=== PATIENT | female | born 2000 | race African-American/Black ===

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

== ENCOUNTER 2021-02-01 12:15 | Observation (INO) | payer OTHER, MEDICAID, SELFPAY ==
[2021-02-01] VITALS (11 sets, daily range): BP systolic 119–145; BP diastolic 68–100; PULSE 73–108; RESP 18–23; TEMP 36–37.6; O2SAT 96–100; BMI 36.8; BMI 36.9; BMI 35.9
--- NOTE | 2021-02-01 12:30 | ED.RN ---
dr. briceno notified of pt sx and sx onset at 1224, reports he will be in to evaluate pt, not to call stroke alert at this time.
[2021-02-01 12:35] LABS: Bedside Glucose 90 mg/dL (70-110)
--- NOTE | 2021-02-01 12:41 | EKG12_ITS ---
Test Reason : STROKE TEAM Blood Pressure : / mmHG Vent. Rate : 069 BPM Atrial Rate : 069 BPM P-R Int : 132 ms QRS Dur : 080 ms QT Int : 390 ms P-R-T Axes : 031 003 003 degrees QTc Int : 417 ms Normal sinus rhythm Normal ECG Confirmed by DARINEL MACIAS, LESLIE ([id number]), make up editor DONALD VALDES ([id number]) on 02/06/2021 2:18:50 PM Referred By: KELY Confirmed By:LESLIE TENA MD
--- NOTE | 2021-02-01 12:41 | CT_ITS ---
STUDY: CT HEAD STROKE PROTOCOL W/O CONTRAST INJECTION REASON FOR EXAM: Female, 20 years old. Neuro deficit, acute, stroke suspected RADIATION DOSAGE (If Supplied By Facility): CTDIvol = ( 44.99 ) mGy, DLP = ( 748.30 ) mGycm TECHNIQUE: Transaxial CT imaging of the brain was performed without administration of intravenous contrast material. Individualized dose optimization techniques were used for this CT. COMPARISON: Comparison is made with prior examination dated 10/09/2011. FINDINGS: Normal soft tissue structures. Normal calvarium. Normal size ventricles and extra-axial spaces for the patient''s age. Normal white matter tracts of the cerebral hemispheres. Normal basal ganglia and thalami. Normal brainstem. Normal cerebellum. There is no intracranial hemorrhage. There are no findings of an acute ischemic infarction. Minimal mucosal thickening along the posterior medial inferior aspect of the right maxillary sinus. CT/STROKE Brain/Head without Cont IMPRESSION: Normal unenhanced CT scan of the brain. N.B. : The above information has been verbally conveyed by Brock Augustin MD to RICKY EDGE on 02/01/2021 12:53:46 (ET). Electronically Signed: Brock Augustin MD at 12:57 EST , Service support ,
--- NOTE | 2021-02-01 12:41 | RAD_ITS ---
STUDY: X-RAY CHEST REASON FOR EXAM: Female, 20 years old. Neuro deficit, acute, stroke suspected TECHNIQUE: Single AP portable view of the chest. COMPARISON: Comparison is made with prior study dated 03/11/2012. FINDINGS: EKG electrodes are seen. The lungs are clear and expanded. There is no demonstrated pleural abnormality. Normal size heart. Normal mediastinum and tiffanie. Normal visualized pulmonary arteries. Normal visualized aortic arch and descending thoracic aorta. Normal visualized thoracic spine. Normal visualized ribs, clavicles, and shoulders. There is no demonstrated abnormality of the visualized soft tissue structures of the upper abdomen. RAD/Chest 1 View IMPRESSION: Normal x-ray examination of the chest. Electronically Signed: Brock Augustin MD at 13:50 EST , Service support ,
--- NOTE | 2021-02-01 12:41 | CT_ITS ---
STUDY: CTA HEAD AND NECK WITH CONTRAST REASON FOR EXAM: Female, 20 years old. Neuro deficit, acute, stroke suspected RADIATION DOSAGE (If Supplied By Facility): CTDIvol = ( 17.94 ) mGy, DLP = ( 687.30 ) mGycm TECHNIQUE: CT angiography was performed with a multi-detector CT scanner. Data acquisition was obtained from the skull base through the vertex following intravenous administration of IV 75mL [id number]-[id number]. MIP images were reconstructed from the axial data set. Post-processing of the angiographic images was performed, with multiplanar reformation and 3D reconstruction. Individualized dose optimization techniques were used for this CT. COMPARISON: No relevant priors. FINDINGS: Normal bilateral petrous carotid arteries. Normal right cavernous carotid artery with a normal supraclinoid bifurcation. Normal left cavernous carotid artery with a normal supraclinoid bifurcation. Normal right A1 segments of the anterior cerebral artery. Normal left A1 segments of the anterior cerebral artery. Normal intact anterior communicating artery (ACOM). Normal bilateral A2 segments of the anterior cerebral arteries. Normal right M1 and M2 segments of the middle cerebral arteries, with a normal M1 bifurcation. Normal left M1 and M2 segments of the middle cerebral arteries, with a normal M1 bifurcation. Normal right posterior communicating artery (PCOM). Normal left posterior communicating artery (PCOM). Normal bilateral vertebral arteries. Normal basilar artery with a normal basilar bifurcation. The visualized bilateral superior cerebellar (SCA) arteries are normal. Normal bilateral P1, P2 and visualized P3 segments of the posterior cerebral arteries. There is no demonstrated aneurysm of the [place] of [place]. There is no demonstrated abnormality of the visualized brain. AORTIC ARCH: Normal visualized aortic arch. Normal origins of the brachiocephalic, left common carotid, and left subclavian arteries. RIGHT CAROTID ARTERIES: Normal right common carotid artery (CCA). Normal right common carotid bulb. Normal origin of the right internal carotid (ICA) artery without a hemodynamically significant stenosis. Normal visualized cervical portion of the right internal carotid artery. Normal origin of the right external carotid artery (ECA). LEFT CAROTID ARTERIES: Normal left common carotid artery (CCA). Normal left common carotid bulb. Normal origin of the left internal carotid (ICA) artery without a hemodynamically significant stenosis. Normal visualized cervical portion of the left internal carotid artery. Normal origin of the left external carotid artery (ECA). VERTEBRAL ARTERIES: Normal bilateral vertebral arteries. CT/STROKE CTA Head AND Neck W/Con IMPRESSION: Normal CTA Head and neck with contrast. N.B. : The above information has been verbally conveyed by Brock Augustin MD to RICKY EDGE on 02/01/2021 13:03:53 (ET). Electronically Signed: Brock Augustin MD at 13:05 EST , Service support ,
[2021-02-01 12:50] LABS: Absolute Lymphocyte Count 1.48 X10^3/uL (0.83-4.51); Absolute Neutrophil Count 4.4 X10^3/uL (2.0-7.7); Basophil# 0.05 X10^3/uL; Basophil% 0.8 % (0-1); Eosinophil# 0.12 X10^3/uL; Eosinophils% 1.8 % (0-5); Hematocrit 40.5 % (37-47); Lymphocyte # 1.48 X10^3/ul (4.0); Lymphocyte % 22.7 % (19-41); Mean Corp Hgb Conc 32.1 g/dL (32-36); Mean Corpuscular Hgb 28.1 pg (27.0-32.0); Mean Corpuscular Volume 87.5 fL (81-99); Mean Platelet Vol. 9.4 fl (6.2-12.0); Monocyte# 0.49 X10^3/uL; Monocyte% 7.5 % (0-10); NRBC Flagged by Analyzer 0 % (0-5); Neutrophil # 4.35 X10^3/uL (2.7-7.7); Neutrophil % 66.9 % (47-70); Platelet Count 360 K/mm3 (150-450); RBC Distribution Width CV 13.2 % (11.6-14.6); RBC Distribution Width SD 42.3 fl (35.1-43.9); Red Blood Count 4.63 M/mm3 (4.2-5.4); White Blood Count 6.5 K/mm3 (4.4-11.0)
[2021-02-01 12:58] LABS: Prothrombin Time (Protime)PT. 13.2 SECONDS (11.7-14.9)
[2021-02-01 12:59] LABS: Partial Thromboplast Time 28.4 Seconds (24.1-36.2)
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
[2021-02-01 13:07] LABS: Anion Gap 5 (5-15); BUN 10 mg/dL (7-18); BUN/Creat Ratio 12.2 RATIO (10-20); Calcium,Total 8.6 mg/dL (8.5-10.1); Chloride 110 mmol/L (98-107); Creatinine, Serum 0.82 mg/dL (0.55-1.02); EST Glomerular Filtration Rate 95 mL/min (>60); Est Glom Filt Rate - Afr Amer 115 mL/min (>60); Estimated Creatinine Clearance 129.96 ml/min; Glucose 95 mg/dL (74-106); Sodium Level 140 mmol/L (136-145)
--- NOTE | 2021-02-01 14:47 | ED.RN ---
per dr. briceno, [facility] can be discontinued.
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
--- NOTE | 2021-02-01 15:42 | MRI_ITS ---
STUDY: MRI BRAIN WITHOUT CONTRAST REASON FOR EXAM: Female, 20 years old. right sided weakness TECHNIQUE: Standardized multiplanar fat and water weighted pulse sequences were obtained. COMPARISON: CT of the brain 02/01/2021. FINDINGS: Normal size of the ventricles and extra-axial spaces for the patient''s age. Normal white matter tracts of the supratentorial brain. Normal bilateral basal ganglia. Normal thalami. There is no extra-axial fluid accumulation. Normal flow voids within the major intracranial circulation suggesting patency by spin echo criteria. Normal sella turcica, pituitary gland, infundibular stalk, optic chiasm and hypothalamus. Normal tectal plate and pineal gland. Normal midbrain, roberto carlos and medulla. Normal cerebellum. Normal basal cisterns. Normal bilateral temporal bones. Normal bilateral internal auditory canals. No demonstrated orbital abnormality, within the constraints of a routine brain study. Minor mucosal thickening in the right maxillary sinus Normal calvarium and skull base. Normal visualized soft tissue structures. Normal visualized upper cervical spine. MRI/Brain without Contrast IMPRESSION: Normal unenhanced MRI of the brain. Minor right maxillary sinus disease Electronically Signed: David Alberts MD at 19:35 EST , Service support ,
--- NOTE | 2021-02-01 15:53 | CHAPLAIN ---
Type of Pastoral Visit ___ Initial Visit ___ Follow-up Visit ___ On-call Visit ___ General Patient Visit ___ Spiritual Assessment ___ Family Conference ___ Bereavement _x__ Rapid Response ___ Code Blue ___ Other (describe below) Pastoral Care Referral From ___ Patient ___ Family ___ Nurse ___ Physician ___ Brand Activation Manager ___ .Net Developer _x__ Other (describe below) Sacrament/Intervention ___ Active listening ___ Anointing ___ Methodist ___ Bereavement ___ Communion ___ Judy exploration ___ ___ Life review ___ Prayer ___ Reconciliation ___ Sacrament of Sick ___ Supportive presence ___ Wedding ___ Other (describe below) Pastoral Comments response to stroke alert; pt is alert and awake and is being transported for CT; no family available; no other needs at this time
[2021-02-01 16:09] LABS: Internal QC Validated? YES +Cl - CLEAR BKGD; Pregnancy, Serum, hCG Quali. NEGATIVE Negative
[2021-02-01] MEDS: Acetaminophen 325 MG Tablet 650 MG PO (16:56)
[2021-02-01] MEDS: Ondansetron 4 MG/2 ML Vial IV (16:56)
[2021-02-01] MEDS: 0.9% Saline Lock 10 ML Syringe IV (17:01)
[2021-02-01] MEDS: lamoTRIgine 25 MG Tablet PO (22:27)
[2021-02-01] MEDS: FLUoxetine 10 MG Capsule PO (22:27)
[2021-02-01] MEDS: DiphenhydrAMINE 50 MG/ML Syringe IV (23:31)
[2021-02-01] MEDS: Metoclopramide 10 MG/2 ML Vial IV (23:31)
[2021-02-02] VITALS (7 sets, daily range): BP systolic 95–139; BP diastolic 59–81; PULSE 70–103; RESP 14–16; TEMP 36.4–37; O2SAT 97–100
[2021-02-02 06:40] LABS: Cholesterol 133 mg/dL (200); High Density Lipoprotein 34 mg/dL; Thyroid Stim Hormone (TSH) 1.67 uIU/mL (0.358-3.74); Triglycerides 82 mg/dL; Very Low Density Lipoprotein 16 mg/dL (5-40)
--- NOTE | 2021-02-02 11:52 | TELEMED_ITS ---
[facility] Tele[facility] has confirmed receipt of a request for visit. This document confirms receipt of the order initiating the consult. To find the results of the consultation, please view the patient's reports for the scanned Telemed Consult.
--- NOTE | 2021-02-02 11:53 | DCINST_ITS ---
- Discharge Diagnoses Current Active Problems: Current Active and Chronic Problems (Last Updated 02/01/21 @ 15:[address] Karthik Rider DO) Right sided weakness (Acute) Reason(s) for Visit for Discharge Instructions: Right sided numbness You will use the following diet at home:: Regular Your food should be the consistency of: Regular Your liquids should be the consistency of: Regular/Thin Discharge Activity: Return to Normal Activity Additional Instructions: Continue to take all your medications as prescribed. Allergies/Adverse Reactions: Allergies fluoxetine [From Prozac] Allergy (Verified 02/01/21 12:15) Other Penicillins Allergy (Verified 02/01/21 12:15) Rash Medications to take at Discharge Albuterol IH (ProAir) [Proair Hfa] 1 - 2 puff INHALATION Q4H PRN PRN 12/17/20 Fluoxetine [Prozac] 10 mg PO DAILY 12/17/20 Lamotrigine [Lamictal] 25 mg PO DAILY 02/01/21 Primary Care Physician: Debra Smith GAS APPLIANCE SERVICER, GAS APPLIANCE SERVICER-C [Primary Care Provider] - Please follow up with your Primary Care Physician in: within 1-2 weeks Test Results: Test results from this visit will be discussed in further detail at your follow- up appointment, if applicable. Please Follow Up With: Fidencio Steiner MD When: within 2 weeks Proposed Discharge Date: 02/02/21
--- NOTE | 2021-02-02 13:45 | CASEMGMT ---
Social Work SW met with pt in room and introduced self and role of SW. Pt presenting with stroke like symptoms. PHQ9 depression assessment completed with pt score of 0/27. Pt denies any depression or thoughts of harming themselves nor concerns with returning home. SW educated pt on association of stroke and depression and encouraged pt that if she feels a decline in mood to contact PCP or counselor. Pt voicing financial concerns at this time. Pt is listed as having insurance however, pt states she recently when to PRN at her job and lost insurance eligibility. SW provided Medicaid information including application and phone number to apply online. Patient Financial Services updated on pt insurance situation. SW provided resources for prescription assistance. Pt is appreciative of information. No further SW needs at this time. CAROLINE Leblanc
--- NOTE | 2021-02-13 13:13 | DS.PCM_ITS ---
Discharge Date and Diagnosis - Problem List Patient Problems: Active and Suspected Problems (Last Updated 02/01/21 @ 15:[address] Karthik Rider DO) Right sided weakness (Acute) Date of Admission: 02/01/21 Date of Discharge: 02/02/21 - Primary Discharge Diagnosis Acute Problems: Active Problems (Last Updated 02/01/21 @ 15:[address] Karthik Rider DO) Right sided weakness (Acute), likely secondary to atypical migraine versus conversion disorder Acute stroke ruled out Hospital Course and Treatment Imaging Results: Clinical Impression(s) from Imaging Studies Brain CT 02/01/21 12:41 IMPRESSION: Normal unenhanced CT scan of the brain. N.B. : The above information has been verbally conveyed by Brock Augustin MD to RICKY EDGE on 02/01/2021 12:53:46 (ET). Electronically Signed: Brock Augustin MD at 12:57 EST , Service support , ADDENDUM: 02/01/21 1304 IMPRESSION: Normal unenhanced CT scan of the brain. N.B. : The above information has been verbally conveyed by Brock Augustin MD to RICKY EDGE on 02/01/2021 12:53:46 (ET). Electronically Signed: Brock Augustin MD at 12:57 EST , Service support , Chest X-Ray 02/01/21 12:41 IMPRESSION: Normal x-ray examination of the chest. Electronically Signed: Brock Augustin MD at 13:50 EST , Service support , Head/Neck CTA 02/01/21 12:41 IMPRESSION: Normal CTA Head and neck with contrast. N.B. : The above information has been verbally conveyed by Brock Augustin MD to RICKY EDGE on 02/01/2021 13:03:53 (ET). Electronically Signed: Brock Augustin MD at 13:05 EST , Service support , ADDENDUM: 02/01/21 1312 IMPRESSION: Normal CTA Head and neck with contrast. N.B. : The above information has been verbally conveyed by Brock Augustin MD to RICKY EDGE on 02/01/2021 13:03:53 (ET). Electronically Signed: Brock Augustin MD at 13:05 EST , Service support , Brain MRI 02/01/21 15:42 IMPRESSION: Normal unenhanced MRI of the brain. Minor right maxillary sinus disease Electronically Signed: David Alberts MD at 19:35 EST , Service support , Operations: None Procedures: None Summary of Care Provided: The patient is a 21 year old F with past medical history of migraine headaches, traumatic brain injury, anxiety disorder who presented with 1 day history of headache and some right-sided weakness. Patient went to bed the night before with a headache and right-sided weakness. Her headache was similar to what she does have from time to time. She woke up on the morning of admission, with persistent right-sided weakness and resolved headache. The weakness involves her right face arm and leg. It persisted resulting in her into the emergency department. CT of the head as well as CTA of the head and neck was unremarkable. Patient was seen by [facility] neurology who advised admission and MRI. Patient admits to being under a lot of psychosocial stress. She has a test coming up the next day. She was admitted to the telemetry floor with no acute events. She underwent MRI of the brain that was unremarkable. Patient admitted to feeling much better and was referred to follow-up in the outpatient with outpatient neurology. Patient Problems: Active and Suspected Problems (Last Updated 02/01/21 @ 15:[address] Karthik Rider DO) Right sided weakness (Acute) Subjective: On the day of discharge, patient was seen and examined. Denies any new complaints. All of her presenting right sided weakness have resolved. - Physical Exam Vitals/I&O's: Vital Signs Temp Pulse Resp BP Pulse Ox 97.8 F 103 H 14 139/60 H 98 02/02/21 16:00 02/02/21 16:00 02/02/21 16:00 02/02/21 16:00 02/02/21 16:00 Oxygen Delivery Method Room Air Weight: 72.711 kg Body Mass Index (BMI) 35.9 Finger Stick Blood Glucose 90 General: Alert, Oriented x3, Cooperative, No apparent distress HEENT: Atraumatic, PERRLA, EOMI, Normocephalic Oral: Moist Mucosa Neck: Supple Lungs: Clear to auscultation, Normal air movement Cardiovascular: Regular rate, Regular Rhythm, Normal S1, Normal S2, No murmurs Abdomen: Bowel Sounds Present, Soft, Non Tender, Non-Distended, No Hepato- splenomegaly Extremities: No edema Skin: No rashes Musculoskeletal: No Tenderness to Palpation of Joints or Extremities Lymphatic: No Cervical, Supraclavicular, or Inguinal Adenopathy Neurological: Cranial nerves II-XII grossly intact, Neuro grossly intact Psych/Mental Status: Normal Affect, Appropriate Discharge Diet: Low fat/ Low Cholesterol, 2000 mg Sodium Diet Discharge Activity: Return to Normal Activity Home Medications: Medications to take at Discharge Albuterol IH (ProAir) [Proair Hfa] 1 - 2 puff INHALATION Q4H PRN PRN 12/17/20 Fluoxetine [Prozac] 10 mg PO DAILY 12/17/20 Lamotrigine [Lamictal] 25 mg PO DAILY 02/01/21 Primary Care Physician: Debra Smith FILLER BLENDER, FILLER BLENDER-C [Primary Care Provider] - Please follow up with your Primary Care Physician in: within 1-2 weeks Please Follow Up With: Fidencio Steiner MD When: within 2 weeks Disposition: Home Minutes spent on discharge:: 40 Patient Condition:: Stable Medical Necessity - Tobacco Use Smoking Status: Never smoker Tobacco Use: Secondhand Meaningful Use Info Meaningful Use Diagnoses (Choose all that apply): None applicable OBSV E&M: 50856 Observation care discharge
== END 2021-02-02 11:51 | disposition home or self-care (01) ==
LOC: ED 13:50 → PCU 15:20
PROVIDERS: Emergency Provider Emergency Medicine; PCP Nurse Practitioner Family; Visit Provider Internal Medicine
DX: R53.1 Weakness (principal); R20.0 Anesthesia of skin; F41.9 Anxiety disorder, unspecified; Z87.820 Personal history of traumatic brain injury; Z79.899 Other long term (current) drug therapy; F32.9 Major depressive disorder, single episode, unspecified
CPT/HCPCS: 36415; 70450; 70496; 70498; 70551; 71045; 80048; 80061; 82962; 84443; 84484; 84703; 85025; 85610; 85730; 92610; 93005; 94762; 96374; 96375; 96376; 99218; 99284; Q9967; A4216; G0378; J2405

== ENCOUNTER 2021-07-04 21:50 | Emergency (ER) | payer MEDICAID, SELFPAY ==
[2021-02-01 16:37] VITALS: BMI 35.9
[2021-07-04 21:51] VITALS: BP 129/81; PULSE 84; RESP 16; TEMP 36.8; O2SAT 100; BMI 39.4
--- NOTE | 2021-07-04 22:04 | EDS_ITS ---
HPI History of Present Illness Chief Complaint: Numb/Ting Informant: patient Narrative Narrative: Patient is a 21-year-old female with a past medical history of atypical migraines who is currently 3 months who presents to the emergency department for feeling numbness and tingling all over. She states that this started around 2 hours prior to coming in. She is never had this happen before. She denies any significant headache associated with this. No vision change. She denies any chest pain, shortness of breath or heart palpitations. No back pain. No urinary symptoms. Her symptoms have not been unilateral. She does not know any aggravating or relieving symptoms. She has not tried anything for this. [facility] Medical History (Updated 07/04/21 @ 22:[address] Kirt Griffin DO) Anxiety Depression Diabetes Migraine TBI (traumatic brain injury) Home Medications albuterol sulfate 1 - 2 puff INHALATION Q4H PRN PRN 12/17/20 [History Last Taken Unknown] fluoxetine 10 mg PO DAILY 12/17/20 [History Last Taken 01/31/21] lamotrigine 25 mg PO DAILY 02/01/21 [History Last Taken 01/31/21] Allergy/AdvReac Type Severity Reaction Status Date / Time fluoxetine [From Prozac] Allergy Other Verified 02/01/21 12:15 Penicillins Allergy Rash Verified 02/01/21 12:15 Social History Smoking Status: Never smoker ROS ROS ED Constitutional Constitutional ED: Denies chills or fever(s) Eyes Eyes: Denies change in vision ENT ENT ED: Denies epistaxis or rhinorrhea Cardiovascular Cardiovascular: Denies chest pain or palpitations Respiratory/Chest Respiratory/Chest: Denies cough or dyspnea Gastrointestinal Gastrointestinal: Denies abdominal pain, diarrhea, nausea or vomiting Genitourinary Genitourinary ED: Denies dysuria, hematuria or urinary frequency Musculoskeletal Musculoskeletal: Denies back pain or neck pain Integumentary Denies rash Neurologic Neurologic: Reports paresthesias; Denies dizziness, headache(s) or weakness EXAM Physical Exam Const Vital Signs: 07/04/21 21:51 07/04/21 22:30 07/04/21 23:23 Temperature 98.2 F Temperature Source Oral Pulse Rate 84 83 89 Respiratory Rate 16 18 16 Blood Pressure 129/81 H 138/99 H 129/91 H Blood Pressure Mean 97 112 Pulse Ox 100 95 97 Oxygen Delivery Method Room Air Positive well nourished and well developed General Appearance ED: well developed and NAD HEENT Reports normocephalic, head/scalp atraumatic and moist mucous membranes Eyes PERRL and EOMs intact bilaterally Neck supple Resp normal respiratory effort and clear to auscultation bilaterally Auscultation: Negative for rales, rhonchi or wheezes Cardio regular rate, regular rhythm and no murmurs GI normal to inspection, nondistended, normoactive bowel sounds and non-tender Palpation: soft; Negative for guarding or rebound tenderness present Extremity normal to inspection General Extremety ED: Negative for edema or tenderness General Extremity: Negative for edema Neuro oriented x3, CN's II-XII intact bilaterally and no sensory deficits noted Sensorium / Orientation: alert Motor Exam: strength 5/5 throughout Psych mental status grossly normal Skin no rashes or lesions noted MDM MDM MDM Narrative Medical decision making narrative: Patient presents to the emergency department for numbness and tingling diffusely over her body. On arrival to the ED vital signs within normal limits. She is currently 3 months . She states that she has not had any issues with this except for nausea. She has a benign physical exam without any focal neurological deficits. She does have a history of atypical migraines but not having a headache at this time. Patient's lab work shows a mild elevation of her white blood cell count but she has no infectious symptoms. The rest of her lab work did not reveal a sign ificant acute abnormality. No electrolyte disturbance. No elevation of liver enzymes. Urine does not show any signs of infection or proteinuria. She has a benign physical exam. On reevaluation she is resting comfortably. This time will discharge home in stable condition. Return precautions are reviewed with her. She otherwise is to follow-up with her PCP. Lab Data Labs: Laboratory Results - last 24 hr 07/04/21 07/04/21 07/04/21 22:13 22:13 22:19 WBC 12.1 H RBC 4.43 Hgb 12.5 Hct 38.6 MCV 87.1 MCH 28.2 MCHC 32.4 RDW Std Deviation 42.2 RDW Coeff of Raj 13.2 Plt Count 387 MPV 9.9 Immature Gran % (Auto) 0.300 Neut % (Auto) 73.5 H Lymph % (Auto) 17.4 L Divide % (Auto) 7.4 Eos % (Auto) 1.1 Baso % (Auto) 0.3 Absolute Neuts (auto) 8.9 H Absolute Lymphs (auto) 2.10 Nucleated RBC % 0 Sodium 135 L Potassium 3.5 Chloride 104 Carbon Dioxide 22.0 Anion Gap 9 BUN 9 Creatinine 0.63 Estim Creat Clear Calc 179.67 Est GFR (MDRD) Af Amer 154 Est GFR (MDRD) Non-Af 127 BUN/Creatinine Ratio 14.2 Glucose 87 Calcium 9.0 Total Bilirubin 0.30 AST 27 ALT 48 Alkaline Phosphatase 78 Total Protein 8.1 Albumin 4.1 Globulin 4.0 Albumin/Globulin Ratio 1.0 Urine Color Yellow Urine Clarity Clear Urine pH 6.5 Ur Specific [place] 1.010 Urine Protein Negative Urine Glucose (UA) Normal Urine Ketones Negative Urine Occult Blood Negative Urine Nitrite Negative Urine Bilirubin Negative Urine Urobilinogen Normal Ur Leukocyte Esterase Negative Urine RBC 0 SEEN Urine WBC 0 SEEN Ur Squamous Epith Cells 0-5 SEEN Urine Bacteria 0 SEEN Urine Mucus 0 SEEN Discharge Plan Triage Chief Complaint: Numb/Ting ED Provider: Kirt Griffin Dx/Rx/DC Orders Clinical Impression: Paresthesias Instructions: ED Paraesthesias Prescriptions: No Action fluoxetine 10 MG capsule 10 mg PO DAILY RF: 0 albuterol sulfate 1 PUFF inhaler 1 - 2 puff INHALATION Q4H PRN PRN (Reason: Wheezing) RF: 0 lamotrigine 25 MG tablet 25 mg PO DAILY RF: 0 Primary Care Provider: Debra Smith NP Referrals: Debra Smith NP, STUDIO MODEL-C [Primary Care Provider] - 3-5 Days Disposition Disposition: Home, Self Care Discharge Date/Time: 07/04/21 23:24
[2021-07-04 22:21] LABS: Absolute Neutrophil Count 8.9 X10^3/uL (2.0-7.7); Basophil# 0.04 X10^3/uL; Basophil% 0.3 % (0-1); Eosinophil# 0.13 X10^3/uL; Eosinophils% 1.1 % (0-5); Hematocrit 38.6 % (37-47); Hemoglobin 12.5 g/dL (12.0-15.0); Lymphocyte % 17.4 % (19-41); Mean Corp Hgb Conc 32.4 g/dL (32-36); Mean Corpuscular Hgb 28.2 pg (27.0-32.0); Mean Corpuscular Volume 87.1 fL (81-99); Mean Platelet Vol. 9.9 fl (6.2-12.0); Monocyte% 7.4 % (0-10); NRBC Flagged by Analyzer 0 % (0-5); Neutrophil # 8.89 X10^3/uL (2.7-7.7); Neutrophil % 73.5 % (47-70); Platelet Count 387 K/mm3 (150-450); RBC Distribution Width CV 13.2 % (11.6-14.6); RBC Distribution Width SD 42.2 fl (35.1-43.9); Red Blood Count 4.43 M/mm3 (4.2-5.4); White Blood Count 12.1 K/mm3 (4.4-11.0)
[2021-07-04 22:26] LABS: Bacteria 0 SEEN /hpf (None Seen); Mucous, Urine 0 SEEN /hpf (<or=2+); Red Blood Cells-Urine 0 SEEN /hpf (0-5); White Blood Cells 0 SEEN /hpf (0-5)
[2021-07-04 22:30] VITALS: BP 138/99; PULSE 83; RESP 18; O2SAT 95
[2021-07-04 22:31] LABS: Color, Urine Yellow (Yellow); Glucose, Dipstick Normal (Normal); Ketone-Dipstick Negative (Negative); Leukocyte Esterase-Dipstick Negative /ul (Negative); Nitrite-Dipstick Negative (Negative); Occult Blood-Urine Negative /ul (Negative); Protein-Dipstick Negative (Negative); Urine Bilirubin Dipstick Negative (Negative); Urine Clarity Clear (Clear); Urine Urobilinogen Normal (Normal); Urine pH 6.5 (5.0 - 8.0)
[2021-07-04 22:37] LABS: Squamous Epithelial Cells - UA 0-5 SEEN /hpf (5-10)
[2021-07-04 22:38] LABS: AST(SGOT) 27 U/L (15-37); Alanine Aminotransfer ALT/SGPT 48 U/L (13-56); Albumin, Serum 4.1 g/dL (3.2-5.0); Alkaline Phosphatase 78 U/L (45-117); Anion Gap 9 (5-15); BUN 9 mg/dL (7-18); BUN/Creat Ratio 14.2 RATIO (10-20); Chloride 104 mmol/L (98-107); Creatinine, Serum 0.63 mg/dL (0.55-1.02); EST Glomerular Filtration Rate 127 mL/min (>60); Est Glom Filt Rate - Afr Amer 154 mL/min (>60); Estimated Creatinine Clearance 179.67 ml/min; Glucose 87 mg/dL (74-106); Potassium 3.5 mmol/L (3.5-5.1); Protein, Total 8.1 g/dL (6.4-8.2); Sodium Level 135 mmol/L (136-145)
[2021-07-04 23:23] VITALS: BP 129/91; PULSE 89; RESP 16; O2SAT 97
== END 2021-07-04 23:24 | disposition home or self-care (01) ==
PROVIDERS: Emergency Provider Emergency Medicine; PCP Nurse Practitioner Family
DX: R20.2 Paresthesia of skin (principal); E11.9 Type 2 diabetes mellitus without complications; F32.9 Major depressive disorder, single episode, unspecified; F41.9 Anxiety disorder, unspecified; Z79.899 Other long term (current) drug therapy
CPT/HCPCS: 80053; 81001; 85025; 99285; A4216

== ENCOUNTER 2021-08-31 13:40 | Emergency (ER) | payer MEDICAID, SELFPAY ==
[2021-08-31 13:40] VITALS: BP 151/77; PULSE 104; RESP 18; TEMP 37.2; O2SAT 99; BMI 38.0
[2021-08-31 14:55] VITALS: BP 132/90; PULSE 95; RESP 18; O2SAT 98
--- NOTE | 2021-08-31 15:02 | EDS_ITS ---
HPI History of Present Illness Chief Complaint: Nausea/Vomiting Informant: patient Narrative Narrative: 17 weeks gestation overseen by Dr. Dumont in [place] presents nausea vomiting diarrhea starting this morning. Total of 8 episodes of vomiting last time was 2 hours ago. Only tried a little fluids this morning. Took Phenergan this morning with no relief. 2 bouts of diarrhea. Nonbloody. Ate pork chops yesterday with her significant other and he is not sick. Denies abdominal pain. Denies headache. Denies cough. Denies urinary symptoms. Denies any vaginal symptoms. History of morning sickness with her . Blood pressure elevated in triage initially, she states has not been told with elevated blood pressure during . Reports was seen 2 days ago at [place] ED due to upper abdominal cramping resolved. She states urine and heart tones were done at the facility. Prior similar symptoms: Yes PFSH PFSH Medical History Anxiety Depression Diabetes Migraine TBI (traumatic brain injury) Home Medications albuterol sulfate 1 - 2 puff INHALATION Q4H PRN PRN 12/17/20 [History Last Taken Unknown] vitamin no.138-folic acid 400 mcg-dha 25 mg chewable tablet 1 tab PO DAILY tab 07/10/21 [History Last Taken Unknown] sertraline 50 mg tablet 25 mg PO DAILY tab 07/10/21 [History Last Taken Unknown] metoclopramide HCl [Reglan] 10 mg PO Q6H PRN #10 tab 08/31/21 [Rx Last Taken Unknown] promethazine 25 mg [place] Q6H PRN #10 ea 08/31/21 [Rx Last Taken Unknown] Allergy/AdvReac Type Severity Reaction Status Date / Time Penicillins Allergy Rash Verified 08/31/21 13:44 Surgical History History of appendectomy Social History adopted: Yes Smoking Status: Never smoker Electronic Cigarette Use: not used second hand exposure: No alcohol intake: never substance use type: does not use ROS ROS ED Constitutional Constitutional ED: Denies chills, fever(s) or sweats Eyes Eyes: Denies change in vision ENT ENT ED: Denies dysphagia or sore throat Cardiovascular Cardiovascular: Denies chest pain, leg edema, palpitations or racing heartbeat Respiratory/Chest Respiratory/Chest: Denies cough, dyspnea or dyspnea on exertion Gastrointestinal Gastrointestinal: Reports diarrhea, nausea and vomiting; Denies abdominal pain Genitourinary Genitourinary ED: Denies dysuria, hematuria or urinary frequency Musculoskeletal Musculoskeletal: Denies back pain, extremity pain or neck pain Integumentary Denies rash or wounds Neurologic Neurologic: Denies headache(s), paresthesias or weakness EXAM Physical Exam Const Vital Signs: 08/31/21 13:40 08/31/21 14:55 08/31/21 16:05 Temperature 98.9 F Temperature Source Temporal Pulse Rate 104 H 95 85 Respiratory Rate 18 18 16 Blood Pressure 151/77 H 132/90 H Blood Pressure Mean 101 104 Pulse Ox 99 98 98 Oxygen Delivery Method Room Air Room Air Room Air 08/31/21 18:04 Temperature Temperature Source Pulse Rate Respiratory Rate 16 Blood Pressure 129/91 H Blood Pressure Mean Pulse Ox Oxygen Delivery Method Positive well nourished and well developed General Appearance ED: well developed and NAD HEENT Reports moist mucous membranes normocephalic and atraumatic Eyes PERRL, EOMs intact bilaterally and conjunctivae normal General Eye ED: Yes normal appearance of both eyes Neck no lymphadenopathy and supple General: Negative for tenderness Chest Wall Chest: Negative for tenderness Resp normal respiratory effort and normal air movement Effort and Inspection: symmetric chest movement; Negative for respiratory distress Cardio regular rate, regular rhythm and no murmurs Peripheral Pulses: pulses 2+ throughout GI normal to inspection, nondistended, normoactive bowel sounds and non-tender Palpation: Negative for guarding or rebound tenderness present Back/Spine no CVA tenderness and no thoracic nor lumbar tenderness Extremity normal to inspection General Extremety ED: Negative for edema or tenderness General Extremity: Negative for edema Neuro oriented x3 and no sensory deficits noted Sensorium / Orientation: awake and alert Skin no rashes or lesions noted and no wounds MDM MDM MDM Narrative Medical decision making narrative: Patient nontender abdomen. She had transient elevated blood pressure initially in triage. Recheck 130s systolic. She denied any headache today. heart tones 158. Electrolytes are normal. Urine noted ketones. She was given a liter of fluids and Reglan. To drink oral intake had transient nausea return. However no vomiting. Additional Reglan was given. She felt much better. Additional prescription for Phenergan suppositories and oral Reglan was used. Discussed with patient follow with her OB and discussing her elevated blood pressure. She has no hypertension history. She is discharged with outpatient follow-up. All questions were answered. Lab Data Attestation: I reviewed the patient's lab results. Labs: Laboratory Results - last 24 hr 08/31/21 08/31/21 15:03 15:35 Sodium 136 Potassium 3.9 Chloride 108 H Carbon Dioxide 19.0 L Anion Gap 9 BUN 7 Creatinine 0.53 L Estim Creat Clear Calc 205.82 Est GFR (MDRD) Af Amer 188 Est GFR (MDRD) Non-Af 155 BUN/Creatinine Ratio 13.2 Glucose 74 Calcium 9.1 Urine Color Yellow Urine Clarity Sl. Cloudy Urine pH 5.0 Ur Specific [place] 1.025 Urine Protein 30 H Urine Glucose (UA) Normal Urine Ketones 150 A* Urine Occult Blood Negative Urine Nitrite Negative Urine Bilirubin Negative Urine Urobilinogen Normal Ur Leukocyte Esterase Negative Urine RBC 0 SEEN Urine WBC 0 SEEN Ur Squamous Epith Cells 0-5 SEEN Amorphous Sediment 1+ URATE Urine Bacteria 0 SEEN Urine Mucus RARE Discharge Plan Triage Chief Complaint: Nausea/Vomiting ED Provider: Syed Peter Dx/Rx/DC Orders Clinical Impression: Nausea and vomiting during prior to 22 weeks gestation, Elevated blood pressure complicating in second trimester, antepartum Instructions: ED Vomiting (Adult) Prescriptions: New promethazine 25 mg suppository 25 mg [place] Q6H PRN (Reason: vomiting) Qty: 10 RF: 0 metoclopramide HCl [Reglan] 10 mg tablet 10 mg PO Q6H PRN (Reason: nausea and vomiting) Qty: 10 RF: 0 No Action Alive 400 mcg- 25 mg tablet,chewable 1 tab PO DAILY RF: 0 sertraline 50 mg tablet 25 mg PO DAILY RF: 0 albuterol sulfate 1 PUFF inhaler 1 - 2 puff INHALATION Q4H PRN PRN (Reason: Wheezing) RF: 0 Primary Care Provider: Debra Smith NP Referrals: Debra Smith NP, FURNITURE SPRAYER-C [Primary Care Provider] - Activity Restrictions/Additional Instructions: Your initial blood pressure 151/77 on arrival in the ED. Improved after evaluation without intervention. Discussed with your OB on follow-up for close evaluation of blood pressure in . Disposition Disposition: Home, Self Care Discharge Date/Time: 08/31/21 18:05
[2021-08-31] MEDS: 0.9% Normal Saline 1,000 ML 1000 ML IV (15:18)
[2021-08-31] MEDS: Metoclopramide 10 MG/2 ML Vial 5 MG IV ×2 (15:22→17:08)
[2021-08-31 15:27] LABS: Anion Gap 9 (5-15); BUN 7 mg/dL (7-18); BUN/Creat Ratio 13.2 RATIO (10-20); Calcium,Total 9.1 mg/dL (8.5-10.1); Chloride 108 mmol/L (98-107); Creatinine, Serum 0.53 mg/dL (0.55-1.02); EST Glomerular Filtration Rate 155 mL/min (>60); Est Glom Filt Rate - Afr Amer 188 mL/min (>60); Estimated Creatinine Clearance 205.82 ml/min; Glucose 74 mg/dL (74-106); Potassium 3.9 mmol/L (3.5-5.1); Sodium Level 136 mmol/L (136-145)
[2021-08-31 15:45] LABS: Bacteria 0 SEEN /hpf (None Seen); Red Blood Cells-Urine 0 SEEN /hpf (0-5); White Blood Cells 0 SEEN /hpf (0-5)
[2021-08-31 16:05] VITALS: PULSE 85; RESP 16; O2SAT 98
[2021-08-31 16:07] LABS: Color, Urine Yellow (Yellow); Glucose, Dipstick Normal (Normal); Leukocyte Esterase-Dipstick Negative /ul (Negative); Nitrite-Dipstick Negative (Negative); Occult Blood-Urine Negative /ul (Negative); Protein-Dipstick 30 mg/dl (Negative); Specific Gravity, Urine 1.025 (1.002-1.030); Urine Bilirubin Dipstick Negative (Negative); Urine Clarity Sl. Cloudy (Clear); Urine Urobilinogen Normal (Normal)
[2021-08-31 16:12] LABS: Ketone-Dipstick 150 mg/dl (Negative)
[2021-08-31 16:43] LABS: Amorphous Sediment 1+ URATE; Mucous, Urine RARE /hpf (<or=2+); Squamous Epithelial Cells - UA 0-5 SEEN /hpf (5-10)
[2021-08-31 18:04] VITALS: BP 129/91; RESP 16
== END 2021-08-31 18:05 | disposition home or self-care (01) ==
PROVIDERS: Emergency Provider Emergency Medicine; PCP Nurse Practitioner Family
DX: O21.9 Vomiting of pregnancy, unspecified (principal); O26.892 Other specified pregnancy related conditions, second trimester; G43.909 Migraine, unspecified, not intractable, without status migrainosus; O99.342 Other mental disorders complicating pregnancy, second trimester; O99.352 Diseases of the nervous system complicating pregnancy, second trimester; F32.9 Major depressive disorder, single episode, unspecified; R03.0 Elevated blood-pressure reading, without diagnosis of hypertension; Z3A.17 17 weeks gestation of pregnancy; Z79.899 Other long term (current) drug therapy
CPT/HCPCS: 80048; 81001; 96361; 96374; 96376; 99284; J7030; A4216

== ENCOUNTER 2022-01-04 21:05 | Outpatient (CLI) | payer MEDICAID, SELFPAY ==
[2022-01-04 21:14] VITALS: BMI 39.4
[2022-01-04 21:23] VITALS: BP 128/85; PULSE 100; TEMP 36.6
--- NOTE | 2022-01-04 21:53 | OB.TRI.NOTE ---
HPI - General HPI Narrative MARTITA GONZALEZ, is a 21 @ 35 weeks 3 days who presents with the complaint of decreased movement and contractions. She is Dr. Dumont's patient. [facility] Medical History Anxiety Depression Diabetes Migraine TBI (traumatic brain injury) Home Medications albuterol sulfate 1 - 2 puff INHALATION Q4H PRN PRN 12/17/20 [History Last Taken 01/02/22] vitamin no.138-folic acid 400 mcg-dha 25 mg chewable tablet 1 tab PO DAILY tab 07/10/21 [History Last Taken Unknown] sertraline 50 mg tablet 25 mg PO DAILY tab 07/10/21 [History Last Taken 01/03/22] metoclopramide HCl [Reglan] 10 mg PO Q6H PRN #10 tab 08/31/21 [Rx Last Taken 12/19/21] promethazine 25 mg IN Q6H PRN #10 ea 08/31/21 [Rx Last Taken Unknown] Allergy/AdvReac Type Severity Reaction Status Date / Time Penicillins Allergy Rash Verified 08/31/21 13:44 Surgical History History of appendectomy Social History adopted: Yes Smoking Status: Never smoker Electronic Cigarette Use: not used second hand exposure: No alcohol intake: never substance use type: does not use ROS Constitutional Constitutional: Reports systems reviewed and no addt'l complaints, except as documented Gastrointestinal Gastrointestinal: Denies bloating, constipation, cramping, diarrhea, nausea or vomiting Genitourinary Genitourinary: Reports other Details: Denies vaginal odor, vaginal bleeding, or vaginal discharge ; Denies difficulty urinating or flank pain Physical Exam HEENT normocephalic Resp normal respiratory effort and normal air movement no CVA tenderness Extremity normal to inspection General Extremity: edema bilateral (trace ) NST FHR Rate Baby A Baseline: 120 Variability:: Moderate Accelerations:: 15 x 15 Decelerations:: None NST Reactive:: Yes FHR Category:: Category I Assessment & Plan (1) Decreased movement: (2) False labor: PLAN: reactive nst, normal urine analysis and no signs of active labor pt to follow up with her primary OB this week or early next. Charges/Coding Multi Select Codes Visit Charges Office Visit/Consults: 93880 OV L3 Est Urinary/Genital Urinary/Genital CPT Codes: 38050-35 non-stress test Interp
[2022-01-04] MEDS: Acetaminophen 500 MG Tablet 1000 MG PO (22:00)
[2022-01-04 22:17] LABS: Bacteria 0 SEEN /hpf (None Seen); Mucous, Urine 0 SEEN /hpf (<or=2+); Red Blood Cells-Urine 0 SEEN /hpf (0-5); White Blood Cells 0 SEEN /hpf (0-5)
[2022-01-04 22:18] LABS: Color, Urine Yellow (Yellow); Glucose, Dipstick Normal (Normal); Ketone-Dipstick Negative (Negative); Leukocyte Esterase-Dipstick Negative /ul (Negative); Nitrite-Dipstick Negative (Negative); Occult Blood-Urine Negative /ul (Negative); Protein-Dipstick Negative (Negative); Urine Bilirubin Dipstick Negative (Negative); Urine Clarity Clear (Clear); Urine Urobilinogen Normal (Normal)
[2022-01-04 22:46] LABS: Squamous Epithelial Cells - UA 5-10 SEEN /hpf (5-10)
[2022-01-04] MEDS: Ondansetron ODT 4 MG Tablet PO (23:15)
== END 2022-01-04 23:59 | disposition home or self-care (01) ==
LOC: WPOUT 21:13 → WP 21:14
PROVIDERS: PCP Nurse Practitioner Family; Visit Provider Obstetrics & Gynecology
DX: O36.8130 Decreased fetal movements, third trimester, not applicable or unspecified (principal); O47.03 False labor before 37 completed weeks of gestation, third trimester; O99.343 Other mental disorders complicating pregnancy, third trimester; F32.A Depression, unspecified; F41.9 Anxiety disorder, unspecified; Z3A.35 35 weeks gestation of pregnancy
CPT/HCPCS: 59025; 59050; 81001; 99218; G0378

== ENCOUNTER 2022-02-07 10:51 | Emergency (ER) | payer MEDICAID, SELFPAY ==
[2022-02-07 10:53] VITALS: BP 125/106; PULSE 110; RESP 17; TEMP 35.6; O2SAT 100; BMI 37.4
--- NOTE | 2022-02-07 11:23 | EX.ED.DYSGE1 ---
HPI History of Present Illness Chief Complaint: Suicidal Informant: patient Narrative Narrative: Patient presents with some worsening depression and suicidal thoughts. She states she has fought mental illness most of her life. She has had a lot of depression. She used to be on Lamictal and other meds. She was hospitalized once in [facility] for suicidal ideation. She did have a slight suicide attempt in October by taking some extra pills but she did not seek care at that time. She has been and just delivered 9 days ago. She had prepartum depression so was told she likely will have depression. She is currently on Zoloft at 75 mg. She has been seeing her counselor. She comes in because her depression is getting worse. Her appetite is going down. She has had thoughts of overdosing on meds. She has not had thoughts of hurting the baby. She wants help and wants to feel better. Patient has had no medical complaints. She had a delivery but her wound is healing well. She is able to eat and drink although her appetite is down from depression. She has no urinary symptoms. No problems moving bowels. Physically she feels okay. Nothing is specifically making her depression worse or better other than the situation. She does have supportive mother. [facility] Medical History Anxiety delivery delivered Depression Diabetes Migraine TBI (traumatic brain injury) Home Medications albuterol sulfate 1 - 2 puff INHALATION Q4H PRN PRN 12/17/20 [History Last Taken 01/02/22] vitamin no.138-folic acid 400 mcg-dha 25 mg chewable tablet 1 tab PO DAILY tab 07/10/21 [History Last Taken Unknown] sertraline 50 mg tablet 75 mg PO DAILY tab 07/10/21 [History Last Taken 01/03/22] Allergy/AdvReac Type Severity Reaction Status Date / Time Penicillins Allergy Rash Verified 02/07/22 10:52 Surgical History History of appendectomy Social History adopted: Yes Smoking Status: Never smoker Electronic Cigarette Use: not used second hand exposure: No alcohol intake: never substance use type: does not use ROS ROS ED Constitutional Constitutional ED: Denies chills or fever(s) Eyes Eyes: Denies blurry vision ENT ENT ED: Denies rhinorrhea or sore throat Cardiovascular Cardiovascular: Denies chest pain or palpitations Respiratory/Chest Respiratory/Chest: Denies cough or dyspnea Gastrointestinal Gastrointestinal: Denies abdominal pain, constipation, diarrhea, melena, nausea or vomiting Genitourinary Genitourinary ED: Denies dysuria Musculoskeletal Musculoskeletal: Denies myalgias Integumentary Denies rash Neurologic Neurologic: Denies headache(s) Psychiatric Psychiatric: Reports depression and suicidal thoughts Endocrine Endocrinology: Denies polydipsia or polyuria Allergic/Immunologic Allergic/Immunologic ED: Denies urticaria EXAM Physical Exam Const Vital Signs: 02/07/22 10:53 02/07/22 12:06 Temperature 96.0 F L Temperature Source Oral Pulse Rate 110 H Respiratory Rate 17 16 Blood Pressure 125/106 H Blood Pressure Mean 112 Pulse Ox 100 Oxygen Delivery Method Room Air Room Air Positive well nourished and well developed General Appearance ED: well developed and NAD HEENT Reports moist mucous membranes Eyes General Eye ED: Negative for pale conjunctiva or scleral icterus Neck no JVD Chest Wall inspection of chest normal Resp normal respiratory effort and clear to auscultation bilaterally Cardio regular rate and regular rhythm GI normal to inspection, nondistended, normoactive bowel sounds, non-tender and non-distended GI Narrative: Her incision actually looks great. There is one area on the right side that has a centimeter where the superficial skin is open but it does not even go into subcutaneous tissue. There is no drainage. There is no erythema. Her wound looks surprisingly well healed for 9 days. Palpation: soft Back/Spine no CVA tenderness Extremity normal to inspection General Extremety ED: Negative for tenderness Neuro oriented x3 Sensorium / Orientation: alert Psych Psych Narrative: Patient does make good eye contact. She admits to suicidal thoughts. She is not agitated. She is very cooperative and a very good informant. Skin no rashes or lesions noted MDM MDM MDM Narrative Medical decision making narrative: Patient's medical work-up is overall unremarkable. Patient has very good support structure with and mother. She has positive thoughts about the baby in future. We had social work see her. Patient is actually optimistic about doing intensive outpatient. She will have support at all times during the day. Her is home all weekend. Medications will be locked up. No firearms in the home. Plan will be to do intensive outpatient therapy. If she has any further issues she should return. Lab Data Attestation: I reviewed the patient's lab results. Labs: Laboratory Results - last 24 hr 02/07/22 02/07/22 02/07/22 11:15 11:22 11:22 WBC 6.9 RBC 4.04 L Hgb 11.4 L Hct 33.8 L MCV 83.7 MCH 28.2 MCHC 33.7 RDW Std Deviation 45.2 H RDW Coeff of Raj 14.8 H Plt Count 444 MPV 10.0 Immature Gran % (Auto) 0.700 Neut % (Auto) 72.6 H Lymph % (Auto) 17.9 L Stearns % (Auto) 5.5 Eos % (Auto) 2.7 Baso % (Auto) 0.6 Absolute Neuts (auto) 5.0 Absolute Lymphs (auto) 1.24 Nucleated RBC % 0 Sodium 139 Potassium 4.0 Chloride 108 H Carbon Dioxide 22.0 Anion Gap 9 BUN 17 Creatinine 1.14 H Estim Creat Clear Calc 94.07 Est GFR (MDRD) Af Amer 77 Est GFR (MDRD) Non-Af 64 BUN/Creatinine Ratio 14.9 Glucose 90 Calcium 9.1 Ur Drug Screen Comment Ethyl Alcohol 02/07/22 11:22 WBC RBC Hgb Hct MCV MCH MCHC RDW Std Deviation RDW Coeff of Raj Plt Count MPV Immature Gran % (Auto) Neut % (Auto) Lymph % (Auto) Stearns % (Auto) Eos % (Auto) Baso % (Auto) Absolute Neuts (auto) Absolute Lymphs (auto) Nucleated RBC % Sodium Potassium Chloride Carbon Dioxide Anion Gap BUN Creatinine Estim Creat Clear Calc Est GFR (MDRD) Af Amer Est GFR (MDRD) Non-Af BUN/Creatinine Ratio Glucose Calcium Ur Drug Screen Comment Ethyl Alcohol < 3.0 Discharge Plan Triage Chief Complaint: Suicidal ED Provider: Abel Georges Dx/Rx/DC Orders Clinical Impression: Depression, , Suicidal thoughts Instructions: Recognizing Suicide Warning ..., Understanding Depression Prescriptions: No Action Alive 400 mcg- 25 mg tablet,chewable 1 tab PO DAILY RF: 0 sertraline 50 mg tablet 75 mg PO DAILY RF: 0 albuterol sulfate 1 PUFF inhaler 1 - 2 puff INHALATION Q4H PRN PRN (Reason: Wheezing) RF: 0 Primary Care Provider: Debra Smith NP Referrals: Debra Simth JOINTER MACHINE OPERATOR, JOINTER MACHINE OPERATOR-C [Primary Care Provider] - Disposition Disposition: Home, Self Care
[2022-02-07 11:28] LABS: Absolute Lymphocyte Count 1.24 X10^3/uL (0.83-4.51); Basophil# 0.04 X10^3/uL; Basophil% 0.6 % (0-1); Eosinophil# 0.19 X10^3/uL; Eosinophils% 2.7 % (0-5); Hematocrit 33.8 % (37-47); Hemoglobin 11.4 g/dL (12.0-15.0); Lymphocyte # 1.24 X10^3/ul (0.83-4.51); Lymphocyte % 17.9 % (19-41); Mean Corp Hgb Conc 33.7 g/dL (32-36); Mean Corpuscular Hgb 28.2 pg (27.0-32.0); Mean Corpuscular Volume 83.7 fL (81-99); Monocyte# 0.38 X10^3/uL; Monocyte% 5.5 % (0-10); NRBC Flagged by Analyzer 0 % (0-5); Neutrophil # 5.04 X10^3/uL (2.7-7.7); Neutrophil % 72.6 % (47-70); Platelet Count 444 K/mm3 (150-450); RBC Distribution Width CV 14.8 % (11.6-14.6); RBC Distribution Width SD 45.2 fl (35.1-43.9); Red Blood Count 4.04 M/mm3 (4.2-5.4); White Blood Count 6.9 K/mm3 (4.4-11.0)
[2022-02-07 11:42] LABS: Anion Gap 9 (5-15); BUN 17 mg/dL (7-18); BUN/Creat Ratio 14.9 RATIO (10-20); Calcium,Total 9.1 mg/dL (8.5-10.1); Chloride 108 mmol/L (98-107); Creatinine, Serum 1.14 mg/dL (0.55-1.02); EST Glomerular Filtration Rate 64 mL/min (>60); Est Glom Filt Rate - Afr Amer 77 mL/min (>60); Estimated Creatinine Clearance 94.07 ml/min; Glucose 90 mg/dL (74-106); Sodium Level 139 mmol/L (136-145)
[2022-02-07 11:59] LABS: Alcohol, Blood (Medical)-Serum < 3.0 mg/dL
[2022-02-07 12:06] VITALS: RESP 16
--- NOTE | 2022-02-07 12:14 | NURSING ---
Went to see mother and discussed any questions in breast feeding . Mother states baby has been latching well and lots of voids and stools . Baby also gained weight at last appointment. If mother needs pump if staying and baby cannot be with her , I discussed I would bring her a pump to use.
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
[2022-02-07 12:45] LABS: Amphetamine Urine VISTA NEGATIVE (<1000 ng/mL); Barbiturate Urine VISTA NEGATIVE (< 200 ng/mL); Benzodiazepine Urine VISTA NEGATIVE (< 200 ng/mL); Cocaine Urine VISTA NEGATIVE (< 300 ng/mL); Ecstacy Urine VISTA NEGATIVE (< 500 ng/mL); Methadone Urine VISTA NEGATIVE (< 300 ng/mL); PCP Urine VISTA NEGATIVE (< 25 ng/mL); THC Urine VISTA NEGATIVE (< 50 ng/mL); Vista UDS pH Range 6
== END 2022-02-07 12:50 | disposition home or self-care (01) ==
PROVIDERS: Emergency Provider Emergency Medicine; PCP Nurse Practitioner Family; Visit Provider Emergency Medicine
DX: O99.345 Other mental disorders complicating the puerperium (principal); F32.A Depression, unspecified; R45.851 Suicidal ideations; Z79.899 Other long term (current) drug therapy
CPT/HCPCS: 36415; 80048; 80307; 82077; 85025; 87426; 99285

== ENCOUNTER 2022-02-13 11:04 | Outpatient (RCR) | payer MEDICAID, SELFPAY ==
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
--- NOTE | 2022-02-13 11:24 | BH.COMM ---
Communication Note - Communication with Client Communication Note: Met with patient to complete initial paperwork and [facility]. Group cancelled for the day due to multiple cancellations, met with pt to also discuss treatment goals. [facility] indicated moderate risk. Endorses fleeting suicidal ideations for the past 2 years which have worsened in the last 3-4 months. Pt was diagnosed with peripartum depression and may be experiencing symptoms of depression as well. Reports mainly intrusive suicidal thoughts with no intent or plan however when feeling overwhelmed or ?Purposeless? reports increased intent. Suicidal thoughts last typically several minutes to an hour. Pt has several safety plans, has called crisis for support in the past, and reports she utilizes support (, close friend in [place], and parents), as well as distraction when she feels more depressed and suicidal. Reports this is usually helpful but that she fears it will become harder to maintain safety if she does not begin more intensive therapy. Reports looking forward to the IOP program as it ?gives me something to do during the day?. Pt reports hx of one prior attempt in October of 2020 in which she ?took a bunch of pills and went to bed? with hopes of overdosing. Reports she woke up the next morning and went to work as though nothing had happened. Denies seeking medical tx at that time but did begin working with an individual counselor whom she still sees, Dionne at [facility]. Scheduled to meet with individual therapist today. Hx of one prior inpatient hospitalization for 2 weeks at [facility] when pt was in [place]. Denies active suicidal ideations, plan, or intent. Last thought was Saturday. Denies access to firearms. Protective factors reported. Currently prescribed Zoloft (75mg). Consulted with Dr. Baires with plan to admit to [facility] level of care with dx of MDD F33.2
--- NOTE | 2022-02-13 11:24 | BH.PSA ---
Suicide Assessment Treatment Plan Recommendations
--- NOTE | 2022-02-14 09:00 | BH.SGPN.GN ---
Behaviors/Verbalizations/Mental Status: []Eye contact is good. Motor activity is appropriate. Appearance is casual. Speech is appropriate. Mood is euthymic. Affect is congruent. Thoughts are linear and logical. No evidence of psychosis. Reviewed daily symptom tracker sheet with no reports of suicidal ideations, plan, or intent. Client Response/Progress/Benefit: []Client was engaged throughout group session, sharing and listening attentively to others. Client reported her emotion as ?anxious?, as today is her first day of IOP treatment. Client discussed that she is on maternity leave, and is feeling very lost. Client discussed struggling with passive thoughts of . Appeared to benefit from supportive group discussion normalizing feelings. Client reports wanting to gain healthy coping skills and ?find my personality apart from my job? during IOP treatment. Will continue IOP treatment to maintain safety, prevent decompensation, and increase knowledge of healthy coping skills. Narrative Note: []
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
[2022-02-14 12:08] VITALS: BP 143/93; PULSE 66
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
--- NOTE | 2022-02-14 13:12 | BH.DR.ITP ---
Initial Treatment Plan Patient Information Visit Information: ADMISSION DATE: EXPECTED LOS: 4-6 weeks Problems/Symptoms Problem #1:: Depression Symptom:: Sadness, hopelessness, worthlessness, decreased appetite, low energy, decreased concentration, guilt, passive suicidal ideation with plan to overdose Problem #2:: Anxiety Symptom:: Worry, rumination, panic attacks, nightmares, flashbacks, reexperiencing, avoidance
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
== END 2022-02-15 09:59 ==
LOC: BHIOP 11:04
PROVIDERS: PCP Nurse Practitioner Family; Referring Provider Psychiatry & Neurology Psychiatry; Visit Provider Psychiatry & Neurology Psychiatry
DX: F33.2 Major depressive disorder, recurrent severe without psychotic features (principal); F43.10 Post-traumatic stress disorder, unspecified; F41.8 Other specified anxiety disorders; Z79.899 Other long term (current) drug therapy; Z62.810 Personal history of physical and sexual abuse in childhood; Z91.51 Personal history of suicidal behavior; R45.851 Suicidal ideations
CPT/HCPCS: 90792; H2012; T1002

== ENCOUNTER 2022-02-14 22:41 | Emergency (ER) | payer MEDICAID, SELFPAY ==
[2022-02-14 22:43] VITALS: BP 136/97; PULSE 87; RESP 16; TEMP 36.6; O2SAT 99; BMI 38.1
--- NOTE | 2022-02-14 23:13 | EKG12_ITS ---
Test Reason : PSYCH Blood Pressure : / mmHG Vent. Rate : 079 BPM Atrial Rate : 079 BPM P-R Int : 142 ms QRS Dur : 082 ms QT Int : 386 ms P-R-T Axes : 032 003 005 degrees QTc Int : 442 ms Normal sinus rhythm Normal ECG Confirmed by MARY MACIAS, NORMA ([id number]), video editor DONALD VALDES ([id number]) on 02/19/2022 9:52:15 AM Referred By: Confirmed By:YAMILET HERNANDEZ MD
[2022-02-14] MEDS: Activated Charcoal/Sorbitol 25 GM/120 ML BOT PO (23:45)
[2022-02-15] VITALS (12 sets, daily range): BP systolic 105–129; BP diastolic 68–75; PULSE 76–84; RESP 16–20; TEMP 36.3; O2SAT 97–99
[2022-02-15 00:18] LABS: Absolute Lymphocyte Count 1.96 X10^3/uL (0.83-4.51); Basophil# 0.03 X10^3/uL; Basophil% 0.4 % (0-1); Eosinophil# 0.21 X10^3/uL; Eosinophils% 3.1 % (0-5); Hematocrit 34.4 % (37-47); Hemoglobin 11.3 g/dL (12.0-15.0); Lymphocyte # 1.96 X10^3/ul (0.83-4.51); Lymphocyte % 29.1 % (19-41); Mean Corp Hgb Conc 32.8 g/dL (32-36); Mean Corpuscular Volume 85.4 fL (81-99); Mean Platelet Vol. 9.7 fl (6.2-12.0); Monocyte# 0.49 X10^3/uL; Monocyte% 7.3 % (0-10); NRBC Flagged by Analyzer 0 % (0-5); Neutrophil # 4.03 X10^3/uL (2.7-7.7); Platelet Count 385 K/mm3 (150-450); RBC Distribution Width CV 13.9 % (11.6-14.6); RBC Distribution Width SD 43.9 fl (35.1-43.9); Red Blood Count 4.03 M/mm3 (4.2-5.4); White Blood Count 6.7 K/mm3 (4.4-11.0)
[2022-02-15 00:39] LABS: AST(SGOT) 14 U/L (15-37); Alanine Aminotransfer ALT/SGPT 18 U/L (13-56); Albumin, Serum 3.6 g/dL (3.2-5.0); Alkaline Phosphatase 107 U/L (45-117); Anion Gap 8 (5-15); BUN 11 mg/dL (7-18); BUN/Creat Ratio 11.5 RATIO (10-20); Bilirubin, Direct 0.08 mg/dL (0.00-0.30); Calcium,Total 8.9 mg/dL (8.5-10.1); Chloride 110 mmol/L (98-107); Creatinine, Serum 0.96 mg/dL (0.55-1.02); EST Glomerular Filtration Rate 78 mL/min (>60); Est Glom Filt Rate - Afr Amer 94 mL/min (>60); Estimated Creatinine Clearance 112.83 ml/min; Globulin 3.9 g/dL (2.2-4.2); Glucose 105 mg/dL (74-106); Potassium 3.3 mmol/L (3.5-5.1); Protein, Total 7.5 g/dL (6.4-8.2); Sodium Level 141 mmol/L (136-145)
[2022-02-15 00:40] LABS: International Normalized Ratio 1.1; Partial Thromboplast Time 32.2 Seconds (24.1-36.2); Prothrombin Time (Protime)PT. 13.1 SECONDS (11.7-14.9)
[2022-02-15] MEDS: Ondansetron 4 MG/2 ML Vial IV (00:58)
[2022-02-15 01:21] LABS: Acetaminophen (Tylenol) Level 12.3 ug/mL (10.0-30.0); Salicylate < 1.7 mg/dL (2.8-20.0)
[2022-02-15 03:19] LABS: Acetaminophen (Tylenol) Level < 2.0 ug/mL (10.0-30.0)
[2022-02-15 04:04] LABS: Red Blood Cells-Urine 0 SEEN /hpf (0-5); Squamous Epithelial Cells - UA 0 SEEN /hpf (5-10); White Blood Cells 0 SEEN /hpf (0-5)
[2022-02-15 04:08] LABS: Color, Urine Yellow (Yellow); Glucose, Dipstick Normal (Normal); Ketone-Dipstick Negative (Negative); Leukocyte Esterase-Dipstick Negative /ul (Negative); Nitrite-Dipstick Negative (Negative); Occult Blood-Urine Negative /ul (Negative); Protein-Dipstick 15 mg/dl (Negative); Specific Gravity, Urine 1.025 (1.002-1.030); Urine Bilirubin Dipstick Negative (Negative); Urine Clarity Clear (Clear); Urine Urobilinogen Normal (Normal)
[2022-02-15 04:10] LABS: Internal QC Validated? YES +Cl - CLEAR BKGD; Pregnancy, Urine Negative Negative
[2022-02-15 04:14] LABS: Bacteria 2+ /hpf (None Seen); Mucous, Urine 3+ /hpf (<or=2+)
[2022-02-15 04:19] LABS: Amphetamine Urine VISTA NEGATIVE (<1000 ng/mL); Barbiturate Urine VISTA NEGATIVE (< 200 ng/mL); Benzodiazepine Urine VISTA NEGATIVE (< 200 ng/mL); Cocaine Urine VISTA NEGATIVE (< 300 ng/mL); Ecstacy Urine VISTA NEGATIVE (< 500 ng/mL); Methadone Urine VISTA NEGATIVE (< 300 ng/mL); PCP Urine VISTA NEGATIVE (< 25 ng/mL); THC Urine VISTA NEGATIVE (< 50 ng/mL); Vista UDS pH Range 4
[2022-02-15 04:23] LABS: Acetaminophen (Tylenol) Level < 2.0 ug/mL (10.0-30.0)
--- NOTE | 2022-02-15 04:58 | NURSING ---
CALLED [facility] FAXED PACKET [phone]
--- NOTE | 2022-02-15 08:18 | EDS_ITS ---
HPI History of Present Illness Chief Complaint: Suicidal Narrative Narrative: Patient is a 22-year-old female who is approximately 14 weeks . She states she has been dealing with a lot of stress and this evening took the remainder of her Percocet around 10 PM. She states she did this deliberately to try to hurt her self. Patient states she believes there was 20 pills initially prescribed and she had taken a few of them previously but she is unsure how many Percocet pills she took. She denies any other ingestion other than her normal Zoloft medication. states that when he was told what she did he called EMS to bring her in for evaluation. EMS states that they did not have to give the patient Narcan as she has been awake and alert for the entire transport [facility] Medical History Bipolar disorder, unspecified delivery delivered Depression Diabetes Generalized anxiety disorder Migraine PTSD (post-traumatic stress disorder) TBI (traumatic brain injury) Home Medications albuterol sulfate 1 - 2 puff INHALATION Q4H PRN PRN 12/17/20 [History Last Taken 01/02/22] vitamin no.138-folic acid 400 mcg-dha 25 mg chewable tablet 1 tab PO DAILY tab 07/10/21 [History Last Taken Unknown] sertraline [Zoloft] 100 mg PO DAILY 30 Days #30 tab 02/14/22 [Rx Last Taken Unknown] Allergy/AdvReac Type Severity Reaction Status Date / Time Penicillins Allergy Rash Verified 02/14/22 22:48 Surgical History History of appendectomy Social History adopted: Yes Smoking Status: Never smoker Electronic Cigarette Use: not used second hand exposure: No alcohol intake: never substance use type: does not use ROS ROS ED ROS Narrative Review of systems is unable to be obtained as patient is uncooperative EXAM Physical Exam Narrative Exam Narrative: Patient is uncooperative and refuses a physical exam. She has a tearful affect she is speaking in complete sentences with no signs of respiratory distress she is awake alert and oriented with no focal neurologic deficit and no obvious skin changes noted. Const Vital Signs: 02/14/22 22:43 02/15/22 01:01 02/15/22 02:56 Temperature 98 F 97.4 F L Temperature Source Temporal Temporal Pulse Rate 87 76 Respiratory Rate 16 16 18 Blood Pressure 136/97 H 105/68 Blood Pressure Mean 110 80 Pulse Ox 99 98 Oxygen Delivery Method Room Air Room Air 02/15/22 04:02 02/15/22 05:07 02/15/22 06:03 Temperature Temperature Source Pulse Rate Respiratory Rate 16 20 H 16 Blood Pressure Blood Pressure Mean Pulse Ox Oxygen Delivery Method Room Air Room Air 02/15/22 07:19 Temperature Temperature Source Pulse Rate Respiratory Rate 20 H Blood Pressure Blood Pressure Mean Pulse Ox Oxygen Delivery Method Room Air MDM MDM MDM Narrative Medical decision making narrative: Patient arrived to the ER awake and alert with a tearful affect. She reported taking an unknown amount of Percocet around 10 PM. She reported she did this in order to hurt herself. At this time I will assume that she had not taken any of the previous Percocet pills and that there was 20 left in the bottle which she took at this time. Assuming that value she would have 6.5 g Tylenol present in her system. I called poison control to discuss the case and they recommend a 4-hour and 6-hour level to ensure there is no need for ICU placement and N-acetylcysteine. With the toxic ingestion basic blood work was obtained. Initial Tylenol value was 12 but the 4-hour was less than 2 in the 6-hour remained less than 2. Therefore based on this value there is no concern for toxic Tylenol ingestion. the remainder of the patient's labs revealed no clinically significant finding. The patient was then medically cleared and was evaluated by crisis center. With the patient's depression and tearful affect as well as the fact she deliberately tried to harm her self this evening they do agree with recommendation to place in a psychiatric facility. Therefore patient is medically cleared for psychiatric placement at this time Lab Data Attestation: I reviewed the patient's lab results. Labs: Laboratory Results - last 24 hr 02/15/22 02/15/22 02/15/22 00:05 00:05 00:05 WBC 6.7 RBC 4.03 L Hgb 11.3 L Hct 34.4 L MCV 85.4 MCH 28.0 MCHC 32.8 RDW Std Deviation 43.9 RDW Coeff of Raj 13.9 Plt Count 385 MPV 9.7 Immature Gran % (Auto) 0.100 Neut % (Auto) 60.0 Lymph % (Auto) 29.1 [place] % (Auto) 7.3 Eos % (Auto) 3.1 Baso % (Auto) 0.4 Absolute Neuts (auto) 4.0 Absolute Lymphs (auto) 1.96 Nucleated RBC % 0 PT 13.1 INR 1.1 APTT 32.2 Sodium 141 Potassium 3.3 L Chloride 110 H Carbon Dioxide 23.0 Anion Gap 8 BUN 11 Creatinine 0.96 Estim Creat Clear Calc 112.83 Est GFR (MDRD) Af Amer 94 Est GFR (MDRD) Non-Af 78 BUN/Creatinine Ratio 11.5 Glucose 105 Calcium 8.9 Total Bilirubin 0.20 Direct Bilirubin 0.08 AST 14 L ALT 18 Alkaline Phosphatase 107 Total Protein 7.5 Albumin 3.6 Globulin 3.9 Urine Color Urine Clarity Urine pH Ur Specific [place] Urine Protein Urine Glucose (UA) Urine Ketones Urine Occult Blood Urine Nitrite Urine Bilirubin Urine Urobilinogen Ur Leukocyte Esterase Urine RBC Urine WBC Ur Squamous Epith Cells Urine Bacteria Urine Mucus Urine Test Salicylates Urine Opiates Screen Urine Methadone Screen Acetaminophen Ur Barbiturates Screen Ur Phencyclidine Scrn Ur Amphetamines Screen MDMA (Ecstasy) Screen U Benzodiazepines Scrn Urine Cocaine Screen U Cannabinoids Screen Ur Drug Screen Comment Ethyl Alcohol 02/15/22 02/15/22 02/15/22 00:05 02:50 03:45 WBC RBC Hgb Hct MCV MCH MCHC RDW Std Deviation RDW Coeff of Raj Plt Count MPV Immature Gran % (Auto) Neut % (Auto) Lymph % (Auto) Monona % (Auto) Eos % (Auto) Baso % (Auto) Absolute Neuts (auto) Absolute Lymphs (auto) Nucleated RBC % PT INR APTT Sodium Potassium Chloride Carbon Dioxide Anion Gap BUN Creatinine Estim Creat Clear Calc Est GFR (MDRD) Af Amer Est GFR (MDRD) Non-Af BUN/Creatinine Ratio Glucose Calcium Total Bilirubin Direct Bilirubin AST ALT Alkaline Phosphatase Total Protein Albumin Globulin Urine Color Urine Clarity Urine pH Ur Specific [place] Urine Protein Urine Glucose (UA) Urine Ketones Urine Occult Blood Urine Nitrite Urine Bilirubin Urine Urobilinogen Ur Leukocyte Esterase Urine RBC Urine WBC Ur Squamous Epith Cells Urine Bacteria Urine Mucus Urine Test Salicylates < 1.7 L Urine Opiates Screen POSITIVE H Urine Methadone Screen NEGATIVE Acetaminophen 12.3 < 2.0 L Ur Barbiturates Screen NEGATIVE Ur Phencyclidine Scrn NEGATIVE Ur Amphetamines Screen NEGATIVE MDMA (Ecstasy) Screen NEGATIVE U Benzodiazepines Scrn NEGATIVE Urine Cocaine Screen NEGATIVE U Cannabinoids Screen NEGATIVE Ur Drug Screen Comment Ethyl Alcohol 6.0 02/15/22 02/15/22 03:45 03:55 WBC RBC Hgb Hct MCV MCH MCHC RDW Std Deviation RDW Coeff of Raj Plt Count MPV Immature Gran % (Auto) Neut % (Auto) Lymph % (Auto) [place] % (Auto) Eos % (Auto) Baso % (Auto) Absolute Neuts (auto) Absolute Lymphs (auto) Nucleated RBC % PT INR APTT Sodium Potassium Chloride Carbon Dioxide Anion Gap BUN Creatinine Estim Creat Clear Calc Est GFR (MDRD) Af Amer Est GFR (MDRD) Non-Af BUN/Creatinine Ratio Glucose Calcium Total Bilirubin Direct Bilirubin AST ALT Alkaline Phosphatase Total Protein Albumin Globulin Urine Color Yellow Urine Clarity Clear Urine pH 5.0 Ur Specific [place] 1.025 Urine Protein 15 H Urine Glucose (UA) Normal Urine Ketones Negative Urine Occult Blood Negative Urine Nitrite Negative Urine Bilirubin Negative Urine Urobilinogen Normal Ur Leukocyte Esterase Negative Urine RBC 0 SEEN Urine WBC 0 SEEN Ur Squamous Epith Cells 0 SEEN Urine Bacteria 2+ Urine Mucus 3+ Urine Test Negative Salicylates Urine Opiates Screen Urine Methadone Screen Acetaminophen < 2.0 L Ur Barbiturates Screen Ur Phencyclidine Scrn Ur Amphetamines Screen MDMA (Ecstasy) Screen U Benzodiazepines Scrn Urine Cocaine Screen U Cannabinoids Screen Ur Drug Screen Comment Ethyl Alcohol Discharge Plan Triage Chief Complaint: Suicidal ED Provider: Magdaleno Taveras Dx/Rx/DC Orders Clinical Impression: Depression with suicidal ideation, Intentional overdose Prescriptions: No Action Alive 400 mcg- 25 mg tablet,chewable 1 tab PO DAILY RF: 0 albuterol sulfate 1 PUFF inhaler 1 - 2 puff INHALATION Q4H PRN PRN (Reason: Wheezing) RF: 0 sertraline [Zoloft] 100 mg tablet 100 mg PO DAILY 30 Days Qty: 30 RF: 0 Primary Care Provider: Debra Smith NP Referrals: Debra Smith NP, [facility] [Primary Care Provider] - Disposition Disposition: Psychiatric Hospital or Unit
--- NOTE | 2022-02-15 10:29 | ED.RN ---
WP CALLED FOR BREAST PUMP.
--- NOTE | 2022-02-15 11:00 | NURSING ---
Pump brought to mother and shown how to use pump and clean pump . Mother verbalizes understanding. Encouraged to pump every 3 hours for 15-20 min when away from the baby.
--- NOTE | 2022-02-15 11:04 | CM.ED ---
Srinivas Note SRINIVAS called Alissa at Crisis. Per Alissa patient is pending at [facility]. Suzi LINTON
[2022-02-15] MEDS: Acetaminophen 325 MG Tablet 650 MG PO (11:31)
[2022-02-15] MEDS: Prenatal Vits Tablet 1 TABLET PO (11:32)
[2022-02-15] MEDS: Sertraline 100 MG Tablet PO (11:32)
--- NOTE | 2022-02-15 14:13 | CM.ED ---
Alissa from Crisis called. Alissa said that patient was accepted but they need hospital to send insurance information and face sheet. WILIAN faxed insurance information and face sheet to [facility]. WILIAN called [facility] and spoke to Oliva. Accepting MD is Xander. Patient is going to [address]. RN to RN is [phone]. WILIAN received voluntary and patient signed and this ticket writer witnessed it. WILIAN called Oliva at [facility] and advised that this ticket writer had received voluntary. SHe advised to fax it to [phone] Candida, executive secretary social welfare will schedule transport. Suzi LINTON
--- NOTE | 2022-02-15 14:56 | CM.ED ---
SW updated patient and her regarding placement and the ambulance would be picking patient up in 20 minutes. SW answered all questions and encouraged patient to discuss her concerns with [facility] staff. Plan: [facility] Suzi LINTON
== END 2022-02-15 15:30 ==
PROVIDERS: Emergency Provider Emergency Medicine; PCP Nurse Practitioner Family; Visit Provider Emergency Medicine
DX: O9A.23 Injury, poisoning and certain other consequences of external causes complicating the puerperium (principal); T40.2X2A Poisoning by other opioids, intentional self-harm, initial encounter; O99.345 Other mental disorders complicating the puerperium; F32.A Depression, unspecified; R45.851 Suicidal ideations; F41.1 Generalized anxiety disorder; Z79.899 Other long term (current) drug therapy; X58.XXXA Exposure to other specified factors, initial encounter
CPT/HCPCS: 80048; 80076; 80307; 80329; 81001; 81025; 82077; 85025; 85610; 85730; 87811; 93005; 96374; 99285; G0480; J2405

== ENCOUNTER 2022-02-22 08:30 | Outpatient (RCR) | payer MEDICAID, SELFPAY ==
--- NOTE | 2022-02-22 08:36 | BH.COMM ---
Communication Note - Communication with Client Communication Note: Met with pt to complete the initial IOP paperwork and completed an CSSR-S since last visit assessment with pt as pt was recently in IOP prior to psychiatric admission. Per CSSR-S pt presents as a high risk due to pt's recent suicide attempt via OD on Percocet which led to psych admission on 02/14/22 as well as pt's significant depression and recent thoughts of hurting herself last night. During today's assessment, pt denied any active SI, plan, or intent to this therapist. Denied any access to weapons, knives, or medications. Pt was present for IOP on 02/14/22 and on that day denied any active SI, plan, or intent. Pt reported her OD was impulsive and pt told her who took pt to the ER. Pt also denied any active HI to this therapist today. However, pt shared since being released from the hospital she has been experiencing auditory hallucinations that tell pt to hurt herself and others. Pt reported she told her this last night and pt's secured the knives in the home and took care of their baby. Pt is to meet with individual therapist today and will be further evaluated. Pt has strong family support and help with childcare. Will discuss presenting symptoms and concerns to IOP staff today to assess plan of care.
--- NOTE | 2022-02-22 09:05 | BH.SGPN.GN ---
Behaviors/Verbalizations/Mental Status: []Eye contact is good. Motor activity is appropriate. Appearance is neat and casual. Speech is Appropriate. Mood is depressed, irritable, and anxious. Affect is congruent. Thoughts are linear and logical. No evidence of psychosis. Reviewed daily check in sheet and pt reports suicidal ideations as a 3/5 and denies intent as of this date, 02/22/22. Willing to further assess risk with therapist following group. Client Response/Progress/Benefit: []Pt receptive of session, engaged throughout and providing supportive feedback and input to group. Reports current emotion as ?agitated? and shared a recent experience in which she felt dismissed and misunderstood when attempting to communicate her mental health needs and concerns to a medical professional. Discussed feeling shamed for her struggles and angry that others who are also struggling with their mental health risk dealing with similar invalidating experiences. Appeared to benefit from group support and discussion on how to reduce mental health stigma and be an advocate for self and others. Progress limited as pt first day in IOP program following recent hospitalization. Recommended continued tx to maintain safety, improve mood stability, and prevent decompensation. Narrative Note: []
--- NOTE | 2022-02-22 09:05 | BH.COMM ---
Communication Note - Communication with Client Communication Note: Pt was admitted to [facility] on 02/14/22 and later stepped up to higher level of care on 02/15/21 ([facility] Psych unit). Discharged from psych unit on 02/19/22. She reported fleeting SI and thoughts to harm self and others since discharge from psych unit. [place] Suicide Screening was completed by [facility] staff. Denied active SI or HI. Case discussed with Dr. Baires with plan to admit to [facility] level of care with dx of F32.9.
--- NOTE | 2022-02-22 09:05 | BH.COMM_ITS ---
Communication Note - Communication with Client Communication Note: Pt was admitted to [facility] on 02/14/22 and later stepped up to higher level of care on 02/15/21 ([facility] Psych unit). Discharged from psych unit on 02/19/22. She reported fleeting SI and thoughts to harm self and others since discharge from psych unit. [place] Suicide Screening was completed by [facility] staff. Denied active SI or HI. Case discussed with Dr. Baires with plan to admit to [facility] level of care with dx of F32.9.
--- NOTE | 2022-02-22 10:15 | BH.SGPN.GN ---
Behaviors/Verbalizations/Mental Status: []Client alert and oriented, casually dressed and groomed. Eye contact fair. Motor activity appropriate. Speech within normal limits. Affect constricted, mood depressed and anxious. Thoughts linear, logical, no signs of hallucinations or delusions. Client Response/Progress/Benefit: []Client receptive to session, participating throughout. Provided input as the group brainstormed the positive and negative aspects of stress on physical and mental health. Group did well to identify the benefits of stress as well as the impact of distress on performance and mental health. Client identified top stressors such as having a baby, not working on maternity leave, how mental health impacts others, and adjusting to parenting. Client reports her stress jar is filled to the top and when it is overfilled she gets anxious and depressed. Seemed to benefit from improved awareness of how client?s stress response can create a vicious cycle and make more stressors. Recommended to continue IOP tx to maintain safety, increase consistent use of healthy coping and improve daily functioning.
--- NOTE | 2022-02-22 11:10 | BH.SGPN.GN ---
Behaviors/Verbalizations/Mental Status: [] Eye contact is good. Motor activity is appropriate. Appearance is casual. Speech is Appropriate. Mood is depressed. Affect is flat. Thoughts are linear and logical. No evidence of psychosis. Client Response/Progress/Benefit: [] Pt participated at times during group discussion. Attentive during psychoeducation. Active participant in group experiential activity. Able to reflect on group activity and relate it to group topic of stress. Pt along with peers had an interactive discussion in which they identified certain skills they had to utilize to manage stress during activity which included ; communication, asking for help, trying new and different techniques, utilize acceptance (i.e. not as easy as I thought), and thought reframing (i.e. doesn't have to work on first try). Provided insight and examples during psychoeducation on the 4 A's of Stress (Avoid, Alter, Adapt, ad Accept). Pt verbalized that she wants to practice Adapt by finding ways to get back to my old self. Benefited from increased education and awareness of strategies to manage stress. Also practiced in the moment stress management during group activity. Will continue in IOP to maintain safety and prevent decompensation. Narrative Note: []
--- NOTE | 2022-02-22 14:37 | BH.COMM ---
Communication Note - Communication with Client Communication Note: Pt presented to [facility] today after inpatient psychiatric admission at [facility] from 02/14/22 to 02/19/22. She was given a dx of Bipolar and started on Prozac 20mg and Lamictal 25mg. She disclosed to staff today that since discharge from inpatient psych on 02/19/22 she has been experiencing worsening command hallucinations, has only slept between 2-4 hours per night, and has increased energy. No previous hx of hallucinations. Command hallucinations are reported to be an external voices telling her to harm herself. Pt denies active suicidal ideations, plan, or intent, however had significant impulsive suicide attempt on 02/14/22 in which she verbalized overdosing on Percocet which led to initial psych admission on 02/14/22. Pt also reports command hallucinations telling her to make her baby stop crying which led to thoughts of harming baby. Pt just gave 23 days ago and has had significant depression. Pt denies any plan to harm the baby. Safety plan was completed in [facility] in which pt agreed to spend the night with her sister and have her care for the child. Agreed to not be left alone with baby. Consulted with program psychiatrist Dr. Baires who was concerned medications started at [facility] could be triggering lena and psychosis. Due to pt's recent suicide attempt, lena symptoms, and command hallucinations she recommended that pt be further evaluated in the ER for psychiatric admission. Dr. Baires felt pt needed to be closely monitored and in safe place (for herself and child) while she is assessed further for lena, psychosis, and while medication changes are made. Pt made aware of recommendations and is agreeable with voluntary admission. Pt agreed to present to [facility] ER.
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
--- NOTE | 2022-02-22 22:22 | BH.MDN_ITS ---
Multi-Disciplinary Note - Note 45-min Individual Time Started:: 12:11 Date: 02/22/22 Purpose of session/treatment goals addressed:: Purpose of session was to follow- up with pt regarding recent stressors and concerns resulting in pt suicide attempt and inpatient hospitalization last week. Another purpose was to assess for current risk, as well as symptoms and stressors currently impacting mental health stability, and establish a safety plan. Eye Contact:: Good Motor Activity:: Appropriate Appearance:: Neat, Casual Speech:: Appropriate Mood:: Anxious, Depressed Affect:: Congruent Thoughts:: Linear, Logical, No evidence of hallucinations/delusions noted - however reports experiencing auditory hallucinations the previous night Staff Interventions:: psychoeducation on: - psychosis, rapport building, strengths perspective, completed risk assessment / safety planning Client Response:: Pt receptive of session, engaged throughout. Reports feeling more ?hopeful and motivated? following discharge from inpatient unit on 02/19/22 following attempted overdose occurring on 02/14/22. Pt reports her inpatient experience had been positive and that she had found the staff and psychiatrist to be supportive. Shared feelings of relief while inpatient and increased hope in her ability to better manage her mental health sx. While hospitalized pt was given a dx of Bipolar and started on Prozac 20mg and Lamictal 25mg. Reports she initial thought this had been helpful, however over the past several days since discharge reports worsening sleep, difficulties concentrating, and increased energy. Pt noted she has not slept for more than 4 hours in the past 2 days and this is often interrupted sleep as she has a at home. Reports difficulties in tolerating the stress of having a and is often triggered by his crying, sharing that she struggles to care for him and often does not want to be around him unless others are present. Went on to describe that she has also been experiencing auditory command hallucinations but is unsure if these are actually command hallucinations or her own intrusive thoughts. Reports the voices have been telling her to harm herself and that they got to the point last night where she was unsure she could keep herself safe. Reports telling her this and that he had secured the knives in the apartment to ensure pt safety. Went on to share that while her was doing this she was left alone to care for her son who was crying. Indicates this had been stressful and that she began to hear voices telling her to ?make him stop crying?. Reports this scared her and she immediately had her take their son. Denies any current hallucinations or delusions. Denies any active suicidal thoughts, plan, or intent. Denies any current homicidal ideation, plan or intent. Discussed concerns with pt and risks of psychosis; however, pt adamantly denies any active HI/SI, plan, or intent and reports she does not want to voluntarily go to the hospital to address her recent hallucinations and have her medications re-evaluated. Discussed with pt a safety plan for the day including not being alone to prevent risk of harming herself or her son. Reports plans to take formula to a friend and that her sister would accompany her. Reports she would also stay with her parents tonight and have her keep their son so that she will not be alone with her son. Reports plans to discuss with her plans staying outside of the home until she is more stable. Agreeable to contact this therapist when she is with her sister to ensure safety. Additionally, agreeable to having therapist discuss plan for safety with pt?s , as well as further consult medication concerns with program psychiatrist. Risks/Concerns:: Denies active SI, plan, or intent. Completed [place] screening earlier today. She reports being stressed but mostly hopeful about her ability to begin addressing mental health concerns. Went on to indicate that she has recently been experiencing auditory hallucinations since being discharged from inpatient unit on Saturday. Reports she has not previously experienced these and is concerned as they have told her to harm herself and to ?make the baby stop crying?. Denies any active thoughts of harming her son. Denies experiencing any plan or intent at the time she heard these voices. Denies hearing any voices today and that this primarily occurs when she is alone. Denies any active SI/HI, plan or intent. Denies plans to be alone with her child or access to any lethal means. Denies wanting to be voluntarily hospitalized for medication re- evaluation, however receptive of therapist consulting program psychiatrist for further consultation regarding potential psychosis. Receptive of cr eating a safety plan until therapist able to further consult with program psychiatrist. Pt plans to spend the afternoon with her parents and sister until her is off work. Reports plans to discuss staying with her parents in their home and her son staying with her to ensure her son?s safety while stabilizing pt mood. Pt will contact therapist when with her parents to ensure safety. Additionally, agreeable to having therapist discuss plan for safety with pt?s , as well as further consult medication concerns with program psychiatrist. Progress Toward Goals/Plan:: No progress noted. She reports finding the group setting to be less triggering and more supportive than when attending last week and attributes this to being more open to treatment herself since hospital discharge. Numerous psychosocial stressors which are overwhelming and an obstacle to focusing on treatment. This therapist provided option for inpatient hospitalization which pt declined on several occasions, however willing to safety plan with therapist. Reports guilt and difficulties accepting her mental health needs which may present a significant barrier to progress moving forward. Pt is guarded and vague when discussing current stressors. She is often resistant to seeking help which presents an additional barrier to progress. She is linked with counseling outside of [facility] and meets with her therapist weekly, last session occurred the previous date 02/21/22. Time Stopped:: 12:51
== END 2022-02-23 08:11 ==
LOC: BHIOP 08:30
PROVIDERS: PCP Nurse Practitioner Family; Referring Provider Psychiatry & Neurology Psychiatry; Visit Provider Psychiatry & Neurology Psychiatry
DX: F31.9 Bipolar disorder, unspecified (principal); F43.10 Post-traumatic stress disorder, unspecified; F41.8 Other specified anxiety disorders; Z79.899 Other long term (current) drug therapy
CPT/HCPCS: 90834; H2020; S9480

== ENCOUNTER 2022-02-22 17:51 | Emergency (ER) | payer MEDICAID, SELFPAY ==
[2022-02-22 17:52] VITALS: BP 149/90; PULSE 92; RESP 16; TEMP 36.6; O2SAT 100; BMI 37.4
--- NOTE | 2022-02-22 18:27 | EDS_ITS ---
HPI HPI - Psych History of Present Illness Chief Complaint: Suicidal Narrative Narrative: Patient presents from [facility] today for possible readmission for medication adjustment. She was recently admitted for approximately [address] [facility]. At that time, she had suicidal ideation. She continues to have suicidal ideation and admits to hearing voices. She was placed on Prozac 20 mg once a day, and she described to them at [facility] that she was having worsening command hallucinations that are telling her to hurt herself. She states otherwise, medically she feels fine without chest pain or shortness of breath or any other symptoms. She understands that based on her worsening psychosis that she would need to be transported back to [facility] in [place]. She presents for medical clearance from [facility]. Additionally, she does state that she had a suicide attempt last week and that is why she was admitted. She recently had a child 3 weeks ago who was being watched by her parents. She understands that she will most likely be readmitted. [facility] Medical History Bipolar disorder, unspecified delivery delivered Depression Diabetes Generalized anxiety disorder Migraine PTSD (post-traumatic stress disorder) TBI (traumatic brain injury) Home Medications vitamin no.138-folic acid 400 mcg-dha 25 mg chewable tablet 1 tab PO DAILY tab 07/10/21 [History Last Taken Unknown] fluoxetine [Prozac] 20 mg PO DAILY 02/22/22 [History Last Taken Unknown] lamotrigine [Lamictal] 25 mg PO DAILY 02/22/22 [History Last Taken Unknown] Allergy/AdvReac Type Severity Reaction Status Date / Time Penicillins Allergy Rash Verified 02/14/22 22:48 Surgical History History of appendectomy Social History adopted: Yes Smoking Status: Never smoker Electronic Cigarette Use: not used second hand exposure: No alcohol intake: never substance use type: does not use ROS ROS ED ROS Narrative Constitutional: No fever, no chills. HEENT: No sore throat. No neck pain. No loss of vision. No rhinorrhea. Cardiovascular: No chest pain. No palpitations. No pedal edema. Respiratory: No cough, no shortness of breath. Abdominal: No abdominal pain. No nausea. No vomiting. Genitourinary: No dysuria. No hematuria. Musculoskeletal: No myalgias. No arthralgias. Neurologic: No headaches. No dizziness. No lightheadedness. Skin: No rash. No change in color. Psychiatric: Positive depression. No anxiety. Positive command hallucinations. Positive suicidal ideation, continuing EXAM Physical Exam Narrative Exam Narrative: Afebrile. Vital signs noted. HEENT: Normocephalic. Atraumatic. PERRL, EOMI. Neck soft and supple. No point tenderness or step off. Cardiovascular: Regular rate and rhythm. No murmurs, rubs, or gallops appreciated. Respiratory: No tachypnea. Lungs clear to auscultation bilaterally. Gastrointestinal: Abdomen soft, nontender, with normoactive bowel sounds. No rebound or guarding. Neurological: Awake. Alert. Nonfocal, nonlateralizing. Skin: No rash. Normal color. No pallor. Musculoskeletal: No pedal edema. Full range of motion extremities. Const Vital Signs: 02/22/22 17:52 02/22/22 21:10 Temperature 97.8 F Temperature Source Temporal Pulse Rate 92 83 Respiratory Rate 16 16 Blood Pressure 149/90 H Blood Pressure Mean 109 Pulse Ox 100 100 Oxygen Delivery Method Room Air Room Air MDM MDM MDM Narrative Medical decision making narrative: Medical screening labs were obtained again. Hemoglobin stable at 11.1, chloride slightly elevated at 110. Alcohol level negative at 7.0. Covid swab negative. Urine is negative. Urine for drugs of abuse also negative. At this point in time, I do feel that she is medically cleared for transfer to a psychiatric facility. Patient discussed with case management who is currently attempting to get her transferred. She is in stable condition. I was informed by social work, that her case is being reviewed by [facility]. However, there may not be a bed available until tomorrow morning. Patient was updated of this. She will be signed out to the oncoming physician, Dr. Syed Peter, to make final disposition on this patient should she get a bed during the overnight shift. Currently, she is in stable condition. Lab Data Attestation: I reviewed the patient's lab results. Labs: Laboratory Results - last 24 hr 03/24/22 03/24/22 03/24/22 18:10 18:10 18:10 WBC 7.9 RBC 4.07 L Hgb 11.1 L Hct 33.5 L MCV 82.3 MCH 27.3 MCHC 33.1 RDW Std Deviation 41.4 RDW Coeff of Raj 14.0 Plt Count 427 MPV 10.1 Immature Gran % (Auto) 0.500 Neut % (Auto) 66.6 Lymph % (Auto) 23.1 [place] % (Auto) 6.6 Eos % (Auto) 2.8 Baso % (Auto) 0.4 Absolute Neuts (auto) 5.2 Absolute Lymphs (auto) 1.81 Nucleated RBC % 0 Sodium 139 Potassium 3.7 Chloride 110 H Carbon Dioxide 24.0 Anion Gap 5 BUN 15 Creatinine 1.01 Estim Creat Clear Calc 105.36 Est GFR (MDRD) Af Amer 89 Est GFR (MDRD) Non-Af 74 BUN/Creatinine Ratio 14.9 Glucose 109 H Calcium 9.1 Serum , Qual Urine Opiates Screen Urine Methadone Screen Ur Barbiturates Screen Ur Phencyclidine Scrn Ur Amphetamines Screen MDMA (Ecstasy) Screen U Benzodiazepines Scrn Urine Cocaine Screen U Cannabinoids Screen Ur Drug Screen Comment Ethyl Alcohol 7.0 02/22/22 02/22/22 18:10 18:45 WBC RBC Hgb Hct MCV MCH MCHC RDW Std Deviation RDW Coeff of Raj Plt Count MPV Immature Gran % (Auto) Neut % (Auto) Lymph % (Auto) [place] % (Auto) Eos % (Auto) Baso % (Auto) Absolute Neuts (auto) Absolute Lymphs (auto) Nucleated RBC % Sodium Potassium Chloride Carbon Dioxide Anion Gap BUN Creatinine Estim Creat Clear Calc Est GFR (MDRD) Af Amer Est GFR (MDRD) Non-Af BUN/Creatinine Ratio Glucose Calcium Serum , Qual NEGATIVE Urine Opiates Screen NEGATIVE Urine Methadone Screen NEGATIVE Ur Barbiturates Screen NEGATIVE Ur Phencyclidine Scrn NEGATIVE Ur Amphetamines Screen NEGATIVE MDMA (Ecstasy) Screen NEGATIVE U Benzodiazepines Scrn NEGATIVE Urine Cocaine Screen NEGATIVE U Cannabinoids Screen NEGATIVE Ur Drug Screen Comment Ethyl Alcohol Discharge Plan Triage Chief Complaint: Suicidal ED Provider: Shine Van Dx/Rx/DC Orders Prescriptions: No Action Alive 400 mcg- 25 mg tablet,chewable 1 tab PO DAILY RF: 0 lamotrigine [Lamictal] 25 mg Tablet 25 mg PO DAILY RF: 0 fluoxetine [Prozac] 20 mg Capsule 20 mg PO DAILY RF: 0 Primary Care Provider: Debra Smith NP
[2022-02-22 18:56] LABS: Absolute Lymphocyte Count 1.81 X10^3/uL (0.83-4.51); Absolute Neutrophil Count 5.2 X10^3/uL (2.0-7.7); Basophil# 0.03 X10^3/uL; Basophil% 0.4 % (0-1); Eosinophil# 0.22 X10^3/uL; Eosinophils% 2.8 % (0-5); Hematocrit 33.5 % (37-47); Hemoglobin 11.1 g/dL (12.0-15.0); Lymphocyte # 1.81 X10^3/ul (0.83-4.51); Lymphocyte % 23.1 % (19-41); Mean Corp Hgb Conc 33.1 g/dL (32-36); Mean Corpuscular Hgb 27.3 pg (27.0-32.0); Mean Corpuscular Volume 82.3 fL (81-99); Mean Platelet Vol. 10.1 fl (6.2-12.0); Monocyte# 0.52 X10^3/uL; Monocyte% 6.6 % (0-10); NRBC Flagged by Analyzer 0 % (0-5); Neutrophil # 5.23 X10^3/uL (2.7-7.7); Neutrophil % 66.6 % (47-70); Platelet Count 427 K/mm3 (150-450); RBC Distribution Width SD 41.4 fl (35.1-43.9); Red Blood Count 4.07 M/mm3 (4.2-5.4); White Blood Count 7.9 K/mm3 (4.4-11.0)
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
[2022-02-22 19:07] LABS: Anion Gap 5 (5-15); BUN 15 mg/dL (7-18); BUN/Creat Ratio 14.9 RATIO (10-20); Calcium,Total 9.1 mg/dL (8.5-10.1); Chloride 110 mmol/L (98-107); Creatinine, Serum 1.01 mg/dL (0.55-1.02); EST Glomerular Filtration Rate 74 mL/min (>60); Est Glom Filt Rate - Afr Amer 89 mL/min (>60); Estimated Creatinine Clearance 105.36 ml/min; Glucose 109 mg/dL (74-106); Potassium 3.7 mmol/L (3.5-5.1); Sodium Level 139 mmol/L (136-145)
[2022-02-22 19:19] LABS: Amphetamine Urine VISTA NEGATIVE (<1000 ng/mL); Barbiturate Urine VISTA NEGATIVE (< 200 ng/mL); Benzodiazepine Urine VISTA NEGATIVE (< 200 ng/mL); Cocaine Urine VISTA NEGATIVE (< 300 ng/mL); Ecstacy Urine VISTA NEGATIVE (< 500 ng/mL); Methadone Urine VISTA NEGATIVE (< 300 ng/mL); PCP Urine VISTA NEGATIVE (< 25 ng/mL); THC Urine VISTA NEGATIVE (< 50 ng/mL); Vista UDS pH Range 6
[2022-02-22 19:27] LABS: Internal QC Validated? YES +Cl - CLEAR BKGD; Pregnancy, Serum, hCG Quali. NEGATIVE Negative
--- NOTE | 2022-02-22 19:45 | CM.ED ---
WILIAN met with patient and asked her preference regarding placement ie return to [facility] or go to another psych facility. Patient said that she would prefer to return to [facility], where she had been in the past. WILIAN faxed referral to [facility]. WILIAN spoke to industrial services worker. They do have adult beds. Plan: Inpatient psych Vanessa LINTON
[2022-02-22 21:10] VITALS: PULSE 83; RESP 16; O2SAT 100
--- NOTE | 2022-02-22 22:23 | CM.ED ---
WILIAN Note WILIAN called Iman at [facility] in [place]. Iman said that she received the referral packet. Iman said that she has not reviewed it but will review it tonight and get back to staff at [facility]. 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 WILIAN updated expert medical writer WILIAN called Blank at [facility] and advised that patient is pending at [facility]. If patient is declined then Crisis will need to pursue other options. WILIAN faxed referral packet to Crisis. Plan: Inpatient psych. [facility] Pending Suzi LINTON
[2022-02-22 22:26] VITALS: BP 129/100; PULSE 78; RESP 18; O2SAT 99
[2022-02-22] MEDS: hydrOXYzine PAM 25 MG Capsule 50 MG PO (23:31)
[2022-02-23] VITALS (12 sets, daily range): BP systolic 123–126; BP diastolic 60–88; PULSE 77–86; RESP 16–18; O2SAT 100
[2022-02-23] MEDS: lamoTRIgine 25 MG Tablet PO (10:17)
[2022-02-23] MEDS: FLUoxetine 20 MG Capsule PO (10:17)
[2022-02-23] MEDS: Acetaminophen 500 MG Tablet 1000 MG PO (10:41)
--- NOTE | 2022-02-23 12:07 | CM.ED ---
WILIAN noted patient is still in the ED. When this insurance underwriter left last night Ebony from [facility] said that she would make a determination about acceptance and hopefully patient would be accepted by [facility] and could leave in the morning for [place]. WILIAN spoke to Annabelle Gamino and [facility] is waiting for a bed. WILIAN called [facility] and spoke to Oliva. Oliva said that patient had been accepted by Dr. Terrell. Going to the C Unit on the acute side. Oliva asked if patient signed voluntary and case management social worker said no as patient has not been faxed information. Oliva said that when patient from their unit is discharged patient can come to [facility] which she is anticipating early afternoon. SW updated patient about progress regarding going to [facility]. Patient confirmed that she wanted to go to [facility] as she was aware of the program. SW asked patient if she wanted to sign voluntary and she agreed to sign voluntary. SW met with patient and her , Dex. Dex agreed that he and the family will care for the nb while patient is getting psychiatric treatment. Patient was educated on [facility] services. Patient was open to a [facility] referral. Patient said that she is linked with [facility] and care center. Patient was open to referral to [facility]. SW also provided patient with information on [employer] through [facility]. SW made [facility] referral. SW spoke with Moises from [facility] and patient is cooperating and doing everything that is recommended for her regarding treatment. Patient reports medication compliance, developed a safety plan with IOP/PHP, and voluntary signed for treatment. Thus, patient is taking measures to ensure her safety and her child's safety and hopefully with treatment at [facility] patient's symptoms will resolve. However, this insurance underwriter will speak to [facility] case management social worker and educate her that if they have concerns when patient is discharged from her treatment at [facility] to contact [facility]. Plan: [facility] Suzi LINTON
--- NOTE | 2022-02-23 13:22 | CM.ED ---
WILIAN Note WILIAN called Debra at [facility]. Debra said that patient is going to [id number]. Debra said that it is fine to schedule transport. Debra said that the ED secondary social studies teacher has to enter the information on their board but the ED secondary social studies teacher told her (debra) she would do it shortly. Debra said that it was ok to schedule transport. Debra will call back with the number for RN to RN report once the patient is entered into their system. Flora called for transport. Flora said transport will be here in 30 minutes. WILIAN called Joy Fagan,secondary social studies teacher at [facility] and left confidental voice mail message advising that if they have any concerns when patient is discharged regarding the nb to call [facility] in [facility]. Patient was updated regarding discharge time. Suzi LINTON
--- NOTE | 2022-02-23 13:43 | CM.ED ---
WILIAN called Debra at [facility] and advised transport will be here shortly. Debra said that RN is to call Nurse to Nurse at [phone]. Patient is to come through the ED. WILIAN provided report number to DEZ Reynolds. [facility]
== END 2022-02-23 14:21 ==
PROVIDERS: Emergency Provider Emergency Medicine; PCP Nurse Practitioner Family; Visit Provider Emergency Medicine
DX: O99.345 Other mental disorders complicating the puerperium (principal); R45.851 Suicidal ideations; F53.0 Postpartum depression; Z79.899 Other long term (current) drug therapy
CPT/HCPCS: 90834; 80048; 80307; 82077; 84703; 85025; 87811; 99285; H2020; S9480

== ENCOUNTER 2022-03-07 08:00 | Outpatient (RCR) | payer MEDICAID, SELFPAY ==
--- NOTE | 2022-03-07 11:49 | BH.COMM_ITS ---
Communication Note - Communication with Client Communication Note: Met with patient and her to complete initial p aperwork, gather updated information following recent inpatient hospitalization, assess for risk, and complete safety planning. Pt currently appears to be a moderate to high risk, given 2 recent hospitalizations for suicidal and homicidal ideation in the past month. Pt was hospitalized via EMS on 02/14 following attempted overdose on Percocet and was transported to [facility] in [place] following medical stabilization. She was again escorted to the [facility] ED on 02/22/22, date of IOP readmission, at the request of this therapist and program psychiatrist following reports of increased auditory command hallucinations instructing pt to harm herself and resulting in increased SI with a plan to overdose on her psychiatric medications. Pt reported increased difficulties in tolerating stress related to caregiving for her and disclosed auditory command hallucinations to ?make him stop crying?, later revealing to social work in the ED that she had a plan for harming her child as well. Pt was again hospitalized at [facility] in [place] for mental health evaluation and stabilization from 02/23-02/26. Pt reports medications were adjusted at that time (see psych evaluation for additional info) and she has not experienced any SI/HI, plan or intent since discharge. Denies any hallucinations or delusions since hospitalization as well. Reports some intrusive thoughts of self-harming via cutting but denies active plan or intent. Pt and receptive or lethal means counseling. Pt reports has all of her medications secured in a lockbox which she does not have access to. Reports has also secured all knives and sharp objects in the home as well. Denies access to firearms. Reports she has strong family support and help with childcare. 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 Pt has several safety plans, has called crisis for support in the past, and reports she utilizes support (, close friend in [place], and parents), as well as distraction and is willing to reach out to supports or go to the ED if unable to maintain safety of self or others at anytime. Scheduled to meet with individual therapist Saturday and begin marriage counseling today. Will meet with program psychiatrist accompanied by her today as well. Reviewed safety plan and will continue to follow closely given level of risk.
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
--- NOTE | 2022-03-07 13:17 | BH.DR.ITP ---
Initial Treatment Plan Patient Information Visit Information: ADMISSION DATE: EXPECTED LOS: 4-6 weeks Problems/Symptoms Problem #1:: Mood instability Symptom:: Mild elevation of mood, biological disruption of sleep, irritability, anger, guilt, decreased appetite Problem #2:: Anxiety Symptom:: Worry, panic attacks
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
--- NOTE | 2022-03-12 12:03 | BH.COMM_ITS ---
Communication Note - Communication with Client Communication Note: Pt arrived for group on this date but shortly after in dicated struggling with increased abdominal pain. Noted feeling she needs to be seen by a physician and has plans to reach out to primary care provider for further instruction and to determine if she should seek emergency services.
--- NOTE | 2022-03-14 08:54 | BH.SGPN.GN ---
Behaviors/Verbalizations/Mental Status: []Pt alert and oriented, casually dressed and groomed. Eye contact good, motor activity appropriate, speech within normal limits. Affect, congruent. Mood, euthymic and anxious. Thoughts linear, logical, no signs of hallucinations or delusions. Reviewed pt's daily symptom tracker, no SI indicated. Client Response/Progress/Benefit: []Pt responded well to session, engaged and positive throughout. Pt reports feeling hopeful and motivated this morning. Discussed a recent trigger that reminded pt of the importance of working on her mental health not only for herself but also for her loved ones. Pt discussed that she has struggled with allowing herself to ask for help or take time to work on her own mental health, but feels more motivated to do so now. Pt discussed that she does not want to think about the impact it would have on her if she were not around. Discussed taking steps to brighten up her home environment and surround herself with more positive messages to help challenge negative thoughts when they arise. Appeared to benefit from encouragement and supportive feedback provided by group. Will continue IOP tx to continue to continue to maintain safety, reinforce healthy coping skills, and promote mood stability. Narrative Note: []
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
--- NOTE | 2022-03-15 13:39 | BH.COMM ---
Communication Note - Communication with Client Communication Note: Pt arrived for IOP group on this date indicating feeling really anxious and not knowing if she wanted to stay as she was feeling overwhelmed in the group environment. Additionally, expressed concerns that she is feeling more anxious because her medications aren't working. Therapist reminded pt that her medications had just been adjusted the previous date and may take some time to take effect. Normalized pt anxiety given current stressors and walked pt through several grounding exercises to aid in reducing immediate anxiety sx. Pt receptive of this and expressed feeling somewhat calmer. Encouraged to take the remainder of time time group is in process group to continue practicing her calming skills independently and try to engage in 2nd and third groups. Pt receptive of this plan; however, at start of 2nd group indicated plans to leave for the day to focus on self-care spend time with supports as she reports feeling this will better aid in reducing anxiety. Reports plans to attend IOP group on Saturday as scheduled.
--- NOTE | 2022-03-19 09:00 | BH.SGPN.GN ---
Behaviors/Verbalizations/Mental Status: [] Eye contact is fair. Motor activity is appropriate. Appearance is casual. Speech is Appropriate. Mood is depressed. Affect is constricted. Thoughts are linear and logical. No evidence of psychosis. Reviewed daily check in sheet and no reports of suicidal ideations or intent. Client Response/Progress/Benefit: [] Pt was an active participant in group discussion. Active participant. Pt stated I feel like I'm standing still and world is just moving around me. Pt reported she feels numb and believes this is because of her medications. Pt stated she also has been getting easily agitated over the last few days. Pt reported she is getting upset and irritated about things that typically she could handle. 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 Pt stated she chose to not attend the funerals because did not feel like she could handle it at this time. Pt identified mental health win as stepping away when she was feeling irritable. Benefited from group support, encouragement, and feedback. Will continue in IOP to prevent decompensation, stabilize mood, and increase health coping.
--- NOTE | 2022-03-19 11:15 | BH.SGPN.GN ---
Behaviors/Verbalizations/Mental Status: []Client alert and oriented, casually dressed and groomed. Eye contact good. Motor activity appropriate. Speech within normal limits. Affect congruent, mood dysthymic, anxious, irritable. Thoughts linear, logical, no signs of hallucinations or delusions. Client Response/Progress/Benefit: []Pt was engaged throughout AEB participating in discussion and taking notes. Pt reported connecting with psychoeducation portion reviewing importance of identifying physical warning signs for anger. Contributed as group brainstormed healthy coping skills for better managing anger which included: deep breathing, journaling, focusing on what?s in their control in the moment, exercise, communicating with supports when calm, and self-reflection. Pt appeared to benefit from identifying different techniques to manage anger as well as gaining awareness of the costs of anger. Pt reported anger is new for her as she used to be able to better manage her emotions but now if finding that when anger is unmanaged she lashes out on her supports and has urges to break things. Pt selected proactively communicating with supports and more consistently engaging in exercise as strategies for better managing her anger. Will continue IOP tx to maintain safety, prevent decompensation, and continue to promote use of emotional regulation skills. Narrative Note: []
--- NOTE | 2022-03-19 13:46 | BH.MDN_ITS ---
Multi-Disciplinary Note - Note 45-min Individual Time Started:: 10:25 Date: 03/19/22 Purpose of session/treatment goals addressed:: Reviewed progress and current barriers impacting pt overall tx engagement. Provided psychoeducation on bipolar disorder and worked with pt to challenge current expectations of self. Eye Contact:: Good Motor Activity:: Appropriate, Restless Appearance:: Neat, Casual Speech:: Appropriate Mood:: Anxious, Depressed Affect:: Congruent Thoughts:: Logical, Racing, No evidence of hallucinations/delusions noted Staff Interventions:: thought challenging, motivational interviewing, psychoeducation on: - Bipolar Disorder, strengths perspective, other - discussed expectations of self and importance of communicating needs with supports Client Response:: Pt presents to session as anxious and agitated. Reports feeling frustrated as she does not believe her medications are working and believes this has contributed to ongoing difficulties in managing her emotions. Pt reports increased agitation and mood swings over the past several days, struggling to connected changes in mood with current stressors and limited application of emotion regulation skills when feeling overwhelmed or agitated. Receptive of working with therapist to identify and begin challenging her current expectations of herself and the recent medication changes. Able to acknowledge that she has been expecting to see changes in mood stability and decreases in depression and anxiety immediately. Reports knowing that this may not be realistic and pt was receptive of conversation regarding the importance of developing healthy distress tolerance skills and gaining more insight into her own mental health dx in order to begin seeing progress. Self-admits that she has not allowed herself to give IOP tx much of a ?chance to work? as she has only attended one full day of tx since admission 2 weeks ago. Reports willingness to set a goal for herself to attend all scheduled IOP sessions this week. Pt and therapist additionally discussed expectations she has for herself and her functioning when at home. Pt identified expecting herself to be able to care for her at night and function ?normally? the next day but has been finding this to be difficult. Reports caring for her son at night continues to be a trigger for increased irritability and poor emotion regulation the next day. Denies any thoughts of harming her son when agitated but acknowledges verbally taking her frustrations out on her and self the next day. Discussed options for reducing this stressor as pt continues to work on improving emotion regulation skills and is more consistently stable. Pt expressed plans to sit down with her supports to discuss not staying alone with her son over night as this is too overwhelming for her and create a plan of care for him that also allows pt to ease into full caregiving responsibilities as she continues to progress in IOP tx. Current plan is to ask her parents and in-laws to alternate keeping her son overnight on the days her works nights. Risks/Concerns:: No risks or concerns noted. Pt denies any active SI, plan, or intent as of this date. Reports passive thoughts of yesterday but denies that they were active or having any intent. Reports her goals for her future and her are her primary protective factors. Pt aware of and willing to reach out to crisis services should she feel unable to maintain safety at any time. Pt denies any HI, plan, or intent as of this soni, 03/19/22. Progress Toward Goals/Plan:: Progress limited since last session, reports feeling less hopeful and more agitated over the past several days. Self-reports relying primarily on medication to improve her mental health and able to recognize limitation of treating her mental health with medication alone. Does report reaching out and being more open with supports which has been helpful. Shared speaking to two supports about their Bipolar Dx and feeling this was beneficial in normalizing the emotions she has been experiencing as a result. Denies SI, plan, or intent. Does endorse passive thoughts of without plan or intent last occurring yesterday. Reports increased urges to self-harm but denies acting on these thoughts, nor does she have plans to. Denies access to any lethal means. Denies any HI, plan, or intent at this time as well. She has weekly counseling appointments with outpatient [facility] Time Stopped:: 11:05
--- NOTE | 2022-03-21 11:47 | BH.COMM_ITS ---
Communication Note - Communication with Client Communication Note: Pt scheduled for IOP group on this date; however, called and cancelled with net front end developer this morning. Indicated that she is struggling financially and plans to go into work today. Expressed that she is additionally in need of medication refills and would like to see if program psychiatrist would be able to refill these today as well. Therapist attempted to return pt's call to clarify medication needs as well as discuss concerns regarding pt attendance. Pt has been in the IOP program for 2 weeks and has only attended 2 full group days in that time. Therapist however unable to reach pt and a message was left encouraging pt to return this therapist's call.
--- NOTE | 2022-03-22 08:47 | BH.COMM ---
Communication Note - Communication with Client Communication Note: Pt called in indicating that she would no longer like to do the IOP program. Cited finances, a desire to be back in the work environment, difficulties in ability to commit to twice weekly attendance, and discomfort in the group environment. Reports plans to continue with individual outpatient counseling and reach out to Dr. Terrell whom she had seen while inpatient for continued outpatient medication management. Pt rx were refilled by program psychiatrist yesterday. Pt reports next individual session scheduled for 03/27/22.
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
== END 2022-03-22 09:23 | disposition home or self-care (01) ==
LOC: BHIOP 08:00
PROVIDERS: PCP Nurse Practitioner Family; Referring Provider Psychiatry & Neurology Psychiatry; Visit Provider Psychiatry & Neurology Psychiatry
DX: F31.81 Bipolar II disorder (principal); F43.10 Post-traumatic stress disorder, unspecified; F41.1 Generalized anxiety disorder; Z91.51 Personal history of suicidal behavior; J45.909 Unspecified asthma, uncomplicated; Z79.899 Other long term (current) drug therapy
CPT/HCPCS: 90792; 99214; H2012; S9480; 90832; 90834

== ENCOUNTER 2022-03-08 22:53 | Emergency (ER) | payer MEDICAID, SELFPAY ==
[2022-03-08 22:55] VITALS: BP 157/74; PULSE 104; RESP 16; TEMP 36.5; O2SAT 100; BMI 39.2
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
[2022-03-08] MEDS: LORazepam 2 MG/ML Syringe 1 MG IM (23:23)
[2022-03-09 00:51] VITALS: BP 134/95; PULSE 78; RESP 18; O2SAT 96
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
== END 2022-03-09 00:52 | disposition home or self-care (01) ==
PROVIDERS: Emergency Provider Emergency Medicine; PCP Nurse Practitioner Family; Visit Provider Emergency Medicine
DX: F41.0 Panic disorder [episodic paroxysmal anxiety] (principal)
CPT/HCPCS: 96372; 99284

== ENCOUNTER 2022-04-28 23:59 | Emergency (ER) | payer MEDICAID, SELFPAY ==
[2022-04-29 00:01] VITALS: BP 146/95; PULSE 115; RESP 17; TEMP 36.7; O2SAT 94; BMI 41.9
--- NOTE | 2022-04-29 00:48 | ED.RN ---
nurse called in to the room and patient no longer wants to file workers comp. Registration and drug screener made aware of this
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
[2022-04-29 01:10] VITALS: BP 146/95; PULSE 95; RESP 20; O2SAT 100
== END 2022-04-29 01:11 | disposition home or self-care (01) ==
PROVIDERS: Emergency Provider Emergency Medicine; PCP Nurse Practitioner Family; Visit Provider Emergency Medicine
DX: J45.901 Unspecified asthma with (acute) exacerbation (principal); F31.81 Bipolar II disorder; F41.9 Anxiety disorder, unspecified; Z79.899 Other long term (current) drug therapy
CPT/HCPCS: 99284

== ENCOUNTER 2022-09-19 13:58 | Outpatient (RCR) | payer MEDICAID, SELFPAY | END 2022-10-01 23:59 | LOC: NS 13:58 | PROVIDERS: PCP Nurse Practitioner Family; Visit Provider Nurse Practitioner Family | DX: Z71.3 Dietary counseling and surveillance (principal); E66.9 Obesity, unspecified | CPT/HCPCS: 97802 ==

== ENCOUNTER 2022-10-19 20:59 | Emergency (ER) | payer OTHER, MEDICAID, SELFPAY ==
[2022-10-19 20:59] VITALS: BP 118/78; PULSE 88; RESP 14; TEMP 36.6; O2SAT 100; BMI 42.1
--- NOTE | 2022-10-19 21:34 | EDS_ITS ---
HPI History of Present Illness Chief Complaint: Back Detail of Chief Complaint: Back pain/injury Informant: patient Narrative Narrative: Patient presents the emergency department with complaint of worsening back pain since injuring it today around 2 PM. 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 There was no fall. Patient went to urgent care and filled out a first report of injury and was given work restrictions. Patient was given Toradol as well as a muscle relaxer but she continues to have pain. She is got at times some pain radiating down her right lateral thigh to about mid thigh. She denies weakness of the extremities. She denies change in bowel or bladder function. [facility] Medical History Bipolar 2 disorder delivery delivered Depression Diabetes Generalized anxiety disorder Migraine PTSD (post-traumatic stress disorder) TBI (traumatic brain injury) Home Medications fluoxetine 20 mg capsule (Prozac) 10 mg PO DAILY 02/22/22 [History Last Taken Unknown] lamotrigine 150 mg tablet (Lamictal) 150 mg PO DAILY 30 days #30 tabs 03/14/22 [Rx Last Taken Unknown] aripiprazole 10 mg tablet (Abilify) 10 mg PO QHS 30 days #30 tabs 03/21/22 [Rx Last Taken Unknown] hydroxyzine HCl 50 mg tablet 50 mg PO TID PRN panic attack(s) 30 days #90 tabs 03/21/22 [Rx Last Taken Unknown] prednisone 20 mg tablet 60 mg PO DAILY #15 tabs 04/29/22 [Rx Last Taken Unknown] hydrocodone-acetaminophen 5-325mg 5mg-325mg 1 tab PO Q4H PRN PRN Pain 2 days #15 TABLETS 10/19/22 [Rx Last Taken Unknown] Allergy/AdvReac Type Severity Reaction Status Date / Time Penicillins Allergy Rash Verified 03/08/22 22:59 Surgical History History of appendectomy Social History adopted: Yes Smoking Status: Never smoker Electronic Cigarette Use: not used second hand exposure: No alcohol intake: never substance use type: does not use ROS ROS ED Review of Systems ROS Unobtainable: other Constitutional Constitutional ED: Reports lethargy; Denies chills, fever(s), sweats or weight loss Eyes Eyes: Denies blurry vision, change in vision or diplopia ENT ENT ED: Denies rhinorrhea or sore throat Cardiovascular Cardiovascular: Denies chest pain, orthopnea or racing heartbeat Respiratory/Chest Respiratory/Chest: Denies cough, dyspnea, dyspnea on exertion, orthopnea or sputum Gastrointestinal Gastrointestinal: Denies abdominal pain, diarrhea, nausea or vomiting Genitourinary Genitourinary ED: Denies dysuria, hematuria or urinary frequency Musculoskeletal Musculoskeletal: Reports back pain; Denies arthralgias, myalgias or neck pain Integumentary Denies abscess, Abrasions or rash Neurologic Neurologic: Denies headache(s) or weakness Psychiatric Psychiatric: Denies anxiety, depression or suicidal thoughts Endocrine Endocrinology: Denies polydipsia, polyphagia or polyuria Hematologic/Lymphatic Hematologic/Lymphatic: Denies easy bleeding, easy bruising or lymphadenopathy Allergic/Immunologic Allergic/Immunologic ED: Denies mouth swelling, tongue swelling or urticaria EXAM Physical Exam Const Vital Signs: 10/19/22 20:59 Temperature 97.8 F Temperature Source Temporal Pulse Rate 88 Respiratory Rate 14 Blood Pressure 118/78 Blood Pressure Mean 91 Pulse Ox 100 Oxygen Delivery Method Room Air Positive well nourished and well developed General Appearance ED: well developed and NAD HEENT Reports TM's clear and moist mucous membranes normocephalic and atraumatic; Negative for trauma or tenderness Tympanic Membrane ED: Yes TM's clear Eyes PERRL and EOMs intact bilaterally General Eye ED: Negative for pale conjunctiva or scleral icterus Neck no lymphadenopathy, supple and no JVD General: Negative for tenderness Chest Wall inspection of chest normal and palpation of chest normal Chest: Negative for tenderness Resp normal respiratory effort and clear to auscultation bilaterally Effort and Inspection: Negative for respiratory distress or pain with movement Auscultation: Negative for rhonchi, wheezes or diminished lung sounds Cardio regular rate, regular rhythm, S1 normal heart sound, S2 normal heart sound and no murmurs Peripheral Pulses: pulses 2+ throughout GI normal to inspection, nondistended, normoactive bowel sounds, soft to palpation, non-tender, non-distended and no masses Back/Spine Back/Spine Narrative: Patient has no tenderness over thoracic or lumbar spine. Patient does have some tenderness over right lumbar paraspinal musculature. She has negative straight leg raises. Deep tendon reflexes are plus 2 out of 4 bilaterally at the patella and Achilles. Patient has normal L5 extension bilaterally. Patient has normal sensation to light touch. Extremity normal to inspection General Extremety ED: Negative for edema General Extremity: Negative for edema Neuro oriented x3, CN's II-XII intact bilaterally, no sensory deficits noted and gait normal Sensorium / Orientation: awake, alert, oriented to person, oriented to place and oriented to time Motor Exam: strength 5/5 throughout and strength abnormal Psych mental status grossly normal Skin no rashes or lesions noted and no wounds MDM MDM MDM Narrative Medical decision making narrative: Patient was given a milligram of Dilaudid IM. At this point I discussed with the patient that I did not feel x-rays are indicated as she has had no trauma other than the twisting motion. I suspect this is more muscular type pain or potentially herniated disc although my suspicion is low for this. I do not feel she needs emergent MRI. Patient is comfortable with plan going forward and I will write her prescription for [place] for pain. Patient advised to follow-up with [facility] within the next 3 to 5 days. Patient advised to return if she should develop any cauda equina type symptoms which we went over today. Discharge Plan Triage Chief Complaint: Back ED Provider: Obi Quinteros Dx/Rx/DC Orders Clinical Impression: Back pain, Acute lumbar myofascial strain Instructions: ED Back Sprain/Strain Prescriptions: New hydrocodone-acetaminophen [hydrocodone-acetaminophen] 5-325 mg tablet 1 tab PO Q4H PRN PRN (Reason: Pain) 2 Days Qty: 15 0RF No Action fluoxetine [Prozac] 20 mg Capsule 10 mg PO DAILY hydroxyzine HCl 50 mg tablet 50 mg PO TID PRN (Reason: panic attack(s)) 30 Days Qty: 90 1RF aripiprazole [Abilify] 10 mg tablet 10 mg PO QHS 30 Days Qty: 30 1RF lamotrigine [Lamictal] 150 mg tablet 150 mg PO DAILY 30 Days Qty: 30 1RF prednisone 20 MG tablet 60 mg PO DAILY Qty: 15 0RF Primary Care Provider: Debra Smith NP [facility] [[facility] of Phys[facility]] - 3-5 Days Smith,Debra DIVISION OPERATIONS MANAGER, DIVISION OPERATIONS MANAGER-C [Primary Care Provider] - Disposition Disposition: Home, Self Care
[2022-10-19] MEDS: HYDROmorphone 1 MG/ML Syringe IM (21:46)
== END 2022-10-19 22:06 | disposition home or self-care (01) ==
PROVIDERS: Emergency Provider Emergency Medicine; PCP Nurse Practitioner Family; Visit Provider Emergency Medicine
DX: S39.012A Strain of muscle, fascia and tendon of lower back, initial encounter (principal); X58.XXXA Exposure to other specified factors, initial encounter
CPT/HCPCS: 96372; 99282

== ENCOUNTER 2022-10-24 10:30 | Outpatient (RCR) | payer MEDICAID, SELFPAY | END 2022-10-31 23:59 | LOC: NS 10:30 | PROVIDERS: PCP Nurse Practitioner Family; Visit Provider Nurse Practitioner Family | DX: Z71.3 Dietary counseling and surveillance (principal); E66.9 Obesity, unspecified | CPT/HCPCS: 97803 ==

== ENCOUNTER 2022-11-14 10:23 | Outpatient (RCR) | payer MEDICAID, SELFPAY | END 2022-12-01 23:59 | LOC: NS 10:23 | PROVIDERS: PCP Nurse Practitioner Family; Visit Provider Nurse Practitioner Family | DX: Z71.3 Dietary counseling and surveillance (principal); E66.9 Obesity, unspecified | CPT/HCPCS: 97803 ==

== ENCOUNTER → 2023-02-23 | Outpatient (CLI) | payer MEDICAID, SELFPAY | END | disposition home or self-care (01) | LOC: LAB 10:51 | PROVIDERS: PCP Nurse Practitioner Family | DX: F31.62 Bipolar disorder, current episode mixed, moderate (principal) | CPT/HCPCS: 36415; 80178 ==

== ENCOUNTER 2023-06-05 11:51 | Emergency (ER) | payer MEDICAID, SELFPAY ==
[2023-06-05 11:53] VITALS: BP 135/93; PULSE 82; RESP 15; TEMP 36.1; O2SAT 99; BMI 41.4
--- NOTE | 2023-06-05 12:22 | RAD_ITS ---
STUDY: X-RAY - RIGHT WRIST REASON FOR EXAM: Female, 23 years old. Injury/Pain -- With navicular view please TECHNIQUE: 4 view(s) of the wrist were obtained. COMPARISON: None. FINDINGS: Normal visualized distal radius and ulna. Normal radiocarpal articulation. Normal distal radioulnar articulation. Normal carpal bones. Normal carpal articulations. Normal carpometacarpal articulation of the thumb. Normal second through fifth carpometacarpal articulations. Normal visualized metacarpal bones. The soft tissue structures are unremarkable. RAD/Wrist min 3 Views IMPRESSION: Normal x-ray examination of the wrist. Electronically Signed: Brock Augustin MD at 12:40 EDT ,
--- NOTE | 2023-06-05 12:22 | RAD_ITS ---
STUDY: X-RAY - RIGHT RADIUS AND ULNA REASON FOR EXAM: Female, 23 years old. Injury/Pain TECHNIQUE: 2 view(s) of the forearm. COMPARISON: None. FINDINGS: There is no demonstrated soft tissue swelling. Normal visualized radius. Normal visualized ulna. RAD/Forearm 2 Views IMPRESSION: Normal x-ray examination of the radius and ulna. Electronically Signed: Brock Augustin MD at 12:39 EDT ,
--- NOTE | 2023-06-05 12:25 | EDS_ITS ---
HPI History of Present Illness HPI Narrative: Patient presents with pain to her right wrist and forearm that began after a fall 3 days ago. Patient states she slipped and fell and landed on her outstretched right hand. Patient describes her pain as sharp. Patient states she thought it was just bruised and would get better. Patient states the pain has been persistent. Patient is now concerned that there may be a fracture in her wrist or forearm. Patient admits to some tingling into her fingers but states this is brief and intermittent. Patient denies any weakness. Patient denies any head injury or loss of consciousness with the fall. Patient denies any other injuries. Chief Complaint: Upper Extremity Injury Informant: patient Occured/Mechanism Mechanism/Context: Yes fall Onset/Context/Timing Onset: Days (4) Context: Onset with activity Timing: Continuous Quality of Pain: Sharp Location: Right wrist and forearm Worsened by: Nothing Relieved by: Nothing Associated Symptoms Associated Symptoms: Positive for Parasthesia; Negative for Weakness or Loss of Funtion [facility] Medical History (Updated 06/05/23 @ 13:[address] Karthik Granda, DO) Bipolar 2 disorder delivery delivered Depression Diabetes Generalized anxiety disorder Migraine PTSD (post-traumatic stress disorder) TBI (traumatic brain injury) Home Medications fluoxetine 20 mg capsule (Prozac) 10 mg PO DAILY 02/22/22 [History Last Taken Unknown] lamotrigine 150 mg tablet (Lamictal) 150 mg PO DAILY 30 days #30 tabs 03/14/22 [Rx Last Taken Unknown] aripiprazole 10 mg tablet (Abilify) 10 mg PO QHS 30 days #30 tabs 03/21/22 [Rx Last Taken Unknown] hydroxyzine HCl 50 mg tablet 50 mg PO TID PRN panic attack(s) 30 days #90 tabs 03/21/22 [Rx Last Taken Unknown] prednisone 20 mg tablet 60 mg (3 x 20 mg) PO DAILY #15 tabs 04/29/22 [Rx Last Taken Unknown] hydrocodone-acetaminophen 5-325mg 5mg-325mg 1 tab PO Q4H PRN PRN Pain 2 days #15 TABLETS 10/19/22 [Rx Last Taken Unknown] Allergy/AdvReac Type Severity Reaction Status Date / Time Penicillins Allergy Rash Verified 03/08/22 22:59 Surgical History (Updated 06/05/23 @ 12:[address] Karthik Granda DO) H/O section History of appendectomy Social History adopted: Yes Smoking Status: Never smoker Electronic Cigarette Use: not used second hand exposure: No alcohol intake: never substance use type: does not use ROS ROS ED Constitutional Constitutional ED: Denies chills or fever(s) Eyes Eyes: Denies blurry vision or change in vision ENT ENT ED: Denies rhinorrhea or sore throat Cardiovascular Cardiovascular: Denies chest pain or palpitations Respiratory/Chest Respiratory/Chest: Denies cough or dyspnea Gastrointestinal Gastrointestinal: Reports nausea; Denies vomiting Genitourinary Genitourinary ED: Denies dysuria or hematuria Musculoskeletal Musculoskeletal: Denies back pain or neck pain Integumentary Denies abscess or rash Neurologic Neurologic: Reports headache(s); Denies weakness Allergic/Immunologic Allergic/Immunologic ED: Denies mouth swelling or urticaria EXAM Physical Exam Const Vital Signs: 06/05/23 11:53 Temperature 96.9 F L Temperature Source Temporal Pulse Rate 82 Respiratory Rate 15 Blood Pressure 135/93 H Blood Pressure Mean 107 Pulse Ox 99 Oxygen Delivery Method Room Air Positive well nourished, well developed and obese General Appearance ED: well developed and NAD Nutritional Appearance: obese HEENT Reports moist mucous membranes Neck full ROM and supple Extremity Extremity Narrative: There is tenderness over the radial and ulnar aspects of the right wrist. There is also tenderness over the right forearm. There is no edema or ecchymosis. There is no obvious deformity noted. Range of motion was slightly limited in all motions of the right wrist as well as pronation and supination of the right forearm secondary to pain. Strength is 5/5 in the radial, median, and ulnar areas. Sensation was intact to light touch in the radial, median, and ulnar areas. Radial pulses are equal bilaterally. Neuro oriented x3, CN's II-XII intact bilaterally, moves all extremities, no focal motor deficits and no sensory deficits noted Sensorium / Orientation: alert Motor Exam: strength 5/5 throughout Psych mental status grossly normal MDM MDM MDM Narrative Medical decision making narrative: Differential diagnosis includes wrist fracture, forearm fracture, sprain, and contusion. X-rays of the right wrist and right forearm will be obtained to assess for fracture. Radiography Diagnostic Testing: X-rays of the right wrist were obtained. There are 4 views. On my independent interpretation, there is no acute fracture or dislocation. There is no soft tissue swelling. Radiologist also interpreted the x-rays and agrees. X-rays of the right forearm were obtained. There are 2 views. On my independent interpretation, there is no acute fracture or dislocation. There is no soft tissue swelling. Radiologist also interpreted the x-rays and agrees. Treatment and Re-Evaluation Narrative: Patient was advised of her findings. Patient was advised that since she has tenderness over the anatomic snuffbox, there could be an occult scaphoid fracture. Patient was placed in a thumb spica splint. Patient was instructed to follow-up with her primary care physician in 5 to 7 days. Patient was advised that if she was still having pain at that time a repeat x-ray may need to be obtained to assess for occult fracture of the scaphoid. Patient understood and was agreeable with the plan. All questions were answered. Discharge Plan Triage Chief Complaint: Upper Extremity Injury ED Provider: Karthik Granda Dx/Rx/DC Orders Clinical Impression: Fall, Right wrist sprain Instructions: ED Wrist Sprain Prescriptions: No Action fluoxetine [Prozac] 20 mg Capsule 10 mg PO DAILY hydroxyzine HCl 50 mg tablet 50 mg PO TID PRN (Reason: panic attack(s)) 30 Days Qty: 90 1RF aripiprazole [Abilify] 10 mg tablet 10 mg PO QHS 30 Days Qty: 30 1RF lamotrigine [Lamictal] 150 mg tablet 150 mg PO DAILY 30 Days Qty: 30 1RF prednisone 20 MG tablet 60 mg PO DAILY Qty: 15 0RF hydrocodone-acetaminophen [hydrocodone-acetaminophen] 5-325 mg tablet 1 tab PO Q4H PRN PRN (Reason: Pain) 2 Days Qty: 15 0RF Primary Care Provider: Magda Campoverde NP Referrals: Magda Campoverde NP, PARKING LINE PAINTER-C [Primary Care Provider] - 5-7 Days Disposition Disposition: Home, Self Care
== END 2023-06-05 13:26 | disposition home or self-care (01) ==
PROVIDERS: Emergency Provider Emergency Medicine; PCP Nurse Practitioner Family; Visit Provider Emergency Medicine
DX: S63.91XA Sprain of unspecified part of right wrist and hand, initial encounter (principal); E66.9 Obesity, unspecified; W19.XXXA Unspecified fall, initial encounter
CPT/HCPCS: 73090; 73110; 99283

== ENCOUNTER → 2023-07-10 | Outpatient (CLI) | payer MEDICAID, SELFPAY ==
--- NOTE | 2023-07-10 12:55 | CT_ITS ---
STUDY: CT ABDOMEN WITH CONTRAST REASON FOR EXAM: Female, 23 years old. HYPOGLYCEMIA RADIATION DOSAGE (If Supplied By Facility): CTDIvol = ( 16.55 ) mGy, DLP = ( 723.64 ) mGycm TECHNIQUE: Transaxial images were obtained post I.V. administration of Oral and amp; IV Readi-CAT and amp; 100mL Isovue-300, and with oral contrast. Sagittal and coronal images were reconstructed. Individualized dose optimization techniques were used for this CT. COMPARISON: None. FINDINGS: The visualized lung bases are unremarkable. The visualized portions of the heart are within normal limits. Normal liver. Normal gallbladder and extrahepatic biliary system. Normal spleen. Normal pancreas. Normal bilateral adrenal glands. Normal right kidney. Normal left kidney. Normal visualized stomach. Normal small intestine. Normal colon. The appendix is visualized and appears normal. Normal abdominal aorta. Normal inferior vena cava. Normal retroperitoneum. Normal abdominal wall. Normal osseous structures. CT/Abdomen WITH IV Contrast IMPRESSION: Normal enhanced CT of the abdomen. Electronically Signed: Brock Augustin MD at 14:06 EDT ,
== END | disposition home or self-care (01) ==
PROVIDERS: Referring Provider Nurse Practitioner Family; Visit Provider Nurse Practitioner Family
DX: E16.1 Other hypoglycemia (principal)
CPT/HCPCS: 74160; Q9967

== ENCOUNTER 2023-08-20 13:44 | Inpatient (IN) | payer MEDICAID, SELFPAY ==
[2023-08-20 13:45] VITALS: BP 119/61; PULSE 91; RESP 18; TEMP 36.2; O2SAT 100; BMI 44.9
[2023-08-20 14:34] LABS: Absolute Neutrophil Count 13.1 X10^3/uL (2.0-7.7); Basophil# 0.03 X10^3/uL; Basophil% 0.2 % (0-1); Eosinophils% 1.3 % (0-5); Hematocrit 41.5 % (37-47); Hemoglobin 13.1 g/dL (12.0-15.0); Lymphocyte % 11.4 % (19-41); Mean Corp Hgb Conc 31.6 g/dL (32-36); Mean Corpuscular Hgb 27.5 pg (27.0-32.0); Mean Corpuscular Volume 87.2 fL (81-99); Monocyte# 0.62 X10^3/uL; Monocyte% 3.9 % (0-10); NRBC Flagged by Analyzer 0 % (0-5); Neutrophil # 13.05 X10^3/uL (2.7-7.7); Neutrophil % 82.8 % (47-70); Platelet Count 473 K/mm3 (150-450); RBC Distribution Width CV 14.7 % (11.6-14.6); RBC Distribution Width SD 47.5 fl (35.1-43.9); Red Blood Count 4.76 M/mm3 (4.2-5.4); White Blood Count 15.8 K/mm3 (4.4-11.0)
[2023-08-20 14:46] LABS: Internal QC Validated? YES +Cl - CLEAR BKGD; Pregnancy, Serum, hCG Quali. NEGATIVE Negative
[2023-08-20 14:50] LABS: Bacteria 0 SEEN /hpf (None Seen); Mucous, Urine 0 SEEN /hpf (<or=2+); Red Blood Cells-Urine 0 SEEN /hpf (0-5)
[2023-08-20 14:50] LABS: AST(SGOT) 12 U/L (15-37); Alanine Aminotransfer ALT/SGPT 30 U/L (13-56); Albumin, Serum 3.8 g/dL (3.2-5.0); Alkaline Phosphatase 84 U/L (45-117); Anion Gap 4 (5-15); BUN 10 mg/dL (7-18); BUN/Creat Ratio 10.4 RATIO (10-20); Calcium,Total 9.3 mg/dL (8.5-10.1); Chloride 108 mmol/L (98-107); Creatinine, Serum 0.96 mg/dL (0.55-1.02); EST Glomerular Filtration Rate 77 mL/min (>60); Est Glom Filt Rate - Afr Amer 93 mL/min (>60); Estimated Creatinine Clearance 131.84 ml/min; Globulin 3.9 g/dL (2.2-4.2); Glucose 106 mg/dL (74-106); Potassium 4.2 mmol/L (3.5-5.1); Protein, Total 7.7 g/dL (6.4-8.2); Sodium Level 137 mmol/L (136-145)
[2023-08-20 14:53] LABS: Color, Urine Yellow (Yellow); Glucose, Dipstick Normal (Normal); Ketone-Dipstick 5 mg/dl (Negative); Leukocyte Esterase-Dipstick 100 /ul (Negative); Nitrite-Dipstick Negative (Negative); Occult Blood-Urine Negative /ul (Negative); Protein-Dipstick 15 mg/dl (Negative); Urine Bilirubin Dipstick Negative (Negative); Urine Clarity Sl. Cloudy (Clear); Urine Urobilinogen Normal (Normal)
[2023-08-20 14:58] LABS: Squamous Epithelial Cells - UA 10-25 SEEN /hpf (5-10); White Blood Cells 5-10 SEEN /hpf (0-5)
[2023-08-20 15:40] VITALS: BP 126/81; PULSE 98; RESP 13; O2SAT 100
--- NOTE | 2023-08-20 16:39 | CT_ITS ---
ACR Level 3 findings have been noted. An addendum which confirms receipt of the report will follow. INDICATION: PAIN S/P EGD EXAMINATION: CT Chest Abdomen And Pelvis W/ Contrast Injection TECHNIQUE: Images were obtained of the chest, abdomen and pelvis following IV contrast. A radiation dose optimization technique was used for this scan. IV Contrast dosage and agent: IV 100mL Isovue-300 COMPARISON: 07/10/2023. FINDINGS: Lungs: Scattered subsegmental atelectasis. Mediastinum: The cardiomediastinal silhouette is not enlarged. No mediastinal, hilar or axillary adenopathy. The thoracic aorta is unremarkable. No obvious filling defect seen within the visualized pulmonary arteries. Pleura: Unremarkable Liver: Unremarkable Gallbladder: Unremarkable Spleen: Unremarkable Pancreas: The pancreas is markedly enlarged. There is a significant amount of peripancreatic fat stranding and fluid. No evidence of necrosis or focal fluid collection. Adrenal Glands: Unremarkable Kidneys: Unremarkable Vasculature: Unremarkable GI Tract: Scattered diverticula throughout the colon. There is mild short segment wall thickening of the distal transverse colon with surrounding mesenteric pattern. Lymphadenopathy: Peripancreatic lymphadenopathy. Peritoneum: No ascites. Bladder: Unremarkable Reproductive organs: Low-lying IUD. Bones/Soft tissues: No suspicious osseous or soft tissue lesions CT/CT Chest, Abd, Pel w/Contrast IMPRESSION: Severe acute interstitial edematous pancreatitis. No focal fluid collection or necrosis. Secondary diverticulitis of the transverse colon. No focal fluid collection or free air. Low-lying IUD. Electronically Signed: Ricardo Solomon MD at 19:06 EDT ,
--- NOTE | 2023-08-20 16:41 | EDS_ITS ---
HPI History of Present Illness Chief Complaint: Abd Pain Informant: patient and spouse/S.O. Narrative Narrative: 23-year-old female to the emergency room with upper abdominal pain. Patient states that yesterday she underwent an EGD with Dr. Broussard at [facility] in preparation for a upcoming bariatric surgery. She states that she woke this morning with nausea and anorexia. She notes pain in the upper abdomen and right upper quadrant that is constant. She states that they noted a small hiatal hernia otherwise a negative scope. She also normal bowel movement as well as urination today. She had 1 emesis in triage. She feels chilled but no fevers. She spoke with Dr. Broussard's office and was referred to emergency. Of note the patient started Nicolas toes a 1 month ago and increased her dosage 1 week ago. [facility] Medical History (Updated 08/20/23 @ 19:[address] Fam Salinas DO) Asthma Bipolar 2 disorder delivery delivered Depression Diabetes Generalized anxiety disorder Migraine PTSD (post-traumatic stress disorder) TBI (traumatic brain injury) Home Medications fluoxetine 20 mg capsule (Prozac) 10 mg PO DAILY 02/22/22 [History Last Taken Unknown] lamotrigine 150 mg tablet (Lamictal) 150 mg PO DAILY 30 days #30 tabs 03/14/22 [Rx Last Taken Unknown] aripiprazole 10 mg tablet (Abilify) 10 mg PO QHS 30 days #30 tabs 03/21/22 [Rx Last Taken Unknown] hydroxyzine HCl 50 mg tablet 50 mg PO TID PRN panic attack(s) 30 days #90 tabs 03/21/22 [Rx Last Taken Unknown] prednisone 20 mg tablet 60 mg (3 x 20 mg) PO DAILY #15 tabs 04/29/22 [Rx Last Taken Unknown] hydrocodone-acetaminophen 5-325mg 5mg-325mg 1 tab PO Q4H PRN PRN Pain 2 days #15 TABLETS 10/19/22 [Rx Last Taken Unknown] Allergy/AdvReac Type Severity Reaction Status Date / Time Penicillins Allergy Rash Verified 08/20/23 13:45 Surgical History H/O section History of appendectomy Social History adopted: Yes Smoking Status: Never smoker Electronic Cigarette Use: not used second hand exposure: No alcohol intake: never substance use type: does not use ROS ROS ED Constitutional Constitutional ED: Reports chills; Denies fever(s) or weight loss Eyes Eyes: Denies change in vision or diplopia ENT ENT ED: Denies ear pain, rhinorrhea or sore throat Cardiovascular Cardiovascular: Denies chest pain, orthopnea, palpitations or racing heartbeat Respiratory/Chest Respiratory/Chest: Denies cough, dyspnea or orthopnea Gastrointestinal Gastrointestinal: Reports abdominal pain, nausea and vomiting; Denies constipation or diarrhea Genitourinary Genitourinary ED: Denies dysuria, hematuria or urinary frequency Musculoskeletal Musculoskeletal: Denies arthralgias or myalgias Integumentary Denies abscess or rash Neurologic Neurologic: Denies headache(s) or weakness Psychiatric Psychiatric: Denies anxiety, depression, suicidal ideation or suicidal thoughts Endocrine Endocrinology: Denies polydipsia, polyphagia or polyuria Allergic/Immunologic Allergic/Immunologic ED: Denies mouth swelling, tongue swelling or urticaria EXAM Physical Exam Const Vital Signs: 08/20/23 13:45 08/20/23 15:40 08/20/23 17:00 Temperature 97.2 F L Temperature Source Temporal Pulse Rate 91 98 923 H Respiratory Rate 18 13 16 Blood Pressure 119/61 126/81 H 142/88 H Blood Pressure Mean 80 96 106 Pulse Ox 100 100 98 Oxygen Delivery Method Room Air Room Air Room Air Positive well nourished and well developed General Appearance ED: well developed HEENT Reports normocephalic, head/scalp atraumatic and moist mucous membranes Eyes PERRL and EOMs intact bilaterally Neck no lymphadenopathy, supple and no JVD Resp normal respiratory effort and clear to auscultation bilaterally Cardio regular rate, regular rhythm and no murmurs GI Inspection: Negative for abdominal distention Auscultation: normoactive bowel sounds Palpation: soft and tender epigastric and RUQ; Negative for guarding or rebound tenderness present Back/Spine no CVA tenderness and normal ROM Extremity normal to inspection General Extremety ED: Negative for edema General Extremity: Negative for edema Neuro oriented x3 and CN's II-XII intact bilaterally Sensorium / Orientation: alert Motor Exam: strength 5/5 throughout Psych mental status grossly normal Mood & Affect: Negative for depressed or tearful Skin no rashes or lesions noted and no wounds MDM MDM MDM Narrative Medical decision making narrative: Blood work shows a white count of 15.8. Lipase is elevated at 4542 with an amylase of 796. Liver enzymes are negative bilirubin 0.40. Creatinine 0.96. Urinalysis shows contamination but no overt infection and she is not . CT of the abdomen pelvis was obtained. This shows significant peripancreatic fat stranding and fluid. There is no focal collection. I do not see any extravasation of the oral contrast. There is a segmental wall thickening of the distal transverse colon. I did do not feel strongly that she has an acute colitis with the acute pancreatitis. I spoke with Dr. Broussard from [facility]. We reviewed the case. I spoke with the patient and updated them. I will have the hospitalist admit here for symptom control and treatment of the pancreatitis. Lab Data Attestation: I reviewed the patient's lab results. Labs: Laboratory Results - last 24 hr 08/20/23 08/20/23 14:25 14:40 WBC 15.8 H RBC 4.76 Hgb 13.1 Hct 41.5 MCV 87.2 MCH 27.5 MCHC 31.6 L RDW Std Deviation 47.5 H RDW Coeff of Raj 14.7 H Plt Count 473 H MPV 9.0 Immature Gran % (Auto) 0.400 Neut % (Auto) 82.8 H Lymph % (Auto) 11.4 L Thomas % (Auto) 3.9 Eos % (Auto) 1.3 Baso % (Auto) 0.2 Absolute Neuts (auto) 13.1 H Absolute Lymphs (auto) 1.80 Nucleated RBC % 0 Sodium 137 Potassium 4.2 Chloride 108 H Carbon Dioxide 25.0 Anion Gap 4 L BUN 10 Creatinine 0.96 Estim Creat Clear Calc 131.84 Est GFR (MDRD) Af Amer 93 Est GFR (MDRD) Non-Af 77 BUN/Creatinine Ratio 10.4 Glucose 106 Calcium 9.3 Total Bilirubin 0.40 AST 12 L ALT 30 Alkaline Phosphatase 84 Total Protein 7.7 Albumin 3.8 Globulin 3.9 Albumin/Globulin Ratio 1.0 Amylase 796 H Lipase 4542 H Serum , Qual NEGATIVE Urine Color Yellow Urine Clarity Sl. Cloudy Urine pH 7.0 Ur Specific [place] 1.010 Urine Protein 15 H Urine Glucose (UA) Normal Urine Ketones 5 H Urine Occult Blood Negative Urine Nitrite Negative Urine Bilirubin Negative Urine Urobilinogen Normal Ur Leukocyte Esterase 100 H Urine RBC 0 SEEN Urine WBC 5-10 SEEN Ur Squamous Epith Cells 10-25 SEEN Urine Bacteria 0 SEEN Urine Mucus 0 SEEN Radiography Diagnostic Testing: Clinical Impression(s) from Imaging Studies Chest/Abdomen/Pelvis CT 08/20/23 16:39 IMPRESSION: Severe acute interstitial edematous pancreatitis. No focal fluid collection or necrosis. Secondary diverticulitis of the transverse colon. No focal fluid collection or free air. Low-lying IUD. Electronically Signed: Ricardo Solomon MD at 19:06 EDT , ADDENDUM: 08/20/231920 IMPRESSION: Severe acute interstitial edematous pancreatitis. No focal fluid collection or necrosis. Secondary diverticulitis of the transverse colon. No focal fluid collection or free air. Low-lying IUD. N.B. : Tiny Garcia OT, confirmed on 08/20/2023 19:14:14 (ET) that the healthcare facility has received the radiology report. Electronically Signed: Ricardo Solomon MD at 19:06 EDT , Discharge Plan Dx/Rx/DC Orders Clinical Impression: Abdominal pain, Vomiting, Acute pancreatitis Disposition Disposition: Acute Care [facility]
[2023-08-20] MEDS: Morphine 4 MG/ML Syringe IV (16:59)
[2023-08-20] MEDS: Ondansetron 4 MG/2 ML Vial IV ×4 (16:59→23:33)
[2023-08-20] MEDS: 0.9% Normal Saline (500mL Bag) 500 ML 999 ML IV (16:59)
[2023-08-20 17:00] VITALS: BP 142/88; PULSE 923; RESP 16; O2SAT 98
[2023-08-20] MEDS: HYDROmorphone 1 MG/ML Syringe IV (18:42)
[2023-08-20] MEDS: 0.9% Normal Saline (1000mL) 1,000 ML 999 ML IV ×2 (18:45→20:05)
[2023-08-20 19:14] LABS: Amylase 796 U/L (25-115); Lipase 4542 U/L (13-75)
--- NOTE | 2023-08-20 19:43 | PCM.HP.STD ---
HPI - General General Date of Admission: 08/20/23 Date of Service: 08/20/23 Chief Complaint: Pancreatitis HPI Narrative MARTITA HERNANDEZ, is a 23 F with history of morbid obesity, bipolar disorder, anxiety, history of and history of appendectomy who presented to [facility] ED on 08/20/2023 with worsening abdominal pain. Patient seen at bedside in the ED, significant other present. Patient sitting up in bed, alert and oriented, conversing normally. She did appear mildly distressed due to nausea and abdominal discomfort. She did have some dry heaving into a vomit bag during my interview. Patient states that her pain started this morning and became much worse throughout the day today. She has never had pain like this before. She has no previous episodes of pancreatitis before. Patient notably follows with [facility] bariatric surgery and is currently completing the necessary pre-testing for this. She had an EGD done yesterday at [facility]. She and significant other note that she has had issues with significant nausea after anesthesia in the past, but noted that this abdominal pain and discomfort was different than normal. She did take her morning medications but has not been able to keep any food down today. She denies any fevers or chills currently. She denies any lightheadedness or dizziness. States her abdominal pain is improved after administration of IV Dilaudid in the ED. She has had some improvement in her nausea since being given a dose of IV Zofran. No other acute concerns currently. Vitals in the ED notable for heart rate in the 90s, otherwise normal. Labs notable for WBC count 15.8, normal BMP, normal LFTs, lipase 4542, amylase 796. UA was fairly benign. CT chest abdomen pelvis on admit showed severe acute interstitial edematous pancreatitis, no focal fluid collection or necrosis; also showed secondary diverticulitis of the transverse colon, no focal fluid collection or free air. [facility] Medical History (Updated 08/20/23 @ 19:[address] Fam Salinas DO) Asthma Bipolar 2 disorder delivery delivered Depression Diabetes Generalized anxiety disorder Migraine PTSD (post-traumatic stress disorder) TBI (traumatic brain injury) Home Medications fluoxetine 20 mg capsule (Prozac) 10 mg PO DAILY 02/22/22 [History Last Taken Unknown] liraglutide 0.6 mg/0.1 mL (18 mg/3 mL) subcutaneous pen injector 0.6 mg subcut DAILY 08/20/23 [History Last Taken Unknown] lithium carbonate 600 mg capsule 600 mg PO BID 08/20/23 [History Last Taken Unknown] lorazepam 1 mg tablet 1 mg PO Q12H PRN anxiety 08/20/23 [History Last Taken Unknown] propranolol 20 mg tablet 20 mg PO BID 08/20/23 [History Last Taken Unknown] risperidone 1 mg tablet 2 mg PO BID 08/20/23 [History Last Taken Unknown] topiramate 50 mg tablet 50 mg PO QHS 08/20/23 [History Last Taken Unknown] Allergy/AdvReac Type Severity Reaction Status Date / Time Penicillins Allergy Rash Verified 08/20/23 13:45 Surgical History H/O section History of appendectomy Social History adopted: Yes Smoking Status: Never smoker Electronic Cigarette Use: not used second hand exposure: No alcohol intake: never substance use type: does not use ROS Constitutional Constitutional: Denies chills, fatigue or fever(s) Eyes Eyes: Denies change in vision Cardiovascular Cardiovascular: Denies chest pain, edema or lightheadedness Respiratory/Chest Respiratory/Chest: Denies cough Gastrointestinal Gastrointestinal: Reports abdominal pain, nausea and vomiting; Denies coffee ground emesis, constipation, diarrhea or melena Genitourinary Genitourinary: Denies dysuria Vital Signs Vital Signs Vital Signs: 08/20/23 13:45 08/20/23 15:40 08/20/23 17:00 Temperature 97.2 F L Temperature Source Temporal Pulse Rate 91 98 923 H Respiratory Rate 18 13 16 Blood Pressure 119/61 126/81 H 142/88 H Blood Pressure Mean 80 96 106 Pulse Ox 100 100 98 Oxygen Delivery Method Room Air Room Air Room Air Weight Weight: 90.855 kg Body Mass Index (BMI) 44.9 Physical Exam Const alert, oriented x3, healthy appearing and well nourished Constitutional Narrative: Pleasant female, morbidly obese, conversing normally, sitting up in bed, mild distress due to abdominal discomfort and nausea. General Appearance: cooperative, well kempt and well developed HEENT normocephalic, head/scalp atraumatic, hearing grossly normal bilaterally, nasal mucous membranes and turbinates normal and moist oral mucous membranes Eyes PERRL, EOMs intact bilaterally and conjunctivae normal Neck full ROM, no lymphadenopathy and supple Lymph Lymphatic: no lymphadenopathy noted Chest inspection of chest normal Resp normal respiratory effort, normal air movement, no use of accessory muscles and clear to auscultation bilaterally Cardio regular rate, regular rhythm, no murmurs and peripheral pulses 2+ throughout GI GI Narrative: Soft and nondistended. Moderately tender to palpation diffusely. Hypoactive bowel sounds. Back/Spine normal ROM Extremity normal to inspection, full ROM and no pedal edema Skin no rashes or lesions noted Psych mental status grossly normal Results Lab / Micro Data 08/20/23 14:25 08/20/23 14:25 Labs: Laboratory Results - last 24 hr 08/20/23 14:25: WBC 15.8 H, RBC 4.76, Hgb 13.1, Hct 41.5, MCV 87.2, MCH 27.5, MCHC 31.6 L, RDW Std Deviation 47.5 H, RDW Coeff of Raj 14.7 H, Plt Count 473 H, MPV 9.0, Immature Gran % (Auto) 0.400, Neut % (Auto) 82.8 H, Lymph % (Auto) 11.4 L, Mora % (Auto) 3.9, Eos % (Auto) 1.3, Baso % (Auto) 0.2, Absolute Neuts (auto) 13.1 H, Absolute Lymphs (auto) 1.80, Nucleated RBC % 0, Sodium 137, Potassium 4.2, Chloride 108 H, Carbon Dioxide 25.0, Anion Gap 4 L, BUN 10, Creatinine 0.96, Estim Creat Clear Calc 131.84, Est GFR (MDRD) Af Amer 93, Est GFR (MDRD) Non-Af 77, BUN/Creatinine Ratio 10.4, Glucose 106, Calcium 9.3, Total Bilirubin 0.40, AST 12 L, ALT 30, Alkaline Phosphatase 84, Total Protein 7.7, Albumin 3.8, Globulin 3.9, Albumin/Globulin Ratio 1.0, Amylase 796 H, Lipase 4542 H, Serum , Qual NEGATIVE 08/20/23 14:40: Urine Color Yellow, Urine Clarity Sl. Cloudy, Urine pH 7.0, Ur Specific [place] 1.010, Urine Protein 15 H, Urine Glucose (UA) Normal, Urine Ketones 5 H, Urine Occult Blood Negative, Urine Nitrite Negative, Urine Bilirubin Negative, Urine Urobilinogen Normal, Ur Leukocyte Esterase 100 H, Urine RBC 0 SEEN, Urine WBC 5-10 SEEN, Ur Squamous Epith Cells 10-25 SEEN, Urine Bacteria 0 SEEN, Urine Mucus 0 SEEN Radiology Impression Chest/Abdomen/Pelvis CT 08/20/23 16:39 IMPRESSION: Severe acute interstitial edematous pancreatitis. No focal fluid collection or necrosis. Secondary diverticulitis of the transverse colon. No focal fluid collection or free air. Low-lying IUD. Electronically Signed: Ricardo Solomon MD at 19:06 EDT , ADDENDUM: 08/20/23 192 IMPRESSION: Severe acute interstitial edematous pancreatitis. No focal fluid collection or necrosis. Secondary diverticulitis of the transverse colon. No focal fluid collection or free air. Low-lying IUD. N.B. : Tiny Garcia OT, confirmed on 08/20/2023 19:14:14 (ET) that the healthcare facility has received the radiology report. Electronically Signed: Ricardo Solomon MD at 19:06 EDT , Assessment & Plan Assessment/Plan (1) Acute pancreatitis: PLAN: Plan Patient is a 23-year-old female with history of morbid obesity, bipolar disorder, anxiety, history of and history of appendectomy who presented to [facility] ED on 08/20/2023 with worsening abdominal pain. 1. Acute pancreatitis, first episode Most likely secondary to Victoza (started about 1 month ago, dose increased 1 week ago), with recent EGD with anesthesia as possible contributor. Notably had no evidence of gallstones on imaging. Triglyceride level pending. Lipase [address] chest abdomen pelvis on admit showed severe acute interstitial edematous pancreatitis, no focal fluid collection or necrosis. Given 2 L normal saline in the ED, as well as IV Zofran and Dilaudid with some improvement in symptoms. ? Admit as inpatient to PCU. Start LR 200 cc/hr tonight, followed by LR 125 cc/hr starting tomorrow morning. NPO. IV Zofran with IV Compazine for breakthrough nausea. IV Dilaudid 0.5 to 1 mg every 2 hours as needed for pain control. Also ordered p.o. Tylenol and p.o. oxycodone for pain control, for when patient is able to take p.o. medications. Can consider GI or general surgery consultation as needed. 2. Bipolar disorder, anxiety Home medications? fluoxetine 10 mg daily, lithium 600 mg twice daily, lorazepam 1 mg every 12 hours as needed, risperidone 2 mg p.o. twice daily, topiramate 50 mg nightly. Symptoms stable. Last took home medications on morning of admission. ? All home medications ordered as above, with plan to start tomorrow morning. However, if patient is unable to take p.o. medications, will need to consider alternative IV medications short-term for her. Chronic medical conditions: ? Morbid obesity: Follows with [facility] bariatric surgery department, currently undergoing necessary pre-testing for this. Had EGD done on 08/19 with [facility] GI - ED physician spoke with GI physician who performed the EGD, who noted that the procedure was quite quick with minimal intervention. Notably was happy to accept the patient for transfer to [facility] if surgical needs arise. Will need to follow-up outpatient; will likely need to discontinue Victoza going forward. DVT prophylaxis: Lovenox CODE STATUS: Full code, verified Expected disposition: Home, TBD Total clinical time spent by myself addressing the patient's medical issues, reviewing all the data, and collaborating with patient's care team: 55 minutes. Charges/Coding Visit Charges Inpatient E&M: 36373 Init Hosp L2
[2023-08-20 19:53] VITALS: BP 131/83; PULSE 99; RESP 89; TEMP 36.8; O2SAT 99
--- NOTE | 2023-08-20 20:15 | CM.ED ---
Social Work SW Face to Face with patient for initial transition planning/care coordination assessment. SW introduced self and role at [facility]. Patient lying in bed, alert and oriented. Patient willing to participate in assessment and is able to answer all questions appropriately.? Care providers, pharmacy, and demographics verified. Patient wishes to discharge home, denies needs at this time. CM/SW to follow for discharge planning needs that may arise. PCP: Faith Barrett Specialists: [facility] Preferred Pharmacy: [facility] Insurance: [facility] Community Plan Prescription Benefit:?yes Living Will/HPOA: no, not interested in information at this time LNOK: patient's , Dex and mother Chanel Living Arrangements: Patient lives in duplex with and reports no issues with navigating stairs in and outside of the home Transportation: Patient has personal transportation and assists with transportation as needed DME/HHC: none Disposition Plan: home no needs, to assist as needed Delisa BROOKS, LAMBERT
--- NOTE | 2023-08-20 20:20 | CM.ED ---
Social Work SW met with patient and inquired about AD. Patient reports she does not have a living will or HCPOA. Patient declines information at this time. Delisa BROOKS, LAMBERT
[2023-08-20 22:00] VITALS: BP 116/71; PULSE 86; RESP 16; TEMP 36.6; O2SAT 100
[2023-08-20 22:01] VITALS: BMI 46.7
[2023-08-20] MEDS: Lactated Ringers 1,000 ML 200 ML IV (22:13)
[2023-08-20] MEDS: proCHLORPERazine 10 MG/2 ML Vial 5 MG IV (22:15)
[2023-08-20] MEDS: HYDROmorphone 0.5 MG/0.5 ML SYRINGE IV (22:16)
[2023-08-21] MEDS: Lactated Ringers 1,000 ML 200 ML IV ×2 (02:59→08:05)
[2023-08-21] MEDS: HYDROmorphone 0.5 MG/0.5 ML SYRINGE IV ×6 (03:00→23:36)
[2023-08-21] MEDS: proCHLORPERazine 10 MG/2 ML Vial 5 MG IV (03:00)
[2023-08-21 04:00] VITALS: BP 113/84; PULSE 85; RESP 19; TEMP 36.4; O2SAT 100
[2023-08-21 04:55] LABS: Hematocrit 32.7 % (37-47); Hemoglobin 10.4 g/dL (12.0-15.0); Mean Corp Hgb Conc 31.8 g/dL (32-36); Mean Corpuscular Volume 87.9 fL (81-99); Mean Platelet Vol. 9.2 fl (6.2-12.0); Platelet Count 372 K/mm3 (150-450); RBC Distribution Width CV 14.7 % (11.6-14.6); RBC Distribution Width SD 47.3 fl (35.1-43.9); Red Blood Count 3.72 M/mm3 (4.2-5.4); White Blood Count 11.4 K/mm3 (4.4-11.0)
[2023-08-21 05:21] LABS: Anion Gap 2 (5-15); BUN 8 mg/dL (7-18); BUN/Creat Ratio 11.3 RATIO (10-20); Calcium,Total 8.1 mg/dL (8.5-10.1); Chloride 114 mmol/L (98-107); Creatinine, Serum 0.71 mg/dL (0.55-1.02); EST Glomerular Filtration Rate 109 mL/min (>60); Est Glom Filt Rate - Afr Amer 132 mL/min (>60); Estimated Creatinine Clearance 185.41 ml/min; Glucose 94 mg/dL (74-106); Sodium Level 140 mmol/L (136-145)
[2023-08-21] MEDS: Ondansetron 4 MG/2 ML Vial IV ×2 (08:11→15:51)
[2023-08-21] MEDS: Lactated Ringers 1,000 ML 125 ML IV (08:14)
[2023-08-21] MEDS: 0.9% Saline Lock 10 ML Syringe IV ×5 (08:26→20:24)
[2023-08-21 10:00] VITALS: BP 127/82; PULSE 100; RESP 18; TEMP 36.6; O2SAT 99
[2023-08-21] MEDS: Enoxaparin 40 MG/0.4 ML Syringe SC ×2 (10:10→21:13)
[2023-08-21] MEDS: Lithium Carbonate 300mg Capsule 600 MG PO ×2 (10:10→21:13)
[2023-08-21] MEDS: RisperiDONE 2 MG Tablet PO ×2 (10:10→21:13)
[2023-08-21] MEDS: FLUoxetine 10 MG Capsule PO (10:10)
[2023-08-21] MEDS: Propranolol 10 MG Tablet 20 MG PO ×2 (10:11→21:13)
[2023-08-21 14:51] VITALS: BP 135/87; PULSE 99; RESP 18; TEMP 36.4; O2SAT 100
[2023-08-21] MEDS: Lactated Ringers 1,000 ML 175 ML IV ×2 (15:30→21:13)
[2023-08-21] MEDS: oxyCODONE 5 MG Tablet PO (15:50)
--- NOTE | 2023-08-21 16:03 | NURSING ---
Pt advanced to clear liquids today. She had 2 emesis after her clear liquid meals but has been able to hold down gingerale, ice and small sips throughout the day. Encouraged to continue small sips. Pt tends to drink full glasses and then is becoming nauseated.
--- NOTE | 2023-08-21 17:13 | PCM.PN.HOSP ---
Reason for Visit Reason for Visit: Diagnoses Acute pancreatitis without necrosis or infection, unspecified (08/20/23) Subjective Subjective Patient was seen and examined this morning, she has not had any vomiting this morning, she states she is hungry and so I have elected to place her on a full liquid diet. Patient was admitted last night for pancreatitis, this is believed to be associated with her use of Victoza. Objective Data Objective Data Vital Signs: Vital Signs Temp Pulse Resp BP Pulse Ox O2 Del Method 97.5 F L 99 18 135/87 H 100 Room Air 08/21/23 14:51 08/21/23 14:51 08/21/23 14:51 08/21/23 14:51 08/21/23 14:51 08/21/23 14:51 Oxygen Delivery Method Room Air Weight: 94.5 kg Body Mass Index (BMI) 46.7 Intake & Output: Intake and Output for Last 24 Hours 08/19/23 08/20/23 08/21/23 23:59 23:59 23:59 Intake Total 2500 / 2500 4639.16 / 4639.16 Output Total 500 / 500 Balance 2500 / 2500 4139.16 / 4139.16 Lab / Micro Data 08/21/23 04:40 08/21/23 04:40 Labs: Laboratory Results - last 24 hr 08/20/23 14:25: Amylase 796 H, Lipase 4542 H 08/21/23 04:40: WBC 11.4 H, RBC 3.72 L, Hgb 10.4 L, Hct 32.7 L, MCV 87.9, MCH 28.0, MCHC 31.8 L, RDW Std Deviation 47.3 H, RDW Coeff of Raj 14.7 H, Plt Count 372, MPV 9.2, Sodium 140, Potassium 4.0, Chloride 114 H, Carbon Dioxide 24.0, Anion Gap 2 L, BUN 8, Creatinine 0.71, Estim Creat Clear Calc 185.41, Est GFR (MDRD) Af Amer 132, Est GFR (MDRD) Non-Af 109, BUN/Creatinine Ratio 11.3, Glucose 94, Calcium 8.1 L Radiography Diagnostic Testing: Radiology Impression Chest/Abdomen/Pelvis CT 08/20/23 16:39 IMPRESSION: Severe acute interstitial edematous pancreatitis. No focal fluid collection or necrosis. Secondary diverticulitis of the transverse colon. No focal fluid collection or free air. Low-lying IUD. Electronically Signed: Ricardo Solomon MD at 19:06 EDT , ADDENDUM: 08/20/231920 IMPRESSION: Severe acute interstitial edematous pancreatitis. No focal fluid collection or necrosis. Secondary diverticulitis of the transverse colon. No focal fluid collection or free air. Low-lying IUD. N.B. : Tiny Garcia , OT, confirmed on 08/20/2023 19:14:14 (ET) that the healthcare facility has received the radiology report. Electronically Signed: Ricardo Solomon MD at 19:06 EDT , Physical Exam Const alert, oriented x3, no apparent distress and healthy appearing Constitutional Narrative: Patient is morbidly obese General Appearance: cooperative, well kempt and well developed Orientation / Consciousness: awake, oriented to person, oriented to place and oriented to time HEENT normocephalic, head/scalp atraumatic and moist oral mucous membranes Eyes PERRL, EOMs intact bilaterally and conjunctivae normal Neck supple, no JVD, thyroid normal and no carotid bruits General: trachea midline Resp normal respiratory effort, no retractions, no use of accessory muscles and clear to auscultation bilaterally Auscultation: Negative for rales, rhonchi or wheezes Cardio regular rate, regular rhythm, S1 normal heart sound, S2 normal heart sound, no murmurs, no rub and no gallops GI soft to palpation and non-distended GI Narrative: Patient has diffuse mild abdominal tenderness to palpation Auscultation: hypoactive bowel sounds Extremity no clubbing, cyanosis or edema Skin no rashes or lesions noted General Skin Exam: no breakdown Neuro oriented x3, CN's II-XII intact bilaterally, moves all extremities, no focal motor deficits and no sensory deficits noted Sensorium / Orientation: awake, alert, oriented to person, oriented to place and oriented to time Speech: speech normal Psych affect normal Assessment & Plan Assessment/Plan (1) Acute pancreatitis: PLAN: Plan 1. Acute pancreatitis-suspected to be secondary to use of Victoza, patient will continue on IV fluids, she will receive IV pain medications as needed, I have increased her diet to a full liquid diet today #2 bipolar disorder-patient is to remain on her present medications #3 morbid obesity-complicates care, medical course, recovery, and prognosis Total clinical time spent by myself addressing the patient's medical issues, reviewing her data, and collaborating with patient's care team: 35 minutes Charges/Coding Visit Charges Inpatient E&M: 99014 Subs Hosp L2
[2023-08-21 21:00] VITALS: BP 126/93; PULSE 82; RESP 16; TEMP 36.2; O2SAT 99
[2023-08-21] MEDS: Topiramate 50 MG Tablet PO (21:13)
[2023-08-22] MEDS: oxyCODONE 5 MG Tablet PO ×3 (01:55→18:27)
[2023-08-22] MEDS: Lactated Ringers 1,000 ML 175 ML IV ×3 (02:46→14:20)
[2023-08-22 03:00] VITALS: BP 118/79; PULSE 93; RESP 16; TEMP 36.3; O2SAT 99
[2023-08-22] MEDS: HYDROmorphone 0.5 MG/0.5 ML SYRINGE IV ×5 (06:48→21:49)
--- NOTE | 2023-08-22 07:48 | PCM.PN.HOSP ---
Reason for Visit Reason for Visit: Diagnoses Acute pancreatitis without necrosis or infection, unspecified (08/20/23) Objective Data Objective Data Vital Signs: Vital Signs Temp Pulse Resp BP Pulse Ox O2 Del Method 97.3 F L 93 16 118/79 99 Room Air 08/22/23 03:00 08/22/23 03:00 08/22/23 03:00 08/22/23 03:00 08/22/23 03:00 08/22/23 04:00 Oxygen Delivery Method Room Air Weight: 208 lb 5.389 oz Body Mass Index (BMI) 46.7 Intake & Output: Intake and Output for Last 24 Hours 08/20/23 08/21/23 08/22/23 23:59 23:59 23:59 Intake Total 2500 / 2500 6199.16 / 6439.16 1331.25 / 1331.25 Output Total 500 / 500 Balance 2500 / 2500 5699.16 / 5939.16 1331.25 / 1331.25 Lab / Micro Data 08/21/23 04:40 08/21/23 04:40 Assessment & Plan Assessment/Plan (1) Acute pancreatitis: QUALIFIERS: Pancreatitis type: drug induced PLAN: Plan 1. Acute pancreatitis-suspected to be secondary to use of Victoza, patient is having mild wheezing therefore discontinue IV fluid. Patient abdominal pain is better and tolerated the breakfast therefore diet advanced to soft diet. Patient further said as an outpatient she had EGD and she got the message that she has H. pylori gastritis. She showed me the report on her phone. Her GI doctor sent the prescription of metronidazole, clarithromycin and PPI to her preferred pharmacy but I continued her medication today. Continue IV Flagyl as patient still has nausea. Patient is transferred to regular floor. #2 bipolar disorder-patient is to remain on her present medications patient on multiple medications including lithium, risperidone, Topamax and fluoxetine. #3 morbid obesity-complicates care, medical course, recovery, and prognosis 4. Chronic stable asthma. Pulmicort ordered. Total clinical time spent by myself addressing the patient's medical issues, reviewing her data, and collaborating with patient's care team: 35 minutes
[2023-08-22] MEDS: Ondansetron 4 MG/2 ML Vial IV ×2 (08:23→14:15)
[2023-08-22 10:13] VITALS: BP 130/94; PULSE 88; RESP 16; TEMP 36; O2SAT 100
[2023-08-22] MEDS: FLUoxetine 10 MG Capsule PO (10:14)
[2023-08-22] MEDS: RisperiDONE 2 MG Tablet PO ×2 (10:15→22:43)
[2023-08-22] MEDS: Lithium Carbonate 300mg Capsule 600 MG PO ×2 (10:15→22:44)
[2023-08-22] MEDS: Enoxaparin 40 MG/0.4 ML Syringe SC ×2 (10:15→21:34)
[2023-08-22] MEDS: Propranolol 10 MG Tablet 20 MG PO ×2 (10:15→22:44)
[2023-08-22] MEDS: Pantoprazole Sodium 40 MG Tablet PO ×2 (14:15→21:43)
[2023-08-22] MEDS: metroNIDAZOLE 500 MG/100 ML BAG 100 MG IV ×2 (14:20→21:32)
[2023-08-22 14:23] VITALS: BP 141/102; PULSE 74; RESP 16; TEMP 36; O2SAT 100
[2023-08-22 19:50] VITALS: PULSE 84; RESP 16
[2023-08-22] MEDS: Budesonide Respules 0.5 MG/2 ML AMPUL.NEB. INHALATION (19:50)
[2023-08-22 21:52] VITALS: BP 134/93; PULSE 73; RESP 16; TEMP 37.1; O2SAT 100
[2023-08-22] MEDS: Topiramate 50 MG Tablet PO (22:44)
[2023-08-23] MEDS: HYDROmorphone 0.5 MG/0.5 ML SYRINGE IV (00:10)
[2023-08-23] MEDS: Ondansetron 4 MG/2 ML Vial IV ×2 (00:10→08:08)
[2023-08-23 04:49] VITALS: BP 146/91; PULSE 93; RESP 16; TEMP 36.6; O2SAT 96
[2023-08-23] MEDS: metroNIDAZOLE 500 MG/100 ML BAG 100 MG IV (04:51)
[2023-08-23] MEDS: oxyCODONE 5 MG Tablet PO ×2 (04:53→10:10)
[2023-08-23 07:08] LABS: Absolute Lymphocyte Count 1.67 X10^3/uL (0.83-4.51); Absolute Neutrophil Count 6.9 X10^3/uL (2.0-7.7); Basophil# 0.02 X10^3/uL; Basophil% 0.2 % (0-1); Eosinophil# 0.39 X10^3/uL; Eosinophils% 4.1 % (0-5); Hematocrit 32.5 % (37-47); Hemoglobin 10.2 g/dL (12.0-15.0); Lymphocyte # 1.67 X10^3/ul (0.83-4.51); Lymphocyte % 17.7 % (19-41); Mean Corp Hgb Conc 31.4 g/dL (32-36); Mean Corpuscular Hgb 28.1 pg (27.0-32.0); Mean Corpuscular Volume 89.5 fL (81-99); Mean Platelet Vol. 9.6 fl (6.2-12.0); Monocyte# 0.43 X10^3/uL; Monocyte% 4.6 % (0-10); NRBC Flagged by Analyzer 0 % (0-5); Neutrophil # 6.89 X10^3/uL (2.7-7.7); Neutrophil % 73.1 % (47-70); Platelet Count 351 K/mm3 (150-450); RBC Distribution Width CV 14.6 % (11.6-14.6); Red Blood Count 3.63 M/mm3 (4.2-5.4); White Blood Count 9.4 K/mm3 (4.4-11.0)
[2023-08-23] MEDS: Budesonide Respules 0.5 MG/2 ML AMPUL.NEB. INHALATION (07:15)
[2023-08-23 07:16] VITALS: PULSE 81; RESP 18
[2023-08-23 07:44] LABS: AST(SGOT) 11 U/L (15-37); Alanine Aminotransfer ALT/SGPT 23 U/L (13-56); Albumin, Serum 3.2 g/dL (3.2-5.0); Alkaline Phosphatase 62 U/L (45-117); Anion Gap 5 (5-15); BUN 4 mg/dL (7-18); BUN/Creat Ratio 4.2 RATIO (10-20); Bilirubin, Direct 0.06 mg/dL (0.00-0.30); Calcium,Total 8.9 mg/dL (8.5-10.1); Chloride 113 mmol/L (98-107); Creatinine, Serum 0.94 mg/dL (0.55-1.02); EST Glomerular Filtration Rate 78 mL/min (>60); Est Glom Filt Rate - Afr Amer 95 mL/min (>60); Estimated Creatinine Clearance 140.05 ml/min; Globulin 3.7 g/dL (2.2-4.2); Glucose 112 mg/dL (74-106); Potassium 3.5 mmol/L (3.5-5.1); Protein, Total 6.9 g/dL (6.4-8.2); Sodium Level 142 mmol/L (136-145)
[2023-08-23 08:02] VITALS: BP 119/80; PULSE 76; RESP 18; TEMP 37; O2SAT 98
[2023-08-23] MEDS: 0.9% Saline Lock 10 ML Syringe IV (08:08)
--- NOTE | 2023-08-23 09:59 | PCM.DC ---
Discharge Instructions Diet Discharge Diet: Soft diet (Soft/transitional diet for 5 days then regular food) Activity Discharge Activity: Return to Normal Activity Weight Bearing Status: Weight bearing as tolerated Dressing / Incision Call your doctor if you observe: Fever of 101 or Higher, Coldness, Increased Pain, Numbness or Tingling, Change in Color, Inability to urinate, Inability to have a bowel movement, Shortness of breath, Dizziness, Fainting spells, Swelling in the ankles, Chest pain, Prolonged hiccupping, Increased palpitations (irregular heartbeat) and Calf discomfort Follow Up Care When: IN 2 WEEKS Test Results: Test results from this visit will be discussed in further detail at your follow-up appointment, if applicable. Discharge Plan Admission Admit Date/Time: 08/20/23 19:58 Primary Reason for Your Visit: Acute pancreatitis most likely due to Victoza. Attending Provider: Jose Falcon [facility] Providers: Adrián Nicole; Harris Whitaker Instructions Additional Instructions / Restrictions: Follow-up with a cloth folder machine in [place] who did EGD after 2 weeks for H. pylori gastritis Discharge Orders/Prescriptions Prescriptions: New clarithromycin 250 mg Tablet 500 mg PO BID Qty: 0 0RF Rx Instructions: for 2 weeks pantoprazole 40 mg Tablet,Delayed Release (Dr/Ec) 40 mg PO BID 30 Days Qty: 60 2RF Rx Instructions: 40 mg twice daily for 2 months and then once daily metronidazole 500 mg tablet 500 mg PO TID 14 Days Qty: 42 0RF Rx Instructions: pt has prescription ondansetron HCl 4 mg tablet 4 mg PO Q8H PRN (Reason: nausea and vomiting) Qty: 30 0RF oxycodone 5 mg tablet 2.5 mg PO Q6H PRN (Reason: pain) 3 Days Qty: 10 0RF Rx Instructions: Oxycodone 2.5 mg for 4-6/10 5 mg for 7?10/10 pain intensity Continued fluoxetine [Prozac] 20 mg Capsule 10 mg PO DAILY topiramate 50 mg tablet 50 mg PO QHS lithium carbonate 600 mg capsule 600 mg PO BID propranolol 20 mg tablet 20 mg PO BID risperidone 1 mg tablet 2 mg PO BID lorazepam 1 mg tablet 1 mg PO Q12H PRN (Reason: anxiety) Discontinued liraglutide 0.6 mg/0.1 mL (18 mg/3 mL) pen injector 0.6 mg subcut DAILY [facility] [Primary Care Provider] - Disposition Disposition (needs filled in before D/C Order can be placed): Home, Self Care
[2023-08-23] MEDS: Propranolol 10 MG Tablet 20 MG PO (10:07)
[2023-08-23] MEDS: Pantoprazole Sodium 40 MG Tablet PO (10:07)
[2023-08-23] MEDS: Lithium Carbonate 300mg Capsule 600 MG PO (10:08)
[2023-08-23] MEDS: FLUoxetine 10 MG Capsule PO (10:08)
[2023-08-23] MEDS: RisperiDONE 2 MG Tablet PO (10:08)
[2023-08-23] MEDS: Acetaminophen 325 MG Tablet 650 MG PO (10:10)
--- NOTE | 2023-08-23 10:26 | DS.PCM_ITS ---
Providers Date of Admission: 08/20/23 Date of Discharge: 08/23/23 Primary Care Physician: [facility] Reason For Visit: PANCREATITIS Diagnosis Discharge Diagnosis (1) Acute pancreatitis: Status: Acute Code(s): K85.90 - Acute pancreatitis without necrosis or infection, unspecified Qualifiers: Pancreatitis type: drug induced Plan 1. Acute pancreatitis-suspected to be secondary to use of Victoza, patient is having mild wheezing therefore discontinue IV fluid. Patient abdominal pain is better and tolerated the breakfast therefore diet advanced to soft diet. Patient further said as an outpatient she had EGD and she got the message that she has H. pylori gastritis. She showed me the report on her phone. Her GI doctor sent the prescription of metronidazole, clarithromycin and PPI to her pr eferred pharmacy but I continued her medication today. Continue IV Flagyl as patient still has nausea. Patient is transferred to regular floor. 08/23: Patient still has mild pain but can tolerate soft diet. Patient has prescription of metronidazole clarithromycin. Prescription given for pantopraz ole 40 mg p.o. twice daily for 2 months and then once daily. Follow-up with GI after 2 weeks of completion of course of H. pylori regimen. Discontinue Victoza. Prescription for oxycodone 2.5 mg every 6 hourly as needed for moderate to severe pain, total 10 tablets given. OARRS reviewed. [place] score 240, overdose risk score 320. #2 bipolar disorder-patient is to remain on her present medications patient on multiple medications including lithium, risperidone, Topamax and fluoxetine. #3 morbid obesity-complicates care, medical course, recovery, and prognosis 4. Chronic stable asthma. Follow-up in pulmonary clinic Discharge medication reconciliation done. Discharge follow-up instructions completed. Discharge process discussed with the patient and all questions were answered to patient's satisfaction. Total time spent, exact 35 minutes on discharge meds reconciliation, examin ation, coordination of care with nurses and ancillary staff, review of imaging and blood test and discussion with the patient on follow-up instructions. Medications at Discharge Home Medications fluoxetine 20 mg capsule (Prozac) 10 mg PO DAILY 02/22/22 lithium carbonate 600 mg capsule 600 mg PO BID 08/20/23 lorazepam 1 mg tablet 1 mg PO Q12H PRN anxiety 08/20/23 propranolol 20 mg tablet 20 mg PO BID 08/20/23 risperidone 1 mg tablet 2 mg PO BID 08/20/23 topiramate 50 mg tablet 50 mg PO QHS 08/20/23 clarithromycin 250 mg tablet 500 mg (2 x 250 mg) PO BID #0 tabs 08/23/23 metronidazole 500 mg tablet 500 mg PO TID 14 days #42 tabs 08/23/23 ondansetron HCl 4 mg tablet 4 mg PO Q8H PRN nausea and vomiting #30 tabs 08/23/23 oxycodone 5 mg tablet 2.5 mg (1/2 x 5 mg) PO Q6H PRN pain 3 days #10 tabs 08/23/23 pantoprazole 40 mg tablet,delayed release 40 mg PO BID 30 days #60 tabs 08/23/23 Weight / BMI Weight Weight: 208 lb 5.389 oz Body Mass Index (BMI) 46.7 ABG / Lab / Microbiology Data 08/23/23 06:30 08/23/23 06:30 Laboratory: Laboratory Results - last 24 hr 08/23/23 06:30: WBC 9.4, RBC 3.63 L, Hgb 10.2 L, Hct 32.5 L, MCV 89.5, MCH 28.1, MCHC 31.4 L, RDW Std Deviation 47.0 H, RDW Coeff of Raj 14.6, Plt Count 351, MPV 9.6, Immature Gran % (Auto) 0.300, Neut % (Auto) 73.1 H, Lymph % (Auto) 17.7 L, Bonner % (Auto) 4.6, Eos % (Auto) 4.1, Baso % (Auto) 0.2, Absolute Neuts (auto) 6.9, Absolute Lymphs (auto) 1.67, Nucleated RBC % 0, Sodium 142, Potassium 3.5, Chloride 113 H, Carbon Dioxide 24.0, Anion Gap 5, BUN 4 L, Creatinine 0.94, Estim Creat Clear Calc 140.05, Est GFR (MDRD) Af Amer 95, Est GFR (MDRD) Non-Af 78, BUN/Creatinine Ratio 4.2 L, Glucose 112 H, Calcium 8.9, Total Bilirubin 0.20, Direct Bilirubin 0.06, AST 11 L, ALT 23, Alkaline Phosphatase 62, Total Protein 6.9, Albumin 3.2, Globulin 3.7 D/C Instructions Discharge Diet: Soft diet (Soft/transitional diet for 5 days then regular food) Weight Bearing Status: Weight bearing as tolerated Call your doctor if you observe: Fever of 101 or Higher, Coldness, Increased Pain, Numbness or Tingling, Change in Color, Inability to urinate, Inability to have a bowel movement, Shortness of breath, Dizziness, Fainting spells, Swelling in the ankles, Chest pain, Prolonged hiccupping, Increased palpitations (irre gular heartbeat) and Calf discomfort When: IN 2 WEEKS Meaningful Use Info Meaningful Use Diagnoses (Choose all that apply): None applicable Discharge Plan Admission Admit Date/Time: 08/20/23 19:58 Primary Reason for Your Visit: Acute pancreatitis most likely due to Victoza. Attending Provider: Jose Falcon [facility] Providers: Adrián Nicole; Harris Whitaker Instructions Additional Instructions / Restrictions: Follow-up with a business specialist in [place] who did EGD after 2 weeks for H. pylori gastritis Discharge Orders/Prescriptions Prescriptions: New clarithromycin 250 mg Tablet 500 mg PO BID Qty: 0 0RF Rx Instructions: for 2 weeks pantoprazole 40 mg Tablet,Delayed Release (Dr/Ec) 40 mg PO BID 30 Days Qty: 60 2RF Rx Instructions: 40 mg twice daily for 2 months and then once daily metronidazole 500 mg tablet 500 mg PO TID 14 Days Qty: 42 0RF Rx Instructions: pt has prescription ondansetron HCl 4 mg tablet 4 mg PO Q8H PRN (Reason: nausea and vomiting) Qty: 30 0RF oxycodone 5 mg tablet 2.5 mg PO Q6H PRN (Reason: pain) 3 Days Qty: 10 0RF Rx Instructions: Oxycodone 2.5 mg for 4-6/10 5 mg for 7?10/10 pain intensity Continued fluoxetine [Prozac] 20 mg Capsule 10 mg PO DAILY topiramate 50 mg tablet 50 mg PO QHS lithium carbonate 600 mg capsule 600 mg PO BID propranolol 20 mg tablet 20 mg PO BID risperidone 1 mg tablet 2 mg PO BID lorazepam 1 mg tablet 1 mg PO Q12H PRN (Reason: anxiety) Discontinued liraglutide 0.6 mg/0.1 mL (18 mg/3 mL) pen injector 0.6 mg subcut DAILY Referrals / Follow Up: [facility],Faith Rader [Primary Care Provider] - Fabian Shi DO [Med Staff - Active Staff] - Within 1 Month (for asthma) Disposition Disposition (needs filled in before D/C Order can be placed): Home, Self Care
--- NOTE | 2023-08-23 11:16 | CASEMGMT ---
DEZ PATTEN Face to Face with patient for initial transition planning/care coordination assessment. DEZ PATTEN introduced self and role at [facility]. Patient sitting up in chair, alert and oriented. Patient willing to participate in assessment and is able to answer all questions appropriately. Care providers, pharmacy, and demographics verified. Patient wishes to discharge home. Patient states she has no further needs or concerns at this time. CM to follow for discharge planning needs that may arise. PCP:Faith Barrett Specialists:leeroy Gallagher specialist; Cardio at [facility] Preferred Pharmacy:[facility] [place] Insurance:[place] [employer] Prescription Benefit: yes LNOK:Chanel Prieto, mother; Dex Ricketts, Living Arrangements: Pt lives with , mother, father and 18 mo old son in a two story home with 13 steps to enter with a rail. Pt reports she is I in ADLs and denies concerns at home. Transportation: Pt drives self and denies concerns with transportation. DME:Denies HHC:Denies SNF:Denies Disposition Plan:Home
--- NOTE | 2023-08-23 11:21 | PHA.DC_ITS ---
Pharmacy [facility] has performed discharge medication reconciliation and counseling for this patient. The patient's discharge medication list was reviewed for discrepancies and discrepancies were resolved. The patient was counseled on the following discharge medications and changes in medications for homegoing were reviewed. The Reason for Use, instructions for use, and potential side effects were reviewed for all new medications. The patient's questions regarding all of their medications were answered. 1. Clarithromycin 500 mg PO BID x 2 weeks 2. Metronidazole 500 mg PO TID x 2 weeks 3. Pantoprazole 40 mg PO BID x 2 months then QD thereafter 4. Ondansetron 4 mg PO Q8H PRN nausea/vomiting 5. Oxycodone 2.5-5 mg PO Q6H PRN pain The patient was able to verbally demonstrate an understanding of their discharge medications. Medications at Discharge Home Medications fluoxetine 20 mg capsule (Prozac) 10 mg PO DAILY 02/22/22 lithium carbonate 600 mg capsule 600 mg PO BID 08/20/23 lorazepam 1 mg tablet 1 mg PO Q12H PRN anxiety 08/20/23 propranolol 20 mg tablet 20 mg PO BID 08/20/23 risperidone 1 mg tablet 2 mg PO BID 08/20/23 topiramate 50 mg tablet 50 mg PO QHS 08/20/23 clarithromycin 250 mg tablet 500 mg (2 x 250 mg) PO BID #0 tabs 08/23/23 metronidazole 500 mg tablet 500 mg PO TID 14 days #42 tabs 08/23/23 ondansetron HCl 4 mg tablet 4 mg PO Q8H PRN nausea and vomiting #30 tabs 08/23/23 oxycodone 5 mg tablet 2.5 mg (1/2 x 5 mg) PO Q6H PRN pain 3 days #10 tabs 08/23/23 pantoprazole 40 mg tablet,delayed release 40 mg PO BID 30 days #60 tabs 08/23/23
== END 2023-08-23 13:06 | disposition home or self-care (01) | DRG 282 ==
LOC: ED 19:49 → ICU 08-21 06:55 → MS3 08-22 17:42
PROVIDERS: Admitting Provider Hospitalist; Emergency Provider Emergency Medicine; Visit Provider Internal Medicine
DX: K85.30 Drug induced acute pancreatitis without necrosis or infection (principal); B96.81 Helicobacter pylori [H. pylori] as the cause of diseases classified elsewhere; F31.81 Bipolar II disorder; E66.01 Morbid (severe) obesity due to excess calories; Z68.42 Body mass index [BMI] 45.0-49.9, adult; J45.909 Unspecified asthma, uncomplicated; K29.00 Acute gastritis without bleeding; T38.3X5A Adverse effect of insulin and oral hypoglycemic [antidiabetic] drugs, initial encounter; F41.1 Generalized anxiety disorder; Z79.899 Other long term (current) drug therapy
CPT/HCPCS: 36415; 71260; 74177; 80048; 80053; 80076; 81001; 82150; 83690; 84703; 85025; 85027; 94640; 99283; J7030; J7040; J7120; Q9967; A4216; J2405

== ENCOUNTER → 2023-09-02 | Outpatient (CLI) | payer MEDICAID, SELFPAY ==
[2023-09-02 10:34] LABS: hCG Titer Quant., Serum < 1 mIU/mL (1-3)
[2023-09-02 11:29] LABS: Prolactin 135.2 ng/mL; Thyroid Stim Hormone (TSH) 3.35 uIU/mL (0.358-3.74)
== END | disposition home or self-care (01) ==
LOC: LAB 09:19
PROVIDERS: Referring Provider Advanced Practice Midwife; Visit Provider Advanced Practice Midwife
DX: N64.52 Nipple discharge (principal)
CPT/HCPCS: 36415; 84146; 84443; 84702

== ENCOUNTER → 2023-09-09 | Outpatient (CLI) | payer MEDICAID, SELFPAY ==
[2023-09-09 08:23] LABS: Prolactin 139.3 ng/mL
== END | disposition home or self-care (01) ==
LOC: LAB 07:10
PROVIDERS: Referring Provider Advanced Practice Midwife; Visit Provider Advanced Practice Midwife
DX: N64.52 Nipple discharge (principal)
CPT/HCPCS: 36415; 84146

== ENCOUNTER 2023-09-14 19:25 | Emergency (ER) | payer MEDICAID, SELFPAY ==
[2023-09-14 19:26] VITALS: BP 140/93; PULSE 88; RESP 16; TEMP 35.6; O2SAT 100; BMI 32.5
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
== END 2023-09-14 20:37 | disposition home or self-care (01) ==
LOC: ED 20:27
PROVIDERS: Emergency Provider Emergency Medicine; Referring Provider Emergency Medicine; Visit Provider Emergency Medicine
DX: R53.83 Other fatigue (principal); F31.81 Bipolar II disorder; T50.905A Adverse effect of unspecified drugs, medicaments and biological substances, initial encounter; F41.1 Generalized anxiety disorder; Z79.899 Other long term (current) drug therapy
CPT/HCPCS: 99282

== ENCOUNTER 2023-09-15 19:17 | Emergency (ER) | payer MEDICAID, SELFPAY ==
[2023-09-15 19:18] VITALS: BP 122/80; PULSE 80; RESP 17; TEMP 36.6; O2SAT 98; BMI 44.4
--- NOTE | 2023-09-15 20:03 | EDS_ITS ---
HPI History of Present Illness Chief Complaint: General Illness Informant: patient and spouse/S.O. Narrative Narrative: 23-year-old female presenting to the emergency room with altered mental status. Patient states that she recently had several psychiatric medications changed. On night she took her first dose of 100 mg trazodone. She had previously been on 50. She went to bed around 9 PM. She woke around 9 AM. She took her father to hospice around 10 was sent home stating that she just did not seem right. She was pulled over and arrested for O . Her alcohol level was 0 per the breathalyzer her report. She states that the day went on the symptoms she was experiencing such as confusion drowsiness falling asleep easily and off balance improved. Saturday night and last night she again took her 100 mg dose of trazodone and again the next morning experienced similar symptoms. She notes that she also had her Prozac increased from 20-40. Latuda was started. No change in her lithium or other medications for change. She denies any headache. No fevers. No rashes. She notes frequent urination. She notes some dry mouth but is unsure if it is any different than normal. No muscle spasms. [facility] Medical History Asthma Bipolar 2 disorder delivery delivered Depression Diabetes Generalized anxiety disorder Migraine PTSD (post-traumatic stress disorder) TBI (traumatic brain injury) Home Medications fluoxetine 20 mg capsule (Prozac) 40 mg PO DAILY 02/22/22 [History Last Taken Unknown] lithium carbonate 600 mg capsule 600 mg PO BID 08/20/23 [History Last Taken Unknown] lorazepam 1 mg tablet 1 mg PO Q12H PRN anxiety 08/20/23 [History Last Taken Unknown] propranolol 20 mg tablet 20 mg PO BID 08/20/23 [History Last Taken Unknown] topiramate 50 mg tablet 50 mg PO QHS 08/20/23 [History Last Taken Unknown] cholecalciferol (vitamin D3) 25 mcg (1,000 unit) tablet (Vitamin D3) 25 mcg PO DAILY 09/02/23 [History Last Taken Unknown] trazodone 50 mg tablet 100 mg PO QHS 09/02/23 [History Last Taken Unknown] potassium chloride 20 mEq tablet,extended release 40 meq (2 x 20 mEq) PO DAILY #10 tabs 09/15/23 [Rx Last Taken Unknown] Allergy/AdvReac Type Severity Reaction Status Date / Time Penicillins Allergy Rash Verified 09/15/23 19:18 Surgical History H/O section History of appendectomy Social History adopted: Yes Smoking Status: Never smoker Electronic Cigarette Use: not used second hand exposure: No alcohol intake: never substance use type: does not use ROS ROS ED ROS Narrative Patient endorses drowsiness Constitutional Constitutional ED: Reports fever(s); Denies chills or weight loss Eyes Eyes: Reports blurry vision; Denies change in vision or diplopia ENT ENT ED: Denies ear pain, rhinorrhea or sore throat Cardiovascular Cardiovascular: Denies chest pain, orthopnea, palpitations or racing heartbeat Respiratory/Chest Respiratory/Chest: Denies cough, dyspnea or orthopnea Gastrointestinal Gastrointestinal: Denies abdominal pain, diarrhea, nausea or vomiting Genitourinary Genitourinary ED: Denies dysuria, hematuria or urinary frequency Musculoskeletal Musculoskeletal: Denies arthralgias or myalgias Integumentary Denies abscess or rash Neurologic Neurologic: Reports other Details: Confusion ataxia forgetfulness ; Denies headache(s), paresthesias or weakness Psychiatric Psychiatric: Denies anxiety, depression, suicidal ideation or suicidal thoughts Endocrine Endocrinology: Denies polydipsia, polyphagia or polyuria Allergic/Immunologic Allergic/Immunologic ED: Denies mouth swelling, tongue swelling or urticaria EXAM Physical Exam Const Vital Signs: 09/15/23 19:18 09/15/23 20:40 Temperature 97.8 F Temperature Source Temporal Pulse Rate 80 Respiratory Rate 17 Respiratory Effort Normal Non-Labored Respiratory Pattern Normal Blood Pressure 122/80 H Blood Pressure Mean 94 Pulse Ox 98 Oxygen Delivery Method Room Air Positive well nourished and well developed General Appearance ED: well developed HEENT Reports normocephalic, head/scalp atraumatic and moist mucous membranes Eyes PERRL and EOMs intact bilaterally Neck no lymphadenopathy, supple and no JVD Resp normal respiratory effort and clear to auscultation bilaterally Cardio regular rate, regular rhythm and no murmurs GI normal to inspection, nondistended, normoactive bowel sounds and non-tender Palpation: soft Back/Spine no CVA tenderness and normal ROM Extremity normal to inspection General Extremety ED: Negative for edema General Extremity: Negative for edema Neuro oriented x3 and CN's II-XII intact bilaterally Sensorium / Orientation: alert Motor Exam: strength 5/5 throughout Psych mental status grossly normal Mood & Affect: Negative for depressed or tearful Skin no rashes or lesions noted and no wounds MDM MDM MDM Narrative Medical decision making narrative: CBC shows a hemoglobin of 11 point. Creatinine 1.01. Liver enzymes appear within normal limits. Glucose of 125. [place] level 0.70. Urine drug screen is negative. Potassium returns unexpectedly low at 3.1. This can be replaced over the next several days. Urinalysis is negative for overt infection. Clinically this appears to be a medication reaction. She had increasing trazod one and the next morning after she takes the increased dose for a period of several hours she has side effects consistent with trazodone injection including confusion somnolence and ataxia. I would recommend the patient going back to the 50 mg dose tonight and calling her doctor in the morning. History & Record Review Discussion w/independent historian: Patient and Family Lab Data Attestation: I reviewed the patient's lab results. Labs: Laboratory Results - last 24 hr 09/15/23 09/15/23 20:25 20:35 WBC 7.3 RBC 4.22 Hgb 11.6 L Hct 37.4 MCV 88.6 MCH 27.5 MCHC 31.0 L RDW Std Deviation 46.3 H RDW Coeff of Raj 14.4 Plt Count 360 MPV 9.8 Immature Gran % (Auto) 0.300 Neut % (Auto) 55.4 Lymph % (Auto) 31.2 [place] % (Auto) 5.8 Eos % (Auto) 6.9 H Baso % (Auto) 0.4 Absolute Neuts (auto) 4.0 Absolute Lymphs (auto) 2.27 Nucleated RBC % 0 Sodium 140 Potassium 3.1 L Chloride 111 H Carbon Dioxide 22.0 Anion Gap 7 BUN 6 L Creatinine 1.01 Estim Creat Clear Calc 124.00 Est GFR (MDRD) Af Amer 88 Est GFR (MDRD) Non-Af 73 BUN/Creatinine Ratio 5.9 L Glucose 125 H Calcium 8.9 Total Bilirubin 0.30 Direct Bilirubin 0.09 AST 15 ALT 48 Alkaline Phosphatase 83 Total Protein 7.5 Albumin 3.6 Globulin 3.9 Lipase 38 Urine Color Yellow Urine Clarity Sl. Cloudy Urine pH 7.0 Ur Specific [place] 1.005 Urine Protein Negative Urine Glucose (UA) Normal Urine Ketones Negative Urine Occult Blood Negative Urine Nitrite Negative Urine Bilirubin Negative Urine Urobilinogen Normal Ur Leukocyte Esterase Negative Urine RBC 0 SEEN Urine WBC 0 SEEN Ur Squamous Epith Cells 0-5 SEEN Amorphous Sediment 1+ PHOS Urine Bacteria 0 SEEN Urine Mucus 0 SEEN Urine Test Negative Urine Opiates Screen NEGATIVE Urine Methadone Screen NEGATIVE Ur Barbiturates Screen NEGATIVE Ur Phencyclidine Scrn NEGATIVE Ur Amphetamines Screen NEGATIVE MDMA (Ecstasy) Screen NEGATIVE U Benzodiazepines Scrn NEGATIVE [place] 0.70 Urine Cocaine Screen NEGATIVE U Cannabinoids Screen NEGATIVE Ur Drug Screen Comment Discharge Plan Triage Chief Complaint: General Illness ED Provider: Fam Salinas Dx/Rx/DC Orders Clinical Impression: Medication side effects, Ataxia, Confusion, Acute hypokalemia Prescriptions: New potassium chloride 20 mEq tablet extended release 40 meq PO DAILY Qty: 10 0RF No Action cholecalciferol (vitamin D3) [Vitamin D3] 25 mcg (1,000 unit) tablet 25 mcg PO DAILY trazodone 50 mg tablet 100 mg PO QHS fluoxetine [Prozac] 20 mg Capsule 40 mg PO DAILY topiramate 50 mg tablet 50 mg PO QHS lithium carbonate 600 mg capsule 600 mg PO BID propranolol 20 mg tablet 20 mg PO BID lorazepam 1 mg tablet 1 mg PO Q12H PRN (Reason: anxiety) Primary Care Provider: Faith Salazar Referrals: [facility] Faith Stevens [Primary Care Provider] - Disposition Disposition: Home, Self Care Discharge Date/Time: 09/15/23 22:22
[2023-09-15 20:36] LABS: Absolute Lymphocyte Count 2.27 X10^3/uL (0.83-4.51); Basophil# 0.03 X10^3/uL; Basophil% 0.4 % (0-1); Eosinophils% 6.9 % (0-5); Hematocrit 37.4 % (37-47); Hemoglobin 11.6 g/dL (12.0-15.0); Lymphocyte # 2.27 X10^3/ul (0.83-4.51); Lymphocyte % 31.2 % (19-41); Mean Corpuscular Hgb 27.5 pg (27.0-32.0); Mean Corpuscular Volume 88.6 fL (81-99); Mean Platelet Vol. 9.8 fl (6.2-12.0); Monocyte# 0.42 X10^3/uL; Monocyte% 5.8 % (0-10); NRBC Flagged by Analyzer 0 % (0-5); Neutrophil # 4.04 X10^3/uL (2.7-7.7); Neutrophil % 55.4 % (47-70); Platelet Count 360 K/mm3 (150-450); RBC Distribution Width CV 14.4 % (11.6-14.6); RBC Distribution Width SD 46.3 fl (35.1-43.9); Red Blood Count 4.22 M/mm3 (4.2-5.4); White Blood Count 7.3 K/mm3 (4.4-11.0)
[2023-09-15 20:43] LABS: Bacteria 0 SEEN /hpf (None Seen); Mucous, Urine 0 SEEN /hpf (<or=2+); Red Blood Cells-Urine 0 SEEN /hpf (0-5); White Blood Cells 0 SEEN /hpf (0-5)
[2023-09-15 20:55] LABS: Color, Urine Yellow (Yellow); Glucose, Dipstick Normal (Normal); Ketone-Dipstick Negative (Negative); Leukocyte Esterase-Dipstick Negative /ul (Negative); Nitrite-Dipstick Negative (Negative); Occult Blood-Urine Negative /ul (Negative); Protein-Dipstick Negative (Negative); Specific Gravity, Urine 1.005 (1.002-1.030); Urine Bilirubin Dipstick Negative (Negative); Urine Clarity Sl. Cloudy (Clear); Urine Urobilinogen Normal (Normal)
[2023-09-15 20:56] LABS: AST(SGOT) 15 U/L (15-37); Alanine Aminotransfer ALT/SGPT 48 U/L (13-56); Albumin, Serum 3.6 g/dL (3.2-5.0); Alkaline Phosphatase 83 U/L (45-117); Anion Gap 7 (5-15); BUN 6 mg/dL (7-18); BUN/Creat Ratio 5.9 RATIO (10-20); Bilirubin, Direct 0.09 mg/dL (0.00-0.30); Calcium,Total 8.9 mg/dL (8.5-10.1); Chloride 111 mmol/L (98-107); Creatinine, Serum 1.01 mg/dL (0.55-1.02); EST Glomerular Filtration Rate 73 mL/min (>60); Est Glom Filt Rate - Afr Amer 88 mL/min (>60); Globulin 3.9 g/dL (2.2-4.2); Glucose 125 mg/dL (74-106); Lipase 38 U/L (13-75); Potassium 3.1 mmol/L (3.5-5.1); Protein, Total 7.5 g/dL (6.4-8.2); Sodium Level 140 mmol/L (136-145)
[2023-09-15 21:01] LABS: Amphetamine Urine VISTA NEGATIVE (<1000 ng/mL); Barbiturate Urine VISTA NEGATIVE (< 200 ng/mL); Benzodiazepine Urine VISTA NEGATIVE (< 200 ng/mL); Cocaine Urine VISTA NEGATIVE (< 300 ng/mL); Ecstacy Urine VISTA NEGATIVE (< 500 ng/mL); Methadone Urine VISTA NEGATIVE (< 300 ng/mL); PCP Urine VISTA NEGATIVE (< 25 ng/mL); THC Urine VISTA NEGATIVE (< 50 ng/mL); Vista UDS pH Range 6
[2023-09-15 21:03] LABS: Squamous Epithelial Cells - UA 0-5 SEEN /hpf (5-10)
[2023-09-15 21:04] LABS: Amorphous Sediment 1+ PHOS; Internal QC Validated? YES +Cl - CLEAR BKGD; Pregnancy, Urine Negative Negative
== END 2023-09-15 22:22 | disposition home or self-care (01) ==
LOC: ED 20:01
PROVIDERS: Emergency Provider Emergency Medicine; Visit Provider Emergency Medicine
DX: R41.82 Altered mental status, unspecified (principal); E87.6 Hypokalemia; R27.0 Ataxia, unspecified; Z79.899 Other long term (current) drug therapy
CPT/HCPCS: 80048; 80076; 80178; 80307; 81001; 81025; 83690; 85025; 99282

== ENCOUNTER 2023-09-16 23:06 | Emergency (ER) | payer MEDICAID, SELFPAY ==
[2023-09-16 23:08] VITALS: BP 118/81; PULSE 80; RESP 16; TEMP 36.6; O2SAT 100; BMI 43.4
--- NOTE | 2023-09-16 23:26 | RAD_ITS ---
EXAM: XR Spine Cervical 4 or 5 Views INDICATION: Female, 23 years old. Neck pain status post fall TECHNIQUE: AP, lateral, and odontoid views COMPARISON: None FINDINGS: The alignment of the cervical spine demonstrates a normal lordosis without focal listhesis or significant scoliosis. No vertebral body or posterior element fracture. Facet joints are in normal alignment without significant degenerative change. Intervertebral disc spaces are preserved. Uncovertebral joints are unremarkable. Odontoid is intact.. RAD/Cerv Spine 2 or 3 Views IMPRESSION: No acute abnormality of the cervical spine Electronically Signed: Richard Cook MD at 0:31 EDT ,
--- NOTE | 2023-09-16 23:27 | EDS_ITS ---
HPI HPI - Psych History of Present Illness Chief Complaint: Mental Health Detail of Chief Complaint: Hallucinations and falls Informant: patient [facility] Medical History Asthma Bipolar 2 disorder delivery delivered Depression Diabetes Generalized anxiety disorder Migraine PTSD (post-traumatic stress disorder) TBI (traumatic brain injury) Home Medications fluoxetine 20 mg capsule (Prozac) 40 mg PO DAILY 02/22/22 [History Last Taken Unknown] lithium carbonate 600 mg capsule 600 mg PO BID 08/20/23 [History Last Taken Unknown] lorazepam 1 mg tablet 1 mg PO Q12H PRN anxiety 08/20/23 [History Last Taken Unknown] propranolol 20 mg tablet 20 mg PO BID 08/20/23 [History Last Taken Unknown] topiramate 50 mg tablet 50 mg PO QHS 08/20/23 [History Last Taken Unknown] cholecalciferol (vitamin D3) 25 mcg (1,000 unit) tablet (Vitamin D3) 25 mcg PO DAILY 09/02/23 [History Last Taken Unknown] trazodone 50 mg tablet 100 mg PO QHS 09/02/23 [History Last Taken Unknown] potassium chloride 20 mEq tablet,extended release 40 meq (2 x 20 mEq) PO DAILY #10 tabs 09/15/23 [Rx Last Taken Unknown] Allergy/AdvReac Type Severity Reaction Status Date / Time Penicillins Allergy Rash Verified 09/16/23 23:08 Surgical History H/O section History of appendectomy Social History adopted: Yes Smoking Status: Never smoker Electronic Cigarette Use: not used second hand exposure: No alcohol intake: never substance use type: does not use EXAM Physical Exam Const Vital Signs: 09/16/23 23:08 Temperature 97.8 F Temperature Source Temporal Pulse Rate 80 Respiratory Rate 16 Blood Pressure 118/81 H Blood Pressure Mean 93 Pulse Ox 100 Discharge Plan Triage Chief Complaint: Mental Health ED Provider: Obi Quinteros Dx/Rx/DC Orders Prescriptions: No Action cholecalciferol (vitamin D3) [Vitamin D3] 25 mcg (1,000 unit) tablet 25 mcg PO DAILY trazodone 50 mg tablet 100 mg PO QHS fluoxetine [Prozac] 20 mg Capsule 40 mg PO DAILY topiramate 50 mg tablet 50 mg PO QHS lithium carbonate 600 mg capsule 600 mg PO BID propranolol 20 mg tablet 20 mg PO BID lorazepam 1 mg tablet 1 mg PO Q12H PRN (Reason: anxiety) potassium chloride 20 mEq tablet extended release 40 meq PO DAILY Qty: 10 0RF Primary Care Provider: [facility] Faith Stevens Referrals: [facility] Faith Stevens [Primary Care Provider] -
[2023-09-16 23:51] LABS: Absolute Lymphocyte Count 2.21 X10^3/uL (0.83-4.51); Absolute Neutrophil Count 5.5 X10^3/uL (2.0-7.7); Basophil# 0.05 X10^3/uL; Basophil% 0.6 % (0-1); Eosinophils% 6.7 % (0-5); Hematocrit 38.1 % (37-47); Hemoglobin 11.9 g/dL (12.0-15.0); Lymphocyte # 2.21 X10^3/ul (0.83-4.51); Lymphocyte % 24.7 % (19-41); Mean Corp Hgb Conc 31.2 g/dL (32-36); Mean Corpuscular Hgb 27.4 pg (27.0-32.0); Mean Corpuscular Volume 87.8 fL (81-99); Mean Platelet Vol. 9.6 fl (6.2-12.0); Monocyte# 0.62 X10^3/uL; Monocyte% 6.9 % (0-10); NRBC Flagged by Analyzer 0 % (0-5); Neutrophil # 5.45 X10^3/uL (2.7-7.7); Neutrophil % 60.8 % (47-70); Platelet Count 343 K/mm3 (150-450); RBC Distribution Width CV 14.3 % (11.6-14.6); RBC Distribution Width SD 46.2 fl (35.1-43.9); Red Blood Count 4.34 M/mm3 (4.2-5.4)
[2023-09-17 00:01] LABS: Internal QC Validated? YES +Cl - CLEAR BKGD; Pregnancy, Serum, hCG Quali. NEGATIVE Negative
[2023-09-17 00:08] LABS: ALB/GLOB Ratio 0.9 RATIO (0.9-2.4); AST(SGOT) 12 U/L (15-37); Alanine Aminotransfer ALT/SGPT 48 U/L (13-56); Albumin, Serum 3.6 g/dL (3.2-5.0); Alkaline Phosphatase 80 U/L (45-117); Anion Gap 5 (5-15); BUN 6 mg/dL (7-18); BUN/Creat Ratio 6.2 RATIO (10-20); Calcium,Total 9.3 mg/dL (8.5-10.1); Chloride 113 mmol/L (98-107); Creatinine, Serum 0.97 mg/dL (0.55-1.02); EST Glomerular Filtration Rate 76 mL/min (>60); Est Glom Filt Rate - Afr Amer 92 mL/min (>60); Estimated Creatinine Clearance 126.38 ml/min; Globulin 3.9 g/dL (2.2-4.2); Glucose 111 mg/dL (74-106); Potassium 3.4 mmol/L (3.5-5.1); Protein, Total 7.5 g/dL (6.4-8.2); Sodium Level 141 mmol/L (136-145)
[2023-09-17 00:12] LABS: Alcohol, Blood (Medical)-Serum < 3.0 mg/dL
[2023-09-17 01:02] LABS: Amphetamine Urine VISTA NEGATIVE (<1000 ng/mL); Barbiturate Urine VISTA NEGATIVE (< 200 ng/mL); Benzodiazepine Urine VISTA NEGATIVE (< 200 ng/mL); Cocaine Urine VISTA NEGATIVE (< 300 ng/mL); Ecstacy Urine VISTA NEGATIVE (< 500 ng/mL); Methadone Urine VISTA NEGATIVE (< 300 ng/mL); PCP Urine VISTA NEGATIVE (< 25 ng/mL); THC Urine VISTA NEGATIVE (< 50 ng/mL); Vista UDS pH Range 7
[2023-09-17 01:08] VITALS: RESP 16
[2023-09-17 03:00] VITALS: RESP 16
[2023-09-17 05:00] VITALS: BP 101/74; PULSE 81; RESP 16; O2SAT 99
--- NOTE | 2023-09-17 05:30 | ED.RN ---
PT RANG OUT REQUESTING JUICE AND A PILLOW. WHEN THIS NURSE INITIALLY WALKED INTO ROOM, PT WAS SITTING UP ALERT AND TALKATIVE. WHILE POURING JUICE AND TALKING TO HER, SHE BEGAN SPEAKING SLOWLY AND SHE BEGAN TO HAVE A FLAT AFFECT.
--- NOTE | 2023-09-17 05:55 | ED.RN ---
PT RANG OUT AND STATED SHE FELL ON THE FLOOR. SHE WAS FOUND IN BED DRINKING HER JUICE. SHE REPORTS SHE GOT OUT OF BED, SAT ON THE CHAIR THEN SLID OUT OF THE CHAIR TO THE FLOOR. SHE THEN REPORTS SHE GOT UP AND WALKED TO THE COUNTER, OPENED HER JUICE, AND WALKED BACK TO BED WITHOUT DIFFICULTY INDEPENDENTLY, THEN RANG FOR HELP.
--- NOTE | 2023-09-17 10:26 | CM.ED ---
Addendum entered by Renae Valdez 09/17/23 11:38: SW received voluntary admission documents from [facility]. SW reviewed papers and gave patient time to review documentation. PT signed documents and SW witnessed signature and signed as a witness. SW faxed documents to [facility] and to [facility] for their records. Crisis notified. Renae BROOKS, CAROLINE Original Note: Social Work SW called crisis for status update on placement. Crisis reports [facility] will be faxing them voluntary admission paperwork which will be faxed to the hospital when received. Admission to [facility] pending paperwork. Renae BROOKS, [employer]
[2023-09-17 12:40] VITALS: BP 141/78; PULSE 84; RESP 18; TEMP 36.6; O2SAT 98
--- NOTE | 2023-09-17 15:03 | ED.RN ---
Report given to emily at [facility]
[2023-09-17] MEDS: Acetaminophen 500 MG Tablet 1000 MG PO (15:05)
--- NOTE | 2023-09-17 23:26 | CT_ITS ---
STUDY: CT BRAIN WITHOUT CONTRAST REASON FOR EXAM: Female, 23 years old. Headache status post fall RADIATION DOSAGE (If Supplied By Facility): CTDIvol = ( 44.99 ) mGy, DLP = ( 812.98 ) mGycm TECHNIQUE: Transaxial CT imaging of the brain was performed without administration of intravenous contrast material. Individualized dose optimization techniques were used for this CT. COMPARISON: No relevant priors. FINDINGS: Normal soft tissue structures. Normal calvarium. Normal size ventricles and extra-axial spaces for the patient''s age. Normal white matter tracts of the cerebral hemispheres. Normal basal ganglia and thalami. Normal brainstem. Normal cerebellum. There is no intracranial hemorrhage. There are no findings of an acute ischemic infarction. Normal visualized paranasal sinuses. CT/Brain/Head without Contrast IMPRESSION: Normal unenhanced CT scan of the brain. Electronically Signed: Richard Cook MD at 0:35 EDT ,
== END 2023-09-17 15:16 ==
PROVIDERS: Emergency Provider Emergency Medicine; Visit Provider Emergency Medicine
DX: F32.A Depression, unspecified (principal); R44.3 Hallucinations, unspecified; Z79.899 Other long term (current) drug therapy
CPT/HCPCS: 70450; 72040; 80053; 80178; 80307; 82077; 84703; 85025; 99283

== ENCOUNTER → 2023-09-23 | Outpatient (CLI) | payer MEDICAID, SELFPAY | END | disposition home or self-care (01) | LOC: LAB 09:15 | DX: F25.0 Schizoaffective disorder, bipolar type (principal); Z79.899 Other long term (current) drug therapy | CPT/HCPCS: 36415; 80178 ==

== ENCOUNTER 2023-12-17 13:28 | Emergency (ER) | payer MEDICAID, SELFPAY ==
[2023-12-17 13:29] VITALS: BP 127/89; PULSE 89; RESP 18; TEMP 36.1; O2SAT 100; BMI 43.0
--- NOTE | 2023-12-17 13:54 | EX.ED.DYSGE1 ---
HPI History of Present Illness Chief Complaint: Dizziness Informant: patient and spouse/S.O. Onset/Context/Timing Onset: Today Current Severity: Mild Maximum Severity: Mild Narrative Narrative: 21-year-old female history of migraine headaches, bipolar, PTSD and anxiety and diabetes. Said today she had mild nausea and headaches beginning around 6:30 AM. Dizziness for the last hour or so. Denies of the room spinning. Says she feels lightheaded. No head trauma. No fever. No vomiting or diarrhea. Prior similar symptoms: Yes Recent Illness/Hospitalization: No PFSH PFSH Medical History Asthma Bipolar 2 disorder delivery delivered Depression Diabetes Generalized anxiety disorder Migraine PTSD (post-traumatic stress disorder) TBI (traumatic brain injury) Home Medications fluoxetine 20 mg capsule (Prozac) 20 mg PO DAILY 02/22/22 [History Last Taken Unknown] lithium carbonate 600 mg capsule 600 mg PO BID 08/20/23 [History Last Taken Unknown] propranolol 20 mg tablet 20 mg PO BID 08/20/23 [History Last Taken Unknown] topiramate 50 mg tablet 50 mg PO QHS 08/20/23 [History Last Taken Unknown] cholecalciferol (vitamin D3) 25 mcg (1,000 unit) tablet (Vitamin D3) 25 mcg PO DAILY 09/02/23 [History Last Taken Unknown] trazodone 50 mg tablet 50 mg PO QHS 09/02/23 [History Last Taken Unknown] potassium chloride 20 mEq tablet,extended release 40 meq (2 x 20 mEq) PO DAILY #10 tabs 09/15/23 [Rx Last Taken Unknown] lurasidone 20 mg tablet 20 mg PO QHS 09/17/23 [History Last Taken Unknown] Allergy/AdvReac Type Severity Reaction Status Date / Time Penicillins Allergy Rash Verified 12/17/23 13:29 Surgical History H/O section History of appendectomy Social History adopted: Yes Smoking Status: Never smoker Electronic Cigarette Use: not used second hand exposure: No alcohol intake: never substance use type: does not use ROS ROS ED ROS Narrative Headache. Nausea. Lightheaded. Review of Systems ROS Unobtainable: Denies due to encephalopathy Constitutional Constitutional ED: Denies chills or fever(s) Eyes Eyes: Denies blurry vision ENT ENT ED: Denies ear pain Cardiovascular Cardiovascular: Denies chest pain Respiratory/Chest Respiratory/Chest: Denies cough or dyspnea Gastrointestinal Gastrointestinal: Reports nausea; Denies abdominal pain, constipation, diarrhea, melena or vomiting Genitourinary Genitourinary ED: Denies dysuria or hematuria Musculoskeletal Musculoskeletal: Denies arthralgias Integumentary Denies abscess or Abrasions Neurologic Neurologic: Reports headache(s) Psychiatric Psychiatric: Denies anxiety or depression Endocrine Endocrinology: Denies cold intolerance or heat intolerance Hematologic/Lymphatic Hematologic/Lymphatic: Reports none Allergic/Immunologic Allergic/Immunologic ED: Denies mouth swelling, tongue swelling or urticaria EXAM Physical Exam Narrative Exam Narrative: 23-year-old female no acute distress. Vital signs stable afebrile. Pulse ox 100% on room air no signs hypoxia. Sitting upright in bed. Clinically looks well. Male at bedside. H EENT exam normal. TMs normal. Pupils round reactive light. No facial droop. Moist mucous membranes. No trauma. Neck nontender. No meningismus. No lymphadenopathy. Lungs clear to auscultation bilaterally. Heart regular rhythm rate about 90 no murmur. Chest wall and ribs nontender. Abdomen soft nontender. Back nontender. Moving all 4 extremities. 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 Dorsi plantarflexion intact. Neurologic exam normal. Awake and alert. Answering questions. Following commands. Voice and speech. No facial droop. Fingertip to nose and [id number] within normal limits bilaterally. She gets up from the bed ambulates without any difficulty. NIH score is 0. Const Vital Signs: 12/17/23 13:29 Temperature 96.9 F L Temperature Source Temporal Pulse Rate 89 Respiratory Rate 18 Blood Pressure 127/89 H Blood Pressure Mean 101 Pulse Ox 100 Oxygen Delivery Method Room Air Positive well nourished and well developed; Negative for cachectic, contractures or unkempt General Appearance ED: well developed and NAD; Negative for unkempt, cachectic, contractures, cyanotic, diaphoretic or pallor Nutritional Appearance: Negative for cachectic HEENT Reports moist mucous membranes; Denies dry mucous membranes Negative for trauma or tenderness Mouth ED: No dry mucous membranes Mouth: No dry mucous membranes Eyes PERRL and EOMs intact bilaterally General Eye ED: Negative for pale conjunctiva or scleral icterus Neck no lymphadenopathy, supple and no JVD General: Negative for tenderness Lymph Lymphatic: Negative for other Chest Wall inspection of chest normal and palpation of chest normal Chest: Negative for other Resp normal respiratory effort and clear to auscultation bilaterally Effort and Inspection: Negative for retractions or pain with movement Auscultation: Negative for rales, rhonchi or wheezes Cardio regular rate, regular rhythm, S1 normal heart sound, S2 normal heart sound and no murmurs Palpation: Negative for palpable S3 or palpable S4 Rate: Negative for bradycardia or tachycardic Rhythm: Negative for abnormal rhythm GI normal to inspection, nondistended, normoactive bowel sounds, non-tender, non-distended and no masses Inspection: Negative for abdominal distention Palpation: soft; Negative for tender or guarding Bladder / Kidney Exam: No other Back/Spine no CVA tenderness General Back: Negative for CVA tenderness Cervical Spine: Negative for cervical spine tenderness Thoracic Spine / Upper Back: Negative for thoracic spinal tenderness or paraspinal muscle tenderness Lumbar Spine / Lower Back: Negative for lumbar spinal tenderness Extremity normal to inspection General Extremety ED: Negative for edema or tenderness General Extremity: Negative for edema Neuro oriented x3 and CN's II-XII intact bilaterally Sensorium / Orientation: alert; Negative for orientation impaired, lethargic or stuporous Motor Exam: strength 5/5 throughout Psych mental status grossly normal Appearance: Negative for unkempt Attitude: No agitated Mood & Affect: Negative for depressed, anxious or tearful Skin no rashes or lesions noted, no wounds and skin turgor normal General Skin Exam: elasticity normal; Negative for jaundice or pallor Lesions: No lesion noted Rashes: No rashes noted Trauma: Negative for abrasion Wounds: Negative for wounds noted MDM MDM MDM Narrative Medical decision making narrative: 23-year-old with clinical dizziness. Normal exam. Normal neurologic exam. Ambulates on any difficulty. This patient has had extensive imaging in the past including MRI, CT and CTA head oddly she needs any brain imaging today. Screening labs and a lithium level. Repeat exam patient doing well at 2:54 PM. Exam remains normal and benign. We went over test results. She will be discharged home. Outpatient follow-up. Lab Data Attestation: I reviewed the patient's lab results. Lab results narrative: CBC shows a white count of 7. H&H 11.7 and 36.6. Platelets 372. Consistent with prior labs at her prior anemia. Electrolytes show a gap of 5. Normal BUN and creatinine 11 and 0.9. Glucose 102. [place] level is low at 0.4 not high and not causing her symptoms. Labs: Laboratory Results - last 24 hr 12/17/23 14:00 WBC 7.0 RBC 4.07 L Hgb 11.7 L Hct 36.6 L MCV 89.9 MCH 28.7 MCHC 32.0 RDW Std Deviation 44.6 H RDW Coeff of Raj 13.5 Plt Count 372 MPV 9.4 Immature Gran % (Auto) 0.300 Neut % (Auto) 66.2 Lymph % (Auto) 23.6 [place] % (Auto) 6.2 Eos % (Auto) 3.3 Baso % (Auto) 0.4 Absolute Neuts (auto) 4.6 Absolute Lymphs (auto) 1.65 Nucleated RBC % 0 Sodium 139 Potassium 3.7 Chloride 109 H Carbon Dioxide 25.0 Anion Gap 5 BUN 11 Creatinine 0.90 Estim Creat Clear Calc 96.12 Est GFR (MDRD) Af Amer 99 Est GFR (MDRD) Non-Af 82 BUN/Creatinine Ratio 12.2 Glucose 102 Calcium 9.4 [place] 0.40 L Discharge Plan Triage Chief Complaint: Dizziness Other Complaint: Nausea/Vomiting ED Provider: Gregorio Childress Dx/Rx/DC Orders Clinical Impression: Dizziness of unknown cause, History of post traumatic stress disorder, History of diabetes mellitus Instructions: ED Dizziness, Uncertain Cause Prescriptions: No Action cholecalciferol (vitamin D3) [Vitamin D3] 25 mcg (1,000 unit) tablet 25 mcg PO DAILY trazodone 50 mg tablet 50 mg PO QHS fluoxetine [Prozac] 20 mg Capsule 20 mg PO DAILY topiramate 50 mg tablet 50 mg PO QHS lithium carbonate 600 mg capsule 600 mg PO BID propranolol 20 mg tablet 20 mg PO BID potassium chloride 20 mEq tablet extended release 40 meq PO DAILY Qty: 10 0RF lurasidone 20 mg tablet 20 mg PO QHS Primary Care Provider: [facility] Faith Stevens Referrals: [facility] Faith Stevens [Primary Care Provider] - 3-5 Days if not improving Activity Restrictions/Additional Instructions: Your labs are consistent with your prior labs. Your lithium level is actually low at 0.4. Follow-up with your doctor if not improving. Disposition Disposition: Home, Self Care Capacity Legal Cost Estimator Reflex Medical hold order details:: IF a medical hold is selected below, a suggested order for a MEDICAL HOLD will reflex upon signing the document. Next of kin: [place] law dictates a PRIORITY LIST for identifying legal decision-maker/legal next of kin in the following order (LNOK): 1st: The patient?s legal guardian, if any 2nd: The patient's spouse (if status is questionable, consult Risk Management) 3rd: The patient?s adult child(alina) (majority, if multiple children) 4th: The patient?s parents 5th: The patient?s adult siblings (majority, if multiple children siblings)
[2023-12-17 14:14] LABS: Absolute Lymphocyte Count 1.65 X10^3/uL (0.83-4.51); Absolute Neutrophil Count 4.6 X10^3/uL (2.0-7.7); Basophil# 0.03 X10^3/uL; Basophil% 0.4 % (0-1); Eosinophil# 0.23 X10^3/uL; Eosinophils% 3.3 % (0-5); Hematocrit 36.6 % (37-47); Hemoglobin 11.7 g/dL (12.0-15.0); Lymphocyte # 1.65 X10^3/ul (0.83-4.51); Lymphocyte % 23.6 % (19-41); Mean Corpuscular Hgb 28.7 pg (27.0-32.0); Mean Corpuscular Volume 89.9 fL (81-99); Mean Platelet Vol. 9.4 fl (6.2-12.0); Monocyte# 0.43 X10^3/uL; Monocyte% 6.2 % (0-10); NRBC Flagged by Analyzer 0 % (0-5); Neutrophil # 4.62 X10^3/uL (2.7-7.7); Neutrophil % 66.2 % (47-70); Platelet Count 372 K/mm3 (150-450); RBC Distribution Width CV 13.5 % (11.6-14.6); RBC Distribution Width SD 44.6 fl (35.1-43.9); Red Blood Count 4.07 M/mm3 (4.2-5.4)
[2023-12-17 14:21] LABS: Anion Gap 5 (5-15); BUN 11 mg/dL (7-18); BUN/Creat Ratio 12.2 RATIO (10-20); Calcium,Total 9.4 mg/dL (8.5-10.1); Chloride 109 mmol/L (98-107); EST Glomerular Filtration Rate 82 mL/min (>60); Est Glom Filt Rate - Afr Amer 99 mL/min (>60); Estimated Creatinine Clearance 96.12 ml/min; Glucose 102 mg/dL (74-106); Potassium 3.7 mmol/L (3.5-5.1); Sodium Level 139 mmol/L (136-145)
[2023-12-17 15:06] VITALS: PULSE 77; RESP 16; O2SAT 99
== END 2023-12-17 15:08 | disposition home or self-care (01) ==
PROVIDERS: Emergency Provider Emergency Medicine; Referring Provider Emergency Medicine; Visit Provider Emergency Medicine
DX: R42 Dizziness and giddiness (principal); E11.9 Type 2 diabetes mellitus without complications
CPT/HCPCS: 80048; 80178; 85025; 99283; A4216

== ENCOUNTER 2023-12-30 10:33 | Emergency (ER) | payer MEDICAID, SELFPAY ==
[2023-12-30 10:34] VITALS: BP 135/107; PULSE 86; RESP 14; TEMP 36.7; O2SAT 100; BMI 41.0
[2023-12-30] MEDS: 0.9% Normal Saline (1000mL) 1,000 ML 1000 ML IV (11:12)
[2023-12-30] MEDS: Ondansetron 4 MG/2 ML Vial IV (11:14)
--- NOTE | 2023-12-30 11:33 | EDS_ITS ---
HPI History of Present Illness Chief Complaint: Nausea/Vomiting Informant: patient Narrative Narrative: Patient presenting with intermittent nausea and lightheaded symptoms for past week. She lost her father a week ago he was in hospice. Denies abdominal pain. Denies prodromal chest pains or lightheaded symptoms. Denies urinary symptoms. Reports mild headache symptoms. No fevers nor myalgias. Mild symptoms previously however not as severe. She went to work. She reports mild loose stools yesterday nonbloody. Came here for evaluation. [facility] Medical History Asthma Bipolar 2 disorder delivery delivered Depression Diabetes Generalized anxiety disorder Migraine PTSD (post-traumatic stress disorder) TBI (traumatic brain injury) Home Medications fluoxetine 20 mg capsule (Prozac) 20 mg PO DAILY 02/22/22 [History Last Taken Unknown] lithium carbonate 600 mg capsule 600 mg PO BID 08/20/23 [History Last Taken Unknown] propranolol 20 mg tablet 20 mg PO BID 08/20/23 [History Last Taken Unknown] topiramate 50 mg tablet 50 mg PO QHS 08/20/23 [History Last Taken Unknown] cholecalciferol (vitamin D3) 25 mcg (1,000 unit) tablet (Vitamin D3) 25 mcg PO DAILY 09/02/23 [History Last Taken Unknown] trazodone 50 mg tablet 50 mg PO QHS 09/02/23 [History Last Taken Unknown] potassium chloride 20 mEq tablet,extended release 40 meq (2 x 20 mEq) PO DAILY #10 tabs 09/15/23 [Rx Last Taken Unknown] lurasidone 20 mg tablet 20 mg PO QHS 09/17/23 [History Last Taken Unknown] Allergy/AdvReac Type Severity Reaction Status Date / Time Penicillins Allergy Rash Verified 12/30/23 10:35 fluoxetine [From Prozac] AdvReac Mild Other Verified 12/30/23 10:35 Surgical History H/O section History of appendectomy Social History adopted: Yes Smoking Status: Never smoker Electronic Cigarette Use: not used second hand exposure: No alcohol intake: never substance use type: does not use ROS ROS ED Constitutional Constitutional ED: Denies chills, fever(s) or sweats Eyes Eyes: Denies change in vision ENT ENT ED: Denies dysphagia or sore throat Cardiovascular Cardiovascular: Reports other Details: Lightheaded symptoms. ; Denies chest pain, leg edema, palpitations or racing heartbeat Respiratory/Chest Respiratory/Chest: Denies cough, dyspnea or dyspnea on exertion Gastrointestinal Gastrointestinal: Reports diarrhea; Denies abdominal pain, nausea or vomiting Genitourinary Genitourinary ED: Denies dysuria, hematuria or urinary frequency Musculoskeletal Musculoskeletal: Denies back pain, extremity pain or neck pain Integumentary Denies rash or wounds Neurologic Neurologic: Reports headache(s); Denies paresthesias or weakness EXAM Physical Exam Const Vital Signs: 12/30/23 10:34 12/30/23 11:42 Temperature 98.0 F Temperature Source Temporal Pulse Rate 86 72 Respiratory Rate 14 Blood Pressure 135/107 H Blood Pressure Mean 116 Pulse Ox 100 Oxygen Delivery Method Room Air Positive well nourished and well developed General Appearance ED: well developed and NAD HEENT Reports moist mucous membranes normocephalic and atraumatic Eyes PERRL, EOMs intact bilaterally and conjunctivae normal General Eye ED: Yes normal appearance of both eyes Neck no lymphadenopathy and supple General: Negative for tenderness Chest Wall Chest: Negative for tenderness Resp normal respiratory effort and normal air movement Effort and Inspection: symmetric chest movement; Negative for respiratory distress Cardio regular rate, regular rhythm and no murmurs Peripheral Pulses: pulses 2+ throughout GI normal to inspection, nondistended, normoactive bowel sounds and non-tender Palpation: Negative for guarding or rebound tenderness present Back/Spine no CVA tenderness and no thoracic nor lumbar tenderness Extremity normal to inspection General Extremety ED: Negative for edema or tenderness General Extremity: Negative for edema Neuro oriented x3 and no sensory deficits noted Sensorium / Orientation: awake and alert Skin no rashes or lesions noted and no wounds MDM MDM MDM Narrative Medical decision making narrative: Interventions / MDM: Differential diagnosis: Cardiac dysrhythmia, electrolyte abnormalities, viral syndrome Diagnosis considered but do not suspect: No recent antibiotics for concern for C. difficile. My EKG interpretation: Sinus rhythm 69, no ST changes, T wave inversion V1 V2, 3 and aVF, QTc 428. Imaging independently reviewed and interpreted by myself: N/A External documents reviewed: N/A Test considered but not ordered:N/A ED course: Patient vital stable no focal deficits. Reports near syncope event. Diarrhea yesterday no myalgias. No recent antibiotics. Labs were obtained for evaluation IV fluids COVID flu and RSV sent. EKG notes T wave inversions however no signs of dysrhythmia. No chest pains. Labs stable hemoglobin 11.8. hCG negative. COVID, influenza RSV negative. Clinically feeling better on reevaluation. Discharged with outpatient follow- up. Re-evaluation: stable Disposition discussed with patient/family/significant other: Patient Case discussed with consulting clinician: N/A This note was generated with [employer] dictation software. It may contain incorrect words, spelling, and punctuation that were not noted in checking the note before signing. Lab Data Attestation: I reviewed the patient's lab results. Labs: Laboratory Results - last 24 hr 12/30/23 11:12 WBC 6.3 RBC 4.33 Hgb 11.8 L Hct 38.4 MCV 88.7 MCH 27.3 MCHC 30.7 L RDW Std Deviation 43.8 RDW Coeff of Raj 13.2 Plt Count 469 H MPV 9.6 Immature Gran % (Auto) 0.300 Neut % (Auto) 67.1 Lymph % (Auto) 24.4 [place] % (Auto) 4.9 Eos % (Auto) 2.8 Baso % (Auto) 0.5 Absolute Neuts (auto) 4.2 Absolute Lymphs (auto) 1.54 Nucleated RBC % 0 Sodium 137 Potassium 3.7 Chloride 111 H Carbon Dioxide 21.0 Anion Gap 5 BUN 5 L Creatinine 0.89 Estim Creat Clear Calc 94.72 Est GFR (MDRD) Af Amer 101 Est GFR (MDRD) Non-Af 83 BUN/Creatinine Ratio 5.6 L Glucose 101 Calcium 9.8 Serum , Qual NEGATIVE Discharge Plan Triage Chief Complaint: Nausea/Vomiting ED Provider: Syed Peter Dx/Rx/DC Orders Clinical Impression: Diarrhea, Near syncope Instructions: ED Diarrhea, Unknown Cause, ED Near-Fainting, Uncertain Cause Prescriptions: No Action cholecalciferol (vitamin D3) [Vitamin D3] 25 mcg (1,000 unit) tablet 25 mcg PO DAILY trazodone 50 mg tablet 50 mg PO QHS fluoxetine [Prozac] 20 mg Capsule 20 mg PO DAILY topiramate 50 mg tablet 50 mg PO QHS lithium carbonate 600 mg capsule 600 mg PO BID propranolol 20 mg tablet 20 mg PO BID potassium chloride 20 mEq tablet extended release 40 meq PO DAILY Qty: 10 0RF lurasidone 20 mg tablet 20 mg PO QHS Primary Care Provider: [facility] Faith Stevens Referrals: [facility] Faith Stevens [Primary Care Provider] - 5-7 Days Activity Restrictions/Additional Instructions: EKG normal. Labs all stable hemoglobin 11.8. COVID flu and RSV negative. Continue oral fluids for hydration. Tylenol or Motrin as needed. Follow-up with your doctor. Disposition Disposition: Home, Self Care
[2023-12-30 11:39] LABS: Absolute Lymphocyte Count 1.54 X10^3/uL (0.83-4.51); Absolute Neutrophil Count 4.2 X10^3/uL (2.0-7.7); Basophil# 0.03 X10^3/uL; Basophil% 0.5 % (0-1); Eosinophil# 0.18 X10^3/uL; Eosinophils% 2.8 % (0-5); Hematocrit 38.4 % (37-47); Hemoglobin 11.8 g/dL (12.0-15.0); Lymphocyte # 1.54 X10^3/ul (0.83-4.51); Lymphocyte % 24.4 % (19-41); Mean Corp Hgb Conc 30.7 g/dL (32-36); Mean Corpuscular Hgb 27.3 pg (27.0-32.0); Mean Corpuscular Volume 88.7 fL (81-99); Mean Platelet Vol. 9.6 fl (6.2-12.0); Monocyte# 0.31 X10^3/uL; Monocyte% 4.9 % (0-10); NRBC Flagged by Analyzer 0 % (0-5); Neutrophil # 4.24 X10^3/uL (2.7-7.7); Neutrophil % 67.1 % (47-70); Platelet Count 469 K/mm3 (150-450); RBC Distribution Width CV 13.2 % (11.6-14.6); RBC Distribution Width SD 43.8 fl (35.1-43.9); Red Blood Count 4.33 M/mm3 (4.2-5.4); White Blood Count 6.3 K/mm3 (4.4-11.0)
[2023-12-30 11:42] VITALS: PULSE 72
[2023-12-30 11:52] LABS: Anion Gap 5 (5-15); BUN 5 mg/dL (7-18); BUN/Creat Ratio 5.6 RATIO (10-20); Calcium,Total 9.8 mg/dL (8.5-10.1); Chloride 111 mmol/L (98-107); Creatinine, Serum 0.89 mg/dL (0.55-1.02); EST Glomerular Filtration Rate 83 mL/min (>60); Est Glom Filt Rate - Afr Amer 101 mL/min (>60); Estimated Creatinine Clearance 94.72 ml/min; Glucose 101 mg/dL (74-106); Potassium 3.7 mmol/L (3.5-5.1); Sodium Level 137 mmol/L (136-145)
--- OUTSIDE RECORDS SUMMARY | 2023-12-30 12:25 | XMS RPT_ITS | CCD ---
Author Name Unknown Address [address] [place] [address] Organization [facility] Care Team Providers Care Customer Solutions Supervisor Name Role Phone LIBIA GLEASON Unavailable Unavailable SUMMER CHANEY Unavailable Unavailable SUMMER CHANEY Unavailable Unavailable David Goss Unavailable Unavailable David Goss Unavailable Unavailable Summer Chaney Unavailable Unavailable RICKY MAE Unavailable Unavailable DEBRA SMITH Primary Care Unavailable RICKY EDGE Referring Unavailable LUIS TORRES, DEBRA Primary Care Physician Unavailable Primary Care Provider Unavailabl e No, Physician Primary Care Provider Unavailabl e No, Physician Primary Care Provider Unavailabl e No, Physician Primary Care Provider Unavailabl e Luis MUNSON, Debra Primary Care Provider Madga Kelly Primary Care Provider [phone] Ciaran Fritz MD Unavailable Magda Kelly Primary Care Provider [phone] Ciaran Fritz MD Unavailable JOHANA RESENDEZ Attending Unavailable DIPTI UPENDER Admitting Unavailable SAUL PETERSON Consulting Unavailable NO, PHYSICIAN Primary Care Unavailable BELGICA TSRANGE Consulting Unavailable BELGICA STRANGE Admitting Unavailable NO, PHYSICIAN Primary Care Unavailable BELGICA STRANGE Attending Unavailable BRAEDEN GARCIA Consulting Unavailab le NO, PHYSICIAN Primary Care Unavailable BELGICA STRANGE Attending Unavailable NO, PHYSICIAN Primary Care Unavailable NO, PHYSICIAN Primary Care Unavailable GISELE FLORES Attending Unavailable GISELE FLORES Attending Unavailable NO, PHYSICIAN Primary Care Unavailable BELGICA STRANGE Attending Unavailable NO, PHYSICIAN Primary Care Unavailable NO, PHYSICIAN Primary Care Unavailable BELGICA STRANGE Attending Unavailable NO, PHYSICIAN Primary Care Unavailable BELGICA STRANGE Attending Unavailable NO, PHYSICIAN Primary Care Unavailable BELGICA STRANGE Attending Unavailable BELGICA STRANGE Attending Unavailable NO, PHYSICIAN Primary Care Unavailable BELGICA STRANGE Attending Unavailable NO, PHYSICIAN Primary Care Unavailable BELGICA STRANGE Attending Unavailable NO, PHYSICIAN Primary Care Unavailable PHILIP MACIAS, DR KAY Attending Unavailab ELOY Perez MD Attending Unavailable ROBIN, MAGDA Primary Care Unavailable MARIA T, MIGUELANGEL Attending Unavailable ROBIN, MAGDA Primary Care Unavailable BRIDLE, JEREMY R Referring Unavailable MIKEY HUTCHINSON Attending Unavailable ROBIN, MAGDA Primary Care Unavailable ANA CASTILLO Attending Unavailable ROBIN, MAGDA Primary Care Unavailable BRIDLE, JEREMY R Referring Unavailable STACY LU Attending Unavailable ROBIN, MAGDA Primary Care Unavailable MIKEY HUTCHINSON Attending Unavailable ROBIN, MAGDA Primary Care Unavailable MARIA T, MIGUELANGEL Attending Unavailable ROBIN, MAGDA Primary Care Unavailable ANA CASTILLO Attending Unavailable ROBIN, MAGDA Primary Care Unavailable MIKEY HUTCHINSON Referring Unavailable MIKEY HUTCHINSON Attending Unavailable ROBIN, MAGDA Primary Care Unavailable BRIDLE, JEREMY R Referring Unavailable BRIDLE, JEREMY R Attending Unavailable ROBIN, MAGDA Primary Care Unavailable BRIDLE, JEREMY R Referring Unavailable BRIDLE, JEREMY R Attending Unavailable ROBIN, MAGDA Primary Care Unavailable MIKEY HUTCHINSON Referring Unavailable MIKEY HUTCHINSON Attending Unavailable ROBIN, MAGDA Primary Care Unavailable MARIA T, MIGUELANGEL Attending Unavailable ROBIN, MAGDA Primary Care Unavailable CIARAN FRITZ Attending Unavailable ROBIN, MAGDA Primary Care Unavailable MARIA T, MIGUELANGEL Attending Unavailable ROBIN, MAGDA Primary Care Unavailable CIARAN FRITZ Attending Unavailable ROBIN, MAGDA Primary Care Unavailable ANA CASTILLO Attending Unavailable ROBIN, MAGDA Primary Care Unavailable BRIDLE, JEREMY R Attending Unavailable ROBIN, MAGDA Primary Care Unavailable CIARAN FRITZ Attending Unavailable CIARAN FRITZ Admitting Unavailable SMITH, DEBRA Primary Care Unavailable SMITH, DEBRA Primary Care Unavailable SMITH, DEBRA Primary Care Unavailable SMITH, DEBRA Primary Care Unavailable Allergies Allergy Classification Reported Allergen(s) Allergy Type Date of Onset Reaction(s) Facility (20 sources) Penicillins; Translations: [PENICILLINS] Propensity to adverse reactions to drug (disorder) 9 [facility] Repository (1 source) cefdinir; Translations: [Omnicef] [facility] FLUoxetine; Translations: [PROzac] [facility]) penicillin; Translations: [penicillin] [facility] ([facility] sources) cefdinir; Translations: [CEFDINIR] Drug Allergy 5 Other: See Comments, Other, Unknown [facility] Repository (4 sources) FLUoxetine; Translations: [FLUOXETINE HCL] Drug Allergy 4 Other: See Comments [facility] Repository (4 sources) Seasonal allergy; Translations: [SEASONAL ALLERGIES] Propensity to adverse reactions (disorder) 2 Other: See Comments [facility] Repository (16 sources) Penicillin G Drug Allergy 3 [facility] (7 sources) liraglutide; Translations: [LIRAGLUTIDE] Drug Allergy 3 Other [facility] (3 sources) FLUoxetine; Translations: [FLUOXETINE] Drug Allergy 1 Other (See Comments), Unknown [facility] Repository (1 source) liraglutide Drug Allergy 3 Other (See Comments) [facility] Medications Current Medications Medication Drug Class(es) Dates Sig (Normalized) Sig (Original) acetaminophen 325 mg / oxyCODONE hydrochloride 5 mg oral tablet (2 sources) Opioid Agonist Start: 05-31-2023 End: 06-03-2023 take 1 tablet by mouth every six hours as needed for pain Percocet 5 mg-325 mg oral tablet Dose = 1 tab(s), Oral, q6h, PRN for pain, X 3 day(s), # 12 tab(s), 0 Refill(s), Migraine variant with headache, 81.8 Start Date: 05/31/23 Stop Date: 06/03/23 Status: Ordered Completed/Discontinued Medications Medication Drug Class(es) Dates Sig (Normalized) Sig (Original) + Nebulizer Supplies (2 sources) Start: 01-29-2017 + Nebulizer Supplies Nebulizer, Mask, & O2 Tubing. Use as directed. 1 Each 0 01/29/2017 Active Problems Active Problems Problem Classification Problem Date Documented Date Episodic/Chronic Anxiety disorders (20 sources) Anxiety; Translations: [Posttraumatic stress disorder] Onset: 02-16-2022 08-10-2019 Chronic Asthma (20 sources) Asthma; Translations: [Moderate persistent asthma] Onset: 10-07-2013 08-10-2019 Chronic Attention-deficit, conduct, and disruptive behavior disorders (15 sources) Attention deficit hyperactivity disorder, 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 Attention-deficit, conduct, and disruptive behavior disorders (2 sources) Problem behavior; Translations: [Behavioral disorder] Onset: 09-02-2014 09-02-2014 Chronic Cardiac dysrhythmias (20 sources) Anna rhythm disorder; 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] Onset: 08-14-2023 10-11-2020 Chronic Conditions associated with dizziness or vertigo (17 sources) Dizziness; Translations: [Dizziness and giddiness] Onset: 10-09-2013 10-11-2020 Episodic Diabetes mellitus without complication (4 sources) Type 2 diabetes mellitus 01-10-2022 Chronic Epilepsy; convulsions (2 sources) Seizure disorder; Translations: [Epilepsy, unspecified, not intractable, without status epilepticus] Onset: 05-10-2012 11-27-2021 Chronic Esophageal disorders (20 sources) Gastroesophageal reflux disease without esophagitis; Translations: [Gastro-esophageal reflux disease without esophagitis] Onset: 05-01-2023 Chronic Headache; including migraine (16 sources) Migraine; Translations: [Other migraine, not intractable, without status migrainosus] Onset: 05-31-2023 04-11-2021 Chronic Headache; including migraine (3 sources) Headache; Translations: [Headache] Onset: 10-09-2013 11-04-2018 Episodic Intestinal infection (2 sources) Infection caused by Helicobacter pylori; Translations: [Other specified bacterial intestinal infections] 08-21-2023 Episodic Intracranial injury (19 sources) Traumatic brain injury; Translations: [Traumatic brain injury] Onset: 05-10-2012 08-10-2019 Episodic Miscellaneous mental health disorders (2 sources) Other specified eating disorder; Translations: [Other specified eating disorder] Onset: 08-28-2023 Chronic Mood disorders (20 sources) Depressive disorder; Translations: [Mood disorder] Onset: 10-10-2022 08-10-2019 Chronic Mood disorders (2 sources) Mood disorders; Translations: [Depression, unspecified] Onset: 12-20-2022 Nausea and vomiting (15 sources) Nausea 10-07-2020 Episodic Nonspecific chest pain (15 sources) Tight chest 10-11-2020 Episodic Nutritional deficiencies (20 sources) Decreased vitamin D; Translations: [Vitamin D deficiency] Onset: 11-03-2013 08-10-2019 Chronic Nutritional deficiencies (1 source) Decreased vitamin B12 level; Translations: [Deficiency of other specified B group vitamins] 06-03-2023 Episodic Other aftercare (2 sources) Other long-term (current) drug therapy; Translations: [Other intermediate school teacher (current) drug therapy] Onset: 09-17-2023 Episodic Other aftercare (1 source) H/O: high risk medication; Translations: [Other long-term (current) drug therapy] 09-20-2023 Episodic Other complications of (8 sources) Hyperemesis gravidarum 01-10-2022 Episodic Other ear and sense organ disorders (15 sources) Impacted cerumen 10-07-2020 Episodic Other endocrine disorders (2 sources) Polycystic ovary syndrome 09-05-2022 Chronic Other nervous system disorders (15 sources) H/O: migraine 08-10-2019 Episodic Other nervous system disorders (1 source) Postoperative pain ; Translations: [Other acute postprocedural pain] Onset: 01-29-2022 Episodic Other non-traumatic joint disorders (1 source) Pain in left knee; Translations: [Pain in joint, lower leg] 07-20-2023 Episodic Other nutritional; endocrine; and metabolic disorders (14 sources) Body mass index 40+ - severely obese; Translations: [Morbid (severe) obesity due to excess calories] Chronic Other nutritional; endocrine; and metabolic disorders (20 sources) Morbid obesity; Translations: [Morbid (severe) obesity due to excess calories] Onset: 04-25-2023 04-25-2023 Chronic Other nutritional; endocrine; and metabolic disorders (2 sources) Obesity caused by energy imbalance; Translations: [Morbid (severe) obesity due to excess calories] Onset: 08-14-2023 05-29-2023 Chronic Other nutritional; endocrine; and metabolic disorders (1 source) Morbid (severe) obesity due to excess calories; Translations: [Morbid (severe) obesity due to excess calories (HCC)] Onset: 08-14-2023 Chronic Other nutritional; endocrine; and metabolic disorders (2 sources) Body mass index (BMI) 40.0-44.9, adult; Translations: [Body mass index (BMI) 40.0-44.9, adult (HCC)] Onset: 08-14-2023 Chronic Other nutritional; endocrine; and metabolic disorders (2 sources) H/O: endocrine disorder 09-04-2022 Episodic Other nutritional; endocrine; and metabolic disorders (2 sources) Overweight 09-04-2022 Episodic Other nutritional; endocrine; and metabolic disorders (2 sources) Weight gain 09-04-2022 Episodic Other and delivery including normal (13 sources) Onset: 05-01-2021 06-06-2021 Episodic Past or Other Problems Problem Classification Problem Date Documented Da te Episodic/Chronic Administrative/social admission (2 sources) Patient encounter status; Translations: [Dietary counseling and surveillance] Onset: 11-12-2013 11-12-2013 Episodic Allergic reactions (2 sources) Allergic disposition; Translations: [Allergy status to unspecified drugs, medicaments and biological substances status] Onset: 03-06-2012 03-06-2012 Episodic Diabetes mellitus without complication (20 sources) Prediabetes; Translations: [Prediabetes] Onset: 05-01-2023 Episodic Genitourinary symptoms and ill-defined conditions (20 sources) History of urinary tract infection; Translations: [Personal history of urinary (tract) infections] Onset: 05-01-2023 05-01-2023 Episodic Mood disorders (2 sources) Disturbance in mood; Translations: [Emotional lability] Onset: 12-19-2014 12-19-2014 Episodic Other complications of (20 sources) Bipolar II disorder, most recent episode major depressive with onset; Translations: [Other mental disorders complicating the puerperium] Onset: 02-15-2022 Episodic Other lower respiratory disease (3 sources) Snoring; Translations: [Snoring] Onset: 06-13-2023 06-13-2023 Episodic Other lower respiratory disease (5 sources) Dyspnea; Translations: [Shortness of breath] Onset: 08-14-2023 08-14-2023 Episodic Other lower respiratory disease (1 source) Shortness of breath; Translations: [Shortness of breath] Onset: 08-14-2023 Episodic Other lower respiratory disease (1 source) Snoring; Translations: [Snoring] Onset: 06-13-2023 Episodic Other nervous system disorders (2 sources) Tremor; Translations: [Tremor, unspecified] Onset: 10-09-2013 10-09-2013 Episodic Other non-traumatic joint disorders (2 sources) Ankle pain; Translations: [Pain in unspecified ankle and joints of unspecified foot] Onset: 03-04-2012 03-04-2012 Episodic Other nutritional; endocrine; and metabolic disorders (2 sources) General finding of height; Translations: [Short stature (child)] Onset: 02-14-2014 02-14-2014 Episodic Other nutritional; endocrine; and metabolic disorders (2 sources) Body mass index 25-29 - overweight; Translations: [Overweight] Onset: 07-01-2014 07-01-2014 Episodic Other nutritional; endocrine; and metabolic disorders (2 sources) Weight loss; Translations: [Weight Loss] Onset: 07-15-2023 Episodic Residual codes; unclassified (2 sources) Amnesia; Translations: [Other amnesia] Onset: 08-13-2017 08-13-2017 Episodic Residual codes; unclassified (2 sources) Sleep disorder, unspecified; Translations: [Sleep disorder, unspecified] Onset: 08-29-2023 Episodic Sprains and strains (2 sources) Sprain of ankle; Translations: [Sprain of unspecified ligament of unspecified ankle, initial encounter] Onset: 03-04-2012 03-04-2012 Episodic Superficial injury; contusion (1 source) Contusion of right front wall of thorax, initial encounter; Translations: [Contusion of right front wall of thorax, initial encounter] Onset: 06-11-2017 Episodic Urinary tract infections (3 sources) Acute urinary tract infection; Translations: [Urinary tract infection, site not specified] Onset: 12-20-2022 Episodic Results Test Name Value Interpretation Reference Range Facil ity Vital Signs Date Time Vital Sign Value Performing Clinician Facility 11-13-2023 20:28-0500 Body temperature 98.24 [degF] ELOY LUCERO MD [facility] 11-13-2023 20:28-0500 Diastolic Blood Pressure Non-Invasive 63 mm[Hg] ELOY LUCERO MD [facility] 11-13-2023 20:28-0500 Heart rate 96 /min ELOY LUCERO MD [facility] 11-13-2023 20:28-0500 Respiratory rate 18 /min ELOY LUCERO MD [facility] 11-13-2023 20:28-0500 Systolic Blood Pressure Non-Invasive 127 mm[Hg] ELOY LUCERO MD [facility] 11-13-2023 19:20-0500 Reason For Taking VItal Signs ELOY LUCERO MD [facility] 11-13-2023 17:21-0500 Blood Pressure Location ELOY LUCERO MD [facility] 11-13-2023 17:21-0500 Blood Pressure Method ELOY LUCERO MD [facility] 11-13-2023 17:21-0500 Body temperature 98.78 [degF] ELOY LUCERO MD [facility] 11-13-2023 17:21-0500 Body weight 88.2 kg ELOY LUCERO MD [facility] 11-13-2023 17:21-0500 Diastolic Blood Pressure Non-Invasive 55 mm[Hg] ELOY LUCERO MD [facility] 11-13-2023 17:21-0500 Heart rate 83 /min EOLY LUCERO MD [facility] 11-13-2023 17:21-0500 Respiratory rate 18 /min ELOY LUCERO MD [facility] 11-13-2023 17:21-0500 Systolic Blood Pressure Non-Invasive 123 mm[Hg] ELOY LUCERO MD [facility] 11-06-2023 10:12-0500 Body height 142.2 cm Mikey Hutchinson PA-C Work Phone: [facility] [place] 11-06-2023 10:12-0500 Body mass index (BMI) [Ratio] 43.27 kg/m2 Mikey Hutchinson PA-C Work Phone: [facility] [place] 11-06-2023 10:12-0500 Body weight 87.54 kg Mikeyalva Hutchinson PA-C Work Phone: [facility] [place] 09-26-2023 08:01-0400 Body height 142.2 cm Miguelangel Green MD Work Phone: [facility] 09-26-2023 08:01-0400 Body mass index (BMI) [Ratio] 43.36 kg/m2 Miguelangel Green MD Work Phone: [facility] [place] 09-26-2023 08:01-0400 Body weight 87.73 kg Miguelangel Green MD Work Phone: [facility] 09-26-2023 08:01-0400 Diastolic blood pressure 84 mm[Hg] Miguelangel Green MD Work Phone: [facility] 09-26-2023 08:01-0400 Heart rate 61 /min Miguelangel Green MD Work Phone: [facility] 09-26-2023 08:01-0400 Systolic blood pressure 126 mm[Hg] Miguelangel Green MD Work Phone: [facility] 09-20-2023 09:07-0400 Body temperature 97.59 [degF] Johana Resendez MD Work Phone: [facility] 09-20-2023 09:07-0400 Diastolic blood pressure 70 mm[Hg] Johana Resendez MD Work Phone: [facility] 09-20-2023 09:07-0400 Heart rate 83 /min Johana Resendez MD Work Phone: [facility] 09-20-2023 09:07-0400 SaO2% (BldA) [Mass fraction] 97 % Johana Resendez MD Work Phone: [facility] 09-20-2023 09:07-0400 Systolic blood pressure 103 mm[Hg] Johana Resendez MD Work Phone: [facility] 09-20-2023 08:30-0400 Respiratory rate 16 /min Johana Resendez MD Work Phone: [facility] 09-17-2023 16:47-0400 Body mass index (BMI) [Ratio] 43 kg/m2 Johana Resendez MD Work Phone: [facility] 09-17-2023 16:47-0400 Body weight 87 kg Johana Resendez MD Work Phone: [facility] 09-17-2023 16:13-0400 Body height 142.2 cm Johana Resendez MD Work Phone: [facility] 08-29-2023 13:47-0400 Body height 147.3 cm Stacy Alaniz CNP Work Phone: [facility] 08-29-2023 13:47-0400 Body mass index (BMI) [Ratio] 40.64 kg/m2 Stacy Alaniz CNP Work Phone: [facility] 08-29-2023 13:47-0400 Body weight 88.18 kg Stacy Alaniz CNP Work Phone: [facility] 08-29-2023 13:47-0400 Diastolic blood pressure 84 mm[Hg] Stacy Alaniz CNP Work Phone: [facility] 08-29-2023 13:47-0400 Heart rate 81 /min Stacy Alaniz CNP Work Phone: [facility] 08-29-2023 13:47-0400 Respiratory rate 20 /min Stacy Alaniz CNP Work Phone: [facility] 08-29-2023 13:47-4130 SaO2% (BldA) [Mass fraction] 99 % Stacy Lu STEAM OVEN OPERATOR - SENIOR JAVA WEB APPLICATION DEVELOPER Work Phone: [facility] Encounters Encounter Date Encounter Type Care Provider Facility Start: 12-17-2023 End: 12-17-2023 ambulatory DEBRA SMITH Facility:[facility] Start: 12-04-2023 End: 12-04-2023 ambulatory [facility] Start: 12-04-2023 End: 12-04-2023 Encounter for preprocedural cardiovascular examination MIEKY HUTCHINSON [facility] Start: 11-13-2023 End: 11-13-2023 Emergency department patient visit ELOY LUCERO MD Facility: Start: 11-13-2023 End: 11-13-2023 Emergency department patient visit ELOY LUCERO MD [facility] Start: 11-06-2023 End: 11-07-2023 ambulatory [facility] Start: 11-06-2023 End: 11-06-2023 Subsequent hospital visit by physician Mikey Hutchinson PA-C Work Phone: [facility] Non-Invasive Cardiology Procedures Date Procedure Procedure Detail Performing Clinician Start: 11-06-2023 Echo tthrc r-t 2d w/wom-mode compl spec&colr d Mikey Hutchinson PA-C Work Phone: Start: 09-21-2023 Electrocardiogram Johana Resendez MD Work Phone: Start: 09-19-2023 Drug screen quantitative lithium Johana Resendez MD Work Phone: Start: 09-18-2023 End: 09-18-2023 Comprehensive metabolic panel Johana Resendez MD Work Phone: Start: 09-18-2023 Lipid panel Johana Resendez MD Work Phone: Start: 08-14-2023 Ecg routine ecg w/least 12 lds w/i&r Ananda Kinsey MD Work Phone: Start: 06-26-2023 Radiologic exam upr gi trc single contrast study Jeremykathie Hallman STEAM OVEN OPERATOR - SENIOR JAVA WEB APPLICATION DEVELOPER Work Phone: Start: 06-26-2023 Us abdominal real time w/image documentation Jeremykathie Hallman STEAM OVEN OPERATOR - SENIOR JAVA WEB APPLICATION DEVELOPER Work Phone: Start: 05-29-2023 Comprehensive metabolic panel Jeremy R Viji STEAM OVEN OPERATOR - SENIOR JAVA WEB APPLICATION DEVELOPER Work Phone: Start: 05-29-2023 Lipid panel Jeremy R Viji STEAM OVEN OPERATOR - SENIOR JAVA WEB APPLICATION DEVELOPER Work Phone: Start: 05-29-2023 Lipid 1996 panel - Serum or Plasma Romina Lynch RD Work Phone: Start: 05-29-2023 Thyrotropin [Units/volume] in Serum or Plasma Romina Lynch RD Work Phone: Start: 03-05-2023 STREP A MOLECULAR (POC) Bernie LEES Work Phone: Start: 12-24-2022 Drug screen quantitative lithium Belgica Strange MD Work Phone: Start: 12-22-2022 Culture bacterial quanttative colony count urine Therese Buenrostro PA-C Work Phone: Start: 12-20-2022 Blood ethanol measurement Mohit Blakely MD Work Phone: Start: 12-20-2022 Gonadotropin chorionic qualitative Mohit Blakely MD Work Phone: Start: 12-20-2022 Lipid panel Belgica Strange MD Work Phone: Start: 12-20-2022 SARS-CoV-2 (COVID-19) RNA [Presence] in Respiratory specimen by HUGH with probe detection Mohit Blakely MD Work Phone: Start: 12-20-2022 Urnls dip stick/tablet reagent auto microscopy Mohit Blakely MD Work Phone: Start: 12-02-2007 Appendectomy RICHARD SU delivery - delivered (finding) ALISSA SINGH STEAM OVEN OPERATOR-SENIOR JAVA WEB APPLICATION DEVELOPER H/O: section S/P matt an section( Confirmed ) SUMMER RSOA MD Operation on adenoids RICHARD JOSE STEAM OVEN OPERATOR-CNM Structure of wisdom tooth (body structure) RICHARD JOSE STEAM OVEN OPERATOR-CNM Tympanostomy RICHARD JOSE STEAM OVEN OPERATOR-CNM Tympanotomy SUMMER ROSA MD Plan of Treatment Date Care Activity Detail Author Start: 2061 RSV Immunization aged 60 or older (1 - 1-dose 60+ series) RSV Immunization aged 60 or older (1 - 1-dose 60+ series) [facility] Start: 2051 Zoster Vaccines (1 of 2) Zoster Vaccines (1 of 2) [facility] Start: 11-23-2031 DTaP/Tdap/Td Vaccines (8 - Td or Tdap) DTaP/Tdap/Td Vaccines (8 - Td or Tdap) [facility] Start: 11-23-2031 Tetanus vaccination Tetanus: Every 10yrs [facility] Start: 05-29-2028 Lipid panel Lipid Panel [facility] Start: 05-29-2024 Hemoglobin A1c measurement Diabetes: Hemoglobin A1C [facility] Start: 05-29-2024 Lipid panel Lipid Panel [facility] Start: 05-29-2024 Thyroid stimulating hormone measurement TSH Level [facility] Start: 11-28-2023 Hemoglobin A1c measurement A1C [facility] Start: 11-11-2023 End: 11-11-2023 Patient encounter procedure 11/11/2023 1:00 PM EST Office Visit [facility] [address] [place] [id number] Mikey Hutchinson PAEddie [address] [place] [address] [facility] Start: 11-06-2023 End: 11-06-2023 Patient encounter procedure 11/06/2023 10:00 AM EST Appointment [facility] Non-Invasive Cardiology [address] [place] [address] [facility] Non-Invasive Cardiology Start: 11-04-2023 End: 11-04-2023 Clinical Support 11/04/2023 8:30 PM EST Clinical Support [facility] Sleep Lab [address] [place] [address] Stacy Lu STEAM OVEN OPERATOR - SENIOR JAVA WEB APPLICATION DEVELOPER [address] [place] [address] [facility] Sleep Lab Start: 10-02-2023 End: 08-21-2024 Helicobacter pylori Ag [Presence] in Stool by Immunoassay H. pylori Stool Antigen Microbiology Routine H. pylori infection Expected: 10/02/2023, Expires: 08/21/2024 [facility] Work Phone: Immunizations Immunization Date Immunization Notes Care Provider Fa [facility] 12-21-2022 influenza, injectabl e, quadrivalent, preservative free Mohit Blakely MD Work Phone: [facility] 12-21-2022 influenza virus vaccine, unspecified formulation Romina Lynch RD Work Phone: [facility] 11-23-2021 tetanus toxoid, redu aminta diphtheria toxoid, and acellular pertussis vaccine, adsorbed; Translations: [Boostrix (Tdap)] RICHARD JOSE APRN-DORIAN [facility] 08-15-2021 influenza virus vaccine, unspecified formulation [facility] 01-20-2021 SARS-CoV-2 (COVID-19 ) [id number] vaccine [facility]ARD [facility] Payers Date Payer Category Payer Medicaid [id number] 2021 Medicaid [id number] 2021 Medicaid [id number] 2020 Unknown [id number] 2018 Unknown 2001 Unknown [id number] 2.16. [id number] 2001 Unknown [id number] 2.16. [id number] 2001 Unknown [id number] 2.16. [id number] 2001 Unknown [id number] 2.16. [id number] 2001 Unknown [id number] 2.16. 840.1.006289.3.579.2.903 2001 Unknown [id number] 2.16. 840.1.539121.3.579.2.903 2001 Unknown [id number] 2.16. 840.1.695577.3.579.2.903 2001 Unknown [id number] 2.16. 840.1.242889.3.579.2.903 2001 Unknown [id number] 2.16. 840.1.969160.3.579.2.903 2001 Unknown [id number] 2.16. [id number] 2001 Unknown [id number] 2.16. 840.1.457059.3.579.2.903 2001 Unknown [id number] 2.16. [id number] 2001 Unknown [id number] 2.16. 840.1.699376.3.579.2.903 2001 Unknown [id number] 2.16. 840.1.114152.3.579.2.903 2001 Unknown [id number] 2.16.8 [id number] 2001 Unknown [id number] 2.16.8 [id number] Medicaid [id number] Social History Date Type Detail Facility Start: 08-07-2019 End: 05-01-2023 Never smoked tobacco (finding) [facility] Procedure Code Equipment Code Equipment Origin al Text Equipment Identifier Dates Blood Glucose Te st Strips Start: 11-01-2021 Lancets Start: 11-01-[address]ps Start: 11-01-2021 Lancets Start: 11-01-[address]ps Start: 11-01-2021 Lancets Start: 11-01-[address] Strips Start: 11-01-2021 Lancets Start: 11-01-[address]ps Start: 11-01-2021 Lancets Start: 11-01-[address] Strips Start: 11-01-2021 Lancets Start: 11-01-2021 Start: 12-23-2014 Functional Status Date Assessment Result Facility 11-13-2023 Functional Status Independent [facility] 11-13-2023 Functional Status ID band on, Allergy Band on, Call device within reach, Bed in low position, Wheels locked, Upper/Half-Length side-rails up, Safety level maintained [facility] 05-31-2023 Functional Status Standard Safet y ID band on, Allergy Band on, Call device within reach, Bed in low position, Wheels locked, Upper/Half-Length side-rails up, personal items within reach [facility] Mental Status Date Assessment Result Facility 11-13-2023 Mental Status Orientation Oriented x 4 [facility] 11-13-2023 Mental Status [facility] 06-30-2023 Mental Status Orientation Oriented x 4 [facility] Clinical Notes 12-19-2014 to 12-17-2023 Telephone Encounter - Jeremy Astorga TishajoséKAMLESH - VITOR - 10/10/2023 9:20 AM ESTTelephone Encounter - Jeremy HallmanKAMLESH - VITOR - 10/10/2023 9:20 AM Moon AnuelETHAN rausch - 09/26/2023 8:15 AM EDTLaboratory Note Date & Type Note Facility 12-17-2023 Note HNO ID: [id number] Author: DAVID CABRAL APRN.VITOR Service: ? Author Type: Nurse Practitioner Type: Progress Notes Filed: 12/17/2023 13:15 Note Text: Subjective HPI Nontoxic-appearing female presents urgent care accompanied by significant other. Chief complaint headache dizziness nausea. Duration of headache upon arising. Dizziness started about half hour to 45 minutes ago. Has been progressively worsening. The patient states feels like she is spinning in the room. She does have some uneasiness with her gait. History of migraines this is not similar. Has used OTC medications this did not help. Denies any fever body aches chills productive cough chest pain shortness of breath pleuritic pain hemoptysis vomiting abdominal pain change in bowel or bladder habits. Past medical history prescription medication use and allergies reviewed. .Patient presents with: Nausea: headache x 6:30am, dizziness x 1/2 hour PAST MEDICAL HISTORY Diagnosis Date Asthma Concussion 10/12 seizure like activity, [facility] out[facility] Left ankle sprain 05/12 Menarche -2011 Age 12 Multiple allergies Allergy injections Pineal hyperplasia, insulin-resistant diabetes mellitus and somatic abnormalities PMH - PAST MEDICAL HISTORY OF was addicted to cocaine at . 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 PAST SURGICAL HISTORY Procedure Laterality Date ADENOIDECTOMY HX APPENDECTOMY 10/09 MYRINGOTOMY HX PAST SURGICAL HISTORY OF tubes in ears x 4 PAST SURGICAL HISTORY OF adnoidectomy ALLERGIES Omnicef [Cefdinir], Penicillins, Prozac [Fluoxetine Hcl], and Seasonal Allergies MEDICATIONS topiramate (TOPAMAX) 50 mg tablet lithium carbonate (ESKALITH) 300 mg capsule Take 300 mg by mouth three times daily with meals. CALCIUM CARBONATE/VITAMIN D3 (VITAMIN D-3 ORAL) Take by mouth 3 times a WEEK. ibuprofen (MOTRIN) 600 mg tablet Take 1 tablet by mouth every 6 hours as needed for Pain. albuterol (PROVENTIL) 2.5 mg /3 mL (0.083 %) nebulizer solution Use 3 mL via nebulizer every 4 hours as needed. OVER 5-15 MINUTES. FOR WHEEZING AND SHORTNESS OF BREATH. albuterol HFA (PROAIR HFA) 90 mcg/actuation inhaler Inhale 2 Puffs as instructed every 4 hours as needed. + Nebulizer Supplies Nebulizer, Mask, AND O2 Tubing. Use as directed. blood sugar diagnostic (FREESTYLE LITE STRIPS) test strip Check BG atleast 2 times daily and also when does not feel well. Lancets (FREESTYLE LANCETS) lancets Check BG 3-4 times daily lurasidone (LATUDA) 80 mg tablet propranolol (INDERAL) 20 mg tablet lamoTRIgine (LAMICTAL) 100 mg tablet Take 100 mg by mouth once daily. 1/2 tablet daily ferrous sulfate 325 mg (65 mg iron) EC tablet Take 325 mg by mouth. (Patient not taking: Reported on 07/20/2023) VICTOZA 2-SARAH 0.6 mg/0.1 mL (18 mg/3 mL) Inject 0.6 mg under the skin daily. (Patient not taking: Reported on 12/17/2023) FLUoxetine (PROZAC) 10 mg capsule (Patient not taking: Reported on 12/17/2023) LORazepam (ATIVAN) 1 mg tablet (Patient not taking: Reported on 12/17/2023) metoclopramide HCl (REGLAN) 10 mg tablet Take 10 mg by mouth. (Patient not taking: Reported on 12/17/2023) ondansetron orally disintegrating (ZOFRAN ODT) 4 mg disintegrating tablet Take 4 mg by mouth. (Patient not taking: Reported on 12/17/2023) meclizine (ANTIVERT) 25 mg tab (Patient not taking: Reported on 12/17/2023) risperiDONE (RISPERDAL) 1 mg tablet (Patient not taking: Reported on 12/17/2023) escitalopram oxalate (LEXAPRO) 10 mg tablet Take 1 tablet by mouth once daily. (Patient not taking: Reported on 03/05/2023) azithromycin (ZITHROMAX) 250 mg tablet (Patient not taking: Reported on 03/05/2023) mometasone-formoterol (DULERA) 100-5 mcg/actuation inhaler Inhale 2 Puffs as instructed twice daily. (Patient not taking: Reported on 01/15/2020 ) PROAIR RESPICLICK 90 mcg/actuation aepb Inhale 2 Puffs as instructed every 4 hours as needed. oral electrolytes tab (THERMOTABS) 287-180-15 mg tab Take 2 thermotabs bid po (Patient not taking: Reported on 12/30/2018 ) metFORMIN (GLUCOPHAGE) 500 mg tablet Take 1 tablet by mouth twice daily with meals. (Patient not taking: Reported on 01/15/2020 ) oxybutynin XL (DITROPAN XL) 5 mg 24 hr tablet Take 1 tablet by mouth once daily. (Patient not taking: Reported on 11/04/2018 ) predniSONE (DELTASONE) 20 mg tablet Wzzudumpheqwspu-Kcsdehlrx-EJ (BROMFED DM) 2-30-10 mg/5 mL syrup Take 5 mL by mouth four times daily as needed. (Patient not taking: Reported on 11/04/2018 ) meloxicam (MOBIC) 15 mg tablet Take 1 tablet by mouth once daily. (Patient not taking: Reported on 11/04/2018 ) fluticasone (FLONASE) 50 mcg/actuation nasal spray Use 2 Sprays in each nostril once daily. (Patient not taking: Reported on 12/30/2018 ) triamcinolone (KENALOG) 0.1 % lotion Apply 1 application to affected area twice daily. (Patient not taking: Reported on 11/04/2018 ) nebulizer access (more content not included)... [facility] 11-13-2023 Hospital Discharge instructions Patient Education 11/13/2023 20:04:56 Headache, Migraine, Classic Migraine Headache This often severe type of headache is different from other types of headaches in that symptoms other than pain occur with the headache. Nausea and vomiting, lightheadedness, sensitivity to light (photophobia), and other visual disturbances are common migraine symptoms. The pain may last from a few hours to several days. It is not clear why migraines occur but certain factors called triggers can raise the risk of having a migraine attack. A migraine may be triggered by emotional stress or depression, or by hormone changes during the menstrual cycle. Other triggers include control pills, overuse of migraine medicines, alcohol or caffeine, foods with tyramine (such as aged cheese and wine), eyestrain, weather changes, missed meals, or too little or too much sleep. Home care Follow these tips when taking care of yourself at home: Don t drive yourself home if you were given pain medicine for your headache or are having visual symptoms. Instead, have someone else drive you home. Try to sleep when you get home. You should feel much better when you wake up. Cold can help ease migraine symptoms. Put an ice pack on your forehead or at the base of your skull. Put heat on the back of your neck to help ease any neck spasm. Drink only clear liquids or eat a light diet until your symptoms get better. This will help you avoid nausea and vomiting. How to prevent migraines Pay attention to what seems to trigger your headache. Try to avoid the triggers when you can. If you have frequent headaches, consider keeping a headache diary. In it, write down what you were doing, feeling, or eating in the hours before each headache. Show this to your healthcare provider to help find the cause of your headaches. If stress seems to be a trigger for your headaches, figure out what is causing stress in your life. Learn new ways to handle your stress. Ideas include regular exercise, biofeedback, self-hypnosis, yoga, and meditation. Talk with your healthcare provider to find out more information about managing stress. Many books and digital media are also available on this subject. Tyramine is a substance found in many foods. It can trigger a migraine in some people. These foods contain tyramine: Chocolate Yogurt All cheeses, but especially aged cheeses Smoked or pickled fish and meat, including narayanan, caviar, bologna, pepperoni, and salami Liver Avocados Bananas Figs Raisins Red wine Try staying away from these foods for 1 to 2 months to see if you have fewer headaches. How to treat future headaches Take time out at the first sign of a headache, if possible. Find a quiet, dark, comfortable place to sit or lie down. Let yourself relax or sleep. Put an ice pack on your forehead or on the area of greatest pain. A heating pad and massage may help if you are having a muscle spasm and tightness in your neck. If you have been prescribed a medicine to stop a migraine headache, use this at the first warning sign of the headache for best results. First signs may be an aura or pain. If you need to take medicine often for your migraine, talk with your healthcare provider about other ways to prevent your headaches. Follow-up care Follow up with your healthcare provider, or as advised. Talk with your provider if you have frequent headaches. He or she can figure out a treatment plan. Ask if you can have medicine to take at home the next time you get a bad headache. This may keep you from having to visit the emergency department in the future. You may need to see a headache specialist (neurologist) if you continue to have headaches. When to seek medical advice Call your healthcare provider right away if any of these occur: Your head pain gets worse, or doesn t get better within 24 hours You can t keep liquids down (repeated vomiting) Pain in your sinuses, ears, or throat Fever of 100.4 F (38 C) or higher, or as directed by your healthcare provider Stiff neck Extreme drowsiness, confusion, or fainting Dizziness, or dizziness with spinning sensation (vertigo) Weakness in an arm or leg, or on one side of your face Difficulty talking or seeing [id number] [employer]. [address] [place] [address]. All rights reserved. This information is not intended as a substitute for professional medical care. Always follow your healthcare professional's instructions. Follow Up Care 11/13/2023 17:16:26 With:Follow up with primary care provider Address:Unknown When:2-4 days [facility] 11-13-2023 Note Discharge Instructions Thank you for allowing [facility] to assist you with your healthcare needs. The following is important discharge information regarding your hospital visit. Diagnosis from Today's Visit Headache Headache What to Do Next Instructions from Your Care Team No qualifying data available. Post Acute Orders No qualifying data available. You Need to Schedule the Following Appointments Follow Up with Follow up with primary care provider When Within 2-4 days Allergies penicillin Medications Please ask your primary doctor or pharmacist before taking any other medication not listed, including over the counter drugs, herbal medications, vitamins and or supplements as they may interact with your home medications. What How Much When Instructions Last Dose Unchanged albuterol (ProAir RespiClick 90 mcg/ inh inhalation powder) 2 puff(s) by inhalation Every 4 hours as needed for as needed Unchanged ARIPiprazole (ARIPiprazole 10 mg oral tablet) 1 tab(s) by mouth Once a day Duration: 30 Days take 1 tablet by mouth at bedtime Unchanged FLUoxetine (PROzac 10 mg oral capsule) 1 cap by mouth Once a day Duration: 30 Days Unchanged lamoTRIgine (lamoTRIgine 150 mg oral tablet) 1 tab(s) by mouth Once a day Duration: 30 Days TAKE 1 TABLET BY MOUTH EVERY DAY Please take this list to your next doctor s visit. Bring all medications you take, including over the counter medications, herbals and other supplements with you to your doctor s visit. Patients and families are reminded to discard old lists and to update any records with all medication providers or retail pharmacies. Education Materials Migraine Headache This often severe type of headache is different from other types of headaches in that symptoms other than pain occur with the headache. Nausea and vomiting, lightheadedness, sensitivity to light (photophobia), and other visual disturbances are common migraine symptoms. The pain may last from a few hours to several days. It is not clear why migraines occur but certain factors called triggers can raise the risk of having a migraine attack. A migraine may be triggered by emotional stress or depression, or by hormone changes during the menstrual cycle. Other triggers include control pills, overuse of migraine medicines, alcohol or caffeine, foods with tyramine (such as aged cheese and wine), eyestrain, weather changes, missed meals, or too little or too much sleep. Home care Follow these tips when taking care of yourself at home: Don t drive yourself home if you were given pain medicine for your headache or are having visual symptoms. Instead, have someone else drive you home. Try to sleep when you get home. You should feel much better when you wake up. Cold can help ease migraine symptoms. Put an ice pack on your forehead or at the base of your skull. Put heat on the back of your neck to help ease any neck spasm. Drink only clear liquids or eat a light diet until your symptoms get better. This will help you avoid nausea and vomiting. How to prevent migraines Pay attention to what seems to trigger your headache. Try to avoid the triggers when you can. If you have frequent headaches, consider keeping a headache diary. In it, write down what you were doing, feeling, or eating in the hours before each headache. Show this to your healthcare provider to help find the cause of your headaches. If stress seems to be a trigger for your headaches, figure out what is causing stress in your life. Learn new ways to handle your stress. Ideas include regular exercise, biofeedback, self-hypnosis, yoga, and meditation. Talk with your healthcare provider to find out more information about managing stress. Many books and digital media are also available on this subject. Tyramine is a substance found in many foods. It can trigger a migraine in some people. These foods contain tyramine: Chocolate Yogurt All cheeses, but especially aged cheeses Smoked or pickled fish and meat, including narayanan, caviar, bologna, pepperoni, and salami Liver Avocados Bananas Figs Raisins Red wine Try staying away from these foods for 1 to 2 months to see if you have fewer headaches. How to treat future headaches Take time out at the first sign of a headache, if possible. Find a quiet, dark, comfortable place to sit or lie down. Let yourself relax or sleep. Put an ice pack on your forehead or on the area of greatest pain. A heating pad and massage may help if you are having a muscle spasm and tightness in your neck. If you have been prescribed a medicine to stop a migraine headache, use this at the first warning sign of the headache for best results. First signs may be an aura or pain. If you need to take medicine often for your migraine, talk with your healthcare provider about other ways to prevent your headaches. Follow-up care Follow up with your healthcare provider, or as advised. Talk with your provider if you have frequent headaches. He or she can figure out a treatment plan. Ask if you can have medicine to take at home the next time you get a bad headache. This may keep you from having to visit the emergency department in the future. You may need to see a headache specialist (neurologist) if you continue to have headaches. When to seek medical advice Call your healthcare provider right away if any of these occur: Your head pain gets worse, or doesn t get better within 24 hours You can t keep liquids down (repeated vomiting) Pain in your sinuses, ears, or throat Fever of 100.4 F (38 C) or higher, or as directed by your healthcare provider Stiff neck Extreme drowsiness, confusion, or fainting Dizziness, or dizziness with spinning sensation (vertigo) Weakness in an arm or leg, or on one side of your face Difficulty talking or seeing [id number] [employer]. [address] [place] [address]. All rights reserved. This information is not intended as a substitute for professional medical care. Always follow your healthcare professional's instructions. Additional Information VACCINATE! IT SAVES LIVES! Members of the community who have not yet received the COVID-19 vaccine and would like to receive it can visit one of [facility] vaccine clinics. There are many vaccine clinic locations within the [facility]. For locations and available times, please visit [email or web address].[place]. [email or web address] It is important to note that some COVID mobile vaccine clinics are held outdoors and may be canceled in rainy or stormy conditions. To learn more about pediatric vaccinations (ages 5-11), we invite you to visit the [facility] webpage. https://www.[email or web address].org/p ages/8172-Vrlsb-Qsqrzrzasvb-Freq hrkgow-Omipp-Wxdztpreb.html To learn more about the COVID-19 vaccine, we invite you to visit the CDC website for a list of frequently asked questions. https://www.cdc.gov/coronavirus/ 2019-ncov/vaccines/faq.html [facility] Patient Portal Access Instructions: Stay connected with your healthcare team and access your personal medical information anytime with the [facility] Patient Portal. If you would like a full copy of your medical records please contact the [facility] Medical Records Department Saturday through Saturday between 8a.m. and 4:30p.m. Please follow the directions below to access the portal: 1.Access the email account you provided upon registration to the hospital.2.Look for an invitation email from [facility].3.Open the email and access the invitation link: Accept Invitation to [facility]4.Fill in the required jernigan to create your account. Sign into www.[email or web address] with your username and password that you created in the above steps to stay up to date. You can then view a summary of results, a summary of your visits, and the ability to download your summaries to your computer or send the information securely to a physician. Remember that your healthcare information is confidential, so carefully consider who you will allow to register on the [facility] Patient Portal for access to your information. You can also access the [facility] Patient Portal on the [employer]. Simply click on Health Records under Health Data and then click on the [employer] logo. HOW TO SAFELY DISPOSE OF PRESCRIPTION MEDICATIONS Please use one of the following methods to safely dispose of your unused medications. 1.Use a drug disposal kit: the drug disposal pouch allows you to safely discard your old and unused drugs. Ask your nurse to give you one when you are discharged.2.Visit a local take-back location: Many local pharmacies and police departments have programs that collect old and unwanted prescription drugs. Call your local pharmacy or go to http://ThinkUp/0U0Xq2n to find one close to you.3.Make use of household items: Use cat litter or old coffee grounds to dispose medications if other options are not available. Mix your drugs with these household products, seal them in an airtight container and throw it into the garbage. Call [facility]: [phone] to be sure your drugs can be disposed of in this way. Some medicines may require a different approach.4.Never flush your medications down the toilet. IF YOU HAVE BEEN PRESCRIBED AN OPIOIDS FOR PAIN If you have been prescribed an opioid (such as hydrocodone, oxycodone or morphine), it is critical to understand the possible side effects and risks of opioid pain medications. Even when taken as directed, opioids can have several side effects including: Tolerance, meaning you might need to take more of a medication for the same pain relief. Nausea, vomiting and/or constipation. Sleepiness, dizziness, dry mouth, confusion, depression or itching. Physical dependence, meaning you have withdrawal symptoms when a medication is stopped ? this can develop within a few days. KNOW YOUR RESPONSIBILITIES It is important to know exactly how much and how often to take the opioid pain medications you are prescribed. Never take opioids in higher amounts or more often than prescribed. Do not combine opioids with alcohol or other drugs that cause drowsiness, such as benzodiazepines, also known as benzos, including diazepam and alprazolam, muscle relaxants or sleep aids. Never sell or share prescription opioids. This is illegal. Store opioids in a secure place and out of reach of others (including children, family, friends and visitors). The last page(s) of this document has been signed and retained as a CHART COPY Signatures Patient Education Materials Headache, Migraine, Classic Medication Leaflets My discharge plan and instructions have been reviewed and explained to me and I,ANA HERNANDEZ understand my current condition and have read and understand these discharge instructions. I have received a written copy of the plan/instructions. If I have questions, I am aware that I should contact my doctor. 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 Lisa can you set a reminder, thanks. [facility] 10-10-2023 Miscellaneous Notes On hold, can resume March of 2024. Lisa can you set a reminder, thanks. Addended by: JEREMY HALLMAN on: 08/12/2023 04:20 PM Modules accepted: Orders Signed. Addended by: LISA RONDON on: 08/12/2023 03:08 PM Modules accepted: Orders Nicotine please UGI shows HH but no reflux. My chart message to pt. CCN updated. ORDERS MAILED Addended by: JEREMY HALLMAN on: 05/20/2023 09:06 AM Modules accepted: Orders Discussed, and ok to sign. Bmi 39- no comorbid have emailed financial team. Addended by: TINY PINEDA on: 05/13/2023 02:30 PM Modules accepted: Orders Orders pended, Pre-op checklist scanned, EGD order sent to ALS PLAN Encounter Diagnoses Name Primary? Vitamin D deficiency Morbid obesity with BMI of 40.0-44.9, adult (HCC) Gastroesophageal reflux disease without esophagitis Prediabetes I have recommended proceeding with the evaluation and work-up for the primary procedure as outlined below: PATIENT SUMMARY Ana Fritz 23 y.o. female with Body mass index is 39.94 kg/m . 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 Does not know biological parents PCP: MAGDA KELLY INITIAL TESTING RESULTS Labwork [x] CMP, TSH, Fasting Lipid Profile, Mg, Zinc, Vit B1 (whole blood), Vit B12, 25-OH Vit D, Fe, Ferritin, Folate Tobacco [x] Serum Nicotine / Cotinine [] Negative [] Positive EGD [x] Dx: [x] GERD [] Dyspepsia [] Other Pathology [x] H. pylori [] Negative [] Positive UGI [x] [] not ordered US Abdomen [x] [] not ordered CINDY eval [x] [] On CPAP / Obtain settings Hematology [] [] Hypercoagulation panel Toxicology [] [] Urine drug screen [] EtOH screen Addtional [] [] Hgb A1c INITIAL CONSULTATIONS CLEARANCE / MANAGEMENT Psychology [x] Dietitian [x] Cardiology [x] [] not ordered Pulmonary [] [x] not ordered Others [] []Heme/Onc []Psychiatry []Pain mgmt PSD [] Physician supervised diet: []None [x]3 mos []6 mos Preop diet [] Preop low calory diet: [x]None []1 wk []2 wks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 with the patient discussing the diagnosis and importance of compliance with the treatment plan as well as documenting on the day of the visit. documented in this encounter [facility] 08-29-2023 Instructions Mary Plaza Rai, MA - 08/29/2023 2:10 PM EDT YOUR APPOINTMENT TODAY WAS WITH THE [facility] LUNG NODULE CLINIC, COPD CLINIC, PULMONARY AND SLEEP MEDICINE OFFICE. PLEASE CALL OUR OFFICE AT [phone] IF YOU HAVE NOT RECEIVED YOUR TEST RESULTS 7 DAYS AFTER TESTING IS COMPLETED. PLEASE REMEMBER TO REQUEST REFILLS AT YOUR OFFICE VISITS. PHONE/FAX REQUESTS REQUIRE 48-72 HOURS FOR RESPONSE. A FRIENDLY REMINDER COPAYS ARE DUE AT TIME OF SERVICE. THANK YOU. Our Patients Are Important! We want to improve and you can help. After your visit we want you to feel: Listened to, Respected and have your health care explained. You may receive a survey asking you about your visit. Please complete the survey. We will use your feedback to make improvements. COVID-19 VACCINATION INFORMATION: . [phone] [email or web address] [facility] Central Scheduling [phone] [facility] Sleep Scheduling [phone] documented in this encounter [facility] 08-28-2023 Note [facility] PSYCHOLOGICAL EVALUATION: SURGICAL PATIENT PATIENT: Ana Hernandez SERVICE DATE: 08/28/23 DATE OF : 2000 SERVICE: Psychiatric Diagnostic Interview EVALUATION PROCEDURES: Semi-structured clinical interview with patient, review of patient medical records, review of [facility] intake paperwork, administration and scoring of brief symptom inventories, and mental status examination. Inventories administered included: PHQ-9, BEST-7, AUDIT, and an eating behavior questionnaire. IDENTIFYING DATA: The patient is a 23 y.o. female, referred by Dr. Fritz for psychological evaluation prior to bariatric surgery. Informed consent for psychological evaluation, including limits of confidentiality and the absence of a therapeutic relationship unless explicitly discussed otherwise, was reviewed and signed with the patient. Patient was provided with introduction about the role of the psychological evaluation in the bariatric preparation process including evaluating emotional factors contributing to issues with food and obesity with goal of promoting optimal post bariatric surgery outcome. Collateral parties present with patient: none WEIGHT AND MEDICAL HISTORY: The patient does not know about family history of obesity as she was adopted. The patient reported that she has struggled with weight since adolescence . The patient attributes weight gain to , medications, health problems , inactivity , and poor eating habits The patient?s previous weight loss attempts have included self-directed diets; however, she was unsuccessful sustaining significant weight loss with any of these. Most recent vitals: Height: Ht Readings from Last 1 Encounters: 08/19/23 1.473 m (4' 10 ) Weight: Wt Readings from Last 1 Encounters: 08/19/23 88 kg (194 lb) BMI: BMI Readings from Last 1 Encounters: 08/19/23 40.55 kg/m? Past Medical History: Diagnosis Date Anesthesia complication Anxiety Asthma Depression BIGGS (dyspnea on exertion) Fatigue GERD (gastroesophageal reflux disease) History of UTI Memory difficulty Morbid obesity, unspecified obesity type (HCC) Prediabetes Snoring Patient Active Problem List Diagnosis Morbid obesity, unspecified obesity type (HCC) Prediabetes History of UTI GERD (gastroesophageal reflux disease) Other acute pancreatitis with uninfected necrosis Current Outpatient Medications: albuterol 108 (90 Base) MCG/ACT inhaler, Inhale 2 puffs every 6 hours as needed for wheezing., Disp: , Rfl: cetirizine (ZyrTEC) 10 MG tablet, , Disp: , Rfl: clarithromycin (Biaxin) 500 MG tablet, Take 1 tablet (500 mg) by mouth 2 times daily for 14 days., Disp: 28 tablet, Rfl: 0 FLUoxetine (PROzac) 10 MG tablet, Take 10 mg by mouth daily., Disp: , Rfl: lansoprazole (Prevacid) [address] capsule, Take 1 capsule (30 mg) by mouth 2 times daily for 14 days. Do not crush or chew., Disp: 28 capsule, Rfl: 0 liraglutide (Victoza) 18 MG/3ML injection, Inject 1.2 mg under the skin daily., Disp: 2 Pen, Rfl: 0 lithium 600 MG capsule, Take 600 mg by mouth 2 times daily. 600 mg in the morning and 600 mg in the evening, Disp: , Rfl: metroNIDAZOLE (Flagyl) 500 MG tablet, Take 1 tablet (500 mg) by mouth 3 times daily for 14 days., Disp: 42 tablet, Rfl: 0 Multiple Vitamins-Iron (MULTIVITAMIN/IRON PO), Take 1 tablet by mouth daily., Disp: , Rfl: propranolol (Inderal) 20 MG tablet, 20 mg in the morning and 20 mg in the evening., Disp: , Rfl: risperiDONE (RisperDAL) 1 MG tablet, Take 1 mg by mouth in the morning and 1 mg at noon and 1 mg in the evening and 1 mg before bedtime., Disp: , Rfl: topiramate 50 MG tablet, Take 50 mg by mouth 1 (one) time each day., Disp: , Rfl: VITAMIN D PO, Take 5,000 Int'l Units by mouth every 7 days., Disp: , Rfl: SURGICAL READINESS: The patient has been considering weight loss surgery for 2 years. She is interested in the gastric sleeve procedure. Her motivations for surgery include: to improve health, to increase mobility, to increase energy, to be healthier for children, and to sustain permanent weight loss. She knows one other person who had weight loss surgery. The patient demonstrated excellent knowledge about the surgical procedure, the risks, and the required lifestyle changes. EATING AND EXERCISE HABITS: The patient has completed 3 out of 3 required visits of physician supervised diet and exercise. Her current goals include: consuming regular meals, increasing protein, and meal preparation. Patient demonstrates some changes to her diet since seeking WLS, including increasing water intake, reducing caffeine intake, reducing soda/carbonation intake, and using protein bars/shakes. The patient currently reports a regular exercise program consisting of walking, 15 minutes a day, 7 days per week. The patient?s dietary recall is as follows: Breakfast: protein shakes Snack: none (more content not included)... [facility] 08-23-2023 Telephone encounter Note Noted, and DR Fritz is aware. [facility] 08-23-2023 Miscellaneous Notes Noted, and DR Fritz is aware. AGD Will route to ROUTER OPERATOR as FYI as pt is preop. Pt was contacted via [facility] to inform of + h pylori on EGD. Pt did indicate that she is in the hospital with pancreatitis at that time. Name of caller requesting page:Dr. Salinas Phone Number of caller: [phone] Facility requesting page: [facility] ED Reason for Page: Doctor to Doctor Provider paged: Dr. Fritz Practice Name of paged provider: General Surgery Page Placed to #: Secure chat in EPIC Time Page was sent or provider contacted: 7:30 PM Page Content: Dr. Salinas @ [facility] requesting to speak to you. Call back number is [phone]. Please contact [facility] and advise, thanks! documented in this encounter [facility] 08-23-2023 Telephone encounter Note AGD Will route to ROUTER OPERATOR as FYI as pt is preop. Pt was contacted via [facility] to inform of + h pylori on EGD. Pt did indicate that she is in the hospital with pancreatitis at that time. [facility] 08-22-2023 Telephone encounter Note Thanks, sent rx to [facility]. [facility] 08-22-2023 Miscellaneous Notes Thanks, sent rx to [facility]. EGD 08/19/23: Final Diagnosis STOMACH, ANTRUM, BIOPSY: - HELICOBACTER GASTRITIS Comment: Negative for intestinal metaplasia, dysplasia, and malignancy. ADLesvia CCN updated Orders pended Lab order printed and mailed with info sheet. 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 Reminder set for 10/04/23 documented in this encounter [facility] 08-21-2023 Telephone encounter Note EGD 08/19/23: Final Diagnosis STOMACH, ANTRUM, BIOPSY: - HELICOBACTER GASTRITIS Comment: Negative for intestinal metaplasia, dysplasia, and malignancy. ADLesvia CCN updated Orders pended Lab order printed and mailed with info sheet. 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 Reminder set for 10/04/23 [facility] 08-20-2023 Telephone encounter Note Name of caller requesting page:Dr. Salinas Phone Number of caller: [phone] Facility requesting page: [facility] ED Reason for Page: Doctor to Doctor Provider paged: Dr. Fritz Practice Name of paged provider: General Surgery Page Placed to #: Secure chat in EPIC Time Page was sent or provider contacted: 7:30 PM Page Content: Dr. Salinas @ [facility] requesting to speak to you. Call back number is [phone]. Please contact [facility] ED and advise, thanks! [facility] 08-20-2023 Telephone encounter Note Noted, thanks. [facility] Work Phone: 08-20-2023 Miscellaneous Notes Noted, thanks. AD. Last OV-08/12/23 with VM. EGD yesterday with AGD. Findings: The esophagus was normal. The examined duodenum was normal. A small hiatal hernia was present. No biopsies or other specimens were collected for this exam. Biopsy with a cold forceps in the gastric antrum was performed for Helicobacter pylori testing. Will route to ROUTER OPERATOR as FYI S: Patient spoke with [facility] nurse regarding abdominal pain post endoscopy B: Onset of symptoms/concern 08/20/23 A: Patient states upper abdominal pain 9/10 pain described as aching. Patient states area feels hard and swollen. Patient states nausea. Patient states they had endoscopy yesterday. Patient denies emesis, denies chest pain, denies difficulty swallowing, denies difficulty breathing, denies bloody black tarry stools, denies fever. R: Advised patient to go to ED for severe abdominal pain. Patient understands care advice and will go to [facility] ED if pain gets worse. No further needs at this time. Patient instructed to call back with new or worsening symptoms. Reason for Disposition SEVERE abdominal pain (e.g., excruciating) Protocols used: Abdominal Pain - [id number] documented in this encounter [facility] 08-20-2023 Telephone encounter Note AD. Last OV-08/12/23 with VM. EGD yesterday with AGD. Findings: The esophagus was normal. The examined duodenum was normal. A small hiatal hernia was present. No biopsies or other specimens were collected for this exam. Biopsy with a cold forceps in the gastric antrum was performed for Helicobacter pylori testing. Will route to ROUTER OPERATOR as FYI [facility] 08-20-2023 Telephone encounter Note S: Patient spoke with [facility] nurse regarding abdominal pain post endoscopy B: Onset of symptoms/concern 08/20/23 A: Patient states upper abdominal pain 9/10 pain described as aching. Patient states area feels hard and swollen. Patient states nausea. Patient states they had endoscopy yesterday. Patient denies emesis, denies chest pain, denies difficulty swallowing, denies difficulty breathing, denies bloody black tarry stools, denies fever. R: Advised patient to go to ED for severe abdominal pain. Patient understands care advice and will go to [place] ED if pain gets worse. No further needs at this time. Patient instructed to call back with new or worsening symptoms. Reason for Disposition SEVERE abdominal pain (e.g., excruciating) Protocols used: Abdominal Pain - [id number] [facility] 08-19-2023 Note Patient: Darling Hernandez Procedure Summary Date: 08/19/23 Room / Location: [facility] 2 / [facility] G[facility] Anesthesia Start: 844 Anesthesia Stop: 852 Procedure: EGD WITH BIOPSY Diagnosis: Gastro-esophageal reflux disease without esophagitis (Gastro-esophageal reflux disease without esophagitis [K21.9]) Providers: Ciaran Fritz MD Responsible Provider: Ananda Morfin MD Anesthesia Type: MAC ASA Status: 2 Anesthesia Type: MAC Vitals Value Taken Time BP 164/69 08/19/23 0853 Temp 36.2 ?C (97.2 ?F) 08/19/23 0853 Pulse 93 08/19/23 0853 Resp 18 08/19/23 0853 SpO2 100 % 08/19/23 0853 Anesthesia Post Evaluation Patient location during evaluation: PACU Patient participation: complete - patient participated Level of consciousness: awake and alert Pain management: satisfactory to patient Airway patency: patent Dental Injury: no Cardiovascular status: acceptable, blood pressure returned to baseline and hemodynamically stable Respiratory status: acceptable, spontaneous ventilation and face mask Hydration status: euvolemic Nausea/Vomiting: controlled No notable events documented. Patient can be discharged once all PACU criteria has been met. [facility] 08-19-2023 Note Patient: Darling Hernandez Procedure Summary Date: 08/19/23 Room / Location: [address] ENDO SEC 2 / [facility] Gastro[facility]ology Anesthesia Start: 844 Anesthesia Stop: 852 Procedure: EGD WITH BIOPSY Diagnosis: Gastro-esophageal reflux disease without esophagitis (Gastro-esophageal reflux disease without esophagitis [K21.9]) Providers: Ciaran Fritz MD Responsible Provider: Ananda Morfin MD Anesthesia Type: MAC ASA Status: 2 Anesthesia Type: MAC Vitals Value Taken Time BP 164/69 08/19/23 0853 Temp 36.2 ?C (97.2 ?F) 08/19/23 0853 Pulse 93 08/19/23 0853 Resp 18 08/19/23 0853 SpO2 100 % 08/19/23 0853 Anesthesia Post Evaluation Patient location during evaluation: PACU Patient participation: complete - patient participated Level of consciousness: awake and alert Pain score: 0 Pain management: satisfactory to patient Multimodal analgesia pain management approach Airway patency: patent Two or more strategies used to mitigate risk of obstructive sleep apnea Cardiovascular status: acceptable and hemodynamically stable Respiratory status: acceptable, spontaneous ventilation and face mask Hydration status: acceptable Comments: ENDO procedure No notable events documented. MIPS #430 PONV Patient did not receive an inhalational anesthetic ([id number]) MIPS # 424 Perioperative Temperature Management Anesthesia time was less than 60 minutes (4256F) MIPS #477 Multimodal Pain Management Not emergent case MIPS #404 Anesthesiology Smoking Abstinence The patient is not a current smoker (e.g. cigarette, cigar, pipe, e-cigarette/vaping/marijuana) If no stop here (G9644) I completed my handoff to the receiving clinician during which we: 1. Identified the patient 2. Identified the responsible provider 3. Reviewed the pertinent medical history 4. Discussed the surgical course 5. Reviewed intra-op anesthesia management and issues during anesthesia 6. Set expectations for post-procedure period 7. Allowed opportunity for questions and acknowledgement of understanding. [facility] 08-19-2023 Note CIARAN FRITZ MD , [facility], [facility] MINIMALLY INVASIVE & METABOLIC / BARIATRIC SURGERY [facility] HISTORY AND PHYSICAL 08/19/2023 PATIENT: Ana Hernandez DATE OF : 2000 HISTORY OF PRESENT ILLNESS: The patient is a 23 y.o. female who presents for endoscopic evaluation of GERD in preparation for SLEEVE GASTRECTOMY - aka SG with Dr. Ciaran Fritz. Thoroughly reviewed the patient's medical history, family history, social history and review of systems with the patient today in the office. Please see medical record for pertinent positives. Past Medical History: Past Medical History: Diagnosis Date Anesthesia complication Anxiety Asthma Depression BIGGS (dyspnea on exertion) Fatigue GERD (gastroesophageal reflux disease) History of UTI Memory difficulty Morbid obesity, unspecified obesity type (HCC) Prediabetes Snoring Past Surgical History: Past Surgical History: Procedure Laterality Date APPENDECTOMY 2007 SECTION, LOW TRANSVERSE Bilateral TYMPANOSTOMY TUBE PLACEMENT WISDOM TOOTH EXTRACTION 2017 Current Medications: Current Facility-Administered Medications Medication Dose Route Frequency Provider Last Rate Last Admin sodium chloride 0.9 % infusion 50 mL/hr IntraVENous Continuous Jeremy Hallman APRN - 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 Authorizing Provider albuterol 108 (90 Base) MCG/ACT inhaler Inhale 2 puffs every 6 hours as needed for wheezing. Yes Historical Provider, cetirizine (ZyrTEC) 10 MG tablet 08/07/23 Yes Historical Provider, FLUoxetine (PROzac) 10 MG tablet Take 10 mg by mouth daily. Yes Historical Provider, liraglutide (Victoza) 18 MG/3ML injection Inject 1.2 mg under the skin daily. 08/12/23 09/11/23 Yes Miguelangel Green MD lithium 600 MG capsule Take 600 mg by mouth 2 times daily. 600 mg in the morning and 600 mg in the evening 01/09/23 Yes Historical Provider, Multiple Vitamins-Iron (MULTIVITAMIN/IRON PO) Take 1 tablet by mouth daily. 06/03/23 Yes Historical Provider, propranolol (Inderal) 20 MG tablet 20 mg in the morning and 20 mg in the evening. 08/08/23 Yes Historical Provider, risperiDONE (RisperDAL) 1 MG tablet Take 1 mg by mouth in the morning and 1 mg at noon and 1 mg in the evening and 1 mg before bedtime. Yes Historical Provider, topiramate 50 MG tablet Take 50 mg by mouth 1 (one) time each day. Yes Historical Provider, VITAMIN D PO Take 5,000 Int'l Units by mouth every 7 days. 06/03/23 Yes Historical ProviderMD Allergies: Penicillin g and Pcn [penicillins] Social History: Social History Socioeconomic History Marital status: Spouse name: Not on file Number of children: Not on file Years of education: Not on file Highest education level: Not on file Occupational History Not on file Tobacco Use Smoking status: Never Smokeless tobacco: Never Substance and Sexual Activity Alcohol use: Yes Alcohol/week: 1.0 standard drink of alcohol Types: 1 Standard drinks or equivalent per week Drug use: Not Currently Comment: caffeine use: 2 cups of coffee a day Sexual activity: Yes Partners: Male Other Topics Concern Not on file Social History Narrative Not on file Social Determinants of Health Financial Resource Strain: Not on file Food Insecurity: Not on file Transportation Needs: Not on file Physical Activity: Not on file Stress: Not on file Social Connections: Not on file Intimate Partner Violence: Not At Risk (08/19/2023) Humiliation, Afraid, Rape, and Kick questionnaire Fear of Current or Ex-Partner: No Emotionally Abused: No Physically Abused: No Sexually Abused: No Housing Stability: Not on file Family History: @[facility] REVIEW OF SYSTEMS: CONSTITUTIONAL: Negative for fatigue, and unexpected weight change RESPIRATORY: Negative for cough, SOB, and wheezing CARDIOVASCULAR: Negative for chest pains and palpatations GASTROINTESTINAL: heartburn, reflux, and dyspepsia HEMATOLOGIC/LYMPHATIC: Negative for adenopathy. Does not bruise/bleed easily. NEUROLOGICAL: Negative for seizures and syncope * All other ROS reviewed see HPI for pertinent positives and negatives. PHYSICAL EXAM: VITALS: BP (!) 104/33 Pulse 84 Temp 36.2 ?C (97.1 ?F) (Temporal) Resp 18 Ht 4' 10 (1.473 m) Wt 194 lb (88 kg) LMP 07/10/2023 Comment: signed refusal SpO2 100% BMI 40.55 kg/m? GENERAL: Oriented to person, place, and time. Appears well nourished. No distress ENT: Normocepalic,atraumatic, without obvious abnormality NECK: supple, symmetrical, trachea midline LUNGS: Resp effort easy and unlabored, breath sounds normal CARDIOVASCULAR: RRR, No murmur ABDOMEN: Soft, non-tender, no open wounds. MUSCULOSKELETAL: Normal range of motion, ambulatory without assistance NEUROLOGIC: No focal neurolo (more content not included)... [facility] 08-19-2023 Note Endoscopy Center- [facility] Patient Name: Ana Hernandez Procedure Date: 08/19/2023 8:30 AM Gender: Female Date of : 2000 Age: 23 Admit Type: Outpatient Note Status: Finalized Endoscopist: Ciaran Fritz MD, [id number] Procedure: Upper GI endoscopy Indications: Esophageal reflux, Preoperative assessment for bariatric surgery to treat morbid obesity Findings: The esophagus was normal. The examined duodenum was normal. A small hiatal hernia was present. No biopsies or other specimens were collected for this exam. Biopsy with a cold forceps in the gastric antrum was performed for Helicobacter pylori testing. Impression: - Normal esophagus. - Normal examined duodenum. - Small hiatal hernia. No specimens collected. - Biopsy was performed in the gastric antrum. Recommendation: - Patient has a contact number available for emergencies. The signs and symptoms of potential delayed complications were discussed with the patient. Return to normal activities tomorrow. Written discharge instructions were provided to the patient. - Return to Bariatric clinic (date not yet determined). Medicines: Monitored Anesthesia Care Procedure: Pre-Anesthesia Assessment: - Prior to the procedure, a History and Physical was performed, and patient medications and allergies were reviewed. The patient's tolerance of previous anesthesia was also reviewed. The risks and benefits of the procedure and the sedation options and risks were discussed with the patient. All questions were answered, and informed consent was obtained. Prior Anticoagulants: The patient has taken no anticoagulant or antiplatelet agents. ASA Grade Assessment: III - A patient with severe systemic disease. After reviewing the risks and benefits, the patient was deemed in satisfactory condition to undergo the procedure. After obtaining informed consent, the endoscope was passed under direct vision. Throughout the procedure, the patient's blood pressure, pulse, and oxygen saturations were monitored continuously. The Endoscope was introduced through the mouth, and advanced to the second part of duodenum. The upper GI endoscopy was accomplished with ease. The patient tolerated the procedure well. Complications: No immediate complications. Procedure Code(s): --- Professional --- 56813, Esophagogastroduodenoscopy, flexible, transoral; with biopsy, single or multiple --- Technical --- 99657, Esophagogastroduodenoscopy, flexible, transoral; with biopsy, single or multiple Diagnosis Code(s): --- Professional --- K44.9, Diaphragmatic hernia without obstruction or gangrene K21.9, Gastro-esophageal reflux disease without esophagitis Z01.818, Encounter for other preprocedural examination E66.01, Morbid (severe) obesity due to excess calories --- Technical --- K44.9, Diaphragmatic hernia without obstruction or gangrene K21.9, Gastro-esophageal reflux disease without esophagitis Z01.818, Encounter for other preprocedural examination E66.01, Morbid (severe) obesity due to excess calories CPT copyright 2021 [employer]. All rights reserved. The codes documented in this report are preliminary and upon nuclear technologist review may be revised to meet current compliance requirements. Attending Participation: I was present and participated during the entire procedure from insertion to removal of the endoscope. Ciaran Fritz MD 08/19/2023 9:05:14 AM This report has been signed electronically. Number of Addenda: 0 Note Initiated On: 08/19/2023 8:30 AM [facility] 08-19-2023 Note Patient: Darling Hernandez Procedure Information Date/Time: 08/19/23 0900 Procedure: EGD WITH BIOPSY - 30 MINUTES Location: [facility] Providers: Ciaran Fritz MD Relevant Problems Anesthesia (+) History of UTI GI (+) GERD (gastroesophageal reflux disease) Pulmonary (+) History of UTI Past Medical History: Past Medical History: No date: Anesthesia complication No date: Anxiety No date: Asthma No date: Depression No date: BIGGS (dyspnea on exertion) No date: Fatigue No date: GERD (gastroesophageal reflux disease) No date: History of UTI No date: Memory difficulty No date: Morbid obesity, unspecified obesity type (HCC) No date: Prediabetes No date: Snoring Past Surgical History: Past Surgical History: 2008: APPENDECTOMY No date: SECTION, LOW TRANSVERSE; Bilateral No date: TYMPANOSTOMY TUBE PLACEMENT 2018: WISDOM TOOTH EXTRACTION Social History: TOBACCO: reports that she has never smoked. She has never used smokeless tobacco. ETOH: reports current alcohol use of about 1.0 standard drink of alcohol per week. Social History Substance and Sexual Activity Drug Use Not Currently Comment: caffeine use: 2 cups of coffee a day Family History: Family History Adopted: Yes Screening: unknown Clinical information reviewed: Tobacco Allergies Meds Med Hx Surg Hx OB Status Fam Hx Soc Hx Physical Exam Airway Mallampati: II TM distance: >3 FB Neck ROM: full Mouth Open: normal Cardiovascular Dental dentition normal Pulmonary Abdominal Anesthesia Plan patient is NPO appropriate Any family history or previous problems with anesthesia no ASA 2 MAC Any family history or previous problems with anesthesia no The patient is not a current smoker. Anesthetic plan and risks discussed with patient. CINDY Screening Labs: Lab Results Component Value Date WBC 7.8 05/29/2023 HGB 12.0 05/29/2023 HCT 36.6 05/29/2023 MCV 84.9 05/29/2023 PLT 389 05/29/2023 Lab Results Component Value Date NA 139 05/29/2023 K 4.3 05/29/2023 CL 108 (H) 05/29/2023 CO2 23 05/29/2023 BUN 13 05/29/2023 CREATININE 0.75 05/29/2023 GLUCOSE 92 05/29/2023 CALCIUM 9.3 05/29/2023 PROT 8.0 05/29/2023 ALKPHOS 73 05/29/2023 AST 28 05/29/2023 ALT 30 05/29/2023 EGFR >90.0 05/29/2023 No echocardiogram results found for the past 14 days 08/14/23 ECG 12-LEAD 08/14/2023 4:33 PM (Final) Narrative Sinus Rhythm -Frequent pvcs -ventricular bigeminy Low voltage in precordial leads. -Abnormal precordial QRS contours -nondiagnostic for this age. -Negative precordial T-waves. ABNORMAL Signed by: Ananda Kinsey MD on 08/14/2023 4:33 PM [facility] 08-19-2023 History and physical note Images from the original note were not included. CIARAN FRITZ MD , FACS, [facility] MINIMALLY INVASIVE & METABOLIC / BARIATRIC SURGERY [facility] HISTORY AND PHYSICAL 08/19/2023 PATIENT: Ana Hernandez DATE OF : 2000 - HISTORY OF PRESENT ILLNESS: The patient is a 23 y.o. female who presents for endoscopic evaluation of GERD in preparation for SLEEVE GASTRECTOMY - aka SG with Dr. Ciaran Fritz. Thoroughly reviewed the patient's medical history, family history, social history and review of systems with the patient today in the office. Please see medical record for pertinent positives. Past Medical History: Past Medical History: Diagnosis Date Anesthesia complication Anxiety Asthma Depression BIGGS (dyspnea on exertion) Fatigue GERD (gastroesophageal reflux disease) History of UTI Memory difficulty Morbid obesity, unspecified obesity type (HCC) Prediabetes Snoring Past Surgical History: Past Surgical History: Procedure Laterality Date APPENDECTOMY 2008 SECTION, LOW TRANSVERSE Bilateral TYMPANOSTOMY TUBE PLACEMENT WISDOM TOOTH EXTRACTION 2017 Current Medications: Current Facility-Administered Medications Medication Dose Route Frequency Provider Last Rate Last Admin sodium chloride 0.9 % infusion 50 mL/hr IntraVENous Continuous Jeremy Hallman APRN - [employer]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 Authorizing Provider albuterol 108 (90 Base) MCG/ACT inhaler Inhale 2 puffs every 6 hours as needed for wheezing. Yes Historical Provider, cetirizine (ZyrTEC) 10 MG tablet 08/07/23 Yes Historical Provider, FLUoxetine (PROzac) 10 MG tablet Take 10 mg by mouth daily. Yes Historical Provider, liraglutide (Victoza) 18 MG/3ML injection Inject 1.2 mg under the skin daily. 08/12/23 09/11/23 Yes Miguelangel Green MD lithium 600 MG capsule Take 600 mg by mouth 2 times daily. 600 mg in the morning and 600 mg in the evening 01/09/23 Yes Historical Provider, Multiple Vitamins-Iron (MULTIVITAMIN/IRON PO) Take 1 tablet by mouth daily. 06/03/23 Yes Historical Provider, propranolol (Inderal) 20 MG tablet 20 mg in the morning and 20 mg in the evening. 08/08/23 Yes Historical Provider, risperiDONE (RisperDAL) 1 MG tablet Take 1 mg by mouth in the morning and 1 mg at noon and 1 mg in the evening and 1 mg before bedtime. Yes Historical Provider, topiramate 50 MG tablet Take 50 mg by mouth 1 (one) time each day. Yes Historical Provider, VITAMIN D PO Take 5,000 Int'l Units by mouth every 7 days. 06/03/23 Yes Historical ProviderMD Allergies: Penicillin g and Pcn [penicillins] Social History: Social History Socioeconomic History Marital status: Spouse name: Not on file Number of children: Not on file Years of education: Not on file Highest education level: Not on file Occupational History Not on file Tobacco Use Smoking status: Never Smokeless tobacco: Never Substance and Sexual Activity Alcohol use: Yes Alcohol/week: 1.0 standard drink of alcohol Types: 1 Standard drinks or equivalent per week Drug use: Not Currently Comment: caffeine use: 2 cups of coffee a day Sexual activity: Yes Partners: Male Other Topics Concern Not on file Social History Narrative Not on file Social Determinants of Health Financial Resource Strain: Not on file Food Insecurity: Not on file Transportation Needs: Not on file Physical Activity: Not on file Stress: Not on file Social Connections: Not on file Intimate Partner Violence: Not At Risk (08/19/2023) Humiliation, Afraid, Rape, and Kick questionnaire Fear of Current or Ex-Partner: No Emotionally Abused: No Physically Abused: No Sexually Abused: No Housing Stability: Not on file Family History: @FAMHXNH@ REVIEW OF SYSTEMS: CONSTITUTIONAL: Negative for fatigue, and unexpected weight change RESPIRATORY: Negative for cough, SOB, and wheezing CARDIOVASCULAR: Negative for chest pains and palpatations GASTROINTESTINAL: heartburn, reflux, and dyspepsia HEMATOLOGIC/LYMPHATIC: Negative for adenopathy. Does not bruise/bleed easily. NEUROLOGICAL: Negative for seizures and syncope * All other ROS reviewed see HPI for pertinent positives and negatives. PHYSICAL EXAM: VITALS: BP (!) 104/33 Pulse 84 Temp 36.2 C (97.1 F) (Temporal) Resp 18 Ht 4' 10 (1.473 m) Wt 194 lb (88 kg) LMP 07/10/2023 Comment: signed refusal SpO2 100% BMI 40.55 kg/m GENERAL: Oriented to person, place, and time. Appears well nourished. No distress ENT: Normocepalic,atraumatic, without obvious abnormality NECK: supple, symmetrical, trachea midline LUNGS: Resp effort easy and unlabored, breath sounds normal CARDIOVASCULAR: RRR, No murmur ABDOMEN: Soft, non-tender, no open wounds. MUSCULOSKELETAL: Normal range of motion, ambulatory without assistance NEUROLOGIC: No focal neurologic deficits IMPRESSION/RECOMMENDATIONS: EGD with Biopsy Patient counseled on risks, benefits, and alternatives of treatment plan at length. Patient states an understanding and willingness to proceed with plan. [facility] 08-19-2023 History and physical note Images from the original note were not included. CIARAN FRITZ MD , FACS, [facility] MINIMALLY INVASIVE & METABOLIC / BARIATRIC SURGERY [facility] HISTORY AND PHYSICAL 08/19/2023 PATIENT: Ana Hernandez DATE OF : 2000 - HISTORY OF PRESENT ILLNESS: The patient is a 23 y.o. female who presents for endoscopic evaluation of GERD in preparation for SLEEVE GASTRECTOMY - aka SG with Dr. Ciaran Fritz. Thoroughly reviewed the patient's medical history, family history, social history and review of systems with the patient today in the office. Please see medical record for pertinent positives. Past Medical History: Past Medical History: Diagnosis Date Anesthesia complication Anxiety Asthma Depression BIGGS (dyspnea on exertion) Fatigue GERD (gastroesophageal reflux disease) History of UTI Memory difficulty Morbid obesity, unspecified obesity type (HCC) Prediabetes Snoring Past Surgical History: Past Surgical History: Procedure Laterality Date APPENDECTOMY 2007 SECTION, LOW TRANSVERSE Bilateral TYMPANOSTOMY TUBE PLACEMENT WISDOM TOOTH EXTRACTION 2017 Current Medications: Current Facility-Administered Medications Medication Dose Route Frequency Provider Last Rate Last Admin sodium chloride 0.9 % infusion 50 mL/hr IntraVENous Continuous Jeremy Hallman APRN - [employer]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 Authorizing Provider albuterol 108 (90 Base) MCG/ACT inhaler Inhale 2 puffs every 6 hours as needed for wheezing. Yes Historical Provider, cetirizine (ZyrTEC) 10 MG tablet 08/07/23 Yes Historical Provider, FLUoxetine (PROzac) 10 MG tablet Take 10 mg by mouth daily. Yes Historical Provider, liraglutide (Victoza) 18 MG/3ML injection Inject 1.2 mg under the skin daily. 08/12/23 09/11/23 Yes Miguelangel Green MD lithium 600 MG capsule Take 600 mg by mouth 2 times daily. 600 mg in the morning and 600 mg in the evening 01/09/23 Yes Historical Provider, Multiple Vitamins-Iron (MULTIVITAMIN/IRON PO) Take 1 tablet by mouth daily. 06/03/23 Yes Historical Provider, propranolol (Inderal) 20 MG tablet 20 mg in the morning and 20 mg in the evening. 08/08/23 Yes Historical Provider, risperiDONE (RisperDAL) 1 MG tablet Take 1 mg by mouth in the morning and 1 mg at noon and 1 mg in the evening and 1 mg before bedtime. Yes Historical Provider, topiramate 50 MG tablet Take 50 mg by mouth 1 (one) time each day. Yes Historical Provider, VITAMIN D PO Take 5,000 Int'l Units by mouth every 7 days. 06/03/23 Yes Historical Provider, Allergies: Penicillin g and Pcn [penicillins] Social History: Social History Socioeconomic History Marital status: Spouse name: Not on file Number of children: Not on file Years of education: Not on file Highest education level: Not on file Occupational History Not on file Tobacco Use Smoking status: Never Smokeless tobacco: Never Substance and Sexual Activity Alcohol use: Yes Alcohol/week: 1.0 standard drink of alcohol Types: 1 Standard drinks or equivalent per week Drug use: Not Currently Comment: caffeine use: 2 cups of coffee a day Sexual activity: Yes Partners: Male Other Topics Concern Not on file Social History Narrative Not on file Social Determinants of Health Financial Resource Strain: Not on file Food Insecurity: Not on file Transportation Needs: Not on file Physical Activity: Not on file Stress: Not on file Social Connections: Not on file Intimate Partner Violence: Not At Risk (08/19/2023) Humiliation, Afraid, Rape, and Kick questionnaire Fear of Current or Ex-Partner: No Emotionally Abused: No Physically Abused: No Sexually Abused: No Housing Stability: Not on file Family History: @FAMXNE@ REVIEW OF SYSTEMS: CONSTITUTIONAL: Negative for fatigue, and unexpected weight change RESPIRATORY: Negative for cough, SOB, and wheezing CARDIOVASCULAR: Negative for chest pains and palpatations GASTROINTESTINAL: heartburn, reflux, and dyspepsia HEMATOLOGIC/LYMPHATIC: Negative for adenopathy. Does not bruise/bleed easily. NEUROLOGICAL: Negative for seizures and syncope * All other ROS reviewed see HPI for pertinent positives and negatives. PHYSICAL EXAM: VITALS: BP (!) 104/33 Pulse 84 Temp 36.2 C (97.1 F) (Temporal) Resp 18 Ht 4' 10 (1.473 m) Wt 194 lb (88 kg) LMP 07/10/2023 Comment: signed refusal SpO2 100% BMI 40.55 kg/m GENERAL: Oriented to person, place, and time. Appears well nourished. No distress ENT: Normocepalic,atraumatic, without obvious abnormality NECK: supple, symmetrical, trachea midline LUNGS: Resp effort easy and unlabored, breath sounds normal CARDIOVASCULAR: RRR, No murmur ABDOMEN: Soft, non-tender, no open wounds. MUSCULOSKELETAL: Normal range of motion, ambulatory without assistance NEUROLOGIC: No focal neurologic deficits IMPRESSION/RECOMMENDATIONS: EGD with Biopsy Patient counseled on risks, benefits, and alternatives of treatment plan at length. Patient states an understanding and willingness to proceed with plan. documented in this encounter [facility] 08-19-2023 Note Formatting of this n ote might be different from the original. [facility]- [facility] Patient Name: Ana Hernandez Procedure Date: 08/19/2023 8:30 AM Gender: Female Date of : 2000 Age: 23 Admit Type: Outpatient Note Status: Finalized Endoscopist: Ciaran Fritz MD, [id number] Procedure: Upper GI endoscopy Indications: Esophageal reflux, Preoperative assessment for bariatric surgery to treat morbid obesity Findings: The esophagus was normal. The examined duodenum was normal. A small hiatal hernia was present. No biopsies or other specimens were collected for this exam. Biopsy with a cold forceps in the gastric antrum was performed for Helicobacter pylori testing. Impression: - Normal esophagus. - Normal examined duodenum. - Small hiatal hernia. No specimens collected. - Biopsy was performed in the gastric antrum. Recommendation: - Patient has a contact number available for emergencies. The signs and symptoms of potential delayed complications were discussed with the patient. Return to normal activities tomorrow. Written discharge instructions were provided to the patient. - Return to Bariatric clinic (date not yet determined). Medicines: Monitored Anesthesia Care Procedure: Pre-Anesthesia Assessment: - Prior to the procedure, a History and Physical was performed, and patient medications and allergies were reviewed. The patient's tolerance of previous anesthesia was also reviewed. The risks and benefits of the procedure and the sedation options and risks were discussed with the patient. All questions were answered, and informed consent was obtained. Prior Anticoagulants: The patient has taken no anticoagulant or antiplatelet agents. ASA Grade Assessment: III - A patient with severe systemic disease. After reviewing the risks and benefits, the patient was deemed in satisfactory condition to undergo the procedure. After obtaining informed consent, the endoscope was passed under direct vision. Throughout the procedure, the patient's blood pressure, pulse, and oxygen saturations were monitored continuously. The Endoscope was introduced through the mouth, and advanced to the second part of duodenum. The upper GI endoscopy was accomplished with ease. The patient tolerated the procedure well. Complications: No immediate complications. Procedure Code(s): --- Professional --- 28208, Esophagogastroduodenoscopy, flexible, transoral; with biopsy, single or multiple --- Technical --- 25842, Esophagogastroduodenoscopy, flexible, transoral; with biopsy, single or multiple Diagnosis Code(s): --- Professional --- K44.9, Diaphragmatic hernia without obstruction or gangrene K21.9, Gastro-esophageal reflux disease without esophagitis Z01.818, Encounter for other preprocedural examination E66.01, Morbid (severe) obesity due to excess calories --- Technical --- K44.9, Diaphragmatic hernia without obstruction or gangrene K21.9, Gastro-esophageal reflux disease without esophagitis Z01.818, Encounter for other preprocedural examination E66.01, Morbid (severe) obesity due to excess calories CPT copyright 2021 [employer]. All rights reserved. The codes documented in this report are preliminary and upon nuclear technologist review may be revised to meet current compliance requirements. Attending Participation: I was present and participated during the entire procedure from insertion to removal of the endoscope. Ciaran Fritz MD 08/19/2023 9:05:14 AM This report has been signed electronically. Number of Addenda: 0 Note Initiated On: 08/19/2023 8:30 AM [facility] 08-19-2023 Note Formatting of this n ote might be different from the original. [facility] Procedure Date: 08/19/2023 8:30 AM Gender: Female Date of : 2000 Age: 23 Admit Type: Outpatient Note Status: Finalized Endoscopist: Ciaran Fritz MD, [id number] Procedure: Upper GI endoscopy Indications: Esophageal reflux, Preoperative assessment for bariatric surgery to treat morbid obesity Findings: The esophagus was normal. The examined duodenum was normal. A small hiatal hernia was present. No biopsies or other specimens were collected for this exam. Biopsy with a cold forceps in the gastric antrum was performed for Helicobacter pylori testing. Impression: - Normal esophagus. - Normal examined duodenum. - Small hiatal hernia. No specimens collected. - Biopsy was performed in the gastric antrum. Recommendation: - Patient has a contact number available for emergencies. The signs and symptoms of potential delayed complications were discussed with the patient. Return to normal activities tomorrow. Written discharge instructions were provided to the patient. - Return to Bariatric clinic (date not yet determined). Medicines: Monitored Anesthesia Care Procedure: Pre-Anesthesia Assessment: - Prior to the procedure, a History and Physical was performed, and patient medications and allergies were reviewed. The patient's tolerance of previous anesthesia was also reviewed. The risks and benefits of the procedure and the sedation options and risks were discussed with the patient. All questions were answered, and informed consent was obtained. Prior Anticoagulants: The patient has taken no anticoagulant or antiplatelet agents. ASA Grade Assessment: III - A patient with severe systemic disease. After reviewing the risks and benefits, the patient was deemed in satisfactory condition to undergo the procedure. After obtaining informed consent, the endoscope was passed under direct vision. Throughout the procedure, the patient's blood pressure, pulse, and oxygen saturations were monitored continuously. The Endoscope was introduced through the mouth, and advanced to the second part of duodenum. The upper GI endoscopy was accomplished with ease. The patient tolerated the procedure well. Complications: No immediate complications. Procedure Code(s): --- Professional --- 43910, Esophagogastroduodenoscopy, flexible, transoral; with biopsy, single or multiple --- Technical --- 86035, Esophagogastroduodenoscopy, flexible, transoral; with biopsy, single or multiple Diagnosis Code(s): --- Professional --- K44.9, Diaphragmatic hernia without obstruction or gangrene K21.9, Gastro-esophageal reflux disease without esophagitis Z01.818, Encounter for other preprocedural examination E66.01, Morbid (severe) obesity due to excess calories --- Technical --- K44.9, Diaphragmatic hernia without obstruction or gangrene K21.9, Gastro-esophageal reflux disease without esophagitis Z01.818, Encounter for other preprocedural examination E66.01, Morbid (severe) obesity due to excess calories CPT copyright 2021 [employer]. All rights reserved. The codes documented in this report are preliminary and upon nuclear technologist review may be revised to meet current compliance requirements. Attending Participation: I was present and participated during the entire procedure from insertion to removal of the endoscope. Ciaran Fritz MD 08/19/2023 9:05:14 AM This report has been signed electronically. Number of Addenda: 0 Note Initiated On: 08/19/2023 8:30 AM [facility] [employer] 08-19-2023 Miscellaneous Notes [facility] Ana [facility] Procedure Date: 08/19/2023 8:30 AM Gender: Female Date of : 2000 Age: 23 Admit Type: Outpatient Note Status: Finalized Endoscopist: Ciaran Fritz MD, [id number] Procedure: Upper GI endoscopy Indications: Esophageal reflux, Preoperative assessment for bariatric surgery to treat morbid obesity Findings: The esophagus was normal. The examined duodenum was normal. A small hiatal hernia was present. No biopsies or other specimens were collected for this exam. Biopsy with a cold forceps in the gastric antrum was performed for Helicobacter pylori testing. Impression: - Normal esophagus. - Normal examined duodenum. - Small hiatal hernia. No specimens collected. - Biopsy was performed in the gastric antrum. Recommendation: - Patient has a contact number available for emergencies. The signs and symptoms of potential delayed complications were discussed with the patient. Return to normal activities tomorrow. Written discharge instructions were provided to the patient. - Return to Bariatric clinic (date not yet determined). Medicines: Monitored Anesthesia Care Procedure: Pre-Anesthesia Assessment: - Prior to the procedure, a History and Physical was performed, and patient medications and allergies were reviewed. The patient's tolerance of previous anesthesia was also reviewed. The risks and benefits of the procedure and the sedation options and risks were discussed with the patient. All questions were answered, and informed consent was obtained. Prior Anticoagulants: The patient has taken no anticoagulant or antiplatelet agents. ASA Grade Assessment: III - A patient with severe systemic disease. After reviewing the risks and benefits, the patient was deemed in satisfactory condition to undergo the procedure. After obtaining informed consent, the endoscope was passed under direct vision. Throughout the procedure, the patient's blood pressure, pulse, and oxygen saturations were monitored continuously. The Endoscope was introduced through the mouth, and advanced to the second part of duodenum. The upper GI endoscopy was accomplished with ease. The patient tolerated the procedure well. Complications: No immediate complications. Procedure Code(s): --- Professional --- 03916, Esophagogastroduodenoscopy, flexible, transoral; with biopsy, single or multiple --- Technical --- 66025, Esophagogastroduodenoscopy, flexible, transoral; with biopsy, single or multiple Diagnosis Code(s): --- Professional --- K44.9, Diaphragmatic hernia without obstruction or gangrene K21.9, Gastro-esophageal reflux disease without esophagitis Z01.818, Encounter for other preprocedural examination E66.01, Morbid (severe) obesity due to excess calories --- Technical --- K44.9, Diaphragmatic hernia without obstruction or gangrene K21.9, Gastro-esophageal reflux disease without esophagitis Z01.818, Encounter for other preprocedural examination E66.01, Morbid (severe) obesity due to excess calories CPT copyright 2021 [employer]. All rights reserved. The codes documented in this report are preliminary and upon nuclear technologist review may be revised to meet current compliance requirements. Attending Participation: I was present and participated during the entire procedure from insertion to removal of the endoscope. Ciaran Fritz MD 08/19/2023 9:05:14 AM This report has been signed electronically. Number of Addenda: 0 Note Initiated On: 08/19/2023 8:30 AM documented in this encounter [facility] 08-15-2023 Telephone encounter Note I called and scheduled patient for holter 08-20-23 9:30am BC and echo 11-06-23 10 am [facility]. Patient notified and placed on a wait list for echo. [facility] 08-15-2023 Miscellaneous Notes I called and scheduled patient for holter 08-20-23 9:30am [facility] and echo 11-06-23 10 am [facility]. Patient notified and placed on a wait list for echo. documented in this encounter [facility] 08-14-2023 History of Present illness Narrative [facility] Cardiology Note DATE of SERVICE:08/14/23 TIME of SERVICE: 2:57 PM Chief Complaint: Chief Complaint Patient presents with Cardiac Clearance History of PresentIllness: Ana Hernandez is a 23 y.o. female with a history of anxiety, depression, asthma, GERD, prediabetes and obesity who presents to the office today for cardiac evaluation prior to surgical bariatric intervention. Currently the patient reports she was adopted and does not know her family history. 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 She reports she did have learning delays. However she denies any prior cardiac history or cardiac testing or needing to follow with cardiology in the past. However she reports endocrinology had told her when she was a child that I might have cardiac problems when I get older. She reports she takes beta-asael/propanolol for migraines which was just initiated approximately 1 week ago. She does have shortness of breath with going up steps which she relates to her weight. She denies chest pain, orthopnea, PND, palpitations or syncope. She states that she has an [id number] son who was born without any complications. She states that she had more weight gain following the of her son and subsequently has decided to proceed with weight management with surgical bariatric intervention. 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 Past Medical History: Past Medical History: Diagnosis Date Anesthesia complication Anxiety Asthma Depression BIGGS (dyspnea on exertion) Fatigue GERD (gastroesophageal reflux disease) History of UTI Memory difficulty Morbid obesity, unspecified obesity type (HCC) Prediabetes Snoring Past Surgical History Past Surgical History: Procedure Laterality Date APPENDECTOMY 2008 SECTION, LOW TRANSVERSE Bilateral TYMPANOSTOMY TUBE PLACEMENT WISDOM TOOTH EXTRACTION 2018 Family History Family History Adopted: Yes Social History Social History Tobacco Use Smoking status: Never Smokeless tobacco: Never Substance Use Topics Alcohol use: Yes Alcohol/week: 1.0 standard drink of alcohol Types: 1 Standard drinks or equivalent per week Drug use: Not Currently Comment: caffeine use: 2 cups of coffee a day Allergies: Allergies Allergen Reactions Cefdinir Other Penicillin G Pcn [Penicillins] Rash Medications: Current Outpatient Medications: albuterol 108 (90 Base) MCG/ACT inhaler, Inhale 2 puffs every 6 hours as needed for wheezing., Disp: , Rfl: cetirizine (ZyrTEC) 10 MG tablet, , Disp: , Rfl: FLUoxetine (PROzac) 10 MG tablet, Take 10 mg by mouth daily., Disp: , Rfl: liraglutide (Victoza) 18 MG/3ML injection, Inject 1.2 mg under the skin daily., Disp: 2 Pen, Rfl: 0 lithium 600 MG capsule, Take 600 mg by mouth 2 times daily. 600 mg in the morning and 600 mg in the evening, Disp: , Rfl: Multiple Vitamins-Iron (MULTIVITAMIN/IRON PO), Take 1 tablet by mouth daily., Disp: , Rfl: propranolol (Inderal) 20 MG tablet, 20 mg in the morning and 20 mg in the evening., Disp: , Rfl: risperiDONE (RisperDAL) 1 MG tablet, Take 1 mg by mouth in the morning and 1 mg at noon and 1 mg in the evening and 1 mg before bedtime., Disp: , Rfl: topiramate 50 MG tablet, Take 50 mg by mouth 1 (one) time each day., Disp: , Rfl: VITAMIN D PO, Take 5,000 Int'l Units by mouth every 7 days., Disp: , Rfl: Review of Systems: Review of Systems Constitutional: Negative for chills and fever. Respiratory: Positive for shortness of breath. Negative for cough. Cardiovascular: Negative for chest pain, palpitations and leg swelling. Gastrointestinal: Negative for abdominal pain, blood in stool and vomiting. Genitourinary: Negative for hematuria. Neurological: Negative for dizziness and syncope. Physical Examination: Vitals: Vitals: 09/13/23 1331 BP: 108/74 BP Location: Left arm Patient Position: Sitting BP Cuff Size: Large adult Pulse: 74 SpO2: 99% Weight: 194 lb 4.8 oz (88.1 kg) Height: 4' 8 (1.422 m) Body mass index is 43.56 kg/m . Physical Exam Constitutional: Appearance: Normal appearance. HENT: Head: Normocephalic. Eyes: General: No scleral icterus. Right eye: No discharge. Left eye: No discharge. Cardiovascular: Rate and Rhythm: Normal rate and regular rhythm. Pulses: Normal pulses. Heart sounds: Normal heart sounds. No murmur heard. Pulmonary: Effort: Pulmonary effort is normal. Breath sounds: Normal breath sounds. Abdominal: General: Abdomen is flat. Palpations: Abdomen is soft. Musculoskeletal: General: Normal range of motion. Cervical back: Normal range of motion. Skin: General: Skin is warm and dry. Capillary Refill: Capillary refill takes less than 2 seconds. Neurological: Mental Status: She is alert and oriented to person, place, and time. Psychiatric: Mood and Affect: Mood normal. Laboratory Tests: Lab Results Component Value Date WBC 7.8 05/29/2023 HGB 12.0 05/29/2023 HCT 36.6 05/29/2023 MCV 84.9 05/29/2023 PLT 389 05/29/2023 Lab Results Component Value Date GLUCOSE 92 05/29/2023 CALCIUM 9.3 05/29/2023 NA 139 05/29/2023 K 4.3 05/29/2023 CO2 23 05/29/2023 CL 108 (H) 05/29/2023 BUN 13 05/29/2023 CREATININE 0.75 05/29/2023 Lab Results Component Value Date CHOL 180 05/29/2023 Lab Results Component Value Date TRIG 317 (H) 05/29/2023 Lab Results Component Value Date HDL 33 (L) 05/29/2023 Lab Results Component Value Date LDLCALC 84 05/29/2023 EKG in the office today shows sinus rhythm with frequent PVCs/bigeminy and a heart rate of 74 bpm METS>4 The patient's case was reviewed with the in office physician, Dr. Ananda Kinsey while the patient was in the office. Assessment and Plan: Frequent PVCs/bigeminy-the patient was advised to undergo 24-hour Holter monitor testing to assess overall PVC burden. She also reports shortness of breath with activities. She is to also undergo an echocardiogram to rule out underlying structural abnormalities. Recent electrolytes and thyroid function were within normal range on laboratory data testing. She is already taking beta-asael therapy/propanolol for migraines. She is to return for cardiac reassessment following upcoming cardiac testing. Preoperative cardiac evaluation prior to surgical bariatric intervention-cardiac clearance pending additional cardiac testing/follow-up as outlined above. Prediabetes-followed by the primary care physician. Obesity-currently following with the bariatric clinic with plans for future surgical bariatric intervention. -The patient is to return for cardiac reassessment following upcoming cardiac testing. documented in this encounter [facility] 08-12-2023 Note Addended by: JEREMY HALLMAN on: 08/12/2023 04:20 PM Modules accepted: Orders [facility] 08-12-2023 Note Addended by: LISA RONDON on: 08/12/2023 03:08 PM Modules accepted: Orders [facility] 08-12-2023 Note Addended by: JEREMY HALLMAN on: 08/12/2023 04:20 PM Modules accepted: Orders [facility] 08-12-2023 Telephone encounter Note Signed. [facility] 08-12-2023 Note [facility] WE[facility] MANAG[facility] PRO[facility] PROGRESS NOTE FOLLOW UP Patient: Ana Hernandez Date of : 2000 Service Date: 08/12/2023 [place] Visit number: 3 of 3 Pre Program Weight Metrics Date of Initial Consultation:@FLOWLAST(8961)@ Initial Weight: @FLOWLAST([id number])@ Initial BMI: @FLOWLAST([id number])@ [place] Body Weight: @FLOWLAST([id number])@ Excess Body Weight: @FLOWLAST([id number])@ Follow Up Weight Metrics Last Three Weights Including Today's Weight: Wt Readings from Last 3 Encounters: 08/12/23 196 lb (88.9 kg) 07/15/23 192 lb 6.4 oz (87.3 kg) 06/19/23 189 lb 12.8 oz (86.1 kg) Today's BMI: BMI: 43.94 %EBWL: % EBWL: -8% Weight Chance Since Last Visit: Weight Change: 3.6 lbs Weight Change from Initial DE/SPR Weight: Total Weight Change: 6 lbs Patient has the following question(s): none Falls Risk Assessment Patient doestake medications which affect BP or mental status Patient does not have newly prescribed or changed dosage of medications within past 30 days which affect BP or mental status Patient has not fallen in the past 2 months Patient does notdemonstrate unsteady gait Patient uses the following ambulatory assistive devices: nonen Patient states the presence of the following traits which increases risk of fall: one Patient is not on home O2 Completed by: Ling Pritchett MA [facility] 08-12-2023 Note Addended by: LISA RONDON on: 08/12/2023 03:08 PM Modules accepted: Orders T [facility] 08-12-2023 Telephone encounter Note Nicotine please [facility] 08-12-2023 History of Present illness Narrative [facility] WEIGHT LOSS MANAGEMENT PROGRAM PROGRESS NOTE FOLLOW UP Patient: Ana Hernandez Date of : 2000 Service Date: 08/12/2023 [place] Visit number: 3 of 3 Pre Program Weight Metrics Date of Initial Consultation:@FLOWLAST(8961)@ Initial Weight: @FLOWLAST([id number])@ Initial BMI: @FLOWLAST([id number])@ [place] Body Weight: @FLOWLAST([id number])@ Excess Body Weight: @FLOWLAST([id number])@ Follow Up Weight Metrics Last Three Weights Including Today's Weight: Wt Readings from Last 3 Encounters: 08/12/23 196 lb (88.9 kg) 07/15/23 192 lb 6.4 oz (87.3 kg) 06/19/23 189 lb 12.8 oz (86.1 kg) Today's BMI: BMI: 43.94 %EBWL: % EBWL: -8% Weight Chance Since Last Visit: Weight Change: 3.6 lbs Weight Change from Initial DE/SPR Weight: Total Weight Change: 6 lbs Patient has the following question(s): none Falls Risk Assessment Patient doestake medications which affect BP or mental status Patient does not have newly prescribed or changed dosage of medications within past 30 days which affect BP or mental status Patient has not fallen in the past 2 months Patient does notdemonstrate unsteady gait Patient uses the following ambulatory assistive devices: nonen Patient states the presence of the following traits which increases risk of fall: one Patient is not on home O2 Completed by: Ling Pritchett MA [facility] - SURGICAL WEIGHT LOSS MANAGEMENT PROGRAM PHYSICIAN SUPERVISED DIET AND EXERCISE SURGICAL PREPARATORY REGIMEN - FOLLOW UP Patient is here today for follow up of their physician supervised diet and exercise in preparation for weight loss surgery Weight trend since last visit: gained 4 pounds. This patient's excess weight is causing the following co-morbid conditions at this time: GERD and Other pre-diabetes The patient does not have any acute complaints. Physical Examination: BP 110/74 Pulse 80 Resp 16 Ht 4' 8 (1.422 m) Wt 196 lb (88.9 kg) BMI 43.94 kg/m Awake, alert, and oriented, no apparent distress. No respiratory distress, no conversational dyspnea Neurologic: Intact x 4 extremities, no focal deficits notes. No slurred speech Ambulatory without assistance. Assessment of Current Diet and Exercise Current Diet After dinner / night eating: none Breakfast: daily (shakes) Carbohydrate with protein: yes Cravings: occasional Sugar sweetened beverages: increasing water Plan: -----Obesity Class III, Elevated BMI Diet and exercise (DE) Following with bariatric surgery Advised patient that they must adhere to regular monthly visits to meet the requirements of the insurance company. Additionally, they must demonstrate meal plan adoption to show readiness for the changes that will be required following surgery. Diet recommendations provided to patient verbally and in the form of handouts; they understood and agreed with plan. -continue Topamax (per psychiatry) -Yemi and Ellen not covered by insurance (prescribed by PCP). -Tolerating Victoza well, no significant side effects -given tolerance to low dose Victoza, a shared decision was made to increase the dosage -Follow up in 1 month to assess side effects -discussed stopping Victoza 3 weeks prior to surgery, Ms Hernandez understood and agreed --Pre-Diabetes: continue [place] plan --Depression: mood improved with adjusted medications per psychiatry [place] levels can increase after surgery --Sleep: snoring, required pulmonology clearance prior to surgery -- counseling: IUD --Labs (05/2023) reviewed Advised patient to continue to adhere to regular monthly visits to meet the requirements of the insurance company. Additionally, they must adopt meal plan recommendations to demonstrate readiness for the changes that will be required following surgery. Patient's eating behaviors does demonstrates adoption of eating plan recommendations. Physician diet recommendations provided to the patient. Plan of care discussed with patient, all questions answered, they agree with plan of care. Medical decision making: Patient's medical conditions place them at a moderate risk of complications, morbidity, and mortality. Patient: [] To return in one month for follow up [x] Has completed insurance required monthly diet and exercise series [] Needs to continue monthly visits until authorization/surgery date obtained. ([place]) No orders of the defined types were placed in this encounter. Current Meds Patient's Medications New Prescriptions No medications on file Previous Medications ALBUTEROL 108 (90 BASE) MCG/ACT INHALER Inhale 2 puffs every 6 hours as needed for wheezing. LIRAGLUTIDE (VICTOZA) 18 MG/3ML INJECTION Inject 0.6 mg under the skin daily. LITHIUM 300 MG CAPSULE Take 300 mg by mouth in the morning and 300 mg at noon and 300 mg in the evening and 300 mg before bedtime. MULTIPLE VITAMINS-IRON (MULTIVITAMIN/IRON PO) Take 1 tablet by mouth daily. PROPRANOLOL (INDERAL) 20 MG TABLET RISPERIDONE (RISPERDAL) 1 MG TABLET Take 1 mg by mouth 2 times daily. TOPIRAMATE (TOPAMAX) 25 MG TABLET Take by mouth 2 times daily. VITAMIN D PO Take 5,000 Int'l Units by mouth daily. Modified Medications No medications on file Discontinued Medications No medications on file I reviewed all of the patient's medications and diagnoses listed in Epic. documented in this encounter [facility] 07-22-2023 Note Addended by: BELGICA STRANGE on: 07/22/2023 02:28 PM Modules accepted: Orders [facility] 07-22-2023 Note Addended by: BELGICA STRANGE on: 07/22/2023 02:28 PM Modules accepted: Orders [facility] 07-22-2023 Miscellaneous Notes Addended by: BELGICA STRANGE on: 07/22/2023 02:28 PM Modules accepted: Orders documented in this encounter [facility] 07-22-2023 History of Present illness Narrative [facility] PSYCHI[facility] PROGRESS NOTE 07/22/2023 Ana Hernandez, a 23 y.o. female, for follow-up visit for schizoaffective disorder, bipolar type. Patient is referred by No, Physician . Interval History: Ana is here with her and child today. She is feeling much better since the medication adjustment. She is now on a weight loss GLP-1 agonist medication which can affect her lithium level. We agreed to a lithium level check today. Her depression has cleared. She is having problems with racing thoughts which prevent her falling asleep. Agreed to an increase in risperidone dosage. No suicidal thoughts. PFSH: Past Medical History: Diagnosis Date Asthma Diabetes mellitus (HCC) Social History Substance and Sexual Activity Alcohol Use Never Social History Substance and Sexual Activity Drug Use Never Social History Substance and Sexual Activity Sexual Activity Yes Partners: Male control/protection: I.U.D. Comment: will have IUD after medically cleared from having baby Family History Adopted: Yes Family history unknown: Yes The following portions of the patient's history were reviewed and updated as appropriate: allergies, current medications, past family history, past medical history, past social history, past surgical history, and problem list. Review of Systems Physical Exam PSYCHIATRIC EXAM: Grooming & Hygiene: well groomed General Behavior: pleasant & cooperative Psychomotor Activity: no psychomotor abnormalities Speech: WNL Flow to Thought: logical & goal directed Thought Associations: Intact Content of Thought: No evidence of suicidal idealizations / homicidal idealizations / delusions / obsessions Mood: Much better Affect: full range Insight: intact Judgment: good Orientation: alert and oriented to person, place, time Memory: Recent intact Attention: intact Concentration: intact Language: WNL Fund of Knowledge: intact Labs/ Diagnostic Imaging reviewed: TSH= 2.68 on 05-29-2023 Response to Medication: Good ASSESSMENT AND PLAN: A: Schizoaffective Disorder, bipolar type P: Increase risperidone to 2 mg bid. Continue other medications. Follow-up plan was discussed with patient. Impression/ Plan: No Changes Falls Of Rough I: Schizoaffective Disorder Falls [place] II: Deferred [place] III: see problem list [place] IV: occupational problems, other psychosocial or environmental problems, and problems with primary support group [place] V: 61-70 mild symptoms Recommendations: RTC 8 weeks Review with patient: Treatment plan reviewed with the patient. Medication risks/benefit reviewed with the patient Total Time: 25 mins >50% time counseling or coordinating care DIAGNOSIS: F25.0 patient has been informed of the benefits, risks, possible side effects and alternatives to the medical treatment listed above and have expressed understanding Total Time: 25 mins __ >50% time counseling or coordinating care Belgica Strange documented in this encounter [facility] 07-20-2023 Note HNO ID: [id number] Author: aMgda Guzman APRN.VITOR Service: ? Author Type: Nurse Practitioner Type: Progress Notes Filed: 07/20/2023 2:18 PM Note Text: This note was created using [employer]. Subjective Ana Hernandez is a 23 year old female. 23 year old female with no PMH presents for complaints of knee pain. Acute onset yesterday Left knee Denies known trauma or injury. Feels swollen Denies skin rash or lesions. Denies numbness or tingling. Endorses that she noted catching and shooting pain with ascending and descending stairs. 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 The history is provided by the patient. No russian language professor was used. Right knee injury: No Right knee condition: Acute Right knee severity: Moderate Right knee progression: Stable Patient reports that right knee feels stable. Patient reports feeling right knee catching. Patient reports feeling right knee not locking and not popping. Right job related: No ORTHO HPI Knee aggravating factors right: Ascending and descending stairs. Right knee alleviating factors: None. PAST MEDICAL HISTORY Diagnosis Date Asthma Concussion 10/12 seizure like activity, knocked out. 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 PAST SURGICAL HISTORY Procedure Laterality Date ADENOIDECTOMY HX APPENDECTOMY 10/09 MYRINGOTOMY HX PAST SURGICAL HISTORY OF tubes in ears x 4 PAST SURGICAL HISTORY OF adnoidectomy ALLERGIES Omnicef [Cefdinir], Penicillins, Prozac [Fluoxetine Hcl], and Seasonal Allergies MEDICATIONS VICTOZA 2-SARAH 0.6 mg/0.1 mL (18 mg/3 mL) Inject 0.6 mg under the skin daily. LORazepam (ATIVAN) 1 mg tablet metoclopramide HCl (REGLAN) 10 mg tablet Take 10 mg by mouth. ondansetron orally disintegrating (ZOFRAN ODT) 4 mg disintegrating tablet Take 4 mg by mouth. meclizine (ANTIVERT) 25 mg tab risperiDONE (RISPERDAL) 1 mg tablet topiramate (TOPAMAX) 50 mg tablet lithium carbonate (ESKALITH) 300 mg capsule Take 300 mg by mouth three times daily with meals. PROAIR RESPICLICK 90 mcg/actuation aepb Inhale 2 Puffs as instructed every 4 hours as needed. CALCIUM CARBONATE/VITAMIN D3 (VITAMIN D-3 ORAL) Take by mouth 3 times a WEEK. + Nebulizer Supplies Nebulizer, Mask, AND O2 Tubing. Use as directed. blood sugar diagnostic (FREESTYLE LITE STRIPS) test strip Check BG atleast 2 times daily and also when does not feel well. Lancets (FREESTYLE LANCETS) lancets Check BG 3-4 times daily nebulizer accessories(OPTICHAMBER MEDIUM FACE MASK) use with albuterol ferrous sulfate 325 mg (65 mg iron) EC tablet Take 325 mg by mouth. (Patient not taking: Reported on 07/20/2023) FLUoxetine (PROZAC) 10 mg capsule escitalopram oxalate (LEXAPRO) 10 mg tablet Take 1 tablet by mouth once daily. (Patient not taking: Reported on 03/05/2023) azithromycin (ZITHROMAX) 250 mg tablet (Patient not taking: Reported on 03/05/2023) mometasone-formoterol (DULERA) 100-5 mcg/actuation inhaler Inhale 2 Puffs as instructed twice daily. (Patient not taking: Reported on 01/15/2020 ) oral electrolytes tab (THERMOTABS) 287-180-15 mg tab Take 2 thermotabs bid po (Patient not taking: Reported on 12/30/2018 ) metFORMIN (GLUCOPHAGE) 500 mg tablet Take 1 tablet by mouth twice daily with meals. (Patient not taking: Reported on 01/15/2020 ) oxybutynin XL (DITROPAN XL) 5 mg 24 hr tablet Take 1 tablet by mouth once daily. (Patient not taking: Reported on 11/04/2018 ) predniSONE (DELTASONE) 20 mg tablet Lcylibbzaetgmsn-Vsmsoxvfy-ZN (BROMFED DM) 2-30-10 mg/5 mL syrup Take 5 mL by mouth four times daily as needed. (Patient not taking: Reported on 11/04/2018 ) ibuprofen (MOTRIN) 600 mg tablet Take 1 tablet by mouth every 6 hours as needed for Pain. meloxicam (MOBIC) 15 mg tablet Take 1 tablet by mouth once daily. (Patient not taking: Reported on 11/04/2018 ) fluticasone (FLONASE) 50 mcg/actuation nasal spray Use 2 Sprays in each nostril once daily. (Patient not taking: Reported on 12/30/2018 ) albuterol (PROVENTIL) 2.5 mg /3 mL (0.083 %) nebulizer solution Use 3 mL via nebulizer every 4 hours as needed. OVER 5-15 MINUTES. FOR WHEEZING AND SHORTNESS OF BREATH. albuterol HFA (PROAIR HFA) 90 mcg/actuation inhaler Inhale 2 Puffs as instructed every 4 hours as needed. triamcinolone (KENALOG) 0.1 % lotion Apply 1 application to affected area twice daily. (Patient not taking: Reported on 11/04/2018 ) FAMILY HISTORY Adopted: Yes Problem Relation Age of Onset other (aids) Mother biological mom Social History Tobacco Use Smoking status: Never Passive exposure: Yes Smokeless to (more content not included)... [facility] 07-20-2023 Instructions Magda Guzman APRN.CNP - 07/20/2023 1:52 PM EDT R.I.C.E. The general care of your injury includes the following: Resting, Icing, Compressing and Elevating the injured area. Remember this as RICE. REST: Limit the use of the injured body part. ICE: By applying ice to the affected area, swelling and pain can be reduced. Place some ice cubes in a re-sealable (Ziploc) bag and add some water. Put a thin washcloth between the bag and your skin. Apply the ice bag to the area for at least 20 minutes. Do this at least 4 times per day. Using the ice for longer times and more frequently is OK. NEVER APPLY ICE DIRECTLY TO THE SKIN. COMPRESS: Compression means to apply pressure around the injured area such as with a splint, cast or an archie bandage. Compression decreases swelling and improves comfort. Compression should be tight enough to relieve swelling but not so tight as to decrease circulation. Increasing pain, numbness, tingling, or change in skin color, are all signs of decreased circulation. ELEVATE: Elevate the injured part. For example, elevate your foot by placing it on a chair while sitting, or propping it up on pillows when lying down. documented in this encounter [facility] 07-20-2023 History of Present illness Narrative This note was created using NoteWriter. Subjective Ana Hernandez is a 23 year old female. 23 year old female with no PMH presents for complaints of knee pain. Acute onset yesterday Left knee Denies known trauma or injury. Feels swollen Denies skin rash or lesions. Denies numbness or tingling. Endorses that she noted catching and shooting pain with ascending and descending stairs. 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 The history is provided by the patient. No russian language professor was used. Right knee injury: No Right knee condition: Acute Right knee severity: Moderate Right knee progression: Stable Patient reports that right knee feels stable. Patient reports feeling right knee catching. Patient reports feeling right knee not locking and not popping. Right job related: No ORTHO HPI Knee aggravating factors right: Ascending and descending stairs. Right knee alleviating factors: None. PAST MEDICAL HISTORY Diagnosis Date Asthma Concussion 10/12 seizure like activity, knocked out. 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 PAST SURGICAL HISTORY Procedure Laterality Date ADENOIDECTOMY HX APPENDECTOMY 10/09 MYRINGOTOMY HX PAST SURGICAL HISTORY OF tubes in ears x 4 PAST SURGICAL HISTORY OF adnoidectomy ALLERGIES Omnicef [Cefdinir], Penicillins, Prozac [Fluoxetine Hcl], and Seasonal Allergies MEDICATIONS VICTOZA 2-SARAH 0.6 mg/0.1 mL (18 mg/3 mL) Inject 0.6 mg under the skin daily. LORazepam (ATIVAN) 1 mg tablet metoclopramide HCl (REGLAN) 10 mg tablet Take 10 mg by mouth. ondansetron orally disintegrating (ZOFRAN ODT) 4 mg disintegrating tablet Take 4 mg by mouth. meclizine (ANTIVERT) 25 mg tab risperiDONE (RISPERDAL) 1 mg tablet topiramate (TOPAMAX) 50 mg tablet lithium carbonate (ESKALITH) 300 mg capsule Take 300 mg by mouth three times daily with meals. PROAIR RESPICLICK 90 mcg/actuation aepb Inhale 2 Puffs as instructed every 4 hours as needed. CALCIUM CARBONATE/VITAMIN D3 (VITAMIN D-3 ORAL) Take by mouth 3 times a WEEK. + Nebulizer Supplies Nebulizer, Mask, & O2 Tubing. Use as directed. blood sugar diagnostic (FREESTYLE LITE STRIPS) test strip Check BG atleast 2 times daily and also when does not feel well. Lancets (FREESTYLE LANCETS) lancets Check BG 3-4 times daily nebulizer accessories(OPTICHAMBER MEDIUM FACE MASK) use with albuterol ferrous sulfate 325 mg (65 mg iron) EC tablet Take 325 mg by mouth. (Patient not taking: Reported on 07/20/2023) FLUoxetine (PROZAC) 10 mg capsule escitalopram oxalate (LEXAPRO) 10 mg tablet Take 1 tablet by mouth once daily. (Patient not taking: Reported on 03/05/2023) azithromycin (ZITHROMAX) 250 mg tablet (Patient not taking: Reported on 03/05/2023) mometasone-formoterol (DULERA) 100-5 mcg/actuation inhaler Inhale 2 Puffs as instructed twice daily. (Patient not taking: Reported on 01/15/2020 ) oral electrolytes tab (THERMOTABS) 287-180-15 mg tab Take 2 thermotabs bid po (Patient not taking: Reported on 12/30/2018 ) metFORMIN (GLUCOPHAGE) 500 mg tablet Take 1 tablet by mouth twice daily with meals. (Patient not taking: Reported on 01/15/2020 ) oxybutynin XL (DITROPAN XL) 5 mg 24 hr tablet Take 1 tablet by mouth once daily. (Patient not taking: Reported on 11/04/2018 ) predniSONE (DELTASONE) 20 mg tablet Lodpfbligifwrto-Hsnlgwutj-QK (BROMFED DM) 2-30-10 mg/5 mL syrup Take 5 mL by mouth four times daily as needed. (Patient not taking: Reported on 11/04/2018 ) ibuprofen (MOTRIN) 600 mg tablet Take 1 tablet by mouth every 6 hours as needed for Pain. meloxicam (MOBIC) 15 mg tablet Take 1 tablet by mouth once daily. (Patient not taking: Reported on 11/04/2018 ) fluticasone (FLONASE) 50 mcg/actuation nasal spray Use 2 Sprays in each nostril once daily. (Patient not taking: Reported on 12/30/2018 ) albuterol (PROVENTIL) 2.5 mg /3 mL (0.083 %) nebulizer solution Use 3 mL via nebulizer every 4 hours as needed. OVER 5-15 MINUTES. FOR WHEEZING AND SHORTNESS OF BREATH. albuterol HFA (PROAIR HFA) 90 mcg/actuation inhaler Inhale 2 Puffs as instructed every 4 hours as needed. triamcinolone (KENALOG) 0.1 % lotion Apply 1 application to affected area twice daily. (Patient not taking: Reported on 11/04/2018 ) FAMILY HISTORY Adopted: Yes Problem Relation Age of Onset other (aids) Mother biological mom Social History Tobacco Use Smoking status: Never Passive exposure: Yes Smokeless tobacco: Never Tobacco comments: brother smokes outside Substance Use Topics Alcohol use: No Drug use: No Review of Systems Constitutional: Negative for activity change, appetite change and chills. Eyes: Negative for pain, discharge and itching. Respiratory: Negative for apnea, cough, choking and chest tightness. Cardiovascular: Negative for chest pain, palpitations and leg swelling. Gastrointestinal: Negative for abdominal pain, diarrhea, nausea and vomiting. Musculoskeletal: Negative for arthralgias, back pain and joint swelling. Left knee pain Skin: Negative for color change, pallor, rash and wound. Allergic/Immunologic: Negative for environmental allergies, food allergies and immunocompromised state. Neurological: Negative for dizziness, facial asymmetry, light-headedness, numbness and headaches. Hematological: Negative for adenopathy. Does not bruise/bleed easily. Psychiatric/Behavioral: Negative for agitation and behavioral problems. Objective BP 122/80 Pulse 103 Temp 37.1 C (98.8 F) (Tympanic) Resp 18 Wt 88.3 kg (194 lb 9.6 oz) LMP 02/17/2023 (Exact Date) SpO2 99% Physical Exam Vitals and nursing note reviewed. Constitutional: General: She is not in acute distress. Appearance: Normal appearance. She is obese. She is not ill-appearing, toxic-appearing or diaphoretic. HENT: Head: Normocephalic and atraumatic. Right Ear: Ear canal and external ear normal. Left Ear: Ear canal and external ear normal. Nose: Nose normal. No congestion or rhinorrhea. Mouth/Throat: Mouth: Mucous membranes are moist. Pharynx: No oropharyngeal exudate or posterior oropharyngeal erythema. Eyes: General: Right eye: No discharge. Left eye: No discharge. Extraocular Movements: Extraocular movements intact. Conjunctiva/sclera: Conjunctivae normal. Pupils: Pupils are equal, round, and reactive to light. Cardiovascular: Rate and Rhythm: Normal rate and regular rhythm. Pulses: Normal pulses. Heart sounds: Normal heart sounds. No murmur heard. No friction rub. Pulmonary: Effort: Pulmonary effort is normal. No respiratory distress. Breath sounds: Normal breath sounds. No stridor. No wheezing, rhonchi or rales. Chest: Chest wall: No tenderness. Abdominal: General: Abdomen is flat. There is no distension. Palpations: Abdomen is soft. There is no mass. Tenderness: There is no abdominal tenderness. There is no right CVA tenderness, left CVA tenderness, guarding or rebound. Hernia: No hernia is present. Musculoskeletal: General: No swelling, tenderness, deformity or signs of injury. Normal range of motion. Cervical back: Normal range of motion and neck supple. No rigidity. Right lower leg: No edema. Left lower leg: No edema. Comments: Left knee with full flexion and extension, But feels catching with flexion Skin intact No TTP. Negative vagus. Negative valus. +neuro +sensation Lymphadenopathy: Cervical: No cervical adenopathy. Skin: General: Skin is warm and dry. Coloration: Skin is not jaundiced or pale. Findings: No bruising, erythema, lesion or rash. Neurological: General: No focal deficit present. Mental Status: She is alert and oriented to person, place, and time. Cranial Nerves: No cranial nerve deficit. Sensory: No sensory deficit. Motor: No weakness. Coordination: Coordination normal. Gait: Gait normal. Psychiatric: Mood and Affect: Mood normal. Behavior: Behavior normal. Thought Content: Thought content normal. Judgment: Judgment normal. Assessment and Plan ASSESSMENT/PLAN: 1. Acute pain of left knee - ICD9: 719.46, ICD10: M25.562 Acute onset yesterday No known trauma or injury. No rd flags - XR KNEE GENERAL 4V AP BOTH/PA BOTH/LAT/MERC LEFT-no xray at time of exam. 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 documented in this encounter [facility] 07-15-2023 Note [facility] SURGICAL WEIGHT LOSS MANAGEMENT PROGRAM PROGRESS NOTE FOLLOW UP Patient: Ana Hernandez Date of : 2000 Service Date: 07/15/2023 DE Visit number: 2 of 3 Pre Program Weight Metrics Date of Initial Consultation:@FLOWLAST([id number])@ Initial Weight: @FLOWLAST([id number])@ Initial BMI: @FLOWLAST([id number])@ [place] Body Weight: @FLOWLAST([id number])@ Excess Body Weight: @FLOWLAST([id number])@ Follow Up Weight Metrics Last Three Weights Including Today's Weight: Wt Readings from Last 3 Encounters: 07/15/23 192 lb 6.4 oz (87.3 kg) 06/19/23 189 lb 12.8 oz (86.1 kg) 06/13/23 190 lb (86.2 kg) Today's BMI: BMI: 43.13 %EBWL: % EBWL: -3% Weight Chance Since Last Visit: Weight Change: 2.4 lbs Weight Change from Initial DE/SPR Weight: Total Weight Change: 2.4 lbs Patient has the following question(s): none Falls Risk Assessment Patient doestake medications which affect BP or mental status Patient does have newly prescribed or changed dosage of medications within past 30 days which affect BP or mental status Patient has not fallen in the past 2 months Patient does notdemonstrate unsteady gait Patient uses the following ambulatory assistive devices: none Patient states the presence of the following traits which increases risk of fall: none Patient is not on home O2 Completed by: Cinthya Agee MA [facility] 07-15-2023 History of Present illness Narrative [facility]GICAL WEIGHT LOSS MANAGEMENT PROGRAM PROGRESS NOTE FOLLOW UP Patient: Ana Hernandez Date of : 2000 Service Date: 07/15/2023 [place] Visit number: 2 of 3 Pre Program Weight Metrics Date of Initial Consultation:@FLOWLAST([id number])@ Initial Weight: @FLOWLAST([id number])@ Initial BMI: @FLOWLAST([id number])@ [place] Body Weight: @FLOWLAST([id number])@ Excess Body Weight: @FLOWLAST([id number])@ Follow Up Weight Metrics Last Three Weights Including Today's Weight: Wt Readings from Last 3 Encounters: 07/15/23 192 lb 6.4 oz (87.3 kg) 06/19/23 189 lb 12.8 oz (86.1 kg) 06/13/23 190 lb (86.2 kg) Today's BMI: BMI: 43.13 %EBWL: % EBWL: -3% Weight Chance Since Last Visit: Weight Change: 2.4 lbs Weight Change from Initial DE/SPR Weight: Total Weight Change: 2.4 lbs Patient has the following question(s): none Falls Risk Assessment Patient doestake medications which affect BP or mental status Patient does have newly prescribed or changed dosage of medications within past 30 days which affect BP or mental status Patient has not fallen in the past 2 months Patient does notdemonstrate unsteady gait Patient uses the following ambulatory assistive devices: none Patient states the presence of the following traits which increases risk of fall: none Patient is not on home O2 Completed by: Cinthya Agee MA [facility] - SURGICAL WEIGHT LOSS MANAGEMENT PROGRAM PHYSICIAN SUPERVISED DIET AND EXERCISE SURGICAL PREPARATORY REGIMEN - FOLLOW UP Patient is here today for follow up of their physician supervised diet and exercise in preparation for weight loss surgery. Weight trend since last visit: gained 3 pounds This patient's excess weight is causing the following co-morbid conditions at this time: GERD and Other pre-diabetes The patient does not have any acute complaints. Physical Examination: BP 130/84 Pulse (!) 111 Ht 4' 8 (1.422 m) Wt 192 lb 6.4 oz (87.3 kg) BMI 43.14 kg/m Awake, alert, and oriented, no apparent distress. No respiratory distress, no conversational dyspnea Cardiology: regular rate and rhythm, no murmurs, Heart rate 90s on exam Neurologic: Intact x 4 extremities, no focal deficits notes. No slurred speech Ambulatory without assistance. 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 Additionally, they must demonstrate meal plan adoption to show readiness for the changes that will be required following surgery. Diet recommendations provided to patient verbally and in the form of handouts; they understood and agreed with plan. -continue Topamax (per psychiatry) -Wegovy and Mounjaro not covered by insurance (prescribed by PCP). Ms. Hernandez states her insurance recommended Victoza A shared decision was made to start Victoza (GLP-1 agonist). Risks/benefits discussed in detail. The patient understood and agrees with plan. Risks including but not limited to the following were discussed: -Constipation, nausea/vomiting, abdominal pain, diarrhea -Acute kidney injury -Pancreatitis - denies -Medullary thyroid cancer / Multiple endocrine neoplasia 2 (MEN2) syndrome (personal or family history) - denies -Hypoglycemia - patient understood -increased incidence diabetic retinopathy -gallbladder disease -may alter absorption of other meds -may also cause other rare side effects (such as low blood pressure, alopecia, rash/hives, blindness, dizziness) -GLP-1 agonists with other weight loss medications - efficacy/safety not established -Increased concentration with sleeve and RYGB -stop 2-3 weeks prior to gastric bypass surgery -Not in /planning -The patient verbalized understanding of the above and agrees with the plan. --Pre-Diabetes: continue DE plan --Depression: mood improved with adjusted medications per psychiatry Discussed lithium levels can increase after surgery, Ms. Hernandez understood and will discuss with her psychiatrist --Sleep: snoring, required pulmonology clearance prior to surgery -- counseling: IUD --Labs (05/2023) reviewed Plan of care discussed with patient, all questions answered, they agree with plan of care. Patient to return for follow up in one month. Advised patient to continue to adhere to regular monthly visits to meet the requirements of the insurance company. Additionally, they must adopt meal plan recommendations to demonstrate readiness for the changes that will be required following surgery. Patient's eating behaviors does demonstrates adoption of eating plan recommendations. Physician diet recommendations provided to the patient. Plan of care discussed with patient, all questions answered, they agree with plan of care. Medical decision making: Patient's medical conditions place them at a moderate risk of complications, morbidity, and mortality. Patient: [x] To return in one month for follow up [] Has completed insurance required monthly diet and exercise series [] Needs to continue monthly visits until authorization/surgery date obtained. ([place]) No orders of the defined types were placed in this encounter. Current Meds Patient's Medications New Prescriptions No medications on file Previous Medications ALBUTEROL 108 (90 BASE) MCG/ACT INHALER Inhale 2 puffs every 6 hours as needed for wheezing. LITHIUM 300 MG CAPSULE Take 300 mg by mouth in the morning and 300 mg at noon and 300 mg in the evening and 300 mg before bedtime. MULTIPLE VITAMINS-IRON (MULTIVITAMIN/IRON PO) Take 1 tablet by mouth daily. RISPERIDONE (RISPERDAL) 1 MG TABLET Take 1 mg by mouth 2 times daily. TOPIRAMATE (TOPAMAX) 25 MG TABLET Take by mouth 2 times daily. VITAMIN D PO Take 5,000 Int'l Units by mouth daily. Modified Medications No medications on file Discontinued Medications No medications on file I reviewed all of the patient's medications and diagnoses listed in Epic. documented in this encounter [facility] 06-26-2023 Telephone encounter Note UGI shows HH but no reflux. My chart message to pt. CCN updated. [facility] 06-19-2023 History of Present illness Narrative [facility] BARIATRIC NUTRITION ASSESSMENT / DIET & EXERCISE SURGICAL WEIGHT LOSS MANAGEMENT PROGRAM Date: 06/19/23 Patient Name: Ana Hernandez Date of : 2000 Type of Assessment: [x] Surgical Patient - Pre-op Initial Assessment Weight Metrics: Today's Height: 4' 8 (1.422 m) Today's Weight: 189 lb 12.8 oz (86.1 kg) Today's BMI: Body mass index is 42.55 kg/m . Surgeon: Dr. Fritz Surgical Procedure: [x] Sleeve Gastrectomy Preop Diet: 2 wks Medical History: Past Medical History: Diagnosis Date Anesthesia complication Anxiety Asthma Depression BIGGS (dyspnea on exertion) Fatigue GERD (gastroesophageal reflux disease) History of UTI Memory difficulty Morbid obesity, unspecified obesity type (HCC) Prediabetes Snoring Current Medications: has a current medication list which includes the following prescription(s): albuterol, lithium, multiple vitamins-iron, and vitamin d. Weight History Patient has been considering weight loss surgery for 2 years Primary reason(s) for weight loss permanent wt loss; improve energy levels; improve health; improve mobility Number of years over weight 2 PREVIOUS WEIGHT LOSS ATTEMPTS Method When Amount lost Amount regained Most successful RD tx Cpl mo ago Post Weight Loss Surgery- Type: Patient's current diet quality, relative to the Past weight loss surgery diet is: [x] N/A CURRENT MEAL PLANNING Mom Spouse Significant Other Meals planned by X X Food shopping done by X X Meals cooked by X X CURRENT EATING BEHAVIORS: Doesn't eat when stressed EXERCISE/CURRENT ACTIVITY ADLs; stands all day at work; also has 1.5 year old son CURRENT EATING HABITS/ADDITIONAL INFORMATION 24 Hour Recall completed: Yes Breakfast: sausage McMuffin-no egg, just sausage and cheese (may skip breakfast most days of week) Lunch: chicken nugget, wasserman, small pop or 2 egg rolls + pop Dinner: ham, scalloped potatoes Snack: salad-small amt cheese + west Drinks: 1-2 Coke/day; used to be 4-5/day Comments: black coffee-cold brew-small size or small mocha frappe occasionally; no juice; no etoh SUPPORT SYSTEM A. Family knowledgeable about/supportive of plans for weight loss surgery: Yes B. Patient understands that they must have someone in their home 24/ for the first week following surgery, or that they must be able to stay with someone for the first week Yes C. Co-workers knowledgeable about/supportive of plans for weight loss surgery: Yes KNOWLEDGE AND EDUCATION ASSESSMENT AND PLAN Patient's level of knowledge regarding the changes that will have to be made in their diet following weight loss surgery is: [x] Excellent - patient is well informed. Current eating practices that will require change with surgery: Increase meal frequency RECOMMENDATIONS AND PLAN [x] Educational Materials Provided [x]Strategies for Eating handout given to and discussed with patient [x] Patient cleared for weight loss surgery Patient able to state major diet changes that need to be made following surgery Patient states/demonstrates readiness to make necessary diet changes Diagnoses: Prediabetes Note: Pt and mom present for initial BNA. Pt has completed 1 of 3 D/E. Mom had open WLS years ago (in [place]). Per diet recall and pt interview, pt skips breakfast most days per week. Pt has decreased pop from 4-5 per day to 1-2 per day. Pt working to increase water and decrease caffeine. Exercise limited, however, pt active with ADLs and on feet at job. Current labs N/A-will monitor. Reviewed BNA packet and rationale for post-op bariatric diet protocol. Pt agreeable to, and aided in developing, the goals as noted below. Pt cleared by nutrition for WLS. Pt informed at time of visit. Goals: Include breakfast q day: Croatian yogurt, protein shakes, pb on 1 sl wheat toast Continue increasing water to goal of 64 oz/day Continue decreasing caffeine, to eliminate Continue decreasing carbonation, to eliminate Materials Provided: BNA packet CHO+Pro Snack List Grocery Store List Follow up: PRN Pt encouraged to call/MyChart with questions. Bariatric Nutrition Assessment completed by: Ling Arriaga RD documented in this encounter [facility] 06-19-2023 History of Present illness Narrative [facility] BARIATRIC NUTRITION ASSESSMENT / DIET & EXERCISE SURGICAL WEIGHT LOSS MANAGEMENT PROGRAM Date: 06/19/23 Patient Name: Ana Hernandez Date of : 2000 Type of Assessment: [x] Surgical Patient - Pre-op Initial Assessment Weight Metrics: Today's Height: 4' 8 (1.422 m) Today's Weight: 189 lb 12.8 oz (86.1 kg) Today's BMI: Body mass index is 42.55 kg/m . Surgeon: Dr. Fritz Surgical Procedure: [x] Sleeve Gastrectomy Preop Diet: 2 wks Medical History: Past Medical History: Diagnosis Date Anesthesia complication Anxiety Asthma Depression BIGGS (dyspnea on exertion) Fatigue GERD (gastroesophageal reflux disease) History of UTI Memory difficulty Morbid obesity, unspecified obesity type (HCC) Prediabetes Snoring Current Medications: has a current medication list which includes the following prescription(s): albuterol, lithium, multiple vitamins-iron, and vitamin d. Weight History Patient has been considering weight loss surgery for 2 years Primary reason(s) for weight loss permanent wt loss; improve energy levels; improve health; improve mobility Number of years over weight 2 PREVIOUS WEIGHT LOSS ATTEMPTS Method When Amount lost Amount regained Most successful RD tx Cpl mo ago Post Weight Loss Surgery- Type: Patient's current diet quality, relative to the Past weight loss surgery diet is: [x] N/A CURRENT MEAL PLANNING Mom Spouse Significant Other Meals planned by X X Food shopping done by X X Meals cooked by X X CURRENT EATING BEHAVIORS: Doesn't eat when stressed EXERCISE/CURRENT ACTIVITY ADLs; stands all day at work; also has 1.5 year old son CURRENT EATING HABITS/ADDITIONAL INFORMATION 24 Hour Recall completed: Yes Breakfast: sausage McMuffin-no egg, just sausage and cheese (may skip breakfast most days of week) Lunch: chicken nugget, wasserman, small pop or 2 egg rolls + pop Dinner: ham, scalloped potatoes Snack: salad-small amt cheese + west Drinks: 1-2 Coke/day; used to be 4-5/day Comments: black coffee-cold brew-small size or small mocha frappe occasionally; no juice; no etoh SUPPORT SYSTEM A. Family knowledgeable about/supportive of plans for weight loss surgery: Yes B. Patient understands that they must have someone in their home 24/ for the first week following surgery, or that they must be able to stay with someone for the first week Yes C. Co-workers knowledgeable about/supportive of plans for weight loss surgery: Yes KNOWLEDGE AND EDUCATION ASSESSMENT AND PLAN Patient's level of knowledge regarding the changes that will have to be made in their diet following weight loss surgery is: [x] Excellent - patient is well informed. Current eating practices that will require change with surgery: Increase meal frequency RECOMMENDATIONS AND PLAN [x] Educational Materials Provided [x]Strategies for Eating handout given to and discussed with patient [x] Patient cleared for weight loss surgery Patient able to state major diet changes that need to be made following surgery Patient states/demonstrates readiness to make necessary diet changes Diagnoses: Prediabetes Note: Pt and mom present for initial BNA. Pt has completed 1 of 3 D/E. Mom had open WLS years ago (in [place]). Per diet recall and pt interview, pt skips breakfast most days per week. Pt has decreased pop from 4-5 per day to 1-2 per day. Pt working to increase water and decrease caffeine. Exercise limited, however, pt active with ADLs and on feet at job. Current labs N/A-will monitor. Reviewed BNA packet and rationale for post-op bariatric diet protocol. Pt agreeable to, and aided in developing, the goals as noted below. Pt cleared by nutrition for WLS. Pt informed at time of visit. Goals: Include breakfast q day: Croatian yogurt, protein shakes, pb on 1 sl wheat toast Continue increasing water to goal of 64 oz/day Continue decreasing caffeine, to eliminate Continue decreasing carbonation, to eliminate Materials Provided: BNA packet CHO+Pro Snack List Grocery Store List Follow up: PRN Pt encouraged to call/MyChart with questions. Bariatric Nutrition Assessment completed by: Ling Arriaga RD documented in this encounter [facility] 06-13-2023 History of Present illness Narrative [facility] SURGICAL WEIGHT LOSS MANAGEMENT PROGRAM SUPERVISED DIET AND EXERCISE ROOMING: INITIAL VISIT Patient: Ana Hernandez Date of : 2000 Service Date: 06/13/2023 Patient is here today to initiate physician-supervised diet and exercise as required by their insurance company prior to approval for weight loss surgery. This patient is alone for the evaluation today This is visit 1 of 3 required visits. Weight Metrics: (From Surgical Wet Loss Management) Today's Vital Signs: Non-Surgical Initial Eval Consult Date: 06/13/23 Initial Height: 4' 8 (142.2 cm) Initial Weight: 190 lb (86.2 kg) [place] Body Weight: 112 lb (50.8 kg) Initial BMI: 42.59 Initial Body Fat %: 51.11 EBW: 78 lb (From NonSurgical Weight Loss Tracker) Falls Risk Assessment Patient does take medications which affect BP or mental status Patient does not have newly prescribed or changed dosage of medications within past 30 days which affect BP or mental status Patient has fallen in the past 2 months Patient uses the following ambulatory assistive devices: none Patient states the presence of the following traits which increases risk of fall: none Patient is noton home O2 Completed by: Cinthya Agee [facility] SURGICAL WEIGHT LOSS MANAGEMENT PROGRAM PHYSICIAN SUPERVISED DIET AND EXERCISE SURGICAL PREPARATORY REGIMEN PROGRESS NOTE INITIAL EVALUATION Patient: Ana Hernandez Service Date: 06/13/2023 Date of : 2000 Navigation Plan: Patient History/Assessment Summary: The patient is a pleasant 23 y.o. year old female, who stands Height: 4' 8 (142.2 cm) tall with a weight of Weight: 190 lb (86.2 kg) pounds, resulting in a BMI of Body mass index is 42.6 kg/m . kg/m2. They have been overweight for years, have tried and failed multiple previous diet attempts, and is now in the process of undergoing evaluation for surgical treatment of their severe obesity and GERD and Other pre-diabetes . They are here today to initiate monthly physician supervised diet and exercise as part of their surgical preparatory regimen. The patient does not have any acute complaints. History: Past Medical History: Diagnosis Date Anesthesia complication Anxiety Asthma Depression BIGGS (dyspnea on exertion) Fatigue GERD (gastroesophageal reflux disease) History of UTI Memory difficulty Morbid obesity, unspecified obesity type (HCC) Prediabetes Snoring Past Surgical History: Procedure Laterality Date APPENDECTOMY 2008 SECTION, LOW TRANSVERSE Bilateral TYMPANOSTOMY TUBE PLACEMENT WISDOM TOOTH EXTRACTION 2018 Family History Adopted: Yes Social History Tobacco Use Smoking status: Never Smokeless tobacco: Never Substance Use Topics Alcohol use: Yes Alcohol/week: 1.0 standard drink of alcohol Types: 1 Standard drinks or equivalent per week Current Meds Patient's Medications New Prescriptions No medications on file Previous Medications ALBUTEROL 108 (90 BASE) MCG/ACT INHALER Inhale 2 puffs every 6 hours as needed for wheezing. LITHIUM 300 MG CAPSULE Take 300 mg by mouth in the morning and 300 mg at noon and 300 mg in the evening and 300 mg before bedtime. MULTIPLE VITAMINS-IRON (MULTIVITAMIN/IRON PO) Take 1 tablet by mouth daily. VITAMIN D PO Take 5,000 Int'l Units by mouth daily. Modified Medications No medications on file Discontinued Medications No medications on file This patient's excess weight is causing the following co-morbid conditions at this time:GERD and Other pre-diabetes Initial Diet & Exercise/SPR Visit Weight Metrics: Date of Initial Diet & Exercise Visit: Consult Date: 06/13/23 Initial Weight: Initial Weight: 190 lb (86.2 kg) Initial BMI: Initial BMI: 42.59 [place] Body Weight: [place] Body Weight: 112 lb (50.8 kg) Excess Body Weight: EBW: 78 lb Physical Examination: BP 122/86 Pulse 88 Ht 4' 8 (1.422 m) Wt 190 lb (86.2 kg) BMI 42.60 kg/m General: Alert and oriented x 4, obese, no distress. normocephalic and atraumatic Cardiac: Regular rate and rhythm without evidence of murmur Respiratory: Clear to auscultation bilaterally; No evidence of respiratory distress Musculoskeletal: No edema of extremities, ambulatory without assistance Neurological: Intact x 4 extremities, nonfocal neurologic exam, no focal deficits notes. 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 Comfort foods include:salty foods Pop (2-3 cans daily) Current Activity No structured activity Current Eating Behaviors This patients demonstrates the following behaviors as they relate to eating:eats in response to stress and eats in response to emotions Eats approximately 2 times per day. Plan: --Obesity Class III, Elevated BMI Diet and exercise (DE) Following with bariatric surgery Advised patient that they must adhere to regular monthly visits to meet the requirements of the insurance company. Additionally, they must demonstrate meal plan adoption to show readiness for the changes that will be required following surgery. Diet recommendations provided to patient verbally and in the form of handouts; they understood and agreed with plan. --Discussed blood pressure could decrease with weight loss, potentially resulting in dizziness/lightheadedness (which can result in fall/injury). Patient understood. Adequate hydration and follow up with PCP for abnormal blood pressures - patient understood and agreed. --Pre-Diabetes: Discussed blood glucose could decrease with weight loss. Patient understood. They are aware of symptoms of hypoglycemia and treatment of hypoglycemia. Patient will follow up with their outpatient providers for diabetes management and possible adjustment of medications. --Depression: seeing a marriage counselor, on waiting list for an individual counselor, I offered additional counseling resources, she denies suicidal/homicidal ideation --Sleep: snoring, daytime fatigue, overnight awakening for breath, dangers of untreated sleep apnea before and after surgery discussed, she understood and agreed, she agrees with sleep medicine referral --Labs (05/2023) reviewed Plan of care discussed with patient, all questions answered, they agree with plan of care. Patient to return for follow up in one month. Orders Placed This Encounter Procedures [facility] Sleep Medicine Miguelangel Green MD 06/13/2023 12:43 PM documented in this encounter [facility] 06-03-2023 Telephone encounter Note Thanks! [facility] Work Phone: 06-03-2023 Miscellaneous Notes Thanks! Spoke to patient over Ziip[employer]art regarding labs. Patient states she was taking 50,000 IU once weekly but is now taking daily 5,000 IU. Patient to continue to take daily dose and lab will be rechecked in 3 months to determine if patient needs to adjust dose. Patient also reports she is not taking B12 or a MVI with iron at this time. Patient to start MVI with iron for low normal B12, and lab will be rechecked in 3 months to determine if patient needs to start B12 supplement. Orders pending. Medication list updated. Preop AD Labs (05/29/23) B12: 304 (L normal) Vitamin D: 25 (L) B1 pending Sending patient Z[employer]ip[employer]art message to discuss labs. ----- Message from KAMLESH Farley CNP sent at 05/29/2023 12:17 PM EDT ----- Vit d-ok? documented in this encounter [facility] 06-03-2023 Telephone encounter Note Spoke to patient over MyChart regarding labs. Patient states she was taking 50,000 IU once weekly but is now taking daily 5,000 IU. Patient to continue to take daily dose and lab will be rechecked in 3 months to determine if patient needs to adjust dose. Patient also reports she is not taking B12 or a MVI with iron at this time. Patient to start MVI with iron for low normal B12, and lab will be rechecked in 3 months to determine if patient needs to start B12 supplement. Orders pending. Medication list updated. [facility] 05-31-2023 Hospital Discharge instructions Patient Education 05/31/2023 20:17:11 Headache, Migraine, Classic Migraine Headache This often severe type of headache is different from other types of headaches in that symptoms other than pain occur with the headache. Nausea and vomiting, lightheadedness, sensitivity to light (photophobia), and other visual disturbances are common migraine symptoms. The pain may last from a few hours to several days. It is not clear why migraines occur but certain factors called triggers can raise the risk of having a migraine attack. A migraine may be triggered by emotional stress or depression, or by hormone changes during the menstrual cycle. Other triggers include control pills, overuse of migraine medicines, alcohol or caffeine, foods with tyramine (such as aged cheese and wine), eyestrain, weather changes, missed meals, or too little or too much sleep. Home care Follow these tips when taking care of yourself at home: Don t drive yourself home if you were given pain medicine for your headache or are having visual symptoms. Instead, have someone else drive you home. Try to sleep when you get home. You should feel much better when you wake up. Cold can help ease migraine symptoms. Put an ice pack on your forehead or at the base of your skull. Put heat on the back of your neck to help ease any neck spasm. Drink only clear liquids or eat a light diet until your symptoms get better. This will help you avoid nausea and vomiting. How to prevent migraines Pay attention to what seems to trigger your headache. Try to avoid the triggers when you can. If you have frequent headaches, consider keeping a headache diary. In it, write down what you were doing, feeling, or eating in the hours before each headache. Show this to your healthcare provider to help find the cause of your headaches. If stress seems to be a trigger for your headaches, figure out what is causing stress in your life. Learn new ways to handle your stress. Ideas include regular exercise, biofeedback, self-hypnosis, yoga, and meditation. Talk with your healthcare provider to find out more information about managing stress. Many books and digital media are also available on this subject. Tyramine is a substance found in many foods. It can trigger a migraine in some people. These foods contain tyramine: Chocolate Yogurt All cheeses, but especially aged cheeses Smoked or pickled fish and meat, including narayanan, caviar, bologna, pepperoni, and salami Liver Avocados Bananas Figs Raisins Red wine Try staying away from these foods for 1 to 2 months to see if you have fewer headaches. How to treat future headaches Take time out at the first sign of a headache, if possible. Find a quiet, dark, comfortable place to sit or lie down. Let yourself relax or sleep. Put an ice pack on your forehead or on the area of greatest pain. A heating pad and massage may help if you are having a muscle spasm and tightness in your neck. If you have been prescribed a medicine to stop a migraine headache, use this at the first warning sign of the headache for best results. First signs may be an aura or pain. If you need to take medicine often for your migraine, talk with your healthcare provider about other ways to prevent your headaches. Follow-up care Follow up with your healthcare provider, or as advised. Talk with your provider if you have frequent headaches. He or she can figure out a treatment plan. Ask if you can have medicine to take at home the next time you get a bad headache. This may keep you from having to visit the emergency department in the future. You may need to see a headache specialist (neurologist) if you continue to have headaches. When to seek medical advice Call your healthcare provider right away if any of these occur: Your head pain gets worse, or doesn t get better within 24 hours You can t keep liquids down (repeated vomiting) Pain in your sinuses, ears, or throat Fever of 100.4 F (38 C) or higher, or as directed by your healthcare provider Stiff neck Extreme drowsiness, confusion, or fainting Dizziness, or dizziness with spinning sensation (vertigo) Weakness in an arm or leg, or on one side of your face Difficulty talking or seeing 8962-5734 [employer]. [address] [place] [address]. All rights reserved. This information is not intended as a substitute for professional medical care. Always follow your healthcare professional's instructions. Follow Up Care 05/31/2023 19:53:54 With:Follow up with primary care provider Address:Unknown When:2-4 days [facility] 05-31-2023 Note Discharge Instructions Thank you for allowing [facility] to assist you with your healthcare needs. The following is important discharge information regarding your hospital visit. Diagnosis from Today's Visit Migraine variant with headache Headache Nausea What to Do Next Instructions from Your Care Team No qualifying data available. Post Acute Orders No qualifying data available. You Need to Schedule the Following Appointments Follow Up with Follow up with primary care provider When Within 2-4 days Allergies penicillin Medications Please ask your primary doctor or pharmacist before taking any other medication not listed, including over the counter drugs, herbal medications, vitamins and or supplements as they may interact with your home medications. What How Much When Why Instructions Last Dose New acetaminophen-oxyCODONE (Percocet 5 mg-325 mg oral tablet) 1 tab(s) by mouth Every 6 hours as needed for for pain Migraine variant with headache Duration: 3 Days Printed Prescription Unchanged albuterol (ProAir RespiClick 90 mcg/ inh inhalation powder) 2 puff(s) by inhalation Every 4 hours as needed for as needed Unchanged ARIPiprazole (ARIPiprazole 10 mg oral tablet) 1 tab(s) by mouth Once a day Duration: 30 Days take 1 tablet by mouth at bedtime Unchanged FLUoxetine (PROzac 10 mg oral capsule) 1 cap by mouth Once a day Duration: 30 Days Unchanged lamoTRIgine (lamoTRIgine 150 mg oral tablet) 1 tab(s) by mouth Once a day Duration: 30 Days TAKE 1 TABLET BY MOUTH EVERY DAY Please take this list to your next doctor s visit. Bring all medications you take, including over the counter medications, herbals and other supplements with you to your doctor s visit. Patients and families are reminded to discard old lists and to update any records with all medication providers or retail pharmacies. Education Materials Migraine Headache This often severe type of headache is different from other types of headaches in that symptoms other than pain occur with the headache. Nausea and vomiting, lightheadedness, sensitivity to light (photophobia), and other visual disturbances are common migraine symptoms. The pain may last from a few hours to several days. It is not clear why migraines occur but certain factors called triggers can raise the risk of having a migraine attack. A migraine may be triggered by emotional stress or depression, or by hormone changes during the menstrual cycle. Other triggers include control pills, overuse of migraine medicines, alcohol or caffeine, foods with tyramine (such as aged cheese and wine), eyestrain, weather changes, missed meals, or too little or too much sleep. Home care Follow these tips when taking care of yourself at home: Don t drive yourself home if you were given pain medicine for your headache or are having visual symptoms. Instead, have someone else drive you home. Try to sleep when you get home. You should feel much better when you wake up. Cold can help ease migraine symptoms. Put an ice pack on your forehead or at the base of your skull. Put heat on the back of your neck to help ease any neck spasm. Drink only clear liquids or eat a light diet until your symptoms get better. This will help you avoid nausea and vomiting. How to prevent migraines Pay attention to what seems to trigger your headache. Try to avoid the triggers when you can. If you have frequent headaches, consider keeping a headache diary. In it, write down what you were doing, feeling, or eating in the hours before each headache. Show this to your healthcare provider to help find the cause of your headaches. If stress seems to be a trigger for your headaches, figure out what is causing stress in your life. Learn new ways to handle your stress. Ideas include regular exercise, biofeedback, self-hypnosis, yoga, and meditation. Talk with your healthcare provider to find out more information about managing stress. Many books and digital media are also available on this subject. Tyramine is a substance found in many foods. It can trigger a migraine in some people. These foods contain tyramine: Chocolate Yogurt All cheeses, but especially aged cheeses Smoked or pickled fish and meat, including narayanan, caviar, bologna, pepperoni, and salami Liver Avocados Bananas Figs Raisins Red wine Try staying away from these foods for 1 to 2 months to see if you have fewer headaches. How to treat future headaches Take time out at the first sign of a headache, if possible. Find a quiet, dark, comfortable place to sit or lie down. Let yourself relax or sleep. Put an ice pack on your forehead or on the area of greatest pain. A heating pad and massage may help if you are having a muscle spasm and tightness in your neck. If you have been prescribed a medicine to stop a migraine headache, use this at the first warning sign of the headache for best results. First signs may be an aura or pain. If you need to take medicine often for your migraine, talk with your healthcare provider about other ways to prevent your headaches. Follow-up care Follow up with your healthcare provider, or as advised. Talk with your provider if you have frequent headaches. He or she can figure out a treatment plan. Ask if you can have medicine to take at home the next time you get a bad headache. This may keep you from having to visit the emergency department in the future. You may need to see a headache specialist (neurologist) if you continue to have headaches. When to seek medical advice Call your healthcare provider right away if any of these occur: Your head pain gets worse, or doesn t get better within 24 hours You can t keep liquids down (repeated vomiting) Pain in your sinuses, ears, or throat Fever of 100.4 F (38 C) or higher, or as directed by your healthcare provider Stiff neck Extreme drowsiness, confusion, or fainting Dizziness, or dizziness with spinning sensation (vertigo) Weakness in an arm or leg, or on one side of your face Difficulty talking or seeing [id number] [employer]. [address] [place] [address], [place] [address]. All rights reserved. This information is not intended as a substitute for professional medical care. Always follow your healthcare professional's instructions. Additional Information VACCINATE! IT SAVES LIVES! Members of the community who have not yet received the COVID-19 vaccine and would like to receive it can visit one of [facility] vaccine clinics. There are many vaccine clinic locations within the State. For locations and available times, please visit www.gettheshot.coronavirus.[place]. gov/. It is important to note that some COVID mobile vaccine clinics are held outdoors and may be canceled in rainy or stormy conditions. To learn more about pediatric vaccinations (ages 5-11), we invite you to visit the [facility] webpage. https://www.[facility].org/p ages/6891-Kesqx-Xfwwphgvccw-Freq gbipcc-Gkvux-Ervuujytw.html To learn more about the COVID-19 vaccine, we invite you to visit the CDC website for a list of frequently asked questions. https://www.cdc.gov/coronavirus/ 2019-ncov/vaccines/faq.html [facility] Patient Portal Access Instructions: Stay connected with your healthcare team and access your personal medical information anytime with the [facility] Patient Portal. If you would like a full copy of your medical records please contact the [facility] Medical Records Department Saturday through Saturday between 8a.m. and 4:30p.m. Please follow the directions below to access the portal: 1.Access the email account you provided upon registration to the hospital.2.Look for an invitation email from [facility].3.Open the email and access the invitation link: Accept Invitation to [facility]4.Fill in the required jernigan to create your account. Sign into www.[email or web address] with your username and password that you created in the above steps to stay up to date. You can then view a summary of results, a summary of your visits, and the ability to download your summaries to your computer or send the information securely to a physician. Remember that your healthcare information is confidential, so carefully consider who you will allow to register on the [facility] Patient Portal for access to your information. You can also access the [facility] Patient Portal on the [employer]. Simply click on Health Records under Health Data and then click on the [employer] logo. HOW TO SAFELY DISPOSE OF PRESCRIPTION MEDICATIONS Please use one of the following methods to safely dispose of your unused medications. 1.Use a drug disposal kit: the drug disposal pouch allows you to safely discard your old and unused drugs. Ask your nurse to give you one when you are discharged.2.Visit a local take-back location: Many local pharmacies and police departments have programs that collect old and unwanted prescription drugs. Call your local pharmacy or go to http://[employer].tydy/5Z6We7e to find one close to you.3.Make use of household items: Use cat litter or old coffee grounds to dispose medications if other options are not available. Mix your drugs with these household products, seal them in an airtight container and throw it into the garbage. Call [facility]: [phone] to be sure your drugs can be disposed of in this way. Some medicines may require a different approach.4.Never flush your medications down the toilet. IF YOU HAVE BEEN PRESCRIBED AN OPIOIDS FOR PAIN If you have been prescribed an opioid (such as hydrocodone, oxycodone or morphine), it is critical to understand the possible side effects and risks of opioid pain medications. Even when taken as directed, opioids can have several side effects including: Tolerance, meaning you might need to take more of a medication for the same pain relief. Nausea, vomiting and/or constipation. Sleepiness, dizziness, dry mouth, confusion, depression or itching. Physical dependence, meaning you have withdrawal symptoms when a medication is stopped ? this can develop within a few days. KNOW YOUR RESPONSIBILITIES It is important to know exactly how much and how often to take the opioid pain medications you are prescribed. Never take opioids in higher amounts or more often than prescribed. Do not combine opioids with alcohol or other drugs that cause drowsiness, such as benzodiazepines, also known as benzos, including diazepam and alprazolam, muscle relaxants or sleep aids. Never sell or share prescription opioids. This is illegal. Store opioids in a secure place and out of reach of others (including children, family, friends and visitors). The last page(s) of this document has been signed and retained as a CHART COPY Signatures Patient Education Materials Headache, Migraine, Classic Medication Leaflets My discharge plan and instructions have been reviewed and explained to me and IMARY ELIZABETH A understand my current condition and have read and understand these discharge instructions. I have received a written copy of the plan/instructions. If I have questions, I am aware that I should contact my doctor. 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 [facility] 05-29-2023 Telephone encounter Note ----- Message from KAMLESH Farley CNP sent at 05/29/2023 12:17 PM EDT ----- Vit d-ok? [facility] 05-21-2023 Telephone encounter Note ORDERS MAILED [facility] 05-21-2023 Miscellaneous Notes ORDERS MAILED Addended by: JEREMY HALLMAN on: 05/20/2023 09:06 AM Modules accepted: Orders Discussed, and ok to sign. Bmi 39- no comorbid have emailed financial team. Addended by: TIYN PINEDA on: 05/13/2023 02:30 PM Modules accepted: Orders Orders pended, Pre-op checklist scanned, EGD order sent to ALS PLAN Encounter Diagnoses Name Primary? Vitamin D deficiency Morbid obesity with BMI of 40.0-44.9, adult (HCC) Gastroesophageal reflux disease without esophagitis Prediabetes I have recommended proceeding with the evaluation and work-up for the primary procedure as outlined below: PATIENT SUMMARY Ana Fritz 23 y.o. female with Body mass index is 39.94 kg/m . 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 Does not know biological parents PCP: MAGDA KELLY INITIAL TESTING RESULTS Labwork [x] CMP, TSH, Fasting Lipid Profile, Mg, Zinc, Vit B1 (whole blood), Vit B12, 25-OH Vit D, Fe, Ferritin, Folate Tobacco [x] Serum Nicotine / Cotinine [] Negative [] Positive EGD [x] Dx: [x] GERD [] Dyspepsia [] Other Pathology [x] H. pylori [] Negative [] Positive UGI [x] [] not ordered US Abdomen [x] [] not ordered CINDY eval [x] [] On CPAP / Obtain settings Hematology [] [] Hypercoagulation panel Toxicology [] [] Urine drug screen [] EtOH screen Addtional [] [] Hgb A1c INITIAL CONSULTATIONS CLEARANCE / MANAGEMENT Psychology [x] Dr. Hahn [x] Cardiology [x] [] not ordered Pulmonary [] [x] not ordered Others [] []Heme/Onc []Psychiatry []Pain mgmt PSD [] Physician supervised diet: []None [x]3 mos []6 mos Preop diet [] Preop low calory diet: [x]None []1 wk []2 wks []Ext. FINAL PRE-OP TESTING RESULTS Labwork [x] [x]Pre-op CBC [x]BMP []Serum Nicotine / Cotinine EKG [x] CXR [x] POST-OP MEDICATIONS Ulcer Ppx [] Omeprazole 20 mg PO []QD []BID Gallstone Ppx [] Ursodiol 300 mg []BID DVT Ppx [] DVT prophylaxis per final preop visit estimated risk Estimated calculated risk: % Schedule final pre-operative office visit with surgeon, pre-operative education class, and pre-operative exercise class prior to date of surgery ATTESTATION I reviewed with the patient the details of the proposed operation. The risks benefits and options were discussed. Risks included but were not limited to bleeding, infection, damage to other surrounding organs, cardio-pulmonary complications related to anesthesia, conversion from laparoscopic to and open procedure, the need for reoperative or endoscopic therapy, the potential for prolonged mechanical ventilation, and . All questions were fully answered to the patient's satisfaction and they wish to proceed with surgical intervention. A total of over 45 minute visit was spent in face to face encounter, counseling the patient, discussing the surgical/perioperative plan, record review and documentation. The patient was seen and examined independently and relevant data including a full chart rreview was performed by myself. Initial New [facility] surgical patient Navigation & Financial Counseling Discussion Patient Communication: In office SURGEON: [] SINDI [x] AD [] MP [] TB [] LM PROCEDURE: [] LRYGB [] LSG [] ANDREWS-S [] ANDREWS [] UNDECIDED [] REV: SPECIFY: Confirmed pt wants to continue with surgical program/plan [x] YES [] NO (complete program withdrawal note/process) CO-MORBIDS: [] NONE [] DM []HTN [] CINDY []GERD [] OTH: PRIVATE PAY: [] NO []YES DATE OF INITIAL BENEFITS VERIFICATION: TRANSFER FU: [] YES [] NO PRIMARY INSURANCE: Payor: [facility] MEDICAID / Plan: [facility] MEDICAID ODM / Product Type: Medicaid HMO / BENEFIT ON PLAN: [] NO [] YES BENEFIT MAX: [] NO [] YES -- BENEFIT MAX: $ EMPLOYER: DIET AND EXERCISE (DE) REQUIREMENT PRIMARY [] NONE []3M [] 6M []9M [] Medicare 4 Months [] SPR (3M) []OTHER: SECONDARY INSURANCE: BENEFIT ON PLAN: [] NO [] YES BENEFIT MAX: [] NO [] YES -- BENEFIT MAX: $ AUTH REQUIRED FROM SECONDARY [] NO [] YES DIET AND EXERCISE REQUIREMENT SECONDARY [] NONE []3M [] 6M [] Medicare 4 months [] SPR (3M) []OTHER: ___ [x] Discussed with patient: Financial cost overview (document signed and pt given copy at new pt consult visit with surgeon), Initial appointments: Bariatric Nutrition Assessment (BNA) & Diet and Exercise (DE) Patient to look for yellow envelope in mail. This yellow envelope will contain orders for labs, testing and required clearances. Pt encouraged to complete early in program to prevent delays. Encourage blood work to be draw by 1st DE appointment. [x] Reviewed OOP cost, including: [] Optifast cost of approximately $130-140/week x weeks immediately prior to surgery - used to induce rapid weight loss which results in decrease in size of liver and therefore facilitates laparoscopically surgery approach. [x] Overview of inpatient admission benefits - estimated inpatient co-pays, deductibles and/or co-insurance - Estimated OOP costs form reviewed with patient, and copy given to patient at new pt visit. [x] Reviewed next steps with patient: 1) Scheduled at new pt surgeon visit: Human Resources Administrator (RD) for a Nutrition Assessment (BNA) and Pre-operative Diet and Exercise (DE) appointment #1. [x] Patient reminded to arrive 15 minutes early for check in. Late arrivals may need to be rescheduled. 2) Schedule: Diet and Exercise Apt #2 only scheduled after initial BNA and DE completed, 3) Behavioral Health apt scheduled after DE started. Reviewed rational and goal of Behavioral Health appointments. 4) [x] Reinforced need to cancel any WMI appointments 48 hours in advance. Cautioned NS/Same day cancellations may result in delay in program or program completion hold. Noted: DE series needs to be a monthly series or insurance company may require repeat of the entire series. 5) [x] Smoker/tobacco products including vaping: reviewed need for cessation before surgery clearance and life long abstinence after surgery for best outcomes. Patient navigation to surgery: [x] Explained to patient that average time from initial consult to date of surgery can be 6-8 months. - Process can take longer if there are cancelled appointments, delays in testing and/or additional clearances that needs to be completed. - Reviewed importance of patient active engagement in making and keeping appointments to keep the process moving. - Reinforced need to cancel appointments at least 48 hours in advance. Reviewed that instances of No Shows and Same Day Appointment Cancellations may result in program/surgery delay or hold. [x] Patient advised of importance of having voicemail and MyChart for office communications and lab/testing results before and after surgery. documented in this encounter [facility] 05-20-2023 Note Addended by: JEREMY HALLMAN on: 05/20/2023 09:06 AM Modules accepted: Orders [facility] Phone: 05-20-2023 Note Addended by: JEREMY HALLMAN on: 05/20/2023 09:06 AM Modules accepted: Orders [facility] Phone: 05-20-2023 Note Addended by: JEREMY HALLMAN on: 05/20/2023 09:06 AM Modules accepted: Orders [facility] 05-20-2023 Telephone encounter Note Discussed, and ok to sign. [facility] 05-20-2023 Miscellaneous Notes Addended by: JEREMY HALLMAN on: 05/20/2023 09:06 AM Modules accepted: Orders Discussed, and ok to sign. Bmi 39- no comorbid have emailed financial team. Addended by: TINY PINEDA on: 05/13/2023 02:30 PM Modules accepted: Orders Orders pended, Pre-op checklist scanned, EGD order sent to ALS PLAN Encounter Diagnoses Name Primary? Vitamin D deficiency Morbid obesity with BMI of 40.0-44.9, adult (HCC) Gastroesophageal reflux disease without esophagitis Prediabetes I have recommended proceeding with the evaluation and work-up for the primary procedure as outlined below: PATIENT SUMMARY Ana Fritz 23 y.o. female with Body mass index is 39.94 kg/m . 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 Does not know biological parents PCP: MAGDA KELLY INITIAL TESTING RESULTS Labwork [x] CMP, TSH, Fasting Lipid Profile, Mg, Zinc, Vit B1 (whole blood), Vit B12, 25-OH Vit D, Fe, Ferritin, Folate Tobacco [x] Serum Nicotine / Cotinine [] Negative [] Positive EGD [x] Dx: [x] GERD [] Dyspepsia [] Other Pathology [x] H. pylori [] Negative [] Positive UGI [x] [] not ordered US Abdomen [x] [] not ordered CINDY eval [x] [] On CPAP / Obtain settings Hematology [] [] Hypercoagulation panel Toxicology [] [] Urine drug screen [] EtOH screen Addtional [] [] Hgb A1c INITIAL CONSULTATIONS CLEARANCE / MANAGEMENT Psychology [x] Dr. Mascorroitian [x] Cardiology [x] [] not ordered Pulmonary [] [x] not ordered Others [] []Heme/Onc []Psychiatry []Pain mgmt PSD [] Physician supervised diet: []None [x]3 mos []6 mos Preop diet [] Preop low calory diet: [x]None []1 wk []2 wks []Ext. FINAL PRE-OP TESTING RESULTS Labwork [x] [x]Pre-op CBC [x]BMP []Serum Nicotine / Cotinine EKG [x] CXR [x] POST-OP MEDICATIONS Ulcer Ppx [] Omeprazole 20 mg PO []QD []BID Gallstone Ppx [] Ursodiol 300 mg []BID DVT Ppx [] DVT prophylaxis per final preop visit estimated risk Estimated calculated risk: % Schedule final pre-operative office visit with surgeon, pre-operative education class, and pre-operative exercise class prior to date of surgery ATTESTATION I reviewed with the patient the details of the proposed operation. The risks benefits and options were discussed. Risks included but were not limited to bleeding, infection, damage to other surrounding organs, cardio-pulmonary complications related to anesthesia, conversion from laparoscopic to and open procedure, the need for reoperative or endoscopic therapy, the potential for prolonged mechanical ventilation, and . All questions were fully answered to the patient's satisfaction and they wish to proceed with surgical intervention. A total of over 45 minute visit was spent in face to face encounter, counseling the patient, discussing the surgical/perioperative plan, record review and documentation. The patient was seen and examined independently and relevant data including a full chart rreview was performed by myself. Initial New [facility] surgical patient Navigation & Financial Counseling Discussion Patient Communication: In office SURGEON: [] JZ [x] AD [] MP [] TB [] LM PROCEDURE: [] LRYGB [] LSG [] ANDREWS-S [] ANDREWS [] UNDECIDED [] REV: SPECIFY: Confirmed pt wants to continue with surgical program/plan [x] YES [] NO (complete program withdrawal note/process) CO-MORBIDS: [] NONE [] DM []HTN [] CINDY []GERD [] OTH: PRIVATE PAY: [] NO []YES DATE OF INITIAL BENEFITS VERIFICATION: TRANSFER FU: [] YES [] NO PRIMARY INSURANCE: Payor: [facility] MEDICAID / Plan: [facility] MEDICAID ODM / Product Type: Medicaid HMO / BENEFIT ON PLAN: [] NO [] YES BENEFIT MAX: [] NO [] YES -- BENEFIT MAX: $ EMPLOYER: DIET AND EXERCISE (DE) REQUIREMENT PRIMARY [] NONE []3M [] 6M []9M [] Medicare 4 Months [] SPR (3M) []OTHER: SECONDARY INSURANCE: BENEFIT ON PLAN: [] NO [] YES BENEFIT MAX: [] NO [] YES -- BENEFIT MAX: $ AUTH REQUIRED FROM SECONDARY [] NO [] YES DIET AND EXERCISE REQUIREMENT SECONDARY [] NONE []3M [] 6M [] Medicare 4 months [] SPR (3M) []OTHER: ___ [x] Discussed with patient: Financial cost overview (document signed and pt given copy at new pt consult visit with surgeon), Initial appointments: Bariatric Nutrition Assessment (BNA) & Diet and Exercise (DE) Patient to look for yellow envelope in mail. This yellow envelope will contain orders for labs, testing and required clearances. Pt encouraged to complete early in program to prevent delays. Encourage blood work to be draw by 1st DE appointment. [x] Reviewed OOP cost, including: [] Optifast cost of approximately $130-140/week x weeks immediately prior to surgery - used to induce rapid weight loss which results in decrease in size of liver and therefore facilitates laparoscopically surgery approach. [x] Overview of inpatient admission benefits - estimated inpatient co-pays, deductibles and/or co-insurance - Estimated OOP costs form reviewed with patient, and copy given to patient at new pt visit. [x] Reviewed next steps with patient: 1) Scheduled at new pt surgeon visit: Human Resources Administrator (RD) for a Nutrition Assessment (BNA) and Pre-operative Diet and Exercise (DE) appointment #1. [x] Patient reminded to arrive 15 minutes early for check in. Late arrivals may need to be rescheduled. 2) Schedule: Diet and Exercise Apt #2 only scheduled after initial BNA and DE completed, 3) Behavioral Health apt scheduled after DE started. Reviewed rational and goal of Behavioral Health appointments. 4) [x] Reinforced need to cancel any WMI appointments 48 hours in advance. Cautioned NS/Same day cancellations may result in delay in program or program completion hold. Noted: DE series needs to be a monthly series or insurance company may require repeat of the entire series. 5) [x] Smoker/tobacco products including vaping: reviewed need for cessation before surgery clearance and life long abstinence after surgery for best outcomes. Patient navigation to surgery: [x] Explained to patient that average time from initial consult to date of surgery can be 6-8 months. - Process can take longer if there are cancelled appointments, delays in testing and/or additional clearances that needs to be completed. - Reviewed importance of patient active engagement in making and keeping appointments to keep the process moving. - Reinforced need to cancel appointments at least 48 hours in advance. Reviewed that instances of No Shows and Same Day Appointment Cancellations may result in program/surgery delay or hold. [x] Patient advised of importance of having voicemail and MyChart for office communications and lab/testing results before and after surgery. documented in this encounter [facility] 05-16-2023 Telephone encounter Note Bmi 39- no comorbid [facility] team[facility] Miscellaneous Notes Bmi 39- no comorbid have emailed financial team. Addended by: TINY PINEDA on: 05/13/2023 02:30 PM Modules accepted: Orders Orders pended, Pre-op checklist scanned, EGD order sent to ALS PLAN Encounter Diagnoses Name Primary? Vitamin D deficiency Morbid obesity with BMI of 40.0-44.9, adult (HCC) Gastroesophageal reflux disease without esophagitis Prediabetes I have recommended proceeding with the evaluation and work-up for the primary procedure as outlined below: PATIENT SUMMARY Ana Fritz 23 y.o. female with Body mass index is 39.94 kg/m . 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 Does not know biological parents PCP: MAGDA KELLY INITIAL TESTING RESULTS Labwork [x] CMP, TSH, Fasting Lipid Profile, Mg, Zinc, Vit B1 (whole blood), Vit B12, 25-OH Vit D, Fe, Ferritin, Folate Tobacco [x] Serum Nicotine / Cotinine [] Negative [] Positive EGD [x] Dx: [x] GERD [] Dyspepsia [] Other Pathology [x] H. pylori [] Negative [] Positive UGI [x] [] not ordered US Abdomen [x] [] not ordered CINDY eval [x] [] On CPAP / Obtain settings Hematology [] [] Hypercoagulation panel Toxicology [] [] Urine drug screen [] EtOH screen Addtional [] [] Hgb A1c INITIAL CONSULTATIONS CLEARANCE / MANAGEMENT Psychology [x] Dr. Hahn [x] Cardiology [x] [] not ordered Pulmonary [] [x] not ordered Others [] []Heme/Onc []Psychiatry []Pain mgmt PSD [] Physician supervised diet: []None [x]3 mos []6 mos Preop diet [] Preop low calory diet: [x]None []1 wk []2 wks []Ext. FINAL PRE-OP TESTING RESULTS Labwork [x] [x]Pre-op CBC [x]BMP []Serum Nicotine / Cotinine EKG [x] CXR [x] POST-OP MEDICATIONS Ulcer Ppx [] Omeprazole 20 mg PO []QD []BID Gallstone Ppx [] Ursodiol 300 mg []BID DVT Ppx [] DVT prophylaxis per final preop visit estimated risk Estimated calculated risk: % Schedule final pre-operative office visit with surgeon, pre-operative education class, and pre-operative exercise class prior to date of surgery ATTESTATION I reviewed with the patient the details of the proposed operation. The risks benefits and options were discussed. Risks included but were not limited to bleeding, infection, damage to other surrounding organs, cardio-pulmonary complications related to anesthesia, conversion from laparoscopic to and open procedure, the need for reoperative or endoscopic therapy, the potential for prolonged mechanical ventilation, and . All questions were fully answered to the patient's satisfaction and they wish to proceed with surgical intervention. A total of over 45 minute visit was spent in face to face encounter, counseling the patient, discussing the surgical/perioperative plan, record review and documentation. The patient was seen and examined independently and relevant data including a full chart rreview was performed by myself. Initial [facility] surgical patient Navigation & Financial Counseling Discussion Patient Communication: In office SURGEON: [] SINDI [x] AD [] MP [] TB [] LM PROCEDURE: [] LRYGB [] LSG [] ANDREWS-S [] ANDREWS [] UNDECIDED [] REV: SPECIFY: Confirmed pt wants to continue with surgical program/plan [x] YES [] NO (complete program withdrawal note/process) CO-MORBIDS: [] NONE [] DM []HTN [] CINDY []GERD [] OTH: PRIVATE PAY: [] NO []YES DATE OF INITIAL BENEFITS VERIFICATION: TRANSFER FU: [] YES [] NO PRIMARY INSURANCE: Payor: [facility] MEDICAID / Plan: [facility] MEDICAID ODM / Product Type: Medicaid HMO / BENEFIT ON PLAN: [] NO [] YES BENEFIT MAX: [] NO [] YES -- BENEFIT MAX: $ EMPLOYER: DIET AND EXERCISE (DE) REQUIREMENT PRIMARY [] NONE []3M [] 6M []9M [] Medicare 4 Months [] SPR (3M) []OTHER: SECONDARY INSURANCE: BENEFIT ON PLAN: [] NO [] YES BENEFIT MAX: [] NO [] YES -- BENEFIT MAX: $ AUTH REQUIRED FROM SECONDARY [] NO [] YES DIET AND EXERCISE REQUIREMENT SECONDARY [] NONE []3M [] 6M [] Medicare 4 months [] SPR (3M) []OTHER: ___ [x] Discussed with patient: Financial cost overview (document signed and pt given copy at new pt consult visit with surgeon), Initial appointments: Bariatric Nutrition Assessment (BNA) & Diet and Exercise (DE) Patient to look for yellow envelope in mail. This yellow envelope will contain orders for labs, testing and required clearances. Pt encouraged to complete early in program to prevent delays. Encourage blood work to be draw by 1st DE appointment. [x] Reviewed OOP cost, including: [] Optifast cost of approximately $130-140/week x weeks immediately prior to surgery - used to induce rapid weight loss which results in decrease in size of liver and therefore facilitates laparoscopically surgery approach. [x] Overview of inpatient admission benefits - estimated inpatient co-pays, deductibles and/or co-insurance - Estimated OOP costs form reviewed with patient, and copy given to patient at new pt visit. [x] Reviewed next steps with patient: 1) Scheduled at new pt surgeon visit: Human Resources Administrator (RD) for a Nutrition Assessment (BNA) and Pre-operative Diet and Exercise (DE) appointment #1. [x] Patient reminded to arrive 15 minutes early for check in. Late arrivals may need to be rescheduled. 2) Schedule: Diet and Exercise Apt #2 only scheduled after initial BNA and DE completed, 3) Behavioral Health apt scheduled after DE started. Reviewed rational and goal of Behavioral Health appointments. 4) [x] Reinforced need to cancel any WMI appointments 48 hours in advance. Cautioned NS/Same day cancellations may result in delay in program or program completion hold. Noted: DE series needs to be a monthly series or insurance company may require repeat of the entire series. 5) [x] Smoker/tobacco products including vaping: reviewed need for cessation before surgery clearance and life long abstinence after surgery for best outcomes. Patient navigation to surgery: [x] Explained to patient that average time from initial consult to date of surgery can be 6-8 months. - Process can take longer if there are cancelled appointments, delays in testing and/or additional clearances that needs to be completed. - Reviewed importance of patient active engagement in making and keeping appointments to keep the process moving. - Reinforced need to cancel appointments at least 48 hours in advance. Reviewed that instances of No Shows and Same Day Appointment Cancellations may result in program/surgery delay or hold. [x] Patient advised of importance of having voicemail and MyChart for office communications and lab/testing results before and after surgery. documented in this encounter [facility] 05-13-2023 Note Addended by: TINY PINEDA on: 05/13/2023 02:30 PM Modules accepted: Orders [facility] 05-13-2023 Note Addended by: TINY PINEDA on: 05/13/2023 02:30 PM Modules accepted: Orders [facility] 05-13-2023 Note Addended by: TINY PINEDA on: 05/13/2023 02:30 PM Modules accepted: Orders [facility] 05-13-2023 Note Addended by: TINY PINEDA on: 05/13/2023 02:30 PM Modules accepted: Orders [facility] 05-13-2023 Note Addended by: TINY PINEDA on: 05/13/2023 02:30 PM Modules accepted: Orders [facility] 05-13-2023 Note Addended by: TINY PINEDA on: 05/13/2023 02:30 PM Modules accepted: Orders [facility] 05-13-2023 Miscellaneous Notes Addended by: TINY PINEDA on: 05/13/2023 02:30 PM Modules accepted: Orders Orders pended, Pre-op checklist scanned, EGD order sent to ALS PLAN Encounter Diagnoses Name Primary? Vitamin D deficiency Morbid obesity with BMI of 40.0-44.9, adult (HCC) Gastroesophageal reflux disease without esophagitis Prediabetes I have recommended proceeding with the evaluation and work-up for the primary procedure as outlined below: PATIENT SUMMARY Ana Fritz 23 y.o. female with Body mass index is 39.94 kg/m . 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 Does not know biological parents PCP: MAGDA KELLY INITIAL TESTING RESULTS Labwork [x] CMP, TSH, Fasting Lipid Profile, Mg, Zinc, Vit B1 (whole blood), Vit B12, 25-OH Vit D, Fe, Ferritin, Folate Tobacco [x] Serum Nicotine / Cotinine [] Negative [] Positive EGD [x] Dx: [x] GERD [] Dyspepsia [] Other Pathology [x] H. pylori [] Negative [] Positive UGI [x] [] not ordered US Abdomen [x] [] not ordered CINDY eval [x] [] On CPAP / Obtain settings Hematology [] [] Hypercoagulation panel Toxicology [] [] Urine drug screen [] EtOH screen Addtional [] [] Hgb A1c INITIAL CONSULTATIONS CLEARANCE / MANAGEMENT Psychology [x] Dr. Hahn [x] Cardiology [x] [] not ordered Pulmonary [] [x] not ordered Others [] []Heme/Onc []Psychiatry []Pain mgmt PSD [] Physician supervised diet: []None [x]3 mos []6 mos Preop diet [] Preop low calory diet: [x]None []1 wk []2 wks []Ext. FINAL PRE-OP TESTING RESULTS Labwork [x] [x]Pre-op CBC [x]BMP []Serum Nicotine / Cotinine EKG [x] CXR [x] POST-OP MEDICATIONS Ulcer Ppx [] Omeprazole 20 mg PO []QD []BID Gallstone Ppx [] Ursodiol 300 mg []BID DVT Ppx [] DVT prophylaxis per final preop visit estimated risk Estimated calculated risk: % Schedule final pre-operative office visit with surgeon, pre-operative education class, and pre-operative exercise class prior to date of surgery ATTESTATION I reviewed with the patient the details of the proposed operation. The risks benefits and options were discussed. Risks included but were not limited to bleeding, infection, damage to other surrounding organs, cardio-pulmonary complications related to anesthesia, conversion from laparoscopic to and open procedure, the need for reoperative or endoscopic therapy, the potential for prolonged mechanical ventilation, and . All questions were fully answered to the patient's satisfaction and they wish to proceed with surgical intervention. A total of over 45 minute visit was spent in face to face encounter, counseling the patient, discussing the surgical/perioperative plan, record review and documentation. The patient was seen and examined independently and relevant data including a full chart rreview was performed by myself. Initial New [facility] surgical patient Navigation & Financial Counseling Discussion Patient Communication: In office SURGEON: [] JZ [x] AD [] MP [] TB [] LM PROCEDURE: [] LRYGB [] LSG [] ANDREWS-S [] ANDREWS [] UNDECIDED [] REV: SPECIFY: Confirmed pt wants to continue with surgical program/plan [x] YES [] NO (complete program withdrawal note/process) CO-MORBIDS: [] NONE [] DM []HTN [] CINDY []GERD [] OTH: PRIVATE PAY: [] NO []YES DATE OF INITIAL BENEFITS VERIFICATION: TRANSFER FU: [] YES [] NO PRIMARY INSURANCE: Payor: [facility] MEDICAID / Plan: [facility] MEDICAID ODM / Product Type: Medicaid HMO / BENEFIT ON PLAN: [] NO [] YES BENEFIT MAX: [] NO [] YES -- BENEFIT MAX: $ EMPLOYER: DIET AND EXERCISE (DE) REQUIREMENT PRIMARY [] NONE []3M [] 6M []9M [] Medicare 4 Months [] SPR (3M) []OTHER: SECONDARY INSURANCE: BENEFIT ON PLAN: [] NO [] YES BENEFIT MAX: [] NO [] YES -- BENEFIT MAX: $ AUTH REQUIRED FROM SECONDARY [] NO [] YES DIET AND EXERCISE REQUIREMENT SECONDARY [] NONE []3M [] 6M [] Medicare 4 months [] SPR (3M) []OTHER: ___ [x] Discussed with patient: Financial cost overview (document signed and pt given copy at new pt consult visit with surgeon), Initial appointments: Bariatric Nutrition Assessment (BNA) & Diet and Exercise (DE) Patient to look for yellow envelope in mail. This yellow envelope will contain orders for labs, testing and required clearances. Pt encouraged to complete early in program to prevent delays. Encourage blood work to be draw by 1st DE appointment. [x] Reviewed OOP cost, including: [] Optifast cost of approximately $130-140/week x weeks immediately prior to surgery - used to induce rapid weight loss which results in decrease in size of liver and therefore facilitates laparoscopically surgery approach. [x] Overview of inpatient admission benefits - estimated inpatient co-pays, deductibles and/or co-insurance - Estimated OOP costs form reviewed with patient, and copy given to patient at new pt visit. [x] Reviewed next steps with patient: 1) Scheduled at new pt surgeon visit: Human Resources Administrator (RD) for a Nutrition Assessment (BNA) and Pre-operative Diet and Exercise (DE) appointment #1. [x] Patient reminded to arrive 15 minutes early for check in. Late arrivals may need to be rescheduled. 2) Schedule: Diet and Exercise Apt #2 only scheduled after initial BNA and DE completed, 3) Behavioral Health apt scheduled after DE started. Reviewed rational and goal of Behavioral Health appointments. 4) [x] Reinforced need to cancel any WMI appointments 48 hours in advance. Cautioned NS/Same day cancellations may result in delay in program or program completion hold. Noted: DE series needs to be a monthly series or insurance company may require repeat of the entire series. 5) [x] Smoker/tobacco products including vaping: reviewed need for cessation before surgery clearance and life long abstinence after surgery for best outcomes. Patient navigation to surgery: [x] Explained to patient that average time from initial consult to date of surgery can be 6-8 months. - Process can take longer if there are cancelled appointments, delays in testing and/or additional clearances that needs to be completed. - Reviewed importance of patient active engagement in making and keeping appointments to keep the process moving. - Reinforced need to cancel appointments at least 48 hours in advance. Reviewed that instances of No Shows and Same Day Appointment Cancellations may result in program/surgery delay or hold. [x] Patient advised of importance of having voicemail and MyChart for office communications and lab/testing results before and after surgery. documented in this encounter [facility] 05-13-2023 History of Present illness Narrative ENDOSCOPY ORDERS To be scheduled with: Dr. Fritz Patient is: Pre-op/Pre-Bariatric Surgery CPT code: EGD with biopsy- CPT 31364 Diagnosis: GERD- K21.9 If pre-op, Diet & Exercise Requirements are, and started/scheduled on 06/13/2023: 3 months Home O2: No Known Difficult Intubation: No LVM ASKING PT TO CALL BACK TO SCHEDULE EGD EGD W BIOPSY scheduled Date: 08/19 Time: 9AM Place: [address] [place] [address] Patient notified via phone and MAIL PRINTED Authorization for Testing Initiated. Company Name & Number Contacted for Auth: [facility] Name of Fret Saw Operator: ONLINE PORTAL Name of Procedure: EGD WITH BIOPSY Cpt Code: 68809 Diagnosis Code: K21.9 Location of Procedure: [facility] Is Auth Required: YES Call Reference #: NA Pending Case #: NA Clinical Reviewer: TREVOR Additional Info if given: NA Approved Case reference: [id number] Date Range for Approved Auth: -11/17/23 documented in this encounter [facility] [place] 05-13-2023 Telephone encounter Note Orders pended, Pre-op checklist scanned, EGD order sent to ALS [facility] [place] 05-13-2023 Telephone encounter Note PLAN Encounter Diagnoses Name Primary? Vitamin D deficiency Morbid obesity with BMI of 40.0-44.9, adult (HCC) Gastroesophageal reflux disease without esophagitis Prediabetes I have recommended proceeding with the evaluation and work-up for the primary procedure as outlined below: PATIENT SUMMARY Ana Fritz 23 y.o. female with Body mass index is 39.94 kg/m . 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 Does not know biological parents PCP: MAGDA KELLY INITIAL TESTING RESULTS Labwork [x] CMP, TSH, Fasting Lipid Profile, Mg, Zinc, Vit B1 (whole blood), Vit B12, 25-OH Vit D, Fe, Ferritin, Folate Tobacco [x] Serum Nicotine / Cotinine [] Negative [] Positive EGD [x] Dx: [x] GERD [] Dyspepsia [] Other Pathology [x] H. pylori [] Negative [] Positive UGI [x] [] not ordered US Abdomen [x] [] not ordered CINDY eval [x] [] On CPAP / Obtain settings Hematology [] [] Hypercoagulation panel Toxicology [] [] Urine drug screen [] EtOH screen Addtional [] [] Hgb A1c INITIAL CONSULTATIONS CLEARANCE / MANAGEMENT Psychology [x] Dr. Mascorroitialex [x] Cardiology [x] [] not ordered Pulmonary [] [x] not ordered Others [] []Heme/Onc []Psychiatry []Pain mgmt PSD [] Physician supervised diet: []None [x]3 mos []6 mos Preop diet [] Preop low calory diet: [x]None []1 wk []2 wks []Ext. FINAL PRE-OP TESTING RESULTS Labwork [x] [x]Pre-op CBC [x]BMP []Serum Nicotine / Cotinine EKG [x] CXR [x] POST-OP MEDICATIONS Ulcer Ppx [] Omeprazole 20 mg PO []QD []BID Gallstone Ppx [] Ursodiol 300 mg []BID DVT Ppx [] DVT prophylaxis per final preop visit estimated risk Estimated calculated risk: % Schedule final pre-operative office visit with surgeon, pre-operative education class, and pre-operative exercise class prior to date of surgery ATTESTATION I reviewed with the patient the details of the proposed operation. The risks benefits and options were discussed. Risks included but were not limited to bleeding, infection, damage to other surrounding organs, cardio-pulmonary complications related to anesthesia, conversion from laparoscopic to and open procedure, the need for reoperative or endoscopic therapy, the potential for prolonged mechanical ventilation, and . All questions were fully answered to the patient's satisfaction and they wish to proceed with surgical intervention. A total of over 45 minute visit was spent in face to face encounter, counseling the patient, discussing the surgical/perioperative plan, record review and documentation. The patient was seen and examined independently and relevant data including a full chart rreview was performed by myself. T [facility] 05-01-2023 Note Initial New [facility] surg ical patient Navigation & Financial Counseling Discussion Patient Communication: In office SURGEON: [] JZ [x] AD [] MP [] TB [] LM PROCEDURE: [] LRYGB [] LSG [] ANDREWS-S [] ANDREWS [] UNDECIDED [] REV: SPECIFY: Confirmed pt wants to continue with surgical program/plan [x] YES [] NO (complete program withdrawal note/process) CO-MORBIDS: [] NONE [] DM []HTN [] CINDY []GERD [] OTH: PRIVATE PAY: [] NO []YES DATE OF INITIAL BENEFITS VERIFICATION: TRANSFER FU: [] YES [] NO PRIMARY INSURANCE: Payor: [facility] MEDICAID / Plan: [facility] MEDICAID ODM / Product Type: Medicaid HMO / BENEFIT ON PLAN: [] NO [] YES BENEFIT MAX: [] NO [] YES -- BENEFIT MAX: $ EMPLOYER: DIET AND EXERCISE (DE) REQUIREMENT PRIMARY [] NONE []3M [] 6M []9M [] Medicare 4 Months [] SPR (3M) []OTHER: SECONDARY INSURANCE: BENEFIT ON PLAN: [] NO [] YES BENEFIT MAX: [] NO [] YES -- BENEFIT MAX: $ AUTH REQUIRED FROM SECONDARY [] NO [] YES DIET AND EXERCISE REQUIREMENT SECONDARY [] NONE []3M [] 6M [] Medicare 4 months [] SPR (3M) []OTHER: ___ [x] Discussed with patient: Financial cost overview (document signed and pt given copy at new pt consult visit with surgeon), Initial appointments: Bariatric Nutrition Assessment (BNA) & Diet and Exercise (DE) Patient to look for yellow envelope in mail. This yellow envelope will contain orders for labs, testing and required clearances. Pt encouraged to complete early in program to prevent delays. Encourage blood work to be draw by 1st DE appointment. [x] Reviewed OOP cost, including: [] Optifast cost of approximately $130-140/week x weeks immediately prior to surgery - used to induce rapid weight loss which results in decrease in size of liver and therefore facilitates laparoscopically surgery approach. [x] Overview of inpatient admission benefits - estimated inpatient co-pays, deductibles and/or co-insurance - Estimated OOP costs form reviewed with patient, and copy given to patient at new pt visit. [x] Reviewed next steps with patient: 1) Scheduled at new pt surgeon visit: Human Resources Administrator (RD) for a Nutrition Assessment (BNA) and Pre-operative Diet and Exercise (DE) appointment #1. [x] Patient reminded to arrive 15 minutes early for check in. Late arrivals may need to be rescheduled. 2) Schedule: Diet and Exercise Apt #2 only scheduled after initial BNA and DE completed, 3) Behavioral Health apt scheduled after DE started. Reviewed rational and goal of Behavioral Health appointments. 4) [x] Reinforced need to cancel any WMI appointments 48 hours in advance. Cautioned NS/Same day cancellations may result in delay in program or program completion hold. Noted: DE series needs to be a monthly series or insurance company may require repeat of the entire series. 5) [x] Smoker/tobacco products including vaping: reviewed need for cessation before surgery clearance and life long abstinence after surgery for best outcomes. Patient navigation to surgery: [x] Explained to patient that average time from initial consult to date of surgery can be 6-8 months. - Process can take longer if there are cancelled appointments, delays in testing and/or additional clearances that needs to be completed. - Reviewed importance of patient active engagement in making and keeping appointments to keep the process moving. - Reinforced need to cancel appointments at least 48 hours in advance. Reviewed that instances of No Shows and Same Day Appointment Cancellations may result in program/surgery delay or hold. [x] Patient advised of importance of having voicemail and MyChart for office communications and lab/testing results before and after surgery. [facility] 05-01-2023 Telephone encounter Note Initial New [facility] surgical patient Navigation & Financial Counseling Discussion Patient Communication: In office SURGEON: [] SINDI [x] AD [] MP [] TB [] LM PROCEDURE: [] LRYGB [] LSG [] ANDREWS-S [] ANDREWS [] UNDECIDED [] REV: SPECIFY: Confirmed pt wants to continue with surgical program/plan [x] YES [] NO (complete program withdrawal note/process) CO-MORBIDS: [] NONE [] DM []HTN [] CINDY []GERD [] OTH: PRIVATE PAY: [] NO []YES DATE OF INITIAL BENEFITS VERIFICATION: TRANSFER FU: [] YES [] NO PRIMARY INSURANCE: Payor: [facility] MEDICAID / Plan: [facility] MEDICAID ODM / Product Type: Medicaid HMO / BENEFIT ON PLAN: [] NO [] YES BENEFIT MAX: [] NO [] YES -- BENEFIT MAX: $ EMPLOYER: DIET AND EXERCISE (DE) REQUIREMENT PRIMARY [] NONE []3M [] 6M []9M [] Medicare 4 Months [] SPR (3M) []OTHER: SECONDARY INSURANCE: BENEFIT ON PLAN: [] NO [] YES BENEFIT MAX: [] NO [] YES -- BENEFIT MAX: $ AUTH REQUIRED FROM SECONDARY [] NO [] YES DIET AND EXERCISE REQUIREMENT SECONDARY [] NONE []3M [] 6M [] Medicare 4 months [] SPR (3M) []OTHER: ___ [x] Discussed with patient: Financial cost overview (document signed and pt given copy at new pt consult visit with surgeon), Initial appointments: Bariatric Nutrition Assessment (BNA) & Diet and Exercise (DE) Patient to look for yellow envelope in mail. This yellow envelope will contain orders for labs, testing and required clearances. Pt encouraged to complete early in program to prevent delays. Encourage blood work to be draw by 1st DE appointment. [x] Reviewed OOP cost, including: [] Optifast cost of approximately $130-140/week x weeks immediately prior to surgery - used to induce rapid weight loss which results in decrease in size of liver and therefore facilitates laparoscopically surgery approach. [x] Overview of inpatient admission benefits - estimated inpatient co-pays, deductibles and/or co-insurance - Estimated OOP costs form reviewed with patient, and copy given to patient at new pt visit. [x] Reviewed next steps with patient: 1) Scheduled at new pt surgeon visit: Human Resources Administrator (RD) for a Nutrition Assessment (BNA) and Pre-operative Diet and Exercise (DE) appointment #1. [x] Patient reminded to arrive 15 minutes early for check in. Late arrivals may need to be rescheduled. 2) Schedule: Diet and Exercise Apt #2 only scheduled after initial BNA and DE completed, 3) Behavioral Health apt scheduled after DE started. Reviewed rational and goal of Behavioral Health appointments. 4) [x] Reinforced need to cancel any WMI appointments 48 hours in advance. Cautioned NS/Same day cancellations may result in delay in program or program completion hold. Noted: DE series needs to be a monthly series or insurance company may require repeat of the entire series. 5) [x] Smoker/tobacco products including vaping: reviewed need for cessation before surgery clearance and life long abstinence after surgery for best outcomes. Patient navigation to surgery: [x] Explained to patient that average time from initial consult to date of surgery can be 6-8 months. - Process can take longer if there are cancelled appointments, delays in testing and/or additional clearances that needs to be completed. - Reviewed importance of patient active engagement in making and keeping appointments to keep the process moving. - Reinforced need to cancel appointments at least 48 hours in advance. Reviewed that instances of No Shows and Same Day Appointment Cancellations may result in program/surgery delay or hold. [x] Patient advised of importance of having voicemail and MyChart for office communications and lab/testing results before and after surgery. [facility] 05-01-2023 History of Present illness Narrative [facility] SURGICAL WEIGHT LOSS MANAGEMENT PROGRAM Rooming Note - INITIAL CONSULTATION Patient: Ana Hernandez Date of : 2000 Service Date: 05/01/2023 Patient is here today to discuss the possibility of weight loss surgery. This patient is accompanied by spouse for the evaluation today she is interested in discussing weight loss surgery. Physician Supervised D/E: 3 Weight Metrics: Vitals BP: 119/87 Heart Rate: 79 Resp: 16 Temp: 36.5 C (97.7 F) Baseline Measures Initial Height: 4' 9.5 (146.1 cm) Initial Weight: 187 lb 12.8 oz (85.2 kg) Initial BMI: 40 Initial EBW: 100 lb 4.8 oz (45.5 kg) Initial Waist Cricumference: 42.5 Initial Neck Circumference: 15.5 Falls Risk Assessment Patient does nottake medications which affect BP or mental status Patient does not have newly prescribed or changed dosage of medications within past 30 days which affect BP or mental status Patient has not fallen in the past 2 months Patient does not demonstrate unsteady gait Patient uses the following ambulatory assistive devices: none Patient is low risk for falls. If high or moderate risk, patient instructed not to ambulate independently in the Center, and cord for call light placed within reach of patient. History of Difficult Intubation: No Patient is not on home O2 Completed by: Bety Mullins LPN Images from the original note were not included. CIARAN FRITZ MD , FACS, [facility] MINIMALLY INVASIVE & METABOLIC / BARIATRIC SURGERY [facility] BARIATRIC EVALUATION - HISTORY AND PHYSICAL 05/01/2023 PATIENT: Ana Hernandez DATE OF : 2000 - HISTORY OF PRESENT ILLNESS Chief Complaint: Obesity and associated conditions. Ana Hernandez is a 23 y.o. female with obesity and associated conditions who presents to the [facility] for evaluation for metabolic/bariatric surgery. The patient stands Height: 4' 9.5 (146.1 cm) ([facility] HGT CHK) tall with a weight of Weight: 187 lb 12.8 oz (85.2 kg) , and has a BMI of Body mass index is 39.94 kg/m .. The patient has failed multiple attempts at non-surgical weight loss, and is now seeking surgical intervention to promote permanent and consistent weight loss. The patient suffers from several co-morbidities as a result of obesity as outlined in the past medical history. The patient denies a history of myocardia infarction, deep vein thrombosis, pulmonary embolism, renal failure, hepatic failure, stroke, and seizure. She does not smoke, and does not drink alcohol. Review of Systems Constitutional: Positive for fatigue and unexpected weight change. Negative for activity change, chills and fever. HENT: Negative for congestion. Eyes: Negative for visual disturbance. Respiratory: Positive for apnea, shortness of breath and wheezing. Negative for cough. Cardiovascular: Negative for leg swelling. Gastrointestinal: Negative for abdominal distention, abdominal pain, blood in stool, nausea and vomiting. Endocrine: Negative for cold intolerance and heat intolerance. Genitourinary: Negative for dysuria. Musculoskeletal: Positive for arthralgias. Negative for back pain, gait problem and joint swelling. Skin: Negative for color change, pallor, rash and wound. Neurological: Positive for weakness and headaches. Negative for dizziness and seizures. Hematological: Negative for adenopathy. Psychiatric/Behavioral: Negative for agitation, confusion and sleep disturbance. The patient is not nervous/anxious. PAST HISTORIES Past Medical History: Diagnosis Date Anesthesia complication Anxiety Asthma Depression BIGGS (dyspnea on exertion) Fatigue GERD (gastroesophageal reflux disease) History of UTI Memory difficulty Morbid obesity, unspecified obesity type (HCC) Prediabetes Snoring Past Surgical History: Procedure Laterality Date APPENDECTOMY 2008 SECTION, LOW TRANSVERSE Bilateral TYMPANOSTOMY TUBE PLACEMENT WISDOM TOOTH EXTRACTION 2018 Family History Adopted: Yes Social History Tobacco Use Smoking status: Never Smokeless tobacco: Never Substance Use Topics Alcohol use: Yes Alcohol/week: 1.0 standard drink Types: 1 Standard drinks or equivalent per week @MEDCMED@ Allergies Allergen Reactions Pcn [Penicillins] Rash PHYSICAL EXAM BP 119/87 Pulse 79 Temp 36.5 C (97.7 F) Resp 16 Ht 4' 9.5 (1.461 m) Comment: [facility] HGT CHK Wt 187 lb 12.8 oz (85.2 kg) BMI 39.94 kg/m General: This patient is awake, alert, and oriented, with normal affect and is in no apparent distress. Cardiac: Regular rate and rhythm without evidence of murmur. Respiratory: Clear to auscultation bilaterally with normal effort. Abdomen: Obese, soft, non-tender, non-distended without masses/ No evidence of abdominal hernia / Incisions consistent with previous surgeries. Head and Neck: Obese, normocephalic and atraumatic/soft and supple, no lymphadenopathy or obvious bruits. No thyroidmegaly. Extremities: No cyanosis, clubbing or edema/ No calf tenderness/No restrictions of movement, is ambulatory without assistance. Neurological: Intact x 4 extremities, normal sensation, no focal deficits notes. Skin: Skin cool, warm and dry. No rashes or lesions noted. Rectal: Deferred LABORATORY STUDIES AND IMAGING Laboratory Studies: No results for input(s): NA, K, CL, CO2, BUN, CREATININE, GLUCOSE, CALCIUM in the last 72 hours. No results for input(s): WBC, RBC, HGB, HCT, MCV, MCH, MCHC, RDW, PLT, MPV in the last 72 hours. No results for input(s): ALKPHOS, ALT, AST, PROT, BILITOT, BILIDIR, LIPASE in the last 72 hours. No lab exists for component: LABALBU Imaging Studies: ASSESSMENT Based on today's evaluation, the patient is a candidate for metabolic/bariatric surgical intervention. We spent a great deal of time discussing the risks and benefits of various procedure and the patient is ideally suited for SLEEVE GASTRECTOMY - aka SG. We reviewed the potential risk of the procedure including but not limited to injury to intra-abdominal organs, breakdown of the gastric staple line, the need for re-operative therapy, prolonged hospitalization, mechanical ventilation, and . We discussed the possibility of bleeding, the need for blood transfusions, blood clots, hospital-acquired and intra-abdominal infection, anastomotic stricture, and worsening GERD. And we discussed the need for post-operative visit compliance, behavior modifications and dietary compliance, protein and vitamin supplementation, as well as routine scheduled and dedicated exercise. We discussed the potential weight loss benefit, resolution of co-morbid conditions, as well as the possibility of insufficient weight loss or weight gain after 2 years post-operative time. Upon completion of all required pre-operative testing we will submit for insurance pre-authorization. PLAN Encounter Diagnoses Name Primary? Vitamin D deficiency Morbid obesity with BMI of 40.0-44.9, adult (HCC) Gastroesophageal reflux disease without esophagitis Prediabetes I have recommended proceeding with the evaluation and work-up for the primary procedure as outlined below: PATIENT SUMMARY Ana Fritz 23 y.o. female with Body mass index is 39.94 kg/m . 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 Does not know biological parents PCP: MAGDA KELLY INITIAL TESTING RESULTS Labwork [x] CMP, TSH, Fasting Lipid Profile, Mg, Zinc, Vit B1 (whole blood), Vit B12, 25-OH Vit D, Fe, Ferritin, Folate Tobacco [x] Serum Nicotine / Cotinine [] Negative [] Positive EGD [x] Dx: [x] GERD [] Dyspepsia [] Other Pathology [x] H. pylori [] Negative [] Positive UGI [x] [] not ordered US Abdomen [x] [] not ordered CINDY eval [x] [] On CPAP / Obtain settings Hematology [] [] Hypercoagulation panel Toxicology [] [] Urine drug screen [] EtOH screen Addtional [] [] Hgb A1c INITIAL CONSULTATIONS CLEARANCE / MANAGEMENT Psychology [x] Dietitian [x] Cardiology [x] [] not ordered Pulmonary [] [x] not ordered Others [] []Heme/Onc []Psychiatry []Pain mgmt PSD [] Physician supervised diet: []None [x]3 mos []6 mos Preop diet [] Preop low calory diet: [x]None []1 wk []2 wks []Ext. FINAL PRE-OP TESTING RESULTS Labwork [x] [x]Pre-op CBC [x]BMP []Serum Nicotine / Cotinine EKG [x] CXR [x] POST-OP MEDICATIONS Ulcer Ppx [] Omeprazole 20 mg PO []QD []BID Gallstone Ppx [] Ursodiol 300 mg []BID DVT Ppx [] DVT prophylaxis per final preop visit estimated risk Estimated calculated risk: % Schedule final pre-operative office visit with surgeon, pre-operative education class, and pre-operative exercise class prior to date of surgery ATTESTATION I reviewed with the patient the details of the proposed operation. The risks benefits and options were discussed. Risks included but were not limited to bleeding, infection, damage to other surrounding organs, cardio-pulmonary complications related to anesthesia, conversion from laparoscopic to and open procedure, the need for reoperative or endoscopic therapy, the potential for prolonged mechanical ventilation, and . All questions were fully answered to the patient's satisfaction and they wish to proceed with surgical intervention. A total of over 45 minute visit was spent in face to face encounter, counseling the patient, discussing the surgical/perioperative plan, record review and documentation. The patient was seen and examined independently and relevant data including a full chart rreview was performed by myself. AN FRITZ MD, [facility], [facility] Fusion Operator - Weight Management [place] [facility] Legal Stenographer - Advanced GI MIS, Foregut and Bariatric Surgery Fellowship ---[facility]--- Patient Care Team: Magda Kelly as PCP - General Ciaran Fritz MD as Surgeon (General Surgery) documented in this encounter [facility] 04-09-2023 History of Present illness Narrative Medication questions reviewed and answered documented in this encounter [facility] 04-08-2023 History of Present illness Narrative Medication questions answered documented in this encounter [facility] 03-05-2023 Note HNO ID: [id number] Author: NBAEEL Tang Service: ? Author Type: Physician Knitting Machine Fixer Type: Progress Notes Filed: 03/05/2023 2:57 PM Note Text: This note was created using NoteWriter. Subjective Ana Hernandez is a 23 year old female. HPI 23-year-old female presents for sore throat, headache x2 days. Patient states on Saturday she started getting a sore throat. She states that it got worse yesterday. She has had fevers on and off. She did take Motrin today. States that she has a headache, not the worst headache of her life. No vision changes. States her neck hurts a little bit from her sore throat. She denies any vomiting or diarrhea. No cough or other URI symptoms. Does report that she was around somebody with COVID, but they were out of their isolation window. PAST MEDICAL HISTORY Diagnosis Date Asthma Concussion 10/12 seizure like activity, knocked out. 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 PAST SURGICAL HISTORY Procedure Laterality Date ADENOIDECTOMY HX APPENDECTOMY 10/09 MYRINGOTOMY HX PAST SURGICAL HISTORY OF tubes in ears x 4 PAST SURGICAL HISTORY OF adnoidectomy ALLERGIES Omnicef [Cefdinir], Penicillins, Prozac [Fluoxetine Hcl], and Seasonal Allergies MEDICATIONS lithium carbonate (ESKALITH) 300 mg capsule Take 300 mg by mouth three times daily with meals. albuterol (PROVENTIL) 2.5 mg /3 mL (0.083 %) nebulizer solution Use 3 mL via nebulizer every 4 hours as needed. OVER 5-15 MINUTES. FOR WHEEZING AND SHORTNESS OF BREATH. albuterol HFA (PROAIR HFA) 90 mcg/actuation inhaler Inhale 2 Puffs as instructed every 4 hours as needed. + Nebulizer Supplies Nebulizer, Mask, AND O2 Tubing. Use as directed. Lancets (FREESTYLE LANCETS) lancets Check BG 3-4 times daily escitalopram oxalate (LEXAPRO) 10 mg tablet Take 1 tablet by mouth once daily. (Patient not taking: Reported on 03/05/2023) azithromycin (ZITHROMAX) 250 mg tablet (Patient not taking: Reported on 03/05/2023) mometasone-formoterol (DULERA) 100-5 mcg/actuation inhaler Inhale 2 Puffs as instructed twice daily. (Patient not taking: Reported on 01/15/2020 ) PROAIR RESPICLICK 90 mcg/actuation aepb Inhale 2 Puffs as instructed every 4 hours as needed. oral electrolytes tab (THERMOTABS) 287-180-15 mg tab Take 2 thermotabs bid po (Patient not taking: Reported on 12/30/2018 ) metFORMIN (GLUCOPHAGE) 500 mg tablet Take 1 tablet by mouth twice daily with meals. (Patient not taking: Reported on 01/15/2020 ) oxybutynin XL (DITROPAN XL) 5 mg 24 hr tablet Take 1 tablet by mouth once daily. (Patient not taking: Reported on 11/04/2018 ) CALCIUM CARBONATE/VITAMIN D3 (VITAMIN D-3 ORAL) Take by mouth 3 times a WEEK. predniSONE (DELTASONE) 20 mg tablet Osmdxlyidmvolhj-Zjzhbnlwa-FA (BROMFED DM) 2-30-10 mg/5 mL syrup Take 5 mL by mouth four times daily as needed. (Patient not taking: Reported on 11/04/2018 ) ibuprofen (MOTRIN) 600 mg tablet Take 1 tablet by mouth every 6 hours as needed for Pain. meloxicam (MOBIC) 15 mg tablet Take 1 tablet by mouth once daily. (Patient not taking: Reported on 11/04/2018 ) fluticasone (FLONASE) 50 mcg/actuation nasal spray Use 2 Sprays in each nostril once daily. (Patient not taking: Reported on 12/30/2018 ) blood sugar diagnostic (FREESTYLE LITE STRIPS) test strip Check BG atleast 2 times daily and also when does not feel well. triamcinolone (KENALOG) 0.1 % lotion Apply 1 application to affected area twice daily. (Patient not taking: Reported on 11/04/2018 ) nebulizer accessories(OPTICHAMBER MEDIUM FACE MASK) use with albuterol FAMILY HISTORY Adopted: Yes Problem Relation Age of Onset other (aids) Mother biological mom Social History Tobacco Use Smoking status: Never Passive exposure: Yes Smokeless tobacco: Never Tobacco comments: brother smokes outside Substance Use Topics Alcohol use: No Drug use: No Review of Systems Constitutional: Positive for fever. Negative for chills. HENT: Positive for sore throat. Negative for congestion and ear pain. Respiratory: Negative for cough and shortness of breath. Cardiovascular: Negative for chest pain. Gastrointestinal: Negative for diarrhea and vomiting. Neurological: Positive for headaches. Objective BP 128/82 Pulse (!) 134 Temp 36.8 ?C (98.2 ?F) (Tympanic) Resp 18 Wt 83.6 kg (184 lb 3.2 oz) LMP 02/17/2023 (Exact Date) SpO2 98% Physical Exam Vitals and nursing note reviewed. Constitutional: General: She is not in acute distress. Appearance: Normal appearance. She is not toxic-appearing. HENT: Right Ear: Tympanic membrane and ear canal normal. Left Ear: Tympanic membrane a (more content not included)... [facility] 03-05-2023 History of Present illness Narrative This note was created using naaptol. Subjective Ana Hernandez is a 23 year old female. HPI 23-year-old female presents for sore throat, headache x2 days. Patient states on Saturday she started getting a sore throat. She states that it got worse yesterday. She has had fevers on and off. She did take Motrin today. States that she has a headache, not the worst headache of her life. No vision changes. States her neck hurts a little bit from her sore throat. She denies any vomiting or diarrhea. No cough or other URI symptoms. Does report that she was around somebody with COVID, but they were out of their isolation window. PAST MEDICAL HISTORY Diagnosis Date Asthma Concussion 10/12 seizure like activity, knocked out. 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 PAST SURGICAL HISTORY Procedure Laterality Date ADENOIDECTOMY HX APPENDECTOMY 10/09 MYRINGOTOMY HX PAST SURGICAL HISTORY OF tubes in ears x 4 PAST SURGICAL HISTORY OF adnoidectomy ALLERGIES Omnicef [Cefdinir], Penicillins, Prozac [Fluoxetine Hcl], and Seasonal Allergies MEDICATIONS lithium carbonate (ESKALITH) 300 mg capsule Take 300 mg by mouth three times daily with meals. albuterol (PROVENTIL) 2.5 mg /3 mL (0.083 %) nebulizer solution Use 3 mL via nebulizer every 4 hours as needed. OVER 5-15 MINUTES. FOR WHEEZING AND SHORTNESS OF BREATH. albuterol HFA (PROAIR HFA) 90 mcg/actuation inhaler Inhale 2 Puffs as instructed every 4 hours as needed. + Nebulizer Supplies Nebulizer, Mask, & O2 Tubing. Use as directed. Lancets (FREESTYLE LANCETS) lancets Check BG 3-4 times daily escitalopram oxalate (LEXAPRO) 10 mg tablet Take 1 tablet by mouth once daily. (Patient not taking: Reported on 03/05/2023) azithromycin (ZITHROMAX) 250 mg tablet (Patient not taking: Reported on 03/05/2023) mometasone-formoterol (DULERA) 100-5 mcg/actuation inhaler Inhale 2 Puffs as instructed twice daily. (Patient not taking: Reported on 01/15/2020 ) PROAIR RESPICLICK 90 mcg/actuation aepb Inhale 2 Puffs as instructed every 4 hours as needed. oral electrolytes tab (THERMOTABS) 287-180-15 mg tab Take 2 thermotabs bid po (Patient not taking: Reported on 12/30/2018 ) metFORMIN (GLUCOPHAGE) 500 mg tablet Take 1 tablet by mouth twice daily with meals. (Patient not taking: Reported on 01/15/2020 ) oxybutynin XL (DITROPAN XL) 5 mg 24 hr tablet Take 1 tablet by mouth once daily. (Patient not taking: Reported on 11/04/2018 ) CALCIUM CARBONATE/VITAMIN D3 (VITAMIN D-3 ORAL) Take by mouth 3 times a WEEK. predniSONE (DELTASONE) 20 mg tablet Celomgjwamarzuq-Pcayafzsg-ID (BROMFED DM) 2-30-10 mg/5 mL syrup Take 5 mL by mouth four times daily as needed. (Patient not taking: Reported on 11/04/2018 ) ibuprofen (MOTRIN) 600 mg tablet Take 1 tablet by mouth every 6 hours as needed for Pain. meloxicam (MOBIC) 15 mg tablet Take 1 tablet by mouth once daily. (Patient not taking: Reported on 11/04/2018 ) fluticasone (FLONASE) 50 mcg/actuation nasal spray Use 2 Sprays in each nostril once daily. (Patient not taking: Reported on 12/30/2018 ) blood sugar diagnostic (FREESTYLE LITE STRIPS) test strip Check BG atleast 2 times daily and also when does not feel well. triamcinolone (KENALOG) 0.1 % lotion Apply 1 application to affected area twice daily. (Patient not taking: Reported on 11/04/2018 ) nebulizer accessories(OPTICHAMBER MEDIUM FACE MASK) use with albuterol FAMILY HISTORY Adopted: Yes Problem Relation Age of Onset other (aids) Mother biological mom Social History Tobacco Use Smoking status: Never Passive exposure: Yes Smokeless tobacco: Never Tobacco comments: brother smokes outside Substance Use Topics Alcohol use: No Drug use: No Review of Systems Constitutional: Positive for fever. Negative for chills. HENT: Positive for sore throat. Negative for congestion and ear pain. Respiratory: Negative for cough and shortness of breath. Cardiovascular: Negative for chest pain. Gastrointestinal: Negative for diarrhea and vomiting. Neurological: Positive for headaches. Objective BP 128/82 Pulse (!) 134 Temp 36.8 C (98.2 F) (Tympanic) Resp 18 Wt 83.6 kg (184 lb 3.2 oz) LMP 02/17/2023 (Exact Date) SpO2 98% Physical Exam Vitals and nursing note reviewed. Constitutional: General: She is not in acute distress. Appearance: Normal appearance. She is not toxic-appearing. HENT: Right Ear: Tympanic membrane and ear canal normal. Left Ear: Tympanic membrane and ear canal normal. Nose: Nose normal. Mouth/Throat: Mouth: Mucous membranes are moist. Pharynx: Uvula midline. Posterior oropharyngeal erythema present. Tonsils: Tonsillar exudate present. No tonsillar abscesses. 2+ on the right. 2+ on the left. Eyes: Conjunctiva/sclera: Conjunctivae normal. Cardiovascular: Rate and Rhythm: Regular rhythm. Tachycardia present. Comments: HR 108 on my examination. Pulmonary: Effort: Pulmonary effort is normal. Breath sounds: Normal breath sounds. Neurological: Mental Status: She is alert. Assessment and Plan ASSESSMENT/PLAN: 1. Strep pharyngitis - ICD9: 034.0, ICD10: J02.0 (primary diagnosis) - suspect strep - Alere Strep Test positive, no culture pending - RX for azithromycin, allergy to penicillin and flagyl - Discussed supportive care treatment with fluids, rest and analgesia. -Patient is tachycardic. Advised to drink plenty of fluids. Nursing noted heart rate at 130, but on my exam, heart rate was 108. 2. Throat pain - ICD9: 784.1, ICD10: R07.0 - STREP A MOLECULAR (POC) Diagnosis and treatment plan were discussed and questions were answered to the patient's satisfaction. Pt acknowledged understanding of concepts and follow up plan. Specific signs and symptoms that would indicate the need for higher level of care were discussed in detail warranting prompt ER evaluation. NABEEL Tang documented in this encounter [facility] 02-12-2023 History of Present illness Narrative Medication sent to the pharmacy documented in this encounter [facility] 01-09-2023 History of Present illness Narrative BEHAVIORAL HEALTH PSYCHIATRIC PROGRESS NOTE 01/09/2023 Ana Hernandez, a 22 y.o. female, for follow-up visit. Patient is referred by Physician No . Interval History: Ana is here with her and baby today. She has been feeling well and stable on lithium alone. For some reason her Invega prescription was not filled but she has done fine without it. The voices have responded to lithium as well as mood swings, excessive anxiety and suicidal thinking. She is basically asymptomatic at this time. Her concurs. No unusual side effects to lithium. PFSH: Past Medical History: Diagnosis Date Asthma Diabetes mellitus (HCC) Social History Substance and Sexual Activity Alcohol Use Never Social History Substance and Sexual Activity Drug Use Never Social History Substance and Sexual Activity Sexual Activity Yes Partners: Male control/protection: I.U.D. Comment: will have IUD after medically cleared from having baby Family History Adopted: Yes Family history unknown: Yes The following portions of the patient's history were reviewed and updated as appropriate: allergies, current medications, past family history, past medical history, past social history, past surgical history, and problem list. Review of Systems All other systems reviewed and are negative. Physical Exam PSYCHIATRIC EXAM: Grooming & Hygiene: well groomed General Behavior: pleasant & cooperative Psychomotor Activity: no psychomotor abnormalities Speech: Within normal limits Flow to Thought: logical & goal directed Thought Associations: Intact Content of Thought: No evidence of suicidal idealizations / homicidal idealizations / delusions / obsessions Mood: Stable and positive Affect: full range Insight: intact Judgment: good Orientation: alert and oriented to person, place, time Memory: Recent intact Attention: intact Concentration: intact Language: Within normal limits Fund of Knowledge: intact Labs/ Diagnostic Imaging reviewed: [place] level on 12/24/2022 0.6 mEq/L Response to Medication: Good ASSESSMENT AND PLAN: A: Schizoaffective disorder bipolar type, complete remission of symptoms on lithium alone. P: Continue lithium at therapeutic levels Follow-up plan was discussed with patient. Impression/ Plan: No Changes [place] I: Schizoaffective Disorder [place] II: No diagnosis [place] III: See problem list [place] IV: other psychosocial or environmental problems [place] V: 61-70 mild symptoms Recommendations: RTC 3 months Review with patient: Treatment plan reviewed with the patient. Medication risks/benefit reviewed with the patient Total Time: 15 minutes>50% time counseling or coordinating care DIAGNOSIS: F25.0 patient and spouse has been informed of the benefits, risks, possible side effects and alternatives to the medical treatment listed above and have expressed understanding Total Time: 15 minutes __ >50% time counseling or coordinating care Belgica Strange documented in this encounter [facility] 12-24-2022 History of Present illness Narrative Patient's status/progress reviewed in morning safety huddle. Nursing reported that the patient slept for 8. 5 hours, had a good visit with spouse, and remains controlled/cooperative. I stopped to see the patient and appeared with bright affect and smiling. Patient reported feeling better and hopeful to discharge today. No other needs identified patient at this time. Clinical team met and patient's case staffed; Dr. Strange will talk to the patient and evaluate for discharge. Patient is discharged and will followup with Dr. Strange and [facility] for mental health services. No AVS sent as there was no JANET signed for the [facility] and Dr. Strange already linked in [employer]. Upon arrival patient was sleeping in bed. Woke up for vitals and breakfast. Patient acknowledges this student upon approach. After breakfast, patient read a book in bed in room. Calm and controlled. Dressed in street wear. Attended group. Time in Group: 929 Pt is dressed appropriate and sitting on her bed when approached. She declined to attend group initially, however, changed her mind when encouraged to attend. Goal: Pt states she is feeling numb, calm and content. Her goal for today is to go home. Steps include talk to the doctor, come up with a safety plan. Goal is important because I want to be home with my family. Life Skills: Pt participated in an experiential activity called [employer]. Pt pulled a colored block from a stacked tower while attempting to keep the tower from falling. Pt would then read a question that matched the color of the block pulled. Questions were pertaining to the development of self esteem. Pt had difficulty responding to questions though was receptive to feedback. One such was changes that she needs to made to maintain stability and not being able to identify any. 0730 Report received , previous shift notes and labs ,orders reviewed , patient resting quietly resp unlabored 0910 Patient reading a book , pleasant controlled and cooperative rates depression a 3 or 4 denies anxiety , denies hearing voices , per patient good appetite and sleeping well , patient states I am just waiting to see Dr. Strange I am hoping to leave today ,she told me 3 -4 days just to be here in a controlled environment while starting on the lithium , oral check done at this time 0940 Patient attending life skills group 1145 Discharge order receieved from maxine Strange obtained and signed by patient prior to discharge , discharge orders reviewed ,with patient Dr. Strange ordered lithium level to be checked prior to patient discharge , Xander aware patient had dose of lithium this am per scheduled orders . 1152 Lab here lithium level drawn per orders 0015 Patient received meds to bed other than invega , pharmacy informed patient to poultry picker invega at her pharmacy [address] Strange that lithium results are still not available , ok to administer scheduled dose prior to discharge states I will review results later patient given lithium per orders and oral chek done tolerated well no further concerns or questions at this time. 1305 patient left discharged at this time ride here .controlledand cooperative denies SI 19:20 - Assumed care of patient. Patient seated in TV lounge. Calm and controlled. Dressed in street wear. No odor noted, clean, groomed. Patient acknowledges this nurse upon approach. Maintains good eye contact. Accepts a drink of kathleen allyssa refuses snack. 20:00 - Patient seated in TV lounge, watching TV. Appropriate, calm, and controlled. 21:13 - Patient in room, awake in bed. Provided routine clindamycin 300 mg. Administered without issue. Mouth check completed. Patient requests a t shirt as she is hot . T shirt provided. Patient thankful. Patient reports sleep as good and a noticeable decrease in AH. I had a good day today. Patient reports sleep as good. Patient shares that she does feel she is starting to feel better. Patient reports a good visit with today. Patient denies any additional needs at this time. 22:00 - Patient in bed, resting with eyes closed. Breathing is regular and unlabored. 23:00 - Patient in bed, resting with eyes closed. Breathing is regular and unlabored. 00:00 - Patient in bed, resting with eyes closed. Breathing is regular and unlabored. 01:00 - Patient in bed, resting with eyes closed. Breathing is regular and unlabored. 02:00 - Patient in bed, resting with eyes closed. Breathing is regular and unlabored. 03:00 - Patient in bed, resting with eyes closed. Breathing is regular and unlabored. 04:00 - Patient in bed, resting with eyes closed. Breathing is regular and unlabored. 05:00 - Patient in bed, resting with eyes closed. Breathing is regular and unlabored. 06:00 - Patient is bed, resting with eyes closed. Breathing is regular and unlabored. Total hours of sleep for shift 8.5 Psychiatry Progress Note Patient Name: Ana Hernandez Admit Date: [id number] MR #: [id number] : 2000 Perpetual Assessment Ana Hernandez is a 22 y.o. female presenting with gradually worsening symptoms of psychosis and bipolar mood swings. She is currently dealing with dangerous levels of suicidal ideation. She needs hospitalization despite a very tight network of support as an outpatient Diagnosis & Plan/Recommendations PRINCIPAL DIAGNOSIS: Schizoaffective disorder, bipolar type (HCC) * Schizoaffective disorder, bipolar type (HCC) Assessment & Plan A: Ana has suffered a progressive increase in symptoms since her last discharge from the hospital about a year ago. She is now hearing voices continually which are negative and which urge her to harm herself. Her mind races, which she finds very bothersome and which interferes with her concentration ability to perform her work. She is anxious and dysphoric and has suicidal thoughts multiple times a day. She does not actually have an intent or plan and yet she cannot say that she would seek help before acting on her thoughts. She has, in the last year, overdosed on medication and not told anybody until several days later. She is not able to sleep, she is irritable, and she feels worthless and useless. No substance abuse. She is compliant with her treatment and with medications on an outpatient basis. P: Admit to inpatient psychiatry for patient safety and stabilization Suicide precautions Change medications to lithium at the levels and Invega 3 mg daily Appropriate lab monitoring of lithium Individual and group therapies [facility] Internal medicine consult for H&P and addressing any issues identified Social work consult for discharge planning and collateral information Comorbid issues impacting my care plan include pre diabetes . Following for hallucinations, suicidal ideations Interval History: Patient is today on her 3 day of inpatient psychiatric stay. Patient was awake and alert. She was found sitting down on her hospital bed. She was pleasant and polite and did not appear to be responding to internal stimuli. Patient reports that she is starting to notice improvement. Hallucinations that she has been experiencing for a long time have now become silent and this is causing patient to feel better. She has been compliant with medications and has not noticed any side effects besides sedation. She denied any tremors or abnormal movements. Patient has started to participate in groups. Her behavior has been under control and she has not threatened anyone. Patient has been taking care of her hygiene and daily activities and is looking forward to her visiting later today. Review of Systems: Constitutional:No fever, no weight loss Eyes:No diplopia ENT:No sinus drainage CV:No chest pain. No ankle swelling Resp:No dyspnea. No wheezing GI:No abdominal pain.No abdominal distention :No dysuria Neuro:No headache Integumentary:No skin rash MuscSkel:No arthralgias Endo:No polyuria Heme/lymphatic:No apparent lymphadenopathy Allergic/Immunologic:No hives Physical Examination: Vital Signs: BP 123/86 (BP Location: Left arm, Patient Position: Sitting) Pulse (!) 134 Temp 98 F (36.7 C) (Temporal) Resp 14 Ht 4' 8 Wt 84.8 kg (187 lb) LMP 12/15/2022 (Exact Date) SpO2 98% BMI 41.92 kg/m Mental Status Evaluation: General Appearance & Behavior: age appropiate, obese, and cooperative Grooming & Hygiene: street clothes Psychomotor Activity: no psychomotor abnormalities or muscle atrophy noted Gait & Station stable gait and ability to rise from bed/chair without assistance Speech: pressured Flow of Thought: linear and goal directed Thought Associations: Intact Content of Thought: Denied hallucinations Mood: good Affect: reactive Insight: fair Judgment: fair Orientation: alert and oriented to person, place, time, and circumstances Memory: intact recent and remote Attention: intact Concentration: intact Language: fluent Fund of Knowledge: estimated average intelligence Laboratory and Additional Data Reviewed: Laboratory 12/23/22 4:57 PM Medications 12/23/22 4:57 PM Treatment options and alternatives reviewed with patient. Risks, benefits, side effects of all psychiatric medications discussed with patient and informed consent obtained. All questions were answered. Lebron Berumen MD 12/23/2022 4:57 PM [id number] Recreation Therapy: PT out in TV lounge when approached for group, willing to attend. Pt dressed in PJs but voiced that she was going to take shower and change clothes so to be pretty for when my comes tonight . PT was educated to the focus and purpose of group and to new leisure skill of Sequence a card and board game. PT only one in group and questioned television writer what I would do if she was not in group, to which answer was given and pt presented self as if doing television writer a favor by being in group because pt did not truly want to be there themselves. PT attentive to directions, retained them well and applied them just the same. PT able to play independently using strategy well. PT won game quickly and when asked to engage in another round declined citing that she needed to shower and get ready for visitation that was over 3 hours away. PT resting soundly in bed, did not wake to being addressed, thus did not attend. 0721: Patient laying in bed, calm even and unlabored respirations, patient repositions self, prone position at this time. 0848: Patient approached nurse's station, requested to take Elizabethton , administered as ordered, patient tolerated well, oral cavity check cleared. 0909: Obtained patient's vital signs, temporal temperature of 98.0 degrees Fahrenheit, heart rate of 134, alerted physician, respirations of 14, blood pressure 123/86, LEFT arm, sitting position, oxygen saturation of 98% on room air. 0923: Administered morning medications at bedside, patient tolerated well, oral cavity check cleared. Patient euthymic, socially appropriate with this nurse, denies further needs at this time. 1127: Delivered patient's lunch tray to bedside, patient awoke, thanked and denies further needs at this time. Administered scheduled Elizabethton per orders, patient tolerated well, oral cavity check cleared. 1214: Patient ambulated from room, now seated in the lounge with peer, socially appropriate, calm composed, denies needs at present. 1405: Patient attending group therapy session in the conference room, recreational activity of Sequence played with S. Aruna-Nupen, CREATIVE MANAGER socially appropriate, engaged in the activity. 1505: Patient requested shower hygiene products, provided to patient from clean supply. Patient agreed to interaction, patient denies anxiety/depression, stating I fell pretty good actually , patient denies HI, patient denies auditory/visual disturbances, patient verbalizes ability to keep self safe from self harm, patient appetite is good, sleep pattern reportedly good . Patient has been out of room, socially appropriate, attends groups, pleasant on the phone with mother, patient denies physical pain. 1711: Patient seated in the lounge upon approach, filling out menu selections for tomorrow's meals, administered Elizabethton dose per orders, patient tolerated well, oral cavity check cleared. Patient denies further needs. 1826: Patient's arrived for visitation, mask worn properly, now seated together in the lounge, socializing appropriately, calm composed at the time of this writing. 1935: Pt brings phone back to nurses station. Pt casual, pleasant, controlled, cooperative, and makes appropriate eye contact. Pt provided snack and drink per request. Denies further needs and [place] [facility]: [facility]. When asked how pt feeling, pt replies I feel slow. It's weird, like I'm moving in slow motion . Pt reports thoughts also feel slowed down. Pt states I think it's because of the meds . Pt reports Invega was increased and Elizabethton added to medications. Pt also reports feeling a little dizzy, especially when getting up. Talked about side effects of medications and to get up slowly. Also encouraged fluids. Checked pt vitals and WDL. Printed information about new medications and went over common side effects and serious ones to monitor for. Pt verbalizes understanding to come to staff if these occur and talk to doctor about current ones. Pt denies SI/HI and verbalizes understanding and intent to come to staff if these occur. Pt reports medications are helping with voices and that they are currently silent. Pt rates anxiety 0/10 and depression 4/10. 2030: Pt takes scheduled night medication without problem. Mouth check complete. PRN Atarax administered per pt request to help fall asleep. Urine sample provided for culture. Pt denies further needs. 2245: Pt resting quietly in bed with even and unlabored respirations. 0100: Pt continues to rest quietly in bed with even and unlabored respirations. 0300: Pt continues to rest quietly in bed with even and unlabored respirations. 0500: Pt continues to rest quietly in bed with even and unlabored respirations. 0645: Pt continues to rest quietly in bed with even and unlabored respirations. Pt has slept approx 7.5 hours uninterrupted. PT resting soundly in bed, did not wake to being addressed, thus did not attend. Psychiatry Progress Note Patient Name: Ana Hernandez Admit Date: 1190104 MR #: [id number] : 2000 Perpetual Assessment Ana Hernandez is a 22 y.o. female presenting with gradually worsening symptoms of psychosis and bipolar mood swings. She is currently dealing with dangerous levels of suicidal ideation. She needs hospitalization despite a very tight network of support as an outpatient Diagnosis & Plan/Recommendations PRINCIPAL DIAGNOSIS: Schizoaffective disorder, bipolar type (HCC) * Schizoaffective disorder, bipolar type (HCC) Assessment & Plan A: Ana has suffered a progressive increase in symptoms since her last discharge from the hospital about a year ago. She is now hearing voices continually which are negative and which urge her to harm herself. Her mind races, which she finds very bothersome and which interferes with her concentration ability to perform her work. She is anxious and dysphoric and has suicidal thoughts multiple times a day. She does not actually have an intent or plan and yet she cannot say that she would seek help before acting on her thoughts. She has, in the last year, overdosed on medication and not told anybody until several days later. She is not able to sleep, she is irritable, and she feels worthless and useless. No substance abuse. She is compliant with her treatment and with medications on an outpatient basis. P: Admit to inpatient psychiatry for patient safety and stabilization Suicide precautions Change medications to lithium at the levels and Invega 3 mg daily Appropriate lab monitoring of lithium Individual and group therapies Mil[facility] Internal medicine consult for H&P and addressing any issues identified Social work consult for discharge planning and collateral information Comorbid issues impacting my care plan include pre diabetes . Following for hallucinations, suicidal ideations Interval History: Patient is today on her 2 day of inpatient psychiatric stay. She was awake and alert and recognized note television writer from prior hospitalizations. Patient has been exposed to trauma and it was not until a few months ago that patient confessed that she has been experiencing auditory hallucinations for several years. She continues to hear them and reports distress from this to the point of having suicidal ideations. Patient was reported to have slept 10 hours last night and even though she reported improved energy she refused to attend groups. Patient reported frustration from weight gain from antipsychotics in the past but is willing to receive treatment with Elizabethton and Paliperidone. Review of Systems: Constitutional:No fever, no weight loss Eyes:No diplopia ENT:No sinus drainage CV:No chest pain. No ankle swelling Resp:No dyspnea. No wheezing GI:No abdominal pain.No abdominal distention :No dysuria Neuro:No headache Integumentary:No skin rash MuscSkel:No arthralgias Endo:No polyuria Heme/lymphatic:No apparent lymphadenopathy Allergic/Immunologic:No hives Physical Examination: Vital Signs: BP 113/78 (BP Location: Left arm, Patient Position: Sitting) Pulse 85 Temp 97.9 F (36.6 C) Resp 16 Ht 4' 8 Wt 84.8 kg (187 lb) LMP 12/15/2022 (Exact Date) SpO2 98% BMI 41.92 kg/m Mental Status Evaluation: General Appearance & Behavior: age appropiate, obese, and cooperative Grooming & Hygiene: street clothes Psychomotor Activity: no psychomotor abnormalities or muscle atrophy noted Gait & Station stable gait and ability to rise from bed/chair without assistance Speech: pressured Flow of Thought: linear and goal directed Thought Associations: Intact Content of Thought: auditory hallucinations Mood: So, so Affect: anxious Insight: limited Judgment: limited Orientation: alert and oriented to person, place, time, and circumstances Memory: intact recent and remote Attention: intact Concentration: intact Language: fluent Fund of Knowledge: estimated average intelligence Laboratory and Additional Data Reviewed: Laboratory 12/22/22 12:55 PM Medications 12/22/22 12:55 PM Treatment options and alternatives reviewed with patient. Risks, benefits, side effects of all psychiatric medications discussed with patient and informed consent obtained. All questions were answered. Lebron Berumen MD 12/22/2022 12:48 PM 0730: Pt resting in bed with eyes closed. Respirations even and unlabored. 0816: VS obtained. Pt is alert and oriented up to nurses station. Calm and cooperative. Maintains good eye contact. Flat affect. Pt is dressed in street clothes. Pt denies SI/HI/AH/VH. Pt agrees to use coping skills and alert staff if SI/HI occurs. No delusions observed. Pt rates anxiety and depression both 0/10 at this time. Pt states she slept well and has an ok appetite. Pt received scheduled medication and took without difficulty. No medication noted upon oral cavity inspection. Pt verbalizes name and use of medications. Encouraged pt to express needs to staff. Pt educated on importance of mask use. Pt opted to not wear mask at this time. 0918: Pt up to nurses station and states I'm having a lot of racing thoughts right now and the voices are really bad. Pt requests PRN. PRN zyprexa PO given at this time. 1019: [place] [facility] [place] Pt reports previous PRN medication helped some. Pt given PRN atarax PO at this time. 1119: Pt reports PRN medication was effective. 1143: [place] [facility] Calm and controlled. Pt received scheduled medication and took without difficulty. No medication noted upon oral cavity inspection. 1400: Pt resting in bed with eyes closed. Respirations even and unlabored. 1636: [facility]. Calm and controlled. Pt received scheduled medication and took without difficulty. No medication noted upon oral cavity inspection. 1830: Pt resting in bed with eyes closed. Respirations even and unlabored. PT out in TV lounge, dressed appropriately in street clothes, when approached to attend group. PT pleasant with interaction, quiet and reserved, but declined to attend group citing no, I am good this morning . PT encouraged to attend but consistent with decision. 1930 Assumed care of patient until 0730 AM. Patient is sitting in lounge, Watching TV. Patient is quiet. Denies urge to harm self. Denies hallucinations. Patient complains of tiredness. 2003 Medicated with antibiotic as requested. Patient is resting quietly in bed with even respirations. 2099 Patient is resting quietly in bed. 0 Patient is changing positions in bed at times. 0400 Patient is resting quietly in bed. 0600 Patient has rested quietly in bed approximately 10 hours to present. Will continue to observe patient this shift. This worker attempted to call the patient's spouse. No answer. 7003 - 1223 Recreation Therapy: Pt participated in learning/playing the card game called Skip-Curt which she was unfamiliar with. Pt grasped this game easily and demonstrated appropriate use of strategy, problem solving, and decision making skills. Her behavior was cooperative and controlled. Her mood was pleasant and affect spontaneous. Pt voiced enjoyment in learning this game. I reviewed the patient's chart and the patient signed voluntary psych consent and JANET for her spouse. I met with patient who remembered this worker from a prior admission. Patient reported biggest issue is hearing voices and having racing thoughts. Patient hoping that Dr. Strange will help her get his under control. Patient reported that she will continue to see Dr. Strange in outpatient clinic and continue with marriage counseling that she and her attend. Patient did not need any appointments scheduled. I asked patient if there was anything else this worker could do for the patient and no other needs identified at this time. Clinical team met and patient's case staffed: Patient just admitted for treatment 08:00 Patient resting on bed with eyes open. Ate about 25% of her breakfast. Rates her depression a 6 and her anxiety a 5 . States she slept well last night. States she still hears voices all the time. Said most of the time the voices are loud and telling her negative things. Denies any suicidal or homicidal thoughts at present time. Patient offered a face mask for covid safety, but patient declined. Asking about if she should continue an antibiotic for her UTI. States she still has itching and a bad smell . Informed patient that Tiny Shi NP would be told about her UTI and that she would look into if she needed more antibiotics. Patient reading in bed. No further complaints at this time. 08:30 Patient compliant with medications. Mouth check done to ensure medication compliance. 11:30 Patient ate about 75% of lunch in her room. No voiced complaints. 13:45 Patient showered in her room. 14:21 Flu vaccine given per patient request. 16:45 Patient ate about 100% of dinner in the dining area. Patient given a warm shirt to wear from the clothes closet. Patient appreciative. No voiced complaints. Smiling. States she is still hearing a voice most all the time. 17:22 Vistaril 50 mg orally given per request of patient for complaints of anxiety. 18:10 Sitting in lounge area watching TV. States that the Vistaril has helped a little to decrease my anxiety . 19:53 - Patient to unit from ED. Dressed in [facility] gown. Alert and oriented x4. Calm and composed. Skin check and personal search completed by DEZ Mcmillan. Vitals obtained. See flow sheet. Patient chooses to sit on bed in dark d/t headache at this time. Denies any additional needs. 19:20 - Assumed care of this patient. Patient greets this nurse appropriately. Maintains good eye contact. Remains calm and controlled. States that she has a headache rated a 7/10 in her left anabaptist region. This nurse leaves lights off for admission process to help with discomfort. Patient answers all questions. States reason she is here is I have been having command, auditory hallucinations for awhile. I was seeing Dr. Strange today and she had me come over. Patient endorses AH currently. Denies VH as well as SI/HI. Patient does say the command AH do tell her to self harm. Reports voices being constant. Patient state, and mom are excellent supports systems and that she is hoping to get some medication adjustments while she is here. Patient reports appetite as ok but reports sleep as broken and interrupted. States, I usually get around 8 hours but it is never consistent. Patient is clean, no odor noted, contraband search completed by Suzan GARCES. Patient agrees to come to staff if plan of SI or HI change. Patient accepts a snack of a string cheese and a yogurt. Patient reports that she is a diabetic but never checks sugars at home and stays maintained. It's a non issue. No ACHS ordered at this time. Patient denies any additional needs at this moment. This nurse leaves to gather consents in order to administer medication for headache pain management. 20:01 - Ibuprofen 600 mg administered at bedside for 7/10 DRAKE. Patient takes without issue. Mouth check completed. Patient is appreciative, denies any additional needs and rolls towards the wall to rest. 21:00 - Patient resting in bed with eyes closed. Breathing is regular and unlabored. 22:00 - Patient resting with eyes closed. Breathing is regular and unlabored. 23:00 - Patient resting with eyes closed. Breathing is regular and unlabored. 00:00 - Patient is resting with eyes closed. Breathing is regular and unlabored. 01:00 - Patient is resting with eyes closed. Breathing is regular and unlabored. 01:30 - Patient at nurse's station requesting a peanut butter sandwich and kathleen allyssa. Returns to bed after receiving. This nurse tells patient called earlier to check on her but she was sleeping and did not wake upon attempt to give phone to her. 02:00 - Patient resting in bed with eyes closed. Breathing is regular and unlabored. 03:00 - Patient resting in bed with eyes closed. Breathing is regular and unlabored. 04:00 - Patient resting in bed with eyes closed. Breathing is regular and unlabored. 05:00 - Patient resting in bed with eyes closed. Breathing is regular and unlabored. 06:00 - Patient resting in bed with eyes closed. Breathing is regular and unlabored. Total hours of rest for shift - 8.75 interrupted 1853 Pt arrived on unit from ED with signed voluntary form. Pt ambulatory. Vitals obtained. Contraband search performed by this television writer and Mitzi Ware RN, no contraband found. Pt denies need for orientation to unit. documented in this encounter [facility] 12-24-2022 Hospital course Narrative Inpatient Psychiatry Discharge Summary Patient Name: Ana Hernandez MR #: [id number] : 2000 Admit Date: 1190104 Discharge Date/Time: No discharge date for patient encounter. Clinical Summary Reason for Hospitalization: Suicidal ideation, auditory hallucinations, paranoid thinking, racing thoughts Discharge Diagnoses and Associated Hospital Course: * Schizoaffective disorder, bipolar type (HCC) Assessment & Plan A: Ana has suffered a progressive increase in symptoms since her last discharge from the hospital about a year ago. She is now hearing voices continually which are negative and which urge her to harm herself. Her mind races, which she finds very bothersome and which interferes with her concentration ability to perform her work. She is anxious and dysphoric and has suicidal thoughts multiple times a day. She does not actually have an intent or plan and yet she cannot say that she would seek help before acting on her thoughts. She has, in the last year, overdosed on medication and not told anybody until several days later. She is not able to sleep, she is irritable, and she feels worthless and useless. No substance abuse. She is compliant with her treatment and with medications on an outpatient basis. 12/24/2022: Ana states that she is feeling much better. The feeling of her thoughts racing is much improved. In fact, she feels like she is slow-thinking in comparison. Her mood is stable and positive. She is no longer hearing voices. She is sleeping well. She denies suicidal thoughts. Her affect is bright. I encouraged her to be honest about her symptoms despite her eagerness to get home. She states she is being honest in reporting relief so much better. P: Get lithium level prior to discharge Discharge to outpatient follow-up Consults placed Procedures ED Consult to PSYCH - Preform Machine Operator (PSS) Hospitalize Patient To : Inpatient consult to Hospitalist Allergies Penicillins Procedures performed No orders of the defined types were placed in this encounter. Other tests No orders of the defined types were placed in this encounter. Studies pending at discharge None Laboratory Results: Results from last 7 days Lab Units 12/20/22 1349 SODIUM mmol/L 138 POTASSIUM mmol/L 3.7 CHLORIDE mmol/L 106 BUN mg/dL 10 CREATININE mg/dL 0.92 GLUCOSE mg/dL 87 Lab Results Component Value Date CHOL 158 12/20/2022 HDL 31 (L) 12/20/2022 LDLCALC 79 12/20/2022 TRIG 239 (H) 12/20/2022 No results found for: HGBA1C Lab Results Component Value Date TSH 1.77 12/20/2022 Review of Systems: Constitutional, cardiac, pulmonary, neurologic, musculoskeletal, GI, and systems reveiwed and negative except as noted above Mental Status Evaluation: General Appearance & Behavior: age appropriate, pleasant, cooperative, good eye contact Grooming & Hygiene: neat and clean and street clothes Psychomotor Activity: no psychomotor abnormalities or muscle atrophy noted Gait & Station stable gait and ability to rise from bed/chair without assistance Speech: normal rate, rhythym, volume, and spontaneity Flow of Thought: linear and goal directed Thought Associations: Intact Content of Thought: No evidence of suicidal ideations/homicidal ideations/psychosis Mood: much better Affect: euthymic Insight: intact Judgment: intact Orientation: alert and oriented to person, place, time, and circumstances Memory: intact recent and remote Attention: intact Concentration: intact Language: fluent Fund of Knowledge: estimated average intelligence Discharge Information PRINCIPAL DIAGNOSIS at Discharge: Schizoaffective disorder, bipolar type (HCC) Discharge Medications: Medication List START taking these medications clindamycin 300 MG capsule Commonly known as: CLEOCIN Take 1 (one) capsule (300 mg total) by mouth 2 (two) times a day for 4 days . CHANGE how you take these medications paliperidone 6 MG 24 hr tablet Commonly known as: INVEGA Take 1 (one) tablet (6 mg total) by mouth every morning Start: 12/25/22. Start taking on: December 25, 2022 What changed: medication strength how much to take CONTINUE taking these medications lithium 300 MG capsule Take 1 (one) capsule (300 mg total) by mouth 3 (three) times a day with meals . WOMEN'S MULTI ORAL STOP taking these medications albuterol 90 mcg/actuation inhaler benztropine 1 MG tablet Commonly known as: COGENTIN ibuprofen 200 MG tablet Commonly known as: ADVIL,MOTRIN LORazepam 1 MG tablet Commonly known as: ATIVAN Where to Get Your Medications These medications were sent to [facility] [address] [place] [address] Hours: 8:30 AM to 5:00 PM Mon-Fri clindamycin 300 MG capsule lithium 300 MG capsule paliperidone 6 MG 24 hr tablet This patient is being discharged on one antipsychotic. Diagnostic work up including: BMI, blood pressure, hemoglobin A1c or blood glucose, and lipid panel have been completed in the past year performed within [facility] and available in [facility]. Glucose <126mg/dL, no indication of impaired glucose tolerance or insulin resistance in fasting or nonfasting state. Tobacco cessation medication not indicated; Patient is only a someday tobacco user or doesn't use currently. Disposition: Home Follow Up: Belgica Strange MD [address] [place] [address] Follow up Appt: 01/09/2023 at 3:[address] Strange Discharge Diet: Additional Information: Provider(s): Primary Care: Physician No Phone: None [facility] To contact Belgica Strange MD or medical office professional instructor physician, call [phone] ([place]) for 24 hour/7 day for emergencies related to inpatient stay or to obtain results of studies pending at discharge. Patient instructions, including activity, were given to the patient/family at discharge. Please see the After Visit Summary in the medical record for details. Time spent on discharge: > 30 minutes Completed by: Belgica Strange on 12/24/22, 12:56 PM documented in this encounter [facility] 12-24-2022 Note Formatting of this n ote might be different from the original. Problem: Suicide - Risk of Goal: Able to control suicidal impulse 12/24/2022 1230 by Clemencia Santizo RN Outcome: Completed 12/24/2022728 by Clemencia Santizo RN Outcome: Partially Met Goal: Absence of self-harm 12/24/2022 1230 by Clemencia Santizo RN Outcome: Completed 12/24/2022728 by Clemencia Santizo RN Outcome: Partially Met Goal: Decrease in suicidal ideation 12/24/2022 1230 by Clemencia Santizo RN Outcome: Completed 12/24/2022728 by Clemencia Santizo RN Outcome: Partially Met Problem: Actual or potential alteration in health Goal: Knowledge of Interdisciplinary Plan of Care 12/24/2022 1230 by Clemencia Santizo RN Outcome: Completed 12/24/2022728 by Clemencia Santizo RN Outcome: Partially Met Problem: Cognitive-Perceptual Pattern - Impaired Goal: Improved thought processes 12/24/2022 1230 by Clemencia Santizo RN Outcome: Completed 12/24/2022728 by Clemencia Santizo RN Outcome: Partially Met Problem: Plan for Discharge Goal: Knowledge of discharge plan and instructions 12/24/2022 1230 by Clemencia Santizo RN Outcome: Completed 12/24/2022728 by Clemencia Santizo RN Outcome: Partially Met Problem: Pain Goal: Manage acute pain 12/24/2022 1230 by Clemencia Santizo RN Outcome: Completed 12/24/2022728 by Clemencia Santizo RN Outcome: Partially Met Goal: Manage chronic pain 12/24/2022 1230 by Clemencia Sanitzo RN Outcome: Completed 12/24/2022728 by Clemencia Santizo RN Outcome: Partially Met Goal: Reduced pain sensation 12/24/2022 1230 by Clemencia Santizo RN Outcome: Completed 12/24/2022728 by Clemencia Santizo RN Outcome: Partially Met Goal: Achievement of comfort function goal 12/24/2022 1230 by Clemencia Santizo RN Outcome: Completed 12/24/2022728 by Clemencia Santizo RN Outcome: Partially Met [facility] 12-24-2022 Miscellaneous Notes Problem: Suicide - Risk of Goal: Able to control suicidal impulse 12/24/2022 1230 by Clemencia Santizo RN Outcome: Completed 12/24/2022 07 by Clemencia Santizo RN Outcome: Partially Met Goal: Absence of self-harm 12/24/2022 1230 by Clemencia Santizo RN Outcome: Completed 12/24/2022728 by Clemencia Santizo RN Outcome: Partially Met Goal: Decrease in suicidal ideation 12/24/2022 1230 by Clemencia Santizo RN Outcome: Completed 12/24/2022728 by Clemencia Santizo RN Outcome: Partially Met Problem: Actual or potential alteration in health Goal: Knowledge of Interdisciplinary Plan of Care 12/24/2022 1230 by Clemencia Santizo RN Outcome: Completed 12/24/2022728 by Clemencia Santizo RN Outcome: Partially Met Problem: Cognitive-Perceptual Pattern - Impaired Goal: Improved thought processes 12/24/2022 1230 by Clemencia Santizo RN Outcome: Completed 12/24/2022728 by Clemencia Santizo RN Outcome: Partially Met Problem: Plan for Discharge Goal: Knowledge of discharge plan and instructions 12/24/2022 1230 by Clemencia Santizo RN Outcome: Completed 12/24/2022728 by Clemencia Santizo RN Outcome: Partially Met Problem: Pain Goal: Manage acute pain 12/24/2022 1230 by Clemencia Santizo RN Outcome: Completed 12/24/2022728 by Clemencia Santizo RN Outcome: Partially Met Goal: Manage chronic pain 12/24/2022 1230 by Clemencia Santizo RN Outcome: Completed 12/24/2022728 by Clemencia Santizo RN Outcome: Partially Met Goal: Reduced pain sensation 12/24/2022 1230 by Clemencia Santizo RN Outcome: Completed 12/24/2022 0729 by Clemencia Santizo RN Outcome: Partially Met Goal: Achievement of comfort function goal 12/24/2022 1230 by Clemencia Santizo RN Outcome: Completed 12/24/2022 0729 by Clemencia Santizo RN Outcome: Partially Met Problem: Suicide - Risk of Goal: Able to control suicidal impulse Outcome: Partially Met Goal: Absence of self-harm Outcome: Partially Met Goal: Decrease in suicidal ideation Outcome: Partially Met Problem: Actual or potential alteration in health Goal: Knowledge of Interdisciplinary Plan of Care Outcome: Partially Met Problem: Cognitive-Perceptual Pattern - Impaired Goal: Improved thought processes Outcome: Partially Met Problem: Plan for Discharge Goal: Knowledge of discharge plan and instructions Outcome: Partially Met Problem: Pain Goal: Manage acute pain Outcome: Partially Met Goal: Manage chronic pain Outcome: Partially Met Goal: Reduced pain sensation Outcome: Partially Met Goal: Achievement of comfort function goal Outcome: Partially Met Problem: Suicide - Risk of Goal: Able to control suicidal impulse Outcome: Partially Met Goal: Absence of self-harm Outcome: Partially Met Goal: Decrease in suicidal ideation Outcome: Partially Met Problem: Actual or potential alteration in health Goal: Knowledge of Interdisciplinary Plan of Care Outcome: Partially Met Problem: Cognitive-Perceptual Pattern - Impaired Goal: Improved thought processes Outcome: Partially Met Problem: Plan for Discharge Goal: Knowledge of discharge plan and instructions Outcome: Not Addressed Problem: Pain Goal: Manage acute pain Outcome: Met Goal: Manage chronic pain Outcome: Met Goal: Reduced pain sensation Outcome: Met Goal: Achievement of comfort function goal Outcome: Met Problem: Suicide - Risk of Goal: Able to control suicidal impulse Outcome: Met Goal: Absence of self-harm Outcome: Met Goal: Decrease in suicidal ideation Outcome: Met Problem: Actual or potential alteration in health Goal: Knowledge of Interdisciplinary Plan of Care Outcome: Partially Met Problem: Cognitive-Perceptual Pattern - Impaired Goal: Improved thought processes Outcome: Partially Met Problem: Pain Goal: Manage acute pain Outcome: Partially Met Goal: Manage chronic pain Outcome: Partially Met Goal: Reduced pain sensation Outcome: Partially Met Goal: Achievement of comfort function goal Outcome: Partially Met Problem: Plan for Discharge Goal: Knowledge of discharge plan and instructions Outcome: Not Addressed Problem: Suicide - Risk of Goal: Able to control suicidal impulse Outcome: Met Goal: Absence of self-harm Outcome: Met Goal: Decrease in suicidal ideation Outcome: Met Problem: Actual or potential alteration in health Goal: Knowledge of Interdisciplinary Plan of Care Outcome: Partially Met Problem: Cognitive-Perceptual Pattern - Impaired Goal: Improved thought processes Outcome: Partially Met Problem: Plan for Discharge Goal: Knowledge of discharge plan and instructions Outcome: Partially Met Problem: Pain Goal: Manage acute pain Outcome: Partially Met Goal: Manage chronic pain Outcome: Partially Met Goal: Reduced pain sensation Outcome: Partially Met Goal: Achievement of comfort function goal Outcome: Partially Met Problem: Suicide - Risk of Goal: Able to control suicidal impulse Outcome: Met Goal: Absence of self-harm Outcome: Met Problem: Suicide - Risk of Goal: Decrease in suicidal ideation Outcome: Partially Met Problem: Actual or potential alteration in health Goal: Knowledge of Interdisciplinary Plan of Care Outcome: Partially Met Problem: Cognitive-Perceptual Pattern - Impaired Goal: Improved thought processes Outcome: Partially Met Problem: Pain Goal: Manage acute pain Outcome: Partially Met Goal: Manage chronic pain Outcome: Partially Met Goal: Reduced pain sensation Outcome: Partially Met Goal: Achievement of comfort function goal Outcome: Partially Met Problem: Plan for Discharge Goal: Knowledge of discharge plan and instructions Outcome: Not Addressed Problem: Suicide - Risk of Goal: Able to control suicidal impulse Outcome: Partially Met Goal: Absence of self-harm Outcome: Partially Met Goal: Decrease in suicidal ideation Outcome: Partially Met Problem: Actual or potential alteration in health Goal: Absence of healthcare acquired conditions Outcome: Partially Met Goal: Knowledge of Interdisciplinary Plan of Care Outcome: Partially Met Problem: Cognitive-Perceptual Pattern - Impaired Goal: Improved thought processes Outcome: Partially Met Problem: Plan for Discharge Goal: Knowledge of discharge plan and instructions Outcome: Partially Met Problem: Pain Goal: Manage acute pain Outcome: Partially Met Goal: Manage chronic pain Outcome: Partially Met Goal: Reduced pain sensation Outcome: Partially Met Goal: Achievement of comfort function goal Outcome: Partially Met Behavioral Health Initial Treatment Plan Date: 12/21/2022 Time: 2:00 PM Patient Name: Ana Hernandez Date of : 2000 Sex: Female Admit Date/Time: 12/20/2022 1:26 PM Patient Active Problem List Diagnosis Date Noted Schizoaffective disorder, bipolar type ([facility]) 12/20/2022 Schizoaffective disorder ([facility]) 12/20/2022 Post traumatic stress disorder (PTSD) 02/16/2022 Bipolar II disorder major depressive with onset ([facility]) 02/15/2022 Diagnosis Falls Of Rough I: Schizoaffective Disorder Falls Of Rough II: No diagnosis Falls Of Rough III: Patient Active Problem List Diagnosis Date Noted Schizoaffective disorder, bipolar type ([facility]) 12/20/2022 Schizoaffective disorder ([facility]) 12/20/2022 Post traumatic stress disorder (PTSD) 02/16/2022 Bipolar II disorder major depressive with onset ([facility]) 02/15/2022 Falls Of Rough IV: other psychosocial or environmental problems Falls Of Rough V: 41-50 serious symptoms Reason for Hospitalization Reason for Hospitalization: Suicidal ideation Expected Discharge Date: 12/25/2022 ELOS: 3 to 5 days Precautions Precautions: Suicide Patient Presenting Issues: Patient's Primary Presenting Issue Patient's Primary Presenting Issue: Suicidal Suicidal Symptoms: Ideation Suicidal Goals: Elimination of suicidal thoughts and impulses Days To Improvement Of Goal: 3-5 Suicidal Treatment Interventions: Medication management/evaluation, Pain and symptom management, Medication education, Group psychoeduction, Handouts psychoeducation, Individual psychoeducation, Family education/meeting, Develop personal safety plan Status Of Goal: Unchanged Patient's Secondary Presenting Issue Patient's Secondary Presenting Issue: Psychosis Psychosis Symptoms: Auditory hallucinations, Paranoia Psychosis Treatment Goals: elimination of positive symptoms of psychosis Days To Improvement Of Goal: 3-5 Status Of Goal: Unchanged Patient's Other Presenting Issue Patient's Other Presenting Issue: Mood instablilty Mood Instability Symptoms: Depression, Daniella, Mood Swings, Anxiety Mood Instability Treatment Goals: Stabilize mood to within normal limits Days To Improvement Of Goal: 3-5 Mood Instability Interventions: Medication management/evaluation, Pain and symptom management, Medication education, Group psychoeduction, Handouts psychoeducation, Individual psychoeducation Precautions Precautions: Suicide Patient Strengths Patient Strengths: Basic self-care skills, Employment, Family/friends, Financial stability, Housing, Intellectual abilities, Insight, Interpersonal skills, Mental health services, Motivation to change, Physical health, Spiritual beliefs, Vocationa/academic skills Patient Limitations Patient Limitations: Low self esteem Discharge Needs Anticipated Facility Type: Psychiatric aftercare, [facility] Criteria For Discharge Criteria For Discharge: Maximum benefit obtained, Goals met Additional Comments: Physician, Registered Nurse, Retail Route Supervisor, Adjunct Therapist included in treatment team discussion. Treatment team members present Belgica Strange MD Patient Signature Date Patient's Response To Treatment Plan: Physician Signature Date Associated Problem(s): Schizoaffective disorder, bipolar type (HCC) A: Ana has suffered a progressive increase in symptoms since her last discharge from the hospital about a year ago. She is now hearing voices continually which are negative and which urge her to harm herself. Her mind races, which she finds very bothersome and which interferes with her concentration ability to perform her work. She is anxious and dysphoric and has suicidal thoughts multiple times a day. She does not actually have an intent or plan and yet she cannot say that she would seek help before acting on her thoughts. She has, in the last year, overdosed on medication and not told anybody until several days later. She is not able to sleep, she is irritable, and she feels worthless and useless. No substance abuse. She is compliant with her treatment and with medications on an outpatient basis. 12/24/2022: Ana states that she is feeling much better. The feeling of her thoughts racing is much improved. In fact, she feels like she is slow-thinking in comparison. Her mood is stable and positive. She is no longer hearing voices. She is sleeping well. She denies suicidal thoughts. Her affect is bright. I encouraged her to be honest about her symptoms despite her eagerness to get home. She states she is being honest in reporting relief so much better. P: Get lithium level prior to discharge Discharge to outpatient follow-up Problem: Suicide - Risk of Goal: Able to control suicidal impulse Outcome: Partially Met Goal: Absence of self-harm Outcome: Partially Met Goal: Decrease in suicidal ideation Outcome: Partially Met Problem: Actual or potential alteration in health Goal: Absence of healthcare acquired conditions Outcome: Partially Met Goal: Knowledge of Interdisciplinary Plan of Care Outcome: Partially Met Goal: Knowledge of Enviroment Outcome: Completed Problem: Cognitive-Perceptual Pattern - Impaired Goal: Improved thought processes Outcome: Partially Met Problem: Plan for Discharge Goal: Knowledge of discharge plan and instructions Outcome: Not Met Problem: Pain Goal: Manage acute pain Outcome: Partially Met Goal: Manage chronic pain Outcome: Partially Met Goal: Reduced pain sensation Outcome: Partially Met Goal: Achievement of comfort function goal Outcome: Partially Met Behavioral Health Therapy Initial Assessment Reason for Admission: Pt states she was at her doctors appointment and states Dr. Strange wanted to try me on a different medication in a controlled environment. Pt states she was having anxiety, suicidal thoughts and auditory hallucinations. Changes/Stressors: Generally my mental health. Pt gave to her son who is now 1. Typical Day: When I work I wake up at 6:30 and have to be at work by 8. I work 12 hour shift so when I get home I spend time on my phone, watch TV and unwind. 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 On the days she does not work states some days I am productive and others I am relaxing. Pt is and has a 1 year old son. States she works with her . Leisure/Coping: Spend time with my and go on some sort of date, listen to music, journal. Pt denies alcohol or drug use. Supports: My mom, dad, and . Community Resources: Pt sees Dr. Strange in her office. Personal Strengths: Pt initially states I don't feel I have any right now. With prompting admits to being a good . Barriers/Limitations: None identified. Pt Goal for Treatment: Find the right medication. Clinical Summary: Pt sitting up in bed wearing a hospital gown. She was pleasant upon approach but watchful/guarded. Pt responds only to direct questions. Pt not too receptive to attending therapy stating I have been here 3 times. Pt feels she did not have a choice to be here stating if I didn't come they would have pink slipped me. Plan: Pt will attend Goal, Life Skills, Wellness, and Recreation Therapy and be educated to coping skills, managing symptoms and improve positive thoughts of self. Refer to Adjunct Therapy flow sheet for additional information. Problem: Suicide - Risk of Goal: Able to control suicidal impulse 12/20/20222254 by Suzan Eduardo RN Outcome: Partially Met 12/20/20222252 by Suzan Eduardo RN Outcome: Partially Met Goal: Absence of self-harm 12/20/20222254 by Suzan Eduardo RN Outcome: Partially Met 12/20/20222252 by Suzan Eduardo RN Outcome: Partially Met Goal: Decrease in suicidal ideation 12/20/20222254 by Suzan Eduardo RN Outcome: Partially Met 12/20/20222252 by Suzan Eduardo RN Outcome: Partially Met Problem: Actual or potential alteration in health Goal: Absence of healthcare acquired conditions Outcome: Partially Met Goal: Knowledge of Interdisciplinary Plan of Care 12/20/20222254 by Suzan Eduardo RN Outcome: Partially Met 12/20/20222252 by Suzan Eduardo RN Outcome: Partially Met Goal: Knowledge of Enviroment 12/20/20222254 by Suzan Eduardo RN Outcome: Partially Met 12/20/20222252 by Suzan Eduardo RN Outcome: Partially Met Problem: Cognitive-Perceptual Pattern - Impaired Goal: Improved thought processes Outcome: Partially Met Problem: Plan for Discharge Goal: Knowledge of discharge plan and instructions Outcome: Not Addressed ED Attestation: I was personally available for consult in the emergency department. I have reviewed the chart and agree with the documentation as recorded by the ORTEGA (Advanced Practice Provider), including the assessment, treatment plan, and disposition Behavioral Health Pre Admission Screening Tool Date: 12/20/2022 Time: 5:35 PM Patient Name: Ana Hernandez Date of : 2000 Sex: Female VOLUNTARY Prescreener Caller Information: Melida VERDIN Referral Source: [facility] Diagnosis: Schizoaffective Disorder Presenting Problem/Chief Complaint: Suicidal/Hallucinations Medical Status: Stable Functional Status: Independent Medication Compliant: Yes Insurance Information/Precertification Completed: Yes Case Reveiwed With: Other Other Physician: Dr. Strange Accepted for Admission: Yes Admitting Physician: Other Other Admitting Physician: Dr. Strange Number For RN To RN Communication: [phone] Risk Factors Recent Psychological Experiences: Other (Comment) (Pt states a lot going on in life but mental health is biggest stressor) Current Suicidal Ideation: Yes Describe Current Suicidal Ideation : Reports suicidal ideations and has thought of ways to harm self but wouldn't act on them Previous Suicidal Ideation: Yes Describe Previous Suicidal Ideation: Has been hospitalized for suicidal ideations in the past Current Suicide Attempt: No Previous Suicide Attempt: Yes Describe Previous Suicide Attempt: Hx of overdosing Current Self Harm Behavior: No Previous Self Harm Behavior: No Current Plans to Harm Another: No Previous Plans to Harm Another: No History of Attempts to Harm Another: No Access to Weapons: No Violent Episode: No Previous Violent Episode: No Family History of Suicide: No Family History of Mental Illness: Information not available Family History of Substance Abuse: Information not available Elopement: No risk Methods to Calm Down: Quiet time in room Restraint Risk Factors: None Patient (Pt) presents to the emergency department (ED), voluntarily, for suicidal ideations and hallucinations. Pt was at her appointment today with Dr. Strange who recommended she come to the hospital for inpatient admission. Per Dr. Strange, the Pt has been doing very poorly, hears voices constantly and has racing thoughts. Dr. Strange states Pt has reports suicidal ideations and does not feel in control of them. Pt confirms that she has had increased suicidal ideations for awhile now and they are now occurring multiple times per day. She initially denies having a plan to harm herself but then admits she has thought of ways she could harm herself but wouldn't act on these plans. She would not tell this worker what ways she has thought about harming herself. She states that she has been having increased auditory hallucinations and that they frequently tell her to harm herself. Pt has had poor sleep as she wakes up throughout the night and does not feel rested. She denies issues with appetite. She completes ADLs but reports having less motivation to do them. She reports feelings of hopelessness and worthlessness. She is not future oriented at this time and does not engage in safety planning with this worker. She is calm, cooperative and directable. She is alert and oriented to person, place and time. Thought content, speech, and eye contact are appropriate. Affect is flat. She denies homicidal ideations. documented in this encounter [facility] 12-24-2022 Note Formatting of this n ote might be different from the original. Problem: Suicide - Risk of Goal: Able to control suicidal impulse Outcome: Partially Met Goal: Absence of self-harm Outcome: Partially Met Goal: Decrease in suicidal ideation Outcome: Partially Met Problem: Actual or potential alteration in health Goal: Knowledge of Interdisciplinary Plan of Care Outcome: Partially Met Problem: Cognitive-Perceptual Pattern - Impaired Goal: Improved thought processes Outcome: Partially Met Problem: Plan for Discharge Goal: Knowledge of discharge plan and instructions Outcome: Partially Met Problem: Pain Goal: Manage acute pain Outcome: Partially Met Goal: Manage chronic pain Outcome: Partially Met Goal: Reduced pain sensation Outcome: Partially Met Goal: Achievement of comfort function goal Outcome: Partially Met [facility] 12-23-2022 Note Formatting of this n ote might be different from the original. Problem: Suicide - Risk of Goal: Able to control suicidal impulse Outcome: Partially Met Goal: Absence of self-harm Outcome: Partially Met Goal: Decrease in suicidal ideation Outcome: Partially Met Problem: Actual or potential alteration in health Goal: Knowledge of Interdisciplinary Plan of Care Outcome: Partially Met Problem: Cognitive-Perceptual Pattern - Impaired Goal: Improved thought processes Outcome: Partially Met Problem: Plan for Discharge Goal: Knowledge of discharge plan and instructions Outcome: Not Addressed Problem: Pain Goal: Manage acute pain Outcome: Met Goal: Manage chronic pain Outcome: Met Goal: Reduced pain sensation Outcome: Met Goal: Achievement of comfort function goal Outcome: Met [facility] 12-23-2022 Note Formatting of this n ote might be different from the original. Problem: Suicide - Risk of Goal: Able to control suicidal impulse Outcome: Met Goal: Absence of self-harm Outcome: Met Goal: Decrease in suicidal ideation Outcome: Met Problem: Actual or potential alteration in health Goal: Knowledge of Interdisciplinary Plan of Care Outcome: Partially Met Problem: Cognitive-Perceptual Pattern - Impaired Goal: Improved thought processes Outcome: Partially Met Problem: Pain Goal: Manage acute pain Outcome: Partially Met Goal: Manage chronic pain Outcome: Partially Met Goal: Reduced pain sensation Outcome: Partially Met Goal: Achievement of comfort function goal Outcome: Partially Met Problem: Plan for Discharge Goal: Knowledge of discharge plan and instructions Outcome: Not Addressed [facility] 12-23-2022 Note Formatting of this n ote might be different from the original. Problem: Suicide - Risk of Goal: Able to control suicidal impulse Outcome: Met Goal: Absence of self-harm Outcome: Met Goal: Decrease in suicidal ideation Outcome: Met Problem: Actual or potential alteration in health Goal: Knowledge of Interdisciplinary Plan of Care Outcome: Partially Met Problem: Cognitive-Perceptual Pattern - Impaired Goal: Improved thought processes Outcome: Partially Met Problem: Plan for Discharge Goal: Knowledge of discharge plan and instructions Outcome: Partially Met Problem: Pain Goal: Manage acute pain Outcome: Partially Met Goal: Manage chronic pain Outcome: Partially Met Goal: Reduced pain sensation Outcome: Partially Met Goal: Achievement of comfort function goal Outcome: Partially Met [facility] 12-22-2022 Note Formatting of this n ote might be different from the original. Problem: Suicide - Risk of Goal: Able to control suicidal impulse Outcome: Met Goal: Absence of self-harm Outcome: Met Problem: Suicide - Risk of Goal: Decrease in suicidal ideation Outcome: Partially Met Problem: Actual or potential alteration in health Goal: Knowledge of Interdisciplinary Plan of Care Outcome: Partially Met Problem: Cognitive-Perceptual Pattern - Impaired Goal: Improved thought processes Outcome: Partially Met Problem: Pain Goal: Manage acute pain Outcome: Partially Met Goal: Manage chronic pain Outcome: Partially Met Goal: Reduced pain sensation Outcome: Partially Met Goal: Achievement of comfort function goal Outcome: Partially Met Problem: Plan for Discharge Goal: Knowledge of discharge plan and instructions Outcome: Not Addressed [facility] 12-21-2022 Note Formatting of this n ote might be different from the original. Problem: Suicide - Risk of Goal: Able to control suicidal impulse Outcome: Partially Met Goal: Absence of self-harm Outcome: Partially Met Goal: Decrease in suicidal ideation Outcome: Partially Met Problem: Actual or potential alteration in health Goal: Absence of healthcare acquired conditions Outcome: Partially Met Goal: Knowledge of Interdisciplinary Plan of Care Outcome: Partially Met Problem: Cognitive-Perceptual Pattern - Impaired Goal: Improved thought processes Outcome: Partially Met Problem: Plan for Discharge Goal: Knowledge of discharge plan and instructions Outcome: Partially Met Problem: Pain Goal: Manage acute pain Outcome: Partially Met Goal: Manage chronic pain Outcome: Partially Met Goal: Reduced pain sensation Outcome: Partially Met Goal: Achievement of comfort function goal Outcome: Partially Met [facility] 12-21-2022 Note Formatting of this n ote is different from the original. Behavioral Health Initial Treatment Plan Date: 12/21/2022 Time: 2:00 PM Patient Name: Ana Hernandez Date of : 2000 Sex: Female Admit Date/Time: 12/20/2022 1:26 PM Patient Active Problem List Diagnosis Date Noted Schizoaffective disorder, bipolar type ([facility]) 12/20/2022 Schizoaffective disorder ([facility]) 12/20/2022 Post traumatic stress disorder (PTSD) 02/16/2022 Bipolar II disorder major depressive with onset ([facility]) 02/15/2022 Diagnosis Falls Of Rough I: Schizoaffective Disorder Falls Of Rough II: No diagnosis [place] III: Patient Active Problem List Diagnosis Date Noted Schizoaffective disorder, bipolar type ([facility]) 12/20/2022 Schizoaffective disorder (HCC) 12/20/2022 Post traumatic stress disorder (PTSD) 02/16/2022 Bipolar II disorder major depressive with onset ([facility]) 02/15/2022 Falls Of Rough IV: other psychosocial or environmental problems Falls [place] Rough V: 41-50 serious symptoms Reason for Hospitalization Reason for Hospitalization: Suicidal ideation Expected Discharge Date: 12/25/2022 ELOS: 3 to 5 days Precautions Precautions: Suicide Patient Presenting Issues: Patient's Primary Presenting Issue Patient's Primary Presenting Issue: Suicidal Suicidal Symptoms: Ideation Suicidal Goals: Elimination of suicidal thoughts and impulses Days To Improvement Of Goal: 3-5 Suicidal Treatment Interventions: Medication management/evaluation, Pain and symptom management, Medication education, Group psychoeduction, Handouts psychoeducation, Individual psychoeducation, Family education/meeting, Develop personal safety plan Status Of Goal: Unchanged Patient's Secondary Presenting Issue Patient's Secondary Presenting Issue: Psychosis Psychosis Symptoms: Auditory hallucinations, Paranoia Psychosis Treatment Goals: elimination of positive symptoms of psychosis Days To Improvement Of Goal: 3-5 Status Of Goal: Unchanged Patient's Other Presenting Issue Patient's Other Presenting Issue: Mood instablilty Mood Instability Symptoms: Depression, Daniella, Mood Swings, Anxiety Mood Instability Treatment Goals: Stabilize mood to within normal limits Days To Improvement Of Goal: 3-5 Mood Instability Interventions: Medication management/evaluation, Pain and symptom management, Medication education, Group psychoeduction, Handouts psychoeducation, Individual psychoeducation Precautions Precautions: Suicide Patient Strengths Patient Strengths: Basic self-care skills, Employment, Family/friends, Financial stability, Housing, Intellectual abilities, Insight, Interpersonal skills, Mental health services, Motivation to change, Physical health, Spiritual beliefs, Vocationa/academic skills Patient Limitations Patient Limitations: Low self esteem Discharge Needs Anticipated Facility Type: Psychiatric aftercare, [facility] Criteria For Discharge Criteria For Discharge: Maximum benefit obtained, Goals met Additional Comments: Physician, Registered Nurse, Retail Route Supervisor, Adjunct Therapist included in treatment team discussion. Treatment team members present Belgica Strange MD Patient Signature Date Patient's Response To Treatment Plan: Physician Signature Date [facility] 12-21-2022 History and physical note Psychiatry History and Physical Patient Name: Ana Hernandez MR #: [id number] : 2000 Admit Date: [id number] Primary Care Provider: Physician No Assessment Ana Hernandez is a 22 y.o. female presenting with gradually worsening symptoms of psychosis and bipolar mood swings. She is currently dealing with dangerous levels of suicidal ideation. She needs hospitalization despite a very tight network of support as an outpatient. Diagnosis & Plan/Recommendations PRINCIPAL DIAGNOSIS: Schizoaffective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 History Tobacco Use Smoking Status Never Smokeless Tobacco Never Social History Substance and Sexual Activity Alcohol Use Never Social History Substance and Sexual Activity Drug Use Never Allergy Information I have reviewed the patient's allergies. Penicillins Home Medications Home medications were reviewed. Review Of Systems All systems have been reviewed and are negative except as noted in HPI or below Psych- depression Physical Examination BP 113/78 Pulse 85 Temp 97.9 F (36.6 C) (Oral) Resp 18 Ht 4' 8 Wt 84.8 kg (187 lb) LMP 12/15/2022 (Exact Date) SpO2 97% BMI 41.92 kg/m General Appearance: alert, well appearing, and in no acute distress HEENT: Head- normocephalic; Eyes- PERRLA, EOMI; Ears- external auditory canals clear, hearing intact; Nose- no nasal discharge; Throat- oropharynx normal Cardiovascular: regular rate and rhythm; normal S1, S2; no murmurs, rubs, clicks or gallops; no peripheral edema Respiratory: lungs clear to auscultation; without wheezes, rales or rhonchi Abdomen: soft, non-tender, non-distended; positive bowel sounds Neurological: alert, oriented x 3, normal speech; no focal findings or movement disorder noted Cranial Nerves: II: visual jernigan full. III, IV, : extraocular range intact. V: sensation intact. VII: facial symmetric with 5/5 strength. VIII: hearing intact to voice and finger rub. IX, X: palate elevates symmetrically. XI: shrugs shoulders 5/5 strength bilaterally. XII: tongue protrudes in midline. Musculoskeletal: no significant deformity or tenderness to palpation Skin: normal coloration, texture and turgor; no lesions or eruptions Psych: normal mood and affect oriented to time, place and person, mood and affect are within normal limits Laboratory and Additional Data Reviewed Laboratory 12/21/22 4:30 PM Microbiology 12/21/22 4:30 PM Medications 12/21/22 4:30 PM Transcriptions 12/21/22 4:30 PM Associated attestation - Jael Arndt MD - 12/22/2022 1:21 PM EST Patient seen, evaluated and managed by [facility] independently.I was not involved in the care of this patient, but was readily available for consultation if needed by [facility] [facility]. 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 Strange Patient Support System: Family Current Living Arrangements: Lives with , parents and son Type of Residence: Private residence Name and Contact of Collateral Provider: Dex (Spouse) [phone] LEGAL STATUS Voluntary DIAGNOSIS/ACTIVE PROBLEM LIST Medical Problems Hospital Problem List Codes * (Principal) Schizoaffective disorder, bipolar type (HCC) ICD-10-CM: F25.0 ICD-9-CM: 295.70 Non-Hospital Problem List Codes Post traumatic stress disorder (PTSD) ICD-10-CM: F43.10 ICD-9-CM: 309.81 Bipolar II disorder major depressive with onset (HCC) ICD-10-CM: O99.345, F31.81 ICD-9-CM: 648.44, 296.89 CHIEF COMPLAINT/HISTORY OF PRESENT ILLNESS Chief Complaint/History Present Illness Chief Complaint: Suicidal/Hallucinations Current Symptoms: Suicidal, Sleep disturbance, Psychosis, Depression Sleep Disturbance: Disturbed/Interrupted sleep Psychosis: Hallucination Hallucination: Auditory Problems Related to: Other psychosocial/environmental problems (Comment) Presenting Problem: Patient (Pt) presents to the emergency department (ED), voluntarily, for suicidal ideations and hallucinations. Pt was at her appointment today with Dr. Strange who recommended she come to the hospital for inpatient admission. Per Dr. Strange, the Pt has been doing very poorly, hears voices constantly and has racing thoughts. Dr. Strange states Pt has reports suicidal ideations and does not feel in control of them. Pt confirms that she has had increased suicidal ideations for awhile now and they are now occurring multiple times per day. She initially denies having a plan to harm herself but then admits she has thought of ways she could harm herself but wouldn't act on these plans. She would not tell this worker what ways she has thought about harming herself. She states that she has been having increased auditory hallucinations and that they frequently tell her to harm herself. Pt has had poor sleep as she wakes up throughout the night and does not feel rested. She denies issues with appetite. She completes ADLs but reports having less motivation to do them. She reports feelings of hopelessness and worthlessness. She is not future oriented at this time and does not engage in safety planning with this worker. She is calm, cooperative and directable. She is alert and oriented to person, place and time. Thought content, speech, and eye contact are appropriate. Affect is flat. She denies homicidal ideations. Stressors: Pt reports that she has a whole lot of stressors that she doesn't have time to get into. She does mention that her mental health is her biggest stressor and that there is stress in regards to taking care of her 1 year old son. Current/Past Treatment: Pt states she has been seeing Dr. Strange every month for medication management. She reports that Dr. Strange changed her medication today and is not certain what it is. She states she typically takes her medication as prescribed. Pt was hospitalized twice in january 2022. Family: Pt was adopted and does not know if there is any family mental health history. She states she gets along well with her adoptive parents. She has an older brother, older sister and younger sister that she has decent relationships with. She has been with her for 3 years but has been to him for 1 year. She has a 1 year old son that she loves dearly. 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 She denies any current or past legal issues. She denies access to firearms. PAST PSYCHIATRIC HISTORY Past Psychiatric History Previous Psychiatric Diagnosis: Bipolar Disorder Previous Psychiatric Medications: Anti-depressants, Anti-psychotics Previous Psychiatric Hospitalizations: [facility] x2 in January 2022 Current Psychiatric Medications: Please refer to med list ALCOHOL/DRUG ABUSE HISTORY Alcohol/Drug Abuse History Current Alcohol Use (Frequency): Denies Current Drug Use: No MENTAL STATUS EVALUATION Mental Status Evaluation General Appearance: Equal to stated age Orientation: Oriented to person, place, and time Level of Consciousness: Alert Mood/Affect: Flat Behavior: Cooperative, Appropriate to situation, Ability to maintain focus Remote Memory: WDL Language and Speech Content: Appropriate Preoccupations: External stressors, Internal stressors Impulse Control: Acts without considering alternatives Insight: Denial Judgment: Poor PATIENT STRENGTHS Patient Strengths Patient Strengths: Basic self-care skills, Employment, Family/friends, Housing, Mental health services, Motivation to change, Physical health RISK ASSESSMENT Risk Factors Recent Psychological Experiences: Other (Comment) (Pt states a lot going on in life but mental health is biggest stressor) Current Suicidal Ideation: Yes Describe Current Suicidal Ideation : Reports suicidal ideations and has thought of ways to harm self but wouldn't act on them Previous Suicidal Ideation: Yes Describe Previous Suicidal Ideation: Has been hospitalized for suicidal ideations in the past Current Suicide Attempt: No Previous Suicide Attempt: Yes Describe Previous Suicide Attempt: Hx of overdosing Current Self Harm Behavior: No Previous Self Harm Behavior: No Current Plans to Harm Another: No Previous Plans to Harm Another: No History of Attempts to Harm Another: No Access to Weapons: No Violent Episode: No Previous Violent Episode: No Family History of Suicide: No Family History of Mental Illness: Information not available Family History of Substance Abuse: Information not available Elopement: No risk Methods to Calm Down: Quiet time in room Restraint Risk Factors: None PROTECTIVE FACTORS Protective Factors Family and Community Support (Connectedness): Yes Ongoing Medical and Mental Health Services (Community Support): Yes Skills In Problem Solving and Conflict Resolution (Coping Skills): No Cultural and Anglican Beliefs: No Access to Weapons: No TREATMENT RECOMMENDATIONS AND CLINICAL SUMMARY Treatment Recommendations and Clinical Summary Current Recommendations: Psychiatric hospitalization RATIONALE/PLAN FOR TREATMENT: Spoke with Dr. Strange and updated her on the Pt. Per Dr. Strange, Pt is to be admitted to . Did contact Mitzi Ware, behavioral health charge, for bed assignment. Reviewed voluntary form with the Pt, Pt verbalized understanding and signed voluntary. Did update NABEEL Saleh, and DEZ Berumen, on plan of care. documented in this encounter [facility] 12-21-2022 Note Formatting of this n ote might be different from the original. Problem: Suicide - Risk of Goal: Able to control suicidal impulse Outcome: Partially Met Goal: Absence of self-harm Outcome: Partially Met Goal: Decrease in suicidal ideation Outcome: Partially Met Problem: Actual or potential alteration in health Goal: Absence of healthcare acquired conditions Outcome: Partially Met Goal: Knowledge of Interdisciplinary Plan of Care Outcome: Partially Met Goal: Knowledge of Enviroment Outcome: Completed Problem: Cognitive-Perceptual Pattern - Impaired Goal: Improved thought processes Outcome: Partially Met Problem: Plan for Discharge Goal: Knowledge of discharge plan and instructions Outcome: Not Met Problem: Pain Goal: Manage acute pain Outcome: Partially Met Goal: Manage chronic pain Outcome: Partially Met Goal: Reduced pain sensation Outcome: Partially Met Goal: Achievement of comfort function goal Outcome: Partially [facility] 12-21-2022 Initial evaluation note Behavioral Health Therapy Initial Assessment Reason for Admission: Pt states she was at her doctors appointment and states Dr. Strange wanted to try me on a different medication in a controlled environment. Pt states she was having anxiety, suicidal thoughts and auditory hallucinations. Changes/Stressors: Generally my mental health. Pt gave to her son who is now 1. Typical Day: When I work I wake up at 6:30 and have to be at work by 8. I work 12 hour shift so when I get home I spend time on my phone, watch TV and unwind. 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 On the days she does not work states some days I am productive and others I am relaxing. Pt is and has a 1 year old son. States she works with her . Leisure/Coping: Spend time with my and go on some sort of date, listen to music, journal. Pt denies alcohol or drug use. Supports: My mom, dad, and . Community Resources: Pt sees Dr. Strange in her office. Personal Strengths: Pt initially states I don't feel I have any right now. With prompting admits to being a good . Barriers/Limitations: None identified. Pt Goal for Treatment: Find the right medication. Clinical Summary: Pt sitting up in bed wearing a hospital gown. She was pleasant upon approach but watchful/guarded. Pt responds only to direct questions. Pt not too receptive to attending therapy stating I have been here 3 times. Pt feels she did not have a choice to be here stating if I didn't come they would have pink slipped me. Plan: Pt will attend Goal, Life Skills, Wellness, and Recreation Therapy and be educated to coping skills, managing symptoms and improve positive thoughts of self. Refer to Adjunct Therapy flow sheet for additional information. [facility] 12-20-2022 Note Formatting of this n ote might be different from the original. Problem: Suicide - Risk of Goal: Able to control suicidal impulse 12/20/20222254 by Suzan Eduardo RN Outcome: Partially Met 12/20/20222252 by Suzan Eduardo RN Outcome: Partially Met Goal: Absence of self-harm 12/20/20222254 by Suzan Eduardo RN Outcome: Partially Met 12/20/20222252 by Suzan Eduardo RN Outcome: Partially Met Goal: Decrease in suicidal ideation 12/20/20222254 by Suzan Eduardo RN Outcome: Partially Met 12/20/20222252 by Suzan Eduardo RN Outcome: Partially Met Problem: Actual or potential alteration in health Goal: Absence of healthcare acquired conditions Outcome: Partially Met Goal: Knowledge of Interdisciplinary Plan of Care 12/20/20222254 by Suzan Eduardo RN Outcome: Partially Met 12/20/20222252 by Suzan Eduardo RN Outcome: Partially Met Goal: Knowledge of Enviroment 12/20/20222254 by Suzan Eduardo RN Outcome: Partially Met 12/20/20222252 by Suzan Eduardo RN Outcome: Partially Met Problem: Cognitive-Perceptual Pattern - Impaired Goal: Improved thought processes Outcome: Partially Met Problem: Plan for Discharge Goal: Knowledge of discharge plan and instructions Outcome: Not Addressed [facility] 12-20-2022 Note Formatting of this n ote might be different from the original. ED Attestation: I was personally available for consult in the emergency department. I have reviewed the chart and agree with the documentation as recorded by the ORTEGA (Advanced Practice Provider), including the assessment, treatment plan, and disposition [facility] Work Phone: 12-20-2022 Emergency department Note Suicide check- Patient location: in room. Room check: Yes Safety- Precautions: Elopement Interventions: Sitter Visual Checks:; Every 15 mins. Self Injurious Behaviors: None observed. Harmful actions towards others: none observed [facility] 12-20-2022 Emergency department Note Rounding Assessment: Activity- Resting in bed. Cardio/Resp.- Spontaneous, equal chest rise. Respirs unlabored. Skin- Warm and dry. Needs/Concerns- Denies any further needs at this time. Safety- No AMA gown intact. Bed in low fixed position. Continuous monitoring in place. [facility] 12-20-2022 Emergency department Note Suicide check- Patient location: in room. Room check: Yes Safety- Precautions: Elopement Interventions: Sitter Visual Checks:; Every 15 mins. Self Injurious Behaviors: None observed. Harmful actions towards others: none observed Rounding Assessment: Activity- Resting in bed. Cardio/Resp.- Spontaneous, equal chest rise. Respirs unlabored. Skin- Warm and dry. Needs/Concerns- Denies any further needs at this time. Safety- No AMA gown intact. Bed in low fixed position. Continuous monitoring in place. Dinner tray ordered Suicide check- Patient location: in room. Room check: Yes Safety- Precautions: Elopement Interventions: Sitter Visual Checks:; Every 15 mins. Self Injurious Behaviors: None observed. Harmful actions towards others: none observed Rounding Assessment: Activity- Resting in bed. Cardio/Resp.- Spontaneous, equal chest rise. Respirs unlabored. Skin- Warm and dry. Needs/Concerns- Denies any further needs at this time. Safety- No AMA gown intact. Bed in low fixed position. Continuous monitoring in place. Rounding Assessment: Activity- Resting in bed. Cardio/Resp.- Spontaneous, equal chest rise. Respirs unlabored. Skin- Warm and dry. Needs/Concerns- Denies any further needs at this time. Safety- No AMA gown intact. Bed in low fixed position. Continuous monitoring in place. Suicide check- Patient location: in room. Room check: Yes Safety- Precautions: Elopement Interventions: Sitter Visual Checks:; Every 15 mins. Self Injurious Behaviors: None observed. Harmful actions towards others: none observed Suicide check- Patient location: in room. Room check: Yes Safety- Precautions: Elopement Interventions: Sitter Visual Checks:; Every 15 mins. Self Injurious Behaviors: None observed. Harmful actions towards others: none observed Rounding Assessment: Activity- Resting in bed. Cardio/Resp.- Spontaneous, equal chest rise. Respirs unlabored. Skin- Warm and dry. Needs/Concerns- Denies any further needs at this time. Safety- No AMA gown intact. Bed in low fixed position. Continuous monitoring in place. Lunch tray delivered. ED PROVIDER NOTE [facility] EMERGENCY DEPARTMENT NAME: Ana Hernandez AGE: 22 y.o. : 2000 VISIT DATE: 12/20/2022 CSN: [id number] PCP: Physician No Chief Complaint Patient presents with Suicidal Patient with a history of bipolar disorder presents to the emergency department for a psychiatric evaluation. Patient explains that she came from Dr. Strange's office. Patient explains that she has been hearing voices. She feels suicidal. States that she is having severe and frequent suicidal thoughts. Patient denies any recent illnesses. Denies all physical medical complaints. Denies a chance of . Denies the use of drugs and alcohol. She has no other complaints or concerns at this time. Past Medical History: Diagnosis Date Asthma Diabetes mellitus (HCC) Past Surgical History: Procedure Laterality Date APPENDECTOMY SECTION, CLASSIC Family History Adopted: Yes Family history unknown: Yes Social History Socioeconomic History Marital status: Tobacco Use Smoking status: Never Smokeless tobacco: Never Vaping Use Vaping Use: Never used Substance and Sexual Activity Alcohol use: Never Drug use: Never Sexual activity: Yes Partners: Male control/protection: I.U.D. Comment: will have IUD after medically cleared from having baby Previous Medications Medication Sig albuterol 90 mcg/actuation inhaler Inhale 2 (two) puffs every 6 (six) hours as needed for wheezing or shortness of breath . benztropine (COGENTIN) 1 MG tablet Take 1 (one) tablet (1 mg total) by mouth 2 (two) times a day . lithium 300 MG capsule Take 1 (one) capsule (300 mg total) by mouth 3 (three) times a day with meals . LORazepam (ATIVAN) 1 MG tablet Take 1 (one) tablet (1 mg total) by mouth 2 (two) times a day as needed . paliperidone (INVEGA) 3 MG 24 hr tablet Take 1 (one) tablet (3 mg total) by mouth every morning . [DISCONTINUED] haloperidoL (HALDOL) 5 MG tablet Take 1 (one) tablet (5 mg total) by mouth 2 (two) times a day . [DISCONTINUED] lamoTRIgine (LAMICTAL) 150 MG tablet Take 1 (one) tablet (150 mg total) by mouth daily . [DISCONTINUED] LORazepam (ATIVAN) 1 MG tablet Take 1 (one) tablet (1 mg total) by mouth 2 (two) times a day as needed . 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 Allergies Allergen Reactions Penicillins Rash Review of Systems Constitutional: Negative for activity change, chills, fatigue and fever. HENT: Negative for congestion, ear pain, hearing loss, postnasal drip, rhinorrhea, sore throat and trouble swallowing. Eyes: Negative for photophobia, pain, redness and visual disturbance. Respiratory: Negative for cough, chest tightness, shortness of breath and wheezing. Cardiovascular: Negative for chest pain, palpitations and leg swelling. Gastrointestinal: Negative for abdominal pain, constipation, diarrhea, nausea and vomiting. Genitourinary: Negative for difficulty urinating, dysuria, hematuria and urgency. Musculoskeletal: Negative for arthralgias, back pain, myalgias, neck pain and neck stiffness. Skin: Negative for color change and rash. Neurological: Negative for dizziness, speech difficulty, weakness, numbness and headaches. Psychiatric/Behavioral: Positive for hallucinations and suicidal ideas. Negative for agitation. The patient is not nervous/anxious. Patient Vitals for the past 24 hrs: BP Temp Pulse Resp SpO2 12/20/22 1352 134/85 98.3 F (36.8 C) 83 16 98 % Physical Exam Vitals and nursing note reviewed. Constitutional: General: She is not in acute distress. Appearance: She is well-developed. She is not toxic-appearing. HENT: Head: Normocephalic and atraumatic. Right Ear: External ear normal. Left Ear: External ear normal. Eyes: Extraocular Movements: Extraocular movements intact. Conjunctiva/sclera: Conjunctivae normal. Cardiovascular: Rate and Rhythm: Normal rate and regular rhythm. Pulses: Normal pulses. Heart sounds: Normal heart sounds. Musculoskeletal: General: No deformity. Cervical back: Normal range of motion. Pulmonary: Effort: Pulmonary effort is normal. Breath sounds: Normal breath sounds. Abdominal: Palpations: Abdomen is soft. Tenderness: There is no abdominal tenderness. Skin: General: Skin is warm and dry. Neurological: General: No focal deficit present. Mental Status: She is alert. Psychiatric: Mood and Affect: Mood normal. Laboratory & Radiographic Imaging (if done): Results for orders placed or performed during the hospital encounter of 12/20/22 COVID-19, Molecular Specimen: Nasopharyngeal; Swab Result Value Ref Range SARS-CoV-2 Not Detected Not Detected Chem 7 Result Value Ref Range Sodium 138 135 - 145 mmol/L Potassium 3.7 3.5 - 5.1 mmol/L Chloride 106 98 - 108 mmol/L Bicarbonate 23 21 - 32 mmol/L Anion Gap 13 10 - 20 mmol/L Glucose 87 65 - 99 mg/dL BUN 10 8 - 25 mg/dL Creatinine 0.92 0.40 - 1.10 mg/dL eGFR 91 >=60 mL/min/1.73 m2 BUN/Creatinine Ratio 10.9 10.0 - 20.0 Alcohol, Medical Result Value Ref Range Alcohol (Medical) <10.00 <10.00 mg/dL Urine Drug Screen Result Value Ref Range Amphetamine Screen, Urine None Detected None Detected Barbiturate Screen, Urine None Detected None Detected Benzodiazepine Screen, Urine None Detected None Detected Cannabinoid Screen, Urine None Detected None Detected Cocaine, Screen Urine None Detected None Detected Methadone Screen, Urine None Detected None Detected Opiate Screen, Urine None Detected None Detected Oxycodone Screen, Urine None Detected None Detected Buprenorphine, Ur None Detected None Detected Fentanyl, Ur None Detected None Detected Urine Result Value Ref Range Beta-hCG, Ur, Qual Negative Negative Urinalysis Result Value Ref Range Color, Urine Yellow Colorless, Yellow Clarity, Urine Cloudy (A) Clear Specific Craig 1.025 1.005 - 1.025 pH, Urine 5.5 5.0 - 7.0 Protein, Urine Negative Negative mg/dL Glucose, Urine Negative Negative mg/dL Ketones, Urine Negative Negative mg/dL Bilirubin, Urine Negative Negative Urobilinogen, Urine <2.0 <2.0 mg/dL Blood, Urine Small (A) Negative Nitrite, Urine Negative Negative Leukocyte Esterase, Urine Large (A) Negative WBCs, Urine 24 (H) 0 - 5 /hpf RBCs, Urine 4 (H) 0 - 3 /hpf Bacteria, Urine None Seen None Seen /hpf Squamous Epithelial 6 (H) 0 - 4 /hpf Transitional Epithelial 1 0 - 1 /hpf Amorphous Crystals Few (A) None Seen, Rare /hpf Mucus, Urine Few (A) None Seen, Rare /lpf No orders to display Procedures Medical Decision Making Patient with a history of bipolar disorder presents to the emergency department for a psychiatric evaluation. Patient explains that she came from Dr. Strange's office. Patient explains that she has been hearing voices. She feels suicidal. States that she is having severe and frequent suicidal thoughts. Patient denies any recent illnesses. Denies all physical medical complaints. Denies a chance of . Denies the use of drugs and alcohol. She has no other complaints or concerns at this time. No acute abnormalities on physical exam. Urinalysis reveals leukocytes and white blood cells. Urine culture sent. Given Macrobid. Will be diagnosed with a UTI and treated. She was medically cleared for social work evaluation. Social work recommended admission to Dr. Strange for major depression. The patient has been informed that they may have pre-hypertension or hypertension based on a blood pressure reading in the Emergency Department. I recommend that the patient call the primary care provider listed on their discharge instructions or a physician of their choice as soon as possible to arrange follow-up in the next 4 weeks for further evaluation of possible pre-hypertension or hypertension. . Clinical Impression: 1. Depression, unspecified depression type 2. Acute UTI ED Disposition ED Disposition Hospitalize Condition -- Comment Phone call required?: No Follow-up Information Follow-up information has not been specified. Contact information for after-discharge care Follow-up information has not been specified. Therese Buenrostro PA-C 12/20/22 1514 Pt to ED with complaints of suicidal ideation. Pt reports having these feelings since having her son around a year ago, with increasing depression and suicidal thoughts since. Pt reports no plan at this point. Pt reports a suicide attempt by overdosing on pills prior to of son. Pt reports good support system of and mother. documented in this encounter [facility] 12-20-2022 Emergency department Note Dinner tray ordered [facility] 12-20-2022 Note Formatting of this n ote might be different from the original. 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 Strange Accepted for Admission: Yes Admitting Physician: Other Other Admitting Physician: Dr. Strange Number For RN To RN Communication: [phone] Risk Factors Recent Psychological Experiences: Other (Comment) (Pt states a lot going on in life but mental health is biggest stressor) Current Suicidal Ideation: Yes Describe Current Suicidal Ideation : Reports suicidal ideations and has thought of ways to harm self but wouldn't act on them Previous Suicidal Ideation: Yes Describe Previous Suicidal Ideation: Has been hospitalized for suicidal ideations in the past Current Suicide Attempt: No Previous Suicide Attempt: Yes Describe Previous Suicide Attempt: Hx of overdosing Current Self Harm Behavior: No Previous Self Harm Behavior: No Current Plans to Harm Another: No Previous Plans to Harm Another: No History of Attempts to Harm Another: No Access to Weapons: No Violent Episode: No Previous Violent Episode: No Family History of Suicide: No Family History of Mental Illness: Information not available Family History of Substance Abuse: Information not available Elopement: No risk Methods to Calm Down: Quiet time in room Restraint Risk Factors: None Patient (Pt) presents to the emergency department (ED), voluntarily, for suicidal ideations and hallucinations. Pt was at her appointment today with Dr. Strange who recommended she come to the hospital for inpatient admission. Per Dr. Strange, the Pt has been doing very poorly, hears voices constantly and has racing thoughts. Dr. Strange states Pt has reports suicidal ideations and does not feel in control of them. Pt confirms that she has had increased suicidal ideations for awhile now and they are now occurring multiple times per day. She initially denies having a plan to harm herself but then admits she has thought of ways she could harm herself but wouldn't act on these plans. She would not tell this worker what ways she has thought about harming herself. She states that she has been having increased auditory hallucinations and that they frequently tell her to harm herself. Pt has had poor sleep as she wakes up throughout the night and does not feel rested. She denies issues with appetite. She completes ADLs but reports having less motivation to do them. She reports feelings of hopelessness and worthlessness. She is not future oriented at this time and does not engage in safety planning with this worker. She is calm, cooperative and directable. She is alert and oriented to person, place and time. Thought content, speech, and eye contact are appropriate. Affect is flat. She denies homicidal ideations. [facility] 12-20-2022 Consult note Associated Order (s): ED CONSULT TO PSYCH - DAMAGE ADJUSTER ED Retail Route Supervisor Behavioral Health Initial Assessment Date: 12/20/2022 Time: 5:25 PM Patient Name: Ana Hernandez Date of : 2000 Sex: Female Admit Date/Time: 12/20/2022 1:26 PM GENERAL INFORMATION General Information Retail Sales Director Needs: Not needed Information Provided By: Patient, Dr. Strange Patient Support System: Family Current Living Arrangements: Lives with , parents and son Type of Residence: Private residence Name and Contact of Collateral Provider: Dex (Spouse) [phone] LEGAL STATUS Voluntary DIAGNOSIS/ACTIVE PROBLEM LIST Medical Problems Hospital Problem List Codes * (Principal) Schizoaffective disorder, bipolar type (HCC) ICD-10-CM: F25.0 ICD-9-CM: 295.70 Non-Hospital Problem List Codes Post traumatic stress disorder (PTSD) ICD-10-CM: F43.10 ICD-9-CM: 309.81 Bipolar II disorder major depressive with onset (HCC) ICD-10-CM: O99.345, F31.81 ICD-9-CM: 648.44, 296.89 CHIEF COMPLAINT/HISTORY OF PRESENT ILLNESS Chief Complaint/History Present Illness Chief Complaint: Suicidal/Hallucinations Current Symptoms: Suicidal, Sleep disturbance, Psychosis, Depression Sleep Disturbance: Disturbed/Interrupted sleep Psychosis: Hallucination Hallucination: Auditory Problems Related to: Other psychosocial/environmental problems (Comment) Presenting Problem: Patient (Pt) presents to the emergency department (ED), voluntarily, for suicidal ideations and hallucinations. Pt was at her appointment today with Dr. Strange who recommended she come to the hospital for inpatient admission. Per Dr. Strange, the Pt has been doing very poorly, hears voices constantly and has racing thoughts. Dr. Strange states Pt has reports suicidal ideations and does not feel in control of them. Pt confirms that she has had increased suicidal ideations for awhile now and they are now occurring multiple times per day. She initially denies having a plan to harm herself but then admits she has thought of ways she could harm herself but wouldn't act on these plans. She would not tell this worker what ways she has thought about harming herself. She states that she has been having increased auditory hallucinations and that they frequently tell her to harm herself. Pt has had poor sleep as she wakes up throughout the night and does not feel rested. She denies issues with appetite. She completes ADLs but reports having less motivation to do them. She reports feelings of hopelessness and worthlessness. She is not future oriented at this time and does not engage in safety planning with this worker. She is calm, cooperative and directable. She is alert and oriented to person, place and time. Thought content, speech, and eye contact are appropriate. Affect is flat. She denies homicidal ideations. Stressors: Pt reports that she has a whole lot of stressors that she doesn't have time to get into. She does mention that her mental health is her biggest stressor and that there is stress in regards to taking care of her 1 year old son. Current/Past Treatment: Pt states she has been seeing Dr. Strange every month for medication management. She reports that Dr. Strange changed her medication today and is not certain what it is. She states she typically takes her medication as prescribed. Pt was hospitalized twice in january 2022. Family: Pt was adopted and does not know if there is any family mental health history. She states she gets along well with her adoptive parents. She has an older brother, older sister and younger sister that she has decent relationships with. She has been with her for 3 years but has been to him for 1 year. She has a 1 year old son that she loves dearly. 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 She denies any current or past legal issues. She denies access to firearms. PAST PSYCHIATRIC HISTORY Past Psychiatric History Previous Psychiatric Diagnosis: Bipolar Disorder Previous Psychiatric Medications: Anti-depressants, Anti-psychotics Previous Psychiatric Hospitalizations: [facility] x2 in January 2022 Current Psychiatric Medications: Please refer to med list ALCOHOL/DRUG ABUSE HISTORY Alcohol/Drug Abuse History Current Alcohol Use (Frequency): Denies Current Drug Use: No MENTAL STATUS EVALUATION Mental Status Evaluation General Appearance: Equal to stated age Orientation: Oriented to person, place, and time Level of Consciousness: Alert Mood/Affect: Flat Behavior: Cooperative, Appropriate to situation, Ability to maintain focus Remote Memory: WDL Language and Speech Content: Appropriate Preoccupations: External stressors, Internal stressors Impulse Control: Acts without considering alternatives Insight: Denial Judgment: Poor PATIENT STRENGTHS Patient Strengths Patient Strengths: Basic self-care skills, Employment, Family/friends, Housing, Mental health services, Motivation to change, Physical health RISK ASSESSMENT Risk Factors Recent Psychological Experiences: Other (Comment) (Pt states a lot going on in life but mental health is biggest stressor) Current Suicidal Ideation: Yes Describe Current Suicidal Ideation : Reports suicidal ideations and has thought of ways to harm self but wouldn't act on them Previous Suicidal Ideation: Yes Describe Previous Suicidal Ideation: Has been hospitalized for suicidal ideations in the past Current Suicide Attempt: No Previous Suicide Attempt: Yes Describe Previous Suicide Attempt: Hx of overdosing Current Self Harm Behavior: No Previous Self Harm Behavior: No Current Plans to Harm Another: No Previous Plans to Harm Another: No History of Attempts to Harm Another: No Access to Weapons: No Violent Episode: No Previous Violent Episode: No Family History of Suicide: No Family History of Mental Illness: Information not available Family History of Substance Abuse: Information not available Elopement: No risk Methods to Calm Down: Quiet time in room Restraint Risk Factors: None PROTECTIVE FACTORS Protective Factors Family and Community Support (Connectedness): Yes Ongoing Medical and Mental Health Services (Community Support): Yes Skills In Problem Solving and Conflict Resolution (Coping Skills): No Cultural and Anglican Beliefs: No Access to Weapons: No TREATMENT RECOMMENDATIONS AND CLINICAL SUMMARY Treatment Recommendations and Clinical Summary Current Recommendations: Psychiatric hospitalization RATIONALE/PLAN FOR TREATMENT: Spoke with Dr. Strange and updated her on the Pt. Per Dr. Strange, Pt is to be admitted to . Did contact Mitzi Ware, behavioral health charge, for bed assignment. Reviewed voluntary form with the Pt, Pt verbalized understanding and signed voluntary. Did update NABEEL Saleh, and DEZ Berumen, on plan of care. [facility] 12-20-2022 Emergency department Note Suicide check- Patient location: in room. Room check: Yes Safety- Precautions: Elopement Interventions: Sitter Visual Checks:; Every 15 mins. Self Injurious Behaviors: None observed. Harmful actions towards others: none observed [facility] 12-20-2022 Emergency department Note Rounding Assessment: Activity- Resting in bed. Cardio/Resp.- Spontaneous, equal chest rise. Respirs unlabored. Skin- Warm and dry. Needs/Concerns- Denies any further needs at this time. Safety- No AMA gown intact. Bed in low fixed position. Continuous monitoring in place. [facility] 12-20-2022 Emergency department Note Rounding Assessment: Activity- Resting in bed. Cardio/Resp.- Spontaneous, equal chest rise. Respirs unlabored. Skin- Warm and dry. Needs/Concerns- Denies any further needs at this time. Safety- No AMA gown intact. Bed in low fixed position. Continuous monitoring in place. [facility] 12-20-2022 Emergency department Note Suicide check- Patient location: in room. Room check: Yes Safety- Precautions: Elopement Interventions: Sitter Visual Checks:; Every 15 mins. Self Injurious Behaviors: None observed. Harmful actions towards others: none observed [facility] 12-20-2022 Emergency department Note Suicide check- Patient location: in room. Room check: Yes Safety- Precautions: Elopement Interventions: Sitter Visual Checks:; Every 15 mins. Self Injurious Behaviors: None observed. Harmful actions towards others: none observed [facility] 12-20-2022 Emergency department Note Rounding Assessment: Activity- Resting in bed. Cardio/Resp.- Spontaneous, equal chest rise. Respirs unlabored. Skin- Warm and dry. Needs/Concerns- Denies any further needs at this time. Safety- No AMA gown intact. Bed in low fixed position. Continuous monitoring in place. [facility] 12-20-2022 Emergency department Note Lunch tray delivered. [facility] 12-20-2022 Physician Emergency department Note ED PROVIDER NOTE [facility] EMERGENCY DEPARTMENT NAME: Ana Hernandez AGE: 22 y.o. : 2000 VISIT DATE: 12/20/2022 CSN: [id number] PCP: Physician No Chief Complaint Patient presents with Suicidal Patient with a history of bipolar disorder presents to the emergency department for a psychiatric evaluation. Patient explains that she came from Dr. Strange's office. Patient explains that she has been hearing voices. She feels suicidal. States that she is having severe and frequent suicidal thoughts. Patient denies any recent illnesses. Denies all physical medical complaints. Denies a chance of . Denies the use of drugs and alcohol. She has no other complaints or concerns at this time. Past Medical History: Diagnosis Date Asthma Diabetes mellitus (HCC) Past Surgical History: Procedure Laterality Date APPENDECTOMY SECTION, CLASSIC Family History Adopted: Yes Family history unknown: Yes Social History Socioeconomic History Marital status: Tobacco Use Smoking status: Never Smokeless tobacco: Never Vaping Use Vaping Use: Never used Substance and Sexual Activity Alcohol use: Never Drug use: Never Sexual activity: Yes Partners: Male control/protection: I.U.D. Comment: will have IUD after medically cleared from having baby Previous Medications Medication Sig albuterol 90 mcg/actuation inhaler Inhale 2 (two) puffs every 6 (six) hours as needed for wheezing or shortness of breath . benztropine (COGENTIN) 1 MG tablet Take 1 (one) tablet (1 mg total) by mouth 2 (two) times a day . lithium 300 MG capsule Take 1 (one) capsule (300 mg total) by mouth 3 (three) times a day with meals . LORazepam (ATIVAN) 1 MG tablet Take 1 (one) tablet (1 mg total) by mouth 2 (two) times a day as needed . paliperidone (INVEGA) 3 MG 24 hr tablet Take 1 (one) tablet (3 mg total) by mouth every morning . [DISCONTINUED] haloperidoL (HALDOL) 5 MG tablet Take 1 (one) tablet (5 mg total) by mouth 2 (two) times a day . [DISCONTINUED] lamoTRIgine (LAMICTAL) 150 MG tablet Take 1 (one) tablet (150 mg total) by mouth daily . [DISCONTINUED] LORazepam (ATIVAN) 1 MG tablet Take 1 (one) tablet (1 mg total) by mouth 2 (two) times a day as needed . 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 Allergies Allergen Reactions Penicillins Rash Review of Systems Constitutional: Negative for activity change, chills, fatigue and fever. HENT: Negative for congestion, ear pain, hearing loss, postnasal drip, rhinorrhea, sore throat and trouble swallowing. Eyes: Negative for photophobia, pain, redness and visual disturbance. Respiratory: Negative for cough, chest tightness, shortness of breath and wheezing. Cardiovascular: Negative for chest pain, palpitations and leg swelling. Gastrointestinal: Negative for abdominal pain, constipation, diarrhea, nausea and vomiting. Genitourinary: Negative for difficulty urinating, dysuria, hematuria and urgency. Musculoskeletal: Negative for arthralgias, back pain, myalgias, neck pain and neck stiffness. Skin: Negative for color change and rash. Neurological: Negative for dizziness, speech difficulty, weakness, numbness and headaches. Psychiatric/Behavioral: Positive for hallucinations and suicidal ideas. Negative for agitation. The patient is not nervous/anxious. Patient Vitals for the past 24 hrs: BP Temp Pulse Resp SpO2 12/20/22 1352 134/85 98.3 F (36.8 C) 83 16 98 % Physical Exam Vitals and nursing note reviewed. Constitutional: General: She is not in acute distress. Appearance: She is well-developed. She is not toxic-appearing. HENT: Head: Normocephalic and atraumatic. Right Ear: External ear normal. Left Ear: External ear normal. Eyes: Extraocular Movements: Extraocular movements intact. Conjunctiva/sclera: Conjunctivae normal. Cardiovascular: Rate and Rhythm: Normal rate and regular rhythm. Pulses: Normal pulses. Heart sounds: Normal heart sounds. Musculoskeletal: General: No deformity. Cervical back: Normal range of motion. Pulmonary: Effort: Pulmonary effort is normal. Breath sounds: Normal breath sounds. Abdominal: Palpations: Abdomen is soft. Tenderness: There is no abdominal tenderness. Skin: General: Skin is warm and dry. Neurological: General: No focal deficit present. Mental Status: She is alert. Psychiatric: Mood and Affect: Mood normal. Laboratory & Radiographic Imaging (if done): Results for orders placed or performed during the hospital encounter of 12/20/22 COVID-19, Molecular Specimen: Nasopharyngeal; Swab Result Value Ref Range SARS-CoV-2 Not Detected Not Detected Chem 7 Result Value Ref Range Sodium 138 135 - 145 mmol/L Potassium 3.7 3.5 - 5.1 mmol/L Chloride 106 98 - 108 mmol/L Bicarbonate 23 21 - 32 mmol/L Anion Gap 13 10 - 20 mmol/L Glucose 87 65 - 99 mg/dL BUN 10 8 - 25 mg/dL Creatinine 0.92 0.40 - 1.10 mg/dL eGFR 91 >=60 mL/min/1.73 m2 BUN/Creatinine Ratio 10.9 10.0 - 20.0 Alcohol, Medical Result Value Ref Range Alcohol (Medical) <10.00 <10.00 mg/dL Urine Drug Screen Result Value Ref Range Amphetamine Screen, Urine None Detected None Detected Barbiturate Screen, Urine None Detected None Detected Benzodiazepine Screen, Urine None Detected None Detected Cannabinoid Screen, Urine None Detected None Detected Cocaine, Screen Urine None Detected None Detected Methadone Screen, Urine None Detected None Detected Opiate Screen, Urine None Detected None Detected Oxycodone Screen, Urine None Detected None Detected Buprenorphine, Ur None Detected None Detected Fentanyl, Ur None Detected None Detected Urine Result Value Ref Range Beta-hCG, Ur, Qual Negative Negative Urinalysis Result Value Ref Range Color, Urine Yellow Colorless, Yellow Clarity, Urine Cloudy (A) Clear Specific Craig 1.025 1.005 - 1.025 pH, Urine 5.5 5.0 - 7.0 Protein, Urine Negative Negative mg/dL Glucose, Urine Negative Negative mg/dL Ketones, Urine Negative Negative mg/dL Bilirubin, Urine Negative Negative Urobilinogen, Urine <2.0 <2.0 mg/dL Blood, Urine Small (A) Negative Nitrite, Urine Negative Negative Leukocyte Esterase, Urine Large (A) Negative WBCs, Urine 24 (H) 0 - 5 /hpf RBCs, Urine 4 (H) 0 - 3 /hpf Bacteria, Urine None Seen None Seen /hpf Squamous Epithelial 6 (H) 0 - 4 /hpf Transitional Epithelial 1 0 - 1 /hpf Amorphous Crystals Few (A) None Seen, Rare /hpf Mucus, Urine Few (A) None Seen, Rare /lpf No orders to display Procedures Medical Decision Making Patient with a history of bipolar disorder presents to the emergency department for a psychiatric evaluation. Patient explains that she came from Dr. Strange's office. Patient explains that she has been hearing voices. She feels suicidal. States that she is having severe and frequent suicidal thoughts. Patient denies any recent illnesses. Denies all physical medical complaints. Denies a chance of . Denies the use of drugs and alcohol. She has no other complaints or concerns at this time. No acute abnormalities on physical exam. Urinalysis reveals leukocytes and white blood cells. Urine culture sent. Given Macrobid. Will be diagnosed with a UTI and treated. She was medically cleared for social work evaluation. Social work recommended admission to Dr. Strange for major depression. The patient has been informed that they may have pre-hypertension or hypertension based on a blood pressure reading in the Emergency Department. I recommend that the patient call the primary care provider listed on their discharge instructions or a physician of their choice as soon as possible to arrange follow-up in the next 4 weeks for further evaluation of possible pre-hypertension or hypertension. . Clinical Impression: 1. Depression, unspecified depression type 2. Acute UTI ED Disposition ED Disposition Hospitalize Condition -- Comment Phone call required?: No Follow-up Information Follow-up information has not been specified. Contact information for after-discharge care Follow-up information has not been specified. Therese Buenrostro PA-C 12/20/22 [address] [employer] Phone: 12-20-2022 Emergency department Triage note Pt to ED with complaints of suicidal ideation. Pt reports having these feelings since having her son around a year ago, with increasing depression and suicidal thoughts since. Pt reports no plan at this point. Pt reports a suicide attempt by overdosing on pills prior to of son. Pt reports good support system of and mother. [facility] 12-20-2022 History of Present illness Narrative BEHAVIORAL HEALTH PSYCHIATRIC PROGRESS NOTE 12/20/2022 Ana Hernandez, a 22 y.o. female, for follow-up visit. Patient is referred by Physician No . Interval History: Ana is here with her mother today. She been doing very poorly as an outpatient. She hears voices constantly and her mind is racing. The haloperidol has not helped with either problem. She has very frequent suicidal thoughts that she does not feel in control of. Reluctantly agreed to hospitalization and was escorted to the emergency department. PFSH: Past Medical History: Diagnosis Date Asthma Diabetes mellitus (HCC) Social History Substance and Sexual Activity Alcohol Use Never Social History Substance and Sexual Activity Drug Use Never Social History Substance and Sexual Activity Sexual Activity Yes Partners: Male control/protection: I.U.D. Comment: will have IUD after medically cleared from having baby Family History Adopted: Yes Family history unknown: Yes The following portions of the patient's history were reviewed and updated as appropriate: allergies, current medications, past family history, past medical history, past social history, past surgical history, and problem list. Review of Systems Physical Exam PSYCHIATRIC EXAM: Grooming & Hygiene: General Behavior: pleasant & cooperative Psychomotor Activity: no psychomotor abnormalities Speech: Within normal limits Flow to Thought: logical & goal directed Thought Associations: Intact Content of Thought: suicidal idealizations including without intent and plan and auditory hallucinations including auditory Mood: Depressed Affect: disphoric Insight: intact Judgment: fair Orientation: alert and oriented to person, place, time Memory: Recent intact Attention: Adequate Concentration: impaired Language: Fluent Fund of Knowledge: above average Labs/ Diagnostic Imaging reviewed: No recent data Response to Medication: Poor ASSESSMENT AND PLAN: A: Schizoaffective disorder bipolar type P: Hospitalize for patient safety and stabilization Follow-up plan was discussed with patient. Impression/ Plan: No Changes Falls Of Rough I: Schizoaffective Disorder [place] II: No diagnosis [place] III: See problem list [place] IV: other psychosocial or environmental problems Falls [place] Rough V: 41-50 serious symptoms Recommendations: Review with patient: Treatment plan reviewed with the patient. Medication risks/benefit reviewed with the patient Total Time: 30mins >50% time counseling or coordinating care DIAGNOSIS: F25.0 Total Time: 30 mins __ >50% time counseling or coordinating care Belgica Strange documented in this encounter [facility] 10-31-2022 History of Present illness Narrative BEHAVIORAL HEALTH PSYCHIATRIC PROGRESS NOTE 10/31/2022 Ana Hernandez, a 22 y.o. female, for follow-up visit. Patient is referred by Physician No . Interval History: Has been feeling better current medications. Voices are much less. No paranoia. Her mood continues to be a bit unstable short periods of irritability. No suicidal thinking which is. She still struggles with periodic depression. She is eating a lot or wants to eat a lot. No other side effects. Sleeping better. PFSH: Past Medical History: Diagnosis Date Asthma Diabetes mellitus (HCC) Social History Substance and Sexual Activity Alcohol Use Never Social History Substance and Sexual Activity Drug Use Never Social History Substance and Sexual Activity Sexual Activity Yes Partners: Male control/protection: I.U.D. Comment: will have IUD after medically cleared from having baby Family History Adopted: Yes Family history unknown: Yes The following portions of the patient's history were reviewed and updated as appropriate: allergies, current medications, past family history, past medical history, past social history, past surgical history, and problem list. Review of Systems Constitutional: Negative. HENT: Negative. Eyes: Negative. Respiratory: Negative. Cardiovascular: Negative. Gastrointestinal: Negative. Endocrine: Negative. Genitourinary: Negative. Musculoskeletal: Negative. Skin: Negative. Allergic/Immunologic: Negative. Neurological: Negative. Psychiatric/Behavioral: Positive for decreased concentration and hallucinations. Physical Exam PSYCHIATRIC EXAM: Grooming & Hygiene: well groomed and neat General Behavior: pleasant & cooperative Psychomotor Activity: no psychomotor abnormalities Speech: WNL Flow to Thought: logical & goal directed Thought Associations: Intact Content of Thought: No evidence of suicidal idealizations / homicidal idealizations / delusions / obsessions Mood: ok Affect: blunted Insight: good Judgment: good Orientation: alert and oriented to person, place, time Memory: Recent intact Attention: intact Concentration: intact Language: WNL Fund of Knowledge: intact Labs/ Diagnostic Imaging reviewed: no new data Response to Medication: Good ASSESSMENT AND PLAN: A: Bipolar 1 disorder versus schizoaffective disorder, improved on current regimen with some residual symptoms. P: Continue lamotrigine 150 mg. Increase Zyprexa to 7 and half milligrams nightly. Follow-up plan was discussed with patient. Impression/ Plan: No Changes Falls Of Rough I: Bipolar, mixed Falls Of Rough II: No diagnosis [place] III: No diagnosis [place] IV: other psychosocial or environmental problems [place] Rough V: 51-60 moderate symptoms Recommendations: RTC 4 weeks Review with patient: Treatment plan reviewed with the patient. Medication risks/benefit reviewed with the patient Total Time: 15 mins >50% time counseling or coordinating care DIAGNOSIS: F31.9 patient and spouse has been informed of the benefits, risks, possible side effects and alternatives to the medical treatment listed above and have expressed understanding Total Time: 15 mins __ >50% time counseling or coordinating care Belgica Strange documented in this encounter [facility] 10-10-2022 History of Present illness Narrative BEHAVIORAL HEALTH PSYCHIATRIC PROGRESS NOTE 10/10/2022 Ana Hernandez, a 22 y.o. female, for follow-up visit. Patient is referred by Physician No . Interval History: Ana is here with her mother and today. They are concerned that she is not telling me everything that is wrong. She has not done well since her last visit. She is hearing voices frequently, more than one, usually negative. She is also having paranoid thoughts mostly that have to do with self-esteem issues. She is having trouble with agitation and racing thoughts. Her medicines are now locked up because she impulsively overdosed on Ativan. She did not come to the hospital. We discussed the necessity of keeping her safe while she is getting stable. She does not sleep well. She has been abusing Dramamine to try to stay calm. No suicidal thoughts at this time. However she has heard voices recently telling her to throw herself down the stairs. This was at the time she overdosed on the Ativan and she did, in fact, fall downstairs. She has a lot of social support and supervision at home. Living with her parents right now and her and small child. PFSH: Past Medical History: Diagnosis Date Asthma Diabetes mellitus (HCC) Social History Substance and Sexual Activity Alcohol Use Never Social History Substance and Sexual Activity Drug Use Never Social History Substance and Sexual Activity Sexual Activity Yes Partners: Male control/protection: I.U.D. Comment: will have IUD after medically cleared from having baby Family History Adopted: Yes Family history unknown: Yes The following portions of the patient's history were reviewed and updated as appropriate: allergies, current medications, past family history, past medical history, past social history, past surgical history, and problem list. Review of Systems Constitutional: Negative. HENT: Negative. Eyes: Negative. Respiratory: Negative. Cardiovascular: Negative. Gastrointestinal: Negative. Endocrine: Negative. Genitourinary: Negative. Musculoskeletal: Negative. Skin: Negative. Allergic/Immunologic: Negative. Neurological: Negative. Hematological: Negative. Psychiatric/Behavioral: Positive for agitation, dysphoric mood, hallucinations, self-injury, sleep disturbance and suicidal ideas. The patient is nervous/anxious. Physical Exam PSYCHIATRIC EXAM: Grooming & Hygiene: well groomed and casually dressed General Behavior: pleasant & cooperative Psychomotor Activity: no psychomotor abnormalities Speech: Within normal limits Flow to Thought: logical & goal directed Thought Associations: Intact Content of Thought: auditory hallucinations including command auditory hallucinations and hallucinations Mood: Anxious Affect: full range Insight: intact Judgment: fair Orientation: alert and oriented to person, place, time Memory: Recent intact Attention: intact Concentration: impaired Language: Within normal limits Fund of Knowledge: intact Labs/ Diagnostic Imaging reviewed: No recent data Response to Medication: Poor ASSESSMENT AND PLAN: A: Bipolar 1 mixed symptoms with psychosis versus schizoaffective disorder bipolar type P: Discontinue Prozac. Discontinue Abilify. Begin olanzapine 5 mg nightly. Increase Ativan to 1 mg twice a day as needed anxiety. Continue lamotrigine 150 mg Follow-up plan was discussed with patient. Impression/ Plan: No Changes Falls Of Rough I: Bipolar, mixed Falls Of Rough II: No diagnosis [place] III: See problem list [place] IV: other psychosocial or environmental problems Falls Of Rough V: 41-50 serious symptoms Recommendations: RTC 2 weeks or as needed Review with patient: Treatment plan reviewed with the patient. Medication risks/benefit reviewed with the patient Total Time: 30 mins >50% time counseling or coordinating care DIAGNOSIS: F31.9 patient has been informed of the benefits, risks, possible side effects and alternatives to the medical treatment listed above and have expressed understanding Total Time: 30 mins __ >50% time counseling or coordinating care Belgica Strange documented in this encounter [facility] 08-15-2022 Note Addended by: SRINIVAS LYON on: 08/15/2022 01:32 PM Modules accepted: Orders [facility] 08-15-2022 Miscellaneous Notes Addended by: SRINIVAS LYON on: 08/15/2022 01:32 PM Modules accepted: Orders documented in this encounter [facility] 06-14-2022 History of Present illness Narrative BEHAVIORAL HEALTH PSYCHIATRIC PROGRESS NOTE 06/14/2022 Ana Hernandez, a 22 y.o. female, for follow-up visit. Patient is referred by Physician No . Interval History: Ana feels that she is more stable than she has been in a while. When she forgets to take her medicine she immediately regresses into severe irritability. She has not had any suicidal thoughts. Functioning okay on a day-to-day basis. She continues in therapy and in marriage counseling. No side effects from medications. Her current complaints include racing thoughts and anxiety. PFSH: Past Medical History: Diagnosis Date Asthma Diabetes mellitus (HCC) Social History Substance and Sexual Activity Alcohol Use Never Social History Substance and Sexual Activity Drug Use Never Social History Substance and Sexual Activity Sexual Activity Yes Partners: Male control/protection: I.U.D. Comment: will have IUD after medically cleared from having baby Family History Adopted: Yes Family history unknown: Yes The following portions of the patient's history were reviewed and updated as appropriate: allergies, current medications, past family history, past medical history, past social history, past surgical history, and problem list. Review of Systems All other systems reviewed and are negative. Physical Exam PSYCHIATRIC EXAM: Grooming & Hygiene: well groomed General Behavior: pleasant & cooperative Psychomotor Activity: no psychomotor abnormalities Speech: Within normal limits Flow to Thought: logical & goal directed Thought Associations: Intact Content of Thought: No evidence of suicidal idealizations / homicidal idealizations / delusions / obsessions Mood: Anxious Affect: full range Insight: intact Judgment: good Attention: intact Concentration: intact Language: Within normal limits Fund of Knowledge: intact Labs/ Diagnostic Imaging reviewed: No new data Response to Medication: Adequate ASSESSMENT AND PLAN: A: Bipolar 1 disorder current symptoms mixed P: Increase Abilify to 15 mg and reduce Prozac to 10 mg daily continue lamotrigine 150 mg Follow-up plan was discussed with patient. Impression/ Plan: No Changes Falls Of Rough I: Bipolar, mixed Falls Of Rough II: Deferred [place] III: See problem list [place] IV: other psychosocial or environmental problems [place] V: 61-70 mild symptoms Recommendations: RTC 2 months Review with patient: Treatment plan reviewed with the patient. Medication risks/benefit reviewed with the patient Total Time: 20 minutes>50% time counseling or coordinating care DIAGNOSIS: F 31.9 patient and spouse has been informed of the benefits, risks, possible side effects and alternatives to the medical treatment listed above and have expressed understanding Total Time: __ >50% time counseling or coordinating care Belgica Strange documented in this encounter [facility] 05-08-2022 Evaluation + Plan note Diagnostic Tests PendingN. gonorrhoeae PCR 05/08/22HSV 1 and 2 IgG and IgM - Panel 05/08/22Chlamydia trachomatis PCR 05/08/22Rapid Plasma Reagin Test 05/08/22 Future Scheduled TestsPrenatal Panel (AO) 07/21/21US OB < 14 weeks 06/07/21 [facility] 04-05-2022 History of Present illness Narrative BEHAVIORAL HEALTH PSYCHIATRIC PROGRESS NOTE 04/05/2022 Ana Hernandez, a 22 y.o. female, for follow-up visit. Patient is referred by Physician No . Interval History: Ana continues to struggle with depression and anxiety. She especially has a hard time when her is not home. Her problems are compounded by her self-criticism that she is not doing a better job of mothering. She does have considerable assistance from her parents and her is very involved. No suicidal thoughts. Sleeping well when she gets a chance. No side effects from her medications. She is involved in counseling in [place]. PFSH: Past Medical History: Diagnosis Date Asthma Diabetes mellitus (HCC) Social History Substance and Sexual Activity Alcohol Use Never Social History Substance and Sexual Activity Drug Use Never Social History Substance and Sexual Activity Sexual Activity Yes Partners: Male control/protection: I.U.D. Comment: will have IUD after medically cleared from having baby Family History Adopted: Yes Family history unknown: Yes The following portions of the patient's history were reviewed and updated as appropriate: allergies, current medications, past family history, past medical history, past social history, past surgical history, and problem list. Review of Systems Physical Exam PSYCHIATRIC EXAM: Grooming & Hygiene: well groomed General Behavior: pleasant & cooperative Psychomotor Activity: no psychomotor abnormalities Speech: Within normal limits Flow to Thought: logical & goal directed Thought Associations: Intact Content of Thought: No evidence of suicidal idealizations / homicidal idealizations / delusions / obsessions Mood: Depressed and Anxious Affect: anxious Insight: intact Judgment: good Orientation: alert and oriented to person, place, time Memory: Recent intact Attention: intact Concentration: intact Language: Fluent Fund of Knowledge: intact Labs/ Diagnostic Imaging reviewed: No new data Response to Medication: Adequate ASSESSMENT AND PLAN: A: Bipolar 2 disorder with onset P: Continue current medications and continue counseling Follow-up plan was discussed with patient. Impression/ Plan: No Changes Falls Of Rough I: Bipolar 2 disorder Falls Of Rough II: No diagnosis [place] III: See problem list [place] IV: other psychosocial or environmental problems [place] Rough V: 61-70 mild symptoms Recommendations: RTC 3 months Review with patient: Treatment plan reviewed with the patient. Medication risks/benefit reviewed with the patient Total Time: 20 minutes>50% time counseling or coordinating care DIAGNOSIS: F31.81 patient has been informed of the benefits, risks, possible side effects and alternatives to the medical treatment listed above and have expressed understanding Total Time: 20 minutes __ >50% time counseling or coordinating care Belgica Strange documented in this encounter [facility] 02-26-2022 Hospital course Narrative Inpatient Psychiatry Discharge Summary Patient Name: Ana Hernandez MR #: [id number] : 2000 Admit Date: [id number] Discharge Date/Time: 02/26/2022 2:05 PM Clinical Summary Reason for Hospitalization: Homicidal and suicidal ideation in the context of post exacerbation of Bipolar Disorder. Discharge Diagnoses and Associated Hospital Course: * Bipolar II disorder major depressive with onset (HCC) Assessment & Plan A: Ana Hastings , as she prefers to be called, was feeling well when she left the unit on Saturday. She was hopeful and optimistic. She then developed problems falling asleep and staying asleep. She became more irritable. Her new baby was screaming and crying and she had thoughts about hurting him and then immediately had thoughts about suicide. She states that the thoughts were so strong that they were like voices not her own. She spent the night at the hospital and feels fine again today except for the worry and guilt about her mental disorder. 02-26-2022: Darling states that she is thinking more clearly than she has in a long time and she attributes that to the addition of the Abilify. She states she feels good. No hallucinations. No suicidal or homicidal thinking. She has enlisted the help of her and her parents so she can sleep at night and so she won't be alone with the baby. She states that she has social support and professional help available to her at all times. She understands that she may have some steep ups and downs and she is more than willing to reach out when she needs help. Plan: Discharge to outpatient follow-up Consults placed Procedures Inpatient consult to Hospitalist Nutrition services referral Allergies Penicillins Procedures performed No orders of the defined types were placed in this encounter. Other tests No orders of the defined types were placed in this encounter. Studies pending at discharge None Laboratory Results: Lab Results Component Value Date CHOL 127 02/16/2022 HDL 24 (L) 02/16/2022 LDLCALC 24 02/16/2022 TRIG 396 (H) 02/16/2022 No results found for: HGBA1C Lab Results Component Value Date TSH 0.49 02/16/2022 Review of Systems: Constitutional, cardiac, pulmonary, neurologic, musculoskeletal, GI and systems reveiwed and negative except as noted above Mental Status Evaluation: General Appearance & Behavior: age appropriate, pleasant, cooperative, good eye contact Grooming & Hygiene: neat and clean and street clothes Psychomotor Activity: no psychomotor abnormalities or muscle atrophy noted Gait & Station stable gait and ability to rise from bed/chair without assistance Speech: normal rate, rhythym, volume, and spontaneity Flow of Thought: linear and goal directed Thought Associations: Intact Content of Thought: No evidence of suicidal ideations/homicidal ideations/psychosis Mood: much better Affect: euthymic Insight: intact Judgment: intact Orientation: alert and oriented to person, place, time, and circumstances Memory: intact recent and remote Attention: intact Concentration: intact Language: fluent Fund of Knowledge: estimated average intelligence Discharge Information PRINCIPAL DIAGNOSIS at Discharge: Bipolar II disorder major depressive with onset (HCC) Discharge Medications: Medication List START taking these medications ARIPiprazole 5 MG tablet Commonly known as: ABILIFY Take 1 (one) tablet (5 mg total) by mouth daily Start: 02/27/22. Start taking on: February 27, 2022 CHANGE how you take these medications lamoTRIgine 100 MG tablet Commonly known as: LAMICTAL Take 1 (one) tablet (100 mg total) by mouth daily Start: 02/27/22. Start taking on: February 27, 2022 What changed: medication strength how much to take CONTINUE taking these medications albuterol 90 mcg/actuation inhaler Inhale 2 (two) puffs every 6 (six) hours as needed for wheezing or shortness of breath . FLUoxetine 20 MG capsule Commonly known as: PROZAC Take 1 (one) capsule (20 mg total) by mouth daily Start: 02/20/22. vitamin with Ca-Iron-FA 27-1 mg Tab Where to Get Your Medications These medications were sent to [address] [id number] ARIPiprazole 5 MG tablet lamoTRIgine 100 MG tablet This patient is being discharged on one antipsychotic. Diagnostic work up including: BMI, blood pressure, hemoglobin A1c or blood glucose, and lipid panel have been completed in the past year performed within [facility] and available in EPIC. Glucose <126mg/dL, no indication of impaired glucose tolerance or insulin resistance in fasting or nonfasting state. Tobacco cessation medication not indicated; Patient is only a someday tobacco user or doesn't use currently. Disposition: Home [facility] Up: [facility] [address] [place] [address] Go on 02/27/2022 Appointment: 02/27/22 at 1:00pm w/Eve for counseling Belgica Strange MD [address] [place] [address] Schedule an appointment as soon as possible for a visit Left message with Srinivas - awaiting response. MEM Discharge Diet: Resume home diet Additional Information: Provider(s): Primary Care: No primary care provider on file. Phone: None Address: No primary physician on file. To contact Belgica Strange MD or medical office professional instructor physician, call [phone] ([place]) for 24 hour/7 day for emergencies related to inpatient stay or to obtain results of studies pending at discharge. Patient instructions, including activity, were given to the patient/family at discharge. Please see the After Visit Summary in the medical record for details. Time spent on discharge: > 30 minutes Completed by: Belgica Strange on 02/26/22, 2:30 PM documented in this encounter [facility] 02-26-2022 Hospital Discharge instructions CECILIA Bowens - 02/26/2022 2:05 PM EDT Images from the original note were not included. documented in this encounter [facility] 02-26-2022 Note Formatting of this n ote might be different from the original. Problem: Actual or potential alteration in health Goal: Absence of healthcare acquired conditions 02/26/2022 1254 by Deyanira Andres RN Outcome: Completed 02/26/2022 0804 by Deyanira Andres RN Outcome: Met Goal: Knowledge of Interdisciplinary Plan of Care 02/26/2022 1254 by Deyanira Andres RN Outcome: Completed 02/26/2022 0804 by Deyanira Andres RN Outcome: Partially Met Goal: Knowledge of Enviroment 02/26/2022 1254 by Deyanira Andres RN Outcome: Completed 02/26/2022 08 by Deyanira Andres RN Outcome: Partially Met Problem: Pain Goal: Manage acute pain 02/26/2022 1254 by Deyanira Andres RN Outcome: Completed 02/26/2022 0804 by Deyanira Anders RN Outcome: Met Goal: Manage chronic pain 02/26/2022 1254 by Deyanira Andres RN Outcome: Completed 02/26/2022 0804 by Deyanira Andres RN Outcome: Met Goal: Reduced pain sensation 02/26/2022 1254 by Deyanira Andres RN Outcome: Completed 02/26/2022 08 by Deyanira Andres RN Outcome: Met Goal: Achievement of comfort function goal 02/26/2022 1254 by Deyanira Andres RN Outcome: Completed 02/26/2022 08 by Deyanira Andres RN Outcome: Met Problem: Cognitive-Perceptual Pattern - Impaired Goal: Improved thought processes 02/26/2022 1254 by Deyanira Andres RN Outcome: Completed 02/26/2022 08 by Deyanira Andres RN Outcome: Partially Met Goal: Improved environmental perceptions 02/26/2022 1254 by Deyanira Andres RN Outcome: Completed 02/26/2022 08 by Deyanira Andres RN Outcome: Partially Met Problem: Coping - Ineffective, Family Goal: Effective coping 02/26/2022 1254 by Deyanira Andres RN Outcome: Completed 02/26/2022 08 by Deyanira Andres RN Outcome: Partially Met Goal: Knowledge of problem-solving techniques 02/26/2022 1254 by Deyanira Andres RN Outcome: Completed 02/26/2022 08 by Deyanira Andres RN Outcome: Partially Met Goal: Knowledge of community resources 02/26/2022 1254 by Deyanira Andres RN Outcome: Completed 02/26/2022 08 by Deyanira Andres RN Outcome: Partially Met Goal: Participation in family member care 02/26/2022 1254 by Deyanira Andres RN Outcome: Completed 02/26/2022 08 by Deyanira Andres RN Outcome: Not Addressed Problem: Coping- Ineffective Goal: Effective coping 02/26/2022 1254 by Deyanira Andres RN Outcome: Completed 02/26/2022 0804 by Deyanira Andres RN Outcome: Partially Met Problem: Health Maintenance - Impaired Goal: Knowledge of disease process 02/26/2022 1254 by Deyanira Andres RN Outcome: Completed 02/26/2022 08 by Deyanira Andres RN Outcome: Partially Met Problem: Mood - Altered Goal: Appropriate social interaction 02/26/2022 1254 by Deyanira Andres RN Outcome: Completed 02/26/2022 08 by Deyanira Andres RN Outcome: Met Problem: Social Interaction - Impaired Goal: Appropriate social interaction 02/26/2022 1254 by Deyanira Andres RN Outcome: Completed 02/26/2022 08 by Deyanira Andres RN Outcome: Met Goal: Participation in group activities 02/26/2022 1254 by Deyanira Andres RN Outcome: Completed 02/26/2022 08 by Deyanira Andres RN Outcome: Met Problem: Violence - Risk of, Self/Other-Directed Goal: Absence of violence 02/26/2022 1254 by Deyanira Andres RN Outcome: Completed 02/26/2022 08 by Deyanira Andres RN Outcome: Met Problem: Plan for Discharge Goal: Knowledge of discharge plan and instructions 02/26/2022 1254 by Deyanira Andres RN Outcome: Completed 02/26/2022 08 by Deyanira Andres RN Outcome: Not Addressed Goal: Knowledge of medication management 02/26/2022 1254 by Deyanira Andres RN Outcome: Completed 02/26/2022 08 by Deyanira Andres RN Outcome: Not Addressed Goal: Knowledge of need for follow-up care 02/26/2022 1254 by Deyanira Andres RN Outcome: Completed 02/26/2022 08 by Deyanira Andres RN Outcome: Not Addressed [facility] 02-26-2022 Miscellaneous Notes Problem: Actual or potential alteration in health Goal: Absence of healthcare acquired conditions 02/26/2022 1254 by Deyanira Andres RN Outcome: Completed 02/26/2022 08 by Deyanira Andres RN Outcome: Met Goal: Knowledge of Interdisciplinary Plan of Care 02/26/2022 1254 by Deyanira Andres RN Outcome: Completed 02/26/2022 0804 by Deyanira Andres RN Outcome: Partially Met Goal: Knowledge of Enviroment 02/26/2022 1254 by Deyanira Andres RN Outcome: Completed 02/26/2022 08 by Deyanira Andres RN Outcome: Partially Met Problem: Pain Goal: Manage acute pain 02/26/2022 1254 by Deyanira Andres RN Outcome: Completed 02/26/2022 08 by Deyanira Andres RN Outcome: Met Goal: Manage chronic pain 02/26/2022 1254 by Deyanira Andres RN Outcome: Completed 02/26/2022 08 by Deyanira Andres RN Outcome: Met Goal: Reduced pain sensation 02/26/2022 1254 by Deyanira Andres RN Outcome: Completed 02/26/2022 08 by Deyanira Andres RN Outcome: Met Goal: Achievement of comfort function goal 02/26/2022 1254 by Deyanira Andres RN Outcome: Completed 02/26/2022 08 by Deyanira Andres RN Outcome: Met Problem: Cognitive-Perceptual Pattern - Impaired Goal: Improved thought processes 02/26/2022 1254 by Deyanira Andres RN Outcome: Completed 02/26/2022 08 by Deyanira Andres RN Outcome: Partially Met Goal: Improved environmental perceptions 02/26/2022 1254 by Deyanira Andres RN Outcome: Completed 02/26/2022 08 by Deyanira Andres RN Outcome: Partially Met Problem: Coping - Ineffective, Family Goal: Effective coping 02/26/2022 1254 by Deyanira Andres RN Outcome: Completed 02/26/2022 08 by Deyanira Andres RN Outcome: Partially Met Goal: Knowledge of problem-solving techniques 02/26/2022 1254 by Deyanira Andres RN Outcome: Completed 02/26/2022 08 by Deyanira Andres RN Outcome: Partially Met Goal: Knowledge of community resources 02/26/2022 1254 by Deyanira Andres RN Outcome: Completed 02/26/2022 08 by Deyanira Andres RN Outcome: Partially Met Goal: Participation in family member care 02/26/2022 1254 by Deyanira Andres RN Outcome: Completed 02/26/2022 08 by Deyanira Andres RN Outcome: Not Addressed Problem: Coping- Ineffective Goal: Effective coping 02/26/2022 1254 by Deyanira Andres RN Outcome: Completed 02/26/2022 0804 by Deyanira Andres RN Outcome: Partially Met Problem: Health Maintenance - Impaired Goal: Knowledge of disease process 02/26/2022 1254 by Deyanira Andres RN Outcome: Completed 02/26/2022 08 by Deyanira Andres RN Outcome: Partially Met Problem: Mood - Altered Goal: Appropriate social interaction 02/26/2022 1254 by Deyanira Andres RN Outcome: Completed 02/26/2022 08 by Deyanira Andres RN Outcome: Met Problem: Social Interaction - Impaired Goal: Appropriate social interaction 02/26/2022 1254 by Deyanira Andres RN Outcome: Completed 02/26/2022 08 by Deyanira Andres RN Outcome: Met Goal: Participation in group activities 02/26/2022 1254 by Deyanira Andres RN Outcome: Completed 02/26/2022 08 by Deyanira Andres RN Outcome: Met Problem: Violence - Risk of, Self/Other-Directed Goal: Absence of violence 02/26/2022 1254 by Deyanira Andres RN Outcome: Completed 02/26/2022 08 by Deyanira Andres RN Outcome: Met Problem: Plan for Discharge Goal: Knowledge of discharge plan and instructions 02/26/2022 1254 by Deyanira Andres RN Outcome: Completed 02/26/2022 08 by Deyanira Andres RN Outcome: Not Addressed Goal: Knowledge of medication management 02/26/2022 1254 by Deyanira Andres RN Outcome: Completed 02/26/2022 08 by Deyanira Andres RN Outcome: Not Addressed Goal: Knowledge of need for follow-up care 02/26/2022 1254 by Deyanira Andres RN Outcome: Completed 02/26/2022 08 by Deyanira Andres RN Outcome: Not Addressed Problem: Actual or potential alteration in health Goal: Absence of healthcare acquired conditions Outcome: Met Problem: Pain Goal: Manage acute pain Outcome: Met Goal: Manage chronic pain Outcome: Met Goal: Reduced pain sensation Outcome: Met Goal: Achievement of comfort function goal Outcome: Met Problem: Mood - Altered Goal: Appropriate social interaction Outcome: Met Problem: Social Interaction - Impaired Goal: Appropriate social interaction Outcome: Met Goal: Participation in group activities Outcome: Met Problem: Violence - Risk of, Self/Other-Directed Goal: Absence of violence Outcome: Met Problem: Actual or potential alteration in health Goal: Knowledge of Interdisciplinary Plan of Care Outcome: Partially Met Goal: Knowledge of Enviroment Outcome: Partially Met Problem: Cognitive-Perceptual Pattern - Impaired Goal: Improved thought processes Outcome: Partially Met Goal: Improved environmental perceptions Outcome: Partially Met Problem: Coping - Ineffective, Family Goal: Effective coping Outcome: Partially Met Goal: Knowledge of problem-solving techniques Outcome: Partially Met Goal: Knowledge of community resources Outcome: Partially Met Problem: Coping- Ineffective Goal: Effective coping Outcome: Partially Met Problem: Health Maintenance - Impaired Goal: Knowledge of disease process Outcome: Partially Met Problem: Coping - Ineffective, Family Goal: Participation in family member care Outcome: Not Addressed Problem: Plan for Discharge Goal: Knowledge of discharge plan and instructions Outcome: Not Addressed Goal: Knowledge of medication management Outcome: Not Addressed Goal: Knowledge of need for follow-up care Outcome: Not Addressed Problem: Actual or potential alteration in health Goal: Absence of healthcare acquired conditions Outcome: Met Problem: Pain Goal: Manage acute pain Outcome: Met Goal: Manage chronic pain Outcome: Met Goal: Reduced pain sensation Outcome: Met Goal: Achievement of comfort function goal Outcome: Met Problem: Violence - Risk of, Self/Other-Directed Goal: Absence of violence Outcome: Met Problem: Actual or potential alteration in health Goal: Knowledge of Interdisciplinary Plan of Care Outcome: Partially Met Goal: Knowledge of Enviroment Outcome: Partially Met Problem: Cognitive-Perceptual Pattern - Impaired Goal: Improved thought processes Outcome: Partially Met Goal: Improved environmental perceptions Outcome: Partially Met Problem: Coping - Ineffective, Family Goal: Effective coping Outcome: Partially Met Goal: Knowledge of problem-solving techniques Outcome: Partially Met Goal: Knowledge of community resources Outcome: Partially Met Goal: Participation in family member care Outcome: Partially Met Problem: Coping- Ineffective Goal: Effective coping Outcome: Partially Met Problem: Health Maintenance - Impaired Goal: Knowledge of disease process Outcome: Partially Met Problem: Mood - Altered Goal: Appropriate social interaction Outcome: Partially Met Problem: Social Interaction - Impaired Goal: Appropriate social interaction Outcome: Partially Met Goal: Participation in group activities Outcome: Partially Met Problem: Plan for Discharge Goal: Knowledge of discharge plan and instructions Outcome: Partially Met Goal: Knowledge of medication management Outcome: Partially Met Goal: Knowledge of need for follow-up care Outcome: Partially Met Problem: Health Maintenance - Impaired Goal: Able to perform ADL Outcome: Completed Goal: Improved sleep pattern Outcome: Completed Goal: Nutrition intake to meet estimated needs Outcome: Completed Problem: Actual or potential alteration in health Goal: Absence of healthcare acquired conditions Outcome: Met Goal: Knowledge of Interdisciplinary Plan of Care Outcome: Partially Met Goal: Knowledge of Enviroment Outcome: Partially Met Problem: Pain Goal: Manage acute pain Outcome: Partially Met Goal: Manage chronic pain Outcome: Partially Met Goal: Reduced pain sensation Outcome: Partially Met Goal: Achievement of comfort function goal Outcome: Partially Met Problem: Cognitive-Perceptual Pattern - Impaired Goal: Improved thought processes Outcome: Partially Met Goal: Improved environmental perceptions Outcome: Partially Met Problem: Coping - Ineffective, Family Goal: Effective coping Outcome: Partially Met Goal: Knowledge of problem-solving techniques Outcome: Partially Met Goal: Knowledge of community resources Outcome: Partially Met Goal: Participation in family member care Outcome: Partially Met Problem: Coping- Ineffective Goal: Effective coping Outcome: Partially Met Problem: Mood - Altered Goal: Appropriate social interaction Outcome: Partially Met Problem: Social Interaction - Impaired Goal: Appropriate social interaction Outcome: Partially Met Goal: Participation in group activities Outcome: Partially Met Problem: Violence - Risk of, Self/Other-Directed Goal: Absence of violence Outcome: Met Problem: Plan for Discharge Goal: Knowledge of discharge plan and instructions Outcome: Partially Met Goal: Knowledge of medication management Outcome: Partially Met Goal: Knowledge of need for follow-up care Outcome: Partially Met Problem: Actual or potential alteration in health Goal: Absence of healthcare acquired conditions Outcome: Met Problem: Health Maintenance - Impaired Goal: Able to perform ADL Outcome: Met Goal: Improved sleep pattern Outcome: Met Goal: Nutrition intake to meet estimated needs Outcome: Met Problem: Violence - Risk of, Self/Other-Directed Goal: Absence of violence Outcome: Met Problem: Actual or potential alteration in health Goal: Knowledge of Interdisciplinary Plan of Care Outcome: Partially Met Goal: Knowledge of Enviroment Outcome: Partially Met Problem: Pain Goal: Manage acute pain Outcome: Partially Met Goal: Manage chronic pain Outcome: Partially Met Goal: Reduced pain sensation Outcome: Partially Met Goal: Achievement of comfort function goal Outcome: Partially Met Problem: Cognitive-Perceptual Pattern - Impaired Goal: Improved thought processes Outcome: Partially Met Goal: Improved environmental perceptions Outcome: Partially Met Problem: Coping - Ineffective, Family Goal: Effective coping Outcome: Partially Met Goal: Knowledge of problem-solving techniques Outcome: Partially Met Goal: Knowledge of community resources Outcome: Partially Met Goal: Participation in family member care Outcome: Partially Met Problem: Coping- Ineffective Goal: Effective coping Outcome: Partially Met Problem: Health Maintenance - Impaired Goal: Knowledge of disease process Outcome: Partially Met Problem: Mood - Altered Goal: Appropriate social interaction Outcome: Partially Met Problem: Social Interaction - Impaired Goal: Appropriate social interaction Outcome: Partially Met Goal: Participation in group activities Outcome: Partially Met Problem: Plan for Discharge Goal: Knowledge of discharge plan and instructions Outcome: Partially Met Goal: Knowledge of medication management Outcome: Partially Met Goal: Knowledge of need for follow-up care Outcome: Partially Met BEHAVIORAL HEALTH EVALUATION REASON FOR ADMISSION: I just go out, I needed a med change, my meds were giving me bad side effects. Pt shared she was having thoughts of harming herself and he infant son. STRESSORS: new baby, finances, my mental health COPING SKILLS: walking, driving, music readying , taking showers TYPICAL DAY: I shower, get dressed, do general cleaning, then I make sure I have one place that will get me out of the house eat day, I stay busy and try not to be alone, go to my parents house, spend time with my , watch TV. Shared she tries not to be alone because that is when I have the thoughts LEISURE INTERESTS: walking, driving, listen to music, read, take showers SUPPORTS: my parents and my STRENGTHS: being able to communicate and helping others PT'S GOAL: to get my meds sorted out ADDITIONAL INFORMATION: Pt was soft spoken and very tired, yawned repeatedly during eval, shared that she has not been sleeping very well. Voiced desire to get her meds changed so she can go home. GROUPS: Pt will be provided opportunities to participate and will be encouraged to attend the following groups; Goal Group, Life Skills, Recreational Therapy, Relaxation, Physical Conditioning, Wellness, to address: stress management, problem solving, coping skills, and planning for life after discharge. Problem: Actual or potential alteration in health Goal: Absence of healthcare acquired conditions Outcome: Met Goal: Knowledge of Interdisciplinary Plan of Care Outcome: Partially Met Goal: Knowledge of Enviroment Outcome: Partially Met Problem: Pain Goal: Manage acute pain Outcome: Partially Met Goal: Manage chronic pain Outcome: Partially Met Goal: Reduced pain sensation Outcome: Partially Met Goal: Achievement of comfort function goal Outcome: Partially Met Problem: Cognitive-Perceptual Pattern - Impaired Goal: Improved thought processes Outcome: Partially Met Goal: Improved environmental perceptions Outcome: Partially Met Problem: Coping - Ineffective, Family Goal: Effective coping Outcome: Partially Met Goal: Knowledge of problem-solving techniques Outcome: Partially Met Goal: Knowledge of community resources Outcome: Partially Met Goal: Participation in family member care Outcome: Partially Met Problem: Coping- Ineffective Goal: Effective coping Outcome: Partially Met Problem: Health Maintenance - Impaired Goal: Knowledge of disease process Outcome: Partially Met Goal: Able to perform ADL Outcome: Met Goal: Improved sleep pattern Outcome: Partially Met Goal: Nutrition intake to meet estimated needs Outcome: Partially Met Problem: Mood - Altered Goal: Appropriate social interaction Outcome: Partially Met Problem: Social Interaction - Impaired Goal: Appropriate social interaction Outcome: Partially Met Goal: Participation in group activities Outcome: Partially Met Problem: Plan for Discharge Goal: Knowledge of discharge plan and instructions Outcome: Partially Met Goal: Knowledge of medication management Outcome: Partially Met Goal: Knowledge of need for follow-up care Outcome: Partially Met Behavioral Health Initial Treatment Plan Date: 02/23/2022 Time: 6:44 PM Patient Name: Ana Hernandez Date of : 2000 Sex: Female Admit Date/Time: 02/23/2022 3:26 PM Patient Active Problem List Diagnosis Date Noted Post traumatic stress disorder (PTSD) 02/16/2022 Bipolar II disorder major depressive with onset (HCC) 02/15/2022 Diagnosis [place] I: Bipolar II and PTSD [place] II: No diagnosis [place] III: Patient Active Problem List Diagnosis Date Noted Post traumatic stress disorder (PTSD) 02/16/2022 Bipolar II disorder major depressive with onset (HCC) 02/15/2022 [place] IV: other psychosocial or environmental problems [place] V: 41-50 serious symptoms Reason for Hospitalization Reason for Hospitalization: Suicidal ideation, Homicidal ideation Expected Discharge Date: 02/28/2022 ELOS: 3-5 days Precautions Precautions: Suicide Patient Presenting Issues: Patient's Primary Presenting Issue Patient's Primary Presenting Issue: Suicidal Suicidal Symptoms: Ideation Suicidal Goals: elimination of suicidal thoughts Days To Improvement Of Goal: 3-5 Suicidal Treatment Interventions: Medication management/evaluation, Medication education, Group psychoeduction, Handouts psychoeducation, Individual psychoeducation, Family education/meeting, Develop personal safety plan Status Of Goal: Unchanged Patient's Secondary Presenting Issue Patient's Secondary Presenting Issue: Mood instablilty Mood Instability Symptoms: Depression, Daniella, Anxiety Mood Instability Treatment Goals: stabilize mood to WNL Days To Improvement Of Goal: 3-5 Mood Instability Interventions: Medication management/evaluation, Medication education, Group psychoeduction, Handouts psychoeducation, Individual psychoeducation, Famiily education/meeting Status Of Goal: Unchanged Precautions Precautions: Suicide Patient Strengths Patient Strengths: Basic self-care skills, Employment, Family/friends, Financial stability, Housing, Intellectual abilities, Insight, Interpersonal skills, Mental health services, Motivation to change, Physical health, Spiritual beliefs Patient Limitations Patient Limitations: Low self esteem Discharge Needs Anticipated Facility Type: Intensive outpatient program, Psychiatric aftercare, Community mental health Criteria For Discharge Criteria For Discharge: Maximum benefit obtained, Goals met Additional Comments: Physician, Registered Nurse, Retail Route Supervisor, Adjunct Therapist included in treatment team discussion. Treatment team members present Belgica Strange MD Patient Signature Date Patient's Response To Treatment Plan: Physician Signature Date Associated Problem(s): Bipolar II disorder major depressive with onset (HCC) A: Ana Hastings , as she prefers to be called, was feeling well when she left the unit on Saturday. She was hopeful and optimistic. She then developed problems falling asleep and staying asleep. She became more irritable. Her new baby was screaming and crying and she had thoughts about hurting him and then immediately had thoughts about suicide. She states that the thoughts were so strong that they were like voices not her own. She spent the night at the hospital and feels fine again today except for the worry and guilt about her mental disorder. 02-26-2022: Darling states that she is thinking more clearly than she has in a long time and she attributes that to the addition of the Abilify. She states she feels good. No hallucinations. No suicidal or homicidal thinking. She has enlisted the help of her and her parents so she can sleep at night and so she won't be alone with the baby. She states that she has social support and professional help available to her at all times. She understands that she may have some steep ups and downs and she is more than willing to reach out when she needs help. Plan: Discharge to outpatient follow-up Problem: Violence - Risk of, Self/Other-Directed Goal: Absence of violence Outcome: Met Problem: Actual or potential alteration in health Goal: Absence of healthcare acquired conditions Outcome: Not Met Goal: Knowledge of Interdisciplinary Plan of Care Outcome: Not Met Problem: Pain Goal: Manage acute pain Outcome: Not Met Goal: Manage chronic pain Outcome: Not Met Goal: Reduced pain sensation Outcome: Not Met Goal: Achievement of comfort function goal Outcome: Not Met Problem: Cognitive-Perceptual Pattern - Impaired Goal: Improved thought processes Outcome: Not Met Goal: Improved environmental perceptions Outcome: Not Met Problem: Coping - Ineffective, Family Goal: Effective coping Outcome: Not Met Goal: Knowledge of problem-solving techniques Outcome: Not Met Goal: Knowledge of community resources Outcome: Not Met Goal: Participation in family member care Outcome: Not Met Problem: Coping- Ineffective Goal: Effective coping Outcome: Not Met Problem: Health Maintenance - Impaired Goal: Knowledge of disease process Outcome: Not Met Goal: Improved sleep pattern Outcome: Not Met Goal: Nutrition intake to meet estimated needs Outcome: Not Met Problem: Mood - Altered Goal: Appropriate social interaction Outcome: Not Met Problem: Social Interaction - Impaired Goal: Appropriate social interaction Outcome: Not Met Goal: Participation in group activities Outcome: Not Met Problem: Plan for Discharge Goal: Knowledge of discharge plan and instructions Outcome: Not Addressed Goal: Knowledge of medication management Outcome: Not Addressed Goal: Knowledge of need for follow-up care Outcome: Not Addressed Problem: Actual or potential alteration in health Goal: Knowledge of Enviroment Outcome: Partially Met Problem: Health Maintenance - Impaired Goal: Able to perform ADL Outcome: Partially Met documented in this encounter [facility] 02-26-2022 History of Present illness Narrative Discussed case with attending physician today. Dr. Strange is to discharge patient home today. Patient to follow-up with Dr. Strange and [facility] ([place] - will fax AVS to their agency once completed. Safety Plan completed and reviewed. Patient reports feeling good and calm today and denies any SI, HI, or hallucinations. Patient feels ready for discharge. Family to transport patient home. Case closed. LAMBETR printed off the initial treatment plan as completed by Dr. Strange and presented it to the patient for her review and signature. Patient reviewed the treatment plan and signed. LAMBERT placed the treatment plan in patient's chart. Treatment plan update is due 02/26/22. Preform Machine Operator will continue to follow patient and assist with discharge planning. STATEMENT SERVICES REPRESENTATIVE reviewed patient chart. Patient signed the voluntary psych consent. Signed releases of information are present in chart for the following: - Dex Hernandez, and Eve Moreau - [facility]. STATEMENT SERVICES REPRESENTATIVE then met with patient in common area to introduce STATEMENT SERVICES REPRESENTATIVE, explain psych social worker role in patient's treatment, and to initiate the discharge planning process. Patient then reviewed basic psychosocial information with STATEMENT SERVICES REPRESENTATIVE. (See psychosocial assessment note by LIZZY Esquivel-S dated 02/16/2022 at 11:11 AM for more detailed information.) Patient affirmed that current reason for hospitalization was increased depression with suicidal ideation. Prior hospitalizations: 1x prior at [facility]. Patient lives with her and son, denies any access to weapons or abuse at home and feels safe returning upon discharge. Patient follows in the community with her therapist at [facility] and Dr. Strange - Anna signed and on chart. She is also finishing up an IOP program at [facility]. STATEMENT SERVICES REPRESENTATIVE will coordinate after care and update the AVS. STATEMENT SERVICES REPRESENTATIVE then presented patient with a safety plan and explained the purpose for the plan. Patient worked cooperatively with STATEMENT SERVICES REPRESENTATIVE to complete the safety plan. Safety plan updated on AVS. Finally, STATEMENT SERVICES REPRESENTATIVE asked patient if there was anything else this worker could do at this time. Patient denied any other needs for discharge at this time. Patient was pleasant and cooperative throughout the entirety of this interaction. Case discussed with Dr. Strange and Amena Shi RN. No other immediate discharge needs identified at this time. STATEMENT SERVICES REPRESENTATIVE will continue to follow patient and assist with discharge process. Treatment plan will be reviewed with patient when it becomes available. [id number] Goal Group: Pt out in TV lounge with peers when approached to attend group. PT voiced that she would attend and was prepared with goal sheet in hand. PT completed goal sheet with good attention and focus shown. Pt bright with affect, pleasant in nature and involved in group process. PT cited that she had met goal from previous day and was feeling forgiving this date do to something I read this morning. Pt went on to share a quote from a book that she had been reading and the quote focused on forgiveness. PT shared that she had been feeling guilty and the quote helped her to see that she needed to forgive herself in order to heal. PT set goal for the day of forgive myself because it is important for my mental health and I truly want to get better . Steps set by pt were measurable and related well to goal. [id number] Life Skills: PT presented with focus of group and activity related to balancing emotions. PT willing to work with group to complete work sheet to learn 8 positive ways to better manage emotions. PT highly involved in the group and in processing. Pt taking notes throughout group and sharing how she would use the skills to help self and family when at home. Affect bright and pleasant, pt appreciation for time spent and information learned. 0731 [facility] Pt advises she didn't sleep very well when asked. Vitals obtained, pt denies pain at this time. Mask offered for covid precautions, education provided, pt declines. Denies needs. 0802 Pt at nurses' station. Pt casually dressed. Eye contact good. Pt calm, friendly with interaction. Affect flat, depressed mood. Pt denies anxiety. Pt rates current depression a 3/10 . Pt denies suicidal and homicidal ideations. Pt denies auditory and visual hallucinations. Pt compliant taking scheduled medications, mouth check completed. [place] [facility] [place] and watch television with female peer. Denies needs. 0935 Pt sitting in [facility] [place] television. Pt calm, social with peers. 0940 Pt attending group 1110 Pt sitting quietly in [facility] [place] television. Pt calm, appropriate. 1158 Dr. Strange making rounds, meeting with pt 1302 Pt at nurses' station. Pt requesting prn Hydroxyzine po for anxiety she rates 6/10 . Pt states I have a little anxiety about going home. I don't know why . Pt advises she feels good about going home when asked, stating I want to go home, I'm ready . 1350 Reviewed discharge instructions with pt 1405 Pt discharged off unit. Ambulatory, wearing mask. Pt in possession of all personal property, including safe bag items, and discharge instructions. Pt accompanied to entrance, family member waiting to provide transportation home in personal vehicle. 2330 Patient is resting quietly in bed, lying in prone position. Respirations even and unlabored. 0130 Two blankets given as requested. Denies discomfort. 0230 Patient is resting quietly in bed. 0400 Patient continues resting quietly in bed. 0530 Patient is up in hr room. 0542 Medicated with Ibuprofen 600 mg as requested. For complaints of abdominal pain rated pain as (6) Up and taking a shower. 0600 Patient has rested quietly in bed approximately 7.5 hours to present. Will continue observing patient this shift. Psychiatry Progress Note Patient Name: Ana Hernandez Admit Date: [id number] MR #: [id number] : 2000 Perpetual Assessment Ana Hernandez is a 22 y.o. female was seen individually, case discussed with nursing staff, medical records were reviewed. Patient stated that she her sleep pattern is improving and is feeling less tense, anxious and had been able to focus, concentrate better. Patient is looking forward to get involved in taking care of her 3 weeks old son. Diagnosis & Plan/Recommendations Supportive therapy Pharmacological treatment Group therapy, activities therapy PRINCIPAL DIAGNOSIS: Bipolar II disorder major depressive with onset (HCC) * Bipolar II disorder major depressive with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 loss/weight gain Physical Examination: Vital Signs: BP 111/73 Pulse 60 Temp 98.2 F (36.8 C) (Oral) Resp 16 Ht 4' 8 Wt 75.8 kg (167 lb) LMP 02/01/2022 SpO2 97% BMI 37.44 kg/m Mental Status Evaluation: General Appearance & Behavior: age appropriate, pleasant, cooperative, good eye contact Grooming & Hygiene: hospital gown Psychomotor Activity: no psychomotor abnormalities or muscle atrophy noted Gait & Station stable gait and ability to rise from bed/chair without assistance Speech: normal rate, rhythym, volume, and spontaneity Flow of Thought: linear and goal directed Thought Associations: Intact Content of Thought: No evidence of suicidal ideations/homicidal ideations/psychosis Mood: stressed out Affect: tearful Insight: good Judgment: good Orientation: alert and oriented to person, place, time, and circumstances Memory: intact recent and remote Attention: intact Concentration: intact Language: fluent Fund of Knowledge: estimated average intelligence Laboratory and Additional Data Reviewed: Laboratory 02/23/22 6:27 PM Radiology 02/23/22 6:27 PM Cardiology 02/23/22 6:27 PM Medications 02/23/22 6:27 PM Transcriptions 02/23/22 6:27 PM Treatment options and alternatives reviewed with patient. Risks, benefits, side effects of all psychiatric medications discussed with patient and informed consent obtained. All questions were answered. Belgica Strange MD 02/23/2022 6:27 PM [facility] 02-23-2022 History and physical note Psychiatry History and Physical Patient Name: Ana Hernandez MR #: [id number] : 2000 Admit Date: [id number] Primary Care Provider: No primary care provider on file. Assessment Ana Hernandez is a 22 y.o. female presenting with suicidal thinking in response to thoughts about harming her baby in the context of mood instability Diagnosis & Plan/Recommendations PRINCIPAL DIAGNOSIS: Bipolar II disorder major depressive with onset (HCC) Falls Of Rough I: Bipolar II Falls Of Rough II: Deferred Falls Of [place] III: see problem list. 3 weeks post Falls Of Rough IV: Other psychosocial and environmental problems Falls Of Rough V: 41-50: Serious symptoms OR any serious impairment in social, occupational, or school functioning * Bipolar II disorder major depressive with onset (HCC) Assessment & Plan A: Ana Hastings , as she prefers to be called, was feeling well when she left the unit on Saturday. She was hopeful and optimistic. She then developed problems falling asleep and staying asleep. She became more irritable. Her new baby was screaming and crying and she had thoughts about hurting him and then immediately had thoughts about suicide. She states that the thoughts were so strong that they were like voices not her own. She spent the night at the hospital and feels fine again today except for the worry and guilt about her mental disorder. Plan: Admit for patient safety and stabilization Suicide precautions Increase lamotrigine to 100 mg at bedtime. Continue Prozac 20 mg. Add Abilify 5 mg PRN medications for anxiety, insomnia and agitation Individual and group therapies Internal medicine consult Family meeting SW consult for collateral information and discharge planning Comorbid issues impacting my care plan include post state. Chief Complaint: I don't know what happened. I just started having thoughts that scared me to . History of Present Illness: Ana Hernandez is a 22 y.o. female with a history of bipolar II type mood disturbance and a significant history of trauma. See previous admission last week for details of her history. She has managed her symptoms quite well in therapy and with medication management until the of her first son 3 weeks ago. Since then, her mood has been very depressed. She feels useless and hopeless and like she doesn't deserve to be here. At her first presentation with suicidal thinking, she stopped breast feeding so she could take medications to stabilize her mood. She switched from sertraline back to fluoxetine and Lamictal which had been helpful medications in the past. She had a good initial response and was eager to get home to her baby after 3 days. She also resumed her IOP treatment in [place], where she lives. She continued to feel well until she developed more trouble sleeping. Then she suddenly had strong thoughts/ voices about harming her baby and killing herself.After sleeping in [facility] ED over night, she feels fine again today except for the guilt and anxiety about her mental illness. She has never had psychotic symptoms prior to that one event. No substance abuse. Past Psychiatric History Past diagnoses: depression, PTSD Past medications: fluoxetine, sertraline, lamotrigine Past hospitalizations: one Past suicide attempts: none Past self injurious behavior: none Outpatient linkage: has providers in [place] The patient otherwise denies any previous psychiatric problems or diagnoses, inpatient or outpatient mental health care, suicide attempts, use of psychotropic medications, or any self injurious behavior. Family Psychiatric History Adopted at . Her bio mother was an addict The patient otherwise denies any family history of mental illness or treatment, psychiatric hospitalizations, suicide attempts, or substance problems. 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 Education: high school Sexual orientation: heterosexual Marital Status: Children: one Legal History: none Trauma History: significant childhood trauma History: none Episcopal: none Access to firearms: no Substance use History Nicotine:no Alcohol: no Illicit substances: no Rehab:no Patient is a Never Tobacco User Tobacco cessation medication not indicated Social History Tobacco Use Smoking status: Never Smoker Smokeless tobacco: Never Used Vaping Use Vaping Use: Never used Substance and Sexual Activity Alcohol use: Never Drug use: Never Sexual activity: Yes Partners: Male control/protection: I.U.D. Comment: will have IUD after medically cleared from having baby Social History Social History Narrative Not on file Medical History: I have reviewed the patient's other history as below: Past Medical History: Diagnosis Date Asthma Diabetes mellitus (HCC) Past Surgical History: Procedure Laterality Date APPENDECTOMY SECTION, CLASSIC Family History: Family History Adopted: Yes Family history unknown: Yes Allergy Information: I have reviewed the patient's allergies as below: Penicillins Home Medications: Outpatient Medications as of 02/23/2022 Medication Sig albuterol 90 mcg/actuation inhaler Inhale 2 (two) puffs every 6 (six) hours as needed for wheezing or shortness of breath . FLUoxetine (PROZAC) 20 MG capsule Take 1 (one) capsule (20 mg total) by mouth daily Start: 02/20/22. lamoTRIgine (LAMICTAL) 25 MG tablet Take 1 (one) tablet (25 mg total) by mouth daily Start: 02/20/22. 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 Review of Systems: Constitutional: Denies fever, chills, diaphoresis, malaise Eyes: Denies blurred vision, double vision ENT: Denies nasal congestion, sore throat Neurological: Denies headache, photophobia, weakness, numbness CVS: Denies chest pain or palpitations Respiratory: Denies dyspnea or cough Musculoskeletal: Denies joint pain or muscle aches GI: Denies nausea, vomiting, constipation, or diarrhea : Denies urinary urgency, frequency, or burning Integumentary: Denies itching or rash Endocrine: Denies heat/cold intolerance or weight loss/weight gain Physical Examination: Vital Signs: BP 111/73 Pulse 60 Temp 98.2 F (36.8 C) (Oral) Resp 16 Ht 4' 8 Wt 75.8 kg (167 lb) LMP 02/01/2022 SpO2 97% BMI 37.44 kg/m Mental Status Evaluation: General Appearance & Behavior: age appropriate, pleasant, cooperative, good eye contact Grooming & Hygiene: hospital gown Psychomotor Activity: no psychomotor abnormalities or muscle atrophy noted Gait & Station stable gait and ability to rise from bed/chair without assistance Speech: normal rate, rhythym, volume, and spontaneity Flow of Thought: linear and goal directed Thought Associations: Intact Content of Thought: No evidence of suicidal ideations/homicidal ideations/psychosis Mood: stressed out Affect: tearful Insight: good Judgment: good Orientation: alert and oriented to person, place, time, and circumstances Memory: intact recent and remote Attention: intact Concentration: intact Language: fluent Fund of Knowledge: estimated average intelligence Laboratory and Additional Data Reviewed: Laboratory 02/23/22 6:27 PM Radiology 02/23/22 6:27 PM Cardiology 02/23/22 6:27 PM Medications 02/23/22 6:27 PM Transcriptions 02/23/22 6:27 PM Treatment options and alternatives reviewed with patient. Risks, benefits, side effects of all psychiatric medications discussed with patient and informed consent obtained. All questions were answered. Belgica Strange MD 02/23/2022 6:27 PM documented in this encounter [facility] 02-23-2022 Evaluation + Plan note Associated Problem(s): Bipolar II disorder major depressive with onset (HCC) A: Ana Hastings , as she prefers to be called, was feeling well when she left the unit on Saturday. She was hopeful and optimistic. She then developed problems falling asleep and staying asleep. She became more irritable. Her new baby was screaming and crying and she had thoughts about hurting him and then immediately had thoughts about suicide. She states that the thoughts were so strong that they were like voices not her own. She spent the night at the hospital and feels fine again today except for the worry and guilt about her mental disorder. 02-26-2022: Darling states that she is thinking more clearly than she has in a long time and she attributes that to the addition of the Abilify. She states she feels good. No hallucinations. No suicidal or homicidal thinking. She has enlisted the help of her and her parents so she can sleep at night and so she won't be alone with the baby. She states that she has social support and professional help available to her at all times. She understands that she may have some steep ups and downs and she is more than willing to reach out when she needs help. Plan: Discharge to outpatient follow-up [facility] 02-23-2022 Note Formatting of this n ote might be different from the original. Problem: Violence - Risk of, Self/Other-Directed Goal: Absence of violence Outcome: Met Problem: Actual or potential alteration in health Goal: Absence of healthcare acquired conditions Outcome: Not Met Goal: Knowledge of Interdisciplinary Plan of Care Outcome: Not Met Problem: Pain Goal: Manage acute pain Outcome: Not Met Goal: Manage chronic pain Outcome: Not Met Goal: Reduced pain sensation Outcome: Not Met Goal: Achievement of comfort function goal Outcome: Not Met Problem: Cognitive-Perceptual Pattern - Impaired Goal: Improved thought processes Outcome: Not Met Goal: Improved environmental perceptions Outcome: Not Met Problem: Coping - Ineffective, Family Goal: Effective coping Outcome: Not Met Goal: Knowledge of problem-solving techniques Outcome: Not Met Goal: Knowledge of community resources Outcome: Not Met Goal: Participation in family member care Outcome: Not Met Problem: Coping- Ineffective Goal: Effective coping Outcome: Not Met Problem: Health Maintenance - Impaired Goal: Knowledge of disease process Outcome: Not Met Goal: Improved sleep pattern Outcome: Not Met Goal: Nutrition intake to meet estimated needs Outcome: Not Met Problem: Mood - Altered Goal: Appropriate social interaction Outcome: Not Met Problem: Social Interaction - Impaired Goal: Appropriate social interaction Outcome: Not Met Goal: Participation in group activities Outcome: Not Met Problem: Plan for Discharge Goal: Knowledge of discharge plan and instructions Outcome: Not Addressed Goal: Knowledge of medication management Outcome: Not Addressed Goal: Knowledge of need for follow-up care Outcome: Not Addressed Problem: Actual or potential alteration in health Goal: Knowledge of Enviroment Outcome: Partially Met Problem: Health Maintenance - Impaired Goal: Able to perform ADL Outcome: Partially Met [facility] Subjective Comfortable with oral Motrin & Tylenol. Ambulant, voiding. good pain control Lochia small. Baby is nursing well. Wants to shower. Objective Looks very well. Independent in room. Moving easily. CVS: RRR Lungs: CTA B Abdomen: Soft, uterus firm at U. Dressing clean and dry Extremities: Nontender with 1+ edema VITALS [id number](kg) 01/30 08:2736.8124/[id number]/28 80.0 01/30 06:00--125/[id number] 01/30 04:1237.1117/[id number] 01/30 02:0736.8117/[id number] 01/30 00:3136.8132/[id number] 24 Hr Tmax: 37.1 at 01/30 04:12 36 Hr Tmax: 37.1 at 01/30 04:12 Vital Signs are the last 5 in the past 48 hours. Weights display the last 5 within 7 days. Initial Wt: 01/29 80.0 kg 176 lb Current Wt: 01/29 80.0 kg 176 lb LABS 01/30 05:19 WBC: 9.20 Hgb: 8.8 L Hct: 26.9 L Platelet: 213 Neutrophil %: 75.6 01/29 07:33 WBC: 8.20 Hgb: 10.4 L Hct: 30.4 L Platelet: 238 Neutrophil %: 80.1 H Medications Active Inpt Meds: .PharmacyCommunication (Pharmacy See ORDER COMMENTS) Start: 01/29/22 9:35:00 EST, Daily, 24 hour(s), Stop: 01/30/22 9:00:00 EST acetaminophen (Tylenol) Start: 01/29/22 15:00:00 EST, Dose = 650 mg, = 2 tab(s), Oral, q6h, 0 clindamycin (Cleocin) Start: 01/29/22 17:00:00 EST, Dose = 900 mg, = 50 mL, IV Piggyback, q8h, 3 dose(s), Stop: 01/30/22 9:00:00 EST, Rate: 100 mL/hr, Infuse over: 30 minute(s), 0 ibuprofen (Motrin) Start: 01/29/22 12:00:00 EST, Dose = 600 mg, = 1 tab(s), Oral, q6h, 0 tetanus/diphth/pertuss (Tdap) adult/adol (Boostrix (Tdap)) Start: 01/29/22 10:00:00 EST, Dose = 0.5 mL, Susp, Intramuscular, Vaccine Active PRN Meds: Lactated Ringers Infusion (LR 500 mL Bolus) Start: 01/29/22 7:29:00 EST, Dose = 500 mL, Soln, IV Bolus, AsDirected, PRN, Other (see order comments), Rate: 500 mL/hr, hour(s) RHo (D) immune globulin (Rhophylac) Start: 01/29/22 9:35:00 EST, Dose = 300 mcg, = 2 mL, Intramuscular, AsDirected, PRN, if Rh factor neg per policy, 1 dose(s), Stop: Limited # of times acetaminophen-oxyCODONE (Percocet 325/5) Start: 01/30/22 9:35:00 EST, Dose = 1 tab(s), Tab, Oral, q4h, PRN, Pain, scale 4-6 acetaminophen-oxyCODONE (Percocet 325/5) Start: 01/30/22 9:35:00 EST, Dose = 2 tab(s), Tab, Oral, q4h, PRN, Pain, scale 7-10 acetaminophen Start: 01/29/22 9:01:00 EST, Dose = 650 mg, = 2 tab(s), Oral, q4h, PRN, Pain, scale 1-3 benzocaine topical (Dermoplast topical spray) Start: 01/29/22 9:35:00 EST, Dose = 1 spray(s), [place], Perineum, q1h, PRN, Other (see order comments) carboprost (Hemabate) Start: 01/29/22 7:29:00 EST, Dose = 250 mcg, = 1 mL, Intramuscular, Once, PRN, Other (see order comments) citric acid-sodium citrate (Bicitra) Start: 01/29/22 7:29:00 EST, Dose = 30 mL, Soln, Oral, AsDirected, PRN, Gastric Upset docusate (Colace) Start: 01/29/22 9:35:00 EST, Dose = 100 mg, = 1 cap(s), Oral, BID, PRN, Constipation glycerin-witch pedro topical (glycerin-witch pedro 50% topical pad) Start: 01/29/22 9:35:00 EST, Dose = 1 [place], Pad, Topical, AsDirected, PRN, Hemorrhoids hydrocortisone topical (Anusol-HC 25 mg rectal suppository) Start: 01/29/22 9:35:00 EST, Dose = 25 mg, = 1 supp, Rectal, BID, PRN, hemorrhoidal discomfort hydrocortisone-pramoxine topical (Analpram-HC 2.5%-1% rectal cream) Start: 01/29/22 9:35:00 EST, Dose = 1 [place], Cream, Perineum, q1h, PRN, hemorrhoidal or perineal discomfort lanolin topical (Lansinoh for Breast Feeding Mothers) Start: 01/29/22 9:35:00 EST, 7 gram(s), Dose = 1 EA, Topical, AsDirected, PRN, Other (see order comments), Apply to: nipple area, Ointment lidocaine (Xylocaine HCl 1% injectable solution) Start: 01/29/22 7:29:00 EST, Dose = 20 mg, = 2 mL, Perineum, AsDirected, PRN, to perineal sutures, 1 dose(s), Stop: Limited # of times methylergonovine (Methergine) Start: 01/29/22 7:29:00 EST, Dose = 0.2 mg, = 1 mL, Intramuscular, Once, PRN, Other (see order comments) miSOPROStol (Cytotec) Start: 01/29/22 7:29:00 EST, Dose = 1,000 mcg, = 5 tab(s), Rectal, Once, PRN, Other (see order comments), 0 ondansetron (Zofran) Start: 01/29/22 7:29:00 EST, Dose = 4 mg, = 2 mL, IV Push, q4h, PRN, Nausea ondansetron (Zofran) Start: 01/29/22 9:35:00 EST, Dose = 4 mg, = 1 tab(s), Oral, q8h, PRN, Nausea, 0 ondansetron (Zofran) Start: 01/29/22 9:35:00 EST, Dose = 4 mg, = 2 mL, IV Push, q8h, PRN, Nausea oxytocin (Pitocin) Start: 01/29/22 7:29:00 EST, Dose = 20 unit(s), = 2 mL, Intramuscular, Once, PRN, Other (see order comments) simethicone (Mylicon) Start: 01/29/22 9:35:00 EST, Dose = 80 mg, = 1 tab(s), Chewed, TID, PRN, Gas terbutaline (Brethine) Start: 01/29/22 7:29:00 EST, Dose = 0.25 mg, = 0.25 mL, Subcutaneous, AsDirected, PRN, Other (see order comments) zolpidem (Ambien) Start: 01/29/22 9:35:00 EST, Dose = 5 mg, = 1 tab(s), Oral, qHS, PRN, Sleep One Time Meds: (Completed) acetaminophen (Ofirmev IVPB (ANES)) IV Piggyback, Once, Stop: 01/29/22 9:33:00 EST (Completed) bupivacaine (Marcaine Spinal (ANES)) Soln, Intrathecal, Once, Stop: 01/29/22 9:08:00 EST (Completed) clindamycin Start: 01/29/22 8:00:00 EST, Dose = 600 mg, = 50 mL, IV Piggyback, Once, Stop: 01/29/22 8:00:00 EST, Rate: 100 mL/hr, Infuse over: 30 minute(s) (Completed) dexamethasone (Decadron (ANES)) IV Push, Once, Stop: 01/29/22 9:18:00 EST (Completed) ePHEDrine (ePHEDrine (ANES)) IV Push, Once, Stop: 01/29/22 9:08:00 EST (Completed) gentamicin Start: 01/29/22 8:15:00 EST, Dose = 400 mg, = 10 mL, IV Piggyback, Once, Stop: 01/29/22 8:15:00 EST, Rate: 120 mL/hr, Infuse over: 30 minute(s), EXTENDED DOSING INTERVAL, 0 (Completed) ketorolac (Toradol (ANES)) IV Push, Once, Stop: 01/29/22 9:33:00 EST (Completed) morphine (Duramorph PF) Start: 01/29/22 9:15:00 EST, Dose = 0.15 mg, = 0.15 mL, Intrathecal, Once, Stop: 01/29/22 9:15:00 EST (Completed) ondansetron (Zofran (ANES)) IV Push, Once, Stop: 01/29/22 9:23:00 EST (Completed) oxytocin (Pitocin (ANES)) Intravenous, Once, Stop: 01/29/22 9:13:00 EST Active IV Meds: Lactated Ringers Infusion 1,000 mL (LR 1,000 mL) Start: 01/29/22 7:29:00 EST, Rate: 125 mL/hr oxytocin 20 unit(s) + Lactated Ringers Infusion 1,000 mL (Oxytocin for IV (mL/hr) 20 unit(s) + LR 1,000 mL) Start: 01/29/22 7:29:00 EST, Rate: 999 mL/hr Problems (18) ADD - Attention deficit disorder (412544468) Anxiety (36655918) Asthma (314940139) Chest tightness (028565801) Decreased vitamin D (694834558) Depression (877124096) Diabetes mellitus type 2 (405725450) Dizziness (6730355349) H/O: migraine (602050633) Hyperemesis gravidarum (41452750) Insomnia (972001632) Left ear impacted cerumen (03144042) Migraines (57033573) Nausea (4778510112) (915011312) S/P section (115129690) Sinus arrhythmia (881663848) Traumatic brain injury (886792) ASSESSMENT/PLAN: POD #1 after primary elective for clinically inadequate pelvis Intractable Nausea antepartum- resolved Anemia - antepartum and post-op. well adjusted. CT support. May go home this pm if desired. Extracted from: Title:Clinical Document Author:SUMMER ROSA MD Date:01/29/22 [facility]ERBY ADMISSION HISTORY AN D PHYSICIAL CHIEF COMPLAINT: 1 para 0 with uncomplicated 39-week but with clinically unfavorable pelvis. Patient elects for primary section versus trial of labor. HISTORY OF PRESENT ILLNESS: Uncomplicated REVIEW OF SYSTEMS: No significant positives ACTIVE PROBLEMS: (18) ADD - Attention deficit disorder (662858650) Anxiety (50665461) Asthma (548443842) Chest tightness (348403955) Decreased vitamin D (611687368) Depression (514490865) Diabetes mellitus type 2 (945346360) Dizziness (9946970187) H/O: migraine (673029147) Hyperemesis gravidarum (53382890) Insomnia (652768787) Left ear impacted cerumen (16884011) Migraines (77310874) Nausea (7743837186) (858351601) S/P section (533083054) Sinus arrhythmia (539949705) Traumatic brain injury (453783) MEDICATIONS: Active Inpt Meds: .PharmacyCommunication (Pharmacy See ORDER COMMENTS) Start: 01/29/22 9:35:00 EST, Daily, 24 hour(s), Stop: 01/30/22 9:00:00 EST acetaminophen (Tylenol) Start: 01/29/22 15:00:00 EST, Dose = 650 mg, = 2 tab(s), Oral, q6h, 0 clindamycin (Cleocin) Start: 01/29/22 17:00:00 EST, Dose = 900 mg, = 50 mL, IV Piggyback, q8h, 3 dose(s), Stop: 01/30/22 9:00:00 EST, Rate: 100 mL/hr, Infuse over: 30 minute(s), 0 ibuprofen (Motrin) Start: 01/29/22 12:00:00 EST, Dose = 600 mg, = 1 tab(s), Oral, q6h, 0 tetanus/diphth/pertuss (Tdap) adult/adol (Boostrix (Tdap)) Start: 01/29/22 10:00:00 EST, Dose = 0.5 mL, Susp, Intramuscular, Vaccine Active PRN Meds: Lactated Ringers Infusion (LR 500 mL Bolus) Start: 01/29/22 7:29:00 EST, Dose = 500 mL, Soln, IV Bolus, AsDirected, PRN, Other (see order comments), Rate: 500 mL/hr, hour(s) RHo (D) immune globulin (Rhophylac) Start: 01/29/22 9:35:00 EST, Dose = 300 mcg, = 2 mL, Intramuscular, AsDirected, PRN, if Rh factor neg per policy, 1 dose(s), Stop: Limited # of times acetaminophen-oxyCODONE (Percocet 325/5) Start: 01/30/22 9:35:00 EST, Dose = 1 tab(s), Tab, Oral, q4h, PRN, Pain, scale 4-6 acetaminophen-oxyCODONE (Percocet 325/5) Start: 01/30/22 9:35:00 EST, Dose = 2 tab(s), Tab, Oral, q4h, PRN, Pain, scale 7-10 acetaminophen Start: 01/29/22 9:01:00 EST, Dose = 650 mg, = 2 tab(s), Oral, q4h, PRN, Pain, scale 1-3 benzocaine topical (Dermoplast topical spray) Start: 01/29/22 9:35:00 EST, Dose = 1 spray(s), [place], Perineum, q1h, PRN, Other (see order comments) carboprost (Hemabate) Start: 01/29/22 7:29:00 EST, Dose = 250 mcg, = 1 mL, Intramuscular, Once, PRN, Other (see order comments) citric acid-sodium citrate (Bicitra) Start: 01/29/22 7:29:00 EST, Dose = 30 mL, Soln, Oral, AsDirected, PRN, Gastric Upset diphenhydrAMINE (Benadryl) Start: 01/29/22 9:01:00 EST, Dose = 12.5 mg, = 0.25 mL, IV Push, q6h, PRN, Itching, 20 hour(s), Stop: 01/30/22 5:00:00 EST docusate (Colace) Start: 01/29/22 9:35:00 EST, Dose = 100 mg, = 1 cap(s), Oral, BID, PRN, Constipation glycerin-witch pedro topical (glycerin-witch pedro 50% topical pad) Start: 01/29/22 9:35:00 EST, Dose = 1 [place], Pad, Topical, AsDirected, PRN, Hemorrhoids hydrocortisone topical (Anusol-HC 25 mg rectal suppository) Start: 01/29/22 9:35:00 EST, Dose = 25 mg, = 1 supp, Rectal, BID, PRN, hemorrhoidal discomfort hydrocortisone-pramoxine topical (Analpram-HC 2.5%-1% rectal cream) Start: 01/29/22 9:35:00 EST, Dose = 1 otrega, Cream, Perineum, q1h, PRN, hemorrhoidal or perineal discomfort lanolin topical (Lansinoh for Breast Feeding Mothers) Start: 01/29/22 9:35:00 EST, 7 gram(s), Dose = 1 EA, Topical, AsDirected, PRN, Other (see order comments), Apply to: nipple area, Ointment lidocaine (Xylocaine HCl 1% injectable solution) Start: 01/29/22 7:29:00 EST, Dose = 20 mg, = 2 mL, Perineum, AsDirected, PRN, to perineal sutures, 1 dose(s), Stop: Limited # of times methylergonovine (Methergine) Start: 01/29/22 7:29:00 EST, Dose = 0.2 mg, = 1 mL, Intramuscular, Once, PRN, Other (see order comments) miSOPROStol (Cytotec) Start: 01/29/22 7:29:00 EST, Dose = 1,000 mcg, = 5 tab(s), Rectal, Once, PRN, Other (see order comments), 0 morphine Start: 01/29/22 9:01:00 EST, Dose = 2 mg, = 0.5 mL, IV Push, q1h, PRN, Pain, breakthrough, 20 hour(s), Stop: 01/30/22 5:00:00 EST nalbuphine (Nubain) Start: 01/29/22 9:01:00 EST, Dose = 5 mg, = 0.5 mL, IV Push, q2h, PRN, Itching, 20 hour(s), Stop: 01/30/22 5:00:00 EST naloxone (Narcan) Start: 01/29/22 9:01:00 EST, Dose = 0.1 mg, = 0.25 mL, IV Push, AsDirected, PRN, Control symptoms, 20 hour(s), Stop: 01/30/22 5:00:00 EST, If respiratory rate is < 6 breaths/minute. May repeat 0.1 mg IV every 2 minutes for a total of 0.6 mg until resp... ondansetron (Zofran) Start: 01/29/22 7:29:00 EST, Dose = 4 mg, = 2 mL, IV Push, q4h, PRN, Nausea ondansetron (Zofran) Start: 01/29/22 9:01:00 EST, Dose = 4 mg, = 2 mL, IV Push, q6h, PRN, Nausea/Vomiting, 20 hour(s), Stop: 01/30/22 5:00:00 EST ondansetron (Zofran) Start: 01/29/22 9:35:00 EST, Dose = 4 mg, = 1 tab(s), Oral, q8h, PRN, Nausea, 0 ondansetron (Zofran) Start: 01/29/22 9:35:00 EST, Dose = 4 mg, = 2 mL, IV Push, q8h, PRN, Nausea oxytocin (Pitocin) Start: 01/29/22 7:29:00 EST, Dose = 20 unit(s), = 2 mL, Intramuscular, Once, PRN, Other (see order comments) simethicone (Mylicon) Start: 01/29/22 9:35:00 EST, Dose = 80 mg, = 1 tab(s), Chewed, TID, PRN, Gas terbutaline (Brethine) Start: 01/29/22 7:29:00 EST, Dose = 0.25 mg, = 0.25 mL, Subcutaneous, AsDirected, PRN, Other (see order comments) zolpidem (Ambien) Start: 01/29/22 9:35:00 EST, Dose = 5 mg, = 1 tab(s), Oral, qHS, PRN, Sleep One Time Meds: (Completed) acetaminophen (Ofirmev IVPB (ANES)) IV Piggyback, Once, Stop: 01/29/22 9:33:00 EST (Completed) bupivacaine (Marcaine Spinal (ANES)) Soln, Intrathecal, Once, Stop: 01/29/22 9:08:00 EST (Completed) clindamycin Start: 01/29/22 8:00:00 EST, Dose = 600 mg, = 50 mL, IV Piggyback, Once, Stop: 01/29/22 8:00:00 EST, Rate: 100 mL/hr, Infuse over: 30 minute(s) (Completed) dexamethasone (Decadron (ANES)) IV Push, Once, Stop: 01/29/22 9:18:00 EST (Completed) ePHEDrine (ePHEDrine (ANES)) IV Push, Once, Stop: 01/29/22 9:08:00 EST (Completed) gentamicin Start: 01/29/22 8:15:00 EST, Dose = 400 mg, = 10 mL, IV Piggyback, Once, Stop: 01/29/22 8:15:00 EST, Rate: 120 mL/hr, Infuse over: 30 minute(s), EXTENDED DOSING INTERVAL, 0 (Completed) ketorolac (Toradol (ANES)) IV Push, Once, Stop: 01/29/22 9:33:00 EST (Completed) morphine (Duramorph PF) Start: 01/29/22 9:15:00 EST, Dose = 0.15 mg, = 0.15 mL, Intrathecal, Once, Stop: 01/29/22 9:15:00 EST (Completed) ondansetron (Zofran (ANES)) IV Push, Once, Stop: 01/29/22 9:23:00 EST (Completed) oxytocin (Pitocin (ANES)) Intravenous, Once, Stop: 01/29/22 9:13:00 EST Active IV Meds: Lactated Ringers Infusion 1,000 mL (LR 1,000 mL) Start: 01/29/22 7:29:00 EST, Rate: 125 mL/hr oxytocin 20 unit(s) + Lactated Ringers Infusion 1,000 mL (Oxytocin for IV (mL/hr) 20 unit(s) + LR 1,000 mL) Start: 01/29/22 7:29:00 EST, Rate: 999 mL/hr ALLERGIES: (1) penicillin FAMILY HISTORY: Noncontributory to this admission. Patient is adopted. SOCIAL HISTORY: Non-smoker with no toxic habits. Stable and supportive home environment PHYSICAL EXAM: VITALS: [id number](kg) 01/29 10:51--132/[id number]--59/28 80.0 01/29 10:40--132/[id number]-- 01/29 10:2536.7139/[id number]-- 01/29 10:11--143/[id number]-- 01/29 10:10--126/[id number]-- 24 Hr Tmax: 36.7 at 01/29 10:25 36 Hr Tmax: 36.7 at 01/29 10:25 Vital Signs are the last 5 in the past 48 hours. Weights display the last 5 within 7 days. Initial Wt: 01/29 80.0 kg 176 lb Current Wt: 01/29 80.0 kg 176 lb GENERAL: Appears well HEENT: Normocephalic CARDIOVASCULAR: Rate and rhythm normal blood pressure RESPIRATORY: Clear bilaterally ABDOMEN: Gravid consistent with dating vertex presentation EXREMETIES: No edema NEUROLOGICAL: Intact PSYCHIATRIC: No signs of depression or anxiety LABS: 36hr Labs 01/29 0733 ABO/Rh InterpSee Flowsheet Antibody ScreenSee Flowsheet Lymphocyte %13.4 Monocyte %5.6 Eosinophil %0.6 Basophil %0.3 Lymphocyte, Absolute1.10 Monocyte, Absolute0.50 Eosinophil, Absolute0.10 Basophil, Absolute0.00 Neutrophil, Absolute6.60H WBC8.20 RBC3.75L Hgb10.4L Hct30.4L MCV81.1 MCH27.6 MCHC34.0 RDW14.8H Snjjrmff099 MPV9.6 Neutrophil %80.1H DIAGNOSTICS: Category 1 heart rate tracing IMPRESSION: 1 para 0 at 39 weeks estimated gestational age with unfavorable pelvis for scheduled low transverse section. PLAN: Primary section. Future Appointments Appointment Date:02/05/2022 11:00:00 AM Scheduled Provider:SUMMER ROSA MD Location:[facility] Appointment Type: OV Post Op Future Scheduled Tests Laboratory* Panel (AO) 07/21/21 Radiology* US OB < 14 weeks 06/07/21 [facility] 02-28-2022 Hospital Discharge instructions Patient Education 01/29/2022 09:40:49 7b- Depression and Blues (09/2020)([facility]) [place] Depression and Blues All mothers are at risk of developing depression or the blues. These mood changes can occur right after giving , or they may occur many months after giving . blues or depression can be mild or severe. Additionally, depression can goaway rather quickly, or it can be a long-term condition. CAUSES Raised hormone levels and the rapid drop in those levels are thought to be a main cause of depression and blues. A number of hormones change during and after . Estrogenand progesterone usually decrease right after delivery. The levels of thyroid hormone and various cortisol steroids also rapidly drop. Other factors that play a role in these mood changes include major life events and genetics. RISK FACTORS If you have any of the following risks for blues or depression, know what symptoms to watch out for during the period. Risk factors that may increase the likelihood of getting blues or depression include: Having a personal or family history of depression. Having depression while being . Having premenstrual mood issues or mood issues related to oral contraceptives. Having a lot of life stress. Having marital conflict. Lacking a social support network. Having health problems, such as diabetes. SIGNS AND SYMPTOMS Symptoms of blues include: Brief changes in mood, such as going from extreme happiness to sadness. Decreased concentration. Difficulty sleeping. Crying spells, tearfulness. Irritability. Anxiety. Symptoms of depression typically begin within the first month after giving . These symptoms include: Difficulty sleeping or excessive sleepiness. Marked weight loss. Agitation. Feelings of worthlessness. Lack of interest in activity or food. psychosis is a very serious condition and can be dangerous. Fortunately, it is rare. Displaying any of the following symptoms is cause for immediate medical attention. Symptoms of psychosis include: Hallucinations and delusions. Bizarre or disorganized behavior. Confusion or disorientation. DIAGNOSIS A diagnosis is made by an evaluation of your symptoms. There are no medical or lab tests that lead to a diagnosis, but there are various questionnaires that a health care provider may use to identifythose with blues, depression, or psychosis. Often, a screening tool called the [place] Depression Scale is used to diagnose depression in the period. TREATMENT blues usually goes away on its own in 1 2 weeks. Social support is often all that is needed. You will be encouraged to get adequate sleep and rest. Occasionally, you may be given medicinesto help you sleep. depression requires treatment because it can last several months or longer if it is not treated. Treatment may include individual or group therapy, medicine, or both to address any social,physiological, and psychological factors that may play a role in the depression. Regular exercise, a healthy diet, rest, and social support may also be strongly recommended. psychosis is more serious and needs treatment right away. Hospitalization is often needed. HOME CARE INSTRUCTIONS Get as much rest as you can. Exercise regularly. Some women find yoga and walking to be beneficial. Eat a balanced and nourishing diet. Do little things that you enjoy. Have a cup of tea, take a bubble bath, read your favorite magazine, or listen to your favorite music. Avoid alcohol. Ask for help with program director/music director, cooking, grocery shopping, or running errands as needed. Do nottry to do everything. Talk to people close to you about how you are feeling. Get support from your partner, family members, and friends. Try to stay positive in how you think. Think about the things you are grateful for. Do not spend a lot of time alone. Only take [id number] or prescription medicine as directed by your health care provider. Keep all your appointments. Let your health care provider know if you have any concerns. SEEK MEDICAL CARE IF: You are having a reaction to or problems with your medicine. SEEK IMMEDIATE MEDICAL CARE IF: You have suicidal feelings. You think you may harm yourself or someone else. MAKE SURE YOU: Understand these instructions. Will watch your condition. Will get help right away if you are not doing well or get worse. Resource: [facility] Patient Information 2015 [facility]. This information is not intended to replace advicegiven to you by your health care provider. Make sure you discuss any questions you have with your health care provider. 01/29/2022 09:40:37 and Mastitis and Mastitis Mastitis is inflammation of the breast tissue. It can occur in women who are . This can make painful. Mastitis will sometimes go away on its own, especially if it is not caused by an infection (non-infectious mastitis). Your health care provider will help determine if medical treatment is needed. Treatment may be needed if the condition is caused by a bacterial infection (infectious mastitis). What are the causes? This condition is often associated with a blocked milkduct, which can happen when too much milk builds up in the breast. Causes of excess milk in the breast can include: Poor latch-on. If your baby is not latched onto the breast properly, he or she may not empty your breast completely while . Allowing too much time to pass between feedings. Wearing a bra or other clothing that is too tight. This puts extra pressure on the milk ducts so milk does not flow through them as it should. Milk remaining in the breast because it is overfilled (engorged). Stress and fatigue. Mastitis can also be caused by a bacterial infection. Bacteria may enter the breast tissue through cuts, cracks, or openings in the skin near the nipple area. Cracks in the skin are often caused whenyour baby does not latch on properly to the breast. What are the signs or symptoms? Symptoms of this condition include: Swelling, redness, tenderness, and pain in an area of the breast. This usually affects the upper part of the breast, toward the armpit region. In most cases, it affects only one breast. In some cases, it may occur on both breasts at the same time and affect a larger portion of breast tissue. Swelling of the glands under the arm on the same side. Fatigue, headache, and flu-like muscle aches. Fever. Rapid pulse. Symptoms usually last 2 to 5 days. Breast pain and redness are at their worst on day 2 and day 3, and they usually go away by day 5. If an infection is left to progress, a collection of pus (abscess)may develop. How is this diagnosed? This condition can be diagnosed based on your symptoms and a physical exam. You may also have tests, such as: Blood tests to determine if your body is fighting a bacterial infection. Mammogram or ultrasound tests to rule out other problems or diseases. Fluid tests. If an abscess has developed, the fluid in the abscess may be removed with a needle. The fluid may be analyzed to determine if bacteria are present. Breast milk may be cultured and tested for bacteria. How is this treated? This condition will sometimes go away on its own. Your health care provider may choose to wait 24 hours after first seeing you to decide whether treatment is needed. If treatment is needed, it may include: Strategies to manage . This includes continuing to breastfeed or pump in order to allow adequate milk flow, using breast massage, and applying heat or cold to the affected area. Self-care such as rest and increased fluid intake. Medicine for pain. Antibiotic medicine to treat a bacterial infection. This is usually taken by mouth. If an abscess has developed, it may be treated by removing fluid with a needle. Follow these instructions at home: Medicines Take [id number] and prescription medicines only as told by your health care provider. If you were prescribed an antibiotic medicine, take it as told by your health care provider. Do notstop taking the antibiotic even if you start to feel better. General instructions Do not wear a tight or underwire bra. Wear a soft, supportive bra. Increase your fluid intake, especially if you have a fever. Get plenty of rest. For : Continue to empty your breasts as often as possible, either by or using an electric breast pump. This will lower the pressure and the pain that comes with it. Ask your health care provider if changes need to be made to your or pumping routine. Keep your nipples clean and dry. During , empty the first breast completely before going to the other breast. If your baby is not emptying your breasts completely, use a breast pump to empty your breasts. Use breast massage during feeding or pumping sessions. If directed, apply moist heat to the affected area of your breast right before or pumping. Use the heat source that your health care provider recommends. If directed, put ice on the affected area of your breast right after or pumping: ?Put ice in a plastic bag. ?Place a towel between your skin and the bag. ?Leave the ice on for 20 minutes. If you go back to work, pump your breasts while at work to stay in time with your nursing schedule. Do not allow your breasts to become engorged. Contact a health care provider if: You have pus-like discharge from the breast. You have a fever. Your symptoms do not improve within 2 days of starting treatment. Your symptoms return after you have recovered from a breast infection. Get help right away if: Your pain and swelling are getting worse. You have pain that is not controlled with medicine. You have a red line extending from the breast toward your armpit. Summary Mastitis is inflammation of the breast tissue. It is often caused by a blocked milk duct or bacteria. This condition may be treated with hot and cold compresses, medicines, self- care, and certain strategies. If you were prescribed an antibiotic medicine, take it as told by your health care provider. Do notstop taking the antibiotic even if you start to feel better. Continue to empty your breasts as often as possible either by or using an electric breast pump. This information is not intended to replace advice given to you by your health care provider. Make sure you discuss any questions you have with your health care provider. Document Released: 03/15/2006 Document Revised: 08/07/2019 Document Reviewed: 11/19/2017 [employer] Patient Education 2020 [employer] 01/29/2022 09:40:25 Delivery, Care After Delivery, Care After This sheet gives you information about how to care for yourself after your procedure. Your health care provider may also give you more specific instructions. If you have problems or questions, contact your health care provider. What can I expect after the procedure? After the procedure, it is common to have: A small amount of blood or clear fluid coming from the incision. Some redness, swelling, and pain in your incision area. Some abdominal pain and soreness. Vaginal bleeding (lochia). Even though you did not have a vaginal delivery, you will still have vaginal bleeding and discharge. Pelvic cramps. Fatigue. You may have pain, swelling, and discomfort in the tissue between your vagina and your anus (perineum) if: Your was unplanned, and you were allowed to labor and push. An incision was made in the area (episiotomy) or the tissue tore during attempted vaginal delivery. Follow these instructions at home: Incision care Follow instructions from your health care provider about how to take care of your incision. Make sure you: ?Wash your hands with soap and water before you change your bandage (dressing). If soap and water are not available, use hand career technical education instructor. ?If you have a dressing, change it or remove it as told by your health care provider. ?Leave stitches (sutures), skin zuly, skin glue, or adhesive strips in place. These skin closures may need to stay in place for 2 weeks or longer. If adhesive strip edges start to loosen and curl up, you may trim the loose edges. Do not remove adhesive strips completely unless your health care provider tells you to do that. Check your incision area every day for signs of infection. Check for: ?More redness, swelling, or pain. ?More fluid or blood. ?Warmth. ?Pus or a bad smell. Do not take baths, swim, or use a hot tub until your health care provider says it's okay. Ask your health care provider if you can take showers. When you cough or sneeze, hug a pillow. This helps with pain and decreases the chance of your incision opening up (dehiscing). Do this until your incision heals. Medicines Take axfx-mcx-wyswqem and prescription medicines only as told by your health care provider. If you were prescribed an antibiotic medicine, take it as told by your health care provider. Do notstop taking the antibiotic even if you start to feel better. Do not drive or use heavy machinery while taking prescription pain medicine. Lifestyle Do not drink alcohol. This is especially important if you are or taking pain medicine. Do not use any products that contain nicotine or tobacco, such as cigarettes, e- cigarettes, and chewing tobacco. If you need help quitting, ask your health care provider. Eating and drinking Drink at least 8 eight-ounce glasses of water every day unless told not to by your health care provider. If you breastfeed, you may need to drink even more water. Eat high-fiber foods every day. These foods may help prevent or relieve constipation. High-fiber foods include: ?Whole grain cereals and breads. ?Brown rice. ?Beans. ?Fresh fruits and vegetables. Activity If possible, have someone help you care for your baby and help with household activities for at least a few days after you leave the hospital. Return to your normal activities as told by your health care provider. Ask your health care provider what activities are safe for you. Rest as much as possible. Try to rest or take a nap while your baby is sleeping. Do not lift anything that is heavier than 10 lbs (4.5 kg), or the limit that you were told, until your health care provider says that it is safe. Talk with your health care provider about when you can engage in sexual activity. This may depend on your: ?Risk of infection. ?How fast you heal. ?Comfort and desire to engage in sexual activity. General instructions Do not use tampons or douches until your health care provider approves. Wear loose, comfortable clothing and a supportive and well-fitting bra. Keep your perineum clean and dry. Wipe from front to back when you use the toilet. If you pass a blood clot, save it and call your health care provider to discuss. Do not flush bloodclots down the toilet before you get instructions from your health care provider. Keep all follow-up visits for you and your baby as told by your health care provider. This is important. Contact a health care provider if: You have: ?A fever. ?Bad-smelling vaginal discharge. ?Pus or a bad smell coming from your incision. ?Difficulty or pain when urinating. ?A sudden increase or decrease in the frequency of your bowel movements. ?More redness, swelling, or pain around your incision. ?More fluid or blood coming from your incision. ?A rash. ?Nausea. ?Little or no interest in activities you used to enjoy. ?Questions about caring for yourself or your baby. Your incision feels warm to the touch. Your breasts turn red or become painful or hard. You feel unusually sad or worried. You vomit. You pass a blood clot from your vagina. You urinate more than usual. You are dizzy or light-headed. Get help right away if: You have: ?Pain that does not go away or get better with medicine. ?Chest pain. ?Difficulty breathing. ?Blurred vision or spots in your vision. ?Thoughts about hurting yourself or your baby. ?New pain in your abdomen or in one of your legs. ?A severe headache. You faint. You bleed from your vagina so much that you fill more than one sanitary pad in one hour. Bleeding should not be heavier than your heaviest period. Summary After the procedure, it is common to have pain at your incision site, abdominal cramping, and slight bleeding from your vagina. Check your incision area every day for signs of infection. Tell your health care provider about any unusual symptoms. Keep all follow-up visits for you and your baby as told by your health care provider. This information is not intended to replace advice given to you by your health care provider. Make sure you discuss any questions you have with your health care provider. Document Released: 08/10/2003 Document Revised: 05/27/2019 Document Reviewed: 05/27/2019 [employer] Patient Education 2020 [email or web address]. Follow Up Care 01/15/2022 08:51:03 With:SUMMER ROSA MD Address: [address] [place] [address] [place] [address]- [phone] When: Unknown Comments:Ensure followup appointment one week after delivery [facility] 02-09-2022 Hospital Discharge instructions Patient Education 01/10/2022 16:10:53 [facility] [facility] Outpatient Instructions (AORN) [facility] HOME-GOING INSTRUCTIONS _X_ You are to follow up with your physician in ___ days/weeks. ACTIVITY ___ Bedrest ___Activity as tolerated ___ No work/school for ___ days. ___Other PRESCRIPTION GIVEN ___Yes NAUSEA/VOMITING ___ Take small, frequent amounts of clear liquids. Avoid fruit juices and milk. ___ Increase fluid intake to a minimum of 8 ounces of fluid every hour while awake. ___ Soft diet. Rice, crackers, bananas, Jell-O, cooked carrots, applesauce. ___ [place] diet. Avoid caffeine, chocolate, alcohol, spiced/greasy foods. URINARY TRACT INFECTION ___ Drink 8-12 glasses of water every day. ___ Urinate frequently; do not limit fluids to reduce frequency of urination. ___ Call your physician if burning and frequency with urination returns after taking all your medication. ___ Call your physician if you have a temperature of 100.4 degrees Fahrenheit or higher. ___ Wipe from front to back. SIGNS OF PRE-ECLAMPSIA ___ Severe heartburn. ___ Persistent headache not relieved by Tylenol. ___ Increased in swelling of face, hands and feet. ___ Blurred vision, double vision, or spots in the eyes. ___ Persistent vomiting. ___ *Convulsions or seizures. LABOR ___ Restrict activity. ___ Drink 8-12 glasses of water every day. ___ Urinate frequently ___ Pelvic rest. No sexual intercourse/ Call your physician if you experience: ___ Increase in vaginal discharge, leaking fluid, or vaginal bleeding. ___ More than 4, 5, or 6 contractions in one hour. ___ Burning and frequency with urination. DECREASED MOVEMENT ___ Lie down on your left side, drink some fluids and relax. Count the movements. You need tohave 10 movements in 2 hours. ___ If you do not feel the 10 movements, call your physician. OTHER ___ After an exam you may experience some spotting or discharge. As long as it is not bright red and heavy like a period or continues to leak as if your water broke, it is to be expected. ___ LABOR Call your physician if you experience: ___ Painful uterine contractions every ___ minutes for ___ hours. ___A gush or continuous trickle of watery discharge. COME TO THE HOSPITAL AND CALL PHYSICIAN IF: ___ Your abdomen feels continually firm. ___ *Bleeding is bright red and enough to saturate a pad in one hour or less. *Call 911 or go to the nearest Emergency Room for assistance. Form D: 11/09 Follow Up Care 01/10/2022 13:50:32 With:GISELE RAUSCH Address:Unknown When:3-7 days [facility] 02-06-2022 Hospital Discharge instructions Patient Education 01/07/2022 15:55:12 [facility] Outpatient Instructions (AORN) [facility] HOME-GOING INSTRUCTIONS _X_ You are to follow up with your physician in _2__ days/weeks. ACTIVITY ___ Bedrest _X_Activity as tolerated ___ No work/school for ___ days. ___Other PRESCRIPTION GIVEN ___Yes NAUSEA/VOMITING ___ Take small, frequent amounts of clear liquids. Avoid fruit juices and milk. ___ Increase fluid intake to a minimum of 8 ounces of fluid every hour while awake. ___ Soft diet. Rice, crackers, bananas, Jell-O, cooked carrots, applesauce. ___ [place] diet. Avoid caffeine, chocolate, alcohol, spiced/greasy foods. URINARY TRACT INFECTION ___ Drink 8-12 glasses of water every day. ___ Urinate frequently; do not limit fluids to reduce frequency of urination. ___ Call your physician if burning and frequency with urination returns after taking all your medication. ___ Call your physician if you have a temperature of 100.4 degrees Fahrenheit or higher. ___ Wipe from front to back. SIGNS OF PRE-ECLAMPSIA ___ Severe heartburn. ___ Persistent headache not relieved by Tylenol. ___ Increased in swelling of face, hands and feet. ___ Blurred vision, double vision, or spots in the eyes. ___ Persistent vomiting. ___ *Convulsions or seizures. LABOR ___ Restrict activity. _X__ Drink 8-12 glasses of water every day. _X__ Urinate frequently ___ Pelvic rest. No sexual intercourse/ Call your physician if you experience: _X__ Increase in vaginal discharge, leaking fluid, or vaginal bleeding. ___ More than 4, 5, or 6 contractions in one hour. _X__ Burning and frequency with urination. DECREASED MOVEMENT ___ Lie down on your left side, drink some fluids and relax. Count the movements. You need tohave 10 movements in 2 hours. ___ If you do not feel the 10 movements, call your physician. OTHER _X__ After an exam you may experience some spotting or discharge. As long as it is not bright red and heavy like a period or continues to leak as if your water broke, it is to be expected. ___ LABOR Call your physician if you experience: _X__ Painful uterine contractions every _5__ minutes for _1__ hours. _X__A gush or continuous trickle of watery discharge. COME TO THE HOSPITAL AND CALL PHYSICIAN IF: _X__ Your abdomen feels continually firm. _X__ *Bleeding is bright red and enough to saturate a pad in one hour or less. *Call 911 or go to the nearest Emergency Room for assistance. Form 018270 D: 11/09 Follow Up Care 01/07/2022 11:54:24 With:SUMMER ROSA MD Address: [phone] When:01/09/2022 16:15:00 [facility] 01-12-2022 Hospital Discharge instructions Patient Education 12/13/2021 16:58:21 7 - Labor and Delivery Outpatient Instructions(CUSTOM) [facility] OUT[facility] HOME-GOING INSTRUCTIONS _X_ You are to follow up with your physician as scheduled ACTIVITY ___ Bedrest _X__Activity as tolerated ___ No work/school for ___ days. ___Other PRESCRIPTION GIVEN _X__Yes __[facility] to [facility] NAUSEA/VOMITING ___ Take small, frequent amounts of clear liquids. Avoid fruit juices and milk. ___ Increase fluid intake to a minimum of 8 ounces of fluid every hour while awake. ___ Soft diet. Rice, crackers, bananas, Jell-O, cooked carrots, applesauce. ___ [place] diet. Avoid caffeine, chocolate, alcohol, spiced/greasy foods. URINARY TRACT INFECTION _X__ Drink 8-12 glasses of water every day. _X__ Urinate frequently; do not limit fluids to reduce frequency of urination. X___ Call your physician if burning and frequency with urination returns after taking all your medication. __X_ Call your physician if you have a temperature of 100.4 degrees Fahrenheit or higher. __X_ Wipe from front to back. SIGNS OF PRE-ECLAMPSIA ___ Severe heartburn. ___ Persistent headache not relieved by Tylenol. ___ Increased in swelling of face, hands and feet. ___ Blurred vision, double vision, or spots in the eyes. ___ Persistent vomiting. ___ *Convulsions or seizures. LABOR ___ Restrict activity. ___ Drink 8-12 glasses of water every day. ___ Urinate frequently ___ Pelvic rest. No sexual intercourse/ Call your physician if you experience: ___ Increase in vaginal discharge, leaking fluid, or vaginal bleeding. ___ More than 4, 5, or 6 contractions in one hour. ___ Burning and frequency with urination. DECREASED MOVEMENT ___ Lie down on your left side, drink some fluids and relax. Count the movements. You need tohave 10 movements in 2 hours. ___ If you do not feel the 10 movements, call your physician. OTHER __X_ After an exam you may experience some spotting or discharge. As long as it is not bright red and heavy like a period or continues to leak as if your water broke, it is to be expected. ___ LABOR Call your physician if you experience: ___ Painful uterine contractions every ___ minutes for ___ hours. ___A gush or continuous trickle of watery discharge. COME TO THE HOSPITAL AND CALL PHYSICIAN IF: ___ Your abdomen feels continually firm. ___ *Bleeding is bright red and enough to saturate a pad in one hour or less. *Call 911 or go to the nearest Emergency Room for assistance. Form 595670 D: 11/09 Document Released: 11/18/2006 Document Revised: 11/06/2012 Document Reviewed: 11/18/2006 [facility] [place] Patient Information 2012 [employer]. Follow Up Care 12/13/2021 15:25:06 With:SUMMER ROSA Address: [address] [place] [address]- [phone] Business (1) When: Unknown Comments:Follow-up as scheduled [facility] 11-12-2021 Hospital Discharge instructions Patient Education 10/13/2021 17:05:12 7 - Labor and Delivery Outpatient Instructions (CUSTOM) [facility] HOME-GOING INSTRUCTIONS _X_ You are to follow up with your physician in ___ days/weeks. ACTIVITY ___ Bedrest __x_Activity as tolerated ___ No work/school for ___ days. ___Other PRESCRIPTION GIVEN ___Yes NAUSEA/VOMITING ___ Take small, frequent amounts of clear liquids. Avoid fruit juices and milk. ___ Increase fluid intake to a minimum of 8 ounces of fluid every hour while awake. ___ Soft diet. Rice, crackers, bananas, Jell-O, cooked carrots, applesauce. ___ [place] diet. Avoid caffeine, chocolate, alcohol, spiced/greasy foods. URINARY TRACT INFECTION ___ Drink 8-12 glasses of water every day. ___ Urinate frequently; do not limit fluids to reduce frequency of urination. ___ Call your physician if burning and frequency with urination returns after taking all your medication. ___ Call your physician if you have a temperature of 100.4 degrees Fahrenheit or higher. ___ Wipe from front to back. SIGNS OF PRE-ECLAMPSIA ___ Severe heartburn. ___ Persistent headache not relieved by Tylenol. ___ Increased in swelling of face, hands and feet. ___ Blurred vision, double vision, or spots in the eyes. ___ Persistent vomiting. ___ *Convulsions or seizures. LABOR ___ Restrict activity. ___ Drink 8-12 glasses of water every day. ___ Urinate frequently ___ Pelvic rest. No sexual intercourse/ Call your physician if you experience: __x_ Increase in vaginal discharge, leaking fluid, or vaginal bleeding. __x_ More than 4, 5, or 6 contractions in one hour. __x_ Burning and frequency with urination. DECREASED MOVEMENT __x_ Lie down on your left side, drink some fluids and relax. Count the movements. You need to have 10 movements in 2 hours. __x_ If you do not feel the 10 movements, call your physician. OTHER ___ After an exam you may experience some spotting or discharge. As long as it is not bright red and heavy like a period or continues to leak as if your water broke, it is to be expected. ___ LABOR Call your physician if you experience: ___ Painful uterine contractions every ___ minutes for ___ hours. ___A gush or continuous trickle of watery discharge. COME TO THE HOSPITAL AND CALL PHYSICIAN IF: __x_ Your abdomen feels continually firm. __x_ *Bleeding is bright red and enough to saturate a pad in one hour or less. *Call 911 or go to the nearest Emergency Room for assistance. Form [id number] D: 11/09 Document Released: 11/18/2006 Document Revised: 11/06/2012 Document Reviewed: 11/18/2006 [employer] Patient Information 2012 [employer]. Follow Up Care 10/13/2021 16:36:25 With:JUNG SHAH MD Address: [phone] When: Unknown Comments:Follow-up as scheduled [facility] 10-20-2021 Evaluation + Plan noteExtracted from: Title:Clinical Document Author:JUNG SHAH MD Date:09/20/21 Subjective Patient in shower. Per nursing, patient has not had one emesis since admission. Objective see vital s VITALS GxdcjwIwlhHQOydyvCJPgE6JBE5JaffGn(kg) 09/20 07:4436.8107/620092--YB49/86075.0 09/20 00:1236.7108/856235--TO 09/19 16:1036.8116/744863--CZ 09/19 09:48--119/923301--GQ 09/19 09:4736.7--------RA 24 Hr Tmax: 36.8 at 09/20 07:44 36 Hr Tmax: 36.8 at 09/20 07:44 Vital Signs are the last 5 in the past 48 hours. Weights display the last 5 within 7 days. Initial Wt: 09/19 680.0 kg 1496 lb Current Wt: 09/19 680.0 kg 1496 lb LABS 09/19 10:05 WBC: 10.60 Hgb: 11.2 L Hct: 33.4 L Platelet: 285 Neutrophil %: 80.6 H Glucose Level: 79 Sodium Level: 138 Potassium Level: 4.0 BUN: 7 Creatinine Lvl (s): 0.57 Medications Active Inpt Meds: metoclopramide (Reglan) Start: 09/19/21 20:48:00 EDT, Dose = 10 mg, = 1 tab(s), Oral, q6h, 0 ondansetron (Zofran ODT) Start: 09/19/21 20:42:00 EDT, Dose = 4 mg, = 1 tab(s), Oral, q6h, Disintegrating Tablet, 0 Active PRN Meds: acetaminophen (Tylenol) Start: 09/20/21 0:08:00 EDT, Dose = 650 mg, = 2 tab(s), Oral, q4h, PRN, Pain, scale 1-3 One Time Meds: (Completed) Lactated Ringers Infusion (Lactated Ringers Bolus) Start: 09/19/21 10:00:00 EDT, Dose = 250 mL, Soln, IV Bolus, Once, Stop: 09/19/21 10:00:00 EDT, Rate: 1,000 mL/hr, hour(s) (Completed) acetaminophen (Tylenol) Start: 09/19/21 17:30:00 EDT, Dose = 650 mg, = 2 tab(s), Oral, Once, Stop: 09/19/21 17:30:00 EDT Active IV Meds: None Problems (15) ADD - Attention deficit disorder (605119464) Anxiety (76770590) Asthma (135375177) Chest tightness (053360943) Decreased vitamin D (723204644) Depression (026275656) Dizziness (2999477219) H/O: migraine (384832024) Insomnia (653154100) Left ear impacted cerumen (68395681) Migraines (18381999) Nausea (5458309196) (766318089) Sinus arrhythmia (248756092) Traumatic brain injury (157592) ASSESSMENT/PLAN: Home on scheduled Reglan , Zomarisol and FU within a week. Extracted from: Title:Clinical Document Author:RICHARD JOSE RN-CNM Date:09/19/21 [facility] ADMISSION HISTORY A [place] PHYSICIAL CHIEF COMPLAINT: Hyperemesis 20.1 week intrauterine Urinary tract infection HISTORY OF PRESENT ILLNESS: 21 yo AA woman G1 MARICRUZ 02/05/21 20.1 weeks. Came from the office. She c/o nausea and vomiting, she is unable to keep anything down including antiemetics for several days. She has tried multiple antiemetics with short term relief. She has been seen in ED with same. She was found to have a UTI at last OB visit and she could not keep her oral antibiotics down. OB History: MARICRUZ 02/05/22 (Authoritative) EGA 20 Weeks, 1 Days /Parity G1,P0(0,0,0,0) Multiple Fetuses No, Syed Feeding Plan -- Current Weight 680kg Pre-Preg Weight 77.1kg Height 142.2cm BMI 336.29kg/m2 Blood Type AB POS RPR Non-Reactive Rubella Imm St Positive REVIEW OF SYSTEMS: Skin appears dry, all others Neg. ACTIVE PROBLEMS: (15) ADD - Attention deficit disorder (285824498) Anxiety (84867517) Asthma (021378293) Chest tightness (345575187) Decreased vitamin D (550973601) Depression (274376570) Dizziness (6529241231) H/O: migraine (375096529) Insomnia (852270931) Left ear impacted cerumen (45402984) Migraines (88540106) Nausea (4929639933) (758551421) Sinus arrhythmia (714577911) Traumatic brain injury (352805) MEDICATIONS: Active Inpt Meds: cefTRIAXone (Rocephin) Start: 09/19/21 11:03:00 EDT, Dose = 1 gram(s), IV Piggyback, qDay, Rate: 200 mL/hr, Infuse over: 30 minute(s), 0 Active PRN Meds: ondansetron (Zofran) Start: 09/19/21 10:00:00 EDT, Dose = 4 mg, = 2 mL, IV Push, q2h, PRN, Nausea One Time Meds: (Completed) Lactated Ringers Infusion (Lactated Ringers Bolus) Start: 09/19/21 10:00:00 EDT, Dose = 250 mL, Soln, IV Bolus, Once, Stop: 09/19/21 10:00:00 EDT, Rate: 1,000 mL/hr, hour(s) (Ordered) acetaminophen (Tylenol) Start: 09/19/21 17:30:00 EDT, Dose = 650 mg, = 2 tab(s), Oral, Once, Stop: 09/19/21 17:30:00 EDT Active IV Meds: Lactated Ringers Infusion 1,000 mL Start: 09/19/21 17:21:00 EDT, Rate: 125 mL/hr ALLERGIES: (1) penicillin 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 Weights display the last 5 within 7 days. Initial Wt: 09/19 680.0 kg 1496 lb Current Wt: 09/19 680.0 kg 1496 lb GENERAL: ARJUN, appears comfortable. HEENT: WNL CARDIOVASCULAR: RRR RESPIRATORY: CTAB ABDOMEN: Gravid, soft EXREMETIES: Non tender, no edema Skin: appears dry. NEUROLOGICAL: WNL PSYCHIATRIC: WNL LABS: 36hr Labs 09/19 1005 Potassium Level4.0 A/G Ratio1.0L Creatinine Lvl (s)0.57 Bili Direct<0.1 Globulin3.4 ALT/EJNO34A Abpxcuol582 Bili Total0.2 BUN/Creatinine Ratio12 GFR Fadctzwx759 A/G Ratio1.0L Total Protein6.6 NQ012P Bili IndirectSee Flowsheet Alk Phos98 Calcium Lvl9.0 GFR Non- Mmdcznaz142 Bili Total0.2 Glucose Level79 Albumin Level3.3L Electrolyte Kxrlupz32.0 AST/SGOT28 Total Protein6.7 Alk Phos97 Sodium Sfbnj016 Globulin3.3 BUN7 ALT/HVUB34X Albumin Level3.3L AST/SGOT28 MCV86.3 MPV9.1 Monocyte %5.6 Eosinophil, Absolute0.10 WBC10.60 MCH29.0 Eosinophil %1.3 Basophil, Absolute0.00 RBC3.87L MCHC33.6 Basophil %0.4 Hgb11.2L RDW13.1 Neutrophil %80.6H Lymphocyte, Absolute1.30 Neutrophil, Absolute8.50H Hct33.4L Lymphocyte %12.1 Pzkloffp077 Monocyte, Absolute0.60 UA BloodSee Flowsheet UA Leuk EstSee Flowsheet UA MucousSee Flowsheet UA Spec GravSee Flowsheet UA pHSee Flowsheet UA AmorphusSee Flowsheet UA GlucoseSee Flowsheet UA ProteinSee Flowsheet UA RBCSee Flowsheet UA Specimen TypSee Flowsheet UA BiliSee Flowsheet UA UrobilinogenSee Flowsheet UA WBCSee Flowsheet UA ColorSee Flowsheet UA KetonesSee Flowsheet UA NitriteSee Flowsheet UA Squam EpitheSee Flowsheet UA AppearSee Flowsheet PLAN: 20.1 week intrauterine admitted OBV with hyperemesis. With a history of UTI that has more likely not resolved d/t vomiting antibiotcs. Plan IV hydration, IV antiemetics, Labs, IV antibiotics for UTI. Will change to PO meds before discharge. Future Scheduled Tests Laboratory* Panel (AO) 07/21/21 Radiology* US OB < 14 weeks 06/07/21 [facility] Jennifer 10-20-2021 Hospital Discharge instructions Patient Education 09/20/2021 09:07:59 Hyperemesis Gravidarum Hyperemesis Gravidarum Hyperemesis gravidarum is a severe form of nausea and vomiting that happens during . Hyperemesis is worse than morning sickness. It may cause you to have nausea or vomiting all day for many days. It may keep you from eating and drinking enough food and liquids, which can lead to dehydration, malnutrition, and weight loss. Hyperemesis usually occurs during the first half (the first 20 weeks) of . It often goes away once a woman is in her second half of . However, sometimes hyperemesis continues through an entire . What are the causes? The cause of this condition is not known. It may be related to changes in chemicals (hormones) in the body during , such as the high level of hormone (human chorionic gonadotropin)or the increase in the female sex hormone (estrogen). What are the signs or symptoms? Symptoms of this condition include: Nausea that does not go away. Vomiting that does not allow you to keep any food down. Weight loss. Body fluid loss (dehydration). Having no desire to eat, or not liking food that you have previously enjoyed. How is this diagnosed? This condition may be diagnosed based on: A physical exam. Your medical history. Your symptoms. Blood tests. Urine tests. How is this treated? This condition is managed by controlling symptoms. This may include: Following an eating plan. This can help lessen nausea and vomiting. Taking prescription medicines. An eating plan and medicines are often used together to help control symptoms. If medicines do not help relieve nausea and vomiting, you may need to receive fluids through an IV at the hospital. Follow these instructions at home: Eating and drinking Avoid the following: ?Drinking fluids with meals. Try not to drink anything during the 30 minutes before and after your meals. ?Drinking more than 1 cup of fluid at a time. ?Eating foods that trigger your symptoms. These may include spicy foods, coffee, high-fat foods, very sweet foods, and acidic foods. ?Skipping meals. Nausea can be more intense on an empty stomach. If you cannot tolerate food, do not force it. Try sucking on ice chips or other frozen items and make up for missed calories later. ?Lying down within 2 hours after eating. ?Being exposed to environmental triggers. These may include food smells, smoky rooms, closed spaces, rooms with strong smells, warm or humid places, overly loud and noisy rooms, and rooms with motionor flickering lights. Try eating meals in a well-ventilated area that is free of strong smells. ?Quick and sudden changes in your movement. ?Taking iron pills and multivitamins that contain iron. If you take prescription iron pills, do notstop taking them unless your health care provider approves. ?Preparing food. The smell of food can spoil your appetite or trigger nausea. To help relieve your symptoms: ?Listen to your body. Everyone is different and has different preferences. Find what works best foryou. ?Eat and drink slowly. ?Eat 5 6 small meals daily instead of 3 large meals. Eating small meals and snacks can help you avoid an empty stomach. ?In the morning, before getting out of bed, eat a couple of crackers to avoid moving around on an empty stomach. ?Try eating starchy foods as these are usually tolerated well. Examples include cereal, toast, bread, potatoes, pasta, rice, and pretzels. ?Include at least 1 serving of protein with your meals and snacks. Protein options include lean meats, poultry, seafood, beans, nuts, nut butters, eggs, cheese, and yogurt. ?Try eating a protein-rich snack before bed. Examples of a protein-ingrid snack include cheese and crackers or a peanut butter sandwich made with 1 slice of whole-wheat bread and 1 tsp (5 g) of peanut butter. ?Eat or suck on things that have kathleen in them. It may help relieve nausea. Add tsp ground kathleen to hot tea or choose kathleen tea. ?Try drinking 100% fruit juice or an electrolyte drink. An electrolyte drink contains sodium, potassium, and chloride. ?Drink fluids that are cold, clear, and carbonated or sour. Examples include lemonade, kathleen allyssa, lemon cachil dehe soda, ice water, and sparkling water. ?[place] your teeth or use a mouth rinse after meals. ?Talk with your health care provider about starting a supplement of vitamin B6. General instructions Take [id number] and prescription medicines only as told by your health care provider. Follow instructions from your health care provider about eating or drinking restrictions. Continue to take your vitamins as told by your health care provider. If you are having trouble taking your vitamins, talk with your health care provider about different options. Keep all follow-up and pre- () visits as told by your health care provider. This is important. Contact a health care provider if: You have pain in your abdomen. You have a severe headache. You have vision problems. You are losing weight. You feel weak or dizzy. Get help right away if: You cannot drink fluids without vomiting. You vomit blood. You have constant nausea and vomiting. You are very weak. You faint. You have a fever and your symptoms suddenly get worse. Summary Hyperemesis gravidarum is a severe form of nausea and vomiting that happens during . Making some changes to your eating habits may help relieve nausea and vomiting. This condition may be managed with medicine. If medicines do not help relieve nausea and vomiting, you may need to receive fluids through an IV at the hospital. This information is not intended to replace advice given to you by your health care provider. Make sure you discuss any questions you have with your health care provider. Document Released: 11/18/2006 Document Revised: 12/08/2018 Document Reviewed: 07/17/2017 [employer] Patient Education 2020 [employer] 09/20/2021 09:07:59 [place] [facility] Outpatient Instructions (AORN) [facility] OUT[facility]IENT HOME-GOING INSTRUCTIONS _X_ You are to follow up with your physician in ___ days/weeks. ACTIVITY ___ Bedrest _X__Activity as tolerated ___ No work/school for ___ days. ___Other PRESCRIPTION GIVEN _X__Yes ____ZOFRAN, REGLAN, AND PHENERGAN SUPPOSITORY NAUSEA/VOMITING _X__ Take small, frequent amounts of clear liquids. Avoid fruit juices and milk. _X__ Increase fluid intake to a minimum of 8 ounces of fluid every hour while awake. _X__ Soft diet. Rice, crackers, bananas, Jell-O, cooked carrots, applesauce. _X__ [place] diet. Avoid caffeine, chocolate, alcohol, spiced/greasy foods. URINARY TRACT INFECTION ___ Drink 8-12 glasses of water every day. ___ Urinate frequently; do not limit fluids to reduce frequency of urination. ___ Call your physician if burning and frequency with urination returns after taking all your medication. ___ Call your physician if you have a temperature of 100.4 degrees Fahrenheit or higher. ___ Wipe from front to back. SIGNS OF PRE-ECLAMPSIA ___ Severe heartburn. ___ Persistent headache not relieved by Tylenol. ___ Increased in swelling of face, hands and feet. ___ Blurred vision, double vision, or spots in the eyes. ___ Persistent vomiting. ___ *Convulsions or seizures. LABOR ___ Restrict activity. ___ Drink 8-12 glasses of water every day. ___ Urinate frequently ___ Pelvic rest. No sexual intercourse/ Call your physician if you experience: _X__ Increase in vaginal discharge, leaking fluid, or vaginal bleeding. _X__ More than 4, 5, or 6 contractions in one hour. _X__ Burning and frequency with urination. DECREASED MOVEMENT _X__ Lie down on your left side, drink some fluids and relax. Count the movements. You need to have 10 movements in 2 hours. _X__ If you do not feel the 10 movements, call your physician. OTHER ___ After an exam you may experience some spotting or discharge. As long as it is not bright red and heavy like a period or continues to leak as if your water broke, it is to be expected. ___ LABOR Call your physician if you experience: ___ Painful uterine contractions every ___ minutes for ___ hours. ___A gush or continuous trickle of watery discharge. COME TO THE HOSPITAL AND CALL PHYSICIAN IF: ___ Your abdomen feels continually firm. ___ *Bleeding is bright red and enough to saturate a pad in one hour or less. *Call 911 or go to the nearest Emergency Room for assistance. Form 160972 D: 11/09 Follow Up Care 09/19/2021 09:42:13 With:JUNG SHAH MD Address: [phone] When:09/27/2021 [facility] 08-20-2021 Evaluation + Plan note Future Scheduled Tests Laboratory* Panel (AO) 07/21/21 Radiology* US OB < 14 weeks 06/07/21 [facility] 01-18-2015 History of Past illness Narrative* Problem Noted Date Resolved Date Suicidal risk 12/19/2014 02/18/2017 Vesicoureteral reflux, unspe cified or without reflux nephropathy 09/04/2006 05/10/2012 Urinary frequency 08/20/2006 05/10/2012 Open fracture of phalanx or phalanges of hand, u nspecified 05/25/2003 05/10/2012 Other congenital deformity of hip (joint) 200105/10/2012 documented as of this encounter (statuses as of 03/06/2023) [facility] History of Past illness Narrative* Problem Noted Date Diagnosed Date Resolved Date Suicidal risk 12/19/2014 02/18/2017 Vesicoureteral reflux, unspe cified or without reflux nephropathy 09/04/2006 05/10/2012 Urinary frequency 08/20/2006 05/10/2012 Open fracture of phalanx or phalanges of hand, unspecified 05/25/2003 05/10/2012 Other congenital deformity of hip (joint) 11/20/2002 05/10/2012 documented as of this encounter (statuses as of 07/20/2023) [facility] Appointment Date:09/19/2021 09:00:00 AM Scheduled Provider:RICHARD JOSE Location[facility] Appointment Type: OV OB Routine Follow Up Future Scheduled Tests Laboratory* Panel (AO) 07/21/21 Radiology* US OB < 14 weeks 06/07/21 [facility] Evaluation + Plan note Future Appointments Appointment Date:10/17/2021 10:30:00 AM Scheduled Provider:JUNG SHAH MD Location:[facility] Appointment Type: OV OB Routine Follow Up Future Scheduled Tests Laboratory* Panel (AO) 07/21/21 Radiology* US OB < 14 weeks 06/07/21 [facility] Evaluation + Plan note Future Appointments Appointment Date:10/31/2021 10:00:00 AM Scheduled Provider:RICHARD JOSE Location:[facility] Appointment Type: OV Future Scheduled Tests Laboratory* Panel (AO) 07/21/21 Radiology* US OB < 14 weeks 06/07/21 [facility] Evaluation + Plan note Future Appointments Appointment Date:12/18/2021 08:45:00 AM Scheduled Provider:SUMMER ROSA MD Location:[facility] Appointment Type: OV OB Routine Follow Up Future Scheduled Tests Laboratory* Panel (AO) 07/21/21 Radiology* US OB < 14 weeks 06/07/21 [facility] evaluation + Plan note Future Appointments Appointment Date:12/18/2021 08:45:00 AM Scheduled Provider:SUMMER ROSA MD Location:[facility] Appointment Type: OV OB Routine Follow Up Diagnostic Tests Pending * Urine Culture 12/13/21 Future Scheduled Tests Laboratory* Panel (AO) 07/21/21 Radiology* US OB < 14 weeks 06/07/21 [facility] Evaluation + Plan note Future Appointments Appointment Date:01/09/2022 04:15:00 PM Scheduled Provider:RICHARD JOSE Location:[facility] Appointment Type: OV OB Routine Follow Up Future Scheduled Tests Laboratory* Panel (AO) 07/21/21 Radiology* US OB < 14 weeks 06/07/21 [facility] Evaluation + Plan note Future Appointments Appointment Date:01/15/2022 08:30:00 AM Scheduled Provider:SUMMER ROSA MD Location:[facility] Appointment Type: OV OB Routine Follow Up Future Scheduled Tests Laboratory* Panel (AO) 07/21/21 Radiology* US OB < 14 weeks 06/07/21 [facility] Evaluation + Plan note Future Appointments Appointment Date:01/22/2022 09:45:00 AM Scheduled Provider:SUMMER ROSA MD Location:[facility] Appointment Type: OV OB Routine Follow Up Future Scheduled Tests Laboratory* Panel (AO) 07/21/21 Radiology* US OB < 14 weeks 06/07/21 [facility] Evaluation note* Diagnosis Bipolar II disorder major depressive with onset (HCC)- Primary Mental disorders of mother, [facility] Diagnosis Bipolar I disorder with depression (HCC)- Primary documented in this encounter [facility] note* Diagnosis Bipolar II disorder major depressive with onset (HCC)- Primary Mental disorders of mother, [facility] Diagnosis Bipolar 1 disorder, mixed, moderate (HCC)- Primary [facility] Diagnosis Bipolar 1 disorder, mixed, moderate (HCC) [facility] Diagnosis Bipolar 1 disorder, mixed, moderate (HCC) [facility] Diagnosis Bipolar 1 disorder, mixed, moderate (HCC)- Primary Bipolar I disorder with depression (HCC) [facility] Diagnosis Bipolar 1 disorder, mixed, moderate (HCC) [facility] Diagnosis Schizoaffective disorder, bipolar type (HCC)- Primary Schizoaffective disorder, unspecified condition Depression, unspecified depression type Acute UTI Urinary tract infection, site not specified Schizoaffective disorder (HCC) Schizoaffective disorder, unspecified condition [facility] Diagnosis Schizoaffective disorder, bipolar type (HCC)- Primary Schizoaffective disorder, unspecified condition [facility]* Diagnosis Strep pharyngitis- Primary Streptococcal sore throat Throat pain documented in this encounter [facility] note* Diagnosis Bipolar 1 disorder, mixed, moderate ([facility])- Primary documented in this encounter [facility] note* Diagnosis Vitamin D deficiency Morbid obesity with BMI of 40.0-44.9, adult (HCC) Gastroesophageal reflux disease without esophagitis Esophageal reflux Prediabetes Other abnormal glucose documented in this encounter [facility] note* Diagnosis Gastroesophageal reflux disease without esophagitis Esophageal reflux Prediabetes Other abnormal glucose Morbid obesity with BMI of 40.0-44.9, adult (HCC) Vitamin D deficiency documented in this encounter [facility] note* Diagnosis Gastroesophageal reflux disease without esophagitis Esophageal reflux Prediabetes Other abnormal glucose Morbid obesity with BMI of 40.0-44.9, adult (HCC) Vitamin D deficiency documented in this encounter [facility] note* Diagnosis Gastroesophageal reflux disease without esophagitis Esophageal reflux Prediabetes Other abnormal glucose Morbid obesity with BMI of 40.0-44.9, adult ([facility]) Vitamin D deficiency documented in this encounter [facility] note* Diagnosis Gastroesophageal reflux disease without esophagitis Esophageal reflux Prediabetes Other abnormal glucose Morbid obesity with BMI of 40.0-44.9, adult ([facility]) Vitamin D deficiency documented in this encounter [facility] note* Diagnosis Low vitamin B12 level- Primary Low vitamin D level Gastro-esophageal reflux disease without esophagitis documented in this encounter [facility] note* Diagnosis Snoring- Primary Other dyspnea and respiratory abnormality Gastro-esophageal reflux disease without esophagitis documented in this encounter [facility] note* Diagnosis Prediabetes- Primary Other abnormal glucose Gastro-esophageal reflux disease without esophagitis documented in this encounter [facility] note* Diagnosis Gastroesophageal reflux disease without esophagitis Esophageal reflux Prediabetes Other abnormal glucose Morbid obesity with BMI of 40.0-44.9, adult ([facility]) Vitamin D deficiency Gastro-esophageal reflux disease without esophagitis documented in this encounter [facility] note* Diagnosis Bipolar 1 disorder, mixed, moderate ([facility])- Primary documented in this encounter [facility] note* Diagnosis Morbid obesity due to excess calories ([facility])- Primary Pre-diabetes Other abnormal glucose Gastro-esophageal reflux disease without esophagitis documented in this encounter [facility] note* Diagnosis Acute pain of left knee- Primary documented in this encounter [facility] note* Diagnosis Schizoaffective disorder, bipolar type with good prognostic features (HCC)- Primary Bipolar 1 disorder, mixed, moderate (HCC) documented in this encounter [facility] note* Diagnosis Schizoaffective disorder, bipolar type with good prognostic features (HCC)- Primary Bipolar 1 disorder, mixed, moderate (HCC) documented in this encounter [facility] note* Diagnosis Morbid obesity due to excess calories (HCC)- Primary Pre-diabetes Other abnormal glucose Gastro-esophageal reflux disease without esophagitis documented in this encounter [facility] note* Diagnosis PVC (premature ventricular contraction)- Primary Other premature beats Shortness of breath Morbid obesity with BMI of 40.0-44.9, adult ([facility]) Preoperative clearance Unspecified pre-operative examination Prediabetes Other abnormal glucose Gastro-esophageal reflux disease without esophagitis documented in this encounter [facility] note* Diagnosis Gastro-esophageal reflux disease without esophagitis Mild intermittent asthma, unspecified whether complicated- Primary documented in this encounter [facility] note* Diagnosis Shortness of breath PVC (premature ventricular contraction) Other premature beats Mild intermittent asthma, unspecified whether complicated- Primary documented in this encounter [facility] note* Diagnosis Gastro-esophageal reflux disease without esophagitis- Primary Morbid (severe) obesity due to excess calories ([facility]) Body mass index (BMI) 40.0-44.9, adult ([facility]) Vitamin D deficiency, unspecified Prediabetes Other abnormal glucose Mild intermittent asthma, unspecified whether complicated- Primary documented in this encounter [facility] note* Diagnosis Mild intermittent asthma, unspecified whether complicated- Primary Morbid obesity with BMI of 40.0-44.9, adult ([facility]) Sleep disorder Unspecified sleep disturbance documented in this encounter [facility] note* Diagnosis Prediabetes- Primary Other abnormal glucose documented in this encounter [facility] note* Diagnosis Morbid obesity due to excess calories (HCC)- Primary Pre-diabetes Other abnormal glucose documented in this encounter [facility] note* Diagnosis Schizoaffective disorder, bipolar type (HCC)- Primary Schizoaffective disorder, unspecified condition Schizoaffective disorder, bipolar type (HCC) Schizoaffective disorder, unspecified condition Long-term use of high-risk medication documented in this encounter [facility] note* Diagnosis H. pylori infection- Primary Helicobacter pylori (H. pylori) [facility] Diagnosis H. pylori infection- Primary Helicobacter pylori (H. pylori) documented in this encounter [facility] note* Diagnosis Gastroesophageal reflux disease without esophagitis Esophageal reflux Prediabetes Other abnormal glucose Morbid obesity with BMI of 40.0-44.9, adult (HCC) Vitamin D deficiency Pre-operative laboratory examination Pre-procedural laboratory examination Encounter for tobacco use screening Gastroesophageal reflux disease without esophagitis Esophageal reflux Prediabetes Other abnormal glucose Morbid obesity with BMI of 40.0-44.9, adult (HCC) Vitamin D deficiency Gastroesophageal reflux disease without esophagitis Esophageal reflux Prediabetes Other abnormal glucose Morbid obesity with BMI of 40.0-44.9, adult (HCC) Vitamin D deficiency [facility]* Diagnosis Shortness of breath PVC (premature ventricular contraction) Other premature beats [facility] Narrative No data available for this section [facility] Discharge instructions No data available for this section [facility] Discharge instructions* Attachments The following attachments cannot be sent through Care Everywhere. * Upper GI Endoscopy Discharge Instructions ([place]) [facility] No data available for this section [facility] Reason for referral (narrative)* Consultation (Routine) - Pending Review Specialty Diagnoses / Procedures Referred By Zenon t Referred To Contact Pulmonary Disease / Pulmonology Diagnoses Prediabetes Morbid obesity with BMI of 40.0-44.9, adult (HCC) Procedures RI OFFICE/OUTPATIENT [facility] 60-74 MINUTES Jeremy Hallman R, STEAM OVEN OPERATOR - SENIOR JAVA WEB APPLICATION DEVELOPER [address] [place] [address] [facility] [address] [place] [address] Referral ID Status Reason Start Date Expiration Date Visits Requested Visits Authorized [id number] Pending Review Specialty Services Required 05/20/2023 05/19/2024 1 1 * Consultation (Elective) - Pending Review Specialty Diagnoses / Procedures Referred By Contac t Referred To Contact Cardiology Diagnoses Prediabetes Morbid obesity with BMI of 40.0-44.9, adult (HCC) Procedures RI OFFICE/OUTPATIENT [facility] 60-74 MINUTES Jeremy Hallman APRN - VITOR [address] [place] [address] [facility] Card [address] [place] [address] Referral ID Status Reason Start Date Expiration Date Visits Requested Visits Authorized [id number] Pending Review Specialty Services Required 05/20/2023 05/19/2024 1 1 [facility] Consultation (Routine) - Pending Review Specialty Diagnoses / Procedures Referred By Contac t Referred To Contact Sleep Medicine Diagnoses Snoring Procedures RI OFFICE/OUTPATIENT [facility] 60-74 MINUTES Miguelangel Green MD [address] [place] [address] [facility] [address] [place] [address] Referral ID Status Reason Start Date Expiration Date Visits Requested Visits Authorized [id number] Pending Review Specialty Services Required 06/13/2023 06/12/2024 1 1 [facility] Diagnostic Procedure Only (Urgent) - Pending Review Specialty Diagnoses / Procedures Referred By Contac t Referred To Contact XR IMAGING Diagnoses Acute pain of left knee Procedures XR KNEE GENERAL 4V AP BOTH/PA BOTH/LAT/MERC LEFT RADIOLOGIC EXAM KNEE COMPLETE 4/MORE VIEWS Magda Guzman, STEAM OVEN OPERATOR.SENIOR JAVA WEB APPLICATION DEVELOPER [address] [place] [address] [facility] [id number] Referral ID Status Reason Start Date Expiration Date Visits Requested Visits Authorized [id number] Pending Review Auto-Generat ed Referral 07/20/2023 08/18/2024 1 1 [facility] for referral (narrative)* Consultation (Routine) - Pending Review Specialty Diagnoses / Procedures Referred By Contac t Referred To Contact Pulmonary Disease / Pulmonology Diagnoses Prediabetes Morbid obesity with BMI of 40.0-44.9, adult (HCC) Procedures RI OFFICE/OUTPATIENT [facility] 60-74 MINUTES Jeremy Hallman APRN - SENIOR JAVA WEB APPLICATION DEVELOPER [address] [place] [address] [facility] [address] [place] [address] Referral ID Status Reason Start Date Expiration Date Visits Requested Visits Authorized [id number] Pending Review Specialty Services Required 05/20/2023 05/19/2024 1 1 * Consultation (Elective) - Pending Review Specialty Diagnoses / Procedures Referred By Contac t Referred To Contact Cardiology Diagnoses Prediabetes Morbid obesity with BMI of 40.0-44.9, adult (HCC) Procedures RI OFFICE/OUTPATIENT [facility] 60-74 MINUTES Jeremy Hallman APRN - SENIOR JAVA WEB APPLICATION DEVELOPER [address] [place] [address] [facility] [address] [place] [address] Referral ID Status Reason Start Date Expiration Date Visits Requested Visits Authorized [id number] Pending Review Specialty Services Required 05/20/2023 05/19/2024 1 1 [facility] for visit Narrative* Auth/Cert Specialty Diagnoses / Procedures Referred By Zenon dahl Referred To Contact Diagnoses Major depression Bipolar II disorder major depressive with onset (HCC) Referral ID Status Reason Start Date Expiration Date Visits Re quested Visits Authorized [id number] 1 1 [facility] Family History No Family History Records FoundNo Family History Records FoundNo Family History Records FoundNo Family History Records FoundNo Family History Records FoundNo Family History Records Found No data available for this section No Family History Records FoundNo Family History Records FoundNo Family History Records Found Advance Directives No Advanced Directives Records FoundDocuments on File Type Date Recorded 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 Advance Directives and Living Will Latest Code Status on File Code Status Date Activated Date Inactivated Comments Full Code 02/23/2022 5:05 PM 02/26/2022 4:21 PM Full Code - Unverified 02/15/2022 7:26 PM 02/19/2022 4:5 7 PM Latest Code Status on File Code Status Date Activated Date Inactivated Comments Full Code 02/23/2022 5:05 PM 02/26/2022 4:21 PM Full Code - Unverified 02/15/2022 7:26 PM 02/19/2022 4:5 7 PM Latest Code Status on File Date Activated Date Inactivated Comments 02/23/2022 5:05 PM 02/26/2022 4:21 PM Full Code - Unverified Date Activated Date Inactivated Comments 02/15/2022 7:26 PM 02/19/2022 4:57 PM Latest Code Status on File Date Activated Date Inactivated Comments 02/23/2022 5:05 PM 02/26/2022 4:21 PM Full Code - Unverified Date Activated Date Inactivated Comments 02/15/2022 7:26 PM 02/19/2022 4:57 PM Latest Code Status on File Code Status Date Activated Date Inactivated Comments Full Code 02/23/2022 5:05 PM 02/26/2022 4:21 PM Code Status History Code Status Date Activated Date Inactivated Comments Full Code - Unverified 02/15/2022 7:26 PM 02/19/2022 4:5 7 PM Latest Code Status on File Code Status Date Activated Date Inactivated Comments Full Code - Unverified 12/20/2022 3:29 PM Code Status History Code Status Date Activated Date Inactivated Comments Full Code 02/23/2022 5:05 PM 02/26/2022 4:21 PM Full Code - Unverified 02/15/2022 7:26 PM 02/19/2022 4:5 7 PM Latest Code Status on File Code Status Date Activated Date Inactivated Comments Full Code - Unverified 12/20/2022 3:29 PM 12/24/2022 3:1 3 PM Documents on File Type Date 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 Advance Directives and Livin g Will 05/29/2023 8:09 AM Documents on File Type Date Recorded 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 Advance Directives and Livin g Will 05/29/2023 8:09 AM Latest Code Status on File Code Status Date Activated Date Inactivated Comments Full Code 08/19/2023 8:14 AM 08/19/2023 11:24 AM Latest Code Status on File Code Status Date Activated Date Inactivated Comments Full Code 08/19/2023 8:14 AM 08/19/2023 11:24 AM Latest Code Status on File Code Status Date Activated Date Inactivated Comments Full Code - Unverified 09/17/2023 4:49 PM 09/20/2023 1 :57 PM Code Status History Code Status Date Activated Date Inactivated Comments Full Code - Unverified 12/20/2022 3:29 PM 12/24/2022 3:1 3 PM Full Code 02/23/2022 5:05 PM 02/26/2022 4:21 PM Full Code - Unverified 02/15/2022 7:26 PM 02/19/2022 4:5 7 PM Reason for Referral Specialty Diagnoses / Procedures Referred By Contac t Referred To Contact Sleep Medicine Diagnoses Sleep disorder Procedures Polysomnography Stacy Lu, KAMLESH - SENIOR JAVA WEB APPLICATION DEVELOPER [address] [place] [id number] [facility] [address] [place] [address] Referral ID Status Reason Start Date Expiration Date V isits Requested Visits Authorized [id number] Pending Review 08/29/2023 02/25/2024 1 1 Specialty Diagnoses / Procedures Referred By Contac t Referred To Contact Cardiology Diagnoses Shortness of breath PVC (premature ventricular contraction) Procedures Transthoracic echocardiogram (TTE) complete with contrast, bubble, strain, and 3D PRN RI ECHO TTHRC R-T 2D W/WOM-MODE COMPL SPEC&COLR D RI TTE W OR WO FOL WCON,DOPPLER Mikey Hutchinson PA-C [address] [place] [address] Referral ID Status Reason Start Date Expiration Date V isits Requested Visits Authorized [id number] Pending Review 08/14/2023 02/10/2024 1 1 Specialty Diagnoses / Procedures Referred By Contac t Referred To Contact Cardiology Diagnoses Shortness of breath PVC (premature ventricular contraction) Procedures Cardiac holter monitor (24 hours) Mikey Hutchinson PA-C [address] [place] [address] Referral ID Status Reason Start Date Expiration Date V isits Requested Visits Authorized [id number] Pending Review 08/14/2023 02/10/2024 1 1 Specialty Diagnoses / Procedures Referred By Contjairo t Referred To Contact Belgica Strange MD [facility] [place] [address] Referral ID Status Reason Start Date Expiration Date Visits Re quested Visits Authorized [id number] Closed 1 1 Additional Source Comments INFORMATION SOURCE (unrecogn ized section and content) DATE CREATED AUTHOR AUTHOR'S ORGANIZ ATION 05/27/2018 [facility] DATE CREATED AUTHOR AUTHOR'S ORGANIZ ATION 05/28/2018 [facility] DATE CREATED AUTHOR AUTHOR'S ORGANIZ ATION 03/30/2021 [facility] DATE CREATED AUTHOR AUTHOR'S ORGANIZ ATION 09/28/2023 [facility] DATE CREATED AUTHOR AUTHOR'S ORGANIZ ATION 10/06/2023 [facility] DATE CREATED AUTHOR AUTHOR'S ORGANIZ ATION 11/19/2023 [facility] [place] DATE CREATED AUTHOR AUTHOR'S ORGANIZ ATION 12/05/2023 [facility] DATE CREATED AUTHOR AUTHOR'S ORGANIZ ATION 12/18/2023 [facility] Scheduled Active and Recently Administ ered Medications (unrecognized section and content) PRN Medication Order 02/24/2022 02/25/2022 02/26/2022 albuterol inhaler 2 puff 2 puff, Inhalation, Every 6 hours PRN, wheezing, shortness of breath, Starting on Sat02/23/22 at 1557, SPACER REQUIRED FOR ADMINISTRATION aluminum-magnesium hydroxide-simethicone (MAALOX PLUS) 200-200-20 mg/5 mL suspension 30 mL 30 mL, Oral, Every 4 hours PRN, indigestion, Starting on Sat02/23/22 at 1703 1034 (Given - Provider: Cinthya Carbajal, RN) 1046 (Given - Provider: Cinthya Carbajal RN) benztropine (COGENTIN) injection 2 mg 2 mg, Intramuscular, Once as needed, acute dystonia, Starting on Sat02/23/22 at 1703, For 1 dose, [] and notify the physician. diphenhydrAMINE (BENADRYL) oral solid 25 mg 25 mg, Oral, Nightly PRN, sleep, Starting on Sat02/23/22 at 1707 2218 (Given - Provider: Ling Xiong RN) haloperidoL (HALDOL) tablet 5 mg(Linked Group 1) 5 mg, Oral, Every 4 hours PRN, agitation, Starting on Sat02/23/22 at 1703, Use oral route first, if tolerated. May cause QT interval prolongation. haloperidol lactate (HALDOL) injection 5 mg(Linked Group 1) 5 mg, Intramuscular, Every 4 hours PRN, agitation, Starting on Sat02/23/22 at 1703, Use oral route first, if tolerated. May cause QT interval prolongation. hydrOXYzine (ATARAX) tablet 50 mg 50 mg, Oral, Every 6 hours PRN, anxiety, Starting on Sat02/23/22 at 1703 0817 (Given - Provider: Cinthya Carbajal, DEZ)1531 (Given - Provider: Ling Xiong RN)2218 (Given - Provider: Ling Xiong RN) 1302 (Given - Provider: Deyanira Andres RN) ibuprofen (ADVIL,MOTRIN) tablet 600 mg 600 mg, Oral, Every 6 hours PRN, mild pain, Starting on Sat02/23/22 at 1703, Give with Food Do Not Crush or Chew if administering orally due to bitter taste. May be crushed if given via tube. 1035 (Given - Provider: Cinthya Carbajal RN)2218 (Given - Provider: Ling Xiong RN) 0542 (Given - Provider: Sobia Apodaca RN - Comment: as requested abdomen pain (6)) magnesium hydroxide (MOM) 400 mg/5 mL suspension 2,400 mg 2,400 mg (30 mL), Oral, Daily PRN, constipation, constipation, Starting on Sat02/23/22 at 1703 Linked Groups Order Group 1: haloperidoL (HALDOL) tablet 5 mgJump to med 5 mg, Oral, Every 4 hours PRN, agitation, Starting on Sat02/23/22 at 1703
Use oral route first, if tolerated. May cause QT interval prolongation.
Or haloperidol lactate (HALDOL) injection 5 mgJump to med 5 mg, Intramuscular, Every 4 hours PRN, agitation, Starting on Sat02/23/22 at 1703
Use oral route first, if tolerated. May cause QT interval prolongation.
Scheduled Medication Order 12/22/2022 12/23/2022 12/24/2022 clindamycin (CLEOCIN) capsule 300 mg 300 mg, Oral, 2 times daily, First dose on Sat12/21/22 at 2100, For 7 days, Indication: Other: (specify), Indication: bacterial vaginitis 0811 (Given - Provider: Sandy Ware RN)2030 (Given - Provider: Sary Mckenzie RN) 0923 (Given - Provider: Leland Hodge LPN)2113 (Given - Provider: Suzan Eduardo RN) 0921 (Given - Provider: Clemencia Santizo RN) lithium capsule 300 mg 300 mg, Oral, 3 times daily with meals, First dose on Sat12/21/22 at 0800 0811 (Given - Provider: Sandy Ware RN)1143 (Given - Provider: Sandy Ware RN)1636 (Given - Provider: Sandy Ware RN) 0848 (Given - Provider: Leland Hodge LPN)1127 (Given - Provider: Leland Hodge LPN)1711 (Given - Provider: Leland Hodge LPN) 0921 (Given - Provider: Clemencia Santizo RN)1245 (Given - Provider: Clemencia Santizo RN) paliperidone (INVEGA) 24 hr tablet 6 mg 6 mg, Oral, Every morning, First dose (after last modification) on 12/22/22 at 0900, DO NOT CRUSH OR CHEW. 0811 (Given - Provider: Sandy Ware RN) 0923 (Given - Provider: Leland Hodge LPN) 0934 (Given - Provider: Clemencia Santizo RN) PRN Medication Order 12/22/2022 12/23/2022 12/24/2022 aluminum-magnesium hydroxide-simethicone (MAALOX PLUS) 200-200-20 mg/5 mL suspension 30 mL 30 mL, Oral, Every 4 hours PRN, indigestion, Starting on Nelia 12/20/22 at 2000 benztropine (COGENTIN) injection 2 mg 2 mg, Intramuscular, Once as needed, acute dystonia, Starting on Nelia 12/20/22 at 2000, For 1 dose, [] and notify the physician. chlorproMAZINE (THORAZINE) injection 50 mg 50 mg, Intramuscular, Every 4 hours PRN, other, agitation, SECOND LINE agent for agitation, Starting on Nelia 12/20/22 at 2000, May give 30 minutes after first line agent if needed for agitation management. Contact provider if additional agitation management is necessary. May cause QT interval prolongation. hydrOXYzine (ATARAX) tablet 50 mg 50 mg, Oral, Every 6 hours PRN, anxiety, Starting on Nelia 12/20/22 at 2000 1019 (Given - Provider: Sandy Ware RN)1 (Given - Provider: Sary Mckenzie RN) ibuprofen (ADVIL,MOTRIN) tablet 600 mg 600 mg, Oral, Every 6 hours PRN, mild pain, Starting on Nelia 12/20/22 at 2000, Give with Food Do Not Crush or Chew if administering orally due to bitter taste. May be crushed if given via tube. magnesium hydroxide (MOM) 400 mg/5 mL suspension 2,400 mg 2,400 mg (30 mL), Oral, Daily PRN, constipation, constipation, Starting on Nelia 12/20/22 at 2000 OLANZapine (ZyPREXA) injection 5 mg(Linked Group 1) 5 mg, Intramuscular, Every 4 hours PRN, agitation, alternate IM FIRST LINE agent for agitation, Starting on Nelia 12/20/22 at 2000, If oral route is available, use oral first line agent. Use linked alternate IM agent (IF ordered) if oral route unavailable. If additional agitation medication is necessary within 30 minutes (prior to second line agent-IF ordered), contact provider. Do not give IM olanzapine within 2 hours of IM lorazepam. Maximum 30 mg of IM olanzapine total per 24 hours. May cause QT interval prolongation. If not already reconstituted, reconstitute 10 mg vial with 2.1 mL sterile water inj. Final concentration = 5 mg/mL. FOR IM USE ONLY. Use within 1 hr. 0918 (See Alternative - Provider: Sandy Ware RN) OLANZapine zydis (ZYPREXA) disintegrating tablet 5 mg(Linked Group 1) 5 mg, Oral, Every 6 hours PRN, agitation - ORAL FIRST LINE agent for agitation, Starting on Nelia 12/20/22 at 2000, If oral route is available, use oral first line agent. Use linked alternate IM agent (IF ordered) if oral route unavailable. If additional agitation medication is necessary within 30 minutes (prior to second line agent-IF ordered), contact provider. Formulation requires tablet remain in sealed package until immediately prior to dose being administered. May cause QT interval prolongation. 0918 (Given - Provider: Sandy Ware RN) Linked Groups Order Group 1: OLANZapine zydis (ZYPREXA) disintegrating tablet 5 mgJump to med 5 mg, Oral, Every 6 hours PRN, agitation - ORAL FIRST LINE agent for agitation, Starting on Nelia 12/20/22 at 2000
If oral route is available, use oral first line agent. Use linked alternate IM agent (IF ordered) if oral route unavailable. If additional agitation medication is necessary within 30 minutes (prior to second line agent-IF ordered), contact provider. Formulation requires tablet remain in sealed package until immediately prior to dose being administered. May cause QT interval prolongation.
Or OLANZapine (ZyPREXA) injection 5 mgJump to med 5 mg, Intramuscular, Every 4 hours PRN, agitation, alternate IM FIRST LINE agent for agitation, Starting on Nelia 12/20/22 at 2000
If oral route is available, use oral first line agent. Use linked alternate IM agent (IF ordered) if oral route unavailable. If additional agitation medication is necessary within 30 minutes (prior to second line agent-IF ordered), contact provider. Do not give IM olanzapine within 2 hours of IM lorazepam. Maximum 30 mg of IM olanzapine total per 24 hours. May cause QT interval prolongation. If not already reconstituted, reconstitute 10 mg vial with 2.1 mL sterile water inj. Final concentration = 5 mg/mL. FOR IM USE ONLY. Use within 1 hr.
Continuous Medication Order 08/17/2023 08/18/2023 08/19/2023 sodium chloride 0.9 % infusion 50 mL/hr, IntraVENous, Continuous, Starting on Sat08/19/23 at 0815, Preprocedure 0835 (New Bag - Prov ider: Vasile Lee CRNA)0845 (Continued by Anesthesia - Provider: Vasile Lee CRNA)0853 (Stopped - Provider: Vasile Lee CRNA) Scheduled Medication Order 09/18/2023 09/19/2023 09/20/2023 cloNIDine HCL (CATAPRES) tablet 0.1 mg 0.1 mg, Oral, At bedtime, First dose on Nelia 09/19/23 at 2100 2010 (Given - Provider: Sobia Apodaca RN - Comment: as ordered) lamoTRIgine (LAMICTAL) tablet 25 mg 25 mg, Oral, Daily, First dose on Sat09/20/23 at 0900 0826 (Given - Provider: Shilpa Marquez LPN) lithium capsule 450 mg (CANCELED) 450 mg, Oral, 2 times daily with meals, First dose on Sat09/17/23 at 1800 0907 (Given - Provider: Clary Wynn RN - Comment: Waiting for [place] levels to come back) lithium capsule 600 mg 600 mg, Oral, 2 times daily with meals, First dose (after last modification) on Sat09/18/23 at 1700 1655 (Given - Provider: Clary Wynn RN) 0801 (Given - Provider: Leland Hodge LPN)165 (Given - Provider: Leland Hodge LPN) 08 (Given - Provider: Shilpa Marquez LPN) lurasidone (LATUDA) tablet 40 mg (CANCELED) 40 mg, Oral, Daily with dinner, First dose on Sat09/18/23 at 1700, Take with food. Administer with a meal containing at least 350 calories. 1654 (Given - Provider: Clary Wynn RN) 165 (Given - Provider: Leland Hodge LPN) lurasidone (LATUDA) tablet 60 mg 60 mg, Oral, Daily with dinner, First dose (after last modification) on Sat09/20/23 at 1700, Take with food. Administer with a meal containing at least 350 calories. uzyfkmdb-onpo-VX-calcium -mins 9 mg iron-400 mcg tablet 1 tablet 1 tablet, Oral, Daily, First dose on Sat09/18/23 at 1230 1224 (Given - Provider: Clary Wynn RN) 08 (Given - Provider: Leland Hodge LPN) 08 (Given - Provider: Shilpa Marquez LPN) propranoloL (INDERAL) tablet 20 mg 20 mg, Oral, 2 times daily, First dose on Sat09/18/23 at 1530 1655 (Given - Provider: Clary Wynn RN) 08 (Given - Provider: Leland Hodge LPN)2009 (Given - Provider: Sobia Apodaca RN - Comment: as ordered) 825 (Given - Provider: Shilpa Marquez LPN) topiramate (TOPAMAX) tablet 25 mg 25 mg, Oral, Every evening, First dose on Sat09/18/23 at 2100, CATEGORY D HAZARDOUS DRUG use safe handling precautions. Use reference link to view PPE guidelines. Minimize crushing/splitting only to situations where clinically necessary. Do Not Crush or Chew if administering orally due to bitter taste. 2040 (Given - Provider: Elena Chavez RN) 2009 (Given - Provider: Sobia Apodaca RN - Comment: as ordered) topiramate (TOPAMAX) tablet 50 mg 50 mg, Oral, Daily, First dose on Sat09/18/23 at 1230, CATEGORY D HAZARDOUS DRUG use safe handling precautions. Use reference link to view PPE guidelines. Minimize crushing/splitting only to situations where clinically necessary. Do Not Crush or Chew if administering orally due to bitter taste. 1224 (Given - Provider: Clary Wynn RN) 0802 (Given - Provider: Leland Hodge LPN) 0826 (Given - Provider: Shilpa Marquez LPN) PRN Medication Order 09/18/2023 09/19/2023 09/20/2023 acetaminophen (TYLENOL) tablet 650 mg 650 mg, Oral, Every 4 hours PRN, mild pain, Starting on Sat09/17/23 at 1648 1700 (Given - Provider: Leland Hodge LPN - Comment: Headache) albuterol inhaler 2 puff 2 puff, Inhalation, Every 6 hours PRN (RT), wheezing, shortness of breath, Starting on Sat09/18/23 at 1032, SPACER REQUIRED FOR ADMINISTRATION aluminum-magnesium hydroxide-simethicone (MAALOX PLUS) 200-200-20 mg/5 mL suspension 30 mL 30 mL, Oral, Every 4 hours PRN, indigestion, Starting on Sat09/17/23 at 1646 benztropine (COGENTIN) injection 2 mg 2 mg, Intramuscular, Once as needed, acute dystonia, Starting on Sat09/17/23 at 1646, For 1 dose, [] and notify the physician. chlorproMAZINE (THORAZINE) injection 50 mg 50 mg, Intramuscular, 3 times daily PRN, other, agitation, SECOND LINE agent for agitation, Starting on Sat09/17/23 at 1648, May give 30 minutes after first line agent if needed for agitation management. Contact provider if additional agitation management is necessary. May cause QT interval prolongation. haloperidoL (HALDOL) tablet 5 mg(Linked Group 1) 5 mg, Oral, Every 4 hours PRN, agitation, ORAL FIRST LINE agent for agitation, Starting on Sat09/17/23 at 1648, If oral route is available, use oral first line agent. Use linked IM agent (IF ordered) if oral route unavailable. If additional agitation medication is necessary within 30 minutes (prior to second line agent-IF ordered), contact provider. May cause QT interval prolongation. haloperidol lactate (HALDOL) injection 5 mg(Linked Group 1) 5 mg, Intramuscular, Every 4 hours PRN, agitation, alternate IM FIRST LINE agent for agitation, Starting on Sat09/17/23 at 1648, If oral route is available, use oral first line agent. Use linked IM agent (IF ordered) if oral route unavailable. If additional agitation medication is necessary within 30 minutes (prior to second line agent-IF ordered), contact provider. May cause QT interval prolongation. hydrOXYzine (ATARAX) tablet 50 mg 50 mg, Oral, Every 6 hours PRN, anxiety, Starting on Sat09/17/23 at 1646 0907 (Given - Provider: Clary Wynn, RN) 0131 (Given - Provider: Sobia Apodaca RN - Comment: as requested)1053 (Given - Provider: Leland Hodge LPN)1911 (Given - Provider: Indira Dumont RN) LORazepam (ATIVAN) tablet 1 mg 1 mg, Oral, 2 times daily PRN, anxiety, Starting on Sat09/17/23 at 1646 magnesium hydroxide (MOM) 400 mg/5 mL suspension 2,400 mg 2,400 mg (30 mL), Oral, Daily PRN, constipation, constipation, Starting on Sat09/17/23 at 1646 SUMAtriptan (IMITREX) tablet 25 mg 25 mg, Oral, As needed, migraine, Starting on Sat09/18/23 at 1023, May repeat dose in 2 hours if no relief. Do not exceed 200 mg in 24 hours. Linked Groups Order Group 1: haloperidoL (HALDOL) tablet 5 mgJump to med 5 mg, Oral, Every 4 hours PRN, agitation, ORAL FIRST LINE agent for agitation, Starting on Sat09/17/23 at 1648
If oral route is available, use oral first line agent. Use linked IM agent (IF ordered) if oral route unavailable. If additional agitation medication is necessary within 30 minutes (prior to second line agent-IF ordered), contact provider. May cause QT interval prolongation.
Or haloperidol lactate (HALDOL) injection 5 mgJump to med 5 mg, Intramuscular, Every 4 hours PRN, agitation, alternate IM FIRST LINE agent for agitation, Starting on Sat09/17/23 at 1648
If oral route is available, use oral first line agent. Use linked IM agent (IF ordered) if oral route unavailable. If additional agitation medication is necessary within 30 minutes (prior to second line agent-IF ordered), contact provider. May cause QT interval prolongation.
Care Team (unrecognized sect ion and content) Customer Solutions Supervisor Relationship Specialty Start Date End Date No, [facility] PCP - General 04/05/22 Customer Solutions Supervisor Relationship Specialty Start Date End Date No, [facility] PCP - General 04/05/22 Customer Solutions Supervisor Relationship Specialty Start Date End Date No, [facility] PCP - General 04/05/22 Customer Solutions Supervisor Relationship Specialty Start Date End Date No, [facility] PCP - General 04/05/22 Customer Solutions Supervisor Relationship Specialty Start Date End Date No, [facility] PCP - General 04/05/22 Customer Solutions Supervisor Relationship Specialty Start Date End Date No, [facility] PCP - General 04/05/22 Customer Solutions Supervisor Relationship Specialty Start Date End Date Debra Smith, STEAM OVEN OPERATOR.SENIOR JAVA WEB APPLICATION DEVELOPER [address] [facility] [place] [address] PCP - General Family Medicine 09/19/22 Customer Solutions Supervisor Relationship Specialty Start Date End Date No, [facility] PCP - General 04/05/22 Customer Solutions Supervisor Relationship Specialty Start Date End Date Magda Kelly [address] [place] [address] PCP - General 04/17/23 Ciaran Fritz MD [address] [place] [address] [address] [place] [address] Surgeon General Surgery 04/25/23 Customer Solutions Supervisor Relationship Specialty Start Date End Date Magda Kelly [address] [place] [address] PCP - General 04/17/23 Ciaran Fritz MD [address] [place], [place] [id number] Surgeon General Surgery 04/25/23 Customer Solutions Supervisor Relationship Specialty Start Date End Date RobinMagda [address] [place] [phone] PCP - General 04/17/23 Ciaran Fritz MD [address] [place], [place] [id number] Surgeon General Surgery 04/25/23 Customer Solutions Supervisor Relationship Specialty Start Date End Date Robin Magda [address] [place] [phone] PCP - General 04/17/23 Ciaran Fritz MD [address] [place], [place] [id number] Surgeon General Surgery 04/25/23 Customer Solutions Supervisor Relationship Specialty Start Date End Date Magda Kelly [address] [place] [phone] PCP - General 04/17/23 Ciaran Fritz MD [address] [place] [address] Surgeon General Surgery 04/25/23 Customer Solutions Supervisor Relationship Specialty Start Date End Date Robin Magda [address] [place] [phone] PCP - General 04/17/23 Ciaarn Fritz MD [address] [place], [place] [id number] Surgeon General Surgery 04/25/23 Customer Solutions Supervisor Relationship Specialty Start Date End Date Magda Kelly [address] [place] [phone] PCP - General 04/17/23 Ciaran Fritz MD [address] [place], [place] [id number] Surgeon General Surgery 04/25/23 Customer Solutions Supervisor Relationship Specialty Start Date End Date Magda Kelly [address] [place] [phone] PCP - General 04/17/23 Ciaran Fritz MD [address] [place], [place] [id number] Surgeon General Surgery 04/25/23 Customer Solutions Supervisor Relationship Specialty Start Date End Date No, [facility] PCP - General 04/05/22 Customer Solutions Supervisor Relationship Specialty Start Date End Date No, [facility] PCP - General 04/05/22 Customer Solutions Supervisor Relationship Specialty Start Date End Date Magda Kelly [address] [place] [phone] PCP - General 04/17/23 Ciaran Fritz MD [address] [place], [place] [id number] Surgeon General Surgery 04/25/23 Customer Solutions Supervisor Relationship Specialty Start Date End Date Magda Kelly [address] [place] [phone] PCP - General 04/17/23 Ciaran Fritz MD [address] [place], [place] [id number] Surgeon General Surgery 04/25/23 Customer Solutions Supervisor Relationship Specialty Start Date End Date Debra Smith APRN.CNP [address] [facility] [place] [address] PCP - General Family Medicine 09/19/22 Customer Solutions Supervisor Relationship Specialty Start Date End Date No, [facility] PCP - General 04/05/22 Customer Solutions Supervisor Relationship Specialty Start Date End Date No, [facility] PCP - General 04/05/22 Customer Solutions Supervisor Relationship Specialty Start Date End Date Magda Kelly [facility] [place] [phone] PCP - General 04/17/23 Ciaran Fritz MD [address] [place], [place] [id number] Surgeon General Surgery 04/25/23 Customer Solutions Supervisor Relationship Specialty Start Date End Date Magda Kelly [address] [place] [phone] PCP - General 04/17/23 Ciaran Fritz MD [address] [place] [address] [address] [place], [place] [phone] Surgeon General Surgery 04/25/23 Customer Solutions Supervisor Relationship Specialty Start Date End Date Magda Kelly [address] [place] [phone] PCP - General 04/17/23 Ciaran Fritz MD [address] [place], [place] [phone] Surgeon General Surgery 04/25/23 Customer Solutions Supervisor Relationship Specialty Start Date End Date Magda Kelly [address] [place] [phone] PCP - General 04/17/23 Ciaran Fritz MD [address] [place] [address] [address] [place], [place] [id number] Surgeon General Surgery 04/25/23 Customer Solutions Supervisor Relationship Specialty Start Date End Date Byron Kellyssica [address] [place] [phone] PCP - General 04/17/23 Ciaran Fritz MD [address] [place] [address] [address] [place], [place] [id number] Surgeon General Surgery 04/25/23 Customer Solutions Supervisor Relationship Specialty Start Date End Date Magda Kelly [address] [place] [phone] PCP - General 04/17/23 Ciaran Fritz MD [address] [place] [address] [address] [place], [place] [id number] Surgeon General Surgery 04/25/23 Customer Solutions Supervisor Relationship Specialty Start Date End Date Magda Kelly [address] [place] [phone] PCP - General 04/17/23 Ciaran Fritz MD [address] [place], [place] [id number] Surgeon General Surgery 04/25/23 Customer Solutions Supervisor Relationship Specialty Start Date End Date Magda Kelly [address] [place] [phone] PCP - General 04/17/23 Ciaran Fritz MD [address] [place], [place] [id number] Surgeon General Surgery 04/25/23 Customer Solutions Supervisor Relationship Specialty Start Date End Date Magda Kelly [address] [place] [phone] PCP - General 04/17/23 Ciaran Fritz MD [address] [place] [address] Surgeon General Surgery 04/25/23 Customer Solutions Supervisor Relationship Specialty Start Date End Date RobinMagda [address] [place] [phone] PCP - General 04/17/23 Ciaran Fritz MD [address] [place] [address] Surgeon General Surgery 04/25/23 Customer Solutions Supervisor Relationship Specialty Start Date End Date No, [facility] PCP - General 04/05/22 Customer Solutions Supervisor Relationship Specialty Start Date End Date Magda Kelly [address] [place] [phone] PCP - General 04/17/23 Ciaran Fritz MD [address] [place] [address] Surgeon General Surgery 04/25/23 Customer Solutions Supervisor Relationship Specialty Start Date End Date Robin Magda [address] [place] [phone] PCP - General 04/17/23 Ciaran Fritz MD [address] [place] [address] Surgeon General Surgery 04/25/23 Customer Solutions Supervisor Relationship Specialty Start Date End Date Magda Kelly [address] [facility] [place] [phone] PCP - General 04/17/23 Ciaran Fritz MD [address] [facility] [address] [place], [place] [id number] Surgeon General Surgery 04/25/23 Reason for Visit (unrecogniz ed section and content) Reason Onset Date Comments Medication Refill 08/15/2022 Reason Onset Date Comments Medication Refill 08/15/2022 Reason Onset Date Comments Medication Refill 12/05/2022 Reason Comments Follow-up Reason Comments Suicidal Specialty Diagnoses / Procedures Referred By Contac t Referred To Contact Diagnoses Schizoaffective disorder, bipolar type (HCC) Acute UTI Depression, unspecified depression type Schizoaffective disorder (HCC) Referral ID Status Reason Start Date Expiration Date Visits Re quested Visits Authorized [id number] 1 1 Reason Comments Headache Pt reported neck, th roat pain x1 day. Reason Comments Surgical Consult NEW Specialty Diagnoses / Procedures Referred By Contac t Referred To Contact Bariatrics Diagnoses Morbid (severe) obesity due to excess calories (HCC) Procedures Eval & treat [facility] [address] [facility] [address] [place] [address] Referral ID Status Reason Start Date Expiration Date V isits Requested Visits Authorized [id number] Pending Review 04/17/2023 10/14/2023 1 1 Reason Onset Date Comments Financial File 05/01/2023 Financial File 2 023 Surgery Scheduling 05/01/2023 Initial sched uling-orders placed Reason Onset Date Comments Financial File 05/01/2023 Financial File 2 023 Surgery Scheduling 05/01/2023 Initial sched uling-orders placed Reason Onset Date Comments Abnormal Lab 05/29/2023 Low Vitamin d, l ow normal B12 Reason Comments Weight Loss D/E NEW 1of 3 Reason Comments Nutrition Counseling BNA Initial Reason Onset Date Comments Medication Refill 07/05/2023 Reason Comments Weight Loss D/E FU 2 of 3 Reason Comments EGD EGD order Reason Comments Left Knee Pain Left knee pain and s welling x 1 day-cannot recall an injury Reason Comments Weight Loss D/E 3/3 Reason Comments Cardiac Clearance Specialty Diagnoses / Procedures Referred By Contac t Referred To Contact Cardiology Diagnoses Prediabetes Morbid obesity with BMI of 40.0-44.9, adult (HCC) Procedures RI OFFICE/OUTPATIENT NEW HIGH MDM 60-74 MINUTES Jeremy Hallman R, STEAM OVEN OPERATOR - SENIOR [employer]AVA WEB APPLICATION DEVELOPER [address] [facility] [place] [address] [facility] [address] [place] [address] Referral ID Status Reason Start Date Expiration Date Visits Requested Visits Authorized [id number] Pending Review Specialty Services Required 05/20/2023 05/19/2024 1 1 Reason Onset Date Comments OTHER 08/15/2023 Specialty Diagnoses / Procedures Referred By Contac t Referred To Contact Diagnoses Gastro-esophageal reflux disease without esophagitis Gastro-esophageal reflux disease without esophagitis [K21.9] Procedures RI EGD TRANSORAL BIOPSY SINGLE/MULTIPLE EGD WITH BIOPSY Ciaran Fritz MD [address] [facility] [address] [place] [address] [facility] [address] [facility] [address] [place] [address] Referral ID Status Reason Start Date Expiration Date Visits Re quested Visits Authorized [id number] 1 1 Reason Onset Date Comments Abdominal Pain 08/20/2023 Specialty Diagnoses / Procedures Referred By Contac t Referred To Contact Cardiology Diagnoses Shortness of breath PVC (premature ventricular contraction) Procedures Cardiac holter monitor (24 hours) Mikey Hutchinson, SEMAJC [address] [place] [address] Referral ID Status Reason Start Date Expiration Date Visits Re quested Visits Authorized [id number] Closed 08/14/2023 02/10/2024 1 1 Reason Onset Date Comments Pageout 08/20/2023 Reason Comments New Patient Specialty Diagnoses / Procedures Referred By Contac t Referred To Contact Pulmonary Disease / Pulmonology Diagnoses Prediabetes Morbid obesity with BMI of 40.0-44.9, adult (HCC) Procedures RI OFFICE/OUTPATIENT NEW HIGH MDM 60-74 MINUTES Jeremy Hallman, STEAM OVEN OPERATOR - SENIOR JAVA WEB APPLICATION DEVELOPER [address] [place] [address] [facility] [address] [place] [address] Referral ID Status Reason Start Date Expiration Date Visits Requested Visits Authorized [id number] Pending Review Specialty Services Required 05/20/2023 05/19/2024 1 1 Reason Comments Weight Loss D/E final 4 of 3 Specialty Diagnoses / Procedures [facility] To Contact Diagnoses Bipolar disorder, unspecified Schizoaffective disorder, bipolar type (HCC) Referral ID Status Reason Start Date Expiration Date Visits Re quested Visits Authorized [id number] 1 1 Reason Onset Date Comments Abnormal Lab 08/21/2023 + H pylori Specialty Diagnoses / Procedures Referred By Contac t Referred To Contact Cardiology Diagnoses Shortness of breath PVC (premature ventricular contraction) Procedures Transthoracic echocardiogram (TTE) complete with contrast, bubble, strain, and 3D PRN RI ECHO TTHRC R-T 2D W/WOM-MODE COMPL SPEC&COLR D RI TTE W OR WO FOL WCON,DOPPLER Mikey Hutchinson, PAEddie [address] [place] [address] Referral ID Status Reason Start Date Expiration Date Visits Re quested Visits Authorized [id number] Closed 08/14/2023 02/10/2024 1 1 Source Comments (unrecognize d section and content) In the event this informatio n is protected by the Federal Confidentiality of Alcohol and Drug Abuse Patient Records regulations: The Federal rules restrict any use of the information to criminally investigate or prosecute any alcohol or drug abuse patient.[facility] the event this information is protected by the Federal Confidentiality of Alcohol and Drug Abuse Patient Records regulations: The Federal rules restrict any use of the information to criminally investigate or prosecute any alcohol or drug abuse patient.[facility] FOR RECORDS PERTAINING TO PATIENTS WHO ARE OR HAVE BEEN ENROLLED IN A CHEMICAL DEPENDENCY/SUBSTANCEABUSE PROGRAM, SOME INFORMATION MAY BE OMITTED. This clinical summary was aggregated from multiple sources. Caution should be exercised in using it in the provision of clinical care. This summary normalizes information from multiple sources, and as a consequence, information in this document may materially change the coding, format and clinical context of patient data. In addition, data may be omitted in some cases. CLINICAL DECISIONS SHOULD BE BASED ON THE PRIMARY CLINICAL RECORDS. [facility] [employer] [facility]. provides no warranty or guarantee of the accuracy or completeness of information in this document.
[2023-12-30 12:38] LABS: Internal QC Validated? YES +Cl - CLEAR BKGD; Pregnancy, Serum, hCG Quali. NEGATIVE Negative
[2023-12-30 13:26] VITALS: RESP 16
== END 2023-12-30 13:27 | disposition home or self-care (01) ==
PROVIDERS: Emergency Provider Emergency Medicine; Visit Provider Emergency Medicine
DX: R19.7 Diarrhea, unspecified (principal); R55 Syncope and collapse
CPT/HCPCS: 80048; 84703; 85025; 87631; 93005; 96361; 96374; 99283; J7030; A4216; J2405

== ENCOUNTER 2024-01-29 19:46 | Emergency (ER) | payer MEDICAID, SELFPAY ==
[2024-01-29 19:47] VITALS: BP 145/97; PULSE 102; RESP 16; TEMP 36.8; O2SAT 100; BMI 40.8
--- NOTE | 2024-01-29 20:09 | EDS_ITS ---
HPI HPI - Psych History of Present Illness Chief Complaint: Asthma Informant: patient Onset/Context/Timing Onset: Weeks Narrative Narrative: Patient presents secondary to overwhelming feelings of anxiety. She lost her father in late December and since that time has had increased problems with anxiety. She states her primary care physician is trying to hold off on writing her new medication as she is undergoing some gene testing to see what would be the best fit for her. In the meantime she has lost her father and is having trouble dealing with the anxiety. She states that she has very poor sleep, only 3 to 4 hours a night that is broken. She is not eating or drinking much. She has lost about 14 pounds. She denies suicidal homicidal ideation. She is on depression medication but nothing for anxiety. On review of records it appears that she was given a short course of alprazolam in late December and some Ativan last fall. She states shots of the medication seem to help her, but the oral pills do not seem to do much. [facility] Medical History Asthma Bipolar 2 disorder delivery delivered Depression Diabetes Generalized anxiety disorder Migraine PTSD (post-traumatic stress disorder) TBI (traumatic brain injury) Home Medications fluoxetine 20 mg capsule (Prozac) 20 mg PO DAILY 02/22/22 [History Last Taken Unknown] lithium carbonate 600 mg capsule 600 mg PO BID 08/20/23 [History Last Taken Unknown] propranolol 20 mg tablet 20 mg PO BID 08/20/23 [History Last Taken Unknown] topiramate 50 mg tablet 50 mg PO QHS 08/20/23 [History Last Taken Unknown] cholecalciferol (vitamin D3) 25 mcg (1,000 unit) tablet (Vitamin D3) 25 mcg PO DAILY 09/02/23 [History Last Taken Unknown] trazodone 50 mg tablet 50 mg PO QHS 09/02/23 [History Last Taken Unknown] potassium chloride 20 mEq tablet,extended release 40 meq (2 x 20 mEq) PO DAILY #10 tabs 09/15/23 [Rx Last Taken Unknown] lurasidone 20 mg tablet 20 mg PO QHS 09/17/23 [History Last Taken Unknown] cariprazine 1.5 mg capsule (Vraylar) mg 01/29/24 [History Last Taken Unknown] cetirizine 10 mg tablet mg 01/29/24 [History Last Taken Unknown] fluvoxamine 100 mg tablet mg 01/29/24 [History Last Taken Unknown] fluvoxamine 50 mg tablet mg 01/29/24 [History Last Taken Unknown] hydroxyzine pamoate 50 mg capsule 50 mg PO BID PRN anxiety #14 caps 01/29/24 [Rx Last Taken Unknown] lamotrigine 100 mg tablet 100 mg PO 01/29/24 [History Last Taken Unknown] lorazepam 1 mg tablet (Ativan) 1 mg PO BID PRN anxiety #20 tabs 01/29/24 [Rx Last Taken Unknown] lurasidone 80 mg tablet mg 01/29/24 [History Last Taken Unknown] metformin 500 mg tablet,extended release 24 hr mg PO 01/29/24 [History Last Taken Unknown] pantoprazole 40 mg tablet,delayed release mg PO 01/29/24 [History Last Taken Unknown] trazodone 100 mg tablet mg 01/29/24 [History Last Taken Unknown] Allergy/AdvReac Type Severity Reaction Status Date / Time Penicillins Allergy Rash Verified 01/29/24 19:50 fluoxetine [From Prozac] AdvReac Mild Other Verified 01/29/24 19:50 Surgical History H/O section History of appendectomy Social History adopted: Yes Smoking Status: Never smoker Electronic Cigarette Use: not used second hand exposure: No alcohol intake: never substance use type: does not use ROS ROS ED Constitutional Constitutional ED: Denies chills or fever(s) Eyes Eyes: Denies change in vision ENT ENT ED: Denies rhinorrhea or sore throat Cardiovascular Cardiovascular: Reports chest pain; Denies palpitations Respiratory/Chest Respiratory/Chest: Reports dyspnea; Denies cough Gastrointestinal Gastrointestinal: Reports nausea; Denies abdominal pain, diarrhea or vomiting Genitourinary Genitourinary ED: Denies dysuria Musculoskeletal Musculoskeletal: Denies back pain or extremity pain Integumentary Denies Abrasions or rash Neurologic Neurologic: Denies headache(s) or weakness Psychiatric Psychiatric: Reports anxiety and depression; Denies suicidal ideation Allergic/Immunologic Allergic/Immunologic ED: Denies lip swelling or urticaria EXAM Physical Exam Const Vital Signs: 01/29/24 19:47 01/29/24 21:40 Temperature 98.2 F Temperature Source Temporal Pulse Rate 102 H Respiratory Rate 16 Respiratory Effort Normal Non-Labored Respiratory Depth Normal Respiratory Pattern Normal Blood Pressure 145/97 H Blood Pressure Mean 113 Pulse Ox 100 Oxygen Delivery Method Room Air Positive well nourished and well developed General Appearance ED: well developed HEENT Reports moist mucous membranes Eyes EOMs intact bilaterally Resp normal respiratory effort and clear to auscultation bilaterally Cardio Rate: regular rate Rhythm: regular rhythm GI non-tender Palpation: soft Extremity normal to inspection Neuro oriented x3 and no sensory deficits noted Motor Exam: strength 5/5 throughout Psych Appearance: well kempt Activity / Motor Behavior: appropriate eye contact Speech: pressured Mood & Affect: anxious Thought Content: No suicidality Skin Lesions: no lesions Rashes: no rashes MDM MDM MDM Narrative Medical decision making narrative: Patient was given 2 mg of IM Ativan. Will have crisis come speak with the patient. She does report that she has been in the IOP program previously but not since the loss of her father. History & Record Review Discussion w/independent historian: Patient and Significant other Treatment and Re-Evaluation Narrative: Patient was seen and evaluated by crisis. We were able to develop a safety plan for her. She still has some anxiety after her Ativan but does seem to be improved. I will also give her some Vistaril as she received her Ativan 2 and half hours ago. Patient will continue her treatment with [facility], but I will also give her information for [facility] as well as counseling center. I will write her prescriptions for both benzos as well as Vistaril. She understands that she cannot take these together. Return instructions were provided. Discharge Plan Triage Chief Complaint: Asthma ED Provider: Tiny Townsend Dx/Rx/DC Orders Clinical Impression: Anxiety Instructions: ED Anxiety Reaction, ED Grief Reaction Prescriptions: New lorazepam [Ativan] 1 mg tablet 1 mg PO BID PRN (Reason: anxiety) Qty: 20 0RF hydroxyzine pamoate 50 mg capsule 50 mg PO BID PRN (Reason: anxiety) Qty: 14 0RF No Action cholecalciferol (vitamin D3) [Vitamin D3] 25 mcg (1,000 unit) tablet 25 mcg PO DAILY trazodone 50 mg tablet 50 mg PO QHS fluoxetine [Prozac] 20 mg Capsule 20 mg PO DAILY topiramate 50 mg tablet 50 mg PO QHS lithium carbonate 600 mg capsule 600 mg PO BID propranolol 20 mg tablet 20 mg PO BID potassium chloride 20 mEq tablet extended release 40 meq PO DAILY Qty: 10 0RF lurasidone 20 mg tablet 20 mg PO QHS cetirizine 10 mg tablet fluvoxamine 100 mg tablet fluvoxamine 50 mg tablet lamotrigine 100 mg tablet 100 mg PO Vraylar 1.5 mg capsule trazodone 100 mg tablet pantoprazole 40 mg tablet,delayed release (DR/EC) PO metformin 500 mg tablet extended release 24 hr PO lurasidone 80 mg tablet [facility] Referrals: [facility] [Group of Physicians] - As Needed Duong Turcios DO [Med Staff - [employer]] - [facility] - Disposition Disposition: Home, Self Care
[2024-01-29] MEDS: Lorazepam 2 MG/ML WCH Syringe IM (20:24)
[2024-01-29] MEDS: hydrOXYzine PAM 25 MG Capsule 50 MG PO (23:15)
[2024-01-29 23:18] VITALS: BP 146/87; PULSE 64; RESP 12; TEMP 36.6; O2SAT 100
== END 2024-01-29 23:21 | disposition home or self-care (01) ==
PROVIDERS: Emergency Provider Emergency Medicine; Visit Provider Emergency Medicine
DX: F41.9 Anxiety disorder, unspecified (principal); J45.909 Unspecified asthma, uncomplicated
CPT/HCPCS: 99285

== ENCOUNTER 2024-02-24 16:59 | Emergency (ER) | payer MEDICAID, SELFPAY ==
[2024-02-24 17:00] VITALS: BP 153/112; PULSE 100; RESP 16; TEMP 36.4; O2SAT 100; BMI 39.4
--- NOTE | 2024-02-24 17:40 | EX.ED.VIS.PS ---
HPI HPI - Psych History of Present Illness Chief Complaint: Anxiety Detail of Chief Complaint: Depression and anxiety Informant: patient Narrative Narrative: Patient presents seeking help for depression and anxiety. She recently started taking her psychiatric medications because she had read about a new injectable medicine used to treat schizophrenia. She reported has to be off of her meds for several weeks in order to be eligible for this injection. She has had increased problems with anxiety and depression after the loss of her father recently. She states she has lost about 20 pounds in the last 2 months and is not eating or drinking. She is also had significant problems with sleep. She states she is also in the process of leaving her and has had increased stress with that. She states that she has been calling her providers stating that she needs help, but they essentially told her that they have tried all the medications they can and do not have anything else to offer her. [facility] Medical History Asthma Bipolar 2 disorder delivery delivered Depression Diabetes Generalized anxiety disorder Migraine PTSD (post-traumatic stress disorder) TBI (traumatic brain injury) Home Medications NK 02/24/24 [History Last Taken Unknown] Allergy/AdvReac Type Severity Reaction Status Date / Time Penicillins Allergy Rash Verified 02/24/24 17:00 fluoxetine [From Prozac] AdvReac Mild Other Verified 02/24/24 17:00 Surgical History H/O section History of appendectomy Social History adopted: Yes Smoking Status: Never smoker Electronic Cigarette Use: not used second hand exposure: No alcohol intake: never substance use type: does not use ROS ROS ED Constitutional Constitutional ED: Denies chills or fever(s) Eyes Eyes: Denies discharge from eye(s) ENT ENT ED: Denies discharge from eye(s), rhinorrhea or sore throat Cardiovascular Cardiovascular: Denies chest pain or palpitations Respiratory/Chest Respiratory/Chest: Denies cough or dyspnea Gastrointestinal Gastrointestinal: Denies abdominal pain, nausea or vomiting Genitourinary Genitourinary ED: Denies dysuria Musculoskeletal Musculoskeletal: Denies back pain or extremity pain Integumentary Denies Abrasions or rash Neurologic Neurologic: Reports headache(s); Denies weakness Psychiatric Psychiatric: Reports anxiety and depression; Denies suicidal ideation Allergic/Immunologic Allergic/Immunologic ED: Denies lip swelling or urticaria EXAM Physical Exam Const Vital Signs: 02/24/24 17:00 02/24/24 19:00 02/24/24 21:00 Temperature 97.5 F L 98.1 F Temperature Source Temporal Oral Pulse Rate 100 87 81 Respiratory Rate 16 16 16 Blood Pressure 153/112 H 135/66 H 128/72 H Blood Pressure Mean 125 89 90 Pulse Ox 100 100 99 Oxygen Delivery Method Room Air Room Air Room Air Positive well nourished and well developed General Appearance ED: well developed HEENT Reports moist mucous membranes Eyes EOMs intact bilaterally Resp normal respiratory effort and clear to auscultation bilaterally Cardio Rate: regular rate Rhythm: regular rhythm GI non-tender Palpation: soft Extremity normal to inspection Neuro oriented x3 and no sensory deficits noted Sensorium / Orientation: alert Motor Exam: strength 5/5 throughout Psych mental status grossly normal and cooperative Appearance: well kempt Attitude: other Frustrated Activity / Motor Behavior: appropriate eye contact Mood & Affect: depressed Thought Content: No suicidality and No homicidality Skin Lesions: no lesions Rashes: no rashes MDM MDM MDM Narrative Medical decision making narrative: Labwork for psychiatric clearance obtained. History & Record Review Discussion w/independent historian: Patient Additional record(s) reviewed:: Prior ED visit and Prior labs Lab Data Attestation: I reviewed the patient's lab results. Labs: Laboratory Results - last 24 hr 02/24/24 02/24/24 18:20 18:30 WBC 9.6 RBC 4.56 Hgb 12.4 Hct 39.5 MCV 86.6 MCH 27.2 MCHC 31.4 L RDW Std Deviation 41.8 RDW Coeff of Raj 13.2 Plt Count 457 H MPV 9.5 Immature Gran % (Auto) 0.200 Neut % (Auto) 63.8 Lymph % (Auto) 28.2 [place] % (Auto) 5.2 Eos % (Auto) 2.3 Baso % (Auto) 0.3 Absolute Neuts (auto) 6.1 Absolute Lymphs (auto) 2.69 Nucleated RBC % 0 Sodium 137 Potassium 3.2 L Chloride 108 H Carbon Dioxide 23.0 Anion Gap 6 BUN 11 Creatinine 0.83 Estim Creat Clear Calc 98.57 Est GFR (MDRD) Af Amer 109 Est GFR (MDRD) Non-Af 90 BUN/Creatinine Ratio 13.2 Glucose 96 Calcium 9.0 Serum , Qual NEGATIVE Urine Opiates Screen NEGATIVE Urine Methadone Screen NEGATIVE Ur Barbiturates Screen NEGATIVE Ur Phencyclidine Scrn NEGATIVE Ur Amphetamines Screen NEGATIVE MDMA (Ecstasy) Screen NEGATIVE U Benzodiazepines Scrn NEGATIVE Urine Cocaine Screen NEGATIVE U Cannabinoids Screen POSITIVE H Ur Drug Screen Comment Ethyl Alcohol < 3.0 Treatment and Re-Evaluation Narrative: CBC was normal white count 9.6 with a hemoglobin of 12.4. Differential unremarkable. Chemistry studies significant only for slightly low potassium at 3.2. test is negative. Tox screen is positive only for cannabinoids. EtOH is negative. Staff from [facility] came in and spent a significant mount of time with the patient. She offered voluntary placement as the patient did not feel she could adequately care for herself at home. She would like to try to continue with outpatient options. She declines a prescription tonight. She states she does feel better after talking with everyone here [facility] and has an appointment with her therapist tomorrow. She will also go to [facility] tomorrow for assistance. She understands that she can come back at any time. I did advise her that we still have the option of getting inpatient treatment for her if her current treatment route is not helping her symptoms. She voices understanding and agreement. [facility] Discharge Plan Triage Chief Complaint: Anxiety ED Provider: Tiny Townsend Dx/Rx/DC Orders Clinical Impression: Anxiety Instructions: ED Anxiety Reaction Prescriptions: No Action NK Primary Care Provider: Faith Salazar Referrals: [facility] Faith Stevens [Primary Care Provider] - Activity Restrictions/Additional Instructions: Follow-up with your therapist tomorrow as scheduled. Disposition Disposition: Home, Self Care Discharge Date/Time: 02/24/24 22:10
[2024-02-24 18:29] LABS: Absolute Lymphocyte Count 2.69 X10^3/uL (0.83-4.51); Absolute Neutrophil Count 6.1 X10^3/uL (2.0-7.7); Basophil# 0.03 X10^3/uL; Basophil% 0.3 % (0-1); Eosinophil# 0.22 X10^3/uL; Eosinophils% 2.3 % (0-5); Hematocrit 39.5 % (37-47); Hemoglobin 12.4 g/dL (12.0-15.0); Lymphocyte # 2.69 X10^3/ul (0.83-4.51); Lymphocyte % 28.2 % (19-41); Mean Corp Hgb Conc 31.4 g/dL (32-36); Mean Corpuscular Hgb 27.2 pg (27.0-32.0); Mean Corpuscular Volume 86.6 fL (81-99); Mean Platelet Vol. 9.5 fl (6.2-12.0); Monocyte% 5.2 % (0-10); NRBC Flagged by Analyzer 0 % (0-5); Neutrophil # 6.09 X10^3/uL (2.7-7.7); Neutrophil % 63.8 % (47-70); Platelet Count 457 K/mm3 (150-450); RBC Distribution Width CV 13.2 % (11.6-14.6); RBC Distribution Width SD 41.8 fl (35.1-43.9); Red Blood Count 4.56 M/mm3 (4.2-5.4); White Blood Count 9.6 K/mm3 (4.4-11.0)
[2024-02-24 18:45] LABS: Anion Gap 6 (5-15); BUN 11 mg/dL (7-18); BUN/Creat Ratio 13.2 RATIO (10-20); Chloride 108 mmol/L (98-107); Creatinine, Serum 0.83 mg/dL (0.55-1.02); EST Glomerular Filtration Rate 90 mL/min (>60); Est Glom Filt Rate - Afr Amer 109 mL/min (>60); Estimated Creatinine Clearance 98.57 ml/min; Glucose 96 mg/dL (74-106); Potassium 3.2 mmol/L (3.5-5.1); Sodium Level 137 mmol/L (136-145)
[2024-02-24 18:50] LABS: Amphetamine Urine VISTA NEGATIVE (<1000 ng/mL); Barbiturate Urine VISTA NEGATIVE (< 200 ng/mL); Benzodiazepine Urine VISTA NEGATIVE (< 200 ng/mL); Cocaine Urine VISTA NEGATIVE (< 300 ng/mL); Ecstacy Urine VISTA NEGATIVE (< 500 ng/mL); Methadone Urine VISTA NEGATIVE (< 300 ng/mL); PCP Urine VISTA NEGATIVE (< 25 ng/mL); THC Urine VISTA POSITIVE (< 50 ng/mL); Vista UDS pH Range 5
[2024-02-24 18:50] LABS: Alcohol, Blood (Medical)-Serum < 3.0 mg/dL; Internal QC Validated? YES +Cl - CLEAR BKGD; Pregnancy, Serum, hCG Quali. NEGATIVE Negative
[2024-02-24 19:00] VITALS: BP 135/66; PULSE 87; RESP 16; TEMP 36.7; O2SAT 100
[2024-02-24 21:00] VITALS: BP 128/72; PULSE 81; RESP 16; O2SAT 99
== END 2024-02-24 22:10 | disposition home or self-care (01) ==
PROVIDERS: Emergency Provider Emergency Medicine; Visit Provider Emergency Medicine
DX: F41.9 Anxiety disorder, unspecified (principal); E11.9 Type 2 diabetes mellitus without complications
CPT/HCPCS: 80048; 80307; 80320; 84703; 85025; 99284; G0480

== ENCOUNTER 2024-05-12 03:58 | Emergency (ER) | payer MEDICAID, SELFPAY ==
[2024-05-12 03:58] VITALS: BP 149/76; PULSE 90; RESP 16; TEMP 36.6; O2SAT 98; BMI 39.1
--- NOTE | 2024-05-12 04:07 | ED.VIS.GI ---
HPI HPI - GI History of Present Illness Chief Complaint: Abd Pain Detail of Chief Complaint: Right flank pain. Informant: patient Abdominal Pain/Flank Pain Onset: Days Context: Gradual Onset Timing: Intermittent Quality: Aching Location: Right Flank Current Severity: Mild Maximum Severity: Moderate Worsened by: Nothing Relieved by: Nothing Nausea/Vomiting/Emesis GI Symptom: Positive for Nausea Onset: Today Severity: Mild Diarrhea/Melena/Hematochezia GI Symptom: Negative for Diarrhea, Melena or Hematochezia Associated Symptoms Associated Symptoms: Negative for Dysuria, Frequency, Hematuria or Urgency Narrative Narrative: 24-year-old female past medical history of diabetes, bipolar, PTSD. She has had a prior appendectomy and . G1, P1 Ab0. Complaining of several day history of right flank pain. Was seen at [facility] ER twice once on Saturday and Saturday. Had an ultrasound. Reportedly her IUD is not in appropriate position and she is actually scheduled to have it taken out today in the [facility] office. She denies any fever. Denies any dysuria or hematuria. Has nausea no vomiting or diarrhea. Prior similar symptoms: Yes Recent Illness/Hospitalization: No PFSH PFSH Medical History Asthma Bipolar 2 disorder Generalized anxiety disorder PTSD (post-traumatic stress disorder) delivery delivered Depression Diabetes Migraine TBI (traumatic brain injury) Home Medications ?Medication ?Instructions ?Recorded ?Last Taken ?Type ondansetron 4 mg disintegrating 4 mg PO Q6H PRN nausea and 05/12/24 Unknown Rx tablet vomiting #7 tabs Allergy/AdvReac Type Severity Reaction Status Date / Time Penicillins Allergy Rash Verified 05/12/24 03:58 fluoxetine (From Prozac) AdvReac Mild Other Verified 05/12/24 03:58 Surgical History H/O section History of appendectomy Social History adopted: Yes number of children: 1 current occupational status: employed 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 Nausea. No vomiting. No diarrhea. No fever. No dysuria. Review of Systems ROS Unobtainable: Denies due to encephalopathy Constitutional Constitutional ED: Denies chills or fever(s) ENT ENT ED: Denies ear pain Respiratory/Chest Respiratory/Chest: Denies cough or dyspnea Gastrointestinal Gastrointestinal: Reports abdominal pain and nausea; Denies constipation, diarrhea, melena or vomiting Genitourinary Genitourinary ED: Denies dysuria or hematuria Musculoskeletal Musculoskeletal: Denies arthralgias Integumentary Denies abscess Psychiatric Psychiatric: Denies anxiety or depression Endocrine Endocrinology: Denies polydipsia Hematologic/Lymphatic Hematologic/Lymphatic: Denies easy bleeding Allergic/Immunologic Allergic/Immunologic ED: Denies mouth swelling, tongue swelling or urticaria EXAM Physical Exam Narrative Exam Narrative: Well-appearing 24-year-old female. Vital signs stable afebrile. H EENT exam unremarkable. Moist extremities. Neck nontender. No lymphadenopathy. Lungs clear to auscultation bilaterally. Heart regular rate rhythm rate about 90 no murmur. Chest wall and ribs nontender. Abdomen is soft, nontender, nondistended, normal bowel sounds without peritoneal signs. There is no reproducible pain. No distention. No hernia or mass. Both right upper and right lower quadrants are unremarkable. Moving all 4 extremities. Nontender no edema. Normal strength. Normal range of motion. Back nontender. No signs of trauma. Neurologically she is awake alert no focal motor deficits. Const Vital Signs: 05/12/24 03:58 Temperature 97.8 F Temperature Source Temporal Pulse Rate 90 Respiratory Rate 16 Blood Pressure 149/76 H Blood Pressure Mean 100 Pulse Ox 98 Oxygen Delivery Method Room Air Positive well nourished and well developed; Negative for cachectic, contractures or unkempt General Appearance ED: well developed and NAD; Negative for unkempt, cachectic, contractures or pallor Nutritional Appearance: Negative for cachectic HEENT Reports moist mucous membranes normocephalic and atraumatic; Negative for trauma or tenderness Eyes PERRL and EOMs intact bilaterally General Eye ED: Negative for pale conjunctiva or scleral icterus Neck no lymphadenopathy, supple and no JVD General: Negative for tenderness Carotids: Negative for other Resp normal respiratory effort and clear to auscultation bilaterally Effort and Inspection: Negative for respiratory distress Auscultation: Negative for rales, rhonchi, wheezes or diminished lung sounds Cardio regular rate, regular rhythm, S1 normal heart sound, S2 normal heart sound and no murmurs Rate: Negative for bradycardia or tachycardic Rhythm: Negative for abnormal rhythm GI non-tender, non-distended and no masses GI Narrative: No reproducible abdominal tenderness. No reproducible back tenderness. Inspection: Negative for abdominal distention Auscultation: normoactive bowel sounds Palpation: soft; Negative for tender, guarding, rigid, hernia, mass, pulsatile mass or rebound tenderness present Back/Spine no CVA tenderness General Back: Negative for CVA tenderness Cervical Spine: Negative for cervical spine tenderness Thoracic Spine / Upper Back: Negative for thoracic spinal tenderness Lumbar Spine / Lower Back: Negative for lumbar spinal tenderness Extremity full ROM General Extremety ED: Negative for edema or tenderness General Extremity: Negative for edema Neuro CN's II-XII intact bilaterally and moves all extremities Sensorium / Orientation: alert, oriented to person, oriented to place and oriented to time; Negative for orientation impaired or confused Motor Exam: strength 5/5 throughout Psych mental status grossly normal and thought process normal Appearance: Negative for unkempt Attitude: No agitated Mood & Affect: Negative for depressed or tearful Skin no wounds General Skin Exam: Negative for jaundice or pallor Lesions: no lesions Rashes: no rashes Trauma: Negative for abrasion MDM MDM MDM Narrative Medical decision making narrative: 24-year-old female right flank pain. Exam benign. IV Toradol for pain. IV Zofran for nausea. Screening labs. At this time I do not think she needs any imaging unless the labs are indicative of further testing. Repeat exam at 4:35 AM patient doing well. Abdomen is nontender on repeat exam. We discussed her test results they are all unremarkable. She does not need any imaging. She is feeling better after pain and nausea medication. She will be written a prescription for Zofran sent to her pharmacy. She has an appointment to follow-up with the [facility] office this morning at 8 AM to have her IUD assessed and possibly removed. [facility] And she will remain here until her appointment in the morning. History & Record Review Discussion w/independent historian: Patient Additional record(s) reviewed:: Prior inpatient record, Prior outpatient record and Prior ED visit Lab Data Attestation: I reviewed the patient's lab results. Lab results narrative: CBC unremarkable. White count 8.6. H&H 12.3 and 39. Platelets 351. Electrolytes show a gap of 5. Normal BUN of 11 creatinine 0.8. Glucose 104. Liver enzymes normal. Lipase normal at 47. Serum test negative. Urinalysis shows no nitrites, no white or red cells. No bacteria. Labs: Laboratory Results - last 24 hr 05/12/24 05/12/24 04:01 04:14 WBC 8.6 RBC 4.61 Hgb 12.3 Hct 39.2 MCV 85.0 MCH 26.7 L MCHC 31.4 L RDW Std Deviation 45.0 H RDW Coeff of Raj 14.6 Plt Count 351 MPV 10.0 Immature Gran % (Auto) 0.400 Neut % (Auto) 64.2 Lymph % (Auto) 26.3 [place] % (Auto) 7.1 Eos % (Auto) 1.6 Baso % (Auto) 0.4 Absolute Neuts (auto) 5.5 Absolute Lymphs (auto) 2.25 Nucleated RBC % 0 Sodium 139 Potassium 3.7 Chloride 109 H Carbon Dioxide 25.0 Anion Gap 5 BUN 11 Creatinine 0.87 Estim Creat Clear Calc 93.58 Est GFR (MDRD) Af Amer 104 Est GFR (MDRD) Non-Af 86 BUN/Creatinine Ratio 12.7 Glucose 104 Calcium 9.2 Total Bilirubin 0.30 AST 24 ALT 41 Alkaline Phosphatase 86 Total Protein 7.5 Albumin 3.8 Globulin 3.7 Albumin/Globulin Ratio 1.0 Lipase 47 Serum , Qual NEGATIVE Urine Color Yellow Urine Clarity Clear Urine pH 6.0 Ur Specific [place] 1.015 Urine Protein Negative Urine Glucose (UA) Normal Urine Ketones Negative Urine Occult Blood 10 H Urine Nitrite Negative Urine Bilirubin Negative Urine Urobilinogen Normal Ur Leukocyte Esterase 100 H Urine RBC 0 SEEN Urine WBC 0-5 SEEN Ur Squamous Epith Cells 5-10 SEEN Urine Bacteria 0 SEEN Urine Mucus 0 SEEN Discharge Plan Triage Chief Complaint: Abd Pain ED Provider: Gregorio Childress Dx/Rx/DC Orders Clinical Impression: Acute flank pain, History of diabetes mellitus Instructions: ED Abdominal Pain Unkn Cause Fem Prescriptions: New ondansetron 4 mg tablet,disintegrating 4 mg PO Q6H PRN (Reason: nausea and vomiting) Qty: 7 0RF Primary Care Provider: Micki Ren Referrals: Micki Ren DO [Primary Care Provider] - Bing Evans MD [Med Staff - Active Staff] - Keep Nixon appointment Activity Restrictions/Additional Instructions: Motrin and Tylenol for pain. Keep your scheduled appointment later today with [facility] to have them evaluate your IUD. Print Language: Kazakh Disposition Disposition: Home, Self Care
[2024-05-12 04:13] LABS: Absolute Lymphocyte Count 2.25 X10^3/uL (0.83-4.51); Absolute Neutrophil Count 5.5 X10^3/uL (2.0-7.7); Basophil# 0.03 X10^3/uL; Basophil% 0.4 % (0-1); Eosinophil# 0.14 X10^3/uL; Eosinophils% 1.6 % (0-5); Hematocrit 39.2 % (37-47); Hemoglobin 12.3 g/dL (12.0-15.0); Lymphocyte # 2.25 X10^3/ul (0.83-4.51); Lymphocyte % 26.3 % (19-41); Mean Corp Hgb Conc 31.4 g/dL (32-36); Mean Corpuscular Hgb 26.7 pg (27.0-32.0); Monocyte# 0.61 X10^3/uL; Monocyte% 7.1 % (0-10); NRBC Flagged by Analyzer 0 % (0-5); Neutrophil # 5.51 X10^3/uL (2.7-7.7); Neutrophil % 64.2 % (47-70); Platelet Count 351 K/mm3 (150-450); RBC Distribution Width CV 14.6 % (11.6-14.6); Red Blood Count 4.61 M/mm3 (4.2-5.4); White Blood Count 8.6 K/mm3 (4.4-11.0)
[2024-05-12] MEDS: Ketorolac 30 MG/ML Syringe IV (04:13)
[2024-05-12] MEDS: Ondansetron 4 MG/2 ML Vial IV (04:13)
[2024-05-12 04:18] LABS: Bacteria 0 SEEN /hpf (None Seen); Mucous, Urine 0 SEEN /hpf (<or=2+); Red Blood Cells-Urine 0 SEEN /hpf (0-5)
[2024-05-12 04:20] LABS: Color, Urine Yellow (Yellow); Glucose, Dipstick Normal (Normal); Ketone-Dipstick Negative (Negative); Leukocyte Esterase-Dipstick 100 /ul (Negative); Nitrite-Dipstick Negative (Negative); Occult Blood-Urine 10 /ul (Negative); Protein-Dipstick Negative (Negative); Specific Gravity, Urine 1.015 (1.002-1.030); Urine Bilirubin Dipstick Negative (Negative); Urine Clarity Clear (Clear); Urine Urobilinogen Normal (Normal)
[2024-05-12 04:26] LABS: Internal QC Validated? YES +Cl - CLEAR BKGD; Pregnancy, Serum, hCG Quali. NEGATIVE Negative
[2024-05-12 04:29] LABS: AST(SGOT) 24 U/L (15-37); Alanine Aminotransfer ALT/SGPT 41 U/L (13-56); Albumin, Serum 3.8 g/dL (3.2-5.0); Alkaline Phosphatase 86 U/L (45-117); Anion Gap 5 (5-15); BUN 11 mg/dL (7-18); BUN/Creat Ratio 12.7 RATIO (10-20); Calcium,Total 9.2 mg/dL (8.5-10.1); Chloride 109 mmol/L (98-107); Creatinine, Serum 0.87 mg/dL (0.55-1.02); EST Glomerular Filtration Rate 86 mL/min (>60); Est Glom Filt Rate - Afr Amer 104 mL/min (>60); Estimated Creatinine Clearance 93.58 ml/min; Globulin 3.7 g/dL (2.2-4.2); Glucose 104 mg/dL (74-106); Lipase 47 U/L (13-75); Potassium 3.7 mmol/L (3.5-5.1); Protein, Total 7.5 g/dL (6.4-8.2); Sodium Level 139 mmol/L (136-145)
[2024-05-12 04:33] LABS: Squamous Epithelial Cells - UA 5-10 SEEN /hpf (5-10); White Blood Cells 0-5 SEEN /hpf (0-5)
[2024-05-12 04:48] VITALS: BP 132/74; PULSE 79; RESP 16; TEMP 36.6; O2SAT 98
== END 2024-05-12 04:49 | disposition home or self-care (01) ==
PROVIDERS: Emergency Provider Emergency Medicine; PCP Family Medicine; Visit Provider Emergency Medicine
DX: R10.9 Unspecified abdominal pain (principal); F31.9 Bipolar disorder, unspecified; E11.9 Type 2 diabetes mellitus without complications
CPT/HCPCS: 96374; 96375; 80053; 81001; 83690; 84703; 85025; 99283; A4216; J2405

== ENCOUNTER 2024-05-14 21:24 | Emergency (ER) | payer MEDICAID, SELFPAY ==
[2024-05-14 21:25] VITALS: BP 145/100; PULSE 74; RESP 16; TEMP 36.1; O2SAT 99; BMI 37.6
--- NOTE | 2024-05-14 22:03 | EDS_ITS ---
HPI History of Present Illness Chief Complaint: General Illness Informant: patient Onset/Context/Timing Onset: Today Context: Gradual Onset Timing: Continuous Current Severity: Mild Maximum Severity: Mild Narrative Narrative: 24-year-old female history of prior TBI, bipolar, PTSD with insulin resistant diabetes. States that she does not feel well. She has had nausea and headache today. Denies any fall or head trauma. No history of intracranial bleeds or aneurysms. She is not on any blood thinners. Recently she had an IUD removed that was given her pain. She also states that she has had a small amount of bright red blood per rectum. Denies any rectal pain. No fever. No dysuria. No vomiting. Prior similar symptoms: Yes Recent Illness/Hospitalization: No PFSH PFSH Medical History Asthma Bipolar 2 disorder Generalized anxiety disorder PTSD (post-traumatic stress disorder) delivery delivered Depression Diabetes Migraine TBI (traumatic brain injury) Home Medications ?Medication ?Instructions ?Recorded ?Last Taken ?Type ondansetron 4 mg disintegrating 4 mg PO Q6H PRN nausea and 05/12/24 Unknown Rx tablet vomiting #7 tabs Allergy/AdvReac Type Severity Reaction Status Date / Time Penicillins Allergy Rash Verified 05/14/24 21:24 fluoxetine (From Prozac) AdvReac Mild Other Verified 05/14/24 21:24 Surgical History H/O section History of appendectomy Social History adopted: Yes number of children: 1 current occupational status: employed 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 Headache. Review of Systems ROS Unobtainable: Denies due to encephalopathy Constitutional Constitutional ED: Denies chills or fever(s) ENT ENT ED: Denies ear pain Cardiovascular Cardiovascular: Denies chest pain or palpitations Respiratory/Chest Respiratory/Chest: Denies cough or dyspnea Gastrointestinal Gastrointestinal: Reports nausea; Denies abdominal pain, constipation or vomiting Genitourinary Genitourinary ED: Denies dysuria or hematuria Musculoskeletal Musculoskeletal: Denies arthralgias, back pain or myalgias Integumentary Denies abscess or Abrasions Endocrine Endocrinology: Denies cold intolerance or heat intolerance Hematologic/Lymphatic Hematologic/Lymphatic: Reports none Allergic/Immunologic Allergic/Immunologic ED: Denies mouth swelling, tongue swelling or urticaria EXAM Physical Exam Narrative Exam Narrative: Well-appearing 24-year-old female sitting upright in bed. Vital signs are stable afebrile. H EENT exam unremarkable. Pupils round reactive light. Extra motions are intact. No facial droop. Normal speech. No signs of trauma or tenderness. Neck nontender no meningismus. Able to touch chin to chest. Lungs clear to auscultation. Heart regular rhythm rate about 70 no murmur. Chest wall and ribs nontender. Abdomen soft nontender. No peritoneal signs. Both the right upper and right lower quadrants are unremarkable nontender. No distention. Moving all 4 extremities. 5 of 5 combine inspector strength. Fingertip to nose within normal limits. Dorsi plantarflexion intact. No drift. [id number] normal. Neurologic exam normal. Awake alert. Answering questions following commands. NIH score is 0. Back unremarkable. Patient is a very benign exam. Const Vital Signs: 05/14/24 21:25 05/14/24 21:32 Temperature 97 F L Temperature Source Temporal Pulse Rate 74 Respiratory Rate 16 Respiratory Effort Normal Non-Labored Respiratory Pattern Normal Blood Pressure 145/100 H Blood Pressure Mean 115 Pulse Ox 99 Positive well nourished and well developed; Negative for cachectic, contractures or unkempt General Appearance ED: well developed and NAD; Negative for unkempt, cachectic, contractures, cyanotic, diaphoretic or pallor Nutritional Appearance: Negative for cachectic HEENT Reports moist mucous membranes; Denies dry mucous membranes Negative for trauma or tenderness Mouth ED: No dry mucous membranes Mouth: No dry mucous membranes Eyes PERRL and EOMs intact bilaterally General Eye ED: Negative for pale conjunctiva or scleral icterus Neck no lymphadenopathy, supple and no JVD General: Negative for tenderness Lymph Lymphatic: Negative for other Chest Wall inspection of chest normal and palpation of chest normal Chest: Negative for other Resp normal respiratory effort and clear to auscultation bilaterally Effort and Inspection: Negative for retractions or pain with movement Auscultation: Negative for rales, rhonchi, wheezes or diminished lung sounds Cardio regular rate, regular rhythm, S1 normal heart sound, S2 normal heart sound and no murmurs Palpation: palpable S4 Rate: Negative for bradycardia or tachycardic Rhythm: Negative for abnormal rhythm GI normal to inspection, nondistended, normoactive bowel sounds, non-tender, non- distended and no masses Inspection: Negative for abdominal distention Auscultation: normoactive bowel sounds Palpation: soft; Negative for tender, guarding or rebound tenderness present Back/Spine no CVA tenderness General Back: Negative for CVA tenderness Cervical Spine: Negative for cervical spine tenderness Thoracic Spine / Upper Back: Negative for thoracic spinal tenderness Lumbar Spine / Lower Back: Negative for lumbar spinal tenderness Extremity normal to inspection General Extremety ED: Negative for edema or tenderness General Extremity: Negative for edema Neuro oriented x3 and CN's II-XII intact bilaterally Sensorium / Orientation: alert; Negative for orientation impaired, lethargic or stuporous Motor Exam: strength 5/5 throughout; Negative for general weakness or strength abnormal Psych mental status grossly normal Appearance: Negative for unkempt Attitude: No agitated Mood & Affect: Negative for depressed, anxious or tearful Skin no rashes or lesions noted, no wounds and skin turgor normal General Skin Exam: elasticity normal; Negative for jaundice or pallor Lesions: No lesion noted Rashes: No rashes noted Trauma: Negative for abrasion Wounds: Negative for wounds noted MDM MDM MDM Narrative Medical decision making narrative: 24-year-old female with several different complaints. Is a very benign exam and has unremarkable vital signs. She be treated for headache with IV fluids, Zofran and Toradol. Screening labs are being obtained. She is a very benign clinical exam with a normal neurologic exam. I do not think she needs any imaging. She has had no head trauma. No family history of intracranial bleeds or aneurysms. She is on no blood thinners. Repeat exam at 11:02 PM patient doing well. Exam unchanged and normal. We discussed her test results. She will be discharged home. Tylenol and Motrin for any pain. Outpatient follow-up as needed. Return if feeling worse. History & Record Review Discussion w/independent historian: Patient Additional record(s) reviewed:: Prior inpatient record, Prior outpatient record, Prior ED visit and Prior labs Lab Data Attestation: I reviewed the patient's lab results. Lab results narrative: CBC shows white count of 5.7. H&H 11.0 and 35.2. Platelets 324. Consistent with prior labs. Electrolytes show gap 5. Normal BUN and creatinine. Glucose 97. Serum test negative. Labs: Laboratory Results - last 24 hr 05/14/24 22:24 WBC 5.7 RBC 4.16 L Hgb 11.0 L Hct 35.2 L MCV 84.6 MCH 26.4 L MCHC 31.3 L RDW Std Deviation 45.1 H RDW Coeff of Raj 14.6 Plt Count 324 MPV 10.5 Immature Gran % (Auto) 0.400 Neut % (Auto) 65.6 Lymph % (Auto) 21.9 [place] % (Auto) 9.3 Eos % (Auto) 2.3 Baso % (Auto) 0.5 Absolute Neuts (auto) 3.8 Absolute Lymphs (auto) 1.25 Nucleated RBC % 0 Sodium 139 Potassium 3.6 Chloride 111 H Carbon Dioxide 23.0 Anion Gap 5 BUN 11 Creatinine 0.82 Estim Creat Clear Calc 97.33 Est GFR (MDRD) Af Amer 110 Est GFR (MDRD) Non-Af 91 BUN/Creatinine Ratio 13.3 Glucose 97 Calcium 8.7 Serum , Qual NEGATIVE Discharge Plan Triage Chief Complaint: General Illness ED Provider: Gregorio Childress Dx/Rx/DC Orders Clinical Impression: Headache, Anxiety Prescriptions: No Action ondansetron 4 mg tablet,disintegrating 4 mg PO Q6H PRN (Reason: nausea and vomiting) Qty: 7 0RF Primary Care Provider: Micki Ren Referrals: Micki Ren DO [Primary Care Provider] - As Needed Activity Restrictions/Additional Instructions: Plenty of fluids and rest. Alternate Tylenol and Motrin for any pain. Follow-up with your doctor if not improving. Follow-up with your doctor for the rectal bleeding. Print Language: Luxembourgish Disposition Disposition: Home, Self Care
[2024-05-14] MEDS: Ondansetron 4 MG/2 ML Vial IV (22:22)
[2024-05-14] MEDS: Ketorolac 30 MG/ML Syringe IV (22:22)
[2024-05-14] MEDS: 0.9% Normal Saline (1000mL) 1,000 ML 1000 ML IV (22:23)
[2024-05-14 22:41] LABS: Internal QC Validated? YES +Cl - CLEAR BKGD; Pregnancy, Serum, hCG Quali. NEGATIVE Negative
[2024-05-14 22:45] LABS: Absolute Lymphocyte Count 1.25 X10^3/uL (0.83-4.51); Absolute Neutrophil Count 3.8 X10^3/uL (2.0-7.7); Basophil# 0.03 X10^3/uL; Basophil% 0.5 % (0-1); Eosinophil# 0.13 X10^3/uL; Eosinophils% 2.3 % (0-5); Hematocrit 35.2 % (37-47); Lymphocyte # 1.25 X10^3/ul (0.83-4.51); Lymphocyte % 21.9 % (19-41); Mean Corp Hgb Conc 31.3 g/dL (32-36); Mean Corpuscular Hgb 26.4 pg (27.0-32.0); Mean Corpuscular Volume 84.6 fL (81-99); Mean Platelet Vol. 10.5 fl (6.2-12.0); Monocyte# 0.53 X10^3/uL; Monocyte% 9.3 % (0-10); NRBC Flagged by Analyzer 0 % (0-5); Neutrophil # 3.75 X10^3/uL (2.7-7.7); Neutrophil % 65.6 % (47-70); Platelet Count 324 K/mm3 (150-450); RBC Distribution Width CV 14.6 % (11.6-14.6); RBC Distribution Width SD 45.1 fl (35.1-43.9); Red Blood Count 4.16 M/mm3 (4.2-5.4); White Blood Count 5.7 K/mm3 (4.4-11.0)
[2024-05-14 22:53] LABS: Anion Gap 5 (5-15); BUN 11 mg/dL (7-18); BUN/Creat Ratio 13.3 RATIO (10-20); Calcium,Total 8.7 mg/dL (8.5-10.1); Chloride 111 mmol/L (98-107); Creatinine, Serum 0.82 mg/dL (0.55-1.02); EST Glomerular Filtration Rate 91 mL/min (>60); Est Glom Filt Rate - Afr Amer 110 mL/min (>60); Estimated Creatinine Clearance 97.33 ml/min; Glucose 97 mg/dL (74-106); Potassium 3.6 mmol/L (3.5-5.1); Sodium Level 139 mmol/L (136-145)
[2024-05-14 23:11] VITALS: BP 129/87; PULSE 84; RESP 16; TEMP 36.2; O2SAT 99
== END 2024-05-14 23:16 | disposition home or self-care (01) ==
PROVIDERS: Emergency Provider Emergency Medicine; PCP Family Medicine; Visit Provider Emergency Medicine
DX: R51.9 Headache, unspecified (principal); E11.9 Type 2 diabetes mellitus without complications; F41.9 Anxiety disorder, unspecified
CPT/HCPCS: 80048; 84703; 85025; 96374; 96375; 96376; 99283; J7030; A4216; J2405

== ENCOUNTER → 2024-06-05 | Outpatient (CLI) | payer MEDICAID, SELFPAY ==
[2024-06-05 15:29] LABS: Vitamin B12 342 pg/mL (211-911); Vitamin D,25 Hydroxy 31.7 ng/mL
[2024-06-05 15:33] LABS: Estradiol 61.9 pg/mL; Follicle Stimulating Hormone 5.2 mIU/mL; Prolactin 12.1 ng/mL; T4 Free Direct 0.95 ng/dL (0.76-1.46); Thyroid Stim Hormone (TSH) 1.38 uIU/mL (0.358-3.74)
[2024-06-05 15:40] LABS: ALB/GLOB Ratio 1.1 RATIO (0.9-2.4); AST(SGOT) 20 U/L (15-37); Alanine Aminotransfer ALT/SGPT 48 U/L (13-56); Alkaline Phosphatase 98 U/L (45-117); Anion Gap 8 (5-15); BUN 16 mg/dL (7-18); BUN/Creat Ratio 22.9 RATIO (10-20); Calcium,Total 9.1 mg/dL (8.5-10.1); Chloride 108 mmol/L (98-107); Cholesterol 162 mg/dL (200); EST Glomerular Filtration Rate 110 mL/min (>60); Est Glom Filt Rate - Afr Amer 133 mL/min (>60); Ferritin 26 ng/mL (8-252); Globulin 3.6 g/dL (2.2-4.2); Glucose 95 mg/dL (74-106); High Density Lipoprotein 31 mg/dL; Iron 33 ug/dL (50-170); Iron Binding Capacity,Total 342 ug/dL (250-450); Potassium 3.6 mmol/L (3.5-5.1); Protein, Total 7.6 g/dL (6.4-8.2); Sodium Level 139 mmol/L (136-145); Triglycerides 209 mg/dL; Very Low Density Lipoprotein 42 mg/dL (5-40)
[2024-06-08 15:08] LABS: Deamidated Gliadin IgA 3 units (0-19); Deamidated Gliadin IgG 2 units (0-19); Endomysial Antibody IgA Negative (Negative); Immunoglobulin A 96 mg/dL (87-352); t-Transglutaminase IgA <2 U/mL (0-3)
[2024-06-10 08:11] LABS: Beef <0.10 kU/L (Class 0); Chocolate <0.10 kU/L (Class 0); Codfish <0.10 kU/L (Class 0); Corn 1.48 kU/L (Class III); Egg, Whole <0.10 kU/L (Class 0); Milk (Cow) <0.10 kU/L (Class 0); Mussels 0.14 kU/L (Class 0/I); Peanut 1.89 kU/L (Class III); Pork <0.10 kU/L (Class 0); Salmon <0.10 kU/L (Class 0); Shrimp 0.41 kU/L (Class I); Soybean 1.35 kU/L (Class II); Tuna <0.10 kU/L (Class 0); Wheat 1.61 kU/L (Class III)
[2024-06-10 14:10] LABS: Testosterone Free 1.7 pg/mL (0.0-4.2)
[2024-06-10 16:09] LABS: 17-Hydroxyprogesterone 166 ng/dL (.)
== END | disposition home or self-care (01) ==
LOC: LAB 14:19
PROVIDERS: Nurse Practitioner Family; PCP Nurse Practitioner; Referring Provider Nurse Practitioner; Visit Provider Nurse Practitioner
DX: N64.52 Nipple discharge (principal); E88.819 Insulin resistance, unspecified; K92.1 Melena; R20.2 Paresthesia of skin; R14.0 Abdominal distension (gaseous); D64.9 Anemia, unspecified; Z13.29 Encounter for screening for other suspected endocrine disorder; F41.9 Anxiety disorder, unspecified; R53.83 Other fatigue
CPT/HCPCS: 36415; 80053; 80061; 82306; 82607; 82627; 82670; 82728; 82784; 83001; 83036; 83498; 83516; 83540; 83550; 84146; 84402; 84439; 84443; 86003; 86005; 86255; 82626

== ENCOUNTER → 2024-06-25 | Outpatient (CLI) | payer MEDICAID, SELFPAY ==
[2024-06-29 16:09] LABS: Calprotectin, Stool 57 ug/g (0-120)
== END | disposition home or self-care (01) ==
LOC: LABSPEC 10:13
PROVIDERS: PCP Nurse Practitioner; Referring Provider Nurse Practitioner; Visit Provider Nurse Practitioner
DX: K92.1 Melena (principal)
CPT/HCPCS: 82274; 83993

== ENCOUNTER 2024-06-29 08:00 | Outpatient (RCR) | payer MEDICAID, SELFPAY ==
--- NOTE | 2024-06-29 09:05 | BH.SGPN.GN ---
Behaviors/Verbalizations/Mental Status: [] Eye contact is good. Motor activity is appropriate. Appearance is casual. Speech is Appropriate. Mood is depressed and anxious. Affect is congruent. Thoughts are linear and logical. No evidence of psychosis. Reviewed daily check in sheet and no reports of suicidal ideations or intent. Client Response/Progress/Benefit: [] Pt participated at times during the group discussion. Attentive. Daily symptom tracker notes /5 for anxiety and 2/5 for depression. This was pt's first day in IOP level of care. She shared that she had been in the program in the past however never completed. Shared that it wasn't the right time reporting she had Post- Psychosis. She has been recently struggling with her mental health again after the loss of her grandfather, being unemployed, and divorce. In the past couple weeks I have dove into my mental health. Limited progress as this was pt's first day. Group provided empathy, feedback and advice for her first day in [facility] which was beneficial. Will continue in [facility] to maintain safety, stabilize mood, increase healthy coping, and improve functioning. Narrative Note: []
--- NOTE | 2024-06-29 10:15 | BH.SGPN.GN ---
Behaviors/Verbalizations/Mental Status: []Client alert and oriented, casually dressed and groomed. Eye contact good. Motor activity appropriate. Speech within normal limits. Affect congruent, mood anxious. Thoughts linear, logical, no signs of hallucinations or delusions. Client Response/Progress/Benefit: []Pt was an active participant, AEB taking notes and providing input in group discussions and activities. Attentive during psychoeducation. Pt engaged during interactive discussion in which the group defined self-care and discussed its benefits. Group discussed barriers to engaging in self-care. Group members together came up with guilt, time, urge to put others first, not knowing what to do for self-care, and perception that its unproductive as barriers to engage in self care. Pt stated their personal barrier is telling herself ?I shouldn?t need to practice self-care.? Pt participated in small groups where they worked to identified and challenged common self-care ?myths?. Benefited from increased awareness of self-care, its benefits, and the consequences of not utilizing self-care strategies. Will continue IOP tx to prevent decompensation, stabilize mood, increase healthy coping, and improve functioning. Narrative Note: []
--- NOTE | 2024-06-29 11:15 | BH.SGPN.GN ---
Behaviors/Verbalizations/Mental Status: [] Client alert and oriented, casually dressed and groomed. Eye contact good. Motor activity appropriate. Speech within normal limits. Affect congruent, mood content. Thoughts linear, logical, no signs of hallucinations or delusions. Client Response/Progress/Benefit: []Client engaged in discussion reviewing different areas of self-care and completing self-assessment of current self care, as well as providing input throughout discussion. Client completed worksheet identifying current self-care practices and what self-care activities client wants to start using. Client selected spiritual self-care to begin practicing more consistently. Client plans to do this by starting to keep a dream journal. Appeared to benefit from completing the self-care evaluation and gaining insights into current self-care practices, as well as identifying areas in which client would like to improve upon. Client will continue IOP tx to prevent decompensation and increase emotional regulation skills. Narrative Note: []
--- NOTE | 2024-07-01 09:00 | BH.SGPN.GN ---
Behaviors/Verbalizations/Mental Status: [] Eye contact good. Motor activity appropriate. Speech within normal limits. Affect congruent, mood content. Thoughts linear, logical, no signs of hallucinations or delusions. Reviewed client?s symptom tracker, denies SI, plan, or intent as of 07/01/2024. Client Response/Progress/Benefit: [] Client receptive of session, attentive and willing to process with group. Reports improved sx of anxiety ?(3/5) and depression (2/5) per daily sx tracker. ?Identified mental health ?win as taking time for self-care this morning and shared journaling and listening to positive music, which she believes aided in current state of calm. Went on to discuss an additional win as continuing to prioritize her mental health and making a concerted effort to get to IOP tx consistently. Stressor noted as ongoing difficulties in navigating her pending divorce but she is trying to remain positive and focus on what is in her control. Did well to identify skills he can use to do so. Benefitted from encouragement and support of the group. Recommended continued IOP tx to improve mood stability, promote consistent skill application, improve functioning, well as prevent decompensation. Narrative Note: []
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
--- NOTE | 2024-07-01 11:10 | BH.SGPN.GN ---
Behaviors/Verbalizations/Mental Status: []Pt alert and oriented, casually dressed and groomed. Eye contact good. Motor activity appropriate. Speech within normal limits. Affect congruent, mood content. Thoughts linear, logical, no signs of hallucinations or delusions. Client Response/Progress/Benefit: []Pt responded well to session AEB completing the resilience worksheet provided. Pt participated in the discussion and worked cooperatively with group to identify strategies to enhance each of the components discussed. Pt reports belief they already use resilience traits of??taking decisive action? and ?self-awareness.? Pt stated they would like to continue to develop resilience trait of ?avoiding seeing crises as insurmountable? as pt feels she would benefit from focusing on what pt ?can actually control right now.? Pt seemed to benefit from discussing strategies for improving personal resilience and identifying resilience traits pt already possesses. Will continue IOP tx to prevent decompensation, make medication adjustments, and gain healthy coping skills. Narrative Note: []
[2024-07-01 11:22] VITALS: BP 137/90; PULSE 69
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
== END 2024-07-01 23:59 ==
LOC: BHIOP 08:00
PROVIDERS: PCP Nurse Practitioner; Referring Provider Psychiatry & Neurology Psychiatry; Visit Provider Psychiatry & Neurology Psychiatry
DX: F25.0 Schizoaffective disorder, bipolar type (principal); F43.10 Post-traumatic stress disorder, unspecified; F41.1 Generalized anxiety disorder; Z79.899 Other long term (current) drug therapy
CPT/HCPCS: 90792; H2012; H2020; T1002

== ENCOUNTER → 2024-06-30 | Outpatient (CLI) | payer MEDICAID, SELFPAY ==
[2024-06-30 12:40] LABS: Erythrocyte Sedimentation Rate 12 mm/hr (0-30)
[2024-06-30 12:42] LABS: Absolute Lymphocyte Count 1.58 X10^3/uL (0.83-4.51); Basophil# 0.02 X10^3/uL; Basophil% 0.3 % (0-1); Eosinophil# 0.13 X10^3/uL; Eosinophils% 1.8 % (0-5); Hematocrit 38.9 % (37-47); Hemoglobin 12.4 g/dL (12.0-15.0); Lymphocyte # 1.58 X10^3/ul (0.83-4.51); Lymphocyte % 21.9 % (19-41); Mean Corp Hgb Conc 31.9 g/dL (32-36); Mean Corpuscular Hgb 26.7 pg (27.0-32.0); Mean Corpuscular Volume 83.7 fL (81-99); Mean Platelet Vol. 10.2 fl (6.2-12.0); Monocyte# 0.45 X10^3/uL; Monocyte% 6.2 % (0-10); NRBC Flagged by Analyzer 0 % (0-5); Neutrophil % 69.4 % (47-70); Platelet Count 374 K/mm3 (150-450); RBC Distribution Width CV 15.2 % (11.6-14.6); RBC Distribution Width SD 45.7 fl (35.1-43.9); Red Blood Count 4.65 M/mm3 (4.2-5.4); White Blood Count 7.2 K/mm3 (4.4-11.0)
[2024-06-30 12:59] LABS: ALB/GLOB Ratio 0.9 RATIO (0.9-2.4); AST(SGOT) 16 U/L (15-37); Alanine Aminotransfer ALT/SGPT 41 U/L (13-56); Albumin, Serum 3.7 g/dL (3.2-5.0); Alkaline Phosphatase 88 U/L (45-117); Anion Gap 7 (5-15); BUN 12 mg/dL (7-18); BUN/Creat Ratio 13.8 RATIO (10-20); CPK Total, Creatine Kinase 129 U/L (26-192); CRP 7.05 mg/L (0.0-3.0); Calcium,Total 9.2 mg/dL (8.5-10.1); Chloride 108 mmol/L (98-107); Creatinine, Serum 0.87 mg/dL (0.55-1.02); EST Glomerular Filtration Rate 86 mL/min (>60); Est Glom Filt Rate - Afr Amer 104 mL/min (>60); Glucose 93 mg/dL (74-106); Protein, Total 7.7 g/dL (6.4-8.2); Sodium Level 137 mmol/L (136-145)
[2024-07-01 10:09] LABS: Anti-Centromere B Ab <0.2 AI (0.0-0.9); Anti-Chromatin <0.2 AI (0.0-0.9); Anti-Jo <0.2 AI (0.0-0.9); Anti-Scleroderma-70 AB <0.2 AI (0.0-0.9); Anti-dsDNA Ab <1 IU/mL (0-9); RNP Ab 0.2 AI (0.0-0.9); SJOGREN'S Anti-SS-A test < 0.2 AI (0.0-0.9); SJOGREN'S Anti-SS-B test < 0.2 AI (0.0-0.9); Smith Ab <0.2 AI (0.0-0.9)
[2024-07-01 17:07] LABS: H. PYLORI STOOL AG Negative (Negative)
[2024-07-02 04:08] LABS: Cytoplasmic Ab (C-ANCA) <1:20 titer (Neg:<1:20); Dilute Prothrombin Time (dPT) 34.6 sec (0.0-47.6); Dilute Russell Viper Venom 40.3 sec (0.0-47.0); Interpretation Comment: (.); Lyme Scn Total Ab w/Rflx Negative (Negative); PTT-LA 38.2 sec (0.0-43.5); Perinuclear Ab (P-ANCA) <1:20 titer (Neg:<1:20); Thrombin Time 15.6 sec (0.0-23.0); dPT Confirm Ratio 1.13 Ratio (0.00-1.34)
== END | disposition home or self-care (01) ==
LOC: BIMLAB 10:50
PROVIDERS: PCP Nurse Practitioner; Visit Provider Nurse Practitioner
DX: M25.50 Pain in unspecified joint (principal); R11.0 Nausea
CPT/HCPCS: 36415; 80053; 82550; 85025; 85652; 86140; 86225; 86235; 86256; 86618; 87338

== ENCOUNTER 2024-07-02 07:16 | Outpatient (RCR) | payer MEDICAID, SELFPAY ==
[2024-07-02 00:55] VITALS: BP 137/90; PULSE 69
--- NOTE | 2024-07-03 09:05 | BH.SGPN.GN ---
Behaviors/Verbalizations/Mental Status: [] Pt alert and oriented, neatly dressed and groomed. Eye contact good. Motor activity appropriate. Speech within normal limits. Affect congruent, mood calm.. Thoughts linear, logical, no signs of hallucinations or delusions. Reviewed pt?s symptom tracker, no risk for suicidal ideation, plan, or intent 07/03/24 Client Response/Progress/Benefit: []Pt responded well to session, attentive and engaged. Pt reports feeling low energy this morning, but she also shared a lot of mental health wins. Pt shared she feels low energy because she has some medical issues and I don't know what they are. Pt shared she has upcoming medical appointments and she plans to be proactive which the group offered her praise for. Pt's wins today include seeing her ex and managing her anxiety and using positive self-talk this morning. Pt appeared to benefit from reflecting on progress and connecting with peers. Pt will continue IOP tx to increase emotional regulation skills, prevent decompensation, and monitor medication changes. Narrative Note: []
--- NOTE | 2024-07-03 10:25 | BH.SGPN.GN ---
Behaviors/Verbalizations/Mental Status: []Pt alert and oriented, casually dressed and groomed. Eye contact good. Motor activity appropriate. Speech within normal limits. Affect congruent, mood dysthymic, anxious. Thoughts linear, logical, no signs of hallucinations or delusions. Client Response/Progress/Benefit: [] Pt took notes and contributed throughout group discussion and interactive activity. Attentive during psychoeducation on fixed mindset and how a fixed mindset can impact mental health, resilience, and relationships. Participated during the interactive group discussion on fixed mindset in which group verbalized their current fixed mindsets and how they affect their mental health. Pt shared common fixed mindset thoughts they have which included I?ll never be able to lose and keep off the weight?, ?I'll always be sad?, and ?I won't be able to tell when I'm being manipulated?. These thoughts lead to giving up or not trying, low self-esteem, and remaining in unhealthy relationships. Pt benefited from increased awareness of growth mindset and fixed thoughts and how fixed thoughts impact their mental health. Will continue IOP tx to prevent decompensation, improve mood stability, and improve self-confidence. Narrative Note: []
--- NOTE | 2024-07-03 11:15 | BH.SGPN.GN ---
Behaviors/Verbalizations/Mental Status: []Pt alert and oriented, casually dressed and groomed. Eye contact fair. Motor activity appropriate. Speech within normal limits. Affect congruent, mood anxious. Thoughts linear, logical, no signs of hallucinations or delusions. Client Response/Progress/Benefit: [] Pt was an active participant during activity and discussion. Pt did well to remain attentive and participate as group worked on identifying characteristics and benefits of adopting a growth mindset. Worked with fellow participants in reframing the example fixed thoughts into growth mindset thoughts. Pt worked on changing own fixed thought and reframed the thought to If I start using my skills, I can feel better. Pt appeared to benefit from challenging own thoughts and engaging in the activity. Pt will continue IOP tx to improve mood stability, increase healthy coping skills, and prevent decompensation.
--- NOTE | 2024-07-06 10:10 | BH.SGPN.GN ---
Behaviors/Verbalizations/Mental Status: []Pt alert and oriented, causally dressed and groomed. Eye contact fair. Motor activity appropriate. Speech within normal limits. Affect congruent, mood euthymic. Thoughts linear, logical, no signs of hallucinations or delusions. Client Response/Progress/Benefit: [] Pt was actively engaged, providing input, and taking notes throughout session. Connected with the topic of pitfalls and listened to group discussion on internal and external barriers that prevent from choosing a healthier path to mental wellness. Group worked together to identify examples of personal internal pitfalls. Engaged in activity and worked cooperatively with peers. Shared personal pitfalls to include shutting down, avoidance, and poor boundaries. Pt engaged in learning about the difference between external triggers and self-sabotaging behaviors. Seemed to benefit from increased awareness of personal pitfalls. Pt will continue IOP tx to increase mood regulation, challenge distortions, and prevent decompensation.
--- NOTE | 2024-07-06 10:28 | BH.MDN ---
Multi-Disciplinary Note Note 60-min Individual: Time Started:: 09:02 Date: 07/06/24 Purpose of session/treatment goals addressed:: Purpose of session was to address goals 1 and 2 from MTP. Eye Contact:: Good Motor Activity:: Appropriate Appearance:: Neat Speech:: Appropriate Mood:: Euthymic Affect:: Congruent Thoughts:: Linear, Logical and No evidence of hallucinations/delusions noted Staff Interventions:: thought challenging, psychoeducation on: (boundary setting and healthy/unhealthy/abusive relationships), CBT techniques, rapport building, strengths perspective and goal setting Client Response:: Client reported overall her weekend went well with feeling like her mood was more stable and was able to handle stressful situations. Client stated she got to see her step-children for the first time since March 2024. Client reported she hadn't seen them because she started to struggle with her mental health in January 2024. Client stated she found it hard to answer questions the kids had as to why she has been gone and why she isn't with their father anymore. Client shared despite being challenging she is glad she had the opportunity to be open with them and answer their questions. Client stated she would like to work on understanding what healthy relationships looks like because she struggles with knowing she's in a unhealthy relationship until she's in too far. Therapist provided client with handout that reviews continuum of relationships. Reviewed abusive, unhealthy, and healthy relationship characteristics. Client reported she has struggled throughout her life of not recognizing she is in an unhealthy relationship/connection until she feels like she is too deep in the connection. Client shared example of a current friendship that she feels is not as healthy as she had thought initially. client stated she did get very close to this friend within a couple of months. Client processed situation with therapist and through discussion client agreed she did struggled with being assertive and direct with this friend because of fear of upsetting the friend. Therapist provided psychoeducation about boundary setting with importance of being direct and expressing what's not okay. Client stated although uncomfortable she wants to work on setting better boundaries with others. Risks/Concerns:: Denies suicidal ideation, plan, or intention to date. future oriented. Progress Toward Goals/Plan:: Progress noted with client reporting improved mood stability, medication compliance, and improved thought patterns. Client struggles with distorted thought patterns, asserting needs, and setting boundaries. Client is to continue IOP to increase consistent healthy coping skills, improve mood stability, and prevent decompensation. Time Stopped:: 10:00
--- NOTE | 2024-07-06 11:15 | BH.SGPN.GN ---
Behaviors/Verbalizations/Mental Status: []Pt alert and oriented, casually dressed and groomed. Eye contact good. Motor activity appropriate. Speech within normal limits. Affect congruent, mood content. Thoughts linear, logical, no signs of hallucinations or delusions. Client Response/Progress/Benefit: [] Pt receptive of session, engaged throughout AEB actively contributing and listening to discussion, as well as taking notes. Pt participated in the experiential activity and processed with group how their emotions, perspective, and reactions positively and negatively impacted the outcome. Pt identified pitfalls they struggle with and shared wanting to work on pitfall of impulsivity by challenging herself to practice delay, distract, decide, ads well as a pro/con list before making a decision, especially when tempted to spend money unnecessarily. Benefited from identifying personal pitfalls and strategies to overcome these pitfalls. Will continue IOP tx to prevent decompensation, continue to improve daily functioning, and promote mood stability. Narrative Note: []
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
--- NOTE | 2024-07-08 09:02 | BH.SGPN.GN ---
Behaviors/Verbalizations/Mental Status: [] Client alert and oriented, casual appearance. Eye contact good. Motor activity appropriate. Speech within normal limits. Affect congruent, mood euthymic and anxious. Thoughts linear, logical, no signs of hallucinations or delusions. Reviewed client's symptom tracker, no risk for suicidal ideation, plan, or intent. Client Response/Progress/Benefit: [] Client responded well to session AEB listening to others and sharing thoughts/feelings. Client reported mental health positive as doing well on her new medication except it does make her feel groggy in the morning. Stated she is hoping this will get better as she takes it. Client reported additional positive as being able to manage her anxiety more effectively. Client reported current stressor as trying to help her 3 year old son grieve the loss of his grandpa. Stated hard to help a 3 year old understand . Appeared to benefit from support from peers. Will continue IOP tx to increase healthy coping skills, build confidence, and prevent decompensation.
--- NOTE | 2024-07-08 10:10 | BH.SGPN.GN ---
Behaviors/Verbalizations/Mental Status: [] Eye contact is good. Motor activity is appropriate. Appearance is casual. Speech is Appropriate. Mood is euthymic. Affect is congruent. Thoughts are linear and logical. No evidence of psychosis. Client Response/Progress/Benefit: [] Pt was an active participant during group discussions and group activities. This portion of group was very psychoeducation heavy and pt was attentive during psychoeducation. Engaged during activity in which they identified which type of foods (i.e. carbs, sugar, salt, fast food, caffeine, etc) they seek out when sad, tired, angry, stressed, anxious, etc. Pt was able to identify the impact that certain foods have on their mental health through group example which was beneficial. Reported connecting with the impacts of sugar on PTSD. Benefited from increased awareness of the connection between nutrition and mental health. Will continue in IOP to prevent decompensation, stabilize mood, and increase healthy coping skills. Narrative Note: []
--- NOTE | 2024-07-08 11:10 | BH.SGPN.GN ---
Behaviors/Verbalizations/Mental Status: []Pt alert and oriented, casually dressed and groomed. Eye contact good. Motor activity appropriate. Speech within normal limits. Affect congruent, mood content. Thoughts linear, logical, no signs of hallucinations or delusions. Client Response/Progress/Benefit: [] Pt was an active participant throughout AEB contributing to group discussion and taking notes. Pt provided input during small group discussion on strategies to combat each factor maintaining adverse nutritional cycles. Worked with group to identify ways to foster more mindful nutritional choices. Each group participant identified one small step they could take today to begin establishing mental wellness promoting nutritional choices. Pt shared plans to?work on meal prepping her lunches for the week and cutting up vegetables when she buys them. Appeared to benefit from gaining insight into mental wellness centered nutrition and identifying personal steps pt can take to support own nutritional psychology. Recommended continued IOP tx to prevent decompensation, improve daily functioning, and increase distress tolerance skills. Narrative Note: []
--- NOTE | 2024-07-13 09:05 | BH.SGPN.GN ---
Behaviors/Verbalizations/Mental Status: [] Client alert and oriented, casually dressed and groomed. Eye contact good. Motor activity appropriate. Speech within normal limits. Affect congruent, mood euthymic. Thoughts linear, logical, no signs of hallucinations or delusions. Reviewed client?s symptom tracker, no risk for suicidal ideation, plan, or intent as of 07/13/24. Client Response/Progress/Benefit: [] Client responded well to session, offering ideas to peers and providing encouragement. Client reports feeling anxious this morning as client is having a lot of changes that include sikhism and relationships. Client reports that overall though she is making positive changes with discussing dietary changes and cooking healthier at home. Client also discussed listening to her body more and going to bed earlier. Client discussed that she tends to avoid conflict and is working towards her goals with decreasing avoidance and being more assertive. Client appeared to benefit from reflecting on her growth. Client will continue IOP tx as client continues to struggle with avoidance, anxiety, and depression. Narrative Note: []
--- NOTE | 2024-07-13 10:10 | BH.SGPN.GN ---
Behaviors/Verbalizations/Mental Status: [] Pt alert and oriented, appropriate grooming/appearance. Eye contact good. Motor activity appropriate. Speech within normal limits. Affect congruent, mood content, euthymic. Thoughts linear, logical, no signs of hallucinations or delusions. Client Response/Progress/Benefit: [] Pt was an active participant in group discussions. Attentive during psychoeducation. Contributed during interactive discussions in which peers attempted to define crisis. Group identified examples of potential crisis. Group also worked together to identify unhealthy responses to crisis which included lashing out, isolation, self-harm, substance abuse, and shutting down. Pt identified personal warning signs as lack of self-care, loss of interest, and impulsivity. Benefited from increased understanding of crisis and awareness of personal responses to crisis. Pt will continue IOP tx to increase consistency of healthy coping skills, promote mood stability, and prevent decompensation. Narrative Note: []
--- NOTE | 2024-07-13 11:10 | BH.SGPN.GN ---
Behaviors/Verbalizations/Mental Status: []Pt alert and oriented, appropriate grooming/appearance. Eye contact good. Motor activity appropriate. Speech within normal limits. Affect congruent, mood euthymic. Thoughts linear, logical, no signs of hallucinations or delusions. Client Response/Progress/Benefit: []Pt was an active participant in group discussions. Attentive during psychoeducation. In small group pt along with peers developed an active plan for their crisis warning signs. Pt identified three crisis warning signs as well as an action plan for each. One crisis warning sign was not practicing self-care. Pt identified coping skills to help with this such as: leaving sticky notes around the house, telling a friend about self-care, using visual cues, and setting small goals. ?Benefited from increased awareness of crisis warning signs and by developing crisis intervention strategies. Will continue in IOP to prevent decompensation, gain healthy coping skills, and improve daily functioning. ? Narrative Note: []
--- NOTE | 2024-07-15 09:00 | BH.SGPN.GN ---
Behaviors/Verbalizations/Mental Status: [] Pt alert and oriented, neatly dressed and groomed-wearing a wig. Eye contact good. Motor activity appropriate. Speech within normal limits. Affect congruent-tearful, mood sad Thoughts linear, logical, no signs of hallucinations or delusions. Reviewed pt?s symptom tracker, no risk for suicidal ideation, plan, or intent 07/15/24 Client Response/Progress/Benefit: []Pt responded well to session, attentive and engaged. Pt reports feeling weepy this morning and stated she is grieving her late father today. Pt stated when she thinks about her father, pt has urges to return to her relationship with her who pt is now from. Pt shared this is because her is one of the only people in her life still that knew her father. However, pt has expressed that this relationship was toxic. Pt stated her mental health wins today were going to the park for a walk with her kids this morning and spending time away from her phone yesterday. Pt appeared to benefit from connecting with peers and gaining different perspectives. Pt will continue IOP tx to prevent decompensation, gain support, and reinforce use of healthy coping skills. Narrative Note: []
--- NOTE | 2024-07-15 11:15 | BH.SGPN.GN ---
Behaviors/Verbalizations/Mental Status: [] Pt alert and oriented, casually dressed and groomed. Eye contact good. Motor activity appropriate. Speech within normal limits. Affect congruent, mood euthymic, Thoughts linear, logical, no signs of hallucinations or delusions. Client Response/Progress/Benefit: [] Pt was an attentive and active participant in group discussions and experiential activity, doing well to regulate their emotions throughout the activity and work with peers. Attentive during psychoeducation on the 4 A's (Avoid, adapt, alter, accept) of coping with stress. Shared that they would benefit most from accepting with not trying to always control everything. Was able to identify the connection between the experiential activity and utilization of stress management skills. Benefited from increased awareness of stress management strategies. Pt will continue IOP tx to prevent decompensation, improve daily functioning, and increase distress tolerance. Narrative Note: []
--- NOTE | 2024-07-15 12:59 | PCM.BH.PN_ITS ---
Progress Note Progress Note: History of Present Illness/Interim History: The patient is a 24-year-old -Russian female with a history of schizoaffective disorder bipolar type, PTSD, anxiety and traumatic brain injury who is seen in follow-up at the [facility] behavioral [facility] IOP. According to the staff the patient is not consistent in her attendance and is engaged in the program. I last saw the patient 2 weeks ago and at that time Vraylar and hydroxyzine were started. Patient states the Vraylar has been working well and she is tolerating it well except for an occasional mild muscle spasm. She feels much less depressed and her anxiety remains significant. She is waking up with panic attacks during the night according to the patient which is affecting her sleep. She feels she is avoiding some situations due to increased anxiety or fear of having a panic attack. She admits to passive thoughts of which are chronic but she states that this is just because my leti is in a good spot and I miss my dad who is so I would not mind seeing him. After several methods of questioning the patient admits that 2 days ago when when her period ended she had been having auditory hallucinations during her period which were voices that she did not recognize but they were saying somewhat critical and negative things to her. The patient at first that she could not understand what they were saying but then later said that they were saying negative things and remains somewhat inconsistent in her history. She denies any other hallucinations or any delusions. She has been taking actual Gonda supplements. She finished her prednisone but feels she still has inflammation in her body and would like to take something for this. Current Psychiatric Medications: [] Vraylar 1.5 mg daily (x 2 weeks); hydroxyzine 25 mg 3 times daily as needed; BuSpar 10 mg p.o. twice daily Mental Status Examination: [] The patient is a 24-year-old -Russian female who appears normal for stated age and is casually dressed and groomed with good hygiene. She has no psychomotor agitation or retardation and is pleasant and cooperative during the interview. Speech is normal rate and rhythm and fluent with no pressure. Mood is minimally depressed. Affect is full and normal. Thought process is goal-directed and organized. Thought content: There is evidence of chronic passive thoughts of but there is no evidence of suicidal ideation, plan for suicide, hallucinations or other hallucinations. Judgment is intact. Insight is limited but some present. Impulsivity is high. Diagnoses: [] 1. Schizoaffective disorder, bipolar type 2. PTSD 3. Generalized anxiety disorder 4. Housing, work, financial and primary support issues Plan: [] The patient will continue the IOP and behavioral health as the structure, support, education and group therapy will hopefully prevent worsening of the patient's symptoms which could require hospitalization. She felt safe during the interview and if it anytime she does not feel safe she agrees to let us know or go to the emergency room. The risks, options, possible complications and side effects of the medications were discussed with the patient and she understands and accepts these. She agrees to discontinue ashwagandha as it is risky especially for someone that is tends to be psychotic at times. She agrees to increase her Vraylar to 3 mg p.o. daily. She agrees to increase her BuSpar to 20 mg p.o. twice daily. She will also try trazodone 50 mg, 1-2 p.o. at bedtime as this has helped her sleep in the past. She also understands she can take 2 Vistaril at 1 time as long as she does not drive when she takes that to help with her anxiety. She will continue to follow-up with her outpatient providers and I will see the patient in follow-up in 3 weeks or 2.
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
--- NOTE | 2024-07-20 09:05 | BH.SGPN.GN ---
Behaviors/Verbalizations/Mental Status: []Eye contact is good. Motor activity is appropriate. Appearance is casual. Speech is Appropriate. Mood is content. Affect is congruent. Thoughts are linear and logical. No evidence of psychosis. Reviewed daily check in sheet and no reports of suicidal ideations or intent. Client Response/Progress/Benefit: []Pt responded well to session, attentive and engaged. Pt reports feeling content this morning despite multiple stressors going on in her life. 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 Pt able to see this as a stressor and a mental health win. Pt feels anxious about leaving IOP because she felt that she slipped last week due to missing some days. Pt was given encouragement and gentle thought challenging which pt reported she benefitted from this. Pt will continue IOP tx to prevent decompensation, improve daily functioning, and increase emotional regulation skills. Narrative Note: []
--- NOTE | 2024-07-20 10:15 | BH.SGPN.GN ---
Behaviors/Verbalizations/Mental Status: [] Eye contact is good. Motor activity is appropriate. Appearance is casual. Speech is Appropriate. Mood is anxious. Affect is congruent. Thoughts are linear and logical. No evidence of psychosis. Client Response/Progress/Benefit: [] Pt did well to participate in activity and was engaged and attentive during psychoeducation and interactive discussion on coping skills, why people use unhealthy coping skills, how to replace unhealthy coping skills, and internal vs external coping skills. Pt stated how we carry our stressors, daily life responsibilities, etc can either make a situation better or worse. Attentive as peers came up with list of negative coping skills including not asking for help, avoidance, isolating, sleeping, shopping, substance use, and several others. Group discussed the effects of how negative coping skills can impact mental health in a negative way. Benefited from increased understanding of unhealthy coping skills and the need for developing healthy internal and external coping skills. Will continue in IOP to challenge distorted thoughts, increase healthy coping skills, and prevent decompensation.
--- NOTE | 2024-07-20 11:15 | BH.SGPN.GN ---
Behaviors/Verbalizations/Mental Status: []Pt alert and oriented, casually dressed and groomed. Eye contact good. Motor activity appropriate. Speech within normal limits. Affect congruent, mood content. Thoughts linear, logical, no signs of hallucinations or delusions. Client Response/Progress/Benefit: [] Pt responded well to session, taking notes and contributing when prompted. Group discussed the different categories of coping skills which included distraction, emotional release, grounding, self-love, and thought challenging. Pt participated in creating a coping skills ?menu? from the five categories of coping skills. Pt's coping skill menu included: reading, running, meditation, positive affirmations, and reframing thoughts. Appeared to benefit from increasing repertoire of healthy coping skills. Will continue IOP to improve mood stability and distress tolerance, and prevent decompensation. Narrative Note: []
--- NOTE | 2024-07-22 10:15 | BH.SGPN.GN ---
Behaviors/Verbalizations/Mental Status: []Patient was alert and oriented, casually dressed and groomed. Eye contact was good, motor activity normal, speech within normal limits. Affect congruent, mood calm. Thoughts linear, logical, no signs of hallucinations or delusion Client Response/Progress/Benefit: [] Pt participated in the group discussions AEB contributing to discussion and taking notes. Attentive during psychoeducation Goal Setting. Participated during the discussion on common barriers and pt identified some personal barriers as unrealistic expectations, lack of motivation, and impatience. Group also identified benefits of goals as sense of purpose, improved self-confidence, more motivation for other goals, and improved mental health. Benefited from increased awareness of mental health benefits of goals as well as psychoeducation on SMART goal criteria. Will continue in IOP to promote mood stability, improve emotional regulation skills, and reduce negative thinking patterns. ?? Narrative Note: []
--- NOTE | 2024-07-22 11:15 | BH.SGPN.GN ---
Behaviors/Verbalizations/Mental Status: []Pt alert and oriented, casually dressed and groomed. Eye contact good. Motor activity appropriate. Speech within normal limits. Affect congruent, mood anxious. Thoughts linear, logical, no signs of hallucinations or delusions. Client Response/Progress/Benefit: [] Pt was semi-engaged during discussion AEB providing input when prompted, taking notes throughout, and willing to complete the worksheet challenging them to develop a personal SMART goal. Pt chose the goal of cleaning/organizing new room for one hour every day. Pt stated this will help decrease anxiety and create a peaceful environment. Pt identified low energy as a potential barrier. Identified solution as allowing self to shorten time on how much she cleans. Benefited from this group by developing a short-term SMART goal related to mental health. Will continue IOP tx to increase consistent use of healthy coping skills, challenge distorted thoughts, and prevent decompensation.
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
--- NOTE | 2024-07-22 20:52 | BH.MDN ---
Multi-Disciplinary Note Note 45-min Individual: Time Started:: 09:05 Date: 07/22/24 Purpose of session/treatment goals addressed:: Purpose of session was to address goals 1 and 2 from MTP. Eye Contact:: Good Motor Activity:: Appropriate Appearance:: Casual Speech:: Appropriate Mood:: Euthymic Affect:: Congruent Thoughts:: Linear, Logical and No evidence of hallucinations/delusions noted Staff Interventions:: thought challenging, CBT techniques, strengths perspective, goal setting and taught coping skills (relationships and boundaries) Client Response:: Client reported she has been struggling with anxiety from trauma triggers. Client stated feeling somewhat frustrated that [facility] psychiatrist won't prescribe Ativan to help with her anxiety. Therapist provided psychoeducation on the short term use of benzodiazepines and the reasons behind limited use of this medication for individuals. Provided additional education about how avoidance of things that makes she anxious can increase her anxiety over time. Explained that benzodiazepines can help with immediate anxiety relief but doesn't help client learn how to manage anxiety on her own. Client expressed helpfulness of having a better understanding why that medication wasn't prescribed. Client stated over the weekend she did have to help her brother that was at the hospital. Client reported it was somewhat stressful to manage caretaking responsibilities, but overall thought she managed this stress well. Client stated she also has been struggling with experiencing increased thoughts of suicide since increasing her medications last Saturday. Client reported she has been able to distract herself from the thoughts and hasn't had any intention or plan to kill herself. Client reported the suicidal thoughts come up when she is alone or is having down time. Client requested therapist consult with [facility] psychiatrist to see if this could be associated with the medication change. Client stated she has been working on boundaries that was discussed in individual session from two weeks ago. Client reported although it has been challenging to set boundaries with others she has noticed benefits. Client stated she does struggle with knowing how much personal information to share with others. Client reported she does tend to trauma dump but recognizes this has led to her being hurt. Client connected with discussion about importance of building trust with someone before immediately opening up about her life traumas. Discussed importance of emotional boundaries. Client reported she would like to work on being more mindful of how much she opens up to others. Risks/Concerns:: Client has reported increased suicidal thoughts since medication adjustment last week. Client stated she denies intention or plan. Client stated she is able to distract herself from the thoughts. Progress Toward Goals/Plan:: Progress noted with client reporting being able to manage various stressful situations over the last two weeks. Client is reporting increased anxiety with trauma triggers. Client struggling with using healthy coping skills to manage anxiety in the moment. Reviewed and encouraged use of belly breathing and grounding tools. Client working on setting boundaries and building healthy relationship. Plan is for client to continue IOP to decrease anxiety, increase healthy coping skills, and prevent decompensation. Time Stopped:: 09:55
--- NOTE | 2024-07-24 09:00 | BH.SGPN.GN ---
Behaviors/Verbalizations/Mental Status: []Eye contact is good. Motor activity is appropriate. Appearance is casual. Speech is Appropriate. Mood is euthymic. Affect is congruent. Thoughts are linear and logical. No evidence of psychosis. Reviewed daily check in sheet and no reports of suicidal ideations or intent. Client Response/Progress/Benefit: []Pt responded well to session, attentive and engaged. Pt reports feeling hopeful this morning. Pt identified mental health wins today which included taking a walk this morning to get coffee and pt paid it forward, and getting up early today which prevented pt feeling rushed. Pt's stressor this morning is pt is currently searching for a car and it has been difficult. Pt appeared to benefit from reflecting on use of coping skills and connecting with peers. Pt will continue IOP tx to prevent decompensation, improve daily functioning, and reduce negative thinking patterns. Narrative Note: []
--- NOTE | 2024-07-24 10:15 | BH.SGPN.GN ---
Behaviors/Verbalizations/Mental Status: [] Eye contact is good. Motor activity is appropriate. Appearance is casual. Speech is Appropriate. Mood is euthymic. Affect is full. Thoughts are linear and logical. No evidence of psychosis. Client Response/Progress/Benefit: [] Pt was engaged and an active participant throughout, providing input and taking notes. Participated throughout interactive discussion on defining anxiety and identifying cognitive and physiological symptoms of anxiety. Group discussed the role of anxiety on isolation, avoidance, and who this emotion impacts their ability to start and complete activities/goals. Pt identified their physical/physiological signs of anxiety (i.e. nausea, increased heart rate, butterflies, and headaches). Pt identified safety behaviors (i,e isolation, cancel plans, and reassurance seeking). Benefited from increased awareness and insight on anxiety and its impact. Will continue in IOP to maintain safety, prevent decompensation, and increase healthy coping skills. Narrative Note: []
--- NOTE | 2024-07-24 11:15 | BH.SGPN.GN ---
Behaviors/Verbalizations/Mental Status: []Pt alert and oriented, casually dressed and groomed. Eye contact fair. Motor activity appropriate. Speech within normal limits. Affect congruent, mood anxious. Thoughts linear, logical, no signs of hallucinations or delusions. Client Response/Progress/Benefit: []Pt was an active participant AEB pt providing input and listening attentively to peers. Attentive during psychoeducation on mindfulness coping skills and their impact on reducing anxiety and improving overall mental health wellness. Group was able to identify self-soothing and mind-based coping skills which included: 5-senses, meditation, deep breathing, TIPP, thought challenging, and progressive muscle relaxation. Pt also participated with peers in practicing mindfulness skills in session including deep breathing and PMR. Pt would like to work on progressive muscle relaxation and humming. Appeared to benefit from increasing repertoire of anxiety reduction skills. Pt will continue in IOP tx to increase utilization of healthy coping skills, challenge distortions, and decrease avoidance of anxiety provoking situations.
--- NOTE | 2024-07-27 09:00 | BH.SGPN.GN ---
Behaviors/Verbalizations/Mental Status: [] Eye contact good. Motor activity appropriate. Speech within normal limits. Affect congruent, mood content. Thoughts linear, logical, no signs of hallucinations or delusions. Reviewed client?s symptom tracker, SI within pt baseline (12/06), denies ?plan, or intent as of 07/27/2024. Client Response/Progress/Benefit: [] Client receptive of session, attentive and willing to process with group. Reports improving sx of depression?(3/5) and anxiety (2/5) per daily sx tracker. ?Identified mental health ?win as having an interview today and feeling ready to return to part-time work. Shared that she is looking forward to having something to focus on and feel accomplished a few times a week. Reports this would be a low stress position which would help with easing her back into the work force. Reports an additional win as communicate a need to establish solid boundaries in a relationship she is rekindling. Shared that in the past she had not had concrete boundaries which impeded the relationship from remaining healthy. Reports trying to be very intentional this time about healthy communication. Receptive of suggestions from the group in order to do so. Denies any current stressors. Recommended continued IOP tx to further improve mood stability, promote consistent skill application, well as prevent decompensation.
--- NOTE | 2024-07-27 11:10 | BH.SGPN.GN ---
Behaviors/Verbalizations/Mental Status: []Pt alert and oriented, neatly dressed and well groomed. Eye contact good. Motor activity appropriate. Speech within normal limits. Affect congruent, mood euthymic. Thoughts linear, logical, no signs of hallucinations or delusions. Client Response/Progress/Benefit: [] Pt engaged in session AEB Pt listening attentively to peers and providing input. Attentive during psychoeducation on 4 zones of regulation. Pt able to identify feelings and behaviors for each zone. Pt identified coping skills one can use to support self in each zone. Identified being in the green zone today as pt feel content and ?not anxious.? Pt shared she could benefit from continuing to practice the coping skills pt has learned at IOP and doing more ?check-ins? with herself. Benefited from increased education on zones of regulation or stages of alertness for emotions and healthy coping skills to use for each zone. Will continue IOP tx to improve daily functioning, increase distress tolerance skills, and reinforce healthy coping skills. ? Narrative Note: []
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
--- NOTE | 2024-07-29 10:10 | BH.SGPN.GN ---
Behaviors/Verbalizations/Mental Status: []Pt alert and oriented, neatly dressed and groomed. Eye contact good. Motor activity appropriate. Speech within normal limits. Affect congruent, mood anxious. Thoughts linear, logical, no signs of hallucinations or delusions. Client Response/Progress/Benefit: []Pt was attentive during psychoeducation and participated in group activity. Group discussed what contributes to a person?s perspective and how perspective can positively or negatively impact mental health treatment. Pt reflected on their perspective today and how it is impacting them. Pt shared their perspective today is ?in the middle as pt has hope and recognizes she has made progress, but she also struggles with all or nothing thinking. ?Pt shared this makes it challenging at times to move forward, but pt has been using opposite action. Pt appeared to benefit from increasing awareness of different perspectives and how they can affect mental health. Pt will continue IOP tx to promote mood stability, increase distress tolerance skills, and increase confidence in pt?s ability to maintain skills. Narrative Note: []
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
== END 2024-08-01 23:59 ==
LOC: BHIOP 07:16
PROVIDERS: PCP Nurse Practitioner; Referring Provider Psychiatry & Neurology Psychiatry; Visit Provider Psychiatry & Neurology Psychiatry
DX: F25.0 Schizoaffective disorder, bipolar type (principal); F43.10 Post-traumatic stress disorder, unspecified; F41.1 Generalized anxiety disorder; Z79.899 Other long term (current) drug therapy
CPT/HCPCS: 99214; H2012; H2020; S9480; 90834; 90837

== ENCOUNTER 2024-08-04 07:09 | Outpatient (RCR) | payer MEDICAID, SELFPAY ==
[2024-08-02 00:53] VITALS: BP 137/90; PULSE 69
--- NOTE | 2024-08-07 09:00 | BH.SGPN.GN ---
Behaviors/Verbalizations/Mental Status: [] Eye contact good. Motor activity appropriate. Speech within normal limits. Affect congruent, mood irritable, dysthymic, and anxious. Thoughts linear, logical, no signs of hallucinations or delusions. Reviewed client?s symptom tracker, pt denies SI,?plan, or intent as of 08/07/2024. Client Response/Progress/Benefit: [] Client receptive of session, attentive and willing to process with group. Identified mental health ?win as doing well to cope with her grief surrounding her brother?s terminal illness. Pt shared trying to stay active and find healthy outlets for emotional release. Described additionally working on maintaining healthy boundaries, which has been helpful for her mood stability and pt reports this as a win. Current stressor noted as being in physical pain and not having answer as to why. Pt shared trying to advocate for herself medically but has been frustrated by the limited answers she is receiving. Receptive of and appearing to benefit from group feedback and suggestions. Recommended continued IOP tx to maintain mood stability, promote consistent skill application, well as prevent decompensation. Narrative Note: []
--- NOTE | 2024-08-07 10:10 | BH.SGPN.GN ---
Behaviors/Verbalizations/Mental Status: []Pt alert and oriented, neatly dressed and groomed. Eye contact good. Motor activity appropriate. Speech within normal limits. Affect congruent, mood euthymic. Thoughts linear, logical, no signs of hallucinations or delusions Client Response/Progress/Benefit: [] Pt was an active participant during interactive group discussions. Attentive during psychoeducation. Along with peers contributed to interactive discussion on defining what a boundary is in mental health. Pt along with peers identified challenges to setting boundaries which included; fear of other's response, wanting to people please, fear of rejection, losing relationships, etc. Pt along with peers identified the benefits to setting boundaries such as better mental health, strengthen relationships, increased time for self-care, and making healthier choices. Pt shared that she has been trying to set more boundaries with her mother and this is helping their relationship. Pt benefited from increased awareness and insight on the importance/benefit to setting health boundaries. Will continue in IOP to promote mood stability, increase emotional regulation skills, and improve daily functioning. Narrative Note: []
--- NOTE | 2024-08-07 11:00 | BH.SGPN.GN ---
Behaviors/Verbalizations/Mental Status: [] Eye contact is good. Motor activity is appropriate. Appearance is casual. Speech is Appropriate. Mood is euthymic and anxious. Affect is congruent. Thoughts are linear and logical. No evidence of psychosis. Client Response/Progress/Benefit: []Pt responded well to session AEB listening attentively to peers, providing some input, as well as taking notes throughout. Pt contributed throughout psychoeducation on different boundary setting styles. Participated in group discussion brainstorming various strategies for improving healthy boundary settings. Pt stated she wants to continue working on setting emotional boundaries with others by saying no and being cautious on who she opens up to. ?Seemed to benefit from increased awareness of how different boundary styles can impact mental health. Will continue IOP to promote use of healthy coping skills, challenge distorted/negative thoughts, and prevent decompensation.
--- NOTE | 2024-08-10 09:00 | BH.SGPN.GN ---
Behaviors/Verbalizations/Mental Status: [] Pt alert and oriented, neatly dressed and groomed. Eye contact good. Motor activity appropriate. Speech within normal limits. Affect congruent, mood sad. Thoughts linear, logical, no signs of hallucinations or delusions. Reviewed pt?s symptom tracker, no risk for suicidal ideation, plan, or intent 08/10/24 Client Response/Progress/Benefit: []Pt responded well to session, attentive and engaged. Pt reports feeling lethargic this morning as pt's brother is in the hospital and he is not doing well. Pt shared she lost her father not that long ago, so pt does not feel ready to lose her brother too. Pt receptive to peer support and feedback. Pt was able to identify some mental health wins today including feeling like I understand my boundaries more and getting better at setting boundaries in general. Pt appeared to benefit from reflecting on application of coping skills and connecting with peers. Pt will continue IOP tx to promote use of healthy coping skills, improve daily functioning, and increase distress tolerance skills. Narrative Note: []
--- NOTE | 2024-08-10 10:15 | BH.SGPN.GN ---
Behaviors/Verbalizations/Mental Status: [] Eye contact is good. Motor activity is appropriate. Appearance is casual. Speech is Appropriate. Mood is anxious, content. Affect is congruent. Thoughts are linear and logical. No evidence of psychosis. Client Response/Progress/Benefit: [] Pt receptive of session, actively engaged throughout AEB taking notes, providing input, and contributing in small group discussion. Appeared to connect with group topic of automatic thoughts and cognitive distortions, as well as the impact of thought patterns on mental health, coping behaviors, and relationships. This particular group is very heavy on psychoeducation and pt appeared to connect with distortions and how they can impact functioning. Identified struggling with catastrophizing and mind reading distortions. Pt appeared to benefit from gaining insight on distorted thinking patterns and how this impacts overall mental health. Will continue IOP to stabilize mood, improve ability to function, and prevent decompensation. Narrative Note: []
--- NOTE | 2024-08-10 11:15 | BH.SGPN.GN ---
Behaviors/Verbalizations/Mental Status: []Pt alert and oriented, casually dressed and groomed. Eye contact fair. Motor activity appropriate. Speech within normal limits. Affect congruent, mood euthymic. Thoughts linear, logical, no signs of hallucinations or delusions Client Response/Progress/Benefit: [] Pt was an active participant during group discussion. Pt was placed in a smaller group and participated in combatting example distortions with peers. Pt was engaged in the smaller group, participated in group interactions to brainstorm answers, and appeared to be comprehending cognitive distortions. Pt stated could connect with many of the distortions covered in group. Pt stated she has learned from group today asking herself if there is evidence for a thought can be a helpful challenging skill. Benefited from gaining further insight and awareness of cognitive distortions as well as practicing ways to reframe and challenge thoughts. Will continue in IOP tx to increase consistent use of healthy coping skills, build confidence, continue setting boundaries, and prevent decompensation.
--- NOTE | 2024-08-11 09:05 | BH.SGPN.GN ---
Behaviors/Verbalizations/Mental Status: [] Eye contact is good. Motor activity is appropriate. Appearance is casual. Speech is Appropriate. Mood is depressed/anxious. Affect is congruent. Thoughts are linear and logical. No evidence of psychosis. Reviewed daily check in sheet and no reports of suicidal ideations or intent. Client Response/Progress/Benefit: [] Pt was an active participant in group discussions. Attentive. Daily symptom tracker notes 03/06 for anxiety and depression. Emotion for today is ?calm?. Shared with the group that her brother ? is still on a ventilator?. Elaborated on the struggles associated with watching brother go through this medical issue. She continues to work on her mental??health as she is concerned this stressor could lead to decompensation. Made a conscious effort to reframe and challenge negative thoughts, used opposite-action to stop isolation/unhealthy coping skills, and exercising to help distract herself. Progress noted as she is utilizing skills during crisis. Benefited from group support, encouragement, and feedback. Will continue in IOP to prevent decompensation, stabilize mood, and increase healthy coping. Narrative Note: []
--- NOTE | 2024-08-11 11:02 | BH.MDN ---
Multi-Disciplinary Note Note 30-min Individual: Time Started:: 10:15 Date: 08/11/24 Purpose of session/treatment goals addressed:: Purpose of session was to address goals 1 and 2 from MTP. 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 Client reported she wants to give it a try because she wants to be able to have a career that she can stay in for longer than a couple of months. Client stated she has been working on using grounding tools to help her stay more mindful and in the moment. Client reported the grounding tools discussed in last individual session have been helpful to bring her back to the current moment when she gets trauma triggered. Client stated having something tactile to feel when to bring her back to the here and now has been extremely helpful. Client asked if this typewriter repairer would reach out to client's [facility] admissions director to discuss client trying to get disability right now. Client stated she doesn't want to be on disability forever because she has a desire to hold a career, however thinks she could benefit from disability currently while she works on her mental health and hopefully starts EMDR soon with her outpatient therapist to work through her trauma. Client reported she has struggled throughout her life with holding most jobs for more than a few months due to feeling anxious, paranoid, or difficulty maintaining stress levels. 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 Therapist and client discussed next week being client's last week in program. Client stated she is feeling nervous about not having the support anymore, but knows she has made progress this time in the program. Client encouraged to start thinking about what skill/strategies would be important to put on her maintenance plan that is completed together next week. Risks/Concerns:: Client denies suicidal thoughts, plan, or intention to date. Future oriented. Progress Toward Goals/Plan:: Progress noted with client reporting use of grounding tools to help her manage anxiety and trauma triggers. Progress can also be noted with client reporting making a decision to go to phlebotomy school. Client continues to report anxious thoughts and feelings, but has reported improved ability to manage these symptoms. Client identified stressor as trying to work things out with her , but is unsure it is a good thing for her. Plan is for client to discharge from [facility] next week. Time Stopped:: 10:45
--- NOTE | 2024-08-11 11:10 | BH.SGPN.GN ---
Behaviors/Verbalizations/Mental Status: [] Client alert and oriented, casually dressed and groomed. Eye contact good. Motor activity appropriate. Speech within normal limits. Affect congruent, mood anxious and dysthymic. Thoughts linear, logical, no signs of hallucinations or delusions. Client Response/Progress/Benefit: [] Client responded well to session, engaged in the experiential activity and attentive throughout group processing. Client reported fear of failure has kept client from visiting places from my past. Client completed fear of failure worksheet and was able to identify thoughts and behaviors that reinforce personal fear of failure including toxic people, what if thoughts, and anxiety. Client participated in small group discussion regarding strategies to overcome fear of failure. Identified wanting to work on combating what if thoughts with learning to set healthy boundaries, encouragement, and opposite action. Appeared to benefit from increased knowledge of strategies to combat fear of failure and gaining self-awareness. Client will continue IOP tx to promote mood stability and prevent decompensation. Narrative Note: []
--- NOTE | 2024-08-20 09:05 | BH.SGPN.GN ---
Behaviors/Verbalizations/Mental Status: [] Eye contact good. Motor activity appropriate. Speech within normal limits. Affect congruent, mood content. Thoughts linear, logical, no signs of hallucinations or delusions. Reviewed client?s symptom tracker, pt denies SI,?plan, or intent as of 08/20/2024. Client Response/Progress/Benefit: [] Client receptive of session, attentive and willing to process with group. ?Identified mental health ?win as doing well to cope with her brother?s passing, noting that in the pass she would not have been able to function with the grief. Additional win noted as using healthy skills of running and deep breathing when struggling with anxiety yesterday. Stressor noted as maintaining gains made, given tomorrow is her last day. Did well to reflect on continued skills to use to prevent decompensation. Receptive of and appearing to benefit from group support. Recommended continued IOP tx to maintain mood stability, promote consistent skill application, well as prevent decompensation. Narrative Note: []
--- NOTE | 2024-08-20 10:10 | BH.SGPN.GN ---
Behaviors/Verbalizations/Mental Status: [] Eye contact is fair. Motor activity is appropriate. Appearance is casual. Speech is Appropriate. Mood is anxious. Affect is congruent. Thoughts are linear and logical. No evidence of psychosis. Client Response/Progress/Benefit: [] Pt engaged participant AEB listening to others, engaging in activity, and providing feedback at times. Attentive during psychoeducation and provided insight into obstacles that impede mental wellness. Pt shared with group current mental health reality and desired mental health reality. Stating she would like to be more open with others and enjoy daily life more often. Identified barriers to desired reality include: poor boundaries, poor communication, lack of self-care, and negative thoughts. Benefited from taking look at current mental health state and obstacles for progress. Pt to continue IOP tx to increase healthy coping, decrease anxious avoidance, and prevent decompensation.
--- NOTE | 2024-08-20 11:15 | BH.SGPN.GN ---
Behaviors/Verbalizations/Mental Status: []Eye contact is good. Motor activity is appropriate. Appearance is neat. Speech is Appropriate. Mood is euthymic. Affect is congruent. Thoughts are linear and logical. No evidence of psychosis. Client Response/Progress/Benefit: []Pt was an engaged participant in group discussion and activity. Worked with group to identify strategies to help overcome barriers and obstacles to desired reality. Group developed strategies for the common barriers. Identified personal barriers to desired reality and choose one obstacle to work. Pt stated pt wants to work on barrier personalizing and pt plans to do this by working on thought challenging techniques. Pt seemed to benefit from increased repertoire of healthy coping skills/strategies to overcome common barriers to moving forward. Pt is to continue IOP to reinforce healthy coping skills and establish aftercare. Narrative Note: []
--- NOTE | 2024-08-21 09:00 | BH.SGPN.GN ---
Behaviors/Verbalizations/Mental Status: [] Eye contact is good. Motor activity is appropriate. Appearance is casual. Speech is Appropriate. Mood is euthymic. Affect is full. Thoughts are linear and logical. No evidence of psychosis. Reviewed daily check in sheet and no reports of suicidal ideations or intent. Client Response/Progress/Benefit: [] Pt was an active participant in group discussions. Attentive. Daily symptom tracker notes 3/5 for anxiety and 2/5 for depressed mood. Shared with the group that today is her last day in [facility]. Set to discharge successfully today. She is proud of herself for completing the program this is the third time I tried the program and the first time I've finished. Used this as a way to show growth and increased stability in recent weeks. I feel prepared. Pt reports that she gained skills and confidence from the program and has been consistently utilizing her skills. She mentioned the group on cognitive distortions and reframing as being a topic that was most helpful for her. Feeling hopeful. She has aftercare arranged. Progress noted. Benefited from group support, encouragement, and feedback. Will be discharged from [facility] today. Narrative Note: []
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
--- NOTE | 2024-08-21 11:10 | BH.SGPN.GN ---
Behaviors/Verbalizations/Mental Status: []Pt alert and oriented, casually dressed and groomed. Eye contact good. Motor activity appropriate. Speech within normal limits. Affect congruent, mood euthymic. Thoughts linear, logical, no signs of hallucinations or delusions. Client Response/Progress/Benefit: [] Pt was engaged during discussion and willing to complete the worksheet challenging them to develop a personal SMART goal. Pt chose the goal of taking her medications consistently everyday. Pt stated feeling discouraged as a potential barrier. Identified solution as reminding herself of the importance o ftaking her medication. Benefited from this group by developing a short-term SMART goal related to mental health. Will d/c from IOP tx and continue in outpatient counseling to maintain mood stability and prevent decompensation. Narrative Note: []
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
== END 2024-08-21 12:06 | disposition home or self-care (01) ==
LOC: BHIOP 07:09
PROVIDERS: PCP Nurse Practitioner; Referring Provider Psychiatry & Neurology Psychiatry; Visit Provider Psychiatry & Neurology Psychiatry
DX: F25.0 Schizoaffective disorder, bipolar type (principal); F43.10 Post-traumatic stress disorder, unspecified; F41.1 Generalized anxiety disorder
CPT/HCPCS: H2012; H2020; S9480; 90832; 90834

== ENCOUNTER 2024-08-06 06:38 | Outpatient (RCR) | payer MEDICAID, SELFPAY ==
--- NOTE | 2024-08-06 07:48 | HP.PTEVAL_ITS ---
Patient's Visit Information Visit Information Visit Information: MARTITA HERNANDEZ is a 24 year old F referred to Physical Therapy by SREE Rivas with a diagnosis of Polyarthralgia. Date of Evaluation: 08/06/24 Physical Therapist: YUE Dowell Visit Plan Frequency: 2x /Week Duration: 2 Months Plan: 2X/ week for 8 weeks for AT for LE strength, UE strength, core strength, stretching of B HS/Quads/hip flexor and piriformis with HEP. Subjective Subjective: In May she started having body aches and joint pain. They have not been able to pinpoint what is going on. She wants to start some water therapy because she notices that when she is in the water she is better. Her pain is affecting her everyday life. Today her pain is in her arms and in her thighs and it is very achy and she feels like her whole body is inflamed. They are leaning towards fibro and RA. Her stress level is very high. When she woke up this morning pain was 10/10 pain. She was on prednisone for awhile but not good for her bipolar. Pain Arm pain: Pain Intensity (Out of 10): 7 Thigh pain: Pain Intensity (Out of 10): 7 Objective Objective: Gait: Walks with normal gait pattern. Heel and toe raises: able to heels and toe raises LE MMT: 4/5 B hip flex, abd, knee flex and ext and B hip ext 4-/5 UE MMT: 4/5 B shoulder flex/ABD, ER/IR Pt is able to do 3/4 normal ROM bridge Pt has increase HS/Quad tightness and B piriformis Balance/Special Test Scores Lower Extremity Functional Score: 35 Goals Goal 1:: I HEP Goal Time Frame: 4-6 Weeks Goal 2:: Decrease overall pain to 3/10 upon walking up in the morning 50% of the week Goal Time Frame: 4-6 Weeks Goal 3:: Increase flexibility of B HS/Quads/hip flexor/piriformis Goal Time Frame: 4-6 Weeks Goal 4:: Increase LE and UE strength and pt report feeling of increase strength throughout her day Goal Time Frame: 4-6 Weeks Rehabilitation Potential Rehabilitation Potential: Excellent Anticipated Interventions Patient/Client Instruction: Educate patient on: Condition and Plan of Care For the Purpose of:: To decrease pain, To increase ROM, To improve nutrient delivery to tissue, To improve muscle performance and motor function, To improve ability to perform ADL's, To increase tolerance to activity/condition/position, To improve performance and independence with ADL's, To decrease level of supervision to perform tasks, To improve ability of physical actions for home/community/work/leisure, To improve gait and locomotor functions, To improve health of tissue, To decrease soft tissue restriction, To increase flexibility/ROM and To improve endurance Therapeutic Exercise to Include: Strength training, Endurance training, Balance training, Postural training, Flexibilty training, Gait and locomotor training, Neuromotor development, In an aquatic setting, Active ROM, Dynamic Lumbar Stabilization and Scapular Strength/Stabilization For the Purpose of:: To decrease pain, To increase ROM, To improve nutrient delivery to tissue, To improve muscle performance and motor function, To improve ability to perform ADL's, To increase tolerance to activity/condition/position, To improve performance and independence with ADL's, To decrease level of supervision to perform tasks, To improve ability of physical actions for home/community/work/leisure, To improve gait and locomotor functions, To improve health of tissue, To decrease soft tissue restriction and To increase flexibility/ROM Text: Thank you for the opportunity to evaluate your patient. For Medicare and Medicare HMO plans, please review the plan of care and approve it. It will need to be FAXED BACK to us at [phone] for Medicare purposes. For Medicare only, by signing this I certify the plan of care. Please let me know if there are questions or concerns regarding this plan of care. Physician Signature: Date:_
--- NOTE | 2024-09-30 18:09 | HP.PT.NRP ---
Patient Information Patient Information: MARTITA HERNANDEZ was seen in my office for initial evaluation on 08/06/24. The following Plan of Care was established for this patient: POC Established Initial Frequency: 2x /Week Initial Duration: 2 Months Anticipated Interventions Patient/Client Instruction: Educate patient on: Condition and Plan of Care For the Purpose of:: To decrease pain, To increase ROM, To improve nutrient delivery to tissue, To improve muscle performance and motor function, To improve ability to perform ADL's, To increase tolerance to activity/condition/position, To improve performance and independence with ADL's, To decrease level of supervision to perform tasks, To improve ability of physical actions for home/community/work/leisure, To improve gait and locomotor functions, To improve health of tissue, To decrease soft tissue restriction, To increase flexibility/ROM and To improve endurance Therapeutic Exercise to Include: Strength training, Endurance training, Balance training, Postural training, Flexibilty training, Gait and locomotor training, Neuromotor development, In an aquatic setting, Active ROM, Dynamic Lumbar Stabilization and Scapular Strength/Stabilization For the Purpose of:: To decrease pain, To increase ROM, To improve nutrient delivery to tissue, To improve muscle performance and motor function, To improve ability to perform ADL's, To increase tolerance to activity/condition/position, To improve performance and independence with ADL's, To decrease level of supervision to perform tasks, To improve ability of physical actions for home/community/work/leisure, To improve gait and locomotor functions, To improve health of tissue, To decrease soft tissue restriction and To increase flexibility/ROM Last Seen Last Seen: This patient was last seen in our office 08/06/24. Pertinent comments regarding their Physical therapy will appear below: [facility] At this point I will be discontinuing this patient from physical therapy. I would be happy to see this patient again in the future if found appropriate by the physician. Thank you! Deyanira Vargas, YUE Balance/Gait/Functional tests Balance/Special Test Scores Lower Extremity Functional Score: 35
== END 2024-08-06 19:00 | disposition home or self-care (01) ==
LOC: PT 06:38
PROVIDERS: PCP Nurse Practitioner; Referring Provider Nurse Practitioner; Visit Provider Nurse Practitioner
DX: M25.50 Pain in unspecified joint (principal)
CPT/HCPCS: 97161

== ENCOUNTER → 2024-08-20 | Outpatient (CLI) | payer MEDICAID, SELFPAY ==
--- NOTE | 2024-08-20 16:21 | RAD_ITS ---
STUDY: X-RAY - RIGHT FOOT CLINICAL: Female, 24 years old. foot injury TECHNIQUE: 3 view(s) of the foot. COMPARISON: None. FINDINGS: Normal talus, calcaneus, and tarsal bones. Normal visualized subtalar, talonavicular, calcaneocuboid, tarsal and tarsometatarsal articulations. Normal metatarsi. Normal metatarsophalangeal joint of the great toe. Normal tibial and fibular sesamoid bones. Normal interphalangeal joint of the great toe. Normal phalanges of the great toe. Normal second through fifth metatarsophalangeal joints. Normal interphalangeal joints and phalanges of the lesser toes. The soft tissue structures are unremarkable. RAD/Foot min 3 Views IMPRESSION: Normal x-ray examination of the foot. Electronically Signed: David Alberts MD at 16:55 EDT ,
== END | disposition home or self-care (01) ==
PROVIDERS: PCP Nurse Practitioner; Referring Provider Physician Assistant Surgical; Visit Provider Physician Assistant Surgical
DX: S99.921A Unspecified injury of right foot, initial encounter (principal)
CPT/HCPCS: 73630

== ENCOUNTER → 2024-09-10 | Outpatient (CLI) | payer MEDICAID, SELFPAY ==
[2024-09-10 13:29] LABS: HIV - WCH Non-Reactive (Nonreactive); Hepatitis B Surface Antigen Non-Reactive (Nonreactive); Hepatitis C Antibody Non-Reactive (Nonreactive); Syphilis Antibodies Non-reactive
[2024-09-11 20:08] LABS: Chlamydia By Nucleic Acid AMP Negative (Negative); Gonococcus By Nucleic Acid AMP Negative (Negative)
== END | disposition home or self-care (01) ==
PROVIDERS: PCP Nurse Practitioner; Referring Provider Advanced Practice Midwife; Visit Provider Advanced Practice Midwife
DX: Z11.3 Encounter for screening for infections with a predominantly sexual mode of transmission (principal)
CPT/HCPCS: 36415; 86695; 86696; 86703; 86780; 86803; 87340; 87491; 87591

== ENCOUNTER → 2025-04-09 | Outpatient (CLI) | payer MEDICAID, SELFPAY ==
[2025-04-09 13:59] LABS: Erythrocyte Sedimentation Rate 9 mm/hr (0-30)
[2025-04-09 14:02] LABS: Absolute Lymphocyte Count 1.79 X10^3/uL (0.83-4.51); Absolute Neutrophil Count 4.3 X10^3/uL (2.0-7.7); Basophil# 0.03 X10^3/uL; Basophil% 0.4 % (0-1); Eosinophil# 0.21 X10^3/uL; Eosinophils% 3.1 % (0-5); Hemoglobin 13.8 g/dL (12.0-15.0); Lymphocyte # 1.79 X10^3/ul (0.83-4.51); Lymphocyte % 26.6 % (19-41); Mean Corp Hgb Conc 32.9 g/dL (32-36); Mean Corpuscular Hgb 28.8 pg (27.0-32.0); Mean Corpuscular Volume 87.7 fL (81-99); Mean Platelet Vol. 10.6 fl (6.2-12.0); Monocyte# 0.37 X10^3/uL; Monocyte% 5.5 % (0-10); NRBC Flagged by Analyzer 0 % (0-5); Neutrophil # 4.32 X10^3/uL (2.7-7.7); Neutrophil % 64.1 % (47-70); Platelet Count 378 K/mm3 (150-450); RBC Distribution Width CV 13.2 % (11.6-14.6); RBC Distribution Width SD 42.5 fl (35.1-43.9); Red Blood Count 4.79 M/mm3 (4.2-5.4); White Blood Count 6.7 K/mm3 (4.4-11.0)
[2025-04-09 14:15] LABS: ALB/GLOB Ratio 1.3 RATIO (0.9-2.4); AST(SGOT) 31 U/L (<=31); Alanine Aminotransfer ALT/SGPT 36 U/L (<=34); Albumin, Serum 4.6 g/dL (3.5-5.0); Alkaline Phosphatase 90 U/L (35-104); Anion Gap 12 (5-15); BUN 12 mg/dL (4-19); BUN/Creat Ratio 14.4 RATIO (10-20); CRP 6.72 mg/L (0.0-3.0); Calcium,Total 9.6 mg/dL (7.6-11.0); Carbon Dioxide 19.6 mmol/L (21.0-32.0); Chloride 105 mmol/L (98-108); Creatinine, Serum 0.86 mg/dL (0.70-1.20); EST Glomerular Filtration Rate 97 (>60); Globulin 3.4 g/dL (2.2-4.2); Glucose 87 mg/dL (70-99); Sodium Level 137 mmol/L (133-145); Total Bilirubin 0.41 mg/dL (0.00-1.30)
[2025-04-09 14:24] LABS: Internal QC Validated? YES +Cl - CLEAR BKGD; Pregnancy, Serum, hCG Quali. NEGATIVE Negative; Record Kit Lot#, Serum Preg. 929381
[2025-04-12 14:08] LABS: ANTINUCLEAR ANTIBODIES DIRECT Negative (Negative); EBV Acute VCA IgM < 36.0 U/mL (0.0-35.9); EBV Nuclear Antigen IgG 56.2 U/mL (0.0-17.9)
== END | disposition home or self-care (01) ==
LOC: BIMLAB 08:38
PROVIDERS: PCP Internal Medicine; Referring Provider Physician Assistant; Visit Provider Physician Assistant
DX: R53.82 Chronic fatigue, unspecified (principal)
CPT/HCPCS: 86225; 36415; 80053; 84443; 84703; 85025; 85652; 86038; 86140; 86664; 86665

== ENCOUNTER → 2025-05-03 | Outpatient (CLI) | payer MEDICAID, SELFPAY | END | disposition home or self-care (01) | LOC: SL 20:00 | PROVIDERS: PCP Internal Medicine; Visit Provider Physician Assistant | DX: G47.10 Hypersomnia, unspecified (principal) | CPT/HCPCS: 95810 ==

== ENCOUNTER → 2025-05-13 | Outpatient (CLI) | payer MEDICAID, SELFPAY ==
[2025-05-13 11:02] LABS: Vitamin B12 492 pg/mL (180-914); Vitamin D,25 Hydroxy 22.4 ng/mL (30-100)
== END | disposition home or self-care (01) ==
LOC: LAB 09:22
PROVIDERS: PCP Internal Medicine; Referring Provider Physician Assistant; Visit Provider Physician Assistant
DX: R53.82 Chronic fatigue, unspecified (principal)
CPT/HCPCS: 36415; 82306; 82607

== ENCOUNTER 2025-06-17 19:53 | Emergency (ER) | payer MEDICAID, SELFPAY ==
[2025-06-17 19:54] VITALS: BP 134/81; PULSE 65; RESP 16; TEMP 36.8; O2SAT 100; BMI 40.9
--- NOTE | 2025-06-17 20:45 | CT_ITS ---
PROCEDURE: BRAIN/HEAD WITHOUT CONTRAST 06/17/2025 REASON FOR EXAM: HEADACHE TECHNIQUE: BRAIN/HEAD WITHOUT CONTRAST Coronal and Sagittal reconstruction series were provided. One or more dose reduction techniques were used (e.g., Automated exposure control, adjustment of the mA and/or kV according to patient size, use of iterative reconstruction technique. RADIATION DOSE SUMMARY: CTDlvol: 44.99 mGy DLP: 796.11 mGycm COMPARISON: CT head 09/17/2023, brain MRI 02/01/2021. FINDINGS: No acute intracranial hemorrhage, extra-axial collection, mass effect or evidence of acute infarct. Ventricles and subarachnoid spaces are normal in size. Orbital contents are unremarkable. Intact skull base and calvarium. Clear paranasal sinuses and mastoid air cells. CT/Brain/Head without Contrast IMPRESSION: Normal head CT. Reading Location: [id number]
[2025-06-17] MEDS: DiphenhydrAMINE 50 MG/ML Syringe 25 MG IV (20:58)
[2025-06-17] MEDS: 0.9% Normal Saline (1000mL) 1,000 ML 1000 ML IV (20:58)
--- OUTSIDE RECORDS SUMMARY | 2025-06-17 21:01 | XMS RPT_ITS | CCD ---
Author Organization [facility] Inform ion Partnership [employer] [facility] Care Team Providers Care [place]. Senator Name Role Phone LIBIA GLEASON Unavailable Unavailable SUMMER CHANEY Unavailable Unavailable SUMMER CHANEY Unavailable Unavailable David Goss Unavailable Unavailable David Goss Unavailable Unavailable Summer Chaney Unavailable Unavailable RICKY MAE Unavailable Unavailable DEBRA SMITH Primary Care Unavailable RICKY EDEG Referring Unavailable LUIS TORRES, DEBRA Primary Care Physician Unavailable Primary Care Provider Unavailabl e No, Physician Primary Care Provider Unavailabl e No, Physician Primary Care Provider Unavailabl e No, Physician Primary Care Provider Unavailabl e Luis MUNSON, Debra Primary Care Provider Magda Kelly Primary Care Provider Ciaran Fritz MD Unavailable Magda Kelly Primary Care Provider [phone] Ciaran Fritz MD Unavailable JOHANA RESENDEZ Attending Unavailable LISA UPENDER Admitting Unavailable SAUL PETERSON Consulting Unavailable NO, PHYSICIAN Primary Care Unavailable BELGICA STRANGE Consulting Unavailable BELGICA STRANGE Admitting Unavailable NO, [...] Attending Unavailable NO, PHYSICIAN Primary Care Unavailable PHYSICIAN, PATIENT UNSURE Primary Care Physician Unavailable Magda Kelly Primary Care Provider Unavailable Primary Care Provider Unavailjacobo ST, DR. BOBBY RUBIO Primary Care Physician ELOY LUCERO MD Attending Unavailable PAMELA MARY MD Attending Unavail DR. BOBBY Covington Primary Care Unavail LISA Upton MD Attending Unavailable PHYSICIAN, PATIENT UNSURE Primary Care Unaaleena boudreaux PHYSICIAN, PATIENT UNSURE Primary Care ELOY Martinez MD Attending Unavailable PHYSICIAN, PATIENT UNSURE Primary Care LISA Choi MD Attending Unavailable JAZMINE MACIAS, ELOY Velázquez Attending Unavailable ANGI VELOZ DO Attending Unavailable MACIEL, DR. BOBBY RUBIO Primary Care Unavail able DEBRA SMITH Primary Care Unavailable Nasmarar Lucy Referring Unavailable SELF Referring Unavailable Rena Maya Attending Unavailable DAVID CARREON Referring Unavailable MAGDA KELLY Primary Care Unavailable Martin Ortiz Attending Unavailable Martin Ortiz Referring Unavailable Ferullo, Roxann Primary Care Unavailable Ferullo Roxann Attending Unavailable Ferullo, Roxann Referring Unavailable Ferullo, Roxann Primary Care Unavailable Ferullo Roxann Attending Unavailable Ferullo, Roxann Primary Care Unavailable Arslan Salas Attending Unavailable Arslan Salas Referring Unavailable Oleghe, Efewongbe Primary Care Unavailable Candida Vale Attending Unavailable Candida Vale Referring Unavailable Ferullo, Roxann Primary Care Unavailable Ferullo Roxann Attending Unavailable Ferullo, Roxann Referring Unavailable Ferullo, Roxann Primary Care Unavailable Bing Richards Attending Unavailable Bing Richards Referring Unavailable Ferullo, Roxann Primary Care Unavailable Arslan Salas Attending Unavailable Oleghe, Efewongbe Primary Care Unavailable Peggy Rodriguez Attending Unavailable Oleghe, Efewongbe Referring Unavailable Oleghe, Efewongbe Primary Care Unavailable Ferullo, Roxann Attending Unavailable Ferullo, Roxann Referring Unavailable Ferullo, Roxann Primary Care Unavailable Rodriguez, Peggy Attending Unavailable Ferullo, Roxann Primary Care Unavailable MAHIN EATON Attending Unavailable Ferullo, Roxann Referring Unavailable Ferullo, Roxann Primary Care Unavailable Ling Devine Attending Unavail able Oleghe, Efewongbe Referring Unavailable Oleghe, Efewongbe Primary Care Unavailable Rodriguez Peggy Attending Unavailable Ferullo, Roxann Primary Care Unavailable Ferullo, Roxann Attending Unavailable Labor, Micki Referring Unavailable Ferullo, Roxann Primary Care Unavailable Ferullo, Roxann Attending Unavailable Ferullo, Roxann Referring Unavailable Ferullo, Roxann Primary Care Unavailable Bing Richards Attending Unavailable DiLauro, Bing Referring Unavailable Ferullo, Roxann Primary Care Unavailable Bing Richards Attending Unavailable DiLauro Bing Referring Unavailable Ferullo, Roxann Primary Care Unavailable Candida Vale Attending Unavailable Rodriguez, Peggy Attending Unavailable Rodriguez, Peggy Attending Unavailable Ferullo, Roxann Primary Care Unavailable Martin Ortiz Attending Unavailable Ferullo, Roxann Referring Unavailable Ferullo, Roxann Primary Care Unavailable Arslan Salas Attending Unavailable Arslan Salas Referring Unavailable Oleghe, Efewongbe Primary Care Unavailable Martin Ortiz Attending Unavailable Ferullo, Roxann Referring Unavailable Ferullo, Roxann Primary Care Unavailable Tiny Arreola Attending Unavailabl e Ferullo, Roxann Primary Care Unavailable Candida Vale Attending Unavailable Ferullo, Roxann Referring Unavailable Ferullo, Roxann Primary Care Unavailable Rodriguez, Peggy Attending Unavailable Ferullo, Roxann Primary Care Unavailable Rodriguez, Peggy Attending Unavailable Ferullo, Roxann Primary Care Unavailable Rodriguez, Peggy Attending Unavailable Rodriguez, Peggy Attending Unavailable Arslan Salas Attending Unavailable Rodriguez, Peggy Attending Unavailable Oleghe, Efewongbe Referring Unavailable Oleghe, Efewongbe Primary Care Unavailable Rodriguez, Peggy Attending Unavailable Ferullo, Roxann Primary Care Unavailable Rodriguez, Peggy Attending Unavailable Ferullo, Roxann Primary Care Unavailable Allergies Allergy Classification Reported Allergen(s) Allergy Type Date of Onset Reaction(s) Facility Cephalosporins (antibiotic) (1 source) cefdinir Drug Allergy 03-18-20 15 Other: See Comments [facility] Work Phone: Penicillins (antibiotic) (1 source) Penicillins Drug Allergy 01-14-20 09 Rash [facility] Work Phone: Serotonin Reuptake Inhibitors (SSRIs) (1 source) FLUoxetine Drug Allergy 09-02-20 14 Other: See Comments [facility] (20 sources) Penicillins; Translations: [PENICILLINS] Propensity to adverse reactions to drug (disorder) 01-14-20 09 Rash [facility] Repository (1 source) cefdinir; Translations: [Omnicef] Drug Allergy [facility] Repository (1 source) FLUoxetine; Translations: [PROzac] Drug Allergy [facility] Repository (20 sources) penicillin; Translations: [penicillin] Drug Allergy [facility] Repository (11 sources) cefdinir; Translations: [CEFDINIR] Drug Allergy 03-18-20 15 Other: See Comments, Other, Unknown [facility] Repository (6 sources) FLUoxetine; Translations: [FLUOXETINE HCL] Drug Allergy 09-02-20 14 Other: See Comments [facility] Repository (7 sources) Seasonal allergy; Translations: [SEASONAL ALLERGIES] Propensity to adverse reactions (disorder) 03-06-20 12 Other: See Comments [facility] Repository (19 sources) Penicillin G Drug Allergy 08-14-20 [facility] (10 sources) liraglutide; Translations: [LIRAGLUTIDE] Drug Allergy 09-18-20 23 Other [facility] (4 sources) FLUoxetine; Translations: [FLUOXETINE] Drug Allergy 07-10-20 21 Other (See Comments), Unknown [facility] Repository (1 source) liraglutide Drug Allergy 09-18-20 23 Other (See Comments) [facility] (1 source) Tricyclic Antidepressants and Tricy Drug allergy (disorder) 04-07-20 [facility] Repository (1 source) dragon fruit Drug allergy (disorder) 04-07-20 [facility] Repository Medications Current Medications Medication Drug Class(es) Dates Sig (Normalized) Sig (Original) + Nebulizer Supplies (5 sources) Start: 01-29-2017 + Nebulizer Supplies Nebulizer, Mask, & O2 Tubing. Use as directed. 1 Each 01/29/2017 Active Start: 01-29-2017 + Nebulizer Milligan pplies Nebulizer, Mask, & O2 Tubing. Use as directed. 1 Each 0 01/29/2017 Active Comment on above: Nebulizer, Mask, & O 2 Tubing. Use as directed. acetaminophen 325 mg / HYDROcodone bitartrate 5 mg oral tablet (2 sources) Opioid Agonist Start: 05-09-2024 End: 05-12-2024 take 1 tablet by mouth every six hours as needed for pain [place] 325- 5 mg oral tablet Dose = 1 tab(s), Oral, q6h, PRN for pain, X 3 day(s), # 12 tab(s), 0 Refill(s), Pain pelvic, 77.3 Start Date: 05/09/24 Stop Date: 05/12/24 Status: Ordered acetaminophen 325 mg / oxyCODONE hydrochloride 5 [...] Date: 05/31/23 Stop Date: 06/03/23 Status: Ordered Start: 01-29-2022 End: 02-05-2022 take 1 tablet by mouth every four hours as needed for pain Percocet 5 mg-325 mg oral tablet Dose = 1 tab(s), Oral, q4h, PRN for pain, X 7 day(s), # 20 tab(s), 0 Refill(s), [facility] [facility], S/P section Post-op pain, 142.2, cm, 01/29/22 6:36:00 EST, Height, 80, kg, 01/29/22 6:36:00 EST, Dosing Weight Start Date: 01/29/22 Stop Date: 02/05/22 Status: Ordered albuterol 108 (90 Base) MCG/ACT inhaler (20 sources) take 2 puff(s) by in halation every six hours as needed for wheezing albuterol 108 (90 Base) MCG/ACT inhaler Inhale 2 puffs every 6 hours as needed for wheezing. Active take 2 puff(s) by in halation every six hours as needed for wheezing albuterol 108 (90 Base) MCG/ACT inhaler Inhale 2 puffs every 6 hours as needed for wheezing. 0 Active Alcohol Swabs (6 sources) Start: 11-01-2021 Alcohol Swabs See Instructions, Dispense 100 Use 4x daily Diagnosis: Gestational Diabetes, # 100 EA, 5 Refill(s), Pharmacy: [facility], Anxiety, 142.2, cm, 10/31/21 10:02:00 EST, Height, 78.5, kg, 10/13/21 16:44:00 EST, Dosing Weight Start Date: 11/01/21 Status: Ordered azithromycin 500 mg oral tablet (6 sources) Macrolide Antimicrobial Start: 03-05-2023 End: 03-10-2023 take 1 tablet by mouth once daily azithromycin (ZITHROMAX) 500 mg tablet Take 1 tablet by mouth once daily for 5 days. 5 tablet 0 03/05/2023 03/10/2023 Active Start: 12-29-2018 azithromycin ( ZITHROMAX) 250 mg tablet 0 12/29/2018 Active Comment on above: Take 1 tablet by dong once daily for 5 days. Blood Glucose Test Machine (6 sources) Start: 11-01-20 Blood Glucose Test Machine See Instructions, Use as directed Brand type per insurance or patient preference Diagnosis: Gestational Diabetes, # 1 EA, 0 Refill(s), Pharmacy: [facility], Anxiety, 142.2, cm, 10/31/21 10:02:00 EST, Height, 78.5, kg, 10/13/21... Start Date: 11/01/21 Status: Ordered brompheniramine maleate 0.4 mg/ml / dextromethorphan hydrobromide 2 mg/ml / pseudoephedrine hydrochloride 6 mg/ml oral solution (5 sources) alpha-Adrenergic Agonist, Uncompetitive L-xroyrd-S-aspartate Receptor Antagonist, Sigma-1 Agonist Start: 06-26-20 take 5 mL by mouth four times daily as needed Brompheniramine-Ps eudoeph-DM (BROMFED DM) 2-30-10 mg/5 mL syrup Indications: URI, acute Take 5 mL by mouth four times daily as needed. 120 mL 06/26/2017 Active Comment on above: Take 5 mL by mouth f our times daily as needed. Calcium Carbonate / vitamin D3 (5 sources) CALCIUM CARBONATE/VITAMIN D3 (VITAMIN D-3 ORAL) Indications: VUR (vesicoureteric reflux) , Urinary frequency Take by mouth 3 times a WEEK. Active CALCIUM CARBONAT E/VITAMIN D3 (VITAMIN D-3 ORAL) Indications: VUR (vesicoureteric reflux) , Urinary frequency Take by mouth 3 times a WEEK. 0 Active Comment on above: Take by mouth 3 time s a WEEK. cetirizine hydrochloride 10 mg oral tablet (17 sources) Histamine-1 Receptor Antagonist Start: 08-07-20 cetirizine (ZyrTEC) 10 MG tablet 08/07/2023 Active ciprofloxacin 0.003 mg/mg ophthalmic ointment (2 sources) Quinolone Antimicrobial Start: 03-20-20 End: 03-30-20 ciprofloxacin (Ciloxan) 0.3 % ophthalmic ointment Apply to right eye 4 times daily for 10 days. Apply Amount per Dose: 0.5 inch (~1 cm) per dose. 3.5 g 03/20/2025 03/30/2025 Active clindamycin 300 mg oral capsule (3 sources) Lincosamide Antibacterial Start: 12-24-19 End: 12-28-19 take 1 capsule by mouth twice daily clindamycin (CLEOCIN) 300 MG capsule Take 1 (one) capsule (300 mg total) by mouth 2 (two) times a day for 4 days . 8 capsule 0 12/24/2022 12/28/2022 Active Start: 12-21-2022 End: 12-24-2022 clindamycin (CLEOCIN) capsul e 300 mg cloNIDine hydrochloride 0.1 mg oral tablet (3 sources) Central alpha-2 Adrenergic Agonist Start: 09-19-2023 End: 10-20-2023 take 1 tablet by mouth at bedtime cloNIDine HCL (CATAPRES) 0.1 MG tablet Take 1 (one) tablet (0.1 mg total) by mouth at bedtime . 30 tablet 0 09/20/2023 10/20/2023 Active cyclobenzaprine hydrochloride 10 mg oral tablet (1 source) Muscle Relaxant Start: 03-07-2024 End: 03-12-2024 cyclobenzaprine 10 mg oral tablet Dose : 10 mg = 1 tab(s), Oral, TID, X 5 day(s), # 15 tab(s), 0 Refill(s), 03/12/24 8:07:00 PM EDT, Pharmacy: [facility], 142.2, cm, 03/07/24 19:16:00 EDT, Height, kg, 03/07/24 19:16:00 EDT, Dosing Weight Start Date: 03/07/24 Stop Date: 03/12/24 Status: Ordered Diclegis 10 mg-10 mg oral delayed release tablet (4 sources) Start: 08-18-2021 take 1 tablet by mouth before breakfast, then take 2 tablets by mouth once daily at bedtime Diclegis 10 mg-10 mg oral delayed release tablet Take 1 tab before breakfast & 2 tab(s) at bedtime, Oral, Daily, # 90 tab(s), 0 Refill(s), 147.9, cm, 08/04/21 9:16:00 EDT, Height, kg, 07/10/21 7:33:00 EDT, Dosing Weight Start Date: 08/18/21 Status: Ordered Start: 08-18-2021 take 1 tablet by dong th before breakfast, then take 2 tablets by mouth once daily at bedtime Diclegis 10 mg-10 mg oral delayed release tablet Take 1 tab before breakfast & 2 tab(s) at bedtime, Oral, Daily, # 90 tab(s), 0 Refill(s), [facility]: [facility], 147.9, cm, 08/04/21 9:16:00 EDT, Height, kg, 07/10/21 7:33:00 EDT, Dosing Weight Start Date: 08/18/21 Status: Ordered escitalopram 10 mg oral tablet (5 sources) Serotonin Reuptake Inhibitor Start: 01-11-2020 take 1 tablet by mouth once daily escitalopram oxalate (LEXAPRO) 10 mg tablet Take 1 tablet by mouth once daily. 01/11/2020 Active Comment on above: Take 1 tablet by dong th once daily. ferrous sulfate 325 mg oral tablet (6 sources) Start: 03-22-2022 IRON (ferrous sulfate 325 mg) 65 mg oral tablet Dose : 325 mg = 1 tab(s), Oral, BIDM, Take with food., # 60 tab(s), 3 Refill(s) Start Date: 03/22/22 Status: Ordered Start: 01-31-2022 ferrous sulfat e 325 mg (65 mg iron) EC tablet Take 325 mg by mouth. 01/31/2022 Active Comment on above: Take 325 mg by mouth . ferrous sulfate 325 mg (65 mg elemental iron) oral delayed release tablet (1 source) Start: 01-31-2022 ferrous sulfate 325 mg (65 mg elemental iron) oral delayed release tablet Dose : 325 mg = 1 tab(s), Oral, BID, # 60 tab(s), 2 Refill(s), [facility]: [facility] [facility], 142.2, cm, 01/29/22 6:36:00 EST, Height, kg, 01/29/22 6:36:00 EST, Dosing Weight Start Date: 01/31/22 Status: Ordered FLUoxetine 10 mg oral capsule (20 sources) Serotonin Reuptake Inhibitor Start: 06-26-2023 End: 07-21-2024 FLUoxetine (PROZAC) 10 mg capsule 07/19/2023 Active Start: 04-16-2022 End: 10-10-2022 PROzac 10 mg oral capsule Do se : 10 mg = 1 cap(s), Oral, qDay, # 30 cap(s), 2 Refill(s), Pharmacy: [facility], 147, cm, 04/16/22 13:09:00 EDT, Height Start Date: 04/16/22 Stop Date: 07/15/22 Status: Ordered Start: 02-20-2022 End: 06-14-2022 take 1 capsule by mouth once daily FLUoxetine (PROZAC) 20 MG capsule Take 1 (one) capsule (20 mg total) by mouth daily Start: 02/20/22. 30 capsule 0 02/20/2022 06/14/2022 Discontinued (Reorder) take 1 tablet by dong th once daily FLUoxetine (PROzac) 10 MG tablet Take 10 mg by mouth daily. 0 Active fluticasone propionate 0.05 mg/actuat metered dose nasal spray (5 sources) Corticosteroid Start: 02-18-2017 take 2 spray(s) nasal route once daily fluticasone (FLONASE) 50 mcg/actuation nasal spray Use 2 Sprays in each nostril once daily. 1 g 6 02/18/2017 Active Comment on above: Use 2 Sprays in each nostril once daily. 60 actuat formoterol fumarate 0.005 mg/actuat / mometasone furoate 0.1 mg/actuat metered dose inhaler (5 sources) Corticosteroid, beta2-Adrenergic Agonist Start: 12-30-2018 take 2 puff(s) by inhalation twice daily mometasone-formote rol (DULERA) 100-5 mcg/actuation inhaler Indications: Mild persistent asthma, uncomplicated , Cough , Allergic rhinitis, unspecified seasonality, unspecified trigger Inhale 2 Puffs as instructed twice daily. 1 Inhaler 3 12/30/2018 Active Comment on above: Inhale 2 Puffs as in structed twice daily. ibuprofen 600 mg oral tablet (9 sources) Nonsteroidal Anti-inflammatory Drug Start: 06-11-2017 End: 12-24-2022 take 1 tablet by mouth every six hours as needed ibuprofen (MOTRIN) 600 mg tablet Take 1 tablet by mouth every 6 hours as needed for Pain. 28 tablet 06/11/2017 Active End: 12-24-2022 ibuprofen (ADVIL,MOTRIN) 200 MG tablet Take 2 (two) tablets (400 mg total) by mouth as needed for pain . 0 12/24/2022 Discontinued (Stop Taking at Discharge) Comment on above: Take 1 tablet by [facility] every 6 hours as needed for Pain. ketorolac tromethamine 10 mg oral tablet (1 source) Nonsteroidal Anti-inflammatory Drug, Cyclooxygenase Inhibitor Start: 03-07-20 End: 03-10-20 ketorolac 10 mg oral tablet Dose : 10 mg = 1 tab(s), Oral, QID, PRN as needed for pain, not to exceed 40 mg/day and 5 days duration for all dose forms, X 3 day(s), # 12 tab(s), 0 Refill(s), 03/10/24 8:05:00 PM EDT, Pharmacy: [facility], 142.2, cm, 03/07/24 19:16:00 EDT, Height, kg, 03/07/24 19:16:00 EDT, Dosing Weight Start Date: 03/07/24 Stop Date: 03/10/24 Status: Ordered lamoTRIgine 100 mg oral tablet (20 sources) Mood Stabilizer, Anti-epileptic Agent Start: 12-10-19 take 0.5 tablet by mouth once daily lamoTRIgine (LAMICTAL) 100 mg tablet Take 100 mg by mouth once daily. 1/2 tablet daily 12/10/2023 Active Start: 09-21-2023 End: 10-31-2023 lamoTRIgine (LaMICtal) 25 MG tablet 1 (one) tablet (25 mg total) daily for 13 days, THEN 2 (two) tablets (50 mg total) daily for 14 days, THEN 4 (four) tablets (100 mg total) daily for 14 days. Patient to monitor for rash/fever 0 09/21/2023 Active Start: 09-20-2023 End: 09-20-2023 lamoTRIgine (LAMICTAL) table t 25 mg Start: 11-28-2022 End: 12-28-2022 take 1 tablet by mouth once daily lamoTRIgine (LAMICTAL) 150 MG tablet Take 1 (one) tablet (150 mg total) by mouth daily . 30 tablet 1 11/28/2022 12/20/2022 Discontinued (Ineffective) Start: 03-22-2022 End: 11-09-2022 lamoTRIgine 150 mg oral tabl et Dose : 150 mg = 1 tab(s), Oral, qDay, TAKE 1 TABLET BY MOUTH EVERY DAY, # 30 tab(s), 2 Refill(s), Pharmacy: [facility], 147, cm, 04/16/22 13:09:00 EDT, Height Start Date: 04/16/22 Stop Date: 07/15/22 Status: Ordered Start: 02-23-2022 End: 04-05-2022 take 1 tablet by mouth once daily lamoTRIgine (LAMICTAL) 100 MG tablet Take 1 (one) tablet (100 mg total) by mouth daily Start: 02/27/22. 30 tablet 0 02/27/2022 04/05/2022 Discontinued Start: 02-20-2022 End: 02-26-2022 take 1 tablet by mouth once daily lamoTRIgine (LAMICTAL) 25 MG tablet Take 1 (one) tablet (25 mg total) by mouth daily Start: 02/20/22. 30 tablet 0 02/20/2022 02/26/2022 Discontinued (Stop Taking at Discharge) lansoprazole 30 mg delayed release oral capsule (6 sources) Proton Pump Inhibitor Start: 08-22-2023 End: 09-05-2023 take 1 capsule by mouth twice daily lansoprazole (Prevacid) [address] capsule Indications: H. pylori infection Take 1 capsule (30 mg) by mouth 2 times daily for 14 days. Do not crush or chew. 28 capsule 0 08/22/2023 Active lurasidone hydrochloride 80 mg oral tablet (13 sources) Atypical Antipsychotic Start: 12-10-2023 lurasidone (LATUDA) 80 mg tablet 12/10/2023 Active Start: 09-20-2023 End: 09-20-2023 lurasidone (LATUDA) tablet 6 0 mg Start: 09-20-2023 lurasidone (La tuda) 60 MG tablet Take 80 mg by mouth. 09/20/2023 Active Start: 09-20-2023 End: 10-20-2023 lurasidone (Latuda) 60 MG ta blet Take 60 mg by mouth. 0 09/20/2023 Active Start: 09-18-2023 End: 09-19-2023 lurasidone (LATUDA) tablet 4 0 mg magnesium oxide 250 mg oral tablet (1 source) Start: 03-22-2022 Magnesium 250 mg tablet Dose : 500 mg = 2 tab(s), Oral, qDay, 0 Refill(s) Start Date: 03/22/22 Status: Ordered meclizine hydrochloride 25 m g oral tablet (9 sources) Antiemetic Start: 06-26-2023 meclizine (ANT IVERT) 25 mg tab 06/26/2023 Active Start: 06-26-2023 End: 09-20-2023 meclizine (ANTIVERT) 25 MG c hewable tablet Chew and Swallow 1 (one) tablet (25 mg total) 3 (three) times a day as needed . 30 tablet 0 06/26/2023 09/20/2023 Discontinued (Stop Taking at Discharge) meloxicam 15 mg oral tablet (5 sources) Nonsteroidal Anti-inflammatory Drug Start: 03-11-2017 take 1 tablet by mouth once daily meloxicam (MOBIC) 15 mg tablet Take 1 tablet by mouth once daily. 30 tablet 1 03/11/2017 Active Comment on above: Take 1 tablet by dong th once daily. metFORMIN hydrochloride 500 mg oral tablet (5 sources) Biguanide Start: 06-03-2018 take 1 tablet by mouth twice daily at mealtime metFORMIN (GLUCOPHAGE) 500 mg tablet Take 1 tablet by mouth twice daily with meals. 60 tablet 6 06/03/2018 Active Comment on above: Take 1 tablet by dong th twice daily with meals. methylPREDNISolone (1 source) Corticosteroid Start: 07-20-2023 End: 07-26-2023 methylPREDNISolone (MEDROL, SARAH,) 4 mg Dose-Pack Follow dosing instructions, take with food. 21 tablet 0 07/20/2023 07/26/2023 Active Comment on above: Follow dosing instru ctions, take with food. metoclopramide 10 mg oral tablet (14 sources) Dopamine-2 Receptor Antagonist Start: 09-20-2021 metoclopramide HCl (REGLAN) 10 mg tablet Take 10 mg by mouth. 09/20/2021 Active Comment on above: Take 10 mg by mouth. metroNIDAZOLE 500 mg oral tablet (5 sources) Nitroimidazole Antimicrobial Start: 05-08-2024 End: 05-15-2024 metroNIDAZOLE 500 mg oral tablet Dose : 500 mg = 1 tab(s), Oral, BID, X 7 day(s), # 14 tab(s), 0 Refill(s), 05/15/24 5:43:00 PM EDT, Pharmacy: [facility], 142.2, cm, 05/08/24 15:35:00 EDT, Height, 77, kg, 05/08/24 15:35:00 EDT, Dosing Weight Start Date: 05/08/24 Stop Date: 05/15/24 Status: Ordered Start: 08-22-2023 End: 09-05-2023 take 1 tablet by mouth three times daily metroNIDAZOLE (Flagyl) 500 MG tablet Indications: H. pylori infection Take 1 tablet (500 mg) by mouth 3 times daily for 14 days. 42 tablet 0 08/22/2023 09/05/2023 Multiple Vitamins-Iron (MULTIVITAMIN/IRON PO) (20 sources) Start: 06-03-2023 take 1 tablet by mouth once daily Multiple Vitamins-Iron (MULTIVITAMIN/IRON PO) Take 1 tablet by mouth daily. 06/03/2023 Active Start: 06-03-2023 take 1 tablet by dong th once daily Multiple Vitamins-Iron (MULTIVITAMIN/IRON PO) Take 1 tablet by mouth daily. 0 06/03/2023 Active mv-mn/iron fum/FA/omega3,6,9 #3 (WOMEN'S MULTI ORAL) (11 sources) take 1 tablet by mouth once daily mv-mn/iron fum/FA/omega3,6,9#3 (WOMEN'S MULTI ORAL) Take 1 tablet by mouth daily . 0 Active take 1 tablet by mouth once lemuel y mv-mn/iron fum/FA/omega3,6,9#3 (WOMEN'S MULTI ORAL) Take 1 tablet by mouth daily . 0 nebulizer accessories(OPTICHAMBER MEDIUM FACE MASK) (5 sources) Start: 05-24-2010 nebulizer accessories(OPTICHAMBER MEDIUM FACE MASK) use with albuterol 1 2 05/24/2010 Active Comment on above: use with albuterol nitrofurantoin, macrocrystals 100 mg oral capsule (1 source) Nitrofuran Antibacterial Start: 12-13-2021 End: 12-20-2021 Macrobid 100 mg oral capsule Dose : 100 mg = 1 cap(s), Oral, BID, Take with food, X 7 day(s), # 14 cap(s), 0 Refill(s), 12/20/21 16:24:00 EST, [facility]acy: [facility], 142.2, cm, 12/13/21 15:32:00 EST, Height, 76, kg, 12/13/21 15:32:00 EST, Dosing Weight Start Date: 12/13/21 Stop Date: 12/20/21 Status: Ordered OLANZapine 7.5 mg oral tablet (3 sources) Atypical Antipsychotic Start: 10-31-2022 End: 11-30-2022 take 1 tablet by mouth once daily OLANZapine (ZYPREXA) 7.5 MG tablet Take 1 (one) tablet (7.5 mg total) by mouth nightly . 30 tablet 2 10/31/2022 11/30/2022 Active Start: 10-10-2022 End: 11-09-2022 take 1 tablet by mouth once daily OLANZapine (ZYPREXA) 5 MG tablet Take 1 (one) tablet (5 mg total) by mouth nightly . 30 tablet 0 10/10/2022 10/31/2022 Discontinued (Reorder (Suppress CancelRx Message to Pharmacy)) ondansetron 4 mg oral tablet (8 sources) Serotonin-3 Receptor Antagonist Start: 03-07-2024 End: 03-12-2024 Zofran 4 mg oral tablet Dose : 4 mg = 1 tab(s), Oral, q8h, PRN Nausea/Vomiting, X 5 day(s), # 15 tab(s), 0 Refill(s), 03/12/24 8:05:00 PM EDT, Pharmacy: [facility], 142.2, cm, 03/07/24 19:16:00 EDT, Height, kg, 03/07/24 19:16:00 EDT, Dosing Weight Start Date: 03/07/24 Stop Date: 03/12/24 Status: Ordered Start: 05-31-2023 ondansetron or ally disintegrating (ZOFRAN ODT) 4 mg disintegrating tablet Take 4 mg by mouth. 05/31/2023 Active Start: 10-10-2021 Zofran 4 mg or al tablet Dose : 4 mg = 1 tab(s), Oral, q6h, PRN Nausea/Vomiting, # 20 tab(s), 1 Refill(s), Pharmacy: [id number] 142.2, cm, 09/28/21 10:02:00 EDT, Height, kg, 09/19/21 10:24:00 EDT,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 sources) Hyperemesis gravidarum 01-10-2022 Episodic Other connective tissue disease (2 sources) Muscle pain; Translations: [Myalgia, unspecified site] Onset: 4 Episodic Other ear and sense organ disorders (20 sources) Impacted cerumen 10-07-2020 Episodic Other endocrine disorders (8 sources) Polycystic ovary syndrome 09-05-2022 Chronic Other eye disorders (4 sources) Contact lens related corneal abrasion; Translations: [Corneal disorder due to contact lens, right eye] 03-20-2025 Episodic Other eye disorders (2 sources) Corneal disorder due to contact lens, right eye; Translations: [Corneal disorder due to contact lens, right eye] Onset: 5 Episodic Other gastrointestinal disorders (1 source) Irritable bowel syndrome with constipation; Translations: [Irritable bowel syndrome with constipation] Onset: 4 Chronic Other gastrointestinal disorders (1 source) Irritable bowel syndrome characterized by constipation; Translations: [Irritable bowel syndrome with constipation] 09-02-2024 Chronic Other lower respiratory disease (2 sources) Snoring; Translations: [Snoring] 06-13-2023 Episodic Other lower respiratory disease (4 sources) Dyspnea; Translations: [Shortness of breath] 08-14-2023 Episodic Other nervous system disorders (20 sources) H/O: migraine 08-10-2019 Episodic Other nervous system disorders (1 source) Postoperative pain ; Translations: [Other acute postprocedural pain] Onset: 2 Episodic Other non-traumatic joint disorders (1 source) Pain in left knee; Translations: [Pain in joint, lower leg] 07-20-2023 Episodic Other non-traumatic joint disorders (3 sources) Pain in right shoulder; Translations: [Pain in joint, shoulder region] Onset: 4 06-11-2024 Episodic Other nutritional; endocrine; and metabolic disorders (14 sources) Body mass index 40+ - severely obese; Translations: [Morbid (severe) obesity due to excess calories] Chronic Other nutritional; endocrine; and metabolic disorders (20 sources) Morbid obesity; Translations: [Morbid (severe) obesity due to excess calories] Onset: 3 04-25-2023 Chronic Other nutritional; endocrine; and metabolic disorders (1 source) Obesity caused by energy imbalance; Translations: [Morbid (severe) obesity due to excess calories] 05-29-2023 Chronic Other nutritional; endocrine; and metabolic disorders (8 sources) H/O: endocrine disorder 09-04-2022 Episodic Other nutritional; endocrine; and metabolic disorders (8 sources) Overweight 09-04-2022 Episodic Other nutritional; endocrine; and metabolic disorders (8 sources) Weight gain 09-04-2022 Episodic Other nutritional; endocrine; and metabolic disorders (1 source) Polydipsia; Translations: [Polydipsia] Onset: 5 Episodic Other and delivery including normal (18 sources) Onset: 1 06-06-2021 Episodic Comment on above: System added from do cumentation. Status documented as Yes on Admission Other screening for suspected conditions (not mental disorders or infectious disease) (1 source) Decreased vitamin D; Translations: [Other specified abnormal findings of blood chemistry] 06-03-2023 Episodic Other upper respiratory disease (5 sources) Allergic rhinitis; Translations: [Allergic rhinitis, unspecified] Onset: 3 10-07-2013 Chronic Other upper respiratory disease (1 source) Pain in throat; Translations: [Pain in throat] Episodic Other upper respiratory infections (1 source) Streptococcal sore throat; Translations: [Streptococcal pharyngitis] Episodic Residual codes; unclassified (1 source) Hypersomnia, unspecified; Translations: [Hypersomnia, unspecified] Onset: 5 Chronic Residual codes; unclassified (20 sources) Insomnia 04-11-2021 Episodic Residual codes; unclassified (1 source) Previous uterine surgical scar; Translations: [History of uterine scar from previous surgery] Onset: 2 Episodic Residual codes; unclassified (1 source) Sleep disorder; Translations: [Sleep disorder, unspecified] 08-29-2023 Episodic Schizophrenia and other psychotic disorders (20 sources) Schizoaffective disorder, bipolar type; Translations: [Schizoaffective disorder, bipolar type] Onset: 3 12-20-2022 Chronic Unclassified (1 source) Pain, unspecified; Translations: [Pain, unspecified] Onset: 8 Unclassified (2 sources) Medication Management Onset: 3 Past or Other Problems Problem Classification Problem Date Documented Da te Episodic/Chronic Administrative/social admission (5 sources) Patient encounter status; Translations: [Dietary counseling and surveillance] Onset: 11-12-2013 11-12-2013 Episodic Allergic reactions (5 sources) Allergic disposition; Translations: [Allergy status to unspecified drugs, medicaments and biological substances status] Onset: 03-06-2012 03-06-2012 Episodic Conditions associated with dizziness or vertigo (20 sources) Dizziness; Translations: [Dizziness and giddiness] Onset: 10-09-2013 10-11-2020 Episodic Contraceptive and procreative management (1 source) Encounter for contraceptive management, unspecified; Translations: [Encounter for contraceptive management, unspecified] Onset: 09-10-2024 Episodic Diabetes mellitus without complication (20 sources) Prediabetes; Translations: [Prediabetes] Onset: 05-01-2023 Episodic Fracture of upper limb (3 sources) Open fracture of hand; Translations: [Fracture of unspecified phalanx of unspecified finger, initial encounter for open fracture] Onset: 05-25-2003 Resolved: 05-10-2012 05-10-2012 Episodic Gastrointestinal hemorrhage (1 source) Melena; Translations: [Melena] Onset: 07-20-2024 Episodic Genitourinary symptoms and ill-defined conditions (20 sources) History of urinary tract infection; Translations: [Personal history of urinary (tract) infections] Onset: 08-20-2006 Resolved: 05-10-2012 05-01-2023 Episodic Headache; including migraine (7 sources) Headache; Translations: [Headache] Onset: 10-09-2013 11-04-2018 Episodic Immunizations and screening for infectious disease (3 sources) Encounter for screening for infections with a predominantly sexual mode of transmission; Translations: [Contact with and (suspected) exposure to infections with a predominantly sexual mode of transmission] Onset: 09-01-2024 Episodic Intracranial injury (20 sources) Traumatic brain injury; Translations: [Traumatic brain injury] Onset: 05-10-2012 08-10-2019 Episodic Malaise and fatigue (1 source) Other fatigue; Translations: [Other fatigue] Onset: 08-20-2024 Episodic Miscellaneous mental health disorders (3 sources) At risk for suicide; Translations: [Other symptoms and signs involving emotional state] Onset: 12-19-2014 Resolved: 02-18-2017 02-18-2017 Episodic Mood disorders (5 sources) Disturbance in mood; Translations: [Emotional lability] Onset: 12-19-2014 12-19-2014 Episodic Nausea and vomiting (20 sources) Nausea; Translations: [Nausea] Onset: 07-01-2024 10-07-2020 Episodic Other complications of (20 sources) Bipolar II disorder, most recent episode major depressive with onset; Translations: [Other mental disorders complicating the puerperium] Onset: 02-15-2022 Episodic Other congenital anomalies (3 sources) Congenital deformity of hip joint; Translations: [Other specified congenital deformities of hip] Onset: 11-20-2002 Resolved: 05-10-2012 05-10-2012 Chronic Other diseases of kidney and ureters (3 sources) Vesicoureteric reflux; Translations: [Vesicoureteral-refl ux, unspecified] Onset: 09-04-2006 Resolved: 05-10-2012 05-10-2012 Episodic Other injuries and conditions due to external causes (1 source) Unspecified injury of right foot, initial encounter; Translations: [Unspecified injury of right foot, initial encounter] Onset: 09-12-2024 Episodic Other injuries and conditions due to external causes (1 source) Unspecified injury of unspecified foot, initial encounter; Translations: [Unspecified injury of unspecified foot, initial encounter] Onset: 08-20-2024 Episodic Other nervous system disorders (5 sources) Tremor; Translations: [Tremor, unspecified] Onset: 10-09-2013 10-09-2013 Episodic Other non-traumatic joint disorders (5 sources) Ankle pain; Translations: [Pain in unspecified ankle and joints of unspecified foot] Onset: 03-04-2012 03-04-2012 Episodic Other non-traumatic joint disorders (1 source) Pain in unspecified joint; Translations: [Pain in unspecified joint] Onset: 10-05-2024 Episodic Other nutritional; endocrine; and metabolic disorders (5 sources) General finding of height; Translations: [Short stature (child)] Onset: 02-14-2014 02-14-2014 Episodic Other nutritional; endocrine; and metabolic disorders (5 sources) Body mass index 25-29 - overweight; Translations: [Overweight] Onset: 07-01-2014 07-01-2014 Episodic Pancreatic disorders (not diabetes) (12 sources) Acute pancreatitis; Translations: [Other acute pancreatitis with uninfected necrosis] Onset: 08-23-2023 08-23-2023 Episodic Residual codes; unclassified (5 sources) Amnesia; Translations: [Other amnesia] Onset: 08-13-2017 08-13-2017 Episodic Sprains and strains (5 sources) Sprain of ankle; Translations: [Sprain of [...] Results Test Name Value Interpretation Reference Range Facility MR/BMSLesviaChelsey 06-10-2025 MR/[place] [address] OFFICE VISIT Date of Service: 06/10/25 MR#: [id number] Acct: [id number] Name: MARYMARTITA DIA Rep #: [birth year] : 2000 Provider: SREE kelly Age/Sex: 25/F Location: [facility] Status: Signed Intake Vital Signs 04/29/25 09:00 06/07/25 06:48 06/10/25 10:24 Height 4 ft 8 in 4 ft 8 in 4 ft 8 in BP Intake Visit Reasons: 6-8 wfu Allergies dragon fruit Allergy (Intermediate, Verified 04/07/25 10:24) rash Penicillins Allergy (Verified 04/07/25 10:24) Rash fluoxetine (From Prozac) Adverse Reaction (Mild, Verified 04/07/25 10:24) Other Tricyclic Antidepressants and Tricy Adverse Reaction (Verified 04/07/25 10:24) adverse 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 current occupational exposures/hazards: No pets and animals: No history of recent travel: No sexually active: No other: female Smoking Status: Never smoker Tobacco: How many years used: 0 Electronic Cigarette Use: not used second hand exposure: Yes alcohol intake: former substance use type: does not use caffeine: Yes eating out: rarely or never during the past year weight has: decreased > 10 lbs frequency: 3-4 times per week duration: 30-45 minutes/day leti/christianity: baptist seatbelt use: always do you feel safe at home: Yes additional social history: -no contact - not HPI History of Present Illness History provided by: patient Chief complaint: Anxiety HPI: Martita Hernandez is a 25 year old female patient presenting today for a virtual follow up evaluation. Reports she has been doing well, mostly since last appointment. Reports she has recently moved and is having increased stress due to this. Was doing well until recent move. Has been feeling anxious daily with recent stressors over the lat week. Is starting a new job on Saturday 8a-5p and is hopeful this change in schedule will be better for her. Reports she has had one panic attack since last appointment. Admits to having difficulties getting motivated and doing ADLs including showering. Admits to some passive SI. Denies plan or intent. Does feel anxiety is worsened in the evening. Reports poor sleep recently. Does not feel well rested. Appetite has been increased recently.Has gained about 15 pounds since March. This tele-medicine visit was performed via audio/video technology. Previous similar episode: Yes Age of first onset of symptoms: 11-20 years Review of Systems Constitutional Reports: change in weight (gain), fatigue and change in sleep pattern; Denies: fever(s) or chills Eyes Denies: change in vision, blurry vision, photophobia, eye discomfort or eye discharge Ears, Nose, Mouth, Throat Denies: dysphagia, hoarseness, ear or mastoid pain, ear discharge, change in hearing, tinnitus, nasal congestion or epistaxis Cardiovascular Denies: chest pain or dyspnea Respiratory Denies: dyspnea, cough or wheezing Gastrointestinal Reports: abdominal pain (After eating), nausea, heartburn, diarrhea, constipation, bloating (after eating), change in bowel habits and hematochezia; Denies: vomiting, hematemesis or dysphagia Genitourinary Denies: urinary frequency, urinary urgency, urinary incontinence, hematuria, vaginal discharge or genital pruritis Musculoskeletal Reports: extremity pain, joint pain, joint swelling and muscle weakness; Denies: back pain or muscle cramps Integumentary/Breast Denies: rash, pruritus, changing lesions, non-healing lesions or jaundice Neurological Reports: numbness in extremities (fingers); Denies: headache(s), weakness in extremities, seizure-like activity or involuntary movements Psychiatric Reports: anxiety, mood swings, change in sleep pattern, irritability and suicidal ideation (passive); Denies: panic attacks, hopelessness, loss of interest, paranoia, difficulty concentrating, visual hallucinations or homicidal ideation Endocrine Reports: fatigue; Denies: polyuria, polydipsia, cold intolerance or heat intolerance Hematologic/Lymphatic Reports: easy bleeding; Denies: easy bruising Allergic/Immunologic Denies: wheezing Exam Mental Status Exam - Psych Appearance casually dressed, adequately groomed and no apparent distress (more content not included)... Normal [facility] Vitamin B12on 05-13-2025 Cobalamin (Vitamin B12) [Mass/Vol] 492 pg/mL Normal 180-914 [facility] Comment on above: Performed By: #### L 503.0106, L506.1001 ####[facility] [address] [place], [address] Vitamin D,25 Hydroxyon 05-13 Vitamin D 25-OH 22.4 ng/mL Low 30-100 [facility] Comment on above: Result Comment: Sonam min D Status Deficiency: <20 ng/mL (50nmol/L) Insufficiency: 20-30 ng/mL (50-75 nmol/L) Sufficiency: 30-100 ng/mL (75-250 nmol/L) Toxicity: >100 ng/mL (>250 nmol/L) Performed By: #### L 503.0106, L506.1001 ####[facility] [address] [place], [address] MR/BMS.BPeduardo 04-29-2025 MR/BMS.[facility] [address] [place] [address], [address] [place] [address] OFFICE VISIT Date of Service: 04/29/25 MR#: [id number] Acct: [id number] Name: MARTITA HERNANDEZ Rep #: [birth year] : 2000 Provider: SREE kelly Age/Sex: 25/F Location: [facility] Status: Signed Intake Vital Signs 04/07/25 10:36 04/29/25 09:00 Height 4 ft 8 in 4 ft 8 in Weight: 171 lb BMI 38.3 BP 118/70 Blood Pressure Location Lt brachial Position Sitting Respiration 16 Pulse 71 Pulse Source Monitor Temp 97.1 F L Pulse Oximetry (%) 99 Oxygen Delivery Method room air BP Intake Visit Reasons: 4wfu Allergies dragon fruit Allergy (Intermediate, Verified 04/07/25 10:24) rash Penicillins Allergy (Verified 04/07/25 10:24) Rash fluoxetine (From Prozac) Adverse Reaction (Mild, Verified 04/07/25 10:24) Other Tricyclic Antidepressants and Tricy Adverse Reaction (Verified 04/07/25 10:24) adverse [facility] Medical History Schizoaffective disorder, bipolar type Asthma Generalized anxiety disorder PTSD (post-traumatic stress disorder) delivery delivered Depression Diabetes Migraine TBI (traumatic brain injury) Surgical History H/O section History of appendectomy Social History adopted: Yes number of children: 1 current occupational status: unemployed 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 current occupational exposures/hazards: No pets and animals: No history of recent travel: No sexually active: No other: female Smoking Status: Never smoker Tobacco: How many years used: 0 Electronic Cigarette Use: not used second hand exposure: Yes alcohol intake: former substance use type: does not use caffeine: Yes eating out: rarely or never during the past year weight has: decreased > 10 lbs frequency: 3-4 times per week duration: 30-45 minutes/day leti/christianity: baptist seatbelt use: always do you feel safe at home: Yes additional social history: -no contact - not HPI History of Present Illness History provided by: patient Chief complaint: Irritability HPI: Martita Hernandez is a 25 year old female patient presenting today for a virtual follow up evaluation. Reports things have been much improved since last appointment. Admits to continued irritability. Admits to having some heightened anxiety and an occasional anxiety attack. Does not feel anxious at baseline. Does have some things that have been triggering her anxiety and struggling to get calm from this. Reports mood has been improved from last appointment. Is feeling less hopeless. Has been using the [employer] ced which has been beneficial for her in goal tracking and keeping her motivated in tasks and goal. Admits to some passive SI and feels this is often triggered by grief around the loss of her father. Does report struggling more recently to fall asleep. 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 When she is not working is getting 6-7 hours per night but feels it is frequently interrupted. Does have a sleep study coming up due to concern with mild CINDY. Appetite has fluctuated and feels with menses this typically increases. Has been maintainging her weight recently with no large changes. This tele-medicine visit was performed via audio/video technology. Previous similar episode: Yes Age of first onset of symptoms: 11-20 years Review of Systems Constitutional Reports: fatigue; Denies: fever(s), chills, change in weight or change in sleep pattern Eyes Denies: change in vision, blurry vision, photophobia, eye discomfort or eye discharge Ears, Nose, Mouth, Throat Denies: dysphagia, hoarseness, ear or mastoid pain, ear discharge, change in hearing, tinnitus, nasal congestion or epistaxis Cardiovascular Denies: chest pain or dyspnea Respiratory Denies: dyspnea, cough or wheezing Gastrointestinal Reports: abdominal pain (After eating), nausea, heartburn, diarrhea, constipation, bloating (after eating), change in bowel habits and hematochezia; Denies: vomiting, hematemesis or dysphagia Genitourinary Denies: urinary frequency, urinary urgency, urinary incontinence, hematuria, vaginal discharge or genital pruritis Musculoskeletal Reports: extremity pain, joint pain, joint swelling and muscle weakness; Denies: back pain or muscle cramps Integumentary/Breast Denies: rash, pruritus, changing lesions, non-healing lesions or jaundice Neurological Reports: numbness in extremities (fingers); Denies: headache(s), weakness in extremities, seizure-like activity or involuntary movements Psychiatric Reports: anxiety, mood swings, change in sleep pattern, irritability, difficulty con (more content not included)... Normal [facility] RON w/ Reflex Mult Confirmon 04-13-2025 ANTI-DNA (DS)AB TNP Normal [facility] Comment on above: Performed By: #### L 101.9900, L3100.5850, L500.4050, L501.9520, L501.6710, L700.6800, L3100.5450, L100.0100 #### [facility] [address] [place], [place], [id number] ANTI-SS-A TNP Normal [facility] Comment on above: Performed By: #### L 101.9900, L3100.5850, L500.4050, L501.9520, L501.6710, L700.6800, L3100.5450, L100.0100 #### [facility] [address] [place], [place], [id number] ANTI-SS-B TNP Normal [facility] Comment on above: Performed By: #### L 101.9900, L3100.5850, L500.4050, L501.9520, L501.6710, L700.6800, L3100.5450, L100.0100 #### [facility] [address] [place], [place], [id number] EBV Acute Prof IgG / IgMon 0 04-12-2025 EB Ab VCA, IgG 388.0 U/mL High 0.0-17.9 [facility] Comment on above: Result Comment: Nega tive <18.0 Equivocal 18.0 - 21.9 Positive >21.9 Performed By: #### L 101.9900, L3100.5850, L500.4050, L501.9520, L501.6710, L700.6800, L3100.5450, L100.0100 ####[facility] [address] [place], [place], [id number] EBV Ab VCA, IgM < 36.0 Normal 0.0-35.9 [facility] Comment on above: Result Comment: Nega tive <36.0 Equivocal 36.0 - 43.9 Positive >43.9 Performed By: #### L 101.9900, L3100.5850, L500.4050, L501.9520, L501.6710, L700.6800, L3100.5450, L100.0100 ####[facility] [address] [place], [place], [id number] EBV NuAg Ab,IgG 56.2 U/mL High 0.0-17.9 [facility] Comment on above: Result Comment: Nega tive <18.0 Equivocal 18.0 - 21.9 Positive >21.9 Performed By: #### L 101.9900, L3100.5850, L500.4050, L501.9520, L501.6710, L700.6800, L3100.5450, L100.0100 ####[facility] [address] [place], [address] INTERPRETATION Comment Normal . [facility] Comment on above: Result Comment: EBV Interpretation Chart [place]: Antibody Present + Antibody Absent - Interpretation VCA-IgM VCA-IgG EBNA-IgG No previous infection/ - - - Susceptible Primary infection (new + + - or recent) Past Infection +or- + + See comment below* + - - *Results indicate infection with EBV at some time however cannot predict the timing of the infection since antibodies to EBNA usually develop after primary infection or, alternatively, approximately 5-10% of patients with EBV never develop antibodies to EBNA. Performed at: [address] [id number] Regional Project Manager: Jorge Cadena PhD, Phone: [phone] Performed By: #### L 101.9900, L3100.5850, L500.4050, L501.9520, L501.6710, L700.6800, L3100.5450, L100.0100 ####[facility] [address] [place], [address] CBC W/Diff, Automatedon 05-0 9-2025 Absolute Lymph 1.79 X10 3/uL Normal 0.83-4.51 [facility] Comment on above: Performed By: #### L 101.9900, L3100.5850, L500.4050, L501.9520, L501.6710, L700.6800, L3100.5450, L100.0100 #### [facility] [address] [place], [address] Absolute Neut 4.3 X10 3/uL Normal 2.0-7.7 [facility] Comment on above: Performed By: #### L 101.9900, L3100.5850, L500.4050, L501.9520, L501.6710, L700.6800, L3100.5450, L100.0100 #### [facility] [address] [place], [address] Basophils/100 WBC (Bld) 0.4 % Normal 0-1 [facility] Comment on above: Performed By: #### L 101.9900, L3100.5850, L500.4050, L501.9520, L501.6710, L700.6800, L3100.5450, L100.0100 #### [facility] [address] [place], [address] Eosinophils/100 WBC (Bld) 3.1 % Normal 0-5 [facility] Comment on above: Performed By: #### L 101.9900, L3100.5850, L500.4050, L501.9520, L501.6710, L700.6800, L3100.5450, L100.0100 #### [facility] [address] [place], [address] Erythrocyte distribution width (RBC) [Ratio] 13.2 % Normal 11.6-14.6 [facility] Comment on above: Performed By: #### L 101.9900, L3100.5850, L500.4050, L501.9520, L501.6710, L700.6800, L3100.5450, L100.0100 #### [facility] [address] [place], [address] Hematocrit (Bld) [Volume fraction] 42.0 % Normal 37-47 [facility] Comment on above: Performed By: #### L 101.9900, L3100.5850, L500.4050, L501.9520, L501.6710, L700.6800, L3100.5450, L100.0100 #### [facility] [address] [place], [address] Hemoglobin (Bld) [Mass/Vol] 13.8 g/dL Normal 12.0-15.0 [facility] Comment on above: Performed By: #### L 101.9900, L3100.5850, L500.4050, L501.9520, L501.6710, L700.6800, L3100.5450, L100.0100 #### [facility] [address] [place], [address] IG% 0.300 Normal 0.0-0.9 [facility] Comment on above: Result Comment: IG% - Immature Granulocytes (promyelocytes, myelocytes and metamyelocytes) > 1% indicates that a LEFT SHIFT is Present. Performed By: #### L 101.9900, L3100.5850, L500.4050, L501.9520, L501.6710, L700.6800, L3100.5450, L100.0100 #### [facility] [address] [place], [address] Lymphocytes/100 WBC (Bld) 26.6 % Normal 19-41 [facility] Comment on above: Performed By: #### L 101.9900, L3100.5850, L500.4050, L501.9520, L501.6710, L700.6800, L3100.5450, L100.0100 #### [facility] [address] [place], [address] MCH (RBC) [Entitic mass] 28.8 pg Normal 27.0-32.0 [facility] Comment on above: Performed By: #### L 101.9900, L3100.5850, L500.4050, L501.9520, L501.6710, L700.6800, L3100.5450, L100.0100 #### [facility] [address] [place], [address] MCHC (RBC) [Mass/Vol] 32.9 g/dL Normal 32-36 [facility] Comment on above: Performed By: #### L 101.9900, L3100.5850, L500.4050, L501.9520, L501.6710, L700.6800, L3100.5450, L100.0100 #### [facility] [address] [place], [address] MCV (RBC) [Entitic vol] 87.7 fL Normal 81-99 [facility] Comment on above: Performed By: #### L 101.9900, L3100.5850, L500.4050, L501.9520, L501.6710, L700.6800, L3100.5450, L100.0100 #### [facility] [address] [place], [address] Monocytes/100 WBC (Bld) 5.5 % Normal 0-10 [facility] Comment on above: Performed By: #### L 101.9900, L3100.5850, L500.4050, L501.9520, L501.6710, L700.6800, L3100.5450, L100.0100 #### [facility] [address] [place], [address] Neutrophils/100 WBC (Bld) 64.1 % Normal 47-70 [facility] Comment on above: Performed By: #### L 101.9900, L3100.5850, L500.4050, L501.9520, L501.6710, L700.6800, L3100.5450, L100.0100 #### [facility] [address] [place], [address] Nucleated RBC (Bld) [#/Vol] 0 10*3/uL Normal 0-5 [facility] Comment on above: Performed By: #### L 101.9900, L3100.5850, L500.4050, L501.9520, L501.6710, L700.6800, L3100.5450, L100.0100 #### [facility] [address] [place], [address] Platelet mean volume (Bld) [Entitic vol] 10.6 fL Normal 6.2-12.0 [facility] Comment on above: Performed By: #### L 101.9900, L3100.5850, L500.4050, L501.9520, L501.6710, L700.6800, L3100.5450, L100.0100 #### [facility] [address] [place], [address] Platelets (Bld) [#/Vol] 378 10*3/uL Normal 150-450 [facility] Comment on above: Performed By: #### L 101.9900, L3100.5850, L500.4050, L501.9520, L501.6710, L700.6800, L3100.5450, L100.0100 #### [facility] [address] [place], [address] RBC (Bld) [#/Vol] 4.79 10*6/uL Normal 4.2-5.4 [facility] Comment on above: Performed By: #### L 101.9900, L3100.5850, L500.4050, L501.9520, L501.6710, L700.6800, L3100.5450, L100.0100 #### [facility] [address] [place], [address] RDW SD 42.5 fl Normal 35.1-43.9 [facility] Comment on above: Performed By: #### L 101.9900, L3100.5850, L500.4050, L501.9520, L501.6710, L700.6800, L3100.5450, L100.0100 #### [facility] [address] [place], [address] WBC (Bld) [#/Vol] 6.7 10*3/uL Normal 4.4-11.0 [facility] Comment on above: Performed By: #### L 101.9900, L3100.5850, L500.4050, L501.9520, L501.6710, L700.6800, L3100.5450, L100.0100 #### [facility] [address] [place], [address] CRPon 04-09-2025 C-REACTIVE PROT 6.72 mg/L High 0.0-3.0 [facility] Comment on above: Performed By: #### L 101.9900, L3100.5850, L500.4050, L501.9520, L501.6710, L700.6800, L3100.5450, L100.0100 #### [facility] [address] [place], [place], [id number] Comprehensive Metabolic Prof flon 04-09-2025 Albumin [Mass/Vol] 4.6 g/dL Normal 3.5-5.0 [facility] Comment on above: Performed By: #### L 101.9900, L3100.5850, L500.4050, L501.9520, L501.6710, L700.6800, L3100.5450, L100.0100 #### [facility] [address] [place], [place], [id number] Albumin/Globulin [Mass ratio] 1.3 {ratio} Normal 0.9-2.4 [facility] Comment on above: Performed By: #### L 101.9900, L3100.5850, L500.4050, L501.9520, L501.6710, L700.6800, L3100.5450, L100.0100 #### [facility] [address] [place], [place], [id number] ALK PHOS 90 U/L Normal 35-104 [facility] Comment on above: Performed By: #### L 101.9900, L3100.5850, L500.4050, L501.9520, L501.6710, L700.6800, L3100.5450, L100.0100 #### [facility] [address] [place], [place], [phone] ALT [Catalytic activity/Vol] 36 U/L High <=34 [facility] Comment on above: Performed By: #### L 101.9900, L3100.5850, L500.4050, L501.9520, L501.6710, L700.6800, L3100.5450, L100.0100 #### [facility] [address] [place], [place], [id number] AST [Catalytic activity/Vol] 31 U/L Normal <=31 [facility] Comment on above: Performed By: #### L 101.9900, L3100.5850, L500.4050, L501.9520, L501.6710, L700.6800, L3100.5450, L100.0100 #### [facility] [address] [place], [address] Bilirubin [Mass/Vol] 0.41 mg/dL Normal 0.00-1.30 [facility] Comment on above: Performed By: #### L 101.9900, L3100.5850, L500.4050, L501.9520, L501.6710, L700.6800, L3100.5450, L100.0100 #### [facility] [address] [place], [address] BUN/CRE 14.4 RATIO Normal 10-20 [facility] Comment on above: Performed By: #### L 101.9900, L3100.5850, L500.4050, L501.9520, L501.6710, L700.6800, L3100.5450, L100.0100 #### [facility] [address] [place], [address] Calcium [Mass/Vol] 9.6 mg/dL Normal 7.6-11.0 [facility] Comment on above: Performed By: #### L 101.9900, L3100.5850, L500.4050, L501.9520, L501.6710, L700.6800, L3100.5450, L100.0100 #### [facility] [address] [place], [address] Chloride [Moles/Vol] 105 mmol/L Normal 98-108 [facility] Comment on above: Performed By: #### L 101.9900, L3100.5850, L500.4050, L501.9520, L501.6710, L700.6800, L3100.5450, L100.0100 #### [facility] [address] [place], [place], [id number] CO2 [Moles/Vol] 19.6 mmol/L Low 21.0-32.0 [facility] Comment on above: Performed By: #### L 101.9900, L3100.5850, L500.4050, L501.9520, L501.6710, L700.6800, L3100.5450, L100.0100 #### [facility] [address] [place], [place], [phone] (056) Creatinine [Mass/Vol] 0.86 mg/dL Normal 0.70-1.20 [facility] Comment on above: Performed By: #### L 101.9900, L3100.5850, L500.4050, L501.9520, L501.6710, L700.6800, L3100.5450, L100.0100 #### [facility] [address] [place], [place], [phone] GAP 12 Normal 5-15 [facility] Comment on above: Performed By: #### L 101.9900, L3100.5850, L500.4050, L501.9520, L501.6710, L700.6800, L3100.5450, L100.0100 #### [facility] [address] [place], [place], [phone] GFR/1.73 sq M.predicted among non-blacks MDRD (S/P/Bld) [Vol rate/Area] 97 mL/min/{1.73_m2} Normal >60 [facility] Comment on above: Result Comment: mL/m in/1.73m2 CKD-EPI Creatinine Equation (2020) Performed By: #### L 101.9900, L3100.5850, L500.4050, L501.9520, L501.6710, L700.6800, L3100.5450, L100.0100 #### [facility] [address] [place], [address] Globulin (S) [Mass/Vol] 3.4 g/dL Normal 2.2-4.2 [facility] Comment on above: Performed By: #### L 101.9900, L3100.5850, L500.4050, L501.9520, L501.6710, L700.6800, L3100.5450, L100.0100 #### [facility] [address] [place], [address] Glucose [Mass/Vol] 87 mg/dL Normal 70-99 [facility] Comment on above: Performed By: #### L 101.9900, L3100.5850, L500.4050, L501.9520, L501.6710, L700.6800, L3100.5450, L100.0100 #### [facility] [address] [place], [address] Potassium [Moles/Vol] 4.0 mmol/L Normal 3.3-5.1 [facility] Comment on above: Performed By: #### L 101.9900, L3100.5850, L500.4050, L501.9520, L501.6710, L700.6800, L3100.5450, L100.0100 #### [facility] [address] [place], [address] Sodium [Moles/Vol] 137 mmol/L Normal 133-145 [facility] Comment on above: Performed By: #### L 101.9900, L3100.5850, L500.4050, L501.9520, L501.6710, L700.6800, L3100.5450, L100.0100 #### [facility] [address] [place], [address] T PROT 8.0 g/dL Normal 5.9-8.4 [facility] Comment on above: Performed By: #### L 101.9900, L3100.5850, L500.4050, L501.9520, L501.6710, L700.6800, L3100.5450, L100.0100 #### [facility] [address] [place], [place], [id number] Urea nitrogen [Mass/Vol] 12 mg/dL Normal 4-19 [facility] Comment on above: Performed By: #### L 101.9900, L3100.5850, L500.4050, L501.9520, L501.6710, L700.6800, L3100.5450, L100.0100 #### [facility] [address] [place], [address] Erythrocyte Sed Rateon 04-09 SED RATE 9 mm/hr Normal 0-30 [facility] Comment on above: Performed By: #### L 101.9900, L3100.5850, L500.4050, L501.9520, L501.6710, L700.6800, L3100.5450, L100.0100 #### [facility] [address] [place], [address] ,Serum,hCG Quali.on 04-09-2025 HCG, SERUM QUAL Negative Normal [facility] Comment on above: Performed By: #### L 101.9900, L3100.5850, L500.4050, L501.9520, L501.6710, L700.6800, L3100.5450, L100.0100 ####[facility] [address] [place], [address] Thyroid Stim Hormone (TSH)on 04-09-2025 TSH 2.570 uIU/mL Normal 0.300-4.200 [facility] Comment on above: Performed By: #### L 101.9900, L3100.5850, L500.4050, L501.9520, L501.6710, L700.6800, L3100.5450, L100.0100 ####[facility] [address] [place], [address] Internal Medicine Office Vis alpa 04-07-2025 Internal Medicine Office Visit [facility] [address] [place] [address] [place] [address] OFFICE VISIT Date of Service: 04/07/25 MR#: [id number] Acct: [id number] Name: MARTITA HERNANDEZ Rep #: [id number] : 2000 Provider: NABEEL Burgos Age/Sex: 25/F Location[place] [facility] Status: Signed Intake Vital Signs 03/23/25 15:50 04/07/25 10:36 Height 4 ft 8 in 4 ft 8 in Weight: 170 lb 171 lb BMI 38.1 38.3 BP 119/83 H 118/70 Blood Pressure Location Lt brachial Lt brachial Position Sitting Sitting Respiration 16 16 Pulse 69 71 Pulse Source Monitor Monitor Temp 97.1 F L Temp Source Temporal Pulse Oximetry (%) 99 Oxygen Delivery Method room air Intake Visit Reasons: EXTREME FATIGUE-ROXANN PT, RE-EST IN MAY Chief Complaint: 3m f/u Production Expediter Required: No Accompanied by: Son Is patient in pain?: No Allergies dragon fruit Allergy (Intermediate, Verified 04/07/25 10:24) rash Penicillins Allergy (Verified 04/07/25 10:24) Rash fluoxetine (From Prozac) Adverse Reaction (Mild, Verified 04/07/25 10:24) Other Tricyclic Antidepressants and Tricy Adverse Reaction (Verified 04/07/25 10:24) adverse Medications ???Medication ???Instructions ???Recorded ???Confirmed ???Type cholecalciferol (vitamin D3) 50 50 mcg PO DAILY 05/26/24 04/07/25 History mcg (2,000 unit) capsule magnesium oxide 500 mg capsule 500 mg PO DAILY 05/26/24 04/07/25 History ferrous sulfate 325 mg (65 mg 325 mg PO DAILY 06/25/24 04/07/25 History iron) tablet Held on 07/01/24. Instructions: per pt ondansetron HCl 8 mg tablet 8 mg PO Q8H PRN nausea and 4 04/07/25 Rx vomiting #20 tabs theanine 200 mg capsule mg PO 06/25/24 04/07/25 History omeprazole 40 mg capsule,delayed 40 mg PO DAILY #30 caps 06/30/24 0 04/07/25 Rx release buspirone 7.5 mg tablet 7.5 mg PO BID #180 tabs 02/10/25 0 04/07/25 Rx quetiapine 100 mg tablet 100 mg PO QHS #90 tabs 02/19/25 Rx clonidine HCl 0.1 mg tablet 0.1 mg PO BID PRN anxiety #180 tab s 03/23/25 04/07/25 Rx lamotrigine 100 mg tablet 100 mg PO QDAY #30 tabs 03/23/25 0 04/07/25 Rx quetiapine 50 mg tablet 50 mg PO QDAY #30 tabs 03/23/25 Rx Nurse's Note: Pt c/o severe fatigue, and nausea the fatigue started within the last month. Pt states she is getting about 6-8 hours of sleep at night she states even upon waking she does not feel rested. Is able to go to sleep and stay asleep. Pt states she does take about an hour long nap a few hours later and still doesn't feel rested after that.Pt was told that she does snore while she sleeps. Pt denies bruising. Pt initally thought it was due to physc med switch and gave it some time but it is not related. Pt states she has had nausea since she was w/ her 3 year old and it never resolved. Had a prn script for zofran but no longer has that. Pt denies vomiting, and states it is all the time and nothing makes it better or worse. Has been seen at an urgent care and was referred back to pcp. Has had bouts of constipation and diarrhea . She saw GI they wanted another scope done but she did not end up having it done. Nothing seems to make the change in stools happen as it has been ongoing. Pt denies abdominal pain/cramping and reflux. Pt states she has been having episodes of dizziness , polydipsia, and polyphagia. Pt states she has also been having difficulty getting weight off w/ the weight gain. 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 current occupational exposures/hazards: No pets and animals: No history of recent travel: No sexually active: No other: female Smoking Status: Never smoker Tobacco: How many years used: 0 Electronic Cigarette Use: not used second hand exposure: Yes alcohol intake: former substance use type: does not use caffeine: Yes eating out: rarely or never during the past year weight has: decreased > 10 lbs frequency: 3-4 times per week duration: 30-45 minutes/day leti/christianity: baptist seatbelt use: always do you feel safe at home: Yes additional social history: -no contact - not Questionnaire STOP-BANG Sleep Apnea STOP Do you SNORE loudly? (louder than talking or loud enough to be heard through closed doors)?: Yes Do you f (more content not included)... Normal [facility] MR/BMS.BPon 03-23-2025 MR/BMS.BP [address], [address] [place] [address] OFFICE VISIT Date of Service: 03/23/25 MR#: [id number] Acct: [id number] Name: MARTITA HERNANDEZ Rep #: [id number] : 2000 Provider: SREE kelly Age/Sex: 25/F Location[place] [facility] Status: Signed Intake Vital Signs 02/09/25 11:22 03/23/25 15:50 Height 4 ft 8 in 4 ft 8 in Weight: 170 lb BMI 38.1 BP 119/83 H Blood Pressure Location Lt brachial Position Sitting Respiration 16 Pulse 69 Pulse Source Monitor BP Intake Visit Reasons: f/u Accompanied by: Self Allergies dragon fruit Allergy (Intermediate, Verified 03/23/25 15:51) rash Penicillins Allergy (Verified 03/23/25 15:51) Rash fluoxetine (From Prozac) Adverse Reaction (Mild, Verified 03/23/25 15:51) Other Tricyclic Antidepressants and Tricy Adverse Reaction (Verified 03/23/25 15:51) adverse Medications ???Medication ???Instructions ???Recorded ???Confirmed ???Type cholecalciferol (vitamin D3) 50 50 mcg PO DAILY 05/26/24 03/23/25 History mcg (2,000 unit) capsule magnesium oxide 500 mg capsule 500 mg PO DAILY 05/26/24 03/23/25 History ferrous sulfate 325 mg (65 mg 325 mg PO DAILY 06/25/24 03/23/25 History iron) tablet Held on 07/01/24. Instructions: per pt ondansetron HCl 8 mg tablet 8 mg PO Q8H PRN nausea and 4 03/23/25 Rx vomiting #20 tabs theanine 200 mg capsule mg PO 06/25/24 03/23/25 History omeprazole 40 mg capsule,delayed 40 mg PO DAILY #30 caps 06/30/24 0 03/23/25 Rx release buspirone 7.5 mg tablet 7.5 mg PO BID #180 tabs 02/10/25 0 03/23/25 Rx quetiapine 100 mg tablet 100 mg PO QHS #90 tabs 02/19/25 Rx clonidine HCl 0.1 mg tablet 0.1 mg PO BID PRN anxiety #180 tab s 03/23/25 03/23/25 Rx lamotrigine 100 mg tablet 100 mg PO QDAY #30 tabs 03/23/25 0 03/23/25 Rx quetiapine 50 mg tablet 50 mg PO QDAY #30 tabs 03/23/25 Rx PFSH Medical History Schizoaffective disorder, bipolar type Asthma Generalized anxiety disorder PTSD (post-traumatic stress disorder) delivery delivered Depression Diabetes Migraine TBI (traumatic brain injury) Surgical History H/O section History of appendectomy Social History adopted: Yes number of children: 1 current occupational status: unemployed 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 current occupational exposures/hazards: No pets and animals: No history of recent travel: No sexually active: No other: female Smoking Status: Never smoker Tobacco: How many years used: 0 Electronic Cigarette Use: not used second hand exposure: Yes alcohol intake: former substance use type: does not use caffeine: Yes eating out: rarely or never during the past year weight has: decreased > 10 lbs frequency: 3-4 times per week duration: 30-45 minutes/day leti/christianity: baptist seatbelt use: always do you feel safe at home: Yes additional social history: -no contact - not HPI History of Present Illness History provided by: patient HPI: Martita Hernandez is a 25 year old female patient presenting today for a follow up evaluation. Reports she has been feeling overwhelmed and feels she is having more mood swings in a day. Reports rage and irritability often. Does feel quetiapine has been beneficial for sleep. Has been consistently going to therapy. Is feeling more disconnected and not feeling like herself. Reports noticing she is having racing thoughts and unable to focus and pay attention to anything. Admits to having low motivation. Reports mental fatigue. Reports she has been feeling hungry all the time. Gained 6 pounds in the last 4 months. Admits to some passive SI but feels it is much more reduced than before. Denies plan or intent. Does pay close attention to detail. Does not often make careless mistakes. Is able to follow through with instructions. Does struggle some with organizing tasks and activities. Does struggle when being spoken to directly. Does report avoiding more mentally strenuous tasks. Previous similar episode: Yes Age of first onset of symptoms: 11-20 years Review of Systems Constitutional Reports: change in weight (Loss of 40 pounds this year); Denies: fever(s), chills, fatigue or change in sleep pattern Eyes Denies: change in vision, blurry vision, photophobia, eye discomfort or eye discharge Ears, Nose, Mouth, Throat Denies: dysphagia, hoarseness, ear or mastoid pain, ear discharge, change in hearing, tinnitus, nasal congestion or epistaxis Cardiovascular Denies: chest pain or dyspnea Respiratory Denies: dyspnea, cough or wheezing Gastrointestinal Reports: abdominal meli (more content not included)... Normal [facility] ED Nursing Noteon 03-20-2025 ED Nursing Note Pt arrives to ED for contact being stuck in right eye. Pt states eye is red and painful. Pt just put contact in this morning and was unable to get it out. Normal [facility] ED Provider Noteon ED Provider Note EMERGENCY DEPARTMENT ENCOUNTER Pt Name: Martita Hernandez Birthdate 2000 Date of evaluation: 03/20/2025 ED Provider: Maurisio Aviles PA-C CHIEF COMPLAINT Chief Complaint Patient presents with Eye Problem Contact stuck HISTORY OF PRESENT ILLNESS (Location/Symptom, Timing/Onset, Context/Setting, Quality, Duration, Modifying Factors, Severity) Note limiting factors. I wore appropriate PPE for the entirety of this encounter. HPI Martita Hernandez is a 25 y.o. female who presents to the emergency department with concern that contact lens is still stuck on her right eye. She was eating lunch and suddenly felt some irritation in her right eye, went to wash out her right eye and take the contact out but then it felt like it got embedded under the upper eyelid. Paramedics evaluated her there and were concerned that there was still a contact lens embedded in the upper lid and recommend she come to the ED. She still has contact in the left eye but not having any problems with that eye. She does have glasses she can wear in the interim. Notes tearing and irritated feeling but denies any danilo visual loss. Denies discharge or bleeding. No similar issues in the past. Wears soft lenses, not daily's. Nursing Notes were reviewed. Limitations to history: None Outside historians: None REVIEW OF SYSTEMS Review of Systems 5 systems reviewed, positives and pertinent negatives as per HPI. All other systems were reviewed and are negative. PAST MEDICAL HISTORY Past Medical History: Diagnosis Date Anesthesia complication Anxiety Asthma Depression BIGGS (dyspnea on exertion) Fatigue GERD (gastroesophageal reflux disease) History of UTI Memory difficulty Morbid obesity, unspecified obesity type (HCC) Prediabetes Snoring SURGICAL HISTORY Past Surgical History: Procedure Laterality Date APPENDECTOMY 2008 SECTION, LOW TRANSVERSE Bilateral TYMPANOSTOMY TUBE PLACEMENT UPPER GI ENDOSCOPY,EXAM (HISTORICAL) 08/19/2023 WISDOM TOOTH EXTRACTION 2018 CURRENT MEDICATIONS Discharge Medication List as of 03/20/2025 2:09 PM CONTINUE these medications which have NOT CHANGED Details albuterol 108 (90 Base) MCG/ACT inhaler Inhale 2 puffs every 6 hours as needed for wheezing., Historical Med cetirizine (ZyrTEC) 10 MG tablet Starting Sat08/07/2023, Historical Med lithium 600 MG capsule Take 600 mg by mouth 2 times daily. 600 mg in the morning and 600 mg in the evening, Starting Sat01/09/2023, Historical Med lurasidone (Latuda) 60 MG tablet Take 80 mg by mouth., Starting Sat09/20/2023, Until Sat12/04/2023 at 2359, Historical Med Multiple Vitamins-Iron (MULTIVITAMIN/IRON PO) Take 1 tablet by mouth daily., Starting Sat06/03/2023, Historical Med propranolol (Inderal) 20 MG tablet 20 mg in the morning and 20 mg in the evening., Starting Sat08/08/2023, Historical Med topiramate 50 MG tablet Take 50 mg by mouth 1 (one) time each day., Historical Med VITAMIN D PO Take 5,000 Int'l Units by mouth every 7 days., Starting Sat06/03/2023, Historical Med ALLERGIES Penicillin g, Victoza [liraglutide], and Pcn [penicillins] FAMILY HISTORY Family History Adopted: Yes SOCIAL HISTORY Social History Socioeconomic History Marital status: Tobacco Use Smoking status: Never Smokeless tobacco: Never Substance and Sexual Activity Alcohol use: Not Currently Alcohol/week: 1.0 standard drink of alcohol Types: 1 Standard drinks or equivalent per week Drug use: Not Currently Comment: caffeine use: 2 cups of coffee a day Sexual activity: Yes Partners: Male Social Drivers of Health Intimate Partner Violence: Not At Risk (08/19/2023) Humiliation, Afraid, Rape, and Kick questionnaire Fear of Current or Ex-Partner: No Emotionally Abused: No Physically Abused: No Sexually Abused: No SCREENINGS PHYSICAL EXAM ED Triage Vitals [03/20/25 1328] Temp Heart Rate Resp BP 36.7 ?C (98.1 ?F) 64 20 125/73 SpO2 Temp Source Heart Rate Source Patient Position 100 % Temporal Monitor -- BP Location FiO2 (%) -- -- Physical Exam Constitutional: Comments: Uncomfortable appearing female, not overtly distressed otherwise. HENT: Head: Normocephalic and atraumatic. Eyes: General: Lids are normal. Lids are everted, no foreign bodies appreciated. Vision grossly intact. Right eye: No foreign body. Extraocular Movements: Extraocular movements intact. Conjunctiva/sclera: Right eye: Right conjunctiva is injected. Pupils: Right eye: Corneal abrasion present. Caleb exam negative. Slit lamp exam: Right eye: Anterior chamber quiet. No foreign body, hyphema or hypopyon. Comments: Right eye with corneal abrasion overlying the 6 o'clock position over the iris, no Caleb sign, no retained foreign bodies, lids flipped, no retained contact identified. Cardiovascular: Rate and Rhythm: Normal rate and regular rhythm. Heart sounds: Normal heart s (more content not included)... Normal [facility] MR/BMS.BP 02-09-2025 MR/BMS.BP [address], [address] [place] [address] OFFICE VISIT Date of Service: 02/09/25 MR#: [id number] Acct: [id number] Name: MARTITA HERNANDEZ Rep #: [id number] : 2000 Provider: SREE kelly Age/Sex: 25/F [place] [facility] Status: Signed Intake Vital Signs 12/29/24 11:19 02/09/25 11:22 Height 4 ft 8 in 4 ft 8 in BP Intake Visit Reasons: 6 wk FU Allergies dragon fruit Allergy (Intermediate, Verified 12/01/24 11:19) rash Penicillins Allergy (Verified 12/01/24 11:19) Rash fluoxetine (From Prozac) Adverse Reaction (Mild, Verified 12/01/24 11:19) Other Tricyclic Antidepressants and Tricy Adverse Reaction (Verified 12/01/24 11:19) adverse PFSH Medical History Schizoaffective disorder, bipolar type Asthma Generalized anxiety disorder PTSD (post-traumatic stress disorder) delivery delivered Depression Diabetes Migraine TBI (traumatic brain injury) Surgical History H/O section History of appendectomy Social History adopted: Yes number of children: 1 current occupational status: unemployed 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 current occupational exposures/hazards: No pets and animals: No history of recent travel: No sexually active: No other: female Smoking Status: Never smoker Tobacco: How many years used: 0 Electronic Cigarette Use: not used second hand exposure: Yes alcohol intake: former substance use type: does not use caffeine: Yes eating out: rarely or never during the past year weight has: decreased > 10 lbs frequency: 3-4 times per week duration: 30-45 minutes/day leti/christianity: baptist seatbelt use: always do you feel safe at home: Yes additional social history: -no contact - not HPI History of Present Illness History provided by: patient Chief complaint: Inattention/Anxiety HPI: Martita Hernandez is a 25 year old female patient presenting today for a virtual follow up evaluation. Reports she has been doing much better since last appointment. Does report sleep has improved with use or quetiapine. Is getting about 8-9 hours of sleep per night. Does feel well rested. Does report taking clonidine for anxiety and feels it has been making her sleepy as well. Admits to feeling well rested most days but on occasion does wake up feeling tired. Does struggle with mood during this time of year due to loss in the past and anniversaries of of others which she struggles with. Admits to a decrease in irritability and losing her patience with her son at times. Denies SI/HI. Is still struggling significantly with anxiety but feels it is much reduced compared to where it was in the past. Does feel anxiety is worsened with being in public. Does feel she has been working on communication with her and feels this has helped in improving her mental health. This tele-medicine visit was performed via audio/video technology. Previous similar episode: Yes Age of first onset of symptoms: 11-20 years Review of Systems Constitutional Reports: change in weight (Loss of 40 pounds this year); Denies: fever(s), chills, fatigue or change in sleep pattern Eyes Denies: change in vision, blurry vision, photophobia, eye discomfort or eye discharge Ears, Nose, Mouth, Throat Denies: dysphagia, hoarseness, ear or mastoid pain, ear discharge, change in hearing, tinnitus, nasal congestion or epistaxis Cardiovascular Denies: chest pain or dyspnea Respiratory Denies: dyspnea, cough or wheezing Gastrointestinal Reports: abdominal pain (After eating), nausea, heartburn, diarrhea, constipation, bloating (after eating), change in bowel habits and hematochezia; Denies: vomiting, hematemesis or dysphagia Genitourinary Denies: urinary frequency, urinary urgency, urinary incontinence, hematuria, vaginal discharge or genital pruritis Musculoskeletal Reports: extremity pain, joint pain, joint swelling and muscle weakness; Denies: back pain or muscle cramps Integumentary/Breast Denies: rash, pruritus, changing lesions, non-healing lesions or jaundice Neurological Reports: numbness in extremities (fingers); Denies: headache(s), weakness in extremities, seizure-like activity or involuntary movements Psychiatric Reports: anxiety, mood swings, irritability and difficulty concentrating; Denies: panic attacks, change in sleep pattern, hopelessness, loss of interest, paranoia, visual hallucinations, suicidal ideation or homicidal ideation Endocrine Denies: polyuria, polydipsia, fatigue, cold intolerance or heat intolerance Hematologic/Lymphatic Reports: easy bleeding; Denies: easy bruising Allergic/Immunologic Denies: wheezing E (more content not included)... Normal [facility] MR/BMS.BPon 12-29-2024 MR/BMS.[address] [place] [address] OFFICE VISIT Date of Service: 12/29/24 MR#: [id number] Acct: [id number] Name: MARYMARTITA AKERS Rep #: [id number] : 2000 Provider: SREE kelly Age/Sex: 24/F Location: [facility] Status: Signed Intake Vital Signs 12/01/24 11:17 12/29/24 11:19 Height 4 ft 8 in 4 ft 8 in BP 137/93 H Blood Pressure Location Lt brachial Position Sitting Respiration 16 Pulse 96 BP Intake Visit Reasons: follow up Allergies dragon fruit Allergy (Intermediate, Verified 12/01/24 11:19) rash Penicillins Allergy (Verified 12/01/24 11:19) Rash fluoxetine (From Prozac) Adverse Reaction (Mild, Verified 12/01/24 11:19) Other Tricyclic Antidepressants and Tricy Adverse Reaction (Verified 12/01/24 11:19) adverse PFSH Medical History Schizoaffective disorder, bipolar type Asthma Generalized anxiety disorder PTSD (post-traumatic stress disorder) delivery delivered Depression Diabetes Migraine TBI (traumatic brain injury) Surgical History H/O section History of appendectomy Social History adopted: Yes number of children: 1 current occupational status: unemployed 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 current occupational exposures/hazards: No pets and animals: No history of recent travel: No sexually active: No other: female Smoking Status: Never smoker Tobacco: How many years used: 0 Electronic Cigarette Use: not used second hand exposure: Yes alcohol intake: former substance use type: does not use caffeine: Yes eating out: rarely or never during the past year weight has: decreased > 10 lbs frequency: 3-4 times per week duration: 30-45 minutes/day leti/christianity: baptist seatbelt use: always do you feel safe at home: Yes additional social history: -no contact - not HPI History of Present Illness History provided by: patient Chief complaint: Anxiety/Depression HPI: Martita Hernandez is a 24 year old female patient presenting today for a virtual follow up evaluation. Reports she is currently ill and has body aches, dizziness, and fevers and it just started this morning. Reports her son and her were ill first. States she has just returned from a vacation in [place] and was feeling better mentally since then. Does report she has been having panic attacks in public more recently and feels she is unable to manage this. Has left the store and left her cart due to heightened anxiety. States she has been waking up in more of a panic as well and feeling overwhelmed throughout the day. Does feel better in terms of depression since the last time she was here. Does feel sad often and felt more sad about leaving from her trip and feeling like she has a lot of responsibilities. But overall has been doing well in terms of depression. Admits to passive SI daily. Denies plan or intent. Appetite has been poor. Will go from not eating at all to eating constantly. Sleep has been improved with quetiapine. 7 hours per night. This tele-medicine visit was performed via audio/video technology. Previous similar episode: Yes Age of first onset of symptoms: 11-20 years Review of Systems Constitutional Reports: change in weight (Loss of 40 pounds this year), fatigue and change in sleep pattern; Denies: fever(s) or chills Eyes Denies: change in vision, blurry vision, photophobia, eye discomfort or eye discharge Ears, Nose, Mouth, Throat Denies: dysphagia, hoarseness, ear or mastoid pain, ear discharge, change in hearing, tinnitus, nasal congestion or epistaxis Cardiovascular Denies: chest pain or dyspnea Respiratory Denies: dyspnea, cough or wheezing Gastrointestinal Reports: abdominal pain (After eating), nausea, heartburn, diarrhea, constipation, bloating (after eating), change in bowel habits and hematochezia; Denies: vomiting, hematemesis or dysphagia Genitourinary Denies: urinary frequency, urinary urgency, urinary incontinence, hematuria, vaginal discharge or genital pruritis Musculoskeletal Reports: extremity pain, joint pain, joint swelling and muscle weakness; Denies: back pain or muscle cramps Integumentary/Breast Denies: rash, pruritus, changing lesions, non-healing lesions or jaundice Neurological Reports: numbness in extremities (fingers); Denies: headache(s), weakness in extremities, seizure-like activity or involuntary movements Psychiatric Reports: anxiety, mood swings, panic attacks, change in sleep pattern, hopelessness, loss of interest, irritability, difficulty concentrating, visual hallucinations and suicidal ideation (passive); Denies: paranoia or homicidal ideation E (more content not included)... Normal [facility] MR/BMS.BPon 12-01-2024 MR/BMS.BP [facility] [address], [address] [place] [address] OFFICE VISIT Date of Service: 12/01/24 MR#: [id number] Acct: [id number] Name: MARTITA HERNANDEZ Rep #: [id number] : 2000 Provider: SREE kelly Age/Sex: 24/F [place] [facility] [place]: Signed Intake Vital Signs 11/10/24 14:12 12/01/24 11:17 Height 4 ft 8 in 4 ft 8 in Weight: 164 lb BMI 36.7 BP 124/84 H 137/93 H Blood Pressure Location Rt radial Lt brachial Position Sitting Sitting Respiration 16 16 Pulse 89 96 Pulse Source Monitor BP Intake Visit Reasons: follow up Accompanied by: Self Allergies dragon fruit Allergy (Intermediate, Verified 12/01/24 11:19) rash Penicillins Allergy (Verified 12/01/24 11:19) Rash fluoxetine (From Prozac) Adverse Reaction (Mild, Verified 12/01/24 11:19) Other Tricyclic Antidepressants and Tricy Adverse Reaction (Verified 12/01/24 11:19) adverse Medications ???Medication ???Instructions ???Recorded ???Confirmed ???Type cholecalciferol (vitamin D3) 50 50 mcg PO DAILY 05/26/24 12/01/24 History mcg (2,000 unit) capsule magnesium oxide 500 mg capsule 500 mg PO DAILY 05/26/24 12/01/24 History ferrous sulfate 325 mg (65 mg 325 mg PO DAILY 06/25/24 12/01/24 History iron) tablet ondansetron HCl 8 mg tablet 8 mg PO Q8H PRN nausea and 06/25/24 12/01/24 Rx vomiting #20 tabs theanine 200 mg capsule mg PO 06/25/24 12/01/24 History omeprazole 40 mg capsule,delayed 40 mg PO DAILY #30 caps 06/30/24 12/01/24 Rx release lamotrigine 25 mg tablet 75 mg (3 x 25 mg) PO QDAY #90 tabs 11/10/24 12/01/24 Rx clonidine HCl 0.1 mg tablet 0.1 mg PO BID PRN anxiety #60 tabs 11/17/24 12/01/24 Rx cariprazine 3 mg capsule 3 mg PO DAILY 30 days #30 caps 12/01/24 12/01/24 Rx quetiapine 100 mg tablet 100 mg PO QHS #30 tabs 12/01/24 12/01/24 Rx PFSH Medical History Schizoaffective disorder, bipolar type Asthma Generalized anxiety disorder PTSD (post-traumatic stress disorder) delivery delivered Depression Diabetes Migraine TBI (traumatic brain injury) Surgical History H/O section History of appendectomy Social History adopted: Yes number of children: 1 current occupational status: unemployed 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 current occupational exposures/hazards: No pets and animals: No history of recent travel: No sexually active: No other: female Smoking Status: Never smoker Tobacco: How many years used: 0 Electronic Cigarette Use: not used second hand exposure: Yes alcohol intake: former substance use type: does not use caffeine: Yes eating out: rarely or never during the past year weight has: decreased > 10 lbs frequency: 3-4 times per week duration: 30-45 minutes/day leti/christianity: baptist seatbelt use: always do you feel safe at home: Yes additional social history: -no contact - not HPI History of Present Illness History provided by: patient HPI: Martita Hernandez is a 24 year old female patient presenting today for a follow up evaluation. Has been noticing an increase in irritability. Admits to feeling hopeless. Admits to feeling depressed every day all day long. Admits to difficulty getting out of bed and struggling to get herself together. 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 Admits to feelings of worthlessness and guilt. Is seeing someone 2x per week for counseling. Has been having some increased passive SI and wishing she would not wake up. Denies plan or intention. Has still been trying to remain active. Admits to difficulties with falling asleep as well as staying asleep. 5 hours per night on average. Admits to feeling of anxiety all the time. Admits to having panic attacks frequently and will have these due to flashbacks of trauma history. Admits to having nightmares almost nightly. Is grieving the loss of her brother and her father which has made the holidays difficult. Has discontinued use of Dramamine since last appointment. Admits to a lack of appetite. Has lost 45 pounds but has been exercising and making healthier choices with food. Previous similar episode: Yes Age of first onset of symptoms: 11-20 years Review of Systems Constitutional Reports: change in weight (Loss of 40 pounds this year), fatigue and change in sleep pattern; Denies: fever(s) or chills Eyes Denies: change in vision, blurry vision, photophobia, eye discomfort or eye discharge Ears, Nose, Mouth, Throat Denies: dysphagia, hoarseness, ear or mastoid pain, ear discharge, change in hearing, tinnitus, nasal congestion or epistaxis Cardiovascular Denies: chest pain or dyspnea Respiratory Denies: dyspnea, cou (more content not included)... Normal [facility] MR/BMS.BPon 11-10-2024 MR/BMS.BP [facility] [address] [place] [address], [address] [place] [address] OFFICE VISIT Date of Service: 11/10/24 MR#: [id number] Acct: [id number] Name: MARTITA HERNANDEZ Rep #: [id number] : 2000 Provider: SREE kelly Age/Sex: 24/F [place] [facility] Status: Signed Intake Vital Signs 10/16/24 14:20 11/10/24 14:12 Height 4 ft 8 in 4 ft 8 in Weight: 164 lb BMI 36.7 BP 116/80 124/84 H Blood Pressure Location Rt brachial Rt radial Position Sitting Sitting Respiration 16 Pulse 81 89 Pulse Source Monitor Monitor BP Intake Visit Reasons: 6 wk FU Accompanied by: Self Allergies dragon fruit Allergy (Intermediate, Verified 11/10/24 14:17) rash Penicillins Allergy (Verified 11/10/24 14:17) Rash fluoxetine (From Prozac) Adverse Reaction (Mild, Verified 11/10/24 14:17) Other Tricyclic Antidepressants and Tricy Adverse Reaction (Verified 11/10/24 14:17) adverse Medications ???Medication ???Instructions ???Recorded ???Confirmed ???Type cholecalciferol (vitamin D3) 50 50 mcg PO DAILY 05/26/24 11/10/24 History mcg (2,000 unit) capsule magnesium oxide 500 mg capsule 500 mg PO DAILY 05/26/24 11/10/24 History ferrous sulfate 325 mg (65 mg 325 mg PO DAILY 06/25/24 11/10/24 History iron) tablet ondansetron HCl 8 mg tablet 8 mg PO Q8H PRN nausea and 06/25/24 11/10/24 Rx vomiting #20 tabs theanine 200 mg capsule mg PO 06/25/24 11/10/24 History omeprazole 40 mg capsule,delayed 40 mg PO DAILY #30 caps 06/30/24 11/10/24 Rx release cariprazine 4.5 mg capsule 4.5 mg PO DAILY 30 days #30 caps 11/10/24 11/10/24 Rx clonidine HCl 0.1 mg tablet 0.1 mg PO BID PRN anxiety #60 tabs 11/10/24 11/10/24 Rx lamotrigine 25 mg tablet 75 mg (3 x 25 mg) PO QDAY #90 tabs 11/10/24 11/10/24 Rx quetiapine 50 mg tablet 50 mg PO QHS #30 tabs 11/10/24 11/10/24 Rx PFSH Medical History Schizoaffective disorder, bipolar type Asthma Generalized anxiety disorder PTSD (post-traumatic stress disorder) delivery delivered Depression Diabetes Migraine TBI (traumatic brain injury) Surgical History H/O section History of appendectomy Social History adopted: Yes number of children: 1 current occupational status: unemployed 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 current occupational exposures/hazards: No pets and animals: No history of recent travel: No sexually active: No other: female Smoking Status: Never smoker Tobacco: How many years used: 0 Electronic Cigarette Use: not used second hand exposure: Yes alcohol intake: former substance use type: does not use caffeine: Yes eating out: rarely or never during the past year weight has: decreased > 10 lbs frequency: 3-4 times per week duration: 30-45 minutes/day leti/christianity: baptist seatbelt use: always do you feel safe at home: Yes additional social history: -no contact - not HPI History of Present Illness History provided by: patient and family (mother- Kassandra) HPI: Martita Hernandez is a 24 year old female patient presenting today for a follow up evaluation. Admits to feeling like things have only worsened and feels she is anger all the time. Reports she has not interest in anything any more and she hates life. Is angry all the time. Doesn't want to be around others and wants to isolate herself. She feels she has been overeating but that her weight has been downs till. Admits to some passive SI. Denies plan or intent. Is feeling depressed all day every day. Is frustrated that she has not heard anything from pain management but has started the process for medical marijuana. Is still struggling with sleep. 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 Has been getting about 4 hours of sleep. Does not feel mirtazapine has helped with sleep at all. Admits to heightened anxiety and has been taking clonidine BID. Admits to having panic attacks and had a hallucination of a large man in her room which caused the most recent panic attack. Previous similar episode: Yes Age of first onset of symptoms: 11-20 years Review of Systems Constitutional Reports: change in weight (Loss of 40 pounds this year), fatigue and change in sleep pattern; Denies: fever(s) or chills Eyes Denies: change in vision, blurry vision, photophobia, eye discomfort or eye discharge Ears, Nose, Mouth, Throat Denies: dysphagia, hoarseness, ear or mastoid pain, ear discharge, change in hearing, tinnitus, nasal congestion or epistaxis Cardiovascular Denies: chest pain or dyspnea Respiratory Denies: dyspnea, cough or wheezing Gastrointestinal Reports: abdominal pain (After eating), (more content not included)... Normal [facility] MR/BMS.BPon 10-16-2024 MR/BMS.[address], [address] [place] [address] OFFICE VISIT Date of Service: 10/16/24 MR#: [id number] Acct: [id number] Name: MARTITA HERNANDEZ Rep #: [id number] : 2000 Provider: SREE kelly Age/Sex: 24/F [place] [facility] Status: Signed Intake Vital Signs 09/11/24 14:27 10/16/24 14:18 10/16/24 14:20 Height 4 ft 8 in 4 ft 8 in BP 116/80 Blood Pressure Location Rt brachial Position Sitting Pulse 81 Pulse Source Monitor BP Intake Visit Reasons: 5wfu Allergies dragon fruit Allergy (Intermediate, Verified 10/16/24 14:20) rash Penicillins Allergy (Verified 10/16/24 14:20) Rash fluoxetine (From Prozac) Adverse Reaction (Mild, Verified 10/16/24 14:20) Other Tricyclic Antidepressants and Tricy Adverse Reaction (Verified 10/16/24 14:20) adverse Medications ???Medication ???Instructions ???Recorded ???Confirmed ???Type cholecalciferol (vitamin D3) 50 50 mcg PO DAILY 05/26/24 10/16/24 History mcg (2,000 unit) capsule magnesium oxide 500 mg capsule 500 mg PO DAILY 05/26/24 10/16/24 History ferrous sulfate 325 mg (65 mg 325 mg PO DAILY 06/25/24 10/16/24 History iron) tablet ondansetron HCl 8 mg tablet 8 mg PO Q8H PRN nausea and 06/25/24 10/16/24 Rx vomiting #20 tabs theanine 200 mg capsule mg PO 06/25/24 10/16/24 History omeprazole 40 mg capsule,delayed 40 mg PO DAILY #30 caps 06/30/24 10/16/24 Rx release cariprazine 4.5 mg capsule 4.5 mg PO DAILY 30 days #30 caps 08/25/24 10/16/24 Rx clonidine HCl 0.1 mg tablet 0.1 mg PO QDAY PRN anxiety #30 tabs 10/16/24 10/16/24 Rx lamotrigine 25 mg tablet 75 mg (3 x 25 mg) PO QDAY #90 tabs 10/16/24 10/16/24 Rx mirtazapine 7.5 mg tablet 7.5 mg PO QHS #30 tabs 10/16/24 10/16/24 Rx PFSH Medical History Schizoaffective disorder, bipolar type Asthma Generalized anxiety disorder PTSD (post-traumatic stress disorder) delivery delivered Depression Diabetes Migraine TBI (traumatic brain injury) Surgical History H/O section History of appendectomy Social History adopted: Yes number of children: 1 current occupational status: unemployed 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 current occupational exposures/hazards: No pets and animals: No history of recent travel: No sexually active: No other: female Smoking Status: Never smoker Tobacco: How many years used: 0 Electronic Cigarette Use: not used second hand exposure: Yes alcohol intake: former substance use type: does not use caffeine: Yes eating out: rarely or never during the past year weight has: decreased > 10 lbs frequency: 3-4 times per week duration: 30-45 minutes/day leti/christianity: baptist seatbelt use: always do you feel safe at home: Yes additional social history: -no contact - not HPI History of Present Illness History provided by: patient and family (mother- Kassandra) HPI: Martita Hernandez is a 24 year old female patient presenting today for a follow up evaluation. Reports that over the last week she has been in a terrible mood and has been feeling more depressed. Does feel this is consistent with increasing lamotrigine dose. Has been very short with other and on edge. Feels she is less patient with her son. Does report when she was taking 50mg she was noticing a large amount of ups and downs still but with increasing to 100 she has not noticed the ups and downs but just feels down all the time. Does feel she is wanting to sleep all the time and has been struggling to sleep at bedtime even with the use of trazodone. Is only getting 3-4 hours per night of good sleep and the rest is poor and broken. Does feel she has been having improvements in anxiety with the use of clonidine. Has not been able to find interest in anything and feels disinterested in anything. Also feels she has been crying all the time. Does feel she has had an increase in SI but denies plan or intent. Does feel when she is having nightmares she is having more anxiety throughout the day. Does feel panic attacks have decreased in frequency and severity. Reports a poor appetite. Does feel some days she will binge and other days she will eat constantly. Previous similar episode: Yes Age of first onset of symptoms: 11-20 years Review of Systems Constitutional Reports: change in weight (Loss of 40 pounds this year), fatigue and change in sleep pattern (Difficulty staying asleep, trazodone; abnormal sleep pattern); Denies: fever(s) or chills Eyes Denies: change in vision, blurry vision, photophobia, eye discomfort or eye discharge Ears, Nose, Mouth, Throat Denies: dysphagia, hoarseness, ear or mastoid pain, ear discharge, tyshawn (more content not included)... Normal [facility] HSV 1 AND 2 IgGon 10-06-2024 HSV 1 IgG Normal [facility] Comment on above: Result Comment: TEST RESULTS LIMITS HSV 1 and 2 Ab, IgG HSV 1 IgG, Type Spec Non Reactive Non Reactive Please note reference interval change HSV-1 IgG testing performed using the [employer] HSV-1 IgG assay. HSV 2 IgG, Type Spec Non Reactive Non Reactive Please note reference interval change Current guidelines and recommendations do not recommend routine screening for HSV-2 in asymptomatic individuals, including those that are . The detection of HSV-2 IgG antibodies in a single sample indicates previous exposure to HSV-2 but does not give information as to the site of HSV infection or the timing of exposure. The predictive value of positive and negative results depends on the population's prevalence and the pretest likelihood of HSV-2. HSV-2 IgG testing performed using the [employer] HSV-2 IgG assay. TESTING PERFORMED AT [facility]. ORIGINAL REPORT ON FILE IN LAB CONTAINS ADDITIONAL TEST SITE INFORMATION. Performed By: #### L 3890.6100, L3890.6005, L3400.1610, L3890.6300, L509.8000 ####[facility] [address] [place], [address] Chlamydia/GC HUGH aptimaon CHLAMY,NUC ACID Negative Normal Negative [facility] Comment on above: Performed By: #### L 7000.1800 ####[facility] [address] [place], [place], [address] GC BY NUC ACID Negative Normal Negative [facility] Comment on above: Result Comment: Perf ormed at: =G - [facility] [address] [place] [id number] Regional Project Manager: Jaimie Harvey MD, Phone: [phone] Performed By: #### L 7000.1800 ####[facility] [address] [place], [place], [address] MR/BMS.BPon 09-11-2024 MR/BMS.BP [address], [address] [place] [address] OFFICE VISIT Date of Service: 09/11/24 MR#: [id number] Acct: [id number] Name: MARTITA HERNANDEZ Rep #: [id number] : 2000 Provider: SREE kelly Age/Sex: 24/F [place] [facility] [place] Status: Signed Intake Vital Signs 09/04/24 09:53 09/10/24 09:15 09/11/24 14:27 Height 4 ft 8 in 4 ft 8 in 4 ft 8 in BP Intake Visit Reasons: 1mfu Allergies dragon fruit Allergy (Intermediate, Verified 09/10/24 09:15) rash Penicillins Allergy (Verified 09/10/24 09:15) Rash fluoxetine (From Prozac) Adverse Reaction (Mild, Verified 09/10/24 09:15) Other Tricyclic Antidepressants and Tricy Adverse Reaction (Verified 09/10/24 09:15) adverse PFSH Medical History Schizoaffective disorder, bipolar type Asthma Generalized anxiety disorder PTSD (post-traumatic stress disorder) delivery delivered Depression Diabetes Migraine TBI (traumatic brain injury) Surgical History H/O section History of appendectomy Social History adopted: Yes number of children: 1 current occupational status: unemployed 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 current occupational exposures/hazards: No pets and animals: No history of recent travel: No sexually active: No other: female Smoking Status: Never smoker Tobacco: How many years used: 0 Electronic Cigarette Use: not used second hand exposure: Yes alcohol intake: former substance use type: does not use caffeine: Yes eating out: rarely or never during the past year weight has: decreased > 10 lbs frequency: 3-4 times per week duration: 30-45 minutes/day leti/christianity: baptist seatbelt use: always do you feel safe at home: Yes additional social history: -no contact - not HPI History of Present Illness History provided by: patient Chief complaint: Mood Swings HPI: Martita Hernandez is a 24 year old female patient presenting today for a follow up evaluation. Does feel she has been having a lot of daniella symptoms recently. Does admit to a time recently where she was having a lot of lows and lack of motivation and then had a couple day period where she was feeling manic and even went on an 8 mile walk because she was unable to stay still and was having difficulty sleeping. Does feel she has been depressed the last few days and is struggling with some personal issues. Does enjoy walking as a way to help with mood. Some passive SI. Denies plan or intent. Feels she is constantly searching for things to make herself feel better. Feels anxiety has been out of control. Is having frequent panic attacks. Has been trying to do stress relieving techniques to help. Has not been sleeping well and has been getting a max of 4 hours per nights. Feels exhausted when she is not feeling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 for clinical interpretation. In patients with unstable renal function, e.g. those with acute kidney injury, the eGFR may not accurately reflect actual GFR. Performed By: #### 2 4323-8, 1988-04, , 3034-05 #### [facility] CLIA [id number] [address] [place] [address] [place] Glucose [Mass/Vol] 93 mg/dL Normal 74-99 [facility] Comment on above: Order Comment: Speci men Type: BLOOD SPECIMEN Ordering Facility: [facility] Address: [address] [place] [address] Result Comment: The [place] Diabetes Association (ADA) provides guidance for cutoff values for fasting glucose and random glucose. The ADA defines fasting as no caloric intake for at least 8 hours. Fasting plasma glucose results between 100 to 125 mg/dL indicate increased risk for diabetes (prediabetes). Fasting plasma glucose results greater than or equal to 126 mg/dL meet the criteria for diagnosis of diabetes. In the absence of unequivocal hyperglycemia, results should be confirmed by repeat testing. In a patient with classic symptoms of hyperglycemia or hyperglycemic crisis, random plasma glucose results greater than or equal to 200 mg/dL meet the criteria for diagnosis of diabetes. Reference: Standards of Medical Care in Diabetes 2016, [place] Diabetes Association. Diabetes Care. 2016.39(Suppl 1). Performed By: #### 2 4328, 1988-04, , 3034-05 #### [facility] CLIA [id number] [address] [place] [address] [place] Potassium [Moles/Vol] 3.8 mmol/L Normal 3.7-5.1 [facility] Comment on above: Order Comment: Speci men Type: BLOOD SPECIMEN Ordering Facility: [facility] Address: [address] [place] [address] Performed By: #### 2 4328, 1988-04, , 3034-05 #### [facility] CLIA [id number] [address] [place], [place] [id number] [place] Protein [Mass/Vol] 7.6 g/dL Normal 6.3-8.0 [facility] Comment on above: Order Comment: Speci men Type: BLOOD SPECIMEN Ordering Facility: [facility] Address: [address] [place], [place] [address] Performed By: #### 2 4328, 1988-04, , 3034-05 #### [facility] CLIA [id number] [address] [place] [address] [place] Sodium [Moles/Vol] 138 mmol/L Normal 136-144 [facility] Comment on above: Order Comment: Speci men Type: BLOOD SPECIMEN Ordering Facility: [facility] Address: [address] [place] [address] Performed By: #### 2 432-8, 1988-04, , 6 #### [facility] CLIA [id number] [address] [place] [address] [place] Urea nitrogen [Mass/Vol] 9 mg/dL Normal 7-21 [facility] Comment on above: Order Comment: Speci men Type: BLOOD SPECIMEN Ordering Facility: [facility] Address: [address] [place] [address] Performed By: #### 2 432-8, 1988-04, , 6 #### [facility] CLIA [id number] [address] [place] [address] [place] Iron and Iron binding capaci ty panelon 09-07-2024 Iron [Mass/Vol] 94 ug/dL 41 - 186 ug/dL [facility] Iron binding capacity [Mass/Vol] 333 ug/dL 232 - 386 ug/dL [facility] Iron/TIBC [Molar ratio] 28.2 % 15.0 - 57.0 % [facility] Iron [Mass/Vol] 94 ug/dL Normal 41-186 [facility] Comment on above: Order Comment: Speci men Type: BLOOD SPECIMEN Ordering Facility: [facility] Address: [address] [place] [address] Performed By: #### 2 4323-8 #### [facility] CLIA [id number] [address] [place] [address] [place] Iron binding capacity [Mass/Vol] 333 ug/dL Normal 232-386 [facility] Comment on above: Order Comment: Speci men Type: BLOOD SPECIMEN Ordering Facility: [facility] Address: [address] [place] [address] Performed By: #### 2 4323-8 #### [facility] CLIA [id number] [address] [place] [address] [place] Iron/TIBC [Molar ratio] 28.2 % Normal 15.0-57.0 [facility] Comment on above: Order Comment: Speci men Type: BLOOD SPECIMEN Ordering Facility: [facility] Address: [address] [place] [address], [place] [address] Performed By: #### 2 4323-8 #### [facility] CLIA [id number] [address] [place] [address] [place] No Panel Informationon 09-07 Interpretation and review of laboratory results Normal [facility] TRANSFERRINon 09-07-2024 Transferrin [Mass/Vol] 270 mg/dL 200 - 360 mg/dL [facility] Transferrin SerPl-mCncon Transferrin [Mass/Vol] 270 mg/dL Normal 200-360 [facility] Comment on above: Order Comment: Speci men Type: BLOOD SPECIMEN Ordering Facility: [facility] Address: [address] [place] [address], [place] [address] Performed By: #### 2 4323-8 #### [facility] CLIA [id number] [address] [place] [address] [place] VITAMIN D 25 HYDROXYon 09-07 25-hydroxyvitamin D3 [Mass/Vol] 27.8 ng/mL Low 31.0 - 80.0 ng/mL [facility] Comment on above: Classification of 25 [place] Vitamin D status: Deficiency/Insufficiency: < or = 30 ng/ml. Sufficiency/Optimal Levels: 31-80 ng/mL Toxicity: > 100 ng/mL. Test performed by chemiluminescent immunoassay. Vit B12 SerPl-mCncon 024 Cobalamin (Vitamin B12) [Mass/Vol] 702 pg/mL Normal 232-1245 [facility] Comment on above: Order Comment: Speci men Type: BLOOD SPECIMEN Ordering Facility: [facility] Address: [address] [place] [address], [place] [id number] Performed By: #### 2 4323-8 #### [facility] CLIA [id number] [address] [facility] [facility] [address] [place] [id number] [place] [facility] Internal Medicine Office Vis alpa 09-04-2024 Internal Medicine Office Visit [facility] [address] [place], [place] [address] OFFICE VISIT Date of Service: 09/04/24 MR#: [id number] Acct: [id number] Name: MARTITA HERNANDEZ Rep #: [id number] : 2000 Provider: SREE trivedi Age/Sex: 24/F Location[facility] Status: Signed Intake Vital Signs 06/05/24 13:05 08/07/24 13:03 09/04/24 09:53 Height 4 ft 8 in 4 ft 8 in 4 ft 8 in Weight: 171 lb 6 oz BMI 38.4 BP 118/68 Blood Pressure Location Lt brachial Position Sitting Respiration 16 Pulse 94 Pulse Source Monitor Temp 98.0 F Temp Source Temporal Pulse Oximetry (%) 98 Oxygen Delivery Method room air Intake Visit Reasons: 3 M FU Chief Complaint: 3m f/u Production Expediter Required: No Accompanied by: Self Is patient in pain?: No Allergies dragon fruit Allergy (Intermediate, Verified 09/04/24 09:51) rash Penicillins Allergy (Verified 09/04/24 09:51) Rash fluoxetine (From Prozac) Adverse Reaction (Mild, Verified 09/04/24 09:51) Other Tricyclic Antidepressants and Tricy Adverse Reaction (Verified 09/04/24 09:51) adverse Medications ???Medication ???Instructions ???Recorded ???Confirmed ???Type cholecalciferol (vitamin D3) 50 50 mcg PO DAILY 05/26/24 09/04/24 History mcg (2,000 unit) capsule magnesium oxide 500 mg capsule 500 mg PO DAILY 05/26/24 09/04/24 History ferrous sulfate 325 mg (65 mg 325 mg PO DAILY 06/25/24 09/04/24 History iron) tablet ondansetron HCl 8 mg tablet 8 mg PO Q8H PRN nausea and 06/25/24 09/04/24 Rx vomiting #20 tabs theanine 200 mg capsule mg PO 06/25/24 09/04/24 History omeprazole 40 mg capsule,delayed 40 mg PO DAILY #30 caps 06/30/24 09/04/24 Rx release cariprazine 4.5 mg capsule 4.5 mg PO DAILY 30 days #30 caps 08/25/24 09/04/24 Rx trazodone 150 mg tablet 150 mg PO QHS PRN insomnia 30 days 08/31/24 09/04/24 Rx #30 tabs PFSH Medical History Schizoaffective disorder, bipolar type Asthma Generalized anxiety disorder PTSD (post-traumatic stress disorder) delivery delivered Depression Diabetes Migraine TBI (traumatic brain injury) Surgical History H/O section History of appendectomy Social History adopted: Yes number of children: 1 current occupational status: unemployed 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 current occupational exposures/hazards: No pets and animals: No history of recent travel: No sexually active: No other: female Smoking Status: Never smoker Tobacco: How many years used: 0 Electronic Cigarette Use: not used second hand exposure: Yes alcohol intake: former substance use type: does not use caffeine: Yes eating out: rarely or never during the past year weight has: decreased > 10 lbs frequency: 3-4 times per week duration: 30-45 minutes/day leti/christianity: baptist seatbelt use: always do you feel safe at home: Yes additional social history: -no contact - not HPI HPI Chief Complaint: 3m f/u Details: MARTITA HERNANDEZ, is a 24 F who presents to the office today for routine f/u. She reports she saw Dr. May at [facility] for ongoing GI complaints and +occult stool, further lab work up is pending but sx are stable. She states she completed the IOP program and found this helpful, she does inquire on ADHD testing today. She is following with psychiatry and states she is doing well on her current medication regimen. She denies SI/HI. She is following with 180 for counseling. At her last visit patient had reported allover body pain, laboratory workup was essentially negative however with elevated CRP. She was referred to rheumatology for further evaluation. She reports her symptoms have somewhat resolved but she continues to feel that her joints are achy. No additional or new symptoms noted. She states she has an appointment with rheumatology in October. She has concerns today regarding her weight, she reports she has lost 30 pounds intentionally over the past year by cutting out processed/convenience foods however she continues to feel that her weight has plateaued. She states she walks 10,000 steps a day, drinks plenty of water, eats fruits vegetables and limits her processed food intake. She states she attends the [employer] 3-4 times per week and participates in resistance training. She inquires if there is anything further she should be trying. No additional questions or concerns today. ROS Const Constitutional: No body ache, chills, excessive sweating, fatigue, fever(s), frequent falls, headache(s), snoring, weakness or change in appetite Eyes Eyes: No blurry vision, change in vision, eye pain or Light sensitivity ENT ENT: No abnormal hea (more content not included)... Normal [facility] Office Visit Reporton 2023 Office Visit Report [facility] [address] [place] [address] OFFICE VISIT Date of Service: 09/01/24 MR#: [id number] Acct: [id number] Patient: MARTITA HERNANDEZ Rep #: [id number] : 2000 Provider: MAHIN NURSE Age/Sex: 24/F Location: [facility] Status: Signed Intake Vital Signs 08/07/24 13:03 Height 4 ft 8 in Intake Visit Reasons: FLU SHOT Chief Complaint: flu shot Allergies dragon fruit Allergy (Intermediate, Verified 09/01/24 08:36) rash Penicillins Allergy (Verified 08/20/24 16:34) Rash fluoxetine (From Prozac) Adverse Reaction (Mild, Verified 08/20/24 16:34) Other Tricyclic Antidepressants and Tricy Adverse Reaction (Verified 08/20/24 16:34) adverse Immunizations Flucelvax Triv 2607-1854 (PF) 45 mcg (15 mcg x 3)/0.5 mL IM syringe Performing Provider: SREE Rivas Performing Location: [facility] Administered by: Alisia Curry MA on 09/01/24 08:47 Dose Route Admin Location Dispensed Lot Number Expiration Date NDC Man ufacturer 0.5 mL IM Left Deltoid 0.5 mL [id number] 04/28/25 35130-431-32 [facility] [place]. VIS Given Date VIS Provided VIS Publication Date 09/01/24 Single Vaccine 24 Eligibility Eligibility Date Funding Source Not Applicable Assessment and Plan Assessment and Plan Orders: Orders Influenza Immunization Today Z23 - Encounter for immunization 09/01/24 1700 Date Roxann BALBUENA Cosigner Signature: Date (if applicable) CC: Normal [facility] Foot min 3 Viewson 4 Foot min 3 Views [facility] Services [address] [place], [place] [address] Foot min 3 Views MR#: [id number] Acct: [id number] Name: MARTITA HERNANDEZ Rep #: [id number] : 2000 F 24 From: David Alberts MD PCP: SREE Rivas Status: REG CLI Study: Foot min 3 Views Date of Exam: 08/20/24 Exam# [id number] Ordering Dr: Martin Ramos [place] [id number] STUDY: X-RAY - RIGHT FOOT CLINICAL: Female, 24 years old. foot injury TECHNIQUE: 3 view(s) of the foot. COMPARISON: None. FINDINGS: Normal talus, calcaneus, and tarsal bones. Normal visualized subtalar, talonavicular, calcaneocuboid, tarsal and tarsometatarsal articulations. Normal metatarsi. Normal metatarsophalangeal joint of the great toe. Normal tibial and fibular sesamoid bones. Normal interphalangeal joint of the great toe. Normal phalanges of the great toe. Normal second through fifth metatarsophalangeal joints. Normal interphalangeal joints and phalanges of the lesser toes. The soft tissue structures are unremarkable. RAD/Foot min 3 Views IMPRESSION: Normal x-ray examination of the foot. Electronically Signed: David Alberts MD at 16:55 EDT , CC: SREE Erazo; NABEEL Mancilla Rough Planer Tender: Signed Normal [facility] Urgent Care Visit Reporton 0 08-20-2024 Urgent Care Visit Report [facility] [address], [address] [place] [address] OFFICE VISIT Date of Service: 08/20/24 MR#: [id number] Acct: [id number] Name: MARTITA HERNANDEZ Rep #: [id number] : 2000 Provider: NABEEL Mancilla Age/Sex: 24/F Location: [facility] Status: Signed Intake Vital Signs 08/07/24 13:03 08/20/24 16:34 Height 4 ft 8 in Weight: 173 lb BMI 38.7 BP 115/78 120/58 L Blood Pressure Location Rt brachial Lt brachial Position Sitting Sitting Respiration 16 15 Pulse 79 92 Pulse Source Monitor NIBP Temp 98.0 F Temp Source Temporal Pulse Oximetry (%) 98 99 Oxygen Delivery Method room air room air Intake Visit Reasons: R FOOT INJURY Chief Complaint: right foot injury Production Expediter Required: No Is patient in pain?: Yes Allergies Penicillins Allergy (Verified 08/20/24 16:34) Rash fluoxetine (From Prozac) Adverse Reaction (Mild, Verified 08/20/24 16:34) Other Tricyclic Antidepressants and Tricy Adverse Reaction (Verified 08/20/24 16:34) adverse Is last menstrual period known: No Post menopausal: No Patient : No Have you fallen in the past year?: Yes Nurse's Note: pt tripped at home 1 week ago injuring right foot--metatarsal area. states pain and intermittent swelling continue. ambulates without limp unassisted. no deformity or discoloration noted at this time. 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 current occupational exposures/hazards: No pets and animals: No history of recent travel: No sexually active: No other: female Smoking Status: Never smoker Tobacco: How many years used: 0 Electronic Cigarette Use: not used second hand exposure: Yes alcohol intake: former substance use type: does not use caffeine: Yes eating out: rarely or never during the past year weight has: decreased > 10 lbs frequency: 3-4 times per week duration: 30-45 minutes/day leti/christianity: baptist seatbelt use: always do you feel safe at home: Yes additional social history: -no contact - not HPI HPI Chief Complaint: right foot injury Details: MARTITA HERNANDEZ, is a 24 F who presents to the office today for initial evaluation of an injury to the right foot. Patient states that 1 week ago she tripped over her child stroller and came down hard on her right foot. She states that since then she has had some tingling sensation to the right foot particularly over the distal portion of foot by the toes. No numbness or loss range of motion. No previous injuries to same. No other associated symptoms or alleviating/aggravatin g factors. ROS Const Constitutional: No other (6 system ROS completed with pertinent findings in the HPI otherwise normal.) Exam Extrem General: full ROM, capillary refill normal and normal exam except as noted (Mild soft tissue swelling over distal right metatarsals.) Coding Level of Care Code Off vis,new,level 4 Diagnoses Right foot strain S96.911A Assessment and Plan Assessment and Plan (1) Right foot strain: Status: Acute Plan: X-ray of the right foot read and interpreted by myself find no acute osseous abnormalities, awaiting radiology interpretation at time of patient discharge. Patient advised of RICE techniques as well as use of ibuprofen or Tylenol as needed for pain unless contraindicated. Medrol Dosepak as prescribed today. Patient advised to follow-up with podiatry in 10 to 14 days if no better or sooner if worse. Patient verbalized understanding and agreement with all the above. Orders: Orders Foot min 3 Views Today S99.929A - Unspecified injury of unspecified foot, initial encounter Medications: New methylprednisolone (Medrol (Sarah)) 4 mg PO PER PKG DIR 6 days 21 tabs 0RF Clinical Quality Measures Falls Risk Screening/Assistive Devices Have you fallen in the past year?: Yes 08/20/24 1709 Date Martin Ga Signature: Date (if applicable) CC: Normal [facility] MR/BMS.BPon 08-07-2024 MR/BMS.BP [address], [address] [place] [address] OFFICE VISIT Date of Service: 08/07/24 MR#: [id number] Acct: [id number] Name: MARTITA HERNANDEZ Rep #: [id number] : 2000 Provider: SREE kelly Age/Sex: 24/F [place] [facility] Status: Signed Intake Vital Signs 06/05/24 13:05 07/01/24 11:22 08/07/24 12:54 08/07/24 13:03 Height 4 ft 8 in 4 ft 8 in 4 ft 8 in 4 ft 8 in Weight: 173 lb BMI 38.7 BP 115/78 Blood Pressure Location Rt brachial Position Sitting Respiration 16 Pulse 79 Pulse Source Monitor Pulse Oximetry (%) 98 Oxygen Delivery Method room air BP Intake Visit Reasons: Anxiety/Bipolar Accompanied by: Self Is patient in pain?: Yes (Generalized achiness) Pain scale (1-10): 8 Allergies Penicillins Allergy (Verified 08/07/24 12:56) Rash fluoxetine (From Prozac) Adverse Reaction (Mild, Verified 08/07/24 12:56) Other Tricyclic Antidepressants and Tricy Adverse Reaction (Verified 08/07/24 12:57) adverse Medications ???Medication ???Instructions ???Recorded ???Confirmed ???Type cholecalciferol (vitamin D3) 50 50 mcg PO DAILY 05/26/24 08/07/24 History mcg (2,000 unit) capsule magnesium oxide 500 mg capsule 500 mg PO DAILY 05/26/24 08/07/24 History ferrous sulfate 325 mg (65 mg 325 mg PO DAILY 06/25/24 08/07/24 History iron) tablet ondansetron HCl 8 mg tablet 8 mg PO Q8H PRN nausea and 06/25/24 08/07/24 Rx vomiting #20 tabs theanine 200 mg capsule mg PO 06/25/24 08/07/24 History omeprazole 40 mg capsule,delayed 40 mg PO DAILY #30 caps 06/30/24 08/07/24 Rx release cariprazine 3 mg capsule (Vraylar) 3 mg PO DAILY 30 days #30 caps 07/15/24 08/07/24 Rx trazodone 150 mg tablet 150 mg PO QHS PRN insomnia 30 days 07/29/24 08/07/24 Rx #30 tabs PFSH Medical History (Updated 08/11/24 @ 07:00 by SREE Williamson) Schizoaffective disorder, bipolar type Asthma Generalized anxiety disorder PTSD (post-traumatic stress disorder) delivery delivered Depression Diabetes Migraine TBI (traumatic brain injury) Surgical History H/O section History of appendectomy Social History adopted: Yes number of children: 1 current occupational status: unemployed 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 current occupational exposures/hazards: No pets and animals: No history of recent travel: No sexually active: No other: female Smoking Status: Never smoker Tobacco: How many years used: 0 Electronic Cigarette Use: not used second hand exposure: Yes alcohol intake: former substance use type: does not use caffeine: Yes eating out: rarely or never during the past year weight has: decreased > 10 lbs frequency: 3-4 times per week duration: 30-45 minutes/day leti/christianity: baptist seatbelt use: always do you feel safe at home: Yes additional social history: -no contact - not HPI History of Present Illness History provided by: patient Chief complaint: depression HPI: Martita Hernandez is a 24 year old female patient presenting today for an intake evaluation. Is currently in the IOP program for another 2 weeks. Has been struggling with mental health and it being debilitating to her life and through community resources was encouraged to go into the IOP. Does feel nervous that when she isn't doing IOP that she is going to feel depressed and hopeless. Does report a lot of sensory issues and not liking to be touched. Did have an IEP in school. Sleep: Does not sleep well without Trazodone. Will sleep 3 hours without the Trazodone and sleeps 6 with it. Interrupted sleep. Interest: Does struggle to find alejandra in things. Is trying to complete things that bring her alejandra but struggles. Feels depressed every day. Feels she is struggling with future planning. Energy: Does not wake up feeling well rested. Does have some energy but feels it is minimal. Always feels ready for bed. Guilt: Does report feelings of guilt, hopelessness, and worthlessness nearly all the time. Does feel broken and like she is a bad human because she struggles with mental health. Concentration: Does struggle with focus, concentration, and inattention. Previously diagnosed with ADD in adolescence. Appetite: Feels appetite is poor. Will graze throughout the day. Lost 40 pounds this year. Psychomotor: WNL Suicide: Does have some passive SI. Denies plan or intent. Memory: Forgetful. Does report she will black out for days at a time. Does dissociate. Has a hx of TBI and feels this contributes as well. Anxiety: Does feel anxious all the time. Does at times panic about things that could happen. Does feel she is having panic attacks daily but in different levels of severity. Will becom (more content not included)... Normal [facility] Inital Evaluation (1) - PTon 08-06-2024 Inital Evaluation (1) - PT [facility] Physical Therapy [facility] [address] [place] [address] / REHABILITATION SERVICES INITIAL EVALUATION MR#: [id number] Acct: [id number] Name: MARTITA HERNANDEZ Rep #: [id number] : 2000 24 From: Deyanira TURNER Referring Dr.: SREE Rivas Status: REG RCR Insurance: [facility] SELF PAY INSURANCE Patient's Visit Information Visit Information Visit Information: MARTITA HERNANDEZ is a 24 year old F referred to Physical Therapy by SREE Rivas with a diagnosis of Polyarthralgia. Date of Evaluation: 08/06/24 Physical Therapist: YUE Dowell Visit Plan Frequency: 2x /Week Duration: 2 Months Plan: 2X/ week for 8 weeks for AT for LE strength, UE strength, core strength, stretching of B HS/Quads/hip flexor and piriformis with HEP. Subjective Subjective: In May she started having body aches and joint pain. They have not been able to pinpoint what is going on. She wants to start some water therapy because she notices that when she is in the water she is better. Her pain is affecting her everyday life. Today her pain is in her arms and in her thighs and it is very achy and she feels like her whole body is inflamed. They are leaning towards fibro and RA. Her stress level is very high. When she woke up this morning pain was 10/10 pain. She was on prednisone for awhile but not good for her bipolar. Pain Arm pain: Pain Intensity (Out of 10): 7 Thigh pain: Pain Intensity (Out of 10): 7 Objective Objective: Gait: Walks with normal gait pattern. Heel and toe raises: able to heels and toe raises LE MMT: 4/5 B hip flex, abd, knee flex and ext and B hip ext 4-/5 UE MMT: 4/5 B shoulder flex/ABD, ER/IR Pt is able to do 3/4 normal ROM bridge Pt has increase HS/Quad tightness and B piriformis Balance/Special Test Scores Lower Extremity Functional Score: 35 Goals Goal 1:: I HEP Goal Time Frame: 4-6 Weeks Goal 2:: Decrease overall pain to 3/10 upon walking up in the morning 50% of the week Goal Time Frame: 4-6 Weeks Goal 3:: Increase flexibility of B HS/Quads/hip flexor/piriformis Goal Time Frame: 4-6 Weeks Goal 4:: Increase LE and UE strength and pt report feeling of increase strength throughout her day Goal Time Frame: 4-6 Weeks Rehabilitation Potential Rehabilitation Potential: Excellent Anticipated Interventions Patient/Client Instruction: Educate patient on: Condition and Plan of Care For the Purpose of:: To decrease pain, To increase ROM, To improve nutrient delivery to tissue, To improve muscle performance and motor function, To improve ability to perform ADL's, To increase tolerance to activity/condition/pos ition, To improve performance and independence with ADL's, To decrease level of supervision to perform tasks, To improve ability of physical actions for home/community/work/le isure, To improve gait and locomotor functions, To improve health of tissue, To decrease soft tissue restriction, To increase flexibility/ROM and To improve endurance Therapeutic Exercise to Include: Strength training, Endurance training, Balance training, Postural training, Flexibilty training, Gait and locomotor training, Neuromotor development, In an aquatic setting, Active ROM, Dynamic Lumbar Stabilization and Scapular Strength/Stabilization For the Purpose of:: To decrease pain, To increase ROM, To improve nutrient delivery to tissue, To improve muscle performance and motor function, To improve ability to perform ADL's, To increase tolerance to activity/condition/pos ition, To improve performance and independence with ADL's, To decrease level of supervision to perform tasks, To improve ability of physical actions for home/community/work/le isure, To improve gait and locomotor functions, To improve health of tissue, To decrease soft tissue restriction and To increase flexibility/ROM Text: Thank you for the opportunity to evaluate your patient. For Medicare and Medicare HMO plans, please review the plan of care and approve it. It will need to be FAXED BACK to us at [phone] for Medicare purposes. For Medicare only, by signing this I certify the plan of care. Please let me know if there are questions or concerns regarding this plan of care. Physician Signature: Date:__ 08/06/24 0748 CC: SREE Roxann Erazo Signed Normal [facility] ANCAon 07-02-2024 Atypical pANCA <1:20 Normal Neg:<1:20 [facility] Comment on above: Result Comment: The atypical pANCA pattern has been observed in a significant percentage of patients with ulcerative colitis, primary sclerosing cholangitis and autoimmune hepatitis. Performed By: #### L 101.9900, L3300.1200, L501.3620, L500.4050, L3100.5440, L100.0100, L501.6710, L7000.5300, L4500.0100 ####[facility] [address] [place], [place], [phone] Cytoplasmic Ab <1:20 Normal Neg:<1:20 [facility] Comment on above: Performed By: #### L 101.9900, L3300.1200, L501.3620, L500.4050, L3100.5440, L100.0100, L501.6710, L7000.5300, L4500.0100 ####[facility] [address] [place], [address] Perinuclear Ab. <1:20 Normal Neg:<1:20 [facility] Comment on above: Result Comment: The presence of positive fluorescence exhibiting P-ANCA or C-ANCA patterns alone is not specific for the diagnosis of Serena's Granulomatosis (WG) or microscopic polyangiitis. Decisions about treatment should not be based solely on ANCA IFA results. The International ANCA Group Consensus recommends follow up testing of positive sera with both MN- 3 and MPO-ANCA enzyme immunoassays. As many as 5% serum samples are positive only by EIA. Ref. AM J Clin Pathol 1999;111:507-513. Performed By: #### L 101.9900, L3300.1200, L501.3620, L500.4050, L3100.5440, L100.0100, L501.6710, L7000.5300, L4500.0100 ####[facility] [address] [place], [place], [phone] Lupus Anticoagulant Compon 0 8- aPTT Coag (Bld) [Time] 38.2 s Normal 0.0-43.5 [facility] Comment on above: Performed By: #### L 101.9900, L3300.1200, L501.3620, L500.4050, L3100.5440, L100.0100, L501.6710, L7000.5300, L4500.0100 ####[facility] [address] [place], [address] DILUTE PT (dPT) 34.6 sec Normal 0.0-47.6 [facility] Comment on above: Performed By: #### L 101.9900, L3300.1200, L501.3620, L500.4050, L3100.5440, L100.0100, L501.6710, L7000.5300, L4500.0100 ####[facility] [address] [place], [place], [phone] dPT Conf. Ratio 1.13 Ratio Normal 0.00-1.34 [facility] Comment on above: Performed By: #### L 101.9900, L3300.1200, L501.3620, L500.4050, L3100.5440, L100.0100, L501.6710, L7000.5300, L4500.0100 ####[facility] [address] [place], [place], [phone] DRVVT 40.3 sec Normal 0.0-47.0 [facility] Comment on above: Performed By: #### L 101.9900, L3300.1200, L501.3620, L500.4050, L3100.5440, L100.0100, L501.6710, L7000.5300, L4500.0100 ####[facility] [address] [place], [place], [phone] Interpretation Comment: Normal . [facility] Comment on above: Result Comment: No l upus anticoagulant was detected. Performed By: #### L 101.9900, L3300.1200, L501.3620, L500.4050, L3100.5440, L100.0100, L501.6710, L7000.5300, L4500.0100 ####[facility] [address] [place], [place], [phone] THROMBIN TIME 15.6 sec Normal 0.0-23.0 [facility] Comment on above: Performed By: #### L 101.9900, L3300.1200, L501.3620, L500.4050, L3100.5440, L100.0100, L501.6710, L7000.5300, L4500.0100 ####[facility] [address] [facility] [place], [address] Lyme Screen W/Reflex WBon LYME SCREEN Ab Negative Normal Negative [facility] Comment on above: Result Comment: Lyme antibodies not detected. Reflex testing is not indicated. No laboratory evidence of infection with B. burgdorferi (Lyme disease). Negative results may occur in patients recently infected (less than or equal to 14 days) with B. burgdorferi. If recent infection is suspected, repeat testing on a new sample collected in 7 to 14 days is recommended. Performed at: [address] [id number] Regional Project Manager: Gold Granados MD, Phone: [phone] Performed at: [address] [id number] Regional Project Manager: Jorge Cadena PhD, Phone: [phone] Performed By: #### L 101.9900, L3300.1200, L501.3620, L500.4050, L3100.5440, L100.0100, L501.6710, L7000.5300, L4500.0100 ####[facility] [address] [place], [address] RON Comprehensive Panelon RON TABLE Comment Normal . [facility] Comment on above: Result Comment: Auto antibody Disease Association Condition Frequency --------- Antinuclear Antibody, SLE, mixed connective Direct (RON-D) tissue diseases --------- dsDNA SLE 40 - 60% --------- Chromatin Drug induced SLE 90% SLE 48 - 97% --------- SSA (Ro) SLE 25 - 35% Sjogren's Syndrome 40 - 70% Lupus 100% --------- SSB (La) SLE 10% Sjogren's Syndrome 30% --------- Sm (anti-Xiong) SLE 15 - 30% --------- PLATE KEEPER Mixed Connective Tissue Disease 95% (U1 nRNP, SLE 30 - 50% anti-ribonucleoprotein) Polymyositis and/or Dermatomyositis 20% --------- Scl-70 (antiDNA Scleroderma (diffuse) 20 - 35% topoisomerase) Crest 13% --------- Radha-1 Polymyositis and/or Dermatomyositis 20 - 40% --------- Centromere B Scleroderma - Crest variant 80% Performed at: - [facility] [id number] Regional Project Manager: Jorge Cadena PhD, Phone: [phone] Performed By: #### L 101.9900, L3300.1200, L501.3620, L500.4050, L3100.5440, L100.0100, L501.6710, L7000.5300, L4500.0100 ####[facility] [address] [place], [address] ANTI-CENT B AB <0.2 Normal 0.0-0.9 [facility] Comment on above: Performed By: #### L 101.9900, L3300.1200, L501.3620, L500.4050, L3100.5440, L100.0100, L501.6710, L7000.5300, L4500.0100 ####[facility] [address] [place], [address] ANTI-DNA (DS)AB <1 Normal 0-9 [facility] Comment on above: Result Comment: Nega tive <5 Equivocal 5 - 9 Positive >9 Performed By: #### L 101.9900, L3300.1200, L501.3620, L500.4050, L3100.5440, L100.0100, L501.6710, L7000.5300, L4500.0100 ####[facility] [address] [place], [place], [phone] ANTI-RADHA-1 <0.2 Normal 0.0-0.9 [facility] Comment on above: Performed By: #### L 101.9900, L3300.1200, L501.3620, L500.4050, L3100.5440, L100.0100, L501.6710, L7000.5300, L4500.0100 ####[facility] [address] [place], [place], [phone] ANTI-SS-A < 0.2 Normal 0.0-0.9 [facility] Comment on above: Performed By: #### L 101.9900, L3300.1200, L501.3620, L500.4050, L3100.5440, L100.0100, L501.6710, L7000.5300, L4500.0100 ####[facility] [address] [place], [address] Anti-SS-B < 0.2 Normal 0.0-0.9 [facility] Comment on above: Performed By: #### L 101.9900, L3300.1200, L501.3620, L500.4050, L3100.5440, L100.0100, L501.6710, L7000.5300, L4500.0100 ####[facility] [address] [place], [address] ANTICHROMATIN <0.2 Normal 0.0-0.9 [facility] Comment on above: Performed By: #### L 101.9900, L3300.1200, L501.3620, L500.4050, L3100.5440, L100.0100, L501.6710, L7000.5300, L4500.0100 ####[facility] [address] [place], [address] ANTISCLERODERM <0.2 Normal 0.0-0.9 [facility] Comment on above: Performed By: #### L 101.9900, L3300.1200, L501.3620, L500.4050, L3100.5440, L100.0100, L501.6710, L7000.5300, L4500.0100 ####[facility] [address] [place], [place], [phone] PLATE KEEPER Ab 0.2 AI Normal 0.0-0.9 [facility] Comment on above: Performed By: #### L 101.9900, L3300.1200, L501.3620, L500.4050, L3100.5440, L100.0100, L501.6710, L7000.5300, L4500.0100 ####[facility] [address] [place], [address] XIONG Ab <0.2 Normal 0.0-0.9 [facility] Comment on above: Performed By: #### L 101.9900, L3300.1200, L501.3620, L500.4050, L3100.5440, L100.0100, L501.6710, L7000.5300, L4500.0100 ####[facility] [address] [place], [place], [id number] H. PYLORI STOOL AGon 024 H PYLORI STL AG Negative Normal Negative [facility] Comment on above: Result Comment: Perf ormed at: [facility] [address] [id number] Regional Project Manager: Jorge Cadena PhD, Phone: [phone] Performed By: #### L 3100.1950 ####[facility] [address] [place], [address] CBC W/Diff, Automatedon 06-03 0-2023 Absolute Lymph 1.58 X10 3/uL Normal 0.83-4.51 [facility] Comment on above: Performed By: #### L 101.9900, L3300.1200, L501.3620, L500.4050, L3100.5440, L100.0100, L501.6710, L7000.5300, L4500.0100 ####[facility] [address] [place], [place], [phone] Absolute Neut 5.0 X10 3/uL Normal 2.0-7.7 [facility] Comment on above: Performed By: #### L 101.9900, L3300.1200, L501.3620, L500.4050, L3100.5440, L100.0100, L501.6710, L7000.5300, L4500.0100 ####[facility] [address] [place], [place], [phone] Basophils/100 WBC (Bld) 0.3 % Normal 0-1 [facility] Comment on above: Performed By: #### L 101.9900, L3300.1200, L501.3620, L500.4050, L3100.5440, L100.0100, L501.6710, L7000.5300, L4500.0100 ####[facility] [address] [place], [address] Eosinophils/100 WBC (Bld) 1.8 % Normal 0-5 [facility] Comment on above: Performed By: #### L 101.9900, L3300.1200, L501.3620, L500.4050, L3100.5440, L100.0100, L501.6710, L7000.5300, L4500.0100 ####[facility] [address] [place], [address] Erythrocyte distribution width (RBC) [Ratio] 15.2 % High 11.6-14.6 [facility] Comment on above: Performed By: #### L 101.9900, L3300.1200, L501.3620, L500.4050, L3100.5440, L100.0100, L501.6710, L7000.5300, L4500.0100 ####[facility] [address] [place], [address] Hematocrit (Bld) [Volume fraction] 38.9 % Normal 37-47 [facility] Comment on above: Performed By: #### L 101.9900, L3300.1200, L501.3620, L500.4050, L3100.5440, L100.0100, L501.6710, L7000.5300, L4500.0100 ####[facility] [address] [place], [address] Hemoglobin (Bld) [Mass/Vol] 12.4 g/dL Normal 12.0-15.0 [facility] Comment on above: Performed By: #### L 101.9900, L3300.1200, L501.3620, L500.4050, L3100.5440, L100.0100, L501.6710, L7000.5300, L4500.0100 ####[facility] [address] [place], [address] IG% 0.400 Normal 0.0-0.9 [facility] Comment on above: Result Comment: IG% - Immature Granulocytes (promyelocytes, myelocytes and metamyelocytes) > 1% indicates that a LEFT SHIFT is Present. Performed By: #### L 101.9900, L3300.1200, L501.3620, L500.4050, L3100.5440, L100.0100, L501.6710, L7000.5300, L4500.0100 ####[facility] [address] [place], [address] Lymphocytes/100 WBC (Bld) 21.9 % Normal 19-41 [facility] Comment on above: Performed By: #### L 101.9900, L3300.1200, L501.3620, L500.4050, L3100.5440, L100.0100, L501.6710, L7000.5300, L4500.0100 ####[facility] [address] [place], [address] MCH (RBC) [Entitic mass] 26.7 pg Low 27.0-32.0 [facility] Comment on above: Performed By: #### L 101.9900, L3300.1200, L501.3620, L500.4050, L3100.5440, L100.0100, L501.6710, L7000.5300, L4500.0100 ####[facility] [address] [place], [place], [address] MCHC (RBC) [Mass/Vol] 31.9 g/dL Low 32-36 [facility] Comment on above: Performed By: #### L 101.9900, L3300.1200, L501.3620, L500.4050, L3100.5440, L100.0100, L501.6710, L7000.5300, L4500.0100 ####[facility] [address] [place], [address] MCV (RBC) [Entitic vol] 83.7 fL Normal 81-99 [facility] Comment on above: Performed By: #### L 101.9900, L3300.1200, L501.3620, L500.4050, L3100.5440, L100.0100, L501.6710, L7000.5300, L4500.0100 ####[facility] [address] [place], [address] Monocytes/100 WBC (Bld) 6.2 % Normal 0-10 [facility] Comment on above: Performed By: #### L 101.9900, L3300.1200, L501.3620, L500.4050, L3100.5440, L100.0100, L501.6710, L7000.5300, L4500.0100 ####[facility] [address] [place], [address] Neutrophils/100 WBC (Bld) 69.4 % Normal 47-70 [facility] Comment on above: Performed By: #### L 101.9900, L3300.1200, L501.3620, L500.4050, L3100.5440, L100.0100, L501.6710, L7000.5300, L4500.0100 ####[facility] [address] [place], [address] Nucleated RBC (Bld) [#/Vol] 0 10*3/uL Normal 0-5 [facility] Comment on above: Performed By: #### L 101.9900, L3300.1200, L501.3620, L500.4050, L3100.5440, L100.0100, L501.6710, L7000.5300, L4500.0100 ####[facility] [address] [place], [address] Platelet mean volume (Bld) [Entitic vol] 10.2 fL Normal 6.2-12.0 [facility] Comment on above: Performed By: #### L 101.9900, L3300.1200, L501.3620, L500.4050, L3100.5440, L100.0100, L501.6710, L7000.5300, L4500.0100 ####[facility] [address] [place], [address] Platelets (Bld) [#/Vol] 374 10*3/uL Normal 150-450 [facility] Comment on above: Performed By: #### L 101.9900, L3300.1200, L501.3620, L500.4050, L3100.5440, L100.0100, L501.6710, L7000.5300, L4500.0100 ####[facility] [address] [place], [address] RBC (Bld) [#/Vol] 4.65 10*6/uL Normal 4.2-5.4 [facility] Comment on above: Performed By: #### L 101.9900, L3300.1200, L501.3620, L500.4050, L3100.5440, L100.0100, L501.6710, L7000.5300, L4500.0100 ####[facility] [address] [place], [address] RDW SD 45.7 fl High 35.1-43.9 [facility] Comment on above: Performed By: #### L 101.9900, L3300.1200, L501.3620, L500.4050, L3100.5440, L100.0100, L501.6710, L7000.5300, L4500.0100 ####[facility] [address] [place], [address] WBC (Bld) [#/Vol] 7.2 10*3/uL Normal 4.4-11.0 [facility] Comment on above: Performed By: #### L 101.9900, L3300.1200, L501.3620, L500.4050, L3100.5440, L100.0100, L501.6710, L7000.5300, L4500.0100 ####[facility] [address] [place], [place], [phone] CPK Total, Creatine Kinaseon 06-30-2024 CPK TOTAL 129 U/L Normal 26-192 [facility] Comment on above: Performed By: #### L 101.9900, L3300.1200, L501.3620, L500.4050, L3100.5440, L100.0100, L501.6710, L7000.5300, L4500.0100 ####[facility] [address] [place], [place], [phone] CRPon 06-30-2024 C-REACTIVE PROT 7.05 mg/L High 0.0-3.0 [facility] Comment on above: Result Comment: C-Re active Protein (CRP) provides useful information for the diagnosis, therapy and monitoring of inflammatory processes and associated diseases. For the evaluation of Relative Risk for Cardiovascular Disease, a High Sensitivity CRP (HSCRP) should be ordered. Performed By: #### L 101.9900, L3300.1200, L501.3620, L500.4050, L3100.5440, L100.0100, L501.6710, L7000.5300, L4500.0100 ####[facility] [address] [place], [place], [phone] Comprehensive Metabolic Prof ilon 06-30-2024 Albumin [Mass/Vol] 3.7 g/dL Normal 3.2-5.0 [facility] Comment on above: Performed By: #### L 101.9900, L3300.1200, L501.3620, L500.4050, L3100.5440, L100.0100, L501.6710, L7000.5300, L4500.0100 ####[facility] [address] [place], [place], [phone] Albumin/Globulin [Mass ratio] 0.9 {ratio} Normal 0.9-2.4 [facility] Comment on above: Performed By: #### L 101.9900, L3300.1200, L501.3620, L500.4050, L3100.5440, L100.0100, L501.6710, L7000.5300, L4500.0100 ####[facility] [address] [place], [place], [phone] ALK P 88 U/L Normal 45-117 [facility] Comment on above: Performed By: #### L 101.9900, L3300.1200, L501.3620, L500.4050, L3100.5440, L100.0100, L501.6710, L7000.5300, L4500.0100 ####[facility] [address] [place], [place], [phone] ALT [Catalytic activity/Vol] 41 U/L Normal 13-56 [facility] Comment on above: Performed By: #### L 101.9900, L3300.1200, L501.3620, L500.4050, L3100.5440, L100.0100, L501.6710, L7000.5300, L4500.0100 ####[facility] [address] [place], [place], [phone] AST [Catalytic activity/Vol] 16 U/L Normal 15-37 [facility] Comment on above: Performed By: #### L 101.9900, L3300.1200, L501.3620, L500.4050, L3100.5440, L100.0100, L501.6710, L7000.5300, L4500.0100 ####[facility] [address] [place], [place], [phone] Bilirubin [Mass/Vol] 0.50 mg/dL Normal 0.20-1.00 [facility] Comment on above: Result Comment: For patients on eltrombopag therapy, use of Dimension [place] TBIL is not recommended. Performed By: #### L 101.9900, L3300.1200, L501.3620, L500.4050, L3100.5440, L100.0100, L501.6710, L7000.5300, L4500.0100 ####[facility] [address] [place], [address] BUN/CRE 13.8 RATIO Normal 10-20 [facility] Comment on above: Performed By: #### L 101.9900, L3300.1200, L501.3620, L500.4050, L3100.5440, L100.0100, L501.6710, L7000.5300, L4500.0100 ####[facility] [address] [place], [address] CA,Total 9.2 mg/dL Normal 8.5-10.1 [facility] Comment on above: Performed By: #### L 101.9900, L3300.1200, L501.3620, L500.4050, L3100.5440, L100.0100, L501.6710, L7000.5300, L4500.0100 ####[facility] [address] [place], [address] Chloride [Moles/Vol] 108 mmol/L High 98-107 [facility] Comment on above: Performed By: #### L 101.9900, L3300.1200, L501.3620, L500.4050, L3100.5440, L100.0100, L501.6710, L7000.5300, L4500.0100 ####[facility] [address] [place], [address] CO2 [Moles/Vol] 22.0 mmol/L Normal 21.0-32.0 [facility] Comment on above: Performed By: #### L 101.9900, L3300.1200, L501.3620, L500.4050, L3100.5440, L100.0100, L501.6710, L7000.5300, L4500.0100 ####[facility] [address] [place], [address] Creatinine [Mass/Vol] 0.87 mg/dL Normal 0.55-1.02 [facility] Comment on above: Result Comment: The validity of the calculated GFR GFRAA in patients over 70 years has not been determined. Clinical correlation is essential. Performed By: #### L 101.9900, L3300.1200, L501.3620, L500.4050, L3100.5440, L100.0100, L501.6710, L7000.5300, L4500.0100 ####[facility] [address] [place], [phone]) EST GFR - AA 104 mL/min Normal >60 [facility] Comment on above: Result Comment: Afri can [place] GFR Calc Performed By: #### L 101.9900, L3300.1200, L501.3620, L500.4050, L3100.5440, L100.0100, L501.6710, L7000.5300, L4500.0100 ####[facility] [address] [place], [place], [phone](712) GAP 7 Normal 5-15 [facility] Comment on above: Performed By: #### L 101.9900, L3300.1200, L501.3620, L500.4050, L3100.5440, L100.0100, L501.6710, L7000.5300, L4500.0100 ####[facility] [address] [place], [address](708) GFR/1.73 sq M.predicted among non-blacks MDRD (S/P/Bld) [Vol rate/Area] 86 mL/min/{1.73_m2} Normal >60 [facility] Comment on above: Result Comment: Non- GFR Calc Performed By: #### L 101.9900, L3300.1200, L501.3620, L500.4050, L3100.5440, L100.0100, L501.6710, L7000.5300, L4500.0100 ####[facility] [address] [place], [address] Globulin (S) [Mass/Vol] 4.0 g/dL Normal 2.2-4.2 [facility] Comment on above: Performed By: #### L 101.9900, L3300.1200, L501.3620, L500.4050, L3100.5440, L100.0100, L501.6710, L7000.5300, L4500.0100 ####[facility] [address] [place], [address] Glucose [Mass/Vol] 93 mg/dL Normal 74-106 [facility] Comment on above: Performed By: #### L 101.9900, L3300.1200, L501.3620, L500.4050, L3100.5440, L100.0100, L501.6710, L7000.5300, L4500.0100 ####[facility] [address] [place], [address] Potassium [Moles/Vol] 4.0 mmol/L Normal 3.5-5.1 [facility] Comment on above: Performed By: #### L 101.9900, L3300.1200, L501.3620, L500.4050, L3100.5440, L100.0100, L501.6710, L7000.5300, L4500.0100 ####[facility] [address] [place], [address] Sodium [Moles/Vol] 137 mmol/L Normal 136-145 [facility] Comment on above: Performed By: #### L 101.9900, L3300.1200, L501.3620, L500.4050, L3100.5440, L100.0100, L501.6710, L7000.5300, L4500.0100 ####[facility] [address] [place], [address] T PROT 7.7 g/dL Normal 6.4-8.2 [facility] Comment on above: Performed By: #### L 101.9900, L3300.1200, L501.3620, L500.4050, L3100.5440, L100.0100, L501.6710, L7000.5300, L4500.0100 ####[facility] [address] [place], [address] Urea nitrogen [Mass/Vol] 12 mg/dL Normal 7-18 [facility] Comment on above: Performed By: #### L 101.9900, L3300.1200, L501.3620, L500.4050, L3100.5440, L100.0100, L501.6710, L7000.5300, L4500.0100 ####[facility] [address] [place], [address] Erythrocyte Sed Rateon 06-30 SED RATE 12 mm/hr Normal 0-30 [facility] Comment on above: Performed By: #### L 101.9900, L3300.1200, L501.3620, L500.4050, L3100.5440, L100.0100, L501.6710, L7000.5300, L4500.0100 ####[facility] [address] [place], [address] Internal Medicine Office Vis alpa 06-30-2024 Internal Medicine Office Visit [facility] [place], [place] [address] OFFICE VISIT Date of Service: 06/30/24 MR#: [id number] Acct: [id number] Name: MARTITA HERNANDEZ Rep #: [id number] : 2000 Provider: SREE trivedi Age/Sex: 24/F Location[place] [facility] Status: Signed Intake Vital Signs 06/25/24 08:54 06/29/24 08:07 06/30/24 09:54 Height 4 ft 8 in 4 ft 8 in 4 ft 8 in Weight: 168 lb 8 oz 166 lb 2 oz BMI 37.8 37.2 BP 110/66 116/70 Blood Pressure Location Lt brachial Lt brachial Position Sitting Sitting Respiration 17 16 Pulse 78 94 Pulse Source NIBP Monitor Temp 97.8 F 97.6 F L Temp Source Temporal Temporal Pulse Oximetry (%) 98 98 Oxygen Delivery Method room air room air Intake Visit Reasons: BODY PAIN ALL OVER Chief Complaint: body pain all over Production Expediter Required: No Accompanied by: Self Is patient in pain?: Yes (ALL OVER BODY ) Pain scale (1-10): 7 Allergies Penicillins Allergy (Verified 07/01/24 11:13) Rash fluoxetine (From Prozac) Adverse Reaction (Mild, Verified 07/01/24 11:13) Other Medications ???Medication ???Instructions ???Recorded ???Confirmed ???Type cholecalciferol (vitamin D3) 50 50 mcg PO DAILY 05/26/24 07/01/24 History mcg (2,000 unit) capsule magnesium oxide 500 mg capsule 500 mg PO DAILY 05/26/24 07/01/24 History buspirone 10 mg tablet 10 mg PO BID #60 tabs 06/16/24 07/01/24 Rx ferrous sulfate 325 mg (65 mg 325 mg PO DAILY 06/25/24 07/01/24 History iron) tablet ondansetron HCl 8 mg tablet 8 mg PO Q8H PRN nausea and 06/25/24 06/30/24 Rx vomiting #20 tabs theanine 200 mg capsule mg PO 06/25/24 06/30/24 History omeprazole 40 mg capsule,delayed 40 mg PO DAILY #30 caps 06/30/24 07/01/24 Rx release prednisone 10 mg tablets in a dose 10 mg PO DIRECTED #21 tabs 06/30/24 07/01/24 Rx pack cariprazine 1.5 mg capsule 1.5 mg PO DAILY 30 days #30 caps 07/01/24 Rx (Vraylar) hydroxyzine pamoate 25 mg capsule 25 mg PO TID #90 caps 07/01/24 Rx (Vistaril) PFSH Medical History Asthma Bipolar 2 disorder Generalized anxiety disorder PTSD (post-traumatic stress disorder) delivery delivered Depression Diabetes Migraine TBI (traumatic brain injury) Surgical History H/O section History of appendectomy Social History adopted: Yes number of children: 1 current occupational status: unemployed 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 current occupational exposures/hazards: No pets and animals: No history of recent travel: No sexually active: No other: female Smoking Status: Never smoker Tobacco: How many years used: 0 Electronic Cigarette Use: not used second hand exposure: Yes alcohol intake: former substance use type: does not use caffeine: Yes eating out: rarely or never during the past year weight has: decreased > 10 lbs frequency: 3-4 times per week duration: 30-45 minutes/day leti/christianity: baptist seatbelt use: always do you feel safe at home: Yes additional social history: -no contact - not HPI HPI Chief Complaint: body pain all over Details: MARTITA HERNANDEZ, is a 24 F who presents to the office today for multiple complaints including all over body pain. She reports she has been waking up in pain. She states this began approximately on 715 when she woke up with a swollen sensation, fatigue, body aches, headaches intermittent lightheadedness, decreased appetite, intermittent nausea. She reports she did have upper respiratory/cold symptoms. She presented to [facility] emergency department on 06/23/2024 and was tested for mononucleosis, COVID, and flu she reports everything was negative. She states she received Toradol and this did not help. She additionally was evaluated at the [facility] clinic on 725 with reports of similar symptoms COVID testing was again negative. She was prescribed Zofran for nausea. Today she states she remains sore all over, she feels her joints are achy, she feels she cannot move and she is sore to touch. She has tried NyQuil, and DayQuil with no relief. She reports nausea and vomiting has resolved but additional fatigue and overall body pain continues. She reports that she feels she cannot sleep enough. She denies fevers currently, cough, nasal congestion or rhinorrhea [place], sore throat, bloody stool, mucus in stool currently, current abdominal pain, dysuria. She does report she has been at her friend's house out in the [facility] a lot radial recently is concerned about Lyme's disease. No history of autoimmune disease. ROS Const Constitutional: Positive for body ache, chills, fatigue, headache(s), decreased energy, weakness and (more content not included)... Normal [facility] Calprotectin, Stoolon [address] 57 ug/g Normal 0-120 [facility] Comment on above: Result Comment: Conc entration Interpretation Follow-Up < 5 - 50 ug/g Normal None >50 -120 ug/g Borderline Re-evaluate in 4-6 weeks >120 ug/g Abnormal Repeat as clinically indicated Performed at: [facility] [id number] Regional Project Manager: Gold Granados MD, Phone: [phone] Performed By: #### M 1007900, L7000.0700 ####[facility] [address] [place], [place], [address] Stool Occult Blood iFOBon STOB Positive Normal [facility] Comment on above: Performed By: #### M 100.7900, L7000.0700 ####[facility] [address] [place], [place], [address] Urgent Care Visit Reporton 0 06-25-2024 Urgent Care Visit Report [facility] [address], [address] [place], [place] [address] OFFICE VISIT Date of Service: 06/25/24 MR#: [id number] Acct: [id number] Name: MARTITA HERNANDEZ Rep #: [id number] : 2000 Provider: NABEEL Mancilla Age/Sex: 24/F Location[place] [facility] Status: Signed Intake Vital Signs 06/05/24 13:05 06/25/24 08:54 Height 4 ft 8 in 4 ft 8 in Weight: 169 lb 168 lb 8 oz BMI 37.8 37.8 BP 124/74 H 110/66 Blood Pressure Location Lt brachial Lt brachial Position Sitting Sitting Respiration 16 17 Pulse 83 78 Pulse Source Monitor NIBP Temp 97.6 F L 97.8 F Temp Source Temporal Temporal Pulse Oximetry (%) 98 98 Oxygen Delivery Method room air room air Intake Visit Reasons: BODY ACHES, HEADACHE, FATIGUE Chief Complaint: DRAKE, BA, chills, fatigue, joint pain Production Expediter Required: No Is patient in pain?: Yes Allergies Penicillins Allergy (Verified 06/25/24 08:55) Rash fluoxetine (From Prozac) Adverse Reaction (Mild, Verified 06/25/24 08:55) Other Medications ???Medication ???Instructions ???Recorded ???Confirmed ???Type cholecalciferol (vitamin D3) 50 50 mcg PO DAILY 05/26/24 06/25/24 History mcg (2,000 unit) capsule magnesium oxide 500 mg capsule 500 mg PO DAILY 05/26/24 06/25/24 History hydroxyzine HCl 50 mg tablet 50 mg PO Q8H PRN anxiety 30 days 06/05/24 06/25/24 Rx #60 tabs buspirone 10 mg tablet 10 mg PO BID #60 tabs 06/16/24 Rx ferrous sulfate 325 mg (65 mg 325 mg PO DAILY 06/25/24 06/25/24 History iron) tablet ondansetron HCl 8 mg tablet 8 mg PO Q8H PRN nausea and 06/25/24 06/25/24 Rx vomiting #20 tabs theanine 200 mg capsule mg PO 06/25/24 06/25/24 History Is last menstrual period known: No Post menopausal: No Patient : No Have you fallen in the past year?: No Nurse's Note: DRAKE, BA, chills, fatigue, joint pain x 4 days. seen in [facility] 2 days ago for same. tested negative for mono, flu, and covid at that time. 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 current occupational exposures/hazards: No pets and animals: No history of recent travel: No sexually active: No other: female Smoking Status: Never smoker Tobacco: How many years used: 0 Electronic Cigarette Use: not used second hand exposure: Yes alcohol intake: former substance use type: does not use caffeine: Yes eating out: rarely or never during the past year weight has: decreased > 10 lbs frequency: 3-4 times per week duration: 30-45 minutes/day leti/christianity: baptist seatbelt use: always do you feel safe at home: Yes additional social history: -no contact - not HPI HPI Chief Complaint: DRAKE, BA, chills, fatigue, joint pain Details: MARTITA HERNANDEZ, is a 24 F who presents to the office today for complaint of headache, body aches, fatigue and joint pain for the past 4 days. Patient states this has been intermittent for the past several weeks and does have a history of this type of issue in the past. She is being followed by her primary care for issues of fatigue, insulin resistance and blood in her stool. Patient states that her biggest issue currently is nausea along with bodyaches. She was seen at an outside ED 2 days ago and was given Toradol for her body aches however she states that this did not help at all. She denies fever however has had chills. No vomiting or diarrhea. No loss of taste or smell. No other associated symptoms or alleviating/aggravatin g factors. ROS Const Constitutional: No other (6 system ROS completed with pertinent findings in the HPI otherwise normal.) Exam Const General: cooperative and healthy appearing [facility] Head: normocephalic and atraumatic Ears: hearing grossly normal bilaterally Nose: external nose normal Face and sinus: normal facial exam and face symmetric Mouth: oral mucosae normal Throat: posterior oropharynx normal Resp Effort Inspection: normal respiratory effort Auscultation: Bilateral: Clear to Auscultation Cardio Rate: regular rate Rhythm: regular rhythm GI Palpation: soft and no hepatosplenomegaly Skin General: no rashes or lesions noted Neuro General: patient alert and CN's II-XI intact bilaterally Psych Appearance: grossly normal Mental Status: mental status grossly normal (more content not included)... Normal [facility] .Auto Diffon 06-23-2024 Basophil, Absolute 0.0 10 3/mcL Normal 0.0-0.2 [facility] ([place] Comment on above: Performed By: #### A LADY, CBC, MONO, MDW, GFR, ADIFF, BMP #### [address] [address] Basophils/100 WBC (Bld) 0.4 % Normal 0.0-2.5 [facility] ([place]) Comment on above: Performed By: #### A LADY, CBC, MONO, MDW, GFR, ADIFF, BMP #### [address] [address] Eosinophil, Absolute 0.1 10 3/mcL [facility] 0[facility]0-0.4 [facility] Comment on above: Performed By: #### A LADY, CBC, MONO, MDW, GFR, ADIFF, BMP #### [address] [address] Eosinophils/100 WBC (Bld) 1.4 % Normal 0.0-7.0 [facility] ([place]) Comment on above: Performed By: #### A LADY, CBC, MONO, MDW, GFR, ADIFF, BMP #### [address] [address] Lymphocyte, Absolute 1.7 10 3/mcL Normal 0.8-3.9 [facility] Comment on above: Performed By: #### A LADY, CBC, MONO, MDW, GFR, ADIFF, BMP #### [address] [address] Lymphocytes/100 WBC (Bld) 21.0 % Normal 10.0-50.0 [facility] ([place]) Comment on above: Performed By: #### A LADY, CBC, MONO, MDW, GFR, ADIFF, BMP #### [address] [address] Monocyte, Absolute 0.5 10 3/mcL Normal 0.2-1.0 [facility] ([place] Comment on above: Performed By: #### A LADY, CBC, MONO, MDW, GFR, ADIFF, BMP #### [address] [address] Monocytes/100 WBC (Bld) 5.8 % Normal 1.7-13.0 [facility] ([place]) Comment on above: Performed By: #### A LADY, CBC, MONO, MDW, GFR, ADIFF, BMP #### [address] [address] Neutrophils/100 WBC (Bld) 71.4 % Normal 37.0-80.0 [facility] ([place]) Comment on above: Performed By: #### A LADY, CBC, MONO, MDW, GFR, ADIFF, BMP #### [address] [address] .GFRon 06-23-2024 GFR 120 ml/min/1.73sqm Normal [facility] ([place]) Comment on above: Result Comment: GFR Population mean for , Non- Americans Ages 20-29 = 116 mL/min/1.73 sq.m. Ages 30-39 = 107 mL/min/1.73 sq.m. Ages 40-49 = 99 mL/min/1.73 sq.m. Ages 50-59 = 93 mL/min/1.73 sq.m. Ages 60-69 = 85 mL/min/1.73 sq.m. Ages 70+ = 75 mL/min/1.73 sq.m. Chronic Kidney Disease: Less than 60 mL/min/1.73 square meters End Stage Renal Disease: Less than 15 mL/min/1.73 square meters Performed By: #### A LADY, CBC, MONO, MDW, GFR, ADIFF, BMP #### [address] [address] GFR Non- 99 ml/min/1.73sqm Normal [facility] ([place]) Comment on above: Result Comment: GFR Population mean for , Non- Americans Ages 20-29 = 116 mL/min/1.73 sq.m. Ages 30-39 = 107 mL/min/1.73 sq.m. Ages 40-49 = 99 mL/min/1.73 sq.m. Ages 50-59 = 93 mL/min/1.73 sq.m. Ages 60-69 = 85 mL/min/1.73 sq.m. Ages 70+ = 75 mL/min/1.73 sq.m. Chronic Kidney Disease: Less than 60 mL/min/1.73 square meters End Stage Renal Disease: Less than 15 mL/min/1.73 square meters Performed By: #### A LADY, CBC, MONO, MDW, GFR, ADIFF, BMP #### [address] [address] .MDWon 06-23-2024 Monocyte Distribution Width 17.19 Normal 0.00-20.00 [facility] ([place]) Comment on above: Result Comment: For ED adult patients suspected of sepsis, MDW<=20.0 does not rule out sepsis or risk of sepsis Performed By: #### A LADY, CBC, MONO, MDW, GFR, ADIFF, BMP #### [address] [address] .NEUABSon 06-23-2024 Neutrophil, Absolute 5.8 10 3/mcL Normal 2.9-6.2 [facility] Comment on above: Performed By: #### A LADY, CBC, MONO, MDW, GFR, ADIFF, BMP #### [address] [address] BMPon 06-23-2024 BUN/Creatinine Ratio 19 ratio Normal 7-27 [facility] ([place] Comment on above: Performed By: #### A LADY, CBC, MONO, MDW, GFR, ADIFF, BMP #### [address] [address] Calcium [Mass/Vol] 9.5 mg/dL Normal 8.4-10.2 [facility] ([place] Comment on above: Performed By: #### A LADY, CBC, MONO, MDW, GFR, ADIFF, BMP #### [address] [address] Chloride [Moles/Vol] 107 mmol/L Normal 98-107 [facility] ([place]) Comment on above: Performed By: #### A LADY, CBC, MONO, MDW, GFR, ADIFF, BMP #### [address] [address] CO2 [Moles/Vol] 25 mmol/L Normal 22-29 [facility] ([place]) Comment on above: Performed By: #### A LADY, CBC, MONO, MDW, GFR, ADIFF, BMP #### [address] [address] Creatinine [Mass/Vol] 0.73 mg/dL Normal 0.55-1.02 [facility] ([place]) Comment on above: Performed By: #### A LADY, CBC, MONO, MDW, GFR, ADIFF, BMP #### [address] [address] Electrolyte Balance 8.0 mEq/L Normal 4.0-15.0 [facility] ([place] Comment on above: Performed By: #### A LADY, CBC, MONO, MDW, GFR, ADIFF, BMP #### [address] [address] Glucose [Mass/Vol] 86 mg/dL Normal 70-105 [facility] ([place] Comment on above: Performed By: #### A LADY, CBC, MONO, MDW, GFR, ADIFF, BMP #### [address] [address] Potassium [Moles/Vol] 4.4 mmol/L Normal 3.5-5.1 [facility] ([place]) Comment on above: Performed By: #### A LADY, CBC, MONO, MDW, GFR, ADIFF, BMP #### [address] [address] Sodium [Moles/Vol] 140 mmol/L Normal 136-145 [facility] ([place] Comment on above: Performed By: #### A LADY, CBC, MONO, MDW, GFR, ADIFF, BMP #### [address] [address] Urea nitrogen [Mass/Vol] 14 mg/dL Normal 7-18 [facility] ([place]) Comment on above: Performed By: #### A LADY, CBC, MONO, MDW, GFR, ADIFF, BMP #### [place] [address] CBCon 06-23-2024 Erythrocyte distribution width (RBC) [Ratio] 15.1 % High 11.5-14.5 [facility] ([place]) Comment on above: Performed By: #### A LADY, CBC, MONO, MDW, GFR, ADIFF, BMP #### [place] [address] Hematocrit (Bld) [Volume fraction] 38.1 % Normal 37.0-47.0 [facility] ([place] Comment on above: Performed By: #### A LADY, CBC, MONO, MDW, GFR, ADIFF, BMP #### [place] [address] Hgb 12.7 G/dL Normal 12.0-16.0 [facility] ([place] Comment on above: Performed By: #### A LADY, CBC, MONO, MDW, GFR, ADIFF, BMP #### [place] [address] MCH (RBC) [Entitic mass] 27.9 pg Normal 27.0-31.2 [facility] ([place] Comment on above: Performed By: #### A LADY, CBC, MONO, MDW, GFR, ADIFF, BMP #### [place] [address] MCHC 33.3 G/dL Normal 33.0-37.0 [facility] ([place] Comment on above: Performed By: #### A LADY, CBC, MONO, MDW, GFR, ADIFF, BMP #### [place] [address] MCV (RBC) [Entitic vol] 83.7 fL Normal 80.0-94.0 [facility] ([place] Comment on above: Performed By: #### A LADY, CBC, MONO, MDW, GFR, ADIFF, BMP #### [address] [address] Platelet 393 10 3/mcL Normal 130-400 [facility] ([place] Comment on above: Performed By: #### A LADY, CBC, MONO, MDW, GFR, ADIFF, BMP #### [place] [address] Platelet mean volume (Bld) [Entitic vol] 7.5 fL Normal 7.4-10.4 [facility] ([place]) Comment on above: Performed By: #### A LADY, CBC, MONO, MDW, GFR, ADIFF, BMP #### [address] [address] RBC 4.55 10 6/mcL Normal 4.20-5.40 [facility] ([place] Comment on above: Performed By: #### A LADY, CBC, MONO, MDW, GFR, ADIFF, BMP #### [place] [address] WBC 8.2 10 3/mcL Normal 4.6-10.8 [facility] ([place] Comment on above: Performed By: #### A LADY, CBC, MONO, MDW, GFR, ADIFF, BMP #### [address] [address] CVFLURVon 06-23-2024 FLU A PCR Negative Normal Negative [facility] ([place] Comment on above: Performed By: #### A LADY, CBC, MONO, MDW, GFR, ADIFF, BMP #### [place] [address] FLU B PCR Negative Normal Negative [facility] ([place] Comment on above: Performed By: #### A LADY, CBC, MONO, MDW, GFR, ADIFF, BMP #### [place] [address] RSV PCR Negative Normal Negative [facility] ([place] Comment on above: Performed By: #### A LADY, CBC, MONO, KELSEA, GFR, VLADISLAV, JAYLYN #### [place] [address] [address] SARS-CoV-2 (COVID-19) RNA HUGH+probe Ql (Unsp spec) Negative Normal Negative [facility] ([place]) Comment on above: Result Comment: Resu lts from the Xpert Xpress CoV-2/Flu/RSV plus test should be correlated with the clinical history, epidemiological data, and other data available to the clinical evaluating the patient. Performance of the Xpert Xpress CoV-2/Flu/RSV plus test has only been established in nasopharyngeal swab specimen. Erroneous test results might occur from improper specimen collection, failure to follow the recommended sample collection, handling and storage procedures, technical error, or sample mix-up. False negative results may occur if a virus is present at a level below the analytical limit of detection. Viral nucleic acid may persist in vivo, independent of virus viability. Detection of analyte target(s) does not imply that the corresponding virus(es) are infectious or are the causative agents for clinical symptoms. Recent patient exposure to FluMist or other live attenuated influenza vaccines may cause inaccurate positive results. Performed By: #### A LADY, CBC, MONO, KELSEA, GFR, VLADISLAV, JAYLYN #### [place] [address] [place], [place] [address] LABORATORYOrdered By: Matthew Schmidt on 06-23-2024 Appearance (U) Clear (06/23/24 2:33 PM) Normal Clear AO Auto Urine SS Bilirubin Ql (U) Negative (06/23/24 2:33 PM) Normal Negative AO Auto Urine SS Color (U) Yellow (06/23/24 2:33 PM) Normal AO Auto Urine SS Glucose Test strip (U) [Mass/Vol] Negative Normal Negative AO Auto Urine SS HCG ( test) Ql Negative (06/23/24 2:33 PM) Normal AO Manual Urine SS Hemoglobin Auto test strip (U) [Mass/Vol] Negative (06/23/24 2:33 PM) Normal Negative AO Auto Urine SS Heterophile Ab LA Ql (S) Negative (06/23/24 2:33 PM) Normal Negative AO Rapid Testing SS Ketones Ql (U) Negative Normal Negative AO Auto Urine SS test (u) int Not detected Invalid Interpretation Code AO Manual Urine SS UA Leuk Est Negative (06/23/24 2:33 PM) Normal Negative AO Auto Urine SS UA Nitrite Negative (06/23/24 2:33 PM) Normal Negative AO Auto Urine SS UA pH 6.0 (06/23/24 2:33 PM) Normal 5.0 - 8.0 AO Auto Urine SS UA Protein Negative Normal Negative AO Auto Urine SS UA Spec Grav >=1.030 *ABN* (06/23/24 2:33 PM) Invalid Interpretation Code 1.015-1.025 AO Auto Urine SS UA Specimen Type Clean Catch (06/23/24 2:33 PM) Normal AO Auto Urine SS UA Urobilinogen 0.2 E.U./dL Normal 0.2-1.0 AO Auto Urine SS LABORATORYOrdered By: SYSTEM SYSTEM on 06-23-2024 Basophil, Absolute 0.0 103/mcL Normal 0.0 - 0.2 10^3/mcL AO Workflow SS Basophils/100 WBC (Bld) 0.4 % Normal 0.0 - 2.5 % AO Workflow SS Calcium [Mass/Vol] 9.5 mg/dL Normal 8.4 - 10. 2 mg/dL AO ADM SS Chloride [Moles/Vol] 107 mmol/L Normal 98 - 10 7 mmol/L AO ADM SS CO2 [Moles/Vol] 25 mmol/L Normal 22 - 29 mmol/L AO ADM SS Creatinine [Mass/Vol] 0.73 mg/dL Normal 0.55 - 1.02 mg/dL AO ADM SS Electrolyte Balance 8.0 mEq/L Normal 4.0 - 15 .0 mEq/L AO ADM SS Eosinophil, Absolute 0.1 103/mcL Normal 0.0 - 0 .4 10^3/mcL AO Workflow SS Eosinophils/100 WBC (Bld) 1.4 % Normal 0.0 - 7.0 % AO Workflow SS Erythrocyte distribution width (RBC) [Ratio] 15.1 % High 11.5 - 14.5 % AO Workflow SS GFR/1.73 sq M.predicted among blacks MDRD (S/P/Bld) [Vol rate/Area] 120 ml/min/1.73sqm Invalid Interpretation Code AO Chemistry S Comment on above: Interpretive Data: GFR Population mean for , Non- Americans Ages 20-29 = 116 mL/min/1.73 sq.m. Ages 30-39 = 107 mL/min/1.73 sq.m. Ages 40-49 = 99 mL/min/1.73 sq.m. Ages 50-59 = 93 mL/min/1.73 sq.m. Ages 60-69 = 85 mL/min/1.73 sq.m. Ages 70+ = 75 mL/min/1.73 sq.m. Chronic Kidney Disease: Less than 60 mL/min/1.73 square meters End Stage Renal Disease: Less than 15 mL/min/1.73 square meters GFR/1.73 sq M.predicted among non-blacks MDRD (S/P/Bld) [Vol rate/Area] 99 ml/min/1.73sqm Invalid Interpretation Code AO Chemistry S Comment on above: Interpretive Data: GFR Population mean for , Non- Americans Ages 20-29 = 116 mL/min/1.73 sq.m. Ages 30-39 = 107 mL/min/1.73 sq.m. Ages 40-49 = 99 mL/min/1.73 sq.m. Ages 50-59 = 93 mL/min/1.73 sq.m. Ages 60-69 = 85 mL/min/1.73 sq.m. Ages 70+ = 75 mL/min/1.73 sq.m. Chronic Kidney Disease: Less than 60 mL/min/1.73 square meters End Stage Renal Disease: Less than 15 mL/min/1.73 square meters Glucose [Mass/Vol] 86 mg/dL Normal 70 - 105 mg/dL AO ADM SS Hematocrit (Bld) [Volume fraction] 38.1 % Normal 37.0 - 47.0 % AO Workflow SS Hemoglobin (Bld) [Mass/Vol] 12.7 G/dL Normal 12.0 - 16.0 G/dL AO Workflow SS Lymphocyte, Absolute 1.7 103/mcL Normal 0.8 - 3 .9 10^3/mcL AO Workflow SS Lymphocytes/100 WBC (Bld) 21.0 % Normal 10.0 - 50.0 % AO Workflow SS MCH (RBC) [Entitic mass] 27.9 pg Normal 27.0 - 31.2 pg AO Workflow SS MCHC 33.3 G/dL Normal 33.0 - 37.0 G/dL AO Workflow SS MCV (RBC) [Entitic vol] 83.7 fL Normal 80.0 - 94.0 fL AO Workflow SS Monocyte distribution width Auto (Bld) [Entitic vol] 17.19 1 Normal 0.00 - 20.00 AO Workflow SS Comment on above: Result Comment: For ED adult patients suspected of sepsis, MDW<=20.0 does not rule out sepsis or risk of sepsis Monocyte, Absolute 0.5 103/mcL Normal 0.2 - 1.0 10^3/mcL AO Workflow SS Monocytes/100 WBC (Bld) 5.8 % Normal 1.7 - 13.0 % AO Workflow SS Neutrophil, Absolute 5.8 103/mcL Normal 2.9 - 6 .2 10^3/mcL AO Workflow SS Neutrophils/100 WBC (Bld) 71.4 % Normal 37.0 - 80.0 % AO Workflow SS Platelet mean volume (Bld) [Entitic vol] 7.5 fL Normal 7.4 - 10.4 fL AO Workflow SS Platelets (Bld) [#/Vol] 393 103/mcL Normal 130 - 400 10^3/mcL AO Workflow SS Potassium [Moles/Vol] 4.4 mmol/L Normal 3.5 - 5.1 mmol/L AO ADM SS RBC (Bld) [#/Vol] 4.55 106/mcL Normal 4.20 - 5.4 0 10^6/mcL AO Workflow SS Sodium [Moles/Vol] 140 mmol/L Normal 136 - 145 mmol/L AO ADM SS Urea nitrogen [Mass/Vol] 14 mg/dL Normal 7 - 18 mg/dL AO ADM SS Urea nitrogen/Creatinine [Mass ratio] 19 ratio Normal 7 - 27 ratio AO ADM SS WBC (Bld) [#/Vol] 8.2 103/mcL Normal 4.6 - 10.8 10^3/mcL AO Workflow SS LABORATORYOrdered By: Myron Cramer on 06-23-2024 FLUAV RNA HUGH+probe Ql (Resp) Negative (06/23/24 2:33 PM) Normal Negative AO Auto Urine SS FLUBV RNA HUGH+probe Ql (Resp) Negative (06/23/24 2:33 PM) Normal Negative AO Auto Urine SS RSV RNA HUGH+probe Ql (Resp) Negative (06/23/24 2:33 PM) Normal Negative AO Auto Urine SS SARS-CoV-2 (COVID-19) RNA HUGH+probe Ql (Resp) Negative 2 (06/23/24 2:33 PM) Normal Negative AO Auto Urine SS Comment on above: Interpretive Data: R esults from the Xpert Xpress CoV-2/Flu/RSV plus test should be correlated with the clinical history, epidemiological data, and other data available to the clinical evaluating the patient. Performance of the Xpert Xpress CoV-2/Flu/RSV plus test has only been established in nasopharyngeal swab specimen. Erroneous test results might occur from improper specimen collection, failure to follow the recommended sample collection, handling and storage procedures, technical error, or sample mix-up. False negative results may occur if a virus is present at a level below the analytical limit of detection. Viral nucleic acid may persist in vivo, independent of virus viability. Detection of analyte target(s) does not imply that the corresponding virus(es) are infectious or are the causative agents for clinical symptoms. Recent patient exposure to FluMist or other live attenuated influenza vaccines may cause inaccurate positive results. MONOon 06-23-2024 Mononucleosis Negative Normal Negative [facility] ([place]) Comment on above: Performed By: #### A LADY, CBC, MONO, MDW, GFR, ADIFF, BMP #### [address] [address] PREGUon 06-23-2024 HCG ( test) Ql (U) Negative Normal [facility] ([place]) Comment on above: Performed By: #### A LADY, CBC, MONO, MDW, GFR, ADIFF, BMP #### [address] [address] test (u) int Not detected Invalid Interpretation Code [facility] ([place] Comment on above: Performed By: #### A LADY, CBC, MONO, MDW, GFR, ADIFF, BMP #### [address] [address] UAon 06-23-2024 Color (U) Yellow Normal [facility] ([place]) Comment on above: Performed By: #### A LADY, CBC, MONO, MDW, GFR, ADIFF, BMP #### [address] [address] Glucose (U) [Mass/Vol] Negative Normal [facility] Comment on above: Performed By: #### A LADY, CBC, MONO, MDW, GFR, ADIFF, BMP #### [address] [address] Ketones Ql (U) Negative Normal Negative [facility] ([place] Comment on above: Performed By: #### A LADY, CBC, MONO, MDW, GFR, ADIFF, BMP #### [address] [address] UA Appear Clear Normal Clear [facility] ([place] Comment on above: Performed By: #### A LADY, CBC, MONO, MDW, GFR, ADIFF, BMP #### [address] [address] UA Blood Negative Normal Negative [facility] ([place] Comment on above: Performed By: #### A LADY, CBC, MONO, MDW, GFR, ADIFF, BMP #### [address] [address] UA Leuk Est Negative Normal Negative [facility] ([place]) Comment on above: Performed By: #### A LADY, CBC, MONO, MDW, GFR, ADIFF, BMP #### [address] [address] UA Nitrite Negative Normal Negative [facility] ([place] Comment on above: Performed By: #### A LADY, CBC, MONO, MDW, GFR, ADIFF, BMP #### [address] [address] UA pH 6.0 Normal 5.0 - 8.0 [facility] ([place]) Comment on above: Performed By: #### A LADY, CBC, MONO, MDW, GFR, ADIFF, BMP #### [address] [address] UA Protein Negative Normal Negative [facility] ([place] Comment on above: Performed By: #### A LADY, CBC, MONO, MDW, GFR, ADIFF, BMP #### [place] [id number] UA Spec Grav >=1.030 Abnormal 1.015-1.025 [facility] ([place] Comment on above: Performed By: #### A LADY, CBC, MONO, MDW, GFR, ADIFF, BMP #### [place] [id number] [place], [place] [address] UA Specimen Type Clean Catch Normal [facility] ([place]) Comment on above: Performed By: #### A LADY, CBC, MONO, MDW, GFR, ADIFF, BMP #### [place] [id number] [place], [place] [address] UA Urobilinogen 0.2 E.U./dL Normal 0.2-1.0 [facility] ([place]) Comment on above: Performed By: #### A LADY, CBC, MONO, MDW, GFR, ADIFF, BMP #### [place] [id number] [place], [place] [address] Urobilinogen (U) [Mass/Vol] Negative Normal Negative [facility] ([place]) Comment on above: Performed By: #### A LADY, CBC, MONO, MDW, GFR, ADIFF, BMP #### [address] [address] CNOVon 06-11-2024 CNOV Office Visit (UCWSTR ) MARTITA HERNANDEZ ([id number]) 01 F T Date Time Provider Department 06/11/24 12:00 PM DAVID CARREON [facility] During your visit today, we recorded the following information about you: Temperature Pulse Respiration Blood pressure 98.2 degrees 103/minute 16/minute 116/70 Weight 76.2 kg David Carreon APRN.ARMAMENT MECHANIC 06/11/2024 1:07 PM Signed Subjective HPI Nontoxic-appearing female patient presents to urgent care chief complaint right shoulder pain. Duration of symptom 1 day. Associated symptoms right shoulder pain. Patient states radiates up into her neck and down her arm. Rates pain 6-7 out of 10. Pain is exacerbated by movement improved by rest. Does have some tingling sensation in her fingers. This is episodic. It is reproducible with movements. No known injuries. OTC medications has helped. Did get a massage this did help. Denies any fever body aches chills productive cough chest pain shortness of breath pleuritic pain hemoptysis nausea vomiting abdominal pain change in bowel or bladder habits. Past medical history prescription medication use and allergies reviewed. Is not . .Patient presents with: Shoulder Injury: Right shoulder down arm pain and tingling x1 day PAST MEDICAL HISTORY Diagnosis Date Asthma Concussion [...] Prozac [Fluoxetine Hcl], and Seasonal Allergies MEDICATIONS lurasidone (LATUDA) 80 mg tablet propranolol (INDERAL) [...] tablet (Patient not taking: Reported on 12/17/2023) topiramate (TOPAMAX) 50 mg tablet lithium carbonate (ESKALITH) 300 mg capsule Take 300 mg by mouth three times daily with meals. escitalopram oxalate (LEXAPRO) 10 mg tablet Take [...] a WEEK. predniSONE (DELTASONE) 20 mg tablet Brompheniramine-Pseudo eph-DM (BROMFED DM) 2-30-10 mg/5 mL syrup Take [...] 4 hours as needed. + Nebulizer Supplies Nebuliz (more content not included)... Normal [facility] XR SHLDR >/=3V AP/TIMMY AP/OTH R RTon 06-11-2024 XR SHLDR >/=3V AP/TIMMY AP/OTHR RT * * *Final Report* * * DATE OF EXAM: Jun 11 2024 12:34PM WOX [id number] - XR SHLDR >/=3V AP/TIMMY AP/OTHR RT / PROCEDURE REASON: Acute pain of right shoulder * * * * Physician Interpretation * * * * EXAM TITLE: XR SHLDR >/=3V AP/TIMMY AP/OTHR RT EXAM DATE/TIME: 06/11/2024 12:34 PM COMPARISON: None. CLINICAL INDICATION/HISTORY: Acute shoulder pain. TECHNIQUE: AP, true AP and Y views of the right shoulder are presented FINDINGS: No acute fractures or subluxations are noted. The acromioclavicular and glenohumeral joint spaces are well preserved. The acromiohumeral interval is maintained. The mineralization of the bones is normal. There is no significant soft tissue swelling. IMPRESSION: Unremarkable right shoulder x-ray. Rough Planer Tender: PSCPhyllis Transcribe Date/Time: Jun 11 2024 12:53P Dictated by : MAGDA DENNIS MD This examination was interpreted and the report reviewed and electronically signed by: MAGDA DENNIS MD on Jun 11 2024 12:54PM EST [id number] Normal [facility] XR Shoulder - right 3 Viewso n 06-11-2024 IMPRESSION: Unremarkable right shoulder x-ray. Rough Planer Tender: STEPHANIE Transcribe Date/Time: Jun 11 2024 12:53P Dictated by : MAGDA DENNIS MD This examination was interpreted and the report reviewed and electronically signed by: MAGDA DENNIS MD on Jun 11 2024 12:54PM [facility] DIV[facility] * * *Final Report* * * DATE OF EXAM: Jun 11 2024 12:34PM WOX 5253 - XR SHLDR >/=3V AP/TIMMY AP/OTHR RT / PROCEDURE REASON: Acute pain of right shoulder * * * * Physician Interpretation * * * * EXAM TITLE: XR SHLDR >/=3V AP/TIMMY AP/OTHR RT EXAM DATE/TIME: 06/11/2024 12:34 PM COMPARISON: None. CLINICAL INDICATION/HISTORY: Acute shoulder pain. TECHNIQUE: AP, true AP and Y views of the right shoulder are presented FINDINGS: No acute fractures or subluxations are noted. The acromioclavicular and glenohumeral joint spaces are well preserved. The acromiohumeral interval is maintained. The mineralization of the bones is normal. There is no significant soft tissue swelling. DIVISION OF RADIOLOGY Provider, [facility] - 06/11/2024 * * *Final Report* * * DATE OF EXAM: Jun 11 2024 12:34PM WOX 5253 - XR SHLDR >/=3V AP/TIMMY AP/OTHR RT / PROCEDURE REASON: Acute pain of right shoulder * * * * Physician Interpretation * * * * EXAM TITLE: XR SHLDR >/=3V AP/TIMMY AP/OTHR RT EXAM DATE/TIME: 06/11/2024 12:34 PM COMPARISON: None. CLINICAL INDICATION/HISTORY: Acute shoulder pain. TECHNIQUE: AP, true AP and Y views of the right shoulder are presented FINDINGS: No acute fractures or subluxations are noted. The acromioclavicular and glenohumeral joint spaces are well preserved. The acromiohumeral interval is maintained. The mineralization of the bones is normal. There is no significant soft tissue swelling. IMPRESSION IMPRESSION: Unremarkable right shoulder x-ray. 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 Pt calling to see if can schedule earlier appointment. Pt was seen at [facility] ED on 05/09/24 for pelvic pain, states US completed and notes IUD in incorrect position. Pt states I have an appointment next Saturday at a different office, but I am wondering if I can have someone take the IUD out sooner. R:Pt advised prevsiouly new patient appointment scheduled 07/01 at this office. Recommended to return to office that placed IUD. Pt advised can return to ED for possible removal. Pt verbalizes understanding. Patient instructed to call back with worsening symptoms, concerns or questions. Reason for Disposition SEVERE pelvic pain and present > 1 hour Protocols used: Pelvic Pain - [id number] Normal [facility] CTPCRon 05-10-2024 C. trachomatis Interp Normal See CT Interp N [facility] ([place] Comment on above: Result Comment: C. t rachomatis DNA not detected. Specimen is presumptive negative for C. trachomatis. A negative result does not preclude C. trachomatis infection because results depend on adequate specimen collection, absence of inhibitors, and sufficient DNA to be detected. See CT Interp N Performed By: #### A LADY, CBC, MONO, MDW, GFR, ADIFF, BMP #### [place] [address] [place], [place] [address] C.trachomatis PCR Negative Normal Negative [facility] ([place] Comment on above: Result Comment: Tenorio sport tube received with two swabs. Review collection procedure. Inappropriate collection may cause aberrant results. Transport tube received with two swabs. Review collection procedure. Inappropriate collection may cause aberrant results. Molecular (PCR) assay performed on the Ang[employer] 4800 system. Performed By: #### A LADY, CBC, MONO, MDW, GFR, ADIFF, BMP #### [place] [address] [place], [place] [address] Chlam Source Cervix Normal [facility] ([place] Comment on above: Performed By: #### A LADY, CBC, MONO, MDW, GFR, ADIFF, BMP #### [address] [address] [id number] 05-10-2024 GC PCR Source Cervix Normal [facility] ([place] Comment on above: Performed By: #### A LADY, CBC, MONO, MDW, GFR, ADIFF, BMP #### [address] [address] N. gonorrhoeae (PCR) Negative Normal Negative [facility] ([place] Comment on above: Result Comment: Tenorio sport tube received with two swabs. Review collection procedure. Inappropriate collection may cause aberrant results. Transport tube received with two swabs. Review collection procedure. Inappropriate collection may cause aberrant results. Molecular (PCR) assay performed on the [employer]orie 4800 System. Performed By: #### A LADY, CBC, MONO, MDW, GFR, ADIFF, BMP #### [address] [address] N. gonorrhoeae Interp Normal See NG Interp N [facility] ([place] Comment on above: Result Comment: N. g onorrhoeae DNA not detected. Specimen is presumptive negative for N. gonorrhoeae. A negative result does not preclude Neisseria gonorrhoeae infection because results depend on adequate specimen collection, absence of inhibitors, and sufficient DNA to be detected. See NG Interp N Performed By: #### A LADY, CBC, MONO, MDW, GFR, ADIFF, BMP #### [address] [address] .Urinalysis Microscopic (AO) on 05-08-2024 UA RBC 0-5 Abnormal None Seen [facility] ([place] Comment on above: Performed By: #### A LADY, CBC, MONO, MDW, GFR, ADIFF, BMP #### [place] [id number] [place], [place] [address] UA Squam Epithelial 0-5 Abnormal None Seen [facility] [place] Comment on above: Performed By: #### A LADY, CBC, MONO, MDW, GFR, ADIFF, BMP #### [place] [address] [place], [place] [address] UA WBC 0-5 Abnormal None Seen [facility] ([place] Comment on above: Performed By: #### A LADY, CBC, KELSEA ANGULO, GFR, ADIFF, BMP #### [facility] [address] [place], [place] [address] LABORATORYOrdered By: Harris aparicio on 05-08-2024 Appearance (U) Clear (05/08/24 3:30 PM) Normal Clear AO Auto Urine SS Bilirubin Ql (U) Negative (05/08/24 3:30 PM) Normal Negative AO Auto Urine SS Color (U) Yellow (05/08/24 3:30 PM) Normal AO Auto Urine SS Glucose Test strip (U) [Mass/Vol] Negative Normal Negative AO Auto Urine SS HCG ( test) Ql Negative (05/08/24 3:30 PM) Normal AO Manual Urine SS Hemoglobin Auto test strip (U) [Mass/Vol] Small *ABN* (05/08/24 3:30 PM) Invalid Interpretation Code Negative AO Auto Urine SS Ketones Ql (U) Negative Normal Negative AO Auto Urine SS test (u) int Not detected Invalid Interpretation Code AO Manual Urine SS UA Leuk Est Trace *ABN* (05/08/24 3:30 PM) Invalid Interpretation Code Negative AO Auto Urine SS UA Nitrite Negative (05/08/24 3:30 PM) Normal Negative AO Auto Urine SS UA pH 5.5 (05/08/24 3:30 PM) Normal 5.0 - 8.0 AO Auto Urine SS UA Protein Trace mg/dL Normal Negative AO Auto Urine SS UA RBC 0-5 /HPF Invalid Interpretation Code None Seen AO Auto Urine SS UA Spec Grav >=1.030 *ABN* (05/08/24 3:30 PM) Invalid Interpretation Code 1.015-1.025 AO Auto Urine SS UA Specimen Type Not Given (05/08/24 3:30 PM) Normal AO Auto Urine SS UA Squam Epithelial 0-5 /HPF Invalid Interpretation Code None Seen AO Auto Urine SS UA Urobilinogen 0.2 E.U./dL Normal 0.2-1.0 AO Auto Urine SS WBC LM.HPF (Urine sed) [#/Area] 0-5 /HPF Invalid Interpretation Code None Seen AO Auto Urine SS PREGUon 05-08-2024 HCG ( test) Ql (U) Negative Normal [facility] [place] Comment on above: Performed By: #### A LADY, CBC, MONO, MDW, GFR, ADIFF, BMP #### [address] [address] test (u) int Not detected Invalid Interpretation Code [facility] [place] Comment on above: Performed By: #### A LADY, CBC, MONO, MDW, GFR, ADIFF, BMP #### [address] [address] UAon 05-08-2024 Color (U) Yellow Normal [facility] ([place] Comment on above: Performed By: #### A LADY, CBC, MONO, MDW, GFR, ADIFF, BMP #### [address] [address] Glucose (U) [Mass/Vol] Negative [facility] Comment on above: Performed By: #### A LADY, CBC, MONO, MDW, GFR, ADIFF, BMP #### [address] [address] Ketones Ql (U) Negative Normal Negative [facility] ([place] Comment on above: Performed By: #### A LADY, CBC, MONO, MDW, GFR, ADIFF, BMP #### [address] [address] UA Appear Clear Normal Clear [facility] ([place] Comment on above: Performed By: #### A LADY, CBC, MONO, MDW, GFR, ADIFF, BMP #### [address] [address] UA Blood Small Abnormal Negative [facility] ([place] Comment on above: Performed By: #### A LADY, CBC, MONO, MDW, GFR, ADIFF, BMP #### [address] [address] UA Leuk Est Trace Abnormal Negative [facility] ([place] Comment on above: Performed By: #### A LADY, CBC, MONO, MDW, GFR, ADIFF, BMP #### [address] [address] UA Nitrite Negative Normal Negative [facility] ([place] Comment on above: Performed By: #### A LADY, CBC, MONO, MDW, GFR, ADIFF, BMP #### [place] [address] UA pH 5.5 Normal 5.0 - 8.0 [facility] ([place] Comment on above: Performed By: #### A LADY, CBC, MONO, MDW, GFR, ADIFF, BMP #### [place] [address] UA Protein Trace Normal Negative [facility] ([place] Comment on above: Performed By: #### A LADY, CBC, MONO, MDW, GFR, ADIFF, BMP #### [place] [address] UA Spec Grav >=1.030 Abnormal 1.015-1.025 [facility] ([place] Comment on above: Performed By: #### A LADY, CBC, MONO, MDW, GFR, ADIFF, BMP #### [place] [address] UA Specimen Type Not Given Normal [facility] [place] Comment on above: Performed By: #### A LADY, CBC, MONO, MDW, GFR, ADIFF, BMP #### [place] [address] UA Urobilinogen 0.2 E.U./dL Normal 0.2-1.0 [facility] [place] Comment on above: Performed By: #### A LADY, CBC, MONO, MDW, GFR, ADIFF, BMP #### [place] [address] Urobilinogen (U) [Mass/Vol] Negative Normal Negative [facility] [place] Comment on above: Performed By: #### A LADY, CBC, MONO, MDW, GFR, ADIFF, BMP #### [address] [place], [place] [address] US PELVIS NON-OB W/TRANSVAGI NALon 05-08-2024 US PELVIS NON-OB W/TRANSVAGINAL ORIGINAL EXAMINATION: TRANSVAGINAL AND TRANSABDOMINAL PELVIC ULTRASOUND05/08/2024 5:00 pm US PELVIS NON-OB TRANSABDOMINAL AND TRANSVAGINAL WITH DUPLEX DOPPLER IMAGING INCLUDING ARTERIAL INFLOW AND VENOUS OUTFLOW TECHNIQUE: Transvaginal and transabdominal pelvic ultrasound was performed. COMPARISON: None HISTORY: ORDERING SYSTEM PROVIDED HISTORY: Reason for Exam: pelvic pain/vaginal bleeding FINDINGS: The anteverted uterus is 8.1 x 3.7 x 3.6 cm and has normal echotexture. No myometrial mass is seen. The endometrial double wall thickness is 11.7 mm, within normal limits for a premenopausal female. An IUD is partially visualized in the lower endometrial canal and cervix. The ovaries are normal in echogenicity. The RIGHT and LEFT ovaries measure 2.7 x 2.4 x 2.7 cm and 2.7 x 1.8 x 2.0 cm respectively. There is blood flow to both ovaries. Small follicles are seen in the ovaries bilaterally. There is no free intraperitoneal fluid. IMPRESSION: An IUD is visualized in the lower endometrial canal/cervix. Repositioning is recommended. No other acute sonographic abnormalities are identified. I have personally reviewed the images of this examination and agree with the resident's findings and interpretation. Interpreted by: Fam Gallardo Preliminary Report By: Leda Willams Electronically signed By Fam Gallardo Dictated Date: 05/08/2024 5:16:05 PM Prelim Date: 05/08/2024 5:21:16 PM Sign Date: 05/08/2024 5:23:32 PM Ordering Provider: FRANK Pichardo [facility] ([place] CTPCRon 04-17-2024 C. trachomatis Interp Normal See CT Interp N [facility] [place] Comment on above: Result Comment: C. t rachomatis DNA not detected. Specimen is presumptive negative for C. trachomatis. A negative result does not preclude C. trachomatis infection because results depend on adequate specimen collection, absence of inhibitors, and sufficient DNA to be detected. See CT Interp N Performed By: #### C TPCR, NGPCR1 #### [address] [address] C.trachomatis PCR Negative Normal Negative [facility] [place] Comment on above: Result Comment: Denia cular (PCR) assay performed on the Angie Lorie 4800 system. Performed By: #### C TPCR, NGPCR1 #### [address] [address] Chlam Source Urine Normal [facility] [place] Comment on above: Performed By: #### C TPCR, NGPCR1 #### [place] [address] [id number] 04-17-2024 GC PCR Source Urine Normal [facility] ([place] Comment on above: Performed By: #### C TPCR, NGPCR1 #### [place] [address] N. gonorrhoeae (PCR) Negative Normal Negative [facility] ([place] Comment on above: Result Comment: Mole cular (PCR) assay performed on the Angie Lorie 4800 System. Performed By: #### C TPCR, NGPCR1 #### [address] [address] N. gonorrhoeae Interp Normal See NG Interp N [facility] ([place] Comment on above: Result Comment: N. g onorrhoeae DNA not detected. Specimen is presumptive negative for N. gonorrhoeae. A negative result does not preclude Neisseria gonorrhoeae infection because results depend on adequate specimen collection, absence of inhibitors, and sufficient DNA to be detected. See NG Interp N Performed By: #### C TPCR, NGPCR1 #### [place] [address] LABORATORYOrdered By: Ramona Mcdaniel on 04-16-2024 C. trachomatis DNA HUGH+probe Ql (Unsp spec) Negative 2 (04/16/24 10:57 PM) Normal Negative [facility] Viro/Sero SS Comment on above: Interpretive Data: M olecular (PCR) assay performed on the Angie [employer]orie 4800 system. C. trachomatis DNA HUGH+probe Ql (Unsp spec) C. trachomatis DNA not detected. Specimen is presumptive negative forC. trachomatis.A negative result does not preclude C. trachomatis infection becauseresults depend on adequate specimen collection, absence of inhibitors,and sufficient DNA to be detected. Normal See CT Interp N AH Auto Viro/Sero SS N. gonorrhoeae DNA HUGH+probe Ql (Unsp spec) Negative 1 (04/16/24 10:57 PM) Normal Negative [facility] Auto Viro/Sero SS Comment on above: Interpretive Data: M olecular (PCR) assay performed on the Angie Lorie 4800 System. N. gonorrhoeae DNA HUGH+probe Ql (Unsp spec) N. gonorrhoeae DNA not detected. Specimen is presumptive negative forN. gonorrhoeae. A negative result does not preclude Neisseria gonorrhoeaeinfection because results depend on adequate specimen collection, absenceof inhibitors, and sufficient DNA to be detected. Normal See NG Interp N AH Auto Viro/Sero SS Laboratory - Specimen inform ationOrdered By: Calvin Mcdaniel on 04-16-2024 Specimen source Nom (Unsp spec) Urine (04/16/24 10:57 PM) Normal AH Auto Viro/Sero SS XR KNEE THREE VIEWS RIGHTon 04-16-2024 XR KNEE THREE VIEWS RIGHT ORIGINAL EXAMINATION: THREE XRAY VIEWS OF THE RIGHT KNEE04/16/2024 6:30 pm COMPARISON: None HISTORY: ORDERING SYSTEM PROVIDED HISTORY: Reason for Exam: Pain FINDINGS: No acute fracture, dislocation, or suspicious osseous lesion. No joint effusion. No significant degenerative changes. IMPRESSION: No acute osseous abnormality. I have personally reviewed the images of this examination and agree with the resident's findings and interpretation. Interpreted by: Fam Gallardo Preliminary Report By: Brad Maher Electronically signed By Fam Galalrdo Dictated Date: 04/16/2024 6:48:03 PM Prelim Date: 04/16/2024 6:49:02 PM Sign Date: 04/16/2024 7:48:18 PM Ordering Provider: PRAVIN Pichardo [facility] ([place]) Comprehensive metabolic 2000 panelon 03-25-2024 Albumin [Mass/Vol] 4.7 g/dL Normal 3.9-4.9 [facility] Comment on above: Order Comment: Speci men Type: BLOOD SPECIMEN Ordering Facility: [facility] Address: [address] [place] [address] Performed By: #### 2 2323-8 #### [facility] CLIA [id number] [address] [place] [address] [place] ALP [Catalytic activity/Vol] 77 U/L Normal 34-123 [facility] Comment on above: Order Comment: Speci men Type: BLOOD SPECIMEN Ordering Facility: [facility] Address: [address] [place] [address], [place] [address] Performed By: #### 2 4323-8 #### [facility] CLIA [id number] [address] [place] [address] [place] ALT [Catalytic activity/Vol] 57 U/L High 7-38 [facility] Comment on above: Order Comment: Speci men Type: BLOOD SPECIMEN Ordering Facility: [facility] Address: [address] [place] [address], [place] [address] Performed By: #### 2 4323-8 #### [facility] CLIA [id number] [address] [place] [address] [place] Anion gap [Moles/Vol] 13 mmol/L Normal 9-18 [facility] Comment on above: Order Comment: Speci men Type: BLOOD SPECIMEN Ordering Facility: [facility] Address: [address] [place] [address], [place] [address] Performed By: #### 2 4323-8 #### [facility] CLIA [id number] [address] [place] [address] [place] AST [Catalytic activity/Vol] 37 U/L High 13-35 [facility] Comment on above: Order Comment: Speci men Type: BLOOD SPECIMEN Ordering Facility: [facility] Address: [address] [place] [address], [place] [address] Performed By: #### 2 4323-8 #### [facility] CLIA [id number] [address] [place] [id number] [place] Bilirubin [Mass/Vol] 0.3 mg/dL Normal 0.2-1.3 [facility] Comment on above: Order Comment: Speci men Type: BLOOD SPECIMEN Ordering Facility: [facility] Address: [address] [place] [address], [place] [address] Performed By: #### 2 4323-8 #### [facility] CLIA [id number] [address] [place] [address] [place] Calcium [Mass/Vol] 9.7 mg/dL Normal 8.5-10.2 [facility] Comment on above: Order Comment: Speci men Type: BLOOD SPECIMEN Ordering Facility: [facility] Address: [address] [place] [address], [place] [address] Performed By: #### 2 4323-8 #### [facility] CLIA [id number] [address] [place] [address] [place] Chloride [Moles/Vol] 105 mmol/L Normal 97-105 [facility] Comment on above: Order Comment: Speci men Type: BLOOD SPECIMEN Ordering Facility: [facility] Address: [address] [place] [address], [place] [address] Performed By: #### 2 4323-8 #### [facility] CLIA [id number] [address] [place] [address] [place] CO2 [Moles/Vol] 20 mmol/L Low 22-30 [facility] Comment on above: Order Comment: Speci men Type: BLOOD SPECIMEN Ordering Facility: [facility] Address: [address] [place] [address], [place] [address] Performed By: #### 2 4323-8 #### [facility] CLIA [id number] [address] [place] [address] [place] Creatinine [Mass/Vol] 0.75 mg/dL Normal 0.58-0.96 [facility] Comment on above: Order Comment: Speci men Type: BLOOD SPECIMEN Ordering Facility: [facility] Address: [address] [place] [address], [place] [address] Performed By: #### 2 4323-8 #### [facility] CLIA [id number] [address] [place] [address] [place] Creatinine and Glomerular filtration rate.predicted panel (S/P/Bld) 115 mL/min/1.73m??? Normal >=60 [facility] Comment on above: Order Comment: Flavio price Type: BLOOD SPECIMEN Ordering Facility: [facility] Address: [address] [place] [address] Result Comment: Lillian mated Glomerular Filtration Rate (eGFR) is calculated using the 2020 CKD-EPI creatinine equation. This equation utilizes serum creatinine, sex, and age as parameters. The creatinine assay has traceable calibration to isotope dilution-mass spectrometry. Refer to KDIGO guidelines for clinical interpretation. In patients with unstable renal function, e.g. those with acute kidney injury, the eGFR may not accurately reflect actual GFR. Performed By: #### 2 4323-8 #### [facility] CLIA [id number] [address] [place] [address] [place] Glucose [Mass/Vol] 86 mg/dL Normal 74-99 [facility] Comment on above: Order Comment: Flavio price Type: BLOOD SPECIMEN Ordering Facility: [facility] Address: [address] [place] [address] Result Comment: The [place] Diabetes Association (ADA) provides guidance for cutoff values for fasting glucose and random glucose. The ADA defines fasting as no caloric intake for at least 8 hours. Fasting plasma glucose results between 100 to 125 mg/dL indicate increased risk for diabetes (prediabetes). Fasting plasma glucose results greater than or equal to 126 mg/dL meet the criteria for diagnosis of diabetes. In the absence of unequivocal hyperglycemia, results should be confirmed by repeat testing. In a patient with classic symptoms of hyperglycemia or hyperglycemic crisis, random plasma glucose results greater than or equal to 200 mg/dL meet the criteria for diagnosis of diabetes. Reference: Standards of Medical Care in Diabetes 2016, [place] [employer]. Diabetes Care. 2016.39(Suppl 1). Performed By: #### 2 4323-8 #### [facility] CLIA [id number] [address] [place] [address] [place] Potassium [Moles/Vol] 3.7 mmol/L Normal 3.7-5.1 [facility] Comment on above: Order Comment: Speci men Type: BLOOD SPECIMEN Ordering Facility: [facility] Address: [address] [place] [address] Performed By: #### 2 4323-8 #### [facility] CLIA [id number] [address] [place] [address] [place] Protein [Mass/Vol] 7.7 g/dL Normal 6.3-8.0 [facility] Comment on above: Order Comment: Speci men Type: BLOOD SPECIMEN Ordering Facility: [facility] Address: [address] [place] [address] Performed By: #### 2 4323-8 #### [facility] CLIA [id number] [address] [place] [address] [place] Sodium [Moles/Vol] 138 mmol/L Normal 136-144 [facility] Comment on above: Order Comment: Speci men Type: BLOOD SPECIMEN Ordering Facility: [facility] Address: [address] [place] [address], [place] [address] Performed By: #### 2 4323-8 #### [facility] CLIA [id number] [address] [place] [address] [place] Urea nitrogen [Mass/Vol] 10 mg/dL Normal 7-21 [facility] Comment on above: Order Comment: Speci men Type: BLOOD SPECIMEN Ordering Facility: [facility] Address: [address] [place] [address] Performed By: #### 2 4323-8 #### [facility] CLIA [id number] [address] [place] [address] [place] CNOVon 12-17-2023 [facility] MARYAMAURI NAVARROTH ([id number]) 2 F Date Time Provider Department 12/17/23 1:15 PM DAVID CARREON [facility] During your visit today, we recorded the following information about you: Temperature Pulse Respiration Blood pressure 98.1 degrees 96/minute 16/minute 138/92 Weight 87.1 kg David Carreon, MECHATRONICS TECHNICIAN.ARMAMENT MECHANIC 12/17/2023 1:15 PM Signed Subjective HPI Nontoxic-appearing female presents urgent care [...] kyung totter Left ankle sprain 05/12 Menarche Age 12 Multiple allergies Allergy injections Pineal [...] 11/04/2018 ) predniSONE (DELTASONE) 20 mg tablet Brompheniramine-Pseudo eph-DM (BROMFED DM) 2-30-10 mg/5 mL syrup Take 5 mL by mouth four times daily as needed. (Patient not taking: Reported on 11/04/2018 ) meloxicam (MOBIC) 15 mg tablet Take 1 tablet by mouth once daily. (Patient not taking: Reported on 11/04/2018 ) flut (more content not included)... Normal [facility] [id number] 11-13-2023 SARS-CoV-2 (COVID-19) RNA HUGH+probe Ql (Unsp spec) Negative Normal Negative [facility] ([place]) Comment on above: Performed By: #### A LADY, CBC, MONO, MDW, GFR, ADIFF, BMP #### [place] [id number] [place], [place] [address] SARS-CoV-2 (COVID-19) RNA HUGH+probe Ql (Unsp spec) Normal [facility] ([place]) Comment on above: Result Comment: Nega tive results do not preclude SARS-CoV-2 infection and should not be used as the sole basis for patient management decisions. Negative results must be combined with clinical observations, patient history, and epidemiological information. There is a risk of false negative values resulting from improperly collected, transported, or handled specimens. There is a risk of false negative values due to the presence of sequence variants in the pathogen targets of the assay, procedural errors, amplification inhibitors in specimens, or inadequate numbers of organisms for amplification. BERRY SARS-CoV-2 Assay is a Real-Time reverse-transcriptase polymerase chain reaction (RT-PCR) based qualitative in vitro diagnostic test intended for the qualitative detection of nucleic acid from the SARS-CoV-2 in nasopharyngeal swab specimens collected from individuals suspected of COVID-19 by their healthcare provider. Testing is limited to laboratories certified under the Clinical Laboratory Improvement Amendments of 1988 (CLIA), 42 U.S.C. ?263a, to perform moderate and high complexity tests. COVID-19 Int Performed By: #### A LADY, CBC, MONO, MDW, GFR, ADGEORGE, BMP #### [place] [address] [place], [place] [address] FLURSVon 11-13-2023 Flu A PCR (AO) Negative Normal Negative [facility] ([place]) Comment on above: Result Comment: Posi tive Results: Positive Flu A/B or RSV for by PCR. Positive test results do not rule out bacterial infection or co-infection with other pathogens. Test results should be interpreted in conjunction with other laboratory and clinical data. Negative Results: Negative for by PCR. Negative test results do not preclude influenza virus or RSV infection and should not be used as the sole basis for diagnosis, treatment, or other management decisions. There is a risk of false negative RSV results when at low concentration and in the presence of co-infection with high concentration of influenza A. Invalid Results: An Invalid result (INV) was obtained. The test was repeated with similar results. REPEAT COLLECTION AND TESTING IS RECOMMENDED. The [employer] Flu A/B & RSV Assay is a real-time polymerase chain reaction (PCR) based qualitative in vitro diagnostic test for the direct detection and differentiation of influenza A virus, influenza B virus, and respiratory syncytial virus (RSV) nucleic acid in nasopharyngeal swab (MEDIA STRATEGIST) specimens from patients with signs and symptoms of respiratory infection in conjunction with clinical and laboratory findings. The test is intended for use as an aid in the differential diagnosis of influenza A virus, influenza B virus, and RSV in humans and is not intended to detect influenza C. Performed By: #### A LADY, CBC, MONO, MDW, GFR, ADIFF, BMP #### [place] [address] [address] Flu B PCR (AO) Negative Normal Negative [facility] ([place]) Comment on above: Result Comment: Posi tive Results: Positive Flu A/B or RSV for by PCR. Positive test results do not rule out bacterial infection or co-infection with other pathogens. Test results should be interpreted in conjunction with other laboratory and clinical data. Negative Results: Negative for by PCR. Negative test results do not preclude influenza virus or RSV infection and should not be used as the sole basis for diagnosis, treatment, or other management decisions. There is a risk of false negative RSV results when at low concentration and in the presence of co-infection with high concentration of influenza A. Invalid Results: An Invalid result (INV) was obtained. The test was repeated with similar results. REPEAT COLLECTION AND TESTING IS RECOMMENDED. The [employer] Flu A/B & RSV Assay is a real-time polymerase chain reaction (PCR) based qualitative in vitro diagnostic test for the direct detection and differentiation of influenza A virus, influenza B virus, and respiratory syncytial virus (RSV) nucleic acid in nasopharyngeal swab (MEDIA STRATEGIST) specimens from patients with signs and symptoms of respiratory infection in conjunction with clinical and laboratory findings. The test is intended for use as an aid in the differential diagnosis of influenza A virus, influenza B virus, and RSV in humans and is not intended to detect influenza C. Performed By: #### A LADY, CBC, MONO, MDW, GFR, ADIFF, BMP #### [address] [address] RSV PCR (AO) Negative Normal Negative [facility] ([place] Comment on above: Result Comment: Posi tive Results: Positive Flu A/B or RSV for by PCR. Positive test results do not rule out bacterial infection or co-infection with other pathogens. Test results should be interpreted in conjunction with other laboratory and clinical data. Negative Results: Negative for by PCR. Negative test results do not preclude influenza virus or RSV infection and should not be used as the sole basis for diagnosis, treatment, or other management decisions. There is a risk of false negative RSV results when at low concentration and in the presence of co-infection with high concentration of influenza A. Invalid Results: An Invalid result (INV) was obtained. The test was repeated with similar results. REPEAT COLLECTION AND TESTING IS RECOMMENDED. The Berry Flu A/B & RSV Assay is a real-time polymerase chain reaction (PCR) based qualitative in vitro diagnostic test for the direct detection and differentiation of influenza A virus, influenza B virus, and respiratory syncytial virus (RSV) nucleic acid in nasopharyngeal swab (MEDIA STRATEGIST) specimens from patients with signs and symptoms of respiratory infection in conjunction with clinical and laboratory findings. The test is intended for use as an aid in the differential diagnosis of influenza A virus, influenza B virus, and RSV in humans and is not intended to detect influenza C. Performed By: #### A LADY, CBC, MONO, MDW, GFR, ADIFF, BMP #### [place] [address] [place] [address] LABORATORYOrdered By: Amberly Franco on 11-13-2023 SARS-CoV-2 (COVID-19) RNA HUGH+probe Ql (Resp) Negative results do not preclude SARS-CoV-2 infection and should not be used as the sole basis for patient management decisions. Negative results must be combined with clinical observations, patient history, and epidemiological information.There is a risk of false negative values resulting from improperly collected, transported, or handled specimens.There is a risk of false negative values due to the presence of sequence variants in the pathogen targets of the assay, procedural errors, amplification inhibitors in specimens, or inadequate numbers of organisms for amplification.BERRY SARS-CoV-2 Assay is a Real-Time reverse-transcriptase polymerase chain reaction (RT-PCR) based qualitative in vitro diagnostic test intended for the qualitative detection of nucleic acid from the SARS-CoV-2 in nasopharyngeal swab specimens collected from individuals suspected of COVID-19 by their healthcare provider. Testing is limited to laboratories certified under the Clinical Laboratory Improvement Amendments of 1988 (CLIA), 42 U.S.C. 263a, to perform moderate and high complexity tests. Invalid Interpretation Code AO Auto Urine SS LABORATORYOrdered By: Juan Alberto Givens on 11-13-2023 FLUAV RNA HUGH+probe Ql (Upper resp) Negative 1 (11/13/23 6:35 PM) Normal Negative AO Auto Urine SS Comment on above: Interpretive Data: P ositive Results: Positive Flu A/B or RSV for by PCR. Positive test results do not rule out bacterial infection or co-infection with other pathogens. Test results should be interpreted in conjunction with other laboratory and clinical data. Negative Results: Negative for by PCR. Negative test results do not preclude influenza virus or RSV infection and should not be used as the sole basis for diagnosis, treatment, or other management decisions. There is a risk of false negative RSV results when at low concentration and in the presence of co-infection with high concentration of influenza A. Invalid Results: An Invalid result (INV) was obtained. The test was repeated with similar results. REPEAT COLLECTION AND TESTING IS RECOMMENDED. The Berry Flu A/B & RSV Assay is a real-time polymerase chain reaction (PCR) based qualitative in vitro diagnostic test for the direct detection and differentiation of influenza A virus, influenza B virus, and respiratory syncytial virus (RSV) nucleic acid in nasopharyngeal swab (MEDIA STRATEGIST) specimens from patients with signs and symptoms of respiratory infection in conjunction with clinical and laboratory findings. The test is intended for use as an aid in the differential diagnosis of influenza A virus, influenza B virus, and RSV in humans and is not intended to detect influenza C. FLUBV RNA HUGH+probe Ql (Upper resp) Negative 2 (11/13/23 6:35 PM) Normal Negative AO Auto Urine SS Comment on above: Interpretive Data: P ositive Results: Positive Flu A/B or RSV for by PCR. Positive test results do not rule out bacterial infection or co-infection with other pathogens. Test results should be interpreted in conjunction with other laboratory and clinical data. Negative Results: Negative for by PCR. Negative test results do not preclude influenza virus or RSV infection and should not be used as the sole basis for diagnosis, treatment, or other management decisions. There is a risk of false negative RSV results when at low concentration and in the presence of co-infection with high concentration of influenza A. Invalid Results: An Invalid result (INV) was obtained. The test was repeated with similar results. REPEAT COLLECTION AND TESTING IS RECOMMENDED. The Berry Flu A/B & RSV Assay is a real-time polymerase chain reaction (PCR) based qualitative in vitro diagnostic test for the direct detection and differentiation of influenza A virus, influenza B virus, and respiratory syncytial virus (RSV) nucleic acid in nasopharyngeal swab (MEDIA STRATEGIST) specimens from patients with signs and symptoms of respiratory infection in conjunction with clinical and laboratory findings. The test is intended for use as an aid in the differential diagnosis of influenza A virus, influenza B virus, and RSV in humans and is not intended to detect influenza C. HCG ( test) Ql Negative (11/13/23 6:35 PM) Normal AO Manual Urine SS test (u) int Not detected Invalid Interpretation Code AO Manual Urine SS RSV RNA HUGH+probe Ql (Upper resp) Negative 3 (11/13/23 6:35 PM) Normal Negative AO Auto Urine SS Comment on above: Interpretive Data: P ositive Results: Positive Flu A/B or RSV for by PCR. Positive test results do not rule out bacterial infection or co-infection with other pathogens. Test results should be interpreted in conjunction with other laboratory and clinical data. Negative Results: Negative for by PCR. Negative test results do not preclude influenza virus or RSV infection and should not be used as the sole basis for diagnosis, treatment, or other management decisions. There is a risk of false negative RSV results when at low concentration and in the presence of co-infection with high concentration of influenza A. Invalid Results: An Invalid result (INV) was obtained. The test was repeated with similar results. REPEAT COLLECTION AND TESTING IS RECOMMENDED. The [employer] Flu A/B & RSV Assay is a real-time polymerase chain reaction (PCR) based qualitative in vitro diagnostic test for the direct detection and differentiation of influenza A virus, influenza B virus, and respiratory syncytial virus (RSV) nucleic acid in nasopharyngeal swab (MEDIA STRATEGIST) specimens from patients with signs and symptoms of respiratory infection in conjunction with clinical and laboratory findings. The test is intended for use as an aid in the differential diagnosis of influenza A virus, influenza B virus, and RSV in humans and is not intended to detect influenza C. PREGUon 11-13-2023 HCG ( test) Ql (U) Negative Normal [facility] ([place] Comment on above: Performed By: #### P REGU #### [address] [address] test (u) int Not detected Invalid Interpretation Code [facility] [place] Comment on above: Performed By: #### P REGU #### [address] [address] US Heart TransthoracicOrdere d By: Morena Panda on 11-06-2023 Ascending Aorta 2.7 cm [facility] Work Phone: Ascending Aorta Index 1.54 cm/m2 [facility] Work Phone: E/E' Lateral 8.36 [facility] Work Phone: E/E' Ratio (Averaged) 9.93 [facility] Work Phone: E/E' Septal 11.50 [facility] Work Phone: EF BP 57 % 55 - 100 % [facility] Work Phone: Fractional Shortening 2D 35 % 28 - 44 % [facility] Work Phone: IVC Diameter 1.1 cm [facility] Work Phone: IVSd 0.9 cm 0.6 - 0.9 cm [facility] Work Phone: LA Diameter 3.3 cm [facility] Work Phone: LA Size Index 1.89 cm/m2 [facility] Work Phone: LA Volume 4C 31 mL 22 - 52 mL [facility] [employer] Work Phone: LA Volume Index 4C 18 mL/m2 16 - 34 mL/m2 [facility] [employer] Work Phone: LV E' Lateral Velocity 11 cm/s [facility] Work Phone: LV E' Septal Velocity 8 cm/s [facility] [employer] Work Phone: LV EDV A2C 53 mL [facility] [employer] Work Phone: LV EDV A4C 73 mL [facility] Work Phone: LV EDV BP 62 mL 56 - 104 mL [facility] Work Phone: LV EDV Index A2C 30 mL/m2 [facility] Work Phone: LV EDV Index A4C 42 mL/m2 [facility] Work Phone: LV EDV Index BP 35 mL/m2 [facility] Work Phone: LV Ejection Fraction A2C 55 % [facility] Work Phone: LV Ejection Fraction A4C 58 % [facility] Work Phone: LV ESV A2C 24 mL [facility] Work Phone: LV ESV A4C 31 mL [facility] Work Phone: LV ESV BP 29 mL 19 - 49 mL [facility] Work Phone: LV ESV Index A2C 14 mL/m2 [facility] [employer] Work Phone: LV ESV Index A4C 18 mL/m2 [facility] [employer] Work Phone: LV ESV Index BP 17 mL/m2 [facility] Work Phone: LV Mass 2D 109.7 g 67 - 162 g [facility] Work Phone: LV Mass 2D Index 62.7 g/m2 43 - 95 g/m2 [facility] Work Phone: LV RWT Ratio 0.45 [facility] Work Phone: [phone] LVIDd 4.0 cm 3.9 - 5.3 cm [facility] Work Phone: LVIDd Index 2.29 cm/m2 [facility] Work Phone: LVIDs 2.6 cm [facility] Work Phone: LVIDs Index 1.49 cm/m2 [facility] Work Phone: [phone] LVOT Area 2.8 cm2 [facility] Work Phone: [phone] LVOT Cardiac Output 11.5 liter/minute [facility] Work Phone: [phone] LVOT Diameter 1.9 cm [facility] Work Phone: LVOT Mean Gradient 2 mmHg [facility] Work Phone: LVOT Peak Gradient 4 mmHg [facility] Work Phone: LVOT Peak Velocity 1.0 m/s [facility] Work Phone: LVOT Stroke Volume Index 33.2 mL/m2 [facility] Work Phone: LVOT SV 58.1 ml [facility] Work Phone: LVOT VTI 20.5 cm [facility] Work Phone: [phone] LVPWd 0.9 cm 0.6 - 0.9 cm [employer] Work Phone: MV A Velocity 0.92 m/s [facility] [employer] Work Phone: [phone] MV E Velocity 0.92 m/s [facility] [employer] Work Phone: [phone] MV E Wave Deceleration Time 170.3 ms [employer] Work Phone: [phone] MV E/A 1.00 [facility] Work Phone: TAPSE 2.2 cm 1.7 cm [facility] Work Phone: [phone] [facility] Work Phone: [phone] US Heart Transthoracicon Left Ventricle: Left ventricle size is normal. Normal wall thickness. Normal left ventricular systolic function. EF by 2D [employer] is 57%. Normal wall motion. Normal diastolic function. Right Ventricle: Right ventricle size is normal. Normal systolic function. No significant valvular abnormalities. Technically difficult study. Left Ventricle Left ventricle size is normal. Normal wall thickness. Normal left ventricular systolic function. EF by 2D [employer] is 57%. Normal wall motion. Normal diastolic function. Right Ventricle Right ventricle size is normal. Normal systolic function. Left Atrium Left atrium size is normal. Right Atrium Right atrium size is normal. IVC/SVC IVC diameter is normal and decreases greater than 50% during inspiration; therefore the estimated right atrial pressure is normal (~3 mmHg). Mitral Valve Valve structure is normal. No regurgitation. No stenosis noted. Tricuspid Valve Valve structure is normal. Trace regurgitation. Aortic Valve Trileaflet. No cusp thickening. No cusp calcification. No regurgitation. No stenosis. Pulmonic Valve Valve structure is normal. Trace regurgitation. Ascending Aorta Normal sized sinuses of Valsalva and ascending aorta. Pericardium No pericardial effusion. Septum No interatrial shunt visualized on color Doppler. Study Details Image quality: good. Heart rate: 86 bpm. The underlying ECG rhythm was sinus rhythm. No contrast was given. Echo Additional Conclusions No significant valvular abnormalities.Technica lly difficult study. CV CPACS EKGon 09-21-2023 [facility] [place] Levelon 09-19-2023 [place] [Moles/Vol] 0.6 mmol/L 0.6 - 1. 2 mmol/L [facility] [place] [Moles/Vol]on 2022 Interpretation and review of laboratory results Normal [facility] Cholesterol in LDL Direct as say [Mass/Vol]on 09-18-2023 Cholesterol in LDL [Mass/Vol] 58 mg/dL 10 - 130 mg/dL [facility] Comment on above: National Cholesterol Education Program Guidelines: LDL Cholesterol Optimal: <100 mg/dL Near Optimal/above Optimal: 100-129 mg/dL Borderline High: 130-159 mg/dL High: 160-189 mg/dL Very High: greater than or equal to 190 mg/dL Interpretation and review of laboratory results Normal [facility] Comprehensive metabolic 2000 panelon 09-18-2023 Albumin [Mass/Vol] 4.0 g/dL 3.2 - 5.2 g/dL [facility] ALP [Catalytic activity/Vol] 100 U/L 40 - 140 U/L [facility] ALT [Catalytic activity/Vol] 44 U/L 14 - 65 U/L [facility] Anion gap [Moles/Vol] 10 mmol/L 10 - 2 0 mmol/L [facility] AST [Catalytic activity/Vol] 12 U/L 0-35 U/L [facility] Bilirubin [Mass/Vol] 0.4 mg/dL 0.0 - 1 .3 mg/dL [facility] Calcium [Mass/Vol] 9.5 mg/dL 8.4 - 10. 2 mg/dL [facility] Chloride [Moles/Vol] 110 mmol/L High 98 - 10 8 mmol/L [facility] Creatinine [Mass/Vol] 0.97 mg/dL 0.40 - 1.10 mg/dL [facility] GFR/1.73 sq M.predicted CKD-EPI (S/P/Bld) [Vol rate/Area] 85 - PINF [facility] Comment on above: Estimated GFR was ca lculated using the 2020 CKD-EPI creatinine equation. Glucose [Mass/Vol] 123 mg/dL High 65 - 99 mg/dL [facility] HCO3 [Moles/Vol] 23 mmol/L 21 - 32 mmol/L [facility] Potassium [Moles/Vol] 3.5 mmol/L 3.5 - 5.1 mmol/L [facility] Protein [Mass/Vol] 8.6 g/dL High 6.0 - 8.0 g/dL [facility] Sodium [Moles/Vol] 139 mmol/L 135 - 145 mmol/L [facility] Urea nitrogen [Mass/Vol] 6 mg/dL Low 8 - 25 mg/dL [facility] Urea nitrogen/Creatinine [Mass ratio] 6.2 mg/mg Low 10.0 - 20.0 [facility] Laborator y Services has implemented the eGFR calculation approach that does not have a coefficient for race that conforms to the NKF-ASN Task Force Recommendations. [facility] HbA1c (Bld) [Mass fraction]O rdered By: Momo Hagen on 09-18-2023 Average glucose Estimated from glycated hemoglobin (Bld) [Mass/Vol] 103 mg/dL 68 - 114 mg/dL [facility] Interpretation and review of laboratory results Normal [facility] Normal: 4.0% - 5.6% Increased risk for diabetes: 5.7% - 6.4% Diabetes: >= 6.5% Pediatrics: No established reference range Estimated average glucose: 68-114 mg/dL [facility] Hemoglobin [id number] By: Kyara Hagen on 09-18-2023 HbA1c (Bld) [Mass fraction] 5.2 % 4.0 - 5.6 % [facility] Lipid 1996 panelon 3 Cholesterol [Mass/Vol] 144 mg/dL 100 - 199 mg/dL [facility] Comment on above: National Cholesterol Education Program Guidelines: Cholesterol Desirable: <200 mg/dL Borderline High: 200-239 mg/dL High: greater than or equal to 240 mg/dL Cholesterol in HDL [Mass/Vol] 28 mg/dL Low 40 - 59 mg/dL [facility] Comment on above: National Cholesterol Education Program Guidelines: HDL Cholesterol Low: <40 mg/dL Near Optimal: 40-59 mg/dL High: greater than or equal to 60 mg/dL Cholesterol in LDL [Mass/Vol] [facility] Comment on above: Calculated LDL inval id, triglycerides >400 mg/dl Cholesterol non HDL [Mass/Vol] 116 mg/dL [facility] Comment on above: National Cholesterol Education Program Guidelines: NON HDL Cholesterol Desirable: <130 mg/dL Borderline High: 130-159 mg/dL High: 160-189 mg/dL Very High: > or = 190 mg/dL Cholesterol.total/Chol esterol in HDL [Mass ratio] 5.1 {ratio} ratio [facility] Comment on above: Female Cholesterol/H DL Ratio: Average risk: 4.4 1/2 average risk: 3.3 2 x average risk: 7.1 Triglyceride [Mass/Vol] 546 mg/dL High 30 - 150 mg/dL [facility] Comment on above: National Cholesterol Education Program Guidelines: Triglyceride Normal: <150 mg/dL Borderline High: 150-199 mg/dL High: 200-499 mg/dL Very High: greater than or equal to 500 mg/dL [place] Levelon 09-18-2023 [place] [Moles/Vol] 0.7 mmol/L 0.6 - 1. 2 mmol/L [facility] [place] [Moles/Vol]on 2022 Interpretation and review of laboratory results Normal [facility] No Panel Informationon 09-18 Interpretation and review of laboratory results Abnormal [facility] ECG 12 lead - CLINIC PERFORM EDon 08-14-2023 Sinus Rhythm -Freque nt pvcs -ventricular bigeminy Low voltage in precordial leads. -Abnormal precordial QRS contours -nondiagnostic for this age. -Negative precordial T-waves. ABNORMAL [facility] [employer] ECG 12 lead - CLINIC PERFORM EDOrdered By: Ananda Kinsey on 08-14-2023 [facility] Work Phone: [place] Levelon 07-22-2023 [place] [Moles/Vol] 0.8 mmol/L 0.6 - 1. 2 mmol/L [facility] [place] [Moles/Vol]on 2022 Interpretation and review of laboratory results Normal [facility] US Abdomenon 06-26-2023 No acute sonographic process identified. Report Dictated on Electronically Signed By: Henok Sheth MD Electronically Signed Date/Time: 06/26/2023 8:09 AM [facility] RADIOLOGY SYSTEM Patient Name: [facility]ART[facility]NDEZ [facility] 2000 [id number] Exam Date/Time: 06/26/2023 07:54 Procedure: US ABDOMEN COMPLETE Ordering Provider: HALLMAN LEISA Reason For Exam: Generalized abdominal pain ULTRASOUND ABDOMEN COMPLETE CLINICAL INDICATION: Abdominal pain TECHNIQUE: Complete ultrasound of abdomen COMPARISON: None FINDINGS: Liver: Normal echogenicity, size and contours. No focal lesion identified. Gallbladder: The gallbladder appears within normal limits. Sonographic Gonzalez sign is reported as negative. Bile ducts: No evidence of biliary ductal dilatation. Common bile duct: 3.0 mm Pancreas: Visualized portions of the pancreas are normal in appearance. Right kidney: Normal parenchymal echogenicity without mass or hydronephrosis. Right Kidney Dimensions: 9.7 x 4.7 x 4.5 cm Left kidney: Normal parenchymal echogenicity without mass or hydronephrosis. Left Kidney Dimensions: 9.1 x 5.6 x 5.6 cm Spleen: Normal echogenicity and size. No mass identified. Spleen Dimensions: 10.7 x 4.1 x 8.5 cm Aorta and Inferior vena cava: Visualized portions are normal Ascites: None [facility] RADIOLOGY SYSTEM Henok Sheth MD - 06/26/2023 Patient Name: MARTITA HERNANDEZ : 2000 Exam Date/Time: 06/26/2023 07:54 Procedure: US ABDOMEN COMPLETE Ordering Provider: HALLMAN LEISA Reason For Exam: Generalized abdominal pain ULTRASOUND ABDOMEN COMPLETE CLINICAL INDICATION: Abdominal pain TECHNIQUE: Complete ultrasound of abdomen COMPARISON: None FINDINGS: Liver: Normal echogenicity, size and contours. No focal lesion identified. Gallbladder: The gallbladder appears within normal limits. Sonographic Gonzalez sign is reported as negative. Bile ducts: No evidence of biliary ductal dilatation. Common bile duct: 3.0 mm Pancreas: Visualized portions of the pancreas are normal in appearance. Right kidney: Normal parenchymal echogenicity without mass or hydronephrosis. Right Kidney Dimensions: 9.7 x 4.7 x 4.5 cm Left kidney: Normal parenchymal echogenicity without mass or hydronephrosis. Left Kidney Dimensions: 9.1 x 5.6 x 5.6 cm Spleen: Normal echogenicity and size. No mass identified. Spleen Dimensions: 10.7 x 4.1 x 8.5 cm Aorta and Inferior vena cava: Visualized portions are normal Ascites: None IMPRESSION: No acute sonographic process identified. Report Dictated on Electronically Signed By: Henok Sheth MD Electronically Signed Date/Time: 06/26/2023 8:09 AM EDT [facility] Radiology Study observation (narrative) [facility] US AbdomenOrdered By: Henok Sheth on 06-26-2023 [facility] Work Phone: XR Abdomen and RF Gastrointe stinal tract upper W contrast Unruly 06-26-2023 Small hiatal hernia without gastroesophageal reflux. Report Dictated on Electronically Signed By: Abimael Ochoa MD Electronically Signed Date/Time: 06/26/2023 10:[address] [facility] Patient Name: MARTITA HERNANDEZ : 2000 Exam Date/Time: 06/26/2023 09:08 Procedure: FL UPPER GI WITH KUB Ordering Provider: HALLMAN LEISA Reason For Exam: HEARTBURN AIR CONTRAST UGI SERIES CLINICAL INDICATIONS: Gastroesophageal reflux disease. Preop for bariatric surgery. FLUOROSCOPY DOSE: Ka,r= 201.0 mGy TECHNIQUE: Biphasic exam was performed with barium and air. FINDINGS: Barium and air are administered. The esophagus is studied in the upright as well as the horizontal positions. The esophagus is normal in course and caliber. There is a small hiatal hernia without gastroesophageal reflux. Barium flows freely from the esophagus into the stomach. The stomach and duodenum show normal mucosal pattern, with no discrete ulcer or mass. The visualized proximal jejunum is unremarkable. [facility] Abimael Ochoa MD - 06/26/2023 Patient Name: MARTITA HERNANDEZ : 2000 Exam Date/Time: 06/26/2023 09:08 Procedure: FL UPPER GI WITH KUB Ordering Provider: HALLMAN LEISA Reason For Exam: HEARTBURN AIR CONTRAST UGI SERIES CLINICAL INDICATIONS: Gastroesophageal reflux disease. Preop for bariatric surgery. FLUOROSCOPY DOSE: Ka,r= 201.0 mGy TECHNIQUE: Biphasic exam was performed with barium and air. FINDINGS: Barium and air are administered. The esophagus is studied in the upright as well as the horizontal positions. The esophagus is normal in course and caliber. There is a small hiatal hernia without gastroesophageal reflux. Barium flows freely from the esophagus into the stomach. The stomach and duodenum show normal mucosal pattern, with no discrete ulcer or mass. The visualized proximal jejunum is unremarkable. IMPRESSION: Small hiatal hernia without gastroesophageal reflux. Report Dictated on Electronically Signed By: Abimael Ochoa MD Electronically Signed Date/Time: 06/26/2023 10:24 AM EDT [facility] [employer] Radiology Study observation (narrative) [employer] XR Abdomen and RF Gastrointe stinal tract upper W contrast POOrdered By: Abimael Ochoa on 06-26-2023 [employer] Work Phone: Vitamin B1, whole bloodon Thiamine pyrophosphate (Bld) [Moles/Vol] 128 nmol/L 70 - 180 nmol/L [facility] [employer] Comment on above: INTERPRETIVE INFORMA TION: Vitamin B1, Whole Blood This assay measures the concentration of thiamine diphosphate (TDP), the primary active form of vitamin B1. Approximately 90 percent of vitamin B1 present in whole blood is TDP. Thiamine and thiamine monophosphate, which comprise the remaining 10 percent, are not measured. This test was developed and its performance characteristics determined by [employer]. It has not been cleared or approved by the [place] Food and Drug Administration. This test was performed in a CLIA certified laboratory and is intended for clinical purposes. Performed By: [employer] [address] [place] [id number] [employer]: Estuardo Lutz MD, PhD [facility] LABORATORYOrdered By: SYSTEM SYSTEM on 05-31-2023 Calcium [Mass/Vol] 9.4 mg/dL Invalid Interpretation Code 8.4 - 10.2 mg/dL AO ADM SS Chloride [Moles/Vol] 103 mmol/L Invalid Interpretation Code 98 - 107 mmol/L AO ADM SS CO2 [Moles/Vol] 23 mmol/L Invalid Interpretation Code 22 - 29 mmol/L AO ADM SS Creatinine [Mass/Vol] 0.81 mg/dL Invalid Interpretation Code 0.55 - 1.02 mg/dL AO ADM SS Electrolyte Balance 13.0 mEq/L Invalid Interpretation Code 4.0 - 15.0 mEq/L AO ADM SS GFR/1.73 sq M.predicted among blacks MDRD (S/P/Bld) [Vol rate/Area] 107 ml/min/1.73sqm Invalid Interpretation Code AO Chemistry S GFR/1.73 sq M.predicted among non-blacks MDRD (S/P/Bld) [Vol rate/Area] 88 ml/min/1.73sqm Invalid Interpretation Code AO Chemistry S Glucose [Mass/Vol] 128 mg/dL Invalid Interpretation Code 70 - 105 mg/dL AO ADM SS Potassium [Moles/Vol] 3.6 mmol/L Invalid Interpretation Code 3.5 - 5.1 mmol/L AO ADM SS Sodium [Moles/Vol] 139 mmol/L Invalid Interpretation Code 136 - 145 mmol/L AO ADM SS Urea nitrogen [Mass/Vol] 14 mg/dL Invalid Interpretation Code 7 - 18 mg/dL AO ADM SS Urea nitrogen/Creatinine [Mass ratio] 17 ratio Invalid Interpretation Code 7 - 27 ratio AO ADM SS [place] 05-31-2023 Zinc [Mass/Vol] 108.2 ug/dL 60.0 - 120.0 ug/dL [facility] Comment on above: INTERPRETIVE INFORMA TION: Zinc, Serum or Plasma Elevated results may be due to skin or collection-related contamination, including the use of a noncertified metal-free collection/transport tube. If contamination concerns exist due to elevated levels of serum/plasma zinc, confirmation with a second specimen collected in a certified metal-free tube is recommended. Circulating zinc concentrations are dependent on albumin status and are depressed with malnutrition. Zinc may also be lowered with infection, inflammation, stress, oral contraceptives, and . Zinc may be elevated with zinc supplementation or fasting. Elevated zinc concentrations may interfere with copper absorption. This test was developed and its performance characteristics determined by [facility]. It has not been cleared or approved by the US Food and Drug Administration. This test was performed in a CLIA certified laboratory and is intended for clinical purposes. Performed By: [facility] [address] [place] [id number] [employer]: Estuardo Lutz MD, PhD [facility] 25-hydroxyvitamin D3 [Mass/V ol]on 05-29-2023 Interpretation and review of laboratory results Abnormal [facility] [employer] [facility] Therapy is based on measurement of Total 25-OHD with the following classification levels: Less than 20 ng/mL: Indicative of Vit D deficiency 20-30 ng/mL: Suggests Vit D insufficiency Optimal: Greater than or equal to 30 ng/mL Test performed by [employer] Immunoassay, measuring Total Vitamin D, not individual fractions. [facility] CBC panel Auto (Bld)Ordered By: Lorie Morgan on 05-29-2023 Erythrocyte distribution width (RBC) [Ratio] 14.6 % High 11.5 - 14.5 % [facility] [place] Hematocrit (Bld) [Volume fraction] 36.6 % 35.0 - 47.0 % [facility] Hemoglobin (Bld) [Mass/Vol] 12.0 g/dL 11.7 - 16.0 g/dL [facility] Interpretation and review of laboratory results Abnormal [facility] MCH (RBC) [Entitic mass] 27.8 pg 26.0 - 34.0 pg [facility] MCHC (RBC) [Mass/Vol] 32.8 % 32.0 - 36.0 % [facility] MCV (RBC) [Entitic vol] 84.9 fL 80.0 - 98.0 fL [facility] Platelet mean volume (Bld) [Entitic vol] 9.5 fL 7.4 - 12.4 fL [facility] [place] Comment on above: MPV is a calculated measurement using platelet volume ratio Platelets (Bld) [#/Vol] 389 10*3/uL 140 - 440 10*3/uL [facility] [place] RBC (Bld) [#/Vol] 4.31 10*6/uL 3.8 - 5.20 10*6/uL [facility] [place] WBC (Bld) [#/Vol] 7.8 10*3/uL 3.6 - 10.7 10*3/uL [facility] Comprehensive metabolic 1998 panelon 05-29-2023 Albumin [Mass/Vol] 4.5 g/dL 3.5 - 5.0 g/dL [facility] [place] ALP [Catalytic activity/Vol] 73 U/L 38 - 126 U/L [facility] ALT [Catalytic activity/Vol] 30 U/L 0 - 34 U/L [facility] [place] Anion gap [Moles/Vol] 8 mmol/L 3 - 13 mmol/L [facility] AST [Catalytic activity/Vol] 28 U/L 15 - 46 U/L [facility] [place] Bilirubin [Mass/Vol] 0.4 mg/dL 0.2 - 1 .3 mg/dL [facility] [place] Calcium [Mass/Vol] 9.3 mg/dL 8.4 - 10. 4 mg/dL [facility] Chloride [Moles/Vol] 108 mmol/L High 98 - 10 7 mmol/L [facility] CO2 [Moles/Vol] 23 mmol/L 22 - 30 mmol/L [facility] [place] Creatinine [Mass/Vol] 0.75 mg/dL 0.52 - 1.04 mg/dL [facility] GFR/1.73 sq M.predicted MDRD (S/P/Bld) [Vol rate/Area] - PINF [facility] [place] Comment on above: Calculation based on the Chronic Kidney Disease Epidemiology Collaboration (CKD-EPI) equation refit without adjustment for race Glucose [Mass/Vol] 92 mg/dL 70 - 100 mg/dL [facility] [place] Potassium [Moles/Vol] 4.3 mmol/L 3.5 - 5.1 mmol/L [facility] Protein [Mass/Vol] 8.0 g/dL 6.3 - 8.2 g/dL [facility] Sodium [Moles/Vol] 139 mmol/L 135 - 145 mmol/L [facility] Urea nitrogen [Mass/Vol] 13 mg/dL 7 - 17 mg/dL [facility] Ferritinon 05-29-2023 Ferritin [Mass/Vol] 17 ng/mL 6 - 137 ng/mL [facility] Ferritin [Mass/Vol]on 2022 Interpretation and review of laboratory results Normal [facility] Folateon 05-29-2023 Folate [Mass/Vol] 9.9 ng/mL 2.9 - PINF ng/mL [facility] HbA1c (Bld) [Mass fraction]o n 05-29-2023 Average glucose Estimated from glycated hemoglobin (Bld) [Mass/Vol] 97 mg/dL [facility] Hemoglobin A1con 05-29-2023 HbA1c (Bld) [Mass fraction] 5.0 % NINF - 5.7 % [facility] [place] Comment on above: Normal less than 5.7 % Prediabetes 5.7% to 6.4% Diabetes 6.5% or higher --HgbA1C levels may not be accurate in patients who have renal disease, received recent blood transfusions, are anemic, or who have dyshemoglobinemia. Iron and Iron binding capaci ty panelon 05-29-2023 Interpretation and review of laboratory results Normal [facility] Iron [Mass/Vol] 77 ug/dL 37 - 170 ug/dL [facility] Lipid 1996 panelon 06-28-202 3 Cholesterol [Mass/Vol] 180 mg/dL NINF - 200 mg/dL [facility] Cholesterol in HDL [Mass/Vol] 33 mg/dL Low 40 - 60 mg/dL [facility] Cholesterol in LDL [Mass/Vol] 84 mg/dL 0 - <100 [facility] Cholesterol.total/Chol esterol in HDL [Mass ratio] 5 {ratio} [facility] Comment on above: Ref Range: < 3 Low Risk for CHD 3-6 Mod Risk for CHD > 6 High Risk for CHD Triglyceride [Mass/Vol] 317 mg/dL High NINF - 150 mg/dL [facility] Magnesiumon 05-29-2023 Magnesium [Mass/Vol] 2.1 mg/dL 1.6 - 2 .3 mg/dL [facility] Magnesium [Mass/Vol]on 05-29 Interpretation and review of laboratory results Normal [facility] No Panel Informationon 05-29 Interpretation and review of laboratory results Normal [facility] Interpretation and review of laboratory results Abnormal [facility] TSHon 05-29-2023 TSH Qn 2.683 m[IU]/[facility]23 Interpretation and review of laboratory results Normal [facility] Vitamin B12on 05-29-2023 Cobalamin (Vitamin B12) [Mass/Vol] 304 pg/mL 239 - 931 pg/mL [facility] Vitamin D 25 hydroxyon 05-29 25-hydroxyvitamin D3 [Mass/Vol] 25 ng/mL Low 30 - 100 ng/mL [facility] STREP A MOLECULAR (POC)on Procedural Control Valid [facility] Strep A (POCT) Positive Abnormal Negative [facility] Bacteria identified Aer cx N om (Unsp spec)Ordered By: Marilou Vargas on 12-24-2022 [facility] Norvelt Levelon 12-24-2022 Norvelt [Moles/Vol] 0.6 mmol/L 0.6 - 1. 2 mmol/L [facility] Norvelt [Moles/Vol]on 2022 Interpretation and review of laboratory results Normal [facility] Urine Aerobic CultureOrdered By: Marilou Vargas on 12-24-2022 Bacteria identified Aer cx Nom (Unsp spec) > 10,000 CFU/mL mixture of normal urogenital microbiota [facility] Alcohol, Medicalon 3 Ethanol [Mass/Vol] mg/dL NINF - 10 .00 mg/dL [facility] Comment on above: Alcohol cutoff: <10. 00 mg/dL = None Detected Basic metabolic 1998 panelon 12-20-2022 Anion gap [Moles/Vol] 13 mmol/L 10 - 2 0 mmol/L [facility] Chloride [Moles/Vol] 106 mmol/L 98 - 10 8 mmol/L [facility] Creatinine [Mass/Vol] 0.92 mg/dL 0.40 - 1.10 mg/dL [facility] GFR/1.73 sq M.predicted CKD-EPI (S/P/Bld) [Vol rate/Area] 91 - PINF [facility] Comment on above: Estimated GFR was ca lculated using the 2020 CKD-EPI creatinine equation. Glucose [Mass/Vol] 87 mg/dL 65 - 99 mg/dL [facility] HCO3 [Moles/Vol] 23 mmol/L 21 - 32 mmol/L [facility] Interpretation and review of laboratory results Normal [facility] Potassium [Moles/Vol] 3.7 mmol/L 3.5 - 5.1 mmol/L [facility] Sodium [Moles/Vol] 138 mmol/L 135 - 145 mmol/L [facility] Urea nitrogen [Mass/Vol] 10 mg/dL 8 - 25 mg/dL [facility] Urea nitrogen/Creatinine [Mass ratio] 10.9 mg/mg 10.0 - 20.0 [facility] Laborator y Services has implemented the eGFR calculation approach that does not have a coefficient for race that conforms to the NKF-ASN Task Force Recommendations. [facility] COVID-19, MOLECULARon 2022 SARS-CoV-2 (COVID-19) RNA HUGH+probe Ql (Unsp spec) Not detected Normal Not Detected [facility] Comment on above: Order Comment: This test was performed under the FDA's Emergency Use Authorization (EUA). Testing was performed using the Angie SARS-CoV-2 RT-PCR Test on the [employer] System. This test has not been approved for use in asymptomatic patients and its performance in this patient population has not been evaluated. Negative results do not rule out the presence of SARS-CoV-2. Fact sheets for the EUA can be found at the following links: For Healthcare Providers: https://www.fda.gov/media/206244/download For Patients: https://www.fda.gov/media/495525/download Performed By: #### L [id number] #### [facility] [address], [place] [address] Estuadro Dean M.D. [id number] COVID-19, MolecularOrdered B y: Lizz Suarez on 12-20-2022 SARS-CoV-2 (COVID-19) RNA HUGH+probe Ql (Resp) Not detected Not Detected [facility] Ethanol [Mass/Vol]on 023 Interpretation and review of laboratory results Normal [facility] HCG ( test) Ql (U)O rdered By: Brad Trevino on 12-20-2022 Interpretation and review of laboratory results Normal [facility] Lipid 1996 panelon 3 Cholesterol [Mass/Vol] 158 mg/dL 100 - 199 mg/dL [facility] Comment on above: National Cholesterol Education Program Guidelines: Cholesterol Desirable: <200 mg/dL Borderline High: 200-239 mg/dL High: greater than or equal to 240 mg/dL Cholesterol in HDL [Mass/Vol] 31 mg/dL Low 40 - 59 mg/dL [facility] Comment on above: National Cholesterol Education Program Guidelines: HDL Cholesterol Low: <40 mg/dL Near Optimal: 40-59 mg/dL High: greater than or equal to 60 mg/dL Cholesterol in LDL [Mass/Vol] 79 mg/dL 10 - 130 mg/dL [facility] Comment on above: National Cholesterol Education Program Guidelines: LDL Cholesterol Optimal: <100 mg/dL Near Optimal/above Optimal: 100-129 mg/dL Borderline High: 130-159 mg/dL High: 160-189 mg/dL Very High: greater than or equal to 190 mg/dL Cholesterol non HDL [Mass/Vol] 127 mg/dL [facility] Comment on above: National Cholesterol Education Program Guidelines: NON HDL Cholesterol Desirable: <130 mg/dL Borderline High: 130-159 mg/dL High: 160-189 mg/dL Very High: > or = 190 mg/dL Cholesterol.total/Chol esterol in HDL [Mass ratio] 5.1 {ratio} ratio [facility] Comment on above: Female Cholesterol/H DL Ratio: Average risk: 4.4 1/2 average risk: 3.3 2 x average risk: 7.1 Interpretation and review of laboratory results Abnormal [facility] Triglyceride [Mass/Vol] 239 mg/dL High 30 - 150 mg/dL [facility] Comment on above: National Cholesterol Education Program Guidelines: Triglyceride Normal: <150 mg/dL Borderline High: 150-199 mg/dL High: 200-499 mg/dL Very High: greater than or equal to 500 mg/dL No Panel Informationon 12-20 [facility] SARS-CoV-2 (COVID-19) RNA NA A+probe Ql (Resp)Ordered By: Lizz Suarez on 12-20-2022 Interpretation and review of laboratory results Normal [facility] This test was performed under the FDA's Emergency Use Authorization (EUA). Testing was performed using the Angie SARS-CoV-2 RT-PCR Test on the [employer] System. This test has not been approved for use in asymptomatic patients and its performance in this patient population has not been evaluated. Negative results do not rule out the presence of SARS-CoV-2. Fact sheets for the EUA can be found at the following links: For Healthcare Providers: https://www.fda.gov/me jones/021782/download For Patients: https://www.fda.gov/ia jones/972468/download [facility] TSH DL <= 0.005 mIU/L Qnon 0 12-20-2022 Interpretation and review of laboratory results Normal [facility] TSH Qn 1.77 m[IU]/L [facility] Urinalysison 12-20-2022 Bacteria Auto Ql (U) None Seen None Se en /hpf [facility] Bilirubin Ql (U) Negative Negative [facility] Clarity Refractometry automated (U) Cloudy Abnormal Clear [facility] Color (U) Yellow Colorless, Yellow [facility] Crystals.amorphous Computer assisted (U) [#/Area] Few Abnormal None Seen, Rare /hpf [facility] Epithelial cells.squamous Auto (Urine sed) [#/Area] 6 High [facility] Glucose Auto test strip (U) [Mass/Vol] Negative Negative mg/dL [facility] Hemoglobin Auto test strip Ql (U) Small Abnormal Negative [facility] Interpretation and review of laboratory results Abnormal [facility] Ketones (U) [Mass/Vol] Negative Negat jackson mg/dL [facility] Leukocyte esterase Auto test strip Ql (U) Large Abnormal Negative [facility] h Mucus Auto (Urine sed) [#/Area] Few Abnormal None Seen, Rare /lpf [facility] Nitrite Auto test strip Ql (U) Negative Negative [facility] pH (U) 5.5 [pH] 5.0 - 7.0 [facility] Protein (U) [Mass/Vol] Negative Negat jackson mg/dL [facility] RBC Auto (Urine sed) [#/Area] 4 High [facility] Specific gravity (U) [Rel density] 1.025 1.005 - 1.025 [facility] Transitional cells Computer assisted (U) [#/Area] 1 [facility] Urobilinogen (U) [Mass/Vol] mg/dL NINF - 2.0 mg/dL [facility] WBC Auto (Urine sed) [#/Area] 24 High [facility] Microscopic examination is performed on all urinalysis samples and only positive findings are reported. The test for blood on the chemical analytic portion of urinalysis may also be positive due to hemoglobinuria and myoglobinuria and if red blood cells are present they are quantified by microscopic examination. [facility] Urine Drug Screenon 12-20-19 23 Amphetamines Ql (U) Not detected None Detected [facility] Comment on above: Urine Amphetamine Cu toff: < 1000 ng/mL = None Detected Barbiturates Screen Ql (U) Not detected None Detected [facility] Comment on above: Urine Barbiturates C utoff: < 200 ng/mL = None Detected Benzodiazepines Ql (U) Not detected None Detect ed [facility] Comment on above: Urine Benzodiazepine Cutoff: < 200 ng/mL = None Detected Buprenorphine Ql (U) Not detected None Detected [facility] Comment on above: Urine Buprenorphine Cutoff: < 5 ng/mL = None Detected Cannabinoids Screen Ql (U) Not detected None Detected [facility] Comment on above: Urine Cannabinoids C utoff: < 50 ng/mL = None Detected Cocaine Ql (U) Not detected None Detected [facility] Comment on above: Urine Cocaine Cutoff : < 300 ng/mL = None Detected fentaNYL+Norfentanyl Screen Ql (U) Not detected None Detected [facility] Comment on above: Urine Fentanyl Cutof f: < 1 ng/mL = None Detected Interpretation and review of laboratory results Normal [facility] Methadone Screen Ql (U) Not detected None Detected [facility] Comment on above: Urine Methadone Cuto ff: < 300 ng/mL = None Detected Opiates Screen Ql (U) Not detected None Detecte d [facility] Comment on above: Urine Opiates Cutoff : < 300 ng/mL = None Detected oxyCODONE Ql (U) Not detected None Detected [facility] Comment on above: Urine Oxycodone Cuto ff: < 100 ng/mL = None Detected Screen results shoul d be used for treatment purposes only. [facility] Urine PregnancyOrdered By: Phyllis Trevino on 12-20-2022 HCG ( test) Ql (U) Negative Negative [facility] LABORATORYOrdered By: Greg Pollard on 05-08-2022 HIV 1 p24 Ab Ql (S) Non-Reactive (05/08/22 9:23 AM) Invalid Interpretation Code Non-Reactive AO Rapid Testing SS HIV 1+2 Ab IA.rapid Ql (Unsp spec) Non-Reactive (05/08/22 9:23 AM) Invalid Interpretation Code Non-Reactive AO Rapid Testing SS HIV P24 Int Non-Reactive Invalid Interpretation Code AO Rapid Testing SS RHIV 1/2 Ab Int Non-Reactive Invalid Interpretation Code AO Rapid Testing SS LABORATORYOrdered By: Amberly Franco on 01-30-2022 Basophil, Absolute 0.00 103/mcL Invalid Interpretation Code 0.00 - 0.19 10^3/mcL AO Auto Heme SS Basophils/100 WBC (Bld) 0.2 % Invalid Interpretation Code 0.0 - 2.5 % AO Auto Heme SS Eosinophil, Absolute 0.00 103/mcL Invalid Interpretation Code 0.00 - 0.40 10^3/mcL AO Auto Heme SS Eosinophils/100 WBC (Bld) 0.4 % Invalid Interpretation Code 0.0 - 7.0 % AO Auto Heme SS Erythrocyte distribution width (RBC) [Ratio] 15.3 % Invalid Interpretation Code 11.5 - 14.5 % AO Auto Heme SS Hematocrit (Bld) [Volume fraction] 26.9 % Invalid Interpretation Code 37.0 - 47.0 % AO Auto Heme SS Hemoglobin (Bld) [Mass/Vol] 8.8 G/dL Invalid Interpretation Code 12.0 - 16.0 G/dL AO Auto Heme SS Lymphocyte, Absolute 1.40 103/mcL Invalid Interpretation Code 0.77 - 3.85 10^3/mcL AO Auto Heme SS Lymphocytes/100 WBC (Bld) 15.3 % Invalid Interpretation Code 10.0 - 50.0 % AO Auto Heme SS MCH (RBC) [Entitic mass] 27.4 pg Invalid Interpretation Code 27.0 - 31.2 pg AO Auto Heme SS MCHC (RBC) [Mass/Vol] 32.7 G/dL Invalid Interpretation Code 33.0 - 37.0 G/dL AO Auto Heme SS MCV (RBC) [Entitic vol] 83.8 fL Invalid Interpretation Code 80.0 - 94.0 fL AO Auto Heme SS Monocyte, Absolute 0.80 103/mcL Invalid Interpretation Code 0.15 - 1.00 10^3/mcL AO Auto Heme SS Monocytes/100 WBC (Bld) 8.5 % Invalid Interpretation Code 1.7 - 13.0 % AO Auto Heme SS Neutrophil, Absolute 6.90 103/mcL Invalid Interpretation Code 2.85 - 6.16 10^3/mcL AO Auto Heme SS Neutrophils/100 WBC (Bld) 75.6 % Invalid Interpretation Code 37.0 - 80.0 % AO Auto Heme SS Platelet mean volume (Bld) [Entitic vol] 10.0 fL Invalid Interpretation Code 7.4 - 10.4 fL AO Auto Heme SS Platelets (Bld) [#/Vol] 213 103/mcL Invalid Interpretation Code 130 - 400 10^3/mcL AO Auto Heme SS RBC (Bld) [#/Vol] 3.21 106/mcL Invalid Interpretation Code 4.20 - 5.40 10^6/mcL AO Auto Heme SS WBC (Bld) [#/Vol] 9.20 103/mcL Invalid Interpretation Code 4.60 - 10.80 10^3/mcL AO Auto Heme SS LABORATORYOrdered By: Ileana Ordonez on 01-29-2022 ABO/Rh Interp AB POS Invalid Interpretation Code AO BB SS Antibody Screen Gel Negative ABSC (01/29/22 7:33 AM) Invalid Interpretation Code AO BB SS Basophil, Absolute 0.00 103/mcL Invalid Interpretation Code 0.00 - 0.19 10^3/mcL AO Auto Heme SS Basophils/100 WBC (Bld) 0.3 % Invalid Interpretation Code 0.0 - 2.5 % AO Auto Heme SS Eosinophil, Absolute 0.10 103/mcL Invalid Interpretation Code 0.00 - 0.40 10^3/mcL AO Auto Heme SS Eosinophils/100 WBC (Bld) 0.6 % Invalid Interpretation Code 0.0 - 7.0 % AO Auto Heme SS Erythrocyte distribution width (RBC) [Ratio] 14.8 % Invalid Interpretation Code 11.5 - 14.5 % AO Auto Heme SS Hematocrit (Bld) [Volume fraction] 30.4 % Invalid Interpretation Code 37.0 - 47.0 % AO Auto Heme SS Hemoglobin (Bld) [Mass/Vol] 10.4 G/dL Invalid Interpretation Code 12.0 - 16.0 G/dL AO Auto Heme SS Lymphocyte, Absolute 1.10 103/mcL Invalid Interpretation Code 0.77 - 3.85 10^3/mcL AO Auto Heme SS Lymphocytes/100 WBC (Bld) 13.4 % Invalid Interpretation Code 10.0 - 50.0 % AO Auto Heme SS MCH (RBC) [Entitic mass] 27.6 pg Invalid Interpretation Code 27.0 - 31.2 pg AO Auto Heme SS MCHC (RBC) [Mass/Vol] 34.0 G/dL Invalid Interpretation Code 33.0 - 37.0 G/dL AO Auto Heme SS MCV (RBC) [Entitic vol] 81.1 fL Invalid Interpretation Code 80.0 - 94.0 fL AO Auto Heme SS Monocyte, Absolute 0.50 103/mcL Invalid Interpretation Code 0.15 - 1.00 10^3/mcL AO Auto Heme SS Monocytes/100 WBC (Bld) 5.6 % Invalid Interpretation Code 1.7 - 13.0 % AO Auto Heme SS Neutrophil, Absolute 6.60 103/mcL Invalid Interpretation Code 2.85 - 6.16 10^3/mcL AO Auto Heme SS Neutrophils/100 WBC (Bld) 80.1 % Invalid Interpretation Code 37.0 - 80.0 % AO Auto Heme SS Platelet mean volume (Bld) [Entitic vol] 9.6 fL Invalid Interpretation Code 7.4 - 10.4 fL AO Auto Heme SS Platelets (Bld) [#/Vol] 238 103/mcL Invalid Interpretation Code 130 - 400 10^3/mcL AO Auto Heme SS RBC (Bld) [#/Vol] 3.75 106/mcL Invalid Interpretation Code 4.20 - 5.40 10^6/mcL AO Auto Heme SS WBC (Bld) [#/Vol] 8.20 103/mcL Invalid Interpretation Code 4.60 - 10.80 10^3/mcL AO Auto Heme SS LABORATORYOrdered By: Yulisa Mcgrath on 01-10-2022 Calcium [Mass/Vol] 9.0 mg/dL Invalid Interpretation Code 8.4 - 10.2 mg/dL AO ADM SS Chloride [Moles/Vol] 106 mmol/L Invalid Interpretation Code 98 - 107 mmol/L AO ADM SS CO2 [Moles/Vol] 20 mmol/L Invalid Interpretation Code 22 - 29 mmol/L AO ADM SS Creatinine [Mass/Vol] 0.61 mg/dL Invalid Interpretation Code 0.55 - 1.02 mg/dL AO ADM SS Electrolyte Balance 12.0 mEq/L Invalid Interpretation Code 4.0 - 15.0 mEq/L AO ADM SS Glucose [Mass/Vol] 93 mg/dL Invalid Interpretation Code 70 - 105 mg/dL AO ADM SS Potassium [Moles/Vol] 4.0 mmol/L Invalid Interpretation Code 3.5 - 5.1 mmol/L AO ADM SS Sodium [Moles/Vol] 138 mmol/L Invalid Interpretation Code 136 - 145 mmol/L AO ADM SS Urea nitrogen [Mass/Vol] 9 mg/dL Invalid Interpretation Code 7 - 18 mg/dL AO ADM SS Urea nitrogen/Creatinine [Mass ratio] 15 ratio Invalid Interpretation Code 7 - 27 ratio AO ADM SS LABORATORYOrdered By: SYSTEM SYSTEM on 01-10-2022 GFR 152 ml/min/1.73sqm Invalid Interpretation Code AO Chemistry S GFR Non- 125 ml/min/1.73sqm Invalid Interpretation Code AO Chemistry S LABORATORYOrdered By: Barrington Thompson on 01-10-2022 Glucose [Mass/Vol] 112 mg/dL Invalid Interpretation Code 70 - 110 mg/dL [facility] Work Phone: LABORATORYOrdered By: Gwen Duvall on 01-10-2022 Group B Strep (PCR) Negative 1 (01/10/22 9:54 AM) Invalid Interpretation Code Negative AH Auto Viro/Sero SS Comment on above: Result Comment: Note s [id number] Group B Strep PCR Int Group B Streptococ cus DNA not detected by Real-Time Polymerase Chain Reaction (PCR). A negative result does rule out the possibility of Group B Streptococcus. False Negative results may occur when Group B Streptococcus concentration is below the level of detection. If the patient has signs or symptoms of infection, other laboratory tests and clinical information should be used to confirm the negative result. This test is not intended to differentiate carriers of Group B Streptococcus from those with Streptococcus disease. Invalid Interpretation Code AH Auto Viro/Sero SS LABORATORYOrdered By: Anya Lopes on 01-07-2022 Appearance (U) Slightly Cloudy *ABN* (01/07/22 1:19 PM) Invalid Interpretation Code Clear AO Auto Urine SS Bacteria LM.HPF (Urine sed) [#/Area] Trace /HPF Invalid Interpretation Code AO Auto Urine SS Bilirubin Ql (U) Negative (01/07/22 1:19 PM) Invalid Interpretation Code Negative AO Auto Urine SS Color (U) Yellow (01/07/22 1:19 PM) Invalid Interpretation Code AO Auto Urine SS Crystals.amorphous LM.HPF (Urine sed) [#/Area] Trace /HPF Invalid Interpretation Code AO Auto Urine SS Glucose Test strip (U) [Mass/Vol] Negative Invalid Interpretation Code Negativemg/dL AO Auto Urine SS Hemoglobin Auto test strip (U) [Mass/Vol] Negative (01/07/22 1:19 PM) Invalid Interpretation Code Negative AO Auto Urine SS Ketones Ql (U) Trace mg/dL Invalid Interpretation Code Negativemg/dL AO Auto Urine SS UA Leuk Est Negative (01/07/22 1:19 PM) Invalid Interpretation Code Negative AO Auto Urine SS UA Mucous 1+ /HPF Invalid Interpretation Code AO Auto Urine SS UA Nitrite Negative (01/07/22 1:19 PM) Invalid Interpretation Code Negative AO Auto Urine SS UA pH 7.0 (01/07/22 1:19 PM) Invalid Interpretation Code 5.0 - 8.0 AO Auto Urine SS UA Protein Trace mg/dL Invalid Interpretation Code Negativemg/dL AO Auto Urine SS UA RBC None Seen /HPF Invalid Interpretation Code None Seen/HPF AO Auto Urine SS UA Spec Grav 1.020 (01/07/22 1:19 PM) Invalid Interpretation Code 1.015-1.025 AO Auto Urine SS UA Specimen Type Clean Catch (01/07/22 1:19 PM) Invalid Interpretation Code AO Auto Urine SS UA Squam Epithelial 0-5 /HPF Invalid Interpretation Code None Seen/HPF AO Auto Urine SS UA Urobilinogen 1.0 E.U./dL Invalid Interpretation Code 0.2-1.0E.U./d L AO Auto Urine SS WBC LM.HPF (Urine sed) [#/Area] None Seen /HPF Invalid Interpretation Code None Seen/HPF AO Auto Urine SS LABORATORYOrdered By: Juan Alberto Givens on 12-13-2021 Appearance (U) Cloudy *ABN* (12/13/21 3:53 PM) Invalid Interpretation Code Clear AO Auto Urine SS Bacteria LM.HPF (Urine sed) [#/Area] 1 /[HPF] Invalid Interpretation Code AO Auto Urine SS Bilirubin Ql (U) Negative (12/13/21 3:53 PM) Invalid Interpretation Code Negative AO Auto Urine SS Color (U) Yellow (12/13/21 3:53 PM) Invalid Interpretation Code AO Auto Urine SS Glucose Test strip (U) [Mass/Vol] Negative Invalid Interpretation Code Negativemg/dL AO Auto Urine SS Hemoglobin Auto test strip (U) [Mass/Vol] Negative (12/13/21 3:53 PM) Invalid Interpretation Code Negative AO Auto Urine SS Ketones Ql (U) Negative Invalid Interpretation Code Negativemg/dL AO Auto Urine SS UA Leuk Est Negative (12/13/21 3:53 PM) Invalid Interpretation Code Negative AO Auto Urine SS UA Nitrite Negative (12/13/21 3:53 PM) Invalid Interpretation Code Negative AO Auto Urine SS UA pH 6.5 (12/13/21 3:53 PM) Invalid Interpretation Code 5.0 - 8.0 AO Auto Urine SS UA Protein Trace mg/dL Invalid Interpretation Code Negativemg/dL AO Auto Urine SS UA RBC 0-5 /HPF Invalid Interpretation Code None Seen/HPF AO Auto Urine SS UA Spec Grav 1.025 (12/13/21 3:53 PM) Invalid Interpretation Code 1.015-1.025 AO Auto Urine SS UA Specimen Type Clean Catch (12/13/21 3:53 PM) Invalid Interpretation Code AO Auto Urine SS UA Squam Epithelial LOADED /HPF Invalid Interpretation Code None Seen/HPF AO Auto Urine SS UA Urobilinogen 4.0 E.U./dL Invalid Interpretation Code 0.2-1.0E.U./d L AO Auto Urine SS WBC LM.HPF (Urine sed) [#/Area] 0-5 /HPF Invalid Interpretation Code None Seen/HPF AO Auto Urine SS LABORATORYOrdered By: Myron Cramer on 10-17-2021 Basophil, Absolute 0.00 103/mcL Invalid Interpretation Code 0.00 - 0.19 10^3/mcL AO Auto Heme SS Basophils/100 WBC (Bld) 0.2 % Invalid Interpretation Code 0.0 - 2.5 % AO Auto Heme SS Eosinophil, Absolute 0.10 103/mcL Invalid Interpretation Code 0.00 - 0.40 10^3/mcL AO Auto Heme SS Eosinophils/100 WBC (Bld) 1.0 % Invalid Interpretation Code 0.0 - 7.0 % AO Auto Heme SS Erythrocyte distribution width (RBC) [Ratio] 13.4 % Invalid Interpretation Code 11.5 - 14.5 % AO Auto Heme SS Hematocrit (Bld) [Volume fraction] 34.7 % Invalid Interpretation Code 37.0 - 47.0 % AO Auto Heme SS Hemoglobin (Bld) [Mass/Vol] 11.7 G/dL Invalid Interpretation Code 12.0 - 16.0 G/dL AO Auto Heme SS Lymphocyte, Absolute 1.30 103/mcL Invalid Interpretation Code 0.77 - 3.85 10^3/mcL AO Auto Heme SS Lymphocytes/100 WBC (Bld) 12.9 % Invalid Interpretation Code 10.0 - 50.0 % AO Auto Heme SS MCH (RBC) [Entitic mass] 28.7 pg Invalid Interpretation Code 27.0 - 31.2 pg AO Auto Heme SS MCHC (RBC) [Mass/Vol] 33.7 G/dL Invalid Interpretation Code 33.0 - 37.0 G/dL AO Auto Heme SS MCV (RBC) [Entitic vol] 85.1 fL Invalid Interpretation Code 80.0 - 94.0 fL AO Auto Heme SS Monocyte, Absolute 0.60 103/mcL Invalid Interpretation Code 0.15 - 1.00 10^3/mcL AO Auto Heme SS Monocytes/100 WBC (Bld) 5.6 % Invalid Interpretation Code 1.7 - 13.0 % AO Auto Heme SS Neutrophil, Absolute 7.90 103/mcL Invalid Interpretation Code 2.85 - 6.16 10^3/mcL AO Auto Heme SS Neutrophils/100 WBC (Bld) 80.3 % Invalid Interpretation Code 37.0 - 80.0 % AO Auto Heme SS Platelet mean volume (Bld) [Entitic vol] 9.9 fL Invalid Interpretation Code 7.4 - 10.4 fL AO Auto Heme SS Platelets (Bld) [#/Vol] 285 103/mcL Invalid Interpretation Code 130 - 400 10^3/mcL AO Auto Heme SS RBC (Bld) [#/Vol] 4.08 106/mcL Invalid Interpretation Code 4.20 - 5.40 10^6/mcL AO Auto Heme SS WBC (Bld) [#/Vol] 9.90 103/mcL Invalid Interpretation Code 4.60 - 10.80 10^3/mcL AO Auto Heme SS LABORATORYOrdered By: Myron Cramer on 09-19-2021 ALP [Catalytic activity/Vol] 98 U/L Invalid Interpretation Code 40 - 135 U/L AO ADM SS ALP [Catalytic activity/Vol] 97 U/L Invalid Interpretation Code 40 - 135 U/L AO ADM SS Bili Indirect Unable to Calculate Invalid Interpretation Code AO Chemistry S Comment on above: Result Comment: Unab le to calculate this test result accurately. Results used to calculate this test are outside the reportable range. Bilirubin.direct [Mass/Vol] mg/dL Invalid Interpretation Code 0.0 - 0.2 mg/dL AO ADM SS Calcium [Mass/Vol] 9.0 mg/dL Invalid Interpretation Code 8.4 - 10.2 mg/dL AO ADM SS Chloride [Moles/Vol] 104 mmol/L Invalid Interpretation Code 98 - 107 mmol/L AO ADM SS CO2 [Moles/Vol] 21 mmol/L Invalid Interpretation Code 22 - 29 mmol/L AO ADM SS Creatinine [Mass/Vol] 0.57 mg/dL Invalid Interpretation Code 0.55 - 1.02 mg/dL AO ADM SS Electrolyte Balance 13.0 mEq/L Invalid Interpretation Code AO ADM SS Globulin 3.3 G/dL Invalid Interpretation Code AO ADM SS Globulin 3.4 G/dL Invalid Interpretation Code AO ADM SS Glucose [Mass/Vol] 79 mg/dL Invalid Interpretation Code 70 - 105 mg/dL AO ADM SS Potassium [Moles/Vol] 4.0 mmol/L Invalid Interpretation Code 3.5 - 5.1 mmol/L AO ADM SS Protein [Mass/Vol] 6.6 G/dL Invalid Interpretation Code 6.4 - 8.2 G/dL AO ADM SS Protein [Mass/Vol] 6.7 G/dL Invalid Interpretation Code 6.4 - 8.2 G/dL AO ADM SS Sodium [Moles/Vol] 138 mmol/L Invalid Interpretation Code 136 - 145 mmol/L AO ADM SS Urea nitrogen [Mass/Vol] 7 mg/dL Invalid Interpretation Code 7 - 18 mg/dL AO ADM SS Urea nitrogen/Creatinine [Mass ratio] 12 ratio Invalid Interpretation Code 7 - 27 ratio AO ADM SS LABORATORYOrdered By: Anya Lopes on 09-19-2021 Appearance (U) Cloudy *ABN* (09/19/21 10:05 AM) Invalid Interpretation Code Clear AO Auto Urine SS Basophil, Absolute 0.00 103/mcL Invalid Interpretation Code 0.00 - 0.19 10^3/mcL AO Auto Heme SS Basophils/100 WBC (Bld) 0.4 % Invalid Interpretation Code 0.0 - 2.5 % AO Auto Heme SS Bilirubin Ql (U) Negative (09/19/21 10:05 AM) Invalid Interpretation Code Negative AO Auto Urine SS Color (U) Yellow (09/19/21 10:05 AM) Invalid Interpretation Code AO Auto Urine SS Crystals.amorphous LM.HPF (Urine sed) [#/Area] 2 /[HPF] Invalid Interpretation Code AO Auto Urine SS Eosinophil, Absolute 0.10 103/mcL Invalid Interpretation Code 0.00 - 0.40 10^3/mcL AO Auto Heme SS Eosinophils/100 WBC (Bld) 1.3 % Invalid Interpretation Code 0.0 - 7.0 % AO Auto Heme SS Erythrocyte distribution width (RBC) [Ratio] 13.1 % Invalid Interpretation Code 11.5 - 14.5 % AO Auto Heme SS Glucose Test strip (U) [Mass/Vol] Negative Invalid Interpretation Code Negativemg/dL AO Auto Urine SS Hematocrit (Bld) [Volume fraction] 33.4 % Invalid Interpretation Code 37.0 - 47.0 % AO Auto Heme SS Hemoglobin (Bld) [Mass/Vol] 11.2 G/dL Invalid Interpretation Code 12.0 - 16.0 G/dL AO Auto Heme SS Hemoglobin Auto test strip (U) [Mass/Vol] Negative (09/19/21 10:05 AM) Invalid Interpretation Code Negative AO Auto Urine SS Ketones Ql (U) Negative Invalid Interpretation Code Negativemg/dL AO Auto Urine SS Lymphocyte, Absolute 1.30 103/mcL Invalid Interpretation Code 0.77 - 3.85 10^3/mcL AO Auto Heme SS Lymphocytes/100 WBC (Bld) 12.1 % Invalid Interpretation Code 10.0 - 50.0 % AO Auto Heme SS MCH (RBC) [Entitic mass] 29.0 pg Invalid Interpretation Code 27.0 - 31.2 pg AO Auto Heme SS MCHC (RBC) [Mass/Vol] 33.6 G/dL Invalid Interpretation Code 33.0 - 37.0 G/dL AO Auto Heme SS MCV (RBC) [Entitic vol] 86.3 fL Invalid Interpretation Code 80.0 - 94.0 fL AO Auto Heme SS Monocyte, Absolute 0.60 103/mcL Invalid Interpretation Code 0.15 - 1.00 10^3/mcL AO Auto Heme SS Monocytes/100 WBC (Bld) 5.6 % Invalid Interpretation Code 1.7 - 13.0 % AO Auto Heme SS Neutrophil, Absolute 8.50 103/mcL Invalid Interpretation Code 2.85 - 6.16 10^3/mcL AO Auto Heme SS Neutrophils/100 WBC (Bld) 80.6 % Invalid Interpretation Code 37.0 - 80.0 % AO Auto Heme SS Platelet mean volume (Bld) [Entitic vol] 9.1 fL Invalid Interpretation Code 7.4 - 10.4 fL AO Auto Heme SS Platelets (Bld) [#/Vol] 285 103/mcL Invalid Interpretation Code 130 - 400 10^3/mcL AO Auto Heme SS RBC (Bld) [#/Vol] 3.87 106/mcL Invalid Interpretation Code 4.20 - 5.40 10^6/mcL AO Auto Heme SS UA Leuk Est Negative (09/19/21 10:05 AM) Invalid Interpretation Code Negative AO Auto Urine SS UA Mucous 2+ /HPF Invalid Interpretation Code AO Auto Urine SS UA Nitrite Negative (09/19/21 10:05 AM) Invalid Interpretation Code Negative AO Auto Urine SS UA pH 7.5 (09/19/21 10:05 AM) Invalid Interpretation Code 5.0 - 8.0 AO Auto Urine SS UA Protein Negative Invalid Interpretation Code Negativemg/dL AO Auto Urine SS UA RBC 0-5 /HPF Invalid Interpretation Code None Seen/HPF AO Auto Urine SS UA Spec Grav 1.025 (09/19/21 10:05 AM) Invalid Interpretation Code 1.015-1.025 AO Auto Urine SS UA Specimen Type Clean Catch (09/19/21 10:05 AM) Invalid Interpretation Code AO Auto Urine SS UA Squam Epithelial 5-10 /HPF Invalid Interpretation Code None Seen/HPF AO Auto Urine SS UA Urobilinogen 1.0 E.U./dL Invalid Interpretation Code 0.2-1.0E.U./d L AO Auto Urine SS WBC (Bld) [#/Vol] 10.60 103/mcL Invalid Interpretation Code 4.60 - 10.80 10^3/mcL AO Auto Heme SS WBC LM.HPF (Urine sed) [#/Area] None Seen /HPF Invalid Interpretation Code None Seen/HPF AO Auto Urine SS LABORATORYOrdered By: SYSTEM SYSTEM on 09-19-2021 GFR 164 ml/min/1.73sqm Invalid Interpretation Code AO Chemistry S GFR Non- 135 ml/min/1.73sqm Invalid Interpretation Code AO Chemistry S Laboratory - Chemistry and C hemistry - challengeOrdered By: Bianca Cramer on 09-19-2021 Albumin BCP dye [Mass/Vol] 3.3 G/dL Invalid Interpretation Code 3.5 - 5.0 G/dL AO ADM SS Albumin/Globulin [Mass ratio] 1.0 {ratio} Invalid Interpretation Code 1.1 - 2.5 ratio AO ADM SS ALT With P-5'-P [Catalytic activity/Vol] 68 U/L Invalid Interpretation Code 14 - 59 U/L AO ADM SS AST With P-5'-P [Catalytic activity/Vol] 28 U/L Invalid Interpretation Code 10 - 40 U/L AO ADM SS Bilirubin [Mass/Vol] 0.2 mg/dL Invalid Interpretation Code 0.2 - 1.0 mg/dL AO ADM SS No Panel Informationon 09-19 Culture Urine Culture results pending. [facility] Work Phone: XR Knee Complete Lefton 04-03 XR Knee Complete Left Exam Date/Time:05/01/2018 12:49 EDTReason for Exam:Pain, TraumaticReportLEFT KNEEADDITIONAL CLINICAL INFORMATION: Left knee pain.COMPARISON: None.FINDINGS: Four views of the left knee were obtained. No evidence of fracture,dislocation, or significant joint effusion.IMPRESSION:Un remarkable left knee. FINAL REPORT Dictated: 05/01/2018 2:03 pm Yordan Arellano MDSigned (Electronic Signature): 05/01/2018 2:03 pmSigned by: Yordan Arellano MD Technologist: TRD Normal [facility] CBC and Differentialon 06-11 Abs Baso 0.02 k/uL Normal 0.00-0.10 [facility] Comment on above: Performed By: #### C VICKY ANTONIO ####[facility] [id number] [phone] Abs Spencer 0.43 k/uL Normal 0.00-0.86 [facility] Comment on above: Performed By: #### C BCDIF, CMP ####[place] [address] Abs Neut 5.35 k/uL Normal 1.45-7.50 [facility] Comment on above: Performed By: #### C BCDIF, CMP ####[place] [address] Basophils/100 WBC Auto (Bld) 0.3 % Normal [facility] Comment on above: Performed By: #### C BCDIF, CMP ####[place] [address] Eosinophils 0.08 10*3/uL Normal 0.00-0.45 [facility] Comment on above: Performed By: #### C BCDIF, CMP ####[place] [address] Eosinophils/100 leukocytes 1.1 % Normal [facility] Comment on above: Performed By: #### C BCDIF, CMP ####[place] [address] Erythrocyte distribution width Auto Ratio (RBC) 12.8 % Normal 11.5-15.0 [facility] Comment on above: Performed By: #### C BCDIF, CMP ####[place] [address] Erythrocytes (RBC) 4.58 10*6/uL Normal 3.90-5.20 [facility] Comment on above: Performed By: #### C BCDIF, CMP ####[place] [address] Hematocrit (HCT) 38.9 % Normal 36.0-46.0 [facility] Comment on above: Performed By: #### C BCDIF, CMP ####[place] [address] Hemoglobin mass conc (Bld) 13.2 g/dL Normal 11.5-15.5 [facility] Comment on above: Performed By: #### C BCDIF, CMP ####[place] [address] Lymphocytes 1.62 10*3/uL Normal 1.00-4.00 [facility] Comment on above: Performed By: #### C BCDIF, CMP ####[facility] [address] [place] [address] Lymphocytes/100 leukocytes 21.6 % Normal [facility] Comment on above: Performed By: #### C BCDIF, CMP ####[place] [address] MCH 28.8 pG Normal 26.0-34.0 [facility] Comment on above: Performed By: #### C BCDIF, CMP ####[facility] [address] [place] [address] MCHC mass conc (RBC) 33.9 g/dL Normal 30.5-36.0 [facility] Comment on above: Performed By: #### C BCDIF, CMP ####[place] [address] MCV 84.9 fL Normal 80.0-100.0 [facility] Comment on above: Performed By: #### C BCDIF, CMP ####[place] [address] Monocytes/100 leukocytes 5.7 % Normal [facility] Comment on above: Performed By: #### C BCDIF, CMP ####[place] [address] Neutrophils/100 WBC Auto (Bld) 71.3 % Normal [facility] Comment on above: Performed By: #### C BCDIF, CMP ####[place] [address] Platelet mean volume (PMV) 9.8 fL Normal 9.0-12.7 [facility] Comment on above: Performed By: #### C BCDIF, CMP ####[place] [address] Platelets 330 10*3/uL Normal 150-400 [facility] Comment on above: Performed By: #### C BCDIF, CMP ####[place] [address] WBC (Leukocytes) 7.50 10*3/uL Normal 3.70-11.00 [facility] Comment on above: Performed By: #### C BCDIF, CMP ####[facility] [address] [place] [address] Comp Metabolic Panelon 06-11 Alanine aminotransferase (ALT) 17 U/L Normal 0-45 [facility] Comment on above: Performed By: #### C BCDIF, CMP ####[facility] [address] [place] [address] Albumin 4.5 g/dL Normal 3.5-5.0 [facility] Comment on above: Performed By: #### C BCDIF, CMP ####[facility] [address] [place] [address] Alkaline phosphatase (ALP) 69 U/L Normal 40-195 [facility] Comment on above: Performed By: #### C BCAMBROCIOF, CMP ####[place] [address] Anion gap 11 mmol/L Normal 0-15 [facility] Comment on above: Performed By: #### C BCAMBROCIOF CMP ####[place] [address] Aspartate aminotransferase (AST) 16 U/L Normal 7-40 [facility] Comment on above: Performed By: #### C BCDIF, CMP ####[place] [address] Bilirubin (total) 0.4 mg/dL Normal 0.0-1.5 [facility] Comment on above: Performed By: #### C BCDIF, CMP ####[place] [address] Calcium 9.0 mg/dL Normal 8.5-10.5 [facility] Comment on above: Performed By: #### C BCDIF, CMP ####[facility] [address] [place] [address] Chloride 103 mmol/L Normal 98-110 [facility] Comment on above: Performed By: #### C BCDIF, CMP ####[facility] [address] [place] [address] CO2 23 mmol/L Normal 23-32 [facility] Comment on above: Performed By: #### C BCDIF, CMP ####[facility] [address] [place] [address] Creatinine 0.69 mg/dL Normal 0.40-1.30 [facility] Comment on above: Performed By: #### C VICKY ANTONIO ####[facility] [address] [place] [address] eGFR (non-black) 0.80 mL/min/{1.73_m2} Normal [facility] Comment on above: Result Comment: eGFR (Estimated GFR) Units of measure: mL/min/1.73 meters squaredeGFR in pediatric patients is derived from the 4 variable Dias equation for glomerular filtration rate (GFR) based on a stable serum creatinine, gender, age, and height. The creatinine assay has been calibrated to be traceable to IDMS.TO CALCULATE THE PATIENT'S ESTIMATED GFR: Multiply the GFR Pediatric Factor by the patient's height (centimeters).An eGFR <60 mL/min/1.73m2 for >3 months is consistent with chronic kidney disease. Refer to KDOQI guidelines for clinical interpretation. Performed By: #### C PACO CMP ####[place] [address] Glucose mass conc 88 mg/dL Normal 65-100 [facility] Comment on above: Performed By: #### Shivani ANTONIO CMP ####[place] [address] Potassium molar conc 4.2 mmol/L Normal 3.5-5.0 [facility] Comment on above: Performed By: #### C PACO CMP ####[place] [address] Protein 7.0 g/dL Normal 6.0-8.4 [facility] Comment on above: Performed By: #### C BCAMBROCIOF CMP ####[place] [address] Sodium 137 mmol/L Normal 132-148 [facility] Comment on above: Performed By: #### C BCJALIL CMP ####[place] [address] Urea nitrogen 9 mg/dL Normal 5-20 [facility] Comment on above: Performed By: #### C BCAMBROCIOF CMP ####[place] [phone] ED NOTEon 06-11-2017 ED NOTE HNO ID: [id number]: Lorena (Rn) BRAVO Osmanervice: (none)Author Type: Registered NurseType: ED NotesFiled: 06/11/2017 1:50 PMNote Text: Pt discharged to home with mom. Discharge Instructions/ RX x 1/ Follow upInstructions reviewed with mom with teach back method completed. [facility] ED NOTE HNO ID: [id number] Author: Lisa (Rn) Lorne Xiong RN Service: (none) Author Type: Registered Nurse Type: ED Notes Filed: 06/11/2017 11:31 AM Note Text: Had jennifer horn developed nausea had rt upper quad pain 2 hrs after [facility] ED PROV NOTEon 06-11-2017 ED PROV NOTE HNO ID: [id number]: Krystal Griffiths) Damone: (none)Author Type: Physician AssistantType: ED Provider NotesFiled: 06/11/2017 1:40 PMNote Text:ED Provider NotePatient Name: Martita ArthurN: [id number] DATE: 06/11/17HistoryPatient presents with:Abdominal Pain: rt upper quad since 2 hr post cheeseburger 06/10HP Comments: 17-year-old female, with a history of asthma, presents forright-sided flank/rib pain. She states yesterday she noticed it lastnight however more so this morning. Started a couple of hours after shehad done the time twirling practice. The pain was increased this morningwhen she tried to practice again. It's mostly tender on palpation to theright lateral rib area. Mother was concerned because when she ate acheeseburger last night the pain was also more noticeable. However shehas no vomiting, diarrhea, urinary symptoms, fever or chills.History provided by: Patient and parentPAST MEDICAL HISTORYDiagnosis Date- Asthma- Concussion 10/12 seizure like activity, knocked out. hit head on kyung totter- Left ankle sprain 05/12- Menarche 8-2011 Age 12- Multiple allergies Allergy injections- Pineal hyperplasia, insulin-resistant diabetes mellitus and somaticabnormalities (HCC)- PMH - PAST MEDICAL HISTORY OF was addicted to cocaine at . Was on drugs for AIDS d/t mom testingpositive.PAST SURGICAL HISTORYNo date: ADENOIDECTOMY HX11/: APPENDECTOMYNo date: MYRINGOTOMY HXNo date: PAST SURGICAL HISTORY OF Comment: tubes in ears x 4No date: PAST SURGICAL HISTORY OF Comment: adnoidectomyFAMILY HISTORY aids [OTHER] Mother Comment: biological mom passed awaySocial History Marital status: Single Spouse name: Years of education: Number of children:Social History Main Topics Smoking status: Passive Smoke Exposure - Never Smoker Packs/day: 0.00 Years: 0.00 Smokeless status: Never Used Comment: brother smokes outside Alcohol use: No Drug use: No Sexual activity: NoALLERGIESAllergen Reactions- Omnicef [Cefdinir] Other: See Comments Dizziness, feeling not right- Penicillins Rash- Prozac [Fluoxetine * Other: See Comments Tongue, face and throat swelling- Seasonal Allergies Other: See Comments Sneezing,itchy eyes, cough, wheezingReview of SystemsConstitutional: Negative for chills and fever.HENT: Negative.Eyes: Negative for photophobia and visual disturbance.Respirator y: Negative for cough and shortness of breath.Cardiovascular: Negative for chest pain.Gastrointestinal: Positive for nausea (intermittent). Negative forabdominal pain, constipation, diarrhea and vomiting.Genitourinary : Negative for difficulty urinating, dysuria and flank pain.Musculoskeletal: Right rib painSkin: Negative for rash.Neurological: Negative for weakness, light-headedness and headaches.Physical ExamBP 115/74 Pulse 64 Temp (Src) 97.7 (Oral) Resp 16 Ht 4' 8 (1.42m) Wt 130 lb (59.0kg) SpO2 100% LMP 05/22/2017 BMI 29.16 kg/(m2).Physical ExamConstitutional: She is oriented to person, place, and time. She appearswell-developed and well-nourished. No distress.Well appearing female in NADHENT:Head: Normocephalic and atraumatic.Eyes: Conjunctivae are normal.Neck: Normal range of motion. Neck supple.Cardiovascular: Normal rate, regular rhythm and normal heart sounds.Pulmonary/Chest : Effort normal and breath sounds normal. No respiratorydistress. She has no wheezes. She has no rales.Abdominal: Soft. Bowel sounds are normal. There is no tenderness (negativemurphys). There is no rebound and no guarding.Musculoskelet al:Patient has palpable tenderness to the right lateral rib area. It isworse with movement.Neurological: She is alert and oriented to person, place, and time. Nocranial nerve deficit.Skin: No rash noted.Psychiatric: She has a normal mood and affect.Nursing note and vitals reviewed.Diagnostic TestingED Labs Ordered and ReviewedURINALYSIS - Abnormal; Notable for the following: Result Value Ref Range Protein, Urine Trace (*) Negative mg/dL All other components within normal limitsCBC + DIFFCOMP METABOLIC PANELHCG QUAL URHCG URINE - ED(POC)CXR: without rib fracture or infiltrateProcedures-n oneMedical Decision Making / ED CoursePatient presents to the emergency department for right-sided rib pain.Started yesterday after baton twirling and was worsened today when shetried to but time poorly again. She also had some pain after acheeseburger so mother was concerned maybe there is a gallbladdercomponent. However no vomiting diarrhea or feverOn examination she is in no distress. She has no abdominal pain. She istender to the right lateral rib area. Chest x-ray normal for anyinfiltrate or rib fracture. Her labs are unremarkable including LFTs I donot feel an ultrasound would be of benefit. She will be discharged homewith Rosetta and will follow with her bolt loader.ED CourseEncounter Diagnosis ICD-10-CM1. Chest wall contusion, right, initial encounter S20.211APlanThe Patient was DISCHARGED: Counseled patient and mother regarding labresults AND radiology results AND suspected diagnosis AND need for follow-up.Discharged home with verbal and written instructions. They wereinstructed to return as needed for persistent or worsening symptoms or anynew concerns.Condition at time of disposition: improvedSIGNATURE: NABEEL Aburto-Elena Ulloa (Nabeel) Iwbclbb79/11/17 1340 Normal [facility] HCG Qual, Urineon 06-11-2017 HCG.beta subunit ( test) Ql (U) Negative Normal Negative [facility] Comment on above: Result Comment: Fals e positives and false negatives are rare but have been described. Clinical correlation of the findings is recommended. Performed By: #### U HCG, UA ####[facility] [address] [place] [address] Urinalysison 06-11-2017 Bilirubin, Urine Negative Normal Negative [facility] Comment on above: Performed By: #### U HCG, UA ####[facility] [address] [place] [address] Hemoglobin mass conc (Bld) Negative Normal Negative [facility] Comment on above: Performed By: #### U HCG, UA ####[facility] [address] [place] [address] Leukest Negative Normal Negative [facility] Comment on above: Performed By: #### U HCG, UA ####[facility] [address] [place] [address] pH of blood 6.5 [pH] Normal 5.0-8.0 [facility] Comment on above: Performed By: #### U HCG, UA ####[place] [address] Protein, Urine Trace Critically abnormal Negative [facility] Comment on above: Performed By: #### U HCG, UA ####[facility] [address] [place] [address] Specific Cap[place], Ur 1.015 Normal 1.001-1.029 [facility] Comment on above: Performed By: #### U HCG, UA ####[facility] [address] [place] [address] Urine, clarity Clear Normal Clear [facility] Comment on above: Performed By: #### U HCG, UA ####[facility] [address] [place] [address] Urine, color Yellow Normal Yellow [facility] Comment on above: Performed By: #### U HCG, UA ####[facility] [address] [place] [address] Urine, glucose presence Negative Normal Negative [facility] Comment on above: Performed By: #### U HCG, UA ####[facility] [address] [place] [address] Urine, ketones presence Negative Normal Negative [facility] Comment on above: Performed By: #### U HCG, UA ####[facility] [address] [place] [address] Urine, nitrite presence Negative Normal Negative [facility] Comment on above: Performed By: #### U HCG, UA ####[facility] [address] [place] [id number] Urine, urobilinogen 0.2 Normal 0.2-1.0 [facility] Comment on above: Performed By: #### U HCG, UA ####[facility] [phone] XR CHEST AP PORTABLEon 06-11 XR CHEST AP PORTABLE * * *Final Report* * *DATE OF EXAM: Jun 11 2017 1:08PM MDX 2133 - XR CHEST AP PORTABLE / REASON: Rib pain * * * * Physician Interpretation * * * * EXAMINATION: CHEST RADIOGRAPH (PORTABLE SINGLE VIEW AP)Exam Date/Time: 06/11/2017 1:08 PMClinical History: Rib pain, chest tightness started yesterdayM: [id number]: None availableRESULT:See impression.IMPRESSION: Lines, tubes, and devices: None.Lungs and pleura: No focal consolidation. No pleural effusion. No pulmonary edema. No pneumothorax.Cardiomed iastinal silhouette: Normal cardiomediastinal silhouette.Other: Bones are unremarkable.Transcrip tionist: PSCB Transcribe Date/Time: Jun 11 2017 1:09PDictated by : DEVIN NIETO MDThieber examination was interpreted and the report reviewed and electronically signed by: NAVNEET WHITE MD on Jun 11 2017 1:31PM EST Normal [facility] Vital Signs Date Time Vital Sign Value Performing Clinician Facility 03-20-2025 14:17-0400 Diastolic blood pressure 77 mm[Hg] Magda Gilles Work Phone: [facility] 03-20-2025 14:17-0400 Heart rate 61 /min Magda Gilles Work Phone: [facility] 03-20-2025 14:17-0400 Respiratory rate 16 /min Magda Gilles Work Phone: [facility] 03-20-2025 14:17-0400 SaO2% (BldA) [Mass fraction] 98 % Magda Gilles Work Phone: [facility] [employer] 03-20-2025 14:17-0400 Systolic blood pressure 127 mm[Hg] Magda Kelly Work Phone: [facility] [employer] 03-20-2025 13:28-0400 Body temperature 98.1 [degF] Magda Kelly Work Phone: [facility] [employer] 08-24-2024 17:43-0400 Diastolic Blood Pressure Non-Invasive 77 mm[Hg] ANGI FROMMELT DO [facility] 08-24-2024 17:43-0400 Heart rate 72 /min ANGI FROMMELT DO [facility] 08-24-2024 17:43-0400 Respiratory rate 16 /min ANGI FROMMELT DO [facility] 08-24-2024 17:43-0400 Systolic Blood Pressure Non-Invasive 124 mm[Hg] ANGI FROMMELT DO [facility] 08-24-2024 15:59-0400 Body height 142.2 cm ANGI FROMMELT DO [facility] 08-24-2024 15:59-0400 Body temperature 97.16 [degF] ANGI FROMMELT DO [facility] 08-24-2024 15:59-0400 Body weight 79.5 kg ANGI FROMMELT DO [facility] 08-24-2024 15:59-0400 Diastolic Blood Pressure Non-Invasive 88 mm[Hg] ANGI FROMMELT DO [facility] 08-24-2024 15:59-0400 Heart rate 76 /min ANGI FROMMELT DO [facility] 08-24-2024 15:59-0400 Respiratory rate 20 /min ANGI FROMMELT DO [facility] 08-24-2024 15:59-0400 Systolic Blood Pressure Non-Invasive 143 mm[Hg] ANGI VELOZ DO [facility] 06-23-2024 16:30-0400 Blood Pressure Location PAMELA MARY MD [facility] 06-23-2024 16:30-0400 Blood Pressure Method PAMELA MARY MD [facility] 06-23-2024 16:30-0400 Diastolic Blood Pressure Non-Invasive 72 mm[Hg] PAMELA MARY MD [facility] 06-23-2024 16:30-0400 Heart rate 74 /min PAMELA MARY MD [facility] 06-23-2024 16:30-0400 Respiratory rate 18 /min PAMELA MARY MD [facility] 06-23-2024 16:30-0400 Systolic Blood Pressure Non-Invasive 124 mm[Hg] PAMELA MARY MD [facility] 06-23-2024 14:12-0400 Blood Pressure Location PAMELA MARY MD [facility] 06-23-2024 14:12-0400 Blood Pressure Method PAMELA MARY MD [facility] 06-23-2024 14:12-0400 Body temperature 98.6 [degF] PAMELA MARY MD [facility] 06-23-2024 14:12-0400 Diastolic Blood Pressure Non-Invasive 86 mm[Hg] PAMELA MARY MD [facility] 06-23-2024 14:12-0400 Heart rate 86 /min PAMELA MARY MD [facility] 06-23-2024 14:12-0400 Respiratory rate 18 /min PAMELA MARY MD [facility] 06-23-2024 14:12-0400 Systolic Blood Pressure Non-Invasive 134 mm[Hg] PAMELA MARY MD [facility] 06-11-2024 11:55-0400 Body temperature 98.2 [degF] David Carreon MECHATRONICS TECHNICIAN.[employer]AMENT ME[employer]AN[employer] Work Phone: [facility] 06-11-2024 11:55-0400 Body weight 76.2 kg David Carreon MECHATRONICS TECHNICIAN.[employer] ME[employer] Work Phone: [facility] 06-11-2024 11:55-0400 Diastolic blood pressure 70 mm[Hg] David Carreon MECHATRONICS TECHNICIAN.[employer] Work Phone: [facility] 06-11-2024 11:55-0400 Heart rate 103 /min David Carreon MECHATRONICS TECHNICIAN.[employer] ME[employer] Work Phone: [facility] 06-11-2024 11:55-0400 Respiratory rate 16 /min David Carreon MECHATRONICS TECHNICIAN.[employer] ME[employer] Work Phone: [facility] 06-11-2024 11:55-0400 SaO2% (BldA) [Mass fraction] 99 % David Carreon MECHATRONICS TECHNICIAN.[employer]AM[employer] ME[employer] Work Phone: [facility] 06-11-2024 11:55-0400 Systolic blood pressure 116 mm[Hg] David Carreon MECHATRONICS TECHNICIAN.[employer] Work Phone: [facility] 05-09-2024 01:01-0400 Blood Pressure Location LISA RAUSCH MD [facility] 05-09-2024 01:01-0400 Blood Pressure Method LISA RAUSCH MD [facility] 05-09-2024 01:01-0400 Body height 142.2 cm LISA RAUSCH MD [facility] 05-09-2024 01:01-0400 Body temperature 97.52 [degF] LISA RAUSCH MD [facility] 05-09-2024 01:01-0400 Body weight 77.3 kg LISA RAUSCH MD [facility] 05-09-2024 01:01-0400 Diastolic Blood Pressure Non-Invasive 86 mm[Hg] LISA RAUSCH MD [facility] 05-09-2024 01:01-0400 Heart rate 76 /min LISA RAUSCH MD [facility] 05-09-2024 01:01-0400 Respiratory rate 16 /min LISA RAUSCH MD [facility] 05-09-2024 01:01-0400 Systolic Blood Pressure Non-Invasive 134 mm[Hg] LISA RAUSCH MD [facility] 05-08-2024 15:35-0400 Body height 142.2 cm ELOY LUCERO MD [facility] 05-08-2024 15:35-0400 Body temperature 98.6 [degF] ELOY LUCERO MD [facility] 05-08-2024 15:35-0400 Body weight 77 kg ELOY LUCERO MD [facility] 05-08-2024 15:35-0400 Diastolic Blood Pressure Non-Invasive 73 mm[Hg] ELOY LUCERO MD [facility] 05-08-2024 15:35-0400 Heart rate 82 /min ELOY LUCERO MD [facility] 05-08-2024 15:35-0400 Respiratory rate 14 /min ELOY LUCERO MD [facility] 05-08-2024 15:35-0400 Systolic Blood Pressure Non-Invasive 131 mm[Hg] ELOY LUCERO MD [facility] 04-17-2024 00:01-0400 Diastolic blood pressure 82 mm[Hg] LISA RAUSCH MD [facility] 04-17-2024 00:01-0400 Heart rate 65 /min LISA RAUSCH MD [facility] 04-17-2024 00:01-0400 Respiratory rate 18 /min LISA RAUSCH MD [facility] 04-17-2024 00:01-0400 Systolic blood pressure 133 mm[Hg] LISA RAUSCH MD [facility] 04-16-2024 22:44-0400 Diastolic Blood Pressure Non-Invasive 81 mm[Hg] LISA RAUSCH MD [facility] 04-16-2024 22:44-0400 Heart rate 78 /min LISA RAUSCH MD [facility] 04-16-2024 22:44-0400 Respiratory rate 20 /min LISA RAUSCH MD [facility] 04-16-2024 22:44-0400 Systolic Blood Pressure Non-Invasive 120 mm[Hg] LISA RAUSCH MD [facility] 04-16-2024 16:23-0400 Body temperature 98.24 [degF] LISA RAUSCH MD [facility] 04-16-2024 16:23-0400 Body weight 77.1 kg LISA RAUSCH MD [facility] 04-16-2024 16:23-0400 Diastolic Blood Pressure Non-Invasive 83 mm[Hg] LISA RAUSCH MD [facility] 04-16-2024 16:23-0400 Heart rate 94 /min LISA RAUSCH MD [facility] 04-16-2024 16:23-0400 Respiratory rate 20 /min LISA RAUSCH MD [facility] 04-16-2024 16:23-0400 Systolic Blood Pressure Non-Invasive 133 mm[Hg] LISA RAUSCH MD [facility] 03-07-2024 19:57-0400 Diastolic Blood Pressure Non-Invasive 82 mm[Hg] ELOY LUCERO MD [facility] 03-07-2024 19:57-0400 Heart rate 85 /min ELOY LUCERO MD [facility] 03-07-2024 19:57-0400 Systolic Blood Pressure Non-Invasive 135 mm[Hg] ELOY LUCERO MD [facility] 03-07-2024 19:16-0400 Body height 142.2 cm ELOY LUCERO MD [facility] 03-07-2024 19:16-0400 Body temperature 98.78 [degF] ELOY LUCERO MD [facility] 03-07-2024 19:16-0400 Body weight 83.1 kg ELOY LUCERO MD [facility] 03-07-2024 19:16-0400 Diastolic Blood Pressure Non-Invasive 82 mm[Hg] ELOY LUCERO MD [facility] 03-07-2024 19:16-0400 Heart rate 135 /min ELOY LUCERO MD [facility] 03-07-2024 19:16-0400 Respiratory rate 18 /min ELOY LUCERO MD [facility] 03-07-2024 19:16-0400 Systolic Blood Pressure Non-Invasive 146 mm[Hg] ELOY LUCERO MD [facility] 11-13-2023 20:28-0500 Body temperature 98.24 [degF] ELOY LUCERO MD [facility] 11-13-2023 20:28-0500 Diastolic Blood Pressure Non-Invasive 63 mm[Hg] ELOY LUCERO MD [facility] 11-13-2023 20:28-0500 Heart rate 96 /min ELOY LUCERO MD [facility] 11-13-2023 20:28-0500 Respiratory rate 18 /min ELOY LUCERO MD [facility] 11-13-2023 20:28-0500 Systolic Blood Pressure Non-Invasive 127 mm[Hg] ELOY LUCERO MD [facility] 11-13-2023 19:20-0500 Reason For Taking VItal Signs ELOY LUCERO MD [facility] 11-13-2023 17:21-0500 Blood Pressure Location ELOY LUCERO MD [facility] 11-13-2023 17:21-0500 Blood Pressure Method ELOY LUCERO MD [facility] 11-13-2023 17:21-0500 Body temperature 98.78 [degF] ELOY LUCERO MD [facility] 11-13-2023 17:21-0500 Body weight 88.2 kg ELOY LUCERO MD [facility] 11-13-2023 17:21-0500 Diastolic Blood Pressure Non-Invasive 55 mm[Hg] ELOY LUCERO MD [facility] 11-13-2023 17:21-0500 Heart rate 83 /min ELOY LUCERO MD [facility] 11-13-2023 17:21-0500 Respiratory rate 18 /min ELOY LUCERO MD [facility] 11-13-2023 17:21-0500 Systolic Blood Pressure Non-Invasive 123 mm[Hg] ELOY LUCERO MD [facility] 11-06-2023 10:12-0500 Body height 142.2 cm [employer] Work Phone: [facility] [employer] 11-06-2023 10:12-0500 Body mass index (BMI) [Ratio] 43.27 kg/m2 [employer] PA-C Work Phone: [facility] [employer] 11-06-2023 10:12-0500 Body weight 87.54 kg [employer] PA-C Work Phone: [facility] [employer] 09-26-2023 08:01-0400 Body height 142.2 cm Miguelangel Green MD Work Phone: [facility] [employer] 09-26-2023 08:01-0400 Body mass index (BMI) [Ratio] 43.36 kg/m2 Miguelangel Green MD Work Phone: [facility] [employer] 09-26-2023 08:01-0400 Body weight 87.73 kg Miguelangel Green MD Work Phone: [facility] 09-26-2023 08:01-0400 Diastolic blood pressure 84 mm[Hg] Miguelangel Green MD Work Phone: [facility] 09-26-2023 08:01-0400 Heart rate 61 /min Miguelangel Green MD Work Phone: [facility] 09-26-2023 08:01-0400 Systolic blood pressure 126 mm[Hg] Miguelangel Green MD Work Phone: [facility] 09-20-2023 09:07-0400 Body temperature 97.59 [degF] Johana Resendez MD Work Phone: [facility] 09-20-2023 09:07-0400 Diastolic blood pressure 70 mm[Hg] Johana Resendez MD Work Phone: [facility] 09-20-2023 09:07-0400 Heart rate 83 /min Johana Resendez MD Work Phone: [facility] 09-20-2023 09:07-0400 SaO2% (BldA) [Mass fraction] 97 % Johana Resendez MD Work Phone: [facility] 09-20-2023 09:07-0400 Systolic blood pressure 103 mm[Hg] Johana Resendez MD Work Phone: [facility] 09-20-2023 08:30-0400 Respiratory rate 16 /min Johana Resendez MD Work Phone: [facility] 09-17-2023 16:47-0400 Body mass index (BMI) [Ratio] 43 kg/m2 Johana Resendez MD Work Phone: [facility] 09-17-2023 16:47-0400 Body weight 87 kg Johana Resendez MD Work Phone: [facility] 09-17-2023 16:13-0400 Body height 142.2 cm Johana Resendez MD Work Phone: [facility] 08-29-2023 13:47-0400 Body height 147.3 cm Stacy Alaniz CNP Work Phone: [facility] [employer] 08-29-2023 13:47-0400 Body mass index (BMI) [Ratio] 40.64 kg/m2 Stacy Alaniz CNP Work Phone: [facility] [employer] 08-29-2023 13:47-0400 Body weight 88.18 kg Stacy Alaniz CNP Work Phone: [facility] [employer] 08-29-2023 13:47-0400 Diastolic blood pressure 84 mm[Hg] Stacy Alaniz CNP Work Phone: [facility] [employer] 08-29-2023 13:47-0400 Heart rate 81 /min Stacy Alaniz CNP Work Phone: [facility] [employer] 08-29-2023 13:47-0400 Respiratory rate 20 /min Stacy Alaniz CNP Work Phone: [facility] [employer] 08-29-2023 13:47-0400 SaO2% (BldA) [Mass fraction] 99 % Stacy Alaniz CNP Work Phone: [facility] [employer] Comment on above: RA 08-29-2023 13:47-0400 Systolic blood pressure 120 mm[Hg] Stacy Alaniz CNP Work Phone: [facility] [employer] 08-19-2023 09:10-0400 Diastolic blood pressure 79 mm[Hg] Ciaran Fritz MD Work Phone: [facility] [employer] Comment on above: sitting up 08-19-2023 09:10-0400 Heart rate 80 /min Ciaran Fritz MD Work Phone: [facility] [employer] 08-19-2023 09:10-0400 Respiratory rate 16 /min Ciaran Fritz MD Work Phone: [facility] [employer] 08-19-2023 09:10-0400 SaO2% (BldA) [Mass fraction] 100 % Ciaran Fritz MD Work Phone: [facility] [employer] 08-19-2023 09:10-0400 Systolic blood pressure 128 mm[Hg] Ciaran Fritz MD Work Phone: [facility] [employer] Comment on above: sitting up 08-19-2023 08:53-0400 Body temperature 97.2 [degF] Ciaran Fritz MD Work Phone: [facility] [employer] 08-19-2023 08:24-0400 Body height 147.3 cm Ciaran Fritz MD Work Phone: [facility] [employer] 08-19-2023 08:24-0400 Body mass index (BMI) [Ratio] 40.55 kg/m2 Ciaran Fritz MD Work Phone: [facility] [employer] 08-19-2023 08:24-0400 Body weight 88 kg Ciaran Fritz MD Work Phone: [facility] [employer] 08-14-2023 13:31-0400 Body height 142.2 cm [employer] PA-C Work Phone: [facility] 08-14-2023 13:31-0400 Body mass index (BMI) [Ratio] 43.56 kg/m2 [employer] PA-C Work Phone: [facility] 08-14-2023 13:31-0400 Body weight 88.13 kg Mariella Hutchinson PA-C Work Phone: [facility] 08-14-2023 13:31-0400 Diastolic blood pressure 74 mm[Hg] Mariella Hutchinson PA-C Work Phone: [facility] 08-14-2023 13:31-0400 Heart rate 74 /min Mariella Hutchinson PA-C Work Phone: [facility] 08-14-2023 13:31-0400 SaO2% (BldA) [Mass fraction] 99 % Mariella Hutchinson PA-C Work Phone: [facility] 08-14-2023 13:31-0400 Systolic blood pressure 108 mm[Hg] Mariella Hutchinson PA-C Work Phone: [facility] [employer] 08-12-2023 13:21-0400 Body height 142.2 cm Miguelangel Green MD Work Phone: [facility] [employer] 08-12-2023 13:21-0400 Body mass index (BMI) [Ratio] 43.94 kg/m2 Miguelangel Green MD Work Phone: [facility] 08-12-2023 13:21-0400 Body weight 88.91 kg Miguelangel Green MD Work Phone: [facility] 08-12-2023 13:21-0400 Diastolic blood pressure 74 mm[Hg] Miguelangel Green MD Work Phone: [facility] 08-12-2023 13:21-0400 Heart rate 80 /min Miguelangel Green MD Work Phone: [facility] 08-12-2023 13:21-0400 Respiratory rate 16 /min Miguelangel Green MD Work Phone: [facility] 08-12-2023 13:21-0400 Systolic blood pressure 110 mm[Hg] Miguelangel Green MD Work Phone: [facility] 07-22-2023 12:42-0400 Body height 142.2 cm Belgica Strange MD Work Phone: [facility] 07-22-2023 12:42-0400 Body mass index (BMI) [Ratio] 43.27 kg/m2 Belgica Strange MD Work Phone: [facility] 07-22-2023 12:42-0400 Body weight 87.54 kg Belgica Strange MD Work Phone: [facility] 07-22-2023 12:42-0400 Diastolic blood pressure 87 mm[Hg] Belgica Strange MD Work Phone: [facility] 07-22-2023 12:42-0400 Heart rate 111 /min Belgica Strange MD Work Phone: [facility] 07-22-2023 12:42-0400 SaO2% (BldA) [Mass fraction] 98 % Belgica Strange MD Work Phone: [facility] 07-22-2023 12:42-0400 Systolic blood pressure 125 mm[Hg] Belgica Strange MD Work Phone: [facility] 07-20-2023 13:40-0400 Body temperature 98.8 [degF] Magda Guzman MECHATRONICS TECHNICIAN.ARMAMENT MECHANIC Work Phone: [facility] 07-20-2023 13:40-0400 Body weight 88.27 kg Magda Guzman MECHATRONICS TECHNICIAN.[employer] MECHAN[employer] Work Phone: [facility] 07-20-2023 13:40-0400 Diastolic blood pressure 80 mm[Hg] Magda Guzman MECHATRONICS TECHNICIAN.ARMAMENT MECHANIC Work Phone: [facility] 07-20-2023 13:40-0400 Heart rate 103 /min Magda Guzman MECHATRONICS TECHNICIAN.ARMAMENT MECHANIC Work Phone: [facility] 07-20-2023 13:40-0400 Respiratory rate 18 /min Magda Guzman MECHATRONICS TECHNICIAN.ARMAMENT MECHANIC Work Phone: [facility] 07-20-2023 13:40-0400 SaO2% (BldA) [Mass fraction] 99 % Magda Guzman MECHATRONICS TECHNICIAN.ARMAMENT MECHANIC Work Phone: [facility] 07-20-2023 13:40-0400 Systolic blood pressure 122 mm[Hg] Magda Guzman MECHATRONICS TECHNICIAN.[employer]AMENT MECHANIC Work Phone: [facility] 07-15-2023 14:13-0400 Body height 142.2 cm Miguelangel Green MD Work Phone: [facility] 07-15-2023 14:13-0400 Body mass index (BMI) [Ratio] 43.14 kg/m2 Miguelangel Green MD Work Phone: [facility] 07-15-2023 14:13-0400 Body weight 87.27 kg Miguelangel Green MD Work Phone: [facility] 07-15-2023 14:13-0400 Diastolic blood pressure 84 mm[Hg] Miguelangel Green MD Work Phone: [facility] 07-15-2023 14:13-0400 Heart rate 111 /min Miguelangel Green MD Work Phone: [facility] [employer] 07-15-2023 14:13-0400 Systolic blood pressure 130 mm[Hg] Miguelangel Green MD Work Phone: [facility] 06-19-2023 13:39-0400 Body height 142.[address] Work Phone: [facility] 06-19-2023 13:39-0400 Body mass index (BMI) [Ratio] 42.55 kg/m2 Ling Arriaga RD Work Phone: [facility] [employer] 06-19-2023 13:39-0400 Body weight 86.[address] Work Phone: [facility] 06-13-2023 12:21-0400 Body height 142.2 cm Miguelangel Green MD Work Phone: [facility] 06-13-2023 12:21-0400 Body mass index (BMI) [Ratio] 42.6 kg/m2 Miguelangel Green MD Work Phone: [facility] [employer] 06-13-2023 12:21-0400 Body weight 86.18 kg Miguelangel Green MD Work Phone: [facility] 06-13-2023 12:21-0400 Diastolic blood pressure 86 mm[Hg] Miguelangel Green MD Work Phone: [facility] 06-13-2023 12:21-0400 Heart rate 88 /min Miguelangel Green MD Work Phone: [facility] 06-13-2023 12:21-0400 Systolic blood pressure 122 mm[Hg] Miguelangel Green MD Work Phone: [facility] 05-31-2023 19:54-0400 Body height 142.[address] RAHUL PALACIOS MD [facility] 05-31-2023 19:54-0400 Body temperature 98.24 [degF] DR RAHUL PALACIOS MD [facility] 05-31-2023 19:54-0400 Body weight 81.[address] RAHUL PALACIOS MD [facility] 05-31-2023 19:54-0400 Diastolic Blood Pressure Non-Invasive [address] RAHUL PALACIOS MD [facility] 05-31-2023 19:54-0400 Heart rate 90 /min DR RAHUL PALACIOS MD [facility] 05-31-2023 19:54-0400 Respiratory rate 18 /min DR RAHUL PALACIOS MD [facility] 05-31-2023 19:54-0400 Systolic Blood Pressure Non-Invasive [address] RAHUL PALACIOS MD [facility] 05-01-2023 11:42-0400 Body height 146.1 cm Ciaran Fritz MD Work Phone: [facility] [employer] Comment on above: [facility] 05-01-2023 11:42-0400 Body mass index (BMI) [Ratio] 39.94 kg/m2 Ciaran Fritz MD Work Phone: [facility] [facility] 05-01-2023 11:42-0400 Body temperature 97.7 [degF] Ciaran Fritz MD Work Phone: [facility] [employer] 05-01-2023 11:42-0400 Body weight 85.19 kg Ciaran Fritz MD Work Phone: [facility] [employer] 05-01-2023 11:42-0400 Diastolic blood pressure 87 mm[Hg] Ciaran Fritz MD Work Phone: [facility] [employer] 05-01-2023 11:42-0400 Heart rate 79 /min Ciaran Fritz MD Work Phone: [facility] [employer] 05-01-2023 11:42-0400 Respiratory rate 16 /min Ciaran Fritz MD Work Phone: [facility] 05-01-2023 11:42-0400 Systolic blood pressure 119 mm[Hg] Ciaran Fritz MD Work Phone: [facility] 03-05-2023 14:44-0400 Body temperature 98.2 [degF] Krislyn Aberegg PA Work Phone: [facility] 03-05-2023 14:44-0400 Body weight 83.55 kg Krislyn Aberegg PA Work Phone: [facility] 03-05-2023 14:44-0400 Diastolic blood pressure 82 mm[Hg] Krislyn Aberegg PA Work Phone: [facility] 03-05-2023 14:44-0400 Heart rate 134 /min Krislyn Aberegg PA Work Phone: [facility] 03-05-2023 14:44-0400 Respiratory rate 18 /min Krislyn Aberegg PA Work Phone: [facility] 03-05-2023 14:44-0400 SaO2% (BldA) [Mass fraction] 98 % Krislyn Aberegg PA Work Phone: [facility] 03-05-2023 14:44-0400 Systolic blood pressure 128 mm[Hg] Krislyn Aberegg PA Work Phone: [facility] 01-09-2023 15:21-0500 Body height 142.2 cm Belgica Strange MD Work Phone: [facility] 01-09-2023 15:21-0500 Body mass index (BMI) [Ratio] 41.92 kg/m2 Belgica Strange MD Work Phone: [facility] 01-09-2023 15:21-0500 Body weight 84.82 kg Belgica Strange MD Work Phone: [facility] 01-09-2023 15:21-0500 Diastolic blood pressure 82 mm[Hg] Belgica Strange MD Work Phone: [facility] 01-09-2023 15:21-0500 Heart rate 79 /min Belgica Strange MD Work Phone: [facility] 01-09-2023 15:21-0500 Respiratory rate 16 /min Belgica Strange MD Work Phone: [facility] 01-09-2023 15:21-0500 SaO2% (BldA) [Mass fraction] 96 % Belgica Strange MD Work Phone: [facility] 01-09-2023 15:21-0500 Systolic blood pressure 120 mm[Hg] Belgica Strnage MD Work Phone: [facility] 12-24-2022 12:24-0500 Heart rate 118 /min Mohit Blakely MD Work Phone: [facility] 12-24-2022 12:24-0500 SaO2% (BldA) [Mass fraction] 97 % Mohit Blakely MD Work Phone: [facility] 12-24-2022 07:46-0500 Body temperature 98.01 [degF] Mohit Blakely MD Work Phone: [facility] 12-24-2022 07:46-0500 Diastolic blood pressure 74 mm[Hg] Mohit Blakely MD Work Phone: [facility] 12-24-2022 07:46-0500 Respiratory rate 16 /min Mohit Blakely MD Work Phone: [facility] 12-24-2022 07:46-0500 Systolic blood pressure 110 mm[Hg] Mohit Blakely MD Work Phone: [facility] 12-20-2022 20:02-0500 Body mass index (BMI) [Ratio] 41.92 kg/m2 Mohit Blakely MD Work Phone: [facility] 12-20-2022 20:02-0500 Body weight 84.82 kg Mohit Blakely MD Work Phone: [facility] 12-20-2022 19:31-0500 Body height 142.2 cm Mohit Blakely MD Work Phone: [facility] 12-20-2022 12:09-0500 Diastolic blood pressure 86 mm[Hg] Belgica Strange MD Work Phone: [facility] 12-20-2022 12:09-0500 Heart rate 84 /min Belgica Strange MD Work Phone: [facility] 12-20-2022 12:09-0500 Respiratory rate 16 /min Belgica Strange MD Work Phone: [facility] 12-20-2022 12:09-0500 SaO2% (BldA) [Mass fraction] 99 % Belgica Strange MD Work Phone: [facility] 12-20-2022 12:09-0500 Systolic blood pressure 121 mm[Hg] Belgica Strange MD Work Phone: [facility] 10-31-2022 12:29-0500 Body height 142.2 cm Belgica Strange MD Work Phone: [facility] 10-31-2022 12:29-0500 Body mass index (BMI) [Ratio] 42.6 kg/m2 Belgica Strange MD Work Phone: [facility] 10-31-2022 12:29-0500 Body weight 86.18 kg Belgica Strange MD Work Phone: [facility] 10-31-2022 12:29-0500 Diastolic blood pressure 77 mm[Hg] Belgica Strange MD Work Phone: [facility] 10-31-2022 12:29-0500 Heart rate 90 /min Belgica Strange MD Work Phone: [facility] 10-31-2022 12:29-0500 Respiratory rate 17 /min Belgica Strange MD Work Phone: [facility] 10-31-2022 12:29-0500 SaO2% (BldA) [Mass fraction] 92 % Belgica Strange MD Work Phone: [facility] 10-31-2022 12:29-0500 Systolic blood pressure 117 mm[Hg] Belgica Strange MD Work Phone: [facility] 10-10-2022 13:27-0500 Body height 142.2 cm Belgica Strange MD Work Phone: [facility] 10-10-2022 13:27-0500 Body mass index (BMI) [Ratio] 39.23 kg/m2 Belgica Strange MD Work Phone: [facility] 10-10-2022 13:27-0500 Body weight 79.38 kg Belgica Strange MD Work Phone: [facility] 10-10-2022 13:27-0500 Diastolic blood pressure 76 mm[Hg] Belgica Strange MD Work Phone: [facility] 10-10-2022 13:27-0500 Heart rate 87 /min Belgica Strange MD Work Phone: [facility] 10-10-2022 13:27-0500 Respiratory rate 16 /min Belgica Strange MD Work Phone: [facility] 10-10-2022 13:27-0500 SaO2% (BldA) [Mass fraction] 98 % Belgica Strange MD Work Phone: [facility] 10-10-2022 13:27-0500 Systolic blood pressure 124 mm[Hg] Belgica Strange MD Work Phone: [facility] 06-14-2022 13:11-0400 Body height 142.2 cm Belgica Strange MD Work Phone: [facility] 06-14-2022 13:11-0400 Body mass index (BMI) [Ratio] 39.23 kg/m2 Belgica Strange MD Work Phone: [facility] 06-14-2022 13:11-0400 Body weight 79.38 kg Belgica Strange MD Work Phone: [facility] 06-14-2022 13:11-0400 Diastolic blood pressure 86 mm[Hg] Belgica Strange MD Work Phone: [facility] 06-14-2022 13:11-0400 Heart rate 85 /min Belgica Strange MD Work Phone: [facility] 06-14-2022 13:11-0400 Respiratory rate 16 /min Belgica Strange MD Work Phone: [facility] 06-14-2022 13:11-0400 SaO2% (BldA) [Mass fraction] 97 % Belgica Strange MD Work Phone: [facility] 06-14-2022 13:11-0400 Systolic blood pressure 126 mm[Hg] Belgica Strange MD Work Phone: [facility] 04-05-2022 15:44-0400 Body height 142.2 cm Belgica Strange MD Work Phone: [facility] 04-05-2022 15:44-0400 Body mass index (BMI) [Ratio] 39.23 kg/m2 Belgica Strange MD Work Phone: [facility] 04-05-2022 15:44-0400 Body weight 79.38 kg Belgica Strange MD Work Phone: [facility] 04-05-2022 15:44-0400 Diastolic blood pressure 79 mm[Hg] Belgica Strange MD Work Phone: [facility] 04-05-2022 15:44-0400 Heart rate 106 /min Belgica Strange MD Work Phone: [facility] 04-05-2022 15:44-0400 Respiratory rate 16 /min Belgica Strange MD Work Phone: [facility] 04-05-2022 15:44-0400 SaO2% (BldA) [Mass fraction] 98 % Belgica Strange MD Work Phone: [facility] 04-05-2022 15:44-0400 Systolic blood pressure 109 mm[Hg] Belgica Strange MD Work Phone: [facility] 02-26-2022 07:31-0400 Body temperature 97.81 [degF] Belgica Strange MD Work Phone: [facility] 02-26-2022 07:31-0400 Diastolic blood pressure 84 mm[Hg] Belgica Strange MD Work Phone: [facility] 02-26-2022 07:31-0400 Heart rate 107 /min Belgica Strange MD Work Phone: [facility] 02-26-2022 07:31-0400 Respiratory rate 16 /min Belgica Strange MD Work Phone: [facility] 02-26-2022 07:31-0400 SaO2% (BldA) [Mass fraction] 98 % Belgica Strange MD Work Phone: [facility] 02-26-2022 07:31-0400 Systolic blood pressure 127 mm[Hg] Belgica Strange MD Work Phone: [facility] 02-23-2022 16:00-0400 Body height 142.2 cm Belgica Strange MD Work Phone: [facility] 02-23-2022 16:00-0400 Body mass index (BMI) [Ratio] 37.44 kg/m2 Belgica Strange MD Work Phone: [facility] 02-23-2022 16:00-0400 Body weight 75.75 kg Belgica Strange MD Work Phone: [facility] 01-31-2022 15:20-0500 Body temperature 97.34 [degF] SUMMER ROSA MD [facility] 01-31-2022 15:20-0500 Diastolic blood pressure 64 mm[Hg] SUMMER ROSA MD [facility] 01-31-2022 15:20-0500 Heart rate 83 /min SUMMER ROSA MD [facility] 01-31-2022 15:20-0500 Mean blood pressure 80 mm[Hg] SUMMER ROSA MD [facility] 01-31-2022 15:20-0500 Respiratory rate 16 /min SUMMER ROSA MD [facility] 01-31-2022 15:20-0500 Systolic blood pressure 113 mm[Hg] SUMMER ROSA MD [facility] 01-31-2022 08:23-0500 Body temperature 97.16 [degF] SUMMER ROSA MD [facility] 01-31-2022 08:23-0500 Diastolic blood pressure 82 mm[Hg] SUMMER ROSA MD [facility] 01-31-2022 08:23-0500 Heart rate 89 /min SUMMER ROSA MD [facility] 01-31-2022 08:23-0500 Mean blood pressure 99 mm[Hg] SUMMER ROSA MD [facility] 01-31-2022 08:23-0500 Respiratory rate 16 /min SUMMER ROSA MD [facility] 01-31-2022 08:23-0500 Systolic blood pressure 132 mm[Hg] SUMMER ROSA MD [facility] 01-31-2022 00:15-0500 Body temperature 98.78 [degF] SUMMER ROSA MD [facility] 01-31-2022 00:15-0500 Diastolic blood pressure 79 mm[Hg] SUMMER ROSA MD [facility] 01-31-2022 00:15-0500 Heart rate 87 /min SUMMER ROSA MD [facility] 01-31-2022 00:15-0500 Mean blood pressure 96 mm[Hg] SUMMER ROSA MD [facility] 01-31-2022 00:15-0500 Respiratory rate 16 /min SUMMER ROSA MD [facility] 01-31-2022 00:15-0500 Systolic blood pressure 130 mm[Hg] SUMMER ROSA MD [facility] 01-30-2022 04:12-0500 Body temperature 98.78 [degF] SUMMER ROSA MD [facility] 01-30-2022 02:07-0500 Body temperature 98.24 [degF] SUMMER ROSA MD [facility] 01-30-2022 00:31-0500 Body temperature 98.24 [degF] SUMMER ROSA MD [facility] 01-29-2022 09:35-0500 Diastolic Blood Pressure NBP 87 1 SUMMER ROSA MD [facility] 01-29-2022 09:35-0500 Systolic Blood Pressure NBP 144 1 SUMMER ROSA MD [facility] 01-29-2022 09:30-0500 Diastolic Blood Pressure NBP 79 1 SUMMER ROSA MD [facility] 01-29-2022 09:30-0500 Systolic Blood Pressure NBP 140 1 SUMMER ROSA MD [facility] 01-29-2022 09:25-0500 Diastolic Blood Pressure NBP 75 1 SUMMER ROSA MD [facility] 01-29-2022 09:25-0500 Systolic Blood Pressure NBP 142 1 SUMMER ROSA MD [facility] 01-29-2022 06:36-0500 Body height 142.2 cm SUMMER ROSA MD [facility] 01-29-2022 06:36-0500 Body weight 80 kg SUMMER ROSA MD [facility] 01-29-2022 06:36-0500 Body weight 39.56 kg/m2 SUMMER ROSA MD [facility] 01-10-2022 14:16-0500 Diastolic blood pressure 70 mm[Hg] DR SUZAN BLACKMAN DO [facility] 01-10-2022 14:16-0500 Systolic blood pressure 131 mm[Hg] DR SUZAN BLACKMAN DO [facility] 01-10-2022 14:05-0500 Body temperature 97.88 [degF] DR SUZAN BLACKMAN DO [facility] 01-10-2022 14:05-0500 Diastolic blood pressure 63 mm[Hg] DR SUZAN BLACKMAN DO [facility] 01-10-2022 14:05-0500 Heart rate 96 /min DR SUZAN BLACKMAN DO [facility] 01-10-2022 14:05-0500 Mean blood pressure 84 mm[Hg] DR SUZAN BLACKMAN DO [facility] 01-10-2022 14:05-0500 Respiratory rate 18 /min DR SUZAN BLACKMAN DO [facility] 01-10-2022 14:05-0500 Systolic blood pressure 125 mm[Hg] DR SUZAN BLACKMAN DO [facility] 01-10-2022 13:58-0500 Body height 142.[address] SUZAN BLACKMAN DO [facility] 01-10-2022 13:58-0500 Body weight 81.[address] SUZAN BLACKMAN DO [facility] 01-10-2022 13:58-0500 Body weight 40.45 kg/m2 DR SUZAN BLACKMAN DO [facility] 01-07-2022 15:30-0500 Body temperature 98.06 [degF] SUMMER ROSA MD [facility] 01-07-2022 15:30-0500 Diastolic blood pressure 84 mm[Hg] SUMMER ROSA MD [facility] 01-07-2022 15:30-0500 Heart rate 84 /min SUMMER ROSA MD [facility] 01-07-2022 15:30-0500 Mean blood pressure 100 mm[Hg] SUMMER ROSA MD [facility] 01-07-2022 15:30-0500 Respiratory rate 18 /min SUMMER ROSA MD [facility] 01-07-2022 15:30-0500 Systolic blood pressure 131 mm[Hg] SUMMER ROSA MD [facility] 01-07-2022 14:00-0500 Body temperature 97.88 [degF] SUMMER ROSA MD [facility] 01-07-2022 14:00-0500 Diastolic blood pressure 72 mm[Hg] SUMMER ROSA MD [facility] 01-07-2022 14:00-0500 Heart rate 74 /min SUMMER ROSA MD [facility] 01-07-2022 14:00-0500 Mean blood pressure 77 mm[Hg] SUMMER ROSA MD [facility] 01-07-2022 14:00-0500 Systolic blood pressure 86 mm[Hg] SUMMER ROSA MD [facility] 01-07-2022 13:30-0500 Body temperature 98.6 [degF] SUMMER ROSA MD [facility] 01-07-2022 13:30-0500 Diastolic blood pressure 76 mm[Hg] SUMMER ROSA MD [facility] 01-07-2022 13:30-0500 Heart rate 97 /min SUMMER ROSA MD [facility] 01-07-2022 13:30-0500 Mean blood pressure 88 mm[Hg] SUMMER ROSA MD [facility] 01-07-2022 13:30-0500 Respiratory rate 18 /min SUMMER ROSA MD [facility] 01-07-2022 13:30-0500 Systolic blood pressure 112 mm[Hg] SUMMER ROSA MD [facility] 01-07-2022 12:10-0500 Body height 142.2 cm SUMMER ROSA MD [facility] 01-07-2022 12:10-0500 Body weight 80 kg SUMMER ROSA MD [facility] 01-07-2022 12:10-0500 Body weight 39.56 kg/m2 SUMMER ROSA MD [facility] 12-13-2021 15:38-0500 Body temperature 98.24 [degF] GISELE RAUSCH MD [facility] 12-13-2021 15:38-0500 Diastolic blood pressure 72 mm[Hg] GISELE RAUSCH MD [facility] 12-13-2021 15:38-0500 Heart rate 101 /min GISELE RAUSCH MD [facility] 12-13-2021 15:38-0500 Mean blood pressure 91 mm[Hg] GISELE RAUSCH MD [facility] 12-13-2021 15:38-0500 Respiratory rate 18 /min GISELE RAUSCH MD [facility] 12-13-2021 15:38-0500 Systolic blood pressure 130 mm[Hg] GISELE RAUSCH MD [facility] 12-13-2021 15:32-0500 Body height 142.2 cm GISELE RAUSCH MD [facility] 12-13-2021 15:32-0500 Body weight 76 kg GISELE RAUSCH MD [facility] 12-13-2021 15:32-0500 Body weight 37.58 kg/m2 GISELE RAUSCH MD [facility] 10-13-2021 16:44-0500 Body height 142.2 cm GISELE RAUSCH MD [facility] 10-13-2021 16:44-0500 Body weight 78.5 kg GISELE RAUSCH MD [facility] 10-13-2021 16:44-0500 Body weight 38.82 kg/m2 GISELE RAUSCH MD [facility] 10-13-2021 16:44-0500 Diastolic blood pressure 65 mm[Hg] GISELE RAUSCH MD [facility] 10-13-2021 16:44-0500 Heart rate 76 /min GISELE RAUSCH MD [facility] 10-13-2021 16:44-0500 Mean blood pressure 85 mm[Hg] GISELE RAUSCH MD [facility] 10-13-2021 16:44-0500 Respiratory rate 18 /min GISELE RAUSCH MD [facility] 10-13-2021 16:44-0500 Systolic blood pressure 126 mm[Hg] GISELE RAUSCH MD [facility] 09-20-2021 07:44-0400 Body temperature 98.24 [degF] RICHARD REBECA MECHATRONICS TECHNICIAN-CNM [facility] 09-20-2021 07:44-0400 Diastolic blood pressure 68 mm[Hg] RICHARD REBECA MECHATRONICS TECHNICIAN-CNM [facility] 09-20-2021 07:44-0400 Heart rate 92 /min RICHARD REBECA MECHATRONICS TECHNICIAN-CNM [facility] 09-20-2021 07:44-0400 Mean blood pressure 81 mm[Hg] RICHARD REBECA MECHATRONICS TECHNICIAN-CNM [facility] 09-20-2021 07:44-0400 Respiratory rate 20 /min RICHARD REBECA MECHATRONICS TECHNICIAN-CNM [facility] 09-20-2021 07:44-0400 Systolic blood pressure 107 mm[Hg] RICHARD REBECA MECHATRONICS TECHNICIAN-CNM [facility] 09-20-2021 00:12-0400 Body temperature 98.06 [degF] RICHARD REBECA MECHATRONICS TECHNICIAN-CNM [facility] 09-20-2021 00:12-0400 Diastolic blood pressure 46 mm[Hg] RICHARD REBECA MECHATRONICS TECHNICIAN-CNM [facility] 09-20-2021 00:12-0400 Heart rate 76 /min RICHARD REBECA MECHATRONICS TECHNICIAN-CNM [facility] 09-20-2021 00:12-0400 Mean blood pressure 67 mm[Hg] RICHARD REBECA MECHATRONICS TECHNICIAN-CNM [facility] 09-20-2021 00:12-0400 Respiratory rate 18 /min RICHARD REBECA MECHATRONICS TECHNICIAN-CNM [facility] 09-20-2021 00:12-0400 Systolic blood pressure 108 mm[Hg] RICHARD REBECA MECHATRONICS TECHNICIAN-CNM [facility] 09-19-2021 16:10-0400 Body temperature 98.24 [degF] RICHARD REBECA MECHATRONICS TECHNICIAN-CNM [facility] 09-19-2021 16:10-0400 Diastolic blood pressure 41 mm[Hg] RICHARD REBECA MECHATRONICS TECHNICIAN-CNM [facility] 09-19-2021 16:10-0400 Heart rate 81 /min RICHARD REBECA MECHATRONICS TECHNICIAN-CNM [facility] 09-19-2021 16:10-0400 Mean blood pressure 66 mm[Hg] RICHARD REBECA MECHATRONICS TECHNICIAN-CNM [facility] 09-19-2021 16:10-0400 Respiratory rate 18 /min RICHARD VARGAS MECHATRONICS TECHNICIAN-CNM [facility] 09-19-2021 16:10-0400 Systolic blood pressure 116 mm[Hg] RICHARD VARGAS MECHATRONICS TECHNICIAN-CNM [facility] 09-19-2021 10:24-0400 Body height 142.2 cm RICHARD VARGAS MECHATRONICS TECHNICIAN-CNM [facility] 09-19-2021 10:24-0400 Body weight 680 kg RICHARD VARGAS MECHATRONICS TECHNICIAN-CNM [facility] 09-19-2021 10:24-0400 Body weight 336.29 kg/m2 RICHARD VARGAS MECHATRONICS TECHNICIAN-CNM [facility] Encounters Encounter Date Encounter Type Care Provider Facility Start: 06-10-2025 End: 06-10-2025 ambulatory [facility] Start: 06-07-2025 End: 06-07-2025 ambulatory Ling LEES Facility:[facility] Start: 05-13-2025 End: 05-13-2025 ambulatory Arslan LEES Facility:[facility] Start: 05-03-2025 End: 05-03-2025 ambulatory Arslan LEES Facility:[facility] Start: 04-29-2025 End: 04-29-2025 ambulatory Peggy Bell [facility] Start: 04-09-2025 End: 04-09-2025 ambulatory Arslan LEES Facility:[facility] Start: 04-07-2025 End: 04-07-2025 ambulatory Arslan LEES [facility] Start: 03-23-2025 ambulatory Peggy Rodriguez [facility] Start: 03-20-2025 End: 03-20-2025 Emergency department patient visit MAGDA KELLY [facility] Comment on above: Corneal abrasion due to contact lens, right (Primary Dx) Start: 03-11-2025 ambulatory Candida Vale Facility :[facility] Start: 02-09-2025 End: 02-09-2025 ambulatory Peggy Rodriguez [facility] Start: 12-29-2024 End: 12-29-2024 ambulatory Peggy Rodriguez [facility] Start: 12-01-2024 End: 12-01-2024 ambulatory Peggy Rodriguez [facility] Start: 11-10-2024 End: 11-10-2024 ambulatory Peggy Rodriguez [facility] Start: 10-16-2024 End: 10-16-2024 ambulatory Peggy Rodriguez [facility] Start: 09-11-2024 End: 09-11-2024 ambulatory Peggy Jennifer [facility] Start: 09-10-2024 End: 09-10-2024 ambulatory Candida Vale Facility:[facility] Start: 09-10-2024 End: 09-10-2024 ambulatory Candida Vale Facility:[facility] Start: 09-07-2024 End: 09-07-2024 ambulatory Lucy May Facility:[facility] Start: 09-04-2024 End: 09-04-2024 ambulatory Roxann Erazo [facility] Start: 09-02-2024 End: 09-02-2024 ambulatory SELF Facility:[facility] Comment on above: Irritable bowel synd stevo with constipation (Primary Dx) Start: 09-02-2024 End: 09-02-2024 Telemedicine consultation with patient Lucy May MD Work Phone: Gastroenterology Start: 09-01-2024 End: 09-01-2024 ambulatory BIM Facility:[facility] Start: 08-25-2024 ambulatory Roxann Erazo Facility: [facility] Start: 08-24-2024 ambulatory Peggy Jennifer [facility] Start: 08-24-2024 End: 08-24-2024 Emergency department patient visit ANGI VELOZ DO [facility] Start: 08-20-2024 End: 08-20-2024 ambulatory Martin LEES Facility:[facility] Start: 08-20-2024 End: 08-20-2024 ambulatory Martin LEES Facility:[facility] Start: 08-07-2024 End: 08-07-2024 ambulatory Peggy Rodriguez [facility] Start: 08-06-2024 End: 08-06-2024 ambulatory Roxann Ferullo Facility:[facility] Start: 08-04-2024 End: 08-21-2024 ambulatory Bing DiLauro Facility:[facility] Start: 07-02-2024 End: 08-01-2024 ambulatory Bing DiLauro Facility:[facility] Start: 06-30-2024 End: 06-30-2024 ambulatory Roxann Ferullo [facility] Start: 06-29-2024 End: 07-01-2024 ambulatory Bing DiLauro Facility:[facility] Start: 06-25-2024 End: 06-25-2024 ambulatory Martin LEES Facility:[facility] Start: 06-25-2024 End: 06-25-2024 ambulatory Roxann Ferullo Facility:[facility] Start: 06-23-2024 End: 06-23-2024 Emergency department patient visit PAMELA MARY MD [facility] Start: 06-11-2024 End: 06-11-2024 Subsequent hospital visit by physician Xr [facility] Work Phone: Radiology Comment on above: Acute pain of right shoulder [M25.511] Start: 06-11-2024 End: 06-11-2024 ambulatory DAVID CARREON Facility:[facility] Start: 06-11-2024 End: 06-11-2024 Office outpatient visit 25 minutes David Carreon MECHATRONICS TECHNICIAN.VITOR Work Phone: [facility] Comment on above: Acute pain of right shoulder (Primary Dx) Start: 05-11-2024 ambulatory Jojo polo RN [facility] Start: 05-11-2024 [facility] encounter [facility] Start: 05-09-2024 End: 05-09-2024 Emergency department patient visit LISA RAUSCH MD [facility] Start: 05-08-2024 End: 05-08-2024 Emergency department patient visit ELOY LUCERO MD [facility] Start: 04-16-2024 End: 04-17-2024 Emergency department patient visit LISA RAUSCH MD [facility] Start: 03-07-2024 End: 03-07-2024 Emergency department patient visit ELOY LUCERO MD [facility] Start: 12-17-2023 End: 12-17-2023 ambulatory [facility] Facility:[facility] Start: 11-13-2023 End: 11-13-2023 Emergency department patient visit ELOY LUCERO MD [facility] Start: 11-06-2023 End: 11-06-2023 Subsequent hospital visit by physician Mariella Hutchinson PA-C Work Phone: [facility]-Invasive Cardiology Comment on above: Shortness of breath; PVC (premature ventricular contraction) Start: 09-26-2023 End: 09-26-2023 Office outpatient visit 25 minutes Miguelangel Green MD Work Phone: [facility] [place] Comment on above: Morbid obesity due t o excess calories (HCC) (Primary Dx); Pre-diabetes Start: 09-17-2023 End: 09-20-2023 Evaluation and management of inpatient [facility] Start: 09-17-2023 End: 09-20-2023 Evaluation and management of inpatient Johana Resendez MD Work Phone: [facility] Start: 09-05-2023 ambulatory BELGICA STR[facility] Start: 08-29-2023 End: 08-29-2023 Office outpatient visit 25 minutes Stacy Wongchris Alaniz CNP Work Phone: [facility] Comment on above: Mild intermittent as thma, unspecified whether complicated (Primary Dx); Morbid obesity with BMI of 40.0-44.9, adult (HCC); Sleep disorder Start: 08-21-2023 Telephone encounter Julia Reynolds [facility] [place] Comment on above: Abnormal Lab (+ H py michael) Start: 08-20-2023 ambulatory Gisselle Marr RN [facility] Clinical Communication Start: 08-20-2023 Patient encounter procedure Gisselle Marr RN [facility] Clinical Communication Start: 08-20-2023 Telephone encounter Ciaran johnson MD Work Phone: [facility] Clinical Communication Comment on above: Pageout Start: 08-20-2023 End: 08-20-2023 Subsequent hospital visit by physician Mariella Hutchinson PA-C Work Phone: [facility] Non-Invasive Cardiology Comment on above: Shortness of breath; PVC (premature ventricular contraction) Start: 08-19-2023 End: 08-19-2023 Subsequent hospital visit by physician Ciaran Fritz MD Work Phone: [facility] Comment on above: Gastro-esophageal re flux disease without esophagitis Start: 08-15-2023 Telephone encounter Mariella Hutchinson PA-C Work Phone: [facility] Comment on above: OTHER Start: 08-14-2023 End: 08-14-2023 Office outpatient new 45 minutes Mariella Hutchinson PA-C Work Phone: [facility] Comment on above: PVC (premature ventr icular contraction) (Primary Dx); Shortness of breath; Morbid obesity with BMI of 40.0-44.9, adult (HCC); Preoperative clearance; Prediabetes Start: 08-14-2023 End: 08-14-2023 Preoperative state Marielal Hutchinson PA-C Work Phone: [facility] Start: 08-13-2023 ambulatory Jeremy Hallman APRN - ARMAMENT MECHANIC Work Phone: [facility] Start: 08-12-2023 End: 08-12-2023 Office outpatient visit 25 minutes Miguelangel Green MD Work Phone: [facility] Comment on above: Morbid obesity due t o excess calories (HCC) (Primary Dx); Pre-diabetes Start: 07-22-2023 End: 07-26-2023 ambulatory PHYSICIAN [facility] Start: 07-22-2023 End: 07-22-2023 Office outpatient visit 25 minutes Belgica Strange MD Work Phone: [facility] Comment on above: Schizoaffective diso rder, bipolar type with good prognostic features (HCC) (Primary Dx); Bipolar 1 disorder, mixed, moderate (HCC) Start: 07-20-2023 End: 07-20-2023 Patient encounter procedure Magda Guzman APRN.ARMAMENT MECHANIC Work Phone: [facility] Comment on above: Acute pain of left k nee (Primary Dx) Start: 07-15-2023 End: 07-15-2023 Office outpatient visit 25 minutes Miguelangel Green MD Work Phone: [facility] Comment on above: Morbid obesity due t o excess calories (HCC) (Primary Dx); Pre-diabetes Start: 07-05-2023 Refill Belgica love MD Work Phone: [facility] Comment on above: Bipolar 1 disorder, mixed, moderate (HCC) (Primary Dx) Start: 06-26-2023 End: 06-26-2023 ambulatory PHYSICIAN [facility] Start: 06-26-2023 End: 06-26-2023 Subsequent hospital visit by physician Jeremy Hallman APRN - ARMAMENT MECHANIC Work Phone: [facility] Comment on above: Gastroesophageal ref lux disease without esophagitis; Prediabetes; Morbid obesity with BMI of 40.0-44.9, adult (HCC); Vitamin D deficiency Start: 06-19-2023 End: 06-19-2023 Clinical Support Ciaran Fritz MD Work Phone: [facility] Comment on above: Prediabetes (Primary Dx) Start: 06-13-2023 End: 06-13-2023 Office outpatient new 45 minutes Miguelangel Green MD Work Phone: [facility] Comment on above: Snoring (Primary Dx) Start: 05-31-2023 End: 05-31-2023 Emergency department patient visit DR RAHUL PALACIOS MD [facility] Start: 05-29-2023 Telephone encounter Romina ramos RD Work Phone: [facility] Comment on above: Abnormal Lab (Low Vi tamin d, low normal B12) Gastro-esophageal re flux disease without esophagitis (Primary Dx); Morbid (severe) obesity due to excess calories (HCC); Body mass index (BMI) 40.0-44.9, adult (HCC); Vitamin D deficiency, unspecified; Prediabetes Start: 05-13-2023 Documentation procedure Ciaran Fritz MD Work Phone: [facility] Comment on above: EGD (EGD order) Start: 05-01-2023 Patient encounter status Jeremy Hallman MECHATRONICS TECHNICIAN - ARMAMENT MECHANIC Work Phone: [facility] Start: 05-01-2023 Telephone encounter Jeremy Sharpe lynnejsoé MECHATRONICS TECHNICIAN - ARMAMENT MECHANIC Work Phone: [facility] Comment on above: Financial File (Ivon ncial File 2022); Surgery Scheduling (Initial scheduling-orders placed) Start: 05-01-2023 End: 05-01-2023 Office outpatient new 45 minutes Ciaran Fritz MD Work Phone: [facility] Comment on above: Vitamin D deficiency ; Morbid obesity with BMI of 40.0-44.9, adult (HCC); Gastroesophageal reflux disease without esophagitis; Prediabetes Start: 04-08-2023 Documentation procedure Wilmar Strange MD Work Phone: [facility] Provider Psychiatry Start: 03-07-2023 ambulatory [facility] Start: 03-05-2023 End: 03-05-2023 Patient encounter procedure Bernie LEES Work Phone: [facility] Comment on above: Strep pharyngitis (P rimary Dx); Throat pain Start: 02-28-2023 ambulatory GISELE FLORES [facility] Start: 02-22-2023 Documentation procedure Wilmar Strange MD Work Phone: [facility] Start: 01-09-2023 End: 01-09-2023 ambulatory PHYSICIAN NO [facility] Start: 01-09-2023 End: 01-09-2023 Office outpatient visit 10 minutes Belgica Strange MD Work Phone: [facility] Comment on above: Schizoaffective diso rder, bipolar type (HCC) (Primary Dx) Start: 12-20-2022 End: 12-24-2022 Evaluation and management of inpatient BELGICA REGALADO [facility] Start: 12-20-2022 End: 12-20-2022 ambulatory BELGICA STRANGE [facility] Start: 12-20-2022 End: 12-24-2022 Evaluation and management of inpatient Mohit Blakely MD Work Phone: [facility] Start: 12-20-2022 End: 12-20-2022 Office outpatient visit 25 minutes Belgica Strange MD Work Phone: [facility] Comment on above: Bipolar 1 disorder, mixed, moderate (HCC) Start: 12-05-2022 Refill Belgica love MD Work Phone: [facility] Comment on above: Bipolar 1 disorder, mixed, moderate (HCC) Start: 11-28-2022 End: 11-28-2022 ambulatory BELGICA STRANGE [facility] Start: 10-31-2022 End: 10-31-2022 ambulatory BELGICA STRANGE [facility] Start: 10-31-2022 End: 10-31-2022 Office outpatient visit 15 minutes Belgica Strange MD Work Phone: [facility] Comment on above: Bipolar 1 disorder, mixed, moderate (HCC) (Primary Dx); Bipolar I disorder with depression (HCC) Start: 10-10-2022 End: 10-10-2022 ambulatory BELGICA STRANGE [facility] Start: 10-10-2022 End: 10-10-2022 Office outpatient visit 25 minutes Belgica Strange MD Work Phone: [facility] Comment on above: Bipolar 1 disorder, mixed, moderate (HCC) Start: 08-15-2022 Refill Srinivas Pravin LONG [facility] Comment on above: Bipolar 1 disorder, mixed, moderate (HCC) (Primary Dx) Bipolar 1 disorder, mixed, moderate (HCC) Start: 06-14-2022 End: 06-14-2022 Office outpatient visit 15 minutes Belgica Strange MD Work Phone: [facility] Comment on above: Bipolar I disorder w ith depression (HCC) (Primary Dx) Start: 05-08-2022 End: 05-08-2022 Patient encounter procedure RICHARD VARGAS APRN-CNM [facility] Start: 04-05-2022 End: 04-05-2022 Office outpatient visit 15 minutes Belgica Strange MD Work Phone: [facility] Comment on above: Bipolar II disorder major depressive with onset (HCC) (Primary Dx) Start: 04-04-2022 End: 04-08-2022 Outreach Lab ANABELLE SINGH APRN-ARMAMENT MECHANIC [facility] Start: 02-23-2022 End: 02-26-2022 Evaluation and management of inpatient Belgica Strange MD Work Phone: [facility] Start: 01-29-2022 End: 01-31-2022 Evaluation and management of inpatient SUMMER ROSA MD [facility] Start: 01-18-2022 End: 01-18-2022 Admission to establishment SUMMER ROSA MD [facility] Start: 01-10-2022 End: 01-10-[address] SUZAN BLACKMAN DO [facility] Start: 01-09-2022 End: 01-13-2022 Outreach Lab RICHARD VARGAS MECHATRONICS TECHNICIAN-CNM [facility] Start: 01-07-2022 End: 01-07-2022 SAME DAY STAY SUMMER ROSA MD [facility] Start: 12-13-2021 End: 12-13-2021 SAME DAY STAY GISELE RAUSCH MD [facility] Start: 12-11-2021 End: 12-11-2021 Patient encounter procedure RICHARD VARGAS MECHATRONICS TECHNICIAN-CNM [facility] Start: 10-17-2021 End: 10-17-2021 Patient encounter procedure JUNG SHAH MD [facility] Start: 10-13-2021 End: 10-13-2021 SAME DAY STAY GISELE RAUSCH MD [facility] Start: 09-19-2021 End: 09-20-2021 SAME DAY STAY RICHARD VARGAS APRN-CNM [facility] Start: 09-15-2021 End: 09-15-2021 Patient encounter procedure RICHARD VARGAS MECHATRONICS TECHNICIAN-CNM [facility] Start: 03-29-2021 ambulatory DEBRA SMITH Facility: [facility] Start: 05-19-2018 Ambulatory [facility] Start: 05-01-2018 End: 05-01-2018 Emergency department patient visit David Lee Wolfgang Facility:[facility] Start: 03-16-2018 End: 03-16-2018 Ambulatory LIBIA Ferguson VICTORINO [facility] Start: 06-11-2017 End: 06-11-2017 Emergency department patient visit [facility] Procedures Date Procedure Procedure Detail Performing Clinician Start: 06-11-2024 Radex shoulder compl ete minimum 2 views David Carreon MECHATRONICS TECHNICIAN.ARMAMENT MECHANIC Work Phone: Start: 11-06-2023 Echo tthrc r-t 2d w/ wom-mode compl spec&colr d Mariella Hutchinson PA-C Work Phone: Start: 09-21-2023 Electrocardiogram Up[facility] travis Resendez MD Work Phone: Start: 09-19-2023 Drug screen quantita tive lithium Updamien Resendez MD Work Phone: Start: 09-18-2023 End: 09-18-2023 Comprehensive metabolic panel Updamien Resendez MD Work Phone: Start: 09-18-2023 Lipid panel [facility] Shaheed blount MD Work Phone: Start: 08-14-2023 Ecg routine ecg w/le ast 12 lds w/i&r Ananda Kinsey MD Work Phone: Start: 06-26-2023 Radiologic exam upr gi trc single contrast study Jeremy Hallman MECHATRONICS TECHNICIAN - ARMAMENT MECHANIC Work Phone: Start: 06-26-2023 Us abdominal real ti me w/image documentation Jeremy Hallman MECHATRONICS TECHNICIAN - ARMAMENT MECHANIC Work Phone: Start: 05-29-2023 Comprehensive metabo lic panel Jeremy R Bridle MECHATRONICS TECHNICIAN - ARMAMENT MECHANIC Work Phone: Start: 05-29-2023 Lipid panel Jeremy R Br idle MECHATRONICS TECHNICIAN - ARMAMENT MECHANIC Work Phone: Start: 05-29-2023 Lipid 1996 panel - S meseret or Plasma Romina Lynch RD Work Phone: Start: 05-29-2023 Thyrotropin [Units/v olume] in Serum or Plasma Romina Bautistarubi RD Work Phone: Start: 03-05-2023 STREP A MOLECULAR (POC) Bernie Marvin PA Work Phone: Start: 12-24-2022 Drug screen quantita tive lithium Belgica Strange MD Work Phone: Start: 12-22-2022 Culture bacterial quanttative colony count urine Therese Dia Buenrostro PA-C Work Phone: Start: 12-20-2022 Blood ethanol measurement Mohit Blakely MD Work Phone: Start: 12-20-2022 Gonadotropin chorion ic qualitative Mohit Blakely MD Work Phone: Start: 12-20-2022 Lipid panel Belgica Strange MD Work Phone: Start: 12-20-2022 SARS-CoV-2 (COVID-19 ) RNA [Presence] in Respiratory specimen by HUGH with probe detection Mohit Blakely MD Work Phone: Start: 12-20-2022 Urnls dip stick/tabl et reagent auto microscopy Mohit Blakely MD Work Phone: Start: 12-02-2007 Appendectomy RICHARD LAILA SANDOVAL MECHATRONICS TECHNICIAN-CNM delivery - delivered (finding) ANABELLE DE LA CRUZON MECHATRONICS TECHNICIAN-ARMAMENT MECHANIC H/O: section S/P matt an section( Confirmed ) SUMMER ROSA MD Operation on adenoids RICHARD VARGAS KAMLESH-CNM Structure of wisdom tooth (body structure) RICHARD VARGAS MECHATRONICS TECHNICIAN-CNM Tympanostomy RICHARD VARGAS KAMLESH-CNM Tympanotomy SUMMER ROSA MD Comment on above: X5 Plan of Treatment Date Care Activity Detail Author Start: 02-09-2076 RSV Immunization for Adults (1 - 1-dose 75+ series) RSV Immunization for Adults (1 - 1-dose 75+ series) [facility] Start: 2061 RSV Immunization aged 60 or older (1 - 1-dose 60+ series) RSV Immunization aged 60 or older (1 - 1-dose 60+ series) [facility] Start: 2051 Zoster Vaccines (1 of 2) Zoster Vaccines (1 of 2) [facility] Start: 03-04-2034 DTaP/Tdap/Td Vaccines (9 - Td or Tdap) DTaP/Tdap/Td Vaccines (9 - Td or Tdap) [facility] Start: 03-04-2034 Urine microalbumin profile DTaP,Tdap,Td Vaccine (9 - Td or Tdap) [facility] Start: 11-23-2031 DTaP/Tdap/Td Vaccines (8 - Td or Tdap) DTaP/Tdap/Td Vaccines (8 - Td or Tdap) [facility] Start: 11-23-2031 Tetanus vaccination Tetanus: Every 10yrs [facility] Start: 05-29-2028 Lipid panel Lipid Panel [facility] Start: 08-02-2025 Influenza vaccination Influenza Vaccine (Season Ended) [facility] Start: 09-02-2024 End: 09-02-2024 ambulatory 09/02/2024 8:[address] [facility] [address] [address] Lucy May MD [address] [place] [address] Blood in St[facility] Gastroenterology Comment on above: Blood in Stool Start: 08-02-2024 Covid-19 Vaccine ( season) Covid-19 Vaccine () [facility] Start: 08-02-2024 Covid-19 Vaccine ( season) Covid-19 Vaccine () [facility] Start: 08-02-2024 Influenza vaccination [facility] Start: 07-01-2024 End: 07-01-2024 Patient encounter procedure 07/01/2024 2:30 PM EDT Office Visit [facility] [address] [place] [phone] Hyacinth Lama MD [address] [place] [id number] [facility] Start: 05-29-2024 Diabetes: Estimated Glomerular Filtration Rate for Kidney Health Diabetes: Estimated Glomerular Filtration Rate for Kidney Health [facility] Start: 05-29-2024 Hemoglobin A1c measurement Diabetes: Hemoglobin A1C [facility] Start: 05-29-2024 Lipid panel Lipid Panel [facility] Start: 05-29-2024 Thyroid stimulating hormone measurement TSH Level [facility] Start: 12-02-2023 Behavioral Health Screening Behavioral Health Screening [facility] Start: 11-28-2023 Hemoglobin A1c measurement A1C [facility] Start: 11-11-2023 End: 11-11-2023 Patient encounter procedure 11/11/2023 1:00 PM EST Office Visit [facility] [address] [place] [phone] Mariella Hutchinson PA-C [address] [place] [address] [facility] Start: 11-06-2023 End: 11-06-2023 Patient encounter procedure 11/06/2023 10:00 AM EST Appointment [facility] Non-Invasive Cardiology [address] [place] [phone] [facility] Non-Invasive Cardiology Start: 11-04-2023 End: 11-04-2023 Clinical Support 11/04/2023 8:30 PM EST Clinical Support [facility] [address] [place] [address] Stacy Mccabe APRN - ARMAMENT MECHANIC [address] [place] [address] [facility] Start: 10-02-2023 End: 08-21-2024 Helicobacter pylori Ag [Presence] in Stool by Immunoassay H. pylori Stool Antigen Microbiology Routine H. pylori infection Expected: 10/02/2023, Expires: 08/21/2024 [facility] Work Phone: Comment on above: Expected: 10/02/2023, Expires: Start: 09-23-2023 End: 09-20-2024 Norvelt [Moles/volume] in Serum or Plasma Norvelt Level Lab Routine Schizoaffective disorder, bipolar type (HCC) Long-term use of high-risk medication Expected: 09/23/2023, Expires: 09/20/2024 [facility] Comment on above: Expected: 09/23/2023, Expires: 4 Start: 09-18-2023 End: 09-18-2023 Patient encounter procedure 09/18/2023 1:30 PM EDT Office Visit [facility] [address] [place] [address] Belgica Strange MD [address] [place] [id number] [facility] Start: 09-16-2023 End: 09-16-2023 Patient encounter procedure 09/16/2023 2:50 PM EDT Office Visit [facility] [place] [address] [place] [address] Miguelangel Green MD [address] [place] [address] [facility] [place] Start: 09-03-2023 End: 06-03-2024 25-hydroxyvitamin D3 [Mass/volume] in Serum or Plasma Vitamin D 25 hydroxy Lab Routine Low vitamin D level Expected: 09/03/2023 (Approximate), Expires: 06/03/2024 [facility] [employer] Work Phone: Comment on above: Expected: 09/03/2023 (Approximate), Expi res: 06/03/2024 Start: 09-03-2023 End: 06-03-2024 Cobalamin (Vitamin B12) [Mass/volume] in Serum or Plasma Vitamin B12 Lab Routine Low vitamin B12 level Expected: 09/03/2023 (Approximate), Expires: 06/03/2024 [facility] [employer] Comment on above: Expected: 09/03/2023 (Approximate), Expi res: 06/03/2024 Start: 08-29-2023 End: 08-29-2023 Patient encounter procedure 08/29/2023 2:10 PM EDT Office Visit [facility] [address] [place] [phone] Stacy Mccabe APRN - ARMAMENT MECHANIC [address] [place] [address] [facility] Start: 08-29-2023 End: 08-29-2024 Polysomnography [facility] Routine Sleep disorder Expected: 08/29/2023 (Approximate), Expires: 08/29/2024 [facility] [employer] [facility] Work Phone: Comment on above: Expected: 08/29/2023 (Approximate), Expi res: 08/29/2024 Start: 08-21-2023 End: 08-21-2023 Patient encounter procedure 08/21/2023 1:40 PM EDT Office Visit [facility] [address] [place] [phone] Stacy Mccabe APRN - ARMAMENT MECHANIC [address] [place] [address] [facility] Start: 08-20-2023 End: 08-20-2023 Patient encounter procedure [facility] Non-Invasive Cardiology Start: 08-19-2023 End: 08-19-2023 Admission to same day surgery center 08/19/2023 9:00 AM EDT - 08/19/2023 9:30 AM EDT Surgery [facility] [address] [place] [phone] Ciaran Fritz MD [address] [place], [place] [phone] EGD WITH BIOPSY [05073 (CPT )] [facility] Comment on above: EGD WITH BIOPSY [26352 (CPT )] Start: 08-19-2023 Subsequent hospital visit by physician 08/19/2023 9:00 AM EDT Hospital Encounter [facility] [address] [place] [address] Ciaran Fritz MD [address] [place] [address] [facility] Start: 08-19-2023 End: 08-19-2023 Egd transoral biopsy single/multiple [facility] Start: 08-14-2023 End: 08-14-2025 Cardiac holter monitor (24 hours) Cardiac holter monitor (24 hours) [facility] Routine Shortness of breath PVC (premature ventricular contraction) Expected: 08/14/2023 (Approximate), Expires: 08/14/2025 [facility] [employer] [facility] Work Phone: Comment on above: Expected: 08/14/2023 (Approximate), Expi res: 08/14/2025 Start: 08-14-2023 End: 08-14-2025 US Heart Transthoracic Transthoracic echocardiogram (TTE) complete with contrast, bubble, strain, and 3D PRN CV Echocardiography Routine Shortness of breath PVC (premature ventricular contraction) Expected: 08/14/2023 (Approximate), Expires: 08/14/2025 [facility] [employer] Comment on above: Expected: 08/14/2023 (Approximate), Expi res: 08/14/2025 Start: 08-14-2023 End: 08-14-2023 Patient encounter procedure 08/14/2023 1:30 PM EDT Office Visit [facility] [address] [place] [phone] Mariella Hutchinson PAEddie [address] [place] [address] [facility] Start: 08-13-2023 End: 08-12-2024 Nicotine, Blood Nicotine, Blood Lab Routine Vitamin D deficiency Pre-operative laboratory examination Encounter for tobacco use screening Expected: 08/13/2023, Expires: 08/12/2024 [facility] Comment on above: Expected: 08/13/2023, Expires: Start: 08-12-2023 End: 08-12-2023 Patient encounter procedure 08/12/2023 2:50 PM EDT Office Visit [facility] [place] [address] [place] [phone] Miguelangel Green MD [address] [place] [address] [address] [place] [address] [facility] [place] Start: 08-02-2023 COVID-19 Vaccine ( season) COVID-19 Vaccine ( season) [facility] Start: 08-02-2023 Influenza vaccination [facility] Start: 07-31-2023 End: 07-31-2023 Patient encounter procedure 07/31/2023 12:30 PM EDT Office Visit [facility] [address] [place] [address] Belgica Strange MD [facility] [address] [address] [facility] Start: 07-15-2023 End: 07-15-2023 Patient encounter procedure 07/15/2023 2:50 PM EDT Office Visit [facility] [place] [address] [place] [phone] Miguelangel Green MD [address] [place] [address] [address] [place], [place] [phone] [facility] [place] Start: 06-26-2023 End: 06-26-2023 Patient encounter procedure [facility] Start: 06-19-2023 End: 06-19-2023 Clinical Support 06/19/2023 1:00 PM EDT Clinical Support [facility] [place] [address] [place] [phone] Ciaran Fritz MD [address] [place] [address] [place], [place] [phone] [facility] [place] Start: 06-17-2023 Urine microalbumin profile DTAP,TDAP,TD (7 - Td or Tdap) [facility] Start: 06-13-2023 End: 06-13-2023 Patient encounter procedure 06/13/2023 12:30 PM EDT Office Visit [facility] [place] [address] [place] [phone] Miguelangel Green MD [address] [place] [address] [facility] [place] Start: 05-29-2023 End: 05-29-2023 Patient encounter procedure 05/29/2023 1:00 PM EDT Office Visit [facility] [address] [place] [address] Belgica Strange MD [facility] Kaylah Wick [address] [address] [facility] Start: 05-27-2023 End: 05-13-2024 25-hydroxyvitamin D3 [Mass/volume] in Serum or Plasma Vitamin D 25 hydroxy Lab Routine Gastroesophageal reflux disease without esophagitis Prediabetes Morbid obesity with BMI of 40.0-44.9, adult (HCC) Vitamin D deficiency Expected: 05/27/2023 (Approximate), Expires: 05/13/2024 [facility] [employer] Comment on above: Expected: 05/27/2023 (Approximate), Expi res: 05/13/2024 Start: 05-27-2023 End: 05-13-2024 CBC panel - Blood by Automated count CBC Lab Routine Gastroesophageal reflux disease without esophagitis Prediabetes Morbid obesity with BMI of 40.0-44.9, adult (HCC) Vitamin D deficiency Expected: 05/27/2023 (Approximate), Expires: 05/13/2024 [facility] Comment on above: Expected: 05/27/2023 (Approximate), Expi res: 05/13/2024 Start: 05-27-2023 End: 05-13-2024 Cobalamin (Vitamin B12) [Mass/volume] in Serum or Plasma Vitamin B12 Lab Routine Gastroesophageal reflux disease without esophagitis Prediabetes Morbid obesity with BMI of 40.0-44.9, adult (HCC) Vitamin D deficiency Expected: 05/27/2023 (Approximate), Expires: 05/13/2024 [facility] Comment on above: Expected: 05/27/2023 (Approximate), Expi res: 05/13/2024 Start: 05-27-2023 End: 05-13-2024 Comprehensive metabolic 1998 panel - Serum or Plasma Comprehensive metabolic panel Lab Routine Gastroesophageal reflux disease without esophagitis Prediabetes Morbid obesity with BMI of 40.0-44.9, adult (HCC) Vitamin D deficiency Expected: 05/27/2023 (Approximate), Expires: 05/13/2024 [facility] Comment on above: Expected: 05/27/2023 (Approximate), Expi res: 05/13/2024 Start: 05-27-2023 End: 05-13-2024 Ferritin [Mass/volume] in Serum or Plasma Ferritin Lab Routine Gastroesophageal reflux disease without esophagitis Prediabetes Morbid obesity with BMI of 40.0-44.9, adult (HCC) Vitamin D deficiency Expected: 05/27/2023 (Approximate), Expires: 05/13/2024 [facility] [employer] Comment on above: Expected: 05/27/2023 (Approximate), Expi res: 05/13/2024 Start: 05-27-2023 End: 05-13-2024 Folate [Mass/volume] in Serum or Plasma Folate Lab Routine Gastroesophageal reflux disease without esophagitis Prediabetes Morbid obesity with BMI of 40.0-44.9, adult (HCC) Vitamin D deficiency Expected: 05/27/2023 (Approximate), Expires: 05/13/2024 [employer] [employer] Comment on above: Expected: 05/27/2023 (Approximate), Expi res: 05/13/2024 Start: 05-27-2023 End: 05-13-2024 Hemoglobin A1c measurement Hemoglobin A1c Lab Routine Gastroesophageal reflux disease without esophagitis Prediabetes Morbid obesity with BMI of 40.0-44.9, adult (HCC) Vitamin D deficiency Expected: 05/27/2023 (Approximate), Expires: 05/13/2024 [email or web address] Work Phone: Comment on above: Expected: 05/27/2023 (Approximate), Expi res: 05/13/2024 Start: 05-27-2023 End: 05-13-2024 Hemoglobin A1c/Hemoglobin.total in Blood Hemoglobin A1c Lab Routine Gastroesophageal reflux disease without esophagitis Prediabetes Morbid obesity with BMI of 40.0-44.9, adult (HCC) Vitamin D deficiency Expected: 05/27/2023 (Approximate), Expires: 05/13/2024 [email or web address] Work Phone: Comment on above: Expected: 05/27/2023 (Approximate), Expi res: 05/13/2024 Start: 05-27-2023 End: 05-13-2024 Iron and Iron binding capacity panel - Serum or Plasma Iron Lab Routine Gastroesophageal reflux disease without esophagitis Prediabetes Morbid obesity with BMI of 40.0-44.9, adult (HCC) Vitamin D deficiency Expected: 05/27/2023 (Approximate), Expires: 05/13/2024 [facility] [employer] Comment on above: Expected: 05/27/2023 (Approximate), Expi res: 05/13/2024 Start: 05-27-2023 End: 05-13-2024 Lipid 1996 panel - Serum or Plasma Lipid panel Lab Routine Gastroesophageal reflux disease without esophagitis Prediabetes Morbid obesity with BMI of 40.0-44.9, adult (HCC) Vitamin D deficiency Expected: 05/27/2023 (Approximate), Expires: 05/13/2024 [facility] Comment on above: Expected: 05/27/2023 (Approximate), Expi res: 05/13/2024 Start: 05-27-2023 End: 05-13-2024 Magnesium [Mass/volume] in Serum or Plasma Magnesium Lab Routine Gastroesophageal reflux disease without esophagitis Prediabetes Morbid obesity with BMI of 40.0-44.9, adult (HCC) Vitamin D deficiency Expected: 05/27/2023 (Approximate), Expires: 05/13/2024 [facility] Comment on above: Expected: 05/27/2023 (Approximate), Expi res: 05/13/2024 Start: 05-27-2023 End: 05-13-2024 Thyrotropin [Units/volume] in Serum or Plasma TSH Lab Routine Gastroesophageal reflux disease without esophagitis Prediabetes Morbid obesity with BMI of 40.0-44.9, adult (HCC) Vitamin D deficiency Expected: 05/27/2023 (Approximate), Expires: 05/13/2024 [facility] [employer] Comment on above: Expected: 05/27/2023 (Approximate), Expi res: 05/13/2024 Start: 05-27-2023 End: 05-13-2024 US Abdomen US abdomen complete Imaging Routine Gastroesophageal reflux disease without esophagitis Prediabetes Morbid obesity with BMI of 40.0-44.9, adult (HCC) Vitamin D deficiency Expected: 05/27/2023 (Approximate), Expires: 05/13/2024 [facility] [employer] Comment on above: Expected: 05/27/2023 (Approximate), Expi res: 05/13/2024 Start: 05-27-2023 End: 05-13-2024 Vitamin B1, whole blood Vitamin B1, whole blood Lab Routine Gastroesophageal reflux disease without esophagitis Prediabetes Morbid obesity with BMI of 40.0-44.9, adult (HCC) Vitamin D deficiency Expected: 05/27/2023 (Approximate), Expires: 05/13/2024 [facility] [employer] Comment on above: Expected: 05/27/2023 (Approximate), Expi res: 05/13/2024 Start: 05-27-2023 End: 05-13-2024 XR Abdomen and RF Gastrointestinal tract upper W contrast PO FL upper GI w KUB Imaging Routine Gastroesophageal reflux disease without esophagitis Prediabetes Morbid obesity with BMI of 40.0-44.9, adult (HCC) Vitamin D deficiency Expected: 05/27/2023 (Approximate), Expires: 05/13/2024 [facility] [employer] Comment on above: Expected: 05/27/2023 (Approximate), Expi res: 05/13/2024 Start: 05-27-2023 End: 05-13-2024 Zinc Zinc Lab Routine Gastroesophageal reflux disease without esophagitis Prediabetes Morbid obesity with BMI of 40.0-44.9, adult (HCC) Vitamin D deficiency Expected: 05/27/2023 (Approximate), Expires: 05/13/2024 [facility] [employer] Comment on above: Expected: 05/27/2023 (Approximate), Expi res: 05/13/2024 Start: 05-27-2023 End: 05-27-2023 Patient encounter procedure 05/27/2023 Office Visit Weight Management Miguelangel Green MD [address] [place] [address] [facility] [place] Start: 05-20-2023 End: 05-20-2023 Clinical Support 05/20/2023 Clinical Support Weight Management Ciaran Fritz MD [address] [place] [address] [place] [address] [facility] [place] Start: 04-08-2023 End: 04-08-2023 Patient encounter procedure 04/08/2023 Office Visit Psychiatry Belgica Strange MD [address] [place] [id number] [facility] Start: 01-09-2023 End: 01-09-2023 Patient encounter procedure 01/09/2023 Office Visit Psychiatry Belgica Strange MD [address] [place] [id number] [facility] Start: 12-18-2022 Depression Remission Assessment (PHQ9) Depression Remission Assessment (PHQ9) [facility] Start: 12-02-2022 DEPRESSION ASSESSMENT DEPRESSION ASSESSMENT [facility] Start: 11-28-2022 End: 11-28-2022 Telemedicine consultation with patient 11/28/2022 Telemedicine Psychiatry Belgica Strange MD [address] [place] [id number] [facility] Start: 10-31-2022 End: 10-31-2022 Patient encounter procedure 10/31/2022 Office Visit Psychiatry Belgica Strange MD [address] [place] [id number] [facility] Start: 10-10-2022 End: 10-10-2022 Patient encounter procedure 10/10/2022 Office Visit Psychiatry Belgica Strange MD [address] [place] [id number] [facility] Start: 08-15-2022 End: 08-15-2022 Patient encounter procedure 08/15/2022 Office Visit Psychiatry Belgica Strange MD [address] [place] [id number] [facility] Start: 08-02-2022 Influenza vaccination Sequential Influenza Vaccine (#1) [facility] Start: 2022 PAP TESTING PAP TESTING [facility] Start: 2022 Screening for malignant neoplasm of cervix [facility] Start: 06-19-2021 COVID-19 Vaccine (3 - Booster for Moderna series) COVID-19 Vaccine (3 - Booster for Moderna series) [facility] Start: 03-17-2021 COVID-19 Vaccine (3 - Booster for Moderna series) COVID-19 Vaccine (3 - Booster for Moderna series) [facility] Start: 03-17-2021 COVID-19 Vaccine (3 - Moderna series) COVID-19 Vaccine (3 - Moderna series) [facility] Start: 02-09-2020 Pneumococcal Vaccine: Pediatrics (0 to 5 Years) and At-Risk Patients (6 to 49 Years) (1 of 2 - PCV) Pneumococcal Vaccine: Pediatrics (0 to 5 Years) and At-Risk Patients (6 to 49 Years) (1 of 2 - PCV) [facility] Start: 02-09-2020 Urine screening for protein Diabetes: Urine Protein Screening [facility] Start: 05-13-2019 ANNUAL PCP TEAM CHRONIC DISEASE VISIT ANNUAL PCP TEAM CHRONIC DISEASE VISIT [facility] Start: 2019 ANNUAL PCP TEAM CHRONIC DISEASE VISIT ANNUAL PCP TEAM CHRONIC DISEASE VISIT [facility] Start: 2019 Anxiety Screening Anxiety Screening [facility] Start: 2019 CHLAMYDIA SCREENING (18-24) CHLAMYDIA SCREENING (18-24) [facility] Start: 2019 Depression Screening Depression Screening [facility] Start: 2019 Diabetes: Urine Albumin-Creatinine Ratio for Kidney Health Diabetes: Urine Albumin-Creatinine Ratio for Kidney Health [facility] Start: 2019 GC (GONORRHEA) SCREENING (18-24) GC (GONORRHEA) SCREENING (18-24) [facility] Start: 2019 Hepatitis C screening Hepatitis C Screening [facility] Start: 2019 HEPATITIS C SCREENING HEPATITIS C SCREENING [facility] Start: 2019 HIV SCREENING HIV SCREENING [facility] Start: 2019 HIV screening HIV Screening [facility] Start: 2019 Screening for Chlamydia trachomatis Chlamydia Screening (18-24) [facility] Start: 2017 Meningococcal B Vaccine: Consider Based On Risk (1 of 2 - Patient Seeks Protection) Meningococcal B Vaccine: Consider Based On Risk (1 of 2 - Patient Seeks Protection) [facility] Start: 2017 MENINGOCOCCAL B: Consider based on risk (1 of 2 - Patient Seeks Protection) MENINGOCOCCAL B: Consider based on risk (1 of 2 - Patient Seeks Protection) [facility] Start: 02-09-2016 HIV screening HIV Screening [facility] Start: 2015 PEDS TO ADULT TRANSITION ANNUAL ASSESSMENT PEDS TO ADULT TRANSITION ANNUAL ASSESSMENT [facility] Start: 01-22-2015 Vaccination for human papillomavirus HPV Vaccines (2 - 2-dose series) [facility] Start: 2013 Depression Monitoring Depression Monitoring [facility] Start: 2013 Depression Screening Depression Screening [facility] Start: 2013 PEDS TO ADULT TRANSITION INITIAL DISCUSSION PEDS TO ADULT TRANSITION INITIAL DISCUSSION [facility] Start: 02-09-2012 Vaccination for human papillomavirus HPV Vaccines (1 - 2-dose series) [facility] Start: 2011 Diabetic foot examination [facility] Start: 2011 Glaucoma screening [facility] Start: 2011 MENINGOCOCCAL B: Consider based on risk (1 of 2 - Risk Bexsero 2-dose series) MENINGOCOCCAL B: Consider based on risk (1 of 2 - Risk Bexsero 2-dose series) [facility] Start: 2011 Microalbumin measurement, urine, quantitative Urine Microalbumin [facility] Start: 2011 Ophthalmic examination and evaluation Ophthalmology Exam [facility] Start: 2011 Preventive dental service Diabetes: Dental Exam [facility] Start: 2011 Urine screening for protein Urine Microalbumin [facility] Start: 11-15-2009 Varicella vaccination Varicella Vaccines (2 of 2 - 2-dose childhood series) [facility] Start: 2007 PNEUMOCOCCAL (1 - PCV) PNEUMOCOCCAL (1 - PCV) [facility] Start: 2007 Pneumococcal vaccination Pneumococcal Vaccine (1 of 2 - PCV) [facility] Start: 2007 Pneumococcal Vaccine: Ped or At-Risk (1 - PCV) Pneumococcal Vaccine: Ped or At-Risk (1 - PCV) [facility] Start: 2007 Pneumococcal Vaccine: Pediatrics (0 to 5 Years) and At-Risk Patients (6 to 64 Years) (1 of 2 - PCV) Pneumococcal Vaccine: Pediatrics (0 to 5 Years) and At-Risk Patients (6 to 64 Years) (1 of 2 - PCV) [facility] Start: 02-09-2004 History and physical examination, annual for health maintenance Wellness Visit [facility] Start: 2001 Hemoglobin A1c measurement [facility] Start: 2001 HIV screening HIV Screening [facility] Start: 2001 Lipid panel Lipid Panel [facility] Start: 2001 Screening for Chlamydia trachomatis [facility] Start: 2001 Screening for malignant neoplasm of cervix Pap Smear [facility] Start: 2001 Thyroid stimulating hormone measurement TSH Level [facility] End: 12-20-2022 12 lead ECG Electrocardiogram, 12-lead ECG Routine Once for 1 Occurrences starting 12/20/2022 until 12/20/2022 [facility] Work Phone: Comment on above: Once for 1 Occurrences starting 12/20/19 until 12/20/2022 End: 09-17-2023 12 lead ECG Electrocardiogram, 12-lead ECG Routine Once for 1 Occurrences starting 09/17/2023 until 09/17/2023 [facility] Work Phone: Comment on above: Once for 1 Occurrences starting 09/17/20 until 09/17/2023 End: 09-02-2025 ADULT [place] ANORECTAL MANOMETRY ADULT [place] ANORECTAL MANOMETRY Endoscopy Routine Irritable bowel syndrome with constipation 1 Occurrences starting 09/02/2024 until 09/02/2025 [facility] Work Phone: Comment on above: 1 Occurrences starting 09/02/2024 until 09/02/2025 Breath hydrogen/meth ane test BREATH TEST - LACTULOSE Procedures Routine Irritable bowel syndrome with constipation 1 Occurrences starting 09/02/2024 [facility] Comment on above: 1 Occurrences starting 09/02/2024 Calprotectin [Mass/m ass] in Stool CALPROTECTIN,FECAL Lab Routine Irritable bowel syndrome with constipation 09/07/2024 10:26 AM EDT [facility] End: 08-20-2023 Cardiac holter monitor (24 hours) [facility] Work Phone: Comment on above: Once for 1 Occurrences starting 08/20/20 until 08/20/2023 End: 02-23-2024 [place] [Moles/volume] in Serum or Plasma [place] Level Lab Routine Bipolar 1 disorder, mixed, moderate (HCC) 1 Occurrences starting 02/22/2023 until 02/23/2024 [facility] Work Phone: Comment on above: 1 Occurrences starting 02/22/2023 until 02/23/2024 End: 07-22-2024 [place] [Moles/volume] in Serum or Plasma [place] Level Lab Routine Schizoaffective disorder, bipolar type with good prognostic features (HCC) 1 Occurrences starting 07/22/2023 until 07/22/2024 [facility] Work Phone: Comment on above: 1 Occurrences starting 07/22/2023 until 07/22/2024 [place] [Moles/volum e] in Serum or Plasma [place] Level Lab Routine Schizoaffective disorder, bipolar type with good prognostic features (HCC) 07/22/2023 1:04 PM EDT [facility] Tissue exam [facility] Work Phone: Comment on above: Release Upon Ordering for 1 Occurrences starting 08/19/2023 End: 08-18-2024 XR KNEE GENERAL 4V AP BOTH/PA BOTH/LAT/MERC LEFT XR KNEE GENERAL 4V AP BOTH/PA BOTH/LAT/MERC LEFT Radiology STAT Acute pain of left knee 1 Occurrences starting 07/20/2023 until 08/18/2024 [facility] Work Phone: Comment on above: 1 Occurrences starting 07/20/2023 until 08/18/2024 Immunizations Immunization Date Immunization Notes Care Provider [facility] 12-21-2022 influenza, injectabl e, quadrivalent, preservative free Mohit Blakely MD Work Phone: [facility] 12-21-2022 influenza virus vacc ine, unspecified formulation Romina Lynch RD Work Phone: [facility] 11-23-2021 tetanus toxoid, redu aminta diphtheria toxoid, and acellular pertussis vaccine, adsorbed; Translations: [Boostrix (Tdap)] RICHARD VARGAS APRN-CN [facility] 08-15-2021 influenza virus vacc ine, unspecified formulation RICHARD VARGAS APRN-CN [facility] 01-20-2021 SARS-CoV-2 (COVID-19 ) mRNA-1273 vaccine RICHARD VARGAS MECHATRONICS TECHNICIAN-CNM [facility] Comment on above: Result Comment: 2020: [id number] 12-23-2020 SARS-CoV-2 (COVID-19 ) mRNA-1273 vaccine RICHARD VARGAS MECHATRONICS TECHNICIAN-CNM [facility] Comment on above: Result Comment: 2020: [id number] 09-29-2018 influenza virus vacc ine, unspecified formulation RICHARD VARGAS APRN-CNM [facility] 09-29-2018 influenza, injectabl e, quadrivalent, contains preservative Krislyn Aberegg PA Work Phone: [facility] Work Phone: 05-13-2018 meningococcal polysaccharide (groups A, C, Y and W-135) diphtheria toxoid conjugate vaccine (MCV4P) RICHARD VARGAS APRN-CN [facility] 08-13-2017 influenza virus vacc ine, unspecified formulation RICHARD VARGAS MECHATRONICS TECHNICIAN-CN [facility] 08-13-2017 influenza, injectabl e, quadrivalent, contains preservative Krislyn Aberegg PA Work Phone: [facility] 10-05-2016 influenza virus vacc ine, unspecified formulation RICHARD VARGAS MECHATRONICS TECHNICIAN-CN [facility] 10-19-2015 influenza virus vacc ine, unspecified formulation RICHARD VARGAS MECHATRONICS TECHNICIAN-CNM [facility] 10-19-2015 influenza, injectabl e, quadrivalent, contains preservative Krislyn Aberegg PA Work Phone: [facility] Work Phone: 09-24-2015 influenza virus vacc ine, unspecified formulation RICHARD VARGAS MECHATRONICS TECHNICIAN-CNM [facility] 07-22-2014 human papilloma viru s vaccine, quadrivalent Krislyn Aberegg PA Work Phone: [facility] 07-22-2014 Human Papillomavirus Quadval RICHARD VARGAS MECHATRONICS TECHNICIAN-CNM [facility] 07-22-2014 HPV, unspecified formulation Belgica Strange MD Work Phone: [facility] 10-02-2013 human papilloma viru s vaccine, quadrivalent Krislyn Aberegg PA Work Phone: [facility] Work Phone: 10-02-2013 influenza virus vacc ine, unspecified formulation Krisnilo Marvin PA Work Phone: [facility] Work Phone: 06-17-2013 human papilloma viru s vaccine, quadrivalent Krislyn Aberegg PA Work Phone: [facility] 06-17-2013 Human Papillomavirus Quadval RICHARD VARGAS MECHATRONICS TECHNICIAN-CN [facility] 06-17-2013 meningococcal polysaccharide (groups A, C, Y and W-135) diphtheria toxoid conjugate vaccine (MCV4P) RICHARD VARGAS MECHATRONICS TECHNICIAN-CN [facility] 06-17-2013 Meningococcal, MCV4, unspecified conjugate formulation(groups A, C, Y and W-135) Sumeetisnilo Abrenae PA Work Phone: [facility] 06-17-2013 tetanus toxoid, redu aminta diphtheria toxoid, and acellular pertussis vaccine, adsorbed RICHARD VARGAS MECHATRONICS TECHNICIAN-CNM [facility] 12-17-2011 varicella virus vaccine Kt nilo Chauhangg PA Work Phone: [facility] Work Phone: 10-22-2011 influenza virus vacc ine, unspecified formulation Bernie Chauhangg PA Work Phone: [facility] Work Phone: 09-26-2010 influenza virus vacc ine, unspecified formulation RICHARD REBECA MECHATRONICS TECHNICIAN-CNM [facility] 10-18-2009 novel influenza-H1N1 -09, all formulations Bernie Marvin PA Work Phone: [facility] Work Phone: 08-25-2009 influenza virus vacc ine, live, attenuated, for intranasal use Bernie Marvin PA Work Phone: [facility] 08-25-2009 influenza virus vacc ine, unspecified formulation RICHARD REBECA MECHATRONICS TECHNICIAN-CNM [facility] 10-07-2008 influenza virus vacc ine, unspecified formulation RICHARD REBECA MECHATRONICS TECHNICIAN-CNM [facility] 09-25-2007 influenza virus vacc ine, unspecified formulation RICHARD REBECA MECHATRONICS TECHNICIAN-CNM [facility] 10-05-2006 influenza virus vacc ine, unspecified formulation RICHARD REBECA MECHATRONICS TECHNICIAN-CNM [facility] 09-27-2005 influenza virus vacc ine, unspecified formulation RICHARD REBECA MECHATRONICS TECHNICIAN-CNM [facility] 06-08-2005 diphtheria, tetanus toxoids and acellular pertussis vaccine Krislyn Aberegg PA Work Phone: [facility] Work Phone: 06-08-2005 measles, mumps and rubella virus vaccine Krislyn Aberegg PA Work Phone: [facility] Work Phone: 06-08-2005 measles/mumps/rubell a virus vaccine RICHARD VARGSA MECHATRONICS TECHNICIAN-CNM [facility] 06-08-2005 poliovirus vaccine, inactivated Krislyn Aberegg PA Work Phone: [facility] Work Phone: 09-29-2004 influenza virus vacc ine, unspecified formulation Krislyn Aberegg PA Work Phone: [facility] Work Phone: 04-16-2004 pneumococcal conjuga te vaccine, 7 valent Krislyn Aberegg PA Work Phone: [facility] Work Phone: 12-03-2003 influenza virus vacc ine, unspecified formulation Krislyn Aberegg PA Work Phone: [facility] Work Phone: 11-01-2003 influenza virus vacc ine, unspecified formulation Krislyn Aberegg PA Work Phone: [facility] Work Phone: 10-15-2002 pneumococcal conjuga te vaccine, 7 valent Krislyn Aberegg PA Work Phone: [facility] Work Phone: 05-15-2002 diphtheria, tetanus toxoids and acellular pertussis vaccine Krislyn Aberegg PA Work Phone: [facility] Work Phone: 05-15-2002 hepatitis B pediatri c vaccine RICHARD VARGAS MECHATRONICS TECHNICIAN-CNM [facility] 05-15-2002 hepatitis B vaccine, pediatric or pediatric/adolescent dosage Bernie Abclaudinegg PA Work Phone: [facility] Work Phone: 05-08-2002 hepatitis B pediatri c vaccine RICHARD VARGAS MECHATRONICS TECHNICIAN-CNM [facility] 02-09-2002 haemophilus influenz ae type b vaccine, HbOC conjugate Krislyn Aberegg PA Work Phone: [facility] Work Phone: 02-09-2002 measles, mumps and rubella virus vaccine Sumeetislyn Aberegg PA Work Phone: [facility] Work Phone: 02-09-2002 measles/mumps/rubell a virus vaccine RICHARD VARGAS MECHATRONICS TECHNICIAN-CNM [facility] 02-09-2002 varicella virus vaccine JAYLEEN VARGAS MECHATRONICS TECHNICIAN-CNM [facility] 2001 diphtheria, tetanus toxoids and acellular pertussis vaccine Bernie Aberegg PA Work Phone: [facility] Work Phone: 2001 haemophilus influenz ae type b vaccine, HbOC conjugate Sumeetislyn Aberegg PA Work Phone: [facility] Work Phone: 2001 pneumococcal conjuga te vaccine, 7 valent Sumeetislyn Aberegg PA Work Phone: [facility] Work Phone: 2001 poliovirus vaccine, inactivated Bernie Abrenae PA Work Phone: [facility] Work Phone: 2001 diphtheria, tetanus toxoids and acellular pertussis vaccine Krislyn Aberegg PA Work Phone: [facility] Work Phone: 2001 haemophilus influenz ae type b vaccine, HbOC conjugate Krislyn Aberegg PA Work Phone: [facility] Work Phone: 2001 pneumococcal conjuga te vaccine, 7 valent Krislyn Aberegg PA Work Phone: [facility] Work Phone: 2001 poliovirus vaccine, inactivated Krislyn Aberegg PA Work Phone: [facility] Work Phone: 2001 diphtheria, tetanus toxoids and acellular pertussis vaccine Krislyn Aberegg PA Work Phone: [facility] Work Phone: 2001 haemophilus influenz ae type b vaccine, HbOC conjugate Krislyn Aberegg PA Work Phone: [facility] Work Phone: 2001 poliovirus vaccine, inactivated Krislyn Aberegg PA Work Phone: [facility] Work Phone: 2001 hepatitis B pediatri c vaccine RICHARD VARGAS MECHATRONICS TECHNICIAN[employer] [facility] 2001 hepatitis B vaccine, pediatric or pediatric/adolescent dosage Krislyn Aberegg PA Work Phone: [facility] Work Phone: 2001 hepatitis B pediatri c vaccine RICHARD VARGAS MECHATRONICS TECHNICIAN-CNM [facility] 2001 hepatitis B vaccine, pediatric or pediatric/adolescent dosage Krislyn Aberegg PA Work Phone: [facility] Work Phone: Payers Date Payer Category Payer Self-pay 2023 Medicaid HMO [facility] MEDICAID ODM [id number] 2021 Medicaid [id number] 2021 Medicaid [id number] 2021 Medicaid [id number] 2020 Unknown [id number] 2018 Unknown 2001 Unknown [id number] 2.16.840.1.303186.3.579.2.594 2001 Unknown [id number] 2.16.840.1.744882.3.579.2.903 2001 Unknown [id number] 2.16.840.1.925131.3.579.2.903 2001 Unknown [id number] 2.16.840.1.352531.3.579.2.903 2001 Unknown [id number] 2.16.840.1.553766.3.579.2.903 2001 Unknown [id number] 2.16.840.1.835481.3.579.2.903 2001 Unknown [id number] 2.16.840.1.554489.3.579.2.903 2001 Unknown [id number] 2.16840.1.944286.3.579.2.903 2001 Unknown [id number] 2.16840.1.850934.3.579.2.903 2001 Unknown [id number] 2.16.840.1.935927.3.579.2.903 2001 Unknown [id number] 2.16840.1.722882.3.579.2.903 2001 Unknown [id number] 2.16840.1.306286.3.579.2.903 2001 Unknown [id number] 2.16840.1.943131.3.579.2.903 2001 Unknown [id number] 2.16840.1.671938.3.579.2.903 2001 Unknown [id number] 2.840.1.740985.3.579.2.627 2001 Unknown [id number] 2.840.1.790996.3.579.2.627 2001 Unknown [id number] 2.840.1.284209.3.579.2.627 2001 Unknown [id number] 2.840.1.499244.3.579.2.627 2001 Unknown [id number] 2840.1.278399.3.579.2.627 2001 Unknown [id number] 2.16840.1.223214.3.579.2.627 2001 Unknown [id number] 2.16840.1.605559.3.579.2.627 Medicaid [id number] Unknown [id number] 2.16840.1.353726.3.579.2.462 Unknown [id number] 2.16840.1.150358.3.579.2.462 Unknown [id number] 2.16.840.1.702589.3.579.2.462 Unknown [id number] 2.16.840.1.441522.3.579.2.462 Unknown [id number] 2.16.840.1.197361.3.579.2.462 Unknown [id number] 2.16.840.1.417916.3.579.2.462 Unknown [id number] 2.16840.1.106204.3.579.2.462 Unknown [id number] 2.840.1.902295.3.579.2.462 Unknown [id number] 2.840.1.984690.3.579.2.462 Unknown [id number] 2.840.1.548940.3.579.2.462 Unknown [id number] 2.840.1.366713.3.579.2.462 Unknown [id number] 2.840.1.461954.3.579.2.462 Unknown [id number] 2.840.1.857305.3.579.2.462 Unknown [id number] 2.840.1.625877.3.579.2.462 Unknown [id number] 2.840.1.360090.3.579.2.462 Unknown [id number] 2.840.1.830837.3.579.2.462 Unknown [id number] 2.16840.1.023909.3.579.2.462 Unknown [id number] 2.16840.1.447455.3.579.2.462 Unknown [id number] 2.16840.1.968201.3.579.2.462 Unknown [id number] 2.16.840.1.368599.3.579.2.462 Unknown [id number] 2.840.1.378226.3.579.2.462 Unknown [id number] 2.16.840.1.194498.3.579.2.462 Unknown [id number] 2.16.840.1.526459.3.579.2.462 Unknown [id number] 2.16.840.1.939779.3.579.2.462 Unknown [id number] 2.16.840.1.417628.3.579.2.462 Unknown [id number] 2.16.840.1.066464.3.579.2.462 Unknown [id number] 2.16.840.1.664115.3.579.2.462 Unknown [id number] 2.16.840.1.622343.3.579.2.462 Unknown [id number] 2.16.840.1.486850.3.579.2.462 Unknown [id number] 2.16.840.1.343534.3.579.2.462 Unknown [id number] 2.16.840.1.992652.3.579.2.462 Unknown [id number] 2.16.840.1.476073.3.579.2.462 Unknown [id number] 2.16.840.1.059745.3.579.2.462 Unknown [id number] 2.16.840.1.556830.3.579.2.462 Social History Date Type Detail Facility Start: 08-07-2019 End: 05-01-2023 Never smoked tobacco (finding) [facility] Comment on above: no tobacco smoke exp osure Start: 2001 Sex Assigned At Female A [facility] Start: 02-15-2022 End: 05-01-2023 Tobacco use and exposure Smokeless tobacco non-user [facility] Start: 02-23-2022 End: 09-18-2023 Alcohol intake Lifetime non-drinker (finding) [facility] Start: 2001 [facility] Start: 06-04-2022 End: 08-19-2023 Exposure to SARS-CoV-2 (event) Not sure [facility] Start: 11-18-2022 End: 11-28-2022 Exposure to SARS-CoV-2 (event) Unable to assess [facility] History of tobacco use Passive smoker [facility] Start: 03-05-2023 End: 06-11-2024 Alcohol intake Current non-drinker of alcohol (finding) [facility] Start: 03-05-2023 Tobacco Comment brother smokes outsi de [facility] Start: 01-09-2023 End: 12-04-2023 History of Social function [facility] Start: 01-09-2023 End: 12-04-2023 Tobacco use panel [facility] Adult Depression Screening Assessment 8 [facility] Start: 04-22-2018 Gender identity Identifies as female gender (finding) [facility] Start: 02-15-2022 Sexual orientation Heterosexual (fin ding) [facility] Start: 05-01-2023 End: 08-29-2023 Alcohol intake Current drinker of alcohol (finding) [facility] [employer] Within the last year , have you been afraid of your partner or ex-partner? No [facility] Start: 12-04-2023 Alcohol intake Ex-drinker (finding) [facility] Start: 04-17-2023 Sex Female (finding) [facility] Medical Equipment Procedure Code Equipment Code Equipment [...] st Strips Start: 11-01-2021 Lancets Start: 11-01-2021 [id number], [id number] Start: 12-23-2014 End: 03-20-2025 Comment on above: Check BG atleast 2 t imes daily and also when does not feel well. Check BG 3-4 times d aily Functional Status Date Assessment Result Facility 08-24-2024 Functional Status Independent [facility] 06-23-2024 Functional Status Independent [facility] 06-23-2024 Functional Status ID band on, Allergy Band on, Call device within reach, Bed in low position, Wheels locked, Upper/Half-Length side-rails up, Visitor at bedside, Safety level maintained [facility] 05-09-2024 Functional Status ID band on, Allergy Band on, Call device within reach, Bed in low position, Wheels locked, personal items within reach, Bedside Cart Locked, Visitor at bedside [facility] 05-08-2024 Functional Status Independent [facility] 04-17-2024 Functional Status Independent [facility] 04-16-2024 Functional Status Awake, Lights dimmed, Resting [facility] 03-07-2024 Functional Status Independent [facility] 11-13-2023 Functional Status Independent [facility] 11-13-2023 Functional Status ID band on, Allergy Band on, Call device within reach, Bed in low position, Wheels locked, Upper/Half-Length side-rails up, Safety level maintained [facility] 05-31-2023 Functional Status Standard Safet y ID band on, Allergy Band on, Call device within reach, Bed in low position, Wheels locked, Upper/Half-Length side-rails up, personal items within reach [facility] Mental Status Date Assessment Result Facility 08-24-2024 Mental Status Orientation Oriented x 4 [facility] 08-24-2024 Mental Status [facility] 06-23-2024 Mental Status Orientation Oriented x 4 [facility] 06-23-2024 Mental Status [facility] 05-09-2024 Mental Status Oriented x 4 [facility] 05-08-2024 Mental Status Orientation Oriented x 4 [facility] 04-17-2024 Mental Status Orientation Oriented x 4 [facility] 04-16-2024 Mental Status [facility] 03-07-2024 Mental Status Orientation Oriented x 4 [facility] 11-13-2023 Mental Status Orientation Oriented x 4 [facility] 11-13-2023 Mental Status [facility] 05-31-2023 Mental Status Orientation Oriented x 4 [facility] Clinical Notes 12-19-2014 to 03-20-2025 Discharge InstructionsAttachmentsMaurisio Aviles PA-C - 03/20/2025 1:18 PM Volodymyr Jensen RN - 03/20/2025 1:18 PM Volodymyr Jensen RN - 03/20/2025 1:18 PM EDTLpadmini Agee MA - 09/26/2023 8:15 AM EDT Note Date & Type Note Facility 03-20-2025 Hospital Discharge instructions Maurisio Aviles PA-C - 03/20/2025 2:03 PM EDT We recommend you follow-up with ophthalmology in the next week to reevaluate your condition. Use topical antibiotic as prescribed. Do not continue contact lens use until you are recovered and reevaluated by ophthalmology. If you develop any new or worsening symptoms contact your doctor or return to the ED, we suggest [facility] where there are ophthalmology services to consult. The following attachments cannot be sent through Care Everywhere.Corneal Abrasion Discharge Instructions (Citizen Of [place])documented in this encounter [facility] 03-20-2025 Emergency department Note EMERGENCY DEPARTMENT ENCOUNTER Pt Name: Martita Hernandez Birthdate 2000 Date of evaluation: 03/20/2025 ED Provider: Maurisio Aviles PA-C CHIEF COMPLAINT Chief Complaint Patient presents with Eye Problem Contact stuck HISTORY OF PRESENT ILLNESS (Location/Symptom, Timing/Onset, Context/Setting, Quality, Duration, Modifying Factors, Severity) Note limiting factors. I wore appropriate PPE for the entirety of this encounter. HPI Martita Hernandez is a 25 y.o. female who presents to the emergency department with concern that contact lens is still stuck on her right eye. She was eating lunch and suddenly felt some irritation in her right eye, went to wash out her right eye and take the contact out but then it felt like it got embedded under the upper eyelid. Paramedics evaluated her there and were concerned that there was still a contact lens embedded in the upper lid and recommend she come to the ED. She still has contact in the left eye but not having any problems with that eye. She does have glasses she can wear in the interim. Notes tearing and irritated feeling but denies any danilo visual loss. Denies discharge or bleeding. No similar issues in the past. Wears soft lenses, not daily's. Nursing Notes were reviewed. Limitations to history: None Outside historians: None REVIEW OF SYSTEMS Review of Systems 5 systems reviewed, positives and pertinent negatives as per HPI. All other systems were reviewed and are negative. PAST MEDICAL HISTORY Past Medical History: Diagnosis Date Anesthesia complication Anxiety Asthma Depression BIGGS (dyspnea on exertion) Fatigue GERD (gastroesophageal reflux disease) History of UTI Memory difficulty Morbid obesity, unspecified obesity type (HCC) Prediabetes Snoring SURGICAL HISTORY Past Surgical History: Procedure Laterality Date APPENDECTOMY 2007 SECTION, LOW TRANSVERSE Bilateral TYMPANOSTOMY TUBE PLACEMENT UPPER GI ENDOSCOPY,EXAM (HISTORICAL) 08/19/2023 WISDOM TOOTH EXTRACTION 2017 CURRENT MEDICATIONS Discharge Medication List as of 03/20/2025 2:09 PM CONTINUE these medications which have NOT CHANGED Details albuterol 108 (90 Base) MCG/ACT inhaler Inhale 2 puffs every 6 hours as needed for wheezing., Historical Med cetirizine (ZyrTEC) 10 MG tablet Starting Sat08/07/2023, Historical Med lithium 600 MG capsule Take 600 mg by mouth 2 times daily. 600 mg in the morning and 600 mg in the evening, Starting Sat01/09/2023, Historical Med lurasidone (Latuda) 60 MG tablet Take 80 mg by mouth., Starting Sat09/20/2023, Until Sat12/04/2023 at 2359, Historical Med Multiple Vitamins-Iron (MULTIVITAMIN/IRON PO) Take 1 tablet by mouth daily., Starting 06/03/2023, Historical Med propranolol (Inderal) 20 MG tablet 20 mg in the morning and 20 mg in the evening., Starting Nelia 08/08/2023, Historical Med topiramate 50 MG tablet Take 50 mg by mouth 1 (one) time each day., Historical Med VITAMIN D PO Take 5,000 Int'l Units by mouth every 7 days., Starting 06/03/2023, Historical Med ALLERGIES Penicillin g, Victoza [liraglutide], and Pcn [penicillins] FAMILY HISTORY Family History Adopted: Yes SOCIAL HISTORY Social History Socioeconomic History Marital status: Tobacco Use Smoking status: Never Smokeless tobacco: Never Substance and Sexual Activity Alcohol use: Not Currently Alcohol/week: 1.0 standard drink of alcohol Types: 1 Standard drinks or equivalent per week Drug use: Not Currently Comment: caffeine use: 2 cups of coffee a day Sexual activity: Yes Partners: Male 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 HENT: Head: Normocephalic and atraumatic. Eyes: General: Lids are normal. Lids are everted, no foreign bodies appreciated. Vision grossly intact. Right eye: No foreign body. Extraocular Movements: Extraocular movements intact. Conjunctiva/sclera: Right eye: Right conjunctiva is injected. Pupils: Right eye: Corneal abrasion present. Caleb exam negative. Slit lamp exam: Right eye: Anterior chamber quiet. No foreign body, hyphema or hypopyon. Comments: Right eye with corneal abrasion overlying the 6 o'clock position over the iris, no Caleb sign, no retained foreign bodies, lids flipped, no retained contact identified. Cardiovascular: Rate and Rhythm: Normal rate and regular rhythm. Heart sounds: Normal heart sounds. Pulmonary: Effort: Pulmonary effort is normal. Breath sounds: Normal breath sounds and air entry. No decreased breath sounds, wheezing, rhonchi or rales. Musculoskeletal: Cervical back: Normal range of motion. Skin: General: Skin is warm. Neurological: Mental Status: She is alert. DIAGNOSTIC RESULTS RADIOLOGY (Per Emergency Physician): Interpretation per the Radiologist below, if available at the time of this note: No orders to display LABS: Labs Reviewed - No data to display All other labs were within normal range or not returned as of this dictation. EMERGENCY DEPARTMENT COURSE and DIFFERENTIAL DIAGNOSIS/MDM: Vitals: Vitals: 03/20/25 1328 03/20/25 1417 BP: 125/73 127/77 Pulse: 64 61 Resp: 20 16 Temp: 36.7 C (98.1 F) TempSrc: Temporal SpO2: 100% 98% Medications tetracaine (Altacaine) 0.5 % ophthalmic solution 1-2 drop (2 drops Both Eyes Given 03/20/25 1335) fluorescein 1 MG ophthalmic strip 1 strip (1 strip Both Eyes Given 03/20/25 1335) I independently evaluated the patient with supervising attending physician available as needed for collaboration. In brief, Martita Hernandez is a 25 y.o. female who presented to the emergency department with right eye pain. Nursing notes and medical records reviewed, no recent contributory visits or studies on record. Differential considerations included retained contact lens versus abrasion due to contact lens. Initial medical management includes tetracaine for comfort and exam. Exam is consistent with likely corneal abrasion secondary to contact lens and attempting to remove it, there is no evidence of contact lens on careful exam and flipping of the lids. She felt better after tetracaine application. 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 Recommended follow-up with ophthalmology early next week to reassess her eye, return to ED recommended [facility] where there are ophthalmology services if things are worsening. Prescribed her ciprofloxacin ophthalmic ointment. Corneal abrasion care discharge instructions discussed. Discharged in stable improved condition with follow-up. PROCEDURES: Unless otherwise noted below, none Procedures FINAL IMPRESSION 1. Corneal abrasion due to contact lens, right DISPOSITION Discharge 03/20/2025 02:01:56 PM PATIENT REFERRED TO: [facility] Ophthalmology - [address] [facility] [id number] DISCHARGE MEDICATIONS: Discharge Medication List as of 03/20/2025 2:09 PM START taking these medications Details ciprofloxacin (Ciloxan) 0.3 % ophthalmic ointment Apply to right eye 4 times daily for 10 days. Apply Amount per Dose: 0.5 inch (~1 cm) per dose., Starting 03/20/2025, Until 03/30/2025, Normal (Comment: Please note this report has been produced using speech recognition software and may contain errors related to that system including errors in grammar, punctuation, and spelling, as well as words and phrases that may be inappropriate. If there are any questions or concerns please feel free to contact the dictating provider for clarification.) Maurisio Aviles PA-C (electronically signed) Emergency Medicine Provider Maurisio Aviles PA-C 03/20/25 1653 Pt arrives to ED for contact being stuck in right eye. Pt states eye is red and painful. Pt just put contact in this morning and was unable to get it out. documented in this encounter [facility] 03-20-2025 Emergency department Triage note Pt arrives to ED for contact being stuck in right eye. Pt states eye is red and painful. Pt just put contact in this morning and was unable to get it out. [facility] 03-20-2025 Physician Emergency department Note EMERGENCY DEPARTMENT ENCOUNTER Pt Name: Martita Hernandez Birthdate 2000 Date of evaluation: 03/20/2025 ED Provider: Maurisio Nobuyoshi Aviles, PA-C CHIEF COMPLAINT Chief Complaint Patient presents with Eye Problem Contact stuck HISTORY OF PRESENT ILLNESS (Location/Symptom, Timing/Onset, Context/Setting, Quality, Duration, Modifying Factors, Severity) Note limiting factors. I wore appropriate PPE for the entirety of this encounter. HPI Martita Hernandez is a 25 y.o. female who presents to the emergency department with concern that contact lens is still stuck on her right eye. She was eating lunch and suddenly felt some irritation in her right eye, went to wash out her right eye and take the contact out but then it felt like it got embedded under the upper eyelid. Paramedics evaluated her there and were concerned that there was still a contact lens embedded in the upper lid and recommend she come to the ED. She still has contact in the left eye but not having any problems with that eye. She does have glasses she can wear in the interim. Notes tearing and irritated feeling but denies any danilo visual loss. Denies discharge or bleeding. No similar issues in the past. Wears soft lenses, not daily's. Nursing Notes were reviewed. Limitations to history: None Outside historians: None REVIEW OF SYSTEMS Review of Systems 5 systems reviewed, positives and pertinent negatives as per HPI. All other systems were reviewed and are negative. PAST MEDICAL HISTORY Past Medical History: Diagnosis Date Anesthesia complication Anxiety Asthma Depression BIGGS (dyspnea on exertion) Fatigue GERD (gastroesophageal reflux disease) History of UTI Memory difficulty Morbid obesity, unspecified obesity type (HCC) Prediabetes Snoring SURGICAL HISTORY Past Surgical History: Procedure Laterality Date APPENDECTOMY 2007 SECTION, LOW TRANSVERSE Bilateral TYMPANOSTOMY TUBE PLACEMENT UPPER GI ENDOSCOPY,EXAM (HISTORICAL) 08/19/2023 WISDOM TOOTH EXTRACTION 2017 CURRENT MEDICATIONS Discharge Medication List as of 03/20/2025 2:09 PM CONTINUE these medications which have NOT CHANGED Details albuterol 108 (90 Base) MCG/ACT inhaler Inhale 2 puffs every 6 hours as needed for wheezing., Historical Med cetirizine (ZyrTEC) 10 MG tablet Starting Sat08/07/2023, Historical Med lithium 600 MG capsule Take 600 mg by mouth 2 times daily. 600 mg in the morning and 600 mg in the evening, Starting Sat01/09/2023, Historical Med lurasidone (Latuda) 60 MG tablet Take 80 mg by mouth., Starting Sat09/20/2023, Until Sat12/04/2023 at 2359, Historical Med Multiple Vitamins-Iron (MULTIVITAMIN/IRON PO) Take 1 tablet by mouth daily., Starting 06/03/2023, Historical Med propranolol (Inderal) 20 MG tablet 20 mg in the morning and 20 mg in the evening., Starting Nelia 08/08/2023, Historical Med topiramate 50 MG tablet Take 50 mg by mouth 1 (one) time each day., Historical Med VITAMIN D PO Take 5,000 Int'l Units by mouth every 7 days., Starting Sat06/03/2023, Historical Med ALLERGIES Penicillin g, Victoza [liraglutide], and Pcn [penicillins] FAMILY HISTORY Family History Adopted: Yes SOCIAL HISTORY Social History Socioeconomic History Marital status: Tobacco Use Smoking status: Never Smokeless tobacco: Never Substance and Sexual Activity Alcohol use: Not Currently Alcohol/week: 1.0 standard drink of alcohol Types: 1 Standard drinks or equivalent per week Drug use: Not Currently Comment: caffeine use: 2 cups of coffee a day Sexual activity: Yes Partners: Male 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 HENT: Head: Normocephalic and atraumatic. Eyes: General: Lids are normal. Lids are everted, no foreign bodies appreciated. Vision grossly intact. Right eye: No foreign body. Extraocular Movements: Extraocular movements intact. Conjunctiva/sclera: Right eye: Right conjunctiva is injected. Pupils: Right eye: Corneal abrasion present. Caleb exam negative. Slit lamp exam: Right eye: Anterior chamber quiet. No foreign body, hyphema or hypopyon. Comments: Right eye with corneal abrasion overlying the 6 o'clock position over the iris, no Caleb sign, no retained foreign bodies, lids flipped, no retained contact identified. Cardiovascular: Rate and Rhythm: Normal rate and regular rhythm. Heart sounds: Normal heart sounds. Pulmonary: Effort: Pulmonary effort is normal. Breath sounds: Normal breath sounds and air entry. No decreased breath sounds, wheezing, rhonchi or rales. Musculoskeletal: Cervical back: Normal range of motion. Skin: General: Skin is warm. Neurological: Mental Status: She is alert. DIAGNOSTIC RESULTS RADIOLOGY (Per Emergency Physician): Interpretation per the Radiologist below, if available at the time of this note: No orders to display LABS: Labs Reviewed - No data to display All other labs were within normal range or not returned as of this dictation. EMERGENCY DEPARTMENT COURSE and DIFFERENTIAL DIAGNOSIS/MDM: Vitals: Vitals: 03/20/25 1328 03/20/25 1417 BP: 125/73 127/77 Pulse: 64 61 Resp: 20 16 Temp: 36.7 C (98.1 F) TempSrc: Temporal SpO2: 100% 98% Medications tetracaine (Altacaine) 0.5 % ophthalmic solution 1-2 drop (2 drops Both Eyes Given 03/20/25 1335) fluorescein 1 MG ophthalmic strip 1 strip (1 strip Both Eyes Given 03/20/25 1335) I independently evaluated the patient with supervising attending physician available as needed for collaboration. In brief, Martita Hernandez is a 25 y.o. female who presented to the emergency department with right eye pain. Nursing notes and medical records reviewed, no recent contributory visits or studies on record. Differential considerations included retained contact lens versus abrasion due to contact lens. Initial medical management includes tetracaine for comfort and exam. Exam is consistent with likely corneal abrasion secondary to contact lens and attempting to remove it, there is no evidence of contact lens on careful exam and flipping of the lids. She felt better after tetracaine application. 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 Recommended follow-up with ophthalmology early next week to reassess her eye, return to ED recommended [facility] where there are ophthalmology services if things are worsening. Prescribed her ciprofloxacin ophthalmic ointment. Corneal abrasion care discharge instructions discussed. Discharged in stable improved condition with follow-up. PROCEDURES: Unless otherwise noted below, none Procedures FINAL IMPRESSION 1. Corneal abrasion due to contact lens, right DISPOSITION Discharge 03/20/2025 02:01:56 PM PATIENT REFERRED TO: [facility] Op[facility] - [address] [place] [id number] DISCHARGE MEDICATIONS: Discharge Medication List as of 03/20/2025 2:09 PM START taking these medications Details ciprofloxacin (Ciloxan) 0.3 % ophthalmic ointment Apply to right eye 4 times daily for 10 days. Apply Amount per Dose: 0.5 inch (~1 cm) per dose., Starting 03/20/2025, Until 03/30/2025, Normal (Comment: Please note this report has been produced using speech recognition software and may contain errors related to that system including errors in grammar, punctuation, and spelling, as well as words and phrases that may be inappropriate. If there are any questions or concerns please feel free to contact the dictating provider for clarification.) Maurisio Aviles PA-C (electronically signed) Emergency Medicine Provider Maurisio Aviles PA-C 03/20/25 1653 [facility] 09-07-2024 Note Borderline elevated. Re-evaluation in 4-6 weeks is recommended if clinically indicated. [facility] Comment on above: Order Comment: Speci men Type: STOOL SPECIMEN Ordering Facility: [facility] Address: [address] [place] [address] Result Comment: Inte rpretation: <50.0 ug/g: Normal 50.0 ug/g - 120.0 ug/g: Borderline elevated. Re-evaluation in 4-6 weeks is recommended if clinically indicated. >120.0 ug/g: Elevated Performed By: #### 3 [id number] #### [facility] CLIA [id number] [address] [place] [address] [place] [address] [place] 09-02-2024 Note HNO ID: [id number] Author: LUCY MAY MD Service: ? Author Type: Physician Type: Progress Notes Filed: 09/08/2024 09:14 Note Text: VIRTUAL VISIT NEW PATIENT NAME: Martita Hernandez CLINIC NO: [id number] DATE: 09/02/2024 REASON FOR VISIT Martita Hernandez [id number] 2000 has requested a video telemedicine initial consultation at the request of Self. Martita Hernandez verbalized informed consent to proceed with the video telemedicine initial consultation. Martita Hernandez was informed that the details of this video visit would be recorded as part of their electronic medical record. My recommendations will be conveyed to the consulting provider by way of shared electronic medical record, fax, or U.S. Mail. I have communicated my name and active licensure. The patient's identity and physical location were verified at the time of this visit. Either the patient or their legal medical field representative has been informed of the risks and benefits of -- and alternatives to -- treatment through a remote evaluation and consents to proceed with the evaluation remotely. Patient location at time of call: [place] Callback number: [phone] Additional encounter participants and relationship: none No chief complaint on file. PRESENTING COMPLAINT Martita Hernandez is a 24 year old female with past medical history of asthma, obesity, anxiety/ depression not controlled on medication Abdominal pain and bloating after eating food Changes in bowels- hard to loose She was started on PPI and probiotics and it helped with some of the symptoms She has chronic nausea. PRN Zofran helps She takes Ibuprofen as needed She lost 35 lbs this year DX with H pylori and Ozempic induced pancreatitis. Eradication not confirmed. Current Clinical Symptoms # of bowel movements daily: varies but usually on the constipated side. Straining ++ she is using squatty potty # of liquid stools daily: none Consistency: loose, soft, mushy, formed Bloody bowel movements: yes sometimes-BRBPR on toilet paper Urgency: yes sometimes Abdominal pain: yes Abdominal distention: yes Nausea/vomiting: yes Weight loss over last 3 months: yes: avoiding some diet General well-being: very well EGD 08/2023 STOMACH, ANTRUM, BIOPSY: - HELICOBACTER GASTRITIS Comment: Negative for intestinal metaplasia, dysplasia, and malignancy. CURRENT MEDICATIONS Current Outpatient Medications Medication Sig Dispense Refill lurasidone (LATUDA) 80 mg tablet propranolol (INDERAL) [...] tablet (Patient not taking: Reported on 12/17/2023) topiramate (TOPAMAX) 50 mg tablet lithium carbonate (ESKALITH) 300 mg capsule Take 300 mg by mouth three times daily with meals. escitalopram oxalate (LEXAPRO) 10 mg tablet Take 1 tablet by mouth once daily. azithromycin (ZITHROMAX) 250 mg tablet 0 mometasone-formoterol (DULERA) 100-5 mcg/actuation inhaler Inhale 2 Puffs as instructed twice daily. (Patient not taking: Reported on 01/15/2020 ) 1 Inhaler 3 PROAIR RESPICLICK 90 mcg/actuation aepb Inhale 2 Puffs as instructed every 4 hours as needed. 1 Inhaler 1 oral electrolytes tab (THERMOTABS) 287-180-15 mg tab Take 2 thermotabs bid po (Patient not taking: Reported on 12/30/2018 ) 120 tablet 6 metFORMIN (GLUCOPHAGE) 500 mg tablet Take 1 tablet by mouth twice daily with meals. (Patient not taking: Reported on 01/15/2020 ) 60 tablet 6 oxybutynin XL (DITROPAN XL) 5 mg 24 hr tablet Take 1 tablet by mouth once daily. (Patient not taking: Reported on 11/04/2018 ) 30 tablet 1 CALCIUM CARBONATE/VITAMIN D3 (VITAMIN D-3 ORAL) Take by mouth 3 times a WEEK. Scbrgbkwbozsfta-Hsujcyyfl-OW (BROMFED DM) 2-30-10 mg/5 mL syrup Take 5 mL by mouth four times daily as needed. 120 mL 0 ibuprofen (MOTRIN) 600 mg tablet Take 1 tablet by mouth every 6 hours as needed for Pain. 28 tablet 0 meloxicam (MOBIC) 15 mg tablet Take 1 tablet by mouth once daily. (Patient not taking: Reported on 11/04/2018 ) 30 tablet 1 fluticasone (FLONASE) 50 mcg/actuation nasal spray Use 2 Sprays in each nostril once daily. (Patient not taking: Reported on 12/30/2018 ) 1 g 6 alb (more content not included)... [facility] 09-02-2024 History of Present illness Narrative VIRTUAL VISIT NEW PATIENT NAME: Martita Hernandez [facility] NO: [id number] DATE: 09/02/2024 REASON FOR VISIT Martita Hernandez [id number] 2000 has requested a video telemedicine initial consultation at the request of Self. Martita Hernandez verbalized informed consent to proceed with the video telemedicine initial consultation. Martita Hernandez was informed that the details of this video visit would be recorded as part of their electronic medical record. My recommendations will be conveyed to the consulting provider by way of shared electronic medical record, fax, or U.S. Mail. I have communicated my name and active licensure. The patient's identity and physical location were verified at the time of this visit. Either the patient or their legal medical field representative has been informed of the risks and benefits of -- and alternatives to -- treatment through a remote evaluation and consents to proceed with the evaluation remotely. Patient location at time of call: [place] Callback number: [phone] Additional encounter participants and relationship: none No chief complaint on file. PRESENTING COMPLAINT Martita Hernandez is a 24 year old female with past medical history of asthma, obesity, anxiety/ depression not controlled on medication Abdominal pain and bloating after eating food Changes in bowels- hard to loose She was started on PPI and probiotics and it helped with some of the symptoms She has chronic nausea. PRN Zofran helps She takes Ibuprofen as needed She lost 35 lbs this year DX with H pylori and Ozempic induced pancreatitis. Eradication not confirmed. Current Clinical Symptoms # of bowel movements daily: varies but usually on the constipated side. Straining ++ she is using squatty potty # of liquid stools daily: none Consistency: loose, soft, mushy, formed Bloody bowel movements: yes sometimes-BRBPR on toilet paper Urgency: yes sometimes Abdominal pain: yes Abdominal distention: yes Nausea/vomiting: yes Weight loss over last 3 months: yes: avoiding some diet General well-being: very well EGD 08/2023 STOMACH, ANTRUM, BIOPSY: - HELICOBACTER GASTRITIS Comment: Negative for intestinal metaplasia, dysplasia, and malignancy. CURRENT MEDICATIONS Current Outpatient Medications Medication Sig Dispense Refill lurasidone (LATUDA) 80 mg tablet propranolol (INDERAL) [...] tablet (Patient not taking: Reported on 12/17/2023) topiramate (TOPAMAX) 50 mg tablet lithium carbonate (ESKALITH) 300 mg capsule Take 300 mg by mouth three times daily with meals. escitalopram oxalate (LEXAPRO) 10 mg tablet Take 1 tablet by mouth once daily. azithromycin (ZITHROMAX) 250 mg tablet 0 mometasone-formoterol (DULERA) 100-5 mcg/actuation inhaler Inhale 2 Puffs as instructed twice daily. (Patient not taking: Reported on 01/15/2020 ) 1 Inhaler 3 PROAIR RESPICLICK 90 mcg/actuation aepb Inhale 2 Puffs as instructed every 4 hours as needed. 1 Inhaler 1 oral electrolytes tab (THERMOTABS) 287-180-15 mg tab Take 2 thermotabs bid po (Patient not taking: Reported on 12/30/2018 ) 120 tablet 6 metFORMIN (GLUCOPHAGE) 500 mg tablet Take 1 tablet by mouth twice daily with meals. (Patient not taking: Reported on 01/15/2020 ) 60 tablet 6 oxybutynin XL (DITROPAN XL) 5 mg 24 hr tablet Take 1 tablet by mouth once daily. (Patient not taking: Reported on 11/04/2018 ) 30 tablet 1 CALCIUM CARBONATE/VITAMIN D3 (VITAMIN D-3 ORAL) Take by mouth 3 times a WEEK. Iifkbtyyezcmkmr-Svoqwkakp-SP (BROMFED DM) 2-30-10 mg/5 mL syrup Take 5 mL by mouth four times daily as needed. 120 mL 0 ibuprofen (MOTRIN) 600 mg tablet Take 1 tablet by mouth every 6 hours as needed for Pain. 28 tablet 0 meloxicam (MOBIC) 15 mg tablet Take 1 tablet by mouth once daily. (Patient not taking: Reported on 11/04/2018 ) 30 tablet 1 fluticasone (FLONASE) 50 mcg/actuation nasal spray Use 2 Sprays in each nostril once daily. (Patient not taking: Reported on 12/30/2018 ) 1 g 6 albuterol (PROVENTIL) 2.5 mg /3 mL (0.083 %) nebulizer solution Use 3 mL via nebulizer every 4 hours as needed. OVER 5-15 MINUTES. FOR WHEEZING AND SHORTNESS OF BREATH. 50 Vial 1 albuterol HFA (PROAIR HFA) 90 mcg/actuation inhaler Inhale 2 Puffs as instructed every 4 hours as needed. 1 Inhaler 6 + Nebulizer Supplies Nebulizer, Mask, & O2 Tubing. Use as directed. 1 Each 0 blood sugar diagnostic (FREESTYLE LITE STRIPS) test strip Check BG atleast 2 times daily and also when does not feel well. 100 Strip 6 triamcinolone (KENALOG) 0.1 % lotion Apply 1 application to affected area twice daily. (Patient not taking: Reported on 11/04/2018 ) 120 mL 0 Lancets (FREESTYLE LANCETS) lancets Check BG 3-4 times daily 100 Each 6 nebulizer accessories(OPTICHAMBER MEDIUM FACE MASK) use with albuterol 1 2 No current facility-administered medications for this visit. Omnicef [Cefdinir], Penicillins, Prozac [Fluoxetine Hcl], and Seasonal Allergies Recent Labs: CBC: WBC (k/uL) Date Value 12/26/2022 7.32 01/05/2019 5.77 Hematocrit (%) Date Value 12/26/2022 39.2 MCV (fL) Date Value 12/26/2022 86.2 Platelet Count (k/uL) Date Value 12/26/2022 408 (H) Lymph% (%) Date Value 01/05/2019 35.7 Hepatic Function Panel: Albumin (g/dL) Date Value 03/25/2024 4.7 Bilirubin, Total (mg/dL) Date Value 03/25/2024 0.3 Alkaline Phosphatase (U/L) Date Value 03/25/2024 77 AST (U/L) Date Value 03/25/2024 37 (H) ALT (U/L) Date Value 03/25/2024 57 (H) Protein, Total (g/dL) Date Value 03/25/2024 7.7 PAST MEDICAL HISTORY PAST MEDICAL HISTORY Diagnosis Date Asthma Concussion 10/12 seizure like activity, knocked out. hit head on kyung totter Left ankle sprain 05/12 Menarche 8-2011 Age 12 Multiple allergies Allergy injections Pineal hyperplasia, insulin-resistant diabetes mellitus and somatic abnormalities PMH - PAST MEDICAL HISTORY OF was addicted to cocaine at . 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 PAST SURGICAL HISTORY PAST SURGICAL HISTORY Procedure Laterality Date ADENOIDECTOMY HX APPENDECTOMY 10/09 MYRINGOTOMY HX PAST SURGICAL HISTORY OF tubes in ears x 4 PAST SURGICAL HISTORY OF adnoidectomy FAMILY HISTORY FAMILY HISTORY Adopted: Yes Problem Relation Age of Onset other (aids) Mother biological mom SOCIAL HISTORY Social History Tobacco Use Smoking status: Never Passive exposure: Yes Smokeless tobacco: Never Tobacco comments: brother smokes outside Substance Use Topics Alcohol use: No Drug use: No ROS EyesNegative for vision changes, diplopia or epiphora. Ears, Mouth, nose, throat:No problems Cardiovascular: No Problems Respiratory: Negative for cough, wheezing and shortness of breath Gastrointestinal : No problems Genitourinary: Negative Musuloskeletal: Normal Integumentary: no rashes, lesions, or jaundice Neurological: No history of neurologic problems Endocrine: Negative for cold or heat intolerance, polyuria, polydipsia and goiter. Psychiatric: Cooperative and agreeable Allergic/ Immunologic: Negative All others negative PHYSICAL EXAMINATION General: alert and appropriate, in no distress and well-hydrated, well nourished, Psych: Appropriate mood and interaction Skin: no rash noted, Head: normocephalic, no abnormality or lesion noted, Eyes: visual acuity is grossly normal, no injection,, and EOMI, Ears: external ears normal without erythema or edema, Nose: external nose normal without rhinorrhea, Oropharynx: moist mucus membranes, no tonsillar hypertrophy/exudate, uvula midline and pharynx non-erythematous, lips, teeth and gums are without obvious lesion, Neck: full ROM, no cervical LNs noted, Respiratory: breathing non-labored, and no grunting/flaring/retractions, Chest: equal chest rise with normal respiratory effort, Abdomen: flat appearing. Visible protrusions or hernias: No Incisions/scars: None Areas of pain/tenderness: Denies Neuro: Patient seen sitting with normal appearing strength and coordination. No focal motor deficits. Assessment IMPRESSION Chronic constipation with bloating and abdominal pain most likely IBS-C Chronic nausea and vomiting Weight loss on Ozempic PLAN -Blood and stool tests ordered -consult nutrition therapy -Breath test lactulose -Anorectal manometry -We would recommend kiwi-fruit (2) daily, or prune juice or prunes to help with bowel movements -We would also recommend cascara tea (not cascara sagrada) or smooth move tea -Eliminate all carbonated beverages and artificial sugars -We would also recommend that she drink 1-2L of water (not carbonated beverages) -We would recommend that after eating, light activity - 2-3 times per week for 30-45 minutes. -We would also recommend peppermint oil, IBgard -We will plan for 17g of Miralax up to three times a day I spent 45 minutes in the virtual visit, with more than 50% of the total [id number] time of the visit in counseling / coordination of care. I have confirmed and edited as necessary, the PFSH and ROS obtained by others. I will communicate my recommendations and prescriptions to the patient's primary care provider. Unrelated to E/M, telemedicine, or virtual visit service provided within previous 7 days. No E/M service or procedure anticipated within next 24 hours. Lucy May MD, September 02, 2024 8:37 AM Answers submitted by the patient for this visit: Review of [facility] (Submitted on 09/02/2024) Fever: No Chills: No Night Sweats: No Unitentional Weight Change: No A Cough: No Difficulty Breathing: No Chest Pain: No Belly pain: Yes A feeling of fullness or have belly pain after eating: Yes Food getting stuck in your throat or chest after eating: No Nausea - that is, a feeling like you could vomit: Yes Regurgitation - that is, food or liquid coming back up into your throat or mouth without vomiting, or feel burning behind your breast bone: Yes Loss of appetite: Yes To throw up or vomit: Yes Blood in your stools: Yes Black tarry stools: Yes Loose or watery stools: Yes The feeling like you need to empty your bowels right away - that is, feel as if you would have an accident: No Bowel incontinence - that is, have an accident because you cannot make it to the bathroom in time: No Problems with straining while having bowel movements , hard or lumpy stools, or feel unfinished (that you have not passed all your stool): Yes Pain in rectum or anus during bowel movements: Yes Problems with jaundice - that is, yellow discoloration of your skin or eyes, now or in the past: No Problems with having to flush the toilet more than two times due to oily stool, or see stool floating with oil: No documented in this encounter [facility] 08-24-2024 Hospital Discharge instructions Patient Education 08/24/2024 16:18:12 Headache, Migraine, Classic Migraine Headache This often [...] of your face Difficulty talking or seeing [phone] [employer] [employer] [facility]. [address] [place] [address]71. All rights reserved. This information is not intended as a substitute for professional medical care. Always follow your healthcare professional's instructions. Follow Up Care 08/24/2024 15:55:21 With:[facility] Address: [address] [place] [phone] When:2-4 days [facility] 08-24-2024 Note Discharge Instructions Thank you for allowing [facility] to assist you with your healthcare needs. The following is important discharge information regarding your hospital visit. What to Do Next Instructions from Your Care Team No qualifying data available. Post Acute Orders No qualifying data available. You Need to Schedule the Following Appointments Follow Up with [facility] When:Within 2-4 days Where:[address] [place] [address] [phone] Allergies penicillin Medications Please ask your primary [...] of your face Difficulty talking or seeing [phone] [facility]. [address] [place] [address]. All rights reserved. This information is not intended as a substitute for professional medical care. Always follow your healthcare professional's instructions. Additional Information VACCINATE! IT SAVES LIVES! Members of the community who have not yet received the COVID-19 vaccine and would like to receive it can visit one of [facility] vaccine clinics. There are many vaccine clinic locations within the [facility]. For locations and available times, please visit [email or web address] It is important to note that some COVID mobile vaccine clinics are held outdoors and may be canceled in rainy or stormy conditions. To learn more about pediatric vaccinations (ages 5-11), we invite you to visit the [facility] webpage. [email or web address] To learn more about the COVID-19 vaccine, we invite you to visit the CDC website for a list of frequently asked questions. https://www.cdc.gov/coronavirus/ 2019-ncov/vaccines/faq.html [facility] Patient Portal Access Instructions: Stay connected with your healthcare team and access your personal medical information anytime with the [facility] Patient Portal. If you would like a full copy of your medical records please contact the [facility] Medical Records Department Saturday through Saturday between 8a.m. and 4:30p.m. Please follow the directions below to access the portal: 1.Access the email account you provided upon registration to the [facility].2.Look for an invitation email from [facility].3.Open the email and access the invitation link: Accept Invitation to [facility]4.Fill in the required jernigan to create your account. Sign into [email or web address] with your username and password that you [...] you will allow to register on the [facility] Patient Portal for access to your information. You can also access the [facility] Patient Portal on the [employer] [facility]. Simply click on Health Records under Health [...] Call your local pharmacy or go to [email or web address] to find one close to you.3.Make use of household items: Use cat litter or old coffee grounds to dispose medications if other options are not available. Mix your drugs with these household products, seal them in an airtight container and throw it into the garbage. Call [facility]: [phone] to be sure your drugs can be [...] been reviewed and explained to me and I,MARTITA HERNANDEZ understand my current condition and have read and understand these discharge instructions. I have received a written copy of the plan/instructions. If I have questions, I am aware that I should contact my doctor. Patient/Topographical Engineer Signature: Date/Time: Relationship to Patient: Witness Name/Signature: Date/Time: [facility] 06-23-2024 Hospital Discharge instructions Patient Education 06/23/2024 15:31:22 Myalgias Myalgias Myalgias are another word for muscle aches and soreness. This is a symptom, not a disease. Myalgias can have many causes. A cold, the flu, or an acute infection can cause them. So can any illness with a high fever. They may happen after exertion (such as heavy exercise) or injury (such as an accident or fall). Some medicines (such as statins and certain antidepressants) can cause myalgias. They can also be a symptom of chronic or ongoing medical problems (such as lupus, chronic fatigue, or hypothyroidism). With these illnesses, other serious symptoms often occur in addition to muscle pain and soreness. Myalgias most often go away on their own. If they don't go away, come back, or are severe, testing may be needed to help find the cause. Home care Rest until you feel better. Follow instructions that you were given for how to care for yourself. This may depend on the cause of your myalgias. If myalgia is thought to be due to a medicine, be sure to talk to the doctor that prescribed the medicine about the best course of action. To control pain, take prescription or steb-gbs-iiweszv medicines as directed. Unless told not to, you can try acetaminophen or ibuprofen. Follow-up care Follow up with your healthcare provider or as advised. If your symptoms do not go away in a few days or if they come back, follow up with your healthcare provider for an exam and testing. When to see medical advice Call your healthcare provider for any of the following: Fever of 100.4 F (38 C) or higher, or as directed by your healthcare provider Pain that gets worse and not better, or that goes away and comes back New joint pains New rash Severe headache, neck pain, drowsiness, or confusion [id number] [facility]. [address] [place] [address]. All rights reserved. This information is not intended as a substitute for professional medical care. Always follow your healthcare professional's instructions. Follow Up Care 06/23/2024 14:06:42 With:[facility] Address: [address] [place] [id number] [phone] When:2-4 days [facility] 06-23-2024 Note Discharge Instructions Thank you for allowing [facility] to assist you with your healthcare needs. The following is important discharge information regarding your hospital visit. Diagnosis from Today's Visit Myalgia What to Do Next Instructions from Your Care Team No qualifying data available. Post Acute Orders No qualifying data available. You Need to Schedule the Following Appointments Follow Up with [facility] When:Within 2-4 days Where:[address] [place] [address] [phone] Allergies penicillin Medications Please ask your primary [...] medication providers or retail pharmacies. Education Materials Myalgias Myalgias are another word for muscle aches and soreness. This is a symptom, not a disease. Myalgias can have many causes. A cold, the flu, or an acute infection can cause them. So can any illness with a high fever. They may happen after exertion (such as heavy exercise) or injury (such as an accident or fall). Some medicines (such as statins and certain antidepressants) can cause myalgias. They can also be a symptom of chronic or ongoing medical problems (such as lupus, chronic fatigue, or hypothyroidism). With these illnesses, other serious symptoms often occur in addition to muscle pain and soreness. Myalgias most often go away on their own. If they don't go away, come back, or are severe, testing may be needed to help find the cause. Home care Rest until you feel better. Follow instructions that you were given for how to care for yourself. This may depend on the cause of your myalgias. If myalgia is thought to be due to a medicine, be sure to talk to the doctor that prescribed the medicine about the best course of action. To control pain, take prescription or edbv-lzy-zvapfiq medicines as directed. Unless told not to, you can try acetaminophen or ibuprofen. Follow-up care Follow up with your healthcare provider or as advised. If your symptoms do not go away in a few days or if they come back, follow up with your healthcare provider for an exam and testing. When to see medical advice Call your healthcare provider for any of the following: Fever of 100.4 F (38 C) or higher, or as directed by your healthcare provider Pain that gets worse and not better, or that goes away and comes back New joint pains New rash Severe headache, neck pain, drowsiness, or confusion [phone] [facility]. [address] [place] [address]. All rights reserved. This information is not intended as a substitute for professional medical care. Always follow your healthcare professional's instructions. Additional Information VACCINATE! IT SAVES LIVES! Members of the community who have not yet received the COVID-19 vaccine and would like to receive it can visit one of [facility] vaccine clinics. There are many vaccine clinic locations within the [facility]. For locations and available times, please visit [email or web address] It is important to note that some COVID mobile vaccine clinics are held outdoors and may be canceled in rainy or stormy conditions. To learn more about pediatric vaccinations (ages 5-11), we invite you to visit the [facility] webpage. [email or web address] To learn more about the COVID-19 vaccine, we invite you to visit the CDC website for a list of frequently asked questions. https://www.cdc.gov/coronavirus/ 2019-ncov/vaccines/faq.html [facility] Access Instructions: Stay connected with your healthcare team and access your personal medical information anytime with the [facility] Portal. If you would like a full copy of your medical records please contact the [facility] Medical Records Department Saturday through Saturday between 8a.m. and 4:30p.m. Please follow the directions below to access the portal: 1.Access the email account you provided upon registration to the [facility].2.Look for an invitation email from [facility].3.Open the email and access the invitation link: Accept [facility] to [facility]4.Fill in the required jernigan to create your account. Sign into [email or web address] with your username and password that you [...] you will allow to register on the [facility] Patient Portal for access to your information. You can also access the [facility] Patient Portal on the [employer]. Simply click on Health Records under Health Data and then click on the Z2 logo. HOW TO SAFELY DISPOSE OF PRESCRIPTION [...] Call your local pharmacy or go to [email or web address] to find one close to you.3.Make use of household items: Use cat litter or old coffee grounds to dispose medications if other options are not available. Mix your drugs with these household products, seal them in an airtight container and throw it into the garbage. Call [facility]: [phone] to be sure your drugs can be [...] a CHART COPY Signatures Patient Education Materials Myalgias Medication Leaflets My discharge plan and instructions have been reviewed and explained to me and I,MARTITA HERNANDEZ understand my current condition and have read and understand these discharge instructions. I have received a written copy of the plan/instructions. If I have questions, I am aware that I should contact my doctor. Patient/Topographical Engineer Signature: Date/Time: Relationship to Patient: Witness Name/Signature: Date/Time: [facility] 06-11-2024 History of Present illness Narrative Radiology Service Progress Note PATIENT NAME: Martita Hernandez DATE OF SERVICE: June 11, 2024 TIME: 12:24 PM PATIENT IDENTITY VERIFICATION COMPLETED USING TWO (2) IDENTIFIERS: Name and Date of confirmed by patient verbally. FALL SCREENING: Has the patient had 2 falls in the last year or 1 fall with injury or currently using an Ambulatory Assistive Device (Walker, Cane, Wheelchair, Crutches, etc.)? No PATIENT GENDER DATA: Female. status: : No status: NO. PATIENT RELEVANT IMPLANT DATA REVIEWED: Yes PATIENT PRESENTS WITH AN IMPLANTABLE OR ATTACHED DECORATION CHECKER: No RADIOLOGY DEPARTMENT: General X-ray: Exam(s) Completed: Upper Extremity X-Ray(s): Shoulder, AP / TRUE AP / AXILLARY right PERIPHERAL IV DATA: Not applicable SIGNED BY: RT Angela(Gauri) June 11, 2024 12:24 PM documented in this encounter [facility] 06-11-2024 Note HNO ID: [id number] Author: ALEXANDER REES RT (R) Service: ? Author Type: Social Sciences Chair Type: Progress Notes Filed: 06/11/2024 12:34 Note Text: Radiology Service Progress Note PATIENT NAME: Martita Hernandez DATE OF SERVICE: June 11, 2024 TIME: 12:24 PM PATIENT IDENTITY VERIFICATION COMPLETED USING TWO (2) IDENTIFIERS: Name and Date of confirmed by patient verbally. FALL SCREENING: Has the patient had 2 falls in the last year or 1 fall with injury or currently using an Ambulatory Assistive Device (Walker, Cane, Wheelchair, Crutches, etc.)? No PATIENT GENDER DATA: Female. status: : No status: NO. PATIENT RELEVANT IMPLANT DATA REVIEWED: Yes PATIENT PRESENTS WITH AN IMPLANTABLE OR ATTACHED DECORATION CHECKER: No RADIOLOGY DEPARTMENT: General X-ray: Exam(s) Completed: Upper Extremity X-Ray(s): Shoulder, AP / TRUE AP / AXILLARY right PERIPHERAL IV DATA: Not applicable SIGNED BY: RT Angela(R) June 11, 2024 12:24 PM [facility] 06-11-2024 Note HNO ID: [id number] Author: DAVID CARREON APRN.ARMAMENT MECHANIC Service: ? Author Type: Nurse Practitioner Type: Progress Notes Filed: 06/11/2024 13:07 Note Text: Subjective HPI Nontoxic-appearing female patient presents to urgent care chief complaint right shoulder pain. Duration of symptom 1 day. Associated symptoms right shoulder pain. Patient states radiates up into her neck and down her arm. Rates pain 6-7 out of 10. Pain is exacerbated by movement improved by rest. Does have some tingling sensation in her fingers. This is episodic. It is reproducible with movements. No known injuries. OTC medications has helped. Did get a massage this did help. Denies any fever body aches chills productive cough chest pain shortness of breath pleuritic pain hemoptysis nausea vomiting abdominal pain change in bowel or bladder habits. Past medical history prescription medication use and allergies reviewed. Is not . .Patient presents with: Shoulder Injury: Right shoulder down arm pain and tingling x1 day PAST MEDICAL HISTORY Diagnosis Date Asthma Concussion 10/12 seizure like activity, knocked out. hit head on [place] Left ankle sprain 05/12 Menarche 8-2010 Age [...] Prozac [Fluoxetine Hcl], and Seasonal Allergies MEDICATIONS lurasidone (LATUDA) 80 mg tablet propranolol (INDERAL) [...] tablet (Patient not taking: Reported on 12/17/2023) topiramate (TOPAMAX) 50 mg tablet lithium carbonate (ESKALITH) 300 mg capsule Take 300 mg by mouth three times daily with meals. escitalopram oxalate (LEXAPRO) 10 mg tablet Take [...] a WEEK. predniSONE (DELTASONE) 20 mg tablet Dkfnowomduxngig-Ouadydohf-MC (BROMFED DM) 2-30-10 mg/5 mL syrup Take [...] twice daily. (Patient not taking: Reported on (more content not included)... [facility] 06-11-2024 History of Present illness Narrative Subjective HPI Nontoxic-appearing female patient presents to urgent care chief complaint right shoulder pain. Duration of symptom 1 day. Associated symptoms right shoulder pain. Patient states radiates up into her neck and down her arm. Rates pain 6-7 out of 10. Pain is exacerbated by movement improved by rest. Does have some tingling sensation in her fingers. This is episodic. It is reproducible with movements. No known injuries. OTC medications has helped. Did get a massage this did help. Denies any fever body aches chills productive cough chest pain shortness of breath pleuritic pain hemoptysis nausea vomiting abdominal pain change in bowel or bladder habits. Past medical history prescription medication use and allergies reviewed. Is not . .Patient presents with: Shoulder Injury: Right shoulder down arm pain and tingling x1 day PAST MEDICAL HISTORY Diagnosis Date Asthma Concussion 10/12 seizure like activity, knocked out. hit head on [place] Left ankle sprain 05/12 Menarche 8-2011 Age [...] Prozac [Fluoxetine Hcl], and Seasonal Allergies MEDICATIONS lurasidone (LATUDA) 80 mg tablet propranolol (INDERAL) [...] tablet (Patient not taking: Reported on 12/17/2023) topiramate (TOPAMAX) 50 mg tablet lithium carbonate (ESKALITH) 300 mg capsule Take 300 mg by mouth three times daily with meals. escitalopram oxalate (LEXAPRO) 10 mg tablet Take [...] a WEEK. predniSONE (DELTASONE) 20 mg tablet Ugkcbyzcoaogmue-Jniyacilm-TQ (BROMFED DM) 2-30-10 mg/5 mL syrup Take [...] (Patient not taking: Reported on 11/04/2018 ) Lancets (FREESTYLE LANCETS) lancets Check BG 3-4 times daily nebulizer accessories(OPTICHAMBER MEDIUM FACE MASK) use with albuterol FAMILY HISTORY Adopted: Yes Problem Relation Age of Onset other (aids) Mother biological mom Social History Tobacco Use Smoking status: Never Passive exposure: Yes Smokeless tobacco: Never Tobacco comments: brother smokes outside Substance Use Topics Alcohol use: No Drug use: No BP 116/70 Pulse 103 Temp 36.8 C (98.2 F) Resp 16 Wt 76.2 kg (167 lb 15.9 oz) LMP 02/17/2023 (Exact Date) SpO2 99% Review of Systems Constitutional: Negative for chills, fever and malaise/fatigue. HENT: Negative for congestion, ear discharge, ear pain, sinus pain and sore throat. Eyes: Negative for blurred vision, pain, discharge and redness. Respiratory: Negative for cough, hemoptysis, sputum production, shortness of breath, wheezing and stridor. Cardiovascular: Negative for chest pain. Gastrointestinal: Negative for abdominal pain, diarrhea, nausea and vomiting. Musculoskeletal: Positive for joint pain. Negative for back pain, falls, myalgias and neck pain. Skin: Negative for itching and rash. Neurological: Negative for dizziness and headaches. Objective Physical Exam Constitutional: General: She is not in acute distress. Appearance: She is not toxic-appearing or diaphoretic. HENT: Head: Normocephalic. Jaw: No trismus, tenderness, swelling or pain on movement. Nose: Nose normal. Mouth/Throat: Mouth: Mucous membranes are moist. Pharynx: Oropharynx is clear. Uvula midline. No pharyngeal swelling, oropharyngeal exudate, posterior oropharyngeal erythema or uvula swelling. Eyes: Conjunctiva/sclera: Conjunctivae normal. Pupils: Pupils are equal, round, and reactive to light. Cardiovascular: Rate and Rhythm: Normal rate and regular rhythm. Heart sounds: Normal heart sounds. Pulmonary: Effort: Pulmonary effort is normal. No tachypnea, accessory muscle usage or respiratory distress. Breath sounds: Normal breath sounds. No stridor. No wheezing, rhonchi or rales. Abdominal: General: There is no distension. Palpations: Abdomen is soft. Tenderness: There is no abdominal tenderness. There is no guarding or rebound. Musculoskeletal: Right shoulder: Tenderness present. No swelling, deformity, effusion, laceration or bony tenderness. Normal range of motion. Normal strength. Normal pulse. Right upper arm: Normal. Right elbow: Normal. Cervical back: Normal range of motion and neck supple. No edema, erythema, rigidity or tenderness. No pain with movement. Normal range of motion. Comments: Neurovascular intact. No erythema edema. No weakness. Full range of motion. Lymphadenopathy: Cervical: No cervical adenopathy. Skin: General: Skin is warm and dry. Neurological: General: No focal deficit present. Mental Status: She is alert and oriented to person, place, and time. ASSESSMENT/PLAN: 1. Acute pain of right shoulder - ICD9: 719.41, ICD10: M25.511 - XR SHOULDER GENERAL 3V OR MORE AP/TRUE AP/OTHER RIGHT IMPRESSION: Unremarkable right shoulder x-ray. No acute findings noted on x-ray. Pain is reproducible with movements. Suspicious of strain or impingement on the nerve. Prednisone burst sent to pharmacy. Patient was educated on supportive therapies. Patient will follow up with primary care provider as needed. Patient was instructed to immediately proceed to emergency room for any new, worsening, or symptoms lasting longer than anticipated. The patient's clinical presentation is otherwise unremarkable at this time. Based on exam and clinical finding, the patient is stable for discharge. Plan of care was discussed with patient. Patient verbalizes understanding and agrees to plan of care. This note was generated using [employer] software. It may contain errors in wording, punctuation, or spelling. 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 Pt calling to see if can schedule earlier appointment. Pt was seen at [facility] ED on 05/09/24 for pelvic pain, states US completed and notes IUD in incorrect position. Pt states I have an appointment next Saturday at a different office, but I am wondering if I can have someone take the IUD out sooner. R:Pt advised prevsiouly new patient appointment scheduled 07/01 at this office. Recommended to return to office that placed IUD. Pt advised can return to ED for possible removal. Pt verbalizes understanding. Patient instructed to call back with worsening symptoms, concerns or questions. 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 Pt calling to see if can schedule earlier appointment. Pt was seen at [facility] ED on 05/09/24 for pelvic pain, states US completed and notes IUD in incorrect position. Pt states I have an appointment next Saturday at a different office, but I am wondering if I can have someone take the IUD out sooner. R:Pt advised prevsiouly new patient appointment scheduled 07/01 at this office. Recommended to return to office that placed IUD. Pt advised can return to ED for possible removal. Pt verbalizes understanding. Patient instructed to call back with worsening symptoms, concerns or questions. Reason for Disposition SEVERE pelvic pain and present > 1 hour Protocols used: Pelvic Pain - [id number] documented in this encounter [facility] 05-09-2024 Note . MICRO - Microbiology PROCEDURE: Affirm Pathogens DNA Direct Probe [*1] SOURCE: Vaginal Fluid BODY SITE: Cervix COLLECTED DATE/TIME: 05/08/2024 15:56 EDT RECEIVED DATE/TIME: 05/08/2024 18:58 EDT START DATE/TIME: 05/08/2024 18:58 EDT FREE TEXT SOURCE: FINAL REPORTS Final Report [] Verified Date/Time/Personnel: 05/09/2024 13:16 EDT Gardnerella vaginalis DNA Probe Positive Trichomonas vaginalis DNA Probe Negative Marilou species DNA Probe Negative Performing Locations *1: This test was performed at: [facility], [address] [place] [address], [id number] , [facility] ([place]) 05-09-2024 Hospital Discharge instructions Patient Education 05/09/2024 01:18:51 Pelvic Pain, Unknown Cause Pelvic Pain, Uncertain Cause Pelvic pain is pain felt in the lowest part of the belly (abdomen) and between the hipbones. The pain may occur suddenly and recently (acute). Or the pain may last for 6 months or longer (chronic). There are many possible causes of pelvic pain. The pain may be due to a problem in the female reproductive system. Or, it may be due to a problem in the digestive, urinary, or musculoskeletal systems. Based on your visit today, the exact cause of your pelvic pain is not certain. Your condition does not appear to be serious at this time. But it is important for you to keep watching for any new symptoms or worsening of your condition. General care Your healthcare provider may advise a number of ways to help manage your pain. These can include: Taking oyrn-pzt-rjhpyzg pain medicine. Stronger pain medicine may also be prescribed, if needed. Applying heat to the pelvic area. Use a heating pad or a hot pack. Taking a hot bath may also help. Getting plenty of rest. Making certain lifestyle changes. These can include practicing good posture and getting regular exercise. Studies have shown that these changes help reduce pelvic pain in some women. Seeing a physical therapist or pain specialist. These healthcare providers can discuss other ways to manage pain with you. Follow-up care Follow up with your healthcare provider, or as advised. When to seek medical advice Call your healthcare provider right away if any of the following occur: Fever of 100.4 F or higher, or as directed by your healthcare provider Pain worsens or you have sudden, severe pain or new pain Nausea, vomiting, sweating, or restlessness Dizziness or fainting Unusual vaginal discharge Abnormal vaginal bleeding (especially bleeding after menopause) [phone] [facility]. [address] [place] [address]. All rights reserved. This information is not intended as a substitute for professional medical care. Always follow your healthcare professional's instructions. Follow Up Care 05/09/2024 00:58:58 With:Call DALI Merrill [phone] Address:Unknown When:2-4 days [facility] 05-09-2024 Note Discharge Instructions Thank you for allowing [facility] to assist you with your healthcare needs. The following is important discharge information regarding your hospital visit. Diagnosis from Today's Visit Pain pelvic What to Do Next Instructions from Your Care Team No qualifying data available. Post Acute Orders No qualifying data available. You Need to Schedule the Following Appointments Follow Up with Call DALI Banuelos Pt. Refferral [phone] When:Within 2-4 days Allergies penicillin Medications Please ask your primary doctor or pharmacist before taking any other medication not listed, including over the counter drugs, herbal medications, vitamins and or supplements as they may interact with your home medications. What How Much When Why Instructions Last Dose New acetaminophen-hydrocodone ([place] 325- 5 mg oral tablet) 1 tab(s) by mouth Every 6 hours as needed for for pain Pain pelvic Duration: 3 Days Printed Prescription Unchanged albuterol [...] TAKE 1 TABLET BY MOUTH EVERY DAY Unchanged metroNIDAZOLE (metroNIDAZOLE 500 mg oral tablet) 1 tab(s) by mouth Two (2) times a day Duration: 7 Days Please take this list to your next doctor s visit. Bring all medications you take, including over the counter medications, herbals and other supplements with you to your doctor s visit. Patients and families are reminded to discard old lists and to update any records with all medication providers or retail pharmacies. Medication Leaflets acetaminophen and hydrocodone (a SEET a RAMBO agarwal and carisa PAYNE done) Verdrocet What is the most important information I should know about acetaminophen and hydrocodone? MISUSE OF OPIOID MEDICINE CAN CAUSE ADDICTION, OVERDOSE, OR . Keep the medication in a place where others cannot get to it. Taking opioid medicine during may cause life-threatening withdrawal symptoms in the . Fatal side effects can occur if you use opioid medicine with alcohol, or with other drugs that cause drowsiness or slow your breathing. Stop taking this medicine and call your doctor right away if you have skin redness or a rash that spreads and causes blistering and peeling. What is acetaminophen and hydrocodone? Acetaminophen and hydrocodone is a combination medicine used to relieve moderate to severe pain. Acetaminophen and hydrocodone contains an opioid medicine, and may be habit-forming. Acetaminophen and hydrocodone may also be used for purposes not listed in this medication guide. What should I discuss with my healthcare provider before taking acetaminophen and hydrocodone? You should not use this medicine if you are allergic to acetaminophen or hydrocodone, or if you have: severe asthma or breathing problems; or a blockage in your stomach or intestines. Tell your doctor if you have ever had: breathing problems, sleep apnea (breathing stops during sleep); liver disease; a drug or alcohol addiction; kidney disease; a head injury or seizures; urination problems; or problems with your thyroid, pancreas, or gallbladder. If you use opioid medicine while you are , your baby could become dependent on the drug. This can cause life-threatening withdrawal symptoms in the baby after it is born. Babies born dependent on opioids may need medical treatment for several weeks. Ask a doctor before using opioid medicine if you are . Tell your doctor if you notice severe drowsiness or slow breathing in the nursing baby. How should I take acetaminophen and hydrocodone? Follow all directions on your prescription label. Never take this medicine in larger amounts, or for longer than prescribed. An overdose can damage your liver or cause . Tell your doctor if you feel an increased urge to use more of this medicine. Never share this medicine with another person, especially someone with a history of drug abuse or addiction. MISUSE CAN CAUSE ADDICTION, OVERDOSE, OR . Keep the medicine in a place where others cannot get to it. Selling or giving away this medicine is against the law. Measure liquid medicine carefully. Use the dosing syringe provided, or use a medicine dose-measuring device (not a kitchen spoon). If you need surgery or medical tests, tell the doctor ahead of time that you are using this medicine. You should not stop using this medicine suddenly. Follow your doctor's instructions about tapering your dose. Store at room temperature away from moisture and heat. Keep track of your medicine. You should be aware if anyone is using it improperly or without a prescription. Do not keep leftover opioid medication. Just one dose can cause in someone using this medicine accidentally or improperly. Ask your pharmacist where to locate a drug take-back disposal program. If there is no take-back program, flush the unused medicine down the toilet. What happens if I miss a dose? Since this medicine is used for pain, you are not likely to miss a dose. Skip any missed dose if it is almost time for your next dose. Do not use two doses at one time. What happens if I overdose? Seek emergency medical attention or call the Poison Help line at . An overdose of this medicine can be fatal, especially in a child or other person using the medicine without a prescription. Overdose symptoms may include nausea, vomiting, sweating, severe drowsiness, pinpoint pupils, slow breathing, or no breathing. Your doctor may recommend you get naloxone (a medicine to reverse an opioid overdose) and keep it with you at all times. A person caring for you can give the naloxone if you stop breathing or don't wake up. Your caregiver must still get emergency medical help and may need to perform CPR (cardiopulmonary resuscitation) on you while waiting for help to arrive. Anyone can buy naloxone from a pharmacy or local health department. Make sure any person caring for you knows where you keep naloxone and how to use it. What should I avoid while taking acetaminophen and hydrocodone? Avoid driving or operating machinery until you know how this medicine will affect you. Dizziness or drowsiness can cause falls, accidents, or severe injuries. Do not drink alcohol. Dangerous side effects or could occur. Ask a doctor or pharmacist before using any other medicine that may contain acetaminophen (sometimes abbreviated as APAP). Taking certain medications together can lead to a fatal overdose. What are the possible side effects of acetaminophen and hydrocodone? Get emergency medical help if you have signs of an allergic reaction: hives; difficulty breathing; swelling of your face, lips, tongue, or throat. Opioid medicine can slow or stop your breathing, and may occur. A person caring for you should give naloxone and/or seek emergency medical attention if you have slow breathing with long pauses, blue colored lips, or if you are hard to wake up. In rare cases, acetaminophen may cause a severe skin reaction that can be fatal. This could occur even if you have taken acetaminophen in the past and had no reaction. Stop taking this medicine and call your doctor right away if you have skin redness or a rash that spreads and causes blistering and peeling. Call your doctor at once if you have: noisy breathing, sighing, shallow breathing, breathing that stops; a light-headed feeling, like you might pass out; liver problems--nausea, upper stomach pain, tiredness, loss of appetite, dark urine, harjit-colored stools, jaundice (yellowing of the skin or eyes); low cortisol levels-- nausea, vomiting, loss of appetite, dizziness, worsening tiredness or weakness; o high levels of serotonin in the body--agitation, hallucinations, fever, sweating, shivering, fast heart rate, muscle stiffness, twitching, loss of coordination, nausea, vomiting, diarrhea. Serious breathing problems may be more likely in older adults and in those who are debilitated or have wasting syndrome or chronic breathing disorders. Common side effects include: dizziness, drowsiness, feeling tired; nausea, vomiting, stomach pain; constipation; or headache. This is not a complete list of side effects and others may occur. Call your doctor for medical advice about side effects. You may report side effects to FDA at 8-378-BEW-2624. What other drugs will affect acetaminophen and hydrocodone? You may have breathing problems or withdrawal symptoms if you start or stop taking certain other medicines. Tell your doctor if you also use an antibiotic, antifungal medication, heart or blood pressure medication, seizure medication, or medicine to treat HIV or hepatitis C. Opioid medication can interact with many other drugs and cause dangerous side effects or . Be sure your doctor knows if you also use: cold or allergy medicines, bronchodilator asthma/COPD medication, or a diuretic ('water pill'); medicines for motion sickness, irritable bowel syndrome, or overactive bladder; other opioids--opioid pain medicine or prescription cough medicine; a sedative like Valium--diazepam, alprazolam, lorazepam, Xanax, Klonopin, Versed, and others; drugs that make you sleepy or slow your breathing--a sleeping pill, muscle relaxer, medicine to treat mood disorders or mental illness; drugs that affect serotonin levels in your body--a stimulant, or medicine for depression, Parkinson's disease, migraine headaches, serious infections, or nausea and vomiting. This list is not complete. Other drugs may affect acetaminophen and hydrocodone, including prescription and cawx-tjf-guumfzh medicines, vitamins, and herbal products. Not all possible interactions are listed here. Where can I get more information? Your doctor or pharmacist can provide more information about acetaminophen and hydrocodone. Remember, keep this and all other medicines out of the reach of children, never share your medicines with others, and use this medication only for the indication prescribed. Every effort has been made to ensure that the information provided by [employer]. ('[employer]') is accurate, up-to-date, and complete, but no guarantee is made to that effect. Drug information contained herein may be time sensitive. [employer] information has been compiled for use by healthcare practitioners and consumers in the [place] and therefore [employer] does not warrant that uses outside of the [place] are appropriate, unless specifically indicated otherwise. [employer] drug information does not endorse drugs, diagnose patients or recommend therapy. [employer] drug information is an informational resource designed to assist licensed healthcare practitioners in caring for their patients and/or to serve consumers viewing this service as a supplement to, and not a substitute for, the expertise, skill, knowledge and judgment of healthcare practitioners. The absence of a warning for a given drug or drug combination in no way should be construed to indicate that the drug or drug combination is safe, effective or appropriate for any given patient. [employer] does not assume any responsibility for any aspect of healthcare administered with the aid of information [employer] provides. The information contained herein is not intended to cover all possible uses, directions, precautions, warnings, drug interactions, allergic reactions, or adverse effects. If you have questions about the drugs you are taking, check with your doctor, nurse or pharmacist. Copyright 8646-6770 [employer]. Version: 19.02. Revision Date: 03/10/2024. Education Materials Pelvic Pain, Uncertain Cause Pelvic pain is pain felt in the lowest part of the belly (abdomen) and between the hipbones. The pain may occur suddenly and recently (acute). Or the pain may last for 6 months or longer (chronic). There are many possible causes of pelvic pain. The pain may be due to a problem in the female reproductive system. Or, it may be due to a problem in the digestive, urinary, or musculoskeletal systems. Based on your visit today, the exact cause of your pelvic pain is not certain. Your condition does not appear to be serious at this time. But it is important for you to keep watching for any new symptoms or worsening of your condition. General care Your healthcare provider may advise a number of ways to help manage your pain. These can include: Taking deqo-gaf-vkzhqth pain medicine. Stronger pain medicine may also be prescribed, if needed. Applying heat to the pelvic area. Use a heating pad or a hot pack. Taking a hot bath may also help. Getting plenty of rest. Making certain lifestyle changes. These can include practicing good posture and getting regular exercise. Studies have shown that these changes help reduce pelvic pain in some women. Seeing a physical therapist or pain specialist. These healthcare providers can discuss other ways to manage pain with you. Follow-up care Follow up with your healthcare provider, or as advised. When to seek medical advice Call your healthcare provider right away if any of the following occur: Fever of 100.4 F or higher, or as directed by your healthcare provider Pain worsens or you have sudden, severe pain or new pain Nausea, vomiting, sweating, or restlessness Dizziness or fainting Unusual vaginal discharge Abnormal vaginal bleeding (especially bleeding after menopause) 7835-8521 [employer]. [address] [place] [address], [place] [address]. All rights reserved. This information is not intended as a substitute for professional medical care. Always follow your healthcare professional's instructions. Additional Information VACCINATE! IT SAVES LIVES! Members of the community who have not yet received the COVID-19 vaccine and would like to receive it can visit one of [facility] vaccine clinics. There are many vaccine clinic locations within the [facility]. For locations and available times, please visit [email or web address] It is important to note that some COVID mobile vaccine clinics are held outdoors and may be canceled in rainy or stormy conditions. To learn more about pediatric vaccinations (ages 5-11), we invite you to visit the [facility] webpage. [email or web address] To learn more about the COVID-19 vaccine, we invite you to visit the CDC website for a list of frequently asked questions. https://www.cdc.gov/coronavirus/ 2019-ncov/vaccines/faq.html [facility] Access Instructions: Stay connected with your healthcare team and access your personal medical information anytime with the [facility] Portal. If you would like a full copy of your medical records please contact the [facility] Medical Records Department Saturday through Saturday between 8a.m. and 4:30p.m. Please follow the directions below to access the portal: 1.Access the email account you provided upon registration to the [facility].2.Look for an invitation email from [facility].3.Open the email and access the invitation link: Accept Invitation to [facility]4.Fill in the required jernigan to create your account. Sign into [email or web address] with your username and password that you [...] you will allow to register on the [facility] Patient Portal for access to your information. You can also access the [facility] Patient Portal on the [employer]. Simply click on Health Records under Health [...] Call your local pharmacy or go to [email or web address] to find one close to you.3.Make use of household items: Use cat litter or old coffee grounds to dispose medications if other options are not available. Mix your drugs with these household products, seal them in an airtight container and throw it into the garbage. Call [facility]: [phone] to be sure your drugs can be [...] a CHART COPY Signatures Patient Education Materials Pelvic Pain, Unknown Cause Medication Leaflets acetaminophen and hydrocodone My discharge plan and instructions have been reviewed and explained to me and I,MARTITA HERNANDEZ understand my current condition and have read and understand these discharge instructions. I have received a written copy of the plan/instructions. If I have questions, I am aware that I should contact my doctor. 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 Both good and bad bacteria are present in a healthy vagina. BV occurs when these bacteria get out of balance. The number of bad bacteria increase. And the number of good bacteria decrease. Although BV is associated with sexual activity, it is not a sexually transmitted disease. BV may or may not cause symptoms. If symptoms do occur, they can include: Thin, obando, milky-white, or sometimes green discharge Unpleasant odor or fishy smell Itching, burning, or pain in or around the vagina It is not known what causes BV, but certain factors can make the problem more likely. This can include: Douching Having sex with a new partner Having sex with more than one partner BV will sometimes go away on its own. But treatment is usually recommended. This is because untreated BV can increase the risk of more serious health problems such as: Pelvic inflammatory disease (PID) delivery (giving to a baby early if you re ) HIV and certain other sexually transmitted diseases (STDs) Infection after surgery on the reproductive organs Home care General care BV is most often treated with medicines called antibiotics. These may be given as pills or as a vaginal cream. If antibiotics are prescribed, be sure to use them exactly as directed. Also, be sure to complete all of the medicine, even if your symptoms go away. Don't douche or having sex during treatment. If you have sex with a female partner, ask your healthcare provider if she should also be treated. Prevention Don't douche. Don't have sex. If you do have sex, then take steps to lower your risk: oUse condoms when having sex. oLimit the number of sexual partners you have. Follow-up care Follow up with your healthcare provider, or as advised. When to seek medical advice Call your healthcare provider right away if: You have a fever of 100.4 F (38 C) or higher, or as directed by your provider. Your symptoms worsen, or they don t go away within a few days of starting treatment. You have new pain in the lower belly or pelvic region. You have side effects that bother you or a reaction to the pills or cream you re prescribed. You or any partners you have sex with have new symptoms, such as a rash, joint pain, or sores. 1718-2250 [employer] [facility] [employer] [facility]. [address] [place] [address], [place] [address]. All rights reserved. This information is not intended as a substitute for professional medical care. Always follow your healthcare professional's instructions. Follow Up Care 05/08/2024 14:49:15 With:[facility] Address: [address] [place] [phone] When:2-4 days [facility] 05-08-2024 Note ORIGINAL EXAMINATION: TRANSVAGINAL AND TRANSABDOMINAL PELVIC ULTRASOUND05/08/2024 5:00 pm US PELVIS NON-OB TRANSABDOMINAL AND TRANSVAGINAL WITH DUPLEX DOPPLER IMAGING INCLUDING ARTERIAL INFLOW AND VENOUS OUTFLOW TECHNIQUE: Transvaginal and transabdominal pelvic ultrasound was performed. COMPARISON: None HISTORY: ORDERING SYSTEM PROVIDED HISTORY: Reason for Exam: pelvic pain/vaginal bleeding FINDINGS: The anteverted uterus is 8.1 x 3.7 x 3.6 cm and has normal echotexture. No myometrial mass is seen. The endometrial double wall thickness is 11.7 mm, within normal limits for a premenopausal female. An IUD is partially visualized in the lower endometrial canal and cervix. The ovaries are normal in echogenicity. The RIGHT and LEFT ovaries measure 2.7 x 2.4 x 2.7 cm and 2.7 x 1.8 x 2.0 cm respectively. There is blood flow to both ovaries. Small follicles are seen in the ovaries bilaterally. There is no free intraperitoneal fluid. IMPRESSION: An IUD is visualized in the lower endometrial canal/cervix. Repositioning is recommended. No other acute sonographic abnormalities are identified. I have personally reviewed the images of this examination and agree with the resident's findings and interpretation. Interpreted by: Fam Gallardo Preliminary Report By: Leda Willams Electronically signed By Fam Gallardo Dictated Date: 05/08/2024 5:16:05 PM Prelim Date: 05/08/2024 5:21:16 PM Sign Date: 05/08/2024 5:23:32 PM Ordering Provider: FRANK ELDRIDGE [facility] 05-08-2024 Note Discharge Instructions Thank you for allowing [facility] to assist you with your healthcare needs. The following is important discharge information regarding your hospital visit. Diagnosis from Today's Visit Pelvic pain What to Do Next Instructions from Your Care Team No qualifying data available. Post Acute Orders No qualifying data available. You Need to Schedule the Following Appointments Follow Up with [facility] When:Within 2-4 days Where:[address] [place] [phone]- [phone] Allergies penicillin Medications Please ask your primary doctor or pharmacist before taking any other medication not listed, including over the counter drugs, herbal medications, vitamins and or supplements as they may interact with your home medications. What How Much When Instructions Last Dose New metroNIDAZOLE (metroNIDAZOLE 500 mg oral tablet) 1 tab(s) by mouth Two (2) times a day Duration: 7 Days Printed Prescription Unchanged albuterol (ProAir RespiClick [...] with all medication providers or retail pharmacies. Medication Leaflets metronidazole (oral/injection) (me dorys lopez) FIRST Metronidazole, Flagyl What is the most important information I should know about metronidazole? Do not drink alcohol or consume foods or medicines that contain propylene glycol while you are taking metronidazole and for at least 3 days after you stop taking it. Metronidazole has caused cancer in animal studies. However, it is not known whether this would occur in humans. Ask your doctor about your risk. What is metronidazole? Metronidazole is an antibiotic that is used to treat bacterial infections of the vagina, stomach, liver, skin, joints, brain and spinal cord, lungs, heart, or bloodstream. Metronidazole is also used to treat trichomoniasis, a sexually transmitted disease caused by a parasite. Usually both sexual partners are treated at the same time, even if one has no symptoms. Do not use metronidazole to treat any condition that has not been checked by your doctor. Metronidazole may also be used for purposes not listed in this medication guide. What should I discuss with my healthcare provider before using metronidazole? You should not use this medicine if you are allergic to metronidazole, secnidazole, or tinidazole, or if: you drank alcohol in the past 3 days; you consumed foods or medicines that contain propylene glycol in the past 3 days; or you took disulfiram (Antabuse) within the past 14 days. May harm an unborn baby. Do not use metronidazole to treat trichomoniasis during the first trimester of . Tell your doctor if you become . Not all uses of metronidazole are approved for treating children and teenagers. Metronidazole is not approved to treat vaginal infections in girls who have not begun having menstrual periods. Tell your doctor if you have ever had: liver disease; kidney disease (or if you are on dialysis); a heart rhythm disorder; a stomach or intestinal disease such as Crohn's disease; a blood cell disorder such as anemia (lack of red blood cells) or low white blood cell (WBC) counts; a fungal infection anywhere in your body; or a nerve disorder. Metronidazole has caused cancer in animal studies. However, it is not known whether this would occur in humans. Ask your doctor about your risk. You should not breastfeed within 24 hours after using metronidazole. If you use a breast pump during this time, throw out the milk and do not feed it to your baby. How should I use metronidazole? Follow all directions on your prescription label and read all medication guides or instruction sheets. Use the medicine exactly as directed. Metronidazole oral is taken by mouth. Metronidazole injection is given as an infusion into a vein. A healthcare provider will give you this injection if you are unable to take the medicine by mouth. Shake the oral suspension (liquid). Measure a dose with the supplied measuring device (not a kitchen spoon). Swallow the extended-release tablet whole and do not crush, chew, or break it. If you are treating a vaginal infection, your sexual partner may also need to take metronidazole so you don't become reinfected. Metronidazole is usually given for up to 10 days in a row. You may need to repeat this dosage several weeks later. Keep using this medicine even if your symptoms quickly improve. Skipping doses could make your infection resistant to medication. Metronidazole will not treat a viral infection (flu or a common cold). Metronidazole will not treat a vaginal yeast infection. You may even develop a new vaginal yeast infection, which may need to be treated with antifungal medication. Tell your doctor if you have symptoms such as itching or discharge during or after treatment with metronidazole. Do not share this medicine with another person, even if they have the same symptoms you have. This medicine can affect the results of certain medical tests. Tell any doctor who treats you that you are using metronidazole. Store at room temperature away from moisture and heat. What happens if I miss a dose? Take the medicine as soon as you can, but skip the missed dose if it is almost time for your next dose. Do not take two doses at one time. What happens if I overdose? Seek emergency medical attention or call the Poison Help line at . Overdose symptoms may include nausea, vomiting, numbness, tingling, or problems with balance or muscle movement. What should I avoid while using metronidazole? While taking metronidazole and for 3 days after your last dose: Do not drink alcohol or consume foods, medicines, or other products that contain alcohol or propylene glycol. You may have unpleasant effects such as headaches, nausea, vomiting, stomach cramps, and warmth or tingling under your skin. What are the possible side effects of metronidazole? Get emergency medical help if you have signs of an allergic reaction (hives, itching, warmth or tingling; fever, joint pain; dry mouth, dry vagina; stuffy nose, difficult breathing, swelling in your face or throat) or a severe skin reaction (fever, sore throat, burning eyes, skin pain, red or purple skin rash with blistering and peeling). Call your doctor at once if you have: new or worsening symptoms of infection; painful or difficult urination; confusion; a light-headed feeling (like you might pass out); vaginal itching or discharge; or blisters or ulcers in your mouth, red or swollen gums, trouble swallowing. Stop taking the medicine and call your doctor right away if you have neurologic side effects (more likely to occur while taking metronidazole rodent exterminator): numbness, tingling, or burning pain in your hands or feet; vision problems, pain behind your eyes, seeing flashes of light; muscle weakness, problems with speech or coordination; trouble speaking or understanding what is said to you; a seizure; or fever, neck stiffness, and increased sensitivity to light. Metronidazole can cause life-threatening liver problems in people with Cockayne syndrome. If you have this condition, stop taking metronidazole and contact your doctor if you have signs of liver failure--nausea, stomach pain (upper right side), dark urine, harjit-colored stools, or jaundice (yellowing of the skin or eyes). Side effects may be more likely in older adults. Common side effects may include: depression, trouble sleeping, feeling irritable; headache, dizziness, weakness; nausea, vomiting, loss of appetite, stomach pain; diarrhea, constipation; unpleasant metallic taste; rash, itching; vaginal itching or discharge, pain during sex; mouth sores; or swollen, red, or 'hairy' tongue. This is not a complete list of side effects and others may occur. Call your doctor for medical advice about side effects. You may report side effects to FDA at 0-976-QYM-7482. What other drugs will affect metronidazole? Sometimes it is not safe to use certain medicines at the same time. Some drugs can affect your blood levels of other drugs you use, which may increase side effects or make the medicines less effective. Tell your doctor about all your current medicines. Many drugs can affect metronidazole, especially: an antidepressant; asthma medication; busulfan or other cancer medicine; heart or blood pressure medication; lithium or other antipsychotic medicine; medicine to treat malaria, HIV, or other infection; or a blood thinner--warfarin, Coumadin, Jantoven. This list is not complete and many other drugs may affect metronidazole. This includes prescription and pqbl-nou-mqxrfli medicines, vitamins, and herbal products. Not all possible drug interactions are listed here. Where can I get more information? Your pharmacist can provide more information about metronidazole. Remember, keep this and all other medicines out of the reach of children, never share your medicines with others, and use this medication only for the indication prescribed. Every effort has been made to ensure that the information provided by [employer]') is accurate, up-to-date, and complete, but no guarantee is made to that effect. Drug information contained herein may be time sensitive. [employer] information has been compiled for use by healthcare practitioners and consumers in the [place] and therefore [employer] does not warrant that uses outside of the [place] are appropriate, unless specifically indicated otherwise. [employer]'s drug information does not endorse drugs, diagnose patients or recommend therapy. [employer] drug information is an informational resource designed to assist licensed healthcare practitioners in caring for their patients and/or to serve consumers viewing this service as a supplement to, and not a substitute for, the expertise, skill, knowledge and judgment of healthcare practitioners. The absence of a warning for a given drug or drug combination in no way should be construed to indicate that the drug or drug combination is safe, effective or appropriate for any given patient. [facility] does not assume any responsibility for any aspect of healthcare administered with the aid of information [facility] provides. The information contained herein is not intended to cover all possible uses, directions, precautions, warnings, drug interactions, allergic reactions, or adverse effects. If you have questions about the drugs you are taking, check with your doctor, nurse or pharmacist. Copyright 1961-1241 [facility] [employer] Version: 18.. Revision Date: 07/18/2023. Education Materials Bacterial Vaginosis You have a vaginal infection called bacterial vaginosis (BV). Both good and bad bacteria are present in a healthy vagina. BV occurs when these bacteria get out of balance. The number of bad bacteria increase. And the number of good bacteria decrease. Although BV is associated with sexual activity, it is not a sexually transmitted disease. BV may or may not cause symptoms. If symptoms do occur, they can include: Thin, obando, milky-white, or sometimes green discharge Unpleasant odor or fishy smell Itching, burning, or pain in or around the vagina It is not known what causes BV, but certain factors can make the problem more likely. This can include: Douching Having sex with a new partner Having sex with more than one partner BV will sometimes go away on its own. But treatment is usually recommended. This is because untreated BV can increase the risk of more serious health problems such as: Pelvic inflammatory disease (PID) delivery (giving to a baby early if you re ) HIV and certain other sexually transmitted diseases (STDs) Infection after surgery on the reproductive organs Home care General care BV is most often treated with medicines called antibiotics. These may be given as pills or as a vaginal cream. If antibiotics are prescribed, be sure to use them exactly as directed. Also, be sure to complete all of the medicine, even if your symptoms go away. Don't douche or having sex during treatment. If you have sex with a female partner, ask your healthcare provider if she should also be treated. Prevention Don't douche. Don't have sex. If you do have sex, then take steps to lower your risk: oUse condoms when having sex. oLimit the number of sexual partners you have. Follow-up care Follow up with your healthcare provider, or as advised. When to seek medical advice Call your healthcare provider right away if: You have a fever of 100.4 F (38 C) or higher, or as directed by your provider. Your symptoms worsen, or they don t go away within a few days of starting treatment. You have new pain in the lower belly or pelvic region. You have side effects that bother you or a reaction to the pills or cream you re prescribed. You or any partners you have sex with have new symptoms, such as a rash, joint pain, or sores. [phone] [employer]. [address] [place] [address]. All rights reserved. This information is not intended as a substitute for professional medical care. Always follow your healthcare professional's instructions. Additional Information VACCINATE! IT SAVES LIVES! Members of the community who have not yet received the COVID-19 vaccine and would like to receive it can visit one of [facility] vaccine clinics. There are many vaccine clinic locations within the [facility]. For locations and available times, please visit [email or web address] It is important to note that some COVID mobile vaccine clinics are held outdoors and may be canceled in rainy or stormy conditions. To learn more about pediatric vaccinations (ages 5-11), we invite you to visit the [facility] webpage. [email or web address]/p ages/5075-Pyzdw-Buaceuamrst-Freq gplbgz-[email or web address].html To learn more about the COVID-19 vaccine, we invite you to visit the CDC website for a list of frequently asked questions. https://www.cdc.gov/coronavirus/ 2019-ncov/vaccines/faq.html [facility] Patient Portal Access Instructions: Stay connected with your healthcare team and access your personal medical information anytime with the [facility] Patient Portal. If you would like a full copy of your medical records please contact the [facility] Medical Records Department Saturday through Saturday between 8a.m. and 4:30p.m. Please follow the directions below to access the portal: 1.Access the email account you provided upon registration to the [facility].2.Look for an invitation email from [facility].3.Open the email and access the invitation link: Accept Invitation to [facility]4.Fill in the required jernigan to create your account. Sign into [email or web address] with your username and password that you [...] you will allow to register on the [facility] Patient Portal for access to your information. You can also access the [facility] Patient Portal on the [employer]. Simply click on Health Records under Health [...] Call your local pharmacy or go to [email or web address] to find one close to you.3.Make use of household items: Use cat litter or old coffee grounds to dispose medications if other options are not available. Mix your drugs with these household products, seal them in an airtight container and throw it into the garbage. Call [facility]: [phone] to be sure your drugs can be [...] a CHART COPY Signatures Patient Education Materials Bacterial Vaginosis (BV) Medication Leaflets metronidazole (oral/injection) My discharge plan and instructions have been reviewed and explained to me and I,MARTITA HERNANDEZ understand my current condition and have read and understand these discharge instructions. I have received a written copy of the plan/instructions. If I have questions, I am aware that I should contact my doctor. 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 gonorrhoeae PCR 05/08/24Affirm Pathogens DNA Direct Probe 05/08/24 [facility] 04-17-2024 Hospital Discharge instructions Patient Education 04/16/2024 22:41:02 Muscle Strain, Extremity Muscle Strain in the Extremities A muscle strain is a stretching and tearing of muscle fibers. This causes pain, especially when you move that muscle. There may also be some swelling and bruising. Home care Keep the hurt area raised above heart level to reduce pain and swelling. This is especially important during the first 48 hours. Apply an ice pack over the injured area for 15 to 20 minutes every 3 to 6 hours. You should do this for the first 24 to 48 hours. You can make an ice pack by filling a plastic bag that seals at the top with ice cubes and then wrapping it with a thin towel. Be careful not to injure your skin with the ice treatments. Ice should never be applied directly to skin. Continue the use of ice packs for relief of pain and swelling as needed. After 48 hours, apply heat (warm shower or warm bath) for 15 to 20 minutes several times a day, or alternate ice and heat. You may use yzqd-ohv-sdkvnmy pain medicine to control pain, unless another medicine was prescribed. If you have chronic liver or kidney disease or ever had a stomach ulcer or gastrointestinal bleeding, talk with your healthcare provider before using these medicines. For leg strains: If crutches have been recommended, don t put full weight on the hurt leg until you can do so without pain. You can return to sports when you are able to hop and run on the injured leg without pain. Follow-up care Follow up with your healthcare provider, or as advised. When to seek medical advice Call your healthcare provider right away if any of these occur: The toes of the injured leg become swollen, cold, blue, numb, or tingly Pain or swelling increases [phone] [employer]. [address] [place] [address]. All rights reserved. This information is not intended as a substitute for professional medical care. Always follow your healthcare professional's instructions. 04/16/2024 22:40:39 Muscle Strain, Extremity Muscle Strain in the Extremities A muscle strain is a stretching and tearing of muscle fibers. This causes pain, especially when you move that muscle. There may also be some swelling and bruising. Home care Keep the hurt area raised above heart level to reduce pain and swelling. This is especially important during the first 48 hours. Apply an ice pack over the injured area for 15 to 20 minutes every 3 to 6 hours. You should do this for the first 24 to 48 hours. You can make an ice pack by filling a plastic bag that seals at the top with ice cubes and then wrapping it with a thin towel. Be careful not to injure your skin with the ice treatments. Ice should never be applied directly to skin. Continue the use of ice packs for relief of pain and swelling as needed. After 48 hours, apply heat (warm shower or warm bath) for 15 to 20 minutes several times a day, or alternate ice and heat. You may use tnhc-zjz-tdkmgmb pain medicine to control pain, unless another medicine was prescribed. If you have chronic liver or kidney disease or ever had a stomach ulcer or gastrointestinal bleeding, talk with your healthcare provider before using these medicines. For leg strains: If crutches have been recommended, don t put full weight on the hurt leg until you can do so without pain. You can return to sports when you are able to hop and run on the injured leg without pain. Follow-up care Follow up with your healthcare provider, or as advised. When to seek medical advice Call your healthcare provider right away if any of these occur: The toes of the injured leg become swollen, cold, blue, numb, or tingly Pain or swelling increases [phone] [employer]. [address] [place] [address]. All rights reserved. This information is not intended as a substitute for professional medical care. Always follow your healthcare professional's instructions. Follow Up Care 04/16/2024 16:20:20 With:Call Physician Referral Address:Unknown When:2-[address] [facility] 04-16-2024 Emergency department Discharge summary Discharge Instructions Thank you for allowing [facility] to assist you with your healthcare needs. The following is important discharge information regarding your hospital visit. What to Do Next Instructions from Your Care Team Discharge Home Equipment - Ordered -- Crutches, month(s), 04/16/24 22:40:00 EDT Post Acute Orders No qualifying data available. You Need to Schedule the Following Appointments Follow Up with Call Physician Referral When: When:Within 2-4 days Allergies penicillin Medications Please ask [...] medication providers or retail pharmacies. Education Materials Muscle Strain in the Extremities A muscle strain is a stretching and tearing of muscle fibers. This causes pain, especially when you move that muscle. There may also be some swelling and bruising. Home care Keep the hurt area raised above heart level to reduce pain and swelling. This is especially important during the first 48 hours. Apply an ice pack over the injured area for 15 to 20 minutes every 3 to 6 hours. You should do this for the first 24 to 48 hours. You can make an ice pack by filling a plastic bag that seals at the top with ice cubes and then wrapping it with a thin towel. Be careful not to injure your skin with the ice treatments. Ice should never be applied directly to skin. Continue the use of ice packs for relief of pain and swelling as needed. After 48 hours, apply heat (warm shower or warm bath) for 15 to 20 minutes several times a day, or alternate ice and heat. You may use adpl-hdb-exuxxzo pain medicine to control pain, unless another medicine was prescribed. If you have chronic liver or kidney disease or ever had a stomach ulcer or gastrointestinal bleeding, talk with your healthcare provider before using these medicines. For leg strains: If crutches have been recommended, don t put full weight on the hurt leg until you can do so without pain. You can return to sports when you are able to hop and run on the injured leg without pain. Follow-up care Follow up with your healthcare provider, or as advised. When to seek medical advice Call your healthcare provider right away if any of these occur: The toes of the injured leg become swollen, cold, blue, numb, or tingly Pain or swelling increases [employer]. [address] [place] [address]. All rights reserved. This information is not intended as a substitute for professional medical care. Always follow your healthcare professional's instructions. Muscle Strain in the Extremities A muscle strain is a stretching and tearing of muscle fibers. This causes pain, especially when you move that muscle. There may also be some swelling and bruising. Home care Keep the hurt area raised above heart level to reduce pain and swelling. This is especially important during the first 48 hours. Apply an ice pack over the injured area for 15 to 20 minutes every 3 to 6 hours. You should do this for the first 24 to 48 hours. You can make an ice pack by filling a plastic bag that seals at the top with ice cubes and then wrapping it with a thin towel. Be careful not to injure your skin with the ice treatments. Ice should never be applied directly to skin. Continue the use of ice packs for relief of pain and swelling as needed. After 48 hours, apply heat (warm shower or warm bath) for 15 to 20 minutes several times a day, or alternate ice and heat. You may use ykqs-spy-wlvbzoj pain medicine to control pain, unless another medicine was prescribed. If you have chronic liver or kidney disease or ever had a stomach ulcer or gastrointestinal bleeding, talk with your healthcare provider before using these medicines. For leg strains: If crutches have been recommended, don t put full weight on the hurt leg until you can do so without pain. You can return to sports when you are able to hop and run on the injured leg without pain. Follow-up care Follow up with your healthcare provider, or as advised. When to seek medical advice Call your healthcare provider right away if any of these occur: The toes of the injured leg become swollen, cold, blue, numb, or tingly Pain or swelling increases [employer]. [address] [place] [address]. All rights reserved. This information is not intended as a substitute for professional medical care. Always follow your healthcare professional's instructions. Additional Information VACCINATE! IT SAVES LIVES! Members of the community who have not yet received the COVID-19 vaccine and would like to receive it can visit one of [facility] vaccine clinics. There are many vaccine clinic locations within the [facility]. For locations and available times, please visit [email or web address] It is important to note that some COVID mobile vaccine clinics are held outdoors and may be canceled in rainy or stormy conditions. To learn more about pediatric vaccinations (ages 5-11), we invite you to visit the [facility] webpage. https://[email or web address]/p [email or web address]-Zvacw-Ybzlpyfbdgr-Freq iizvgy-Jctzp-[email or web address].html To learn more about the COVID-19 vaccine, we invite you to visit the CDC website for a list of frequently asked questions. https://www.cdc.gov/coronavirus/ 2019-ncov/vaccines/faq.html [facility] Patient Portal Access Instructions: Stay connected with your healthcare team and access your personal medical information anytime with the [facility] Patient Portal. If you would like a full copy of your medical records please contact the [facility] Medical Records Department Saturday through Saturday between 8a.m. and 4:30p.m. Please follow the directions below to access the portal: 1.Access the email account you provided upon registration to the hospital.2.Look for an invitation email from [facility].3.Open the email and access the invitation link: Accept Invitation to [facility]4.Fill in the required jernigan to create your account. Sign into [email or web address] with your username and password that you [...] you will allow to register on the [facility] Patient Portal for access to your information. You can also access the [facility] Patient Portal on the [employer]. Simply click on Health Records under Health Data and then click on the [employer] logo. HOW TO SAFELY DISPOSE OF PRESCRIPTION [...] Call your local pharmacy or go to [email or web address] to find one close to you.3.Make use of household items: Use cat litter or old coffee grounds to dispose medications if other options are not available. Mix your drugs with these household products, seal them in an airtight container and throw it into the garbage. Call [facility]: [phone] to be sure your drugs can be [...] a CHART COPY Signatures Patient Education Materials Muscle Strain, Extremity Muscle Strain, Extremity Medication Leaflets My discharge plan and instructions have been reviewed and explained to me and I,MARTITA HERNANDEZ understand my current condition and have read and understand these discharge instructions. I have received a written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 last hospitalization was in December 2022 Past suicide attempts: 2 by intentional overdose Past self injurious behavior: Positive for parasuicidal behaviors. Patient started engaging in self-injurious behaviors at age 14 and stopped about a year ago Outpatient linkage: [facility], Medication from [facility] The patient otherwise [...] problems. Social History Patient was born in [place] and was given up for adoption at because mother was a drug abuser and had mental issues. She has been raised by adoptive parents in [facility] [place] [facility]. Patient reported she grew up with 2 [...] , 2 stepchildren and 18-month son in [place] Employment: Unemployed Education: High school graduate Sexual orientation: Heterosexual Marital Status: for 2 years, dated for 3 years prior to marriage Children: A 54-yhlaf-pny son Legal History: SALOMON on 09/14/2023. Court date: September 25 Trauma History: As above History: Denies Moravian: Hoahaoism Access to firearms: Denies Substance use History [...] Collateral history from family/friends/providers Request/review prior records media services coordinator assessment/linkage/care coordination Group participation/mileau Supportive psychotherapy/structured supportive [...] 09/18/2023 9:53 AM documented in this encounter [facility] 09-17-2023 Note Formatting of this n [...] of comfort function goal Outcome: Partially Met [facility] 09-17-2023 Note Formatting of this n [...] need for follow-up care Outcome: Partially Met [facility] 09-17-2023 Note Formatting of this n [...] discharge plan and instructions Outcome: Not Addressed [facility] 08-29-2023 History of Present illness Narrative [facility] [address] [facility] [address] [facility] [address] Dept: [phone] Dept Visit type: Reason for Visit: New Patient History of Present Illness: Martita Hernandez is a 23 y.o. female patient with significant PMH of Obesity, GERD, and Asthma. Patient was referred to pulmonology for bariatric surgical clearance. Asthma is well controlled. No AE or hospitalizations. Exercise and scents trigger symptoms. Denies any history of tobacco abuse. Denies coughing, wheezing, chest tightness, chest pain, or swelling. Meds: albuterol prn and zyrtec Cliff Score 13 Patient goes to bed 9 [...] 3. Sleep disorder Stop Bang Score 4; Cliff Score 13. Ordered sleep stdy. Follow-up: Follow up via telephone to review sleep study results. On this date, 08/29/2023 I have spent 20 minutes reviewing previous notes, test results and face to face with the patient discussing the diagnosis and importance of compliance with the treatment plan as well as documenting on the day of the visit. documented in this encounter [facility] 08-29-2023 Instructions Mary Plaza Rai, MA - 08/29/2023 2:10 PM EDT YOUR APPOINTMENT TODAY WAS WITH THE [facility] LUNG NODULE CLINIC, COPD CLINIC, PULMONARY AND SLEEP MEDICINE OFFICE. PLEASE CALL OUR OFFICE AT [phone] IF YOU HAVE NOT RECEIVED YOUR TEST [...] feedback to make improvements. COVID-19 VACCINATION INFORMATION: PH. [phone] [email or web address] [facility] Central Scheduling [phone] [facility] Sleep Scheduling [phone] documented in this encounter [facility] 08-23-2023 Telephone encounter Note Noted, and DR Fritz is aware. [facility] 08-23-2023 Miscellaneous Notes Noted, and DR Fritz is aware. AGD Will route to MAJOR ASSEMBLY INSPECTOR as FYI as pt is preop. Pt was contacted via [employer] to inform of + h pylori on EGD. Pt did indicate that she is in the hospital with pancreatitis at that time. Name of caller requesting page:Dr. Salinas Phone Number of caller: [phone] Facility requesting page: [facility] ED Reason for Page: Doctor to Doctor Provider paged: Dr. Fritz Practice Name of paged provider: General Surgery Page Placed to #: Secure chat in EPIC Time Page was sent or provider contacted: 7:30 PM Page Content: Dr. Salinas @ [facility] requesting to speak to you. Call back number is [phone]. Please contact [facility] and advise, thanks! documented in this encounter [facility] 08-23-2023 Telephone encounter Note AGD Will route to MAJOR ASSEMBLY INSPECTOR as FYI as pt is preop. Pt was contacted via [employer] to inform of + h pylori on EGD. Pt did indicate that she is in the hospital with pancreatitis at that time. [facility] 08-22-2023 Telephone encounter Note Thanks, sent rx to [facility]. [facility] 08-22-2023 Miscellaneous Notes Thanks, sent rx to [facility]. EGD 08/19/23: Final Diagnosis STOMACH, ANTRUM, BIOPSY: - HELICOBACTER GASTRITIS Comment: Negative for intestinal metaplasia, dysplasia, and malignancy. AD. CCN updated Orders pended Lab order printed and mailed with info sheet. [employer] message to pt with initial directions MAJOR ASSEMBLY INSPECTOR-for review w PCN allergy. Reminder set for 10/04/23 documented in this encounter [facility] 08-21-2023 Telephone encounter Note EGD 08/19/23: Final Diagnosis STOMACH, ANTRUM, BIOPSY: - HELICOBACTER GASTRITIS Comment: Negative for intestinal metaplasia, dysplasia, and malignancy. AD. CCN updated Orders pended Lab order printed and mailed with info sheet. [employer] message to pt with initial directions MAJOR ASSEMBLY INSPECTOR-for review w PCN allergy. Reminder set for 10/04/23 [facility] 08-20-2023 Telephone encounter Note Name of caller requesting page:Dr. Salinas Phone Number of caller: [phone] Facility requesting page: [facility] ED Reason for Page: Doctor to Doctor Provider paged: Dr. Lam Seo Name of paged provider: General Surgery Page Placed to #: Secure chat in EPIC Time Page was sent or provider contacted: 7:30 PM Page Content: Dr. Salinas @ [facility] requesting to speak to you. Call back number is [phone]. Please contact [facility] and advise, thanks! [facility] 08-20-2023 Telephone encounter Note Noted, thanks. [facility] [employer] Work Phone: 08-20-2023 Miscellaneous Notes Noted, thanks. AD. Last OV-08/12/23 with VM. EGD yesterday with AGD. Findings: The esophagus was normal. The examined duodenum was normal. A small hiatal hernia was present. No biopsies or other specimens were collected for this exam. Biopsy with a cold forceps in the gastric antrum was performed for Helicobacter pylori testing. Will route to MAJOR ASSEMBLY INSPECTOR as FYI S: Patient spoke with CAC [...] understands care advice and will go to [facility] if pain gets worse. No further needs at this time. Patient instructed to call back with new or worsening symptoms. Reason for Disposition SEVERE abdominal pain (e.g., excruciating) Protocols used: Abdominal Pain - Fzely-TSPGV-MS documented in this encounter [facility] 08-20-2023 Telephone encounter Note AD. Last OV-08/12/23 with VM. EGD yesterday with AGD. Findings: The esophagus was normal. The examined duodenum was normal. A small hiatal hernia was present. No biopsies or other specimens were collected for this exam. Biopsy with a cold forceps in the gastric antrum was performed for Helicobacter pylori testing. Will route to MAJOR ASSEMBLY INSPECTOR as FYI [facility] 08-20-2023 Telephone encounter Note S: Patient spoke [...] understands care advice and will go to [facility] if pain gets worse. No further needs at this time. Patient instructed to call back with new or worsening symptoms. Reason for Disposition SEVERE abdominal pain (e.g., excruciating) Protocols used: Abdominal Pain - Lqtco-GMRIT-KX [facility] 08-19-2023 History and physical note Images from the original note were not included. CIARAN FRITZ MD , FACS, [facility] MINIMALLY INVASIVE & METABOLIC / BARIATRIC SURGERY [facility] HISTORY AND PHYSICAL 08/19/2023 PATIENT: Martita Hernandez DATE OF : 2000 - HISTORY OF PRESENT ILLNESS: The patient is a 23 y.o. female who presents for endoscopic evaluation of GERD in preparation for SLEEVE GASTRECTOMY - paulette FLORES with Dr. Ciaran Fritz. Thoroughly reviewed the [...] % infusion 50 mL/hr IntraVENous Continuous Jeremy Hallman, MECHATRONICS TECHNICIAN - ARMAMENT MECHANIC Prior to Admission medications Medication Sig Start [...] Housing Stability: Not on file Family History: [facility] REVIEW OF SYSTEMS: CONSTITUTIONAL: Negative for fatigue, [...] understanding and willingness to proceed with plan. T [facility] 08-19-2023 History and physical note Images from the original note were not included. CIARAN FRITZ MD , FACS, [facility] MINIMALLY INVASIVE & METABOLIC / BARIATRIC SURGERY [facility] HISTORY AND PHYSICAL 08/19/2023 PATIENT: Martita Hernandez DATE OF : 2000 - HISTORY [...] % infusion 50 mL/hr IntraVENous Continuous Jeremy Hallman, MECHATRONICS TECHNICIAN - ARMAMENT MECHANIC Prior to Admission medications Medication Sig Start Date End Date Taking? Authorizing Provider albuterol 108 (90 Base) MCG/ACT inhaler Inhale 2 puffs every 6 hours as needed for wheezing. Yes Historical Provider, MD cetirizine (ZyrTEC) 10 MG tablet 08/07/23 Yes [...] Housing Stability: Not on file [facility] History[facility] REVIEW OF SYSTEMS: CONSTITUTIONAL: Negative for fatigue, [...] proceed with plan. documented in this encounter [facility] 08-19-2023 Note Formatting of this n ote might be different from the original. [facility] Patient Name: Martita Hernandez Procedure Date: 08/19/2023 8:30 AM Gender: Female Date of : 2000 Age: 23 Admit Type: Outpatient Note Status: Finalized Endoscopist: Ciaran Fritz MD, [id number] Procedure: Upper GI endoscopy Indications: Esophageal reflux, [...] immediate complications. Procedure Code(s): --- Professional --- 00284, Esophagogastroduodenoscopy, flexible, transoral; with biopsy, single or multiple --- Technical --- 41520, Esophagogastroduodenoscopy, flexible, transoral; with biopsy, single or [...] due to excess calories CPT copyright 2021 [employer]. All rights reserved. The codes documented in this report are preliminary and upon hide mill worker review may be revised to meet current compliance requirements. Attending Participation: I was present and participated during the entire procedure from insertion to removal of the endoscope. Ciaran Fritz MD 08/19/2023 9:05:14 AM This report has been signed electronically. Number of Addenda: 0 Note Initiated On: 08/19/2023 8:30 AM [facility] 08-19-2023 Note Formatting of this n ote might be different from the original. [facility]: Martita [facility] Procedure Date: 08/19/2023 8:30 AM Gender: Female Date of : 2000 Age: 23 Admit Type: Outpatient Note Status: Finalized Endoscopist: Ciaran Fritz MD, [id number] Procedure: Upper GI endoscopy Indications: Esophageal reflux, [...] immediate complications. Procedure Code(s): --- Professional --- 67927, Esophagogastroduodenoscopy, flexible, transoral; with biopsy, single or multiple --- Technical --- 75292, Esophagogastroduodenoscopy, flexible, transoral; with biopsy, single or [...] due to excess calories CPT copyright 2021 [employer]. All rights reserved. The codes documented in this report are preliminary and upon hide mill worker review may be revised to meet current compliance requirements. Attending Participation: I was present and participated during the entire procedure from insertion to removal of the endoscope. Ciaran Fritz MD 08/19/2023 9:05:14 AM This report has been signed electronically. Number of Addenda: 0 Note Initiated On: 08/19/2023 8:30 AM [facility] 08-19-2023 Miscellaneous Notes [facility] Name: Martita Hernandez Procedure Date: 08/19/2023 8:30 AM Gender: Female Date of : 2000 Age: 23 Admit Type: Outpatient Note Status: Finalized Endoscopist: Ciaran Fritz MD, [id number] Procedure: Upper GI endoscopy Indications: Esophageal reflux, [...] immediate complications. Procedure Code(s): --- Professional --- 62377, Esophagogastroduodenoscopy, flexible, transoral; with biopsy, single or multiple --- Technical --- 50652, Esophagogastroduodenoscopy, flexible, transoral; with biopsy, single or [...] due to excess calories CPT copyright 2021 [employer]. All rights reserved. The codes documented in this report are preliminary and upon hide mill worker review may be revised to meet current compliance requirements. Attending Participation: I was present and participated during the entire procedure from insertion to removal of the endoscope. Ciaran Fritz MD 08/19/2023 9:05:14 AM This report has been signed electronically. Number of Addenda: 0 Note Initiated On: 08/19/2023 8:30 AM documented in this encounter [facility] 08-15-2023 Telephone encounter Note I called and scheduled patient for holter 08-20-23 9:30am [facility] and echo 12--23 10 am [facility]. Patient notified and placed on a wait list for echo. [facility] 08-15-2023 Miscellaneous Notes I called and scheduled patient for holter 08-20-23 9:30am [facility] and echo 12-6-23 10 am [facility]. Patient notified and placed on a wait list for echo. documented in this encounter [facility] 08-14-2023 History of Present illness Narrative [facility] Cardiology Note DATE of SERVICE:08/14/23 TIME of SERVICE: 2:57 PM Chief Complaint: Chief Complaint Patient presents with Cardiac Clearance History of PresentIllness: Martita Hernandez is a 23 y.o. female with [...] syncope. She states that she has an 36-rwbuy-lqi son who was born without any complications. [...] dizziness and syncope. Physical Examination: Vitals: Vitals: 08/14/23 1331 BP: 108/74 BP Location: Left arm [...] laboratory data testing. She is already taking beta-saael therapy/propanolol for migraines. She is to return [...] upcoming cardiac testing. documented in this encounter [facility] [employer] 08-12-2023 Note Addended by: JEREMY HALLMAN on: 08/12/2023 04:20 PM Modules accepted: Orders [facility] [employer] 08-12-2023 Telephone encounter Note Signed. [facility] [employer] 08-12-2023 Note Addended by: LISA RONDON on: 08/12/2023 03:08 PM Modules accepted: Orders [facility] [employer] 08-12-2023 Telephone encounter Note Nicotine please [facility] [employer] 08-12-2023 History of Present illness Narrative [facility] SURGICAL WEIGHT LOSS MANAGEMENT PROGRAM PROGRESS NOTE FOLLOW UP Patient: Martita Hernandez Date of : 2000 Service Date: 08/12/2023 DE Visit number: 3 of 3 Pre Program Weight Metrics Date of Initial Consultation:@FLOWLAST(8961)@ Initial Weight: @FLOWLAST([id number])@ Initial BMI: @FLOWLAST([id number])@ Higbee Body Weight: @FLOWLAST([id number])@ Excess Body Weight: @FLOWLAST([id number])@ Follow Up Weight Metrics Last Three Weights [...] home O2 Completed by: Ling Pritchett MA [facility] - SURGICAL WEIGHT [...] mood improved with adjusted medications per psychiatry [place]velt levels can increase after surgery --Sleep: snoring, [...] continue monthly visits until authorization/surgery date obtained. ([place]) No orders of the defined types were [...] listed in Epic. documented in this encounter [facility] 07-22-2023 Note Addended by: BELGICA STRANGE on: 07/22/2023 02:28 PM Modules accepted: Orders [facility] 07-22-2023 Note Addended by: BELGICA STRANGE on: 07/22/2023 02:28 PM Modules accepted: Orders [facility] 07-22-2023 Miscellaneous Notes Addended by: BELGICA STRANGE on: 07/22/2023 02:28 PM Modules accepted: Orders documented in this encounter [facility] 07-22-2023 History of Present illness Narrative [facility] PROGRESS NOTE 07/22/2023 Martita Hernandez, a 23 y.o. female, for follow-up visit for schizoaffective disorder, bipolar type. Patient is referred by No, Physician . Interval History: Martita is here with her and child today. [...] discussed with patient. Impression/ Plan: No Changes [place] I: Schizoaffective Disorder [place] II: Deferred [place] III: see problem list [place] IV: occupational problems, other psychosocial or environmental problems, and problems with primary support group [place] V: 61-70 mild symptoms Recommendations: RTC 8 [...] care Belgica Strange documented in this encounter [facility] 07-20-2023 Instructions Magda Guzman APRN.ARMAMENT MECHANIC - 07/20/2023 1:52 PM EDT R.I.C.E. The [...] when lying down. documented in this encounter [facility] 07-20-2023 History of Present illness Narrative This note was created using [employer]. Subjective Martita Hernandez is a 23 year old female. [...] history is provided by the patient. No cook restaurant was used. Right knee injury: No Right [...] 11/04/2018 ) predniSONE (DELTASONE) 20 mg tablet Gsgtgovjhcwvzwt-Fgwkauihp-MP (BROMFED DM) 2-30-10 mg/5 mL syrup Take [...] OTC analgesics Medrol Dose Pack Magda Guzman APRN.ARMAMENT MECHANIC documented in this encounter [facility] 07-15-2023 History of Present illness Narrative [facility] SURGICAL WEIGHT LOSS MANAGEMENT PROGRAM PROGRESS NOTE FOLLOW UP Patient: Martita Hernandez Date of : 2000 Service Date: 07/15/2023 DE Visit number: 2 of 3 Pre Program Weight Metrics Date of Initial Consultation:@FLOWLAST(8961)@ Initial Weight: @FLOWLAST([id number])@ Initial BMI: @FLOWLAST([id number])@ Higbee Body Weight: @FLOWLAST([id number])@ Excess Body Weight: @FLOWLAST([id number])@ Follow Up Weight Metrics Last Three Weights [...] O2 Completed by: Cinthya Agee MA BARIATRIC [facility] - SURGICAL WEIGHT LOSS MANAGEMENT [...] pop but less Current Activity Training for [employer] department [employer] Plan: -----Obesity Class III, Elevated BMI Diet [...] listed in Epic. documented in this encounter [facility] 06-26-2023 Telephone encounter Note UGI shows HH but no reflux. My chart message to pt. CCN updated. [facility] 06-19-2023 History of Present illness Narrative [facility] BARIATRIC NUTRITION ASSESSMENT / DIET & EXERCISE SURGICAL WEIGHT LOSS MANAGEMENT PROGRAM Date: 06/19/23 Patient Name: Martita Hernandez Date of : 2000 Type of [...] they must have someone in their home 24/7 for the first week following surgery, or [...] Mom had open WLS years ago (in [place]). Per diet recall and pt interview, pt [...] of visit. Goals: Include breakfast q day: Khmer yogurt, protein shakes, pb on 1 sl wheat toast Continue increasing water to goal of 64 oz/day Continue decreasing caffeine, to eliminate Continue decreasing carbonation, to eliminate Materials Provided: BNA packet CHO+Pro Snack List Grocery Store List Follow up: PRN Pt encouraged to call/MyChart with questions. Bariatric Nutrition Assessment completed by: Ling Arriaga RD documented in this encounter [facility] 06-19-2023 History of Present illness Narrative [facility] BARIATRIC NUTRITION ASSESSMENT / DIET & EXERCISE SURGICAL WEIGHT LOSS MANAGEMENT PROGRAM Date: 06/19/23 Patient Name: Martita Hernandez Date of : 2000 Type of [...] they must have someone in their home 24/06 for the first week following surgery, or [...] Mom had open WLS years ago (in [place]). Per diet recall and pt interview, pt [...] of visit. Goals: Include breakfast q day: Khmer yogurt, protein shakes, pb on 1 sl wheat toast Continue increasing water to goal of 64 oz/day Continue decreasing caffeine, to eliminate Continue decreasing carbonation, to eliminate Materials Provided: BNA packet CHO+Pro Snack List Grocery Store List Follow up: PRN Pt encouraged to call/MyChart with questions. Bariatric Nutrition Assessment completed by: Ling Arriaga RD documented in this encounter [facility] 06-13-2023 History of Present illness Narrative [facility] SURGICAL WEIGHT LOSS MANAGEMENT PROGRAM SUPERVISED DIET AND EXERCISE ROOMING: INITIAL VISIT Patient: Martita Hernandez Date of : 2000 Service Date: [...] cm) Initial Weight: 190 lb (86.2 kg) Higbee Body Weight: 112 lb (50.8 kg) Initial [...] home O2 Completed by: Cinthya Agee MA [facility] SURGICAL WEIGHT LOSS MANAGEMENT PROGRAM PHYSICIAN SUPERVISED DIET AND EXERCISE SURGICAL PREPARATORY REGIMEN PROGRESS NOTE INITIAL EVALUATION Patient: Martita Hernandez Service Date: 06/13/2023 Date of : [...] TYMPANOSTOMY TUBE PLACEMENT WISDOM TOOTH EXTRACTION 2017 Family History Adopted: Yes Social History Tobacco [...] (86.2 kg) Initial BMI: Initial BMI: 42.59 Higbee Body Weight: Higbee Body Weight: 112 lb (50.8 kg) Excess [...] DIET HISTORY FORM with patient (located in Home Visitor) I reviewed all of the patient's medications [...] one month. Orders Placed This Encounter Procedures [facility] Sleep Medicine Miguelangel Green MD 06/13/2023 12:43 PM documented in this encounter [facility] [employer] 06-03-2023 Telephone encounter Note Thanks! [facility] [employer] Work Phone: 06-03-2023 Miscellaneous Notes Thanks! Spoke to patient over MyChart regarding labs. [...] D: 25 (L) B1 pending Sending patient [employer] message to discuss labs. ----- Message from KAMLESH Farley CNP sent at 05/29/2023 12:17 PM EDT ----- Vit d-ok? documented in this encounter [facility] 06-03-2023 Telephone encounter Note Spoke to patient over [employer] regarding labs. Patient states she was taking [...] B12 supplement. Orders pending. Medication list updated. [facility] 05-31-2023 Hospital Discharge instructions Patient Education 05/31/2023 [...] of your face Difficulty talking or seeing 2028-2037 [employer]. [address] [place] [address]. All rights reserved. This information is not intended as a substitute for professional medical care. Always follow your healthcare professional's instructions. Follow Up Care 05/31/2023 19:53:54 With:Follow up with primary care provider Address:Unknown When:2-4 days [facility] 05-31-2023 Note Discharge Instructions Thank you for allowing [facility] to assist you with your healthcare needs. [...] of your face Difficulty talking or seeing [phone] [employer] [facility] [employer] [facility]. [address] [place] [address]. All rights reserved. This information is not intended as a substitute for professional medical care. Always follow your healthcare professional's instructions. Additional Information VACCINATE! IT SAVES LIVES! Members of the community who have not yet received the COVID-19 vaccine and would like to receive it can visit one of [facility] vaccine clinics. There are many vaccine clinic locations within the [facility]. For locations and available times, please visit [email or web address] It is important to note that some COVID mobile vaccine clinics are held outdoors and may be canceled in rainy or stormy conditions. To learn more about pediatric vaccinations (ages 5-11), we invite you to visit the [facility] webpage. [email or web address]://www.[email or web address]/p [email or web address]-Iruga-Uffgyvmzuog-Freq [email or web address]-[email or web address]-[email or web address].[email or web address] To learn more about the COVID-19 vaccine, we invite you to visit the CDC website for a list of frequently asked questions. https://www.cdc.gov/coronavirus/ 2019-ncov/vaccines/faq.html [facility] Patient Portal Access Instructions: Stay connected with your healthcare team and access your personal medical information anytime with the [facility] Patient Portal. If you would like a full copy of your medical records please contact the [facility] Medical Records Department Saturday through Saturday between 8a.m. and 4:30p.m. Please follow the directions below to access the portal: 1.Access the email account you provided upon registration to the [facility].2.Look for an invitation email from [facility].3.Open the email and access the invitation link: Accept Invitation to [employer]4.Fill in the required jernigan to create your account. Sign into [email or web address] with your username and password that you [...] you will allow to register on the [employer] Patient Portal for access to your information. You can also access the [employer] Patient Portal on the [employer]. Simply click on Health Records under Health Data and then click on the Z2 logo. HOW TO SAFELY DISPOSE OF PRESCRIPTION [...] Call your local pharmacy or go to [email or web address] to find one close to you.3.Make use of household items: Use cat litter or old coffee grounds to dispose medications if other options are not available. Mix your drugs with these household products, seal them in an airtight container and throw it into the garbage. Call [facility]: [phone] to be sure your drugs can be [...] been reviewed and explained to me and I,MARTITA HERNANDEZ understand my current condition and have read and understand these discharge instructions. I have received a written copy of the plan/instructions. If I have questions, I am aware that I should contact my doctor. Patient/Topographical Engineer Signature: Date/Time: Relationship to Patient: Witness Name/Signature: Date/Time: [facility] 05-31-2023 Evaluation + Plan note Diagnostic Tests PendingLithium Level 05/31/23 [facility] 05-29-2023 Telephone encounter Note Preop AD Labs (05/29/23) B12: 304 (L normal) Vitamin D: 25 (L) B1 pending Sending patient Stathart message to discuss labs. [facility] [employer] 05-29-2023 Telephone encounter Note ----- Message from KAMLESH Farley CNP sent at 05/29/2023 12:17 PM EDT ----- Vit d-ok? [facility] 05-21-2023 Telephone encounter Note ORDERS MAILED [facility] 05-21-2023 Miscellaneous Notes ORDERS MAILED Addended by: [...] primary procedure as outlined below: PATIENT SUMMARY Martita Fritz 23 y.o. female with Body mass index is 39.94 kg/m . 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 Initial New [facility] surgical patient Navigation & Financial Counseling [...] [] YES [] NO PRIMARY INSURANCE: Payor: [facility] MEDICAID / Plan: [facility] MEDICAID ODM / Product Type: Medicaid HMO [...] 1) Scheduled at new pt surgeon visit: Transcript Evaluator (RD) for a Nutrition Assessment (BNA) and [...] and after surgery. documented in this encounter [facility] [employer] 05-20-2023 Note Addended by: JEREMY HALLMAN on: 05/20/2023 09:06 AM Modules accepted: Orders [employer] Phone: 05-20-2023 Note Addended by: JEREMY HALLMAN on: 05/20/2023 09:06 AM Modules accepted: [facility] Note Addended by: JEREMY HALLMAN on: 05/20/2023 09:06 AM Modules accepted: Orders [facility] 05-20-2023 Telephone encounter Note Discussed, and ok to sign. [facility] 05-20-2023 Miscellaneous Notes Addended by: JEREMY HALLMAN [...] primary procedure as outlined below: PATIENT SUMMARY Martita Fritz 23 y.o. female with Body mass [...] rreview was performed by myself. Initial New [facility] surgical patient Navigation & Financial Counseling [...] [] YES [] NO PRIMARY INSURANCE: Payor: [facility] MEDICAID / Plan: [facility] MEDICAID ODM / Product Type: Medicaid HMO [...] 1) Scheduled at new pt surgeon visit: Transcript Evaluator (RD) for a Nutrition Assessment (BNA) and [...] and after surgery. documented in this encounter [facility] [employer] 05-16-2023 Telephone encounter Note Bmi 39- no comorbid have emailed financial team. [facility] [employer] Work Phone: 05-16-2023 Miscellaneous Notes Bmi 39- [...] primary procedure as outlined below: PATIENT SUMMARY Martita Fritz 23 y.o. female with Body mass index is 39.94 kg/m . 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 Initial New [facility] surgical patient Navigation & Financial Counseling Discussion Patient Communication: In office SURGEON: [] JSonia [x] AD [] MP [] TB [] [...] [] YES [] NO PRIMARY INSURANCE: Payor: [facility] MEDICAID / Plan: [employer] MEDICAID ODM / Product Type: Medicaid HMO [...] 1) Scheduled at new pt surgeon visit: Transcript Evaluator (RD) for a Nutrition Assessment (BNA) and [...] and after surgery. documented in this encounter [facility] 05-13-2023 Note Addended by: TINY PINEDA on: 05/13/2023 02:30 PM Modules accepted: Orders [facility] 05-13-2023 Note Addended by: TINY PINEDA on: 05/13/2023 02:30 PM Modules accepted: Orders [facility] 05-13-2023 Note Addended by: TINY PINEDA on: 05/13/2023 02:30 PM Modules accepted: Orders [facility] 05-13-2023 Note Addended by: TINY PINEDA on: 05/13/2023 02:30 PM Modules accepted: Orders [facility] 05-13-2023 Note Addended by: TINY PINEDA on: 05/13/2023 02:30 PM Modules accepted: Orders [facility] 05-13-2023 Note Addended by: TINY PINEDA on: 05/13/2023 02:30 PM Modules accepted: Orders [facility] 05-13-2023 Miscellaneous Notes Addended by: TINY PINEDA [...] primary procedure as outlined below: PATIENT SUMMARY Martita Fritz 23 y.o. female with Body mass index is 39.94 kg/m . 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 Does not know biological parents PCP: AMGDA KELLY INITIAL TESTING RESULTS Labwork [x] CMP, [...] rreview was performed by myself. Initial New [facility] surgical patient Navigation & Financial Counseling [...] [] YES [] NO PRIMARY INSURANCE: Payor: [facility] MEDICAID / Plan: [facility] MEDICAID ODM / Product Type: Medicaid HMO [...] 1) Scheduled at new pt surgeon visit: Transcript Evaluator (RD) for a Nutrition Assessment (BNA) and [...] and after surgery. documented in this encounter [facility] 05-13-2023 History of Present illness Narrative ENDOSCOPY ORDERS To be scheduled with: Dr. Fritz Patient is: Pre-op/Pre-Bariatric Surgery CPT code: EGD with biopsy- CPT 41011 Diagnosis: GERD- K21.9 If pre-op, Diet & Exercise Requirements are, and started/scheduled on 06/13/2023: 3 months Home O2: No Known Difficult Intubation: No LVM ASKING PT TO CALL BACK TO SCHEDULE EGD EGD W BIOPSY scheduled Date: 08/19 Time: 9AM Place: [address] [place] [address] Patient notified via phone and MAIL PRINTED Authorization for Testing Initiated. Company Name & Number Contacted for Auth: [facility] Name of Topographical Engineer: ONLINE PORTAL Name of Procedure: EGD WITH BIOPSY Cpt Code: 95669 Diagnosis Code: K21.9 Location of Procedure: [facility] Is Auth Required: YES Call Reference #: TREVOR Pending Case #: NA Clinical Reviewer: TREVOR Additional Info if given: NA Approved Case reference: [id number] Date Range for Approved Auth: -11/17/23 [facility]23 Telephone encounter Note Orders pended, Pre-op checklist scanned, EGD order sent to ALS [facility] 05-13-2023 Telephone encounter Note PLAN Encounter Diagnoses Name Primary? Vitamin D deficiency Morbid obesity with BMI of 40.0-44.9, adult (HCC) Gastroesophageal reflux disease without esophagitis Prediabetes I have recommended proceeding with the evaluation and work-up for the primary procedure as outlined below: PATIENT SUMMARY Martita Fritz 23 y.o. female with Body mass [...] full chart rreview was performed by myself. [facility] 05-01-2023 Telephone encounter Note Initial New [facility] surgical patient Navigation & Financial Counseling [...] [] YES [] NO PRIMARY INSURANCE: Payor: [facility] MEDICAID / Plan: [facility] MEDICAID ODM / Product Type: Medicaid HMO [...] 1) Scheduled at new pt surgeon visit: Transcript Evaluator (RD) for a Nutrition Assessment (BNA) and [...] and lab/testing results before and after surgery. [facility] 05-01-2023 History of Present illness Narrative [facility] SURGICAL WEIGHT LOSS MANAGEMENT PROGRAM Rooming Note - INITIAL CONSULTATION Patient: Martita Hernandez Date of : 2000 Service Date: [...] not included. CIARAN FRITZ MD , FACS, [facility] MINIMALLY INVASIVE & METABOLIC / BARIATRIC SURGERY [facility] BARIATRIC EVALUATION - HISTORY AND PHYSICAL 05/01/2023 PATIENT: Martita Hernandez DATE OF : 2000 - HISTORY OF PRESENT ILLNESS Chief Complaint: Obesity and associated conditions. Martita Hernandez is a 23 y.o. female with obesity and associated conditions who presents to the [facility] [place] for evaluation for metabolic/bariatric surgery. The patient stands Height: 4' 9.5 (146.1 cm) ([facility] HGT CHK) tall with a weight [...] primary procedure as outlined below: PATIENT SUMMARY Martita Fritz 23 y.o. female with Body mass index is 39.94 kg/m . 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 AN FRITZ MD, [facility], [facility] Automation Tester - Weight Management [place] / [facility] Brattice Builder - Advanced GI MIS, Foregut and Bariatric Surgery Fellowship ---[facility]--- Patient Care Team: Magda Kelly as PCP - General Ciaran Fritz MD as Surgeon (General Surgery) documented in this encounter [facility] 04-09-2023 History of Present illness Narrative Medication questions reviewed and answered documented in this encounter [facility] 04-08-2023 History of Present illness Narrative Medication questions answered documented in this encounter [facility] 03-05-2023 History of Present illness Narrative This note was created using PRXter. Subjective Martita Hernandez is a 23 year old female. [...] kyung totter Left ankle sprain 05/12 Menarche Age 12 Multiple allergies Allergy injections Pineal [...] a WEEK. predniSONE (DELTASONE) 20 mg tablet Flrujetbwrytlux-Yzogvbtgx-ID (BROMFED DM) 2-30-10 mg/5 mL syrup Take [...] evaluation. NABEEL Tang documented in this encounter [facility] 02-12-2023 History of Present illness Narrative Medication sent to the pharmacy documented in this encounter [facility] 01-09-2023 History of Present illness Narrative BEHAVIORAL HEALTH PSYCHIATRIC PROGRESS NOTE 01/09/2023 Martita Hernandez, a 22 y.o. female, for follow-up visit. Patient is referred by Physician No . Interval History: Martita is here with her and baby today. [...] of Knowledge: intact Labs/ Diagnostic Imaging reviewed: Norvelt level on 12/24/2022 0.6 mEq/L Response to Medication: Good ASSESSMENT AND PLAN: A: Schizoaffective disorder bipolar type, complete remission of symptoms on lithium alone. P: Continue lithium at therapeutic levels Follow-up plan was discussed with patient. Impression/ Plan: No Changes [place] I: Schizoaffective Disorder [place] II: No diagnosis [place] III: See problem list [place] IV: other psychosocial or environmental problems [place] V: 61-70 mild symptoms Recommendations: RTC 3 [...] care Belgica Strange documented in this encounter [facility] 12-24-2022 History of Present illness Narrative [...] will followup with Dr. Strange and [facility] for mental health services. No AVS sent as there was no JANET signed for the [facility] and Dr. Strange already linked in [employer]. Upon arrival patient was sleeping in bed. [...] Pt participated in an experiential activity called Totika. Pt pulled a colored block from a [...] skills group 1145 Discharge order receieved from Xander ,belongings obtained and signed by patient prior to discharge , discharge orders reviewed ,with patient Dr. Strange ordered lithium level to be checked prior to patient discharge , Xander aware patient had dose of lithium this am per scheduled orders . 1152 Lab here lithium level drawn per orders 0015 Patient received meds to bed other than invega , pharmacy informed patient to cigar packer and picker invega at her pharmacy 0045 This [...] requests a t shirt as she is hot. T shirt provided. Patient thankful. Patient reports [...] shift 8.5 Psychiatry Progress Note Patient Name: Martita Hernandez Admit Date: 1190104 MR #: [id number] : 2000 Perpetual Assessment Martita Hernandez is a 22 y.o. female presenting with gradually worsening symptoms of psychosis and bipolar mood swings. She is currently dealing with dangerous levels of suicidal ideation. She needs hospitalization despite a very tight network of support as an outpatient Diagnosis & Plan/Recommendations PRINCIPAL DIAGNOSIS: Schizoaffective disorder, bipolar type (HCC) * Schizoaffective disorder, bipolar type (HCC) Assessment & Plan A: Martita has suffered a progressive increase in symptoms [...] answered. Lebron Berumen MD 12/23/2022 4:57 PM [id number] Recreation Therapy: PT out in TV lounge when approached for group, willing to attend. Pt dressed in PJs but voiced that she was going to take shower and change clothes so to be pretty for when my comes tonight. PT was educated to the focus and purpose of group and to new leisure skill of Sequence a card and board game. PT only one in group and questioned teletypewriter installer what I would do if she was not in group, to which answer was given and pt presented self as if doing teletypewriter installer a favor by being in group because [...] Patient approached nurse's station, requested to take Norvelt, administered as ordered, patient tolerated well, oral [...] further needs at this time. Administered scheduled Norvelt per orders, patient tolerated well, oral cavity check cleared. 1214: Patient ambulated from room, now seated in the lounge with peer, socially appropriate, calm composed, denies needs at present. 1405: Patient attending group therapy session in the conference room, recreational activity of Sequence played with Amena Storey, HEEL CEMENTER MACHINE socially appropriate, engaged in the activity. 1505: Patient requested shower hygiene products, provided to patient from clean supply. Patient agreed to interaction, patient denies anxiety/depression, stating I fell pretty good actually, patient denies HI, patient denies auditory/visual disturbances, patient verbalizes ability to keep self safe from self harm, patient appetite is good, sleep pattern reportedly good. Patient has been out of room, socially appropriate, attends groups, pleasant on the phone with mother, patient denies physical pain. 1711: Patient seated in the lounge upon approach, filling out menu selections for tomorrow's meals, administered Norvelt dose per orders, patient tolerated well, oral [...] request. Denies further needs and ambulates to [facility]. 2005: [facility]. When asked how pt feeling, pt replies I feel slow. It's weird, like I'm moving in slow motion. Pt reports thoughts also feel slowed down. Pt states I think it's because of the meds. Pt reports Invega was increased and Norvelt added to medications. Pt also reports feeling [...] not attend. Psychiatry Progress Note Patient Name: Martita Hernandez Admit Date: 1190104 MR #: [id number] : 2000 Perpetual Assessment Martita Hernandez is a 22 y.o. female presenting with gradually worsening symptoms of psychosis and bipolar mood swings. She is currently dealing with dangerous levels of suicidal ideation. She needs hospitalization despite a very tight network of support as an outpatient Diagnosis & Plan/Recommendations PRINCIPAL DIAGNOSIS: Schizoaffective disorder, bipolar type (HCC) * Schizoaffective disorder, bipolar type (HCC) Assessment & Plan A: Martita has suffered a progressive increase in symptoms [...] was awake and alert and recognized note teletypewriter installer from prior hospitalizations. Patient has been exposed [...] but is willing to receive treatment with Norvelt and Paliperidone. Review of Systems: Constitutional:No fever, [...] given at this time. 1019: Pt in lounge watching tv. Pt reports previous PRN medication helped some. Pt given PRN atarax PO at this time. 1119: Pt reports PRN medication was effective. 1143: Pt eating lunch in lounge. Calm and controlled. Pt received scheduled medication and took without difficulty. No medication noted upon oral cavity inspection. 1400: Pt resting in bed with eyes closed. Respirations even and unlabored. 1636: Pt eating dinner in lounge. Calm and controlled. Pt received scheduled medication and took without difficulty. No medication noted upon oral cavity inspection. 1830: Pt resting in bed with eyes closed. Respirations even and unlabored. PT out in TV lounge, dressed appropriately in street clothes, when approached to attend group. PT pleasant with interaction, quiet and reserved, but declined to attend group citing no, I am good this morning. PT encouraged to attend but consistent with decision. 1930 Assumed care of patient until 0730 AM. Patient is sitting in lounge, Watching TV. Patient is quiet. Denies urge to harm self. Denies hallucinations. Patient complains of tiredness. 2003 Medicated with antibiotic as requested. Patient is resting quietly in bed with even respirations. 2100 Patient is resting quietly in bed. 0200 Patient is changing positions in bed at times. 0400 Patient is resting quietly in bed. 0600 Patient has rested quietly in bed approximately 10 hours to present. Will continue to observe patient this shift. This worker attempted to call the patient's spouse. No answer. [phone] Recreation Therapy: Pt participated in learning/playing the card game called [employer] which she was unfamiliar with. Pt grasped [...] depression a 6 and her anxiety a 5. States she slept well last night. States [...] she still has itching and a bad smell. Informed patient that Tiny Shi MAJOR ASSEMBLY INSPECTOR would be told about her UTI and [...] has helped a little to decrease my anxiety. 19:53 - Patient to unit from ED. Dressed in [facility] gown. Alert and oriented x4. Calm [...] headache rated a 7/10 in her left [facility] region. This nurse leaves lights off for [...] Vitals obtained. Contraband search performed by this teletypewriter installer and Mitzi Ware RN, no contraband found. Pt denies need for orientation to unit. documented in this encounter [facility] 12-24-2022 Hospital course Narrative Inpatient Psychiatry Discharge Summary Patient Name: Martita Hernandez MR #: [id number] : 2000 Admit Date: 1190104 Discharge Date/Time: No discharge date for patient encounter. Clinical Summary Reason for Hospitalization: Suicidal ideation, auditory hallucinations, paranoid thinking, racing thoughts Discharge Diagnoses and Associated Hospital Course: * Schizoaffective disorder, bipolar type ([facility]) Assessment & Plan A: Martita has suffered a progressive increase in symptoms [...] with medications on an outpatient basis. 12/24/2022: Martita states that she is feeling much better. [...] placed Procedures ED Consult to PSYCH - Refrigerating Technician (PSS) Hospitalize Patient To : Inpatient consult [...] Your Medications These medications were sent to [facility] [address] [place] [address] Hours: 8:30 AM to 5:00 PM Mon-Sat clindamycin 300 MG capsule lithium 300 MG capsule paliperidone 6 MG 24 hr tablet This patient is being discharged on one antipsychotic. Diagnostic work up including: BMI, blood pressure, hemoglobin A1c or blood glucose, and lipid panel have been completed in the past year performed within [facility] and available in EPIC. Glucose <126mg/dL, no indication of impaired glucose tolerance or insulin resistance in fasting or nonfasting state. Tobacco cessation medication not indicated; Patient is only a someday tobacco user or doesn't use currently. Disposition: Home Follow Up: Belgica Strange MD [facility] Kaylah Wick [address] [address] Follow up Appt: 01/09/2023 at 3:[address] Strange Discharge Diet: Additional Information: Provider(s): Primary Care: Physician No Phone: None Address: [facility] To contact Belgica Strange MD or extractions technician physician, call [phone] ([place]) for 24 hour/7 day for emergencies related to inpatient stay or to obtain results of studies pending at discharge. Patient instructions, including activity, were given to the patient/family at discharge. Please see the After Visit Summary in the medical record for details. Time spent on discharge: > 30 minutes Completed by: Belgica Strange on 12/24/22, 12:56 PM documented in this encounter [facility] 12-24-2022 Note Formatting of this n [...] by Clemencia Santizo RN Outcome: Partially Met [facility] 12-24-2022 Miscellaneous Notes Problem: Suicide - Risk [...] discharge plan and instructions 12/24/2022 1230 by Cleemncia Santizo RN Outcome: Completed 12/24/2022 0729 by [...] Date: 12/21/2022 Time: 2:00 PM Patient Name: Martita Hernandez Date of : 2000 Sex: Female Admit Date/Time: 12/20/2022 1:26 PM Patient Active Problem List Diagnosis Date Noted Schizoaffective disorder, bipolar type ([facility]) 12/20/2022 Schizoaffective disorder ([facility]) 12/20/2022 Post traumatic stress disorder (PTSD) 02/16/2022 Bipolar II disorder major depressive with onset (HCC) 02/15/2022 Diagnosis [place] I: Schizoaffective Disorder [place] II: No diagnosis [place] III: Patient Active Problem List Diagnosis Date Noted Schizoaffective disorder, bipolar type ([facility]) 12/20/2022 Schizoaffective disorder (HCC) 12/20/2022 Post traumatic stress disorder (PTSD) 02/16/2022 Bipolar II disorder major depressive with onset ([facility]) 02/15/2022 [place] IV: other psychosocial or environmental problems [place] V: 41-50 serious symptoms Reason for Hospitalization [...] Discharge Needs Anticipated Facility Type: Psychiatric aftercare, [facility] mental [facility] Criteria For Discharge Criteria For Discharge: Maximum benefit obtained, Goals met Additional Comments: Physician, Registered Nurse, Spray Pilot, Adjunct Therapist included in treatment team discussion. Treatment team members present eBlgica Strange MD Patient Signature Date Patient's Response To Treatment Plan: Physician Signature Date Associated Problem(s): Schizoaffective disorder, bipolar type (HCC) A: Martita has suffered a progressive increase in symptoms [...] with medications on an outpatient basis. 12/24/2022: Martita states that she is feeling much better. [...] TV and unwind. 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 [...] have any right now. With prompting admits tobeing a good . Barriers/Limitations: None identified. Pt [...] with the documentation as recorded by the CED (Advanced Practice Provider), including the assessment, treatment plan, and disposition Behavioral Health Pre Admission Screening Tool Date: 12/20/2022 Time: 5:35 PM Patient Name: Martita Hernandez Date of : 2000 Sex: Female VOLUNTARY Prescreener Caller Information: Melida VERDIN Referral Source: [facility] Diagnosis: Schizoaffective Disorder Presenting Problem/Chief Complaint: Suicidal/Hallucinations Medical Status: Stable Functional Status: Independent Medication Compliant: Yes Insurance Information/Precertification Completed: Yes Case Reveiwed With: Other Other Physician: Dr. Strange Accepted for Admission: Yes Admitting Physician: Other Other Admitting Physician: Dr. Strange Number For RN To RN Communication: [phone] Risk Factors Recent Psychological Experiences: Other (Comment) [...] denies homicidal ideations. documented in this encounter [facility] 12-24-2022 Note Formatting of this n [...] of comfort function goal Outcome: Partially Met [facility] 12-23-2022 Note Formatting of this n ote [...] Achievement of comfort function goal Outcome: Met [facility] 12-23-2022 Note Formatting of this n ote [...] discharge plan and instructions Outcome: Not Addressed [facility] 12-23-2022 Note Formatting of this n ote [...] of comfort function goal Outcome: Partially Met [facility] 12-22-2022 Note Formatting of this n ote [...] discharge plan and instructions Outcome: Not Addressed [facility] 12-21-2022 Note Formatting of this n [...] of comfort function goal Outcome: Partially Met [facility] 12-21-2022 Note Formatting of this n ote is different from the original. Behavioral Health Initial Treatment Plan Date: 12/21/2022 Time: 2:00 PM Patient Name: Martita Hernandez Date of : 2000 Sex: Female Admit Date/Time: 12/20/2022 1:26 PM Patient Active Problem List Diagnosis Date Noted Schizoaffective disorder, bipolar type ([facility]) 12/20/2022 Schizoaffective disorder ([facility]) 12/20/2022 Post traumatic stress disorder (PTSD) 02/16/2022 Bipolar II disorder major depressive with onset ([facility]) 02/15/2022 Diagnosis [place] I: Schizoaffective Disorder [place] II: No diagnosis [place] III: Patient Active Problem List Diagnosis Date Noted Schizoaffective disorder, bipolar type ([facility]) 12/20/2022 Schizoaffective disorder (HCC) 12/20/2022 Post traumatic stress disorder (PTSD) 02/16/2022 Bipolar II disorder major depressive with onset ([facility]) 02/15/2022 [place] IV: other psychosocial or environmental problems [place] V: 41-50 serious symptoms Reason for Hospitalization [...] Discharge Needs Anticipated Facility Type: Psychiatric aftercare, [facility] mental health Criteria For Discharge Criteria For Discharge: Maximum benefit obtained, Goals met Additional Comments: Physician, Registered Nurse, Spray Pilot, Adjunct Therapist included in treatment team discussion. Treatment team members present Belgica Strange MD Patient Signature Date Patient's Response To Treatment Plan: Physician Signature Date [facility] 12-21-2022 History and physical note Psychiatry History and Physical Patient Name: Martita Hernandez MR #: [id number] : 2000 Admit Date: [id number]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 pleasant and cooperative throughout the entirety of this interaction. Case discussed with Dr. Strange and Amena Shi RN. No other immediate discharge needs identified at this time. SENIOR APPLICATIONS DEVELOPER will continue to follow patient and assist with discharge process. Treatment plan will be reviewed with patient when it becomes available. [id number] Goal Group: Pt out in TV lounge [...] were measurable and related well to goal. 3752-8706 Life Skills: PT presented with focus of [...] and information learned. 0731 Pt sitting in lounge Pt advises she didn't sleep very well when asked. Vitals obtained, pt denies pain at this time. Mask offered for covid precautions, education provided, pt declines. Denies needs. 0802 Pt at nurses' station. Pt casually dressed. Eye contact good. Pt calm, friendly with interaction. Affect flat, depressed mood. Pt denies anxiety. Pt rates current depression a 3/10. Pt denies suicidal and homicidal ideations. Pt denies auditory and visual hallucinations. Pt compliant taking scheduled medications, mouth check completed. Pt proceeds back to [facility] to sit and watch television with female peer. Denies needs. 0935 Pt sitting in lounge watching television. Pt calm, social with peers. 0940 Pt attending group 1110 Pt sitting quietly in lounge watching television. Pt calm, appropriate. 1158 Dr. Strange making rounds, meeting with pt 1302 Pt at nurses' station. Pt requesting prn Hydroxyzine po for anxiety she rates 05/11. Pt states I have a little anxiety about going home. I don't know why. Pt advises she feels good about going home when asked, stating I want to go home, I'm ready. 1350 Reviewed discharge instructions with pt 1405 [...] this shift. Psychiatry Progress Note Patient Name: Martita Hernandez Admit Date: 3250103 MR #: [id number] : 2000 Perpetual Assessment Martita Hernandez is a 22 y.o. female was [...] with onset (HCC) Assessment & Plan A: Martita Hastings, as she prefers to be called, was [...] answered. Fredi Munoz MD 02/25/2022 4:32 PM 1531- Client at nurse's station asking for coffee. [...] at this time. Client left heading to [facility]. Will continue to monitor for safety. 1930- Client asked for popcorn, made popcorn for client. 2129- Client resting comfortably with adequate linen. Respirations deep, even, unlabored. Recreational Therapy: Pt attended group learning new group activity of [employer]; requiring creative thinking and encouraging group bonding [...] peers. 10:46- Pt. Complains of an upset stomach. Pt. Given Maalox at this time for [...] to observe patient this shift. 1900 - 1930 Exercise Group - Pt lying in bed when approached about attending group, Pt brought self to group willingly. Pt participated in group walking on the treadmill and playing ping pong with staff and peer. Pt interacted well with others. Pt was friendly, pleasant, and appropriate during group. Pt was receptive with the activities. Psychiatry Progress Note Patient Name: Martita Hernandez Admit Date: 3250103 MR #: [id number] : 2000 Perpetual Assessment Martita Hernandez is a 22 y.o. female was [...] with onset (HCC) Assessment & Plan A: Martita Hastings, as she prefers to be called, was [...] given phone and left heading to room. 2218- Client at nurse's station asking for atarax, [...] engaging in learning new leisure outlet of [employer], encouraging brainstorming, quick thinking, communication skills, laughter [...] safety. 08:17- Pt. Is eating breakfast in lounge area at this time. Pt. Is dressed [...] room 3316/02. 2125 Pt on phone in [facility]. 2156 Pt spending time in lounge. Pt denies any current needs/complaints. 2250 Pt resting in bed awake, resps easy. 1525: Pt arrived on unit [facility]33[facility], see admission note from Sandy GARCES at 1537. 1555: Messaged [employer] to order vitamin and albuterol inhaler. Why were they admitted? Voices telling pt to harm herself and her baby. From: [place] ED Admitting physician and diagnosis: Dr. Strange, [...] per protocol free of ties and strings. 1641: Called Dr. Strange to receive admission orders and order for benadryl for sleep. 182: Pt given 600 mg ibuprofen for 6/10 [...] found. Pt cooperative. documented in this encounter [facility] 02-26-2022 Note Formatting of this n [...] need for follow-up care Outcome: Not Addressed [facility] 02-25-2022 Note Formatting of this n [...] intake to meet estimated needs Outcome: Completed [facility] 02-25-2022 Note Formatting of this n [...] need for follow-up care Outcome: Partially Met [facility] 02-24-2022 Note Formatting of this n [...] need for follow-up care Outcome: Partially Met [facility] 02-24-2022 Initial evaluation note BEHAVIORAL HEALTH EVALUATION REASON FOR ADMISSION: I just go out, I needed a med change, my meds were giving me bad side effects. Pt shared she was having thoughts of harming herself and he son. STRESSORS: new baby, finances, my mental [...] skills, and planning for life after discharge. [facility] 02-24-2022 Consult note Associated Order (s): IP CONSULT TO HOSPITALIST [facility] CONSULTATION NOTE Patient Name: Martita Hernandez : 2000 MR #: [id number] Admit Date: 3250103 Physicians: No primary care provider on file. (Family); No ref. provider found (Referring) Martita Hernandez is a 22 y.o. female patient of No primary care provider on file. with history of bipolar II presented with suicidal ideation and homicidal ideation towards her babyand was admitted to the Behavioral Health unit. [facility] consulted by Belgica Strange MD for medical management. Medical clearance and cranial nerve evaluation completed. Suicidal ideation Depression Management by attending physician Belgica Strange MD Post anemia vitamins with iron 3 weeks post Medication Reconciliation: Verified Code Status: Full Code Quality Measures DVT Prophylaxis: ambulatory Guerrero Catheter: none Disposition Discharge Location: home Estimated Discharge Date: tbd Outpatient Testing: none Chief Complaint [facility] consulted by Belgica Strange MD for medical management History of Present Illness Martita Hernandez is a 22 y.o. female patient of No primary care provider on file. with history of bipolar II presented with suicidal ideation and homicidal ideation towards her babyand was admitted to the Behavioral Health unit. [facility] consulted by Belgica Strange MD for medical management. Medical clearance and cranial nerve evaluation completed Martita presented to the ED with depression, suicidal [...] EDT Patient seen, evaluated and managed by ARMAMENT MECHANIC independently. I was not involved in the care of this patient, but was readily available for consultation if needed by ARMAMENT MECHANIC. [facility] Work Phone: 02-24-2022 Consult note Associated Order (s): IP CONSULT TO HOSPITALIST [facility] CONSULTATION NOTE Patient Name: Martita Hernandez : 2000 MR #: [id number] Admit Date: 3250103 Physicians: No primary care provider on file. (Family); No ref. provider found (Referring) Martita Hernandez is a 22 y.o. female patient of No primary care provider on file. with history of bipolar II presented with suicidal ideation and homicidal ideation towards her babyand was admitted to the Behavioral Health unit. [facility] consulted by Belgica Strange MD for medical management. Medical clearance and cranial nerve evaluation completed. Suicidal ideation Depression Management by attending physician Belgica Strange MD Post gómez anemia vitamins with iron 3 weeks post Medication Reconciliation: Verified Code Status: Full Code Quality Measures DVT Prophylaxis: ambulatory Guerrero Catheter: none Disposition Discharge Location: home Estimated Discharge Date: tbd Outpatient Testing: none Chief Complaint [facility] consulted by Belgica Strange MD for medical management History of Present Illness Martita Hernandez is a 22 y.o. female patient of No primary care provider on file. with history of bipolar II presented with suicidal ideation and homicidal ideation towards her babyand was admitted to the Behavioral Health unit. [facility] consulted by Belgica Strange MD for medical management. Medical clearance and cranial nerve evaluation completed Martita presented to the ED with depression, suicidal [...] EDT Patient seen, evaluated and managed by ARMAMENT MECHANIC independently. I was not involved in the care of this patient, but was readily available for consultation if needed by ARMAMENT MECHANIC. Associated Order(s): IP CONSULT TO DIETITIAN Nutrition [...] to follow as needed., while in-house. Office [phone] documented in this encounter [facility] 02-24-2022 Note Formatting of this n [...] need for follow-up care Outcome: Partially Met [facility] 02-24-2022 Consult note Associated Order (s): [...] to follow as needed., while in-house. Office [phone] [facility] 02-23-2022 Note Formatting of this n ote is different from the original. Behavioral Health Initial Treatment Plan Date: 02/23/2022 Time: 6:44 PM Patient Name: Martita Hernandez Date of : 2000 Sex: Female Admit Date/Time: 02/23/2022 3:26 PM Patient Active Problem List Diagnosis Date Noted Post traumatic stress disorder (PTSD) 02/16/2022 Bipolar II disorder major depressive with onset (HCC) 02/15/2022 Diagnosis [place] I: Bipolar II and PTSD [place] II: No diagnosis [place] III: Patient Active Problem List Diagnosis Date Noted Post traumatic stress disorder (PTSD) 02/16/2022 Bipolar II disorder major depressive with onset (HCC) 02/15/2022 [place] IV: other psychosocial or environmental problems [place] V: 41-50 serious symptoms Reason for Hospitalization [...] Goals met Additional Comments: Physician, Registered Nurse, Spray Pilot, Adjunct Therapist included in treatment team discussion. Treatment team members present Belgica Strange MD Patient Signature Date Patient's Response To Treatment Plan: Physician Signature Date [facility] 02-23-2022 History and physical note Psychiatry History and Physical Patient Name: Martita Hernandez MR #: [id number] : 2000 Admit Date: 950451 Primary Care Provider: No primary care provider on file. Assessment Martita Hernandez is a 22 y.o. female presenting with suicidal thinking in response to thoughts about harming her baby in the context of mood instability Diagnosis & Plan/Recommendations PRINCIPAL DIAGNOSIS: Bipolar II disorder major depressive with onset (HCC) [place] I: Bipolar II [place] II: Deferred [place] III: see problem list. 3 weeks post [place] IV: Other psychosocial and environmental problems [place] V: 41-50: Serious symptoms OR any serious impairment in social, occupational, or school functioning * Bipolar II disorder major depressive with onset (HCC) Assessment & Plan A: Martita Hastings, as she prefers to be called, was [...] me to . History of Present Illness: Martita Hernandez is a 22 y.o. female with [...] She also resumed her IOP treatment in [place], where she lives. She continued to feel well until she developed more trouble sleeping. Then she suddenly had strong thoughts/ voices about harming her baby and killing herself.After sleeping in [facility] ED over night, she feels fine again today except for the guilt and anxiety about her mental illness. She has never had psychotic symptoms prior to that one event. No substance abuse. 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 Belgica Strange MD 02/23/2022 6:27 PM [facility] 02-23-2022 History and physical note Psychiatry History and Physical Patient Name: Martita Hernandez MR #: [id number] : 2000 Admit Date: 3250103 Primary Care Provider: No primary care provider on file. Assessment Martita Hernandez is a 22 y.o. female presenting with suicidal thinking in response to thoughts about harming her baby in the context of mood instability Diagnosis & Plan/Recommendations PRINCIPAL DIAGNOSIS: Bipolar II disorder major depressive with onset (HCC) [place] I: Bipolar II [place] II: Deferred [place] III: see problem list. 3 weeks post [place] IV: Other psychosocial and environmental problems [place] V: 41-50: Serious symptoms OR any serious impairment in social, occupational, or school functioning * Bipolar II disorder major depressive with onset (HCC) Assessment & Plan A: Martita Hastings, as she prefers to be called, was [...] me to . History of Present Illness: Martita Hernandez is a 22 y.o. female with [...] She also resumed her IOP treatment in [place], where she lives. She continued to feel well until she developed more trouble sleeping. Then she suddenly had strong thoughts/ voices about harming her baby and killing herself.After sleeping in [facility] ED over night, she feels fine again today except for the guilt and anxiety about her mental illness. She has never had psychotic symptoms prior to that one event. No substance abuse. 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 Plan: Discharge to outpatient follow-up [facility] 02-23-2022 Note Formatting of this n [...] Able to perform ADL Outcome: Partially Met [facility] 01-30-2022 Evaluation + Plan note Extrac marina from: Title:Clinical Document Author:JUNG SHAH MD Date:01/30/22 Subjective Comfortable with oral Motrin & Tylenol. Ambulant, voiding. good pain control Lochia small. Baby is nursing well. Wants to shower. Objective Looks very well. Independent in room. Moving easily. CVS: RRR Lungs: CTA B Abdomen: Soft, uterus firm at U. Dressing clean and dry Extremities: Nontender with 1+ edema VITALS FyrmsnVkcjDTEelrtPKXmZ5ATB8RpyqUt(kg) 01/30 08:2736.8124/[id number]/28 80.0 01/30 06:00--125/[id number] 01/30 04:1237.1117/78257236OM 01/30 02:0736.8117/97828100QT 01/30 00:3136.8132/27561593WZ 24 Hr Tmax: 37.1 at 01/30 04:12 [...] 01/29/22 9:35:00 EST, Dose = 1 spray(s), Ventress, Perineum, q1h, PRN, Other (see order comments) [...] Start: 01/29/22 9:35:00 EST, Dose = 1 ced, Pad, Topical, AsDirected, PRN, Hemorrhoids hydrocortisone topical (Anusol-HC 25 mg rectal suppository) Start: 01/29/22 9:35:00 EST, Dose = 25 mg, = 1 supp, Rectal, BID, PRN, hemorrhoidal discomfort hydrocortisone-pramoxine topical (Analpram-HC 2.5%-1% rectal cream) Start: 01/29/22 9:35:00 EST, Dose = 1 ced, Cream, Perineum, q1h, PRN, hemorrhoidal or perineal [...] Problems (18) ADD - Attention deficit disorder (503420970) Anxiety (20669214) Asthma (599352560) Chest tightness (301386223) Decreased vitamin D (777737316) Depression (272024680) Diabetes mellitus type 2 (769386838) Dizziness (8506326523) H/O: migraine (038997353) Hyperemesis gravidarum (36419223) Insomnia (593783725) Left ear impacted cerumen (70305447) Migraines (65281537) Nausea (0267748641) (694358516) S/P section (100403253) Sinus arrhythmia (838576311) Traumatic brain injury (742314) ASSESSMENT/PLAN: POD #1 after primary elective for clinically inadequate pelvis Intractable Nausea antepartum- resolved Anemia - antepartum and post-op. well adjusted. CT support. May go home this pm if desired. Extracted from: Title:Clinical Document Author:SUMMER ROSA MD Date:01/29/22 [facility] ADMISSION HISTORY AN D PHYSICIAL CHIEF COMPLAINT: 1 para 0 with uncomplicated 39-week but with clinically unfavorable pelvis. Patient elects for primary section versus trial of labor. HISTORY OF PRESENT ILLNESS: Uncomplicated REVIEW OF SYSTEMS: No significant positives ACTIVE PROBLEMS: (18) ADD - Attention deficit disorder (391755180) Anxiety (63907212) Asthma (023119525) Chest tightness (175900022) Decreased vitamin D (030240890) Depression (940248677) Diabetes mellitus type 2 (085523754) Dizziness (6147296999) H/O: migraine (902820170) Hyperemesis gravidarum (27773024) Insomnia (185246849) Left ear impacted cerumen (80836341) Migraines (49854428) Nausea (3042685822) (292548985) S/P section (418147609) Sinus arrhythmia (187809619) Traumatic brain injury (051020) MEDICATIONS: Active Inpt Meds: .PharmacyCommunication (Pharmacy See [...] 01/29/22 9:35:00 EST, Dose = 1 spray(s), Ventress, Perineum, q1h, PRN, Other (see order comments) [...] Start: 01/29/22 9:35:00 EST, Dose = 1 ced, Pad, Topical, AsDirected, PRN, Hemorrhoids hydrocortisone topical (Anusol-HC 25 mg rectal suppository) Start: 01/29/22 9:35:00 EST, Dose = 25 mg, = 1 supp, Rectal, BID, PRN, hemorrhoidal discomfort hydrocortisone-pramoxine topical (Analpram-HC 2.5%-1% rectal cream) Start: 01/29/22 9:35:00 EST, Dose = 1 ced, Cream, Perineum, q1h, PRN, hemorrhoidal or perineal [...] and supportive home environment PHYSICAL EXAM: VITALS: IjzzcuHoetXQKgbeyHDGjF6OGD1LlhkBg(kg) 01/29 10:51--132/[id number]--34/28 80.0 01/29 10:40--132/[id number]-- 01/29 10:2536.7139/72659458-- 01/29 10:11--143/[id number]-- 01/29 10:10--126/[id number]-- 24 Hr Tmax: 36.7 at 01/29 10:25 [...] RBC3.75L Hgb10.4L Hct30.4L MCV81.1 MCH27.6 MCHC34.0 RDW14.8H Zkbuoxmb643 MPV9.6 Neutrophil %80.1H DIAGNOSTICS: Category 1 heart rate tracing IMPRESSION: 1 para 0 at 39 weeks estimated gestational age with unfavorable pelvis for scheduled low transverse section. PLAN: Primary section. Future Appointments Appointment Date:02/05/2022 11:00:00 AM Scheduled Provider:SUMMER ROSA MD Location:[facility] Appointment Type: OV Post Op Future Scheduled Tests Laboratory* Panel (AO) 07/21/21 Radiology* US OB < 14 weeks 06/07/21 [facility] 02-28-2022 Hospital Discharge instructions Patient Education 01/29/2022 09:40:49 7b- Depression and Blues (09/2020)(CUSTOM) [place] Depression and Blues All mothers are at [...] psychosis. Often, a screening tool called the Reform Depression Scale is used to diagnose depression [...] music. Avoid alcohol. Ask for help with leaf coverer, cooking, grocery shopping, or running errands as needed. Do nottry to do everything. Talk to people close to you about how you are feeling. Get support from your partner, family members, and friends. Try to stay positive in how you think. Think about the things you are grateful for. Do not spend a lot of time alone. Only take umcc-xsq-wdiioim or prescription medicine as directed by your [...] not doing well or get worse. Resource: ExitCare Patient Information 2015 [facility], [facility]. This information is not intended to [...] Follow these instructions at home: Medicines Take kiql-poh-kzomlnc and prescription medicines only as told by [...] 03/15/2006 Document Revised: 08/07/2019 Document Reviewed: 11/19/2017 [facility] Patient Education 2020 [employer]. 01/29/2022 09:40:25 Delivery, Care After Delivery, Care [...] and water are not available, use hand multi operation machine operator. ?If you have a dressing, change it [...] this until your incision heals. Medicines Take smll-pxb-pipmhlj and prescription medicines only as told by [...] 08/10/2003 Document Revised: 05/27/2019 Document Reviewed: 05/27/2019 [facility] Patient Education 2020 [employer]. Follow Up Care 01/15/2022 08:51:03 With:SHELLEY MACIAS, SUMMER Ulloa Address: [address] [place] [address] [facility] [place] [address]- [phone] When: Unknown Comments:Ensure followup appointment one week after delivery [facility] 02-09-2022 Hospital Discharge instructions Patient Education 01/10/2022 16:10:53 [place] [facility] Outpatient Instructions (AORN) [facility] OUTPATIENT HOME-GOING INSTRUCTIONS _X_ [...] crackers, bananas, Jell-O, cooked carrots, applesauce. ___ [place] diet. Avoid caffeine, chocolate, alcohol, spiced/greasy foods. [...] the nearest Emergency Room for assistance. Form [id number] D: 12/09 Follow Up Care 01/10/2022 13:50:32 With:GISELE RAUSCH Address:Unknown When:3-[address] [facility] 02-06-2022 Hospital Discharge instructions Patient Education 01/07/2022 15:55:12 [place] [facility] Outpatient Instructions (AORN) [facility] OUTPATIENT HOME-GOING INSTRUCTIONS _X_ [...] crackers, bananas, Jell-O, cooked carrots, applesauce. ___ [place] diet. Avoid caffeine, chocolate, alcohol, spiced/greasy foods. [...] the nearest Emergency Room for assistance. Form [id number] D: 11/09 Follow Up Care 01/07/2022 11:54:24 With:SHELLEY MACIAS, SUMMER Ulloa Address: [phone] When:01/09/2022 16:15:00 [facility] 01-12-2022 Hospital Discharge instructions Patient Education 12/13/2021 16:58:21 7 - Labor and Delivery Outpatient Instructions(CUSTOM) [facility] OUTPATIENT HOME-GOING INSTRUCTIONS _X_ You are to follow up with your physician as scheduled ACTIVITY ___ Bedrest _X__Activity as tolerated ___ No work/school for ___ days. ___Other PRESCRIPTION GIVEN _X__Yes __[facility] to [facility] NAUSEA/VOMITING ___ Take small, frequent amounts of clear liquids. Avoid fruit juices and milk. ___ Increase fluid intake to a minimum of 8 ounces of fluid every hour while awake. ___ Soft diet. Rice, crackers, bananas, Jell-O, cooked carrots, applesauce. ___ [place] diet. Avoid caffeine, chocolate, alcohol, spiced/greasy foods. [...] the nearest Emergency Room for assistance. Form [id number] D: 11/09 Document Released: 11/18/2006 Document Revised: 11/06/2012 Document Reviewed: 11/18/2006 [facility] Patient Information 2012 [employer]. Follow Up Care 12/13/2021 15:25:06 With:SUMMER ROSA Address: [address] [facility] [place] [address]- [phone] Business (1) When: Unknown Comments:Follow-up as scheduled [facility] 11-12-2021 Hospital Discharge instructions Patient Education 10/13/2021 17:05:12 7 - Labor and Delivery Outpatient Instructions (CUSTOM) [facility] HOME-GOING INSTRUCTIONS _X_ [...] crackers, bananas, Jell-O, cooked carrots, applesauce. ___ [place] diet. Avoid caffeine, chocolate, alcohol, spiced/greasy foods. [...] the nearest Emergency Room for assistance. Form [id number] D: 11/09 Document Released: 11/18/2006 Document Revised: 11/06/2012 Document Reviewed: 11/18/2006 [facility] Patient Information 2012 [employer]. Follow Up Care 10/13/2021 16:36:25 With:JUNG SHAH MD Address: [phone] When: Unknown Comments:Follow-up as scheduled [facility] 10-20-2021 Evaluation + Plan noteExtracted from: Title:Clinical Document Author:JUNG SHAH MD Date:09/20/21 Subjective Patient in shower. Per nursing, patient has not had one emesis since admission. Objective see vital s VITALS AjwjcqRuqgQIHatonGTNvC0ZWV4AojkFb(kg) 09/20 07:4436.8107/404673--IC97/42199.0 09/20 00:1236.7108/587712--FA 09/19 16:1036.8116/527006--MX 09/19 09:48--119/786675--[place] 09/19 09:4736.7--------RA 24 Hr Tmax: 36.8 at [...] Problems (15) ADD - Attention deficit disorder (256199391) Anxiety (62011464) Asthma (781330996) Chest tightness (270298032) Decreased vitamin D (216755778) Depression (597209534) Dizziness (1789499152) H/O: migraine (238152617) Insomnia (209494141) Left ear impacted cerumen (23413040) Migraines (60904265) Nausea (8528393802) (930417150) Sinus arrhythmia (532006740) Traumatic brain injury (691722) ASSESSMENT/PLAN: Home on scheduled [place] , Dawna and FU within a week. Extracted from: Title:Clinical Document Author:RICHARD VARGAS RN-CNM Date:09/19/21 [facility] ADMISSION HISTORY A [place] PHYSICIAL CHIEF COMPLAINT: [...] PROBLEMS: (15) ADD - Attention deficit disorder (434814805) Anxiety (27721219) Asthma (207273465) Chest tightness (652413299) Decreased vitamin D (458568434) Depression (436712858) Dizziness (2504844739) H/O: migraine (737770264) Insomnia (123617010) Left ear impacted cerumen (81050676) Migraines (62793873) Nausea (6875205643) (420947684) Sinus arrhythmia (935037766) Traumatic brain injury (506405) MEDICATIONS: Active Inpt Meds: cefTRIAXone (Rocephin) Start: [...] 125 mL/hr ALLERGIES: (1) penicillin 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 SOCIAL HISTORY: single, denies Tobacco, ETOH PHYSICAL EXAM: VITALS: HnkbwbFugmELRxlgxXUTjT3UVD5InoqLy(kg) 09/19 16:1036.8116/271616----66/40562.0 09/19 09:48--119/882064---- 09/19 09:4736.7 24 Hr Tmax: 36.8 at [...] Ratio1.0L Creatinine Lvl (s)0.57 Bili Direct<0.1 Globulin3.4 ALT/KYXD72F Vkhgbyim741 Bili Total0.2 BUN/Creatinine Ratio12 GFR Aumnlotc332 A/G Ratio1.0L Total Protein6.6 PC389S Bili IndirectSee Flowsheet Alk Phos98 Calcium Lvl9.0 GFR Non- Tgjzwaky608 Bili Total0.2 Glucose Level79 Albumin Level3.3L Electrolyte Ygzsqdh87.0 AST/SGOT28 Total Protein6.7 Alk Phos97 Sodium Qpfqf643 Globulin3.3 BUN7 ALT/ECYV87H Albumin Level3.3L AST/SGOT28 MCV86.3 MPV9.1 Monocyte %5.6 Eosinophil, Absolute0.10 WBC10.60 MCH29.0 Eosinophil %1.3 Basophil, Absolute0.00 RBC3.87L MCHC33.6 Basophil %0.4 Hgb11.2L RDW13.1 Neutrophil %80.6H Lymphocyte, Absolute1.30 Neutrophil, Absolute8.50H Hct33.4L Lymphocyte %12.1 Mneoyzyx992 Monocyte, Absolute0.60 UA BloodSee Flowsheet UA Leuk [...] Radiology* US OB < 14 weeks 06/07/21 [facility] 10-20-2021 Hospital Discharge instructions Patient Education 09/20/2021 [...] sour. Examples include lemonade, kathleen allyssa, lemon [place] soda, ice water, and sparkling water. ?[place] your teeth or use a mouth rinse after meals. ?Talk with your health care provider about starting a supplement of vitamin B6. General instructions Take bunj-ijq-xdnhcnx and prescription medicines only as told by [...] 11/18/2006 Document Revised: 12/08/2018 Document Reviewed: 07/17/2017 [facility] Patient Education 2020 [employer]. 09/20/2021 09:07:59 [facility] Outpatient Instructions (AORN) [facility] OUTPATIENT HOME-GOING INSTRUCTIONS _X_ [...] crackers, bananas, Jell-O, cooked carrots, applesauce. _X__ [place] diet. Avoid caffeine, chocolate, alcohol, spiced/greasy foods. [...] the nearest Emergency Room for assistance. Form [id number] D: 11/09 Follow Up Care 09/19/2021 09:42:13 With:JUNG SHAH MD Address: [phone] When:09/27/2021 [facility] 08-20-2021 Evaluation + Plan note Future Scheduled Tests Laboratory* Panel (AO) 07/21/21 Radiology* US OB < 14 weeks 06/07/21 [facility] 01-18-2015 History of Past illness Narrative* Problem Noted Date Resolved Date Suicidal risk 12/19/2014 02/18/2017 Vesicoureteral reflux, unspe cified or without reflux nephropathy 09/04/2006 05/10/2012 Urinary frequency 08/20/2006 05/10/2012 Open fracture of phalanx or phalanges of hand, u nspecified 05/25/2003 05/10/2012 Other congenital deformity of hip (joint) 200105/10/2012 documented as of this encounter (statuses as of 03/06/2023) [facility]2015 History of Past illness Narrative* Problem Noted Date Diagnosed Date Resolved Date Suicidal risk 12/19/2014 02/18/2017 Vesicoureteral reflux, unspe cified or without reflux nephropathy 09/04/2006 05/10/2012 Urinary frequency 08/20/2006 05/10/2012 Open fracture of phalanx or phalanges of hand, unspecified 05/25/2003 05/10/2012 Other congenital deformity of hip (joint) 11/20/2002 05/10/2012 documented as of this encounter (statuses as of 07/20/2023) [facility]ments Appointment Date:09/19/2021 09:00:00 AM Scheduled Provider:RICHARD VARGAS Location:[facility] Appointment Type: OV OB Routine Follow Up Future Scheduled Tests Laboratory* Panel (AO) 07/21/21 Radiology* US OB < 14 weeks 06/07/21 [facility] Evaluation + Plan note Future Appointments Appointment Date:10/17/2021 10:30:00 AM Scheduled Provider:JUNG SHAH MD Location:[facility] Appointment Type:[facility] OB Routine Follow Up Future Scheduled Tests Laboratory* Panel (AO) 07/21/21 Radiology* US OB < 14 weeks 06/07/21 [facility] Evaluation + Plan note Future Appointments Appointment Date:10/31/2021 10:00:00 AM Scheduled Provider:RICHARD VARGAS Location:[facility] Appointment Type:[facility] Future Scheduled Tests Laboratory* Panel (AO) 07/21/21 Radiology* US OB < 14 weeks 06/07/21 [facility] Evaluation + Plan note Future Appointments Appointment Date:12/18/2021 08:45:00 AM Scheduled Provider:SUMMER ROSA MD Location:[facility] Appointment Type: OV OB Routine Follow Up Future Scheduled Tests Laboratory* Panel (AO) 07/21/21 Radiology* US OB < 14 weeks 06/07/21 [facility] Evaluation + Plan note Future Appointments Appointment Date:12/18/2021 08:45:00 AM Scheduled Provider:SUMMER ROSA MD Location:[facility] Appointment Type: OV OB Routine Follow Up Diagnostic Tests Pending * Urine Culture 12/13/21 Future Scheduled Tests Laboratory* Panel (AO) 07/21/21 Radiology* US OB < 14 weeks 06/07/21 [facility] evaluation + Plan note Future Appointments Appointment Date:01/09/2022 04:15:00 PM Scheduled Provider:RICHARD VARGAS Location:[facility] Appointment Type: OV OB Routine Follow Up Future Scheduled Tests Laboratory* Panel (AO) 07/21/21 Radiology* US OB < 14 weeks 06/07/21 [facility] evaluation + Plan note Future Appointments Appointment Date:01/15/2022 08:30:00 AM Scheduled Provider:SUMMER ROSA MD Location:[facility] Appointment Type: OV OB Routine Follow Up Future Scheduled Tests Laboratory* Panel (AO) 07/21/21 Radiology* US OB < 14 weeks 06/07/21 [facility] evaluation + Plan note Future Appointments Appointment Date:01/22/2022 09:45:00 AM Scheduled Provider:SUMMER ROSA MD Location:[facility] Appointment Type: OV OB Routine Follow Up Future Scheduled Tests Laboratory* Panel (AO) 07/21/21 Radiology* US OB < 14 weeks 06/07/21 [facility] evaluation note* Diagnosis Bipolar II disorder major depressive with onset (HCC)- Primary Mental disorders of mother, [facility] Bipolar I disorder with depression (HCC)- Primary [facility] Diagnosis Bipolar II disorder major depressive with onset (HCC)- Primary Mental disorders of [facility], [facility] Diagnosis Bipolar 1 disorder, mixed, moderate (HCC)- [facility] Diagnosis Bipolar 1 disorder, mixed, moderate (HCC) [facility]* Diagnosis Bipolar 1 disorder, mixed, moderate (HCC) [facility]* Diagnosis Bipolar 1 disorder, mixed, moderate (HCC)- Primary Bipolar I disorder with depression (HCC) documented in this encounter [facility] note* Diagnosis Bipolar 1 disorder, mixed, moderate (HCC) documented in this encounter [facility] note* Diagnosis Schizoaffective disorder, bipolar type (HCC)- Primary Schizoaffective disorder, unspecified condition Depression, unspecified depression type Acute UTI Urinary tract infection, site not specified Schizoaffective disorder (HCC) Schizoaffective disorder, unspecified condition documented in this encounter [facility] note* Diagnosis Schizoaffective disorder, bipolar type (HCC)- Primary Schizoaffective disorder, unspecified condition documented in this encounter [facility] note* Diagnosis Strep pharyngitis- Primary Streptococcal sore throat Throat pain documented in this encounter [facility] note* Diagnosis Bipolar 1 disorder, mixed, moderate (HCC)- Primary documented in this encounter [facility] note* Diagnosis Vitamin D deficiency Morbid obesity with BMI of 40.0-44.9, adult (HCC) Gastroesophageal reflux disease without esophagitis Esophageal reflux Prediabetes Other abnormal glucose documented in this encounter [facility] note* Diagnosis Gastroesophageal reflux disease without esophagitis Esophageal reflux Prediabetes Other abnormal glucose Morbid obesity with BMI of 40.0-44.9, adult (HCC) Vitamin D deficiency documented in this encounter [facility] note* Diagnosis Gastroesophageal reflux disease without esophagitis Esophageal reflux Prediabetes Other abnormal glucose Morbid obesity with BMI of 40.0-44.9, adult (HCC) Vitamin D deficiency documented in this encounter [facility] note* Diagnosis Gastroesophageal reflux disease without esophagitis Esophageal reflux Prediabetes Other abnormal glucose Morbid obesity with BMI of 40.0-44.9, adult (HCC) Vitamin D deficiency documented in this encounter [facility] note* Diagnosis Gastroesophageal reflux disease without esophagitis Esophageal reflux Prediabetes Other abnormal glucose Morbid obesity with BMI of 40.0-44.9, adult ([facility]) Vitamin D deficiency documented in this encounter [facility] note* Diagnosis Low vitamin B12 level- Primary Low vitamin D level Gastro-esophageal reflux disease without esophagitis documented in this encounter [facility] note* Diagnosis Snoring- Primary Other dyspnea and respiratory abnormality Gastro-esophageal reflux disease without esophagitis documented in this encounter [facility] note* Diagnosis Prediabetes- Primary Other abnormal glucose Gastro-esophageal reflux disease without esophagitis documented in this encounter [facility] note* Diagnosis Gastroesophageal reflux disease without esophagitis Esophageal reflux Prediabetes Other abnormal glucose Morbid obesity with BMI of 40.0-44.9, adult (HCC) Vitamin D deficiency Gastro-esophageal reflux disease without esophagitis documented in this encounter [facility] note* Diagnosis Bipolar 1 disorder, mixed, moderate (HCC)- Primary documented in this encounter [facility] note* Diagnosis Morbid obesity due to excess calories (HCC)- Primary Pre-diabetes Other abnormal glucose Gastro-esophageal reflux disease without esophagitis documented in this encounter [facility] note* Diagnosis Acute pain of left knee- Primary documented in this encounter [facility] note* Diagnosis Schizoaffective disorder, bipolar type with good prognostic features (HCC)- Primary Bipolar 1 disorder, mixed, moderate (HCC) documented in this encounter [facility] note* Diagnosis Schizoaffective disorder, bipolar type with good prognostic features (HCC)- Primary Bipolar 1 disorder, mixed, moderate (HCC) documented in this encounter [facility] note* Diagnosis Morbid obesity due to excess calories ([facility])- Primary Pre-diabetes Other abnormal glucose Gastro-esophageal reflux disease without esophagitis documented in this encounter [facility] note* Diagnosis PVC (premature ventricular contraction)- Primary Other premature beats Shortness of breath Morbid obesity with BMI of 40.0-44.9, adult ([facility]) Preoperative clearance Unspecified pre-operative examination Prediabetes Other abnormal glucose Gastro-esophageal reflux disease without esophagitis documented in this encounter [facility] note* Diagnosis Gastro-esophageal reflux disease without esophagitis Mild intermittent asthma, unspecified whether complicated- Primary documented in this encounter [facility] note* Diagnosis Shortness of breath PVC (premature ventricular contraction) Other premature beats Mild intermittent asthma, unspecified whether complicated- Primary documented in this encounter [facility] note* Diagnosis Gastro-esophageal reflux disease without esophagitis- Primary Morbid (severe) obesity due to excess calories (HCC) Body mass index (BMI) 40.0-44.9, adult (HCC) Vitamin D deficiency, unspecified Prediabetes Other abnormal glucose Mild intermittent asthma, unspecified whether complicated- Primary documented in this encounter [facility] note* Diagnosis Mild intermittent asthma, unspecified whether complicated- Primary Morbid obesity with BMI of 40.0-44.9, adult ([facility]) Sleep disorder Unspecified sleep disturbance documented in this encounter [facility] note* Diagnosis Prediabetes- Primary Other abnormal glucose documented in this encounter [facility] note* Diagnosis Morbid obesity due to excess calories (HCC)- Primary Pre-diabetes Other abnormal glucose documented in this encounter [facility] note* Diagnosis Schizoaffective disorder, bipolar type (HCC)- Primary Schizoaffective disorder, unspecified condition Schizoaffective disorder, bipolar type (HCC) Schizoaffective disorder, unspecified condition Long-term use of high-risk medication documented in this encounter [facility] note* Diagnosis H. pylori infection- Primary Helicobacter pylori (H. pylori) documented in this encounter [facility] note* Diagnosis H. pylori infection- Primary Helicobacter pylori (H. pylori) documented in this encounter [facility] note* Diagnosis Gastroesophageal reflux disease without esophagitis Esophageal reflux Prediabetes Other abnormal glucose Morbid obesity with BMI of 40.0-44.9, adult ([facility]) Vitamin D deficiency Pre-operative laboratory examination Pre-procedural laboratory examination Encounter for tobacco use screening Gastroesophageal reflux disease without esophagitis Esophageal reflux Prediabetes Other abnormal glucose Morbid obesity with BMI of 40.0-44.9, adult (HCC) Vitamin D deficiency Gastroesophageal reflux disease without esophagitis Esophageal reflux Prediabetes Other abnormal glucose Morbid obesity with BMI of 40.0-44.9, adult ([facility]) Vitamin D deficiency documented in this encounter [facility] note* Diagnosis Shortness of breath PVC (premature ventricular contraction) Other premature beats documented in this encounter [facility] note* Diagnosis Acute pain of right shoulder- Primary Acute pain of right shoulder documented in this encounter [facility] note* Diagnosis Acute pain of right shoulder documented in this encounter [facility] note* Diagnosis Irritable bowel syndrome with constipation- Primary Irritable bowel syndrome documented in this encounter [facility] note* Diagnosis Corneal abrasion due to contact lens, right- Primary documented in this encounter [facility] course Narrative No data available for this section [facility] Hospital Discharge instructions No data available for this section [facility] Hospital Discharge instructions* Attachments The following attachments cannot be sent through Care Everywhere. * Upper GI Endoscopy Discharge Instructions (Citizen Of [place]) documented in this [facility] note No data available for this section [facility] Reason for referral (narrative)* Consultation (Routine) - Pending Review Specialty Diagnoses / Procedures Referred By [facility] Referred To Contact Pulmonary Disease / Pulmonology Diagnoses Prediabetes Morbid obesity with BMI of 40.0-44.9, adult (HCC) Procedures [place] OFFICE/OUTPATIENT NEW HIGH MDM 60-74 MINUTES Jeremy Hallman, MECHATRONICS TECHNICIAN - ARMAMENT MECHANIC [address] [place] [address] [facility] [address] [place] [address] Referral ID Status Reason Start Date Expiration Date Visits Requested Visits Authorized [id number] Pending Review Specialty Services Required 05/20/2023 05/19/2024 1 1 * Consultation (Elective) - Pending Review Specialty Diagnoses / Procedures Referred By [facility] t Referred To Contact Cardiology Diagnoses Prediabetes Morbid obesity with BMI of 40.0-44.9, adult (HCC) Procedures [place] OFFICE/OUTPATIENT NEW HIGH MDM 60-74 MINUTES Jeremy Hallman, MECHATRONICS TECHNICIAN - ARMAMENT MECHANIC [address] [place] [address] [address] [facility] [address] [place] [address] Referral ID Status Reason Start Date Expiration Date Visits Requested Visits Authorized [id number] Pending Review Specialty Services Required 05/20/2023 05/19/2024 1 1 [facility] for referral (narrative)* Consultation (Routine) - Pending Review Specialty Diagnoses / Procedures Referred By Contac t Referred To Contact Sleep Medicine Diagnoses Snoring Procedures [place] OFFICE/OUTPATIENT NEW [facility] MDM 60-74 MINUTES Miguelangel Green MD [address] [facility] [address] [place] [address] [facility] [address] [place] [address] Referral ID Status Reason Start Date Expiration Date Visits Requested Visits Authorized [id number] Pending Review Specialty Services Required 06/13/2023 06/12/2024 1 1 [facility] for referral (narrative)* Diagnostic Procedure Only (Urgent) - Pending Review Specialty Diagnoses / Procedures Referred By Contac t Referred To Contact XR IMAGING Diagnoses Acute pain of left knee Procedures XR KNEE GENERAL 4V AP BOTH/PA BOTH/LAT/MERC LEFT RADIOLOGIC EXAM KNEE COMPLETE 4/MORE VIEWS Magda Guzman, MECHATRONICS TECHNICIAN.ARMAMENT MECHANIC [address] [place] [address] [place] [address] Referral ID Status Reason Start Date Expiration Date Visits Requested Visits Authorized [id number] Pending Review Auto-Generat ed Referral 07/20/2023 08/18/2024 1 1 [facility] for referral (narrative)* Consultation (Routine) - Pending Review Specialty Diagnoses / Procedures Referred By Contac t Referred To Contact Pulmonary Disease / Pulmonology Diagnoses Prediabetes Morbid obesity with BMI of 40.0-44.9, adult (HCC) Procedures [place] OFFICE/OUTPATIENT NEW [facility] MDM 60-74 MINUTES Jeremy Hallman, MECHATRONICS TECHNICIAN - ARMAMENT MECHANIC [address] [facility] [address] [place] [address] [facility] [address] [place] [address] Referral ID Status Reason Start Date Expiration Date Visits Requested Visits Authorized [id number] Pending Review Specialty Services Required 05/20/2023 05/19/2024 1 1 * Consultation (Elective) - Pending Review Specialty Diagnoses / Procedures Referred By Contac t Referred To Contact Cardiology Diagnoses Prediabetes Morbid obesity with BMI of 40.0-44.9, adult (HCC) Procedures [place] OFFICE/OUTPATIENT NEW HIGH MDM 60-74 MINUTES Jeremy Hallman APRN - ARMAMENT MECHANIC [address] [place] [address] [facility] Card [address] [place] [address] Referral ID Status Reason Start Date Expiration Date Visits Requested Visits Authorized [id number] Pending Review Specialty Services Required 05/20/2023 05/19/2024 1 1 [facility] for referral (narrative)* Diagnostic Procedure Only (Urgent) - Closed Specialty Diagnoses / Procedures Referred By Contac t Referred To Contact XR IMAGING Diagnoses Acute pain of right shoulder Procedures XR SHOULDER GENERAL 3V OR MORE AP/TRUE AP/OTHER RIGHT RADEX SHOULDER COMPLETE MINIMUM 2 VIEWS David Carreon APRN.ARMAMENT MECHANIC [address] [facility] [place] [address] [place] [address] Referral ID Status Reason Start Date Expiration Date V isits Requested Visits Authorized [id number] Closed Auto-Generate d Referral 06/11/2024 07/11/2025 1 1 [facility] for referral (narrative)* Diagnostic Procedure Only (Urgent) - Closed Specialty Diagnoses / Procedures Referred By Contac t Referred To Contact XR IMAGING Diagnoses Acute pain of right shoulder Procedures XR SHOULDER GENERAL 3V OR MORE AP/TRUE AP/OTHER RIGHT RADEX SHOULDER COMPLETE MINIMUM 2 VIEWS David Carreon APRN.CNP [address] [place] [address] [place] [address] Referral ID Status Reason Start Date Expiration Date V isits Requested Visits Authorized [id number] Closed Auto-Generate d Referral 06/11/2024 07/11/2025 1 1 [facility] for visit Narrative* Auth/Cert Specialty Diagnoses / Procedures Referred By Zenon dahl Referred To Contact Diagnoses Major depression Bipolar II disorder major depressive with onset (HCC) Referral ID Status Reason Start Date Expiration Date Visits Re quested Visits Authorized [id number] 1 1 [facility] for visit Narrative* Diagnostic Procedure Only (Urgent) - Closed Specialty Diagnoses / Procedures Referred By Zenon dahl Referred To Contact XR IMAGING Diagnoses Acute pain of right shoulder Procedures XR SHOULDER GENERAL 3V OR MORE AP/TRUE AP/OTHER RIGHT RADEX SHOULDER COMPLETE MINIMUM 2 VIEWS David Carreon APRN.ARMAMENT MECHANIC [address] [place] [address] [place] [address] Referral ID Status Reason Start Date Expiration Date V isits Requested Visits Authorized [id number] Closed Auto-Generate d Referral 06/11/2024 07/11/2025 1 1 [facility] Summary Purpose Family History No Family History Records FoundNo Family History Records FoundNo Family History Records FoundNo Family History Records FoundNo Family History Records FoundNo Family History Records Found No data available for this section No data available for this section No data available for this section No data available for this section No data available for this section No data available for this section No Family History Records Found No data available for this section No Family History Records FoundNo Family History Records FoundNo Family History Records FoundNo Family History Records Found Advance Directives No Advanced Directives Records FoundDocuments on File Type Date Recorded 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 Advance Directives and Living Will [...] Documents on File Type Date Recorded 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 Advance Directives and Livin g Will 05/29/2023 8:09 AM Documents on File Type Date Recorded 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 Advance Directives and Livin g [...] 02/15/2022 7:26 PM 02/19/2022 4:5 7 PM Date Activated Date Inactivated Comments 08/19/2023 8:14 AM 08/19/2023 11:24 AM Reason for Referral Specialty Diagnoses / Procedures Referred By Zenon dahl Referred To Contact Nutrition Diagnoses Irritable bowel syndrome with constipation Procedures CONSULT TO NUTRITION THERAPY MEDICAL NUTRITION ASSMT&IVNTJ INDIV EACH [address] Lucy May MD [address] [place] [address] Referral ID Status Reason Start Date Expiration Date Visits Requested Visits Authorized [id number] Authorized PCP Requested Referral 09/02/2024 09/02/2025 1 4 Specialty Diagnoses / Procedures Referred By Zenon dahl Referred To Contact [facility] Diagnoses Irritable bowel syndrome with constipation Procedures [facility] ANORECTAL MANOMETRY ANORECTAL MANOMETRY Lucy May MD [address] [place] [address] [facility] [place] [address] [place] [address] Referral ID Status Reason Start Date Expiration Date Visits Requested Visits Authorized [id number] New Request Auto-Generat ed Referral 09/02/2024 09/02/2025 1 1 Specialty Diagnoses / Procedures Referred By Zenon dahl Referred To Contact Sleep Medicine Diagnoses Sleep disorder Procedures Polysomnography Stacy Mccabe APRN - ARMAMENT MECHANIC [address] [place] [address] [facility] [address] [place] [address] Referral ID Status Reason Start Date Expiration Date V isits Requested Visits Authorized [id number] Pending Review 08/29/2023 02/25/2024 1 1 Specialty Diagnoses / Procedures Referred By Contac t Referred To Contact Cardiology Diagnoses Shortness of breath PVC (premature ventricular contraction) Procedures Transthoracic echocardiogram (TTE) complete with contrast, bubble, strain, and 3D PRN [place] ECHO TTHRC R-T 2D W/WOM-MODE COMPL SPEC&COLR D [place] TTE W OR WO FOL WCON,DOPPLER Mariella Hutchinson PA-C [address] [place] [address] Referral ID Status Reason Start Date Expiration Date V isits Requested Visits Authorized [id number] Pending Review 08/14/2023 02/10/2024 1 1 Specialty Diagnoses / Procedures Referred By Contac t Referred To Contact Cardiology Diagnoses Shortness of breath PVC (premature ventricular contraction) Procedures Cardiac holter monitor (24 hours) Mariella Hutchinson PA-C [address] [place] [address] Referral ID Status Reason Start Date Expiration Date V isits Requested Visits Authorized [id number] Pending Review 08/14/2023 02/10/2024 1 1 Specialty Diagnoses / Procedures Referred By Contac t Referred To Contact Belgica Strange MD [address] [place] [address] Referral ID Status Reason Start Date Expiration Date Visits Re quested Visits Authorized [id number] Closed 1 1 Additional Source Comments INFORMATION SOURCE (unrecogn ized section and content) DATE CREATED AUTHOR 05/22/2018 [facility] DATE CREATED AUTHOR AUTHOR'S ORGANIZ ATION 05/27/2018 [facility] DATE CREATED AUTHOR AUTHOR'S ORGANIZ ATION 05/28/2018 [facility] DATE CREATED AUTHOR AUTHOR'S ORGANIZ ATION 03/30/2021 [facility] DATE CREATED AUTHOR AUTHOR'S ORGANIZ ATION 09/28/2023 [facility] DATE CREATED AUTHOR AUTHOR'S ORGANIZ ATION 10/06/2023 [facility] DATE CREATED AUTHOR AUTHOR'S ORGANIZ ATION 06/27/2024 [facility] ([place]) DATE CREATED AUTHOR AUTHOR'S ORGANIZ ATION 08/26/2024 [facility] DATE CREATED AUTHOR AUTHOR'S ORGANIZ ATION 09/09/2024 [facility] DATE CREATED AUTHOR AUTHOR'S ORGANIZ ATION 03/22/2025 [facility] DATE CREATED AUTHOR AUTHOR'S ORGANIZ ATION 06/14/2025 [facility] Scheduled Active and Recently Administ ered Medications (unrecognized section and content) Medication Order 02/24/2022 02/25/2022 02/26/2022 ARIPiprazole (ABILIFY) tablet 5 mg 5 mg, Oral, Daily, First dose on Sat02/23/22 at 2000 0817 (Given - Provider: Cinthya Carbajal RN) 0805 (Given - Provider: Cinthya Carbajal RN) 0802 (Given - Provider: Deyanira Andres, RN) FLUoxetine (PROZAC) capsule 20 mg 20 mg, Oral, Daily, First dose on Sat02/24/22 at 0900 0817 (Given - Provider: Cinthya Carbajal RN) 0805 (Given - Provider: Cinthya Carbajal, DEZ) 0802 (Given - Provider: Deyanira Andres, RN) lamoTRIgine (LAMICTAL) tablet 100 mg 100 mg, Oral, Daily, First dose (after last modification) on Sat02/23/22 at 2000 0817 (Given - Provider: Cinthya Carbajal RN) 0805 (Given - Provider: Cinthya Carbajal RN) 0802 (Given - Provider: Deyanira Andres, RN) vitamin with Ca-Iron-FA tablet 1 tablet 1 tablet, Oral, Daily, First dose on Sat02/23/22 at 1800 0817 (Given - Provider: Cinthya Carbajal RN) 0805 (Given - Provider: Cinthya Carbajal RN) 0802 (Given - Provider: Deyanira Andres, DEZ) PRN Medication Order 02/24/2022 02/25/2022 02/26/2022 albuterol inhaler 2 puff 2 puff, Inhalation, Every 6 hours PRN, wheezing, shortness of breath, Starting on Sat02/23/22 at 1557, SPACER REQUIRED FOR ADMINISTRATION aluminum-magnesium hydroxide-simethicone (MAALOX PLUS) 200-200-20 mg/5 mL suspension 30 mL 30 mL, Oral, Every 4 hours PRN, indigestion, Starting on Sat02/23/22 at 1703 1034 (Given - Provider: Cinthya Carbajal RN) 1046 (Given - Provider: Cinthya Carbajal [...] at 1703 0817 (Given - Provider: Cinthya Carbajal RN)1531 (Given - Provider: Ling Xiong RN)2218 (Given [...] morning, First dose (after last modification) on Sat12/22/22 at 0900, DO NOT CRUSH OR CHEW. [...] 2000 1019 (Given - Provider: Sandy Ware RN)2030 (Given - Provider: Sary Mckenzie RN) ibuprofen [...] Clary Wynn RN - Comment: Waiting for Norvelt levels to come back) lithium capsule 600 mg 600 mg, Oral, 2 times daily with meals, First dose (after last modification) on Sat09/18/23 at 1700 1655 (Given - Provider: Clary Wynn RN) 0801 (Given - Provider: Leland Hodge LPN)1656 (Given - Provider: Leland Hodge LPN) 0827 (Given - Provider: Shilpa Marquez LPN) lurasidone (LATUDA) tablet 40 mg (CANCELED) 40 mg, Oral, Daily with dinner, First dose on Sat09/18/23 at 1700, Take with food. Administer with a meal containing at least 350 calories. 165 (Given - Provider: Clary Wynn RN) 1655 (Given - Provider: Leland Hodge LPN) lurasidone (LATUDA) tablet 60 mg 60 mg, Oral, Daily with dinner, First dose (after last modification) on Sat09/20/23 at 1700, Take with food. Administer with a meal containing at least 350 calories. ukjbkuaa-ztwi-IE-calcium -mins 9 mg iron-400 mcg tablet 1 tablet 1 tablet, Oral, Daily, First dose on Sat09/18/23 at 1230 1224 (Given - Provider: Clary Wynn RN) 08 (Given - Provider: Leland Hodge LPN) 826 (Given - Provider: Shilpa Marquez LPN) propranoloL (INDERAL) tablet 20 mg 20 mg, Oral, 2 times daily, First dose on Sat09/18/23 at 1530 1655 (Given - Provider: Clary Wynn RN) 801 (Given - Provider: Leland Hodge LPN)2009 (Given [...] 0802 (Given - Provider: Leland Hodge LPN) 08 (Given - Provider: Shilpa Marquez LPN) PRN [...] contact provider. May cause QT interval prolongation.
Scheduled Medication Order 03/18/2025 03/19/2025 03/20/2025 fluorescein 1 MG ophthalmic strip 1 strip (COMPLETED) 1 strip, Both Eyes, Once, On 03/20/25 at 1335, For 1 dose 1335 (Given - Provid er: Arslan Hopkins, DEZ - Comment: given to Attending) tetracaine (Altacaine) 0.5 % ophthalmic solution 1-2 drop (COMPLETED) 1-2 drop, Both Eyes, Once, On 03/20/25 at 1335, For 1 dose 1335 (Given - Provid er: Arslan Hopkins RN - Comment: given to Attending) Care Team (unrecognized sect ion and content) [place]. Senator Relationship Specialty Start Date End Date No, Physician [facility] PCP - General 04/05/22 U.[place]. Senator Relationship Specialty Start Date End Date No, Physician [facility] PCP - General 04/05/22 U.[place]. Senator Relationship Specialty Start Date End Date No, Physician [facility] PCP - General 04/05/22 U.[place]. Senator Relationship Specialty Start Date End Date No, Physician [facility] PCP - General 04/05/22 U.[place]. Senator Relationship Specialty Start Date End Date No, Physician [facility] PCP - General 04/05/22 U.[place]. Senator Relationship Specialty Start Date End Date No, Physician [facility] PCP - General 04/05/22 U.[place]. Senator Relationship Specialty Start Date End Date No, Physician [facility] PCP - General 04/05/22 U.[place]. Senator Relationship Specialty Start Date End Date Debra Smith, MECHATRONICS TECHNICIAN.ARMAMENT MECHANIC [address] [facility] [place] [address] PCP - General Family Medicine 09/19/22 U.[place]. Senator Relationship Specialty Start Date End Date No, Physician [facility] PCP - General 04/05/22 U.[place]. Senator Relationship Specialty Start Date End Date Magda Kelly [address] [place] [address] PCP - General 04/17/23 Ciaran Fritz MD [address] [place], [place] [id number] Surgeon General Surgery 04/25/23 U.[place]. Senator Relationship Specialty Start Date End Date Magda Kelly [address] [place] [address] PCP - General 04/17/23 Ciaran Fritz MD [address] [place], [place] [id number] Surgeon General Surgery 04/25/23 U.[place]. Senator Relationship Specialty Start Date End Date GillesMagda [address] [place] [address] PCP - General 04/17/23 Ciaran Fritz MD [address] [place] [address] [address] [place] [address] Surgeon General Surgery 04/25/23 [place]. Senator Relationship Specialty Start Date End Date Magda Kelly [address] [place] [address] PCP - General 04/17/23 Ciaran Fritz MD [address] [place] [address] Surgeon General Surgery 04/25/23 U.[place]. Senator Relationship Specialty Start Date End Date Magda Kelly [address] [place] [address] PCP - General 04/17/23 Ciaran Fritz MD [address] [place], [place] [id number] Surgeon General Surgery 04/25/23 U.[place]. Senator Relationship Specialty Start Date End Date Magda Kelly [address] [place] [phone] PCP - General 04/17/23 Ciaran Fritz MD [address] [place], [place] [id number] Surgeon General Surgery 04/25/23 U.[place]. Senator Relationship Specialty Start Date End Date Magda Kelly [address] [place] [phone] PCP - General 04/17/23 Ciaran Fritz MD [address] [place], [place] [address] Surgeon General Surgery 04/25/23 U.[place]. Senator Relationship Specialty Start Date End Date Magda Kelly [address] [place] [address] PCP - General 04/17/23 Ciaran Fritz MD [address] [place], [place] [address] Surgeon General Surgery 04/25/23 U.[place]. Senator Relationship Specialty Start Date End Date No, Physician [facility] PCP - General 04/05/22 U.[place]. Senator Relationship Specialty Start Date End Date No, Physician [facility] PCP - General 04/05/22 U.[place]. Senator Relationship Specialty Start Date End Date Magda Kelly [address] [place] [address] PCP - General 04/17/23 Ciaran Fritz MD [address] [place], [place] [address] Surgeon General Surgery 04/25/23 U.[place]. Senator Relationship Specialty Start Date End Date Byron Kellyssica [address] [place] [address] PCP - General 04/17/23 Ciaran Fritz MD [address] [place], [place] [id number] Surgeon General Surgery 04/25/23 U.[place]. Senator Relationship Specialty Start Date End Date Debra Smith APRN.ARMAMENT MECHANIC [address] [facility] [place] [address] PCP - General Family Medicine 09/19/22 U.[place]. Senator Relationship Specialty Start Date End Date No, Physician [facility] PCP - General 04/05/22 U.[place]. Senator Relationship Specialty Start Date End Date No, Physician [facility] PCP - General 04/05/22 U.[place]. Senator Relationship Specialty Start Date End Date Magda Kelly [address] [place] [address] PCP - General 04/17/23 Ciaran Fritz MD [address] [facility] [address] [place], [place] [address] Surgeon General Surgery 04/25/23 U.[place]. Senator Relationship Specialty Start Date End Date Magda Kelly [address] [place] [phone] PCP - General 04/17/23 Ciaran Fritz MD [address] [place], [place] [address] Surgeon General Surgery 04/25/23 U.[place]. Senator Relationship Specialty Start Date End Date Magda Kelly [address] [place] [address] PCP - General 04/17/23 Ciaran Fritz MD [address] [place], [place] [address] Surgeon General Surgery 04/25/23 U.[place]. Senator Relationship Specialty Start Date End Date Gilles Magda [address] [place] [address] PCP - General 04/17/23 Ciaran Fritz MD [address] [place], [place] [address] Surgeon General Surgery 04/25/23 U.[place]. Senator Relationship Specialty Start Date End Date Gilles Magda [address] [place] [phone] PCP - General 04/17/23 Ciaran Fritz MD [address] [place], [place] [address] Surgeon General Surgery 04/25/23 U.[place]. Senator Relationship Specialty Start Date End Date Gilles Magda [facility] [place] [phone] PCP - General 04/17/23 Ciaran Fritz MD [address] [place] [address] Surgeon General Surgery 04/25/23 U.[place]. Senator Relationship Specialty Start Date End Date Gilles Magda [address] [place] [phone] PCP - General 04/17/23 Ciaran Fritz MD [address] [place], [place] [address] Surgeon General Surgery 04/25/23 U.[place]. Senator Relationship Specialty Start Date End Date Magda Kelly [address] [place] [phone] PCP - General 04/17/23 Ciaran Fritz MD [address] [place], [place] [address] Surgeon General Surgery 04/25/23 U.[place]. Senator Relationship Specialty Start Date End Date Magda Kelly [address] [place] [phone] PCP - General 04/17/23 Ciaran Fritz MD [address] [facility] [address] [place], [place] [address] Surgeon General Surgery 04/25/23 U.[place]. Senator Relationship Specialty Start Date End Date Magda Kelly [address] [place] [phone] PCP - General 04/17/23 Ciaran Fritz MD [address] [facility] [address] [place], [place] [id number] Surgeon General Surgery 04/25/23 U.[place]. Senator Relationship Specialty Start Date End Date No, Physician [facility] PCP - General 04/05/22 U.[place]. Senator Relationship Specialty Start Date End Date GillesMagda [address] [place] [phone] PCP - General 04/17/23 Ciaran Fritz MD [address] [place], [place] [address] Surgeon General Surgery 04/25/23 U.[place]. Senator Relationship Specialty Start Date End Date Magda Kelly [address] [place] [address] PCP - General 04/17/23 Ciaran Fritz MD [address] [place] [address] [address] [place], [place] [address] Surgeon General Surgery 04/25/23 U.[place]. Senator Relationship Specialty Start Date End Date Magda Kelly [address] [place] [phone] PCP - General 04/17/23 Ciaran Fritz MD [address] [place] [address] [address] [place], [place] [id number] Surgeon General Surgery 04/25/23 Reason for Visit (unrecogniz ed section and content) Reason Comments Medication Management Reason Onset Date Comments Medication Refill 08/15/2022 [...] Expiration Date Visits Re quested Visits Authorized [id number] 1 1 Reason Comments Headache Pt reported neck, th roat pain x1 day. Reason Comments Surgical Consult NEW Specialty Diagnoses / Procedures Referred By Contac t Referred To Contact Bariatrics Diagnoses Morbid (severe) obesity due to excess calories (HCC) Procedures Eval & treat Ach [facility] [address] [place] [address] Referral ID Status Reason Start Date Expiration Date V isits Requested Visits Authorized [id number] Pending Review 04/17/2023 10/14/2023 1 1 Reason [...] with BMI of 40.0-44.9, adult (HCC) Procedures [place] OFFICE/OUTPATIENT NEW HIGH MDM 60-74 MINUTES Jeremy Hallman, MECHATRONICS TECHNICIAN - ARMAMENT MECHANIC [address] [facility] [address] [place] [address] [facility] Card [address] [place] [address] Referral ID Status Reason Start Date Expiration Date Visits Requested Visits Authorized [id number] Pending Review Specialty Services Required 05/20/2023 05/19/2024 1 1 Reason Onset Date Comments OTHER 08/15/2023 Specialty Diagnoses / Procedures Referred By [facility] Referred To Contact Diagnoses Gastro-esophageal reflux disease without esophagitis Gastro-esophageal reflux disease without esophagitis [K21.9] Procedures [place] EGD TRANSORAL BIOPSY SINGLE/MULTIPLE EGD WITH BIOPSY Ciaran Fritz MD [address] [facility] [address] [place] [address] Merged With [facility] [address] [facility] [address] [place] [address] Referral ID Status Reason Start Date Expiration Date Visits Re quested Visits Authorized [id number] 1 1 Reason Onset Date Comments Abdominal Pain 08/20/2023 Specialty Diagnoses / Procedures Referred By [facility] Referred To Contact Cardiology Diagnoses Shortness of breath PVC (premature ventricular contraction) Procedures Cardiac holter monitor (24 hours) Mariella Hutchinson PA-C [address] [place] [address] Referral ID Status Reason Start Date Expiration Date Visits Re quested Visits Authorized [id number] Closed 08/14/2023 02/10/2024 1 1 Reason Onset Date Comments Pageout 08/20/2023 Reason Comments New Patient Specialty Diagnoses / Procedures Referred By Contac t Referred To Contact Pulmonary Disease / Pulmonology Diagnoses Prediabetes Morbid obesity with BMI of 40.0-44.9, adult (HCC) Procedures [place] OFFICE/OUTPATIENT NEW HIGH MDM 60-74 MINUTES Jeremy Hallman, MECHATRONICS TECHNICIAN - ARMAMENT MECHANIC [address] [place] [address] [facility] [address] [place] [address] Referral ID Status Reason Start Date Expiration Date Visits Requested Visits Authorized [id number] Pending Review Specialty Services Required 05/20/2023 05/19/2024 1 1 Reason Comments Weight Loss D/E final 4 of 3 Specialty Diagnoses / Procedures Referred By Contac t Referred To Contact Diagnoses Bipolar disorder, unspecified Schizoaffective disorder, bipolar type ([facility]) Referral ID Status Reason Start Date Expiration Date Visits Re quested Visits Authorized [id number] 1 1 Reason Onset Date Comments Abnormal Lab 08/21/2023 + H pylori Specialty Diagnoses / Procedures Referred By Contac t Referred To Contact Cardiology Diagnoses Shortness of breath PVC (premature ventricular contraction) Procedures Transthoracic echocardiogram (TTE) complete with contrast, bubble, strain, and 3D PRN [place] ECHO TTHRC R-T 2D W/WOM-MODE COMPL SPEC&COLR D [place] TTE W OR WO FOL WCON,DOPPLER Mariella Hutchinson PA-C [address] [place] [address] Referral ID Status Reason Start Date Expiration Date Visits Re quested Visits Authorized [id number] Closed 08/14/2023 02/10/2024 1 1 Reason Onset Date Comments Pelvic Pain 05/11/2024 Appointment Request 05/11/2024 Reason Comments Shoulder Injury Right shoulder down arm pain and tingling x1 day Reason Comments Abdominal Pain Constipation Reason Comments Eye Problem Contact stuck Source Comments (unrecognize d section and content) In the event this informatio n is protected by the Federal Confidentiality of Alcohol and Drug Abuse Patient Records regulations: The Federal rules restrict any use of the information to criminally investigate or prosecute any alcohol or drug abuse patient.[facility] Township[facility] the event this information is protected by the Federal Confidentiality of Alcohol and Drug Abuse Patient Records regulations: The Federal rules restrict any use of the information to criminally investigate or prosecute any alcohol or drug abuse patient.[facility] Township[facility] the event this information is protected by the Federal Confidentiality of Alcohol and Drug Abuse Patient Records regulations: The Federal rules restrict any use of the information to criminally investigate or prosecute any alcohol or drug abuse patient.[facility] Township[facility] the event this information is protected by the Federal Confidentiality of Alcohol and Drug Abuse Patient Records regulations: The Federal rules restrict any use of the information to criminally investigate or prosecute any alcohol or drug abuse patient.[facility] TownshipIn the event this information is protected by the Federal Confidentiality of Alcohol and Drug Abuse Patient Records regulations: The Federal rules restrict any use of the information to criminally investigate or prosecute any alcohol or drug abuse patient.[facility] FOR RECORDS PERTAINING TO PATIENTS WHO ARE [...] BE BASED ON THE PRIMARY CLINICAL RECORDS. [facility] [employer] [facility]. provides no warranty or guarantee of the accuracy or completeness of information in this document.
--- NOTE | 2025-06-17 21:07 | EX.ED.DYSGE1 ---
HPI History of Present Illness Chief Complaint: Headache Narrative Narrative: Chief complaint and HPI: Headache. 25-year-old female with past medical history of migraines, TBI, PTSD, schizoaffective disorder presents for evaluation of headache. Patient states she has a history of migraines in which her primary care physician manages. She states she was recently referred to neurology but has yet to be seen. She states that she was recently started on a new medication for her migraines as well as prednisone. States she took a sumatriptan earlier today. Associated symptoms are nausea, light sensitivity, sound sensitivity. Called her primary care physician who told her to come to the emergency department as headache was not improving. She denies any recent trauma. Denies any fever, chills, URI symptoms, syncope, presyncope, chest pain, shortness of breath, numbness/tingling, weakness, neurological deficit. Not . Review of systems: See HPI Medications: As listed on the chart Allergies: As listed on the chart PFSH: Per chart Vital signs: As listed on the chart. Reviewed. Physical exam: Gen: A&O x3, NAD Head: Normocephalic, atraumatic Eyes: No sclera icterus, conjunctiva clear, PERRL, EOMI ENT: TMs clear BL, moist mucous membranes, no facial tenderness, no temporal artery tenderness Neck: Trachea midline, No JVD, Full ROM, No meningismus CV: RRR, no murmurs Resp: Lungs CTA BL, no w/r/c GI: Abd soft, non-distended, non-tender, no r/r/g Musc: Full ROM, no deformity, strength +5/5 Skin: Warm, dry, no rash Neuro: Alert, oriented, grossly intact, sensation intact Psych: Cooperative, appropriate mood and affect [facility] Medical History Schizoaffective disorder, bipolar type Asthma Generalized anxiety disorder PTSD (post-traumatic stress disorder) delivery delivered Depression Diabetes Migraine TBI (traumatic brain injury) Home Medications ?Medication ?Instructions ?Recorded ?Last Taken ?Type cholecalciferol (vitamin D3) 50 50 mcg PO DAILY 05/26/24 Unknown History mcg (2,000 unit) capsule magnesium oxide 500 mg capsule 500 mg PO DAILY 05/26/24 Unknown History ferrous sulfate 325 mg (65 mg 325 mg PO DAILY 06/25/24 Unknown History iron) tablet Held on 07/01/24. Instructions: per pt ondansetron HCl 8 mg tablet 8 mg PO Q8H PRN nausea and 06/25/24 Unknown Rx vomiting #20 tabs theanine 200 mg capsule mg PO 06/25/24 Unknown History omeprazole 40 mg capsule,delayed 40 mg PO DAILY #30 caps 06/30/24 Unknown Rx release quetiapine 100 mg tablet 100 mg PO QHS #90 tabs 02/19/25 Unknown Rx clonidine HCl 0.1 mg tablet 0.1 mg PO BID PRN anxiety #180 tabs 03/23/25 Unknown Rx quetiapine 50 mg tablet 50 mg PO QDAY #90 tabs 04/29/25 Unknown Rx buspirone 10 mg tablet 10 mg PO TID #90 tabs 05/20/25 Unknown Rx hydroxyzine HCl 50 mg tablet 50 mg PO QHS #30 tabs 06/10/25 Unknown Rx lamotrigine 150 mg tablet 150 mg PO QDAY #30 tabs 06/10/25 Unknown Rx Allergy/AdvReac Type Severity Reaction Status Date / Time dragon fruit Allergy Intermediate rash Verified 06/17/25 19:57 Penicillins Allergy Rash Verified 06/17/25 19:57 fluoxetine (From Prozac) AdvReac Mild Other Verified 06/17/25 19:57 Tricyclic Antidepressants AdvReac adverse Verified 06/17/25 19:57 and Tricy Surgical History H/O section History of appendectomy Social History adopted: Yes number of children: 1 current occupational status: unemployed 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 current occupational exposures/hazards: No pets and animals: No history of recent travel: No sexually active: No other: female Smoking Status: Never smoker Tobacco: How many years used: 0 Electronic Cigarette Use: not used second hand exposure: Yes alcohol intake: former substance use type: does not use caffeine: Yes eating out: rarely or never during the past year weight has: decreased > 10 lbs frequency: 3-4 times per week duration: 30-45 minutes/day leti/latter-day: yazidism seatbelt use: always do you feel safe at home: Yes additional social history: -no contact - not EXAM Physical Exam Const Vital Signs: 06/17/25 19:54 06/17/25 21:53 Temperature 98.3 F Temperature Source Temporal Pulse Rate 65 61 Respiratory Rate 16 14 Blood Pressure 134/81 H 131/62 H Blood Pressure Mean 98 85 Pulse Ox 100 99 Oxygen Delivery Method Room Air Room Air MDM MDM MDM Narrative Medical decision making narrative: 25-year-old female with past medical history of migraines, TBI, PTSD, schizoaffective disorder presents for evaluation of headache. Patient has a history of migraines. See HPI. Patient states this feels like her typical migraine accepted that it is lasting longer. On presentation, patient in no acute distress. Physical exam unremarkable. Onset of the headache was not timed with exertional activity or trauma. Patient has not experienced any fever, syncope, or near syncope. She has no meningismus. Denies any numbness, tingling, or weakness of the extremities. No history of intracranial abnormality. Differential diagnosis includes but is not limited to migraine headache, tension headache. Low suspicion for intracranial abnormality or bleed however given that patient states this is longer than her typical migraine will add on CT head. NS bolus, Reglan, tramadol ordered. Will not give Toradol until CT head without bleed. CT of the brain without any acute intracranial abnormality. Toradol ordered. On reevaluation, patient states her headache has improved. I suspect her symptoms are secondary to a migraine headache. Recommend following up with her primary care physician. Keep her neurology appointment. Return back to the ED if symptoms change or worsen. She confirmed understanding of plan. Patient stable to discharge home. She was offered antiemetics but states she already has some at home. Impression: 1. Migraine headache 2. History of migraines Radiography Diagnostic Testing: Clinical Impression(s) from Imaging Studies Brain CT 06/17/25 20:45 IMPRESSION: Normal head CT. Reading Location: [id number] Discharge Plan Triage Chief Complaint: Headache ED Provider: Lobito Donnelly Dx/Rx/DC Orders Clinical Impression: Migraine headache without aura Instructions: ED, Migraine (Classical) Prescriptions: No Action magnesium oxide 500 mg capsule 500 mg PO DAILY cholecalciferol (vitamin D3) 50 mcg (2,000 unit) capsule 50 mcg PO DAILY ferrous sulfate 325 mg (65 mg iron) tablet 325 mg PO DAILY theanine 200 mg capsule PO ondansetron HCl 8 mg tablet 8 mg PO Q8H PRN (Reason: nausea and vomiting) Qty: 20 0RF omeprazole 40 mg capsule,delayed release(DR/EC) 40 mg PO DAILY Qty: 30 1RF clonidine HCl 0.1 mg tablet 0.1 mg PO BID PRN (Reason: anxiety) Qty: 180 1RF quetiapine 50 mg tablet 50 mg PO QDAY Qty: 90 1RF lamotrigine 150 mg tablet 150 mg PO QDAY Qty: 30 1RF hydroxyzine HCl 50 mg tablet 50 mg PO QHS Qty: 30 1RF quetiapine 100 mg tablet 100 mg PO QHS Qty: 90 1RF buspirone 10 mg tablet 10 mg PO TID Qty: 90 1RF Primary Care Provider: Magda Campoverde Referrals: Magda Campoverde, LINE DRIVER-C [Primary Care Provider] - 3-5 Days Activity Restrictions/Additional Instructions: You received Toradol here in the emergency department, no ibuprofen for 8 hours. Follow-up with your primary care physician. Return back to the ED if symptoms change or worsen. Recommend keeping your neurology appointment. Print Language: [place] Disposition Disposition: Home, Self Care
[2025-06-17 21:53] VITALS: BP 131/62; PULSE 61; RESP 14; O2SAT 99
[2025-06-17] MEDS: Ketorolac 30 MG/ML Syringe IV (22:01)
[2025-06-17 22:53] VITALS: BP 131/62; PULSE 56; RESP 16; TEMP 37.1; O2SAT 100
== END 2025-06-17 22:54 | disposition home or self-care (01) ==
PROVIDERS: Emergency Provider Surgery; PCP Nurse Practitioner Family; Visit Provider Surgery
DX: G43.009 Migraine without aura, not intractable, without status migrainosus (principal); F25.0 Schizoaffective disorder, bipolar type; F43.10 Post-traumatic stress disorder, unspecified; F41.1 Generalized anxiety disorder; Z87.820 Personal history of traumatic brain injury; Z79.899 Other long term (current) drug therapy
CPT/HCPCS: 70450; 96361; 96374; 96375; 99284; A4216

== ENCOUNTER 2025-06-30 08:54 | Emergency (ER) | payer MEDICAID, SELFPAY ==
[2025-06-30 08:54] VITALS: BP 127/86; PULSE 81; RESP 16; TEMP 36; O2SAT 100; BMI 54.1
--- NOTE | 2025-06-30 09:04 | EDS_ITS ---
HPI History of Present Illness Chief Complaint: Headache Narrative Narrative: 25-year-old female past medical history of migraine headaches presents with migraine headache that she has had for the last 3 weeks. Multiple medications have been ineffective in treating it. She states that she had taken sumatriptan hand without effect and that her primary care provider who is managing her headaches tried a different type of triptan. Of note, she was seen in the emergency department 2 weeks ago and had a CT of the brain which was negative. She states she has had ongoing headaches, and developed paresthesias of her bilateral arms. She has an appointment with a neurologist in [place] tomorrow. She currently rates her headache an 8 out of 10. No exacerbating or alleviating factors. Before 2 weeks ago the last time she had been in the emergency department for her migraine headache was a year prior. While she states that she has a headache all over radiating to her neck, mainly on the left side. [facility] Medical History Schizoaffective disorder, bipolar type Asthma Generalized anxiety disorder PTSD (post-traumatic stress disorder) delivery delivered Depression Diabetes Migraine TBI (traumatic brain injury) Home Medications ?Medication ?Instructions ?Recorded ?Last Taken ?Type cholecalciferol (vitamin D3) 50 50 mcg PO DAILY Unknown History mcg (2,000 unit) capsule magnesium oxide 500 mg capsule 500 mg PO DAILY 4 Unknown History ferrous sulfate 325 mg (65 mg 325 mg PO DAILY 06/25/24 Unknown History iron) tablet Held on 07/01/24. Instructions: per pt ondansetron HCl 8 mg tablet 8 mg PO Q8H PRN nausea and 06/25/24 Unknown Rx vomiting #20 tabs theanine 200 mg capsule mg PO 06/25/24 Unknown Histo ry omeprazole 40 mg capsule,delayed 40 mg PO DAILY #30 ca ps 06/30/24 Unknown Rx release quetiapine 100 mg tablet 100 mg PO QHS #90 tabs 02/19 Unknown Rx clonidine HCl 0.1 mg tablet 0.1 mg PO BID PRN anxiety #180 tabs 03/23/25 Unknown Rx quetiapine 50 mg tablet 50 mg PO QDAY #90 tabs 04/29 Unknown Rx buspirone 10 mg tablet 10 mg PO TID #90 tabs Unknown Rx hydroxyzine HCl 50 mg tablet 50 mg PO QHS #30 tabs 09/25 Unknown Rx lamotrigine 150 mg tablet 150 mg PO QDAY #30 tabs 06/01 Unknown Rx Allergy/AdvReac Type Severity Reaction Status Date / Time dragon fruit Allergy Intermediate rash Verified 06/30/25 08:55 Penicillins Allergy Rash Verified 06/30/25 08:55 fluoxetine (From Prozac) AdvReac Mild Other Verified 06/30/25 08:55 Tricyclic Antidepressants AdvReac adverse Verified 06/30/25 08:55 and Tricy Surgical History H/O section History of appendectomy Social History adopted: Yes number of children: 1 current occupational status: unemployed 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 current occupational exposures/hazards: No pets and animals: No history of recent travel: No sexually active: No other: female Smoking Status: Never smoker Tobacco: How many years used: 0 Electronic Cigarette Use: not used second hand exposure: Yes alcohol intake: former substance use type: does not use caffeine: Yes eating out: rarely or never during the past year weight has: decreased > 10 lbs frequency: 3-4 times per week duration: 30-45 minutes/day leti/mosque: zoroastrianism seatbelt use: always do you feel safe at home: Yes additional social history: -no contact - not ROS ROS ED ROS Narrative Review of systems positive for 3 weeks of headache, positive paresthesias of bilateral upper extremities. Positive photophobia and phonophobia. No exacerbating or alleviating factors. Rates 8 out of 10 pain. Previous history of migraine headaches. EXAM Physical Exam Narrative Exam Narrative: Afebrile. Vital signs noted. Nontoxic-appearing. Cardiovascular examination reveals a regular rate and rhythm. Lungs are clear to auscultation bilaterally. Abdomen is soft and nontender without guarding or rebound. Positive bowel sounds. Neurological examination nonfocal, nonlateralizing, alert, awake, oriented x 3. EHL intact bilaterally. Patellar DTRs equal and symmetric. Const Vital Signs: 06/30/25 08:54 06/30/25 10:54 Temperature 96.8 F L Temperature Source Temporal Pulse Rate 81 81 Respiratory Rate 16 14 Blood Pressure 127/86 H 122/84 H Blood Pressure Mean 99 96 Pulse Ox 100 99 Oxygen Delivery Method Room Air MDM MDM MDM Narrative Medical decision making narrative: I reviewed the patient's prior ED visit. She had a CT of the brain which was negative. She received Reglan and Toradol last visit. I do not feel that she requires CT of the brain or lumbar puncture. Differential diagnosis includes but not limited to intractable migraine at the top differential. I have low suspicion for brain mass or hemorrhage as she had a negative CT 2 weeks ago. She was administered a bolus of IV fluids, Compazine and 50 mg of Benadryl as she states that she has a high tolerance for Benadryl. She was also administered Toradol 15 mg IV. She states she has already been on prednisone. Upon repeat examination, patient states that she has no better, no worse. She still rates her pain an 8 out of 10. I will administer Decadron 10 mg IV as well as subcutaneous sumatriptan. I did not attempt to contact the neurologist she is to see tomorrow as well. I was able to speak with Dr. Chase, and the patient has an appointment with the PA tomorrow. He states that attempt can be made to make the patient more comfortable, but this may be more of an intractable headache and it will take some time for any further imaging and treatment including infusions. He agreed with the medications that have already been administered. Even if her headache is intractable, was not felt that she would require observation or admission and that she should be discharged to follow-up with neurology tomorrow. Upon repeat examination, she now rates her headache improved, 4 out of 10, down by 4 points. Disposition is discharged home in stable condition. History & Record Review Discussion w/independent historian: Patient Management Discussion w/another healthcare provider: Security Messenger (Dr. Chase) Discharge Plan Triage Chief Complaint: Headache ED Provider: Shine Van Dx/Rx/DC Orders Clinical Impression: Intractable migraine, Headache Instructions: ED Headache Unspecified, ED, Migraine (Classical) Prescriptions: No Action magnesium oxide 500 mg capsule 500 mg PO DAILY cholecalciferol (vitamin D3) 50 mcg (2,000 unit) capsule 50 mcg PO DAILY ferrous sulfate 325 mg (65 mg iron) tablet 325 mg PO DAILY theanine 200 mg capsule PO ondansetron HCl 8 mg tablet 8 mg PO Q8H PRN (Reason: nausea and vomiting) Qty: 20 0RF omeprazole 40 mg capsule,delayed release(DR/EC) 40 mg PO DAILY Qty: 30 1RF clonidine HCl 0.1 mg tablet 0.1 mg PO BID PRN (Reason: anxiety) Qty: 180 1RF quetiapine 50 mg tablet 50 mg PO QDAY Qty: 90 1RF lamotrigine 150 mg tablet 150 mg PO QDAY Qty: 30 1RF hydroxyzine HCl 50 mg tablet 50 mg PO QHS Qty: 30 1RF quetiapine 100 mg tablet 100 mg PO QHS Qty: 90 1RF buspirone 10 mg tablet 10 mg PO TID Qty: 90 1RF Primary Care Provider: Magda Campoverde Referrals: David Chase MD [Med Staff - Consulting] - 1 Day Magda Campoverde, HORSE RIDING COACH OR INSTRUCTOR-C [Primary Care Provider] - Activity Restrictions/Additional Instructions: Follow-up with Dr. Chase/his PA tomorrow as scheduled. Print Language: Chinese Disposition Disposition: Home, Self Care
[2025-06-30] MEDS: 0.9% Normal Saline (1000mL) 1,000 ML 999 ML IV (09:24)
[2025-06-30] MEDS: DiphenhydrAMINE 50 MG/ML Syringe IV (09:25)
[2025-06-30 10:54] VITALS: BP 122/84; PULSE 81; RESP 14; O2SAT 99
[2025-06-30 11:53] VITALS: BP 122/84; PULSE 81; RESP 14; TEMP 36.7; O2SAT 99
== END 2025-06-30 11:55 | disposition home or self-care (01) ==
PROVIDERS: Emergency Provider Emergency Medicine; PCP Nurse Practitioner Family; Visit Provider Emergency Medicine
DX: G43.919 Migraine, unspecified, intractable, without status migrainosus (principal); E11.9 Type 2 diabetes mellitus without complications; F41.9 Anxiety disorder, unspecified; Z79.899 Other long term (current) drug therapy; F32.A Depression, unspecified; Z90.49 Acquired absence of other specified parts of digestive tract
CPT/HCPCS: 96361; 96372; 96374; 96375; 99283; A4216; J3030

== ENCOUNTER → 2025-07-06 | Outpatient (CLI) | payer MEDICAID, SELFPAY ==
[2025-07-06 12:51] LABS: Hematocrit 38.5 % (37-47); Hemoglobin 12.9 g/dL (12.0-15.0); Immature Granulocytes Count 0.020 X10^3/uL (0.0-0.0); Mean Corp Hgb Conc 33.5 g/dL (32-36); Mean Corpuscular Volume 86.5 fL (81-99); Mean Platelet Vol. 10.2 fl (6.2-12.0); NRBC Flagged by Analyzer 0 % (0-5); Platelet Count 393 K/mm3 (150-450); RBC Distribution Width CV 13.2 % (11.6-14.6); RBC Distribution Width SD 41.7 fl (35.1-43.9); Red Blood Count 4.45 M/mm3 (4.2-5.4); White Blood Count 6.9 K/mm3 (4.4-11.0)
[2025-07-06 13:19] LABS: AST(SGOT) 20 U/L (<=31); Alanine Aminotransfer ALT/SGPT 28 U/L (<=34); Albumin, Serum 4.2 g/dL (3.5-5.0); Alkaline Phosphatase 73 U/L (35-104); Anion Gap 12 (5-15); BUN 13 mg/dL (4-19); BUN/Creat Ratio 19.5 RATIO (10-20); Calcium,Total 9.3 mg/dL (7.6-11.0); Carbon Dioxide 20.2 mmol/L (21.0-32.0); Chloride 104 mmol/L (98-108); Ferritin 45 ng/mL (22-378); Free T3 3.8 pg/mL (2.18-3.98); Globulin 3.1 g/dL (2.2-4.2); Glucose 84 mg/dL (70-99); Potassium 4.1 mmol/L (3.3-5.1); Vitamin B12 645 pg/mL (180-914); Vitamin D,25 Hydroxy 30.3 ng/mL (30-100)
[2025-07-06 13:39] LABS: CRP 3.04 mg/L (0.0-3.0)
[2025-07-06 13:53] LABS: Iron 49 ug/dL (50-170); Iron Binding Capacity,Total 290 ug/dL (250-450); Iron Binding Capacity,Unsat 241 ug/dL (228-428)
[2025-07-07 13:08] LABS: ANTINUCLEAR ANTIBODIES DIRECT Negative (Negative); SJOGREN'S Anti-SS-A test < 0.2 AI (0.0-0.9); SJOGREN'S Anti-SS-B test < 0.2 AI (0.0-0.9)
== END | disposition home or self-care (01) ==
LOC: VSLAB 09:51
PROVIDERS: PCP Nurse Practitioner Family; Visit Provider Nurse Practitioner Family
DX: E55.9 Vitamin D deficiency, unspecified (principal); M25.50 Pain in unspecified joint; R53.83 Other fatigue; R73.03 Prediabetes
CPT/HCPCS: 36415; 80053; 82306; 82607; 82728; 83036; 83540; 83550; 84439; 84443; 84481; 85025; 85652; 86038; 86140; 86235; 86376; 86431

== ENCOUNTER 2025-10-19 00:22 | Emergency (ER) | payer OTHER, SELFPAY ==
[2025-10-19 00:23] VITALS: BP 157/104; PULSE 84; RESP 12; TEMP 36.7; O2SAT 100; BMI 27.6
--- NOTE | 2025-10-19 00:54 | EKG12_ITS ---
Test Reason : Blood Pressure : */* mmHG Vent. Rate : 73 BPM Atrial Rate : 73 BPM P-R Int : 122 ms QRS Dur : 74 ms QT Int : 370 ms P-R-T Axes : 43 0 2 degrees QTcB Int : 407 ms Normal sinus rhythm Normal ECG Confirmed by JOSE LUIS MACIAS, GABI ([id number]), news copy editor ETELVINA FITZGERALD ([id number]) on 10/19/2025 12:24:59 PM Referred By: Confirmed By: GABI AMAYA MD
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
[2025-10-19 01:22] VITALS: BP 138/94; PULSE 80; RESP 17; O2SAT 97
--- OUTSIDE RECORDS SUMMARY | 2025-10-19 01:35 | XMS RPT_ITS | CCD ---
Author Organization [employer] ion 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 [facility] Care Team Providers [employer] Media Program Director Name Role Phone LIBIA GLEASON Unavailable Unavailable SUMMER ARELLANO Unavailable Unavailable SUMMER ARELLANO Unavailable Unavailable David Goss Unavailable Unavailable David Goss Unavailable Unavailable Summer Arellano Unavailable Unavailable RICKY MAE Unavailable Unavailable DEBRA SMITH Primary Care Unavailable RICKY EDGE Referring Unavailable DEBRA LOZA Primary Care Physician ( [phone] Unavailable Primary Care Provider Unavailabl e No, Physician Primary Care Provider Unavailabl e No, Physician Primary Care Provider Unavailabl e No, Physician Primary Care Provider Unavailabl e Luis MUNSON, Debra Primary Care Provider Magda Kelly Primary Care Provider [phone] Ciaran Fritz MD Unavailable Magda Kelly Primary Care Provider Ciaran Fritz MD Unavailable JOHANA RESENDEZ Attending Unavailable JOHANA RESENDEZ Admitting Unavailable SAUL PETERSON Consulting Unavailable NO, [...] PHYSICIAN, PATIENT UNSURE Primary Care Physician Unavailable Robin, Magda Primary Care Provider [phone] Unavailable Primary Care Provider Unavailjacobo ST, DR. BOBBY RUBIO Primary Care Physician JAZMINE MACIAS, ELOY Velázquez Attending Unavailable PAMELA MARY MD Attending Unavail able MACIEL, DR. BOBBY RUBIO Primary Care Unavail LISA Upton MD Attending Unavailable PHYSICIAN, PATIENT UNSURE Primary Care Unaaleena boudreaux PHYSICIAN, PATIENT UNSURE Primary Care Unaaleena LUCERO MD, ELOY Velázquez Attending Unavailable PHYSICIAN, PATIENT UNSURE Primary Care Unaaleena YANG MD, LISA Hudson Attending Unavailable JAZMINE MACIAS, ELOY Velázquez Attending Unavailable QUIN, ALVAREZ Referring Unavailable ROBIN, MAGDA Primary Care Unavailable ABEREGG, KRISLYN P Attending Unavailable ABEREGG KRISLYN P Referring Unavailable QUIN, ALVAREZ Attending Unavailable ROBIN, MAGDA Referring Unavailable ROBIN, MAGDA Primary Care Unavailable Suzan Fernandez Attending Unavailable Robin VSC, Magda Primary Care Unavailabl e Oleghe, Efewongbe Primary Care Unavailable Arslan Salas Attending Unavailable Arslan Salas Referring Unavailable Peggy Rodriguez Attending Unavailable Candida Vale Attending Unavailable Mariella Barajas Attending Unavailable Robin VSC, Magda Referring Unavailabl e Robin VSC, Magda Primary Care Unavailabl e Ferullo, Roxann Primary Care Unavailable Peggy Rodriguez Attending Unavailable Oleghe, Efewongbe Primary Care Unavailable Oleghe, Efewongbe Referring Unavailable Ling Devine Attending Unavail able Robin VSC, Magda Referring Unavailabl e Robin VSC, Magda Primary Care Unavailabl e Peggy Rodriguez Attending Unavailable Ferullo, Roxann Primary Care Unavailable Peggy Rodriguez Attending Unavailable Ferullo, Roxann Primary Care Unavailable Peggy Rodriguez Attending Unavailable Oleghe, Efewongbe Primary Care Unavailable Oleghe, Efewongbe Referring Unavailable Rodriguez Peggy Attending Unavailable Oleghe, Efewongbe Primary Care Unavailable Oleghe, Efewongbe Referring Unavailable Jennifer Peggy Attending Unavailable Castro Roxann Primary Care Unavailable Rodriguez Peggy Attending Unavailable Oleghe, Efewongbe Primary Care Unavailable Arslan Salas Attending Unavailable Lobito Donnelly Attending Unavailabl e Robin [facility] Primary Care Unavailabl e Shine Van Attending Unavailable Robin [facility], [facility] Primary Care Unavailabl e Oleghe, Efewongbe Referring Unavailable Robin [facility], [facility] Primary Care Unavailabl e Candida Vale Attending Unavailable Oleghe, Efewongbe Referring Unavailable Oleghe, Efewongbe Primary Care Unavailable Rodriguez Peggy Attending Unavailable Oleghe, Efewongbe Primary Care Unavailable Arslan Salas Referring Unavailable Oxana LEES, Arslan Attending Unavailable Arslan Salas Attending Unavailable Rodriguez, Peggy Attending Unavailable Rodriguez, Peggy Attending [facility]available [facility] [phone] [facility] Primary Care Unavailable CONEDWINROUX, MAGDA Attending Unavailrosa MCADAMS DO, DR NADIR Lopez Attending Unavailable SIERRA MACIAS, DR MARRUFO Attending UnavailROXANN Majano DO Attending Unavailable HERMELINDO HUNT PA-C Attending Unavailabl e [facility] Primary Care Unavailable [facility] Primary [facility] Unavailable YARON ALVARADO Attending Unavailable [facility] Primary Care Unavailable YARON ALVARADO Attending Unavailable YARON ALVARADO Referring Unavailable [facility] Unavailable Allergies Allergy Classification Reported Allergen(s) Allergy Type Date of Onset Reaction(s) Facility Cephalosporins (antibiotic) (1 source) cefdinir Drug Allergy 03-18-20 15 Other: See Comments [facility] Work Phone: Penicillins (antibiotic) (1 source) Penicillins Drug Allergy 01-14-20 09 Rash [facility] Work Phone: Serotonin Reuptake Inhibitors (SSRIs) (1 source) FLUoxetine Drug Allergy 09-02-20 14 Other: See Comments [facility] (20 sources) Penicillins; Translations: [PENICILLINS] Propensity to adverse reactions to drug (disorder) 01-14-20 09 Rash [facility] Repository (1 source) cefdinir; Translations: [facility]Omnicef] [facility]) FLUoxetine; Translations: [PROzac] [facility] (20 sources) penicillin; Translations: [penicillin] [facility] (16 sources) cefdinir; Translations: [CEFDINIR] Drug Allergy 03-18-20 15 Other: See Comments, Other, Unknown [facility] Repository (11 sources) FLUoxetine; Translations: [FLUOXETINE HCL] Drug Allergy 09-02-20 14 Other: See Comments [facility] Repository (12 sources) Seasonal allergy; Translations: [SEASONAL ALLERGIES] Propensity to adverse reactions (disorder) 03-06-20 12 Other: See Comments [facility] Repository (20 sources) Penicillin G Drug Allergy 08-14-20 23 [facility] (16 sources) liraglutide; Translations: [LIRAGLUTIDE] Drug Allergy 09-18-20 23 Other [facility] (4 sources) FLUoxetine; Translations: [FLUOXETINE] Drug Allergy 07-10-20 21 Other (See Comments), Unknown [facility] Repository (1 source) liraglutide Drug Allergy 09-18-20 23 Other (See Comments) [facility] (1 source) Pomegranate Extract Drug Allergy 07-06-20 25 [facility] Repository (1 source) Tricyclic Antidepressants and Tricy Drug allergy (disorder) 07-06-20 25 [facility] Repository (1 source) dragon fruit Drug allergy (disorder) 04-07-20 25 [facility] Repository (2 sources) LORazepam; Translations: [lorazepam] Drug Allergy 10-06-20 25 hallucinations , seritonin syndrom [facility] Medications Current Medications Medication Drug Class(es) Dates Sig (Normalized) Sig (Original) + Nebulizer Supplies (9 sources) Start: 01-29-2017 + Nebulizer Supplies Nebulizer, [...] every six hours as needed for pain [place] 325- 5 mg oral tablet Dose = [...] day(s), # 20 tab(s), 0 Refill(s), Pharmacy: [facility] [facility], S/P section Post-op pain, 142.2, cm, 01/29/22 [...] Diabetes, # 100 EA, 5 Refill(s), Pharmacy: [address], Anxiety, 142.2, cm, 10/31/21 10:02:00 EST, Height, 78.5, kg, 10/13/21 16:44:00 EST, Dosing Weight Start Date: 11/01/21 Status: Ordered azithromycin 500 mg oral tablet (7 sources) Macrolide Antimicrobial Start: 03-05-2023 End: 03-10-2023 take 1 tablet by mouth once daily azithromycin (ZITHROMAX) 500 mg tablet Take 1 tablet by mouth once daily for 5 days. 5 tablet 0 03/05/2023 03/10/2023 Active Start: 12-29-2018 End: 06-29-2025 azithromycin (ZITHROMAX) 250 mg tablet 0 12/29/2018 06/29/2025 Discontinued Comment on above: Take 1 tablet by dong once daily for 5 days. benzonatate 100 mg oral capsule (3 sources) Non-narcotic Antitussive Start: 06-29-20 25 take 1 capsule by mouth every eight hours as needed benzonatate (TESSALON PERLE) 100 mg capsule Take 1 capsule by mouth three times a day as needed. 21 capsule 06/29/2025 Active Blood Glucose Test Machine (6 sources) Start: 11-01-20 21 Blood Glucose Test Machine See Instructions, Use as directed Brand type per insurance or patient preference Diagnosis: Gestational Diabetes, # 1 EA, 0 Refill(s), Pharmacy: [address], Anxiety, 142.2, cm, 10/31/21 10:02:00 EST, Height, 78.5, kg, 10/13/21... Start Date: 11/01/21 Status: Ordered brompheniramine maleate 0.4 mg/ml / dextromethorphan hydrobromide 2 mg/ml / pseudoephedrine hydrochloride 6 mg/ml oral solution (9 sources) alpha-Adrenergic Agonist, Uncompetitive M-bjetvn-F-aspartate Receptor Antagonist, Sigma-1 Agonist Start: 06-26-20 take 5 mL by mouth four times daily as needed Brompheniramine-Ps eudoeph-DM (BROMFED DM) 2-30-10 mg/5 mL syrup Indications: URI, acute Take 5 mL by mouth four times daily as needed. 120 mL 06/26/2017 Active Comment on above: Take 5 mL by mouth f our times daily as needed. busPIRone hydrochloride 10 mg oral tablet (2 sources) Start: 08-18-20 busPIRone 10 mg oral tablet Dose : 10 mg = 1 tab(s), Oral, TID Start Date: 08/18/25 Status: Ordered Medication Dispense Status: Completed Total Allowed Fills: 1 Fills Dispensed: 0 Calcium Carbonate / vitamin D3 (9 sources) CALCIUM CARBONATE/VITAMIN D3 (VITAMIN D-3 ORAL) Indications: VUR (vesicoureteric reflux) , Urinary frequency Take by mouth 3 times a WEEK. Active CALCIUM CARBONAT E/VITAMIN D3 (VITAMIN D-3 ORAL) Indications: VUR (vesicoureteric reflux) , Urinary frequency Take by mouth 3 times a WEEK. 0 Active Comment on above: Take by mouth 3 time s a WEEK. cetirizine hydrochloride 10 mg oral tablet (20 sources) Histamine-1 Receptor Antagonist Start: 08-07-20 cetirizine [...] 12-24-2022 clindamycin (CLEOCIN) capsul e 300 mg cyclobenzaprine hydrochloride 10 mg oral tablet (1 source) Muscle Relaxant Start: 03-07-2024 End: 03-12-2024 cyclobenzaprine 10 mg oral tablet Dose : 10 mg = 1 tab(s), Oral, TID, X 5 day(s), # 15 tab(s), 0 Refill(s), 03/12/24 8:07:00 PM EDT, Pharmacy: [facility], 142.2, cm, 03/07/24 19:16:00 EDT, [...] # 90 tab(s), 0 Refill(s), [facility] [address], 147.9, cm, 08/04/21 9:16:00 EDT, Height, kg, 07/10/21 7:33:00 EDT, Dosing Weight Start Date: 08/18/21 Status: Ordered escitalopram 5 mg oral tablet (8 sources) Serotonin Reuptake Inhibitor Start: 08-18-2025 escitalopram 5 mg or al tablet Dose : 5 mg = 1 tab(s), Oral, qDay Start Date: 08/18/25 Status: Ordered Medication Dispense Status: Completed Total Allowed Fills: 1 Fills Dispensed: 0 Start: 01-11-2020 End: 06-29-2025 take 1 tablet by mouth once daily escitalopram oxalate (LEXAPRO) 10 mg tablet Take 1 tablet by mouth once daily. 01/11/2020 06/29/2025 Discontinued Comment on above: Take 1 tablet by dong th once daily. ferrous sulfate 325 mg oral tablet (10 sources) Start: 03-22-2022 IRON (ferrous sulfate 325 [...] BID, # 60 tab(s), 2 Refill(s), [facility] 142.2, cm, 01/29/22 6:36:00 EST, Height, kg, 01/29/22 6:36:00 EST, Dosing Weight Start Date: 01/31/22 Status: Ordered FLUoxetine 10 mg oral capsule (20 sources) Serotonin Reuptake Inhibitor Start: 06-26-2023 End: 07-21-2024 FLUoxetine (PROZAC) 10 mg capsule 07/19/2023 Active Start: 04-16-2022 End: 10-10-2022 PROzac 10 mg oral capsule Do se : 10 mg = 1 cap(s), Oral, qDay, # 30 cap(s), 2 Refill(s), Pharmacy: [facility], 147, cm, 04/16/22 13:09:00 EDT, Height Start Date: 04/16/22 Stop Date: 07/15/22 Status: Ordered Medication Dispense Status: Completed Quantity: 30.0 Unit: cap(s) Total Allowed Fills: 3 Fills Dispensed: 0 Start: 02-20-2022 End: 06-14-2022 take 1 capsule [...] propionate 0.05 mg/actuat metered dose nasal spray (9 sources) Corticosteroid Start: 02-18-2017 take 2 spray(s) nasal route once daily fluticasone (FLONASE) 50 mcg/actuation nasal spray Use 2 Sprays in each nostril once daily. 1 g 6 02/18/2017 Active Comment on above: Use 2 Sprays in each nostril once daily. 60 actuat formoterol fumarate 0.005 mg/actuat / mometasone furoate 0.1 mg/actuat metered dose inhaler (9 sources) Corticosteroid, beta2-Adrenergic Agonist Start: 12-30-2018 take 2 puff(s) by inhalation twice daily mometasone-formote rol (DULERA) 100-5 mcg/actuation inhaler Indications: Mild persistent asthma, uncomplicated (HCC) , Cough , Allergic rhinitis, unspecified seasonality, unspecified trigger Inhale 2 Puffs as instructed twice daily. 1 Inhaler 3 12/30/2018 Active Comment on above: Inhale 2 Puffs as in structed twice daily. hydrOXYzine hydrochloride 50 mg oral tablet (6 sources) Antihistamine Start: 08-18-2025 hydrOXYzine hydrochloride 50 mg oral tablet Dose : 50 mg = 1 tab(s), Oral, qHS Start Date: 08/18/25 Status: Ordered Medication Dispense Status: Completed Total Allowed Fills: 1 Fills Dispensed: 0 Start: 09-17-2023 End: 09-20-2023 take 1 tablet [...] tab(s), 2 Refill(s), 07/15/22 13:45:00 EDT, Pharmacy: [facility], 147, cm, 04/16/22 13:09:00 EDT, Height Start Date: 04/16/22 Stop Date: 07/15/22 Status: Ordered Start: 02-23-2022 End: 02-26-2022 take 1 tablet by mouth every six hours as needed for anxiety 50 mg, Oral, Every 6 hours PRN, anxiety, Starting on 02/23/22 at 1703 ibuprofen 600 mg oral tablet (13 sources) Nonsteroidal Anti-inflammatory Drug Start: 06-11-2017 End: [...] on above: Take 1 tablet by dong every 6 hours as needed for Pain. [...] 0 Refill(s), 03/10/24 8:05:00 PM EDT, Pharmacy: [facility], 142.2, cm, 03/07/24 19:16:00 EDT, Height, kg, 03/07/24 19:16:00 EDT, Dosing Weight Start Date: 03/07/24 Stop Date: 03/10/24 Status: Ordered lansoprazole 30 mg delayed release oral capsule (6 sources) Proton Pump Inhibitor Start: 08-22-20 End: 09-05-20 take 1 capsule by mouth twice daily lansoprazole (Prevacid) [address] capsule Indications: H. pylori infection Take 1 capsule (30 mg) by mouth 2 times daily for 14 days. Do not crush or chew. 28 capsule 0 08/22/2023 Active magnesium oxide 250 mg oral tablet (1 source) Start: 03-22-20 Magnesium 250 mg tablet Dose : 500 mg = 2 tab(s), Oral, qDay, 0 Refill(s) Start Date: 03/22/22 Status: Ordered meclizine hydrochloride 25 mg oral tablet (13 sources) Antiemetic Start: 06-26-20 meclizine (ANTIVERT) 25 mg tab 06/26/2023 Active Start: 06-26-2023 End: 09-20-2023 meclizine (ANTIVERT) 25 MG c hewable tablet Chew and Swallow 1 (one) tablet (25 mg total) 3 (three) times a day as needed . 30 tablet 0 06/26/2023 09/20/2023 Discontinued (Stop Taking at Discharge) meloxicam 15 mg oral tablet (9 sources) Nonsteroidal Anti-inflammatory Drug Start: 03-11-2017 take 1 tablet by mouth once daily meloxicam (MOBIC) 15 mg tablet Take 1 tablet by mouth once daily. 30 tablet 1 03/11/2017 Active Comment on above: Take 1 tablet by dong th once daily. metFORMIN hydrochloride 500 mg oral tablet (9 sources) Biguanide Start: 06-03-2018 take 1 tablet by mouth twice daily at mealtime metFORMIN (GLUCOPHAGE) 500 mg tablet Take 1 tablet by mouth twice daily with meals. 60 tablet 6 06/03/2018 Active Comment on above: Take 1 tablet by dong th twice daily with meals. methocarbamol 500 mg oral tablet (2 sources) Muscle Relaxant Start: 06-29-2025 End: 07-02-2025 take 1 tablet by mouth every six hours as needed methocarbamol (ROBAXIN) 500 mg tablet Take 1 tablet by mouth every 6 hours as needed (Pain) for up to 3 days. 12 tablet 06/29/2025 07/02/2025 Active methylPREDNISolone (1 source) Corticosteroid Start: 07-20-2023 End: 07-26-2023 methylPREDNISolone (MEDROL, SARAH,) 4 mg Dose-Pack Follow dosing instructions, take with food. 21 tablet 0 07/20/2023 07/26/2023 Active Comment on above: Follow dosing instru ctions, take with food. metroNIDAZOLE 500 mg oral tablet (5 sources) Nitroimidazole Antimicrobial Start: 05-08-2024 End: 05-15-2024 metroNIDAZOLE 500 mg oral tablet Dose : 500 mg = 1 tab(s), Oral, BID, X 7 day(s), # 14 tab(s), 0 Refill(s), 05/15/24 5:43:00 PM EDT, Pharmacy: [facility], 142.2, cm, 05/08/24 15:35:00 EDT, Height, [...] . 0 nebulizer accessories(OPTICHAMBER MEDIUM FACE MASK) (9 sources) Start: 05-24-2010 nebulizer accessories(OPTICHAMBER MEDIUM FACE [...] 0 Refill(s), 12/20/21 16:24:00 EST, [facility]: [facility] [facility], 142.2, cm, 12/13/21 15:32:00 EST, Height, 76, [...] to Pharmacy)) ondansetron 4 mg oral tablet (12 sources) Serotonin-3 Receptor Antagonist Start: 03-07-2024 End: 03-12-2024 Zofran 4 mg oral tablet Dose : 4 mg = 1 tab(s), Oral, q8h, PRN Nausea/Vomiting, X 5 day(s), # 15 tab(s), 0 Refill(s), 03/12/24 8:05:00 PM EDT, Pharmacy: [facility], 142.2, cm, 03/07/24 19:16:00 EDT, Height, [...] Nausea/Vomiting, # 20 tab(s), 1 Refill(s), Pharmacy: [facility] 142.2, cm, 09/28/21 10:02:00 EDT, Height, kg, 09/19/21 10:24:00 EDT, Dosing Weight Start Date: 10/10/21 Status: Ordered Start: 09-20-2021 Zofran 4 mg or al tablet Dose : 4 mg = 1 tab(s), Oral, q6h, PRN Nausea/Vomiting, # 20 tab(s), 1 Refill(s), Pharmacy: [facility] 142.2, cm, 09/19/21 10:24:00 EDT, Height, kg, 09/19/21 10:24:00 EDT, Dosing Weight Start Date: 09/20/21 Status: Ordered Comment on above: Take 4 mg by mouth. 24 hr oxybutynin chloride 5 mg extended release oral tablet (9 sources) Cholinergic Muscarinic Antagonist Start: 7 take 1 tablet by mouth once daily oxybutynin XL (DITROPAN XL) 5 mg 24 hr tablet Indications: Urinary urgency , Urinary frequency Take 1 tablet by mouth once daily. 30 tablet 1 09/23/2017 Active Comment on above: Take 1 tablet by dong once daily. potassium chloride 0.4 meq / sodium chloride 7.69 meq oral tablet (9 sources) Start: 8 take 2 tablets by mouth twice daily oral electrolytes tab (THERMOTABS) 287-180-15 mg tab Indications: Dizziness , Vitamin D deficiency , Intractable episodic headache, unspecified headache type Take 2 thermotabs bid po 120 tablet 6 11/04/2018 Active Comment on above: Take 2 thermotabs bi d po predniSONE 10 mg oral tablet (4 sources) Start: End: take 4 tablets by mouth once daily [...] # 1 EA, 1 Refill(s), [facility], 142.2, cm, 08/29/21 22:22:00 EDT, Height, kg, 08/29/21 22:22:00 EDT, Dosing Weight Start Date: 08/30/21 Status: Ordered promethazine hydrochloride 12.5 mg oral tablet (1 source) Phenothiazine Start: 08-23-2021 promethazine 12.5 mg oral tablet Dose : 12.5 mg = 1 tab(s), Oral, q4h, PRN for nausea/vomiting, # 30 tab(s), 1 Refill(s), [facility], 147.9, cm, 08/23/21 14:54:00 EDT, Height, kg, [...] 10/20/2023 Active Start: 08-08-2023 End: 09-20-2023 propranolol (Inderal) 20 MG tablet 20 mg in the morning and 20 mg in the evening. 08/08/2023 Active rizatriptan 10 mg oral tablet (2 sources) Serotonin-1b and Serotonin-1d Receptor Agonist Start: 08-18-2025 rizatriptan 10 mg oral tablet Dose : 10 mg = 1 tab(s), Oral, Once, PRN as needed for migraine headache Start Date: 08/18/25 Status: Ordered Medication Dispense Status: Completed Total Allowed Fills: 1 Fills Dispensed: 0 sertraline 50 mg oral tablet (11 sources) Serotonin Reuptake Inhibitor Start: 12-28-2021 Zoloft 50 mg oral tablet See Instructions, 1 and 1/2 tablet fdaily (75mg), 0 Refill(s) Start Date: 12/28/21 Status: Ordered Start: 08-30-2021 Zoloft 50 mg o ral tablet Dose : 50 mg = 1 tab(s), Oral, qDay, # 90 tab(s), 1 Refill(s), Pharmacy: [facility] [address], , 142.2, cm, 08/29/21 22:22:00 EDT, Height, kg, 08/29/21 22:22:00 EDT, Dosing Weight Start Date: 08/30/21 Status: Ordered traZODone hydrochloride 50 mg oral tablet (1 source) Serotonin Reuptake Inhibitor Start: 03-01-2022 End: 08-28-2022 traZODone 50 mg oral tablet Dose : 50 mg = 1 tab(s), Oral, qHS, # 30 tab(s), 5 Refill(s), Pharmacy: [facility], 145.6, cm, 03/01/22 13:00:00 EDT, Height Start Date: 03/01/22 Stop Date: 08/28/22 Status: Ordered triamcinolone acetonide 1 mg/ml topical lotion (9 sources) Corticosteroid Start: 05-03-2015 triamcinolone (KENALOG) 0.1 [...] mild pain, Starting on Sat09/17/23 at 1648 [id number] 200 actuat albuterol 0.09 mg/actuat metered dose [...] 1 EA, 1 Refill(s), [facility]: [facility], 142.2, cm, 08/29/21 22:22:00 EDT, Height, kg, 08/29/21 22:22:00 EDT, Dosing Weight Start Date: 08/30/21 Status: Ordered Medication Dispense Status: Completed Quantity: 1.0 Unit: EA Total Allowed Fills: 2 Fills Dispensed: 0 Start: 12-30-2018 take 2 puff(s) by in halation every four hours as needed PROAIR RESPICLICK 90 mcg/actuation aepb Indications: Mild persistent asthma, uncomplicated (HCC) , Cough , Allergic rhinitis, unspecified seasonality, unspecified trigger Inhale 2 Puffs as instructed every 4 hours as needed. 1 Inhaler 1 12/30/2018 Active Start: 02-18-2017 albuterol (PRO VENTIL) 2.5 mg /3 mL (0.083 %) nebulizer solution Indications: Moderate persistent asthma with acute exacerbation (HCC) Use 3 mL via nebulizer every 4 [...] at 1646 Start: 12-20-2022 End: 12-24-2022 take 30 mL by mouth every four [...] bedtime, # 30 tab(s), 2 Refill(s), Pharmacy: [facility], 147, cm, 04/16/22 13:09:00 EDT, Height Start Date: 04/16/22 Stop Date: 07/15/22 Status: Ordered Medication Dispense Status: Completed Quantity: 30.0 Unit: tab(s) Total Allowed Fills: 3 Fills Dispensed: 0 Start: 04-05-2022 End: 06-14-2022 take 0.5 tablet by mouth once daily ARIPiprazole (ABILIFY) 10 MG tablet Take 0.5 (one-half) tablet (5 mg total) by mouth daily . 30 tablet 1 04/05/2022 06/14/2022 Discontinued Start: 03-22-2022 take 1 tablet by dong th at bedtime ARIPiprazole 10 mg oral tablet [...] (two) times a day . 60 tablet 11/28/2022 12/24/2022 Discontinued (Stop Taking at Discharge) [...] agent for agitation, Starting on Sat12/20/22 at 2001 May give 30 minutes after first line [...] 14 days. 28 tablet 0 08/22/2023 09/05/2023 cloNIDine hydrochloride 0.1 mg oral tablet (5 sources) Central alpha-2 Adrenergic Agonist Start: 10-08-2025 End: 10-08-2025 take 0.1 mg by mouth once 0.1 mg, Oral, Once, On Sat10/08/25 at 1915, For 1 dose Start: 09-19-2023 End: 10-20-2023 take 1 tablet by mouth at bedtime cloNIDine HCL (CATAPRES) 0.1 MG tablet Take 1 (one) tablet (0.1 mg total) by mouth at bedtime . 30 tablet 0 09/20/2023 10/20/2023 Active diphenhydrAMINE hydrochloride 25 mg oral tablet (1 source) Histamine-1 Receptor Antagonist Start: 02-23-2022 End: 02-26-2022 take 25 mg by mouth once daily as needed for sleep 25 mg, Oral, Nightly PRN, sleep, Starting on Sat02/23/22 at 1707 ergocalciferol 1.25 mg oral capsule (9 sources) Provitamin D2 Compound Start: 03-15-2023 End: 06-03-2023 take 1 capsule by mouth every week ergocalciferol (Vitamin D2) 1.25 MG (79899 UT) capsule Take 1 capsule by mouth 1 (one) time per week. 0 03/15/2023 06/03/2023 Discontinued (Therapy completed) 1 ml haloperidol 5 mg/ml prefilled syringe (8 sources) Typical Antipsychotic Start: 10-08-2025 End: 10-08-2025 5 mg, IntraMUSCular, Once, On Sat10/08/25 at 2245, For 1 dose, IM route of administration preferred. Because of the risk of TdP and QT prolongation, ECG monitoring is recommended if haloperidol is given IV Start: 09-17-2023 End: 09-20-2023 take 1 tablet [...] as needed haloperidoL (HALDOL) tablet 5 mg lamoTRIgine 100 mg oral tablet (20 sources) Mood Stabilizer, Anti-epileptic Agent Start: 10-08-2025 End: 10-08-2025 take 100 mg by mouth once 100 mg, Oral, Once, On Sat10/08/25 at 1915, For 1 dose Start: 12-10-2023 take 0.5 tablet by m outh once daily lamoTRIgine (LAMICTAL) 100 mg tablet Take 150 mg by mouth once daily. 1/2 tablet [...] DAY, # 30 tab(s), 2 Refill(s), Pharmacy: [facility], 147, cm, 04/16/22 13:09:00 EDT, Height Start Date: 04/16/22 Stop Date: 07/15/22 Status: Ordered Medication Dispense Status: Completed Quantity: 30.0 Unit: tab(s) Total Allowed Fills: 3 Fills Dispensed: 0 Start: 02-23-2022 End: 04-05-2022 take 1 tablet [...] 02/20/2022 02/26/2022 Discontinued (Stop Taking at Discharge) 3 ml liraglutide 6 mg/ml pen injector [...] Inject 0.6 mg under the skin daily. [place] (1 source) Start: 09-17-2023 End: 09-18-2023 take [...] as needed . 0 08/15/2022 Discontinued (Reorder) lurasidone hydrochloride 80 mg oral tablet (18 sources) Atypical Antipsychotic Start: 12-10-2023 End: 06-29-2025 lurasidone (LATUDA) 80 mg tablet 12/10/2023 06/29/2025 Discontinued Start: 09-20-2023 End: 09-20-2023 lurasidone (LATUDA) tablet 6 0 mg Start: 09-20-2023 lurasidone (La tuda) 60 MG tablet Take 80 mg by mouth. 09/20/2023 Active Start: 09-20-2023 End: 10-20-2023 lurasidone (Latuda) 60 MG ta blet Take 60 mg by mouth. 0 09/20/2023 Active Start: 09-18-2023 End: 09-19-2023 lurasidone (LATUDA) tablet 4 0 mg magnesium hydroxide 80 mg/ml oral suspension (3 [...] constipation, constipation, Starting on Sat02/23/22 at 1703 metoclopramide 10 mg oral tablet (15 sources) Dopamine-2 Receptor Antagonist Start: 09-20-2021 End: 06-29-2025 metoclopramide HCl (REGLAN) 10 mg tablet Take 10 mg by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 [facility] [place] ([facility]) [address] ALT [Catalytic activity/Vol] 26 U/L Normal <30 [facility] Comment on above: Performed By: #### L AB17, LAB46, LAB34, LAB43 #### State Epidemiologist: SONAM RAYMOND ([id number]) [facility] ([facility]) [address] Anion gap [Moles/Vol] 13 mmol/L Normal 3-13 [facility] Comment on above: Performed By: #### L AB17, LAB46, LAB34, LAB43 #### State Epidemiologist: SONAM RAYMOND ([id number]) [facility] ([facility]) [address] AST [Catalytic activity/Vol] 19 U/L Normal <34 [facility] Comment on above: Performed By: #### L AB17, LAB46, LAB34, LAB43 #### State Epidemiologist: SONAM RAYMOND ([id number]) [facility] ([facility]) [address] Bilirubin [Mass/Vol] 0.5 mg/dL Normal <1.2 [facility] Comment on above: Performed By: #### L AB17, LAB46, LAB34, LAB43 #### State Epidemiologist: SONAM RAYMOND ([id number]) [facility] ([facility]) [address] [place] [address] [place] Calcium [Mass/Vol] 9.2 mg/dL Normal 8.4-10.2 [facility] Comment on above: Performed By: #### L AB17, LAB46, LAB34, LAB43 #### State Epidemiologist: SONAM RAYMOND ([id number]) [facility] ([facility]) [address] [place] [address] [place] Chloride [Moles/Vol] 107 mmol/L Normal 98-107 [facility] Comment on above: Performed By: #### L AB17, LAB46, LAB34, LAB43 #### State Epidemiologist: SONAM RAYMOND ([id number]) [facility] [address] CO2 [Moles/Vol] 18 mmol/L Low 22-29 [facility] Comment on above: Performed By: #### L AB17, LAB46, LAB34, LAB43 #### State Epidemiologist: SONAM RAYMOND ([id number]) [facility] ([facility]) [address] Creatinine [Mass/Vol] 0.81 mg/dL Normal 0.52-1.02 [facility] Comment on above: Performed By: #### L AB17, LAB46, LAB34, LAB43 #### State Epidemiologist: SONAM RAYMOND ([id number]) [facility] ([facility]) [address] GLOMERULAR FILTRATION RATE ML/MIN/1.73 SQ M.PREDICTED >90.0 Normal >60.0 [facility] Comment on above: Result Comment: Calc ulation based on the Chronic Kidney Disease Epidemiology Collaboration (CKD-EPI) equation refit without adjustment for race Performed By: #### L AB17, LAB46, LAB34, LAB43 #### State Epidemiologist: SONAM RAYMOND ([id number]) [facility] ([facility]) [address] Glucose [Mass/Vol] 108 mg/dL High 74-100 [facility] Comment on above: Performed By: #### L AB17, LAB46, LAB34, LAB43 #### State Epidemiologist: SONAM RAYMOND ([id number]) [facility] ([facility]) [address] [place] [address] [place] Potassium [Moles/Vol] 3.5 mmol/L Normal 3.5-5.1 [facility] Comment on above: Result Comment: Plas ma potassium values may be up to 0.5 mmol/L lower than serum values. Performed By: #### L AB17, LAB46, LAB34, LAB43 #### State Epidemiologist: SONAM RAYMOND ([id number]) [facility] ([facility]) [address] Protein [Mass/Vol] 7.8 g/dL Normal 6.4-8.3 [facility] Comment on above: Performed By: #### L AB17, LAB46, LAB34, LAB43 #### State Epidemiologist: SONAM RAYMOND ([id number]) [facility] ([facility]) [address] Sodium [Moles/Vol] 138 mmol/L Normal 136-145 [facility] Comment on above: Performed By: #### L AB17, LAB46, LAB34, LAB43 #### State Epidemiologist: SONAM RAYMOND ([id number]) [facility] ([facility]) [address] Urea nitrogen [Mass/Vol] 11 mg/dL Normal 8-21 [facility] Comment on above: Performed By: #### L AB17, LAB46, LAB34, LAB43 #### State Epidemiologist: SONAM RAYMOND ([id number]) [facility] ([facility]) [address] Comprehensive metabolic 1998 panelon 10-08-2025 Albumin [Mass/Vol] 4.7 g/dL High 3.1 - 4.5 g/dL [facility] ALP [Catalytic activity/Vol] 73 U/L 40 - 150 U/L [facility] ALT [Catalytic activity/Vol] 26 U/L NINF - 30 U/L [facility] Anion gap [Moles/Vol] 13 mmol/L 3 - 13 mmol/L [facility] AST [Catalytic activity/Vol] 19 U/L NINF - 34 U/L [facility] Bilirubin [Mass/Vol] 0.5 mg/dL NINF - 1.2 mg/dL [facility] Calcium [Mass/Vol] 9.2 mg/dL 8.4 - 10. 2 mg/dL [facility] Chloride [Moles/Vol] 107 mmol/L 98 - 10 7 mmol/L [facility] CO2 [Moles/Vol] 18 mmol/L Low 22 - 29 mmol/L [facility] Creatinine [Mass/Vol] 0.81 mg/dL 0.52 - 1.02 mg/dL [facility] GFR/1.73 sq M.predicted (S/P/Bld) [Vol rate/Area] - PINF [facility] Comment on above: Calculation based on the Chronic Kidney Disease Epidemiology Collaboration (CKD-EPI) equation refit without adjustment for race Glucose [Mass/Vol] 108 mg/dL High 74 - 100 mg/dL [facility] Potassium [Moles/Vol] 3.5 mmol/L 3.5 - 5.1 mmol/L [facility] Comment on above: Plasma potassium kimberli ues may be up to 0.5 mmol/L lower than serum values. Protein [Mass/Vol] 7.8 g/dL 6.4 - 8.3 g/dL [facility] Sodium [Moles/Vol] 138 mmol/L 136 - 145 mmol/L [facility] Urea nitrogen [Mass/Vol] 11 mg/dL 8 - 21 mg/dL [facility] DRUGS OF ABUSEon 10-08-2025 AMPHETAMINE SCREEN Negative Normal [facility] Comment on above: Performed By: #### L [id number] ####State Epidemiologist: SONAM RAYMOND ([id number])[facility] ([facility])[address] BARBITURATES SCREEN Negative Normal [facility] Comment on above: Performed By: #### L [id number] ####State Epidemiologist: SONAM RAYMOND ([id number])[facility] ([facility])[address] BENZODIAZEPINE SCREEN Negative Normal [facility] Comment on above: Performed By: #### L [id number] ####State Epidemiologist: SONAM RAYMOND ([id number])[facility] ([facility])[address] COCAINE METAB. SCREEN Negative Normal [facility] Comment on above: Performed By: #### L [id number] ####State Epidemiologist: SONAM RAYMOND ([id number])[facility] [place] ([facility])[address] FENTANYL SCREEN, UR QUAL Negative Normal [facility] Comment on above: Result Comment: NEGRO R COMMENTS: The expected value for all of the drugs listed above is Negative. The following drugs or drug groups have been screened for by Immunoassay at the following thresholds: Amphetamine class (1000 ng/mL) Barbiturates (200 ng/mL) Benzodiazepines (200 ng/mL) Cocaine (300 ng/mL) Methadone (300 ng/mL) Opiates (300 ng/mL) Oxycodone (100 ng/mL) PCP (25 ng/mL) Fentanyl (1.0 ng/ml) NOTE: These results are for medical treatment only. Analysis performed using non-forensic procedures. POSITIVE results are NOT confirmed by a more specific alternative method unless requested. If confirmation is needed, request confirmation under separate order. Performed By: #### L [id number] ####State Epidemiologist: SONAM RAYMOND ([id number])[facility] [place] ([facility])[address] METHADONE SCREEN Negative Normal [facility] Comment on above: Performed By: #### L [id number] ####State Epidemiologist: SONAM RAYMOND ([id number])[facility] [place] ([facility])[address] OPIATES SCREEN Negative Normal [facility] Comment on above: Performed By: #### L [id number] ####State Epidemiologist: SONAM RAYMOND ([id number])[facility] [place] ([facility])[address] OXYCODONE SCREEN Negative Normal [facility] Comment on above: Performed By: #### L [id number] ####State Epidemiologist: SONAM RAYMOND ([id number])[facility] [place] ([facility])[address] PHENCYCLIDINE SCREEN Negative Normal [facility] Comment on above: Performed By: #### L [id number] ####State Epidemiologist: SONAM RAYMOND ([id number])[facility] ([facility])[address] [place] [address] ECG 12-LEADon 10-08-2025 ECG 12-LEAD IMPRESSION: Sinus rhythm Borderline left axis deviation Borderline T abnormalities, inferior leads Electronically Signed On 10-08-2025 22:01:12 EST by Yaron Alvarado [facility] ED Nursing Noteon 10-08-2025 ED Nursing Note Report called to Emerita vora RN at [facility]. Normal [facility] ED Nursing Note Patient becoming agitated; standing at door of room requesting to speak with physician. States that she does not need to be pink slipped, and that she is feeling better. States she has a safety plan in place. Patient became excessively more agitated after provider came to bedside to speak with her and began yelling and repeatedly hitting the 'nurse assistance' button. Provider notified and placed orders for IM haldol and versed. Protective services at bedside for medication administration, but were not needed. Patient was agreeable to being medicated. Normal [facility] ED Nursing Note Dr De La Paz from [facility] accepted the patient @ 2150, RN report to [phone] [facility] ED Nursing Note In Round Trip - [facility] accepted [facility] ED Nursing Note Chart faxed to [facility] Normal [facility] ED Nursing Note Took pt call light away due to her constantly pushing her call light. Normal [facility] ED Nursing Note Pt keeps turning ergonomist light for no reason, [facility] ED Nursing Note Pt complaining of anxiety and chest pain. Normal [facility] ED Provider Noteon ED Provider Note EMERGENCY DEPARTMENT ENCOUNTER Pt Name: Martita Ricketts Birthdate 2000 Date of evaluation: 10/08/2025 ED Provider: Yaron Alvarado MD CHIEF COMPLAINT Chief Complaint Patient presents with Mental Health Problem HISTORY OF PRESENT ILLNESS (Location/Symptom, Timing/Onset, Context/Setting, Quality, Duration, Modifying Factors, Severity) Note limiting factors. I wore appropriate PPE for the entirety of this encounter. HPI Martita Ricketts is a 25 y.o. who presents to the emergency department for mental health evaluation. Patient has history of bipolar disorder, schizophrenia. She is brought in by her due to his significant concerns about her safety at home. He states she has been extremely manic, hyperactive, has not slept. Has been rambling, nonsensical speech. Patient states that none of this is true and that if she is crazy it is only because she loves [place]. She states that if she has to go to [place] socks feel all she wants is purple socks. 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 Nursing Notes were reviewed. Limitations to history: None Outside historians: None REVIEW OF SYSTEMS Review of Systems Pertinent positives and negatives as per [facility] PAST MEDICAL HISTORY Medical History[1] SURGICAL HISTORY Surgical History[2] CURRENT MEDICATIONS Previous Medications ALBUTEROL 108 (90 BASE) MCG/ACT INHALER Inhale 2 puffs every 6 hours as needed for wheezing. CETIRIZINE (ZYRTEC) 10 MG TABLET LITHIUM 600 MG CAPSULE Take 600 mg by mouth 2 times daily. 600 mg in the morning and 600 mg in the evening LURASIDONE (LATUDA) 60 MG TABLET Take 80 mg by mouth. MULTIPLE VITAMINS-IRON (MULTIVITAMIN/IRON PO) Take 1 tablet by mouth daily. PROPRANOLOL (INDERAL) 20 MG TABLET 20 mg in the morning and 20 mg in the evening. TOPIRAMATE 50 MG TABLET Take 50 mg by mouth 1 (one) time each day. VITAMIN D PO Take 5,000 Int'l Units by mouth every 7 days. ALLERGIES Penicillin g, Victoza [liraglutide], and Pcn [penicillins] FAMILY HISTORY Family History[3] SOCIAL HISTORY Social History[4] PHYSICAL EXAM ED Triage Vitals [10/08/25 1750] Temp Heart Rate Resp BP 36.7 ?C (98 ?F) (!) 103 18 (!) 171/123 SpO2 Temp Source Heart Rate Source Patient Position 100 % Temporal Monitor -- BP Location FiO2 (%) -- -- Physical Exam Constitutional: Appearance: Normal appearance. Cardiovascular: Rate and Rhythm: Normal rate and regular rhythm. Pulses: Normal pulses. Heart sounds: Normal heart sounds. Pulmonary: Effort: Pulmonary effort is normal. Breath sounds: Normal breath sounds. Abdominal: General: Abdomen is flat. Palpations: Abdomen is soft. Tenderness: There is no abdominal tenderness. There is no guarding or rebound. Skin: General: Skin is warm and dry. Capillary Refill: Capillary refill takes less than 2 seconds. Neurological: General: No focal deficit present. Mental Status: She is alert. Psychiatric: Comments: Hyperactive, rambling speech, pressured speech, slightly agitated DIAGNOSTIC RESULTS RADIOLOGY (Per Emergency Physician): Interpretation per the Radiologist below, if available at the time of this note: XR chest 1 view Final Result 1. No acute pulmonary disease. Report Dictated on Electronically Signed By: Lisa Hernandez MD Electronically Signed Date/Time: 10/08/2025 8:03 PM EST LABS: Labs Reviewed CBC WITH AUTO DIFFERENTIAL - Abnormal Result Value Auto WBC 9.5 RBC 4.55 Hemoglobin 12.9 Hematocrit 38.9 MCV 85.5 MCH 28.4 MCHC 33.2 RDW 13.0 Platelets 460 (*) MPV 9.5 nRBC 0.0 Neutrophils Relative 74.0 Lymphocytes Relative 20.0 Monocytes Relative 4.8 (*) Eosinophils Relative 0.4 Basophils Relative 0.5 Immature Grans % 0.3 Neutrophils Absolute 7.0 Lymphocytes Absolute 1.9 Monocytes Absolute 0.5 Eosinophils Absolute 0.0 Basophils Absolute 0.1 Immature Grans Absolute 0.0 COMPREHENSIVE METABOLIC PANEL - Abnormal SODIUM 138 POTASSIUM 3.5 CHLORIDE 107 CARBON DIOXIDE 18 (*) ANION GAP 13 UREA NITROGEN 11 CREATININE 0.81 GLUCOSE 108 (*) CALCIUM 9.2 AST (SGOT) 19 ALT 26 ALKALINE PHOSPHATASE 73 ALBUMIN 4.7 (*) BILIRUBIN, TOTAL 0.5 TOTAL PROTEIN 7.8 eGFR >90.0 ACETAMINOPHEN LEVEL - Abnormal ACETAMINOPHEN <5.0 (*) Narrative: Acetaminophen concentrations greater than 150 ug/mL at 4 hours after ingestion and greater than 40 ug/mL at 12 hours after ingestion are often associated with toxicity. SALICYLATE - Abnormal SALICYLATES <5.0 (*) COMPLETE URINALYSIS WITH REFLEX TO CULTURE - Abnormal Color, Urine Yellow Clarity, Urine Clear pH, Urine 6.0 Leukocytes, Urine Negative Nitrite, Urine Negative Protein, Urine 30 (*) Glucose, Urine Normal Bilirubin, Urine Negative Ketones, Urine 10 (*) Urobilinogen, Urine 2 (*) Blood, Urine 0.03 (*) RBC, Urine 3-5 (*) WBC, Urine 0-2 Squamous Epithe (more content not included)... Normal [facility] ETHANOLon 10-08-2025 ETHANOL IN SER/PLAS- VASQUEZ <10 Normal <10 [facility] Comment on above: Result Comment: ORDE R COMMENTS: RN COMPLEX CARE depression is seen >100 mg/dL. NOTE: This result is for medical treatment only. Analysis performed using non-forensic procedures. Performed By: #### L AB17, LAB46, LAB34, LAB43 ####State Epidemiologist: SONAM RAYMOND ([id number])[facility] ([facility])[address] Ethanol (Bld) [Mass/Vol]on 12-08-2024 Ethanol [Mass/Vol] mg/dL NINF - 10 mg/dL [facility] Interpretation and review of laboratory results Normal [facility] RN COMPLEX CARE depression is se en >100 mg/dL. NOTE: This result is for medical treatment only. Analysis performed using non-forensic procedures. [facility] HCG QUALITATIVE URINEon Beta HCG ( test) Ql (U) Negative Normal Negative [facility] Comment on above: Result Comment: Plea se note: Very dilute urine specimens, as indicated by a low specific gravity, may not contain route sales representative levels of hCG. If is still suspected, a first morning urine specimen should be collected 48 hours later and tested. ORDER COMMENTS: is the most common reason for HCG in urine, although choriocarcinoma, hydatidiform mole, and certain nontrophoblastic malignancies also result in detectable urinary HCG levels. Sensitivity = 20mIU/mL. Performed By: #### L [id number] ####State Epidemiologist: SONAM RAYMOND ([id number])[facility] ([facility])[address] HIGH SENSITIVITY TROPONIN, S ERIAL BASELINEon 10-08-2025 TROPONIN HS SERIAL BASELINE 3 ng/L Normal <=14 [facility] Comment on above: Result Comment: In i ndividuals presenting with symptoms > 2h, a baseline troponin <= 5 ng/L suggests acute cardiac injury is unlikely and further serial testing is generally not indicated. Performed By: #### L [id number] ####State Epidemiologist: SONAM RAYMOND ([id number])[facility] (SB[facility]AB)[address] [place] [address] Laboratory - Chemistry and C hemistry - challengeon 10-08-2025 Beta HCG ( test) Ql Negative Negative [facility] Comment on above: Please note: Very di lute urine specimens, as indicated by a low specific gravity, may not contain route sales representative levels of hCG. If is still suspected, a first morning urine specimen should be collected 48 hours later and tested. Beta HCG ( test) Ql (U) is the most common reason for HCG in urine, although choriocarcinoma, hydatidiform mole, and certain nontrophoblastic malignancies also result in detectable urinary HCG levels. Sensitivity = 20mIU/mL. [facility] Laboratory - Drug toxicology on 10-08-2025 Amphetamines Screen method >1000 ng/mL Ql (U) Negative [facility] Barbiturates Screen method >200 ng/mL [facility]) [facility] Benzod[facility]ines Ql (U) Negative [facility] Methadone Screen Ql (U) Negative [facility] Opiates Screen Ql (U) Negative [facility] oxyCODONE Ql (U) Negative [facility] alth Phencyclidine Ql (U) Negative [facility] Acetaminophen [Mass/Vol] ug/mL Low 10. 0 - 30.0 ug/mL [facility] Salicylates [Mass/Vol] mg/dL Low 15.0 - 30.0 mg/dL [facility] Laboratory - Microbiology an d Antimicrobial susceptibilityOrdered By: Fidencio James on 10-08-2025 SARS-CoV-2 (COVID-19) Ag IA.rapid Ql (Resp) Negative Negative [facility] Comment on above: A negative result do es not rule out the possibility of SARS-CoV-2 infection. NAAT-based methods should be considered for symptomatic patients presenting greater than seven days after onset of symptoms. Method: Lateral flow immunoassay. Fact sheets for healthcare providers and patients can be found at the following sites: https://www.fda.gov/media/892229/download https://www.fda.gov/media/957354/download No Panel Informationon 10-08 P [place] 15 degrees [facility] AK Interval 123 ms [facility] QRS [place] -21 degrees [facility] QRSD Interval 81 ms [facility] Interval 366 ms [facility] QTC Interval 446 ms [facility] T Wave [place] -3 degrees [facility] Sinus rhythm Borderline left axis deviation Borderline T abnormalities, inferior leads Electronically Signed On 10-08-2025 22:01:12 EST by Yaron Alvarado CV Yaron Nathan MD - 10/08/2025 IMPRESSION: Sinus rhythm Borderline left axis deviation Borderline T abnormalities, inferior leads Electronically Signed On 10-08-2025 22:01:12 EST by Yaron Alvarado [facility] Interpretation and review of laboratory results Normal [facility] Troponin HS Serial Baseline 3 ng/L NINF - 14 ng/L [facility] Comment on above: In individuals prese nting with symptoms > 2h, a baseline troponin <= 5 ng/L suggests acute cardiac injury is unlikely and further serial testing is generally not indicated. [facility] COCAINE METAB. SCREEN Negative [facility] FENTANYL SCREEN, UR QUAL Negative [facility] The expected value f or all of the drugs listed above is Negative. The following drugs or drug groups have been screened for by Immunoassay at the following thresholds: Amphetamine class (1000 ng/mL) Barbiturates (200 ng/mL) Benzodiazepines (200 ng/mL) Cocaine (300 ng/mL) Methadone (300 ng/mL) Opiates (300 ng/mL) Oxycodone (100 ng/mL) PCP (25 ng/mL) Fentanyl (1.0 ng/ml) NOTE: These results are for medical treatment only. Analysis performed using non-forensic procedures. POSITIVE results are NOT confirmed by a more specific alternative method unless requested. If confirmation is needed, request confirmation under separate order. [facility] Interpretation and review of laboratory results Abnormal [facility] SALICYLATEon 10-08-2025 SALICYLATES <5.0 Low 15.0-30.0 [facility] Comment on above: Performed By: #### L AB17, LAB46, LAB34, LAB43 ####State Epidemiologist: SONAM RAYMOND ([id number])[facility] ([facility])[address] [place] [address] SARS-COV-2 ANTIGENon 025 SARS-COV-2 ANTIGEN SARS-COV-2 ANTIGEN -BINAX Reference Negative Negative A negative result does not rule out the possibility of SARS-CoV-2 infection. NAAT-based methods should be considered for symptomatic patients presenting greater than seven days after onset of symptoms. Method: Lateral flow immunoassay. Fact sheets for healthcare providers and patients can be found at the following sites: https://www.essentia health.gov/pr jones/857146/download https://www.essentia health.gov/pr jones/650110/download Normal [facility] Comment on above: Performed By: #### L [id number] #### State Epidemiologist: SONAM RAYMOND ([id number]) [facility] ([facility]) [address] [place] [address] SARS-CoV-2 (COVID-19) Ag IA. rapid Ql (Resp)Ordered By: Fidencio James on 10-08-2025 Interpretation and review of laboratory results Normal [facility] Urinalysis complete panel (U )on 10-08-2025 Bacteria LM.HPF (Urine sed) [#/Area] Negative Negative /HPF [facility] Bilirubin Ql (U) Negative Negative mg/dL [facility] Clarity (U) Clear Clear [facility] Color (U) Yellow Lt. Yellow [facility] Epithelial cells.squamous LM.HPF (Urine sed) [#/Area] 6-10 Abnormal [facility] h Glucose Ql (U) Normal Normal (<70) mg/dL [facility] Hemoglobin Ql (U) 0.03 mg/dL Abnormal Negative [facility] ealth Interpretation and review of laboratory results Abnormal [facility] Ketones (U) [Mass/Vol] 10 mg/dL Abnormal Negative [facility] Leukocyte esterase Test strip Ql (U) Negative Negative Regis/uL [facility] Mucus LM.HPF (Urine sed) [#/Area] Moderate Abnormal Negative /LPF [facility] Nitrite Ql (U) Negative Negative [facility] th pH (U) 6.0 [pH] 5.0 - 8.0 pH [facility] Protein (U) [Mass/Vol] 30 mg/dL Abnormal Negative [facility] RBC LM.HPF (Urine sed) [#/Area] 3-5 Abnormal [facility] Specific gravity (U) [Rel density] 1.041 High 1.005 - 1.030 [facility] Urobilinogen (U) [Mass/Vol] 2 mg/dL Abnormal Normal (0-1) [facility] WBC LM.HPF (Urine sed) [#/Area] 0-2 [facility] A specimen with <=10 WBC is not consistent with inflammation. This specimen will not reflex to a urine culture. [facility] Vital signson 10-08-2025 Heart rate 89 /min bpm [facility] XR Chest Single viewon 10-08 1. No acute pulmonary disease. Report Dictated on Electronically Signed By: Lisa Hernandez MD Electronically Signed Date/Time: 10/08/2025 8:03 PM EST [facility] Patient Name: MARTITA RICKETTS : 2000 Exam Date/Time: 10/08/2025 19:57 Procedure: XR CHEST 1 VIEW Ordering Provider: ALVARADO ANDREW Reason For Exam: CHEST PAIN CHEST SINGLE VIEW CLINICAL INFORMATION: Chest pain A frontal view of the chest was obtained. No acute pulmonary disease is noted. The cardiovascular silhouette is within normal limits. [facility] Lisa Hernandez MD - 10/08/2025 Patient Name: MARTITA RICKETTS : 2000 Exam Date/Time: 10/08/2025 19:57 Procedure: XR CHEST 1 VIEW Ordering Provider: ALVARADO ANDREW Reason For Exam: CHEST PAIN CHEST SINGLE VIEW CLINICAL INFORMATION: Chest pain A frontal view of the chest was obtained. No acute pulmonary disease is noted. The cardiovascular silhouette is within normal limits. IMPRESSION: 1. No acute pulmonary disease. Report Dictated on Electronically Signed By: Lisa Hernandez MD Electronically Signed Date/Time: 10/08/2025 8:03 PM EST [facility] Radiology Study observation (narrative) [facility] XR Chest Single viewOrdered By: Lisa Hernandez on 10-08-2025 [facility] Work Phone: ED NOTEon 10-07-2025 ED NOTE HNO ID: [id number] Author: IRMA BANGURA, DEZ Service: Emergency Medicine Author Type: Registered Nurse Type: ED Notes Filed: 10/07/2025 01:43 Note Text: Patient wishes to sign out AMA- patient is alert and oriented. Patient states she is tired of waiting in the bed and she feels she just keeps getting weaker. Spouse at bedside. AMA form signed and IV removed. Normal [facility] ED NOTE HNO ID: [id number] Author: ?, ?, ? Service: Emergency Medicine Author Type: ? Type: ED Notes Filed: 10/07/2025 00:12 Note Text: Patient assisted to the restroom with nurse and spouse. Patient used a wheelchair to go to the restroom and was able to self-ambulate back to the bed. Patient is now back in bed with call light within reach and both side rails up. Normal [facility] Basic metabolic 2000 panelon 10-06-2025 Anion gap [Moles/Vol] 17 mmol/L High 8-15 [facility] Comment on above: Order Comment: Speci men Type: VENOUS BLOOD SPECIMEN Ordering Facility: [facility] Address: [address] [place] [address] Performed By: #### 2 4344-4 #### [facility] CLIA [id number] [address] [place] [address] [place] Calcium [Mass/Vol] 9.7 mg/dL Normal 8.5-10.2 [facility] Comment on above: Order Comment: Speci men Type: VENOUS BLOOD SPECIMEN Ordering Facility: [facility] Address: [address] [place] [address] Performed By: #### 2 4344-4 #### [facility] CLIA [id number] [address] [place] [address] [place] Chloride [Moles/Vol] 102 mmol/L Normal 98-107 [facility] Comment on above: Order Comment: Speci men Type: VENOUS BLOOD SPECIMEN Ordering Facility: [facility] Address: [address] [place] [address] Performed By: #### 2 4344-4 #### [facility] [place] [facility] CLIA [id number] [address] [place] [address] [place] CO2 [Moles/Vol] 18 mmol/L Low 22-30 [facility] Comment on above: Order Comment: Speci men Type: VENOUS BLOOD SPECIMEN Ordering Facility: [facility] Address: [address] [place] [address] Performed By: #### 2 4344-4 #### [facility] [place] [facility] CLIA [id number] [address] [place] [address] [place] Creatinine [Mass/Vol] 0.74 mg/dL Normal 0.58-0.96 [facility] Comment on above: Order Comment: Speci men Type: VENOUS BLOOD SPECIMEN Ordering Facility: [facility] Address: [address] [place] [address] Performed By: #### 2 4344-4 #### [facility] [place] [facility] CLIA [id number] [address] [place], [place] [id number] [place] eGFRcr SerPlBld CKD-EPI 2020 116 mL/min/1.73m??? Normal >=60 [facility] Comment on above: Order Comment: Speci men Type: VENOUS BLOOD SPECIMEN Ordering Facility: [facility] Address: [address] [place] [address] Result Comment: Lillian mated Glomerular Filtration Rate [...] reflect actual GFR. Performed By: #### 2 4344-4 #### [facility] [place] [facility] CLIA [id number] [address] [place] [address] [place] Potassium [Moles/Vol] 3.7 mmol/L Normal 3.7-5.1 [facility] Comment on above: Order Comment: Speci men Type: VENOUS BLOOD SPECIMEN Ordering Facility: [facility] Address: [address] [place] [address] Performed By: #### 2 4344-4 #### [facility] [place] [facility] CLIA [id number] [address] [place] [address] [place] Sodium [Moles/Vol] 137 mmol/L Normal 136-144 [facility] Comment on above: Order Comment: Speci men Type: VENOUS BLOOD SPECIMEN Ordering Facility: [facility] Address: [address] [place] [address] Performed By: #### 2 4344-4 #### [facility] [place] [facility] CLIA [id number] [address] [place] Urea nitrogen [Mass/Vol] 9 mg/dL Normal 7-21 [facility] Comment on above: Order Comment: Speci men Type: VENOUS BLOOD SPECIMEN Ordering Facility: [facility] Address: [address] [place] [address] Performed By: #### 2 4344-4 #### [facility] [place] [facility] CLIA [id number] [address] [place] CBC W Auto Differential pane l (Bld)on 10-06-2025 Basophils (Bld) [#/Vol] 0.03 10*3/uL Normal <0.11 [facility] Comment on above: Order Comment: Speci men Type: BLOOD SPECIMEN Ordering Facility: [facility] Address: [address] [place] [address] Performed By: #### 5 7021-8 #### [facility] [place] [facility] CLIA [id number] [address] [place] Basophils/100 WBC (Bld) 0.4 % Normal [facility] Comment on above: Order Comment: Speci men Type: BLOOD SPECIMEN Ordering Facility: [facility] Address: [address] [place] [address] Performed By: #### 5 7021-8 #### [facility] [place] [facility] CLIA [id number] [address] [place] Differential cell count method Nom (Bld) Auto Normal [facility] Comment on above: Order Comment: Speci men Type: BLOOD SPECIMEN Ordering Facility: [facility] Address: [address] [place] [address] Performed By: #### 5 7021-8 #### [facility] [place] [facility] CLIA [id number] [address] [place] [address] [place] Eosinophils (Bld) [#/Vol] 0.07 10*3/uL Normal <0.46 [facility] Comment on above: Order Comment: Speci men Type: BLOOD SPECIMEN Ordering Facility: [facility] Address: [address] [place] [address] Performed By: #### 5 7021-8 #### [facility] [place] [facility] CLIA [id number] [address] Eosinophils/100 WBC (Bld) 1.0 % Normal [facility] Comment on above: Order Comment: Speci men Type: BLOOD SPECIMEN Ordering Facility: [facility] Address: [address] [place] [address] Performed By: #### 5 7021-8 #### [facility] [place] [facility] CLIA [id number] [address] [place] [address] [facility] [place] Erythrocyte distribution width (RBC) [Ratio] 13.4 % Normal 11.5-15.0 [facility] Comment on above: Order Comment: Speci men Type: BLOOD SPECIMEN Ordering Facility: [facility] Address: [address] [place] [address] Performed By: #### 5 7021-8 #### [facility] [place] [facility] CLIA [id number] [address] [place] [address] [facility] [place] Hematocrit (Bld) [Volume fraction] 44.5 % Normal 36.0-46.0 [facility] Comment on above: Order Comment: Speci men Type: BLOOD SPECIMEN Ordering Facility: [facility] Address: [address] [place] [address] Performed By: #### 5 7021-8 #### [facility] [place] [facility] CLIA [id number] [address] [place] [address] [place] Hemoglobin (Bld) [Mass/Vol] 14.3 g/dL Normal 11.5-15.5 [facility] Comment on above: Order Comment: Speci men Type: BLOOD SPECIMEN Ordering Facility: [facility] Address: [address] [place] [address] Performed By: #### 5 7021-8 #### [facility] [place] [facility] CLIA [id number] [address] [place] [address] [place] Immature granulocytes (Bld) [#/Vol] 10*3/uL Normal <0.10 [facility] Comment on above: Order Comment: Speci men Type: BLOOD SPECIMEN Ordering Facility: [facility] Address: [address] [place] [address] Performed By: #### 5 7021-8 #### [facility] [place] [facility] CLIA [id number] [address] [place] [address] [place] Immature granulocytes/100 WBC (Bld) 0.1 % Normal [facility] Comment on above: Order Comment: Speci men Type: BLOOD SPECIMEN Ordering Facility: [facility] Address: [address] [place] [address] Performed By: #### 5 7021-8 #### [facility] [place] [facility] CLIA [id number] [address] [place] [address] [place] Lymphocytes (Bld) [#/Vol] 1.82 10*3/uL Normal 1.00-4.00 [facility] Comment on above: Order Comment: Speci men Type: BLOOD SPECIMEN Ordering Facility: [facility] Address: [address] [place] [address] Performed By: #### 5 7021-8 #### [facility] [place] [facility] CLIA [id number] [address] [place] [address] [place] Lymphocytes/100 WBC (Bld) 26.6 % Normal [facility] Comment on above: Order Comment: Speci men Type: BLOOD SPECIMEN Ordering Facility: [facility] Address: [address] [place] [address] Performed By: #### 5 7021-8 #### [facility] [place] [facility] CLIA [id number] [address] MCH (RBC) [Entitic mass] 28.4 pg Normal 26.0-34.0 [facility] Comment on above: Order Comment: Speci men Type: BLOOD SPECIMEN Ordering Facility: [facility] Address: [address] [place] [address] Performed By: #### 5 7021-8 #### [facility] [place] [facility] CLIA [id number] [address] MCHC (RBC) [Mass/Vol] 32.1 g/dL Normal 30.5-36.0 [facility] Comment on above: Order Comment: Speci men Type: BLOOD SPECIMEN Ordering Facility: [facility] Address: [address] [place] [address] Performed By: #### 5 7021-8 #### [facility] [place] [facility] CLIA [id number] [address] [place] [address] [place] [facility] MCV (RBC) [Entitic vol] 88.5 fL Normal 80.0-100.0 [facility] Comment on above: Order Comment: Speci men Type: BLOOD SPECIMEN Ordering Facility: [facility] Address: [address] [place] [address] Performed By: #### 5 7021-8 #### [facility] [place] [facility] CLIA [id number] [address] [place] [address] Monocytes (Bld) [#/Vol] 0.29 10*3/uL Normal <0.87 [facility] Comment on above: Order Comment: Speci men Type: BLOOD SPECIMEN Ordering Facility: [facility] Address: [address] [place] [address] Performed By: #### 5 7021-8 #### [facility] [place] [facility] CLIA [id number] [address] [place] [address] [place] Monocytes/100 WBC (Bld) 4.2 % Normal [facility] Comment on above: Order Comment: Speci men Type: BLOOD SPECIMEN Ordering Facility: [facility] Address: [address] [place] [id number] Performed By: #### 5 7021-8 #### [facility] [place] [facility] CLIA [id number] [address] [place] [address] [place] Neutrophils (Bld) [#/Vol] 4.62 10*3/uL Normal 1.45-7.50 [facility] Comment on above: Order Comment: Speci men Type: BLOOD SPECIMEN Ordering Facility: [facility] Address: [address] [place] [address] Performed By: #### 5 7021-8 #### [facility] [place] [facility] CLIA [id number] [address] [place] [address] [place] Neutrophils/100 WBC (Bld) 67.7 % Normal [facility] Comment on above: Order Comment: Speci men Type: BLOOD SPECIMEN Ordering Facility: [facility] Address: [address] [place] [address] Performed By: #### 5 7021-8 #### [facility] [place] [facility] CLIA [id number] [address] [place] [address] [place] Nucleated RBC (Bld) [#/Vol] Normal [facility] Comment on above: Order Comment: Speci men Type: BLOOD SPECIMEN Ordering Facility: [facility] Address: [address] [place] [address] Performed By: #### 5 7021-8 #### [facility] [place] [facility] CLIA [id number] [address] [place] [address] [place] Nucleated RBC/100 WBC (Bld) [Ratio] Normal [facility] Comment on above: Order Comment: Speci men Type: BLOOD SPECIMEN Ordering Facility: [facility] Address: [address] [place], [place] [address] Performed By: #### 5 7021-8 #### [facility] [place] [facility] CLIA [id number] [address] [place] [address] [place] [facility] Platelet mean volume (Bld) [Entitic vol] 9.5 fL Normal 9.0-12.7 [facility] Comment on above: Order Comment: Speci men Type: BLOOD SPECIMEN Ordering Facility: [facility] Address: [address] [place] [address] Performed By: #### 5 7021-8 #### [facility] [place] [facility] CLIA [id number] [address] [place] [address] [place] Platelets (Bld) [#/Vol] 425 10*3/uL High 150-400 [facility] Comment on above: Order Comment: Speci men Type: BLOOD SPECIMEN Ordering Facility: [facility] Address: [address] [place] [address] Performed By: #### 5 7021-8 #### [facility] CLIA [id number] [address] RBC (Bld) [#/Vol] 5.03 10*6/uL Normal 3.90-5.20 [facility] Comment on above: Order Comment: Speci men Type: BLOOD SPECIMEN Ordering Facility: [facility] Address: [address] [place] [address] Performed By: #### 5 7021-8 #### [facility] CLIA [id number] [address] [place] [address] [place] WBC (Bld) [#/Vol] 6.84 10*3/uL Normal 3.70-11.00 [facility] Comment on above: Order Comment: Speci men Type: BLOOD SPECIMEN Ordering Facility: [facility] Address: [address] [place] [address] Performed By: #### 5 7021-8 #### [facility] CLIA [id number] [address] [place] [address] [facility] CTA CHEST (NON GATED) W IVCO N PEon 10-06-2025 CTA CHEST (NON GATED) W IVCON PE * * *Final Report* * * DATE OF EXAM: Oct 06 2025 11:24PM [facility] 0564 - CTA CHEST (NON GATED) W NATALIA PE / PROCEDURE REASON: persistent shortness of breath, chest pain and syncope * * * * Physician Interpretation * * * * EXAMINATION: CHEST CTA (NON GATED) WITH CONTRAST (PULMONARY EMBOLISM PROTOCOL) Clinical History: Persistent shortness of breath. Chest pain and syncope. Technique: Spiral CT acquisition of the chest from the thoracic inlet to the upper abdomen following IV contrast. Axial 1 and 3 mm thick slices plus coronal and sagittal reformatted images. MQ: CTCP_5 Contrast: 75 mL Omnipaque [address] Radiation dose: Integrated Dose-length product (DLP) for this visit = 484.31 mGy*cm CT Dose Reduction Employed: Automated exposure control(AEC) and iterative recon CTA: Post-processed images (Maximum intensity Projection (MIP), Volume-rendered (VR), or Surface shaded display images (SSD) were created, reviewed and archived. Comparison: No relevant prior studies available. RESULT: Limitations: Evaluation for pulmonary embolism partially limited by poor contrast but patient of the pulmonary arteries. Evaluation for thromboembolic disease: - Right heart chambers: No thromboembolic disease. - Main pulmonary arteries: No thromboembolic disease. - Lobar pulmonary arteries: No thromboembolic disease. - Segmental pulmonary arteries: No thromboembolic disease. - Subsegmental pulmonary arteries: No thromboembolic disease. - Additional pulmonary artery findings: The main pulmonary artery is normal in caliber. Lines, tubes, and devices: None. Lung parenchyma and airways: No consolidation. No suspicious pulmonary nodule. The central airways are patent. Pleural space: No pleural effusion. No pleural thickening. Lower neck, lymph nodes, and mediastinum: The imaged thyroid gland is normal. No lymphadenopathy in the supraclavicular, axillary, mediastinal, or hilar regions. Heart, pericardium, and thoracic vessels: The thoracic aorta is normal in caliber. The cardiac chambers are normal in size. No coronary artery atherosclerotic calcifications are noted, although the study is not optimized for coronary assessment. No pericardial effusion or thickening. Bones and soft tissues: No acute fracture or osseous lesions are identified. Upper abdomen: No abnormality in the imaged upper abdomen. Localizer images: No additional findings. IMPRESSION: No CT evidence of pulmonary embolism. Fire Captain: KHALIDA Transcribe Date/Time: Oct 07 2025 1:34A Dictated by : GUNNAR DINERO MD This examination was interpreted and the report reviewed and electronically signed by: GUNNAR DINERO MD on Oct 07 2025 1:39AM EST [id number] Normal [facility] D dimer FEU PPP-mCncon 10-06 Fibrin D-dimer FEU (PPP) [Mass/Vol] 270 ng/mL FEU Normal <500 [facility] Comment on above: Order Comment: Speci men Type: VENOUS BLOOD SPECIMEN Ordering Facility: [facility] Address: [address] [place] [address] Performed By: #### 2 4344-4 #### [facility] CLIA [id number] [address] [place], [place] [id number] [facility] [id number] 10-06-2025 ECG01 Ventricular Rate : 9 0 BPM Atrial Rate : 90 BPM P-R Interval : 138 ms QRS Duration : 82 ms Q-T Interval : 352 ms QTC Calculation(Bazett) : 430 ms Calculated P [place] : 44 degrees Calculated R [place] : -17 degrees Calculated T [place] : 5 degrees SINUS RHYTHM WITH MARKED SINUS ARRHYTHMIA MINIMAL VOLTAGE CRITERIA FOR LVH, MAY BE NORMAL VARIANT ( R in aVL ) BORDERLINE ECG NO PREVIOUS ECGS AVAILABLE Confirmed by DO BOBO JESSICA ([id number]) on 10/06/2025 9:57:25 PM NAME : MARTITA RICKETTS PID : [id number] : 2000 Gender : Female Race : ORD : Procedure Date : Oct 06 2025 21:42:33 Edit Date : Oct 06 2025 21:57:27 Diagnosis: SINUS RHYTHM WITH MARKED SINUS ARRHYTHMIA MINIMAL VOLTAGE CRITERIA FOR LVH, MAY BE NORMAL VARIANT ( R in aVL ) BORDERLINE ECG NO PREVIOUS ECGS AVAILABLE Confirmed by DO BOBO JESSICA ([id number]) on 10/06/2025 9:57:25 PM Test Reason : Location : 150 : [facility] Overread By : DO BOBO JESSICA Edited By : DO BOBO JESSICA Referred By : , Acquired by : RADHA PHILLIPS Normal [facility] ED NOTEon 10-06-2025 ED NOTE HNO ID: [id number] Author: IRMA BANGURA, DEZ Service: Emergency Medicine Author Type: Registered Nurse Type: ED Notes Filed: 10/06/2025 23:35 Note Text: Patient dimmed lights for c/o headache. Patient states she doesn't feel any better and feels the same as when she first came in. Reassurance given that EKG is NSR and lab work so far looks good. VSS. MD notified Normal [facility] ED NOTE HNO ID: [id number] Author: TAYLOR MOSQUERA, DEZ Service: ? Author Type: Registered Nurse Type: ED Notes Filed: 10/06/2025 21:49 Note Text: Pt comes to ED c/o chest pain, Shortness of Breath, weakness to BLE, impending doom, altered mental status and multiple syncopal episodes yesterday and one today. Pt is AANDOx3 currently. Pt tearful stating this is not anxiety. I don't know why I'm feeling like this. I want it to go away. I want to live my life and go home to my kids. Pt vss. Will continue to monitor. Normal [facility] ED PROV NOTEon 10-06-2025 ED PROV NOTE HNO ID: [id number] Author: MAGDA BOBO DO Service: Emergency Medicine Author Type: Physician Type: ED Provider Notes Filed: 10/07/2025 03:38 Note Text: ED Provider Note Patient Name: Martita Ricketts : 2000 SERVICE DATE: 10/06/25 History Patient presents with: Chest Pain Shortness of Breath Weakness Martita Ricketts is a 25 year old female who presents with Chest Pain, Shortness of Breath. - Symptoms began 2 days prior to arrival. - Severity: moderate - Timing: constant - Quality: heaviness - Symptoms are associated with cough, feeling generally weak, dark stools, syncope - Symptoms are not associated with abdominal pain, fever, rash, vomiting, hemoptysis. Patient presents with chest pain shortness of breath for 2 days. She states that she feels generally weak. She states she has had a cough. No hemoptysis. She states she has passed out multiple times since yesterday. She states occasionally she feels that she is having a racing heart. She states that she has no abdominal pain. No vomiting. She does note she has had some dark stools, she does take iron, but states that her stool still per dark with her stopping the iron. She denies any history of blood clots or clotting disorder. PAST MEDICAL HISTORY Diagnosis Date Asthma (HCC) Concussion 10/12 seizure like activity, knocked out. [...] PAST SURGICAL HISTORY OF adnoidectomy FAMILY HISTORY Adopted: Yes Problem Relation Age of Onset other (aids) Mother biological mom Social History[1] ALLERGIES Allergen Reactions Ativan [Lorazepam] Other: See Comments Hallucinations Omnicef [Cefdinir] Other: See Comments Dizziness, feeling not right Penicillins Rash Prozac [Fluoxetine * Other: See Comments Tongue, face and throat swelling Seasonal Allergies Other: See Comments Sneezing,itchy eyes, cough, wheezing Review of Systems Constitutional: Positive for fatigue. Negative for chills and fever. Respiratory: Positive for cough and shortness of breath. Cardiovascular: Positive for chest pain and palpitations. Negative for leg swelling. Gastrointestinal: Negative for abdominal pain, nausea and vomiting. Genitourinary: Negative for flank pain. Musculoskeletal: Negative for neck stiffness. Skin: Negative for rash. Neurological: Positive for syncope and weakness (Feels generally weak and fatigued). Negative for numbness and headaches. Psychiatric/Behavioral : Negative for agitation. Physical Exam Vitals [10/06/25 2136] BP Pulse Temp Temp src Resp SpO2 Weight Height 151/106 (!) 96 36 ?C (96.8 ?F) Temporal 20 100 % 81.8 kg (180 lb 6.4 oz) -- Physical Exam Vitals and nursing note reviewed. Exam conducted with a inside sales account manager present. Constitutional: Appearance: She is not toxic-appearing or diaphoretic. HENT: Head: Normocephalic and atraumatic. Mouth/Throat: Mouth: Mucous membranes are moist. Eyes: General: No scleral icterus. Extraocular Movements: Extraocular movements intact. Pupils: Pupils are equal, round, and reactive to light. Cardiovascular: Rate and Rhythm: Normal rate and regular rhythm. Pulses: Normal pulses. Pulmonary: Effort: Pulmonary effort is normal. Breath sounds: Normal breath sounds. Abdominal: General: Abdomen is flat. Bowel sounds are normal. There is no distension. Palpations: Abdomen is soft. Tenderness: There is no abdominal tenderness. Musculoskeletal: Right lower leg: No edema. Left lower leg: No edema. Skin: General: Skin is warm and dry. Capillary Refill: Capillary refill takes less than 2 seconds. Findings: No rash. Neurological: General: No focal deficit present. Mental Status: She is alert and oriented to person, place, and time. GCS: GCS eye subscore is 4. GCS verbal subscore is 5. GCS motor subscore is 6. Cranial Nerves: Cranial nerves 2-12 are intact. Sensory: Sensation is intact. Motor: Motor function is intact. Psychiatric: Mood and Affect: Mood normal. Behavior: Behavior normal. Diagnostic Testing ED Labs Ordered and Reviewed BASIC METABOLIC PANEL - Abnormal; Notable for the following components: Result Value Ref Range Glucose 100 (*) 74 - 99 mg/dL CO2 18 (*) 22 - 30 mmol/L Anion Gap 17 (*) 8 - 15 mmol/L All other components within normal limits COMPLETE BLOOD COUNT AND DIFFERENTIAL - Abnormal; Notable for the following components: Platelet Count 425 (*) 150 - 400 k/uL All other components within (more content not included)... Normal [facility] Gas + CO Pnl BldVon 10-06-20 25 Glucose [Mass/Vol] 100 mg/dL High 74-99 [facility] Comment on above: Order Comment: Speci men Type: VENOUS BLOOD SPECIMEN Ordering Facility: [facility] Address: [address] [place] [address] Performed By: #### 2 4344-4 #### [facility] CLIA [id number] [address] [place] [address] [place] Result Comment: The [place] Diabetes Association (ADA) provides guidance for cutoff [...] Standards of Medical Care in Diabetes 2016, Canadian Diabetes Association. Diabetes Care. 2016.39(Suppl 1). Gas and Carbon monoxide pane l (BldV)on 10-06-2025 BASE DEFICIT, VENOUS -3 mmol/L Low -2-0 [facility] Comment on above: Order Comment: Flavio price Type: VENOUS BLOOD SPECIMEN Ordering Facility: [facility] Address: [address] [place] [address] Performed By: #### 2 4344-4 #### [facility] CLIA [id number] [address] [place] Body temperature 98.6 [degF] Normal [facility] Comment on above: Order Comment: Flavio price Type: VENOUS BLOOD SPECIMEN Ordering Facility: [facility] Address: [address] [place] [address] Performed By: #### 2 4344-4 #### [facility] CLIA [id number] [address] [place] [address] STATES OF [facility] Calcium.ionized (Bld) [Mass/Vol] 1.22 mmol/L Normal 1.08-1.30 [facility] Comment on above: Order Comment: Flavio price Type: VENOUS BLOOD SPECIMEN Ordering Facility: [facility] Address: [address] [place] [address] Performed By: #### 2 4344-4 #### [facility] CLIA [id number] [address] [place] [address] [place] Calcium.ionized adjusted to pH 7.4 (BldA) [Moles/Vol] 1.20 mmol/L Normal 1.08-1.30 [facility] Comment on above: Order Comment: Flavio price Type: VENOUS BLOOD SPECIMEN Ordering Facility: [facility] Address: [address] [place] [address] Performed By: #### 2 4344-4 #### [facility] CLIA [id number] [address] [place] [address] [place] Carboxyhemoglobin (BldV) [Mass fraction] 2.1 % High 0.0-2.0 [facility] Comment on above: Order Comment: Speci men Type: VENOUS BLOOD SPECIMEN Ordering Facility: [facility] Address: [address] [place] [address] Result Comment: Carb oxyhemoglobin Reference Range for Smokers: 2.0-8.0% Performed By: #### 2 4344-4 #### [facility] CLIA [id number] [address] [place] [id number] [place] Chloride [Moles/Vol] 107 mmol/L High 97-105 [facility] Comment on above: Order Comment: Speci men Type: VENOUS BLOOD SPECIMEN Ordering Facility: [facility] Address: [address] [place] [address] Performed By: #### 2 4344-4 #### [facility] CLIA [id number] [address] [place] [address] [place] CO2 (BldV) [Partial pressure] 39 mm[Hg] Low 42-55 [facility] Comment on above: Order Comment: Speci men Type: VENOUS BLOOD SPECIMEN Ordering Facility: [facility] Address: [address] [place] [address] Performed By: #### 2 4344-4 #### [facility] CLIA [id number] [address] [place] [address] [place] HCO3 (Bld) [Moles/Vol] 22 mmol/L Low 24-28 [facility] Comment on above: Order Comment: Speci men Type: VENOUS BLOOD SPECIMEN Ordering Facility: [facility] Address: [address] [place] [address] Performed By: #### 2 4344-4 #### [facility] CLIA [id number] [address] [place] [address] [place] Hematocrit (Bld) [Volume fraction] 45.6 % Normal 36.0-46.0 [facility] Comment on above: Order Comment: Speci men Type: VENOUS BLOOD SPECIMEN Ordering Facility: [facility] Address: [address] [place] [address] Performed By: #### 2 4344-4 #### [facility] CLIA [id number] [address] [place] [address] [place] Hemoglobin (Bld) [Mass/Vol] 14.9 g/dL Normal 11.5-15.5 [facility] Comment on above: Order Comment: Speci men Type: VENOUS BLOOD SPECIMEN Ordering Facility: [facility] Address: [address] [place] [address] Performed By: #### 2 4344-4 #### [facility] CLIA [id number] [address] [place] [address] [place] Lactate [Moles/Vol] 1.0 mmol/L Normal 0.5-2.2 [facility] Comment on above: Order Comment: Speci men Type: VENOUS BLOOD SPECIMEN Ordering Facility: [facility] Address: [address] [place] [address] Performed By: #### 2 4344-4 #### [facility] CLIA [id number] [address] [place] [address] [place] Methemoglobin (Bld) [Mass fraction] 1.2 % Normal 0.0-1.5 [facility] Comment on above: Order Comment: Speci men Type: VENOUS BLOOD SPECIMEN Ordering Facility: [facility] Address: [address] [place] [address] Performed By: #### 2 4344-4 #### [facility] CLIA [id number] [address] [place] [address] [place] Oxygen (BldV) [Partial pressure] 39 mm[Hg] Normal 35-45 [facility] Comment on above: Order Comment: Speci men Type: VENOUS BLOOD SPECIMEN Ordering Facility: [facility] Address: [address] [place] [address] Performed By: #### 2 4344-4 #### [facility] CLIA [id number] [address] [place] [address] [place] Oxygen saturation in Venous blood 74 % Normal 60-85 [facility] Comment on above: Order Comment: Speci men Type: VENOUS BLOOD SPECIMEN Ordering Facility: [facility] Address: [address] [place] [address] Performed By: #### 2 4344-4 #### [facility] CLIA [id number] [address] [place] [address] [place] Oxyhemoglobin (BldV) [Mass fraction] 71 % Normal 60-85 [facility] Comment on above: Order Comment: Speci men Type: VENOUS BLOOD SPECIMEN Ordering Facility: [facility] Address: [address] [place] [address] Performed By: #### 2 4344-4 #### [facility] CLIA [id number] [address] [place] [address] [place] pH (BldV) 7.36 [pH] Normal 7.32-7.42 [facility] Comment on above: Order Comment: Speci men Type: VENOUS BLOOD SPECIMEN Ordering Facility: [facility] Address: [address] [place] [address] Performed By: #### 2 4344-4 #### [facility] CLIA [id number] [address] [place] [address] [place] Potassium [Moles/Vol] 3.5 mmol/L Normal 3.5-5.0 [facility] Comment on above: Order Comment: Speci men Type: VENOUS BLOOD SPECIMEN Ordering Facility: [facility] Address: [address] [place] [address] Performed By: #### 2 4344-4 #### [facility] CLIA [id number] [address] [place] [address] [place] Sodium [Moles/Vol] 142 mmol/L Normal 136-144 [facility] Comment on above: Order Comment: Specjoellen men Type: VENOUS BLOOD SPECIMEN Ordering Facility: [facility] Address: [address] [place] [address] Performed By: #### 2 4344-4 #### [facility] CLIA [id number] [address] [place] [address] [place] HCG Preg Ur Qlon 10-06-2025 HCG ( test) Ql (U) Negative Normal Negative [facility] Comment on above: Order Comment: Ezequieli men Type: VENOUS BLOOD SPECIMEN Ordering Facility: [facility] Address: [address] [place] [address] Result Comment: This test is intended to aid in the early detection of . Very dilute urine samples, as indicated by a low specific gravity, may not contain route sales representative levels of hCG. This test detects intact hCG only. This test does not reliably detect hCG degradation products, including free-beta subunit and beta-core fragment. Therefore, this test may show reduced reactivity in urine after 8 weeks gestation. A number of conditions other than , including trophoblastic disease and certain non-trophoblastic neoplasms cause elevated levels of hCG. As with any assay employing mouse antibodies, the possibility exists for interference by human anti-mouse antibodies (HAMA) in the specimen. The test provides a presumptive diagnosis for . Performed By: #### 2 4344-4 #### [facility] CLIA [id number] [address] [place] [address] [place] HIGH SENSITIVITY TROPONIN T (INITIAL)on 10-06-2025 Troponin T.cardiac High sensitivity method [Mass/Vol] <6 Normal <12 [facility] Comment on above: Order Comment: Speci men Type: VENOUS BLOOD SPECIMEN Ordering Facility: [facility] Address: [address] [place] [address] Performed By: #### 2 4344-4 #### [facility] CLIA [id number] [address] [place] [address] [facility] [place] HIGH SENSITIVITY TROPONIN T (SECOND)on 10-06-2025 Troponin T.cardiac High sensitivity method [Mass/Vol] <6 Normal <12 [facility] Comment on above: Order Comment: Ezequieli men Type: VENOUS BLOOD SPECIMEN Ordering Facility: [facility] Address: [address] [place] [address] Performed By: #### 2 4344-4 #### [facility] CLIA [id number] [address] [place] [address] [facility] Hemoccult Stl Ql IAon 2024 Lower GI hemoglobin IA Ql (Stl) Negative Normal Negative [facility] Comment on above: Order Comment: Speci men Type: VENOUS BLOOD SPECIMEN Ordering Facility: [facility] Address: [address] [place] [address] Performed By: #### 2 4344-4 #### [facility] CLIA [id number] [address] [place] [id number] [facility] Urinalysis complete panel (U )on 10-06-2025 Bacteria LM.HPF (Urine sed) [#/Area] Few Abnormal None Seen [facility] Comment on above: Order Comment: Speci men Type: VENOUS BLOOD SPECIMEN Ordering Facility: [facility] Address: [address] [place] [address] Performed By: #### 2 4344-4 #### [facility] CLIA [id number] [address] [place] [id number] [facility] Bilirubin Ql (U) Negative Normal Negative [facility] Comment on above: Order Comment: Speci men Type: VENOUS BLOOD SPECIMEN Ordering Facility: [facility] Address: [address] [place] [address] Performed By: #### 2 4344-4 #### [facility] CLIA [id number] [address] [place] [address] [facility] Clarity (Unsp spec) Slightly Cloudy Abnormal Clear [facility] Comment on above: Order Comment: Speci men Type: VENOUS BLOOD SPECIMEN Ordering Facility: [facility] Address: [address] [place] [address] Performed By: #### 2 4344-4 #### [facility] CLIA [id number] [address] [place] [address] [place] Color (U) Yellow Normal Yellow [facility] Comment on above: Order Comment: Speci men Type: VENOUS BLOOD SPECIMEN Ordering Facility: [facility] Address: [address] [place] [address] Performed By: #### 2 4344-4 #### [facility] CLIA [id number] [address] [place] [address] [place] Epithelial cells LM.HPF (Urine sed) [#/Area] Moderate Normal [facility] Comment on above: Order Comment: Speci men Type: VENOUS BLOOD SPECIMEN Ordering Facility: [facility] Address: [address] [place] [address] Performed By: #### 2 4344-4 #### [facility] CLIA [id number] [address] [place] [address] [facility] Glucose Test strip (U) [Mass/Vol] Negative Normal Negative [facility] Comment on above: Order Comment: Speci men Type: VENOUS BLOOD SPECIMEN Ordering Facility: [facility] Address: [address] [place] [address] Performed By: #### 2 4344-4 #### [facility] CLIA [id number] [address] [place] [address] [place] Hemoglobin Ql (U) Trace Abnormal Negative [facility] Comment on above: Order Comment: Speci men Type: VENOUS BLOOD SPECIMEN Ordering Facility: [facility] Address: [address] [place] [address] Performed By: #### 2 4344-4 #### [facility] CLIA [id number] [address] [place] [address] [place] Ketones Ql (U) Negative Normal Negative [facility] Comment on above: Order Comment: Speci men Type: VENOUS BLOOD SPECIMEN Ordering Facility: [facility] Address: [address] [place] [address] Performed By: #### 2 4344-4 #### [facility] CLIA [id number] [address] [place] [address] [place] Leukocyte esterase Test strip Ql (U) Negative Normal Negative [facility] Comment on above: Order Comment: Speci men Type: VENOUS BLOOD SPECIMEN Ordering Facility: [facility] Address: [address] [place] [address] Performed By: #### 2 4344-4 #### [facility] CLIA [id number] [address] [place] [address] [facility] [place] Nitrite Ql (U) Negative Normal Negative [facility] Comment on above: Order Comment: Speci men Type: VENOUS BLOOD SPECIMEN Ordering Facility: [facility] Address: [address] [place] [address] Performed By: #### 2 4344-4 #### [facility] CLIA [id number] [address] [place] [id number] [place] pH (U) 6.0 [pH] Normal 5.0-8.0 [facility] Comment on above: Order Comment: Speci men Type: VENOUS BLOOD SPECIMEN Ordering Facility: [facility] Address: [address] [place] [address] Performed By: #### 2 4344-4 #### [facility] CLIA [id number] [address] Protein (U) [Mass/Vol] Negative Normal Negative [facility] Comment on above: Order Comment: Speci men Type: VENOUS BLOOD SPECIMEN Ordering Facility: [facility] Address: [address] [place] [address] Performed By: #### 2 4344-4 #### [facility] CLIA [id number] [address] [place] [address] [place] RBC LM.HPF (Urine sed) [#/Area] 0-3 /HPF Normal 0-3 /HPF [facility] Comment on above: Order Comment: Speci men Type: VENOUS BLOOD SPECIMEN Ordering Facility: [facility] Address: [address] [place] [address] Performed By: #### 2 4344-4 #### [facility] CLIA [id number] [address] Specific gravity (U) [Rel density] 1.020 Normal 1.005-1.030 [facility] Comment on above: Order Comment: Speci men Type: VENOUS BLOOD SPECIMEN Ordering Facility: [facility] Address: [address] [place] [address] Performed By: #### 2 4344-4 #### [facility] CLIA [id number] [address] Urobilinogen Ql (U) 0.2 EU/dL Normal 0.2-1.0 EU/dL [facility] Comment on above: Order Comment: Speci men Type: VENOUS BLOOD SPECIMEN Ordering Facility: [facility] Address: [address] [place] [address] Performed By: #### 2 4344-4 #### [facility] CLIA [id number] [address] [place] [address] WBC LM.HPF (Urine sed) [#/Area] 0-5 /HPF Normal 0-5 /HPF [facility] Comment on above: Order Comment: Speci men Type: VENOUS BLOOD SPECIMEN Ordering Facility: [facility] Address: [address] [place] [address] Performed By: #### 2 4344-4 #### [facility] CLIA [id number] [address] [place] [address] .Auto Diffon 10-05-2025 Basophil, Absolute 0.1 10 3/mcL Normal 0.0-0.3 [facility] Comment on above: Performed By: #### C BC, CMP, ADIFF, MG, MDW, GFR, ANEU, TROPHS #### [address] [address] Basophils/100 WBC (Bld) 0.8 % Normal 0.0-2.5 [facility] Comment on above: Performed By: #### C BC, CMP, ADIFF, MG, MDW, GFR, ANEU, TROPHS #### [address] [address] Eosinophil, Absolute 0.3 10 3/mcL Normal 0.0-0.7 [facility] Comment on above: Performed By: #### C BC, CMP, ADIFF, MG, MDW, GFR, ANEU, TROPHS #### [address] [address] Eosinophils/100 WBC (Bld) 4.2 % Normal 0.0-6.0 [facility] Comment on above: Performed By: #### C BC, CMP, ADIFF, MG, MDW, GFR, ANEU, TROPHS #### [address] [address] Lymphocyte, Absolute 2.1 10 3/mcL Normal 0.9-4.3 [facility] Comment on above: Performed By: #### C BC, CMP, ADIFF, MG, MDW, GFR, ANEU, TROPHS #### [address] [address] Lymphocytes/100 WBC (Bld) 29.4 % Normal 20.0-40.0 [facility] Comment on above: Performed By: #### C BC, CMP, ADIFF, MG, MDW, GFR, ANEU, TROPHS #### [address] [address] Monocyte, Absolute 0.5 10 3/mcL Normal 0.1-1.4 [facility] Comment on above: Performed By: #### C BC, CMP, ADIFF, MG, MDW, GFR, ANEU, TROPHS #### [address] [address] Monocytes/100 WBC (Bld) 7.7 % Normal 2.0-13.0 [facility] Comment on above: Performed By: #### C BC, CMP, ADIFF, MG, MDW, GFR, ANEU, TROPHS #### [address] [address] Neutrophils/100 WBC (Bld) 57.9 % Normal 50.0-75.0 [facility] Comment on above: Performed By: #### C BC, CMP, ADIFF, MG, MDW, GFR, ANEU, TROPHS #### [address] [address] .GFRon 10-05-2025 Estimated Glomerular Filtration Rate 107 ml/min/1.73sqm Normal [facility] Comment on above: Result Comment: Stages of Chronic Kidney Disease (CKD) Stage Description eGFR(ml/min/1.73 sq.m.) CKD 1 Normal kidney function or >=90 normal kindney function with possible kidney damage (ex. Proteinuria) CKD 2 Kidney damage with mild loss 60-89 of kidney function CKD 3a Mild to moderate loss of kidney 45-59 function CKD 3b Moderate to severe loss of 30-44 of kindey function CKD 4 Severe loss of kidney function 15-29 CKD 5 Kidney failure <15 Note: (go live 2025) the eGFR calculation was updated to the 2020 CKD-EPI creatinine equation without a race factor to calculate the eGFR results. Performed By: #### C BC, CMP, ADIFF, MG, MDW, GFR, ANEU, TROPHS #### [address] [address] .MDWon 10-05-2025 Monocyte Distribution Width 20.53 High 0.00-20.00 [facility] Comment on above: Result Comment: For adults in ED, MDW>20.0 may be associated with a higher risk of sepsis during the first 12hrs of hospital admission Performed By: #### C BC, CMP, ADIFF, MG, MDW, GFR, ANEU, TROPHS #### [address] [address] .NEUABSon 10-05-2025 Neutrophil, Absolute 4.0 10 3/mcL Normal 2.3-8.1 [facility] Comment on above: Performed By: #### C BC, CMP, ADIFF, MG, MDW, GFR, ANEU, TROPHS #### [address] [address] CBCon 10-05-2025 Erythrocyte distribution width (RBC) [Ratio] 13.5 % Normal 11.5-15.5 [facility] Comment on above: Performed By: #### C BC, CMP, ADIFF, MG, MDW, GFR, ANEU, TROPHS #### [place] [address] Hematocrit (Bld) [Volume fraction] 40.1 % Normal 34.0-46.0 [facility] Comment on above: Performed By: #### C BC, CMP, ADIFF, MG, MDW, GFR, ANEU, TROPHS #### [place] [address] Hgb 13.4 G/dL Normal 12.0-16.0 [facility] Comment on above: Performed By: #### C BC, CMP, ADIFF, MG, MDW, GFR, ANEU, TROPHS #### [place] [address] MCH (RBC) [Entitic mass] 28.7 pg Normal 27.0-33.0 [facility] Comment on above: Performed By: #### C BC, CMP, ADIFF, MG, MDW, GFR, ANEU, TROPHS #### [place] [address] MCHC 33.3 G/dL Normal 32.0-36.0 [facility] Comment on above: Performed By: #### C BC, CMP, ADIFF, MG, MDW, GFR, ANEU, TROPHS #### [place] [address] MCV (RBC) [Entitic vol] 86.0 fL Normal 80.0-99.0 [facility] Comment on above: Performed By: #### C BC, CMP, ADIFF, MG, MDW, GFR, ANEU, TROPHS #### [place] [address] Platelet 383 10 3/mcL Normal 150-450 [facility] Comment on above: Performed By: #### C BC, CMP, ADIFF, MG, MDW, GFR, ANEU, TROPHS #### [place] [address] Platelet mean volume (Bld) [Entitic vol] 7.8 fL Normal 6.6-10.5 [facility] Comment on above: Performed By: #### C BC, CMP, ADIFF, MG, MDW, GFR, ANEU, TROPHS #### [address] [address] RBC 4.67 10 6/mcL Normal 4.10-5.30 [facility] Comment on above: Performed By: #### C BC, CMP, ADIFF, MG, MDW, GFR, ANEU, TROPHS #### [address] [address] WBC 7.0 10 3/mcL Normal 4.5-10.8 [facility] Comment on above: Performed By: #### C BC, CMP, ADIFF, MG, MDW, GFR, ANEU, TROPHS #### [address] [address] CMPon 10-05-2025 Albumin Level 4.0 G/dL Normal 3.5-5.0 [facility] Comment on above: Performed By: #### C BC, CMP, ADIFF, MG, MDW, GFR, ANEU, TROPHS #### [address] [address] Albumin/Globulin [Mass ratio] 1.1 {ratio} Normal 1.1-2.5 [facility] Comment on above: Performed By: #### C BC, CMP, ADIFF, MG, MDW, GFR, ANEU, TROPHS #### [address] [address] ALP [Catalytic activity/Vol] 94 U/L Normal 40-135 [facility] Comment on above: Performed By: #### C BC, CMP, ADIFF, MG, MDW, GFR, ANEU, TROPHS #### [address] [address] ALT [Catalytic activity/Vol] 49 U/L Normal 14-59 [facility] Comment on above: Performed By: #### C BC, CMP, ADIFF, MG, MDW, GFR, ANEU, TROPHS #### [address] [address] AST [Catalytic activity/Vol] 29 U/L Normal 10-40 [facility] Comment on above: Performed By: #### C BC, CMP, ADIFF, MG, MDW, GFR, ANEU, TROPHS #### [address] [address] Bili Total 0.2 mg/dL Normal 0.2-1.0 [facility] Comment on above: Result Comment: Use of this assay is not recommended for patients undergoing treatment with eltrombopag due to the potential for falsely elevated results. Performed By: #### C BC, CMP, ADIFF, MG, MDW, GFR, ANEU, TROPHS #### [address] [address] BUN/Creatinine Ratio 14 ratio Normal 7-27 [facility] Comment on above: Performed By: #### C BC, CMP, ADIFF, MG, MDW, GFR, ANEU, TROPHS #### [address] [address] Calcium [Mass/Vol] 9.0 mg/dL Normal 8.4-10.2 [facility] Comment on above: Performed By: #### C BC, CMP, ADIFF, MG, MDW, GFR, ANEU, TROPHS #### [address] [address] Chloride [Moles/Vol] 109 mmol/L High 98-107 [facility] Comment on above: Performed By: #### C BC, CMP, ADIFF, MG, MDW, GFR, ANEU, TROPHS #### [address] [address] CO2 [Moles/Vol] 26 mmol/L Normal 22-29 [facility] Comment on above: Performed By: #### C BC, CMP, ADIFF, MG, MDW, GFR, ANEU, TROPHS #### [address] [address] Creatinine [Mass/Vol] 0.79 mg/dL Normal 0.51-0.95 [facility] Comment on above: Performed By: #### C BC, CMP, ADIFF, MG, MDW, GFR, ANEU, TROPHS #### [address] [address] Electrolyte Balance 10.0 mEq/L Normal 4.0-15.0 [facility] Comment on above: Performed By: #### C BC, CMP, ADIFF, MG, MDW, GFR, ANEU, TROPHS #### [address] [address] Globulin 3.5 G/dL Normal 2.7-4.4 [facility] Comment on above: Performed By: #### C BC, CMP, ADIFF, MG, MDW, GFR, ANEU, TROPHS #### [address] [address] Glucose [Mass/Vol] 117 mg/dL High 70-105 [facility] Comment on above: Performed By: #### C BC, CMP, ADIFF, MG, MDW, GFR, ANEU, TROPHS #### [address] [address] Potassium [Moles/Vol] 3.9 mmol/L Normal 3.5-5.1 [facility] Comment on above: Performed By: #### C BC, CMP, ADIFF, MG, MDW, GFR, ANEU, TROPHS #### [address] [address] Sodium [Moles/Vol] 145 mmol/L Normal 136-145 [facility] Comment on above: Performed By: #### C BC, CMP, ADIFF, MG, MDW, GFR, ANEU, TROPHS #### [address] [address] Total Protein 7.5 G/dL Normal 6.4-8.2 [facility] Comment on above: Performed By: #### C BC, CMP, ADIFF, MG, MDW, GFR, ANEU, TROPHS #### [address] [address] Urea nitrogen [Mass/Vol] 11 mg/dL Normal 7-18 [facility] Comment on above: Performed By: #### C BC, CMP, ADIFF, MG, MDW, GFR, ANEU, TROPHS #### [facility] [address] [place], [place] [address] ECG 12-LEADon 10-05-2025 ECG 12-LEAD IMPRESSION: Sinus rhythm Electronically Signed On 10-05-2025 14:59:48 EST by Yaron Alvarado [facility] ED Nursing Noteon 10-05-2025 ED Nursing Note Pt seen walking out of exam room with . Pt then stopped in triage and sat in chair tearful. Pt heard speaking to stating she wanted to go home and that no one cared about her. Pt heard saying I hope I . You guys don't care. You guys are not taking me seriously. Pt and walked out to the waiting room. Triage nurse called for assistance to triage for a pt. Pt was seen laying on the ground talking to . Pt then tried to stand up. pick pt up and sat her in a wheel chair. Pt wheeled back into triage area. Carmen LEES attempted to speak to pt. Pt tearful. Pt stating, Take me home. The next time you see me I'm going to be . Don't touch me. I need all of this recorded. I can't not breath and I need oxygen. Pt's pulse ox documented at 100% RA. Pt then walked out of triage area. PA stated we could not hold her against her will. 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 ED Nursing Note Pt was sitting in TRA2. Pt asked why she left her room VC4 pt states she wants to leave I hope I day an no one cares about me. Pt proceded to lobby and then laid on ground closed her eye and proceded to talk with boyfriend and had her boyfriend pick her up. Provider Rosalee in lobby and spoke with pt. Tried bringing pt back to VC4 for labs and medications ordered. Pt refused. This RN went back to triage while pt continued speaking with provider. [facility] ED Provider Noteon ED Provider Note EMERGENCY DEPARTMENT ENCOUNTER Pt Name: Martita Ricketts Birthdate 2000 Date of evaluation: 10/05/2025 ED Provider: Carmen Turk PA-C CHIEF COMPLAINT Chief Complaint Patient presents with Chest Pain Shortness of Breath HISTORY OF PRESENT ILLNESS (Location/Symptom, Timing/Onset, Context/Setting, Quality, Duration, Modifying Factors, Severity) Note limiting factors. I wore appropriate PPE for the entirety of this encounter. HPI Martita Ricketts is a 25 y.o. female who presents to the emergency department for evaluation of numerous complaints. She initially had checked into the ED for chest pain and shortness of breath, was noted to be in 100% on room air but was requesting oxygen for comfort. Patient states that she has been experiencing the symptoms for the past couple months. She adds that she was evaluated at [facility] recently and states that they did not do anything for her send presents to the [place] ED for evaluation however she states that she did have lab workand imaging completed which was unremarkable. Patient's is at bedside. Patient is also endorsing nausea, vomiting, abdominal pain, chills, headaches, dizziness and lightheadedness. Patient states she has just been feeling weak and very fatigued all over and is concerned that something is seriously wrong. She notes she recently was diagnosed with fibromyalgia, denies any daily medications for this. She states she currently is not on any contraceptives but previously had an IUD about a year ago, then switched to Nexplanon but has since had that removed. Denies recent travel. No unilateral calf pain or swelling. No hemoptysis. Nursing Notes were reviewed. Limitations to history: None Outside historians: None REVIEW OF SYSTEMS Review of Systems 14 systems reviewed, positives and pertinent negatives as per HPI. All other systems were reviewed and are negative. PAST MEDICAL HISTORY Medical History[1] SURGICAL HISTORY Surgical History[2] CURRENT MEDICATIONS Discharge Medication List as of 10/05/2025 10:29 AM CONTINUE these medications which have NOT CHANGED Details albuterol 108 (90 Base) MCG/ACT inhaler Inhale 2 puffs every 6 hours as needed for wheezing., Historical Med cetirizine (ZyrTEC) 10 MG tablet Starting 08/07/2023, Historical Med lithium 600 MG capsule Take [...] [liraglutide], and Pcn [penicillins] FAMILY HISTORY Family History[3] SOCIAL HISTORY Social History[4] SCREENINGS PHYSICAL EXAM ED Triage Vitals [10/05/25 0920] Temp Heart Rate Resp BP 36.7 ?C (98 ?F) 77 20 (!) 146/101 SpO2 Temp Source Heart Rate Source Patient Position 100 % Temporal Monitor Sitting BP Location FiO2 (%) Right arm -- Physical Exam Vitals and nursing note reviewed. Constitutional: General: She is not in acute distress. Appearance: She is well-developed. She is not ill-appearing or toxic-appearing. HENT: Head: Normocephalic and atraumatic. Eyes: Conjunctiva/sclera: Conjunctivae normal. Cardiovascular: Rate and Rhythm: Normal rate and regular rhythm. Heart sounds: No murmur heard. Pulmonary: Effort: Pulmonary effort is normal. No respiratory distress. Breath sounds: Normal breath sounds. No decreased breath sounds, wheezing, rhonchi or rales. Abdominal: Palpations: Abdomen is soft. Tenderness: There is no abdominal tenderness. Musculoskeletal: General: No swelling. Cervical back: Neck supple. Right lower leg: No tenderness. No edema. Left lower leg: No tenderness. No edema. Skin: General: Skin is warm and dry. Capillary Refill: Capillary refill takes less than 2 seconds. Neurological: Mental Status: She is alert. Comments: Patient will not comply with NIH, she states she is too weak to do so. However, patient is moving about freely in the bed into various positions throughout examination Psychiatric: Mood and Affect: Mood normal. DIAGNOSTIC RESULTS RADIOLOGY (Per Emergency Physician): Interpretation per the Radiologist below, if available at the time of this note: No orders to display LABS: Labs Reviewed - No data to display All other labs were within normal range or not returned as of this dictation. EMERGENCY DEPARTMENT COURSE and (more content not included)... Normal [facility] ED Provider Note Emergency Department Encounter [facility] ED Patient: Martita Ricketts : 2000 Date of Evaluation: 10/05/2025 ED Supervising Physician: Yaron Alvarado MD I personally evaluated Martita Ricketts and made/approved the management plan and take responsibility for the patient management. This will serve as my Supervisory note and shared attestation. I did perform a substantive portion of the visit including all aspects of the Medical Decision Making. I wore appropriate PPE for the entirety of this encounter. In brief, Martita Ricketts is a 25 y.o. that presents to the emergency department with history of fibromyalgia, migraine headaches. States she has had chest pain, shortness of breath, headache for the last 3 months. Patient states that she feels like she is about to . She denies any history of DVT or PE. She is not on oral contraceptives. She denies any cardiac history. Patient states she was seen at [facility] yesterday and was discharged and that nobody took her seriously. Patient asked what the signs and symptoms of a pulmonary embolism are which I told her. She told me that she has all of those signs. When I told her that her vital signs are normal and she does not meet the criteria she told me that she does not know why her vital signs are normal and that normally they are not normal. She then told me that I cannot understand her clinical condition because I am a man. I told her that I would like to get some labs, chest x-ray and EKG and she told me that she already had a chest x-ray yesterday so she does not need another 1. I told her I cannot see this chest x-ray so I would like to get it so that I can rule out potentially life-threatening conditions and patient said you are an asshole and asked me to leave the room. Focused exam: Patient awake, alert, not in any distress. Resting comfortably in bed in the position when I entered the room. Able to straighten her legs out, move her arms out difficulty. Lungs are clear to auscultation bilaterally. Heart regular rate and rhythm. Abdomen soft nontender nondistended. No peripheral edema. No posterior calf tenderness. Strong distal pulses in all 4 extremities. I attempted to have patient perform neurologic examination after she straightened her legs out and she stated that she could not perform the tasks. Brief ED course/MDM: Patient is a 25-year-old female with past medical history of fibromyalgia, migraine headaches who presents with multiple complaints. Vital signs are stable, no tachycardia tachypnea or hypoxia. Patient was reportedly seen at [facility] yesterday however I do not see this in the chart at this time. Offered patient laboratory workup and she became upset with this stating that she had already had this but then told me that I was not taking her seriously. Patient is concerned about pulmonary embolism, patient is PERC negative. I informed patient and her what that means however they interrupted me multiple times and refused to listen demanding for a test to rule out pulmonary embolism. I offered them a D-dimer to rule out PE however at this point they demanded I left the room. Patient reportedly became angry at nursing staff after I left, yelled at them and eloped from the emergency department. Diagnostics interpreted by me: EKG(s) sinus rhythm, ventricular of 66, left axis deviation, no ST elevations or depressions meeting STEMI criteria, no evidence of right heart strain, sinus EKG I personally discussed the patient's management with other clinicians: none All diagnostic, treatment, and disposition decisions were made by myself in conjunction with the CED. For all further details of the patient's emergency department visit, please see their documentation. (Comment: Please note this report has been produced using speech recognition software and may contain errors related to that system including errors in grammar, punctuation, and spelling, as well as words and phrases that may be inappropriate. If there are any questions or concerns please feel free to contact the dictating provider for clarification.) Yaron Alvarado MD Acute Care [facility] Yaron Alvarado MD 10/05/25 1258 [facility] 10-05-2025 Magnesium [Mass/Vol] 2.2 mg/dL Normal 1.8-2.4 [facility] Comment on above: Performed By: #### C LUCIE, CMP, VLADISLAV, MG, KELSEA, GFR, ANEU, TROPHS #### [place] [place], [place] [address] No Panel Informationon 10-05 P [place] 12 degrees [facility] [place] Interval 133 ms [facility] QRS [place] -14 degrees [facility] QRSD Interval 78 ms [facility] QT Interval 394 ms [facility] QTC Interval 414 ms [facility] T Wave [place] 13 degrees [facility] Sinus rhythm Electronically Signed On 10-05-2025 14:59:48 EST by Yaron Bernard MD - 10/05/2025 IMPRESSION: Sinus rhythm Electronically Signed On 10-05-2025 14:59:48 EST by Yaron Alvarado [facility] PREGUon 10-05-2025 HCG ( test) Ql (U) Negative Normal [facility] Comment on above: Performed By: #### U A, PREGU ####[address] [address] test (u) int Not detected Invalid Interpretation Code [facility] Comment on above: Performed By: #### U A, PREGU ####[place] [address] [place], [place] [address] TROPHSon 10-05-2025 High Sensitivity Troponin I <4 Normal 0-51 [facility] Comment on above: Result Comment: High Sensitive Troponin I Reference Ranges: Female: 0-51 ng/L Male: 0-76 ng/L Testing performed on Transerv using a homogeneous sandwich chemiluminescent immunoassay based on Ulabox technology. Performed By: #### C BC, CMP, VLADISLAV, MG, W, GFR, ANEU, TROPHS #### [address] [place], [place] [address] UAon 10-05-2025 Color (U) Yellow Normal Yellow [facility] Comment on above: Performed By: #### U A, PREGU ####[address] [place], [place] [address] Glucose (U) [Mass/Vol] Negative Normal Negative [facility] Comment on above: Performed By: #### U A, PREGU ####[place] [address] [place] [address] Ketones Ql (U) Negative Normal Negative [facility] Comment on above: Performed By: #### U A, PREGU ####[place] [address] [address] UA Appear Clear Normal Clear [facility] Comment on above: Performed By: #### U A, PREGU ####[place] [address] UA Blood Negative Normal Negative [facility] Comment on above: Performed By: #### U A, PREGU ####[place] [address] UA Leuk Est Negative Normal Negative [facility] Comment on above: Performed By: #### U A, PREGU ####[place] [address] UA Nitrite Negative Normal Negative [facility] Comment on above: Performed By: #### U A, PREGU ####[place] [address] UA pH 6.0 Normal 5.0 - 8.0 [facility] Comment on above: Performed By: #### U A, PREGU ####[place] [address] [address] UA Protein Negative Normal Negative [facility] Comment on above: Performed By: #### U A, PREGU ####[place] [address] [address] UA Spec Grav 1.025 Normal 1.015-1.025 [facility] Comment on above: Performed By: #### U A, PREGU ####[place] [address] [address] UA Urobilinogen 0.2 E.U./dL Normal 0.2-1.0 [facility] Comment on above: Performed By: #### U A, PREGU ####[facility] [address] [place], [place] [address] Urobilinogen (U) [Mass/Vol] Negative Normal Negative [facility] Comment on above: Performed By: #### U A, PREGU ####[facility] [place] [address] [place], [place] [address] UA Specimen Type Not Given Normal [facility] Comment on above: Performed By: #### U A, PREGU ####[address] [place], [place] [address] Vital signson 10-05-2025 Heart rate 66 /min bpm [facility] XR CHEST 1 VIEWon 10-05-2025 XR CHEST 1 VIEW ORIGINAL EXAMINATION: ONE XRAY VIEW OF THE CHEST10/05/2025 1:07 am COMPARISON: None HISTORY: ORDERING SYSTEM PROVIDED HISTORY: Reason for Exam: sob FINDINGS: Cardiomediastinal contours are within normal limits. No focal consolidation or pulmonary edema. No pleural effusion or visible pneumothorax. The bony thorax appears intact. IMPRESSION: No acute radiographic findings. Preliminary Report was Dictated by a Resident Interpreted by: Lacie Andrew MD Preliminary Report By: Yaron Infante Electronically signed By Lacie Andrew MD Dictated Date: 10/05/2025 1:08:46 AM Prelim Date: 10/05/2025 1:10:43 AM Sign Date: 10/05/2025 2:26:05 AM Ordering Provider: ROXANN GARCIA Normal [facility] LABORATORYOrdered By: SYSTEM SYSTEM on 10-04-2025 Albumin BCP dye [Mass/Vol] 4.0 G/dL Normal 3.5 - 5.0 G/dL AO ADM SS Albumin/Globulin [Mass ratio] 1.1 {ratio} Normal 1.1 - 2.5 ratio AO ADM SS ALP [Catalytic activity/Vol] 94 U/L Normal 40 - 135 U/L AO ADM SS ALT With P-5'-P [Catalytic activity/Vol] 49 U/L Normal 14 - 59 U/L AO ADM SS AST With P-5'-P [Catalytic activity/Vol] 29 U/L Normal 10 - 40 U/L AO ADM SS Basophils (Bld) [#/Vol] 0.1 103/mcL Normal 0.0 - 0.3 10^3/mcL AO Workflow SS Basophils/100 WBC (Bld) 0.8 % Normal 0.0 - 2.5 % AO Workflow SS Bilirubin [Mass/Vol] 0.2 mg/dL Normal 0.2 - 1 .0 mg/dL AO ADM SS Comment on above: Interpretive Data: U se of this assay is not recommended for patients undergoing treatment with eltrombopag due to the potential for falsely elevated results. Calcium [Mass/Vol] 9.0 mg/dL Normal 8.4 - 10. 2 mg/dL AO ADM SS Chloride [Moles/Vol] 109 mmol/L High 98 - 10 7 mmol/L AO ADM SS CO2 [Moles/Vol] 26 mmol/L Normal 22 - 29 mmol/L AO ADM SS Creatinine [Mass/Vol] 0.79 mg/dL Normal 0.51 - 0.95 mg/dL AO ADM SS Electrolyte Balance 10.0 mEq/L Normal 4.0 - 15 .0 mEq/L AO ADM SS Eosinophil, Absolute 0.3 103/mcL Normal 0.0 - 0 .7 10^3/mcL AO Workflow SS Eosinophils/100 WBC (Bld) 4.2 % Normal 0.0 - 6.0 % AO Workflow SS Erythrocyte distribution width (RBC) [Ratio] 13.5 % Normal 11.5 - 15.5 % AO Workflow SS Globulin 3.5 G/dL Normal 2.7 - 4.4 G/dL AO ADM SS GLOMERULAR FILTRATION RATE/1.73 SQ M.PREDICTED:ARVRAT:PT:SE R/PLAS/BLD:QN:CREATININE -BASED FORMULA (CKD-EPI 2020) 107 ml/min/1.73sqm Invalid Interpretation Code AO Chemistry S Comment on above: Interpretive Data: Stages of Chronic Kidney Disease (CKD) Stage Description eGFR(ml/min/1.73 sq.m.) CKD 1 Normal kidney function or >=90 normal kindney function with possible kidney damage (ex. Proteinuria) CKD 2 Kidney damage with mild loss 60-89 of kidney function CKD 3a Mild to moderate loss of kidney 45-59 function CKD 3b Moderate to severe loss of 30-44 of kindey function CKD 4 Severe loss of kidney function 15-29 CKD 5 Kidney failure <15 Note: (go live 2025) the eGFR calculation was updated to the 2020 CKD-EPI creatinine equation without a race factor to calculate the eGFR results. Glucose [Mass/Vol] 117 mg/dL High 70 - 105 mg/dL AO ADM SS Hematocrit (Bld) [Volume fraction] 40.1 % Normal 34.0 - 46.0 % AO Workflow SS Hemoglobin (Bld) [Mass/Vol] 13.4 G/dL Normal 12.0 - 16.0 G/dL AO Workflow SS Lymphocytes (Bld) [#/Vol] 2.1 103/mcL Normal 0.9 - 4.3 10^3/mcL AO Workflow SS Lymphocytes/100 WBC (Bld) 29.4 % Normal 20.0 - 40.0 % AO Workflow SS Magnesium [Mass/Vol] 2.2 mg/dL Normal 1.8 - 2 .4 mg/dL AO ADM SS MCH (RBC) [Entitic mass] 28.7 pg Normal 27. 0 - 33.0 pg AO Workflow SS MCHC 33.3 G/dL Normal 32.0 - 36.0 G/dL AO Workflow SS MCV (RBC) [Entitic vol] 86.0 fL Normal 80.0 - 99.0 fL AO Workflow SS Monocyte distribution width Auto (Bld) [Entitic vol] 20.53 1 High 0.00 - 20.00 AO Workflow SS Comment on above: Result Comment: For adults in ED, MDW>20.0 may be associated with a higher risk of sepsis during the first 12hrs of hospital admission Monocytes (Bld) [#/Vol] 0.5 103/mcL Normal 0.1 - 1.4 10^3/mcL AO Workflow SS Monocytes/100 WBC (Bld) 7.7 % Normal 2.0 - 13.0 % AO Workflow SS Neutrophils (Bld) [#/Vol] 4.0 103/mcL Normal 2.3 - 8.1 10^3/mcL AO Workflow SS Neutrophils/100 WBC (Bld) 57.9 % Normal 50.0 - 75.0 % AO Workflow SS Platelet mean volume (Bld) [Entitic vol] 7.8 fL Normal 6.6 - 10.5 fL AO Workflow SS Platelets (Bld) [#/Vol] 383 103/mcL Normal 150 - 450 10^3/mcL AO Workflow SS Potassium [Moles/Vol] 3.9 mmol/L Normal 3.5 - 5.1 mmol/L AO ADM SS Protein [Mass/Vol] 7.5 G/dL Normal 6.4 - 8.2 G/dL AO ADM SS RBC (Bld) [#/Vol] 4.67 106/mcL Normal 4.10 - 5.3 0 10^6/mcL AO Workflow SS Sodium [Moles/Vol] 145 mmol/L Normal 136 - 145 mmol/L AO ADM SS Troponin I.cardiac DL <= 0.01 ng/mL [Mass/Vol] ng/L Normal 0 - 51 ng/L AO ADM SS Comment on above: Interpretive Data: H igh Sensitive Troponin I Reference Ranges: Female: 0-51 ng/L Male: 0-76 ng/L Testing performed on Transerv using a homogeneous sandwich chemiluminescent immunoassay based on Ulabox technology. Urea nitrogen [Mass/Vol] 11 mg/dL Normal 7 - 18 mg/dL AO ADM SS Urea nitrogen/Creatinine [Mass ratio] 14 ratio Normal 7 - 27 ratio AO ADM SS WBC (Bld) [#/Vol] 7.0 103/mcL Normal 4.5 - 10.8 10^3/mcL AO Workflow SS LABORATORYOrdered By: Matthew Schmidt on 10-04-2025 Color (U) Yellow (10/04/25 11:48 PM) Normal Yellow AO Auto Urine SS Glucose (U) [Mass/Vol] Negative Normal Negative AO Auto Urine SS HCG ( test) Ql Negative (10/04/25 11:48 PM) Normal AO Manual Urine SS Ketones Ql (U) Negative Normal Negative AO Auto Urine SS test (u) int Not detected Invalid Interpretation Code AO Manual Urine SS UA Appear Clear (10/04/25 11:48 PM) Normal Clear AO Auto Urine SS UA Bili Negative (10/04/25 11:48 PM) Normal Negative AO Auto Urine SS UA Blood Negative (10/04/25 11:48 PM) Normal Negative AO Auto Urine SS UA Leuk Est Negative (10/04/25 11:48 PM) Normal Negative AO Auto Urine SS UA Nitrite Negative (10/04/25 11:48 PM) Normal Negative AO Auto Urine SS UA pH 6.0 (10/04/25 11:48 PM) Normal 5.0 - 8.0 AO Auto Urine SS UA Protein Negative Normal Negative AO Auto Urine SS UA Spec Grav 1.025 (10/04/25 11:48 PM) Normal 1.015-1.025 AO Auto Urine SS UA Specimen Type Not Given (10/04/25 11:48 PM) Normal AO Auto Urine SS UA Urobilinogen 0.2 E.U./dL Normal 0.2-1.0 AO Auto Urine SS RON BY IFA SCREENon 09-08-20 Nuclear Ab Ql (S) Negative Normal Negative [facility] Comment on above: Order Comment: Speci men Type: BLOOD SPECIMEN Ordering Facility: [facility] Address: [address] [place] [address] Result Comment: Anti -nuclear antibody test is used as an aid in diagnosis of systemic autoimmune diseases. Where positive and clinically warranted, follow-up using disease-specific testing is recommended. Low positive titers are not uncommon with advanced age, certain chronic infections, and malignancies among others. Test methodology: Indirect fluorescence immunoassay (IFA) using HEp-2 cells. Performed By: #### 4 537-7 #### [facility] CLIA [id number] [address] [place] [address] [place] C3 SerPl-mCncon 09-08-2025 Complement C3 [Mass/Vol] 165 mg/dL Normal 86-166 [facility] Comment on above: Order Comment: Speci men Type: BLOOD SPECIMEN Ordering Facility: [facility] Address: [address] [place] [address] Performed By: #### 4 537-7 #### [facility] IA [id number] [address] [place] [address] [place] C4 SerPl-mCncon 09-08-2025 Complement C4 [Mass/Vol] 23 mg/dL Normal 13-46 [facility] Comment on above: Order Comment: Speci men Type: BLOOD SPECIMEN Ordering Facility: [facility] Address: [address] [place] [address] Performed By: #### 4 537-7 #### [facility] CLIA [id number] STATES OF [facility] CNOVon 09-08-2025 CNOV Office Visit (RHWSTR ) MARTITA RICKETTS ([id number]) 2 F CHT Date Time Provider Department 09/08/25 9:00 AM ALVAREZ TSAI WSTR During your visit today, we recorded the following information about you: Pulse Respiration Blood pressure Weight 88/minute 17/minute 124/72 84.6 kg Alvarez Tsai PA-C 09/08/2025 6:29 PM Signed Rheumatology CONSULTATION Date of Service: 09/08/2025 Patient: Martita Ricketts Medical Record: [id number] Primary Care Physician: Magda Kelly NP Last Rheumatology visit: None at [facility] Referring Provider: Magda Kelly [address] [facility] [address] Martita Ricketts is here today at request of Magda Kelly NP specifically for consultation of my opinion in regards to the chief complaint listed below. Correspondence will be shared today via the [facility] electronic health record or through regular mail, where applicable. Recording using My 1% software for draft documentation of the visit was discussed with the patient/authorized route sales representative; all questions welcomed and answered. Patient/authorized route sales representative agreed to proceed History of Present Illness Chief Complaint: Joint pain, inflammation, arthritis She is currently taking ibuprofen, meloxicam. Martita is RF negative - 9 (05/13/2018). Her most recent RON was negative (11/07/2015). PMH of Traumatic brain injury, seizure disoder, headache, Tremors of hands and face, Asthma, Allergic rhinitis, Behavioral disorder, Pineal hyperplasia, insulin-resistant diabetes mellitus and somatic abnormalities Martita is a 25-year-old female with a history of asthma, migraines, seizures, anxiety, depression, PTSD, ADHD, and eczema, presenting for evaluation of chronic joint pain and stiffness. Martita reports onset of joint pain and stiffness beginning in May of last year, with symptoms initially improving but recurring this year with increased severity. She describes the pain as diffuse, resembling flu-like myalgias, and notes significant fatigue. The pain is most pronounced in the evenings, becoming excruciating and affecting her ability to wear bras due to shoulder pain/tenderness/discom fort from straps. She experiences morning stiffness lasting approximately 3 hours, with persistent pain throughout the day. Martita reports pain in her hands, shoulders, and knees. Hand pain is described as cramping and stiffness, particularly after activities such as typing and playing video games. She notes visible swelling in her hands during severe flare-ups. Shoulder pain is constant, unrelated to weight-bearing, and persists even without external pressure. Knee pain is severe, recalling episodes from childhood where her knees felt swollen and painful without visible abnormalities. She also reports chronic migraines associated with dizziness and lightheadedness, for which she is actively receiving care from neurology and her primary care provider. She has tried various ybql-yuj-gbudjkg medications, including Tylenol, ibuprofen, and NyQuil, with minimal relief. A recent ER visit for severe pain resulted in treatment with Toradol, Benadryl, and Reglan, which also provided no relief. She has attempted care management coordinator, muscle relaxers, anti-inflammatories, and painkillers without significant improvement. Warm water therapy and hot showers provide some temporary relief. Martita reports paresthesia in her arms and fingers bilaterally, as well as her toes, described as a stinging, burning sensation similar to extremities falling asleep. This occurs every morning regardless of sleeping position and resolves after some time. She denies current use of medications for neuropathic pain such as gabapentin or Lyrica. She reports oral ulcers, intermittent dyspnea related to asthma, and alternating diarrhea and constipation with a history of blood in stool. She denies psoriasis but has eczema. She reports erythematous, painful, and inflamed eyes with a history of a subconjunctival hemorrhage. She denies known trauma or injury. She reports a history of unintentional weight loss of 30 pounds last year without trying, accompanied by significant illness. She denies current weight loss but notes persistent fatigue, describing it as feeling unrefreshed despite adequate sleep. She reports insomnia, managed with Seroquel at bedtime. She is currently taking multiple medications, including breathing treatments, calcium, clonidine, Lexapro, iron, Ajovy, Atarax, Motrin, Lamictal, Zofran as needed, and Seroquel 100 mg at bedtime. She is under the care of a psychiatrist, Brandy Rodriguez, in [facility]. She has a history of adenoidectomy, appendectomy, and a in 2021. She is adopted and has no known family medical history. She smokes marijuana daily, denies tobacco or alcohol use, and denies use o (more content not included)... Normal [facility] CRP SerPl-ncon 09-08-2025 CRP [Mass/Vol] 0.4 mg/dL Normal <0.9 [facility] Comment on above: Order Comment: Flavio price Type: BLOOD SPECIMEN Ordering Facility: [facility] Address: [address] [place] [address] Performed By: #### 4 537-7 #### [facility] CLIA [id number] [address] [place] [address] [place] Centromere Ab IF Ql (S)on Centromere Ab Qn (S) <0.2 Normal <1.0 [facility] Comment on above: Order Comment: Flavio price Type: BLOOD SPECIMEN Ordering Facility: [facility] Address: [address] [place] [address] Result Comment: Anti -centromere antibody is used as in aid in diagnosis of systemic sclerosis. Clinical correlation is required. Test Methodology: Multiplex flow immunoassay. Performed By: #### 2 9374-6, 29464-4, 75954-0, 62387-2, 02241-3, 67944-7, 34596-7, 48559-8 #### [facility] CLIA [id number] [address] [place] [address] [place] CENTROMERE AB QUAL Negative Normal Negative [facility] Comment on above: Order Comment: Flavio price Type: BLOOD SPECIMEN Ordering Facility: [facility] Address: [address] [place], [place] [address] Performed By: #### 2 9374-6, 80632-1, 83981-4, 09608-4, 77466-9, 08756-0, 06230-7, 61894-3 #### [facility] CLIA [id number] [address] [place] [address] [place] Chromatin Ab Qnon 09-08-2025 CHROMATIN AB QUAL Negative Normal Negative [facility] Comment on above: Order Comment: Speci men Type: BLOOD SPECIMEN Ordering Facility: [facility] Address: [address] [place] [address] Performed By: #### 2 9374-6, 05322-6, 62727-2, 56363-0, 90567-1, 65349-5, 32460-9, 99533-9 #### [facility] CLIA [id number] [address] [place] [address] [place] Chromatin Ab SerPl-aCncon Chromatin Ab Qn <0.2 Normal <1.0 [facility] Comment on above: Order Comment: Speci men Type: BLOOD SPECIMEN Ordering Facility: [facility] Address: [address] [place] [address] Result Comment: Test Methodology: Multiplex flow immunoassay. Performed By: #### 2 9374-6, 13762-0, 16866-4, 39083-1, 95413-6, 03468-7, 66029-7, 59709-5 #### [facility] CLIA [id number] [address] [place] [address] [place] Cyclic citrullinated peptide IgG Qnon 09-08-2025 CCP ANTIBODY IGG QUALITATIVE Negative Normal Negative [facility] Comment on above: Order Comment: Speci men Type: BLOOD SPECIMEN Ordering Facility: [facility] Address: [address] [place] [address] Performed By: #### 3 3935-8 #### [facility] CLIA [id number] [address] [place] [address] [place] DNA double strand Ab IA Qn ( S)on 09-08-2025 DNA ANTIBODY 6 IU/mL Normal <=200 [facility] Comment on above: Order Comment: Speci men Type: BLOOD SPECIMEN Ordering Facility: [facility] Address: [address] [place] [address] Result Comment: Nega tive: <200 IU/mL Equivocal: 201-300 IU/mL Moderate Positive: 301-800 IU/mL Strong Positive: >801 IU/mL Performed By: #### 4 537-7 #### [facility] CLIA [id number] [address] [place] [address] [place] DNA ANTIBODY QUALITATIVE INTERPRETATION Negative Normal Negative [facility] Comment on above: Order Comment: Speci men Type: BLOOD SPECIMEN Ordering Facility: [facility] Address: [address] [place] [address] Performed By: #### 4 537-7 #### [facility] CLIA [id number] [address] [place] [address] [place] AMMY Jo1 Ab Ser-aCncon 2024 Radha-1 extractable nuclear Ab Qn (S) <0.2 Normal <1.0 [facility] Comment on above: Order Comment: Speci men Type: BLOOD SPECIMEN Ordering Facility: [facility] Address: [address] [place] [address] Performed By: #### 2 9374-6, 58859-5, 16242-6, 52220-3, 84012-3, 92242-5, 43487-9, 61814-2 #### [facility] CLIA [id number] [address] [place] [address] [place] AMMY COMMUNITY SERVICE COORDINATOR Ab Ser-aCncon 2024 Ribonucleoprotein extractable nuclear Ab Qn (S) <0.2 Normal <1.0 [facility] Comment on above: Order Comment: Speci men Type: BLOOD SPECIMEN Ordering Facility: [facility] Address: [address] [place], [place] [address] Performed By: #### 2 9374-6, 98905-4, 80158-9, 77312-1, 11278-4, 54718-2, 82320-3, 33109-1 #### [facility] CLIA [id number] [address] [place] [address] [place] Ribonucleoprotein extractable nuclear Ab Qn (S) 0.3 AI Normal <1.0 [facility] Comment on above: Order Comment: Speci men Type: BLOOD SPECIMEN Ordering Facility: [facility] Address: [address] [place] [address] Performed By: #### 4 537-7 #### [facility] CLIA [id number] [address] [place] [address] [place] AMMY SM IgG Ser-aCncon 2024 Srivastava extractable nuclear IgG Qn (S) <0.2 Normal <1.0 [facility] Comment on above: Order Comment: Speci men Type: BLOOD SPECIMEN Ordering Facility: [facility] Address: [address] [place] [address] Performed By: #### 2 9374-6, 53310-2, 14896-0, 81373-6, 57720-8, 08042-3, 81533-0, 66701-6 #### [facility] CLIA [id number] [address] [place] [address] [place] AMMY SS-A Ab Ser-aCncon 09-08 Sjogrens syndrome-A extractable nuclear Ab Qn (S) <0.2 Normal <1.0 [facility] Comment on above: Order Comment: Speci men Type: BLOOD SPECIMEN Ordering Facility: [facility] Address: [address] [place] [address] Result Comment: Test Methodology: Multiplex flow immunoassay. Performed By: #### 2 9374-6, 77540-7, 90287-5, 53419-3, 68784-4, 85228-5, 16723-9, 90593-0 #### [facility] CLIA [id number] [address] [place] [address] [place] AMMY SS-B Ab Ser-aCncon 09-08 Sjogrens syndrome-B extractable nuclear Ab Qn (S) <0.2 Normal <1.0 [facility] Comment on above: Order Comment: Flavio price Type: BLOOD SPECIMEN Ordering Facility: [facility] Address: [address] [place] [address] Result Comment: Anti -SSB (anti-La) antibody is used as an aid in diagnosis of a variety of systemic autoimmune diseases, especially for Sjogren's syndrome and systemic lupus erythematosus. Clinical correlation is required. Test Methodology: Multiplex flow immunoassay. Performed By: #### 2 9374-6, 05618-4, 75303-7, 71326-9, 50861-6, 26446-6, 83758-0, 73016-6 #### [facility] CLIA [id number] [address] [place] [address] [place] ESR Westergren method (Bld) [Velocity]on 09-08-2025 ESR (Bld) [Velocity] 5 mm/h Normal 0-20 [facility] Comment on above: Order Comment: Flavio price Type: BLOOD SPECIMEN Ordering Facility: [facility] Address: [address] [place] [address] Performed By: #### 4 537-7 #### [facility] CLIA [id number] [address] [place] [address] [place] Radha-1 extractable nuclear Ab Qn (S)on 09-08-2025 RADHA 1 ANTIBODY QUAL Negative Normal Negative [facility] Comment on above: Order Comment: Flavio price Type: BLOOD SPECIMEN Ordering Facility: [facility] Address: [address] [place] [address] Result Comment: Anti -RADHA-1 antibody is used as an aid in diagnosis of polymyositis and dermatomyositis especially with pulmonary involvement. A negative result cannot rule out polymyositis or dermatomyositis. Clinical correlation is required. Test Methodology: Multiplex flow immunoassay. Performed By: #### 2 9374-6, 20015-6, 38155-3, 69810-7, 55701-5, 96169-9, 12927-3, 52972-8 #### [facility] CLIA [id number] [address] [place] [address] [place] Rheumatoid fact SerPl-aCncon 09-08-2025 Rheumatoid factor Qn [IU]/mL Normal <16 [facility] Comment on above: Order Comment: Speci men Type: BLOOD SPECIMEN Ordering Facility: [facility] Address: [address] [place] [address] Performed By: #### 4 537-7 #### [facility] CLIA [id number] [address] [place] [address] [place] Ribonucleoprotein extractabl e nuclear Ab Qn (S)on 09-08-2025 ANTI-COMMUNITY SERVICE COORDINATOR QUAL Negative Normal Negative [facility] Comment on above: Order Comment: Speci men Type: BLOOD SPECIMEN Ordering Facility: [facility] Address: [address] [place] [address] Performed By: #### 4 537-7 #### [facility] CLIA [id number] [address] [place] [address] [place] RIBOSOMAL COMMUNITY SERVICE COORDINATOR QUAL Negative Normal Negative [facility] Comment on above: Order Comment: Speci men Type: BLOOD SPECIMEN Ordering Facility: [facility] Address: [address] [place] [address] Result Comment: Anti -Ribosomal RNA (Ribosomal P) antibody is used as an aid in diagnosis of systemic autoimmune diseases especially systemic lupus erythematosus and mixed connective tissue disease. Cross-reactivity with Anti-srivastava antibody is not uncommon. Clinical correlation is required. Test Methodology: Multiplex flow immunoassay. Performed By: #### 2 9374-6, 37694-8, 09182-6, 62233-8, 57622-5, 02199-1, 34886-0, 53202-0 #### [facility] CLIA [id number] [address] [place] [address] [place] SCL-70 extractable nuclear I gG IA Qn (S)on 09-08-2025 SCLERODERMA AB QUAL Negative Normal Negative [facility] Comment on above: Order Comment: Speci men Type: BLOOD SPECIMEN Ordering Facility: [facility] Address: [address] [place] [address] Performed By: #### 2 9374-6, 71829-2, 61750-2, 42842-2, 69864-2, 14271-1, 24717-6, 03874-8 #### [facility] CLIA [id number] [address] [place] [address] [place] SCLERODERMA IGG AB <0.2 Normal <1.[address] [facility] Comment on above: Order Comment: Speci men Type: BLOOD SPECIMEN Ordering Facility: [facility] Address: [address] [place] [address] Result Comment: Scl- 70/Scleroderma antibody test is used as an aid in diagnosis of systemic sclerosis especially the diffuse cutaneous form. A negative result cannot rule out systemic sclerosis. The final interpretation should consider clinical picture and other test results such as anti-centromere antibody. Test Methodology: Multiplex flow immunoassay. Performed By: #### 2 9374-6, 32491-1, 52800-1, 92377-8, 40579-8, 21928-7, 41646-5, 92849-3 #### [facility] CLIA [id number] [address] [place] [address] [place] Sjogrens syndrome-A extracta ble nuclear Ab Qn (S)on 09-08-2025 SSA ANTIBODY QUAL Negative Normal Negative [facility] Comment on above: Order Comment: Speci men Type: BLOOD SPECIMEN Ordering Facility: [facility] Address: [address] [place] [address] Performed By: #### 2 9374-6, 16026-9, 02099-2, 13780-7, 68628-1, 60060-4, 86817-7, 28263-6 #### [facility] CLIA [id number] [address] [place] [address] [place] Sjogrens syndrome-B extracta ble nuclear Ab Qn (S)on 09-08-2025 SSB ANTIBODY QUAL Negative Normal Negative [facility] Comment on above: Order Comment: Speci men Type: BLOOD SPECIMEN Ordering Facility: [facility] Address: [address] [place] [address] Performed By: #### 2 9374-6, 35485-1, 16701-8, 25196-5, 50395-6, 63072-9, 19516-8, 24911-7 #### [facility] CLIA [id number] [address] [place] [address] [place] Srivastava extractable nuclear Ig G Qn (S)on 09-08-2025 SM ANTIBODY QUAL Negative Normal Negative [facility] Comment on above: Order Comment: Speci men Type: BLOOD SPECIMEN Ordering Facility: [facility] Address: [address] [place] [address] Result Comment: Anti -Sm (Srivastava) antibody is used as an aid in diagnosis of systemic lupus erythematosus and its presence is associated with renal disease. A negative result cannot rule out systemic lupus erythematosus. Clinical correlation is required. Test Methodology: Multiplex flow immunoassay. Performed By: #### 2 9374-6, 54481-6, 19765-9, 71023-6, 64646-4, 22160-9, 61828-0, 78309-7 #### [facility] CLIA [id number] [address] [place] [address] [place] cCP IgG SerPl-aCncon 025 Cyclic citrullinated peptide IgG Qn <15 Normal <20 [facility] Comment on above: Order Comment: Speci men Type: BLOOD SPECIMEN Ordering Facility: [facility] Address: [address] [place] [address] Performed By: #### 3 3935-8 #### [facility] CLIA [id number] [address] [place] [address] [place] [facility] MR/BMS.Chelsey 08-17-2025 MR/BMS.BP [facility] [address] [facility], [address] [place] [id number] OFFICE VISIT Date of Service: 08/17/25 MR#: [id number] Acct: [id number] Name: MARTITA RICKETTS Rep #: [id number] : 2000 Provider: SREE kelly Age/Sex: 25/F [place] [facility] Status: Signed Intake Vital Signs 07/06/25 06:58 07/06/25 15:24 08/17/25 06:57 Height 4 ft 8 in 4 ft 8 in 4 ft 8 in Weight: 182 lb 6 oz BMI 40.8 BP 109/78 BP Intake Visit Reasons: 6 wk FU Allergies Penicillins Allergy (Verified 07/06/25 15:21) Rash pomegranate Allergy (Verified 07/06/25 15:21) Rash fluoxetine (From Prozac) Adverse Reaction (Mild, Verified 07/06/25 15:21) Other Tricyclic Antidepressants and Tricy Adverse Reaction (Verified 07/06/25 15:21) adverse [facility] Medical History Schizoaffective disorder, bipolar type Asthma [...] 3-4 times per week duration: 30-45 minutes/day leti/sikhism: jewish seatbelt use: always do you feel safe at home: Yes additional social history: -no contact - not HPI History of Present Illness History provided by: patient Chief complaint: Anxiety/Fatigue HPI: Martita Ricketts is a 25 year old female patient presenting today for a virtual follow up evaluation. Reports she has been doing well. Main concern is with fatigue from medication. Within an hour of taking quetiapine has been feeling more fatigued. Reports sleep has been good. 8 hours per night. Does feel mostly well rested. Mood has been good since last appointment. Has been more positive and trying to have a better outlook on things. Denies feelings of depression. Denies SI/HI. Admits to some feelings of anxiety with being in public or being overwhelmed. Appetite has been poor since removing Nexplanon. Has been more nauseous in the morning. This tele-medicine visit was performed via audio/video technology. Previous similar episode: Yes Age of first onset of symptoms: 11-20 years Review of Systems Constitutional Reports: change in weight (gain) and fatigue; Denies: fever(s), chills or change in sleep pattern Eyes Denies: [...] seizure-like activity or involuntary movements Psychiatric Reports: anxiety; Denies: mood swings, panic attacks, change in sleep pattern, hopelessness, loss of interest, irritability, paranoia, difficulty concentrating, visual hallucinations, suicidal ideation or homicidal ideation Endocrine Reports: fatigue; Denies: polyuria, polydipsia, cold intolerance or heat intolerance Hematologic/Lymphatic Reports: easy bleeding; Denies: easy bruising Allergic/Immunologic Denies: wheezing Exam Mental Status Exam - Psych Appearance casually dressed, adequately groomed and no apparent distress Attitude cooperative and calm Activity/Motor Behavior MSE activity/motor behavior finding no adventitious movements and appropriate eye contact Spe (more content not included)... Normal [facility] MRI BRAIN W/ + W/O CONTRASTo n 07-18-2025 MRI BRAIN W/ + W/O CONTRAST ORIGINAL EXAMINATION: MRI OF THE BRAIN WITHOUT AND WITH CONTRAST 07/16/2025 7:48 am TECHNIQUE: Multiplanar multisequence MRI of the head/brain was performed without and with the administration of intravenous contrast. COMPARISON: None. HISTORY: ORDERING SYSTEM PROVIDED HISTORY: Reason for Exam: Chronic migraine with aura, intractable, without status migrainosus FINDINGS: INTRACRANIAL STRUCTURES/VENTRICLES: There is no acute infarct. No mass effect or midline shift. No evidence of an acute intracranial hemorrhage. The ventricles and sulci are normal in size and configuration. The sellar/suprasellar regions appear unremarkable. The normal signal voids within the major intracranial vessels appear maintained. No abnormal focus of enhancement is seen within the brain. ORBITS: The visualized portion of the orbits demonstrate no acute abnormality. SINUSES: The visualized paranasal sinuses and mastoid air cells demonstrate no acute abnormality. BONES/SOFT TISSUES: The bone marrow signal intensity appears normal. The soft tissues demonstrate no acute abnormality. IMPRESSION: Normal MRI examination of the brain. Interpreted by: Karthik Narayan Preliminary Report By: Karthik Narayan Electronically signed By Karthik Narayan Dictated Date: 07/18/2025 6:12:59 AM Prelim Date: 07/18/2025 6:14:25 AM Sign Date: 07/18/2025 6:14:25 AM Ordering Provider: HERMELINDO Pichardo [facility] ANTINUCLEAR ANTIBODIES DIREC Sahil 07-07-2025 RON,DIRECT Negative Normal Negative [facility] Comment on above: Result Comment: Perf ormed at: [facility] [address] [id number] [employer] Worker: Jorge Cadena PhD, Phone: [phone] Performed By: #### L 501.48398, L3100.5475, L501.9985, L506.0400, L503.6550, L100.0100, L3300.6900, L506.1001, L503.0106, L505.7010, L501.6710, L500.4050, L3100.9100, L501.9520, L503.6030, L101.9900 ####[facility] [address] [place], [place], [phone] Sjogren's Antibodies A/Bon 0 - ANTI-SS-A < 0.2 Normal 0.0-0.9 [facility] Comment on above: Performed By: #### L 501.89587, L3100.5475, L501.9985, L506.0400, L503.6550, L100.0100, L3300.6900, L506.1001, L503.0106, L505.7010, L501.6710, L500.4050, L3100.9100, L501.9520, L503.6030, L101.9900 ####[facility] [address] [place], [place], [phone] ANTI-SS-B < 0.2 Normal 0.0-0.9 [facility] Comment on above: Performed By: #### L 501.05582, L3100.5475, L501.9985, L506.0400, L503.6550, L100.0100, L3300.6900, L506.1001, L503.0106, L505.7010, L501.6710, L500.4050, L3100.9100, L501.9520, L503.6030, L101.9900 ####[facility] [address] [place], [place], [phone] Thyroid Peroxidase ABon 08-0 THYR PEROX AB 14 IU/mL Normal 0-34 [facility] Comment on above: Result Comment: Perf ormed at: [facility] [address] [id number] [employer] Worker: Jorge Cadena PhD, Phone: [phone] Performed By: #### L 501.80742, L3100.5475, L501.9985, L506.0400, L503.6550, L100.0100, L3300.6900, L506.1001, L503.0106, L505.7010, L501.6710, L500.4050, L3100.9100, L501.9520, L503.6030, L101.9900 ####[facility] [address] [place], [place], [phone] CBC W/Diff, Automatedon 08-0 5-2024 Absolute Lymph 2.25 X10 3/uL Normal 0.83-4.51 [facility] Comment on above: Performed By: #### L 501.23726, L3100.5475, L501.9985, L506.0400, L503.6550, L100.0100, L3300.6900, L506.1001, L503.0106, L505.7010, L501.6710, L500.4050, L3100.9100, L501.9520, L503.6030, L101.9900 ####[facility] [address] [place], [place], [phone] Absolute Neut 4.0 X10 3/uL Normal 2.0-7.7 [facility] Comment on above: Performed By: #### L 501.21301, L3100.5475, L501.9985, L506.0400, L503.6550, L100.0100, L3300.6900, L506.1001, L503.0106, L505.7010, L501.6710, L500.4050, L3100.9100, L501.9520, L503.6030, L101.9900 ####[facility] [address] [place], [address] Basophils/100 WBC (Bld) 0.6 % Normal 0-1 [facility] Comment on above: Performed By: #### L 501.20606, L3100.5475, L501.9985, L506.0400, L503.6550, L100.0100, L3300.6900, L506.1001, L503.0106, L505.7010, L501.6710, L500.4050, L3100.9100, L501.9520, L503.6030, L101.9900 ####[facility] [address] [facility] [place], [address] Eosinophils/100 WBC (Bld) 3.5 % Normal 0-5 [facility] Comment on above: Performed By: #### L 501.79502, L3100.5475, L501.9985, L506.0400, L503.6550, L100.0100, L3300.6900, L506.1001, L503.0106, L505.7010, L501.6710, L500.4050, L3100.9100, L501.9520, L503.6030, L101.9900 ####[facility] [address] [facility] [address] [place], [place], [phone] Erythrocyte distribution width (RBC) [Ratio] 13.2 % Normal 11.6-14.6 [facility] Comment on above: Performed By: #### L 501.94127, L3100.5475, L501.9985, L506.0400, L503.6550, L100.0100, L3300.6900, L506.1001, L503.0106, L505.7010, L501.6710, L500.4050, L3100.9100, L501.9520, L503.6030, L101.9900 ####[facility] [address] [place], [place], [phone] Hematocrit (Bld) [Volume fraction] 38.5 % Normal 37-47 [facility] Comment on above: Performed By: #### L 501.59911, L3100.5475, L501.9985, L506.0400, L503.6550, L100.0100, L3300.6900, L506.1001, L503.0106, L505.7010, L501.6710, L500.4050, L3100.9100, L501.9520, L503.6030, L101.9900 ####[facility] [address] [facility] [place], [place], [phone] Hemoglobin (Bld) [Mass/Vol] 12.9 g/dL Normal 12.0-15.0 [facility] Comment on above: Performed By: #### L 501.45241, L3100.5475, L501.9985, L506.0400, L503.6550, L100.0100, L3300.6900, L506.1001, L503.0106, L505.7010, L501.6710, L500.4050, L3100.9100, L501.9520, L503.6030, L101.9900 ####[facility] [address] [facility] [place], [place], [phone] IG% 0.300 Normal 0.0-0.9 [facility] Comment on above: Result Comment: IG% - Immature Granulocytes (promyelocytes, myelocytes and metamyelocytes) > 1% indicates that a LEFT SHIFT is Present. Performed By: #### L 501.26747, L3100.5475, L501.9985, L506.0400, L503.6550, L100.0100, L3300.6900, L506.1001, L503.0106, L505.7010, L501.6710, L500.4050, L3100.9100, L501.9520, L503.6030, L101.9900 ####[facility] [address] [facility] [place], [address] Lymphocytes/100 WBC (Bld) 32.5 % Normal 19-41 [facility] Comment on above: Performed By: #### L 501.69752, L3100.5475, L501.9985, L506.0400, L503.6550, L100.0100, L3300.6900, L506.1001, L503.0106, L505.7010, L501.6710, L500.4050, L3100.9100, L501.9520, L503.6030, L101.9900 ####[facility] [address] [place], [address] MCH (RBC) [Entitic mass] 29.0 pg Normal 27.0-32.0 [facility] Comment on above: Performed By: #### L 501.59239, L3100.5475, L501.9985, L506.0400, L503.6550, L100.0100, L3300.6900, L506.1001, L503.0106, L505.7010, L501.6710, L500.4050, L3100.9100, L501.9520, L503.6030, L101.9900 ####[facility] [address] [place], [address] MCHC (RBC) [Mass/Vol] 33.5 g/dL Normal 32-36 [facility] Comment on above: Performed By: #### L 501.18485, L3100.5475, L501.9985, L506.0400, L503.6550, L100.0100, L3300.6900, L506.1001, L503.0106, L505.7010, L501.6710, L500.4050, L3100.9100, L501.9520, L503.6030, L101.9900 ####[facility] [address] [place], [address] MCV (RBC) [Entitic vol] 86.5 fL Normal 81-99 [facility] Comment on above: Performed By: #### L 501.36166, L3100.5475, L501.9985, L506.0400, L503.6550, L100.0100, L3300.6900, L506.1001, L503.0106, L505.7010, L501.6710, L500.4050, L3100.9100, L501.9520, L503.6030, L101.9900 ####[facility] [address] [place], [address] Monocytes/100 WBC (Bld) 6.1 % Normal 0-10 [facility] Comment on above: Performed By: #### L 501.09358, L3100.5475, L501.9985, L506.0400, L503.6550, L100.0100, L3300.6900, L506.1001, L503.0106, L505.7010, L501.6710, L500.4050, L3100.9100, L501.9520, L503.6030, L101.9900 ####[facility] [address] [place], [address] Neutrophils/100 WBC (Bld) 57.0 % Normal 47-70 [facility] Comment on above: Performed By: #### L 501.54342, L3100.5475, L501.9985, L506.0400, L503.6550, L100.0100, L3300.6900, L506.1001, L503.0106, L505.7010, L501.6710, L500.4050, L3100.9100, L501.9520, L503.6030, L101.9900 ####[facility] [address] [place], [address] Nucleated RBC (Bld) [#/Vol] 0 10*3/uL Normal 0-5 [facility] Comment on above: Performed By: #### L 501.79515, L3100.5475, L501.9985, L506.0400, L503.6550, L100.0100, L3300.6900, L506.1001, L503.0106, L505.7010, L501.6710, L500.4050, L3100.9100, L501.9520, L503.6030, L101.9900 ####[facility] [address] [place], [address] Platelet mean volume (Bld) [Entitic vol] 10.2 fL Normal 6.2-12.0 [facility] Comment on above: Performed By: #### L 501.14949, L3100.5475, L501.9985, L506.0400, L503.6550, L100.0100, L3300.6900, L506.1001, L503.0106, L505.7010, L501.6710, L500.4050, L3100.9100, L501.9520, L503.6030, L101.9900 ####[facility] [address] [place], [address] Platelets (Bld) [#/Vol] 393 10*3/uL Normal 150-450 [facility] Comment on above: Performed By: #### L 501.14558, L3100.5475, L501.9985, L506.0400, L503.6550, L100.0100, L3300.6900, L506.1001, L503.0106, L505.7010, L501.6710, L500.4050, L3100.9100, L501.9520, L503.6030, L101.9900 ####[facility] [address] [place], [address] RBC (Bld) [#/Vol] 4.45 10*6/uL Normal 4.2-5.4 [facility] Comment on above: Performed By: #### L 501.00998, L3100.5475, L501.9985, L506.0400, L503.6550, L100.0100, L3300.6900, L506.1001, L503.0106, L505.7010, L501.6710, L500.4050, L3100.9100, L501.9520, L503.6030, L101.9900 ####[facility] [address] [place], [place], [phone] RDW SD 41.7 fl Normal 35.1-43.9 [facility] Comment on above: Performed By: #### L 501.23419, L3100.5475, L501.9985, L506.0400, L503.6550, L100.0100, L3300.6900, L506.1001, L503.0106, L505.7010, L501.6710, L500.4050, L3100.9100, L501.9520, L503.6030, L101.9900 ####[facility] [address] [place], [place], [phone] WBC (Bld) [#/Vol] 6.9 10*3/uL Normal 4.4-11.0 [facility] Comment on above: Performed By: #### L 501.88072, L3100.5475, L501.9985, L506.0400, L503.6550, L100.0100, L3300.6900, L506.1001, L503.0106, L505.7010, L501.6710, L500.4050, L3100.9100, L501.9520, L503.6030, L101.9900 ####[facility] [address] [place], [place], [phone] CRPon 07-06-2025 C-REACTIVE PROT 3.04 mg/L High 0.0-3.0 [facility] Comment on above: Performed By: #### L 501.25694, L3100.5475, L501.9985, L506.0400, L503.6550, L100.0100, L3300.6900, L506.1001, L503.0106, L505.7010, L501.6710, L500.4050, L3100.9100, L501.9520, L503.6030, L101.9900 ####[facility] [address] [place], [place], [phone] Comprehensive Metabolic [facility] 07-06-2025 Albumin [Mass/Vol] 4.2 g/dL Normal 3.5-5.0 [facility] Comment on above: Performed By: #### L 501.81200, L3100.5475, L501.9985, L506.0400, L503.6550, L100.0100, L3300.6900, L506.1001, L503.0106, L505.7010, L501.6710, L500.4050, L3100.9100, L501.9520, L503.6030, L101.9900 ####[facility] [address] [place], [place], [phone] Albumin/Globulin [Mass ratio] 1.4 {ratio} Normal 0.9-2.4 [facility] Comment on above: Performed By: #### L 501.19873, L3100.5475, L501.9985, L506.0400, L503.6550, L100.0100, L3300.6900, L506.1001, L503.0106, L505.7010, L501.6710, L500.4050, L3100.9100, L501.9520, L503.6030, L101.9900 ####[facility] [address] [place], [place], [phone] ALK PHOS 73 U/L Normal 35-104 [facility] Comment on above: Performed By: #### L 501.64079, L3100.5475, L501.9985, L506.0400, L503.6550, L100.0100, L3300.6900, L506.1001, L503.0106, L505.7010, L501.6710, L500.4050, L3100.9100, L501.9520, L503.6030, L101.9900 ####[facility] [address] [place], [place], [phone] ALT [Catalytic activity/Vol] 28 U/L Normal <=34 [facility] Comment on above: Performed By: #### L 501.18927, L3100.5475, L501.9985, L506.0400, L503.6550, L100.0100, L3300.6900, L506.1001, L503.0106, L505.7010, L501.6710, L500.4050, L3100.9100, L501.9520, L503.6030, L101.9900 ####[facility] [address] [place], [address] AST [Catalytic activity/Vol] 20 U/L Normal <=31 [facility] Comment on above: Performed By: #### L 501.87348, L3100.5475, L501.9985, L506.0400, L503.6550, L100.0100, L3300.6900, L506.1001, L503.0106, L505.7010, L501.6710, L500.4050, L3100.9100, L501.9520, L503.6030, L101.9900 ####[facility] [address] [place], [address] Bilirubin [Mass/Vol] 0.20 mg/dL Normal 0.00-1.30 [facility] Comment on above: Performed By: #### L 501.69241, L3100.5475, L501.9985, L506.0400, L503.6550, L100.0100, L3300.6900, L506.1001, L503.0106, L505.7010, L501.6710, L500.4050, L3100.9100, L501.9520, L503.6030, L101.9900 ####[facility] [address] [place], [address] BUN/CRE 19.5 RATIO Normal 10-20 [facility] Comment on above: Performed By: #### L 501.94370, L3100.5475, L501.9985, L506.0400, L503.6550, L100.0100, L3300.6900, L506.1001, L503.0106, L505.7010, L501.6710, L500.4050, L3100.9100, L501.9520, L503.6030, L101.9900 ####[facility] [address] [place], [address] Calcium [Mass/Vol] 9.3 mg/dL Normal 7.6-11.0 [facility] Comment on above: Performed By: #### L 501.04277, L3100.5475, L501.9985, L506.0400, L503.6550, L100.0100, L3300.6900, L506.1001, L503.0106, L505.7010, L501.6710, L500.4050, L3100.9100, L501.9520, L503.6030, L101.9900 ####[facility] [address] [place], [address] Chloride [Moles/Vol] 104 mmol/L Normal 98-108 [facility] Comment on above: Performed By: #### L 501.51587, L3100.5475, L501.9985, L506.0400, L503.6550, L100.0100, L3300.6900, L506.1001, L503.0106, L505.7010, L501.6710, L500.4050, L3100.9100, L501.9520, L503.6030, L101.9900 ####[facility] [address] [place], [place], [phone] CO2 [Moles/Vol] 20.2 mmol/L Low 21.0-32.0 [facility] Comment on above: Performed By: #### L 501.00339, L3100.5475, L501.9985, L506.0400, L503.6550, L100.0100, L3300.6900, L506.1001, L503.0106, L505.7010, L501.6710, L500.4050, L3100.9100, L501.9520, L503.6030, L101.9900 ####[facility] [address] [place], [address] Creatinine [Mass/Vol] 0.67 mg/dL Low 0.70-1.20 [facility] Comment on above: Performed By: #### L 501.85998, L3100.5475, L501.9985, L506.0400, L503.6550, L100.0100, L3300.6900, L506.1001, L503.0106, L505.7010, L501.6710, L500.4050, L3100.9100, L501.9520, L503.6030, L101.9900 ####[facility] [address] [place], [place], [phone] GAP 12 Normal 5-15 [facility] Comment on above: Performed By: #### L 501.99892, L3100.5475, L501.9985, L506.0400, L503.6550, L100.0100, L3300.6900, L506.1001, L503.0106, L505.7010, L501.6710, L500.4050, L3100.9100, L501.9520, L503.6030, L101.9900 ####[facility] [address] [facility] [place], [place], [phone] GFR/1.73 sq M.predicted among non-blacks MDRD (S/P/Bld) [Vol rate/Area] 125 mL/min/{1.73_m2} Normal >60 [facility] Comment on above: Result Comment: mL/m in/1.73m2 CKD-EPI Creatinine Equation (2020) Performed By: #### L 501.63569, L3100.5475, L501.9985, L506.0400, L503.6550, L100.0100, L3300.6900, L506.1001, L503.0106, L505.7010, L501.6710, L500.4050, L3100.9100, L501.9520, L503.6030, L101.9900 ####[facility] [address] [facility] [place], [place], [phone] Globulin (S) [Mass/Vol] 3.1 g/dL Normal 2.2-4.2 [facility] Comment on above: Performed By: #### L 501.99511, L3100.5475, L501.9985, L506.0400, L503.6550, L100.0100, L3300.6900, L506.1001, L503.0106, L505.7010, L501.6710, L500.4050, L3100.9100, L501.9520, L503.6030, L101.9900 ####[facility] [address] [place], [place], [phone] Glucose [Mass/Vol] 84 mg/dL Normal 70-99 [facility] Comment on above: Performed By: #### L 501.85584, L3100.5475, L501.9985, L506.0400, L503.6550, L100.0100, L3300.6900, L506.1001, L503.0106, L505.7010, L501.6710, L500.4050, L3100.9100, L501.9520, L503.6030, L101.9900 ####[facility] [address] [place], [address] Potassium [Moles/Vol] 4.1 mmol/L Normal 3.3-5.1 [facility] Comment on above: Performed By: #### L 501.33223, L3100.5475, L501.9985, L506.0400, L503.6550, L100.0100, L3300.6900, L506.1001, L503.0106, L505.7010, L501.6710, L500.4050, L3100.9100, L501.9520, L503.6030, L101.9900 ####[facility] [address] [place], [address] Sodium [Moles/Vol] 136 mmol/L Normal 133-145 [facility] Comment on above: Performed By: #### L 501.48806, L3100.5475, L501.9985, L506.0400, L503.6550, L100.0100, L3300.6900, L506.1001, L503.0106, L505.7010, L501.6710, L500.4050, L3100.9100, L501.9520, L503.6030, L101.9900 ####[facility] [address] [place], [address] T PROT 7.3 g/dL Normal 5.9-8.4 [facility] Comment on above: Performed By: #### L 501.74815, L3100.5475, L501.9985, L506.0400, L503.6550, L100.0100, L3300.6900, L506.1001, L503.0106, L505.7010, L501.6710, L500.4050, L3100.9100, L501.9520, L503.6030, L101.9900 ####[facility] [address] [place], [place], [phone] Urea nitrogen [Mass/Vol] 13 mg/dL Normal 4-19 [facility] Comment on above: Performed By: #### L 501.82478, L3100.5475, L501.9985, L506.0400, L503.6550, L100.0100, L3300.6900, L506.1001, L503.0106, L505.7010, L501.6710, L500.4050, L3100.9100, L501.9520, L503.6030, L101.9900 ####[facility] [address] [place], [place], [phone] Erythrocyte Sed Rateon 07-06 SED RATE 8 mm/hr Normal 0-30 [facility] Comment on above: Performed By: #### L 501.13942, L3100.5475, L501.9985, L506.0400, L503.6550, L100.0100, L3300.6900, L506.1001, L503.0106, L505.7010, L501.6710, L500.4050, L3100.9100, L501.9520, L503.6030, L101.9900 ####[facility] [address] [place], [place], [phone] Ferritinon 07-06-2025 Ferritin [Mass/Vol] 45 ng/mL Normal 22-378 [facility] Comment on above: Performed By: #### L 501.91728, L3100.5475, L501.9985, L506.0400, L503.6550, L100.0100, L3300.6900, L506.1001, L503.0106, L505.7010, L501.6710, L500.4050, L3100.9100, L501.9520, L503.6030, L101.9900 ####[facility] [address] [place], [place], [id number] Free T3on 07-06-2025 Free T3 [Mass/Vol] 3.8 pg/mL Normal 2.18-3.98 [facility] Comment on above: Performed By: #### L 501.05175, L3100.5475, L501.9985, L506.0400, L503.6550, L100.0100, L3300.6900, L506.1001, L503.0106, L505.7010, L501.6710, L500.4050, L3100.9100, L501.9520, L503.6030, L101.9900 ####[facility] [address] [place], [place], [id number] Hemoglobin A1con 07-06-2025 HbA1c (Bld) [Mass fraction] 5.3 % Normal <=5.6 [facility] Comment on above: Result Comment: Norm al < 5.7 % Prediabetic 5.7 - 6.4 % Diabetic >or= 6.5 % Please note range changes. Performed By: #### L 501.73707, L3100.5475, L501.9985, L506.0400, L503.6550, L100.0100, L3300.6900, L506.1001, L503.0106, L505.7010, L501.6710, L500.4050, L3100.9100, L501.9520, L503.6030, L101.9900 ####[facility] [address] [place], [place], [id number] Iron+Iron Binding Capacityon 07-06-2025 Iron [Mass/Vol] 49 ug/dL Low 50-170 [facility] Comment on above: Performed By: #### L 501.74603, L3100.5475, L501.9985, L506.0400, L503.6550, L100.0100, L3300.6900, L506.1001, L503.0106, L505.7010, L501.6710, L500.4050, L3100.9100, L501.9520, L503.6030, L101.9900 ####[facility] [address] [place], [place], [address] IRON SATURATION 17.0 Normal 13-59 [facility] Comment on above: Performed By: #### L 501.01118, L3100.5475, L501.9985, L506.0400, L503.6550, L100.0100, L3300.6900, L506.1001, L503.0106, L505.7010, L501.6710, L500.4050, L3100.9100, L501.9520, L503.6030, L101.9900 ####[facility] [address] [place], [place], [id number] TIBC 290 ug/dL Normal 250-450 [facility] Comment on above: Performed By: #### L 501.18738, L3100.5475, L501.9985, L506.0400, L503.6550, L100.0100, L3300.6900, L506.1001, L503.0106, L505.7010, L501.6710, L500.4050, L3100.9100, L501.9520, L503.6030, L101.9900 ####[facility] [address] [place], [place], [id number] UIBC 241 ug/dL Normal 228-428 [facility] Comment on above: Performed By: #### L 501.04658, L3100.5475, L501.9985, L506.0400, L503.6550, L100.0100, L3300.6900, L506.1001, L503.0106, L505.7010, L501.6710, L500.4050, L3100.9100, L501.9520, L503.6030, L101.9900 ####[facility] [address] [place], [place], [id number] MR/BMS.Chelsey 07-06-2025 MR/BMS. [facility] [address] [place] [address], [address] [place] [address] OFFICE VISIT Date of Service: 07/06/25 MR#: [id number] Acct: [id number] Name: MARTITA RICKETTS Rep #: [id number] : 2000 Provider: SREE kelly Age/Sex: 25/F [place] [facility] [place] Status: Signed Intake Vital Signs 06/10/25 10:24 06/30/25 08:54 07/06/25 06:58 Height 4 ft 8 in 4 ft 8 in 4 ft 8 in BP Intake Visit Reasons: 4-6wfu Allergies dragon fruit Allergy (Intermediate, Verified 06/30/25 08:55) rash Penicillins Allergy (Verified 06/30/25 08:55) Rash fluoxetine (From Prozac) Adverse Reaction (Mild, Verified 06/30/25 08:55) Other Tricyclic Antidepressants and Tricy Adverse Reaction (Verified 06/30/25 08:55) adverse PFSH Medical History Schizoaffective disorder, bipolar [...] 3-4 times per week duration: 30-45 minutes/day leti/sikhism: jewish seatbelt use: always do you feel safe at home: Yes additional social history: -no contact - not HPI History of Present Illness History provided by: patient Chief complaint: Anxiety HPI: Martita Ricketts is a 25 year old female patient presenting today for a virtual follow up evaluation. Reports she recently had a manic episode that lasted close to 2 weeks. Reports during this time she was speaking in excess and rapidly, had a decreased need for sleep, and had a very low mood. Denies any impulsive or risky decisions. Reports she has had some recent triggers such as moving and starting a new job that could contribute to this. Does not feel that she noticed a large difference wince increasing lamotrigine. Reports she is feeling better in some ways due to making some behavioral changes. Has been feeling less depressed recently. Denies SI/HI. Reports she has continued to have heightened anxiety, especially at work. Reports she has had panic attacks since last appointment. Report she is struggling to fall asleep. 5-6 hours per night on average. Appetite has been fluctuating to under eating and then over eating. Weight has been fluctuating as well. This tele-medicine visit was performed via audio/video [...] Reports: anxiety, mood swings, change in sleep pattern and irritability; Denies: panic attacks, hopelessness, loss of interest, paranoia, difficulty concentrating, visual hallucinations, suicidal ideation or homicidal ideation Endocrine Reports: fatigue; Denies: polyuria, polydipsia, cold intolerance or heat intolerance Hematologic/Lymphatic Reports: easy bleeding; Denies: easy bruising Allergic/Immunologic Denies: wheezing Exam Ment (more content not included)... Normal [facility] Pediatrician/Medical Doctor Office Visit Reporton 07-06-2025 Pediatrician/Medical Doctor Office Visit Report [facility], [address] [place] [address] OFFICE VISIT Date of Service: 07/06/25 MR#: [id number] Acct: [id number] Name: MARTITA RICKETTS Rep #: [id number] : 2000 Provider: DORIAN Castellon ams Age/Sex: 25/F Location: [facility] [place] Status: Signed Intake Vital Signs 04/29/25 09:00 06/10/25 10:24 07/06/25 06:58 07/06/25 15:24 Height 4 ft 8 in 4 ft 8 in 4 ft 8 in 4 ft 8 in Weight: 182 lb 6 oz BMI 40.8 BP 109/78 Intake Visit Reasons: Nexplanon Removal Chief Complaint: Nexplanon Removal Supreme Court Judge Required: No Allergies Penicillins Allergy (Verified 07/06/25 15:21) Rash pomegranate Allergy (Verified 07/06/25 15:21) Rash fluoxetine (From Prozac) Adverse Reaction (Mild, Verified 07/06/25 15:21) Other Tricyclic Antidepressants and Tricy Adverse Reaction (Verified 07/06/25 15:21) adverse Medications ???Medication ???Instructions ???Recorded ???Confirmed ???Type cholecalciferol (vitamin D3) 50 50 mcg PO DAILY 05/26/24 07/06/25 History mcg (2,000 unit) capsule ferrous sulfate 325 mg (65 mg 325 mg PO DAILY 06/25/24 07/06/25 History iron) tablet Held on 07/01/24. Instructions: per pt ondansetron HCl 8 mg tablet 8 mg PO Q8H PRN nausea and 06/25/ 4 07/06/25 Rx vomiting #20 tabs quetiapine 100 mg tablet 100 mg PO QHS #90 tabs 02/19/25 Rx clonidine HCl 0.1 mg tablet 0.1 mg PO BID PRN anxiety #180 tab s 03/23/25 07/06/25 Rx quetiapine 50 mg tablet 50 mg PO QDAY #90 tabs 04/29/25 Rx hydroxyzine HCl 50 mg tablet 50 mg PO QHS #30 tabs 06/10/2504/25 Rx escitalopram oxalate 5 mg tablet 5 mg PO QDAY #30 tabs 07/06/2504/25 Rx lamotrigine 150 mg tablet 150 mg PO QDAY #90 tabs 07/06/25 0 07/06/25 Rx Is last menstrual period known: Yes Last Menstrual Period: 06/21/25 Post menopausal: No Patient : No : No Control Method: Vasectomy PFSH PFSH Medical History Schizoaffective disorder, bipolar [...] 3-4 times per week duration: 30-45 minutes/day leti/sikhism: jewish seatbelt use: always do you feel safe at home: Yes additional social history: -no contact - not History Past Pregnancies Del. Date Name GA/Weeks Outcome Route Bth Weight Infant Gen Labor Lgth Anesthesia Del Locatn Provider FOB Unknown Nav HPI Nexplanon Removal Details: MARTITA RICKETTS is a 25 year old who presents for nexplanon removal. had vasectomy and patient no longer needs contraception. Female Reproductive History Last Menstrual Period: 06/21/25 ROS Const Constitutional: Reports system reviewed and no additional complaints, except as documented Cardio Card: Reports system reviewed and no additional complaints, except as documented Resp Resp: Reports system reviewed and no additional complaints, except as documented GI GI: Reports system reviewed and no additional complaints, except as documented : Reports system reviewed and no additional complaints, except as documented Musc Musc: Reports system reviewed and no additional complaints, except as documented Skin Skin/Breast: Reports system reviewed and no additional complaints, except as documented Neuro Neuro: Reports system reviewed and no additional complaints, except as documented Psych Psych: Reports system reviewed and no additional complaints, except as documented Endo Endo: Reports system reviewed and no additional complaints, except as documented Tye/Lymph Hematologic/Lymphatic: Reports system reviewed and no additional complaints, except as documented Aller/Immun Allergic/Immunologic: Reports system reviewed and no additional complaints, except as documented Exam Const General: cooperative, healthy appearing and comfortable Neck Neck: normal visual inspection and full R (more content not included)... Normal [facility] Rheumatoid Factoron 07-06-20 RHEUMATOID FAC < 10.0 Normal <15 [facility] Comment on above: Performed By: #### L 501.65098, L3100.5475, L501.9985, L506.0400, L503.6550, L100.0100, L3300.6900, L506.1001, L503.0106, L505.7010, L501.6710, L500.4050, L3100.9100, L501.9520, L503.6030, L101.9900 ####[facility] [address] [place], [place], [id number] T4 Free Directon 07-06-2025 T4 FREE DIRECT 1.20 ng/dL Normal 0.76-1.46 [facility] Comment on above: Performed By: #### L 501.15896, L3100.5475, L501.9985, L506.0400, L503.6550, L100.0100, L3300.6900, L506.1001, L503.0106, L505.7010, L501.6710, L500.4050, L3100.9100, L501.9520, L503.6030, L101.9900 ####[facility] [address] [place], [place], [id number] Thyroid Stim Hormone (TSH)on 07-06-2025 TSH 1.600 uIU/mL Normal 0.300-4.200 [facility] Comment on above: Performed By: #### L 501.00137, L3100.5475, L501.9985, L506.0400, L503.6550, L100.0100, L3300.6900, L506.1001, L503.0106, L505.7010, L501.6710, L500.4050, L3100.9100, L501.9520, L503.6030, L101.9900 ####[facility] [address] [place], [place], [id number] Vitamin B12on 07-06-2025 Cobalamin (Vitamin B12) [Mass/Vol] 645 pg/mL Normal 180-914 [facility] Comment on above: Performed By: #### L 501.56263, L3100.5475, L501.9985, L506.0400, L503.6550, L100.0100, L3300.6900, L506.1001, L503.0106, L505.7010, L501.6710, L500.4050, L3100.9100, L501.9520, L503.6030, L101.9900 ####[facility] [address] [place], [place], [id number] Vitamin D,25 Hydroxyon 07-06 Vitamin D 25-OH 30.3 ng/mL Normal 30-100 [facility] Comment on above: Result Comment: Sonam min D Status Deficiency: <20 ng/mL (50nmol/L) Insufficiency: 20-30 ng/mL (50-75 nmol/L) Sufficiency: 30-100 ng/mL (75-250 nmol/L) Toxicity: >100 ng/mL (>250 nmol/L) Performed By: #### L 501.06215, L3100.5475, L501.9985, L506.0400, L503.6550, L100.0100, L3300.6900, L506.1001, L503.0106, L505.7010, L501.6710, L500.4050, L3100.9100, L501.9520, L503.6030, L101.9900 ####[facility] [address] [place], [address] Emergency Department Summary on 06-30-2025 Emergency Department Summary [facility] Medical Records Department [address] [place] [address] Emergency Department Summary 06/30/25 MR#: [id number] Acct: [id number] Name: MARTITA RICKETTS Rep #: [id number] : 2000 25 From: Shine Van MD PCP: YASMEEN Silva, SALES DEVELOPMENT REPRESENTATIVE-C Status:REG ER Location: ED HPI History of Present Illness Chief Complaint: Headache Narrative Narrative: 25-year-old female past medical history of migraine headaches presents with migraine headache that she has had for the last 3 weeks. Multiple medications have been ineffective in treating it. She states that she had taken sumatriptan hand without effect and that her primary care provider who is managing her headaches tried a different type of triptan. Of note, she was seen in the emergency department 2 weeks ago and had a CT of the brain which was negative. She states she has had ongoing headaches, and developed paresthesias of her bilateral arms. She has an appointment with a neurologist in [place] tomorrow. She currently rates her headache an 8 out of 10. No exacerbating or alleviating factors. Before 2 weeks ago the last time she had been in the emergency department for her migraine headache was a year prior. While she states that she has a headache all over radiating to her neck, mainly on the left side. [facility] Medical History Schizoaffective disorder, bipolar type Asthma Generalized anxiety disorder PTSD (post-traumatic stress disorder) delivery delivered Depression Diabetes Migraine TBI (traumatic brain injury) Home Medications ???Medication ???Instructions ???Recorded ???Last Taken ???Type cholecalciferol (vitamin D3) 50 50 mcg PO DAILY 05/26/24 Unknown H istory mcg (2,000 unit) capsule magnesium oxide 500 mg capsule 500 mg PO DAILY 05/26/24 Unknown H istory ferrous sulfate 325 mg (65 mg 325 mg PO DAILY 06/25/24 Unknown H istory iron) tablet Held on 07/01/24. Instructions: per pt ondansetron HCl 8 mg tablet 8 mg PO Q8H PRN nausea and 4 Unknown Rx vomiting #20 tabs theanine 200 mg capsule mg PO 06/25/24 Unknown History omeprazole 40 mg capsule,delayed 40 mg PO DAILY #30 caps 06/30/24 U nknown Rx release quetiapine 100 mg tablet 100 mg PO QHS #90 tabs 02/19/25 Un known Rx clonidine HCl 0.1 mg tablet 0.1 mg PO BID PRN anxiety #180 tab s 03/23/25 Unknown Rx quetiapine 50 mg tablet 50 mg PO QDAY #90 tabs 04/29/25 Un known Rx buspirone 10 mg tablet 10 mg PO TID #90 tabs 05/20/25 Unk nown Rx hydroxyzine HCl 50 mg tablet 50 mg PO QHS #30 tabs 06/10/25 Unk nown Rx lamotrigine 150 mg tablet 150 mg PO QDAY #30 tabs 06/10/25 U nknown Rx Allergy/AdvReac Type Severity Reaction Status Date / Time dragon fruit Allergy Intermediate rash Verified 06/30/25 08:55 Penicillins Allergy Rash Verified 06/30/25 08:55 fluoxetine (From Prozac) AdvReac Mild Other Verified 06/30/25 08:55 Tricyclic Antidepressants AdvReac adverse Verified 06/30/25 08:55 and Tricy Surgical History H/O section History of appendectomy [...] 3-4 times per week duration: 30-45 minutes/day leti/sikhism: jewish seatbelt use: always do you feel safe at home: Yes additional social history: -no contact - not ROS ROS ED ROS Narrative Review of systems positive for 3 weeks of headache, positive paresthesias of bilateral upper extremities. Positive photophobia and phonophobia. No exacerbating or alleviating factors. Rates 8 out of 10 pain. Previous history of migraine headaches. EXAM Physical Exam Narrative Exam Narrative: Afebrile. Vital signs noted. Nontoxic-appearing. Cardiovascular examination reveals a regular rate and rhythm. Lungs are clear to auscultation bilaterally. Abdomen is soft and nontender without guarding or rebound. Positive bowel sounds. Neurological examination nonfocal, nonlateralizing, alert, awake, oriented x 3. EHL intact bilaterally. Patellar DTRs equal and symmetric. Const Vital Signs: 06/30/25 08:54 06/30/25 10:54 Temperature 96.8 F L Temperature Source Temporal Pulse Rate 81 81 (more content not included)... [facility] Office Visit ([facility]) MARTITA RICKETTS ([id number]) 2 F T Date Time Provider Department 06/29/25 5:00 PM BERNIE FANG [facility] During your visit today, we recorded the following information about you: Temperature Pulse Respiration Blood pressure 98.1 degrees 90/minute 16/minute 124/72 Weight 81.6 kg Bernie Fang PA 06/29/2025 5:25 PM Signed [facility] Subjective Martita Ricketts is a 25 year old female. Patient presents with: Cough: x couple weeks, sinus pressure x today, back pain saw chiropractor Saturday-spasms HPI Back Pain: - New onset back pain, described as burning and shooting down the spine. - Mid-back pain is worst - Chiropractor noted muscle spasms in a few areas. - Pain has slightly improved since chiropractic treatment on Saturday. - No recent known trauma or injury to the back. - Denies chronic back issues. - Pain radiates to the neck. - No loss of bowel/bladder function. - Occasional tingling fingers and toes. Congestion and Cough: - Congestion and sinus pressure began today. - Cough has persisted for three weeks, described as dry and unrelenting. - Yellow mucus noted when blowing nose. - Denies fever; reports chills. - History of asthma and allergies. Review of Systems Constitutional: (+) chills, (-) fever Head: (+) headache Ears/Nose/Mouth/Throat : (+) nasal congestion, (+) yellow nasal discharge, (+) sinus pressure Neck: (+) neck pain Respiratory: (+) dry cough Musculoskeletal: (+) mid back pain, (+) burning spinal pain Neurological: (+) numbness in fingers, (+) numbness in toes Objective BP 124/72 Pulse 90 Temp 36.7 ?C (98.1 ?F) Resp 16 Wt 81.6 kg (179 lb 14.3 oz) LMP 02/17/2023 (Exact Date) SpO2 98% Physical Exam Vitals and nursing note reviewed. Constitutional: General: She is not in acute distress. Appearance: Normal appearance. She is not toxic-appearing. HENT: Right Ear: Tympanic membrane and ear canal normal. Left Ear: Tympanic membrane and ear canal normal. Nose: Congestion present. Mouth/Throat: Mouth: Mucous membranes are moist. Pharynx: No oropharyngeal exudate or posterior oropharyngeal erythema. Eyes: Conjunctiva/sclera: Conjunctivae normal. Cardiovascular: Rate and Rhythm: Normal rate and regular rhythm. Pulmonary: Effort: Pulmonary effort is normal. Breath sounds: Normal breath sounds. No wheezing, rhonchi or rales. Musculoskeletal: Thoracic back: Spasms and tenderness present. No bony tenderness. Normal range of motion. Comments: Thoracic muscle tenderness and mild spasms noted. No midline tenderness. Normal ambulation. Normal sensation upper and lower extremities. Neurological: Mental Status: She is alert. General: No acute distress. HEENT: Oropharynx clear, sinus tenderness to palpation. Back: Paraspinal muscle tightness. { 1. Acute cough (R05.1) - Persistent dry cough with new onset of yellow nasal discharge and sinus congestion; no fevers, but reports chills. - History of asthma and allergies. - Ordered chest X-ray to rule out pneumonia and determine if antibiotics are necessary. - Will call patient with results of chest X-ray. 2. Muscle spasm of back (M62.830) - Acute mid-back pain with muscle spasm noted on exam; pain has persisted since Saturday despite care management coordinator. - Start muscle relaxant; advised patient not to drive while taking medication due to potential drowsiness. - Advised follow-up with primary care physician for further management. and Recording using My [employer]% software for draft documentation of the visit was discussed with the patient/authorized route sales representative; all questions welcomed and answered. Patient/authorized route sales representative agreed to proceed Diagnosis and treatment plan were discussed and questions were answered to the patient's satisfaction. Pt acknowledged understanding of concepts and follow up plan. Specific signs and symptoms that would indicate the need for higher level of care were discussed in detail warranting prompt ER evaluation. History and Record Review External record(s) reviewed: prior outpatient record. Differential Diagnoses - Viral cough/URI is more likely for the following reason(s): suggested by HANDP - Muscle strain/spasm is more likely for the following reason(s): suggested by HANDP - Cauda equina is less likely for the following reason(s): HANDP not suggestive - Fracture is less likely for the following reason(s): HANDP not suggestive - Pneumonia is less likely for the following reason(s): Awaiting x-ray result Disposition The patient was discharged. Procedures Allergies As of Date: 06/29/2025 Noted Allergy Reaction OMNICEF (CEFDINIR) 03/18/2015 14 - Other: See Comments Comments: Dizziness, feeling not right PENICILLINS 01/14/2009 2 - Rash PROZAC (FLUOXETINE HCL) 09/02/2014 14 - Other: (more content not included)... Normal [facility] XR CHEST 2V FRONTAL/LATon XR CHEST 2V FRONTAL/LAT * * *Final Repor t* * * DATE OF EXAM: Jun 29 2025 5:32PM WOX 5291 - XR CHEST 2V FRONTAL/LAT / PROCEDURE REASON: Acute cough * * * * Physician Interpretation * * * * EXAMINATION: CHEST RADIOGRAPH (2 VIEW FRONTAL and LATERAL) CLINICAL HISTORY: Acute cough MQ: XC2_6 EXAM DATE/TIME: 06/29/2025 5:32 PM COMPARISON: No relevant prior studies available. RESULT: Lines, tubes, and devices: None. Lungs and pleura: No consolidation. No lung mass. No pleural effusion. No pneumothorax. Cardiomediastinal silhouette: Normal cardiomediastinal silhouette. Bones and soft tissues: Unremarkable. IMPRESSION: No acute radiographic abnormality. Fire Captain: [employer] Transcribe Date/Time: Jun 29 2025 5:53P Dictated by : SUMMER SHI MD This examination was interpreted and the report reviewed and electronically signed by: SUMMER SHI MD on Jun 29 2025 5:54PM EST [id number] Normal [facility] XR Chest PA and Lateralon IMPRESSION: No acute radiographic abnormality. Fire Captain: PSCB Transcribe Date/Time: Jun 29 2025 5:53P Dictated by : SUMMER SHI MD This examination was interpreted and the report reviewed and electronically signed by: SUMMER SHI MD on Jun 29 2025 5:54PM EST DIVISION OF RADIOLOGY * * *Final Report* * * DATE OF EXAM: Jun 29 2025 5:32PM WOX 5291 - XR CHEST 2V FRONTAL/LAT / PROCEDURE REASON: Acute cough * * * * Physician Interpretation * * * * EXAMINATION: CHEST RADIOGRAPH (2 VIEW FRONTAL & LATERAL) CLINICAL HISTORY: Acute cough MQ: XC2_6 EXAM DATE/TIME: 06/29/2025 5:32 PM COMPARISON: No relevant prior studies available. RESULT: Lines, tubes, and devices: None. Lungs and pleura: No consolidation. No lung mass. No pleural effusion. No pneumothorax. Cardiomediastinal silhouette: Normal cardiomediastinal silhouette. Bones and soft tissues: Unremarkable. DIVISION OF RADIOLOGY Provider, Ami hudson [place] - 06/29/2025 * * *Final Report* * * DATE OF EXAM: Jun 29 2025 5:32PM WOX 5291 - XR CHEST 2V FRONTAL/LAT / PROCEDURE REASON: Acute cough * * * * Physician Interpretation * * * * EXAMINATION: CHEST RADIOGRAPH (2 VIEW FRONTAL & LATERAL) CLINICAL HISTORY: Acute cough MQ: XC2_6 EXAM DATE/TIME: 06/29/2025 5:32 PM COMPARISON: No relevant prior studies available. RESULT: Lines, tubes, and devices: None. Lungs and pleura: No consolidation. No lung mass. No pleural effusion. No pneumothorax. Cardiomediastinal silhouette: Normal cardiomediastinal silhouette. Bones and soft tissues: Unremarkable. IMPRESSION IMPRESSION: No acute radiographic abnormality. Fire Captain: PSCB Transcribe Date/Time: Jun 29 2025 5:53P Dictated by : SUMMER SHI MD This examination was interpreted and the report reviewed and electronically signed by: SUMMER SHI MD on Jun 29 2025 5:54PM EST [facility] Radiology Study observation (narrative) Paola tejeda [facility] XR Chest PA and LateralOrder ed By: [facility] Provider on 06-29-2025 [facility] Office Visit Reporton 2024 Office Visit Report [facility] [place] [address] 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 Chief Complaint: 3m f/u Allergies dragon fruit Allergy (Intermediate, Verified 06/17/25 19:57) rash Penicillins Allergy (Verified 06/17/25 19:57) Rash fluoxetine (From Prozac) Adverse Reaction (Mild, Verified 06/17/25 19:57) Other Tricyclic Antidepressants and Tricy Adverse Reaction (Verified 06/17/25 19:57) adverse Office Procedures [facility] Billing Sheet Testing Pre-Employment Drug Screen: Yes 06/22/25 1129 A> Date Ling Ga Signature: Date (if applicable) CC: Normal [facility] Brain/Head without Contrasto n 06-17-2025 Brain/Head without Contrast [facility] Imaging Services [address] [place] [id number] Brain/Head without Contrast MR#: [id number] Acct: [id number] Name: MARTITA RICKETTS Rep #: [id number] : 2000 F 25 From: Timothy Hartmann MD PCP: YASMEEN Silva, SALES DEVELOPMENT REPRESENTATIVE-C Status: REG ER Study: Brain/Head without Contrast Date of Exam: 06/01 06/25 Exam# [id number] Ordering Dr: Lobito Donnelly DO PROCEDURE: BRAIN/HEAD WITHOUT CONTRAST 06/17/2025 REASON FOR EXAM: HEADACHE TECHNIQUE: BRAIN/HEAD WITHOUT CONTRAST Coronal and Sagittal reconstruction series were provided. One or more dose reduction techniques were used (e.g., Automated exposure control, adjustment of the mA and/or kV according to patient size, use of iterative reconstruction technique. RADIATION DOSE SUMMARY: CTDlvol: 44.99 mGy DLP: 796.11 mGycm COMPARISON: CT head 09/17/2023, brain MRI 02/01/2021. FINDINGS: No acute intracranial hemorrhage, extra-axial collection, mass effect or evidence of acute infarct. Ventricles and subarachnoid spaces are normal in size. Orbital contents are unremarkable. Intact skull base and calvarium. Clear paranasal sinuses and mastoid air cells. CT/Brain/Head without Contrast IMPRESSION: Normal head CT. Reading Location: [id number] CC: Shivani SALES DEVELOPMENT REPRESENTATIVE-C Magda Kelly; Dr. Lobito Donnelly DO Fire Captain: Signed Normal [facility] Emergency Department Summary on 06-17-2025 Emergency Department Summary [facility] Medical Records Department [address] [place] [address] Emergency Department Summary 06/17/25 MR#: [id number] Acct: [id number] Name: MARTITA RICKETTS Rep #: [id number] : 2000 25 From: Lobito Donnelly DO PCP: YASMEEN Silva, SALES DEVELOPMENT REPRESENTATIVE-C Status:REG ER Location: ED HPI History of Present Illness Chief Complaint: Headache Narrative Narrative: Chief complaint and HPI: Headache. 25-year-old female with past medical history of migraines, TBI, PTSD, schizoaffective disorder presents for evaluation of headache. Patient states she has a history of migraines in which her primary care physician manages. She states she was recently referred to neurology but has yet to be seen. She states that she was recently started on a new medication for her migraines as well as prednisone. States she took a sumatriptan earlier today. Associated symptoms are nausea, light sensitivity, sound sensitivity. Called her primary care physician who told her to come to the emergency department as headache was not improving. She denies any recent trauma. Denies any fever, chills, URI symptoms, syncope, presyncope, chest pain, shortness of breath, numbness/tingling, weakness, neurological deficit. Not . Review of systems: See HPI Medications: As listed on the chart Allergies: As listed on the chart PFSH: Per chart Vital signs: As listed on the chart. Reviewed. Physical exam: Gen: A O x3, NAD Head: Normocephalic, atraumatic Eyes: No sclera icterus, conjunctiva clear, PERRL, EOMI ENT: TMs clear BL, moist mucous membranes, no facial tenderness, no temporal artery tenderness Neck: Trachea midline, No JVD, Full ROM, No meningismus CV: RRR, no murmurs Resp: Lungs CTA BL, no w/r/c GI: Abd soft, non-distended, non-tender, no r/r/g Musc: Full ROM, no deformity, strength +5/5 Skin: Warm, dry, no rash Neuro: Alert, oriented, grossly intact, sensation intact Psych: Cooperative, appropriate mood and affect [facility] Medical History Schizoaffective disorder, bipolar type Asthma Generalized anxiety disorder PTSD (post-traumatic stress disorder) delivery delivered Depression Diabetes Migraine TBI (traumatic brain injury) Home Medications ???Medication ???Instructions ???Recorded ???Last Taken ???Type cholecalciferol (vitamin D3) 50 50 mcg PO DAILY 05/26/24 Unknown H istory mcg (2,000 unit) capsule magnesium oxide 500 mg capsule 500 mg PO DAILY 05/26/24 Unknown H istory ferrous sulfate 325 mg (65 mg 325 mg PO DAILY 06/25/24 Unknown H istory iron) tablet Held on 07/01/24. Instructions: per pt ondansetron HCl 8 mg tablet 8 mg PO Q8H PRN nausea and 4 Unknown Rx vomiting #20 tabs theanine 200 mg capsule mg PO 06/25/24 Unknown History omeprazole 40 mg capsule,delayed 40 mg PO DAILY #30 caps 06/30/24 U nknown Rx release quetiapine 100 mg tablet 100 mg PO QHS #90 tabs 02/19/25 Un known Rx clonidine HCl 0.1 mg tablet 0.1 mg PO BID PRN anxiety #180 tab s 03/23/25 Unknown Rx quetiapine 50 mg tablet 50 mg PO QDAY #90 tabs 04/29/25 Un known Rx buspirone 10 mg tablet 10 mg PO TID #90 tabs 05/20/25 Unk nown Rx hydroxyzine HCl 50 mg tablet 50 mg PO QHS #30 tabs 06/10/25 Unk nown Rx lamotrigine 150 mg tablet 150 mg PO QDAY #30 tabs 07/10/25 U nknown Rx Allergy/AdvReac Type Severity Reaction Status Date / Time dragon fruit Allergy Intermediate rash Verified 06/17/25 19:57 Penicillins Allergy Rash Verified 06/17/25 19:57 fluoxetine (From Prozac) AdvReac Mild Other Verified 06/17/25 19:57 Tricyclic Antidepressants AdvReac adverse Verified 06/17/25 19:57 and Tricy Surgical History H/O section History of appendectomy [...] 3-4 times per week duration: 30-45 minutes/day leti/sikhism: jewish seatbelt use: always do you feel safe at home: Yes additional social history: -no contact - not EXAM Physical Exam Const Vital Signs: 06/17/25 19:54 06/17/25 21:53 Temperature 98.3 F Temperature Source Temporal (more content not included)... Normal [facility] MR/BMS.BPon 06-10-2025 MR/BMS.[facility] [address] [place] [address], [address] [place] [address] OFFICE VISIT Date of Service: 06/10/25 MR#: [id number] Acct: [id number] Name: MARTITA RICKETTS Rep #: [id number] : 2000 Provider: SREE kelly Age/Sex: 25/F Location: [facility] Status: Signed Intake Vital Signs 04/29/25 09:00 [...] Tricy Adverse Reaction (Verified 04/07/25 10:24) adverse [facility] Medical History Schizoaffective disorder, bipolar [...] 3-4 times per week duration: 30-45 minutes/day leti/sikhism: jewish seatbelt use: always do you feel safe at home: Yes additional social history: -no contact - not HPI History of Present Illness History provided by: patient Chief complaint: Anxiety HPI: Martita Ricketts is a 25 year old female patient [...] apparent distress (more content not included)... Normal [facility] Vitamin B12on 05-13-2025 Cobalamin (Vitamin B12) [Mass/Vol] 492 pg/mL Normal 180-914 [facility] Comment on above: Performed By: #### L 503.0106, L506.1001 #### [facility] [address] [place], [address] Vitamin D,25 Hydroxyon 05-13 Vitamin D 25-OH 22.4 ng/mL Low 30-100 [facility] Comment on above: Result Comment: Sonam min D Status Deficiency: <20 ng/mL (50nmol/L) Insufficiency: 20-30 ng/mL (50-75 nmol/L) Sufficiency: 30-100 ng/mL (75-250 nmol/L) Toxicity: >100 ng/mL (>250 nmol/L) Performed By: #### L 503.0106, L506.1001 ####[facility] [address] [place], [address] MR/BMS.BPon 04-29-2025 MR/BMS.BP [address], [address] [place] [address] OFFICE VISIT Date of Service: 04/29/25 MR#: [id number] Acct: [id number] Name: MARTITA RICKETTS Rep #: [id number] : 2000 Provider: SREE kelly Age/Sex: 25/F [place] [facility] Status: Signed Intake Vital Signs 04/07/25 10:36 [...] Tricy Adverse Reaction (Verified 04/07/25 10:24) adverse [facility] Medical History Schizoaffective disorder, bipolar type Asthma [...] 3-4 times per week duration: 30-45 minutes/day leti/sikhism: jewish seatbelt use: always do you feel safe at home: Yes additional social history: -no contact - not HPI History of Present Illness History provided by: patient Chief complaint: Irritability HPI: Martita Ricketts is a 25 year old female patient [...] feeling less hopeless. Has been using the Volof[employer] ced which has been beneficial for her in goal tracking and keeping her motivated in tasks and goal. Admits to some passive SI and feels this is often triggered by grief around the loss of her father. Does report struggling more recently to fall asleep. 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 When she is not working is getting [...] difficulty con (more content not included)... Normal [facility] RON w/ Reflex Mult Confirmon 04-13-2025 ANTI-DNA (DS)AB TNP [facility] Comment on above: Performed By: #### L 101.9900, L3100.5850, L500.4050, L501.9520, L501.6710, L700.6800, L3100.5450, L100.0100 ####[facility] [address] [place], [place], [phone] ANTI-SS-A TNP [facility] Comment on above: Performed By: #### L 101.9900, L3100.5850, L500.4050, L501.9520, L501.6710, L700.6800, L3100.5450, L100.0100 ####[facility] [address] [place], [address] ANTI-SS-B TNP Normal [facility] Comment on above: Performed By: #### L 101.9900, L3100.5850, L500.4050, L501.9520, L501.6710, L700.6800, L3100.5450, L100.0100 ####[facility] [address] [place], [place], [phone] EBV Acute Prof IgG / IgMon 0 - EB Ab VCA, IgG 388.0 U/mL High 0.0-17.9 [facility] Comment on above: Result Comment: Nega tive <18.0 Equivocal 18.0 - 21.9 Positive >21.9 Performed By: #### L 101.9900, L3100.5850, L500.4050, L501.9520, L501.6710, L700.6800, L3100.5450, L100.0100 ####[facility] [address] [place], [place], [phone] EBV Ab VCA, IgM < 36.0 Normal 0.0-35.9 [facility] Comment on above: Result Comment: Nega tive <36.0 Equivocal 36.0 - 43.9 Positive >43.9 Performed By: #### L 101.9900, L3100.5850, L500.4050, L501.9520, L501.6710, L700.6800, L3100.5450, L100.0100 ####[facility] [address] [place], [place], [phone] EBV NuAg Ab,IgG 56.2 U/mL High 0.0-17.9 [facility] Comment on above: Result Comment: Nega tive <18.0 Equivocal 18.0 - 21.9 Positive >21.9 Performed By: #### L 101.9900, L3100.5850, L500.4050, L501.9520, L501.6710, L700.6800, L3100.5450, L100.0100 ####[facility] [address] [place], [place], [phone] INTERPRETATION Comment Normal . [facility] Comment on above: Result Comment: EBV Interpretation [...] never develop antibodies to EBNA. Performed at: [address] [id number] [employer] Worker: Jorge Cadena PhD, Phone: [phone] Performed By: #### L 101.9900, L3100.5850, L500.4050, L501.9520, L501.6710, L700.6800, L3100.5450, L100.0100 ####[facility] [address] [place], [place], [phone] CBC W/Diff, Automatedon 05-0 -2024 Absolute Lymph 1.79 X10 3/uL Normal 0.83-4.51 [facility] Comment on above: Performed By: #### L 101.9900, L3100.5850, L500.4050, L501.9520, L501.6710, L700.6800, L3100.5450, L100.0100 ####[facility] [address] [place], [place], [phone] Absolute Neut 4.3 X10 3/uL Normal 2.0-7.7 [facility] Comment on above: Performed By: #### L 101.9900, L3100.5850, L500.4050, L501.9520, L501.6710, L700.6800, L3100.5450, L100.0100 ####[facility] [address] [place], [place], [phone] Basophils/100 WBC (Bld) 0.4 % Normal 0-1 [facility] Comment on above: Performed By: #### L 101.9900, L3100.5850, L500.4050, L501.9520, L501.6710, L700.6800, L3100.5450, L100.0100 ####[facility] [address] [place], [place], [phone] Eosinophils/100 WBC (Bld) 3.1 % Normal 0-5 [facility] Comment on above: Performed By: #### L 101.9900, L3100.5850, L500.4050, L501.9520, L501.6710, L700.6800, L3100.5450, L100.0100 ####[facility] [address] [place], [phone]) Erythrocyte distribution width (RBC) [Ratio] 13.2 % Normal 11.6-14.6 [facility] Comment on above: Performed By: #### L 101.9900, L3100.5850, L500.4050, L501.9520, L501.6710, L700.6800, L3100.5450, L100.0100 ####[facility] [address] [place], [place], [phone] Hematocrit (Bld) [Volume fraction] 42.0 % Normal 37-47 [facility] Comment on above: Performed By: #### L 101.9900, L3100.5850, L500.4050, L501.9520, L501.6710, L700.6800, L3100.5450, L100.0100 ####[facility] [address] [place], [place], [phone] Hemoglobin (Bld) [Mass/Vol] 13.8 g/dL Normal 12.0-15.0 [facility] Comment on above: Performed By: #### L 101.9900, L3100.5850, L500.4050, L501.9520, L501.6710, L700.6800, L3100.5450, L100.0100 ####[facility] [address] [place], [address] IG% 0.300 Normal 0.0-0.9 [facility] Comment on above: Result Comment: IG% - Immature Granulocytes (promyelocytes, myelocytes and metamyelocytes) > 1% indicates that a LEFT SHIFT is Present. Performed By: #### L 101.9900, L3100.5850, L500.4050, L501.9520, L501.6710, L700.6800, L3100.5450, L100.0100 ####[facility] [address] [place], [address] Lymphocytes/100 WBC (Bld) 26.6 % Normal 19-41 [facility] Comment on above: Performed By: #### L 101.9900, L3100.5850, L500.4050, L501.9520, L501.6710, L700.6800, L3100.5450, L100.0100 ####[facility] [address] [place], [address] MCH (RBC) [Entitic mass] 28.8 pg Normal 27.0-32.0 [facility] Comment on above: Performed By: #### L 101.9900, L3100.5850, L500.4050, L501.9520, L501.6710, L700.6800, L3100.5450, L100.0100 ####[facility] [address] [place], [address] MCHC (RBC) [Mass/Vol] 32.9 g/dL Normal 32-36 [facility] Comment on above: Performed By: #### L 101.9900, L3100.5850, L500.4050, L501.9520, L501.6710, L700.6800, L3100.5450, L100.0100 ####[facility] [address] [place], [address] MCV (RBC) [Entitic vol] 87.7 fL Normal 81-99 [facility] Comment on above: Performed By: #### L 101.9900, L3100.5850, L500.4050, L501.9520, L501.6710, L700.6800, L3100.5450, L100.0100 ####[facility] [address] [place], [address] Monocytes/100 WBC (Bld) 5.5 % Normal 0-10 [facility] Comment on above: Performed By: #### L 101.9900, L3100.5850, L500.4050, L501.9520, L501.6710, L700.6800, L3100.5450, L100.0100 ####[facility] [address] [place], [address] Neutrophils/100 WBC (Bld) 64.1 % Normal 47-70 [facility] Comment on above: Performed By: #### L 101.9900, L3100.5850, L500.4050, L501.9520, L501.6710, L700.6800, L3100.5450, L100.0100 ####[facility] [address] [place], [address] Nucleated RBC (Bld) [#/Vol] 0 10*3/uL Normal 0-5 [facility] Comment on above: Performed By: #### L 101.9900, L3100.5850, L500.4050, L501.9520, L501.6710, L700.6800, L3100.5450, L100.0100 ####[facility] [address] [place], [address] Platelet mean volume (Bld) [Entitic vol] 10.6 fL Normal 6.2-12.0 [facility] Comment on above: Performed By: #### L 101.9900, L3100.5850, L500.4050, L501.9520, L501.6710, L700.6800, L3100.5450, L100.0100 ####[facility] [address] [place], [address] Platelets (Bld) [#/Vol] 378 10*3/uL Normal 150-450 [facility] Comment on above: Performed By: #### L 101.9900, L3100.5850, L500.4050, L501.9520, L501.6710, L700.6800, L3100.5450, L100.0100 ####[facility] [address] [place], [address] RBC (Bld) [#/Vol] 4.79 10*6/uL Normal 4.2-5.4 [facility] Comment on above: Performed By: #### L 101.9900, L3100.5850, L500.4050, L501.9520, L501.6710, L700.6800, L3100.5450, L100.0100 ####[facility] [address] [place], [address] RDW SD 42.5 fl Normal 35.1-43.9 [facility] Comment on above: Performed By: #### L 101.9900, L3100.5850, L500.4050, L501.9520, L501.6710, L700.6800, L3100.5450, L100.0100 ####[facility] [address] [place], [address] WBC (Bld) [#/Vol] 6.7 10*3/uL Normal 4.4-11.0 [facility] Comment on above: Performed By: #### L 101.9900, L3100.5850, L500.4050, L501.9520, L501.6710, L700.6800, L3100.5450, L100.0100 ####[facility] [address] [place], [place], [phone] CRPon 04-09-2025 C-REACTIVE PROT 6.72 mg/L High 0.0-3.0 [facility] Comment on above: Performed By: #### L 101.9900, L3100.5850, L500.4050, L501.9520, L501.6710, L700.6800, L3100.5450, L100.0100 ####[facility] [address] [place], [place], [phone] Comprehensive Metabolic Prof ilon 04-09-2025 Albumin [Mass/Vol] 4.6 g/dL Normal 3.5-5.0 [facility] Comment on above: Performed By: #### L 101.9900, L3100.5850, L500.4050, L501.9520, L501.6710, L700.6800, L3100.5450, L100.0100 ####[facility] [address] [place], [place], [phone] Albumin/Globulin [Mass ratio] 1.3 {ratio} Normal 0.9-2.4 [facility] Comment on above: Performed By: #### L 101.9900, L3100.5850, L500.4050, L501.9520, L501.6710, L700.6800, L3100.5450, L100.0100 ####[facility] [address] [place], [place], [phone] ALK PHOS 90 U/L Normal 35-104 [facility] Comment on above: Performed By: #### L 101.9900, L3100.5850, L500.4050, L501.9520, L501.6710, L700.6800, L3100.5450, L100.0100 ####[facility] [address] [place], [address] ALT [Catalytic activity/Vol] 36 U/L High <=34 [facility] Comment on above: Performed By: #### L 101.9900, L3100.5850, L500.4050, L501.9520, L501.6710, L700.6800, L3100.5450, L100.0100 ####[facility] [address] [place], [address] AST [Catalytic activity/Vol] 31 U/L Normal <=31 [facility] Comment on above: Performed By: #### L 101.9900, L3100.5850, L500.4050, L501.9520, L501.6710, L700.6800, L3100.5450, L100.0100 ####[facility] [address] [place], [address] Bilirubin [Mass/Vol] 0.41 mg/dL Normal 0.00-1.30 [facility] Comment on above: Performed By: #### L 101.9900, L3100.5850, L500.4050, L501.9520, L501.6710, L700.6800, L3100.5450, L100.0100 ####[facility] [address] [place], [address] BUN/CRE 14.4 RATIO Normal 10-20 [facility] Comment on above: Performed By: #### L 101.9900, L3100.5850, L500.4050, L501.9520, L501.6710, L700.6800, L3100.5450, L100.0100 ####[facility] [address] [place], [address] Calcium [Mass/Vol] 9.6 mg/dL Normal 7.6-11.0 [facility] Comment on above: Performed By: #### L 101.9900, L3100.5850, L500.4050, L501.9520, L501.6710, L700.6800, L3100.5450, L100.0100 ####[facility] [address] [place], [address] Chloride [Moles/Vol] 105 mmol/L Normal 98-108 [facility] Comment on above: Performed By: #### L 101.9900, L3100.5850, L500.4050, L501.9520, L501.6710, L700.6800, L3100.5450, L100.0100 ####[facility] [address] [place], [place], [phone]) CO2 [Moles/Vol] 19.6 mmol/L Low 21.0-32.0 [facility] Comment on above: Performed By: #### L 101.9900, L3100.5850, L500.4050, L501.9520, L501.6710, L700.6800, L3100.5450, L100.0100 ####[facility] [address] [place], [place], [phone](239) Creatinine [Mass/Vol] 0.86 mg/dL Normal 0.70-1.20 [facility] Comment on above: Performed By: #### L 101.9900, L3100.5850, L500.4050, L501.9520, L501.6710, L700.6800, L3100.5450, L100.0100 ####[facility] [address] [place], [address] GAP 12 Normal 5-15 [facility] Comment on above: Performed By: #### L 101.9900, L3100.5850, L500.4050, L501.9520, L501.6710, L700.6800, L3100.5450, L100.0100 ####[facility] [address] [place], [address] GFR/1.73 sq M.predicted among non-blacks MDRD (S/P/Bld) [Vol rate/Area] 97 mL/min/{1.73_m2} Normal >60 [facility] Comment on above: Result Comment: mL/m in/1.73m2 CKD-EPI Creatinine Equation (2020) Performed By: #### L 101.9900, L3100.5850, L500.4050, L501.9520, L501.6710, L700.6800, L3100.5450, L100.0100 ####[facility] [address] [place], [address] Globulin (S) [Mass/Vol] 3.4 g/dL Normal 2.2-4.2 [facility] Comment on above: Performed By: #### L 101.9900, L3100.5850, L500.4050, L501.9520, L501.6710, L700.6800, L3100.5450, L100.0100 ####[facility] [address] [place], [address] Glucose [Mass/Vol] 87 mg/dL Normal 70-99 [facility] Comment on above: Performed By: #### L 101.9900, L3100.5850, L500.4050, L501.9520, L501.6710, L700.6800, L3100.5450, L100.0100 ####[facility] [address] [place], [address] Potassium [Moles/Vol] 4.0 mmol/L Normal 3.3-5.1 [facility] Comment on above: Performed By: #### L 101.9900, L3100.5850, L500.4050, L501.9520, L501.6710, L700.6800, L3100.5450, L100.0100 ####[facility] [address] [place], [place], [phone] Sodium [Moles/Vol] 137 mmol/L Normal 133-145 [facility] Comment on above: Performed By: #### L 101.9900, L3100.5850, L500.4050, L501.9520, L501.6710, L700.6800, L3100.5450, L100.0100 ####[facility] [address] [place], [place], [phone] T PROT 8.0 g/dL Normal 5.9-8.4 [facility] Comment on above: Performed By: #### L 101.9900, L3100.5850, L500.4050, L501.9520, L501.6710, L700.6800, L3100.5450, L100.0100 ####[facility] [address] [place], [place], [phone] Urea nitrogen [Mass/Vol] 12 mg/dL Normal 4-19 [facility] Comment on above: Performed By: #### L 101.9900, L3100.5850, L500.4050, L501.9520, L501.6710, L700.6800, L3100.5450, L100.0100 ####[facility] [address] [place], [place], [phone] Erythrocyte Sed Rateon 04-09 SED RATE 9 mm/hr Normal 0-30 [facility] Comment on above: Performed By: #### L 101.9900, L3100.5850, L500.4050, L501.9520, L501.6710, L700.6800, L3100.5450, L100.0100 ####[facility] [address] [place], [place], [phone] ,Serum,hCG Quali.on 04-09-2025 HCG, SERUM QUAL Negative Normal [facility] Comment on above: Performed By: #### L 101.9900, L3100.5850, L500.4050, L501.9520, L501.6710, L700.6800, L3100.5450, L100.0100 ####[facility] [address] [place], [address] Thyroid Stim Hormone (TSH)on 04-09-2025 TSH 2.570 uIU/mL Normal 0.300-4.200 [facility] Comment on above: Performed By: #### L 101.9900, L3100.5850, L500.4050, L501.9520, L501.6710, L700.6800, L3100.5450, L100.0100 ####[facility] [address] [place], [place], [address] Internal Medicine Office Vis iton 04-07-2025 Internal Medicine Office Visit [facility] [address] [place] [address] [place] [address] OFFICE VISIT Date of Service: 04/07/25 MR#: [id number] Acct: [id number] Name: MARTITA RICKETTS Rep #: [id number] : 2000 Provider: NABEEL Burgos Age/Sex: 25/F [place] [facility] Status: Signed Intake Vital Signs 03/23/25 15:50 [...] RE-EST IN MAY Chief Complaint: 3m f/u [employer] Judge Required: No Accompanied by: Son Is patient [...] w/ the weight gain. [facility] Medical History Schizoaffective disorder, bipolar type Asthma [...] 3-4 times per week duration: 30-45 minutes/day leti/sikhism: jewish seatbelt use: always do you feel safe at home: Yes additional social history: -no contact - not Questionnaire STOP-BANG Sleep Apnea STOP Do you SNORE loudly? (louder than talking or loud enough to be heard through closed doors)?: Yes Do you f (more content not included)... Normal [facility] MR/BMS.BPon 03-23-2025 MR/BMS.BP [address], [address] [place] [address] OFFICE VISIT Date of Service: 03/23/25 MR#: [id number] Acct: [id number] Name: MARTITA RICKETTS Rep #: [id number] : 2000 Provider: SREE kelly Age/Sex: 25/F [place] [facility] [place] Status: Signed Intake Vital Signs 02/09/25 11:22 [...] 3-4 times per week duration: 30-45 minutes/day leti/sikhism: jewish seatbelt use: always do you feel safe at home: Yes additional social history: -no contact - not HPI History of Present Illness History provided by: patient HPI: Martita Ricketts is a 25 year old female patient [...] abdominal meli (more content not included)... Normal [facility] ED Nursing Noteon 03-20-2025 ED Nursing Note Pt arrives to ED for contact being stuck in right eye. Pt states eye is red and painful. Pt just put contact in this morning and was unable to get it out. Normal [facility] ED Provider Noteon ED Provider Note EMERGENCY DEPARTMENT ENCOUNTER Pt Name: Martita Ricketts Birthdate 2000 Date of evaluation: 03/20/2025 ED Provider: Maurisio Aviles PA-C CHIEF COMPLAINT Chief Complaint Patient presents with Eye Problem Contact stuck HISTORY OF PRESENT ILLNESS (Location/Symptom, Timing/Onset, Context/Setting, Quality, Duration, Modifying Factors, Severity) Note limiting factors. I wore appropriate PPE for the entirety of this encounter. HPI Martita Ricketts is a 25 y.o. female who presents [...] heart s (more content not included)... Normal [facility] MR/BMS.BPon 02-09-2025 MR/BMS.[facility] [address] [place] [address], [address] [place] [address] OFFICE VISIT Date of Service: 02/09/25 MR#: [id number] Acct: [id number] Name: MARTITA RICKETTS Rep #: [id number] : 2000 Provider: SREE kelly Age/Sex: 25/F [place] [facility] [place] Status: Signed Intake Vital Signs 12/29/24 [...] 3-4 times per week duration: 30-45 minutes/day leti/sikhism: jewish seatbelt use: always do you feel safe at home: Yes additional social history: -no contact - not HPI History of Present Illness History provided by: patient Chief complaint: Inattention/Anxiety HPI: Martita Ricketts is a 25 year old female patient [...] wheezing E (more content not included)... [facility] MR/BMSon 12-29-2024 MR/ [facility] [address], [address] [place] [address] OFFICE VISIT Date of Service: 12/29/24 MR#: [id number] Acct: [id number] Name: MARTITA RICKETTS Rep #: [id number] : 2000 Provider: SREE kelly Age/Sex: 24/F [place] [facility] [place] Status: Signed Intake Vital Signs 12/01/24 11:17 [...] 3-4 times per week duration: 30-45 minutes/day leti/sikhism: jewish seatbelt use: always do you feel safe at home: Yes additional social history: -no contact - not HPI History of Present Illness History provided by: patient Chief complaint: Anxiety/Depression HPI: Martita Ricketts is a 24 year old female patient presenting today for a virtual follow up evaluation. Reports she is currently ill and has body aches, dizziness, and fevers and it just started this morning. Reports her son and her were ill first. States she has just returned from a vacation in [place] and was feeling better mentally since then. [...] ideation E (more content not included)... Normal [facility] MR/BMS.BPon 12-01-2024 MR/BMS.BP [facility] [address], [address] [place] [address] OFFICE VISIT Date of Service: 12/01/24 MR#: [id number] Acct: [id number] Name: MARTITA RICKETTS Rep #: [id number] : 2000 Provider: SREE kelly Age/Sex: 24/F [place] [facility] [place]: Signed Intake Vital Signs 11/10/24 14:12 [...] 3-4 times per week duration: 30-45 minutes/day leti/sikhism: jewish seatbelt use: always do you feel safe at home: Yes additional social history: -no contact - not HPI History of Present Illness History provided by: patient HPI: Martita Ricketts is a 24 year old female patient presenting today for a follow up evaluation. Has been noticing an increase in irritability. Admits to feeling hopeless. Admits to feeling depressed every day all day long. Admits to difficulty getting out of bed and struggling to get herself together. 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 Admits to feelings of [...] dyspnea, cou (more content not included)... Normal [facility] MR/BMS.BPon 11-10-2024 MR/BMS.[address], [address] [place] [address] OFFICE VISIT Date of Service: 11/10/24 MR#: [id number] Acct: [id number] Name: MARTITA RICKETTS Rep #: [id number] : 2000 Provider: SREE kelly Age/Sex: 24/F [place] [facility] [place] Status: Signed Intake Vital Signs 10/16/24 14:20 [...] 3-4 times per week duration: 30-45 minutes/day leti/sikhism: jewish seatbelt use: always do you feel safe at home: Yes additional social history: -no contact - not HPI History of Present Illness History provided by: patient and family (mother- Kassandra) HPI: Martita Ricketts is a 24 year old female patient [...] still struggling with sleep. 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 Normal [facility] MR/BMS.BPon 10-16-2024 MR/BMS.[facility] [address], [address] [place] [address] OFFICE VISIT Date of Service: 10/16/24 MR#: [id number] Acct: [id number] Name: MARTITA RICKETTS Rep #: [id number] : 2000 Provider: SREE kelly Age/Sex: 24/F [place] [facility] [place] Status: Signed Intake Vital Signs 09/11/24 14:27 [...] 3-4 times per week duration: 30-45 minutes/day leti/sikhism: jewish seatbelt use: always do you feel safe at home: Yes additional social history: -no contact - not HPI History of Present Illness History provided by: patient and family (mother- Kassandra) HPI: Martita Ricketts is a 24 year old female patient [...] discharge, tyshawn (more content not included)... Normal [facility] Cobalamin (Vitamin B12) [Mas s/Vol]on 09-08-2024 Interpretation and review of laboratory results Normal [facility] VITAMIN B12on 09-08-2024 Cobalamin (Vitamin B12) [Mass/Vol] 702 pg/mL 232 - 1245 pg/mL [facility] 25-hydroxyvitamin D3 [Mass/V ol]on 09-07-2024 Interpretation and review of laboratory results Abnormal [facility] The reference range interval was based on an analysis of samples from healthy adults and may not pertain to children from 0-18 years old. [facility] C-REACTIVE PROTEINon 024 CRP [Mass/Vol] mg/dL [facility] - 0.9 mg/dL [facility] CBC W Auto Differential pane l (Bld)on 09-07-2024 Basophils (Bld) [#/Vol] 0.04 10*3/uL [facility] Basophils/100 WBC (Bld) 0.5 % [facility] Differential cell count method Nom (Bld) Auto [facility] Eosinophils (Bld) [#/Vol] 0.13 10*3/uL [facility] Eosinophils/100 WBC (Bld) 1.6 % [facility] Erythrocyte distribution width (RBC) [Ratio] 13.9 % 11.5 - 15.0 % [facility] Hematocrit (Bld) [Volume fraction] 41.1 % 36.0 - 46.0 % [facility] Hemoglobin (Bld) [Mass/Vol] 13.3 g/dL 11.5 - 15.5 g/dL [facility] Immature granulocytes (Bld) [#/Vol] NINF [facility] Immature granulocytes/100 WBC (Bld) 0.2 % [facility] Interpretation and review of laboratory results Abnormal [facility] Lymphocytes (Bld) [#/Vol] 1.63 10*3/uL [facility] Lymphocytes/100 WBC (Bld) 19.7 % [facility] MCH (RBC) [Entitic mass] 28.5 pg 26. 0 - 34.0 pg [facility] MCHC (RBC) [Mass/Vol] 32.4 g/dL 30.5 - 36.0 g/dL [facility] MCV (RBC) [Entitic vol] 88.2 fL 80.0 - 100.0 fL [facility] Monocytes (Bld) [#/Vol] 0.54 10*3/uL [facility] Monocytes/100 WBC (Bld) 6.5 % [facility] Neutrophils (Bld) [#/Vol] 5.91 10*3/uL [facility] Neutrophils/100 WBC (Bld) 71.5 % [facility] Nucleated RBC (Bld) [#/Vol] NINF [facility] Nucleated RBC/100 WBC (Bld) [Ratio] 0.0 % /100 WBC [facility] Platelet mean volume (Bld) [Entitic vol] 10.0 fL 9.0 - 12.7 fL [facility] Platelets (Bld) [#/Vol] 407 10*3/uL High [facility] RBC (Bld) [#/Vol] 4.66 10*6/uL 3.90 - 5.2 0 m/uL [facility] WBC (Bld) [#/Vol] 8.27 10*3/uL [facility] Comprehensive metabolic 2000 panelon 09-07-2024 Albumin [Mass/Vol] 4.5 g/dL 3.9 - 4.9 g/dL [facility] ALP [Catalytic activity/Vol] 91 U/L 34 - 123 U/L [facility] ALT [Catalytic activity/Vol] 37 U/L 7 - 38 U/L [facility] Anion gap [Moles/Vol] 12 mmol/L 8 - 15 mmol/L [facility] AST [Catalytic activity/Vol] 24 U/L 13 - 35 U/L [facility] Bilirubin [Mass/Vol] 0.3 mg/dL 0.2 - 1 .3 mg/dL [facility] Calcium [Mass/Vol] 9.7 mg/dL 8.5 - 10. 2 mg/dL [facility] Chloride [Moles/Vol] 104 mmol/L 98 - 10 7 mmol/L [facility] CO2 [Moles/Vol] 22 mmol/L 22 - 30 mmol/L [facility] Creatinine [Mass/Vol] 0.82 mg/dL 0.58 - 0.96 mg/dL [facility] GFR/1.73 sq M.predicted among non-blacks MDRD (S/P/Bld) [Vol rate/Area] 103 mL/min/{1.73_m2} - PINF [facility] Comment on above: Estimated Glomerular Filtration Rate [...] [Mass/Vol] 93 mg/dL 74 - 99 mg/dL [facility] Comment on above: The [place] Diabete s Association (ADA) provides guidance for [...] Standards of Medical Care in Diabetes 2016, [place] Diabetes Association. Diabetes Care. 2016.39(Suppl 1). Potassium [Moles/Vol] 3.8 mmol/L 3.7 - 5.1 mmol/L [facility] Protein [Mass/Vol] 7.6 g/dL 6.3 - 8.0 g/dL [facility] Sodium [Moles/Vol] 138 mmol/L 136 - 144 mmol/L [facility] Urea nitrogen [Mass/Vol] 9 mg/dL 7 - 21 mg/dL [facility] Iron and Iron binding capaci ty panelon 09-07-2024 Iron [Mass/Vol] 94 ug/dL 41 - 186 ug/dL [facility] Iron binding capacity [Mass/Vol] 333 ug/dL 232 - 386 ug/dL [facility] Iron/TIBC [Molar ratio] 28.2 % 15.0 - 57.0 % [facility] No Panel Informationon 09-07 Interpretation and review of laboratory results Normal [facility] TRANSFERRINon 09-07-2024 Transferrin [Mass/Vol] 270 mg/dL 200 - 360 mg/dL [facility] VITAMIN D 25 HYDROXYon 09-07 25-hydroxyvitamin D3 [Mass/Vol] 27.8 ng/mL Low 31.0 - 80.0 ng/mL [facility] Comment on above: Classification of 25 [place] Vitamin D status: Deficiency/Insufficiency: < or = 30 ng/ml. Sufficiency/Optimal Levels: 31-80 ng/mL Toxicity: > 100 ng/mL. Test performed by chemiluminescent immunoassay. .Auto Diffon 06-23-2024 Basophil, Absolute 0.0 10 3/mcL Normal 0.0-0.2 [facility] ([place]) Comment on above: Performed By: #### A LADY, CBC, MONO, MDW, GFR, ADIFF, BMP #### [address] [address] Basophils/100 WBC (Bld) 0.4 % Normal 0.0-2.5 A [facility] ([place]) Comment on above: Performed By: #### A LADY, CBC, MONO, MDW, GFR, ADIFF, BMP #### [address] [address] Eosinophil, Absolute 0.1 10 3/mcL Normal 0.0-0.4 [facility] ([place]) Comment on above: Performed By: #### A LADY, CBC, MONO, MDW, GFR, ADIFF, BMP #### [address] [address] Eosinophils/100 WBC (Bld) 1.4 % Normal 0.0-7.0 [facility] ([place]) Comment on above: Performed By: #### A LADY, CBC, MONO, MDW, GFR, ADIFF, BMP #### [address] [address] Lymphocyte, Absolute 1.7 10 3/mcL Normal 0.8-3.9 [facility] ([place]) Comment on above: Performed By: #### A LADY, CBC, MONO, MDW, GFR, ADIFF, BMP #### [address] [address] Lymphocytes/100 WBC (Bld) 21.0 % Normal 10.0-50.0 [facility] ([place]) Comment on above: Performed By: #### A LADY, CBC, MONO, MDW, GFR, ADIFF, BMP #### [address] [address] Monocyte, Absolute 0.5 10 3/mcL Normal 0.2-1.0 [facility] ([place]) Comment on above: Performed By: #### A LADY, CBC, MONO, MDW, GFR, ADIFF, BMP #### [address] [address] Monocytes/100 WBC (Bld) 5.8 % Normal 1.7-13.0 [facility] ([place]) Comment on above: Performed By: #### A LADY, CBC, MONO, MDW, GFR, ADIFF, BMP #### [address] [address] Neutrophils/100 WBC (Bld) 71.4 % Normal 37.0-80.0 [facility] ([place]) Comment on above: Performed By: #### A LADY, CBC, MONO, MDW, GFR, ADIFF, BMP #### [address] [address] .GFRon 06-23-2024 GFR 120 ml/min/1.73sqm Normal [facility] ([place]) Comment on above: Result Comment: GFR Population [...] CBC, MONO, MDW, GFR, ADIFF, BMP #### [address] [address] GFR Non- 99 ml/min/1.73sqm Normal [facility] ([place]) Comment on above: Result Comment: GFR Population [...] CBC, MONO, MDW, GFR, ADIFF, BMP #### [address] [address] .MDWon 06-23-2024 Monocyte Distribution Width 17.19 Normal 0.00-20.00 [facility] ([place]) Comment on above: Result Comment: For ED adult patients suspected of sepsis, MDW<=20.0 does not rule out sepsis or risk of sepsis Performed By: #### A LADY, CBC, MONO, MDW, GFR, ADIFF, BMP #### [address] [address] .NEUABSon 06-23-2024 Neutrophil, Absolute 5.8 10 3/mcL Normal 2.9-6.2 [facility] ([place]) Comment on above: Performed By: #### A LADY, CBC, MONO, MDW, GFR, ADIFF, BMP #### [address] [address] BMPon 06-23-2024 BUN/Creatinine Ratio 19 ratio Normal 7-27 [facility] ([place]) Comment on above: Performed By: #### A LADY, CBC, MONO, MDW, GFR, ADIFF, BMP #### [address] [address] Calcium [Mass/Vol] 9.5 mg/dL Normal 8.4-10.2 [facility] ([place]) Comment on above: Performed By: #### A LADY, CBC, MONO, MDW, GFR, ADIFF, BMP #### [address] [address] Chloride [Moles/Vol] 107 mmol/L Normal 98-107 [facility] ([place]) Comment on above: Performed By: #### A LADY, CBC, MONO, MDW, GFR, ADIFF, BMP #### [address] [address] CO2 [Moles/Vol] 25 mmol/L Normal 22-29 [facility] ([place]) Comment on above: Performed By: #### A LADY, CBC, MONO, MDW, GFR, ADIFF, BMP #### [address] [address] Creatinine [Mass/Vol] 0.73 mg/dL Normal 0.55-1.02 [facility] ([place]) Comment on above: Performed By: #### A LADY, CBC, MONO, MDW, GFR, ADIFF, BMP #### [address] [address] Electrolyte Balance 8.0 mEq/L Normal 4.0-15.0 [facility] ([place]) Comment on above: Performed By: #### A LADY, CBC, MONO, MDW, GFR, ADIFF, BMP #### [address] [address] Glucose [Mass/Vol] 86 mg/dL Normal 70-105 [facility] ([place]) Comment on above: Performed By: #### A LADY, CBC, MONO, MDW, GFR, ADIFF, BMP #### [address] [address] Potassium [Moles/Vol] 4.4 mmol/L Normal 3.5-5.1 [facility] ([place]) Comment on above: Performed By: #### A LADY, CBC, MONO, MDW, GFR, ADIFF, BMP #### [address] [address] Sodium [Moles/Vol] 140 mmol/L Normal 136-145 [facility] ([place]) Comment on above: Performed By: #### A LADY, CBC, MONO, MDW, GFR, ADIFF, BMP #### [address] [address] Urea nitrogen [Mass/Vol] 14 mg/dL Normal 7-18 [facility] ([place]) Comment on above: Performed By: #### A LADY, CBC, MONO, MDW, GFR, ADIFF, BMP #### [address] [address] CBCon 06-23-2024 Erythrocyte distribution width (RBC) [Ratio] 15.1 % High 11.5-14.5 [facility] ([place]) Comment on above: Performed By: #### A LADY, CBC, MONO, MDW, GFR, ADIFF, BMP #### [address] [address] Hematocrit (Bld) [Volume fraction] 38.1 % Normal 37.0-47.0 [facility] ([place]) Comment on above: Performed By: #### A LADY, CBC, MONO, MDW, GFR, ADIFF, BMP #### [address] [address] Hgb 12.7 G/dL Normal 12.0-16.0 [facility] ([place]) Comment on above: Performed By: #### A LADY, CBC, MONO, MDW, GFR, ADIFF, BMP #### [address] [address] MCH (RBC) [Entitic mass] 27.9 pg Normal 27.0-31.2 [facility] ([place]) Comment on above: Performed By: #### A LADY, CBC, MONO, MDW, GFR, ADIFF, BMP #### [address] [address] MCHC 33.3 G/dL Normal 33.0-37.0 [facility] ([place]) Comment on above: Performed By: #### A LADY, CBC, MONO, MDW, GFR, ADIFF, BMP #### [address] [address] MCV (RBC) [Entitic vol] 83.7 fL Normal 80.0-94.0 A [facility] ([place]) Comment on above: Performed By: #### A LADY, CBC, MONO, MDW, GFR, ADIFF, BMP #### [address] [address] Platelet 393 10 3/mcL Normal 130-400 [facility] ([place]) Comment on above: Performed By: #### A LADY, CBC, MONO, MDW, GFR, ADIFF, BMP #### [address] [address] Platelet mean volume (Bld) [Entitic vol] 7.5 fL Normal 7.4-10.4 [facility] ([place]) Comment on above: Performed By: #### A LADY, CBC, MONO, MDW, GFR, ADIFF, BMP #### [address] [address] RBC 4.55 10 6/mcL Normal 4.20-5.40 [facility] ([place]) Comment on above: Performed By: #### A LADY, CBC, MONO, MDW, GFR, ADIFF, BMP #### [place] [address] WBC 8.2 10 3/mcL Normal 4.6-10.8 [facility] ([place]) Comment on above: Performed By: #### A LADY, CBC, MONO, MDW, GFR, ADIFF, BMP #### [place] [address] CVFLURVon 06-23-2024 FLU A PCR Negative Normal Negative [facility] ([place]) Comment on above: Performed By: #### A LADY, CBC, MONO, MDW, GFR, ADIFF, BMP #### [place] [address] FLU B PCR Negative Normal Negative [facility] ([place]) Comment on above: Performed By: #### A LADY, CBC, MONO, MDW, GFR, ADIFF, BMP #### [place] [address] RSV PCR Negative Normal Negative [facility] ([place]) Comment on above: Performed By: #### A LADY, CBC, MONO, MDW, GFR, ADIFF, BMP #### [place] [address] SARS-CoV-2 (COVID-19) RNA HUGH+probe Ql (Unsp spec) Negative Normal Negative [facility] ([place]) Comment on above: Result Comment: Resu lts [...] MONO, MDW, GFR, ADIFF, BMP #### [place] [address] [place], [place] [address] LABORATORYOrdered By: Matthew Schmidt on 06-23-2024 Appearance [...] MCH (RBC) [Entitic mass] 27.9 pg Normal 27. 0 - 31.2 pg AO Workflow SS MCHC [...] results. MONOon 06-23-2024 Mononucleosis Negative Normal Negative [facility] ([place]) Comment on above: Performed By: #### A LADY, CBC, MONO, MDW, GFR, ADIFF, BMP #### [address] [address] PREGUon 06-23-2024 HCG ( test) Ql (U) Negative Normal [facility] ([place]) Comment on above: Performed By: #### A LADY, CBC, MONO, MDW, GFR, ADIFF, BMP #### [place] [address] test (u) int Not detected Invalid Interpretation Code [facility] ([place]) Comment on above: Performed By: #### A LADY, CBC, MONO, MDW, GFR, ADIFF, BMP #### [place] [address] UAon 06-23-2024 Color (U) Yellow Normal [facility] ([place]) Comment on above: Performed By: #### A LADY, CBC, MONO, MDW, GFR, ADIFF, BMP #### [place] [address] Glucose (U) [Mass/Vol] Negative Normal Negative [facility] ([place]) Comment on above: Performed By: #### A LADY, CBC, MONO, MDW, GFR, ADIFF, BMP #### [address] [address] Ketones Ql (U) Negative Normal Negative [facility] ([place]) Comment on above: Performed By: #### A LADY, CBC, MONO, MDW, GFR, ADIFF, BMP #### [address] [address] UA Appear Clear Normal Clear [facility] ([place]) Comment on above: Performed By: #### A LADY, CBC, MONO, MDW, GFR, ADIFF, BMP #### [address] [address] UA Blood Negative Normal Negative [facility] ([place]) Comment on above: Performed By: #### A LADY, CBC, MONO, MDW, GFR, ADIFF, BMP #### [address] [address] UA Leuk Est Negative Normal Negative [facility] ([place]) Comment on above: Performed By: #### A LADY, CBC, MONO, MDW, GFR, ADIFF, BMP #### [address] [address] UA Nitrite Negative Normal Negative [facility] ([place]) Comment on above: Performed By: #### A LADY, CBC, MONO, MDW, GFR, ADIFF, BMP #### [address] [address] UA pH 6.0 Normal 5.0 - 8.0 [facility] ([place]) Comment on above: Performed By: #### A LADY, CBC, MONO, MDW, GFR, ADIFF, BMP #### [address] [address] UA Protein Negative Normal Negative [facility] ([place]) Comment on above: Performed By: #### A LADY, CBC, MONO, MDW, GFR, ADIFF, BMP #### [address] [address] UA Spec Grav >=1.030 Abnormal 1.015-1.025 [facility] ([place]) Comment on above: Performed By: #### A LADY, CBC, MONO, MDW, GFR, ADIFF, BMP #### [address] [address] UA Specimen Type Clean Catch Normal [facility] ([place]) Comment on above: Performed By: #### A LADY, CBC, MONO, MDW, GFR, ADIFF, BMP #### [address] [address] UA Urobilinogen 0.2 E.U./dL Normal 0.2-1.0 [facility] ([place]) Comment on above: Performed By: #### A LADY, CBC, MONO, MDW, GFR, ADIFF, BMP #### [address] [address] Urobilinogen (U) [Mass/Vol] Negative Normal Negative [facility] ([place]) Comment on above: Performed By: #### A LADY, CBC, MONO, MDW, GFR, ADIFF, BMP #### [place] [address] [address] XR Shoulder - right 3 Viewso n 06-11-2024 IMPRESSION: Unremarkable right shoulder x-ray. Fire Captain: KHALIDA Transcribe Date/Time: Jun 11 2024 12:53P Dictated by : MAGDA DENNIS MD This examination was interpreted and the report reviewed and electronically signed by: MAGDA DENNIS MD on Jun 11 2024 12:54PM [facility] DIVISION OF RADIOLOGY * * *Final Report* [...] soft tissue swelling. DIVISION OF RADIOLOGY Provider, [facility] - 06/11/2024 * * *Final Report* [...] swelling. IMPRESSION IMPRESSION: Unremarkable right shoulder x-ray. Fire Captain: KHALIDA Transcribe Date/Time: Jun 11 2024 12:53P Dictated by : MAGDA DENNIS MD This examination was interpreted and the report reviewed and electronically signed by: MAGDA DENNIS MD on Jun 11 2024 12:54PM EST [facility] Radiology Study observation (narrative) [facility]R Shoulder - right 3 ViewsO rdered By: [facility] Provider on 06-11-2024 [facility] CTPCRon 05-10-2024 C. trachomatis Interp Normal See CT Interp N [facility] ([place]) Comment on above: Result Comment: C. t rachomatis DNA not detected. Specimen is presumptive negative for C. trachomatis. A negative result does not preclude C. trachomatis infection because results depend on adequate specimen collection, absence of inhibitors, and sufficient DNA to be detected. See CT Interp N Performed By: #### A LADY, CBC, MONO, MDW, GFR, ADIFF, BMP #### [address] [address] C.trachomatis PCR Negative Normal Negative [facility] ([place]) Comment on above: Result Comment: Tenorio sport tube received with two swabs. Review collection procedure. Inappropriate collection may cause aberrant results. Transport tube received with two swabs. Review collection procedure. Inappropriate collection may cause aberrant results. Molecular (PCR) assay performed on the Ang[employer] 4800 system. Performed By: #### A LADY, CBC, MONO, MDW, GFR, ADIFF, BMP #### [address] [address] Chlam Source Cervix Normal [facility] ([place]) Comment on above: Performed By: #### A LADY, CBC, MONO, MDW, GFR, ADIFF, BMP #### [address] [address] [id number] 05-10-2024 GC PCR Source Cervix Normal [facility] ([place]) Comment on above: Performed By: #### A LADY, CBC, MONO, MDW, GFR, ADIFF, BMP #### [address] [address] N. gonorrhoeae (PCR) Negative Normal Negative [facility] ([place]) Comment on above: Result Comment: Tenorio sport tube received with two swabs. Review collection procedure. Inappropriate collection may cause aberrant results. Transport tube received with two swabs. Review collection procedure. Inappropriate collection may cause aberrant results. Molecular (PCR) assay performed on the [employer]orie 4800 System. Performed By: #### A LADY, CBC, MONO, MDW, GFR, ADIFF, BMP #### [place] [address] N. gonorrhoeae Interp Normal See NG Interp N [facility] ([place]) Comment on above: Result Comment: N. g onorrhoeae DNA not detected. Specimen is presumptive negative for N. gonorrhoeae. A negative result does not preclude Neisseria gonorrhoeae infection because results depend on adequate specimen collection, absence of inhibitors, and sufficient DNA to be detected. See NG Interp N Performed By: #### A LADY, CBC, MONO, MDW, GFR, ADIFF, BMP #### [place] [address] .Urinalysis Microscopic (AO) on 05-08-2024 UA RBC 0-5 Abnormal None Seen [facility] ([place]) Comment on above: Performed By: #### A LADY, CBC, MONO, MDW, GFR, ADIFF, BMP #### [address] [address] UA Squam Epithelial 0-5 Abnormal None Seen [facility] ([place]) Comment on above: Performed By: #### A LADY, CBC, MONO, MDW, GFR, ADIFF, BMP #### [address] [address] UA WBC 0-5 Abnormal None Seen [facility] ([place]) Comment on above: Performed By: #### A LADY, CBC, MONO, MDW, GFR, ADIFF, BMP #### [place] [address] LABORATORYOrdered By: Harris aparicio on 05-08-2024 Appearance [...] HCG ( test) Ql (U) Negative Normal [facility] ([place]) Comment on above: Performed By: #### A LADY, CBC, MONO, MDW, GFR, ADIFF, BMP #### [address] [address] test (u) int Not detected Invalid Interpretation Code [facility] ([place]) Comment on above: Performed By: #### A LADY, CBC, MONO, MDW, GFR, ADIFF, BMP #### [address] [address] UAon 05-08-2024 Color (U) Yellow Normal [facility] ([place]) Comment on above: Performed By: #### A LADY, CBC, MONO, MDW, GFR, ADIFF, BMP #### [place] [address] Glucose (U) [Mass/Vol] Negative Normal Negative [facility] ([place]) Comment on above: Performed By: #### A LADY, CBC, MONO, MDW, GFR, ADIFF, BMP #### [place] [address] Ketones Ql (U) Negative Normal Negative [facility] ([place]) Comment on above: Performed By: #### A LADY, CBC, MONO, MDW, GFR, ADIFF, BMP #### [place] [address] UA Appear Clear Normal Clear [facility] ([place]) Comment on above: Performed By: #### A LADY, CBC, MONO, MDW, GFR, ADIFF, BMP #### [address] [address] UA Blood Small Abnormal Negative [facility] ([place]) Comment on above: Performed By: #### A LADY, CBC, MONO, MDW, GFR, ADIFF, BMP #### [address] [address] UA Leuk Est Trace Abnormal Negative [facility] ([place]) Comment on above: Performed By: #### A LADY, CBC, MONO, MDW, GFR, ADIFF, BMP #### [address] [address] UA Nitrite Negative Normal Negative [facility] ([place]) Comment on above: Performed By: #### A LADY, CBC, MONO, MDW, GFR, ADIFF, BMP #### [place] [address] UA pH 5.5 Normal 5.0 - 8.0 [facility] ([place]) Comment on above: Performed By: #### A LADY, CBC, MONO, MDW, GFR, ADIFF, BMP #### [address] [address] UA Protein Trace Normal Negative [facility] ([place]) Comment on above: Performed By: #### A LADY, CBC, MONO, MDW, GFR, ADIFF, BMP #### [address] [address] UA Spec Grav >=1.030 Abnormal 1.015-1.025 [facility] ([place]) Comment on above: Performed By: #### A LADY, CBC, MONO, MDW, GFR, ADIFF, BMP #### [place] [address] UA Specimen Type Not Given Normal [facility] ([place]) Comment on above: Performed By: #### A LADY, CBC, MONO, MDW, GFR, ADIFF, BMP #### [address] [address] UA Urobilinogen 0.2 E.U./dL Normal 0.2-1.0 [facility] ([place]) Comment on above: Performed By: #### A LADY, CBC, MONO, MDW, GFR, ADIFF, BMP #### [address] [address] Urobilinogen (U) [Mass/Vol] Negative Normal Negative [facility] ([place]) Comment on above: Performed By: #### A LADY, CBC, MONO, MDW, GFR, ADIFF, BMP #### [address] [address] US PELVIS NON-OB W/TRANSVAGI NALon 05-08-2024 US [...] 05/08/2024 5:23:32 PM Ordering Provider: FRANK Pichardo [facility]) CTPon 04-17-2024 C. trachomatis Interp Normal See CT Interp N [facility] ([place]) Comment on above: Result Comment: C. t rachomatis DNA not detected. Specimen is presumptive negative for C. trachomatis. A negative result does not preclude C. trachomatis infection because results depend on adequate specimen collection, absence of inhibitors, and sufficient DNA to be detected. See CT Interp N Performed By: #### C TPCR, NGPCR1 #### [address] [address] C.trachomatis PCR Negative Normal Negative [facility] ([place]) Comment on above: Result Comment: Denia lopezar (PCR) assay performed on the Dazo[employer] 4800 system. Performed By: #### C TPCR, NGPCR1 #### [address] [address] Chlam Source Urine Normal [facility]) Comment on above: Performed By: #### C TPCR, NGPCR1 #### [facility] [address] [place] [address] [id number] 04-17-2024 GC PCR Source Urine Normal [facility] ([place]) Comment on above: Performed By: #### C TPCR, NGPCR1 #### [facility] [address] [place] [address] N. gonorrhoeae (PCR) Negative Normal Negative [facility] ([place]) Comment on above: Result Comment: Mole cular (PCR) assay performed on the Ang[employer] 4800 System. Performed By: #### C TPCR, NGPCR1 #### [address] [address] N. gonorrhoeae Interp Normal See NG Interp N [facility] ([place]) Comment on above: Result Comment: N. g onorrhoeae DNA not detected. Specimen is presumptive negative for N. gonorrhoeae. A negative result does not preclude Neisseria gonorrhoeae infection because results depend on adequate specimen collection, absence of inhibitors, and sufficient DNA to be detected. See NG Interp N Performed By: #### C TPCR, NGPCR1 #### [address] [address] LABORATORYOrdered By: Ramona Mcdaniel on 04-16-2024 C. trachomatis DNA HUGH+probe Ql (Unsp spec) Negative 2 (04/16/24 10:57 PM) Normal Negative Auto Viro/Sero SS Comment on above: Interpretive [...] Sign Date: 04/16/2024 7:48:18 PM Ordering Provider: CAMRON WILHELM Normal [facility] ([place]) [id number] 11-13-2023 SARS-CoV-2 (COVID-19) RNA HUGH+probe Ql (Unsp spec) Negative Normal Negative [facility] ([place]) Comment on above: Performed By: #### A LADY, CBC, MONO, MDW, GFR, ADIFF, BMP #### [address] [address] SARS-CoV-2 (COVID-19) RNA HUGH+probe Ql (Unsp spec) Normal [facility] ([place]) Comment on above: Result Comment: Nega tive [...] Int Performed By: #### A LADY, CBC, KEV, KELSEA, GFR, ADIFF, BMP #### [address] [address] FLURSVon 11-13-2023 Flu A PCR (AO) Negative Normal Negative [facility] ([place]) Comment on above: Result Comment: Posi tive [...] virus (RSV) nucleic acid in nasopharyngeal swab (WEIGHER AND CRUSHER) specimens from patients with signs and symptoms of respiratory infection in conjunction with clinical and laboratory findings. The test is intended for use as an aid in the differential diagnosis of influenza A virus, influenza B virus, and RSV in humans and is not intended to detect influenza C. Performed By: #### A LADY, CBC, MD KEVW, GFR, ADIFF, BMP #### [address] [address] Flu B PCR (AO) Negative Normal Negative [facility] ([place]) Comment on above: Result Comment: Posi tive [...] REPEAT COLLECTION AND TESTING IS RECOMMENDED. [employer] Flu A/B & RSV Assay is a real-time polymerase chain reaction (PCR) based qualitative in vitro diagnostic test for the direct detection and differentiation of influenza A virus, influenza B virus, and respiratory syncytial virus (RSV) nucleic acid in nasopharyngeal swab (WEIGHER AND CRUSHER) specimens from patients with signs and symptoms of respiratory infection in conjunction with clinical and laboratory findings. The test is intended for use as an aid in the differential diagnosis of influenza A virus, influenza B virus, and RSV in humans and is not intended to detect influenza C. Performed By: #### A LADY, CBC, MONO, MDW, GFR, ADIFF, BMP #### [address] [address] RSV PCR (AO) Negative Normal Negative [facility] ([place]) Comment on above: Result Comment: Posi tive [...] REPEAT COLLECTION AND TESTING IS RECOMMENDED. [employer] Flu A/B & RSV Assay is a real-time polymerase chain reaction (PCR) based qualitative in vitro diagnostic test for the direct detection and differentiation of influenza A virus, influenza B virus, and respiratory syncytial virus (RSV) nucleic acid in nasopharyngeal swab (WEIGHER AND CRUSHER) specimens from patients with signs and symptoms of respiratory infection in conjunction with clinical and laboratory findings. The test is intended for use as an aid in the differential diagnosis of influenza A virus, influenza B virus, and RSV in humans and is not intended to detect influenza C. Performed By: #### A LADY, CBC, MONO, MDW, GFR, ADIFF, BMP #### [place] [id number] [place] [address] LABORATORYOrdered By: Amberly Franco on 11-13-2023 SARS-CoV-2 [...] REPEAT COLLECTION AND TESTING IS RECOMMENDED. [employer] Flu A/B & RSV Assay is a real-time polymerase chain reaction (PCR) based qualitative in vitro diagnostic test for the direct detection and differentiation of influenza A virus, influenza B virus, and respiratory syncytial virus (RSV) nucleic acid in nasopharyngeal swab (WEIGHER AND CRUSHER) specimens from patients with signs and symptoms [...] virus (RSV) nucleic acid in nasopharyngeal swab (WEIGHER AND CRUSHER) specimens from patients with signs and symptoms [...] REPEAT COLLECTION AND TESTING IS RECOMMENDED. [employer] Flu A/B & RSV Assay is a real-time polymerase chain reaction (PCR) based qualitative in vitro diagnostic test for the direct detection and differentiation of influenza A virus, influenza B virus, and respiratory syncytial virus (RSV) nucleic acid in nasopharyngeal swab (WEIGHER AND CRUSHER) specimens from patients with signs and symptoms of respiratory infection in conjunction with clinical and laboratory findings. The test is intended for use as an aid in the differential diagnosis of influenza A virus, influenza B virus, and RSV in humans and is not intended to detect influenza C. PREGUon 11-13-2023 HCG ( test) Ql (U) Negative Normal [facility] ([place]) Comment on above: Performed By: #### P REGU #### [place] [address] test (u) int Not detected Invalid Interpretation Code [facility] ([place]) Comment on above: Performed By: #### P REGU #### [place] [id number] Heart TransthoracicOrdere d By: Morena Panda on 11-06-2023 Ascending Aorta 2.7 cm [facility] Work Phone: Ascending Aorta Index 1.54 cm/m2 [facility] Work Phone: E/E' Lateral 8.36 [facility] Work Phone: E/E' Ratio (Averaged) 9.93 [facility] Work Phone: E/E' Septal 11.50 [facility] Work Phone: EF BP 57 % 55 - 100 % [facility] Work Phone: Fractional Shortening 2D 35 % 28 - 44 % [facility] Work Phone: IVC Diameter 1.1 cm [facility] Work Phone: IVSd 0.9 cm 0.6 - 0.9 cm [facility] Work Phone: LA Diameter 3.3 cm [facility] Work Phone: [phone] LA Size Index 1.89 cm/m2 [facility] Work Phone: LA Volume 4C 31 mL 22 - 52 mL [facility] Work Phone: LA Volume Index 4C 18 mL/m2 16 - 34 mL/m2 [facility] Work Phone: LV E' Lateral Velocity 11 cm/s [facility] Work Phone: LV E' Septal Velocity 8 cm/s [facility] Work Phone: LV EDV A2C 53 mL [facility] Work Phone: [phone] LV EDV A4C 73 mL [facility] Work Phone: LV EDV BP 62 mL 56 - 104 mL [facility] Work Phone: LV EDV Index A2C 30 mL/m2 [facility] Work Phone: LV EDV Index A4C 42 mL/m2 [facility] Work Phone: LV EDV Index BP 35 mL/m2 [facility] Work Phone: LV Ejection Fraction A2C 55 % [facility] Work Phone: LV Ejection Fraction A4C 58 % [facility] Work Phone: LV ESV A2C 24 mL [facility] Work Phone: [phone] LV ESV A4C 31 mL [facility] Work Phone: LV ESV BP 29 mL 19 - 49 mL [facility] Work Phone: LV ESV Index A2C 14 mL/m2 [facility] Work Phone: LV ESV Index A4C 18 mL/m2 [facility] Work Phone: LV ESV Index BP 17 mL/m2 [facility] Work Phone: LV Mass 2D 109.7 g 67 - 162 g [facility] Work Phone: LV Mass 2D Index 62.7 g/m2 43 - 95 g/m2 [facility] [employer] Work Phone: LV RWT Ratio 0.45 [facility] Work Phone: LVIDd 4.0 cm 3.9 - 5.3 cm [facility] Work Phone: LVIDd Index 2.29 cm/m2 [facility] Work Phone: LVIDs 2.6 cm [facility] [employer] Work Phone: [phone] LVIDs Index 1.49 cm/m2 [facility] [employer] Work Phone: LVOT Area 2.8 cm2 [facility] [employer] Work Phone: LVOT Cardiac Output 11.5 liter/mi nut e [facility] Work Phone: LVOT Diameter 1.9 cm [facility] Work Phone: LVOT Mean Gradient 2 mmHg [facility] Work Phone: LVOT Peak Gradient 4 mmHg [facility] Work Phone: LVOT Peak Velocity 1.0 m/s [facility] [employer] Work Phone: LVOT Stroke Volume Index 33.2 mL/m2 [facility] Work Phone: LVOT SV 58.1 ml [facility] Work Phone: LVOT VTI 20.5 cm [facility] Work Phone: [phone] LVPWd 0.9 cm 0.6 - 0.9 cm [facility] Work Phone: [phone] MV A Velocity 0.92 m/s [facility] Work Phone: [phone] MV E Velocity 0.92 m/s [facility] Work Phone: [phone] MV E Wave Deceleration Time 170.3 ms [facility] Work Phone: [phone] MV E/A 1.00 [facility] Work Phone: [phone] TAPSE 2.2 cm 1.7 cm [facility] Work Phone: [phone] [facility] Work Phone: [phone] US Heart Transthoracicon Left Ventricle: Left ventricle [...] lly difficult study. CV CPACS EKGon 09-21-2023 [facility] [place] Levelon 09-19-2023 [place] [Moles/Vol] 0.6 mmol/L 0.6 - 1. 2 mmol/L [facility] [place] [Moles/Vol]on 2022 Interpretation and review of laboratory results Normal [facility] Cholesterol in LDL Direct as say [Mass/Vol]on 09-18-2023 Cholesterol in LDL [Mass/Vol] 58 mg/dL 10 - 130 mg/dL [facility] Comment on above: National Cholesterol Education Program Guidelines: LDL Cholesterol Optimal: <100 mg/dL Near Optimal/above Optimal: 100-129 mg/dL Borderline High: 130-159 mg/dL High: 160-189 mg/dL Very High: greater than or equal to 190 mg/dL Interpretation and review of laboratory results Normal [facility] Comprehensive metabolic 2000 panelon 09-18-2023 Albumin [Mass/Vol] 4.0 g/dL 3.2 - 5.2 g/dL [facility] ALP [Catalytic activity/Vol] 100 U/L 40 - 140 U/L [facility] ALT [Catalytic activity/Vol] 44 U/L 14 - 65 U/L [facility] Anion gap [Moles/Vol] 10 mmol/L 10 - 2 0 mmol/L [facility] AST [Catalytic activity/Vol] 12 U/L 0-35 U/L [facility] Bilirubin [Mass/Vol] 0.4 mg/dL 0.0 - 1 .3 mg/dL [facility] Calcium [Mass/Vol] 9.5 mg/dL 8.4 - 10. 2 mg/dL [facility] Chloride [Moles/Vol] 110 mmol/L High 98 - 10 8 mmol/L [facility] Creatinine [Mass/Vol] 0.97 mg/dL 0.40 - 1.10 mg/dL [facility] GFR/1.73 sq M.predicted CKD-EPI (S/P/Bld) [Vol rate/Area] 85 - PINF [facility] Comment on above: Estimated GFR was ca lculated using the 2020 CKD-EPI creatinine equation. Glucose [Mass/Vol] 123 mg/dL High 65 - 99 mg/dL [facility] HCO3 [Moles/Vol] 23 mmol/L 21 - 32 mmol/L [facility] Potassium [Moles/Vol] 3.5 mmol/L 3.5 - 5.1 mmol/L [facility] Protein [Mass/Vol] 8.6 g/dL High 6.0 - 8.0 g/dL [facility] Sodium [Moles/Vol] 139 mmol/L 135 - 145 mmol/L [facility] Urea nitrogen [Mass/Vol] 6 mg/dL Low 8 - 25 mg/dL [facility] Urea nitrogen/Creatinine [Mass ratio] 6.2 mg/mg Low 10.0 - 20.0 [facility] has implemented the eGFR calculation approach that does not have a coefficient for race that conforms to the NKF-ASN Task Force Recommendations. [facility] HbA1c (Bld) [Mass fraction]O rdered By: Momo Hagen on 09-18-2023 Average glucose Estimated from glycated hemoglobin (Bld) [Mass/Vol] 103 mg/dL 68 - 114 mg/dL [facility] Interpretation and review of laboratory results Normal [facility] Normal: 4.0% - 5.6% Increased risk for diabetes: 5.7% - 6.4% Diabetes: >= 6.5% Pediatrics: No established reference range Estimated average glucose: 68-114 mg/dL [facility] Hemoglobin [id number] By: Kyara Hagen on 09-18-2023 HbA1c (Bld) [Mass fraction] 5.2 % 4.0 - 5.6 % [facility] Lipid 1996 panelon 3 Cholesterol [Mass/Vol] 144 mg/dL 100 - 199 mg/dL [facility] Comment on above: National Cholesterol Education Program Guidelines: Cholesterol Desirable: <200 mg/dL Borderline High: 200-239 mg/dL High: greater than or equal to 240 mg/dL Cholesterol in HDL [Mass/Vol] 28 mg/dL Low 40 - 59 mg/dL [facility] Comment on above: National Cholesterol Education Program Guidelines: HDL Cholesterol Low: <40 mg/dL Near Optimal: 40-59 mg/dL High: greater than or equal to 60 mg/dL Cholesterol in LDL [Mass/Vol] [facility] Comment on above: Calculated LDL inval id, triglycerides >400 mg/dl Cholesterol non HDL [Mass/Vol] 116 mg/dL [facility] Comment on above: National Cholesterol Education Program Guidelines: NON HDL Cholesterol Desirable: <130 mg/dL Borderline High: 130-159 mg/dL High: 160-189 mg/dL Very High: > or = 190 mg/dL Cholesterol.total/Choles terol in HDL [Mass ratio] 5.1 {ratio} ratio [facility] Comment on above: Female Cholesterol/H DL Ratio: Average risk: 4.4 1/2 average risk: 3.3 2 x average risk: 7.1 Triglyceride [Mass/Vol] 546 mg/dL High 30 - 150 mg/dL [facility] Comment on above: National Cholesterol Education Program Guidelines: Triglyceride Normal: <150 mg/dL Borderline High: 150-199 mg/dL High: 200-499 mg/dL Very High: greater than or equal to 500 mg/dL [place] Levelon 09-18-2023 [place] [Moles/Vol] 0.7 mmol/L 0.6 - 1. 2 mmol/L [facility] [place] [Moles/Vol]on 2022 Interpretation and review of laboratory results Normal [facility] No Panel Informationon 09-18 Interpretation and review of laboratory results Abnormal [facility] ECG 12 lead - CLINIC PERFORM EDon 08-14-2023 Sinus Rhythm -Freque nt pvcs -ventricular bigeminy Low voltage in precordial leads. -Abnormal precordial QRS contours -nondiagnostic for this age. -Negative precordial T-waves. ABNORMAL [facility] ECG 12 lead - CLINIC PERFORM EDOrdered By: Ananda Kinsey on 08-14-2023 [facility] Work Phone: [place] Levelon 07-22-2023 [place] [Moles/Vol] 0.8 mmol/L 0.6 - 1. 2 mmol/L [facility] [place] [Moles/Vol]on 2022 Interpretation and review of laboratory results Normal [facility] US Abdomenon 06-26-2023 No acute sonographic process identified. Report Dictated on Electronically Signed By: Henok Sheth MD Electronically Signed Date/Time: 06/26/2023 8:09 AM [facility] 2000 [id number] Exam Date/Time: 06/26/2023 07:54 Procedure: US ABDOMEN COMPLETE Ordering Provider: HELTON LEISA Reason For Exam: Generalized abdominal pain [...] cava: Visualized portions are normal Ascites: None [facility] Henok Sheth MD - 06/26/2023 Patient Name: MARTITA RICKETTS : 2000 Exam Date/Time: 06/26/2023 07:54 Procedure: US ABDOMEN COMPLETE Ordering Provider: HELTON LEISA Reason For Exam: Generalized abdominal pain [...] Electronically Signed Date/Time: 06/26/2023 8:09 AM EDT [facility] Radiology Study observation (narrative) [facility] US AbdomenOrdered By: Henok Sheth on 06-26-2023 [facility] Work Phone: XR Abdomen and RF Gastrointe stinal tract upper W contrast Unruly 06-26-2023 Small hiatal hernia without gastroesophageal reflux. Report Dictated on Electronically Signed By: Abimael Ochoa MD Electronically Signed Date/Time: 06/26/2023 10:24 AM EDT [facility] Patient Name: MARTITA RICKETTS : 2000 Exam Date/Time: 06/26/2023 09:08 Procedure: FL UPPER GI WITH KUB Ordering Provider: HELTON LEISA Reason For Exam: HEARTBURN AIR CONTRAST [...] mass. The visualized proximal jejunum is unremarkable. [facility] Abimael Ochoa MD - 06/26/2023 Patient Name: MARTITA RICKETTS : 2000 Exam Date/Time: 06/26/2023 09:08 Procedure: FL UPPER GI WITH KUB Ordering Provider: HELTON LEISA Reason For Exam: HEARTBURN AIR CONTRAST [...] Electronically Signed Date/Time: 06/26/2023 10:24 AM EDT [facility] Radiology Study observation (narrative) [facility] alth XR Abdomen and RF Gastrointe stinal tract upper W contrast POOrdered By: Abimael Ochoa on 06-26-2023 [facility] [employer] Work Phone: Vitamin B1, whole bloodon Thiamine pyrophosphate (Bld) [Moles/Vol] 128 nmol/L 70 - 180 nmol/L [facility] Comment on above: INTERPRETIVE INFORMA TION: Vitamin B1, Whole Blood This assay measures the concentration of thiamine diphosphate (TDP), the primary active form of vitamin B1. Approximately 90 percent of vitamin B1 present in whole blood is TDP. Thiamine and thiamine monophosphate, which comprise the remaining 10 percent, are not measured. This test was developed and its performance characteristics determined by [facility]. It has not been cleared or approved by the [place] Food and Drug Administration. This test was performed in a CLIA certified laboratory and is intended for clinical purposes. Performed By: [facility] [address] [place] [id number] Box Worker: Estuardo Lutz MD, PhD [facility] LABORATORYOrdered By: SYSTEM SYSTEM on 05-31-2023 Calcium [...] [Mass/Vol] 108.2 ug/dL 60.0 - 120.0 ug/dL [facility] Comment on above: INTERPRETIVE INFORMA TION: [...] developed and its performance characteristics determined by [facility]. It has not been cleared or approved by the [place] Food and Drug Administration. This test was performed in a CLIA certified laboratory and is intended for clinical purposes. Performed By: [facility] [address] [place] [id number] Box Worker: Estuardo Lutz MD, PhD [facility] 25-hydroxyvitamin D3 [Mass/V ol]on 05-29-2023 Interpretation and review of laboratory results Abnormal [facility] Therapy is based on measurement of Total 25-OHD with the following classification levels: Less than 20 ng/mL: Indicative of Vit D deficiency 20-30 ng/mL: Suggests Vit D insufficiency Optimal: Greater than or equal to 30 ng/mL Test performed by [employer] Immunoassay, measuring Total Vitamin D, not individual fractions. [facility] CBC panel Auto (Bld)Ordered By: Lorie Morgan on 05-29-2023 Erythrocyte distribution width (RBC) [Ratio] 14.6 % High 11.5 - 14.5 % [facility] Hematocrit (Bld) [Volume fraction] 36.6 % 35.0 - 47.0 % [facility] Hemoglobin (Bld) [Mass/Vol] 12.0 g/dL 11.7 - 16.0 g/dL [facility] Interpretation and review of laboratory results Abnormal [facility] MCH (RBC) [Entitic mass] 27.8 pg 26. 0 - 34.0 pg [facility] MCHC (RBC) [Mass/Vol] 32.8 % 32.0 - 36.0 % [facility] MCV (RBC) [Entitic vol] 84.9 fL 80.0 - 98.0 fL [facility] Platelet mean volume (Bld) [Entitic vol] 9.5 fL 7.4 - 12.4 fL [facility] Comment on above: MPV is a calculated measurement using platelet volume ratio Platelets (Bld) [#/Vol] 389 10*3/uL 140 - 440 10*3/uL [facility] RBC (Bld) [#/Vol] 4.31 10*6/uL 3.8 - 5.20 10*6/uL [facility] WBC (Bld) [#/Vol] 7.8 10*3/uL 3.6 - 10.7 10*3/uL [facility] Comprehensive metabolic 1998 panelon 05-29-2023 Albumin [Mass/Vol] 4.5 g/dL 3.5 - 5.0 g/dL [facility] ALP [Catalytic activity/Vol] 73 U/L 38 - 126 U/L [facility] ALT [Catalytic activity/Vol] 30 U/L 0 - 34 U/L [facility] Anion gap [Moles/Vol] 8 mmol/L 3 - 13 mmol/L [facility] AST [Catalytic activity/Vol] 28 U/L 15 - 46 U/L [facility] Bilirubin [Mass/Vol] 0.4 mg/dL 0.2 - 1 .3 mg/dL [facility] Calcium [Mass/Vol] 9.3 mg/dL 8.4 - 10. 4 mg/dL [facility] [facility] Chloride [Moles/Vol] 108 mmol/L High 98 - 10 7 mmol/L [facility] CO2 [Moles/Vol] 23 mmol/L 22 - 30 mmol/L [facility] Creatinine [Mass/Vol] 0.75 mg/dL 0.52 - 1.04 mg/dL [facility] GFR/1.73 sq M.predicted MDRD (S/P/Bld) [Vol rate/Area] - PINF [facility] Comment on above: Calculation based on the Chronic Kidney Disease Epidemiology Collaboration (CKD-EPI) equation refit without adjustment for race Glucose [Mass/Vol] 92 mg/dL 70 - 100 mg/dL [facility] Potassium [Moles/Vol] 4.3 mmol/L 3.5 - 5.1 mmol/L [facility] Protein [Mass/Vol] 8.0 g/dL 6.3 - 8.2 g/dL [facility] Sodium [Moles/Vol] 139 mmol/L 135 - 145 mmol/L [facility] Urea nitrogen [Mass/Vol] 13 mg/dL 7 - 17 mg/dL [facility] Ferritinon 05-29-2023 Ferritin [Mass/Vol] 17 ng/mL 6 - 137 ng/mL [facility] Ferritin [Mass/Vol]on 2022 Interpretation and review of laboratory results Normal [facility] Folateon 05-29-2023 Folate [Mass/Vol] 9.9 ng/mL 2.9 - PINF ng/mL [facility] HbA1c (Bld) [Mass fraction]o n 05-29-2023 Average glucose Estimated from glycated hemoglobin (Bld) [Mass/Vol] 97 mg/dL [facility] Hemoglobin A1con 05-29-2023 HbA1c (Bld) [Mass fraction] 5.0 % NINF - 5.7 % [facility] Comment on above: Normal less than 5.7 % Prediabetes 5.7% to 6.4% Diabetes 6.5% or higher --HgbA1C levels may not be accurate in patients who have renal disease, received recent blood transfusions, are anemic, or who have dyshemoglobinemia. Iron and Iron binding capaci ty panelon 05-29-2023 Interpretation and review of laboratory results Normal [facility] Iron [Mass/Vol] 77 ug/dL 37 - 170 ug/dL [facility] Lipid 1996 panelon Cholesterol [Mass/Vol] 180 mg/dL NINF - 200 mg/dL [facility] Cholesterol in HDL [Mass/Vol] 33 mg/dL Low 40 - 60 mg/dL [facility] Cholesterol in LDL [Mass/Vol] 84 mg/dL 0 - <100 [facility] Cholesterol.total/Choles terol in HDL [Mass ratio] 5 {ratio} [facility] Comment on above: Ref Range: < 3 Low Risk for CHD 3-6 Mod Risk for CHD > 6 High Risk for CHD Triglyceride [Mass/Vol] 317 mg/dL High NINF - 150 mg/dL [facility] Magnesiumon 05-29-2023 Magnesium [Mass/Vol] 2.1 mg/dL 1.6 - 2 .3 mg/dL [facility] Magnesium [Mass/Vol]on 05-29 Interpretation and review of laboratory results Normal [facility] No Panel Informationon 05-29 Interpretation and review of laboratory results Normal [facility] Interpretation and review of laboratory results Abnormal [facility] TSHon 05-29-2023 TSH Qn 2.683 m[IU]/L [facility] h TSH Qnon 05-29-2023 Interpretation and review of laboratory results Normal [facility] Vitamin B12on 05-29-2023 Cobalamin (Vitamin B12) [Mass/Vol] 304 pg/mL 239 - 931 pg/mL [facility] Vitamin D 25 hydroxyon 05-29 25-hydroxyvitamin D3 [Mass/Vol] 25 ng/mL Low 30 - 100 ng/mL [facility] STREP A MOLECULAR (POC)on Procedural Control Valid [facility] Strep A (POCT) Positive Abnormal Negative [facility] Bacteria identified Aer cx N om (Unsp spec)Ordered By: Marilou Vargas on 12-24-2022 [facility] [place] Levelon 12-24-2022 [place] [Moles/Vol] 0.6 mmol/L 0.6 - 1. 2 mmol/L [facility] [place] [Moles/Vol]on 2022 Interpretation and review of laboratory results Normal [facility] Urine Aerobic CultureOrdered By: Marilou Vargas on 01-23-2023 Bacteria identified Aer cx Nom (Unsp spec) > 10,000 CFU/mL mixture of normal urogenital microbiota [facility] Alcohol, Medicalon 3 Ethanol [Mass/Vol] mg/dL NINF - 10.00 mg/dL [facility] Comment on above: Alcohol cutoff: <10. 00 mg/dL = None Detected Basic metabolic 1998 panelon 12-20-2022 Anion gap [Moles/Vol] 13 mmol/L 10 - 2 0 mmol/L [facility] Chloride [Moles/Vol] 106 mmol/L 98 - 10 8 mmol/L [facility] Creatinine [Mass/Vol] 0.92 mg/dL 0.40 - 1.10 mg/dL [facility] GFR/1.73 sq M.predicted CKD-EPI (S/P/Bld) [Vol rate/Area] 91 - PINF [facility] Comment on above: Estimated GFR was ca lculated using the 2020 CKD-EPI creatinine equation. Glucose [Mass/Vol] 87 mg/dL 65 - 99 mg/dL [facility] HCO3 [Moles/Vol] 23 mmol/L 21 - 32 mmol/L [facility] Interpretation and review of laboratory results Normal [facility] Potassium [Moles/Vol] 3.7 mmol/L 3.5 - 5.1 mmol/L [facility] Sodium [Moles/Vol] 138 mmol/L 135 - 145 mmol/L [facility] Urea nitrogen [Mass/Vol] 10 mg/dL 8 - 25 mg/dL [facility] Urea nitrogen/Creatinine [Mass ratio] 10.9 mg/mg 10.0 - 20.0 [facility] has implemented the eGFR calculation approach that does not have a coefficient for race that conforms to the NKF-ASN Task Force Recommendations. [facility] COVID-19, MOLECULARon 2022 SARS-CoV-2 (COVID-19) RNA HUGH+probe Ql (Unsp spec) Not detected Normal Not Detected [facility] Comment on above: Order Comment: This test [...] at the following links: For Healthcare Providers: https://www.fda.gov/media/774528/download For Patients: https://www.fda.gov/media/311502/download Performed By: #### L [id number] #### [facility] [address] [place], [place] [address] Estuardo Dean M.D. [id number] COVID-19, MolecularOrdered B y: Lizz Suarez on 12-20-2022 SARS-CoV-2 (COVID-19) RNA HUGH+probe Ql (Resp) Not detected Not Detected [facility] Ethanol [Mass/Vol]on 023 Interpretation and review of laboratory results Normal [facility] HCG ( test) Ql (U)O rdered By: Brad Trevino on 12-20-2022 Interpretation and review of laboratory results Normal [facility] Lipid 1996 panelon Cholesterol [Mass/Vol] 158 mg/dL 100 - 199 mg/dL [facility] Comment on above: National Cholesterol Education Program Guidelines: Cholesterol Desirable: <200 mg/dL Borderline High: 200-239 mg/dL High: greater than or equal to 240 mg/dL Cholesterol in HDL [Mass/Vol] 31 mg/dL Low 40 - 59 mg/dL [facility] Comment on above: National Cholesterol Education Program Guidelines: HDL Cholesterol Low: <40 mg/dL Near Optimal: 40-59 mg/dL High: greater than or equal to 60 mg/dL Cholesterol in LDL [Mass/Vol] 79 mg/dL 10 - 130 mg/dL [facility] Comment on above: National Cholesterol Education Program Guidelines: LDL Cholesterol Optimal: <100 mg/dL Near Optimal/above Optimal: 100-129 mg/dL Borderline High: 130-159 mg/dL High: 160-189 mg/dL Very High: greater than or equal to 190 mg/dL Cholesterol non HDL [Mass/Vol] 127 mg/dL [facility] Comment on above: National Cholesterol Education Program Guidelines: NON HDL Cholesterol Desirable: <130 mg/dL Borderline High: 130-159 mg/dL High: 160-189 mg/dL Very High: > or = 190 mg/dL Cholesterol.total/Choles terol in HDL [Mass ratio] 5.1 {ratio} ratio [facility] Comment on above: Female Cholesterol/H DL Ratio: Average risk: 4.4 1/2 average risk: 3.3 2 x average risk: 7.1 Interpretation and review of laboratory results Abnormal [facility] Triglyceride [Mass/Vol] 239 mg/dL High 30 - 150 mg/dL [facility] Comment on above: National Cholesterol Education Program Guidelines: Triglyceride Normal: <150 mg/dL Borderline High: 150-199 mg/dL High: 200-499 mg/dL Very High: greater than or equal to 500 mg/dL No Panel Informationon 12-20 [facility] SARS-CoV-2 (COVID-19) RNA NA A+probe Ql (Resp)Ordered By: Lizz Suarez on 12-20-2022 Interpretation and review of laboratory results Normal [facility] This test was performed under the [...] the following links: For Healthcare Providers: https://www.fda.gov/me jones/803310/download For Patients: https://www.fda.gov/pr jones/347265/download [facility] TSH DL <= 0.005 mIU/L Qnon 0 12-20-2022 Interpretation and review of laboratory results Normal [facility] TSH Qn 1.77 m[IU]/L [facility] Urinalysison 12-20-2022 Bacteria Auto Ql (U) None Seen None Se en /hpf [facility] Bilirubin Ql (U) Negative Negative [facility] Clarity Refractometry automated (U) Cloudy Abnormal Clear [facility] Color (U) Yellow Colorless, Yellow [facility] Crystals.amorphous Computer assisted (U) [#/Area] Few Abnormal None Seen, Rare /hpf [facility] Epithelial cells.squamous Auto (Urine sed) [#/Area] 6 High [facility] Glucose Auto test strip (U) [Mass/Vol] Negative Negative mg/dL [facility] Hemoglobin Auto test strip Ql (U) Small Abnormal Negative [facility] Interpretation and review of laboratory results Abnormal [facility] Ketones (U) [Mass/Vol] Negative Negat jackson mg/dL [facility] Leukocyte esterase Auto test strip Ql (U) Large Abnormal Negative [facility] Mucus Auto (Urine sed) [#/Area] Few Abnormal None Seen, Rare /lpf [facility] Nitrite Auto test strip Ql (U) Negative Negative [facility] pH (U) 5.5 [pH] 5.0 - 7.0 [facility] Protein (U) [Mass/Vol] Negative Negat jackson mg/dL [facility] RBC Auto (Urine sed) [#/Area] 4 High [facility] Specific gravity (U) [Rel density] 1.025 1.005 - 1.025 [facility] Transitional cells Computer assisted (U) [#/Area] 1 [facility] Urobilinogen (U) [Mass/Vol] mg/dL NINF - 2.0 mg/dL [facility] WBC Auto (Urine sed) [#/Area] 24 High [facility] Microscopic examination is performed on all urinalysis samples and only positive findings are reported. The test for blood on the chemical analytic portion of urinalysis may also be positive due to hemoglobinuria and myoglobinuria and if red blood cells are present they are quantified by microscopic examination. [facility] Urine Drug Screenon 12-20-19 23 Amphetamines Ql (U) Not detected None Detected [facility] Comment on above: Urine Amphetamine Cu toff: < 1000 ng/mL = None Detected Barbiturates Screen Ql (U) Not detected None Detected [facility] Comment on above: Urine Barbiturates C utoff: < 200 ng/mL = None Detected Benzodiazepines Ql (U) Not detected None Detected [facility] Comment on above: Urine Benzodiazepine Cutoff: < 200 ng/mL = None Detected Buprenorphine Ql (U) Not detected None Detected [facility] Comment on above: Urine Buprenorphine Cutoff: < 5 ng/mL = None Detected Cannabinoids Screen Ql (U) Not detected None Detected [facility] Comment on above: Urine Cannabinoids C utoff: < 50 ng/mL = None Detected Cocaine Ql (U) Not detected None Detected [facility] Comment on above: Urine Cocaine Cutoff : < 300 ng/mL = None Detected fentaNYL+Norfentanyl Screen Ql (U) Not detected None Detected [facility] Comment on above: Urine Fentanyl Cutof f: < 1 ng/mL = None Detected Interpretation and review of laboratory results Normal [facility] Methadone Screen Ql (U) Not detected None Detected [facility] Comment on above: Urine Methadone Cuto ff: < 300 ng/mL = None Detected Opiates Screen Ql (U) Not detected None Detected [facility] Comment on above: Urine Opiates Cutoff : < 300 ng/mL = None Detected oxyCODONE Ql (U) Not detected None Detected [facility] Comment on above: Urine Oxycodone Cuto ff: < 100 ng/mL = None Detected Screen results shoul d be used for treatment purposes only. [facility] Urine PregnancyOrdered By: Phyllis Trevino on 12-20-2022 HCG ( test) Ql (U) Negative Negative [facility] LABORATORYOrdered By: Greg Pollard on 05-08-2022 HIV 1 p24 Ab Ql (S) Non-Reactive (05/08/22 9:23 AM) Invalid Interpretation Code Non-Reactiv e AO Rapid Testing SS HIV 1+2 Ab IA.rapid Ql (Unsp spec) Non-Reactive (05/08/22 9:23 AM) Invalid Interpretation Code Non-Reactiv e AO Rapid Testing SS HIV P24 Int [...] AO Chemistry S GFR Non- 125 ml/min/1.73sqm Inva lid Interpretation Code AO Chemistry S LABORATORYOrdered By: Barrington Thompson on 01-10-2022 Glucose [Mass/Vol] 112 mg/dL Invalid Interpretation Code 70 - 110 mg/dL [facility] Work Phone: LABORATORYOrdered By: Gwen Duvall on 01-10-2022 Group B Strep (PCR) Negative 1 (01/10/22 9:54 AM) Invalid Interpretation Code Negative AH Auto Viro/Sero SS Comment on above: Result Comment: Note s [id number] Group B Strep PCR Int Group B [...] strip (U) [Mass/Vol] Negative Invalid Interpretation Code Negativemg/ dL AO Auto Urine SS Hemoglobin Auto test strip (U) [Mass/Vol] Negative (01/07/22 1:19 PM) Invalid Interpretation Code Negative AO Auto Urine SS Ketones Ql (U) Trace mg/dL Invalid Interpretation Code Negativemg/ dL AO Auto Urine SS UA Leuk Est [...] UA Protein Trace mg/dL Invalid Interpretation Code Negativemg/ dL AO Auto Urine SS UA RBC None [...] UA Urobilinogen 1.0 E.U./dL Invalid Interpretation Code 0.2-1.0E.U. /dL AO Auto Urine SS WBC LM.HPF (Urine [...] strip (U) [Mass/Vol] Negative Invalid Interpretation Code Negativemg/ dL AO Auto Urine SS Hemoglobin Auto test strip (U) [Mass/Vol] Negative (12/13/21 3:53 PM) Invalid Interpretation Code Negative AO Auto Urine SS Ketones Ql (U) Negative Invalid Interpretation Code Negativemg/ dL AO Auto Urine SS UA Leuk Est Negative (12/13/21 3:53 PM) Invalid Interpretation Code Negative AO Auto Urine SS UA Nitrite Negative (12/13/21 3:53 PM) Invalid Interpretation Code Negative AO Auto Urine SS UA pH 6.5 (12/13/21 3:53 PM) Invalid Interpretation Code 5.0 - 8.0 AO Auto Urine SS UA Protein Trace mg/dL Invalid Interpretation Code Negativemg/ dL AO Auto Urine SS UA RBC 0-5 [...] UA Urobilinogen 4.0 E.U./dL Invalid Interpretation Code 0.2-1.0E.U. /dL AO Auto Urine SS WBC LM.HPF (Urine [...] strip (U) [Mass/Vol] Negative Invalid Interpretation Code Negativemg/ dL AO Auto Urine SS Hematocrit (Bld) [Volume fraction] 33.4 % Invalid Interpretation Code 37.0 - 47.0 % AO Auto Heme SS Hemoglobin (Bld) [Mass/Vol] 11.2 G/dL Invalid Interpretation Code 12.0 - 16.0 G/dL AO Auto Heme SS Hemoglobin Auto test strip (U) [Mass/Vol] Negative (09/19/21 10:05 AM) Invalid Interpretation Code Negative AO Auto Urine SS Ketones Ql (U) Negative Invalid Interpretation Code Negativemg/ dL AO Auto Urine SS Lymphocyte, Absolute 1.30 [...] SS UA Protein Negative Invalid Interpretation Code Negativemg/ dL AO Auto Urine SS UA RBC 0-5 [...] UA Urobilinogen 1.0 E.U./dL Invalid Interpretation Code 0.2-1.0E.U. /dL AO Auto Urine SS WBC (Bld) [#/Vol] 10.60 103/mcL Invalid Interpretation Code 4.60 - 10.80 10^3/mcL AO Auto Heme SS WBC LM.HPF (Urine sed) [#/Area] None Seen /HPF Invalid Interpretation Code None Seen/HPF AO Auto Urine SS LABORATORYOrdered By: SYSTEM SYSTEM on 09-19-2021 GFR 164 ml/min/1.73sqm Invalid Interpretation Code AO Chemistry S GFR Non- 135 ml/min/1.73sqm Inva lid Interpretation Code AO Chemistry S Laboratory - [...] Informationon 09-19 Culture Urine Culture results pending. [facility] Work Phone: XR Knee Complete Lefton 04-03 [...] pmSigned by: Yordan Arellano MD Technologist: [facility] CBC and Differentialon 06-11 Abs Baso 0.02 k/uL Normal 0.00-0.10 [facility] Comment on above: Performed By: #### C BCDIF, CMP ####[facility] [address] [place], [place] [phone] Abs [place] 0.43 k/uL Normal 0.00-0.86 [facility] Comment on above: Performed By: #### C BCDIF, CMP ####[facility] [id number] [place] [address] Abs Neut 5.35 k/uL Normal 1.45-7.50 [facility] Comment on above: Performed By: #### C BCDIF, CMP ####[facility] [address] [place] [address] Basophils/100 WBC Auto (Bld) 0.3 % Normal [facility] Comment on above: Performed By: #### C BCDIF, CMP ####[place] [address] Eosinophils 0.08 10*3/uL Normal 0.00-0.45 [facility] Comment on above: Performed By: #### C BCDIF, CMP ####[place] [address] Eosinophils/100 leukocytes 1.1 % Normal [facility] Comment on above: Performed By: #### C BCAMBROCIOF, CMP ####[place] [address] Erythrocyte distribution width Auto Ratio (RBC) 12.8 % Normal 11.5-15.0 [facility] Comment on above: Performed By: #### C BCAMBROCIOF, CMP ####[place] [address] Erythrocytes (RBC) 4.58 10*6/uL Normal 3.90-5.20 [facility] Comment on above: Performed By: #### C BCDIF, CMP ####[place] [address] Hematocrit (HCT) 38.9 % Normal 36.0-46.0 [facility] Comment on above: Performed By: #### C BCDIF, CMP ####[place] [address] Hemoglobin mass conc (Bld) 13.2 g/dL Normal 11.5-15.5 [facility] Comment on above: Performed By: #### C BCDIF, CMP ####[place] [address] Lymphocytes 1.62 10*3/uL Normal 1.00-4.00 [facility] Comment on above: Performed By: #### C BCDIF, CMP ####[facility] [id number] [place] [address] Lymphocytes/100 leukocytes 21.6 % Normal [facility] Comment on above: Performed By: #### C BCDIF, CMP ####[facility] [address] [place] [address] MCH 28.8 pG Normal 26.0-34.0 [facility] Comment on above: Performed By: #### C BCDIF, CMP ####[facility] [address] [place] [address] MCHC mass conc (RBC) 33.9 g/dL Normal 30.5-36.0 [facility] Comment on above: Performed By: #### C BCDIF, CMP ####[facility] [address] [place] [address] MCV 84.9 fL Normal 80.0-100.0 [facility] Comment on above: Performed By: #### C BCDIF, CMP ####[place] [address] Monocytes/100 leukocytes 5.7 % Normal [facility] Comment on above: Performed By: #### C BCDIF, CMP ####[place] [address] Neutrophils/100 WBC Auto (Bld) 71.3 % Normal [facility] Comment on above: Performed By: #### C BCDIF, CMP ####[place] [address] Platelet mean volume (PMV) 9.8 fL Normal 9.0-12.7 [facility] Comment on above: Performed By: #### C BCDIF, CMP ####[facility] [address] [place] [address] Platelets 330 10*3/uL Normal 150-400 [facility] Comment on above: Performed By: #### C BCDIF, CMP ####[facility] [address] [place] [address] WBC (Leukocytes) 7.50 10*3/uL Normal 3.70-11.00 [facility] Comment on above: Performed By: #### C BCDIF, CMP ####[facility] [address] [place] [address] Comp Metabolic Panelon 06-11 Alanine aminotransferase (ALT) 17 U/L Normal 0-45 [facility] Comment on above: Performed By: #### C BCDIF, CMP ####[facility] [address] [place] [address] Albumin 4.5 g/dL Normal 3.5-5.0 [facility] Comment on above: Performed By: #### C BCDIF, CMP ####[facility] [address] [place] [address] Alkaline phosphatase (ALP) 69 U/L Normal 40-195 [facility] Comment on above: Performed By: #### C BCDIF, CMP ####[facility] [address] [place] [address] Anion gap 11 mmol/L Normal 0-15 [facility] Comment on above: Performed By: #### C BCDIF, CMP ####[facility] [address] [place] [address] Aspartate aminotransferase (AST) 16 U/L Normal 7-40 [facility] Comment on above: Performed By: #### C BCDIF CMP ####[place] [address] Bilirubin (total) 0.4 mg/dL Normal 0.0-1.5 [facility] Comment on above: Performed By: #### C BCDIF, CMP ####[facility] [address] [place] [address] Calcium 9.0 mg/dL Normal 8.5-10.5 [facility] Comment on above: Performed By: #### C BCDIF, CMP ####[facility] [address] [place] [address] Chloride 103 mmol/L Normal 98-110 [facility] Comment on above: Performed By: #### C BCDIF, CMP ####[facility] [address] [place] [address] CO2 23 mmol/L Normal 23-32 [facility] Comment on above: Performed By: #### C BCDIF, CMP ####[facility] [address] [place] [address] Creatinine 0.69 mg/dL Normal 0.40-1.30 [facility] Comment on above: Performed By: #### Shivani ANTONIO CMP ####[facility] [address] [place] [address] eGFR (non-black) 0.80 mL/min/{1.73_m2} Normal [facility] Comment on above: Result Comment: eGFR [...] for clinical interpretation. Performed By: #### C VICKY ANTONIO ####[place] [address] Glucose mass conc 88 mg/dL Normal 65-100 [facility] Comment on above: Performed By: #### C VICKY ANTONIO ####[place] [address] Potassium molar conc 4.2 mmol/L Normal 3.5-5.0 [facility] Comment on above: Performed By: #### C VICKY ANTONIO ####[place] [address] Protein 7.0 g/dL Normal 6.0-8.4 [facility] Comment on above: Performed By: #### C VICKY ANTONIO ####[place] [address] Sodium 137 mmol/L Normal 132-148 [facility] Comment on above: Performed By: #### C PACO CMP ####[place] [address] Urea nitrogen 9 mg/dL Normal 5-20 [facility] Comment on above: Performed By: #### C BCDIF, CMP ####[facility] [address] [place] [phone] ED NOTEon 06-11-2017 ED NOTE HNO ID: [id number]: Lorena (Rn) BRAVO Osmanervice: (none)Author Type: Registered NurseType: ED NotesFiled: 06/11/2017 1:50 PMNote Text: Pt discharged to home with mom. Discharge Instructions/ RX x 1/ Follow upInstructions reviewed with mom with teach back method completed. [facility] ED NOTE HNO ID: [id number] Author: Lisa (Rn) Lorne Srivastava RN Service: (none) Author Type: Registered Nurse Type: ED Notes Filed: 06/11/2017 11:31 AM Note Text: Had jennifer horn developed nausea had rt upper quad pain 2 hrs after [facility] ED PROV NOTEon 06-11-2017 ED PROV NOTE HNO ID: [id number]: Krystal Griffiths) Damone: (none)Author Type: Physician AssistantType: ED Provider NotesFiled: 06/11/2017 1:40 PMNote Text:ED Provider NotePatient Name: Martita ChaconRN: [id number] DATE: 06/11/17HistoryPatient presents with:Abdominal Pain: rt upper quad since 2 hr post cheeseburger 06/10HPI Comments: 17-year-old female, with a history of [...] d/t mom testingpositive.PAST SURGICAL HISTORYNo date: ADENOIDECTOMY HX11: APPENDECTOMYNo date: MYRINGOTOMY HXNo date: PAST SURGICAL [...] of benefit. She will be discharged homewith Motrin and will follow with her chef de froid.ED CourseEncounter Diagnosis ICD-10-CM1. Chest wall contusion, right, initial encounter S20.211APlanThe Patient was DISCHARGED: Counseled patient and mother regarding labresults AND radiology results AND suspected diagnosis AND need for follow-up.Discharged home with verbal and written instructions. They wereinstructed to return as needed for persistent or worsening symptoms or anynew concerns.Condition at time of disposition: improvedSIGNATURE: NABEEL Aburto-Elena Varghese (Pa)06/11/17 1340 Normal [facility] HCG Qual, Urineon 06-11-2017 HCG.beta subunit ( test) Ql (U) Negative Normal Negative [facility] Comment on above: Result Comment: Fals e positives and false negatives are rare but have been described. Clinical correlation of the findings is recommended. Performed By: #### U HCG, UA ####[facility] [id number] [place] [address] Urinalysison 06-11-2017 Bilirubin, Urine Negative Normal Negative [facility] Comment on above: Performed By: #### U HCG, UA ####[place] [address] Hemoglobin mass conc (Bld) Negative Normal Negative [facility] Comment on above: Performed By: #### U HCG, UA ####[place] [address] Leukest Negative Normal Negative [facility] Comment on above: Performed By: #### U HCG, UA ####[place] [address] pH of blood 6.5 [pH] Normal 5.0-8.0 [facility] Comment on above: Performed By: #### U HCG, UA ####[place] [address] Protein, Urine Trace Critically abnormal Negative [facility] Comment on above: Performed By: #### U HCG, UA ####[place] [address] Specific [place], Ur 1.015 Normal 1.001-1.029 [facility] Comment on above: Performed By: #### U HCG, UA ####[place] [address] Urine, clarity Clear Normal Clear [facility] Comment on above: Performed By: #### U HCG, UA ####[place] [address] Urine, color Yellow Normal Yellow [facility] Comment on above: Performed By: #### U HCG, UA ####[place] [address] Urine, glucose presence Negative Normal Negative [facility] Comment on above: Performed By: #### U HCG, UA ####[place] [address] Urine, ketones presence Negative Normal Negative [facility] Comment on above: Performed By: #### U HCG, UA ####[facility] [id number] [phone] Urine, nitrite presence Negative Normal Negative [facility] Comment on above: Performed By: #### U HCG, UA ####[facility] [id number] [phone] Urine, urobilinogen 0.2 Normal 0.2-1.0 [facility] Comment on above: Performed By: #### U HCG, UA ####[facility] [id number] [place] [phone] XR CHEST AP PORTABLEon 06-11 XR CHEST [...] on Jun 11 2017 1:31PM EST Normal [facility] Vital Signs Date Time Vital Sign Value Performing Clinician Facility 10-08-2025 22:01-0500 Body temperature 98.8 [degF] Yaron Alvarado MD Work Phone: [facility] 10-08-2025 22:01-0500 Diastolic blood pressure 74 mm[Hg] Yaron Alvarado MD Work Phone: [facility] 10-08-2025 22:01-0500 Heart rate 98 /min Yaron Alvarado MD Work Phone: [facility] 10-08-2025 22:01-0500 Respiratory rate 16 /min Yaron Alvarado MD Work Phone: [facility] 10-08-2025 22:01-0500 SaO2% (BldA) [Mass fraction] 99 % Yaron Alvarado MD Work Phone: [facility] 10-08-2025 22:01-0500 Systolic blood pressure 114 mm[Hg] Yaron Alvarado MD Work Phone: [facility] 10-05-2025 09:20-0500 Body temperature 98.01 [degF] Yaron Alvarado MD Work Phone: [facility] 10-05-2025 09:20-0500 Diastolic blood pressure 101 mm[Hg] Yaron Alvarado MD Work Phone: [facility] 10-05-2025 09:20-0500 Heart rate 77 /min Yaron Alvarado MD Work Phone: [facility] 10-05-2025 09:20-0500 Respiratory rate 20 /min Yaron Alvarado MD Work Phone: [facility] 10-05-2025 09:20-0500 SaO2% (BldA) [Mass fraction] 100 % Yaron Alvarado MD Work Phone: [facility] 10-05-2025 09:20-0500 Systolic blood pressure 146 mm[Hg] Yaron Alvarado MD Work Phone: [facility] 10-05-2025 01:49-0500 Diastolic Blood Pressure Non-Invasive 45 mm[Hg] ROXANN GARCIA DO [facility] 10-05-2025 01:49-0500 Heart rate 84 /min ROXANN GARCIA DO [facility] 10-05-2025 01:49-0500 Respiratory rate 18 /min ROXANN GARCIA DO [facility] 10-05-2025 01:49-0500 Systolic Blood Pressure Non-Invasive 111 mm[Hg] ROXANN GARCIA DO [facility] 10-05-2025 00:33-0500 Diastolic Blood Pressure Non-Invasive 97 mm[Hg] ROXANN GARCIA DO [facility] 10-05-2025 00:33-0500 Heart rate 90 /min ROXANN GACRIA DO [facility] 10-05-2025 00:33-0500 Respiratory rate 20 /min ROXANN GARCIA DO [facility] 10-05-2025 00:33-0500 Systolic Blood Pressure Non-Invasive 141 mm[Hg] ROXANN GARCIA DO [facility] 10-04-2025 23:12-0500 Blood Pressure Cuff Size ROXANN GARCIA DO [facility] 10-04-2025 23:12-0500 Blood Pressure Location ROXANN GARCIA DO [facility] 10-04-2025 23:12-0500 Blood Pressure Method ROXANN GARCIA DO [facility] 10-04-2025 23:12-0500 Body temperature 98.06 [degF] ROXANN GARCIA DO [facility] 10-04-2025 23:12-0500 Diastolic Blood Pressure Non-Invasive 108 mm[Hg] ROXANN GARCIA DO [facility] 10-04-2025 23:12-0500 Heart rate 93 /min ROXANN GARCIA DO [facility] 10-04-2025 23:12-0500 Respiratory rate 16 /min ROXANN GARCIA DO [facility] 10-04-2025 23:12-0500 Systolic Blood Pressure Non-Invasive 148 mm[Hg] ROXANN GARCIA DO [facility] 06-29-2025 17:09-0400 Body temperature 98.1 [degF] Krislyn Aberegg PA Work Phone: [facility] 06-29-2025 17:09-0400 Body weight 81.6 kg Krislyn Aberegg PA Work Phone: [facility] 06-29-2025 17:09-0400 Diastolic blood pressure 72 mm[Hg] Krislyn Aberegg PA Work Phone: [facility] 06-29-2025 17:09-0400 Heart rate 90 /min Krislyn Aberegg PA Work Phone: [facility] 06-29-2025 17:09-0400 Respiratory rate 16 /min Krislyn Aberegg PA Work Phone: [facility] 06-29-2025 17:09-0400 SaO2% (BldA) [Mass fraction] 98 % Krislyn Aberegg PA Work Phone: [facility] 06-29-2025 17:09-0400 Systolic blood pressure 124 mm[Hg] Krislyn Aberegg PA Work Phone: [facility] 03-20-2025 14:17-0400 Diastolic blood pressure 77 mm[Hg] Magda Robin Work Phone: [facility] 03-20-2025 14:17-0400 Heart rate 61 /min Magda Kelly Work Phone: [facility] [facility] 03-20-2025 14:17-0400 Respiratory rate 16 /min Magda Robin Work Phone: [facility] 03-20-2025 14:17-0400 SaO2% (BldA) [Mass fraction] 98 % Magda Kelly Work Phone: [facility] [facility] 03-20-2025 14:17-0400 Systolic blood pressure 127 mm[Hg] Magda Kelly Work Phone: [facility] 03-20-2025 13:28-0400 Body temperature 98.1 [degF] Magda Kelly Work Phone: [facility] 08-24-2024 17:43-0400 Diastolic Blood Pressure Non-Invasive 77 mm[Hg] ANGI FROMMELT DO [facility] 08-24-2024 17:43-0400 Heart rate 72 /min ANGI FROMMELT DO [facility] 08-24-2024 17:43-0400 Respiratory rate 16 /min ANGI FROMMELT DO [facility] 08-24-2024 17:43-0400 Systolic Blood Pressure Non-Invasive 124 mm[Hg] ANGI FROMMELT DO [facility] 08-24-2024 15:59-0400 Body height 142.2 cm ANGI FROMMELT DO [facility] 08-24-2024 15:59-0400 Body temperature 97.16 [degF] ANGI FROMMELT DO [facility] 08-24-2024 15:59-0400 Body weight 79.5 kg ANGI FROMMELT DO [facility] 08-24-2024 15:59-0400 Diastolic Blood Pressure Non-Invasive 88 mm[Hg] ANGI FROMMELT DO [facility] 08-24-2024 15:59-0400 Heart rate 76 /min ANGI FROMMELT DO [facility] 08-24-2024 15:59-0400 Respiratory rate 20 /min ANGI FROMMELT DO [facility] 08-24-2024 15:59-0400 Systolic Blood Pressure Non-Invasive 143 mm[Hg] ANGI FROMMELT DO [facility] 06-23-2024 16:30-0400 Blood Pressure Location PAMELA MARY MD [facility] 06-23-2024 16:30-0400 Blood Pressure Method PAMELA MARY MD [facility] 06-23-2024 16:30-0400 Diastolic Blood Pressure Non-Invasive 72 mm[Hg] PAMELA MARY MD [facility] 06-23-2024 16:30-0400 Heart rate 74 /min PAMELA MARY MD [facility] 06-23-2024 16:30-0400 Respiratory rate 18 /min PAMELA MARY MD [facility] 06-23-2024 16:30-0400 Systolic Blood Pressure Non-Invasive 124 mm[Hg] PAMELA MARY MD [facility] 06-23-2024 14:12-0400 Blood Pressure Location PAMELA MARY MD [facility] 06-23-2024 14:12-0400 Blood Pressure Method PAMELA MARY MD [facility] 06-23-2024 14:12-0400 Body temperature 98.6 [degF] PAMELA MARY MD [facility] 06-23-2024 14:12-0400 Diastolic Blood Pressure Non-Invasive 86 mm[Hg] PAMELA MARY MD [facility] 06-23-2024 14:12-0400 Heart rate 86 /min PAMELA MARY MD [facility] 06-23-2024 14:12-0400 Respiratory rate 18 /min PAMELA MARY MD [facility] 06-23-2024 14:12-0400 Systolic Blood Pressure Non-Invasive 134 mm[Hg] PAMELA MARY MD [facility] 06-11-2024 11:55-0400 Body temperature 98.2 [degF] [facility] FREELANCE WRITER.ACCOUNTING MANAGER CONTROLLER Work Phone: [facility] 06-11-2024 11:55-0400 Body weight 76.2 [facility] FREELANCE WRITER.ACCOUNTING MANAGER CONTROLLER Work Phone: [facility] 06-11-2024 11:55-0400 Diastolic blood pressure 70 mm[Hg] [facility] FREELANCE WRITER.ACCOUNTING MANAGER CONTROLLER Work Phone: [facility] 06-11-2024 11:55-0400 Heart rate 103 /min [facility] FREELANCE WRITER.ACCOUNTING MANAGER CONTROLLER Work Phone: [facility] 06-11-2024 11:55-0400 Respiratory rate 16 /min [facility] FREELANCE WRITER.ACCOUNTING MANAGER CONTROLLER Work Phone: [facility] 06-11-2024 11:55-0400 SaO2% (BldA) [Mass fraction] 99 % [facility] FREELANCE WRITER.ACCOUNTING MANAGER CONTROLLER Work Phone: [facility] 06-11-2024 11:55-0400 Systolic blood pressure 116 mm[Hg] [facility] FREELANCE WRITER.ACCOUNTING MANAGER CONTROLLER Work Phone: [facility] 05-09-2024 01:01-0400 Blood Pressure Location LISA YANG MD [facility] 05-09-2024 01:01-0400 Blood Pressure Method LISA YANG MD [facility] 05-09-2024 01:01-0400 Body height 142.2 cm LISA YANG MD [facility] 05-09-2024 01:01-0400 Body temperature 97.52 [degF] LISA YANG MD [facility] 05-09-2024 01:01-0400 Body weight 77.3 kg LISA YANG MD [facility] 05-09-2024 01:01-0400 Diastolic Blood Pressure Non-Invasive 86 mm[Hg] LISA YANG MD [facility] 05-09-2024 01:01-0400 Heart rate 76 /min LISA YANG MD [facility] 05-09-2024 01:01-0400 Respiratory rate 16 /min LISA YANG MD [facility] 05-09-2024 01:01-0400 Systolic Blood Pressure Non-Invasive 134 mm[Hg] LISA YANG MD [facility] 05-08-2024 15:35-0400 Body height 142.2 cm ELOY LUCERO MD [facility] 05-08-2024 15:35-0400 Body temperature 98.6 [degF] ELOY LUCERO MD [facility] 05-08-2024 15:35-0400 Body weight 77 kg ELOY LUCERO MD [facility] 05-08-2024 15:35-0400 Diastolic Blood Pressure Non-Invasive 73 mm[Hg] ELOY LUCERO MD [facility] 05-08-2024 15:35-0400 Heart rate 82 /min ELOY LUCERO MD [facility] 05-08-2024 15:35-0400 Respiratory rate 14 /min ELOY LUCERO MD [facility] 05-08-2024 15:35-0400 Systolic Blood Pressure Non-Invasive 131 mm[Hg] ELOY LUCERO MD [facility] 04-17-2024 00:01-0400 Diastolic blood pressure 82 mm[Hg] LISA YANG MD [facility] 04-17-2024 00:01-0400 Heart rate 65 /min LISA YANG MD [facility] 04-17-2024 00:01-0400 Respiratory rate 18 /min LISA YANG MD [facility] 04-17-2024 00:01-0400 Systolic blood pressure 133 mm[Hg] LISA YANG MD [facility] 04-16-2024 22:44-0400 Diastolic Blood Pressure Non-Invasive 81 mm[Hg] LISA YANG MD [facility] 04-16-2024 22:44-0400 Heart rate 78 /min LISA YANG MD [facility] 04-16-2024 22:44-0400 Respiratory rate 20 /min LISA YANG MD [facility] 04-16-2024 22:44-0400 Systolic Blood Pressure Non-Invasive 120 mm[Hg] LISA YANG MD [facility] 04-16-2024 16:23-0400 Body temperature 98.24 [degF] LISA YANG MD [facility] 04-16-2024 16:23-0400 Body weight 77.1 kg LISA YANG MD [facility] 04-16-2024 16:23-0400 Diastolic Blood Pressure Non-Invasive 83 mm[Hg] LISA YANG MD [facility] 04-16-2024 16:23-0400 Heart rate 94 /min LISA YANG MD [facility] 04-16-2024 16:23-0400 Respiratory rate 20 /min LISA YANG MD [facility] 04-16-2024 16:23-0400 Systolic Blood Pressure Non-Invasive 133 mm[Hg] LISA YANG MD [facility] 03-07-2024 19:57-0400 Diastolic Blood Pressure Non-Invasive 82 mm[Hg] ELOY LUCERO MD [facility] 03-07-2024 19:57-0400 Heart rate 85 /min ELOY LUCERO MD [facility] 03-07-2024 19:57-0400 Systolic Blood Pressure Non-Invasive 135 mm[Hg] ELOY LUCERO MD [facility] 03-07-2024 19:16-0400 Body height 142.2 cm ELOY LUCERO MD [facility] 03-07-2024 19:16-0400 Body temperature 98.78 [degF] ELOY LUCERO MD [facility] 03-07-2024 19:16-0400 Body weight 83.1 kg ELOY LUCERO MD [facility] 03-07-2024 19:16-0400 Diastolic Blood Pressure Non-Invasive 82 mm[Hg] ELOY LUCERO MD [facility] 03-07-2024 19:16-0400 Heart rate 135 /min ELOY LUCERO MD [facility] 03-07-2024 19:16-0400 Respiratory rate 18 /min ELOY LUCERO MD [facility] 03-07-2024 19:16-0400 Systolic Blood Pressure Non-Invasive 146 mm[Hg] ELOY LUCERO MD [facility] 11-13-2023 20:28-0500 Body temperature 98.24 [degF] ELOY LUCERO MD [facility] 11-13-2023 20:28-0500 Diastolic Blood Pressure Non-Invasive 63 mm[Hg] ELOY LUCERO MD [facility] 11-13-2023 20:28-0500 Heart rate 96 /min ELOY LUCERO MD [facility] 11-13-2023 20:28-0500 Respiratory rate 18 /min ELOY LUCERO MD [facility] 11-13-2023 20:28-0500 Systolic Blood Pressure Non-Invasive 127 mm[Hg] ELOY LUCERO MD [facility] 11-13-2023 19:20-0500 Reason For Taking VItal Signs ELOY LUCERO MD [facility] 11-13-2023 17:21-0500 Blood Pressure Location ELOY LUCERO MD [facility] 11-13-2023 17:21-0500 Blood Pressure Method ELOY LUCERO MD [facility] 11-13-2023 17:21-0500 Body temperature 98.78 [degF] ELOY LUCERO MD [facility] 11-13-2023 17:21-0500 Body weight 88.2 kg ELOY LUCERO MD [facility] 11-13-2023 17:21-0500 Diastolic Blood Pressure Non-Invasive 55 mm[Hg] ELOY LUCERO MD [facility] 11-13-2023 17:21-0500 Heart rate 83 /min ELOY LUCERO MD [facility] 11-13-2023 17:21-0500 Respiratory rate 18 /min ELOY LUCERO MD [facility] 11-13-2023 17:21-0500 Systolic Blood Pressure Non-Invasive 123 mm[Hg] ELOY LUCERO MD [facility] 11-06-2023 10:12-0500 Body height 142.2 cm [facility] Work Phone: [facility] 11-06-2023 10:12-0500 Body mass index (BMI) [Ratio] 43.27 kg/m2 [employer] Work Phone: [facility] [facility] 11-06-2023 10:12-0500 Body weight 87.54 kg for; to (do) [employer] Work Phone: [facility] 09-26-2023 08:01-0400 Body height 142.2 cm Miguelangel Green MD Work Phone: [facility] 09-26-2023 08:01-0400 Body mass index (BMI) [Ratio] 43.36 kg/m2 Miguelangel Green MD Work Phone: [facility] [facility] 09-26-2023 08:01-0400 Body weight 87.73 kg Miguelangel Green MD Work Phone: [facility] 09-26-2023 08:01-0400 Diastolic blood pressure 84 mm[Hg] Miguelangel Green MD Work Phone: [facility] 09-26-2023 08:01-0400 Heart rate 61 /min Miguelangel Green MD Work Phone: [facility] 09-26-2023 08:01-0400 Systolic blood pressure 126 mm[Hg] Miguelangel Green MD Work Phone: [facility] 09-20-2023 09:07-0400 Body temperature 97.59 [degF] Johana Resendez MD Work Phone: [facility] 09-20-2023 09:07-0400 Diastolic blood pressure 70 mm[Hg] Johana Resendez MD Work Phone: [facility] 09-20-2023 09:07-0400 Heart rate 83 /min Johana Resendez MD Work Phone: [facility] 09-20-2023 09:07-0400 SaO2% (BldA) [Mass fraction] 97 % Updamien Resendez MD Work Phone: [facility] 09-20-2023 09:07-0400 Systolic blood pressure 103 mm[Hg] Johana Resendez MD Work Phone: [facility] 09-20-2023 08:30-0400 Respiratory rate 16 /min Johana Resendez MD Work Phone: [facility] 09-17-2023 16:47-0400 Body mass index (BMI) [Ratio] 43 kg/m2 Johana Resendez MD Work Phone: [facility] 09-17-2023 16:47-0400 Body weight 87 kg Johana Resendez MD Work Phone: [facility] 09-17-2023 16:13-0400 Body height 142.2 cm Johana Resendez MD Work Phone: [facility] 08-29-2023 13:47-0400 Body height 147.3 cm Stacy Alaniz CNP Work Phone: [facility] 08-29-2023 13:47-0400 Body mass index (BMI) [Ratio] 40.64 kg/m2 Stacy Alaniz CNP Work Phone: [facility] 08-29-2023 13:47-0400 Body weight 88.18 kg Stacy Alaniz CNP Work Phone: [facility] 08-29-2023 13:47-0400 Diastolic blood pressure 84 mm[Hg] Stacy Alaniz CNP Work Phone: [facility] 08-29-2023 13:47-0400 Heart rate 81 /min Stacy Alaniz CNP Work Phone: [facility] 08-29-2023 13:47-0400 Respiratory rate 20 /min Stacy Alaniz CNP Work Phone: [facility] 08-29-2023 13:47-0400 SaO2% (BldA) [Mass fraction] 99 % Stacy Alaniz CNP Work Phone: [facility] Comment on above: 08-29-2023 13:47-0400 Systolic blood pressure 120 mm[Hg] Stacy Alaniz CNP Work Phone: [facility] 08-19-2023 09:10-0400 Diastolic blood pressure 79 mm[Hg] Ciaran Fritz MD Work Phone: [facility] Comment on above: sitting up 08-19-2023 09:10-0400 Heart rate 80 /min Ciaran Fritz MD Work Phone: [facility] 08-19-2023 09:10-0400 Respiratory rate 16 /min Ciaran Fritz MD Work Phone: [facility] 08-19-2023 09:10-0400 SaO2% (BldA) [Mass fraction] 100 % Ciaran Fritz MD Work Phone: [facility] 08-19-2023 09:10-0400 Systolic blood pressure 128 mm[Hg] Ciaran Fritz MD Work Phone: [facility] Comment on above: sitting up 08-19-2023 08:53-0400 Body temperature 97.2 [degF] Ciaran Fritz MD Work Phone: [facility] 08-19-2023 08:24-0400 Body height 147.3 cm Ciaran Fritz MD Work Phone: [facility] 08-19-2023 08:24-0400 Body mass index (BMI) [Ratio] 40.55 kg/m2 Ciaran Fritz MD Work Phone: [facility] 08-19-2023 08:24-0400 Body weight 88 kg Ciaran Fritz MD Work Phone: [facility] 08-14-2023 13:31-0400 Body height 142.2 cm Mariella Hutchinson PA-C Work Phone: [facility] 08-14-2023 13:31-0400 Body mass index (BMI) [Ratio] 43.56 kg/m2 Mariella Hutchinson PA-C Work Phone: [facility] 08-14-2023 13:31-0400 Body weight 88.13 kg Mariella Hutchinson PA-C Work Phone: [facility] 08-14-2023 13:31-0400 Diastolic blood pressure 74 mm[Hg] Mariella Hutchinson PA-C Work Phone: [facility] 08-14-2023 13:31-0400 Heart rate 74 /min Mariella Hutchinson PA-C Work Phone: [facility] 08-14-2023 13:31-0400 SaO2% (BldA) [Mass fraction] 99 % Mariella Hutchinson PA-C Work Phone: [facility] 08-14-2023 13:31-0400 Systolic blood pressure 108 mm[Hg] Mariella Hutchinson PA-C Work Phone: [facility] 08-12-2023 13:21-0400 Body height 142.2 cm Miguelangel Green MD Work Phone: [facility] 08-12-2023 13:21-0400 Body mass index (BMI) [Ratio] 43.94 kg/m2 Miguelangel Green MD Work Phone: [facility] 08-12-2023 13:21-0400 Body weight 88.91 kg Miguelangel Green MD Work Phone: [facility] 08-12-2023 13:21-0400 Diastolic blood pressure 74 mm[Hg] Miguelangel Green MD Work Phone: [facility] 08-12-2023 13:21-0400 Heart rate 80 /min Miguelangel Green MD Work Phone: [facility] 08-12-2023 13:21-0400 Respiratory rate 16 /min Miguelangel Green MD Work Phone: [facility] 08-12-2023 13:21-0400 Systolic blood pressure 110 mm[Hg] Miguelangel Green MD Work Phone: [facility] 07-22-2023 12:42-0400 Body height 142.2 cm Belgica Strange MD Work Phone: [facility] 07-22-2023 12:42-0400 Body mass index (BMI) [Ratio] 43.27 kg/m2 Belgica Strange MD Work Phone: [facility] [facility] 07-22-2023 12:42-0400 Body weight 87.54 kg Belgica Strange MD Work Phone: [facility] 07-22-2023 12:42-0400 Diastolic blood pressure 87 mm[Hg] Belgica Strange MD Work Phone: [facility] 07-22-2023 12:42-0400 Heart rate 111 /min Belgica Strange MD Work Phone: [facility] 07-22-2023 12:42-0400 SaO2% (BldA) [Mass fraction] 98 % Belgica Strange MD Work Phone: [facility] 07-22-2023 12:42-0400 Systolic blood pressure 125 mm[Hg] Belgica Strange MD Work Phone: [facility] 07-20-2023 13:40-0400 Body temperature 98.8 [degF] Magda Guzman FREELANCE WRITER.ACCOUNTING MANAGER CONTROLLER Work Phone: [facility] 07-20-2023 13:40-0400 Body weight 88.27 kg Magda Guzman FREELANCE WRITER.ACCOUNTING MANAGER CONTROLLER Work Phone: [facility] 07-20-2023 13:40-0400 Diastolic blood pressure 80 mm[Hg] Magda Guzman FREELANCE WRITER.ACCOUNTING MANAGER CONTROLLER Work Phone: [facility] 07-20-2023 13:40-0400 Heart rate 103 /min Magda Guzman FREELANCE WRITER.ACCOUNTING MANAGER CONTROLLER Work Phone: [facility] 07-20-2023 13:40-0400 Respiratory rate 18 /min Magda Guzman FREELANCE WRITER.ACCOUNTING MANAGER CONTROLLER Work Phone: [facility] 07-20-2023 13:40-0400 SaO2% (BldA) [Mass fraction] 99 % Magda Guzman FREELANCE WRITER.ACCOUNTING MANAGER CONTROLLER Work Phone: [facility] 07-20-2023 13:40-0400 Systolic blood pressure 122 mm[Hg] Magda Guzman FREELANCE WRITER.ACCOUNTING MANAGER CONTROLLER Work Phone: [facility] 07-15-2023 14:13-0400 Body height 142.2 cm Miguelangel Green MD Work Phone: [facility] 07-15-2023 14:13-0400 Body mass index (BMI) [Ratio] 43.14 kg/m2 Miguelangel Green MD Work Phone: [facility] 07-15-2023 14:13-0400 Body weight 87.27 kg Miguelangel Green MD Work Phone: [facility] 07-15-2023 14:13-0400 Diastolic blood pressure 84 mm[Hg] Miguelangel Green MD Work Phone: [facility] 07-15-2023 14:13-0400 Heart rate 111 /min Miguelangel Green MD Work Phone: [facility] 07-15-2023 14:13-0400 Systolic blood pressure 130 mm[Hg] Miguelangel Grene MD Work Phone: [facility] 06-19-2023 13:39-0400 Body height 142.[address] Work Phone: [facility] 06-19-2023 13:39-0400 Body mass index (BMI) [Ratio] 42.55 kg/m2 Ling Arriaga RD Work Phone: [facility] 06-19-2023 13:39-0400 Body weight 86.[address] Work Phone: [facility] 06-13-2023 12:21-0400 Body height 142.2 cm Miguelangel Green MD Work Phone: [facility] 06-13-2023 12:21-0400 Body mass index (BMI) [Ratio] 42.6 kg/m2 Miguelangel Green MD Work Phone: [facility] 06-13-2023 12:21-0400 Body weight 86.18 kg Miguelangel Green MD Work Phone: [facility] 06-13-2023 12:21-0400 Diastolic blood pressure 86 mm[Hg] Miguelangel Green MD Work Phone: [facility] 06-13-2023 12:21-0400 Heart rate 88 /min Miguelangel Green MD Work Phone: [facility] 06-13-2023 12:21-0400 Systolic blood pressure 122 mm[Hg] Miguelangel Green MD Work Phone: [facility] 05-31-2023 19:54-0400 Body height 142.[address] RAHUL PALACIOS MD [facility] 05-31-2023 19:54-0400 Body temperature 98.24 [degF] DR RAHUL PALACIOS MD [facility] 05-31-2023 19:54-0400 Body weight 81.[address] RAHUL PALACIOS MD [facility] 05-31-2023 19:54-0400 Diastolic Blood Pressure Non-Invasive [address] RAHUL PALACIOS MD [facility] 05-31-2023 19:54-0400 Heart rate 90 /min DR RAHUL PALACIOS MD [facility] 05-31-2023 19:54-0400 Respiratory rate 18 /min DR RAHUL PALACIOS MD [facility] 05-31-2023 19:54-0400 Systolic Blood Pressure Non-Invasive [address] RAHUL PALACIOS MD [facility] 05-01-2023 11:42-0400 Body height 146.1 cm Ciaran Fritz MD Work Phone: [facility] Comment on above: [facility] 05-01-2023 11:42-0400 Body mass index (BMI) [Ratio] 39.94 kg/m2 Ciaran Fritz MD Work Phone: [facility] 05-01-2023 11:42-0400 Body temperature 97.7 [degF] Ciaran Fritz MD Work Phone: [facility] 05-01-2023 11:42-0400 Body weight 85.19 kg Ciaran Fritz MD Work Phone: [facility] 05-01-2023 11:42-0400 Diastolic blood pressure 87 mm[Hg] Ciaran Fritz MD Work Phone: [employer] 05-01-2023 11:42-0400 Heart rate 79 /min Ciaran Fritz MD Work Phone: [employer] [facility] 05-01-2023 11:42-0400 Respiratory rate 16 /min Ciaran Fritz MD Work Phone: [facility] 05-01-2023 11:42-0400 Systolic blood pressure 119 mm[Hg] Ciaran Fritz MD Work Phone: [facility] 03-05-2023 14:44-0400 Body temperature 98.2 [degF] Krislyn Aberegg PA Work Phone: [facility] 03-05-2023 14:44-0400 Body weight 83.55 kg Krislyn Aberegg PA Work Phone: [facility] 03-05-2023 14:44-0400 Diastolic blood pressure 82 mm[Hg] Krislyn Aberegg PA Work Phone: [facility] 03-05-2023 14:44-0400 Heart rate 134 /min Krislyn Aberegg PA Work Phone: [facility] 03-05-2023 14:44-0400 Respiratory rate 18 /min Krislyn Aberegg PA Work Phone: [facility] 03-05-2023 14:44-0400 SaO2% (BldA) [Mass fraction] 98 % Krislyn Aberegg PA Work Phone: [facility] 03-05-2023 14:44-0400 Systolic blood pressure 128 mm[Hg] Krislyn Aberegg PA Work Phone: [facility] 01-09-2023 15:21-0500 Body height 142.2 cm Belgica Strange MD Work Phone: [facility] 01-09-2023 15:21-0500 Body mass index (BMI) [Ratio] 41.92 kg/m2 Belgica Strange MD Work Phone: [facility] 01-09-2023 15:21-0500 Body weight 84.82 kg Belgiac Strange MD Work Phone: [facility] 01-09-2023 15:21-0500 Diastolic blood pressure 82 mm[Hg] Belgica Strange MD Work Phone: [facility] 01-09-2023 15:21-0500 Heart rate 79 /min Belgica Strange MD Work Phone: [facility] 01-09-2023 15:21-0500 Respiratory rate 16 /min Belgica Strange MD Work Phone: [facility] 01-09-2023 15:21-0500 SaO2% (BldA) [Mass fraction] 96 % Belgica Strange MD Work Phone: [facility] 01-09-2023 15:21-0500 Systolic blood pressure 120 mm[Hg] Belgica Strange MD Work Phone: [facility] 12-24-2022 12:24-0500 Heart rate 118 /min Mohit Blakely MD Work Phone: [facility] 12-24-2022 12:24-0500 SaO2% (BldA) [Mass fraction] 97 % Mohit Blakely MD Work Phone: [facility] 12-24-2022 07:46-0500 Body temperature 98.01 [degF] Mohit Blakely MD Work Phone: [facility] 12-24-2022 07:46-0500 Diastolic blood pressure 74 mm[Hg] Mohit Blakely MD Work Phone: [facility] 12-24-2022 07:46-0500 Respiratory rate 16 /min Mohit Blakely MD Work Phone: [facility] 12-24-2022 07:46-0500 Systolic blood pressure 110 mm[Hg] Mohit Blakely MD Work Phone: [facility] 12-20-2022 20:02-0500 Body mass index (BMI) [Ratio] 41.92 kg/m2 Mohit Blakely MD Work Phone: [facility] 12-20-2022 20:02-0500 Body weight 84.82 kg Mohit Blakely MD Work Phone: [facility] 12-20-2022 19:31-0500 Body height 142.2 cm Mohit Blakely MD Work Phone: [facility] 12-20-2022 12:09-0500 Diastolic blood pressure 86 mm[Hg] Belgica Strange MD Work Phone: [facility] 12-20-2022 12:09-0500 Heart rate 84 /min Belgica Strange MD Work Phone: [facility] 12-20-2022 12:09-0500 Respiratory rate 16 /min Belgica Strange MD Work Phone: [facility] 12-20-2022 12:09-0500 SaO2% (BldA) [Mass fraction] 99 % Belgica Strange MD Work Phone: [facility] 12-20-2022 12:09-0500 Systolic blood pressure 121 mm[Hg] Belgica Strange MD Work Phone: [facility] 10-31-2022 12:29-0500 Body height 142.2 cm Belgica tSrange MD Work Phone: [facility] 10-31-2022 12:29-0500 Body mass index (BMI) [Ratio] 42.6 kg/m2 Belgica Strange MD Work Phone: [facility] 10-31-2022 12:29-0500 Body weight 86.18 kg Belgica Strange MD Work Phone: [facility] 10-31-2022 12:29-0500 Diastolic blood pressure 77 mm[Hg] Belgica Strange MD Work Phone: [facility] 10-31-2022 12:29-0500 Heart rate 90 /min Belgica Strange MD Work Phone: [facility] 10-31-2022 12:29-0500 Respiratory rate 17 /min Belgica Strange MD Work Phone: [facility] 10-31-2022 12:29-0500 SaO2% (BldA) [Mass fraction] 92 % Belgica Strange MD Work Phone: [facility] 10-31-2022 12:29-0500 Systolic blood pressure 117 mm[Hg] Belgica Strange MD Work Phone: [facility] 10-10-2022 13:27-0500 Body height 142.2 cm Belgica Strange MD Work Phone: [facility] 10-10-2022 13:27-0500 Body mass index (BMI) [Ratio] 39.23 kg/m2 Belgica Strange MD Work Phone: [facility] 10-10-2022 13:27-0500 Body weight 79.38 kg Belgica Strange MD Work Phone: [facility] 10-10-2022 13:27-0500 Diastolic blood pressure 76 mm[Hg] Belgica Strange MD Work Phone: [facility] 10-10-2022 13:27-0500 Heart rate 87 /min Belgica Strange MD Work Phone: [facility] 10-10-2022 13:27-0500 Respiratory rate 16 /min Belgica Strange MD Work Phone: [facility] 10-10-2022 13:27-0500 SaO2% (BldA) [Mass fraction] 98 % Belgica Strange MD Work Phone: [facility] 10-10-2022 13:27-0500 Systolic blood pressure 124 mm[Hg] Belgica Strange MD Work Phone: [facility] 06-14-2022 13:11-0400 Body height 142.2 cm Belgica Strange MD Work Phone: [facility] 06-14-2022 13:11-0400 Body mass index (BMI) [Ratio] 39.23 kg/m2 Belgica Strange MD Work Phone: [facility] 06-14-2022 13:11-0400 Body weight 79.38 kg Belgica Strange MD Work Phone: [facility] 06-14-2022 13:11-0400 Diastolic blood pressure 86 mm[Hg] Belgica Strange MD Work Phone: [facility] 06-14-2022 13:11-0400 Heart rate 85 /min Belgica Strange MD Work Phone: [facility] 06-14-2022 13:11-0400 Respiratory rate 16 /min Belgica Strange MD Work Phone: [facility] 06-14-2022 13:11-0400 SaO2% (BldA) [Mass fraction] 97 % Belgica Strange MD Work Phone: [facility] 06-14-2022 13:11-0400 Systolic blood pressure 126 mm[Hg] Belgica Strange MD Work Phone: [facility] 04-05-2022 15:44-0400 Body height 142.2 cm Belgica Strange MD Work Phone: [facility] 04-05-2022 15:44-0400 Body mass index (BMI) [Ratio] 39.23 kg/m2 Belgica Strange MD Work Phone: [facility] 04-05-2022 15:44-0400 Body weight 79.38 kg Belgica Strange MD Work Phone: [facility] 04-05-2022 15:44-0400 Diastolic blood pressure 79 mm[Hg] Belgica Strange MD Work Phone: [facility] 04-05-2022 15:44-0400 Heart rate 106 /min Belgica Strange MD Work Phone: [facility] 04-05-2022 15:44-0400 Respiratory rate 16 /min Belgica Strange MD Work Phone: [facility] 04-05-2022 15:44-0400 SaO2% (BldA) [Mass fraction] 98 % Belgica Strange MD Work Phone: [facility] 04-05-2022 15:44-0400 Systolic blood pressure 109 mm[Hg] Belgica Strange MD Work Phone: [facility] 02-26-2022 07:31-0400 Body temperature 97.81 [degF] Belgica Strange MD Work Phone: [facility] 02-26-2022 07:31-0400 Diastolic blood pressure 84 mm[Hg] Belgica Strange MD Work Phone: [facility] 02-26-2022 07:31-0400 Heart rate 107 /min Belgica Strange MD Work Phone: [facility] 02-26-2022 07:31-0400 Respiratory rate 16 /min Belgica Strange MD Work Phone: [facility] 02-26-2022 07:31-0400 SaO2% (BldA) [Mass fraction] 98 % Belgica Strange MD Work Phone: [facility] 02-26-2022 07:31-0400 Systolic blood pressure 127 mm[Hg] Belgica Strange MD Work Phone: [facility] 02-23-2022 16:00-0400 Body height 142.2 cm Belgica Strange MD Work Phone: [facility] 02-23-2022 16:00-0400 Body mass index (BMI) [Ratio] 37.44 kg/m2 Belgica Strange MD Work Phone: [facility] 02-23-2022 16:00-0400 Body weight 75.75 kg Belgica Strange MD Work Phone: [facility] 01-31-2022 15:20-0500 Body temperature 97.34 [degF] SUMMER ROSA MD [facility] 01-31-2022 15:20-0500 Diastolic blood pressure 64 mm[Hg] SUMMER ROSA MD [facility] 01-31-2022 15:20-0500 Heart rate 83 /min SUMMER ROSA MD [facility] 01-31-2022 15:20-0500 Mean blood pressure 80 mm[Hg] SUMMER ROSA MD [facility] 01-31-2022 15:20-0500 Respiratory rate 16 /min SUMMER ROSA MD [facility] 01-31-2022 15:20-0500 Systolic blood pressure 113 mm[Hg] SUMMER ROSA MD [facility] 01-31-2022 08:23-0500 Body temperature 97.16 [degF] SUMMER ROSA MD [facility] 01-31-2022 08:23-0500 Diastolic blood pressure 82 mm[Hg] SUMMER ROSA MD [facility] 01-31-2022 08:23-0500 Heart rate 89 /min SUMMER ROSA MD [facility] 01-31-2022 08:23-0500 Mean blood pressure 99 mm[Hg] SUMMER ROSA MD [facility] 01-31-2022 08:23-0500 Respiratory rate 16 /min SUMMER ROSA MD [facility] 01-31-2022 08:23-0500 Systolic blood pressure 132 mm[Hg] SUMMER ROSA MD [facility] 01-31-2022 00:15-0500 Body temperature 98.78 [degF] SUMMER ROSA MD [facility] 01-31-2022 00:15-0500 Diastolic blood pressure 79 mm[Hg] SUMMER ROSA MD [facility] 01-31-2022 00:15-0500 Heart rate 87 /min SUMMER ROSA MD [facility] 01-31-2022 00:15-0500 Mean blood pressure 96 mm[Hg] SUMMER ROSA MD [facility] 01-31-2022 00:15-0500 Respiratory rate 16 /min SUMMER ROSA MD [facility] 01-31-2022 00:15-0500 Systolic blood pressure 130 mm[Hg] SUMMER ROSA MD [facility] 01-30-2022 04:12-0500 Body temperature 98.78 [degF] SUMMER ROSA MD [facility] 01-30-2022 02:07-0500 Body temperature 98.24 [degF] SUMMER ROSA MD [facility] 01-30-2022 00:31-0500 Body temperature 98.24 [degF] SUMMER ROSA MD [facility] 01-29-2022 09:35-0500 Diastolic Blood Pressure NBP 87 1 SUMMER ROSA MD [facility] 01-29-2022 09:35-0500 Systolic Blood Pressure NBP 144 1 SUMMER ROSA MD [facility] 01-29-2022 09:30-0500 Diastolic Blood Pressure NBP 79 1 SUMMER ROSA MD [facility] 01-29-2022 09:30-0500 Systolic Blood Pressure NBP 140 1 SUMMER ROSA MD [facility] 01-29-2022 09:25-0500 Diastolic Blood Pressure NBP 75 1 SUMMER ROSA MD [facility] 01-29-2022 09:25-0500 Systolic Blood Pressure NBP 142 1 SUMMER ROSA MD [facility] 01-29-2022 06:36-0500 Body height 142.2 cm SUMMER ROSA MD [facility] 01-29-2022 06:36-0500 Body weight 80 kg SUMMER ROSA MD [facility] 01-29-2022 06:36-0500 Body weight 39.56 kg/m2 SUMMER ROSA MD [facility] 01-10-2022 14:16-0500 Diastolic blood pressure 70 mm[Hg] DR SUZAN BLACKMAN DO [facility] 01-10-2022 14:16-0500 Systolic blood pressure 131 mm[Hg] DR SUZAN BLACKMAN DO [facility] 01-10-2022 14:05-0500 Body temperature 97.88 [degF] DR SUZAN BLACKMAN DO [facility] 01-10-2022 14:05-0500 Diastolic blood pressure 63 mm[Hg] DR SUZAN BLACKMAN DO [facility] 01-10-2022 14:05-0500 Heart rate 96 /min DR SUZAN BLACKMAN DO [facility] 01-10-2022 14:05-0500 Mean blood pressure 84 mm[Hg] DR SUZAN BLACKMAN DO [facility] 01-10-2022 14:05-0500 Respiratory rate 18 /min DR SUZAN BLACKMAN DO [facility] 01-10-2022 14:05-0500 Systolic blood pressure 125 mm[Hg] DR SUZAN BLACKMAN DO [facility] 01-10-2022 13:58-0500 Body height 142.[address] SUZAN BLACKMAN DO [facility] 01-10-2022 13:58-0500 Body weight 81.[address] SUZAN BLACKMAN DO [facility] 01-10-2022 13:58-0500 Body weight 40.45 kg/m2 DR SUZAN BLACKMAN DO [facility] 01-07-2022 15:30-0500 Body temperature 98.06 [degF] SUMMER ROSA MD [facility] 01-07-2022 15:30-0500 Diastolic blood pressure 84 mm[Hg] SUMMER ROSA MD [facility] 01-07-2022 15:30-0500 Heart rate 84 /min SUMMER ROSA MD [facility] 01-07-2022 15:30-0500 Mean blood pressure 100 mm[Hg] SUMMER ROSA MD [facility] 01-07-2022 15:30-0500 Respiratory rate 18 /min SUMMER ROSA MD [facility] 01-07-2022 15:30-0500 Systolic blood pressure 131 mm[Hg] SUMMER ROSA MD [facility] 01-07-2022 14:00-0500 Body temperature 97.88 [degF] SUMMER ROSA MD [facility] 01-07-2022 14:00-0500 Diastolic blood pressure 72 mm[Hg] SUMMER ROSA MD [facility] 01-07-2022 14:00-0500 Heart rate 74 /min SUMMER ROSA MD [facility] 01-07-2022 14:00-0500 Mean blood pressure 77 mm[Hg] SUMMER ROSA MD [facility] 01-07-2022 14:00-0500 Systolic blood pressure 86 mm[Hg] SUMMER ROSA MD [facility] 01-07-2022 13:30-0500 Body temperature 98.6 [degF] SUMMER ROSA MD [facility] 01-07-2022 13:30-0500 Diastolic blood pressure 76 mm[Hg] SUMMER ROSA MD [facility] 01-07-2022 13:30-0500 Heart rate 97 /min SUMMER ROSA MD [facility] 01-07-2022 13:30-0500 Mean blood pressure 88 mm[Hg] SUMMER ROSA MD [facility] 01-07-2022 13:30-0500 Respiratory rate 18 /min SUMMER ROSA MD [facility] 01-07-2022 13:30-0500 Systolic blood pressure 112 mm[Hg] SUMMER ROSA MD [facility] 01-07-2022 12:10-0500 Body height 142.2 cm SUMMER ROSA MD [facility] 01-07-2022 12:10-0500 Body weight 80 kg SUMMER ROSA MD [facility] 01-07-2022 12:10-0500 Body weight 39.56 kg/m2 SUMMER ROSA MD [facility] 12-13-2021 15:38-0500 Body temperature 98.24 [degF] GISELE YANG MD [facility] 12-13-2021 15:38-0500 Diastolic blood pressure 72 mm[Hg] GISELE YANG MD [facility] 12-13-2021 15:38-0500 Heart rate 101 /min GISELE YANG MD [facility] 12-13-2021 15:38-0500 Mean blood pressure 91 mm[Hg] GISELE YANG MD [facility] 12-13-2021 15:38-0500 Respiratory rate 18 /min GISELE YANG MD [facility] 12-13-2021 15:38-0500 Systolic blood pressure 130 mm[Hg] GISELE YANG MD [facility] 12-13-2021 15:32-0500 Body height 142.2 cm GISELE YANG MD [facility] 12-13-2021 15:32-0500 Body weight 76 kg GISELE YANG MD [facility] 12-13-2021 15:32-0500 Body weight 37.58 kg/m2 GISELE YANG MD [facility] 10-13-2021 16:44-0500 Body height 142.2 cm GISELE YANG MD [facility] 10-13-2021 16:44-0500 Body weight 78.5 kg GISELE YANG MD [facility] 10-13-2021 16:44-0500 Body weight 38.82 kg/m2 GISELE YANG MD [facility] 10-13-2021 16:44-0500 Diastolic blood pressure 65 mm[Hg] GISELE YANG MD [facility] 10-13-2021 16:44-0500 Heart rate 76 /min GISELE YANG MD [facility] 10-13-2021 16:44-0500 Mean blood pressure 85 mm[Hg] GISELE YANG MD [facility] 10-13-2021 16:44-0500 Respiratory rate 18 /min GISELE YANG MD [facility] 10-13-2021 16:44-0500 Systolic blood pressure 126 mm[Hg] GISELE YANG MD [facility] 09-20-2021 07:44-0400 Body temperature 98.24 [degF] RICHARD REBECA FREELANCE WRITER-CNM [facility] 09-20-2021 07:44-0400 Diastolic blood pressure 68 mm[Hg] RICHARD REBECA FREELANCE WRITER-CNM [facility] 09-20-2021 07:44-0400 Heart rate 92 /min RICHARD REBECA FREELANCE WRITER-CNM [facility] 09-20-2021 07:44-0400 Mean blood pressure 81 mm[Hg] RICHARD REBECA FREELANCE WRITER-CNM [facility] 09-20-2021 07:44-0400 Respiratory rate 20 /min RICHARD REBECA FREELANCE WRITER-CNM [facility] 09-20-2021 07:44-0400 Systolic blood pressure 107 mm[Hg] RICHARD REBECA FREELANCE WRITER-CNM [facility] 09-20-2021 00:12-0400 Body temperature 98.06 [degF] RICHARD REBECA FREELANCE WRITER-CNM [facility] 09-20-2021 00:12-0400 Diastolic blood pressure 46 mm[Hg] RICHARD REBECA FREELANCE WRITER-CNM [facility] 09-20-2021 00:12-0400 Heart rate 76 /min RICHARD REBECA FREELANCE WRITER-CNM [facility] 09-20-2021 00:12-0400 Mean blood pressure 67 mm[Hg] RICHARD REBECA FREELANCE WRITER-CNM [facility] 09-20-2021 00:12-0400 Respiratory rate 18 /min RICHARD REBECA FREELANCE WRITER-CNM [facility] 09-20-2021 00:12-0400 Systolic blood pressure 108 mm[Hg] RICHARD REBECA FREELANCE WRITER-CNM [facility] 09-19-2021 16:10-0400 Body temperature 98.24 [degF] RICHARD REBECA FREELANCE WRITER-CNM [facility] 09-19-2021 16:10-0400 Diastolic blood pressure 41 mm[Hg] RICHARD REBECA FREELANCE WRITER-CNM [facility] 09-19-2021 16:10-0400 Heart rate 81 /min RICHARD REBECA FREELANCE WRITER-CNM [facility] 09-19-2021 16:10-0400 Mean blood pressure 66 mm[Hg] RICHARD REBECA FREELANCE WRITER-CNM [facility] 09-19-2021 16:10-0400 Respiratory rate 18 /min RICHARD REBECA FREELANCE WRITER-CNM [facility] 09-19-2021 16:10-0400 Systolic blood pressure 116 mm[Hg] RICHARD VARGAS FREELANCE WRITER-CNM [facility] 09-19-2021 10:24-0400 Body height 142.2 cm RICHARD VARGAS FREELANCE WRITER-CNM [facility] 09-19-2021 10:24-0400 Body weight 680 kg RICHARD VARGAS FREELANCE WRITER-CNM [facility] 09-19-2021 10:24-0400 Body weight 336.29 kg/m2 RICHARD VARGAS FREELANCE WRITER-CNM [facility] Encounters Encounter Date Encounter Type Care Provider Facility Start: 10-08-2025 End: 10-09-2025 Emergency department patient visit [facility] Comment on above: Daniella (HCC) (Primary Dx) Start: 10-06-2025 End: 10-07-2025 Emergency department patient visit [facility] Facility:[facility] Start: 10-05-2025 End: 10-05-2025 Subsequent hospital visit by physician [facility] Non-Invasive Cardiology Comment on above: Arrived Start: 10-05-2025 End: 10-05-2025 Emergency department patient visit Yaron Alvarado MD Work Phone: [facility] Comment on above: Eloped from emergenc y department (Primary Dx); Left against medical advice Start: 10-04-2025 End: 10-05-2025 Emergency department patient visit ROXANN GARCIA DO [facility] Start: 09-16-2025 ambulatory Mariella Barajas Facility [facility] Start: 09-08-2025 End: 09-08-2025 ambulatory ALVAREZ TSAI Facility:[facility] Start: 09-08-2025 End: 09-08-2025 ambulatory ALVAREZ TSAI Facility:[facility] Start: 08-18-2025 End: 08-18-2025 Emergency department patient visit DR NADIR MCADAMS DO [facility] Start: 08-17-2025 End: 08-17-2025 ambulatory Magda Kelly [facility] Start: 07-28-2025 End: 07-28-2025 E-mail encounter from caregiver Alvarez Tsai PA-C Work Phone: Rheumatology Start: 07-28-2025 End: 07-28-2025 Patient encounter procedure Alvarez Quin PA-C Work Phone: Rheumatology Comment on above: Upcoming Rheumatolog y Appointment Start: 07-16-2025 End: 07-16-2025 ambulatory HERMELINDO HUNT PA-C Facility:[facility] Start: 07-16-2025 End: 07-16-2025 Patient encounter procedure HERMELINDO HUNT PA-C [facility] Start: 07-15-2025 End: 07-16-2025 Emergency department patient visit DR YARON ESQUIVEL MD [facility] Start: 07-06-2025 End: 07-06-2025 ambulatory [place] [facility] Start: 07-06-2025 End: 07-06-2025 ambulatory Efettabe Mario Albertoe Facility:[facility] Start: 07-06-2025 End: 07-06-2025 ambulatory Suzan Fernandez Facility:[facility] Start: 06-30-2025 End: 06-30-2025 Emergency department patient visit Shine Van Facility:[facility] Start: 06-29-2025 End: 06-29-2025 Subsequent hospital visit by physician Xr [facility] Work Phone: Radiology Comment on above: Acute cough [R05.1] Start: 06-29-2025 End: 06-29-2025 Patient encounter procedure Bernie LEES Work Phone: [facility] Comment on above: Acute cough (Primary Dx); Muscle spasm of back Start: 06-29-2025 End: 06-29-2025 ambulatory BERNIE FANG Facility:[facility] Start: 06-29-2025 End: 06-29-2025 Follow-up encounter Bernie LEES Work Phone: [facility] Comment on above: Results Start: 06-17-2025 End: 06-17-2025 Emergency department patient visit Lobito Donnelly Facility:[facility] Start: 06-10-2025 End: 06-10-2025 ambulatory [facility] Facility:[facility] Start: 06-07-2025 End: 06-07-2025 [facility]ulatory [facility] Start: 05-13-2025 End: 05-13-2025 ambulatory [facility] Facility:[facility] Start: 05-03-2025 End: 05-03-2025 ambulatory [facility] Start: 04-29-2025 End: 04-29-2025 ambulatory [facility] Start: 04-09-2025 End: 04-09-2025 ambulatory [facility] Facility[facility] Start: 04-07-2025 End: 04-07-2025 ambulatory Arslan LEES Facility:[facility] Start: 03-23-2025 ambulatory Peggy Rodriguez Facility: [facility] Start: 03-20-2025 End: 03-20-2025 Emergency department patient visit MAGDA KELLY [facility] Comment on above: Corneal abrasion due to contact lens, right (Primary Dx) Start: 03-11-2025 ambulatory Candida Vale Facility :[facility] Start: 02-09-2025 End: 02-09-2025 ambulatory Peggy Rodriguez Facility:[facility] Start: 12-29-2024 End: 12-29-2024 ambulatory Peggy Rodriguez Facility:[facility] Start: 12-01-2024 End: 12-01-2024 ambulatory Roxann Erazo Facility:[facility] Start: 11-10-2024 End: 11-10-2024 ambulatory Roxann Erazo Facility:[facility] Start: 10-16-2024 End: 10-16-2024 ambulatory Roxann Erazo Facility:[facility] Start: 09-02-2024 End: 09-02-2024 ambulatory Lucy Conte MD Work Phone: Gastroenterology Comment on above: Irritable bowel synd stevo with constipation (Primary Dx) Start: 09-02-2024 End: 09-02-2024 Telemedicine consultation with patient Lucy Conte MD Work Phone: Gastroenterology Start: 08-24-2024 End: 08-24-2024 Emergency department patient visit ANGI ANICETOSILVIA HINTON [facility] Start: 06-23-2024 End: 06-23-2024 Emergency department patient visit PAMELA MARY MD [facility] Start: 06-11-2024 End: 06-11-2024 Subsequent hospital visit by physician Francisco [facility] Work Phone: Radiology Comment on above: Acute pain of right shoulder [M25.511] Start: 06-11-2024 End: 06-11-2024 Office outpatient visit 25 minutes David Carreon APRN.CNP Work Phone: [facility] Comment on above: Acute pain of right shoulder (Primary Dx) Start: 05-11-2024 ambulatory Jojo polo RN [facility] Start: 05-11-2024 Patient encounter procedure Jojo Mckeon RN [facility] Start: 05-09-2024 End: 05-09-2024 Emergency department patient visit LISA YANG MD [facility] Start: 05-08-2024 End: 05-08-2024 Emergency department patient visit ELOY LUCERO MD [facility] Start: 04-16-2024 End: 04-17-2024 Emergency department patient visit LISA YANG MD [facility] Start: 03-07-2024 End: 03-07-2024 Emergency department patient visit ELOY LUCERO MD [facility] Start: 11-13-2023 End: 11-13-2023 Emergency department patient visit ELOY LUCERO MD [facility] Start: 11-06-2023 End: 11-06-2023 Subsequent hospital visit by physician Mariella Hutchinson PA-C Work Phone: [facility] Non-Invasive Cardiology Comment on above: Shortness of breath; PVC (premature ventricular contraction) Start: 09-26-2023 End: 09-26-2023 Office outpatient visit 25 minutes Miguelangel Green MD Work Phone: [facility] [place] Comment on above: Morbid obesity due t o excess calories (HCC) (Primary Dx); Pre-diabetes Start: 09-17-2023 End: 09-20-2023 Evaluation and management of inpatient [facility] Start: 09-17-2023 End: 09-20-2023 Evaluation and management of inpatient Johana Resendez MD Work Phone: [facility] Start: 09-05-2023 ambulatory BELGICA STRANGE [facility] Start: 08-29-2023 End: 08-29-2023 Office outpatient visit 25 minutes Stacy Alaniz CNP Work Phone: [facility] Comment on above: Mild intermittent as thma, unspecified whether complicated (Primary Dx); Morbid obesity with BMI of 40.0-44.9, adult (HCC); Sleep disorder Start: 08-21-2023 Telephone encounter Julia Reynolds [facility] [place] Comment on above: Abnormal Lab (+ H py michael) Start: 08-20-2023 ambulatory Gisselle Marr RN [facility] Clinical Communication Start: 08-20-2023 Patient encounter procedure Gisselle Marr RN [facility] Start: 08-20-2023 Telephone encounter Ciaran johnson MD Work Phone: [facility] Clinical Communication Comment on above: Page[employer] Start: 08-20-2023 End: 08-20-2023 Subsequent hospital visit by physician Mariella Hutchinson PA-C Work Phone: [facility] Non-Invasive Cardiology Comment on above: Shortness of breath; PVC (premature ventricular contraction) Start: 08-19-2023 End: 08-19-2023 Subsequent hospital visit by physician Ciaran Fritz MD Work Phone: [facility] Comment on above: Gastro-esophageal re flux disease without esophagitis Start: 08-15-2023 Telephone encounter Mariella LEES-C Work Phone: [facility] Comment on above: OTHER Start: 08-14-2023 End: 08-14-2023 Office outpatient new 45 minutes Mariella LEES-C Work Phone: [facility] Comment on above: PVC (premature ventr icular contraction) (Primary Dx); Shortness of breath; Morbid obesity with BMI of 40.0-44.9, adult (HCC); Preoperative clearance; Prediabetes Start: 08-14-2023 End: 08-14-2023 Preoperative state Mariella LEES-C Work Phone: [facility] [employer] Start: 08-13-2023 ambulatory Jeremy Helton FREELANCE WRITER - ACCOUNTING MANAGER CONTROLLER Work Phone: [facility] [place] Start: 08-12-2023 End: 08-12-2023 Office outpatient visit 25 minutes Miguelangel Green MD Work Phone: [facility] [place] Comment on above: Morbid obesity due t o excess calories (HCC) (Primary Dx); Pre-diabetes Start: 07-22-2023 End: 07-26-2023 ambulatory PHYSICIAN [facility] Start: 07-22-2023 End: 07-22-2023 Office outpatient visit 25 minutes Belgica Strange MD Work Phone: [facility] Comment on above: Schizoaffective diso rder, bipolar type with good prognostic features (HCC) (Primary Dx); Bipolar 1 disorder, mixed, moderate (HCC) Start: 07-20-2023 End: 07-20-2023 Patient encounter procedure Magda Megan FREELANCE WRITER.ACCOUNTING MANAGER CONTROLLER Work Phone: [facility] Comment on above: Acute pain of left k nee (Primary Dx) Start: 07-15-2023 End: 07-15-2023 Office outpatient visit 25 minutes Miguelangel Green MD Work Phone: [facility] [place] Comment on above: Morbid obesity due t o excess calories (HCC) (Primary Dx); Pre-diabetes Start: 07-05-2023 Refill Belgica love MD Work Phone: [facility] Comment on above: Bipolar 1 disorder, mixed, moderate (HCC) (Primary Dx) Start: 06-26-2023 End: 06-26-2023 ambulatory [facility] Start: 06-26-2023 End: 06-26-2023 Subsequent hospital visit by physician Jeremy Helton FREELANCE WRITER - ACCOUNTING MANAGER CONTROLLER Work Phone: [facility] Comment on above: Gastroesophageal ref lux disease without esophagitis; Prediabetes; Morbid obesity with BMI of 40.0-44.9, adult (HCC); Vitamin D deficiency Start: 06-19-2023 End: 06-19-2023 Clinical Support Ciaran Fritz MD Work Phone: [facility] [place] Comment on above: Prediabetes (Primary Dx) Start: 06-13-2023 End: 06-13-2023 Office outpatient new 45 minutes Miguelangel Green MD Work Phone: [facility] [place] Comment on above: Snoring (Primary Dx) Start: 05-31-2023 End: 05-31-2023 Emergency department patient visit DR RAHUL PALACIOS MD [facility] Start: 05-29-2023 Telephone encounter Romina ramos ALEX Work Phone: [facility] Comment on above: Abnormal Lab (Low Vi tamin d, low normal B12) Gastro-esophageal re flux disease without esophagitis (Primary Dx); Morbid (severe) obesity due to excess calories (HCC); Body mass index (BMI) 40.0-44.9, adult (HCC); Vitamin D deficiency, unspecified; Prediabetes Start: 05-13-2023 Documentation procedure Ciaran Fritz MD Work Phone: [facility] Comment on above: EGD (EGD order) Start: 05-01-2023 Patient encounter status Jeremy Helton FREELANCE WRITER - ACCOUNTING MANAGER CONTROLLER Work Phone: [facility] Start: 05-01-2023 Telephone encounter Jeremy Sharpe lynnejosé FREELANCE WRITER - ACCOUNTING MANAGER CONTROLLER Work Phone: [facility] Comment on above: Financial File (Ivon ncial File 2022); Surgery Scheduling (Initial scheduling-orders placed) Start: 05-01-2023 End: 05-01-2023 Office outpatient new 45 minutes Ciaran Fritz MD Work Phone: [facility] Comment on above: Vitamin D deficiency ; Morbid obesity with BMI of 40.0-44.9, adult (HCC); Gastroesophageal reflux disease without esophagitis; Prediabetes Start: 04-08-2023 Documentation procedure Wilmar Strange MD Work Phone: [facility] Provider Psychiatry Start: 03-07-2023 ambulatory [facility] Start: 03-05-2023 End: 03-05-2023 Patient encounter procedure Bernie LEES Work Phone: [facility] Comment on above: Strep pharyngitis (P rimary Dx); Throat pain Start: 02-28-2023 ambulatory GISELE FLORES [facility] Start: 02-22-2023 Documentation procedure Wilmar Strange MD Work Phone: [facility] Provider Psychiatry Start: 01-09-2023 End: 01-09-2023 ambulatory PHYSICIAN [facility] Start: 01-09-2023 End: 01-09-2023 Office outpatient visit 10 minutes Belgica Strange MD Work Phone: [facility] Comment on above: Schizoaffective diso rder, bipolar type (HCC) (Primary Dx) Start: 12-20-2022 End: 12-24-2022 Evaluation and management of inpatient BELGICA STRANGE [facility] Start: 12-20-2022 End: 12-20-[address] [facility] Start: 12-20-2022 End: 12-24-2022 Evaluation and management of inpatient Mohit Blakely MD Work Phone: [facility] Start: 12-20-2022 End: 12-20-2022 Office outpatient visit 25 minutes Belgica Strange MD Work Phone: [facility] Comment on above: Bipolar 1 disorder, mixed, moderate (HCC) Start: 12-05-2022 Refill Belgica love MD Work Phone: [facility] Comment on above: Bipolar 1 disorder, mixed, moderate (HCC) Start: 11-28-2022 End: 11-28-2022 ambulatory BELGICA STRANGE [facility] Start: 10-31-2022 End: 10-31-2022 ambulatory BELGICA STRANGE [facility] Start: 10-31-2022 End: 10-31-2022 Office outpatient visit 15 minutes Belgica Strange MD Work Phone: [facility] Comment on above: Bipolar 1 disorder, mixed, moderate (HCC) (Primary Dx); Bipolar I disorder with depression (HCC) Start: 10-10-2022 End: 10-10-2022 ambulatory BELGICA STRANGE [facility] Start: 10-10-2022 End: 10-10-2022 Office outpatient visit 25 minutes Belgica Strange MD Work Phone: [facility] Comment on above: Bipolar 1 disorder, mixed, moderate (HCC) Start: 08-15-2022 Refill Srinivas Costello MA [facility] Comment on above: Bipolar 1 disorder, mixed, moderate (HCC) (Primary Dx) Bipolar 1 disorder, mixed, moderate (HCC) Start: 06-14-2022 End: 06-14-2022 Office outpatient visit 15 minutes Belgica Strange MD Work Phone: [facility] Comment on above: Bipolar I disorder w ith depression (HCC) (Primary Dx) Start: 05-08-2022 End: 05-08-2022 Patient encounter procedure RICHARD VARGAS APRN-CNM [facility] Start: 04-05-2022 End: 04-05-2022 Office outpatient visit 15 minutes Belgica Strange MD Work Phone: [facility] Comment on above: Bipolar II disorder major depressive with onset (HCC) (Primary Dx) Start: 04-04-2022 End: 04-08-2022 Outreach Lab ANABELLE DE LA CRUZJIM THOMASN-ACCOUNTING MANAGER CONTROLLER [facility] Start: 02-23-2022 End: 02-26-2022 Evaluation and management of inpatient Belgica Strange MD Work Phone: [facility] Start: 01-29-2022 End: 01-31-2022 Evaluation and management of inpatient SUMMER ROSA MD [facility] Start: 01-18-2022 End: 01-18-2022 Admission to establishment SUMMER ROSA MD [facility] Start: 01-10-2022 End: 01-10-[address] SUZAN BLACKMAN DO [facility] Start: 01-09-2022 End: 01-13-2022 Outreach Lab RICHARD REBECA WHITLOCK-CNJeison [facility] Start: 01-07-2022 End: 01-07-2022 SAME DAY STAY SUMMER ROSA MD [facility] Start: 12-13-2021 End: 12-13-2021 SAME DAY STAY GISELE YANG MD [facility] Start: 12-11-2021 End: 12-11-2021 Patient encounter procedure RICHARD VARGAS APRN-CNM [facility] Start: 10-17-2021 End: 10-17-2021 Patient encounter procedure JUNG SHAH MD [facility] Start: 10-13-2021 End: 10-13-2021 SAME DAY STAY GISELE YANG MD [facility] Start: 09-19-2021 End: 09-20-2021 SAME DAY STAY RICHARD REBECA WHITLOCK-CNJeison [facility] Start: 09-15-2021 End: 09-15-2021 Patient encounter procedure RICHARD VARGAS APRN-CNM [facility] Start: 03-29-2021 ambulatory DEBRA SMITH Facility: [facility] Start: 05-19-2018 Ambulatory RICKY Ferguson [facility] Start: 05-01-2018 End: 05-01-2018 Emergency department patient visit David Lee Wolfgang Facility:[facility] Start: 03-16-2018 End: 03-16-2018 Ambulatory LIBIA GLEASON [facility] Start: 06-11-2017 End: 06-11-2017 Emergency department patient visit [facility] Procedures Date Procedure Procedure Detail Performing Clinician Start: 10-08-2025 Radiologic exam ches t single view Yaron Alvarado MD Work Phone: Start: 10-08-2025 Assay of troponin quantitative Yaron Alvarado MD Work Phone: Start: 10-08-2025 Drug tst prsmv instr mnt chem analyzers pr date Yaron Alvarado MD Work Phone: Start: 10-08-2025 Urine test visual color cmprsn meths Yaron Alvarado MD Work Phone: Start: 10-08-2025 Urnls dip stick/tabl et reagent auto microscopy Yaron Alvarado MD Work Phone: Start: 10-08-2025 Ecg routine ecg w/le ast 12 lds trcg only w/o i&r Yaron Alvarado MD Work Phone: Start: 10-08-2025 Comprehensive metabo lic panel Yaron Alvarado MD Work Phone: Start: 10-08-2025 Drug screen analgesi cs non-opioid 1 or 2 Yaron Alvarado MD Work Phone: Start: 10-08-2025 SARS-CoV-2 (COVID-19 ) Ag [Presence] in Respiratory specimen by Rapid immunoassay Yaron Alvarado MD Work Phone: Start: 10-05-2025 Ecg routine ecg w/le ast 12 lds trcg only w/o i&r Yaron Alvarado MD Work Phone: Start: 06-29-2025 Radiologic exam ches t 2 views Sumeetisnilo LEES Work Phone: Start: 06-11-2024 Radex shoulder compl ete minimum 2 views David Valverdenicholas THOMASN.ACCOUNTING MANAGER CONTROLLER Work Phone: Start: 11-06-2023 Echo tthrc r-t 2d w/ wom-mode compl spec&colr d Mariella CHAC Work Phone: Start: 09-21-2023 Electrocardiogram Upend er Dipti AMCIAS Work Phone: Start: 09-19-2023 Drug screen quantita tive lithium Johana Resendez MD Work Phone: Start: 09-18-2023 End: 09-18-2023 Comprehensive metabolic panel Johana Resendez MD Work Phone: Start: 09-18-2023 Lipid panel Johana blount MD Work Phone: Start: 08-14-2023 Ecg routine ecg w/le ast 12 lds w/i&r Ananda Kinsey MD Work Phone: Start: 06-26-2023 Radiologic exam upr gi trc single contrast study Jeremy R Tishale FREELANCE WRITER - ACCOUNTING MANAGER CONTROLLER Work Phone: Start: 06-26-2023 Us abdominal real ti me w/image documentation Jeremy R Bridle FREELANCE WRITER - ACCOUNTING MANAGER CONTROLLER Work Phone: Start: 05-29-2023 Comprehensive metabo lic panel Jeremy R Bridle FREELANCE WRITER - ACCOUNTING MANAGER CONTROLLER Work Phone: Start: 05-29-2023 Lipid panel Jeremy R Br idle FREELANCE WRITER - ACCOUNTING MANAGER CONTROLLER Work Phone: Start: 05-29-2023 Lipid 1996 panel - S meseret or Plasma Romina Lynch RD Work Phone: Start: 05-29-2023 Thyrotropin [Units/v olume] in Serum or Plasma Romina Lynch RD Work Phone: Start: 03-05-2023 STREP A MOLECULAR (POC) Bernie LEES Work Phone: Start: 12-24-2022 Drug screen quantita tive lithium Belgica Strange MD Work Phone: Start: 12-22-2022 Culture bacterial quanttative colony count urine Therese Dia Porter PA-C Work Phone: Start: 12-20-2022 Blood ethanol [...] MD Work Phone: Start: 12-02-2007 Appendectomy RICHARD SANDOVAL FREELANCE WRITER-CNM delivery - delivered (finding) ANABELLE DE LA CRUZON FREELANCE WRITER-ACCOUNTING MANAGER CONTROLLER H/O: section S/P matt an section( Confirmed ) SUMMER ROSA MD Operation on adenoids RICHARD VARGAS FREELANCE WRITER-CNM Structure of wisdom tooth (body structure) RICHARD VARGAS APRN-CNM Tympanostomy RICHARD VARGAS APRN-CN Tympanotomy SUMMER ROSA MD Comment on above: X5 Plan of Treatment Date Care Activity Detail Author Start: 02-09-2076 RSV Immunization for Adults (1 - 1-dose 75+ series) RSV Immunization for Adults (1 - 1-dose 75+ series) [facility] Start: 2061 RSV Immunization aged 60 or older (1 - 1-dose 60+ series) RSV Immunization aged 60 or older (1 - 1-dose 60+ series) [facility] Start: 2051 Zoster Vaccines (1 of 2) Zoster Vaccines (1 of 2) [facility] Start: 03-04-2034 DTaP/Tdap/Td Vaccines (9 - Td or Tdap) DTaP/Tdap/Td Vaccines (9 - Td or Tdap) [facility] Start: 03-04-2034 Urine microalbumin profile DTaP,Tdap,Td Vaccine (9 - Td or Tdap) [facility] Start: 11-23-2031 DTaP/Tdap/Td Vaccines (8 - Td or Tdap) DTaP/Tdap/Td Vaccines (8 - Td or Tdap) [facility] Start: 11-23-2031 Tetanus vaccination Tetanus: Every 10yrs [facility] Start: 05-29-2028 Lipid panel Lipid Panel [facility] Start: 10-08-2026 Diabetes: Estimated Glomerular Filtration Rate for Kidney Health Diabetes: Estimated Glomerular Filtration Rate for Kidney Health [facility] Start: 09-07-2025 Diabetes: Estimated Glomerular Filtration Rate for Kidney Health Diabetes: Estimated Glomerular Filtration Rate for Kidney Health [facility] Start: 08-04-2025 End: 08-04-2025 Patient encounter procedure 08/04/2025 8:00 AM EDT Office Visit Rheumatology [address] [place], [place] [id number] Alvarez Tsai PA-C [address] [place] [address] inflammation / arthritis Rheumatology Comment on above: inflammation / arthritis Start: 08-02-2025 COVID-19 Vaccine ( season) COVID-19 Vaccine ( season) [facility] Start: 08-02-2025 Influenza vaccination [facility] Start: 09-18-2024 Hemoglobin A1c measurement Diabetes: Hemoglobin A1C [facility] Start: 09-02-2024 End: 09-02-2024 ambulatory 09/02/2024 8:30 AM EDT [facility] [address] [address] Lucy Conte MD [address] [place] [address] Blood in Stool Gastroenterology Comment on above: Blood in Stool Start: 08-02-2024 Covid-19 Vaccine ( season) Covid-19 Vaccine () [facility] Start: 08-02-2024 Covid-19 Vaccine () Covid-19 Vaccine () [facility] Start: 08-02-2024 Influenza vaccination [facility] Start: 07-01-2024 End: 07-01-2024 Patient encounter procedure 07/01/2024 2:30 PM EDT Office Visit [facility] [address] [place] [address] Hyacinth Lama MD [address] [place] [id number] [facility] Start: 05-29-2024 Diabetes: Estimated Glomerular Filtration Rate for Kidney Health Diabetes: Estimated Glomerular Filtration Rate for Kidney Health [facility] Start: 05-29-2024 Hemoglobin A1c measurement Diabetes: Hemoglobin A1C [facility] Start: 05-29-2024 Lipid panel Lipid Panel [facility] Start: 05-29-2024 Thyroid stimulating hormone measurement TSH Level [facility] Start: 12-02-2023 Behavioral Health Screening Behavioral Health Screening [facility] Start: 11-28-2023 Hemoglobin A1c measurement A1C [facility] Start: 11-11-2023 End: 11-11-2023 Patient encounter procedure 11/11/2023 1:00 PM EST Office Visit [facility] [address] [place] [id number] Mariella Hutchinson PA-C [address] [place] [address] [facility] Start: 11-06-2023 End: 11-06-2023 Patient encounter procedure 11/06/2023 10:00 AM EST Appointment [facility] Non-Invasive Cardiology [address] [place] [address] [facility] Non-Invasive Cardiology Start: 11-04-2023 End: 11-04-2023 Clinical Support 11/04/2023 8:30 PM EST Clinical Support [facility] Sleep Lab [address] [place] [phone] Stacy Mccabe, FREELANCE WRITER - ACCOUNTING MANAGER CONTROLLER [address] [place] [address] [facility] Sleep Lab Start: 10-02-2023 End: 08-21-2024 Helicobacter pylori Ag [Presence] in Stool by Immunoassay H. pylori Stool Antigen Microbiology Routine H. pylori infection Expected: 10/02/2023, Expires: 08/21/2024 [facility] Work Phone: Comment on above: Expected: 10/02/2023, Expires: 4 Start: 09-23-2023 End: 09-20-2024 [place] [Moles/volume] in Serum or Plasma [place] Level Lab Routine Schizoaffective disorder, bipolar type (HCC) Long-term use of high-risk medication Expected: 09/23/2023, Expires: 09/20/2024 [facility] Comment on above: Expected: 09/23/2023, Expires: 4 Start: 09-18-2023 End: 09-18-2023 Patient encounter procedure 09/18/2023 1:30 PM EDT Office Visit [facility] [address] [place] [address] Belgica Strange MD [address] [place] [address] [facility] Start: 09-16-2023 End: 09-16-2023 Patient encounter procedure 09/16/2023 2:50 PM EDT Office Visit [facility] [place] [address] [place] [phone] Miguelangel Green MD [address] [place] [address] [facility] [place] Start: 09-03-2023 End: 06-03-2024 25-hydroxyvitamin D3 [Mass/volume] in Serum or Plasma Vitamin D 25 hydroxy Lab Routine Low vitamin D level Expected: 09/03/2023 (Approximate), Expires: 06/03/2024 [facility] Work Phone: Comment on above: Expected: 09/03/2023 (Approximate), Expi res: 06/03/2024 Start: 09-03-2023 End: 06-03-2024 Cobalamin (Vitamin B12) [Mass/volume] in Serum or Plasma Vitamin B12 Lab Routine Low vitamin B12 level Expected: 09/03/2023 (Approximate), Expires: 06/03/2024 [facility] Comment on above: Expected: 09/03/2023 (Approximate), Expi res: 06/03/2024 Start: 08-29-2023 End: 08-29-2023 Patient encounter procedure 08/29/2023 2:10 PM EDT Office Visit [facility] [address] [place] [phone] Stacy Mccabe FREELANCE WRITER - ACCOUNTING MANAGER CONTROLLER [address] [place], [place] [id number] [facility] Start: 08-29-2023 End: 08-29-2024 Polysomnography Pol[facility] Routine Sleep disorder Expected: 08/29/2023 (Approximate), Expires: 08/29/2024 [facility] Work Phone: Comment on above: Expected: 08/29/2023 (Approximate), Expi res: 08/29/2024 Start: 08-21-2023 End: 08-21-2023 Patient encounter procedure 08/21/2023 1:40 PM EDT Office Visit [facility] [address] [place] [phone] Stacy Mccabe FREELANCE WRITER - ACCOUNTING MANAGER CONTROLLER [address] [place] [address] [facility] Start: 08-20-2023 End: 08-20-2023 Patient encounter procedure [facility] Non-Invasive [facility] Start: 08-19-2023 End: 08-19-2023 Admission to same day surgery center 08/19/2023 9:00 AM EDT - 08/19/2023 9:30 AM EDT Surgery [facility] [address] [place] [phone] Ciaran Fritz MD [address] [place], [place] [id number] EGD WITH BIOPSY [21729 (CPT )] [facility] [address] [facility] Comment on above: EGD WITH BIOPSY [85458 (CPT )] Start: 08-19-2023 Subsequent hospital visit by physician 08/19/2023 9:00 AM EDT Hospital Encounter [facility] [address] [facility] [place] [address] Ciaran Fritz MD [address] [place], [place] [id number] [facility] [address] [facility] Start: 08-19-2023 End: 08-19-2023 Egd transoral biopsy single/multiple [facility] Start: 08-14-2023 End: 08-14-2025 Cardiac holter monitor (24 hours) Cardiac holter monitor (24 hours) [facility] Routine Shortness of breath PVC (premature ventricular contraction) Expected: 08/14/2023 (Approximate), Expires: 08/14/2025 [facility] Work Phone: Comment on above: Expected: 08/14/2023 (Approximate), Expi res: 08/14/2025 Start: 08-14-2023 End: 08-14-2025 US Heart Transthoracic Transthoracic echocardiogram (TTE) complete with contrast, bubble, strain, and 3D PRN CV Echocardiography Routine Shortness of breath PVC (premature ventricular contraction) Expected: 08/14/2023 (Approximate), Expires: 08/14/2025 [facility] Comment on above: Expected: 08/14/2023 (Approximate), Expi res: 08/14/2025 Start: 08-14-2023 End: 08-14-2023 Patient encounter procedure 08/14/2023 1:30 PM EDT Office Visit [facility] [address] [place] [phone] Mariella Hutchinson PA-C [address] [place] [address] [facility] Start: 08-13-2023 End: 08-12-2024 Nicotine, Blood Nicotine, Blood Lab Routine Vitamin D deficiency Pre-operative laboratory examination Encounter for tobacco use screening Expected: 08/13/2023, Expires: 08/12/2024 [facility] Comment on above: Expected: 08/13/2023, Expires: Start: 08-12-2023 End: 08-12-2023 Patient encounter procedure 08/12/2023 2:50 PM EDT Office Visit [facility] [place] [address] [place] [phone] Miguelangel Green MD [address] [place] [address] [address] [place], [place] [phone] [facility] [place] Start: 08-02-2023 COVID-19 Vaccine ( season) COVID-19 Vaccine ( season) [facility] Start: 08-02-2023 Influenza vaccination [facility] Start: 07-31-2023 End: 07-31-2023 Patient encounter procedure 07/31/2023 12:30 PM EDT Office Visit [facility] [address] [place] [address] Belgica Strange MD [facility] [address] [facility] Start: 07-15-2023 End: 07-15-2023 Patient encounter procedure 07/15/2023 2:50 PM EDT Office Visit [facility] [place] [address] [place] [phone] Miguelangel Green MD [address] [place], [place] [phone] [facility] [place] Start: 06-26-2023 End: 06-26-2023 Patient encounter procedure [facility] [address] [facility] Start: 06-19-2023 End: 06-19-2023 Clinical Support 06/19/2023 1:00 PM EDT Clinical Support [facility] [place] [address] [place] [phone] Ciaran Fritz MD [address] [place], [place] [phone] Ling Arriaga RD [address] [place], [place] [phone] [facility] [place] Start: 06-17-2023 Urine microalbumin profile DTAP,TDAP,TD (7 - Td or Tdap) [facility] Start: 06-13-2023 End: 06-13-2023 Patient encounter procedure 06/13/2023 12:30 PM EDT Office Visit [facility] [place] [address] [place] [phone] Miguelangel Green MD [address] [place], [place] [phone] [facility] [place] Start: 05-29-2023 End: 05-29-2023 Patient encounter procedure 05/29/2023 1:00 PM EDT Office Visit [facility] [address] [place] [address] Belgica Strange MD [facility] [place] [address] [address] [facility] Start: 05-27-2023 End: 05-13-2024 25-hydroxyvitamin D3 [Mass/volume] in Serum or Plasma Vitamin D 25 hydroxy Lab Routine Gastroesophageal reflux disease without esophagitis Prediabetes Morbid obesity with BMI of 40.0-44.9, adult (HCC) Vitamin D deficiency Expected: 05/27/2023 (Approximate), Expires: 05/13/2024 [facility] Comment on above: Expected: 05/27/2023 (Approximate), Expi res: 05/13/2024 Start: 05-27-2023 End: 05-13-2024 CBC panel - Blood by Automated count CBC Lab Routine Gastroesophageal reflux disease without esophagitis Prediabetes Morbid obesity with BMI of 40.0-44.9, adult (HCC) Vitamin D deficiency Expected: 05/27/2023 (Approximate), Expires: 05/13/2024 [facility] Comment on above: Expected: 05/27/2023 (Approximate), Expi res: 05/13/2024 Start: 05-27-2023 End: 05-13-2024 Cobalamin (Vitamin B12) [Mass/volume] in Serum or Plasma Vitamin B12 Lab Routine Gastroesophageal reflux disease without esophagitis Prediabetes Morbid obesity with BMI of 40.0-44.9, adult (HCC) Vitamin D deficiency Expected: 05/27/2023 (Approximate), Expires: 05/13/2024 [facility] Comment on above: Expected: 05/27/2023 (Approximate), Expi res: 05/13/2024 Start: 05-27-2023 End: 05-13-2024 Comprehensive metabolic 1998 panel - Serum or Plasma Comprehensive metabolic panel Lab Routine Gastroesophageal reflux disease without esophagitis Prediabetes Morbid obesity with BMI of 40.0-44.9, adult (HCC) Vitamin D deficiency Expected: 05/27/2023 (Approximate), Expires: 05/13/2024 [facility] Comment on above: Expected: 05/27/2023 (Approximate), Expi res: 05/13/2024 Start: 05-27-2023 End: 05-13-2024 Ferritin [Mass/volume] in Serum or Plasma Ferritin Lab Routine Gastroesophageal reflux disease without esophagitis Prediabetes Morbid obesity with BMI of 40.0-44.9, adult (HCC) Vitamin D deficiency Expected: 05/27/2023 (Approximate), Expires: 05/13/2024 [facility] Comment on above: Expected: 05/27/2023 (Approximate), Expi res: 05/13/2024 Start: 05-27-2023 End: 05-13-2024 Folate [Mass/volume] in Serum or Plasma Folate Lab Routine Gastroesophageal reflux disease without esophagitis Prediabetes Morbid obesity with BMI of 40.0-44.9, adult (HCC) Vitamin D deficiency Expected: 05/27/2023 (Approximate), Expires: 05/13/2024 [facility] Comment on above: Expected: 05/27/2023 (Approximate), Expi res: 05/13/2024 Start: 05-27-2023 End: 05-13-2024 Hemoglobin A1c measurement Hemoglobin A1c Lab Routine Gastroesophageal reflux disease without esophagitis Prediabetes Morbid obesity with BMI of 40.0-44.9, adult (HCC) Vitamin D deficiency Expected: 05/27/2023 (Approximate), Expires: 05/13/2024 [employer] Work Phone: Comment on above: Expected: 05/27/2023 (Approximate), Expi res: 05/13/2024 Start: 05-27-2023 End: 05-13-2024 Hemoglobin A1c/Hemoglobin.total in Blood Hemoglobin A1c Lab Routine Gastroesophageal reflux disease without esophagitis Prediabetes Morbid obesity with BMI of 40.0-44.9, adult (HCC) Vitamin D deficiency Expected: 05/27/2023 (Approximate), Expires: 05/13/2024 [employer] Work Phone: Comment on above: Expected: 05/27/2023 (Approximate), Expi res: 05/13/2024 Start: 05-27-2023 End: 05-13-2024 Iron and Iron binding capacity panel - Serum or Plasma Iron Lab Routine Gastroesophageal reflux disease without esophagitis Prediabetes Morbid obesity with BMI of 40.0-44.9, adult (HCC) Vitamin D deficiency Expected: 05/27/2023 (Approximate), Expires: 05/13/2024 [facility] Comment on above: Expected: 05/27/2023 (Approximate), Expi res: 05/13/2024 Start: 05-27-2023 End: 05-13-2024 Lipid 1996 panel - Serum or Plasma Lipid panel Lab Routine Gastroesophageal reflux disease without esophagitis Prediabetes Morbid obesity with BMI of 40.0-44.9, adult (HCC) Vitamin D deficiency Expected: 05/27/2023 (Approximate), Expires: 05/13/2024 [facility] Comment on above: Expected: 05/27/2023 (Approximate), Expi res: 05/13/2024 Start: 05-27-2023 End: 05-13-2024 Magnesium [Mass/volume] in Serum or Plasma Magnesium Lab Routine Gastroesophageal reflux disease without esophagitis Prediabetes Morbid obesity with BMI of 40.0-44.9, adult (HCC) Vitamin D deficiency Expected: 05/27/2023 (Approximate), Expires: 05/13/2024 [facility] Comment on above: Expected: 05/27/2023 (Approximate), Expi res: 05/13/2024 Start: 05-27-2023 End: 05-13-2024 Thyrotropin [Units/volume] in Serum or Plasma TSH Lab Routine Gastroesophageal reflux disease without esophagitis Prediabetes Morbid obesity with BMI of 40.0-44.9, adult (HCC) Vitamin D deficiency Expected: 05/27/2023 (Approximate), Expires: 05/13/2024 [facility] Comment on above: Expected: 05/27/2023 (Approximate), Expi res: 05/13/2024 Start: 05-27-2023 End: 05-13-2024 US Abdomen US abdomen complete Imaging Routine Gastroesophageal reflux disease without esophagitis Prediabetes Morbid obesity with BMI of 40.0-44.9, adult (HCC) Vitamin D deficiency Expected: 05/27/2023 (Approximate), Expires: 05/13/2024 [facility] Comment on above: Expected: 05/27/2023 (Approximate), Expi res: 05/13/2024 Start: 05-27-2023 End: 05-13-2024 Vitamin B1, whole blood Vitamin B1, whole blood Lab Routine Gastroesophageal reflux disease without esophagitis Prediabetes Morbid obesity with BMI of 40.0-44.9, adult (HCC) Vitamin D deficiency Expected: 05/27/2023 (Approximate), Expires: 05/13/2024 [facility] Comment on above: Expected: 05/27/2023 (Approximate), Expi res: 05/13/2024 Start: 05-27-2023 End: 05-13-2024 XR Abdomen and RF Gastrointestinal tract upper W contrast PO FL upper GI w KUB Imaging Routine Gastroesophageal reflux disease without esophagitis Prediabetes Morbid obesity with BMI of 40.0-44.9, adult (HCC) Vitamin D deficiency Expected: 05/27/2023 (Approximate), Expires: 05/13/2024 [facility] Comment on above: Expected: 05/27/2023 (Approximate), Expi res: 05/13/2024 Start: 05-27-2023 End: 05-13-2024 Zinc Zinc Lab Routine Gastroesophageal reflux disease without esophagitis Prediabetes Morbid obesity with BMI of 40.0-44.9, adult (HCC) Vitamin D deficiency Expected: 05/27/2023 (Approximate), Expires: 05/13/2024 [facility] Comment on above: Expected: 05/27/2023 (Approximate), Expi res: 05/13/2024 Start: 05-27-2023 End: 05-27-2023 Patient encounter procedure 05/27/2023 Office Visit Weight Management Miguelangel Green MD [address] [facility] [address] [place] [address] [facility] [place] Start: 05-20-2023 End: 05-20-2023 Clinical Support 05/20/2023 Clinical Support [facility] Ciaran Fritz MD [address] [place] [address] [place] [address] [facility] [place] Start: 04-08-2023 End: 04-08-2023 Patient encounter procedure 04/08/2023 Office Visit Psychiatry Belgica Strange MD [address] [place] [address] [facility] Start: 01-09-2023 End: 01-09-2023 Patient encounter procedure 01/09/2023 Office Visit Psychiatry Belgica Strange MD [address] [place] [address] [facility] Start: 12-18-2022 Depression Remission Assessment (PHQ9) Depression Remission Assessment (PHQ9) [facility] Start: 12-02-2022 DEPRESSION ASSESSMENT DEPRESSION ASSESSMENT [facility] Start: 11-28-2022 End: 11-28-2022 Telemedicine consultation with patient 11/28/2022 Telemedicine Psychiatry Belgica Strange MD [address] [place] [address] [facility] Start: 10-31-2022 End: 10-31-2022 Patient encounter procedure 10/31/2022 Office Visit Psychiatry Belgica Strange MD [address] [facility] [address] [place] [address] [facility] Start: 10-10-2022 End: 10-10-2022 Patient encounter procedure 10/10/2022 Office Visit Psychiatry Belgica Strange MD [address] [facility] [address] [place] [address] [facility] Start: 08-15-2022 End: 08-15-2022 Patient encounter procedure 08/15/2022 Office Visit Psychiatry Belgica Strange MD [address] [facility] [address] [place] [address] [facility] Start: 08-02-2022 Influenza vaccination Sequential Influenza Vaccine (#1) [facility] Start: 2022 PAP TESTING PAP TESTING [facility] Start: 2022 Screening for malignant neoplasm of cervix [facility] Start: 06-19-2021 COVID-19 Vaccine (3 - Booster for Moderna series) COVID-19 Vaccine (3 - Booster for Moderna series) [facility] Start: 03-17-2021 COVID-19 Vaccine (3 - Booster for Moderna series) COVID-19 Vaccine (3 - Booster for Moderna series) [facility] Start: 03-17-2021 COVID-19 Vaccine (3 - Moderna series) COVID-19 Vaccine (3 - Moderna series) [facility] Start: 02-09-2020 Pneumococcal vaccination Pneumococcal Vaccine (1 of 2 - PCV) [facility] Start: 02-09-2020 Pneumococcal Vaccine: Pediatrics (0 to 5 Years) and At-Risk Patients (6 to 49 Years) (1 of 2 - PCV) Pneumococcal Vaccine: Pediatrics (0 to 5 Years) and At-Risk Patients (6 to 49 Years) (1 of 2 - PCV) [facility] Start: 02-09-2020 Urine screening for protein Diabetes: Urine Protein Screening [facility] Start: 05-13-2019 ANNUAL PCP TEAM CHRONIC DISEASE VISIT ANNUAL PCP TEAM CHRONIC DISEASE VISIT [facility] Start: 2019 ANNUAL PCP TEAM CHRONIC DISEASE VISIT ANNUAL PCP TEAM CHRONIC DISEASE VISIT [facility] Start: 2019 Anxiety Screening Anxiety Screening [facility] Start: 2019 CHLAMYDIA SCREENING (18-24) CHLAMYDIA SCREENING (18-24) [facility] Start: 2019 Depression Screening Depression Screening [facility] Start: 2019 Diabetes: Urine Albumin-Creatinine Ratio for Kidney Health Diabetes: Urine Albumin-Creatinine Ratio for Kidney Health [facility] Start: 2019 GC (GONORRHEA) SCREENING (18-24) GC (GONORRHEA) SCREENING (18-24) [facility] Start: 2019 Hepatitis C screening Hepatitis C Screening [facility] Start: 2019 HEPATITIS C SCREENING HEPATITIS C SCREENING [facility] Start: 2019 HIV SCREENING HIV SCREENING [facility] Start: 2019 HIV screening HIV Screening [facility] Start: 2019 Screening for Chlamydia trachomatis Chlamydia Screening (18-24) [facility] Start: 2017 Meningococcal B Vaccine: Consider Based On Risk (1 of 2 - Patient Seeks Protection) Meningococcal B Vaccine: Consider Based On Risk (1 of 2 - Patient Seeks Protection) [facility] Start: 2017 MENINGOCOCCAL B: Consider based on risk (1 of 2 - Patient Seeks Protection) MENINGOCOCCAL B: Consider based on risk (1 of 2 - Patient Seeks Protection) [facility] Start: 02-09-2016 HIV screening HIV Screening [facility] Start: 2015 PEDS TO ADULT TRANSITION ANNUAL ASSESSMENT PEDS TO ADULT TRANSITION ANNUAL ASSESSMENT [facility] Start: 01-22-2015 Vaccination for human papillomavirus HPV Vaccines (2 - 2-dose series) [facility] Start: 2013 Depression Monitoring Depression Monitoring [facility] Start: 2013 Depression Screening Depression Screening [facility] Start: 2013 PEDS TO ADULT TRANSITION INITIAL DISCUSSION PEDS TO ADULT TRANSITION INITIAL DISCUSSION [facility] Start: 02-09-2012 Vaccination for human papillomavirus HPV Vaccines (1 - 2-dose series) [facility] Start: 2011 Diabetic foot examination [facility] Start: 2011 Glaucoma screening [facility] Start: 2011 MENINGOCOCCAL B: Consider based on risk (1 of 2 - Risk Bexsero 2-dose series) MENINGOCOCCAL B: Consider based on risk (1 of 2 - Risk Bexsero 2-dose series) [facility] Start: 2011 Microalbumin measurement, urine, quantitative Urine Microalbumin [facility] Start: 2011 Ophthalmic examination and evaluation Ophthalmology Exam [facility] Start: 2011 Preventive dental service Diabetes: Dental Exam [facility] Start: 2011 Urine screening for protein Urine Microalbumin [facility] Start: 11-15-2009 Varicella vaccination Varicella Vaccines (2 of 2 - 2-dose childhood series) [facility] Start: 2007 PNEUMOCOCCAL (1 - PCV) PNEUMOCOCCAL (1 - PCV) [facility] Start: 2007 Pneumococcal vaccination Pneumococcal Vaccine (1 of 2 - PCV) [facility] Start: 2007 Pneumococcal Vaccine: Ped or At-Risk (1 - PCV) Pneumococcal Vaccine: Ped or At-Risk (1 - PCV) [facility] Start: 2007 Pneumococcal Vaccine: Pediatrics (0 to 5 Years) and At-Risk Patients (6 to 64 Years) (1 of 2 - PCV) Pneumococcal Vaccine: Pediatrics (0 to 5 Years) and At-Risk Patients (6 to 64 Years) (1 of 2 - PCV) [facility] Start: 02-09-2004 History and physical examination, annual for health maintenance Wellness Visit [facility] Start: 2001 Hemoglobin A1c measurement [facility] Start: 2001 HIV screening HIV Screening [facility] Start: 2001 Lipid panel Lipid Panel [facility] Start: 2001 Screening for Chlamydia trachomatis [facility] Start: 2001 Screening for malignant neoplasm of cervix Pap Smear [facility] Start: 2001 Thyroid stimulating hormone measurement TSH Level [facility] End: 12-20-2022 12 lead ECG Electrocardiogram, 12-lead ECG Routine Once for 1 Occurrences starting 12/20/2022 until 12/20/2022 [facility] Work Phone: Comment on above: Once for 1 Occurrences starting 12/20/19 until 12/20/2022 End: 09-17-2023 12 lead ECG Electrocardiogram, 12-lead ECG Routine Once for 1 Occurrences starting 09/17/2023 until 09/17/2023 [facility] Work Phone: Comment on above: Once for 1 Occurrences starting 09/17/20 until 09/17/2023 End: 09-02-2025 ADULT [place] ANORECTAL MANOMETRY ADULT [place] ANORECTAL MANOMETRY Endoscopy Routine Irritable bowel syndrome with constipation 1 Occurrences starting 09/02/2024 until 09/02/2025 [facility] Work Phone: Comment on above: 1 Occurrences starting 09/02/2024 until 09/02/2025 Breath hydrogen/meth ane test BREATH TEST - LACTULOSE Procedures Routine Irritable bowel syndrome with constipation 1 Occurrences starting 09/02/2024 [facility] Comment on above: 1 Occurrences starting 09/02/2024 Calprotectin [Mass/m ass] in Stool CALPROTECTIN,FECAL Lab Routine Irritable bowel syndrome with constipation 09/07/2024 10:26 AM EDT [facility] End: 08-20-2023 Cardiac holter monitor (24 hours) [facility] Work Phone: Comment on above: Once for 1 Occurrences starting 08/20/20 until 08/20/2023 End: 02-23-2024 [place] [Moles/volume] in Serum or Plasma [place] Level Lab Routine Bipolar 1 disorder, mixed, moderate (HCC) 1 Occurrences starting 02/22/2023 until 02/23/2024 [facility] Work Phone: Comment on above: 1 Occurrences starting 02/22/2023 until 02/23/2024 End: 07-22-2024 [place] [Moles/volume] in Serum or Plasma [place] Level Lab Routine Schizoaffective disorder, bipolar type with good prognostic features (HCC) 1 Occurrences starting 07/22/2023 until 07/22/2024 [facility] Work Phone: Comment on above: 1 Occurrences starting 07/22/2023 until 07/22/2024 [place] [Moles/volum e] in Serum or Plasma [place] Level Lab Routine Schizoaffective disorder, bipolar type with good prognostic features (HCC) 07/22/2023 1:04 PM EDT [facility] Tissue exam [facility] Work Phone: Comment on above: Release Upon Ordering for 1 Occurrences starting 08/19/2023 End: 08-18-2024 XR KNEE GENERAL 4V AP BOTH/PA BOTH/LAT/MERC LEFT XR KNEE GENERAL 4V AP BOTH/PA BOTH/LAT/MERC LEFT Radiology STAT Acute pain of left knee 1 Occurrences starting 07/20/2023 until 08/18/2024 [facility] Work Phone: Comment on above: 1 Occurrences starting 07/20/2023 until 08/18/2024 Immunizations Immunization Date Immunization Notes Care Provider [facility] 09-01-2024 influenza virus vacc ine, unspecified formulation Bernie Fang PA Work Phone: [facility] 12-21-2022 influenza, injectabl e, quadrivalent, preservative free Mohit Blakely MD Work Phone: [facility] 12-21-2022 influenza virus vacc ine, unspecified formulation Romina Lynch RD Work Phone: [facility] 11-23-2021 tetanus toxoid, redu aminta diphtheria toxoid, and acellular pertussis vaccine, adsorbed; Translations: [Boostrix (Tdap)] RICHARD VARGAS APRN-CN [facility] 08-15-2021 influenza virus vacc ine, unspecified formulation RICHARD VARGAS APRN-CN [facility] 01-20-2021 SARS-CoV-2 (COVID-19 ) mRNA-[id number] vaccine RICHARD VARGAS APRN-CNM [facility] Comment on above: Result Comment: 2020: [id number] 12-23-2020 SARS-CoV-2 (COVID-19 ) mRNA-[id number] vaccine RICHARD VARGAS [facility] Comment on above: Result Comment: 2020: [id number] 09-29-2018 influenza virus vacc ine, unspecified formulation RICHARD VARGAS FREELANCE WRITER-CN [facility] 09-29-2018 influenza, injectabl e, quadrivalent, contains preservative Krislyn Aberegg PA Work Phone: [facility] Work Phone: 05-13-2018 meningococcal polysaccharide (groups A, C, Y and W-135) diphtheria toxoid conjugate vaccine (MCV4P) RICHARD VARGAS [facility] 08-13-2017 influenza virus vacc ine, unspecified formulation RICHARD VARGAS FREELANCE WRITER-CN [facility] 08-13-2017 influenza, injectabl e, quadrivalent, contains preservative Krislyn Aberegg PA Work Phone: [facility] 10-05-2016 influenza virus vacc ine, unspecified formulation RICHARD VARGAS FREELANCE WRITER-CN [facility] 10-19-2015 influenza virus vacc ine, unspecified formulation RICHARD VARGAS FREELANCE WRITER-CN [facility] 10-19-2015 influenza, injectabl e, quadrivalent, contains preservative Krislyn Aberegg PA Work Phone: [facility] Work Phone: 09-24-2015 influenza virus vacc ine, unspecified formulation RICHARD VARGAS [facility] 07-22-2014 human papilloma viru s vaccine, quadrivalent Krislyn Aberegg PA Work Phone: [facility] 07-22-2014 Human Papillomavirus Quadval RICHARD [facility] 07-22-2014 HPV, unspecified formulation Belgica Strange MD Work Phone: [facility] 10-02-2013 human papilloma viru s vaccine, quadrivalent Krislyn Aberegg PA Work Phone: [facility] Work Phone: 10-02-2013 influenza virus vacc ine, unspecified formulation Krislyn Aberegg PA Work Phone: [facility] Work Phone: 06-17-2013 human papilloma viru s vaccine, quadrivalent Krislyn Aberegg PA Work Phone: [facility] 06-17-2013 Human Papillomavirus Quadval RICHARD [facility] 06-17-2013 meningococcal polysaccharide (groups A, C, Y and W-135) diphtheria toxoid conjugate vaccine (MCV4P) RICHARD VARGAS [facility] 06-17-2013 Meningococcal, MCV4, unspecified conjugate formulation(groups A, C, Y and W-135) Krislyn Aberegg PA Work Phone: [facility] 06-17-2013 tetanus toxoid, redu aminta diphtheria toxoid, and acellular pertussis vaccine, adsorbed RICHARD REBECA FREELANCE WRITER-CNM [facility] 12-17-2011 varicella virus vaccine Kt LEES Work Phone: [facility] Work Phone: 10-22-2011 influenza virus vacc ine, unspecified formulation Bernie LEES Work Phone: [facility] Work Phone: 09-26-2010 influenza virus vacc ine, unspecified formulation RICHARD VARGAS [employer]ELANCE WRITER-CNM [facility] 10-18-2009 novel influenza-H1N1 -09, all formulations Bernie LEES Work Phone: [facility] Work Phone: 08-25-2009 influenza virus vacc ine, live, attenuated, for intranasal use Bernie LEES Work Phone: [facility] 08-25-2009 influenza virus vacc ine, unspecified formulation RICHARD VARGAS [employer]ELANCE WRITER-CNM [facility] 10-07-2008 influenza virus vacc ine, unspecified formulation RICHARD REBECA [employer]EL[employer] WRITER-CNM [facility] 09-25-2007 influenza virus vacc ine, unspecified formulation RICHARD REBECA [employer]ELANCE WRITER-CNM [facility] 10-05-2006 influenza virus vacc ine, unspecified formulation RICHARD REBECA [employer]ELANCE WRITER-CNM [facility] 09-27-2005 influenza virus vacc ine, unspecified formulation RICHARD VARGAS F[employer]ELANCE WRITER-CNM [facility] 06-08-2005 diphtheria, tetanus toxoids and acellular pertussis vaccine Krislyn Aberegg PA Work Phone: [facility] Work Phone: 06-08-2005 measles, mumps and rubella virus vaccine Krislyn Aberegg PA Work Phone: [facility] Work Phone: 06-08-2005 measles/mumps/rubell a virus vaccine RICHARD VARGAS FREELANCE WRITER-CNM [facility] 06-08-2005 poliovirus vaccine, inactivated Krislyn Aberegg PA Work Phone: [facility] Work Phone: 09-29-2004 influenza virus vacc ine, unspecified formulation Krislyn Aberegg PA Work Phone: [facility] Work Phone: 04-16-2004 pneumococcal conjuga te vaccine, 7 valent Krislyn Aberegg PA Work Phone: [facility] Work Phone: 12-03-2003 influenza virus vacc ine, unspecified formulation Krislyn Aberegg PA Work Phone: [facility] Work Phone: 11-01-2003 influenza virus vacc ine, unspecified formulation Krislyn Aberegg PA Work Phone: [facility] Work Phone: 10-15-2002 pneumococcal conjuga te vaccine, 7 valent Krislyn Aberegg PA Work Phone: [facility] Work Phone: 05-15-2002 diphtheria, tetanus toxoids and acellular pertussis vaccine Bernie Fang PA Work Phone: [facility] Work Phone: 05-15-2002 hepatitis B pediatri c vaccine RICHARD VARGAS [facility] 05-15-2002 hepatitis B vaccine, pediatric or pediatric/adolescent dosage Bernie Fang PA Work Phone: [facility] Work Phone: 05-08-2002 hepatitis B pediatri c vaccine RICHARD VARGAS [facility] 02-09-2002 haemophilus influenz ae type b vaccine, HbOC conjugate Bernie Fang PA Work Phone: [facility] Work Phone: 02-09-2002 measles, mumps and rubella virus vaccine Bernie Fang PA Work Phone: [facility] Work Phone: 02-09-2002 measles/mumps/rubell a virus vaccine RICHARD VARGAS [facility] 02-09-2002 varicella virus vaccine JAYLEEN VARGAS [facility] 2001 diphtheria, tetanus toxoids and acellular pertussis vaccine Bernie Fang PA Work Phone: [facility] Work Phone: 2001 haemophilus influenz ae type b vaccine, HbOC conjugate Bernie Fang PA Work Phone: [facility] Work Phone: 2001 pneumococcal conjuga te vaccine, 7 valent Bernie Aberebrianna PA Work Phone: [facility] Work Phone: 2001 poliovirus vaccine, inactivated Krislyn Aberegg PA Work Phone: [facility] Work Phone: 2001 diphtheria, tetanus toxoids and acellular pertussis vaccine Krislyn Aberegg PA Work Phone: [facility] Work Phone: 2001 haemophilus influenz ae type b vaccine, HbOC conjugate Krislyn Aberegg PA Work Phone: [facility] Work Phone: 2001 pneumococcal conjuga te vaccine, 7 valent Krislyn Aberegg PA Work Phone: [facility] Work Phone: 2001 poliovirus vaccine, inactivated Krislyn Aberegg PA Work Phone: [facility] Work Phone: 2001 diphtheria, tetanus toxoids and acellular pertussis vaccine Krislyn Aberegg PA Work Phone: [facility] Work Phone: 2001 haemophilus influenz ae type b vaccine, HbOC conjugate Krislyn Aberegg PA Work Phone: [facility] Work Phone: 2001 poliovirus vaccine, inactivated Krislyn Aberegg PA Work Phone: [facility] Work Phone: 2001 hepatitis B pediatri c vaccine RICHARD OCAMPO [facility] 2001 hepatitis B vaccine, pediatric or pediatric/adolescent dosage Krislyn Aberegg PA Work Phone: [facility] Work Phone: 2001 hepatitis B pediatri c vaccine RICHARD VARGAS FREELANCE WRITER-CNM [facility] 2001 hepatitis B vaccine, pediatric or pediatric/adolescent dosage Bernie LEES Work Phone: [facility] Work Phone: Payers Date Payer Category Payer Private Health Insurance [id number] 2024 Self-pay 2023 Medicaid HMO [facility] MEDICAID ODM [id number] 2021 Medicaid [id number] 2021 Medicaid [id number] 2020 Unknown [id number] 2020 Medicaid [id number] 2018 Unknown [id number] 2018 Unknown 2001 Unknown [id number] 2.16.840.1.048342.3.579.2. 594 2001 Unknown [id number] 2.16.840.1.285275.3.579.2. 903 2001 Unknown [id number] 2.16.840.1.837487.3.579.2. 903 2001 Unknown [id number] 2.16.840.1.065099.3.579.2. 903 2001 Unknown [id number] 2.16.840.1.883102.3.579.2. 903 2001 Unknown [id number] 2.16.840.1.725042.3.579.2. 903 2001 Unknown [id number] 2.16.840.1.325261.3.579.2. 903 2001 Unknown [id number] 2.16.840.1.753352.3.579.2. 903 2001 Unknown [id number] 2.16.840.1.052572.3.579.2. 903 2001 Unknown [id number] 2.16.840.1.992672.3.579.2. 903 2001 Unknown [id number] 2.16.840.1.642902.3.579.2. 903 2001 Unknown [id number] 2.16.840.1.577171.3.579.2. 903 2001 Unknown [id number] 2.16.840.1.754388.3.579.2. 903 2001 Unknown [id number] 2.16.840.1.480559.3.579.2. 903 2001 Unknown [id number] 2.16.840.1.190315.3.579.2. 627 2001 Unknown [id number] 2.16.840.1.983632.3.579.2. 627 2001 Unknown [id number] 2.16.840.1.039502.3.579.2. 627 2001 Unknown [id number] 2.16.840.1.125064.3.579.2. 627 2001 Unknown [id number] 2.16.840.1.958706.3.579.2. 62 2001 Unknown [id number] 2.840.1.157586.3.579.2. 627 2001 Unknown [id number] 2.840.1.273641.3.579.2. 627 2001 Unknown [id number] 2.840.1.579980.3.579.2. 627 2001 Unknown [id number] 2.840.1.506522.3.579.2. 627 2001 Unknown [id number] 2.840.1.833039.3.579.2. 627 Medicaid [id number] Unknown [id number] .840.1.634403.3.579.2. 462 Unknown [id number] 2.840.1.448106.3.579.2. 462 Unknown [id number] 2840.1.963379.3.579.2. 462 Unknown [id number] 2.840.1.918608.3.579.2. 462 Unknown [id number] 2.840.1.242119.3.579.2. 462 Unknown [id number] 840.1.018553.3.579.2. 462 Unknown [id number] 840.1.241706.3.579.2. 462 Unknown [id number] .840.1.820795.3.579.2. 462 Unknown [id number] .840.1.939313.3.579.2. 462 Unknown [id number] 2.840.1.054480.3.579.2. 462 Unknown [id number] 2.840.1.089643.3.579.2. 462 Unknown [id number] 2.840.1.083754.3.579.2. 462 Unknown [id number] 2.840.1.679099.3.579.2. 462 Unknown [id number] 2.16.840.1.900268.3.579.2. 462 Unknown [id number] 2.16.840.1.462115.3.579.2. 462 Unknown [id number] 2.16.840.1.250284.3.579.2. 462 Unknown [id number] 2.16.840.1.945225.3.579.2. 462 Unknown [id number] 2.16.840.1.207235.3.579.2. 462 Unknown [id number] 2.16.840.1.547161.3.579.2. 462 Unknown [id number] 2.16.840.1.432225.3.579.2. 462 Unknown [id number] 2.16.840.1.648393.3.579.2. 462 Unknown [id number] 2.16.840.1.994918.3.579.2. 462 Social History Date Type Detail Facility Start: 08-07-2019 End: 05-01-2023 Never smoked tobacco (finding) [facility] Comment on above: no tobacco smoke exp osure Start: 2000 Sex Assigned At Female [facility] Start: 02-15-2022 End: 05-01-2023 Tobacco use and exposure Smokeless tobacco non-user [facility] Start: 02-23-2022 End: 09-18-2023 Alcohol intake Lifetime non-drinker (finding) [facility] Start: 2000 Sex Assigned At Not on file [facility] Start: 06-04-2022 End: 08-19-2023 Exposure to SARS-CoV-2 (event) Not sure [facility] Start: 11-18-2022 End: 11-28-2022 Exposure to SARS-CoV-2 (event) Unable to assess [facility] History of tobacco use Passive smoker [facility] Start: 03-05-2023 End: 06-11-2024 Alcohol intake Current non-drinker of alcohol (finding) [facility] Start: 03-05-2023 Tobacco Comment brother smokes outsi de [facility] Start: 01-09-2023 End: 12-04-2023 History of Social function [facility] Start: 01-09-2023 End: 12-04-2023 Tobacco use panel [facility] Start: 11-02-2012 End: 10-05-2025 Adult Depression Screening Assessment 8 [facility] Start: 04-22-2018 Gender identity Identifies as female gender (finding) [facility] Start: 02-15-2022 Sexual orientation Heterosexual (fin ding) [facility] Start: 05-01-2023 End: 08-29-2023 Alcohol intake Current drinker of alcohol (finding) [facility] Within the last year , have you been afraid of your partner or ex-partner? No [facility] Start: 12-04-2023 Alcohol intake Ex-drinker (finding) [facility] Start: 02-04-2020 End: 04-17-2023 Sex Female (finding) [facility] Sexual Orientation [facility] Sexual Sexually active: Yes. [facility] Medical Equipment Procedure Code Equipment Code [...] st Strips Start: 11-01-2021 Lancets Start: 11-01-2021 [id number], [id number] Start: 12-23-2014 End: 03-20-2025 Comment on above: Check BG atleast 2 t imes daily and also when does not feel well. Check BG 3-4 times d aily Functional Status Date Assessment Result Facility 10-05-2025 Functional Status Supervision [facility] 10-04-2025 Functional Status Soco [facility] 10-04-2025 [facility] 08-24-2024 Functional Status Independent Soco [facility] 06-23-2024 Functional Status Independent [facility] 06-23-2024 Functional Status ID band on, Allergy Band on, Call device within reach, Bed in low position, Wheels locked, Upper/Half-Length side-rails up, Visitor at bedside, Safety level maintained [facility] 05-09-2024 Functional Status ID band on, Allergy Band on, Call device within reach, Bed in low position, Wheels locked, personal items within reach, Bedside Cart Locked, Visitor at bedside [facility] 05-08-2024 Functional Status Independent [facility] 04-17-2024 Functional Status Independent [facility] 04-16-2024 Functional Status Awake, Lights dimmed, Resting [facility] 03-07-2024 Functional Status Independent [facility] 11-13-2023 Functional Status Independent [facility] 11-13-2023 Functional Status ID band on, Allergy Band on, Call device within reach, Bed in low position, Wheels locked, Upper/Half-Length side-rails up, Safety level maintained [facility] 05-31-2023 Functional Status Standard Safet y ID band on, Allergy Band on, Call device within reach, Bed in low position, Wheels locked, Upper/Half-Length side-rails up, personal items within reach [facility] 05-09-2015 Are you deaf, or do you have serious difficulty hearing No 05/09/2015 12:04 PM Lissy Alfaro Ma [facility] 05-09-2015 Are you blind, or do you have serious difficulty seeing, even when wearing glasses No 05/09/2015 12:04 PM Lissy Alfaro Ma [facility] 05-09-2015 Do you have serious difficulty walking or climbing stairs No 05/09/2015 12:04 PM EDT Mae Ma Lissy No [facility] 05-09-2015 Do you have difficul ty dressing or bathing No 05/09/2015 12:04 PM EDT Lissy Wall Ma No [facility] Mental Status Date Assessment Result Facility 10-05-2025 Mental Status Orientation Oriented x 4 [facility] 10-04-2025 Mental Status [facility] 08-24-2024 Mental Status Orientation Oriented x 4 [facility] 08-24-2024 Mental Status [facility] 06-23-2024 Mental Status Orientation Oriented x 4 [facility] 06-23-2024 Mental Status [facility] 05-09-2024 Mental Status Oriented x 4 [facility] 05-08-2024 Mental Status Orientation Oriented x 4 [facility] 04-17-2024 Mental Status Orientation Oriented x 4 [facility] 04-16-2024 Mental Status [facility] 03-07-2024 Mental Status Orientation Oriented x 4 [facility] 11-13-2023 Mental Status Orientation Oriented x 4 [facility] 11-13-2023 Mental Status [facility] 05-31-2023 Mental Status Orientation Oriented x 4 [facility] 05-09-2015 Because of a physica l, mental, or emotional condition, do you have serious difficulty concentrating, remembering, or making decisions No 05/09/2015 12:04 PM EDT Lissy Wall Ma No [facility] Clinical Notes 12-19-2014 to 10-08-2025 Krystal Fisher RN - 10/08/2025 11:44 PM Giovanni Fisher RN - 10/08/2025 11:44 PM Giovanni Fisher RN - 10/08/2025 10:53 PM Maryana Wiggins - 10/08/2025 9:53 PM EST Note Date & Type Note Facility 10-08-2025 Emergency department Note Report called to Jaquelin GARCES at [facility]. [facility] 10-08-2025 Emergency department Note Report called to Jaquelin GARCES at [facility]. Patient becoming agitated; standing at door of room requesting to speak with physician. States that she does not need to be pink slipped, and that she is feeling better. States she has a safety plan in place. Patient became excessively more agitated after provider came to bedside to speak with her and began yelling and repeatedly hitting the 'nurse assistance' button. Provider notified and placed orders for IM haldol and versed. Protective services at bedside for medication administration, but were not needed. Patient was agreeable to being medicated. Dr De La Paz from [facility] accepted the patient @ 2150, RN report to [phone] OPT 3 In Round Trip - [facility] accepted Chart faxed to [facility] Took pt call light away due to her constantly pushing her call light. Pt keeps turning ergonomist light for no reason, Pt complaining of anxiety and chest pain. EMERGENCY DEPARTMENT ENCOUNTER Pt Name: Martita Ricketts Birthdate 2000 Date of evaluation: 10/08/2025 ED Provider: Yaron Alvarado MD CHIEF COMPLAINT Chief Complaint Patient presents with Mental Health Problem HISTORY OF PRESENT ILLNESS (Location/Symptom, Timing/Onset, Context/Setting, Quality, Duration, Modifying Factors, Severity) Note limiting factors. I wore appropriate PPE for the entirety of this encounter. HPI Martita Ricketts is a 25 y.o. who presents to the emergency department for mental health evaluation. Patient has history of bipolar disorder, schizophrenia. She is brought in by her due to his significant concerns about her safety at home. He states she has been extremely manic, hyperactive, has not slept. Has been rambling, nonsensical speech. Patient states that none of this is true and that if she is crazy it is only because she loves [place]. She states that if she has to go to [place] socks feel all she wants is purple socks. 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 Nursing Notes were reviewed. Limitations to history: None Outside historians: None REVIEW OF SYSTEMS Review of Systems Pertinent positives and negatives as per HPI PAST MEDICAL HISTORY Medical History[1] SURGICAL HISTORY Surgical History[2] CURRENT MEDICATIONS Previous Medications ALBUTEROL 108 (90 BASE) MCG/ACT INHALER Inhale 2 puffs every 6 hours as needed for wheezing. CETIRIZINE (ZYRTEC) 10 MG TABLET LITHIUM 600 MG CAPSULE Take 600 mg by mouth 2 times daily. 600 mg in the morning and 600 mg in the evening LURASIDONE (LATUDA) 60 MG TABLET Take 80 mg by mouth. MULTIPLE VITAMINS-IRON (MULTIVITAMIN/IRON PO) Take 1 tablet by mouth daily. PROPRANOLOL (INDERAL) 20 MG TABLET 20 mg in the morning and 20 mg in the evening. TOPIRAMATE 50 MG TABLET Take 50 mg by mouth 1 (one) time each day. VITAMIN D PO Take 5,000 Int'l Units by mouth every 7 days. ALLERGIES Penicillin g, Victoza [liraglutide], and Pcn [penicillins] FAMILY HISTORY Family History[3] SOCIAL HISTORY Social History[4] PHYSICAL EXAM ED Triage Vitals [10/08/25 1750] Temp Heart Rate Resp BP 36.7 C (98 F) (!) 103 18 (!) 171/123 SpO2 Temp Source Heart Rate Source Patient Position 100 % Temporal Monitor -- BP Location FiO2 (%) -- -- Physical Exam Constitutional: Appearance: Normal appearance. Cardiovascular: Rate and Rhythm: Normal rate and regular rhythm. Pulses: Normal pulses. Heart sounds: Normal heart sounds. Pulmonary: Effort: Pulmonary effort is normal. Breath sounds: Normal breath sounds. Abdominal: General: Abdomen is flat. Palpations: Abdomen is soft. Tenderness: There is no abdominal tenderness. There is no guarding or rebound. Skin: General: Skin is warm and dry. Capillary Refill: Capillary refill takes less than 2 seconds. Neurological: General: No focal deficit present. Mental Status: She is alert. Psychiatric: Comments: Hyperactive, rambling speech, pressured speech, slightly agitated DIAGNOSTIC RESULTS RADIOLOGY (Per Emergency Physician): Interpretation per the Radiologist below, if available at the time of this note: XR chest 1 view Final Result 1. No acute pulmonary disease. Report Dictated on Electronically Signed By: Lisa Hernandez MD Electronically Signed Date/Time: 10/08/2025 8:03 PM EST LABS: Labs Reviewed CBC WITH AUTO DIFFERENTIAL - Abnormal Result Value Auto WBC 9.5 RBC 4.55 Hemoglobin 12.9 Hematocrit 38.9 MCV 85.5 MCH 28.4 MCHC 33.2 RDW 13.0 Platelets 460 (*) MPV 9.5 nRBC 0.0 Neutrophils Relative 74.0 Lymphocytes Relative 20.0 Monocytes Relative 4.8 (*) Eosinophils Relative 0.4 Basophils Relative 0.5 Immature Grans % 0.3 Neutrophils Absolute 7.0 Lymphocytes Absolute 1.9 Monocytes Absolute 0.5 Eosinophils Absolute 0.0 Basophils Absolute 0.1 Immature Grans Absolute 0.0 COMPREHENSIVE METABOLIC PANEL - Abnormal SODIUM 138 POTASSIUM 3.5 CHLORIDE 107 CARBON DIOXIDE 18 (*) ANION GAP 13 UREA NITROGEN 11 CREATININE 0.81 GLUCOSE 108 (*) CALCIUM 9.2 AST (SGOT) 19 ALT 26 ALKALINE PHOSPHATASE 73 ALBUMIN 4.7 (*) BILIRUBIN, TOTAL 0.5 TOTAL PROTEIN 7.8 eGFR >90.0 ACETAMINOPHEN LEVEL - Abnormal ACETAMINOPHEN <5.0 (*) Narrative: Acetaminophen concentrations greater than 150 ug/mL at 4 hours after ingestion and greater than 40 ug/mL at 12 hours after ingestion are often associated with toxicity. SALICYLATE - Abnormal SALICYLATES <5.0 (*) COMPLETE URINALYSIS WITH REFLEX TO CULTURE - Abnormal Color, Urine Yellow Clarity, Urine Clear pH, Urine 6.0 Leukocytes, Urine Negative Nitrite, Urine Negative Protein, Urine 30 (*) Glucose, Urine Normal Bilirubin, Urine Negative Ketones, Urine 10 (*) Urobilinogen, Urine 2 (*) Blood, Urine 0.03 (*) RBC, Urine 3-5 (*) WBC, Urine 0-2 Squamous Epithelial, Urine 6-10 (*) Bacteria, Urine Negative Mucus, Urine Moderate (*) SPECIFIC GRAVITY OF URINE (NUMERIC) 1.041 (*) Narrative: A specimen with <=10 WBC is not consistent with inflammation. This specimen will not reflex to a urine culture. SARS-COV-2 ANTIGEN - Normal SARS-CoV-2 Antigen Negative ETHANOL - Normal ETHANOL IN SER/PLAS <10 Narrative: RN COMPLEX CARE depression is seen >100 mg/dL. NOTE: This result is for medical treatment only. Analysis performed using non-forensic procedures. HIGH SENSITIVITY TROPONIN, SERIAL BASELINE - Normal Troponin HS Serial Baseline 3 DRUGS OF ABUSE AMPHETAMINE SCREEN Negative BARBITURATES SCREEN Negative BENZODIAZEPINE SCREEN Negative COCAINE METAB. SCREEN Negative METHADONE SCREEN Negative OPIATES SCREEN Negative OXYCODONE SCREEN Negative PHENCYCLIDINE SCREEN Negative FENTANYL SCREEN, UR QUAL Negative Narrative: The expected value for all of the drugs listed above is Negative. The following drugs or drug groups have been screened for by Immunoassay at the following thresholds: Amphetamine class (1000 ng/mL) Barbiturates (200 ng/mL) Benzodiazepines (200 ng/mL) Cocaine (300 ng/mL) Methadone (300 ng/mL) Opiates (300 ng/mL) Oxycodone (100 ng/mL) PCP (25 ng/mL) Fentanyl (1.0 ng/ml) NOTE: These results are for medical treatment only. Analysis performed using non-forensic procedures. POSITIVE results are NOT confirmed by a more specific alternative method unless requested. If confirmation is needed, request confirmation under separate order. HCG QUALITATIVE URINE HCG,URINE QUAL Negative Narrative: is the most common reason for HCG in urine, although choriocarcinoma, hydatidiform mole, and certain nontrophoblastic malignancies also result in detectable urinary HCG levels. Sensitivity = 20mIU/mL. All other labs were within normal range or not returned as of this dictation. EMERGENCY DEPARTMENT COURSE and DIFFERENTIAL DIAGNOSIS/MDM: Vitals: Vitals: 10/08/25 1750 10/08/25 2107 10/08/25 2201 BP: (!) 171/123 (!) 143/105 114/74 Pulse: (!) 103 (!) 107 98 Resp: 18 18 16 Temp: 36.7 C (98 F) 37.1 C (98.7 F) 37.1 C (98.8 F) TempSrc: Temporal Temporal Temporal SpO2: 100% 100% 99% Medications haloperidol lactate (Haldol) injection 5 mg (has no administration in time range) midazolam (Versed) injection 2 mg (has no administration in time range) cloNIDine (Catapres) tablet 0.1 mg (0.1 mg Oral Given 10/08/251924) QUEtiapine (SEROquel) tablet 50 mg (50 mg Oral Given 10/08/251924) lamoTRIgine (LaMICtal) tablet 100 mg (100 mg Oral Given 10/08/251924) SCREENINGS MDM elements: The patient presented with chief complaint of daniella. The differential diagnosis associated with this patient's presentation includes bipolar disorder, manic episode, substance abuse, suicidal ideation, homicidal ideation. Our workup consisted of ordering/reviewing: Vital signs reveal hypertension, mild tachycardia. Patient is hyperactive on exam, pressured speech, this and combined with her story that he does not feel she is safe at home any of significance earns about her safety patient will be pink slipped, medically cleared and transferred to [facility] once medically cleared. Patient is in agreement with this plan. EKG: Sinus rhythm, ventricular rate of 89, left axis deviation, no ST elevations or depressions, no T wave inversions, nonspecific EKG not dramatically changed from previous ED Course as of 10/08/25 2245 SatOct 08, [id number] Patient is now complaining of crushing substernal chest pain and states that she is now from her and that she would like her nightly medications including clonidine, Lamictal, Seroquel. Given this we will add on cardiac workup, give patient medications. [AK] 2021 Patient is medically cleared. Plan for transfer to [facility]. [AK] 2239 I was called to room by nursing staff as patient wanted to speak with me. She stated that she spoke to Reid and that she told him that she needed a second chance. She states she is ANO x 4 and is doing well and is requesting to be discharged home. I informed patient that she is pink slipped and she will not be going home. She requested an officer to report my crimes to. She also requested something for her crushing chest pain which has been going on for several months. Her troponin is 3, her EKG is nonischemic and her chest x-ray is normal. Patient was offered Tylenol and she became very upset and began to yell at me. [AK] 2243 Patient continuously hitting nurse help button in room, becoming increasingly agitated. Will medicate with Haldol and Versed [AK] ED Course User Index [AK] Yaron Alvarado MD Diagnoses as of 10/08/252244 Daniella (HCC) PROCEDURES: Unless otherwise noted below, none Procedures CRITICAL CARE TIME None FINAL IMPRESSION 1. Daniella (HCC) DISPOSITION Transfer To Another Facility 10/08/2025 08:23:20 PM PATIENT REFERRED TO: No follow-up provider specified. DISCHARGE MEDICATIONS: New Prescriptions No medications on file (Comment: Please note this report has been produced using speech recognition software and may contain errors related to that system including errors in grammar, punctuation, and spelling, as well as words and phrases that may be inappropriate. If there are any questions or concerns please feel free to contact the dictating provider for clarification.) Yaron Alvarado MD (electronically signed) Emergency Medicine Provider Yaron Alvarado MD 10/08/252022 Yaron Alvarado MD 10/08/252241 [1] Past Medical History: Diagnosis Date Anesthesia complication Anxiety Asthma ([facility]) Depression BIGGS (dyspnea on exertion) Fatigue GERD (gastroesophageal reflux disease) History of UTI Memory difficulty Morbid obesity, unspecified obesity type ([facility]) Prediabetes Snoring [2] Past Surgical History: Procedure Laterality Date APPENDECTOMY 2008 SECTION, LOW TRANSVERSE Bilateral TYMPANOSTOMY TUBE PLACEMENT UPPER GI ENDOSCOPY,EXAM (HISTORICAL) 08/19/2023 WISDOM TOOTH EXTRACTION 2018 [3] Family History Adopted: Yes [4] Social History Socioeconomic History Marital status: Tobacco Use Smoking status: Never Smokeless tobacco: Never Substance and Sexual Activity Alcohol use: Not Currently Alcohol/week: 1.0 standard drink of alcohol Types: 1 Standard drinks or equivalent per week Drug use: Not Currently Comment: caffeine use: 2 cups of coffee a day Sexual activity: Yes Partners: Male OTOY of [employer] Intimate Partner Violence: Not At Risk (08/19/2023) Humiliation, Afraid, Rape, and Kick questionnaire Fear of Current or Ex-Partner: No Emotionally Abused: No Physically Abused: No Sexually Abused: No Yaron Alvarado MD 10/08/25 2245 documented in this encounter [facility] 10-08-2025 Emergency department Note Patient becoming agitated; standing at door of room requesting to speak with physician. States that she does not need to be pink slipped, and that she is feeling better. States she has a safety plan in place. Patient became excessively more agitated after provider came to bedside to speak with her and began yelling and repeatedly hitting the 'nurse assistance' button. Provider notified and placed orders for IM haldol and versed. Protective services at bedside for medication administration, but were not needed. Patient was agreeable to being medicated. [facility] 10-08-[address] De La Paz from [facility] accepted the patient @ 2150, RN report to [phone] OPT 3 [facility] 10-08-2025 Emergency department Note In Round Trip - [facility] accepted [facility] 10-08-2025 Emergency department Note Chart faxed to Shira Midland, PPES [facility] 10-08-2025 Emergency department Note Took pt call light away due to her constantly pushing her call light. [facility] 10-08-2025 Emergency department Note Pt keeps turning ergonomist light for no reason, [facility] 10-08-2025 Emergency department Note Pt complaining of anxiety and chest pain. [facility] 10-08-2025 Physician Emergency department Note EMERGENCY DEPARTMENT ENCOUNTER Pt Name: Martita Ricketts Birthdate 2000 Date of evaluation: 10/08/2025 ED Provider: Yaron Alvarado MD CHIEF COMPLAINT Chief Complaint Patient presents with Mental Health Problem HISTORY OF PRESENT ILLNESS (Location/Symptom, Timing/Onset, Context/Setting, Quality, Duration, Modifying Factors, Severity) Note limiting factors. I wore appropriate PPE for the entirety of this encounter. HPI Martita Ricketts is a 25 y.o. who presents to the emergency department for mental health evaluation. Patient has history of bipolar disorder, schizophrenia. She is brought in by her due to his significant concerns about her safety at home. He states she has been extremely manic, hyperactive, has not slept. Has been rambling, nonsensical speech. Patient states that none of this is true and that if she is crazy it is only because she loves Reid. She states that if she has to go to [employer] socks feel all she wants is purple socks. 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 Nursing Notes were reviewed. Limitations to history: None Outside historians: None REVIEW OF SYSTEMS Review of Systems Pertinent positives and negatives as per HPI PAST MEDICAL HISTORY Medical History[1] SURGICAL HISTORY Surgical History[2] CURRENT MEDICATIONS Previous Medications ALBUTEROL 108 (90 BASE) MCG/ACT INHALER Inhale 2 puffs every 6 hours as needed for wheezing. CETIRIZINE (ZYRTEC) 10 MG TABLET LITHIUM 600 MG CAPSULE Take 600 mg by mouth 2 times daily. 600 mg in the morning and 600 mg in the evening LURASIDONE (LATUDA) 60 MG TABLET Take 80 mg by mouth. MULTIPLE VITAMINS-IRON (MULTIVITAMIN/IRON PO) Take 1 tablet by mouth daily. PROPRANOLOL (INDERAL) 20 MG TABLET 20 mg in the morning and 20 mg in the evening. TOPIRAMATE 50 MG TABLET Take 50 mg by mouth 1 (one) time each day. VITAMIN D PO Take 5,000 Int'l Units by mouth every 7 days. ALLERGIES Penicillin g, Victoza [liraglutide], and Pcn [penicillins] FAMILY HISTORY Family History[3] SOCIAL HISTORY Social History[4] PHYSICAL EXAM ED Triage Vitals [10/08/25 1750] Temp Heart Rate Resp BP 36.7 C (98 F) (!) 103 18 (!) 171/123 SpO2 Temp Source Heart Rate Source Patient Position 100 % Temporal Monitor -- BP Location FiO2 (%) -- -- Physical Exam Constitutional: Appearance: Normal appearance. Cardiovascular: Rate and Rhythm: Normal rate and regular rhythm. Pulses: Normal pulses. Heart sounds: Normal heart sounds. Pulmonary: Effort: Pulmonary effort is normal. Breath sounds: Normal breath sounds. Abdominal: General: Abdomen is flat. Palpations: Abdomen is soft. Tenderness: There is no abdominal tenderness. There is no guarding or rebound. Skin: General: Skin is warm and dry. Capillary Refill: Capillary refill takes less than 2 seconds. Neurological: General: No focal deficit present. Mental Status: She is alert. Psychiatric: Comments: Hyperactive, rambling speech, pressured speech, slightly agitated DIAGNOSTIC RESULTS RADIOLOGY (Per Emergency Physician): Interpretation per the Radiologist below, if available at the time of this note: XR chest 1 view Final Result 1. No acute pulmonary disease. Report Dictated on Electronically Signed By: Lisa Hernandez MD Electronically Signed Date/Time: 10/08/2025 8:03 PM EST LABS: Labs Reviewed CBC WITH AUTO DIFFERENTIAL - Abnormal Result Value Auto WBC 9.5 RBC 4.55 Hemoglobin 12.9 Hematocrit 38.9 MCV 85.5 MCH 28.4 MCHC 33.2 RDW 13.0 Platelets 460 (*) MPV 9.5 nRBC 0.0 Neutrophils Relative 74.0 Lymphocytes Relative 20.0 Monocytes Relative 4.8 (*) Eosinophils Relative 0.4 Basophils Relative 0.5 Immature Grans % 0.3 Neutrophils Absolute 7.0 Lymphocytes Absolute 1.9 Monocytes Absolute 0.5 Eosinophils Absolute 0.0 Basophils Absolute 0.1 Immature Grans Absolute 0.0 COMPREHENSIVE METABOLIC PANEL - Abnormal SODIUM 138 POTASSIUM 3.5 CHLORIDE 107 CARBON DIOXIDE 18 (*) ANION GAP 13 UREA NITROGEN 11 CREATININE 0.81 GLUCOSE 108 (*) CALCIUM 9.2 AST (SGOT) 19 ALT 26 ALKALINE PHOSPHATASE 73 ALBUMIN 4.7 (*) BILIRUBIN, TOTAL 0.5 TOTAL PROTEIN 7.8 eGFR >90.0 ACETAMINOPHEN LEVEL - Abnormal ACETAMINOPHEN <5.0 (*) Narrative: Acetaminophen concentrations greater than 150 ug/mL at 4 hours after ingestion and greater than 40 ug/mL at 12 hours after ingestion are often associated with toxicity. SALICYLATE - Abnormal SALICYLATES <5.0 (*) COMPLETE URINALYSIS WITH REFLEX TO CULTURE - Abnormal Color, Urine Yellow Clarity, Urine Clear pH, Urine 6.0 Leukocytes, Urine Negative Nitrite, Urine Negative Protein, Urine 30 (*) Glucose, Urine Normal Bilirubin, Urine Negative Ketones, Urine 10 (*) Urobilinogen, Urine 2 (*) Blood, Urine 0.03 (*) RBC, Urine 3-5 (*) WBC, Urine 0-2 Squamous Epithelial, Urine 6-10 (*) Bacteria, Urine Negative Mucus, Urine Moderate (*) SPECIFIC GRAVITY OF URINE (NUMERIC) 1.041 (*) Narrative: A specimen with <=10 WBC is not consistent with inflammation. This specimen will not reflex to a urine culture. SARS-COV-2 ANTIGEN - Normal SARS-CoV-2 Antigen Negative ETHANOL - Normal ETHANOL IN SER/PLAS <10 Narrative: RN COMPLEX CARE depression is seen >100 mg/dL. NOTE: This result is for medical treatment only. Analysis performed using non-forensic procedures. HIGH SENSITIVITY TROPONIN, SERIAL BASELINE - Normal Troponin HS Serial Baseline 3 DRUGS OF ABUSE AMPHETAMINE SCREEN Negative BARBITURATES SCREEN Negative BENZODIAZEPINE SCREEN Negative COCAINE METAB. SCREEN Negative METHADONE SCREEN Negative OPIATES SCREEN Negative OXYCODONE SCREEN Negative PHENCYCLIDINE SCREEN Negative FENTANYL SCREEN, UR QUAL Negative Narrative: The expected value for all of the drugs listed above is Negative. The following drugs or drug groups have been screened for by Immunoassay at the following thresholds: Amphetamine class (1000 ng/mL) Barbiturates (200 ng/mL) Benzodiazepines (200 ng/mL) Cocaine (300 ng/mL) Methadone (300 ng/mL) Opiates (300 ng/mL) Oxycodone (100 ng/mL) PCP (25 ng/mL) Fentanyl (1.0 ng/ml) NOTE: These results are for medical treatment only. Analysis performed using non-forensic procedures. POSITIVE results are NOT confirmed by a more specific alternative method unless requested. If confirmation is needed, request confirmation under separate order. HCG QUALITATIVE URINE HCG,URINE QUAL Negative Narrative: is the most common reason for HCG in urine, although choriocarcinoma, hydatidiform mole, and certain nontrophoblastic malignancies also result in detectable urinary HCG levels. Sensitivity = 20mIU/mL. All other labs were within normal range or not returned as of this dictation. EMERGENCY DEPARTMENT COURSE and DIFFERENTIAL DIAGNOSIS/MDM: Vitals: Vitals: 10/08/25 1750 10/08/25 2107 10/08/25 2201 BP: (!) 171/123 (!) 143/105 114/74 Pulse: (!) 103 (!) 107 98 Resp: 18 18 16 Temp: 36.7 C (98 F) 37.1 C (98.7 F) 37.1 C (98.8 F) TempSrc: Temporal Temporal Temporal SpO2: 100% 100% 99% Medications haloperidol lactate (Haldol) injection 5 mg (has no administration in time range) midazolam (Versed) injection 2 mg (has no administration in time range) cloNIDine (Catapres) tablet 0.1 mg (0.1 mg Oral Given 10/08/251924) QUEtiapine (SEROquel) tablet 50 mg (50 mg Oral Given 10/08/251924) lamoTRIgine (LaMICtal) tablet 100 mg (100 mg Oral Given 10/08/251924) SCREENINGS MDM elements: The patient presented with chief complaint of daniella. The differential diagnosis associated with this patient's presentation includes bipolar disorder, manic episode, substance abuse, suicidal ideation, homicidal ideation. Our workup consisted of ordering/reviewing: Vital signs reveal hypertension, mild tachycardia. Patient is hyperactive on exam, pressured speech, this and combined with her story that he does not feel she is safe at home any of significance earns about her safety patient will be pink slipped, medically cleared and transferred to [facility] once medically cleared. Patient is in agreement with this plan. EKG: Sinus rhythm, ventricular rate of 89, left axis deviation, no ST elevations or depressions, no T wave inversions, nonspecific EKG not dramatically changed from previous ED Course as of 10/08/252244Oct 08, 20251912 Patient is now complaining of crushing substernal chest pain and states that she is now from her and that she would like her nightly medications including clonidine, Lamictal, Seroquel. Given this we will add on cardiac workup, give patient medications. [AK] 2021 Patient is medically cleared. Plan for transfer to [facility]. [AK] 2239 I was called to room by nursing staff as patient wanted to speak with me. She stated that she spoke to Reid and that she told him that she needed a second chance. She states she is ANO x 4 and is doing well and is requesting to be discharged home. I informed patient that she is pink slipped and she will not be going home. She requested an officer to report my crimes to. She also requested something for her crushing chest pain which has been going on for several months. Her troponin is 3, her EKG is nonischemic and her chest x-ray is normal. Patient was offered Tylenol and she became very upset and began to yell at me. [AK] 2243 Patient continuously hitting nurse help button in room, becoming increasingly agitated. Will medicate with Haldol and Versed [AK] ED Course User Index [AK] Yaron Alvarado MD Diagnoses as of 10/08/252244 Daniella (HCC) PROCEDURES: Unless otherwise noted below, none Procedures CRITICAL CARE TIME None FINAL IMPRESSION 1. Daniella (HCC) DISPOSITION Transfer To Another Facility 10/08/2025 08:23:20 PM PATIENT REFERRED TO: No follow-up provider specified. DISCHARGE MEDICATIONS: New Prescriptions No medications on file (Comment: Please note this report has been produced using speech recognition software and may contain errors related to that system including errors in grammar, punctuation, and spelling, as well as words and phrases that may be inappropriate. If there are any questions or concerns please feel free to contact the dictating provider for clarification.) Yaron Alvarado MD (electronically signed) Emergency Medicine Provider Yaron Alvarado MD 10/08/252022 Yaron Alvarado MD 10/08/252241 [1] Past Medical History: Diagnosis Date Anesthesia complication Anxiety Asthma ([facility]) Depression BIGGS (dyspnea on exertion) Fatigue GERD (gastroesophageal reflux disease) History of UTI Memory difficulty Morbid obesity, unspecified obesity type ([facility]) Prediabetes Snoring [2] Past Surgical History: Procedure Laterality Date APPENDECTOMY 2007 SECTION, LOW TRANSVERSE Bilateral TYMPANOSTOMY TUBE PLACEMENT UPPER GI ENDOSCOPY,EXAM (HISTORICAL) 08/19/2023 WISDOM TOOTH EXTRACTION 2017 [3] Family History Adopted: Yes [4] Social History Socioeconomic History Marital status: Tobacco [...] No Physically Abused: No Sexually Abused: No Yaron Alvarado MD 10/08/25 2245 [facility] 10-06-2025 Note SARS-COV-2 (AGENT OF COVID-19) RNA: Not detected INFLUENZA A RNA: Not detected INFLUENZA B RNA: Not detected RESPIRATORY SYNCYTIAL VIRUS (RSV) RNA: Not detected [facility] Comment on above: Performed By: #### 9 [id number] #### [facility] CLIA [id number] [address] [place] [address] OF [facility] 10-05-2025 Emergency department Note Pt seen walking out of exam room with . Pt then stopped in triage and sat in chair tearful. Pt heard speaking to stating she wanted to go home and that no one cared about her. Pt heard saying I hope I . You guys don't care. You guys are not taking me seriously. Pt and walked out to the waiting room. Triage nurse called for assistance to triage for a pt. Pt was seen laying on the ground talking to . Pt then tried to stand up. pick pt up and sat her in a wheel chair. Pt wheeled back into triage area. Carmen LEES attempted to speak to pt. Pt tearful. Pt stating, Take me home. The next time you see me I'm going to be . Don't touch me. I need all of this recorded. I can't not breath and I need oxygen. Pt's pulse ox documented at 100% RA. Pt then walked out of triage area. PA stated we could not hold her against her will. 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 Pt then stopped in triage and sat in chair tearful. Pt heard speaking to stating she wanted to go home and that no one cared about her. Pt heard saying I hope I . You guys don't care. You guys are not taking me seriously. Pt and walked out to the waiting room. Triage nurse called for assistance to triage for a pt. Pt was seen laying on the ground talking to . Pt then tried to stand up. pick pt up and sat her in a wheel chair. Pt wheeled back into triage area. Carmen LEES attempted to speak to pt. Pt tearful. Pt stating, Take me home. The next time you see me I'm going to be . Don't touch me. I need all of this recorded. I can't not breath and I need oxygen. Pt's pulse ox documented at 100% RA. Pt then walked out of triage area. PA stated we could not hold her against her will. 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 Pt asked why she left her room VC4 pt states she wants to leave I hope I day an no one cares about me. Pt proceded to lobby and then laid on ground closed her eye and proceded to talk with boyfriend and had her boyfriend pick her up. Provider Rosalee in lobby and spoke with pt. Tried bringing pt back to [facility] for labs and medications ordered. Pt refused. This RN went back to triage while pt continued speaking with provider. Emergency Department Encounter [facility] ED Patient: Martita Ricketts : 2000 Date of Evaluation: 10/05/2025 ED Supervising Physician: Yaron Alvarado MD I personally evaluated Martita Ricketts and made/approved the management plan and take responsibility for the patient management. This will serve as my Supervisory note and shared attestation. I did perform a substantive portion of the visit including all aspects of the Medical Decision Making. I wore appropriate PPE for the entirety of this encounter. In brief, Martita Ricketts is a 25 y.o. that presents to the emergency department with history of fibromyalgia, migraine headaches. States she has had chest pain, shortness of breath, headache for the last 3 months. Patient states that she feels like she is about to . She denies any history of DVT or PE. She is not on oral contraceptives. She denies any cardiac history. Patient states she was seen at [facility] yesterday and was discharged and that nobody took her seriously. Patient asked what the signs and symptoms of a pulmonary embolism are which I told her. She told me that she has all of those signs. When I told her that her vital signs are normal and she does not meet the criteria she told me that she does not know why her vital signs are normal and that normally they are not normal. She then told me that I cannot understand her clinical condition because I am a man. I told her that I would like to get some labs, chest x-ray and EKG and she told me that she already had a chest x-ray yesterday so she does not need another 1. I told her I cannot see this chest x-ray so I would like to get it so that I can rule out potentially life-threatening conditions and patient said you are an asshole and asked me to leave the room. Focused exam: Patient awake, alert, not in any distress. Resting comfortably in bed in the position when I entered the room. Able to straighten her legs out, move her arms out difficulty. Lungs are clear to auscultation bilaterally. Heart regular rate and rhythm. Abdomen soft nontender nondistended. No peripheral edema. No posterior calf tenderness. Strong distal pulses in all 4 extremities. I attempted to have patient perform neurologic examination after she straightened her legs out and she stated that she could not perform the tasks. Brief ED course/MDM: Patient is a 25-year-old female with past medical history of fibromyalgia, migraine headaches who presents with multiple complaints. Vital signs are stable, no tachycardia tachypnea or hypoxia. Patient was reportedly seen at [facility] yesterday however I do not see this in the chart at this time. Offered patient laboratory workup and she became upset with this stating that she had already had this but then told me that I was not taking her seriously. Patient is concerned about pulmonary embolism, patient is PERC negative. I informed patient and her what that means however they interrupted me multiple times and refused to listen demanding for a test to rule out pulmonary embolism. I offered them a D-dimer to rule out PE however at this point they demanded I left the room. Patient reportedly became angry at nursing staff after I left, yelled at them and eloped from the emergency department. Diagnostics interpreted by me: EKG(s) sinus rhythm, ventricular of 66, left axis deviation, no ST elevations or depressions meeting STEMI criteria, no evidence of right heart strain, sinus EKG I personally discussed the patient's management with other clinicians: none All diagnostic, treatment, and disposition decisions were made by myself in conjunction with the CED. For all further details of the patient's emergency department visit, please see their documentation. (Comment: Please note this report has been produced using speech recognition software and may contain errors related to that system including errors in grammar, punctuation, and spelling, as well as words and phrases that may be inappropriate. If there are any questions or concerns please feel free to contact the dictating provider for clarification.) Yaron Alvarado MD Acute [facility] Yaron Alvarado MD 10/05/25 1258 documented in this encounter [facility] 10-05-2025 Emergency department Note Pt was sitting in TRA2. Pt asked why she left her room VC4 pt states she wants to leave I hope I day an no one cares about me. Pt proceded to lobby and then laid on ground closed her eye and proceded to talk with boyfriend and had her boyfriend pick her up. Provider Rosalee in lobby and spoke with pt. Tried bringing pt back to VC4 for labs and medications ordered. Pt refused. This RN went back to triage while pt continued speaking with provider. [facility] 10-05-2025 Physician Emergency department Note Emergency Department Encounter [facility] ED Patient: Martita Ricketts : 2000 Date of Evaluation: 10/05/2025 ED Supervising Physician: Yaron Alvarado MD I personally evaluated Martita Ricketts and made/approved the management plan and take responsibility for the patient management. This will serve as my Supervisory note and shared attestation. I did perform a substantive portion of the visit including all aspects of the Medical Decision Making. I wore appropriate PPE for the entirety of this encounter. In brief, Martita Ricketts is a 25 y.o. that presents to the emergency department with history of fibromyalgia, migraine headaches. States she has had chest pain, shortness of breath, headache for the last 3 months. Patient states that she feels like she is about to . She denies any history of DVT or PE. She is not on oral contraceptives. She denies any cardiac history. Patient states she was seen at [facility] yesterday and was discharged and that nobody took her seriously. Patient asked what the signs and symptoms of a pulmonary embolism are which I told her. She told me that she has all of those signs. When I told her that her vital signs are normal and she does not meet the criteria she told me that she does not know why her vital signs are normal and that normally they are not normal. She then told me that I cannot understand her clinical condition because I am a man. I told her that I would like to get some labs, chest x-ray and EKG and she told me that she already had a chest x-ray yesterday so she does not need another 1. I told her I cannot see this chest x-ray so I would like to get it so that I can rule out potentially life-threatening conditions and patient said you are an asshole and asked me to leave the room. Focused exam: Patient awake, alert, not in any distress. Resting comfortably in bed in the position when I entered the room. Able to straighten her legs out, move her arms out difficulty. Lungs are clear to auscultation bilaterally. Heart regular rate and rhythm. Abdomen soft nontender nondistended. No peripheral edema. No posterior calf tenderness. Strong distal pulses in all 4 extremities. I attempted to have patient perform neurologic examination after she straightened her legs out and she stated that she could not perform the tasks. Brief ED course/MDM: Patient is a 25-year-old female with past medical history of fibromyalgia, migraine headaches who presents with multiple complaints. Vital signs are stable, no tachycardia tachypnea or hypoxia. Patient was reportedly seen at [facility] yesterday however I do not see this in the chart at this time. Offered patient laboratory workup and she became upset with this stating that she had already had this but then told me that I was not taking her seriously. Patient is concerned about pulmonary embolism, patient is PERC negative. I informed patient and her what that means however they interrupted me multiple times and refused to listen demanding for a test to rule out pulmonary embolism. I offered them a D-dimer to rule out PE however at this point they demanded I left the room. Patient reportedly became angry at nursing staff after I left, yelled at them and eloped from the emergency department. Diagnostics interpreted by me: EKG(s) sinus rhythm, ventricular of 66, left axis deviation, no ST elevations or depressions meeting STEMI criteria, no evidence of right heart strain, sinus EKG I personally discussed the patient's management with other clinicians: none All diagnostic, treatment, and disposition decisions were made by myself in conjunction with the CED. For all further details of the patient's emergency department visit, please see their documentation. (Comment: Please note this report has been produced using speech recognition software and may contain errors related to that system including errors in grammar, punctuation, and spelling, as well as words and phrases that may be inappropriate. If there are any questions or concerns please feel free to contact the dictating provider for clarification.) Yaron Alvarado MD Acute Care [facility] Yaron Alvarado MD 10/05/25 1258 [facility] [employer] Phone: 10-05-2025 Hospital Discharg e instructions Patient Education 10/05/2025 01:59:08 Shortness of Breath (Dyspnea) Shortness of Breath (Dyspnea) Shortness of breath is the feeling that you can't catch your breath or get enough air. It is also known as dyspnea. Dyspnea can be caused by many different conditions. They include: Acute asthma attack Worsening of chronic lung diseases such as chronic bronchitis and emphysema Heart failure. This is when weak heart muscle allows extra fluid to collect in the lungs. Panic attacks or anxiety. Fear can cause rapid breathing (hyperventilation). Pneumonia, or an infection in the lung tissue Exposure to toxic substances, fumes, smoke, or certain medicines Blood clot in the lung (pulmonary embolism). This is often from a piece of blood clot in a deep vein of the leg (deep vein thrombosis) that breaks off and travels to the lungs. Heart attack or heart-related chest pain (angina) Anemia Collapsed lung (pneumothorax) Dehydration Based on your visit today, the exact cause of your shortness of breath is not certain. Your tests don t show any of the serious causes of dyspnea. You may need other tests to find out if you have a serious problem. It s important to watch for any new symptoms or symptoms that get worse. Follow up with your healthcare provider as directed. Home care Follow these tips to take care of yourself at home: When your symptoms are better, go back to your usual activities. If you smoke, you should stop. Join a quit-smoking program or ask your healthcare provider for help. Eat a healthy diet and get plenty of sleep. Get regular exercise. Talk with your healthcare provider before starting to exercise, especially if you have other medical problems. Cut down on the amount of caffeine and stimulants you consume. Follow-up care Follow up with your healthcare provider, or as advised. If tests were done, you will be told if your treatment needs to be changed. You can call as directed for the results. If an X-ray was taken, a specialist will review it. You will be notified of any new findings that may affect your care. Call 911 Shortness of breath may be a sign of a serious medical problem. For example, it may be a problem with your heart or lungs. Call 911 if you have worsening shortness of breath or trouble breathing, especially with any of the symptoms below: Confusion or difficulty waking Fainting or loss of consciousness. Fast or irregular heartbeat Coughing up blood Pain in your chest, arm, shoulder, neck, or upper back Sweating When to seek medical advice Call your healthcare provider right away if any of these occur: Slight shortness of breath or wheezing Redness, pain or swelling in your leg, arm, or other body area Swelling in both legs or ankles Fast weight gain Dizziness or weakness Fever of 100.4 F (38 C) or higher, or as directed by your healthcare provider [id number] [employer]. [address] [place] [address], [place] [address]. All rights reserved. This information is not intended as a substitute for professional medical care. Always follow your healthcare professional's instructions. Follow Up Care 10/04/2025 23:10:12 With:Go to emergency room if symptoms worsen Address:Unknown When:2-4 days With:Follow up with primary care provider Address:Unknown [facility] Note Discharge Instructions Thank you for allowing [facility] to assist you with your healthcare needs. The following is important discharge information regarding your hospital visit. Diagnosis from Today's Visit Shortness of breath What to Do Next Instructions from Your Care Team Please call your primary care provider and your spindle setter for further outpatient evaluation and management of your symptoms. Return to the emergency department for any acute worsening symptoms or concerns. No qualifying data available. Post Acute Orders No qualifying data available. You Need to Schedule the Following Appointments Follow Up with Go to emergency room if symptoms worsen When:Within 2-4 days Follow Up with Follow up with primary care provider When:Within 2-4 days Allergies Ativan hallucinations, seritonin syndrom penicillin Medications Please ask your primary doctor [...] 1 tablet by mouth at bedtime Unchanged busPIRone (busPIRone 10 mg oral tablet) 1 tab(s) by mouth Three (3) times a day Unchanged escitalopram (escitalopram 5 mg oral tablet) 1 tab(s) by mouth Once a day Unchanged FLUoxetine (PROzac 10 mg oral capsule) 1 cap by mouth Once a day Duration: 30 Days Unchanged hydrOXYzine (hydrOXYzine hydrochloride 50 mg oral tablet) 1 tab(s) by mouth Daily at bedtime Unchanged lamoTRIgine (lamoTRIgine 150 mg oral tablet) 1 tab(s) by mouth Once a day Duration: 30 Days TAKE 1 TABLET BY MOUTH EVERY DAY Unchanged rizatriptan (rizatriptan 10 mg oral tablet) 1 tab(s) by mouth Once as needed for as needed for migraine headache Please take this list to your next doctor s visit. Bring all medications you take, including over the counter medications, herbals and other supplements with you to your doctor s visit. Patients and families are reminded to discard old lists and to update any records with all medication providers or retail pharmacies. Education Materials Shortness of Breath (Dyspnea) Shortness of breath is the feeling that you can't catch your breath or get enough air. It is also known as dyspnea. Dyspnea can be caused by many different conditions. They include: Acute asthma attack Worsening of chronic lung diseases such as chronic bronchitis and emphysema Heart failure. This is when weak heart muscle allows extra fluid to collect in the lungs. Panic attacks or anxiety. Fear can cause rapid breathing (hyperventilation). Pneumonia, or an infection in the lung tissue Exposure to toxic substances, fumes, smoke, or certain medicines Blood clot in the lung (pulmonary embolism). This is often from a piece of blood clot in a deep vein of the leg (deep vein thrombosis) that breaks off and travels to the lungs. Heart attack or heart-related chest pain (angina) Anemia Collapsed lung (pneumothorax) Dehydration Based on your visit today, the exact cause of your shortness of breath is not certain. Your tests don t show any of the serious causes of dyspnea. You may need other tests to find out if you have a serious problem. It s important to watch for any new symptoms or symptoms that get worse. Follow up with your healthcare provider as directed. Home care Follow these tips to take care of yourself at home: When your symptoms are better, go back to your usual activities. If you smoke, you should stop. Join a quit-smoking program or ask your healthcare provider for help. Eat a healthy diet and get plenty of sleep. Get regular exercise. Talk with your healthcare provider before starting to exercise, especially if you have other medical problems. Cut down on the amount of caffeine and stimulants you consume. Follow-up care Follow up with your healthcare provider, or as advised. If tests were done, you will be told if your treatment needs to be changed. You can call as directed for the results. If an X-ray was taken, a specialist will review it. You will be notified of any new findings that may affect your care. Call 911 Shortness of breath may be a sign of a serious medical problem. For example, it may be a problem with your heart or lungs. Call 911 if you have worsening shortness of breath or trouble breathing, especially with any of the symptoms below: Confusion or difficulty waking Fainting or loss of consciousness. Fast or irregular heartbeat Coughing up blood Pain in your chest, arm, shoulder, neck, or upper back Sweating When to seek medical advice Call your healthcare provider right away if any of these occur: Slight shortness of breath or wheezing Redness, pain or swelling in your leg, arm, or other body area Swelling in both legs or ankles Fast weight gain Dizziness or weakness Fever of 100.4 F (38 C) or higher, or as directed by your healthcare provider [id number] [employer]. [address] [place] [address]. All rights reserved. This information is not intended as a substitute for professional medical care. Always follow your healthcare professional's instructions. Additional Information VACCINATE! IT SAVES LIVES! Members of the community who have not yet received the COVID-19 vaccine and would like to receive it can visit one of [facility] vaccine clinics. There are many vaccine clinic locations within the [facility]. For locations and available times, please visit [email or web address] [email or web address] It is important to note that some COVID mobile vaccine clinics are held outdoors and may be canceled in rainy or stormy conditions. To learn more about pediatric vaccinations (ages 5-11), we invite you to visit the [facility] webpage. https://www.[email or web address].org/p ages/5273-Pqavm-Mbpahridrfk-Freq hvhjty-Ybvzn-Tdvwqhzwq.html To learn more about the COVID-19 vaccine, we invite you to visit the CDC website for a list of frequently asked questions. https://www.cdc.gov/coronavirus/ 2019-ncov/vaccines/faq.html [facility] Patient Portal Access Instructions: Stay connected with your healthcare team and access your personal medical information anytime with the [facility] [employer] Patient Portal. If you would like a full copy of your medical records please contact the [facility] Medical Records Department Saturday through Saturday between 8a.m. and 4:30p.m. Please follow the directions below to access the portal: 1.Access the email account you provided upon registration to the hospital.2.Look for an invitation email from [facility].3.Open the email and access the invitation link: Accept Invitation to [facility]4.Fill in the required jernigan to create your account. To access your account, visit [employer]/Hit the Markhowie or scan the [employer] code above. Click the blue button labeled Access Patient Portal and then log in with the username and password that you created in the steps above. You can then view a summary of results, a summary of your visits, and the ability to download your summaries to your computer or send the information securely to a physician. Remember that your healthcare information is confidential, so carefully consider who you will allow to register on the [employer] Patient Portal for access to your information. You can also access the [employer] Patient Portal on the [employer]. Simply click on Health Records under Health Data and then click on the [employer] logo. HOW TO SAFELY DISPOSE OF PRESCRIPTION [...] Call your local pharmacy or go to [email or web address] to find one close to you.3.Make use of household items: Use cat litter or old coffee grounds to dispose medications if other options are not available. Mix your drugs with these household products, seal them in an airtight container and throw it into the garbage. Call [facility]: [phone] to be sure your drugs can be [...] a CHART COPY Signatures Patient Education Materials Shortness of Breath (Dyspnea) Medication Leaflets My discharge plan and instructions have been reviewed and explained to me and I,MARTITA RICKETTS understand my current condition and have read and understand these discharge instructions. I have received a written copy of the plan/instructions. If I have questions, I am aware that I should contact my doctor. 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 No focal consolidation or pulmonary edema. No pleural effusion or visible pneumothorax. The bony thorax appears intact. IMPRESSION: No acute radiographic findings. Preliminary Report was Dictated by a Resident Interpreted by: Lacie Andrew MD Preliminary Report By: Yaron Infante Electronically signed By Lacie Andrew MD Dictated Date: 10/05/2025 1:08:46 AM Prelim Date: 10/05/2025 1:10:43 AM Sign Date: 10/05/2025 2:26:05 AM Ordering Provider: ROXANN GARCIA [facility]11-03-2025 Note* Exam Date Time Procedure Performing Provider Status 10/04/25 11:49 PM EKG [ED AOH] - CV ROXANN GARCIA DO; A akh (Verified) ECG Final Report Sinus arrhythmia Electronic Signature: ROXANN GARCIA DO 10/05/2025 00:30:56 [facility]10-08-2025 NoteHNO ID: [id number] Author: ALVAREZ TSAI PA-C Service: ? Author Type: Physician Lion Tamer Type: Progress Notes Filed: 09/08/2025 18:29 Note Text: Rheumatology CONSULTATION Date of Service: 09/08/2025 Patient: Martita Ricketts Medical Record: [id number] Primary Care Physician: Magda Kelly NP Last Rheumatology visit: [facility] at [facility] Referring Provider: Magda Kelly [facility] [address] Martita Ricketts is here today at request of Magda Kelly NP specifically for consultation of my opinion in regards to the chief complaint listed below. Correspondence will be shared today via the [facility] electronic health record or through regular mail, where applicable. Recording using [employer] software for draft documentation of the visit was discussed with the patient/authorized route sales representative; all questions welcomed and answered. Patient/authorized route sales representative agreed to proceed History of Present Illness Chief Complaint: Joint pain, inflammation, arthritis She is currently taking ibuprofen, meloxicam. Martita is RF negative - 9 (05/13/2018). Her most recent RON was negative (11/07/2015). PMH of Traumatic brain injury, seizure disoder, headache, Tremors of hands and face, Asthma, Allergic rhinitis, Behavioral disorder, Pineal hyperplasia, insulin-resistant diabetes mellitus and somatic abnormalities Martita is a 25-year-old female with a history of asthma, migraines, seizures, anxiety, depression, PTSD, ADHD, and eczema, presenting for evaluation of chronic joint pain and stiffness. Martita reports onset of joint pain and stiffness beginning in May of last year, with symptoms initially improving but recurring this year with increased severity. She describes the pain as diffuse, resembling flu-like myalgias, and notes significant fatigue. The pain is most pronounced in the evenings, becoming excruciating and affecting her ability to wear bras due to shoulder pain/tenderness/discomfort from straps. She experiences morning stiffness lasting approximately 3 hours, with persistent pain throughout the day. Martita reports pain in her hands, shoulders, and knees. Hand pain is described as cramping and stiffness, particularly after activities such as typing and playing video games. She notes visible swelling in her hands during severe flare-ups. Shoulder pain is constant, unrelated to weight-bearing, and persists even without external pressure. Knee pain is severe, recalling episodes from childhood where her knees felt swollen and painful without visible abnormalities. She also reports chronic migraines associated with dizziness and lightheadedness, for which she is actively receiving care from neurology and her primary care provider. She has tried various [id number]-ita-[id number] medications, including Tylenol, ibuprofen, and NyQuil, with minimal relief. A recent ER visit for severe pain resulted in treatment with Toradol, Benadryl, and Reglan, which also provided no relief. She has attempted care management coordinator, muscle relaxers, anti-inflammatories, and painkillers without significant improvement. Warm water therapy and hot showers provide some temporary relief. Martita reports paresthesia in her arms and fingers bilaterally, as well as her toes, described as a stinging, burning sensation similar to extremities falling asleep. This occurs every morning regardless of sleeping position and resolves after some time. She denies current use of medications for neuropathic pain such as gabapentin or Lyrica. She reports oral ulcers, intermittent dyspnea related to asthma, and alternating diarrhea and constipation with a history of blood in stool. She denies psoriasis but has eczema. She reports erythematous, painful, and inflamed eyes with a history of a subconjunctival hemorrhage. She denies known trauma or injury. She reports a history of unintentional weight loss of 30 pounds last year without trying, accompanied by significant illness. She denies current weight loss but notes persistent fatigue, describing it as feeling unrefreshed despite adequate sleep. She reports insomnia, managed with Seroquel at bedtime. She is currently taking multiple medications, including breathing treatments, calcium, clonidine, Lexapro, iron, Ajovy, Atarax, Motrin, Lamictal, Zofran as needed, and Seroquel 100 mg at bedtime. She is under the care of a psychiatrist, Brandy Rodriguez, in [facility]. She has a history of adenoidectomy, appendectomy, and a in 2021. She is adopted and has no known family medical history. She smokes marijuana daily, denies tobacco or alcohol use, and denies use of other drugs. 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 Recent labs from July 06 showed a CRP of 3.04, down from 6.8 in April. Other labs, including CBC, metabolic panel, TSH, RON, Sjogren's SSA and SS (more content not included)...[facility]09-17-2025 Hospital Discharge instructions Patient Education 08/18/2025 14:06:34 Migraine Headache: Stages and Treatment Migraine Headache: Stages and Treatment A migraine headache tends to progress in stages. Learning these stages can help you better understand what is happening. Then you can learn ways to reduce pain and relieve other symptoms. Methods forrelieving your symptoms include self-care and medicines. Migraine stages Migraines tend to progress through 4 stages. Many people don't have all stages, and stages may differ with each headache: Prodrome. A few hours to a day or so before the headache, you may feel tired, (yawning many times),uneasy, or lee. You may also feel bloated or crave certain foods. Aura. Up to an hour before the headache starts, some migraine sufferers experience aura flashing lights, blind spots, other vision problems, confusion, difficulty speaking, or other neurologic symptoms. Headache. Moderate to severe pain affects one side of the head and then can spread to both sides, often along with nausea. You may be highly sensitive to light, sound, and odors. Vomiting or diarrheamay also happen. This stage lasts 4 to 72 hours. Postdrome. After your headache ends, you may feel tired, achy, and washed out. This may last for a day or so. Self-care during a migraine Here is what you can do: Use a cold compress. Wrap a thin cloth around a cold pack, a cold can of soda, or a bag of frozen vegetables. Apply this to your presybeterian or other pain site. Drink fluids. If nausea makes it hard to drink, try sucking on ice. Rest. If possible, lie down. Try not to bend over, as this may increase your pain. Sometimes layingin a dark quiet room can help the migraine from being aggravated. Try caffeine. Some people find that drinking fluids with caffeine, such as coffee or tea, helps to lessen migraine pain. Using medicines Work with your healthcare provider to find the right medicines for you. Medicines for migraine may relieve pain (analgesics), relieve nausea, or attack the migraine's root causes (migraine-specific medicines). Rebound headache Taking analgesics each day, or even several times a week, may lead to more frequent and severe headaches. These are called rebound headaches. If you think you're having rebound headaches, tell your healthcare provider. He or she can help you safely decrease your medicine. Rebound caffeine withdrawal headaches can also happen. Certain medicines are addictive and can cause rebound headaches when discontinued abruptly. 2465-3175 [employer]. [address] [place] [address]. All rights reserved. This information is not intended as a substitute for professional medical care. Always follow yourhealthcare professional's instructions. Follow Up Care 08/18/2025 11:38:56 With:Call Physician Referral Address:Unknown When:2-4 days With:Call Physician Referral Address:Unknown When:2-4 days [facility] 09-17-2025 Note Discharge Instructions Thank you for allowing [facility] to assist you with your healthcare needs. The following is importantdischarge information regarding your hospital visit. Diagnosis from Today's Visit Migraine What to Do Next Instructions from Your Care Team No qualifying data available. Post Acute Orders No qualifying data available. You Need to Schedule the Following Appointments Follow Up with Call Physician Referral When:Within 2-4 days Follow Up with Call Physician Referral When:Within 2-4 days Allergies penicillin Medications Please ask your primary doctor or pharmacist before taking any other medication not listed, including over the counter drugs, herbal medications, vitamins and or supplements as they may interact withyour home medications. What How Much When Instructions Last Dose Unchanged albuterol (ProAir RespiClick 90 mcg/ inh inhalation powder) 2 puff(s) by inhalation Every 4 hours as needed for as needed Unchanged ARIPiprazole (ARIPiprazole 10 mg oral tablet) 1 tab(s) by mouth Once a day Duration: 30 Days take 1 tablet by mouth at bedtime Unchanged busPIRone (busPIRone 10 mg oral tablet) 1 tab(s) by mouth Three (3) times a day Unchanged escitalopram (escitalopram 5 mg oral tablet) 1 tab(s) by mouth Once a day Unchanged FLUoxetine (PROzac 10 mg oral capsule) 1 cap by mouth Once a day Duration: 30 Days Unchanged hydrOXYzine (hydrOXYzine hydrochloride 50 mg oral tablet) 1 tab(s) by mouth Daily at bedtime Unchanged lamoTRIgine (lamoTRIgine 150 mg oral tablet) 1 tab(s) by mouth Once a day Duration: 30 Days TAKE 1 TABLET BY MOUTH EVERY DAY Unchanged rizatriptan (rizatriptan 10 mg oral tablet) 1 tab(s) by mouth Once as needed for as needed for migraine headache Please take this list to your next doctor s visit. Bring all medications you take, including over the counter medications, herbals and other supplements with you to your doctor s visit. Patients and families are reminded to discard old lists and to update any records with all medication providers or retail pharmacies. Education Materials Migraine Headache: Stages and Treatment A migraine headache tends to progress in stages. Learning these stages can help you better understand what is happening. Then you can learn ways to reduce pain and relieve other symptoms. Methods forrelieving your symptoms include self-care and medicines. Migraine stages Migraines tend to progress through 4 stages. Many people don't have all stages, and stages may differ with each headache: Prodrome. A few hours to a day or so before the headache, you may feel tired, (yawning many times),uneasy, or lee. You may also feel bloated or crave certain foods. Aura. Up to an hour before the headache starts, some migraine sufferers experience aura flashing lights, blind spots, other vision problems, confusion, difficulty speaking, or other neurologic symptoms. Headache. Moderate to severe pain affects one side of the head and then can spread to both sides, often along with nausea. You may be highly sensitive to light, sound, and odors. Vomiting or diarrheamay also happen. This stage lasts 4 to 72 hours. Postdrome. After your headache ends, you may feel tired, achy, and washed out. This may last for a day or so. Self-care during a migraine Here is what you can do: Use a cold compress. Wrap a thin cloth around a cold pack, a cold can of soda, or a bag of frozen vegetables. Apply this to your presybeterian or other pain site. Drink fluids. If nausea makes it hard to drink, try sucking on ice. Rest. If possible, lie down. Try not to bend over, as this may increase your pain. Sometimes layingin a dark quiet room can help the migraine from being aggravated. Try caffeine. Some people find that drinking fluids with caffeine, such as coffee or tea, helps to lessen migraine pain. Using medicines Work with your healthcare provider to find the right medicines for you. Medicines for migraine may relieve pain (analgesics), relieve nausea, or attack the migraine's root causes (migraine-specific medicines). Rebound headache Taking analgesics each day, or even several times a week, may lead to more frequent and severe headaches. These are called rebound headaches. If you think you're having rebound headaches, tell your healthcare provider. He or she can help you safely decrease your medicine. Rebound caffeine withdrawal headaches can also happen. Certain medicines are addictive and can cause rebound headaches when discontinued abruptly. 5839-6463 [employer]. [address] [place] [address], [place] [address]. All rights reserved. This information is not intended as a substitute for professional medical care. Always follow yourhealthcare professional's instructions. Additional Information VACCINATE! IT SAVES LIVES! Members of the community who have not yet received the COVID-19 vaccine and would like to receive it can visit one of [facility] vaccine clinics. There are many vaccine clinic locations within the [facility]. For locations and available times, please visit www.[email or web address]/. It is important to note that some COVID mobile vaccine clinics are held outdoors and may be canceled in rainy or stormy conditions. To learn more about pediatric vaccinations (ages 5-11), we invite you to visit the [facility] webpage. https://www.[email or web address].org/pages/7873-Cgekz-Eiyxorxzeqz-Hdmbcttptp-Xedue-Ahn stions.htmlTo learn more about the COVID-19 vaccine, we invite you to visit the CDC website for a list of frequently asked questions. https://www.cdc.gov/coronavirus/2019-ncov/vaccines/faq.html [facility] Patient Portal Access Instructions: Stay connected with your healthcare team and access your personal medical information anytime with the [facility] Patient Portal. If you would like a full copy of your medical records please contact the [facility] Medical Records Department Saturday through Saturday between 8a.m. and 4:30p.m. Please follow the directions below to access the portal: 1.Access the email account you provided upon registration to the hospital.2.Look for an invitation email from [facility].3.Open the email and access the invitation link: Accept Invitation to [employer]4.Fill in the required jernigan to create your account. To access your account, visit [employer] or scan the QR code above. Click the [facility] Patient Portal and then log in with the username and password that you created in the steps above. You can then view a summary of results, a summary of your visits, and the ability to download your summaries to your computer or send the information securely to a physician. Re member that your healthcare information is confidential, so carefully consider who you will allow to register on the [facility] Patient Portal for access to your information. You can also access the [facility] Patient Portal on the [employer]. Simply click on Health Records under Health Data and then click on the [employer] logo. HOW TO SAFELY DISPOSE OF PRESCRIPTION MEDICATIONS Please use one of the following methods to safely dispose of your unused medications. 1.Use a drug disposal kit: the drug disposal pouch allows you to safely discard your old and unuseddrugs. Ask your nurse to give you one when you are discharged.2.Visit a local take-back location: Many local pharmacies and police departments have programs that collect old and unwanted prescriptiondrugs. Call your local pharmacy or go to http://[employer].Connect[place].com/0W8Ec4o to find one close to you.3.Make use of household items: Use cat litter or old coffee grounds to dispose medications if other options arenot available. Mix your drugs with these household products, seal them in an airtight container andthrow it into the garbage. Call [facility]: [phone] to be sure your drugs can be [...] drowsiness, such as benzodiazepines, also known as benzos,including diazepam and alprazolam, muscle relaxants or sleep aids. Never sell or share prescriptionopioids. This is illegal. Store opioids in a secure place and out of reach of others (including children, family, friends and visitors). The last page(s) of this document has been signed and retained as a CHART COPY Signatures Patient Education Materials Migraine Headache: Stages and Treatment Medication Leaflets My discharge plan and instructions have been reviewed and explained to me and I,MARTITA RICKETTS understand my current condition and have read and understand these discharge instructions. I have received a written copy of the plan/instructions. If I have questions, I am aware that I should contactmy doctor. Patient/Business Office Associate Signature: Date/Time: Relationship to Patient: Witness Name/Signature: Date/Time: [facility]08-15-2025 Hospital Discharge instructions Patient Education 07/16/2025 00:50:00 Headache, Unspecified Headache, Unspecified A number of things can cause headaches. The cause of your headache isn t clear. But it doesn t seemto be a sign of any serious illness. Headache affects almost everyone at some time. It is the most common reason people miss days from work or school. You could have a tension headache or a migraine headache. Stress can cause a tension headache. This can happen if you tense the muscles of your shoulders, neck, and scalp without knowing it. If this stress lasts long enough, you may develop a tension headache. It is not clear why migraines occur, but certain things called triggers can raise the risk of having a migraine attack. Migraine triggers may include emotional stress or depression, or by hormone changes during the menstrual cycle. Other triggers include control pills and other medicines, alcohol or caffeine, foods with tyramine (such as aged cheese, wine), eyestrain, weather changes, missed meals, and lack of sleep or oversleeping. Other causes of headache include: Viral illness with high fever Head injury with concussion Sinus, ear, or throat infection Dental pain and jaw joint (TMJ) pain More serious but less common causes of headache include stroke, brain hemorrhage, brain tumor, meningitis, and encephalitis. Home care Follow these tips when taking care of yourself at home: Don t drive yourself home if you were given pain medicine for your headache. Instead, have someone else drive you home. Try to sleep when you get home. You should feel much better when you wake up. Apply heat to the back of your neck to ease a neck muscle spasm. Take care of a migraine headache by putting an ice pack on your forehead or at the base of your skull. If you have nausea or vomiting, eat a light diet until your headache eases. If you have a migraine headache, use sunglasses when in the daylight or around bright indoor lighting until your symptoms get better. Bright glaring light can make this type of headache worse. Follow-up care Follow up with your healthcare provider, or as advised. Talk with your provider if you have frequent headaches. He or she can help figure out a treatment plan. By knowing the earliest signs of headache, and starting treatment right away, you may be able to stop the pain yourself. When to seek medical advice Call your healthcare provider right away if any of these occur: Your head pain suddenly gets worse after sexual intercourse or strenuous activity Your head pain doesn t get better within 24 hours You aren t able to keep liquids down (repeated vomiting) Fever of 100.4 F (38 C) or higher, or as directed by your healthcare provider Stiff neck Extreme drowsiness, confusion, or fainting Dizziness or dizziness with spinning sensation (vertigo) Weakness in an arm or leg or one side of your face You have trouble talking or seeing [id number] [employer]. [address] [place] [address]. All rights reserved. This information is not intended as a substitute for professional medical care. Always follow yourhealthcare professional's instructions. Follow Up Care 07/15/2025 22:12:48 With:Follow up with primary care provider Address:Unknown When:2-4 days Comments:Follow-up with your doctor, neurologist, get your MRI done tomorrow, return if any worsening or concerning symptoms. [facility] 08-15-2025 Note Discharge Instructions Thank you for allowing [facility] to assist you with your healthcare needs. The following is importantdischarge information regarding your hospital visit. Diagnosis from Today's Visit Headache What to Do Next Instructions from Your Care Team No qualifying data available. Post Acute Orders No qualifying data available. You Need to Schedule the Following Appointments Follow Up with Follow up with primary care provider When:Within 2-4 days Additional Information: Follow-up with your doctor, neurologist, get your MRI done tomorrow, returnif any worsening or concerning symptoms. Allergies penicillin Medications Please ask your primary doctor or pharmacist before taking any other medication not listed, including over the counter drugs, herbal medications, vitamins and or supplements as they may interact withyour home medications. What How Much When Instructions [...] medication providers or retail pharmacies. Education Materials Headache, Unspecified A number of things can cause headaches. The cause of your headache isn t clear. But it doesn t seemto be a sign of any serious illness. Headache affects almost everyone at some time. It is the most common reason people miss days from work or school. You could have a tension headache or a migraine headache. Stress can cause a tension headache. This can happen if you tense the muscles of your shoulders, neck, and scalp without knowing it. If this stress lasts long enough, you may develop a tension headache. It is not clear why migraines occur, but certain things called triggers can raise the risk of having a migraine attack. Migraine triggers may include emotional stress or depression, or by hormone changes during the menstrual cycle. Other triggers include control pills and other medicines, alcohol or caffeine, foods with tyramine (such as aged cheese, wine), eyestrain, weather changes, missed meals, and lack of sleep or oversleeping. Other causes of headache include: Viral illness with high fever Head injury with concussion Sinus, ear, or throat infection Dental pain and jaw joint (TMJ) pain More serious but less common causes of headache include stroke, brain hemorrhage, brain tumor, meningitis, and encephalitis. Home care Follow these tips when taking care of yourself at home: Don t drive yourself home if you were given pain medicine for your headache. Instead, have someone else drive you home. Try to sleep when you get home. You should feel much better when you wake up. Apply heat to the back of your neck to ease a neck muscle spasm. Take care of a migraine headache by putting an ice pack on your forehead or at the base of your skull. If you have nausea or vomiting, eat a light diet until your headache eases. If you have a migraine headache, use sunglasses when in the daylight or around bright indoor lighting until your symptoms get better. Bright glaring light can make this type of headache worse. Follow-up care Follow up with your healthcare provider, or as advised. Talk with your provider if you have frequent headaches. He or she can help figure out a treatment plan. By knowing the earliest signs of headache, and starting treatment right away, you may be able to stop the pain yourself. When to seek medical advice Call your healthcare provider right away if any of these occur: Your head pain suddenly gets worse after sexual intercourse or strenuous activity Your head pain doesn t get better within 24 hours You aren t able to keep liquids down (repeated vomiting) Fever of 100.4 F (38 C) or higher, or as directed by your healthcare provider Stiff neck Extreme drowsiness, confusion, or fainting Dizziness or dizziness with spinning sensation (vertigo) Weakness in an arm or leg or one side of your face You have trouble talking or seeing [id number] [employer]. [address] [place] [address]. All rights reserved. This information is not intended as a substitute for professional medical care. Always follow yourhealthcare professional's instructions. Additional Information VACCINATE! IT SAVES LIVES! Members of the community who have not yet received the COVID-19 vaccine and would like to receive it can visit one of [facility] vaccine clinics. There are many vaccine clinic locations within the [facility]. For locations and available times, please visit www.[email or web address].[email or web address]/. It is important to note that some COVID mobile vaccine clinics are held outdoors and may be canceled in rainy or stormy conditions. To learn more about pediatric vaccinations (ages 5-11), we invite you to visit the [facility] webpage. https://www.[facility].org/pages/2841-Ztqdm-Qvbpbrsafjy-Wbqblmwsqm-Tbwum-Ile stions.htmlTo learn more about the COVID-19 vaccine, we invite you to visit the CDC website for a list of frequently asked questions. https://www.cdc.gov/coronavirus/2019-ncov/vaccines/faq.html [employer] Patient Portal Access Instructions: Stay connected with your healthcare team and access your personal medical information anytime with the [employer] Patient Portal. If you would like a full copy of your medical records please contact the [facility] Medical Records Department Saturday through Saturday between 8a.m. and 4:30p.m. Please follow the directions below to access the portal: 1.Access the email account you provided upon registration to the [facility].2.Look for an invitation email from [facility].3.Open the email and access the invitation link: Accept Invitation to [employer] App4.Fill in the required jernigan to create your account. Sign into www.[employer] with your username and password that you [...] you will allow to register on the [employer] Patient Portal for access to your information. You can also access the [employer] Patient Portal on the [employer]. Simply click on Health Records under [facility] and then click on the [employer] logo. HOW TO SAFELY DISPOSE OF PRESCRIPTION MEDICATIONS Please use one of the following methods to safely dispose of your unused medications. 1.Use a drug disposal kit: the drug disposal pouch allows you to safely discard your old and unuseddrugs. Ask your nurse to give you one when you are discharged.2.Visit a local take-back location: Many local pharmacies and police departments have programs that collect old and unwanted prescriptiondrugs. Call your local pharmacy or go to http://[employer].Connect[place].com/7F4Ec3m to find one close to you.3.Make use of household items: Use cat litter or old coffee grounds to dispose medications if other options arenot available. Mix your drugs with these household products, seal them in an airtight container andthrow it into the garbage. Call [facility]: [phone] to be sure your drugs can be [...] drowsiness, such as benzodiazepines, also known as benzos,including diazepam and alprazolam, muscle relaxants or sleep aids. Never sell or share prescriptionopioids. This is illegal. Store opioids in a secure place and out of reach of others (including children, family, friends and visitors). The last page(s) of this document has been signed and retained as a CHART COPY Signatures Patient Education Materials Headache, Unspecified Medication Leaflets My discharge plan and instructions have been reviewed and explained to me and IMARY ELIZABETH A understand my current condition and have read and understand these discharge instructions. I have received a written copy of the plan/instructions. If I have questions, I am aware that I should contactmy doctor. Patient/Business Office Associate Signature: Date/Time: Relationship to Patient: Witness Name/Signature: Date/Time: [facility]07-29-2025 Telephone encounter Note* Telephone Encounter - Julia Chahal MA - 06/29/2025 6:21 PM EDT Patient given results and verbalized understanding of instructions given. Julia Chahal MA [facility]07-29-2025 Miscellaneous Notes* Telephone Encounter - Julia Chahal MA - 06/29/2025 6:21 PM EDT Patient given results and verbalized understanding of instructions given. Julia Chahal MA * Telephone Encounter - Bernie Fang PA - 06/29/2025 6:18 PM EDT Called patient with xr result. Left voicemail to return call. If pt returns call, please let her know chest x-ray was normal no pneumonia I have sent a cough suppressant to pharmacy documented in this encounter[facility] Telephone encounter Note * Telephone Encounter - Bernie Fang PA - 06/29/2025 6:18 PM EDT Called patient with xr result. Left voicemail to return call. If pt returns call, please let her know chest x-ray was normal no pneumonia I have sent a cough suppressant to pharmacy [facility]07-29-[facility]25 History of Present illness Narrative* Summer Mcleod RT(R) - 06/29/2025 5:30 PM EDT Radiology Service Progress Note PATIENT NAME: Martita Ricketts DATE OF SERVICE: June 29, 2025 TIME: 5:22 PM PATIENT IDENTITY VERIFICATION COMPLETED USING TWO (2) IDENTIFIERS: Name and Date of confirmedby patient verbally. FALL SCREENING: Has the patient had 2 falls in the last year or 1 fall with injury or currently using an Ambulatory Assistive Device (Walker, Cane, Wheelchair, Crutches, etc.)? No PATIENT GENDER DATA: Assigned female at . status: : No status:NO. PATIENT RELEVANT IMPLANT DATA REVIEWED: Yes PATIENT PRESENTS WITH AN IMPLANTABLE OR ATTACHED HAND WOVEN CARPET AND RUG MENDER: No RADIOLOGY DEPARTMENT: General X-ray: Exam(s) Completed: Chest X-Ray PERIPHERAL IV DATA: Not applicable SIGNED BY: RT Reyna(R) June 29, 2025 5:22 PM * Summer Mcleod RT(R) - 06/29/2025 5:30 PM EDT Radiology Service Progress Note PATIENT NAME: Martita Ricketts DATE OF SERVICE: June 29, 2025 TIME: 5:33 PM PATIENT IDENTITY VERIFICATION COMPLETED USING TWO (2) IDENTIFIERS: Name and Date of confirmedby patient verbally. FALL SCREENING: Has the patient had 2 falls in the last year or 1 fall with injury or currently using an Ambulatory Assistive Device (Walker, Cane, Wheelchair, Crutches, etc.)? No PATIENT GENDER DATA: Assigned female at . status: : No status:NO. PATIENT RELEVANT IMPLANT DATA REVIEWED: Yes PATIENT PRESENTS WITH AN IMPLANTABLE OR ATTACHED HAND WOVEN CARPET AND RUG MENDER: No RADIOLOGY DEPARTMENT: General X-ray: Exam(s) Completed: Chest X-Ray PERIPHERAL IV DATA: Not applicable SIGNED BY: RT Reyna(R) June 29, 2025 5:33 PM documented in this encounterUniversity Hospitals [facility]07-29-2025 NoteHNO ID: [id number] Author: SUMMER MCLEOD RT(Gauri) Service: ? Author Type: Technologist Type: Progress Notes Filed: 06/29/2025 17:36 Note Text: Radiology Service Progress Note PATIENT NAME: Martita Ricketts DATE OF SERVICE: June 29, 2025 TIME: 5:33 PM PATIENT IDENTITY VERIFICATION COMPLETED USING TWO (2) IDENTIFIERS: Name and Date of confirmed by patient verbally. FALL SCREENING: Has the patient had 2 falls in the last year or 1 fall with injury or currently using an Ambulatory Assistive Device (Walker, Cane, Wheelchair, Crutches, etc.)? No PATIENT GENDER DATA: Assigned female at . status: : No status: NO. PATIENT RELEVANT IMPLANT DATA REVIEWED: Yes PATIENT PRESENTS WITH AN IMPLANTABLE OR ATTACHED HAND WOVEN CARPET AND RUG MENDER: No RADIOLOGY DEPARTMENT: General X-ray: Exam(s) Completed: Chest X-Ray PERIPHERAL IV DATA: Not applicable SIGNED BY: RT Reyna(Gauri) June 29, 2025 5:33 [facility]07-29-2025 NoteHNO ID: [id number] Author: SUMMER MCLEOD RT(R) Service: ? Author Type: Technologist Type: Progress Notes Filed: 06/29/2025 17:31 Note Text: Radiology Service Progress Note PATIENT NAME: Martita Ricketts DATE OF SERVICE: June 29, 2025 TIME: 5:22 PM PATIENT IDENTITY VERIFICATION COMPLETED USING TWO (2) IDENTIFIERS: Name and Date of confirmed by patient verbally. FALL SCREENING: Has the patient had 2 falls in the last year or 1 fall with injury or currently using an Ambulatory Assistive Device (Walker, Cane, Wheelchair, Crutches, etc.)? No PATIENT GENDER DATA: Assigned female at . status: : No status: NO. PATIENT RELEVANT IMPLANT DATA REVIEWED: Yes PATIENT PRESENTS WITH AN IMPLANTABLE OR ATTACHED HAND WOVEN CARPET AND RUG MENDER: No RADIOLOGY DEPARTMENT: General X-ray: Exam(s) Completed: Chest X-Ray PERIPHERAL IV DATA: Not applicable SIGNED BY: RT Reyna(Gauri) June 29, 2025 5:22 [facility]07-29-2025 NoteHNO ID: [id number] Author: BERNIE FANG PA Service: ? Author Type: Physician Lion Tamer Type: Progress Notes Filed: 06/29/2025 17:25 Note Text: [facility] Rocco Ricketts is a 25 year old female. Patient presents with: Cough: x couple weeks, sinus pressure x today, back pain saw chiropractor Saturday-spasms HPI Back Pain: - New onset back pain, described as burning and shooting down the spine. - Mid-back pain is worst - Chiropractor noted muscle spasms in a few areas. - Pain has slightly improved since chiropractic treatment on Saturday. - No recent known trauma or injury to the back. - Denies chronic back issues. - Pain radiates to the neck. - No loss of bowel/bladder function. - Occasional tingling fingers and toes. Congestion and Cough: - Congestion and sinus pressure began today. - Cough has persisted for three weeks, described as dry and unrelenting. - Yellow mucus noted when blowing nose. - Denies fever; reports chills. - History of asthma and allergies. Review of Systems Constitutional: (+) chills, (-) fever Head: (+) headache Ears/Nose/Mouth/Throat: (+) nasal congestion, (+) yellow nasal discharge, (+) sinus pressure Neck: (+) neck pain Respiratory: (+) dry cough Musculoskeletal: (+) mid back pain, (+) burning spinal pain Neurological: (+) numbness in fingers, (+) numbness in toes Objective BP 124/72 Pulse 90 Temp 36.7 ?C (98.1 ?F) Resp 16 Wt 81.6 kg (179 lb 14.3 oz) LMP 02/17/2023 (Exact Date) SpO2 98% Physical Exam Vitals and nursing note reviewed. Constitutional: General: She is not in acute distress. Appearance: Normal appearance. She is not toxic-appearing. HENT: Right Ear: Tympanic membrane and ear canal normal. Left Ear: Tympanic membrane and ear canal normal. Nose: Congestion present. Mouth/Throat: Mouth: Mucous membranes are moist. Pharynx: No oropharyngeal exudate or posterior oropharyngeal erythema. Eyes: Conjunctiva/sclera: Conjunctivae normal. Cardiovascular: Rate and Rhythm: Normal rate and regular rhythm. Pulmonary: Effort: Pulmonary effort is normal. Breath sounds: Normal breath sounds. No wheezing, rhonchi or rales. Musculoskeletal: Thoracic back: Spasms and tenderness present. No bony tenderness. Normal range of motion. Comments: Thoracic muscle tenderness and mild spasms noted. No midline tenderness. Normal ambulation. Normal sensation upper and lower extremities. Neurological: Mental Status: She is alert. General: No acute distress. HEENT: Oropharynx clear, sinus tenderness to palpation. Back: Paraspinal muscle tightness. { 1. Acute cough (R05.1) - Persistent dry cough with new onset of yellow nasal discharge and sinus congestion; no fevers, but reports chills. - History of asthma and allergies. - Ordered chest X-ray to rule out pneumonia and determine if antibiotics are necessary. - Will call patient with results of chest X-ray. 2. Muscle spasm of back (M62.830) - Acute mid-back pain with muscle spasm noted on exam; pain has persisted since Saturday despite care management coordinator. - Start muscle relaxant; advised patient not to drive while taking medication due to potential drowsiness. - Advised follow-up with primary care physician for further management. and Recording using My [employer]% software for draft documentation of the visit was discussed with the patient/authorized route sales representative; all questions welcomed and answered. Patient/authorized route sales representative agreed to proceed Diagnosis and treatment plan were discussed and questions were answered to the patient's satisfaction. Pt acknowledged understanding of concepts and follow up plan. Specific signs and symptoms that would indicate the need for higher level of care were discussed in detail warranting prompt ER evaluation. History and Record Review External record(s) reviewed: prior outpatient record. Differential Diagnoses - Viral cough/URI is more likely for the following reason(s): suggested by HANDP - Muscle strain/spasm is more likely for the following reason(s): suggested by HANDP - Cauda equina is less likely for the following reason(s): HANDP not suggestive - Fracture is less likely for the following reason(s): HANDP not suggestive - Pneumonia is less likely for the following reason(s): Awaiting x-ray result Disposition The patient was [facility]. [facility] History of Present illness Narrative* Bernie Fang PA - 06/29/2025 5:24 PM EDT [facility] Subjective Martita Ricketts is a 25 year old female. Patient presents with: Cough: x couple weeks, sinus pressure x today, back pain saw chiropractor Saturday-spasms HPI Back Pain: - New onset back pain, described as burning and shooting down the spine. - Mid-back pain is worst - Chiropractor noted muscle spasms in a few areas. - Pain has slightly improved since chiropractic treatment on Saturday. - No recent known trauma or injury to the back. - Denies chronic back issues. - Pain radiates to the neck. - No loss of bowel/bladder function. - Occasional tingling fingers and toes. Congestion and Cough: - Congestion and sinus pressure began today. - Cough has persisted for three weeks, described as dry and unrelenting. - Yellow mucus noted when blowing nose. - Denies fever; reports chills. - History of asthma and allergies. Review of Systems Constitutional: (+) chills, (-) fever Head: (+) headache Ears/Nose/Mouth/Throat: (+) nasal congestion, (+) yellow nasal discharge, (+) sinus pressure Neck: (+) neck pain Respiratory: (+) dry cough Musculoskeletal: (+) mid back pain, (+) burning spinal pain Neurological: (+) numbness in fingers, (+) numbness in toes Objective BP 124/72 Pulse 90 Temp 36.7 C (98.1 F) Resp 16 Wt 81.6 kg (179 lb 14.3 oz) LMP 02/17/2023 (Exact Date) SpO2 98% Physical Exam Vitals and nursing note reviewed. Constitutional: General: She is not in acute distress. Appearance: Normal appearance. She is not toxic-appearing. HENT: Right Ear: Tympanic membrane and ear canal normal. Left Ear: Tympanic membrane and ear canal normal. Nose: Congestion present. Mouth/Throat: Mouth: Mucous membranes are moist. Pharynx: No oropharyngeal exudate or posterior oropharyngeal erythema. Eyes: Conjunctiva/sclera: Conjunctivae normal. Cardiovascular: Rate and Rhythm: Normal rate and regular rhythm. Pulmonary: Effort: Pulmonary effort is normal. Breath sounds: Normal breath sounds. No wheezing, rhonchi or rales. Musculoskeletal: Thoracic back: Spasms and tenderness present. No bony tenderness. Normal range of motion. Comments: Thoracic muscle tenderness and mild spasms noted. No midline tenderness. Normal ambulation. Normal sensation upper and lower extremities. Neurological: Mental Status: She is alert. General: No acute distress. HEENT: Oropharynx clear, sinus tenderness to palpation. Back: Paraspinal muscle tightness. { 1. Acute cough (R05.1) - Persistent dry cough with new onset of yellow nasal discharge and sinus congestion; no fevers, but reports chills. - History of asthma and allergies. - Ordered chest X-ray to rule out pneumonia and determine if antibiotics are necessary. - Will call patient with results of chest X-ray. 2. Muscle spasm of back (M62.830) - Acute mid-back pain with muscle spasm noted on exam; pain has persisted since Saturday despite care management coordinator. - Start muscle relaxant; advised patient not to drive while taking medication due to potential drowsiness. - Advised follow-up with primary care physician for further management. and Recording using [employer] software for draft documentation of the visit was discussed with the patient/authorized route sales representative; all questions welcomed and answered. Patient/authorized route sales representative agreed to proceed Diagnosis and treatment plan were discussed and questions were answered to the patient's satisfaction. Pt acknowledged understanding of concepts and follow up plan. Specific signs and symptoms that would indicate the need for higher level of care were discussed in detail warranting prompt ER evaluation. History and Record Review External record(s) reviewed: prior outpatient record. Differential Diagnoses - Viral cough/URI is more likely for the following reason(s): suggested by H&P - Muscle strain/spasm is more likely for the following reason(s): suggested by H&P - Cauda equina is less likely for the following reason(s): H&P not suggestive - Fracture is less likely for the following reason(s): H&P not suggestive - Pneumonia is less likely for the following reason(s): Awaiting x-ray result Disposition The patient was discharged. Procedures documented in this encounterUniversity [facility] Hospital Discharge instructions* Discharge Instructions* Maurisio Aviles PA-C - 03/20/2025 2:03 PM EDT We recommend you follow-up with ophthalmology in the next week to reevaluate your condition. Use topical antibiotic as prescribed. Do not continue contact lens use until you are recovered and reevaluated by ophthalmology. If you develop any new or worsening symptoms contact your doctor or return to the ED, we suggest [facility] where there are ophthalmology services to consult. * Attachments The following attachments cannot be sent through Care Everywhere. * Corneal Abrasion Discharge Instructions (Khmer) documented in this [facility]04-19-2025 Emergency department Note* Maurisio Aviles PA-C - 03/20/2025 1:18 PM EDT EMERGENCY DEPARTMENT ENCOUNTER Pt Name: Martita Ricketts Birthdate 2000 Date of evaluation: 03/20/2025 ED Provider: Maurisio Aviles PA-C CHIEF COMPLAINT Chief Complaint Patient presents with Eye Problem Contact stuck HISTORY OF PRESENT ILLNESS (Location/Symptom, Timing/Onset, Context/Setting, Quality, Duration, Modifying Factors, Severity) Note limiting factors. I wore appropriate PPE for the entirety of this encounter. HPI Martita Ricketts is a 25 y.o. female who presents [...] does have glasses she can wear in theinterim. Notes tearing and irritated feeling but denies [...] Take 1 tablet by mouth daily., Starting Sat06/03/2023,Historical Med propranolol (Inderal) 20 MG tablet 20 [...] 6 o'clock position over the iris, no Seidelsign, no retained foreign bodies, lids flipped, no retained contact identified. Cardiovascular: Rate and Rhythm: Normal rate and regular rhythm. Heart sounds: Normal heart sounds. Pulmonary: Effort: Pulmonary effort is normal. Breath sounds: Normal breath sounds and air entry. No decreased breath sounds, wheezing, rhonchi orrales. Musculoskeletal: Cervical back: Normal range of motion. [...] 1-2 drop (2 drops Both Eyes Given 4/19/25 1335) fluorescein 1 MG ophthalmic strip 1 strip (1 strip Both Eyes Given 03/20/251334) I independently evaluated the patient with supervising attending physician available as needed for collaboration. In brief, Martita Ricketts is a 25 y.o. 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 Recommended follow-up with ophthalmology early next week to reassess her eye, return to ED recommended [facility] where there are ophthalmology services if things are worsening. Prescribed her ciprofloxacin ophthalmic ointment. Corneal abrasion care discharge instructions discussed. Discharged in stable improved condition with follow-up. PROCEDURES: Unless otherwise noted below, none Procedures FINAL IMPRESSION 1. Corneal abrasion due to contact lens, right DISPOSITION Discharge 03/20/2025 02:01:56 PM PATIENT REFERRED TO: [facility] Ophthalmology - [address] [id number] DISCHARGE MEDICATIONS: Discharge Medication List as of [...] are any questions or concerns please feel freeto contact the dictating provider for clarification.) Maurisio Aviles PA-C (electronically signed) Emergency Medicine Provider Maurisio Aviles PA-C 03/20/25 1653 * Indira Jensen RN - 03/20/2025 1:18 PM EDT Pt arrives to ED for contact being stuck in right eye. Pt states eye is red and painful. Pt just put contact in this morning and was unable to get it out. documented in this [facility]04-19-2025 Emergency department Triage note* Indira Jensen RN - 03/20/2025 1:18 PM EDT Pt arrives to ED for contact being stuck in right eye. Pt states eye is red and painful. Pt just put contact in this morning and was unable to get it out. [facility] [id number] Physician Emergency department Note* Maurisio Aviles PA-C - 03/20/2025 1:18 PM EDT EMERGENCY DEPARTMENT ENCOUNTER Pt Name: Martita Ricketts Birthdate 2000 Date of evaluation: 03/20/2025 ED Provider: Maurisio Aviles PA-C CHIEF COMPLAINT Chief Complaint Patient presents with Eye Problem Contact stuck HISTORY OF PRESENT ILLNESS (Location/Symptom, Timing/Onset, Context/Setting, Quality, Duration, Modifying Factors, Severity) Note limiting factors. I wore appropriate PPE for the entirety of this encounter. HPI Martita Ricketts is a 25 y.o. female who presents [...] does have glasses she can wear in theinterim. Notes tearing and irritated feeling but denies [...] Take 1 tablet by mouth daily., Starting Sat06/03/2023,Historical Med propranolol (Inderal) 20 MG tablet 20 [...] activity: Yes Partners: Male Social Drivers of 1DayLater Intimate Partner Violence: Not At Risk (08/19/2023) [...] 6 o'clock position over the iris, no Seidelsign, no retained foreign bodies, lids flipped, no retained contact identified. Cardiovascular: Rate and Rhythm: Normal rate and regular rhythm. Heart sounds: Normal heart sounds. Pulmonary: Effort: Pulmonary effort is normal. Breath sounds: Normal breath sounds and air entry. No decreased breath sounds, wheezing, rhonchi orrales. Musculoskeletal: Cervical back: Normal range of motion. [...] as needed for collaboration. In brief, Martita Ricketts is a 25 y.o. 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 Recommended follow-up with ophthalmology early next week to reassess her eye, return to ED recommended [facility] where there are ophthalmology services if things are worsening. Prescribed her ciprofloxacin ophthalmic ointment. Corneal abrasion care discharge instructions discussed. Discharged in stable improved condition with follow-up. PROCEDURES: Unless otherwise noted below, none Procedures FINAL IMPRESSION 1. Corneal abrasion due to contact lens, right DISPOSITION Discharge 03/20/2025 02:01:56 PM PATIENT REFERRED TO: [facility] Ophthalmology - [address] [phone] DISCHARGE MEDICATIONS: Discharge Medication List as [...] are any questions or concerns please feel freeto contact the dictating provider for clarification.) Maurisio Aviles PA-C (electronically signed) Emergency Medicine Provider Maurisio Aviles PA-C 03/20/25 1653 [facility] [id number] History of Present illness Narrative* Lucy Conte MD - 09/02/2024 8:35 AM EDT VIRTUAL VISIT NEW PATIENT NAME: Martita Ricketts CLINIC NO: [id number] DATE: 09/02/2024 REASON FOR VISIT Martita Ricketts 2000 has requested a video telemedicine initial consultation at the request of Self. Martita Ricketts verbalized informed consent to proceed with the video telemedicine initial consultation. Martita Ricketts was informed that the details of this video visit would be recorded as part of their electronic medical record. My recommendations will be conveyed to the consulting provider by way of shared electronic medical record, fax, or U.S. Mail. I have communicated my name and active licensure. The patient's identity and physical location wereverified at the time of this visit. Either the patient or their legal route sales representative has been informed of the risks and benefits of -- and alternatives to -- treatment through a remote evaluation andconsents to proceed with the evaluation remotely. Patient location at time of call: [place] Callback number: [phone] Additional encounter participants and relationship: none No chief complaint on file. PRESENTING COMPLAINT Martita Ricketts is a 24 year old female with [...] Take by mouth 3 times a WEEK. Tskqduetetyfbpy-Aekteyghc-HX (BROMFED DM) 2-30-10 mg/5 mL syrup Take 5 mL by mouth four times dailyas needed. 120 mL 0 ibuprofen (MOTRIN) 600 mg tablet Take 1 tablet by mouth every 6 hours as needed for Pain. 28 tablet0 meloxicam (MOBIC) 15 mg tablet Take 1 [...] application to affected area twice daily. (Patient nottaking: Reported on 11/04/2018 ) 120 mL 0 [...] with more than 50% of the total rlsu-gq-gjpa time of the visit in counseling / coordination of care. I have confirmed and edited as necessary, the PFSH and ROS obtained by others. I will communicate my recommendations and prescriptions to the patient's primary care provider. Unrelated to E/M, telemedicine, or virtual visit service provided within previous 7 days. No E/M service or procedure anticipated within next 24 hours. Lucy Conte MD, MD September 02, 2024 8:37 AM Answers submitted [...] floating with oil: No documented in this encounterUniversity Hospitals [facility]09-[facility] Hospital Discharge instructions Patient Education 08/24/2024 16:18:12 [...] In it, write down what you were doing,feeling, or eating in the hours before each headache. Show this to your healthcare provider to helpfind the cause of your headaches. If stress seems to be a trigger for your headaches, figure out what is causing stress in your life.Learn new ways to handle your stress. Ideas [...] you can have medicine to take at homethe next time you get a bad headache. [...] of your face Difficulty talking or seeing [id number] [employer]. [address] [place] [address]. All rights reserved. This information is not intended as a substitute for professional medical care. Always follow yourhealthcare professional's instructions. Follow Up Care 08/24/2024 15:55:21 With:[facility] Address: [address] [place] [phone] When:2-4 days [facility] 09-23-2024 Note Discharge Instructions Thank you for allowing [facility] to assist you with your healthcare needs. The following is importantdischarge information regarding your hospital visit. What to Do Next Instructions from Your Care Team No qualifying data available. Post Acute Orders No qualifying data available. You Need to Schedule the Following Appointments Follow Up with [facility] When:Within 2-4 days Where:[address] [place] [address] [phone] Allergies penicillin Medications Please ask your primary doctor or pharmacist before taking any other medication not listed, including over the counter drugs, herbal medications, vitamins and or supplements as they may interact withyour home medications. What How Much When Instructions [...] In it, write down what you were doing,feeling, or eating in the hours before each headache. Show this to your healthcare provider to helpfind the cause of your headaches. If stress seems to be a trigger for your headaches, figure out what is causing stress in your life.Learn new ways to handle your stress. Ideas [...] you can have medicine to take at homethe next time you get a bad headache. [...] of your face Difficulty talking or seeing [phone] [employer]. [address] [place] [address]. All rights reserved. This information is not intended as a substitute for professional medical care. Always follow yourhealthcare professional's instructions. Additional Information VACCINATE! IT SAVES LIVES! Members of the community who have not yet received the COVID-19 vaccine and would like to receive it can visit one of [facility] vaccine clinics. There are many vaccine clinic locations within the [facility]. For locations and available times, please visit www.gettheshot.[email or web address].[place].gov/. It is important to note that some COVID mobile vaccine clinics are held outdoors and may be canceled in rainy or stormy conditions. To learn more about pediatric vaccinations (ages 5-11), we invite you to visit the [facility] webpage. https://www.[facility].org/pages/5981-Zoqhm-Iucpmkrnuee-Upilfvnwng-Gvhqi-Ylt stions.htmlTo learn more about the COVID-19 vaccine, we invite you to visit the CDC website for a list of frequently asked questions. https://www.cdc.gov/coronavirus/2019-ncov/vaccines/faq.html [facility] Patient Portal Access Instructions: Stay connected with your healthcare team and access your personal medical information anytime with the [facility] Patient Portal. If you would like a full copy of your medical records please contact the [facility] Medical Records Department Saturday through Saturday between 8a.m. and 4:30p.m. Please follow the directions below to access the portal: 1.Access the email account you provided upon registration to the [facility].2.Look for an invitation email from [facility].3.Open the email and access the invitation link: Accept Invitation to [facility]4.Fill in the required jernigan to create your [...] you will allow to register on the [facility] Patient Portal for access to your information. You can also access the [employer] Patient Portal on the [employer]. Simply click on Health Records under Smove and then click on the [employer] logo. HOW TO SAFELY DISPOSE OF PRESCRIPTION MEDICATIONS Please use one of the following methods to safely dispose of your unused medications. 1.Use a drug disposal kit: the drug disposal pouch allows you to safely discard your old and unuseddrugs. Ask your nurse to give you one when you are discharged.2.Visit a local take-back location: Many local pharmacies and police departments have programs that collect old and unwanted prescriptiondrugs. Call your local pharmacy or go to http://bit.Connect[place].com/3S8Ol7x to find one close to you.3.Make use of household items: Use cat litter or old coffee grounds to dispose medications if other options arenot available. Mix your drugs with these household products, seal them in an airtight container andthrow it into the garbage. Call [facility]: [phone] to be sure your drugs can be [...] drowsiness, such as benzodiazepines, also known as benzos,including diazepam and alprazolam, muscle relaxants or sleep aids. Never sell or share prescriptionopioids. This is illegal. Store opioids in a secure place and out of reach of others (including children, family, friends and visitors). The last page(s) of this document has been signed and retained as a CHART COPY Signatures Patient Education Materials Headache, Migraine, Classic Medication Leaflets My discharge plan and instructions have been reviewed and explained to me and I,MARTITA RICKETTS understand my current condition and have read and understand these discharge instructions. I have received a written copy of the plan/instructions. If I have questions, I am aware that I should contactmy doctor. Patient/Business Office Associate Signature: Date/Time: Relationship to Patient: Witness Name/Signature: Date/Time: [facility]07-23-2024 Hospital Discharge instructions Patient Education 06/23/2024 15:31:22 Myalgias Myalgias Myalgias are another word for muscle aches and soreness. This is a symptom, not a disease. Myalgiascan have many causes. A cold, the flu, [...] often occur in addition to muscle pain andsoreness. Myalgias most often go away on their [...] action. To control pain, take prescription or mvta-nax-fdzsotm medicines as directed. Unless told not to, [...] Severe headache, neck pain, drowsiness, or confusion [phone] [employer]. [address] [place] [address]. All rights reserved. This information is not intended as a substitute for professional medical care. Always follow yourhealthcare professional's instructions. Follow Up Care 06/23/2024 14:06:42 With:[facility] Address: [address] [place] [id number] [phone] When:2-4 days [facility] 07-23-2024 Note Discharge Instructions Thank you for allowing [facility] to assist you with your healthcare needs. The following is importantdischarge information regarding your hospital visit. Diagnosis from Today's Visit Myalgia What to Do Next Instructions from Your Care Team No qualifying data available. Post Acute Orders No qualifying data available. You Need to Schedule the Following Appointments Follow Up with [facility] When:Within 2-4 days Where:[address] [place] [address] [phone] Allergies penicillin Medications Please ask your primary doctor or pharmacist before taking any other medication not listed, including over the counter drugs, herbal medications, vitamins and or supplements as they may interact withyour home medications. What How Much When Instructions [...] This is a symptom, not a disease. Myalgiascan have many causes. A cold, the flu, [...] often occur in addition to muscle pain andsoreness. Myalgias most often go away on their [...] action. To control pain, take prescription or qmxn-zzr-mkoesbt medicines as directed. Unless told not to, [...] Severe headache, neck pain, drowsiness, or confusion [phone] [employer]. [address] [place] [address], [place] [address]. All rights reserved. This information is not intended as a substitute for professional medical care. Always follow yourhealthcare professional's instructions. Additional Information VACCINATE! IT SAVES LIVES! Members of the community who have not yet received the COVID-19 vaccine and would like to receive it can visit one of [facility] vaccine clinics. There are many vaccine clinic locations within the [facility]. For locations and available times, please visit www.[email or web address].[place].gov/. It is important to note that some COVID mobile vaccine clinics are held outdoors and may be canceled in rainy or stormy conditions. To learn more about pediatric vaccinations (ages 5-11), we invite you to visit the [facility] webpage. https://www.[facility].org/pages/1505-Cbeqs-Sivvkgnflcr-Vctiikzqao-Aoavq-Sys stions.htmlTo learn more about the COVID-19 vaccine, we invite you to visit the CDC website for a list of frequently asked questions. https://www.cdc.gov/coronavirus/2019-ncov/vaccines/faq.html [facility] Patient [facility] Access Instructions: Stay connected with your healthcare team and access your personal medical information anytime with the [facility] Patient Portal. If you would like a full copy of your medical records please contact the [facility] Medical Records Department Saturday through Saturday between 8a.m. and 4:30p.m. Please follow the directions below to access the portal: 1.Access the email account you provided upon registration to the hospital.2.Look for an invitation email from [facility].3.Open the email and access the invitation link: Accept Invitation to [employer]4.Fill in the required jernigan to create your account. Sign into [email or web address] with your username and password that you [...] you will allow to register on the [employer] Patient Portal for access to your information. You can also access the [employer] Patient Portal on the [employer]. Simply click on Health Records under Smove and then click on the [employer] logo. HOW TO SAFELY DISPOSE OF PRESCRIPTION MEDICATIONS Please use one of the following methods to safely dispose of your unused medications. 1.Use a drug disposal kit: the drug disposal pouch allows you to safely discard your old and unuseddrugs. Ask your nurse to give you one when you are discharged.2.Visit a local take-back location: Many local pharmacies and police departments have programs that collect old and unwanted prescriptiondrugs. Call your local pharmacy or go to http://[employer].Connect[place].com/8Z1Ph0p to find one close to you.3.Make use of household items: Use cat litter or old coffee grounds to dispose medications if other options arenot available. Mix your drugs with these household products, seal them in an airtight container andthrow it into the garbage. Call [facility]: [phone] to be sure your drugs can be [...] drowsiness, such as benzodiazepines, also known as benzos,including diazepam and alprazolam, muscle relaxants or sleep aids. Never sell or share prescriptionopioids. This is illegal. Store opioids in a secure place and out of reach of others (including children, family, friends and visitors). The last page(s) of this document has been signed and retained as a CHART COPY Signatures Patient Education Materials Myalgias Medication Leaflets My discharge plan and instructions have been reviewed and explained to me and I,MARTITA RICKETTS understand my current condition and have read and understand these discharge instructions. I have received a written copy of the plan/instructions. If I have questions, I am aware that I should contactmy doctor. Patient/Business Office Associate Signature: Date/Time: Relationship to Patient: Witness Name/Signature: Date/Time: [facility]07-11-2024 History of Present illness Narrative * Mohini Rees RT(R) - 06/11/2024 12:10 PM EDT Radiology Service Progress Note PATIENT NAME: Martita Ricketts DATE OF SERVICE: June 11, 2024 TIME: 12:24 PM PATIENT IDENTITY VERIFICATION COMPLETED USING TWO (2) IDENTIFIERS: Name and Date of confirmedby patient verbally. FALL SCREENING: Has the patient had 2 falls in the last year or 1 fall with injury or currently using an Ambulatory Assistive Device (Walker, Cane, Wheelchair, Crutches, etc.)? No PATIENT GENDER DATA: Female. status: : No status: NO. PATIENT RELEVANT IMPLANT DATA REVIEWED: Yes PATIENT PRESENTS WITH AN IMPLANTABLE OR ATTACHED HAND WOVEN CARPET AND RUG MENDER: No RADIOLOGY DEPARTMENT: General X-ray: Exam(s) Completed: Upper Extremity X- Ray(s): Shoulder, AP / TRUE AP / AXILLARY right PERIPHERAL IV DATA: Not applicable SIGNED BY: Mohini Rees, RT(R) June 11, 2024 12:24 PM documented in this encounterUniversity [facility] History of Present illness Narrative* David Carreon APRN.ACCOUNTING MANAGER CONTROLLER - 06/11/2024 11:57 AM EDT Subjective HPI Nontoxic-appearing female patient presents to [...] like activity, knocked out. [facility] Left [facility] sprain 05/12 Menarche 8-2010 Age [...] tablet by mouth once daily. (Patient not taking:Reported on 03/05/2023) azithromycin (ZITHROMAX) 250 mg tablet [...] a WEEK. predniSONE (DELTASONE) 20 mg tablet Ksgzfjdssbwrgin-Atjypmysq-JK (BROMFED DM) 2-30-10 mg/5 mL syrup Take 5 mL by mouth four times dailyas needed. (Patient not taking: Reported on 11/04/2018 [...] application to affected area twice daily. (Patient nottaking: Reported on 11/04/2018 ) Lancets (FREESTYLE LANCETS) [...] of care. This note was generated using [employer] Monitoring software. It may contain errors in wording, punctuation, or spelling. 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 Pt calling to see if can schedule earlier appointment. Pt was seen at [facility] ED on 05/09/24 for pelvic pain, states US completed and notes IUD inincorrect position. 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 Pt calling to see if can schedule earlier appointment. Pt was seen at [facility] ED on 05/09/24 for pelvic pain, states US completed and notes IUD inincorrect position. Pt states I have an appointment [...] 1 hour Protocols used: Pelvic Pain - Jlscue-PQYXQ-CN documented in this encounterSNorwalk Memorial [id number] Note. MICRO - Microbiology PROCEDURE: Affirm Pathogens DNA [...] Locations *1: This test was performed at: [facility], [address] [place] [address], [id number] , [facility] ([place])05-09-2024 Hospital Discharge instructions Patient Education 05/09/2024 01:18:51 [...] manage your pain. These can include: Taking oppi-eir-qwaxyut pain medicine. Stronger pain medicine may also [...] Abnormal vaginal bleeding (especially bleeding after menopause) [phone] [employer] [place] [address]. All rights reserved. This information is not intended as a substitute for professional medical care. Always follow yourhealthcare professional's instructions. Follow Up Care 05/09/2024 00:58:58 With:Bunny Banuelos Pt. Refferral [phone] Address:Unknown When:2-4 days [facility] 06-08-2024 Note Discharge Instructions Thank you for allowing [facility] to assist you with your healthcare needs. The following is importantdischarge information regarding your hospital visit. Diagnosis from Today's Visit Pain pelvic What to Do Next Instructions from Your Care Team No qualifying data available. Post Acute Orders No qualifying data available. You Need to Schedule the Following Appointments Follow Up with Call [facility] New Pt. Refferral [phone] When:Within 2-4 days Allergies penicillin Medications Please ask your primary doctor or pharmacist before taking any other medication not listed, including over the counter drugs, herbal medications, vitamins and or supplements as they may interact withyour home medications. What How Much When Why Instructions Last Dose New acetaminophen-hydrocodone ([place] 325- 5 mg oral tablet) 1 tab(s) [...] Leaflets acetaminophen and hydrocodone (a SEET a MIN oh fen and carisa PAYNE done) Verdrocet What is [...] where to locate a drug take-back disposal program.If there is no take-back program, flush the unused medicine down the toilet. What happens if I miss a dose? Since this medicine is used for pain, you are not likely to miss a dose. Skip any missed dose if itis almost time for your next dose. Do [...] health department. Make sure any person caring foryou knows where you keep naloxone and how to use it. What should I avoid while taking acetaminophen and hydrocodone? Avoid driving or operating machinery until you know how this medicine will affect you. Dizziness ordrowsiness can cause falls, accidents, or severe injuries. [...] if you have slow breathing with long pauses,blue colored lips, or if you are hard to wake up. In rare cases, acetaminophen may cause a severe skin reaction that can be fatal. This could occur even if you have taken acetaminophen in the past and had no reaction. Stop taking this medicine and call your doctor right away if you have skin redness or a rash that spreads and causes blistering andpeeling. Call your doctor at once if you [...] may report side effects to FDA at 1-029-HQH-3886. What other drugs will affect acetaminophen and [...] affect acetaminophen and hydrocodone, including prescription and yyuy-vqq-fsmnnho medicines, vitamins, and herbal products. Not all [...] to ensure that the information provided by [employer]. ('[employer]') is accurate, up-to-date, and complete, but no guarantee is made to that effect. Drug information contained herein may be time sensitive. [employer] information has been compiled for use by healthcare practitioners and consumers in the [place] and therefore [employer] does not warrant that uses outside of the [place] are appropriate, unless specifically indicated otherwise. [employer] drug information does not endorse drugs, diagnose patients or recommend therapy. [employer] drug information isan informational resource designed to assist licensed healthcare practitioners in caring for their p atients and/or to serve consumers viewing this service as a supplement to, and not a substitute for, the expertise, skill, knowledge and judgment of healthcare practitioners. The absence of a warningfor a given drug or drug combination in no way should be construed to indicate that the drug or drug combination is safe, effective or appropriate for any given patient. [employer] does not assume any responsibility for any aspect of healthcare administered with the aid of information [employer] provides. The information contained herein is not intended to cover all possible uses, directions, precautions, warnings, drug interactions, allergic reactions, or adverse effects. If you have questions about the drugs you are taking, check with your doctor, nurse or pharmacist. Copyright 5235-9702 [employer]. Version: 19.02. Revision Date: 03/10/2024. Education Materials [...] manage your pain. These can include: Taking gpoe-hhp-rqftgnu pain medicine. Stronger pain medicine may also [...] Abnormal vaginal bleeding (especially bleeding after menopause) 7845-7226 [employer]. [address] [place] [address]. All rights reserved. This information is not intended as a substitute for professional medical care. Always follow yourhealthcare professional's instructions. Additional Information VACCINATE! IT SAVES LIVES! Members of the community who have not yet received the COVID-19 vaccine and would like to receive it can visit one of [facility] vaccine clinics. There are many vaccine clinic locations within the [facility]. For locations and available times, please visit www.gettheshot.[email or web address].[place].gov/. It is important to note that some COVID mobile vaccine clinics are held outdoors and may be canceled in rainy or stormy conditions. To learn more about pediatric vaccinations (ages 5-11), we invite you to visit the [facility] webpage. https://www.[facility].org/pages/8595-Xhtuz-Fzgzhjuidmz-Pdvqjvwrjd-Naclt-Dny stions.htmlTo learn more about the COVID-19 vaccine, we invite you to visit the CDC website for a list of frequently asked questions. https://www.cdc.gov/coronavirus/2019-ncov/vaccines/faq.html [facility] Patient Portal Access Instructions: Stay connected with your healthcare team and access your personal medical information anytime with the [employer] [employer] Patient Portal. If you would like a full copy of your medical records please contact the [facility] Medical Records Department Saturday through Saturday between 8a.m. and 4:30p.m. Please follow the directions below to access the portal: 1.Access the email account you provided upon registration to the [facility].2.Look for an invitation email from [facility].3.Open the email and access the invitation link: [facility]4.Fill in the required jernigan to create your account. Sign into www.[employer] with your username and password that you [...] you will allow to register on the [facility] Patient Portal for access to your information. You can also access the [employer] Patient Portal on the [employer] ced. Simply click on Health Records under Smove and then click on the [employer] logo. HOW TO SAFELY DISPOSE OF PRESCRIPTION MEDICATIONS Please use one of the following methods to safely dispose of your unused medications. 1.Use a drug disposal kit: the drug disposal pouch allows you to safely discard your old and unuseddrugs. Ask your nurse to give you one when you are discharged.2.Visit a local take-back location: Many local pharmacies and police departments have programs that collect old and unwanted prescriptiondrugs. Call your local pharmacy or go to http://bit.Connect[place].com/2W3Aj9z to find one close to you.3.Make use of household items: Use cat litter or old coffee grounds to dispose medications if other options arenot available. Mix your drugs with these household products, seal them in an airtight container andthrow it into the garbage. Call [facility]: [phone] to be sure your drugs can be [...] drowsiness, such as benzodiazepines, also known as benzos,including diazepam and alprazolam, muscle relaxants or sleep aids. Never sell or share prescriptionopioids. This is illegal. Store opioids in a secure place and out of reach of others (including children, family, friends and visitors). The last page(s) of this document has been signed and retained as a CHART COPY Signatures Patient Education Materials Pelvic Pain, Unknown Cause Medication Leaflets acetaminophen and hydrocodone My discharge plan and instructions have been reviewed and explained to me and I,MARTITA RICKETTS understand my current condition and have read and understand these discharge instructions. I have received a written copy of the plan/instructions. If I have questions, I am aware that I should contactmy doctor. Patient/Business Office Associate Signature: Date/Time: Relationship to Patient: Witness Name/Signature: Date/Time: [facility]06-07-2024 Hospital Discharge instructions Patient Education 05/08/2024 16:14:14 [...] them exactly as directed. Also, be sure tocomplete all of the medicine, even if your [...] as a rash, joint pain, or sores. [phone] [employer]. [address] [place] [address]. All rights reserved. This information is not intended as a substitute for professional medical care. Always follow yourhealthcare professional's instructions. Follow Up Care 05/08/2024 14:49:15 With:[facility] Address: [address] [place] [phone] When:2-4 days [facility] 06-07-2024 Note ORIGINAL EXAMINATION: TRANSVAGINAL AND TRANSABDOMINAL PELVIC [...] Sign Date: 05/08/2024 5:23:32 PM Ordering Provider: [facility]06-07-2024 Note Discharge Instructions Thank you for allowing [facility] to assist you with your healthcare needs. The following is importantdischarge information regarding your hospital visit. Diagnosis from Today's Visit Pelvic pain What to Do Next Instructions from Your Care Team No qualifying data available. Post Acute Orders No qualifying data available. You Need to Schedule the Following Appointments Follow Up with [facility] CTR When:Within 2-4 days Where:[address] [place] [phone] Allergies penicillin Medications Please ask your primary doctor or pharmacist before taking any other medication not listed, including over the counter drugs, herbal medications, vitamins and or supplements as they may interact withyour home medications. What How Much When Instructions [...] partner may also need to take metronidazole soyou don't become reinfected. Metronidazole is usually given [...] (more likely to occur while taking metronidazole supervisor long goods): numbness, tingling, or burning pain in your [...] may report side effects to FDA at [phone]. What other drugs will affect metronidazole? Sometimes [...] other drugs may affect metronidazole. This includes prescriptionand yhlb-jbv-cypqfpb medicines, vitamins, and herbal products. Not all [...] to ensure that the information provided by [employer]') is accurate, up-to-date, and complete, but no guarantee is made to that effect. Drug information contained herein may be time sensitive. [employer] information has been compiled for use by healthcare practitioners and consumers in the [place] and therefore [employer] does not warrant that uses outside of the [place] are appropriate, unless specifically indicated otherwise. [employer] drug information does not endorse drugs, diagnose patients or recommend therapy. [employer] drug information isan informational resource designed to assist licensed healthcare practitioners in caring for their p atients and/or to serve consumers viewing this service as a supplement to, and not a substitute for, the expertise, skill, knowledge and judgment of healthcare practitioners. The absence of a warningfor a given drug or drug combination in no way should be construed to indicate that the drug or drug combination is safe, effective or appropriate for any given patient. [employer] does not assume any responsibility for any aspect of healthcare administered with the aid of information [employer] provides. The information contained herein is not intended to cover all possible uses, directions, precautions, warnings, drug interactions, allergic reactions, or adverse effects. If you have questions about the drugs you are taking, check with your doctor, nurse or pharmacist. Copyright 3574-3451 [facility] [employer]. Version: 18.. Revision Date: 07/18/2023. Education Materials [...] them exactly as directed. Also, be sure tocomplete all of the medicine, even if your [...] as a rash, joint pain, or sores. 2432-4769 [employer]. [address] [place] [address]. All rights reserved. This information is not intended as a substitute for professional medical care. Always follow yourhealthcare professional's instructions. Additional Information VACCINATE! IT SAVES LIVES! Members of the community who have not yet received the COVID-19 vaccine and would like to receive it can visit one of [facility] vaccine clinics. There are many vaccine clinic locations within the [facility]. For locations and available times, please visit www.gettheshot.coronavirus.[place].gov/. It is important to note that some COVID mobile vaccine clinics are held outdoors and may be canceled in rainy or stormy conditions. To learn more about pediatric vaccinations (ages 5-11), we invite you to visit the [facility] webpage. https://www.[facility].org/pages/6297-Ibrui-Zsmulqqkpfk-Jrcdukxaer-Rcbkk-Jtg stions.htmlTo learn more about the COVID-19 vaccine, we invite you to visit the CDC website for a list of frequently asked questions. https://www.cdc.gov/coronavirus/2019-ncov/vaccines/faq.html [facility] Patient Portal Access Instructions: Stay connected with your healthcare team and access your personal medical information anytime with the [facility] [employer] Patient Portal. If you would like a full copy of your medical records please contact the [facility] Medical Records Department Saturday through Saturday between 8a.m. and 4:30p.m. Please follow the directions below to access the portal: 1.Access the email account you provided upon registration to [facility].2.Look for an invitation email from [facility].3.Open the email and access the invitation link: Accept Invitation to [facility]4.Fill in the required jernigan to create your account. Sign into [email or web address] with your username and password that you [...] you will allow to register on the [facility] Patient Portal for access to your information. You can also access the [facility] Patient Portal on the [employer] ced. Simply click on Health Records under [employer] and then click on the [employer] logo. HOW TO SAFELY DISPOSE OF PRESCRIPTION MEDICATIONS Please use one of the following methods to safely dispose of your unused medications. 1.Use a drug disposal kit: the drug disposal pouch allows you to safely discard your old and unuseddrugs. Ask your nurse to give you one when you are discharged.2.Visit a local take-back location: Many local pharmacies and police departments have programs that collect old and unwanted prescriptiondrugs. Call your local pharmacy or go to http://[employer].ConnectNig[place].com/6S4Eo7p to find one close to you.3.Make use of household items: Use cat litter or old coffee grounds to dispose medications if other options arenot available. Mix your drugs with these household products, seal them in an airtight container andthrow it into the garbage. Call [facility]: [phone] to be sure your drugs can be [...] drowsiness, such as benzodiazepines, also known as benzos,including diazepam and alprazolam, muscle relaxants or sleep aids. Never sell or share prescriptionopioids. This is illegal. Store opioids in a secure place and out of reach of others (including children, family, friends and visitors). The last page(s) of this document has been signed and retained as a CHART COPY Signatures Patient Education Materials Bacterial Vaginosis (BV) Medication Leaflets metronidazole (oral/injection) My discharge plan and instructions have been reviewed and explained to me and I,MARTITA RICKETTS understand my current condition and have read and understand these discharge instructions. I have received a written copy of the plan/instructions. If I have questions, I am aware that I should contactmy doctor. Patient/Business Office Associate Signature: Date/Time: Relationship to Patient: Witness Name/Signature: Date/Time: [facility]06-07-2024 Evaluation + Plan note Diagnostic Tests Pending * Chlamydia trachomatis PCR 05/08/24 * N. gonorrhoeae PCR 05/08/24 * Affirm Pathogens DNA Direct Probe 05/08/24 [facility] 05-17-2024 Hospital Discharge instructions Patient Education 04/16/2024 22:41:02 Muscle Strain, Extremity Muscle Strain in the Extremities A muscle strain is a stretching and tearing of muscle fibers. This causes pain, especially when youmove that muscle. There may also be some swelling and bruising. Home care Keep the hurt area raised above heart level to reduce pain and swelling. This is especially important during the first 48 hours. Apply an ice pack over the injured area for 15 to 20 minutes every 3 to 6 hours. You should do thisfor the first 24 to 48 hours. You [...] (warm shower or warm bath) for 15 to20 minutes several times a day, or alternate ice and heat. You may use hlkh-ytw-bvyhrij pain medicine to control pain, unless another medicine was prescribed.If you have chronic liver or kidney disease or ever had a stomach ulcer or gastrointestinal bleeding, talk with your healthcare provider before using these medicines. For leg strains: If crutches have been recommended, don t put full weight on the hurt leg until youcan do so without pain. You can return [...] numb, or tingly Pain or swelling increases 7906-4633 [employer]. [address] [place] [address], [place] [address]. All rights reserved. This information is not intended as a substitute for professional medical care. Always follow yourhealthcare professional's instructions. 04/16/2024 22:40:39 Muscle Strain, Extremity Muscle Strain in the Extremities A muscle strain is a stretching and tearing of muscle fibers. This causes pain, especially when youmove that muscle. There may also be some swelling and bruising. Home care Keep the hurt area raised above heart level to reduce pain and swelling. This is especially important during the first 48 hours. Apply an ice pack over the injured area for 15 to 20 minutes every 3 to 6 hours. You should do thisfor the first 24 to 48 hours. You [...] (warm shower or warm bath) for 15 to20 minutes several times a day, or alternate ice and heat. You may use hgkh-nwd-amhoaqt pain medicine to control pain, unless another medicine was prescribed.If you have chronic liver or kidney disease or ever had a stomach ulcer or gastrointestinal bleeding, talk with your healthcare provider before using these medicines. For leg strains: If crutches have been recommended, don t put full weight on the hurt leg until youcan do so without pain. You can return [...] numb, or tingly Pain or swelling increases 7588-3023 [employer]. [address] [place] [address]. All rights reserved. This information is not intended as a substitute for professional medical care. Always follow yourhealthcare professional's instructions. Follow Up Care 04/16/2024 16:20:20 With:Call Physician Referral Address:Unknown When:2-4 days [facility] 05-16-2024 Emergency department Discharge summary Discharge Instructions Thank you for allowing [facility] to assist you with your healthcare needs. The following is importantdischarge information regarding your hospital visit. What to Do Next Instructions from Your Care Team Discharge Home Equipment - Ordered -- Crutches, 99 month(s), 04/16/24 22:40:00 EDT Post Acute Orders No qualifying data available. You Need to Schedule the Following Appointments Follow Up with Call Physician Referral When: When:Within 2-4 days Allergies penicillin Medications Please ask your primary doctor or pharmacist before taking any other medication not listed, including over the counter drugs, herbal medications, vitamins and or supplements as they may interact withyour home medications. What How Much When Instructions [...] muscle fibers. This causes pain, especially when youmove that muscle. There may also be some swelling and bruising. Home care Keep the hurt area raised above heart level to reduce pain and swelling. This is especially important during the first 48 hours. Apply an ice pack over the injured area for 15 to 20 minutes every 3 to 6 hours. You should do thisfor the first 24 to 48 hours. You [...] (warm shower or warm bath) for 15 to20 minutes several times a day, or alternate ice and heat. You may use jecu-kyb-vvutoys pain medicine to control pain, unless another medicine was prescribed.If you have chronic liver or kidney disease or ever had a stomach ulcer or gastrointestinal bleeding, talk with your healthcare provider before using these medicines. For leg strains: If crutches have been recommended, don t put full weight on the hurt leg until youcan do so without pain. You can return [...] numb, or tingly Pain or swelling increases [phone] [employer]. [address] [place] [address], [place] [id number]. All rights reserved. This information is not intended as a substitute for professional medical care. Always follow yourhealthcare professional's instructions. Muscle Strain in the Extremities A muscle strain is a stretching and tearing of muscle fibers. This causes pain, especially when youmove that muscle. There may also be some swelling and bruising. Home care Keep the hurt area raised above heart level to reduce pain and swelling. This is especially important during the first 48 hours. Apply an ice pack over the injured area for 15 to 20 minutes every 3 to 6 hours. You should do thisfor the first 24 to 48 hours. You [...] (warm shower or warm bath) for 15 to20 minutes several times a day, or alternate ice and heat. You may use uhzb-pnk-nkzftef pain medicine to control pain, unless another medicine was prescribed.If you have chronic liver or kidney disease or ever had a stomach ulcer or gastrointestinal bleeding, talk with your healthcare provider before using these medicines. For leg strains: If crutches have been recommended, don t put full weight on the hurt leg until youcan do so without pain. You can return [...] numb, or tingly Pain or swelling increases 8549-5716 [employer]. [address] [place] [address]. All rights reserved. This information is not intended as a substitute for professional medical care. Always follow yourhealthcare professional's instructions. Additional Information VACCINATE! IT SAVES LIVES! Members of the community who have not yet received the COVID-19 vaccine and would like to receive it can visit one of [facility] vaccine clinics. There are many vaccine clinic locations within the [facility]. For locations and available times, please visit www.gettheshot.coronavirus.[place].gov/. It is important to note that some COVID mobile vaccine clinics are held outdoors and may be canceled in rainy or stormy conditions. To learn more about pediatric vaccinations (ages 5-11), we invite you to visit the [facility] webpage. https://www.[employer].org/pages/1368-Gtaia-Euqqkkvbjpb-Caqikopaod-Mpuis-Eeg stions.htmlTo learn more about the COVID-19 vaccine, we invite you to visit the CDC website for a list of frequently asked questions. https://www.cdc.gov/coronavirus/2019-ncov/vaccines/faq.html [facility] Patient [facility] Access Instructions: Stay connected with your healthcare team and access your personal medical information anytime with the [employer] [employer] Patient Portal. If you would like a full copy of your medical records please contact the [facility] Medical Records Department Saturday through Saturday between 8a.m. and 4:30p.m. Please follow the directions below to access the portal: 1.Access the email account you provided upon registration to [facility].2.Look for an invitation email from [facility].3.Open the email and access the invitation link: Accept Invitation to [facility]4.Fill in the required jernigan to create your account. Sign into www.[employer] with your username and password that you [...] you will allow to register on the [facility] Patient Portal for access to your information. You can also access the [facility] Patient Portal on the [employer]. Simply click on Health Records under [employer] and then click on the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 cold forceps in the gastric antrum was performed for Helicobacter pylori testing. Will route to SALES DEVELOPMENT REPRESENTATIVE as FYI [facility] HospitalYmlpcp10-16-8864 Telephone encounter Note* Telephone Encounter - Gisselle Marr RN - 08/20/2023 12:21 PM EDT S: Patient spoke with CAC nurse regarding [...] understands care advice and will go to [place] ED if pain gets worse. No further needs at this time. Patient instructed to call back with new or worsening symptoms. Reason for Disposition SEVERE abdominal pain (e.g., excruciating) Protocols used: Abdominal Pain - [id number] [facility] HospitalBmbmvn17-11-0710 History and physical note* Ciaran Fritz MD - 08/19/2023 8:34 AM EDT Images from the original note were not included. CIARAN FRITZ MD , FACS, [facility] MINIMALLY INVASIVE & METABOLIC / BARIATRIC SURGERY [facility] HISTORY AND PHYSICAL 08/19/2023 PATIENT: Martita Ricktets DATE OF : 2000 HISTORY OF PRESENT [...] % infusion 50 mL/hr IntraVENous Continuous Jeremy Helton APRN - ACCOUNTING MANAGER CONTROLLER Prior to Admission medications Medication Sig Start [...] Housing Stability: Not on file Family History: @[facility]@ REVIEW OF SYSTEMS: CONSTITUTIONAL: Negative for fatigue, [...] understanding and willingness to proceed with plan. [facility] [id number] History and physical note* Ciaran Fritz MD - 08/19/2023 8:34 AM EDT Images from the original note were not included. CIARAN FRITZ MD , FACS, [facility] METABOLIC / BARIATRIC SURGERY [facility] HISTORY AND PHYSICAL 08/19/2023 PATIENT: Martita Ricketts DATE OF : 2000 HISTORY OF PRESENT [...] % infusion 50 mL/hr IntraVENous Continuous Jeremy Helton APRN - ACCOUNTING MANAGER CONTROLLER Prior to Admission medications Medication Sig Start [...] Housing Stability: Not on file Family History: @[facility]@ REVIEW OF SYSTEMS: CONSTITUTIONAL: Negative for fatigue, [...] to proceed with plan. documented in this [facility]09-18-2023 Note* Op Note - Ciaran Fritz MD - 08/19/2023 8:30 AM EDT [facility] Name: Martita Ricketts Procedure Date: 08/19/2023 8:30 AM Gender: Female Date of : 2000 Age: 23 Admit Type: Outpatient Note Status: Finalized Endoscopist: Ciaran Fritz MD, [id number] Procedure: Upper GI endoscopy Indications: Esophageal reflux, [...] immediate complications. Procedure Code(s): --- Professional --- 50880, Esophagogastroduodenoscopy, flexible, transoral; with biopsy, single or multiple --- Technical --- 09423, Esophagogastroduodenoscopy, flexible, transoral; with biopsy, single or [...] due to excess calories CPT copyright 2021 [employer]. All rights reserved. The codes documented in this report are preliminary and upon engineering leader review may be revised to meet current compliance requirements. Attending Participation: I was present and participated during the entire procedure from insertion to removal of the endoscope. Ciaran Fritz MD 08/19/2023 9:05:14 AM This report has been signed electronically. Number of Addenda: 0 Note Initiated On: 08/19/2023 8:30 AM [facility] HospitalDaglcb81-58-1481 Note* Op Note - Ciaran Fritz MD - 08/19/2023 8:30 AM EDT [facility] Patient Name: Martita Ricketts Procedure Date: 08/19/2023 8:30 AM Gender: Female Date of : 2000 Age: 23 Admit Type: Outpatient Note Status: Finalized Endoscopist: Ciaran Fritz MD, [id number] Procedure: Upper GI endoscopy Indications: Esophageal reflux, [...] immediate complications. Procedure Code(s): --- Professional --- 71911, Esophagogastroduodenoscopy, flexible, transoral; with biopsy, single or multiple --- Technical --- 87622, Esophagogastroduodenoscopy, flexible, transoral; with biopsy, single or [...] due to excess calories CPT copyright 2021 [employer]. All rights reserved. The codes documented in this report are preliminary and upon engineering leader review may be revised to meet current compliance requirements. Attending Participation: I was present and participated during the entire procedure from insertion to removal of the endoscope. Ciaran Fritz MD 08/19/2023 9:05:14 AM This report has been signed electronically. Number of Addenda: 0 Note Initiated On: 08/19/2023 8:30 AM [facility] [id number] Miscellaneous Notes* Op Note - Ciaran Fritz MD - 08/19/2023 8:30 AM EDT [facility] Patient Name: Martita Ricketts Procedure Date: 08/19/2023 8:30 AM Gender: Female Date of : 2000 Age: 23 Admit Type: Outpatient Note Status: Finalized Endoscopist: Ciaran Fritz MD, [id number] Procedure: Upper GI endoscopy Indications: Esophageal reflux, [...] immediate complications. Procedure Code(s): --- Professional --- 27067, Esophagogastroduodenoscopy, flexible, transoral; with biopsy, single or multiple --- Technical --- 17510, Esophagogastroduodenoscopy, flexible, transoral; with biopsy, single or [...] due to excess calories CPT copyright 2021 [employer]. All rights reserved. The codes documented in this report are preliminary and upon engineering leader review may be revised to meet current compliance requirements. Attending Participation: I was present and participated during the entire procedure from insertion to removal of the endoscope. Ciaran Fritz MD 08/19/2023 9:05:14 AM This report has been signed electronically. Number of Addenda: 0 Note Initiated On: 08/19/2023 8:30 AM documented in this [facility]09-14-2023 Telephone encounter Note* Telephone Encounter - Bettye Jarrell - 08/15/2023 1:17 PM EDT I called and scheduled patient for holter 08-20-23 9:30am [facility] and echo 11-06-23 10 am [facility]. Patient notified and placed on a wait list for echo. [facility] [id number] Miscellaneous Notes* Telephone Encounter - Bettye Jarrell - 08/15/2023 1:17 PM EDT I called and scheduled patient for holter 08-20-23 9:30am BC and echo 11-06-23 10 am [facility]. Patient notified and placed on a wait list for echo. documented in this encounterSNorwalk Memorial [id number] History of Present illness Narrative* Mariella Hutchinson PA-C - 08/14/2023 1:30 PM EDT [facility] Cardiology Note DATE of SERVICE:08/14/23 TIME of SERVICE: 2:57 PM Chief Complaint: Chief Complaint Patient presents with Cardiac Clearance History of PresentIllness: Martita Ricketts is a 23 y.o. female with a history of anxiety, depression, asthma, GERD, prediabetesand obesity who presents to the office today for cardiac evaluation prior to surgical bariatric intervention. Currently the patient reports she was adopted and does not know her family history. She states thatshlaila was born at 32 weeks and was [...] pain, orthopnea, PND, palpitations or syncope. She statesthat she has an 54-kwwqn-isp son who was born without any complications. She states that she had more weight gain following the of her son and subsequently has decided to proceed with weight man agement with surgical bariatric intervention. She reports prior [...] in the morning and 600 mg in theevening, Disp: , Rfl: Multiple Vitamins-Iron (MULTIVITAMIN/IRON PO), Take 1 tablet by mouth daily., Disp: , Rfl: propranolol (Inderal) 20 MG tablet, 20 mg in the morning and 20 mg in the evening., Disp: , Rfl: risperiDONE (RisperDAL) 1 MG tablet, Take 1 mg by mouth in the morning and 1 mg at noon and 1 mg inthe evening and 1 mg before bedtime., Disp: [...] following upcoming cardiac testing. documented [facility] this [facility]09-11-2023 Note* Addendum Note - KAMLESH Farley CNP - 08/12/2023 4:20 PM EDTAddended by: JEREMY HELTON on: 08/12/2023 04:20 PM Modules accepted: Orders [facility] [id number] Telephone encounter Note* Telephone Encounter - KAMLESH Farley CNP - 08/12/2023 4:18 PM EDT Signed. [facility] [id number] Note* Addendum Note - Lisa Rondon LPN - 08/12/2023 3:08 PM EDTAddended by: LISA RONDON on: 08/12/2023 03:08 PM Modules accepted: Orders [facility] HospitalMtgfkv61-19-1371 Telephone encounter Note* Telephone Encounter - Lisa Rondon LPN - 08/12/2023 3:07 PM EDT Nicotine please [facility] [id number] History of Present illness Narrative* Ling Pritchett MA - 08/12/2023 1:45 PM EDT [facility] SURGICAL WEIGHT LOSS MANAGEMENT PROGRAM PROGRESS NOTE FOLLOW UP Patient: Martita Ricketts Date of : 2000 Service Date: 08/12/2023 DE Visit number: 3 of 3 Pre Program Weight Metrics Date of Initial Consultation:@FLOWLAST(8961)@ Initial Weight: @FLOWLAST([id number])@ Initial BMI: @FLOWLAST(790346901)@ Chromo Body Weight: @FLOWLAST([id number])@ Excess Body Weight: @FLOWLAST([id number])@ Follow Up Weight Metrics Last Three Weights [...] home O2 Completed by: Ling Pritchett MA * Miguelangel Green MD - 08/12/2023 1:45 PM EDT [facility] - SURGICAL WEIGHT LOSS [...] Victoza 3 weeks prior to surgery, Ms Ricketts understood and agreed --Pre-Diabetes: continue DE plan --Depression: mood improved with adjusted medications per psychiatry [place] levels can increase after surgery --Sleep: snoring, [...] continue monthly visits until authorization/surgery date obtained. ([place]) No orders of the defined types were [...] diagnoses listed in Epic. documented in this [facility]08-21-2023 Note* Addendum Note - Belgica Strange MD - 07/22/2023 2:28 PM EDTAddended by: BELGICA STRANGE on: 07/22/2023 02:28 PM Modules accepted: Orders [id number] Note* Addendum Note - Belgica Strange MD - 07/22/2023 2:28 PM EDTAddended by: BELGICA STRANGE on: 07/22/2023 02:28 PM Modules accepted: Orders [id number] Miscellaneous Notes* Addendum Note - Belgica Strange MD - 07/22/2023 2:28 PM EDTAddended by: BELGICA STRANGE on: 07/22/2023 02:28 PM Modules accepted: Orders documented in this [id number] History of Present illness Narrative* Belgica Strange MD - 07/22/2023 12:37 PM EDT BEHAVIORAL HEALTH PSYCHIATRIC PROGRESS NOTE 07/22/2023 Martita Ricketts, a 23 y.o. female, for follow-up visit for schizoaffective disorder, bipolar type. Patient is referred by No, Physician . Interval History: Martita is here with her and child today. She is feeling much better since the medication adjustment. She is now on a weight loss GLP-1 agonist medication which can affecther lithium level. We agreed to a lithium [...] past medical history, past social history, past surgicalhistory, and problem list. Review of Systems Physical [...] discussed with patient. Impression/ Plan: No Changes [place] I: Schizoaffective Disorder [place] II: Deferred [place] III: see problem list [place] IV: occupational problems, other psychosocial or environmental problems, and problems with primary support group [place] V: 61-70 mild symptoms Recommendations: RTC 8 [...] coordinating care Belgica Strange documented in this [id number] Instructions* Patient Instructions* Magda Guzman APRN.[facility] - 07/20/2023 1:52 PM EDT R.I.C.E. The [...] thin washcloth between the bag and your skin.Apply the ice bag to the area for [...] pillows when lying down. documented in this encounterUniversity Hospitals Samaritan [facility]08-19-2023 History of Present illness Narrative* Magda Guzman APRN.[facility]IT[facility] - 07/20/2023 1:46 PM EDT This note was created using Nomacorcter. Subjective Martita Ricketts is a 23 year old female. 23 [...] history is provided by the patient. No centerpuncher was used. Right knee injury: No Right [...] activity, knocked out. hit head on kyung toterasmo Left ankle sprain 05/12 Menarche -2011 Age [...] tablet by mouth once daily. (Patient not taking:Reported on 03/05/2023) azithromycin (ZITHROMAX) 250 mg tablet [...] 11/04/2018 ) predniSONE (DELTASONE) 20 mg tablet Zjuvihpzdtyyjdb-Lkzsqntbs-TR (BROMFED DM) 2-30-10 mg/5 mL syrup Take 5 mL by mouth four times dailyas needed. (Patient not taking: Reported on 11/04/2018 [...] application to affected area twice daily. (Patient nottaking: Reported on 11/04/2018 ) FAMILY HISTORY Adopted: [...] She is obese. She is not ill-appearing, toxic- appearing or diaphoretic. HENT: Head: Normocephalic and atraumatic. [...] OTC analgesics Medrol Dose Pack Magda Guzman APRN.ACCOUNTING MANAGER CONTROLLER documented in this encounterUniversity Hospitals Samaritan Medical Center08-14-2023 History of Present illness Narrative* Cinthya Agee MA - 07/15/2023 2:50 PM EDT [facility] SURGICAL WEIGHT LOSS MANAGEMENT PROGRAM PROGRESS NOTE FOLLOW UP Patient: Martita Ricketts Date of : 2000 Service Date: 07/15/2023 DE Visit number: 2 of 3 Pre Program Weight Metrics Date of Initial Consultation:@FLOWLAST(8961)@ Initial Weight: @FLOWLAST([id number])@ Initial BMI: @FLOWLAST([id number])@ Chromo Body Weight: @FLOWLAST([id number])@ Excess Body Weight: @FLOWLAST([id number])@ Follow Up Weight Metrics Last Three Weights [...] home O2 Completed by: Cinthya Agee MA * Miguelangel Green MD - 07/15/2023 2:50 PM EDT [facility] - SURGICAL WEIGHT LOSS [...] pop but less Current Activity Training for [email or web address] Plan: -----Obesity Class III, Elevated BMI Diet [...] covered by insurance (prescribed by PCP). Ms. Ricketts states her insurance recommended Victoza A shared [...] lithium levels can increase after surgery, Ms. Ricketts understood and will discuss with her psychiatrist [...] diagnoses listed in Epic. documented in this encounterSNorwalk Memorial HospitalWkqyfl21-22-1056 Telephone encounter Note* Telephone Encounter - KAMLESH Farley CNP - 06/26/2023 3:05 PM EDT UGI shows HH but no reflux. My chart message to pt. CCN updated. [facility] [id number] History of Present illness Narrative* Ling Arriaga RD - 06/19/2023 1:00 PM EDT [facility] BARIATRIC NUTRITION ASSESSMENT / DIET & EXERCISE SURGICAL WEIGHT LOSS MANAGEMENT PROGRAM Date: 06/19/23 Patient Name: Martita Ricketts Date of : 2000 Type of Assessment: [...] wt loss; improve energy levels; improve health; improvemobility Number of years over weight 2 PREVIOUS [...] Mom had open WLS years ago (in [place]). Per diet recall and pt interview, pt [...] of visit. Goals: Include breakfast q day: Comoran yogurt, protein shakes, pb on 1 sl wheat toast Continue increasing water to goal of 64 oz/day Continue decreasing caffeine, to eliminate Continue decreasing carbonation, to eliminate Materials Provided: BNA packet CHO+Pro Snack List Grocery Store List Follow up: PRN Pt encouraged to call/MyChart with questions. Bariatric Nutrition Assessment completed by: Ling Arriaga RD documented in this [facility]07-19-2023 History of Present illness Narrative* Ling Arriaga RD - 06/19/2023 1:00 PM EDT [facility] BARIATRIC NUTRITION ASSESSMENT / DIET & EXERCISE SURGICAL WEIGHT LOSS MANAGEMENT PROGRAM Date: 06/19/23 Patient Name: Martita Ricketts Date of : 2000 Type of Assessment: [...] wt loss; improve energy levels; improve health; improvemobility Number of years over weight 2 PREVIOUS [...] Mom had open WLS years ago (in [place]). Per diet recall and pt interview, pt [...] of visit. Goals: Include breakfast q day: Comoran yogurt, protein shakes, pb on 1 sl wheat toast Continue increasing water to goal of 64 oz/day Continue decreasing caffeine, to eliminate Continue decreasing carbonation, to eliminate Materials Provided: BNA packet CHO+Pro Snack List Grocery Store List Follow up: PRN Pt encouraged to call/MyChart with questions. Bariatric Nutrition Assessment completed by: Ling Arriaga RD documented in this [facility]07-13-2023 History of Present illness Narrative* Cinthya Agee MA - 06/13/2023 12:30 PM EDT [facility] SURGICAL WEIGHT LOSS MANAGEMENT PROGRAM SUPERVISED DIET AND EXERCISE ROOMING: INITIAL VISIT Patient: Martita Ricketts Date of : 2000 Service Date: 06/13/2023 [...] cm) Initial Weight: 190 lb (86.2 kg) Chromo Body Weight: 112 lb (50.8 kg) Initial [...] home O2 Completed by: Cinthya Agee MA * Miguelangel Green MD - 06/13/2023 12:30 PM EDT [facility] SURGICAL WEIGHT LOSS MANAGEMENT PROGRAM PHYSICIAN SUPERVISED DIET AND EXERCISE SURGICAL PREPARATORY REGIMEN PROGRESS NOTE INITIAL EVALUATION Patient: Martita Ricketts Service Date: 06/13/2023 Date of : 2000 [...] (86.2 kg) Initial BMI: Initial BMI: 42.59 Chromo Body Weight: Chromo Body Weight: 112 lb (50.8 kg) Excess [...] DIET HISTORY FORM with patient (located in [employer]) I reviewed all of the patient's medications [...] awakening for breath, dangers of untreated sleep apneabefore and after surgery discussed, she understood and agreed, she agrees with sleep medicine referral --Labs (05/2023) reviewed Plan of care discussed with patient, all questions answered, they agree with plan of care. Patient to return for follow up in one month. Orders Placed This Encounter Procedures [facility] Medicine Miguelangel Green MD 06/13/2023 12:43 PM [address] in this [facility]07-03-2023 Telephone encounter Note* Telephone Encounter - KAMLESH Farley CNP - 06/03/2023 1:43 PM EDT Thanks! [employer] Phone: 1(668) 954-429707-03-2023 Miscellaneous Notes* Telephone Encounter - KAMLESH Farley CNP - 06/03/2023 1:43 PM EDT Thanks! * Telephone Encounter - Romina Lynch RD - 06/03/2023 1:03 PM EDT Spoke to patient over [facility]water[facility]t regarding labs. Patient states she was taking [...] B12 supplement. Orders pending. Medication list updated. * Telephone Encounter - Romina Lynch RD - 05/29/2023 1:14 PM EDT Preop AD Labs (05/29/23) B12: 304 (L normal) Vitamin D: 25 (L) B1 pending Sending patient [employer] message to discuss labs. * Telephone Encounter - Romina Lynch RD - 05/29/2023 1:13 PM EDT ----- Message from KAMLESH Farley CNP sent at 05/29/2023 12:17 PM EDT ----- Vit d-ok? documented in this [facility]07-03-2023 Telephone encounter Note* Telephone Encounter - Romina Lynch RD - 06/03/2023 1:03 PM EDT Spoke to patient over [employer] regarding labs. Patient states she was taking [...] B12 supplement. Orders pending. Medication list updated. [facility] [id number] Hospital Discharge instructions Patient Education 05/31/2023 20:17:11 [...] In it, write down what you were doing,feeling, or eating in the hours before each headache. Show this to your healthcare provider to helpfind the cause of your headaches. If stress seems to be a trigger for your headaches, figure out what is causing stress in your life.Learn new ways to handle your stress. Ideas [...] you can have medicine to take at homethe next time you get a bad headache. [...] of your face Difficulty talking or seeing [id number] [employer]. [address] [place] [address]. All rights reserved. This information is not intended as a substitute for professional medical care. Always follow yourhealthcare professional's instructions. Follow Up Care 05/31/2023 19:53:54 With:Follow up with primary care provider Address:Unknown When:2-4 days [facility] 06-30-2023 Note Discharge Instructions Thank you for allowing [facility] to assist you with your healthcare needs. The following is importantdischarge information regarding your hospital visit. Diagnosis from [...] and or supplements as they may interact withyour home medications. What How Much When Why [...] In it, write down what you were doing,feeling, or eating in the hours before each headache. Show this to your healthcare provider to helpfind the cause of your headaches. If stress seems to be a trigger for your headaches, figure out what is causing stress in your life.Learn new ways to handle your stress. Ideas [...] you can have medicine to take at homethe next time you get a bad headache. [...] of your face Difficulty talking or seeing [phone] [employer]. [address] [place] [address], [place] [address]. All rights reserved. This information is not intended as a substitute for professional medical care. Always follow yourhealthcare professional's instructions. Additional Information VACCINATE! IT SAVES LIVES! Members of the community who have not yet received the COVID-19 vaccine and would like to receive it can visit one of [facility] vaccine clinics. There are many vaccine clinic locations within the [facility]. For locations and available times, please visit www.gettheshot.coronavirus.[place].gov/. It is important to note that some COVID mobile vaccine clinics are held outdoors and may be canceled in rainy or stormy conditions. To learn more about pediatric vaccinations (ages 5-11), we invite you to visit the [facility] webpage. https://www.[facility].org/pages/6109-Xyewj-Qvfraoumyjl-Raiqvbbmvl-Yuxxp-Bif stions.htmlTo learn more about the COVID-19 vaccine, we invite you to visit the CDC website for a list of frequently asked questions. https://www.cdc.gov/coronavirus/2019-ncov/vaccines/faq.html [facility] Patient Portal Access Instructions: Stay connected with your healthcare team and access your personal medical information anytime with the [employer] Patient Portal. If you would like a full copy of your medical records please contact the [facility] Medical Records Department Saturday through Saturday between 8a.m. and 4:30p.m. Please follow the directions below to access the portal: 1.Access the email account you provided upon registration to the [facility].2.Look for an invitation email from [facility].3.Open the email and access the invitation link: Accept Invitation to [employer]4.Fill in the required jernigan to create your [...] you will allow to register on the [facility] Patient Portal for access to your information. You can also access the [facility] Patient Portal on the [employer] ced. Simply click on Health Records under Sm[employer] and then click on the [employer] logo. HOW TO SAFELY DISPOSE OF PRESCRIPTION MEDICATIONS Please use one of the following methods to safely dispose of your unused medications. 1.Use a drug disposal kit: the drug disposal pouch allows you to safely discard your old and unuseddrugs. Ask your nurse to give you one when you are discharged.2.Visit a local take-back location: Many local pharmacies and police departments have programs that collect old and unwanted prescriptiondrugs. Call your local pharmacy or go to http://[employer].Connect[place].com/6X1Ob7l to find one close to you.3.Make use of household items: Use cat litter or old coffee grounds to dispose medications if other options arenot available. Mix your drugs with these household products, seal them in an airtight container andthrow it into the garbage. Call [facility]: [phone] to be sure your drugs can be [...] drowsiness, such as benzodiazepines, also known as benzos,including diazepam and alprazolam, muscle relaxants or sleep aids. Never sell or share prescriptionopioids. This is illegal. Store opioids in a secure place and out of reach of others (including children, family, friends and visitors). The last page(s) of this document has been signed and retained as a CHART COPY Signatures Patient Education Materials Headache, Migraine, Classic Medication Leaflets My discharge plan and instructions have been reviewed and explained to me and I,MARTITA RICKETTS understand my current condition and have read and understand these discharge instructions. I have received a written copy of the plan/instructions. If I have questions, I am aware that I should contactmy doctor. Patient/Business Office Associate Signature: Date/Time: Relationship to Patient: Witness Name/Signature: Date/Time: [facility]06-30-2023 Evaluation + Plan note Diagnostic Tests Pending * [place] Level 05/31/23 [facility] 06-28-2023 Telephone encounter Note* Telephone Encounter - Romina Lynch RD - 05/29/2023 1:14 PM EDT Preop AD Labs (05/29/23) B12: 304 (L normal) Vitamin D: 25 (L) B1 pending Sending patient [employer] message to discuss labs. [facility] [id number] Telephone encounter Note* Telephone Encounter - Romina Lynch RD - 05/29/2023 1:13 PM EDT ----- Message from KAMLESH Farley CNP sent at 05/29/2023 12:17 PM EDT ----- Vit d-ok? [facility] [id number] Telephone encounter Note* Telephone Encounter - Tiny Pineda MA - 05/21/2023 4:06 PM EDT ORDERS MAILED [facility] HospitalNjachl08-17-6165 Miscellaneous Notes* Telephone Encounter - Tiny Pineda MA - 05/21/2023 4:06 PM EDT ORDERS MAILED * Addendum Note - KAMLESH Farley CNP - 05/20/2023 9:06 AM EDTAddended by: JEREMY HELTON on: 05/20/2023 09:06 AM Modules accepted: Orders * Telephone Encounter - KAMLESH Farley CNP - 05/20/2023 9:06 AM EDT Discussed, and ok to sign. * Telephone Encounter - KAMLESH Farley CNP - 05/16/2023 3:29 PM EDT Bmi 39- no comorbid have emailed financial team. * Addendum Note - Tiny Pineda MA - 05/13/2023 2:30 PM EDTAddended by: TINY PINEDA on: 05/13/2023 02:30 PM Modules accepted: Orders * Telephone Encounter - Tiny Pineda MA - 05/13/2023 2:21 PM EDT Orders pended, Pre-op checklist scanned, EGD order sent to ALS * Telephone Encounter - Tiny Pineda MA - 05/13/2023 2:21 PM EDT PLAN Encounter Diagnoses Name Primary? Vitamin D deficiency Morbid obesity with BMI of 40.0-44.9, adult (HCC) Gastroesophageal reflux disease without esophagitis Prediabetes I have recommended proceeding with the evaluation and work-up for the primary procedure as outlinedbelow: PATIENT SUMMARY Martita Fritz 23 y.o. female [...] INITIAL CONSULTATIONS CLEARANCE / MANAGEMENT Psychology [x] Dietitialex [x] Cardiology [x] [] not ordered Pulmonary [...] related to anesthesia, conversion from laparoscopic to andopen procedure, the need for reoperative or endoscopic therapy, the potential for prolonged mechanical ventilation, and . All questions were fully answered to the patient's satisfaction and theywish to proceed with surgical intervention. A total of over 45 minute visit was spent in face to face encounter, counseling the patient, discussing the surgical/perioperative plan, record review and documentation. The patient was seen and examined independently and relevant data including a full chart rreview was performed by myself. * Telephone Encounter - Rena Srivastava - 05/01/2023 1:21 PM EDT Initial New [facility] surgical patient Navigation & Financial Counseling Discussion [...] [] YES [] NO PRIMARY INSURANCE: Payor: [facility] MEDICAID / Plan: [facility] MEDICAID ODM / Product Type: Medicaid HMO [...] 1) Scheduled at new pt surgeon visit: Food Preparation Kitchen Aide (RD) for a Nutrition Assessment (BNA) and Pre-operative Diet and Exercise (DE)appointment #1. [x] Patient reminded to arrive 15 [...] advised of importance of having voicemail and Mister Bucks Pet Food Companyhart for office communications and lab/testing results before and after surgery. documented [facility] this [facility]06-19-2023 Note* Addendum Note - KAMLESH Farley CNP - 05/20/2023 9:06 AM EDTAddended by: JEREMY HELTON on: 05/20/2023 09:06 AM Modules accepted: Orders [employer] Phone: 1(765) 569-383306-19-2023 Note* Addendum Note - KAMLESH Farley CNP - 05/20/2023 9:06 AM EDTAddended by: JEREMY HELTON on: 05/20/2023 09:06 AM Modules accepted: Orders [employer] Phone: 1(304) 202-852806-19-2023 Note* Addendum Note - KAMLESH Farley CNP - 05/20/2023 9:06 AM EDTAddended by: JEREMY HELTON on: 05/20/2023 09:06 AM Modules accepted: Orders [facility] [id number] Telephone encounter Note* Telephone Encounter - KAMLESH Farley CNP - 05/20/2023 9:06 AM EDT Discussed, and ok to sign. [facility] HospitalWrsjkc05-32-3259 Miscellaneous Notes* Addendum Note - KAMLESH Farley CNP - 05/20/2023 9:06 AM EDTAddended by: JEREMY HELTON on: 05/20/2023 09:06 AM Modules accepted: Orders * Telephone Encounter - KAMLESH Farley CNP - 05/20/2023 9:06 AM EDT Discussed, and ok to sign. * Telephone Encounter - KAMLESH Farley CNP - 05/16/2023 3:29 PM EDT Bmi 39- no comorbid have emailed financial team. * Addendum Note - Tiny Pineda MA - 05/13/2023 2:30 PM EDTAddended by: TINY PINEDA on: 05/13/2023 02:30 PM Modules accepted: Orders * Telephone Encounter - Tiny Pineda MA - 05/13/2023 2:21 PM EDT Orders pended, Pre-op checklist scanned, EGD order sent to ALS * Telephone Encounter - Tiny Pineda MA - 05/13/2023 2:21 PM EDT PLAN Encounter Diagnoses Name Primary? Vitamin D deficiency Morbid obesity with BMI of 40.0-44.9, adult (HCC) Gastroesophageal reflux disease without esophagitis Prediabetes I have recommended proceeding with the evaluation and work-up for the primary procedure as outlinedbelow: PATIENT SUMMARY Martita Fritz 23 y.o. female [...] INITIAL CONSULTATIONS CLEARANCE / MANAGEMENT Psychology [x] Dietitialex [x] Cardiology [x] [] not ordered Pulmonary [...] related to anesthesia, conversion from laparoscopic to andopen procedure, the need for reoperative or endoscopic therapy, the potential for prolonged mechanical ventilation, and . All questions were fully answered to the patient's satisfaction and theywish to proceed with surgical intervention. A total of over 45 minute visit was spent in face to face encounter, counseling the patient, discussing the surgical/perioperative plan, record review and documentation. The patient was seen and examined independently and relevant data including a full chart rreview was performed by myself. * Telephone Encounter - Rena Srivastava - 05/01/2023 1:21 PM EDT Initial New [facility] surgical patient Navigation & Financial Counseling Discussion [...] [] YES [] NO PRIMARY INSURANCE: Payor: [facility] MEDICAID / Plan: [facility] MEDICAID ODM / Product Type: Medicaid HMO [...] 1) Scheduled at new pt surgeon visit: Food Preparation Kitchen Aide (RD) for a Nutrition Assessment (BNA) and Pre-operative Diet and Exercise (DE)appointment #1. [x] Patient reminded to arrive 15 [...] before and after surgery. documented in this [facility]06-15-2023 Telephone encounter Note* Telephone Encounter - KAMLESH Farley CNP - 05/16/2023 3:29 PM EDT Bmi 39- no comorbid have emailed financial team. [facility] Phone: [phone] Miscellaneous Notes* Telephone Encounter - KAMLESH Farley CNP - 05/16/2023 3:29 PM EDT Bmi 39- no comorbid have emailed financial team. * Addendum Note - Tiny Pineda MA - 05/13/2023 2:30 PM EDTAddended by: TINY PINEDA on: 05/13/2023 02:30 PM Modules accepted: Orders * Telephone Encounter - Tiny Pineda MA - 05/13/2023 2:21 PM EDT Orders pended, Pre-op checklist scanned, EGD order sent to ALS * Telephone Encounter - Tiny Pineda MA - 05/13/2023 2:21 PM EDT PLAN Encounter Diagnoses Name Primary? Vitamin D deficiency Morbid obesity with BMI of 40.0-44.9, adult (HCC) Gastroesophageal reflux disease without esophagitis Prediabetes I have recommended proceeding with the evaluation and work-up for the primary procedure as outlinedbelow: PATIENT SUMMARY Martita Fritz 23 y.o. female [...] related to anesthesia, conversion from laparoscopic to andopen procedure, the need for reoperative or endoscopic therapy, the potential for prolonged mechanical ventilation, and . All questions were fully answered to the patient's satisfaction and theywish to proceed with surgical intervention. A total of over 45 minute visit was spent in face to face encounter, counseling the patient, discussing the surgical/perioperative plan, record review and documentation. The patient was seen and examined independently and relevant data including a full chart rreview was performed by myself. * Telephone Encounter - Rena Srivastava - 05/01/2023 1:21 PM EDT Initial New [facility] surgical patient Navigation & Financial Counseling Discussion [...] [] YES [] NO PRIMARY INSURANCE: Payor: [facility] MEDICAID / Plan: [facility] MEDICAID ODM / Product Type: Medicaid HMO [...] 1) Scheduled at new pt surgeon visit: Food Preparation Kitchen Aide (RD) for a Nutrition Assessment (BNA) and Pre-operative Diet and Exercise (DE)appointment #1. [x] Patient reminded to arrive 15 [...] advised of importance of having voicemail and OnetoOnetextt for office communications and lab/testing results before and after surgery. documented in this encounterSNorwalk Memorial [id number] Note* Addendum Note - Tiny Pineda MA - 05/13/2023 2:30 PM EDTAddended by: TINY PINEDA on: 05/13/2023 02:30 PM Modules accepted: Orders [facility] [id number] Note* Addendum Note - Tiny Pineda MA - 05/13/2023 2:30 PM EDTAddended by: TINY PINEDA on: 05/13/2023 02:30 PM Modules accepted: Orders [facility] [id number] Note* Addendum Note - Tiny Pineda MA - 05/13/2023 2:30 PM EDTAddended by: TINY PINEDA on: 05/13/2023 02:30 PM Modules accepted: Orders [id number] Note* Addendum Note - Tiny Pineda MA - 05/13/2023 2:30 PM EDTAddended by: TINY PINEDA on: 05/13/2023 02:30 PM Modules accepted: Orders [id number] Note* Addendum Note - Tiny Pineda MA - 05/13/2023 2:30 PM EDTAddended by: TINY PINEDA on: 05/13/2023 02:30 PM Modules accepted: Orders [id number] Note* Addendum Note - Tiny Pineda MA - 05/13/2023 2:30 PM EDTAddended by: TINY PINEDA on: 05/13/2023 02:30 PM Modules accepted: Orders [id number] Miscellaneous Notes* Addendum Note - Tiny Pineda MA - 05/13/2023 2:30 PM EDTAddended by: TINY PINEDA on: 05/13/2023 02:30 PM Modules accepted: Orders * Telephone Encounter - Tiny Pineda MA - 05/13/2023 2:21 PM EDT Orders pended, Pre-op checklist scanned, EGD order sent to ALS * Telephone Encounter - Tiny Pineda MA - 05/13/2023 2:21 PM EDT PLAN Encounter Diagnoses Name Primary? Vitamin D deficiency Morbid obesity with BMI of 40.0-44.9, adult (HCC) Gastroesophageal reflux disease without esophagitis Prediabetes I have recommended proceeding with the evaluation and work-up for the primary procedure as outlinedbelow: PATIENT SUMMARY Martita Fritz 23 y.o. female [...] related to anesthesia, conversion from laparoscopic to andopen procedure, the need for reoperative or endoscopic therapy, the potential for prolonged mechanical ventilation, and . All questions were fully answered to the patient's satisfaction and theywish to proceed with surgical intervention. A total of over 45 minute visit was spent in face to face encounter, counseling the patient, discussing the surgical/perioperative plan, record review and documentation. The patient was seen and examined independently and relevant data including a full chart rreview was performed by myself. * Telephone Encounter - Rena Srivastava - 05/01/2023 1:21 PM EDT Initial New [facility] surgical patient Navigation & Financial Counseling Discussion [...] [] YES [] NO PRIMARY INSURANCE: Payor: [facility] MEDICAID / Plan: [facility] MEDICAID ODM / Product Type: Medicaid HMO [...] 1) Scheduled at new pt surgeon visit: Food Preparation Kitchen Aide (RD) for a Nutrition Assessment (BNA) and Pre-operative Diet and Exercise (DE)appointment #1. [x] Patient reminded to arrive 15 [...] before and after surgery. documented in this [facility]06-12-2023 History of Present illness Narrative* Tiny Pineda MA - 05/13/2023 2:27 PM EDT ENDOSCOPY ORDERS To be scheduled with: Dr. Fritz Patient is: Pre-op/Pre-Bariatric Surgery CPT code: EGD with biopsy- CPT 43742 Diagnosis: GERD- K21.9 If pre-op, Diet & Exercise Requirements are, and started/scheduled on 06/13/2023: 3 months Home O2: No Known Difficult Intubation: No * Carlos Burger - 05/13/2023 2:27 PM EDT LVM ASKING PT TO CALL BACK TO SCHEDULE EGD * Carlos Burger - 05/13/2023 2:27 PM EDT EGD W BIOPSY scheduled Date: 08/19 Time: 9AM Place: [address] [place] [address] Patient notified via phone and MAIL * Funmi Gaston - 05/13/2023 2:27 PM EDT PRINTED * Funmi Gaston - 05/13/2023 2:27 PM EDT Authorization for Testing Initiated. Company Name & Number Contacted for Auth: [facility] Name of Business Office Associate: [employer] Name of Procedure: EGD WITH BIOPSY Cpt Code: 98017 Diagnosis Code: K21.9 Location of Procedure: [facility] Is Auth Required: YES Call Reference #: NA Pending Case #: NA Clinical Reviewer: TREVOR Additional Info if given: NA Approved Case reference: [id number] Date Range for Approved Auth: -11/17/23 documented in this encounterSNorwalk Memorial [id number] Telephone encounter Note* Telephone Encounter - Tiny Pineda MA - 05/13/2023 2:21 PM EDT Orders pended, Pre-op checklist scanned, EGD order sent to ALS [facility] [id number] Telephone encounter Note* Telephone Encounter - Tiny Pineda MA - 05/13/2023 2:21 PM EDT PLAN Encounter Diagnoses Name Primary? Vitamin D deficiency Morbid obesity with BMI of 40.0-44.9, adult (HCC) Gastroesophageal reflux disease without esophagitis Prediabetes I have recommended proceeding with the evaluation and work-up for the primary procedure as outlinedbelow: PATIENT SUMMARY Martita Fritz 23 y.o. female [...] related to anesthesia, conversion from laparoscopic to andopen procedure, the need for reoperative or endoscopic therapy, the potential for prolonged mechanical ventilation, and . All questions were fully answered to the patient's satisfaction and theywish to proceed with surgical intervention. A total of over 45 minute visit was spent in face to face encounter, counseling the patient, discussing the surgical/perioperative plan, record review and documentation. The patient was seen and examined independently and relevant data including a full chart rreview was performed by myself. [facility] [id number] Telephone encounter Note* Telephone Encounter - Rena Odell Srivastava - 05/01/2023 1:21 PM EDT Initial New [facility] surgical patient Navigation & Financial Counseling Discussion [...] [] YES [] NO PRIMARY INSURANCE: Payor: [facility] MEDICAID / Plan: [facility] MEDICAID ODM / Product Type: Medicaid HMO [...] 1) Scheduled at new pt surgeon visit: Food Preparation Kitchen Aide (RD) for a Nutrition Assessment (BNA) and Pre-operative Diet and Exercise (DE)appointment #1. [x] Patient reminded to arrive 15 [...] and lab/testing results before and after surgery. [facility] [id number] History of Present illness Narrative* Bety Mullins LPN - 05/01/2023 11:30 AM EDT [facility] SURGICAL WEIGHT LOSS MANAGEMENT PROGRAM Rooming Note - INITIAL CONSULTATION Patient: Martita Ricketts Date of : 2000 Service Date: 05/01/2023 [...] home O2 Completed by: Bety Mullins LPN * Ciaran Fritz MD - 05/01/2023 11:30 AM EDT Images from the original note were not included. CIARAN FRITZ MD , FACS, [facility] MINIMALLY INVASIVE & METABOLIC / BARIATRIC SURGERY [facility] BARIATRIC EVALUATION - HISTORY AND PHYSICAL 05/01/2023 PATIENT: Martita Ricketts DATE OF : 2000 HISTORY OF PRESENT ILLNESS Chief Complaint: Obesity and associated conditions. Martita Ricketts is a 23 y.o. female with obesity and associated conditions who presents to the [facility] for evaluation for metabolic/bariatric surgery. The patient stands Height: 4' 9.5 (146.1 cm) ([facility] HGT CHK) tall with a weight of [...] confusion and sleep disturbance. The patient is notnervous/anxious. PAST HISTORIES Past Medical History: Diagnosis Date [...] GERD. And we discussed the need for post- operative visit compliance, behavior modifications and dietary compliance, protein and vitamin supplementation, as well as routine scheduled and dedicated exercise. We discussed the potential weight loss benefit, resolution of co- morbid conditions, as well as the possibility of [...] and work-up for the primary procedure as outlinedbelow: PATIENT SUMMARY Martita Fritz 23 y.o. female [...] related to anesthesia, conversion from laparoscopic to andopen procedure, the need for reoperative or endoscopic therapy, the potential for prolonged mechanical ventilation, and . All questions were fully answered to the patient's satisfaction and theywish to proceed with surgical intervention. A total of over 45 minute visit was spent in face to face encounter, counseling the patient, discussing the surgical/perioperative plan, record review and documentation. The patient was seen and examined independently and relevant data including a full chart rreview was performed by myself. AN FRITZ MD, [facility], [facility] State Epidemiologist - Weight Management [place] / [facility] Oversize Load Pilot Escort - Advanced GI MIS, Foregut and Bariatric Surgery Fellowship ---[facility]--- Patient Care Team: Magda Kelly as PCP - General Ciaran Fritz MD as Surgeon (General Surgery) documented in this encounterSNorwalk Memorial [id number] History of Present illness Narrative* Belgica Strange MD - 04/09/2023 10:48 AM EDT Medication questions reviewed and answered documented in this [id number] History of Present illness Narrative* Belgica Strange MD - 04/08/2023 11:43 AM EDT Medication questions answered documented in this [id number] History of Present illness Narrative* NABEEL Tang - 03/05/2023 2:50 PM EDT This note was created using Nomacorcter. Subjective Martita Ricketts is a 23 year old female. HPI [...] she was around somebody with COVID, but theywere out of their isolation window. PAST MEDICAL [...] tablet by mouth once daily. (Patient not taking:Reported on 03/05/2023) azithromycin (ZITHROMAX) 250 mg tablet [...] a WEEK. predniSONE (DELTASONE) 20 mg tablet Oebhgfijhcylzmc-Qjejbwexs-OC (BROMFED DM) 2-30-10 mg/5 mL syrup Take 5 mL by mouth four times dailyas needed. (Patient not taking: Reported on 11/04/2018 [...] application to affected area twice daily. (Patient nottaking: Reported on 11/04/2018 ) nebulizer accessories(OPTICHAMBER MEDIUM [...] Nursing noted heart rate at 130, but onmy exam, heart rate was 108. 2. Throat [...] ER evaluation. NABEEL Tang documented in this encounterUniversity [facility]als [facility]03-14-2023 History of Present illness Narrative* Belgica Strange MD - 02/12/2023 1:13 PM EDT Medication sent to the pharmacy documented in this [id number] History of Present illness Narrative* Belgica Strange MD - 01/09/2023 3:34 PM EST BEHAVIORAL HEALTH PSYCHIATRIC PROGRESS NOTE 01/09/2023 Martita Ricketts, a 22 y.o. female, for follow-up visit. [...] past medical history, past social history, past surgicalhistory, and problem list. Review of Systems All [...] of Knowledge: intact Labs/ Diagnostic Imaging reviewed: [place] level on 12/24/2022 0.6 mEq/L Response to Medication: Good ASSESSMENT AND PLAN: A: Schizoaffective disorder bipolar type, complete remission of symptoms on lithium alone. P: Continue lithium at therapeutic levels Follow-up plan was discussed with patient. Impression/ Plan: No Changes [place] I: Schizoaffective Disorder [place] II: No diagnosis [place] III: See problem list [place] IV: other psychosocial or environmental problems [place] V: 61-70 mild symptoms Recommendations: RTC 3 months Review with patient: Treatment plan reviewed with the patient. Medication risks/benefit reviewed with the patient Total Time: 15 minutes>50% time counseling or coordinating care DIAGNOSIS: F25.0 patient and spouse has been informed of the benefits, risks, possible side effects and alternativesto the medical treatment listed above and have expressed understanding Total Time: 15 minutes __ >50% time counseling or coordinating care Belgica Strange documented in this [id number] History of Present illness Narrative* RITIKA Reeves - 12/24/2022 1:08 PM EST Patient's status/progress reviewed in morning safety huddle. [...] will followup with Dr. Strange and [facility]. No AVS sent as there was no JANET signed for [facility] and Dr. Strange already linked in [facility]. * Meaghan Cruz - 12/24/2022 10:44 AM EST Upon arrival patient was sleeping in bed. Woke up for vitals and breakfast. Patient acknowledges this student upon approach. After breakfast, patient read a book in bed in room. Calm and controlled. Dressed in street wear. Attended group. * NOA Page - 12/24/2022 9:30 AM EST Time in Group: 929 Pt is dressed [...] was receptive to feedback. One such was changesthat she needs to made to maintain stability and not being able to identify any. * Clemencia Santizo RN - 12/24/2022 7:44 AM EST 0730 Report received , previous shift notes and labs ,orders reviewed , patient resting quietly resp unlabored 0910 Patient reading a book , pleasant controlled and cooperative rates depression a 3 or 4 denies anxiety , denies hearing voices , per patient good appetite and sleeping well , patient states I amjust waiting to see Dr. Strange I am hoping to leave today ,she told me 3 -4 days just to be here toña controlled environment while starting on the lithium , oral check done at this time 0940 Patient attending life skills group 1145 Discharge order receieved from maxine Strange obtained and signed by patient prior to discharge , discharge orders reviewed ,with patient Dr. Strange ordered lithium level to be checked priorto patient discharge , Xander aware patient had dose of lithium this am per scheduled orders . 1152 Lab here lithium level drawn per orders 0015 Patient received meds to bed other than invega , pharmacy informed patient to pickle sorter invega at her pharmacy [address] Strange that lithium results are still not available , ok to administerscheduled dose prior to discharge states I will review results later patient given lithium per orders and oral chek done tolerated well no further concerns or questions at this time. 1305 patient left discharged at this time ride here .controlledand cooperative denies SI * Suzan Eduardo RN - 12/24/2022 1:01 AM EST 19:20 - Assumed care of patient. Patient seated in TV lounge. Calm and controlled. Dressed in street wear. No odor noted, clean, groomed. Patient acknowledges this nurse upon approach. Maintains goodeye contact. Accepts a drink of kathleen allyssa [...] Total hours of sleep for shift 8.5 * Lebron Berumen MD - 12/23/2022 4:57 PM EST Psychiatry Progress Note Patient Name: Martita Ricketts Admit Date: 1190104 MR #: [id number] : 2000 Perpetual Assessment Martita Ricketts is a 22 y.o. female presenting with [...] very bothersome and which interferes with her concent ration ability to perform her work. She is anxious and dysphoric and has suicidal thoughts multipletimes a day. She does not actually have [...] answered. Lebron Berumen MD 12/23/2022 4:57 PM * NOA Gore - 12/23/2022 2:00 PM EST [id number] Recreation Therapy: PT out in TV lounge when approached for group, willing to attend. Pt dressed in PJs but voiced that she was going to take shower and change clothes so to be pretty for when my comes tonight. PT was educated to the focus and purpose of group and to new leisureskill of Sequence a card and board game. PT only one in group and questioned typewriter assembly and parts inspector what I would doif she was not in group, to which answer was given and pt presented self as if doing typewriter assembly and parts inspector a favorby being in group because pt did not truly want to be there themselves. PT attentive to directions,retained them well and applied them just the same. PT able to play independently using strategy well. PT won game quickly and when asked to engage in another round declined citing that she needed to shower and get ready for visitation that was over 3 hours away. * NOA Gore - 12/23/2022 10:00 AM EST PT resting soundly in bed, did not wake to being addressed, thus did not attend. * Yaron Hodge LPN - 12/23/2022 7:28 AM EST 0721: Patient laying in bed, calm even and unlabored respirations, patient repositions self, prone position at this time. 0848: Patient approached nurse's station, requested to take [place], administered as ordered, patient tolerated well, oral [...] patient awoke, thanked and denies further needs atthis time. Administered scheduled [place] per orders, patient tolerated well, oral cavity check cleared. 1214: Patient ambulated from room, now seated in the lounge with peer, socially appropriate, calm composed, denies needs at present. 1405: Patient attending group therapy session in the conference room, recreational activity of Sequence played with Amena Storey, [employer] socially appropriate, engaged in the activity. 1505: [...] approach, filling out menu selections for tomorrow's meals,administered [place] dose per orders, patient tolerated well, oral cavity check cleared. Patient denies further needs. 1826: Patient's arrived for visitation, mask worn properly, now seated together in the lounge, socializing appropriately, calm composed at the time of this writing. * Irma Mckenzie RN - 12/22/2022 7:43 PM EST 1935: Pt brings phone back to nurses station. Pt casual, pleasant, controlled, cooperative, and makes appropriate eye contact. Pt provided snack and drink per request. Denies further needs and [facility] 2005: Pt sitting in lounge watching tv. When asked how pt feeling, pt replies I feel slow. It's weird, like I'm moving in slow motion. Pt reports thoughts also feel slowed down. Pt states I think it's because of the meds. Pt reports Invega was increased and [place]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 [phone] LEGAL STATUS Voluntary DIAGNOSIS/ACTIVE PROBLEM LIST Medical [...] appointment today with Dr. Strange who recommended shecome to the hospital for inpatient admission. Per [...] them. She reports feelings of hopelessness and w orthlessness. She is not future oriented at this time and does not engage in safety planning with this worker. She is calm, cooperative and directable. She is alert and oriented to person, place and time. Thought content, speech, and eye contact are appropriate. Affect is flat. She denies homicidalideations. Stressors: Pt reports that she has a whole lot of stressors that she doesn't have time to get into. She doesmention that her mental health is her biggest [...] older brother, older sister and younger sister thatshe has decent relationships with. She has been [...] Psychiatric Medications: Anti-depressants, Anti-psychotics Previous Psychiatric Hospitalizations: [facility] x2 in January 2022 Current Psychiatric Medications: [...] Conflict Resolution (Coping Skills): No Cultural and Muslim Beliefs: No Access to Weapons: No TREATMENT [...] on plan of care. documented in this [id number] Note* Plan of Care - Lexi Sanders RN - 12/21/2022 9:27 AM EST Problem: Suicide - Risk of Goal: Able [...] of comfort function goal Outcome: Partially Met [id number] Initial evaluation note* Initial Assessments - NOA Page - 12/21/2022 8:50 AM EST Behavioral Health Therapy Initial Assessment Reason for Admission: Pt states she was at her doctors appointment and states Dr. Strange wanted totry me on a different medication in a [...] and unwind. 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 On the days she does not work states some days I am productive and others I am relaxing. Pt is and has a 1 year old son. States she works with [employer]. Leisure/Coping: Spend time with my and go on some sort of date, listen to music, journal.Pt denies alcohol or drug use. Supports: My [...] choice to be here stating if I didn'tcome they would have pink slipped me. Plan: Pt will attend Goal, Life Skills, Wellness, and Recreation Therapy and be educated to coping skills, managing symptoms and improve positive thoughts of self. Refer to Adjunct Therapy flow sheet for additional information. Medical [id number] Note* Plan of Care - Suzan Eduardo RN - 12/20/2022 10:56 PM EST Problem: Suicide - Risk of Goal: Able [...] discharge plan and instructions Outcome: Not Addressed [id number] Note* ED Attestation Note - Mohit Blakely MD - 12/20/2022 7:13 PM EST ED Attestation: I was personally available for consult in the emergency department. I have reviewedthe chart and agree with the documentation as recorded by the CED (Advanced Practice Provider), including the assessment, treatment plan, and disposition [facility] Work Phone: [phone]) 867-353801-19-2023 Emergency department Note* Jamaica Garcia RN - 12/20/2022 6:00 PM EST Suicide check- Patient location: in room. Room check: Yes Safety- Precautions: Elopement Interventions: Sitter Visual Checks:; Every 15 mins. Self Injurious Behaviors: None observed. Harmful actions towards others: none observed [id number] Emergency department Note* Jamaica Garcia RN - 12/20/2022 6:00 PM EST Rounding Assessment: Activity- Resting in bed. Cardio/Resp.- Spontaneous, equal chest rise. Respirs unlabored. Skin- Warm and dry. Needs/Concerns- Denies any further needs at this time. Safety- No AMA gown intact. Bed in low fixed position. Continuous monitoring in place. [id number] Emergency department Note* Jamaica Garcia RN - 12/20/2022 6:00 PM EST Suicide check- Patient location: in room. Room check: Yes Safety- Precautions: Elopement Interventions: Sitter Visual Checks:; Every 15 mins. Self Injurious Behaviors: None observed. Harmful actions towards others: none observed * Jamaica Garcia RN - 12/20/2022 6:00 PM EST Rounding Assessment: Activity- Resting in bed. Cardio/Resp.- Spontaneous, equal chest rise. Respirs unlabored. Skin- Warm and dry. Needs/Concerns- Denies any further needs at this time. Safety- No AMA gown intact. Bed in low fixed position. Continuous monitoring in place. * Jamaica Garcia RN - 12/20/2022 5:56 PM EST Dinner tray ordered * Jamaica Garcia RN - 12/20/2022 5:00 PM EST Suicide check- Patient location: in room. Room check: Yes Safety- Precautions: Elopement Interventions: Sitter Visual Checks:; Every 15 mins. Self Injurious Behaviors: None observed. Harmful actions towards others: none observed * Jamaica Garcia RN - 12/20/2022 5:00 PM EST Rounding Assessment: Activity- Resting in bed. Cardio/Resp.- Spontaneous, equal chest rise. Respirs unlabored. Skin- Warm and dry. Needs/Concerns- Denies any further needs at this time. Safety- No AMA gown intact. Bed in low fixed position. Continuous monitoring in place. * Jamaica Garcia RN - 12/20/2022 4:00 PM EST Rounding Assessment: Activity- Resting in bed. Cardio/Resp.- Spontaneous, equal chest rise. Respirs unlabored. Skin- Warm and dry. Needs/Concerns- Denies any further needs at this time. Safety- No AMA gown intact. Bed in low fixed position. Continuous monitoring in place. * Jamaica Garcia RN - 12/20/2022 4:00 PM EST Suicide check- Patient location: in room. Room check: Yes Safety- Precautions: Elopement Interventions: Sitter Visual Checks:; Every 15 mins. Self Injurious Behaviors: None observed. Harmful actions towards others: none observed * Jamaica Garcia RN - 12/20/2022 3:00 PM EST Suicide check- Patient location: in room. Room check: Yes Safety- Precautions: Elopement Interventions: Sitter Visual Checks:; Every 15 mins. Self Injurious Behaviors: None observed. Harmful actions towards others: none observed * Jamaica Garcia RN - 12/20/2022 3:00 PM EST Rounding Assessment: Activity- Resting in bed. Cardio/Resp.- Spontaneous, equal chest rise. Respirs unlabored. Skin- Warm and dry. Needs/Concerns- Denies any further needs at this time. Safety- No AMA gown intact. Bed in low fixed position. Continuous monitoring in place. * Maegan Justin - 12/20/2022 2:32 PM EST Lunch tray delivered. * Therese Buenrostro PA-C - 12/20/2022 1:52 PM EST ED PROVIDER NOTE [facility] NAME: Martita Ricketts AGE: 22 y.o. : 2000 VISIT DATE: 12/20/2022 CSN: [id number] PCP: Physician No Chief Complaint Patient presents [...] hallucinations and suicidal ideas. Negative for agitation. Thepatient is not nervous/anxious. Patient Vitals for the [...] Yellow Clarity, Urine Cloudy (A) Clear Specific [place]ley 1.025 1.005 - 1.025 pH, Urine 5.5 [...] been specified. Therese Buenrostro PA-C 12/20/22 1514 * Jamaica Garcia RN - 12/20/2022 1:50 PM EST Pt to ED with complaints of suicidal ideation. Pt reports having these feelings since having her son around a year ago, with increasing depression and suicidal thoughts since. Pt reports no plan at this point. Pt reports a suicide attempt by overdosing on pills prior to of son. Pt reports good support system of and mother. 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 Strange Accepted for Admission: Yes Admitting Physician: Other Other Admitting Physician: Dr. Strange Number For RN To RN Communication: [phone] Risk Factors Recent Psychological Experiences: Other (Comment) [...] them. She reports feelings of hopelessness and w orthlessness. She is not future oriented at this time and does not engage in safety planning with this worker. She is calm, cooperative and directable. She is alert and oriented to person, place and time. Thought content, speech, and eye contact are appropriate. Affect is flat. She denies homicidalideations. 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 Strange Patient Support System: Family Current Living Arrangements: Lives with , parents and son Type of Residence: Private residence Name and Contact of Collateral Provider: Dex (Spouse) [phone] LEGAL STATUS Voluntary DIAGNOSIS/ACTIVE PROBLEM LIST Medical [...] appointment today with Dr. Strange who recommended shecome to the hospital for inpatient admission. Per [...] them. She reports feelings of hopelessness and w orthlessness. She is not future oriented at this time and does not engage in safety planning with this worker. She is calm, cooperative and directable. She is alert and oriented to person, place and time. Thought content, speech, and eye contact are appropriate. Affect is flat. She denies homicidalideations. Stressors: Pt reports that she has a whole lot of stressors that she doesn't have time to get into. She doesmention that her mental health is her biggest [...] older brother, older sister and younger sister thatshe has decent relationships with. She has been [...] Psychiatric Medications: Anti-depressants, Anti-psychotics Previous Psychiatric Hospitalizations: [facility] x2 in January 2022 Current Psychiatric Medications: [...] Conflict Resolution (Coping Skills): No Cultural and Muslim Beliefs: No Access to Weapons: No TREATMENT [...] and DEZ Berumen, on plan of care. [id number] Emergency department Note* Jamaica Garcia RN - 12/20/2022 5:00 PM EST Suicide check- Patient location: in room. Room check: Yes Safety- Precautions: Elopement Interventions: Sitter Visual Checks:; Every 15 mins. Self Injurious Behaviors: None observed. Harmful actions towards others: none observed [id number] Emergency department Note* Jamaica Garcia RN - 12/20/2022 5:00 PM EST Rounding Assessment: Activity- Resting in bed. Cardio/Resp.- Spontaneous, equal chest rise. Respirs unlabored. Skin- Warm and dry. Needs/Concerns- Denies any further needs at this time. Safety- No AMA gown intact. Bed in low fixed position. Continuous monitoring in place. [id number] Emergency department Note* Jamaica Garcia RN - 12/20/2022 4:00 PM EST Rounding Assessment: Activity- Resting in bed. Cardio/Resp.- Spontaneous, equal chest rise. Respirs unlabored. Skin- Warm and dry. Needs/Concerns- Denies any further needs at this time. Safety- No AMA gown intact. Bed in low fixed position. Continuous monitoring in place. [id number] Emergency department Note* Jamaica Garcia RN - 12/20/2022 4:00 PM EST Suicide check- Patient location: in room. Room check: Yes Safety- Precautions: Elopement Interventions: Sitter Visual Checks:; Every 15 mins. Self Injurious Behaviors: None observed. Harmful actions towards others: none observed [id number] Emergency department Note* Jamaica Garcia RN - 12/20/2022 3:00 PM EST Suicide check- Patient location: in room. Room check: Yes Safety- Precautions: Elopement Interventions: Sitter Visual Checks:; Every 15 mins. Self Injurious Behaviors: None observed. Harmful actions towards others: none observed [id number] Emergency department Note* Jamaica Garcia RN - 12/20/2022 3:00 PM EST Rounding Assessment: Activity- Resting in bed. Cardio/Resp.- Spontaneous, equal chest rise. Respirs unlabored. Skin- Warm and dry. Needs/Concerns- Denies any further needs at this time. Safety- No AMA gown intact. Bed in low fixed position. Continuous monitoring in place. [address]RvsiWnlwtn21-06-1770 Emergency department Note* Maegan Justin - 12/20/2022 2:32 PM EST Lunch tray delivered. [id number] Physician Emergency department Note* Therese Buenrostro PA-C - 12/20/2022 1:52 PM EST ED PROVIDER NOTE [facility] NAME: Martita Ricketts AGE: 22 y.o. : 2000 VISIT DATE: 12/20/2022 CSN: [id number] PCP: Physician No Chief Complaint Patient presents [...] hallucinations and suicidal ideas. Negative for agitation. Thepatient is not nervous/anxious. Patient Vitals for the [...] Yellow Clarity, Urine Cloudy (A) Clear Specific Wheat[place] 1.025 1.005 - 1.025 pH, Urine 5.5 [...] been specified. Therese Buenrostro PA-C 12/20/22 1514 [employer] Phone: [phone] 430-381801-19-2023 Emergency department Triage note* Jamaica Garcia RN - 12/20/2022 1:50 PM EST Pt to ED with complaints of suicidal ideation. Pt reports having these feelings since having her son around a year ago, with increasing depression and suicidal thoughts since. Pt reports no plan at this point. Pt reports a suicide attempt by overdosing on pills prior to of son. Pt reports good support system of and mother. [id number] History of Present illness Narrative* Belgica Strange MD - 12/20/2022 12:56 PM EST BEHAVIORAL HEALTH PSYCHIATRIC PROGRESS NOTE 12/20/2022 Martita Ricketts, a 22 y.o. female, for follow-up visit. [...] past medical history, past social history, past surgicalhistory, and problem list. Review of Systems Physical [...] discussed with patient. Impression/ Plan: No Changes [place] I: Schizoaffective Disorder [place] II: No diagnosis [place] III: See problem list [place] IV: other psychosocial or environmental problems [place] V: 41-50 serious symptoms Recommendations: Review with patient: Treatment plan reviewed with the patient. Medication risks/benefit reviewed with the patient Total Time: 30mins >50% time counseling or coordinating care DIAGNOSIS: F25.0 Total Time: 30 mins __ >50% time counseling or coordinating care Belgica Strange documented in this [id number] History of Present illness Narrative* Belgica Strange MD - 10/31/2022 12:26 PM EST BEHAVIORAL HEALTH PSYCHIATRIC PROGRESS NOTE 10/31/2022 Martita Ricketts, a 22 y.o. female, for follow-up visit. Patient is referred by Physician No . Interval History: Has been feeling better current medications. Voices are much less. No paranoia. Her mood continues to be a bit unstable short periods of irritability. No suicidal thinking which is.She still struggles with periodic depression. She is [...] past medical history, past social history, past surgicalhistory, and problem list. Review of Systems Constitutional: [...] discussed with patient. Impression/ Plan: No Changes [place] I: Bipolar, mixed [place] II: No diagnosis [place] III: No diagnosis [place] IV: other psychosocial or environmental problems [place] V: 51-60 moderate symptoms Recommendations: RTC 4 weeks Review with patient: Treatment plan reviewed with the patient. Medication risks/benefit reviewed with the patient Total Time: 15 mins >50% time counseling or coordinating care DIAGNOSIS: F31.9 patient and spouse has been informed of the benefits, risks, possible side effects and alternativesto the medical treatment listed above and have expressed understanding Total Time: 15 mins __ >50% time counseling or coordinating care Belgica Strange documented in this [id number] History of Present illness Narrative* Belgica Strange MD - 10/10/2022 1:30 PM EST BEHAVIORAL HEALTH PSYCHIATRIC PROGRESS NOTE 10/10/2022 Martita Ricketts, a 22 y.o. female, for follow-up visit. [...] calm. No suicidal thoughts at this time. [place] she has heard voices recently telling her to throw herself down the stairs. This was at the time she overdosed on the Ativan and she did, in fact, fall downstairs. She has a lot of social supportand supervision at home. Living with her parents [...] past medical history, past social history, past surgicalhistory, and problem list. Review of Systems Constitutional: [...] discussed with patient. Impression/ Plan: No Changes [place] I: Bipolar, mixed [place] II: No diagnosis [place] III: See problem list [place] IV: other psychosocial or environmental problems [place] V: 41-50 serious symptoms Recommendations: RTC 2 [...] coordinating care Belgica Strange documented in this [id number] Note* Addendum Note - Srinivas Costello MA - 08/15/2022 1:32 PM EDTAddended by: SRINIVAS COSTELLO on: 08/15/2022 01:32 PM Modules accepted: Orders [id number] Miscellaneous Notes* Addendum Note - Srinivas Costello MA - 08/15/2022 1:32 PM EDTAddended by: SRINIVAS COSTELLO on: 08/15/2022 01:32 PM Modules accepted: Orders documented in this [id number] History of Present illness Narrative* Belgica Strange MD - 06/14/2022 1:17 PM EDT BEHAVIORAL HEALTH PSYCHIATRIC PROGRESS NOTE 06/14/2022 Martita Ricketts, a 22 y.o. female, for follow-up visit. Patient is referred by Physician No . Interval History: Martita feels that she [...] past medical history, past social history, past surgicalhistory, and problem list. Review of Systems All [...] discussed with patient. Impression/ Plan: No Changes [place] I: Bipolar, mixed [place] II: Deferred [place] III: See problem list [place] IV: other psychosocial or environmental problems [place] V: 61-70 mild symptoms Recommendations: RTC 2 months Review with patient: Treatment plan reviewed with the patient. Medication risks/benefit reviewed with the patient Total Time: 20 minutes>50% time counseling or coordinating care DIAGNOSIS: F 31.9 patient and spouse has been informed of the benefits, risks, possible side effects and alternativesto the medical treatment listed above and have expressed understanding Total Time: __ >50% time counseling or coordinating care Belgica Strange documented in this [id number] Evaluation + Plan note Diagnostic Tests Pending * N. gonorrhoeae PCR 05/08/22 * HSV 1 and 2 IgG and IgM - Panel 05/08/22 * Chlamydia trachomatis PCR 05/08/22 * Rapid Plasma Reagin Test 05/08/22 Future Scheduled Tests Laboratory* Panel (AO) 07/21/21 Radiology* US OB < 14 weeks 06/07/21 [facility] 05-05-2022 History of Present illness Narrative* Belgica Strange MD - 04/05/2022 4:11 PM EDT BEHAVIORAL HEALTH PSYCHIATRIC PROGRESS NOTE 04/05/2022 Martita Ricketts, a 22 y.o. female, for follow-up visit. Patient is referred by Physician No . Interval History: Martita continues to struggle with depression [...] medications. She is involved in counseling in [place]. PFSH: Past Medical History: Diagnosis Date Asthma [...] past medical history, past social history, past surgicalhistory, and problem list. Review of Systems Physical [...] discussed with patient. Impression/ Plan: No Changes [place] I: Bipolar 2 disorder [place] II: No diagnosis [place] III: See problem list [place] IV: other psychosocial or environmental problems [place] V: 61-70 mild symptoms Recommendations: RTC 3 [...] coordinating care Belgica Strange documented in this [id number] Hospital course Narrative* Belgica Strange MD - 02/26/2022 2:05 PM EDT Inpatient Psychiatry Discharge Summary Patient Name: Martita Ricketts MR #: [id number] : 2000 Admit Date: 487013 Discharge Date/Time: 02/26/2022 2:05 PM Clinical Summary [...] then developed problems falling asleep and staying asleep.She became more irritable. Her new baby was screaming and crying and she had thoughts about hurtinghim and then immediately had thoughts about suicide. [...] she may have some steep ups and downsand she is more than willing to reach [...] Your Medications These medications were sent to [address] [address] ARIPiprazole 5 MG tablet lamoTRIgine 100 MG tablet This patient is being discharged on one antipsychotic. Diagnostic work up including: BMI, blood pressure, hemoglobin A1c or blood glucose, and lipid panel have been completed in the past year performed within [facility] and available in EPIC. Glucose <126mg/dL, no indication of impaired glucose tolerance or insulin resistance in fasting or nonfasting state. Tobacco cessation medication not indicated; Patient is only a someday tobacco user or doesn't usecurrently. Disposition: Home Follow Up: [facility] - Batch Operator [address] [address] Go on 02/27/2022 Appointment: 02/27/22 at 1:00pm w/Eve for counseling Belgica Strange MD [address] [place] [address] Schedule an appointment as soon as possible for a visit Left message with Srinivas - awaiting response. MEM Discharge Diet: Resume home diet Additional Information: Provider(s): Primary Care: No primary care provider on file. Phone: None Address: No primary physician on file. To contact Belgica Strange MD or ergonomist physician, call [phone] ([place]) for 24 hour/7 day for emergencies related to inpatient stay or to obtain results of studies pending at discharge. Patient instructions, including activity, were given to the patient/family at discharge. Please seethe After Visit Summary in the medical record for details. Time spent on discharge: > 30 minutes Completed by: Belgica Strange on 02/26/22, 2:30 PM documented in this [id number] Hospital Discharge instructions * Discharge Instr - Care Coordination* CECILIA Bowens - 02/26/2022 2:05 PM EDT Images from the original note were not included. documented in this [id number] Note* Plan of Care - Deyanira Andres RN - 02/26/2022 12:54 PM EDT Problem: Actual or potential alteration in health [...] RN Outcome: Completed 02/26/2022 08 by Deyanira nAdres RN Outcome: Partially Met Problem: Health Maintenance [...] RN Outcome: Completed 02/26/2022 08 by Deyanira Anders RN Outcome: Met Goal: Participation in group [...] by Deyanira Andres RN Outcome: Not Addressed [id number] Miscellaneous Notes* Plan of Care - Deyanira Andres RN - 02/26/2022 12:54 PM EDT Problem: Actual or potential alteration in health [...] by Deyanira Andres RN Outcome: Not Addressed * Plan of Care - Deyanira Andres RN - 02/26/2022 8:05 AM EDT Problem: Actual or potential alteration in health [...] need for follow-up care Outcome: Not Addressed * Plan of Care - Ling Srivastava RN - 02/25/2022 3:36 PM EDT Problem: Actual or potential alteration in health [...] intake to meet estimated needs Outcome: Completed * Plan of Care - Cinthya Carbajal RN - 02/25/2022 8:50 AM EDT Problem: Actual or potential alteration in health [...] need for follow-up care Outcome: Partially Met * Plan of Care - Ling Srivastava RN - 02/24/2022 3:54 PM EDT Problem: Actual or potential alteration in health [...] need for follow-up care Outcome: Partially Met * Initial Assessments - Nubia Meyer, [employer] - 02/24/2022 12:15 PM EDT BEHAVIORAL HEALTH EVALUATION REASON FOR ADMISSION: I [...] alone because that is when I have thethoughts LEISURE INTERESTS: walking, driving, listen to music, [...] skills, and planning for life after discharge. * Plan of Care - Cinthya Carbajal RN - 02/24/2022 8:37 AM EDT Problem: Actual or potential alteration in health [...] need for follow-up care Outcome: Partially Met * Treatment Plan - Belgica Strange MD - 02/23/2022 6:44 PM EDT Behavioral Health Initial Treatment Plan Date: 02/23/2022 Time: 6:44 PM Patient Name: Martita Ricketts Date of : 2000 Sex: Female Admit Date/Time: 02/23/2022 3:26 PM Patient Active Problem List Diagnosis Date Noted Post traumatic stress disorder (PTSD) 02/16/2022 Bipolar II disorder major depressive with onset (HCC) 02/15/2022 Diagnosis [place] I: Bipolar II and PTSD [place] II: No diagnosis [place] III: Patient Active Problem List Diagnosis Date Noted Post traumatic stress disorder (PTSD) 02/16/2022 Bipolar II disorder major depressive with onset (HCC) 02/15/2022 [place] IV: other psychosocial or environmental problems [place] V: 41-50 serious symptoms Reason for Hospitalization [...] psychoeduction, Handouts psychoeducation, Individual psychoeducation, Family education/meeting, Developpersonal safety plan Status Of Goal: Unchanged Patient's [...] Goals met Additional Comments: Physician, Registered Nurse, Operations Specialist, Adjunct Therapist included in treatment team discussion. Treatment team members present Belgica Strange MD Patient Signature Date Patient's Response To Treatment Plan: Physician Signature Date * Assessment & Plan Note - Belgica Strange MD - 02/23/2022 6:21 PM EDT Associated Problem(s): Bipolar II disorder major depressive with onset (HCC) A: Martita Hastings, as she prefers to be called, was feeling well when she left the unit on Saturday. She was hopeful and optimistic. She then developed problems falling asleep and staying asleep.She became more irritable. Her new baby was screaming and crying and she had thoughts about hurtinghim and then immediately had thoughts about suicide. [...] she may have some steep ups and downsand she is more than willing to reach out when she needs help. Plan: Discharge to outpatient follow-up * Plan of Care - Indira Dumont RN - 02/23/2022 5:01 PM EDT Problem: Violence - Risk of, Self/Other-Directed Goal: [...] ADL Outcome: Partially Met documented in this [id number] History of Present illness Narrative* CECILIA Bowens - 02/26/2022 10:15 AM EDT Discussed case with attending physician today. Dr. Strange is to discharge patient home today. [facility] follow-[facility] with Dr. Strange [facility] - will fax AVS to their agency oncecompleted. Safety Plan completed and reviewed. Patient reports feeling good and calm today and denies any SI, HI, or hallucinations. Patient feels ready for discharge. Family to transport patient home. Case closed. * CECILIA Bowens - 02/26/2022 9:35 AM EDT HYDROGEN TREATER printed off the initial treatment plan as completed by Dr. Strange and presented it to the patient for her review and signature. Patient reviewed the treatment plan and signed. HYDROGEN TREATER placed the treatment plan in patient's chart. Treatment plan update is due 02/26/22. Castings Trimmer will continueto follow patient and assist with discharge planning. * CECILIA Bowens - 02/26/2022 9:33 AM EDT HYDROGEN TREATER reviewed patient chart. Patient signed the voluntary psych consent. Signed releases of information are present in chart for the following: - Dex Ricketts, and Eve Moreau - [facility]. HYDROGEN TREATER then met with patient in common area to introduce HYDROGEN TREATER, explain director social role in patient's treatment, and to initiate the discharge planning process. Patient then reviewed basic psychosocial information with HYDROGEN TREATER. (See SW psychosocial assessment note by [facility] dated 02/16/2022t 11:11 AM for more detailed information.) Patient affirmed that current reason for hospitalization was increased depression with suicidal ideation. Prior hospitalizations: 1x prior at [facility]. Patient lives with her and son, denies any access to weapons or abuse at home and feels safe returning upon discharge. Patient follows in the community with her therapist at [facility] and Dr. Xander Castillo signed and on chart. She is also finishing up an IOP program at [facility]. HYDROGEN TREATER will coordinate after care and update the AVS. HYDROGEN TREATER then presented patient with a safety plan and explained the purpose for the plan. Patient worked cooperatively with HYDROGEN TREATER to complete the safety plan. Safety plan updated on AVS. Finally, HYDROGEN TREATER asked patient if there was anything else this worker could do at this time. Patient denied any other needs for discharge at this time. Patient was pleasant and cooperative throughout the entirety of this interaction. Case discussed with Dr. Strange and Amena Shi RN. No other immediate discharge needs identified at this time. HYDROGEN TREATER will continue to follow patient and assist with discharge process. Treatment plan willbe reviewed with patient when it becomes available. * Heather Malloy, [employer] - 02/26/2022 9:30 AM EDT [id number] Goal Group: Pt out in TV lounge [...] feeling forgiving this date do to something Iread this morning. Pt went on to share a quote from a book that she had been reading and the quotefocused on forgiveness. PT shared that she had been feeling guilty and the quote helped her to see that she needed to forgive herself in order to heal. PT set goal for the day of forgive myself because it is important for my mental health and I truly want to get better . Steps set by pt were measurable and related well to goal. 2140-7270 Life Skills: PT presented with focus of group and activity related to balancing emotions.PT willing to work with group to complete work sheet to learn 8 positive ways to better manage emotions. PT highly involved in the group and in processing. Pt taking notes throughout group and sharing how she would use the skills to help self and family when at home. Affect bright and pleasant, pt appreciation for time spent and information learned. * Deyanira Andres RN - 02/26/2022 7:31 AM EDT 0731 Pt sitting in lounge Pt advises [...] mouth check completed. Pt proceeds back to [facility] to sit and watch televisionwith female peer. Denies needs. 0935 Pt sitting in lounge watching television. Pt calm, social with peers. 0940 Pt attending group 1110 [facility]. Pt calm, appropriate. 1158 Dr. Strange making rounds, meeting with pt 1302 Pt at nurses' station. Pt requesting prn Hydroxyzine po for anxiety she rates 6/10. Pt states I have a little anxiety [...] to provide transportation home in personal vehicle. * Sobia Apodaca RN - 02/26/2022 12:12 AM EDT 2330 Patient is resting quietly in bed, [...] present. Will continue observing patient this shift. * Fredi Munoz MD - 02/25/2022 4:32 PM EDT Psychiatry Progress Note Patient Name: Martita Ricketts Admit Date: 3250103 MR #: [id number] : 2000 Perpetual Assessment Martita Ricketts is a 22 y.o. female was seen [...] then developed problems falling asleep and staying asleep.She became more irritable. Her new baby was screaming and crying and she had thoughts about hurtinghim and then immediately had thoughts about suicide. [...] answered. Fredi Munoz MD 02/25/2022 4:32 PM * Ling Srivastava RN - 02/25/2022 3:37 PM EDT 1532- Client at nurse's station asking for coffee. Introduced self to client. Client dressed casually in own clothing. Client appears clean with no body odor noted. Client makes appropriate eye contact and responds appropriately in conversation. Client is social with peers and spends time outside of room. Client interacts appropriately with staff and peers. Client is independent with ADLs and hasa good appetite. Client denies SI/HI/AVH/SIB and agrees to contract for safety. Client denies depression and anxiety, rating them as 0/10. Client states she's feeling really good today and has a brighter affect. Client attended groups and interacted appropriately. Client given coffee. Client denies any further needs at this time. [facility]. Will continue to monitor for safety. 1930- Client asked for popcorn, made popcorn for client. 2129- Client resting comfortably with adequate linen. Respirations deep, even, unlabored. * NOA Karimi - 02/25/2022 2:30 PM EDT Recreational Therapy: Pt attended group learning new group activity of Emily Bashir; requiring creative thinking and encouraging group bonding and laughter. Pt actively participated, affect brightenedduring play. Several times pt voiced appreciation for group. Pt pleasant, engaged in laughter * NOA Karimi - 02/25/2022 9:45 AM EDT Goal Group: Pt attended group stating feeling [...] worksheet. Pt was attentive and offered feedback. * Cinthya Carbajal RN - 02/25/2022 7:30 AM EDT 07:30- Pt. Is resting quietly at this time. Resp.regular and non-labored. Pt. Without any observed needs noted. Will continue to monitor. 08:05- Pt. Is sitting in lounge area at this time. Pt. Is eating breakfast. Pt. Is with full affectat this time. Pt.. is dressed in casual [...] watching TV. Pt. Without further needs noted. * Sobia Apodaca RN - 02/25/2022 2:41 AM EDT 2330 Patient is resting quietly in bed with even respirations. 0200 Patient is resting quietly in bed, lying on patient's left side. 0400 Patient continues resting quietly in bed with even respirations. 0600 Patient has rested quietly in bed approximately .8 hours to present. Will continue to observe patient this shift. * Bob Ho - 02/24/2022 7:56 PM EDT 0 - 1929 Exercise Group - Pt lying in bed when approached about attending group, Pt brought selfto group willingly. Pt participated in group walking on the treadmill and playing ping pong with staff and peer. Pt interacted well with others. Pt was friendly, pleasant, and appropriate during group. Pt was receptive with the activities. * Fredi Munoz MD - 02/24/2022 4:28 PM EDT Psychiatry Progress Note Patient Name: Martita Ricketts Admit Date: 3250103 MR #: [id number] : 2000 Perpetual Assessment Martita Ricketts is a 22 y.o. female was seen [...] then developed problems falling asleep and staying asleep.She became more irritable. Her new baby was screaming and crying and she had thoughts about hurtinghim and then immediately had thoughts about suicide. [...] answered. Fredi Munoz MD 02/24/2022 4:28 PM * Ling Srivastava RN - 02/24/2022 3:34 PM EDT 1531- Client at nurse's station asking for [...] nothing in particular raised her anxiety, just thinkingabout a lot of things. Client denies SI/HI/AVH/SIB and agrees to contract for safety. Client dressed casually in own clothing. Client appears clean with no body odor noted. Client makes appropriate eye contact and responds appropriately in conversation. Client is seclusive to room thought comes outnow and then for groups. Client interacts appropriately with staff and peers. Client is independentwith ADLs and has a good appetite. Client denies any further needs at this time. Client appears calm, pleasant, and euthymic. Client denies any further needs at this time. Client given phone and leftheading to room. 2218- Client at nurse's station asking for atarax, benadryl, and ibuprofen. Identified client by name, , and wristband. Administered medication as per physician order. Client tolerated medication with a cup of water. No medication noted upon inspection of oral cavity. Client denies any further needs at this time. Client left heading to room. * NOA Karimi - 02/24/2022 2:45 PM EDT Recreational Therapy: Pt attended group engaging in learning new leisure outlet of [employer] encouraging brainstorming, quick thinking, communication skills, laughter and camaraderie. Pt actively participated, putting forth good effort. Pt engaged in smiling and laughter. Pt participated in group discussion regarding the importance of leisure. * Cinthya Carbajal RN - 02/24/2022 7:30 AM EDT 07:30- Pt. Is resting quietly in bed at this time. Resp. Regular and non- labored. Pt. Without any observed needs noted. Will continue to monitor for safety. 08:17- Pt. Is eating breakfast in lounge area at this time. Pt. Is dressed in own clothing. Pt. Hasshowered this morning. Pt. With flat affect. Pt. Is not wearing a mask at this time. Pt. Denies need for mask. Pt. Is educated on importance of wearing a mask. Pt. Makes fair eye contact. Pt. Vital signs taken at this time. Pt. Scheduled medications. Taken. Mouth check done. Pt. Is medication compliant. Pt. Does complain of anxiety and depression both at 06/10. Pt. Hopes they get her medications adjusted [...] observed needs noted. Will continue to monitor. * Jorge Fu RN - 02/24/2022 1:06 AM EDT 0030 Orders and labs reviewed, patient resting quiet in bed at beginning of shift, even resp 0615 Rested quiet overnight, appeared to sleep 7 hours, remains resting in room at present * Julia Mckenzie RN - 02/23/2022 9:14 PM EDT 2108 Report received from Indira Tejeda RN and assumed care of pt at this time. Pt moved to room 3316/02. 2125 Pt on phone in hallway. 2156 Pt spending time in lounge. Pt denies any current needs/complaints. 2250 Pt resting in bed awake, resps easy. * Indira Dumont RN - 02/23/2022 4:52 PM EDT 1525: Pt arrived on unit B33C, see admission note from Sandy GARCES at 1537. 1555: Messaged Tiny VITOR to order vitamin and albuterol inhaler. Why were they admitted? Voices telling pt to harm herself and her baby. From: [place] ED Admitting physician and diagnosis: Dr. Strange, MDD. Behavior, thought process, SI/HI/AH/VH, mood, affect: Pt is calm and cooperative at this time. Pt denies any current hallucinations but states she was hearing voices telling her to harm herself and her baby a couple days ago. Pt denies current SI/HI/VH/AH stating, It's a relief that I'm not havingthose thoughts right now. Pt contracts for safety. [...] resistant environment, 15 minute checks, platform bed unlessordered d/t medical necessity. Patient may wear own clothes per protocol free of ties and strings. 164: Called Dr. Strange to receive admission orders and order for benadryl for sleep. 3: Pt given 600 mg ibuprofen for 6/10 headache, mouth check completed. Pt educated on abilify and signed consent for this med at this time. 1827: Pt given 50 mg atarax for 1010 anxiety, mouth check completed. 1927: Pt states the atarax did help her anxiety and the ibuprofen helped her headache, rates 3/10. Pt states she has been sleeping on and off for the past couple hours and she is grateful that she isgetting some sleep. 7: Pt transferred to unit B33B room 16/ at this time with all belongings. * Sandy Ware RN - 02/23/2022 3:34 PM EDT 1525: Pt arrives to unit B33C accompanied by security and transport staff. Voluntary form verified.Pt wheeled to room 3306. Belonging dropped off at nurses station for search. Contraband search complete, none found. Pt cooperative. documented in this [id number] Note* Plan of Care - Deyanira Andres RN - 02/26/2022 8:05 AM EDT Problem: Actual or potential alteration in health [...] need for follow-up care Outcome: Not Addressed [id number] Note* Plan of Care - Ling Srivastava RN - 02/25/2022 3:36 PM EDT Problem: Actual or potential alteration in health [...] intake to meet estimated needs Outcome: Completed [id number] Note* Plan of Care - Cinthya Carbajal RN - 02/25/2022 8:50 AM EDT Problem: Actual or potential alteration in health [...] need for follow-up care Outcome: Partially Met [id number] Note* Plan of Care - Ling Srivastava RN - 02/24/2022 3:54 PM EDT Problem: Actual or potential alteration in health [...] need for follow-up care Outcome: Partially Met [id number] Initial evaluation note* Initial Assessments - Nubia Meyer, [employer] - 02/24/2022 12:15 PM EDT BEHAVIORAL HEALTH EVALUATION REASON FOR ADMISSION: I [...] alone because that is when I have thethoughts LEISURE INTERESTS: walking, driving, listen to music, [...] skills, and planning for life after discharge. [id number] Consult note* Tiny Shi, ACCOUNTING MANAGER CONTROLLER - 02/24/2022 9:26 AM EDTAssociated Order(s): IP CONSULT TO HOSPITALIST [facility] CONSULTATION NOTE Patient Name: Martita Ricketts : 2000 MR #: [id number] Admit Date: 3250103 Physicians: No primary care provider on file. (Family); No ref. provider found (Referring) Martita Ricketts is a 22 y.o. female patient of No primary care provider on file. with history of bipolar II presented with suicidal ideation and homicidal ideation towards her babyand was admitted to the Behavioral Health unit. [facility] consulted by Belgica Strange MD for medical management.Medical clearance and cranial nerve evaluation completed. Suicidal ideation Depression Management by attending physician Belgica Strange MD Post anemia vitamins with iron 3 weeks post Medication Reconciliation: Verified Code Status: Full Code Quality Measures DVT Prophylaxis: ambulatory Guerrero Catheter: none Disposition Discharge Location: home Estimated Discharge Date: tbd Outpatient Testing: none Chief Complaint [facility] consulted by Belgica Strange MD for medical management History of Present Illness Martita Ricketts is a 22 y.o. female patient of No primary care provider on file. with history of bipolar II presented with suicidal ideation and homicidal ideation towards her babyand was admitted to the Behavioral Health unit. [facility] consulted by Belgica Strange MD for medical management.Medical clearance and cranial nerve evaluation completed Martita presented to the ED with depression, suicidal and homicidal Ideation,, 3 weeks post , and 4 days after being discharged for suicidal ideation and overdose from Behavioral health unit.She was at home, and not sleeping well and was irritable and the baby was crying and she thought ofhurting him, then felt suicidal for her thoughts. [...] EDT Patient seen, evaluated and managed by [facility] independently. I was not involved in the care of this patient, but was readily available for consultation if needed by [facility]. [facility] Work Phone: [phone]) 518-419003-26-2022 Consult note* Tiny Shi CNP - 02/24/2022 9:26 AM EDTAssociated Order(s): IP CONSULT TO HOSPITALIST [facility] CONSULTATION NOTE Patient Name: Martita Ricketts : 2000 MR #: [id number] Admit Date: 3250103 Physicians: No primary care provider on file. (Family); No ref. provider found (Referring) Martita Ricketts is a 22 y.o. female patient of No primary care provider on file. with history of bipolar II presented with suicidal ideation and homicidal ideation towards her babyand was admitted to the Behavioral Health unit. [facility] consulted by Belgica Strange MD for medical management.Medical clearance and cranial nerve evaluation completed. Suicidal ideation Depression Management by attending physician Belgica Strange MD Post gómez anemia vitamins with iron 3 weeks post Medication Reconciliation: Verified Code Status: Full Code Quality Measures DVT Prophylaxis: ambulatory Guerrero Catheter: none Disposition Discharge Location: home Estimated Discharge Date: tbd Outpatient Testing: none Chief Complaint [facility] consulted by Belgica Strange MD for medical management History of Present Illness Martita Ricketts is a 22 y.o. female patient of No primary care provider on file. with history of bipolar II presented with suicidal ideation and homicidal ideation towards her babyand was admitted to the Behavioral Health unit. [facility] consulted by Belgica Strange MD for medical management.Medical clearance and cranial nerve evaluation completed Martita presented to the ED with depression, suicidal and homicidal Ideation,, 3 weeks post , and 4 days after being discharged for suicidal ideation and overdose from Behavioral health unit.She was at home, and not sleeping well and was irritable and the baby was crying and she thought ofhurting him, then felt suicidal for her thoughts. [...] EDT Patient seen, evaluated and managed by ACCOUNTING MANAGER CONTROLLER independently. I was not involved in the care of this patient, but was readily available for consultation if needed by ACCOUNTING MANAGER CONTROLLER. * Macy Cowart RD - 02/24/2022 7:51 AM EDTAssociated Order(s): IP CONSULT TO DIETITIAN Nutrition Care [...] BUN, CREATININE, MG, PHOS in the last 72hours. Scheduled Meds: ARIPiprazole 5 mg Oral Daily [...] to follow as needed., while in-house. Office [phone] documented in this [id number] Note* Plan of Care - Cinthya Carbajal RN - 02/24/2022 8:37 AM EDT Problem: Actual or potential alteration in health [...] need for follow-up care Outcome: Partially Met [id number] Consult note* Macy Cowart RD - 02/24/2022 7:51 AM EDT Associated Order(s): IP CONSULT TO DIETITIAN Nutrition [...] BUN, CREATININE, MG, PHOS in the last 72hours. Scheduled Meds: ARIPiprazole 5 mg Oral Daily [...] to follow as needed., while in-house. Office [phone] [id number] Note* Treatment Plan - Belgica Strange MD - 02/23/2022 6:44 PM EDT Behavioral Health Initial Treatment Plan Date: 02/23/2022 Time: 6:44 PM Patient Name: Martita Ricketts Date of : 2000 Sex: Female Admit Date/Time: 02/23/2022 3:26 PM Patient Active Problem List Diagnosis Date Noted Post traumatic stress disorder (PTSD) 02/16/2022 Bipolar II disorder major depressive with onset (HCC) 02/15/2022 Diagnosis [place] I: Bipolar II and PTSD [place] II: No diagnosis [place] III: Patient Active Problem List Diagnosis Date Noted Post traumatic stress disorder (PTSD) 02/16/2022 Bipolar II disorder major depressive with onset (HCC) 02/15/2022 [place] IV: other psychosocial or environmental problems [place] V: 41-50 serious symptoms Reason for Hospitalization [...] psychoeduction, Handouts psychoeducation, Individual psychoeducation, Family education/meeting, Developpersonal safety plan Status Of Goal: Unchanged Patient's [...] Facility Type: Intensive outpatient program, Psychiatric aftercare, [facility] mental health Criteria For Discharge Criteria For Discharge: Maximum benefit obtained, Goals met Additional Comments: Physician, Registered Nurse, Operations Specialist, Adjunct Therapist included in treatment team discussion. Treatment team members present Belgica Strange MD Patient Signature Date Patient's Response To Treatment Plan: Physician Signature Date [id number] History and physical note* Belgica Strange MD - 02/23/2022 6:27 PM EDT Psychiatry History and Physical Patient Name: Martita Ricketts MR #: [id number] : 2000 Admit Date: 3250103 Primary Care Provider: No primary care provider on file. Assessment Martita Ricketts is a 22 y.o. female presenting with suicidal thinking in response to thoughts about harming her baby in the context of mood instability Diagnosis & Plan/Recommendations PRINCIPAL DIAGNOSIS: Bipolar II disorder major depressive with onset (HCC) [place] I: Bipolar II [place] II: Deferred [place] III: see problem list. 3 weeks post [place] IV: Other psychosocial and environmental problems [place] V: 41-50: Serious symptoms OR any serious impairment in social, occupational, or school functioning * Bipolar II disorder major depressive with onset (HCC) Assessment & Plan A: Martita Hastings, as she prefers to be called, was feeling well when she left the unit on Saturday. She was hopeful and optimistic. She then developed problems falling asleep and staying asleep.She became more irritable. Her new baby was screaming and crying and she had thoughts about hurtinghim and then immediately had thoughts about suicide. [...] to . History of Present Illness: Martita Ricketts is a 22 y.o. female with a history of bipolar II type mood disturbance and a significant history of trauma. See previous admission last week for details of her history. She has managed her symptoms quite well in therapy and with medication management untilthe of her first son 3 weeks ago. [...] She also resumed her IOP treatment in [place], where she lives. She continued to feel well until she developed more trouble sleeping. Then she suddenly had strong thoughts/ voices about harming her baby and killing herself.After sleeping in [facility] ED over night, she feels fine again today except for the guilt and anxiety about her mental illness. She has never had psychotic symptoms prior to that one event. No substance abuse. 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 Review of Systems: Constitutional: [...] 4' 8 Wt 75.8 kg (167 lb) LMP/01/2022 SpO2 97% BMI 37.44 kg/m Mental Status [...] answered. Belgica Strange MD 02/23/2022 6:27 PM [id number] History and physical note* Belgica Strange MD - 02/23/2022 6:27 PM EDT Psychiatry History and Physical Patient Name: Martita Ricketts MR #: [id number] : 2000 Admit Date: 3250103 Primary Care Provider: No primary care provider on file. Assessment Martita Ricketts is a 22 y.o. female presenting with suicidal thinking in response to thoughts about harming her baby in the context of mood instability Diagnosis & Plan/Recommendations PRINCIPAL DIAGNOSIS: Bipolar II disorder major depressive with onset (HCC) [place] I: Bipolar II [place] II: Deferred [place] III: see problem list. 3 weeks post [place] IV: Other psychosocial and environmental problems [place] V: 41-50: Serious symptoms OR any serious impairment in social, occupational, or school functioning * Bipolar II disorder major depressive with onset (HCC) Assessment & Plan A: Martita Hastings, as she prefers to be called, was feeling well when she left the unit on Saturday. She was hopeful and optimistic. She then developed problems falling asleep and staying asleep.She became more irritable. Her new baby was screaming and crying and she had thoughts about hurtinghim and then immediately had thoughts about suicide. [...] to . History of Present Illness: Martita Ricketts is a 22 y.o. female with a history of bipolar II type mood disturbance and a significant history of trauma. See previous admission last week for details of her history. She has managed her symptoms quite well in therapy and with medication management untilthe of her first son 3 weeks ago. [...] She also resumed her IOP treatment in [place], where she lives. She continued to feel well until she developed more trouble sleeping. Then she suddenly had strong thoughts/ voices about harming her baby and killing herself.After sleeping in [facility] ED over night, she feels fine again today except for the guilt and anxiety about her mental illness. She has never had psychotic symptoms prior to that one event. No substance abuse. 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 Review of Systems: Constitutional: [...] 4' 8 Wt 75.8 kg (167 lb) LMP/01/2022 SpO2 97% BMI 37.44 kg/m Mental Status [...] MD 02/23/2022 6:27 PM documented in this [id number] Evaluation + Plan note* Assessment & Plan Note - Belgica Strange MD - 02/23/2022 6:21 PM EDT Associated Problem(s): Bipolar II disorder major depressive with onset (HCC) A: Martita Hastings, as she prefers to be called, was feeling well when she left the unit on Saturday. She was hopeful and optimistic. She then developed problems falling asleep and staying asleep.She became more irritable. Her new baby was screaming and crying and she had thoughts about hurtinghim and then immediately had thoughts about suicide. [...] she may have some steep ups and downsand she is more than willing to reach out when she needs help. Plan: Discharge to outpatient follow-up [id number] Note* Plan of Care - Indira Dumont RN - 02/23/2022 5:01 PM EDT Problem: Violence - Risk of, Self/Other-Directed Goal: [...] Able to perform ADL Outcome: Partially Met [id number] Evaluation + Plan noteExtracted from: Title:Clinical Document Author:JUNG SHAH MD Date:01/30/22 Subjective Comfortable with oral Motrin & Tylenol. Ambulant, voiding. good pain control Lochia small. Baby is nursing well. Wants to shower. Objective Looks very well. Independent in room. Moving easily. CVS: RRR Lungs: CTA B Abdomen: Soft, uterus firm at U. Dressing clean and dry Extremities: Nontender with 1+ edema VITALS KymoviYjnxECZieueYLOnU5MZZ5TvtpKh(kg) 01/30 08:2736.8124/153636589GQ23/28 80.0 01/30 06:00--125/76959628ZR 01/30 04:1237.1117/40355665FA 01/30 02:0736.8117/39738312ZV 01/30 00:3136.8132/16376457GQ 24 Hr Tmax: 37.1 at 01/30 04:12 [...] 01/29/22 9:35:00 EST, Dose = 1 spray(s), [place], Perineum, q1h, PRN, Other (see order comments) [...] Problems (18) ADD - Attention deficit disorder (158243600) Anxiety (14563187) Asthma (683389016) Chest tightness (696719243) Decreased vitamin D (804385333) Depression (629738684) Diabetes mellitus type 2 (334962103) Dizziness (9409898399) H/O: migraine (393474091) Hyperemesis gravidarum (86111599) Insomnia (962102753) Left ear impacted cerumen (58425248) Migraines (94073493) Nausea (0716915909) (054494697) S/P section (388416467) Sinus arrhythmia (760326380) Traumatic brain injury (583363) ASSESSMENT/PLAN: POD #1 after primary elective for clinically inadequate pelvis Intractable Nausea antepartum- resolved Anemia - antepartum and post-op. well adjusted. CT support. May go home this pm if desired. Extracted from: Title:Clinical Document Author:SUMMER ROSA MD Date:01/29/22 [facility] ADMISSION HISTORY AN D PHYSICIAL CHIEF COMPLAINT: 1 para 0 with uncomplicated 39-week but with clinically unfavorable pelvis. Patient elects for primary section versus trial of labor. HISTORY OF PRESENT ILLNESS: Uncomplicated REVIEW OF SYSTEMS: No significant positives ACTIVE PROBLEMS: (18) ADD - Attention deficit disorder (185090844) Anxiety (34229388) Asthma (798595190) Chest tightness (180332363) Decreased vitamin D (152592644) Depression (875379642) Diabetes mellitus type 2 (963105688) Dizziness (0930647011) H/O: migraine (053096279) Hyperemesis gravidarum (93995076) Insomnia (125318069) Left ear impacted cerumen (01078667) Migraines (25397786) Nausea (7345435191) (921760773) S/P section (823424631) Sinus arrhythmia (561741962) Traumatic brain injury (828154) MEDICATIONS: Active Inpt Meds: .PharmacyCommunication (Pharmacy See [...] 01/29/22 9:35:00 EST, Dose = 1 spray(s), [place], Perineum, q1h, PRN, Other (see order comments) [...] and supportive home environment PHYSICAL EXAM: VITALS: GkboqaAzrdFJLtucgVHSfI0TZH2YhtjPb(kg) 01/29 10:51--132/86358767--73/28 80.0 01/29 10:40--132/361594184-- 01/29 10:2536.7139/83485008-- 01/29 10:11--143/73371228-- 01/29 10:10--126/13886479-- 24 Hr Tmax: 36.7 at 01/29 10:25 [...] RBC3.75L Hgb10.4L Hct30.4L MCV81.1 MCH27.6 MCHC34.0 RDW14.8H Sfctdnxz523 MPV9.6 Neutrophil %80.1H DIAGNOSTICS: Category 1 heart rate tracing IMPRESSION: 1 para 0 at 39 weeks estimated gestational age with unfavorable pelvis for scheduled low transverse section. PLAN: Primary section. Future Appointments Appointment Date:02/05/2022 11:00:00 AM Scheduled Provider:SUMMER ROSA MD Location:[facility] Appointment Type: OV Post Op Future Scheduled Tests Laboratory* Panel (AO) 07/21/21 Radiology* US OB < 14 weeks 06/07/21 [facility] 02-28-2022 Hospital Discharge instructions Patient Education 01/29/2022 09:40:49 7b- Depression and Blues (09/2020)(CUSTOM) [place] Depression and Blues All mothers are at [...] psychosis. Often, a screening tool called the [place] Depression Scale is used to diagnose depression [...] music. Avoid alcohol. Ask for help with tilting saw operator, cooking, grocery shopping, or running errands as needed. Do nottry to do everything. Talk to people close to you about how you are feeling. Get support from your partner, family members, and friends. Try to stay positive in how you think. Think about the things you are grateful for. Do not spend a lot of time alone. Only take uqpk-rty-gnxolqp or prescription medicine as directed by your [...] not doing well or get worse. Resource: [facility] Patient Information 2015 [employer]. This information is not intended to replace [...] Follow these instructions at home: Medicines Take tszi-smv-xxxmbob and prescription medicines only as told by [...] 03/15/2006 Document Revised: 08/07/2019 Document Reviewed: 11/19/2017 [employer] Patient Education 2020 [employer]. 01/29/2022 09:40:25 Delivery, Care After Delivery, Care [...] and water are not available, use hand settlement worker. ?If you have a dressing, change it [...] this until your incision heals. Medicines Take ipie-ayk-rujqvrh and prescription medicines only as told by [...] 08/10/2003 Document Revised: 05/27/2019 Document Reviewed: 05/27/2019 [employer] Patient Education 2020 [employer]. Follow Up Care 01/15/2022 08:51:03 With:SHELLEY MACIAS, SUMMER Ulloa Address: [address] [place] [address] [place] [address]- [phone] When: Unknown Comments:Ensure followup appointment one week after delivery [facility] 02-09-2022 Hospital Discharge instructions Patient Education 01/10/2022 16:10:53 [facility] Out[facility] ([facility]) [facility] OUTPATIENT HOME-GOING INSTRUCTIONS _X_ [...] crackers, bananas, Jell-O, cooked carrots, applesauce. ___ [place]ley diet. Avoid caffeine, chocolate, alcohol, spiced/greasy foods. [...] the nearest Emergency Room for assistance. Form [id number] D: 11/09 Follow Up Care 01/10/2022 13:50:32 With:GISELE YANG Address:Unknown When:3-7 days [facility] 02-06-2022 Hospital Discharge instructions Patient Education 01/07/2022 15:55:12 [facility] ([facility]) [facility] OUTPATIENT HOME-GOING INSTRUCTIONS _X_ [...] crackers, bananas, Jell-O, cooked carrots, applesauce. ___ Motley diet. Avoid caffeine, chocolate, alcohol, spiced/greasy foods. [...] the nearest Emergency Room for assistance. Form [id number] D: 11/09 Follow Up Care 01/07/2022 11:54:24 With:SUMMER ROSA MD Address: [phone] When:01/09/2022 16:15:00 [facility] 01-12-2022 Hospital Discharge instructions Patient Education 12/13/2021 16:58:21 7 - Labor and Delivery Outpatient Instructions(CUSTOM) [facility] OUTPATIENT HOME-GOING INSTRUCTIONS _X_ You are to follow up with your physician as scheduled ACTIVITY ___ Bedrest _X__Activity as tolerated ___ No work/school for ___ days. ___Other PRESCRIPTION GIVEN _X__Yes __[facility] to [facility] NAUSEA/VOMITING ___ Take small, frequent amounts of clear liquids. Avoid fruit juices and milk. ___ Increase fluid intake to a minimum of 8 ounces of fluid every hour while awake. ___ Soft diet. Rice, crackers, bananas, Jell-O, cooked carrots, applesauce. ___ Motley diet. Avoid caffeine, chocolate, alcohol, spiced/greasy foods. [...] the nearest Emergency Room for assistance. Form [id number] D: 11/09 Document Released: 11/18/2006 Document Revised: 11/06/2012 Document Reviewed: 11/18/2006 [facility] Patient Information 2012 [employer]. Follow Up Care 12/13/2021 15:25:06 With:SUMMER ROSA Address: [address] [place] [address]- [phone] Business (1) When: Unknown Comments:Follow-up as scheduled [facility] 11-12-2021 Hospital Discharge instructions Patient Education 10/13/2021 17:05:12 7 - Labor and Delivery Outpatient Instructions (CUSTOM) [facility] OUTPATIENT HOME-GOING INSTRUCTIONS _X_ [...] crackers, bananas, Jell-O, cooked carrots, applesauce. ___ [place]ley diet. Avoid caffeine, chocolate, alcohol, spiced/greasy foods. [...] the nearest Emergency Room for assistance. Form [id number] D: 11/09 Document Released: 11/18/2006 Document Revised: 11/06/2012 Document Reviewed: 11/18/2006 [employer] Patient Information 2012 [employer]. Follow Up Care 10/13/2021 16:36:25 With:JUNG SHAH MD Address: [phone] When: Unknown Comments:Follow-up as scheduled [facility] 10-20-2021 Evaluation + Plan noteExtracted from: Title:Clinical Document Author:JUNG SHAH MD Date:09/20/21 Subjective Patient in shower. Per nursing, patient has not had one emesis since admission. Objective see vital s VITALS JhdrdhZjjjTXBcvclLRZqC9KIN0ZymkQx(kg) 09/20 07:4436.8107/762424--ED48/89695.0 09/20 00:1236.7108/402703--EY 09/19 16:1036.8116/653822--GX 09/19 09:48--119/696120--DD 09/19 09:4736.7--------RA 24 Hr Tmax: 36.8 at [...] Problems (15) ADD - Attention deficit disorder (976890046) Anxiety (70029419) Asthma (678947848) Chest tightness (904881444) Decreased vitamin D (975368412) Depression (813198691) Dizziness (4129707714) H/O: migraine (530910977) Insomnia (887123876) Left ear impacted cerumen (89116163) Migraines (62592384) Nausea (6436794508) (417553689) Sinus arrhythmia (882975942) Traumatic brain injury (026134) ASSESSMENT/PLAN: Home on scheduled Reglan , Zofran and FU within a week. Extracted from: Title:Clinical Document Author:RICHARD VARGAS RN-CNM Date:09/19/21 [facility] ADMISSION HISTORY A [place] PHYSICIAL CHIEF COMPLAINT: [...] PROBLEMS: (15) ADD - Attention deficit disorder (755737591) Anxiety (88555915) Asthma (873968947) Chest tightness (133113229) Decreased vitamin D (352014816) Depression (769300026) Dizziness (6128031341) H/O: migraine (162660780) Insomnia (030024824) Left ear impacted cerumen (55753380) Migraines (98445724) Nausea (1592456222) (879619847) Sinus arrhythmia (643544139) Traumatic brain injury (819565) MEDICATIONS: Active Inpt Meds: cefTRIAXone (Rocephin) Start: [...] 125 mL/hr ALLERGIES: (1) penicillin 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 HISTORY: single, denies Tobacco, ETOH PHYSICAL EXAM: VITALS: BkeaffNtzxCNUkrqcVMGjL3TDW2HvrwVc(kg) 09/19 16:1036.8116/215432----53/60012.0 09/19 09:48--119/224970---- 09/19 09:4736.7 24 Hr Tmax: 36.8 at [...] Ratio1.0L Creatinine Lvl (s)0.57 Bili Direct<0.1 Globulin3.4 ALT/EZCO83Z Bdcuoexf814 Bili Total0.2 BUN/Creatinine Ratio12 GFR Ivgepqsy683 A/G Ratio1.0L Total Protein6.6 AJ635B Bili IndirectSee Flowsheet Alk Phos98 Calcium Lvl9.0 GFR Non- Cimbplap613 Bili Total0.2 Glucose Level79 Albumin Level3.3L Electrolyte Zcmeifc24.0 AST/SGOT28 Total Protein6.7 Alk Phos97 Sodium Jncaf431 Globulin3.3 BUN7 ALT/GEES10I Albumin Level3.3L AST/SGOT28 MCV86.3 MPV9.1 Monocyte %5.6 Eosinophil, Absolute0.10 WBC10.60 MCH29.0 Eosinophil %1.3 Basophil, Absolute0.00 RBC3.87L MCHC33.6 Basophil %0.4 Hgb11.2L RDW13.1 Neutrophil %80.6H Lymphocyte, Absolute1.30 Neutrophil, Absolute8.50H Hct33.4L Lymphocyte %12.1 Irysqksk785 Monocyte, Absolute0.60 UA BloodSee Flowsheet UA Leuk [...] Radiology* US OB < 14 weeks 06/07/21 [facility] 10-20-2021 Hospital Discharge instructions Patient Education 09/20/2021 [...] sour. Examples include lemonade, kathleen allyssa, lemon chefornak soda, ice water, and sparkling water. ?[place] your teeth or use a mouth rinse after meals. ?Talk with your health care provider about starting a supplement of vitamin B6. General instructions Take dfyw-mpz-axilnjf and prescription medicines only as told by [...] 11/18/2006 Document Revised: 12/08/2018 Document Reviewed: 07/17/2017 [employer] Patient Education 2020 [employer] 09/20/2021 09:07:59 [facility] Outpatient Instructions ([facility]ORN) [...] crackers, bananas, Jell-O, cooked carrots, applesauce. _X__ [place] diet. Avoid caffeine, chocolate, alcohol, spiced/greasy foods. [...] the nearest Emergency Room for assistance. Form [id number] D: 11/09 Follow Up Care 09/19/2021 09:42:13 With:JUNG SHAH MD Address: [phone] When:09/27/2021 [facility] 08-20-2021 Evaluation + Plan note Future Scheduled Tests Laboratory* Panel (AO) 07/21/21 Radiology* US OB < 14 weeks 06/07/21 [facility] 01-18-2015 History of Past illness Narrative* Problem Noted Date Resolved Date Suicidal risk 12/19/2014 02/18/2017 Vesicoureteral reflux, unspe cified or without reflux nephropathy 09/04/2006 05/10/2012 Urinary frequency 08/20/2006 05/10/2012 Open fracture of phalanx or phalanges of hand, u nspecified 05/25/2003 05/10/2012 Other congenital deformity of hip (joint) 200105/10/2012 documented as of this encounter (statuses as of 03/06/2023) [facility] History of Past illness Narrative* Problem Noted Date Diagnosed Date Resolved Date Suicidal risk 12/19/2014 02/18/2017 Vesicoureteral reflux, unspe cified or without reflux nephropathy 09/04/2006 05/10/2012 Urinary frequency 08/20/2006 05/10/2012 Open fracture of phalanx or phalanges of hand, unspecified 05/25/2003 05/10/2012 Other congenital deformity of hip (joint) 11/20/2002 05/10/2012 documented as of this encounter (statuses as of 07/20/2023) [facility] Future [facility]ments Appointment Date:09/19/2021 09:00:00 AM Scheduled Provider:RICHARD VARGAS Location:[facility] Appointment Type: OV OB Routine Follow Up Future Scheduled Tests Laboratory* Panel (AO) 07/21/21 Radiology* US OB < 14 weeks 06/07/21 [facility] Evaluation + Plan note Future Appointments Appointment Date:10/17/2021 10:30:00 AM Scheduled Provider:JUNG SHAH MD Location:[facility] Appointment Type: OV OB Routine Follow Up Future Scheduled Tests Laboratory* Panel (AO) 07/21/21 Radiology* US OB < 14 weeks 06/07/21 [facility] IR Diagnostyxaluation + Plan note Future Appointments Appointment Date:10/31/2021 10:00:00 AM Scheduled Provider:RICHARD VARGAS Location:[facility] Appointment Type: OV Future Scheduled Tests Laboratory* Panel (AO) 07/21/21 Radiology* US OB < 14 weeks 06/07/21 [facility] Evaluation + Plan note Future Appointments Appointment Date:12/18/2021 08:45:00 AM Scheduled Provider:SUMMER ROSA MD Location:[facility] Appointment Type: OV OB Routine Follow Up Future Scheduled Tests Laboratory* Panel (AO) 07/21/21 Radiology* US OB < 14 weeks 06/07/21 [facility] Evaluation + Plan note Future Appointments Appointment Date:12/18/2021 08:45:00 AM Scheduled Provider:SUMMER ROSA MD Location:[facility] Appointment Type: OV OB Routine Follow Up Diagnostic Tests Pending * Urine Culture 12/13/21 Future Scheduled Tests Laboratory* Panel (AO) 07/21/21 Radiology* US OB < 14 weeks 06/07/21 [facility] evaluation + Plan note Future Appointments Appointment Date:01/09/2022 04:15:00 PM Scheduled Provider:RICHARD VARGAS Location:[facility] Appointment Type: OV OB Routine Follow Up Future Scheduled Tests Laboratory* Panel (AO) 07/21/21 Radiology* US OB < 14 weeks 06/07/21 [facility] evaluation + Plan note Future Appointments Appointment Date:01/15/2022 08:30:00 AM Scheduled Provider:SUMMER ROSA MD Location:[facility] Appointment Type: OV OB Routine Follow Up Future Scheduled Tests Laboratory* Panel (AO) 07/21/21 Radiology* US OB < 14 weeks 06/07/21 [facility] evaluation + Plan note Future Appointments Appointment Date:01/22/2022 09:45:00 AM Scheduled Provider:SUMMER ROSA MD Location:[facility] Appointment Type: OV OB Routine Follow Up Future Scheduled Tests Laboratory* Panel (AO) 07/21/21 Radiology* US OB < 14 weeks 06/07/21 [facility] evaluation note* Diagnosis Bipolar II disorder major depressive with onset (HCC)- Primary Mental disorders of mother, documented in this encounter [facility] note* Diagnosis Bipolar I disorder with depression (HCC)- Primary documented in this encounter [facility] note* Diagnosis Bipolar II disorder major depressive with onset (HCC)- Primary [facility] disorders of [facility], [facility] Diagnosis Bipolar 1 disorder, mixed, moderate (HCC)- Primary documented in this encounter [facility] note* Diagnosis Bipolar 1 disorder, mixed, moderate (HCC) [facility] Bipolar 1 disorder, mixed, moderate (HCC) [facility] Diagnosis Bipolar 1 disorder, mixed, moderate (HCC)- Primary Bipolar I disorder with depression (HCC) documented in this encounter [facility] note* Diagnosis Bipolar 1 disorder, mixed, moderate (HCC) documented in this encounter [facility] note* Diagnosis Schizoaffective disorder, bipolar type (HCC)- Primary Schizoaffective disorder, unspecified condition Depression, unspecified depression type Acute UTI Urinary tract infection, site not specified Schizoaffective disorder (HCC) Schizoaffective disorder, unspecified condition documented in this encounter [facility] note* Diagnosis Schizoaffective disorder, bipolar type (HCC)- Primary Schizoaffective disorder, unspecified condition documented in this encounter [facility] note* Diagnosis Strep pharyngitis- Primary Streptococcal sore throat Throat pain documented in this encounter [facility] note* Diagnosis Bipolar 1 disorder, mixed, moderate (HCC)- Primary documented in this encounter [facility] note* Diagnosis Vitamin D deficiency Morbid obesity with BMI of 40.0-44.9, adult (HCC) Gastroesophageal reflux disease without esophagitis Esophageal reflux Prediabetes Other abnormal glucose documented in this encounter [facility] note* Diagnosis Gastroesophageal reflux disease without esophagitis Esophageal reflux Prediabetes Other abnormal glucose Morbid obesity with BMI of 40.0-44.9, adult (HCC) Vitamin D deficiency documented in this encounter [facility] note* Diagnosis Gastroesophageal reflux disease without esophagitis Esophageal reflux Prediabetes Other abnormal glucose Morbid obesity with BMI of 40.0-44.9, adult (HCC) Vitamin D deficiency documented in this encounter [facility] note* Diagnosis Gastroesophageal reflux disease without esophagitis Esophageal reflux Prediabetes Other abnormal glucose Morbid obesity with BMI of 40.0-44.9, adult ([facility]) Vitamin D deficiency documented in this encounter [facility] note* Diagnosis Gastroesophageal reflux disease without esophagitis Esophageal reflux Prediabetes Other abnormal glucose Morbid obesity with BMI of 40.0-44.9, adult ([facility]) Vitamin D deficiency documented in this encounter [facility] note* Diagnosis Low vitamin B12 level- Primary Low vitamin D level Gastro-esophageal reflux disease without esophagitis documented in this encounter [facility] note* Diagnosis Snoring- Primary Other dyspnea and respiratory abnormality Gastro-esophageal reflux disease without esophagitis [facility] Diagnosis Prediabetes- Primary Other abnormal glucose Gastro-esophageal reflux disease without esophagitis documented in this encounter [facility] note* Diagnosis Gastroesophageal reflux disease without esophagitis Esophageal reflux Prediabetes Other abnormal glucose Morbid obesity with BMI of 40.0-44.9, adult ([facility]) Vitamin D deficiency Gastro-esophageal reflux disease without esophagitis documented in this encounter [facility] note* Diagnosis Bipolar 1 disorder, mixed, moderate (HCC)- Primary documented in this encounter [facility] note* Diagnosis Morbid obesity due to excess calories (HCC)- Primary Pre-diabetes Other abnormal glucose Gastro-esophageal reflux disease without esophagitis documented in this encounter [facility] note* Diagnosis Acute pain of left knee- Primary documented in this encounter [facility] note* Diagnosis Schizoaffective disorder, bipolar type with good prognostic features (HCC)- Primary Bipolar 1 disorder, mixed, moderate (HCC) documented in this encounter [facility] note* Diagnosis Schizoaffective disorder, bipolar type with good prognostic features (HCC)- Primary Bipolar 1 disorder, mixed, moderate (HCC) documented in this encounter [facility] note* Diagnosis Morbid obesity due to excess calories (HCC)- Primary Pre-diabetes Other abnormal glucose Gastro-esophageal reflux disease without esophagitis documented in this encounter [facility] note* Diagnosis PVC (premature ventricular contraction)- Primary Other premature beats Shortness of breath Morbid obesity with BMI of 40.0-44.9, adult ([facility]) Preoperative clearance Unspecified pre-operative examination Prediabetes Other abnormal glucose Gastro-esophageal reflux disease without esophagitis documented in this encounter [facility] note* Diagnosis Gastro-esophageal reflux disease without esophagitis Mild intermittent asthma, unspecified whether complicated- Primary documented in this encounter [facility] note* Diagnosis Shortness of breath PVC (premature ventricular contraction) Other premature beats Mild intermittent asthma, unspecified whether complicated- Primary documented in this encounter [facility] note* Diagnosis Gastro-esophageal reflux disease without esophagitis- Primary Morbid (severe) obesity due to excess calories (HCC) Body mass index (BMI) 40.0-44.9, adult ([facility]) Vitamin D deficiency, unspecified Prediabetes Other abnormal glucose Mild intermittent asthma, unspecified whether complicated- Primary documented in this encounter [facility] note* Diagnosis Mild intermittent asthma, unspecified whether complicated- Primary Morbid obesity with BMI of 40.0-44.9, adult ([facility]) Sleep disorder Unspecified sleep disturbance documented in this encounter [facility] note* Diagnosis Prediabetes- Primary Other abnormal glucose documented in this encounter [facility] note* Diagnosis Morbid obesity due to excess calories ([facility])- Primary Pre-diabetes Other abnormal glucose documented in this encounter [facility] note* Diagnosis Schizoaffective disorder, bipolar type ([facility])- Primary Schizoaffective disorder, unspecified condition Schizoaffective disorder, bipolar type ([facility]) Schizoaffective disorder, unspecified condition Long-term use of high-risk medication documented in this encounter [facility] note* Diagnosis H. pylori infection- Primary Helicobacter pylori (H. pylori) documented in this encounter [facility] note* Diagnosis H. pylori infection- Primary Helicobacter pylori (H. pylori) documented in this encounter [facility] note* Diagnosis Gastroesophageal reflux disease without esophagitis Esophageal reflux Prediabetes Other abnormal glucose Morbid obesity with BMI of 40.0-44.9, adult ([facility]) Vitamin D deficiency Pre-operative laboratory examination Pre-procedural laboratory examination Encounter for tobacco use screening Gastroesophageal reflux disease without esophagitis Esophageal reflux Prediabetes Other abnormal glucose Morbid obesity with BMI of 40.0-44.9, adult ([facility]) Vitamin D deficiency Gastroesophageal reflux disease without esophagitis Esophageal reflux Prediabetes Other abnormal glucose Morbid obesity with BMI of 40.0-44.9, adult ([facility]) Vitamin D deficiency documented in this encounter [facility] note* Diagnosis Shortness of breath PVC (premature ventricular contraction) Other premature beats documented in this encounter [facility] note* Diagnosis Acute pain of right shoulder- Primary Acute pain of right shoulder documented in this encounter [facility] note* Diagnosis Acute pain of right shoulder documented in this encounter [facility] note* Diagnosis Irritable bowel syndrome with constipation- Primary Irritable bowel syndrome documented in this encounter [facility] note* Diagnosis Corneal abrasion due to contact lens, right- Primary documented in this encounter [facility] note* Diagnosis Acute cough- Primary Muscle spasm of back Other symptoms referable to back Acute cough documented in this encounter [facility] note* Diagnosis Acute cough documented in this encounter [facility] note* Diagnosis Eloped from emergency department- Primary Left against medical advice [facility] Daniella (HCC)- Primary Bipolar I disorder, single manic episode, unspecified [facility] N[facility] No data available for this section [facility] Discharge instructions No data available for this section [facility] Discharge instructions* Attachments The following attachments cannot be sent through Care Everywhere. * Upper GI Endoscopy Discharge Instructions (Khmer) [facility] No data available for this section [facility] Reason for referral (narrative)* Consultation (Routine) - Pending Review Specialty Diagnoses / Procedures Referred By Zenon dahl Referred To Contact Pulmonary Disease / Pulmonology Diagnoses Prediabetes Morbid obesity with BMI of 40.0-44.9, adult (HCC) Procedures [place] OFFICE/OUTPATIENT NEW HIGH MDM 60-74 MINUTES Jeremy Helton APRN - ACCOUNTING MANAGER CONTROLLER [address] [place] [address] [facility] [address] [place] [address] Referral ID Status Reason Start Date Expiration Date Visits Requested Visits Authorized [id number] Pending Review Specialty Services Required 05/20/2023 05/19/2024 1 1 * Consultation (Elective) - Pending Review Specialty Diagnoses / Procedures Referred By Zenon dahl Referred To Contact Cardiology Diagnoses Prediabetes Morbid obesity with BMI of 40.0-44.9, adult (HCC) Procedures [place] OFFICE/OUTPATIENT NEW HIGH MDM 60-74 MINUTES Jeremy Helton APRN - ACCOUNTING MANAGER CONTROLLER [address] [place] [address] [facility] Cf Card [address] [place] [address] Referral ID Status Reason Start Date Expiration Date Visits Requested Visits Authorized [id number] Pending Review Specialty Services Required 05/20/2023 05/19/2024 1 1 [facility] for referral (narrative)* Consultation (Routine) - Pending Review Specialty Diagnoses / Procedures Referred By Contac t Referred To Contact Sleep Medicine Diagnoses Snoring Procedures [place] OFFICE/OUTPATIENT NEW HIGH MDM 60-74 MINUTES Miguelangel Green MD [address] [place] [address] [facility] [address] [place] [address] Referral ID Status Reason Start Date Expiration Date Visits Requested Visits Authorized [id number] Pending Review Specialty Services Required 06/13/2023 06/12/2024 1 1 [facility] for referral (narrative)* Diagnostic Procedure Only (Urgent) - Pending Review Specialty Diagnoses / Procedures Referred By Contac t Referred To Contact XR IMAGING Diagnoses Acute pain of left knee Procedures XR KNEE GENERAL 4V AP BOTH/PA BOTH/LAT/MERC LEFT RADIOLOGIC EXAM KNEE COMPLETE 4/MORE VIEWS Magda Guzman, FREELANCE WRITER.ACCOUNTING MANAGER CONTROLLER [address] [place] [address] [place] [id number] Referral ID Status Reason Start Date Expiration Date Visits Requested Visits Authorized [id number] Pending Review Auto-Generat ed Referral 07/20/2023 08/18/2024 1 1 [facility] for referral (narrative)* Consultation (Routine) - Pending Review Specialty Diagnoses / Procedures Referred By Contac t Referred To Contact Pulmonary Disease / Pulmonology Diagnoses Prediabetes Morbid obesity with BMI of 40.0-44.9, adult (HCC) Procedures [place] OFFICE/OUTPATIENT NEW HIGH MDM 60-74 MINUTES Jeremy Helton FREELANCE WRITER - ACCOUNTING MANAGER CONTROLLER [address] [place] [address] [facility] [address] [place] [address] Referral ID Status Reason Start Date Expiration Date Visits Requested Visits Authorized [id number] Pending Review Specialty Services Required 05/20/2023 05/19/2024 1 1 * Consultation (Elective) - Pending Review Specialty Diagnoses / Procedures Referred By Contac t Referred To Contact Cardiology Diagnoses Prediabetes Morbid obesity with BMI of 40.0-44.9, adult (HCC) Procedures AK OFFICE/OUTPATIENT NEW HIGH MDM 60-74 MINUTES Jeremy Helton APRN - ACCOUNTING MANAGER CONTROLLER [address] [place] [address] [facility] Card [address] [place] [address] Referral ID Status Reason Start Date Expiration Date Visits Requested Visits Authorized [id number] Pending Review Specialty Services Required 05/20/2023 05/19/2024 1 1 [facility] for referral (narrative)* Diagnostic Procedure Only (Urgent) - Closed Specialty Diagnoses / Procedures Referred By Contac t Referred To Contact XR IMAGING Diagnoses Acute pain of right shoulder Procedures XR SHOULDER GENERAL 3V OR MORE AP/TRUE AP/OTHER RIGHT RADEX SHOULDER COMPLETE MINIMUM 2 VIEWS David Carreon APRN.ACCOUNTING MANAGER CONTROLLER [address] [place] [address] [place] [address] Referral ID Status Reason Start Date Expiration Date V isits Requested Visits Authorized [id number] Closed Auto-Generate d Referral 06/11/2024 07/11/2025 1 1 [facility] for referral (narrative)* Diagnostic Procedure Only (Urgent) - Closed Specialty Diagnoses / Procedures Referred By Contac t Referred To Contact XR IMAGING Diagnoses Acute pain of right shoulder Procedures XR SHOULDER GENERAL 3V OR MORE AP/TRUE AP/OTHER RIGHT RADEX SHOULDER COMPLETE MINIMUM 2 VIEWS David Carreon APRN.ACCOUNTING MANAGER CONTROLLER [address] [place] [address] [place] [address] Referral ID Status Reason Start Date Expiration Date V isits Requested Visits Authorized [id number] Closed Auto-Generate d Referral 06/11/2024 07/11/2025 1 1 [facility] for visit Narrative* Auth/Cert Specialty Diagnoses / Procedures Referred By Contac t Referred To Contact Diagnoses Major depression Bipolar II disorder major depressive with onset (HCC) Referral ID Status Reason Start Date Expiration Date Visits Re quested Visits Authorized [id number] 1 1 [facility] for visit Narrative* Diagnostic Procedure Only (Urgent) - Closed Specialty Diagnoses / Procedures Referred By Contac t Referred To Contact XR IMAGING Diagnoses Acute pain of right shoulder Procedures XR SHOULDER GENERAL 3V OR MORE AP/TRUE AP/OTHER RIGHT RADEX SHOULDER COMPLETE MINIMUM 2 VIEWS David Carreon APRN.ACCOUNTING MANAGER CONTROLLER [address] [facility] [place] [address] [place] [address] Referral ID Status Reason Start Date Expiration Date V isits Requested Visits Authorized [id number] Closed Auto-Generate d Referral 06/11/2024 07/11/2025 1 1 [facility] note* GINNY Coburn: PERFORM Event Display: Patient Summary Documents Authored Date: [id number] [facility] Summary Purpose Family History No Family History [...] FoundNo Family History Records Found Advance Directives Documents on File Type Date Recorded 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 Advance Directives and Living Will [...] Documents on File Type Date Recorded 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 Advance Directives and Livin g Will 05/29/2023 8:09 AM Documents on File Type Date Recorded 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 Advance Directives and Livin g [...] Comments 08/19/2023 8:14 AM 08/19/2023 11:24 AM Date Activated Date Inactivated Comments 08/19/2023 8:14 AM 08/19/2023 11:24 AM Reason for Referral Specialty Diagnoses / Procedures Referred By Contac t Referred To Contact Nutrition Diagnoses Irritable bowel syndrome with constipation Procedures CONSULT TO NUTRITION THERAPY MEDICAL NUTRITION ASSMT&IVNTJ INDIV EACH [address] RI Lucy Conte MD [address] [place] [address] Referral ID Status Reason Start Date Expiration Date Visits Requested Visits Authorized [id number] Authorized PCP Requested Referral 09/02/2024 09/02/2025 1 4 Specialty Diagnoses / Procedures Referred By Contac t Referred To Contact [facility] Diagnoses Irritable bowel syndrome with constipation Procedures [facility] ANORECTAL MANOMETRY ANORECTAL MANOMETRY Lucy Conte MD [address] [place] [address] [facility] [place] [address] [place] [address] Referral ID Status Reason Start Date Expiration Date Visits Requested Visits Authorized [id number] New Request Auto-Generat ed Referral 09/02/2024 09/02/2025 1 1 Specialty Diagnoses / Procedures Referred By Contac t Referred To Contact Sleep Medicine Diagnoses Sleep disorder Procedures Polysomnography Stacy Mccabe, FREELANCE WRITER - ACCOUNTING MANAGER CONTROLLER [address] [place] [address] [facility] [address] [place] [address] Referral ID Status Reason Start Date Expiration Date V isits Requested Visits Authorized [id number] Pending Review 08/29/2023 02/25/2024 1 1 Specialty Diagnoses / Procedures Referred By Contac t Referred To Contact Cardiology Diagnoses Shortness of breath PVC (premature ventricular contraction) Procedures Transthoracic echocardiogram (TTE) complete with contrast, bubble, strain, and 3D PRN AK ECHO TTHRC R-T 2D W/WOM-MODE COMPL SPEC&COLR D AK TTE W OR WO FOL WCON,DOPPLER Mariella Hutchinson PA-C [address] [place] [address] Referral ID Status Reason Start Date Expiration Date V isits Requested Visits Authorized [id number] Pending Review 08/14/2023 02/10/2024 1 1 Specialty Diagnoses / Procedures Referred By Contac t Referred To Contact Cardiology Diagnoses Shortness of breath PVC (premature ventricular contraction) Procedures Cardiac holter monitor (24 hours) Mariella Hutchinson PA-C [address] [place] [address] Referral ID Status Reason Start Date Expiration Date V isits Requested Visits Authorized [id number] Pending Review 08/14/2023 02/10/2024 1 1 Specialty Diagnoses / Procedures Referred By Contac t Referred To Contact Belgica Strange MD [facility] Kaylah Wick [address] [address] Referral ID Status Reason Start Date Expiration Date Visits Re quested Visits Authorized [id number] Closed 1 1 Additional Source Comments INFORMATION SOURCE (unrecogn ized section and content) DATE CREATED AUTHOR 05/22/2018 [facility] DATE CREATED AUTHOR AUTHOR'S ORGANIZ ATION 05/27/2018 [facility] DATE CREATED AUTHOR AUTHOR'S ORGANIZ ATION 05/28/2018 [facility] DATE CREATED AUTHOR AUTHOR'S ORGANIZ ATION 03/30/2021 [facility] DATE CREATED AUTHOR AUTHOR'S ORGANIZ ATION 09/28/2023 [facility] DATE CREATED AUTHOR AUTHOR'S ORGANIZ ATION 10/06/2023 [facility] DATE CREATED AUTHOR AUTHOR'S ORGANIZ ATION 06/27/2024 [facility] DATE CREATED AUTHOR AUTHOR'S ORGANIZ ATION 09/10/2025 [facility] DATE CREATED AUTHOR AUTHOR'S ORGANIZ ATION 10/01/2025 [facility] DATE CREATED AUTHOR AUTHOR'S ORGANIZ ATION 10/08/2025 [facility] DATE CREATED AUTHOR AUTHOR'S ORGANIZ ATION 10/09/2025 [facility] DATE CREATED AUTHOR AUTHOR'S ORGANIZ ATION 10/09/2025 [facility] Scheduled Active and Recently Administ ered Medications (unrecognized section and content) Medication Order 02/24/2022 02/25/2022 02/26/2022 ARIPiprazole (ABILIFY) tablet 5 mg 5 mg, Oral, Daily, First dose on Sat02/23/22 at 2000 0817 (Given - Provider: Cinthya Carbajal RN) 08 (Given - Provider: Cinthya Carbajal, DEZ) 08 (Given - Provider: Deyanira Andres, DEZ) FLUoxetine (PROZAC) capsule 20 mg 20 mg, Oral, Daily, First dose on Sat02/24/22 at 0900 0817 (Given - Provider: Cinthya Carbajal RN) 08 (Given - Provider: Cinthya Carbajal, DEZ) 08 (Given - Provider: Deyanira Andres, DEZ) lamoTRIgine (LAMICTAL) tablet 100 mg 100 mg, Oral, Daily, First dose (after last modification) on Sat02/23/22 at 2000 0817 (Given - Provider: Cinthya Carbajal, RN) 0805 (Given - Provider: Cinthya Carbajal, RN) 0802 (Given - Provider: Deyanira Andres, RN) vitamin with Ca-Iron-FA tablet 1 tablet 1 tablet, Oral, Daily, First dose on Sat02/23/22 at 1800 0817 (Given - Provider: Cinthya Carbajal RN) 0805 (Given - Provider: Cinthya Carbajal RN) 08 (Given - Provider: Deyanira Andres, RN) PRN Medication Order 02/24/2022 02/25/2022 02/26/2022 albuterol [...] at 1707 2218 (Given - Provider: Ling Srivastava RN) haloperidoL (HALDOL) tablet 5 mg(Linked Group [...] 1703 0817 (Given - Provider: Cinthya Carbajal, RN)1531 (Given - Provider: Ling Srivastava RN)2218 (Given - Provider: Ling Srivastava RN) 1302 (Given - Provider: Deyanira Andres RN) ibuprofen (ADVIL,MOTRIN) tablet 600 mg 600 mg, Oral, Every 6 hours PRN, mild pain, Starting on Sat02/23/22 at 1703, Give with Food Do Not Crush or Chew if administering orally due to bitter taste. May be crushed if given via tube. 1035 (Given - Provider: Cinthya Carbajal, DEZ)2218 (Given - Provider: Ling Srivastava RN) 0542 (Given - Provider: Sobia Apodaca [...] vaginitis 0811 (Given - Provider: Sandy Ware RN)2029 (Given - Provider: Irma Mckenzie RN) 0923 (Given - Provider: Yaron Hodge LPN)211 (Given - Provider: Suzan Eduardo RN) 0921 (Given - Provider: Clemencia Santizo RN) lithium capsule 300 mg 300 mg, Oral, 3 times daily with meals, First dose on Sat12/21/22 at 0800 0811 (Given - Provider: Sandy Ware RN)1143 (Given - Provider: Sandy Ware RN)1636 (Given - Provider: Sandy Ware RN) 0848 (Given - Provider: Yaron Hodge LPN)1127 (Given - Provider: Yaron Hodge LPN)1711 (Given - Provider: Yaron Hodge LPN) 0921 (Given - Provider: Clemencia Santizo RN)1245 (Given - Provider: Clemencia Santizo RN) paliperidone (INVEGA) 24 hr tablet 6 mg 6 mg, Oral, Every morning, First dose (after last modification) on Sat12/22/22 at 0900, DO NOT CRUSH OR CHEW. 0811 (Given - Provider: Sandy Ware RN) 0923 (Given - Provider: Yaron Hodge LPN) 0934 (Given - Provider: Clemencia Santizo RN) PRN Medication Order 12/22/2022 12/23/2022 12/24/2022 aluminum-magnesium hydroxide-simethicone (MAALOX PLUS) 200-200-20 mg/5 mL suspension 30 mL 30 mL, Oral, Every 4 hours PRN, indigestion, Starting on Nelia 12/20/22 at 2000 benztropine (COGENTIN) injection 2 mg 2 mg, Intramuscular, Once as needed, acute dystonia, Starting on Sat12/20/22 at 2000, For 1 dose, [] and [...] 2000 1019 (Given - Provider: Sandy Ware RN)2031 (Given - Provider: Irma Mckenzie RN) ibuprofen (ADVIL,MOTRIN) tablet 600 mg [...] infusion 50 mL/hr, IntraVENous, Continuous, Starting on 08/19/23 at 0815, Preprocedure 0835 (New Bag - Prov ider: Vasile Lee CRNA)0845 (Continued by Anesthesia - Provider: Vasile Lee CRNA)0853 (Stopped - Provider: Vasile Lee CRNA) Scheduled Medication Order 09/18/2023 09/19/2023 09/20/2023 cloNIDine HCL (CATAPRES) tablet 0.1 mg 0.1 mg, Oral, At bedtime, First dose on Nelia 09/19/23 at 2100 2009 (Given - Provider: Sobia Apodaca RN - Comment: as ordered) lamoTRIgine (LAMICTAL) tablet 25 mg 25 mg, Oral, Daily, First dose on Sat09/20/23 at 0900 0826 (Given - Provider: Shilpa Marquez LPN) lithium capsule 450 mg (CANCELED) 450 mg, Oral, 2 times daily with meals, First dose on Sat09/17/23 at 1800 0907 (Given - Provider: Clary Wynn RN - Comment: Waiting for [place] levels to come back) lithium capsule 600 mg 600 mg, Oral, 2 times daily with meals, First dose (after last modification) on Sat09/18/23 at 1700 1655 (Given - Provider: Clary Wynn RN) 08 (Given - Provider: Yaron Hodge LPN)165 (Given - Provider: Yaron Hodge LPN) 08 (Given - Provider: Shilpa Marquez LPN) lurasidone (LATUDA) tablet 40 mg (CANCELED) 40 mg, Oral, Daily with dinner, First dose on Sat09/18/23 at 1700, Take with food. Administer with a meal containing at least 350 calories. 1654 (Given - Provider: Clary Wynn RN) 165 (Given - Provider: Yaron Hodge LPN) lurasidone (LATUDA) tablet 60 mg 60 mg, Oral, Daily with dinner, First dose (after last modification) on Sat09/20/23 at 1700, Take with food. Administer with a meal containing at least 350 calories. oejzqbjs-hfje-CD-calcium -mins 9 mg iron-400 mcg tablet 1 tablet 1 tablet, Oral, Daily, First dose on Sat09/18/23 at 1230 1224 (Given - Provider: Clary Wynn RN) 08 (Given - Provider: Yaron Hodge LPN) 08 (Given - Provider: Shilpa Marquez LPN) propranoloL (INDERAL) tablet 20 mg 20 mg, Oral, 2 times daily, First dose on Sat09/18/23 at 1530 1655 (Given - Provider: Clary Wynn RN) 08 (Given - Provider: Yaron Hodge LPN)2009 (Given - Provider: Sobia Apodaca RN - Comment: as ordered) 08 (Given - Provider: Shilpa Marquez LPN) topiramate [...] Clary Wynn RN) 08 (Given - Provider: Yaron Hodge LPN) 08 (Given - Provider: Shilpa Marquez LPN) PRN Medication Order 09/18/2023 09/19/2023 09/20/2023 acetaminophen (TYLENOL) tablet 650 mg 650 mg, Oral, Every 4 hours PRN, mild pain, Starting on Sat09/17/23 at 1648 1700 (Given - Provider: Yaron Hodge LPN - Comment: Headache) albuterol inhaler [...] at 1646 0907 (Given - Provider: Clary Wynn RN) 0131 (Given - Provider: Sobia Apodaca RN - Comment: as requested)1053 (Given - Provider: Yaron Hodge LPN)1911 (Given - Provider: Indira Dumont [...] FIRST LINE agent for agitation, Starting on 09/17/23 at 1648
If oral route is available, [...] Hopkins RN - Comment: given to Attending) tetracaine (Altacaine) 0.5 % ophthalmic solution 1-2 drop (COMPLETED) 1-2 drop, Both Eyes, Once, On 03/20/25 at 1335, For 1 dose 1335 (Given - Provid er: Arslan Hopkins RN - Comment: given to Attending) Scheduled Medication Order 10/03/2025 10/04/2025 10/05/2025 dexAMETHasone (PF) (Decadron) injection 10 mg 10 mg, IntraVENous, Once, On 10/05/25 at 1005, For 1 dose 1005 (Canceled Entry - Provider: Automatic Discharge Provider - Comment: Automatically canceled at discontinue of medication order) diphenhydrAMINE (BENADryl) injection 25 mg 25 mg, IntraVENous, Once, On Sat10/05/25 at 1005, For 1 dose 1005 (Canceled Entry - Provider: Automatic Discharge Provider - Comment: Automatically canceled at discontinue of medication order) metoclopramide (Reglan) injection 10 mg 10 mg, IntraVENous, Once, On Sat10/05/25 at 1005, For 1 dose 1005 (Canceled Entry - Provider: Automatic Discharge Provider - Comment: Automatically canceled at discontinue of medication order) sodium chloride 0.9 % bolus 1,000 mL 1,000 mL, IntraVENous, at 1,000 mL/hr, Administer over 1 Hours, Once, On Sat10/05/25 at 1005, For 1 dose 1005 (Canceled Entry - Provider: Automatic Discharge Provider - Comment: Automatically canceled at discontinue of medication order) Scheduled Medication Order 10/07/2025 10/08/2025 10/09/2025 cloNIDine (Catapres) tablet 0.1 mg (COMPLETED) 0.1 mg, Oral, Once, On Sat10/08/25 at 191, For 1 dose 1924 (Given - Provider: Krystal Fisher RN) haloperidol lactate (Haldol) injection 5 mg (COMPLETED) 5 mg, IntraMUSCular, Once, On Sat10/08/25 at 2244, For 1 dose, IM route of administration preferred. Because of the risk of TdP and QT prolongation, ECG monitoring is recommended if haloperidol is given IV 2251 (Given - Provider: Krystal Fisher RN) lamoTRIgine (LaMICtal) tablet 100 mg (COMPLETED) 100 mg, Oral, Once, On Sat10/08/25 at 191, For 1 dose 1924 (Given - Provider: Krystal Fisher RN) midazolam (Versed) injection 2 mg (COMPLETED) 2 mg, IntraMUSCular, Once, On Sat10/08/25 at 2244, For 1 dose 2251 (Given - Provider: Krystal Fisher RN) QUEtiapine (SEROquel) tablet 50 mg (COMPLETED) 50 mg, Oral, Once, On Sat10/08/25 at 1914, For 1 dose 1924 (Given - Provider: Krystal Fisher RN) Care Team (unrecognized sect ion and content) School Library Media Program Director Relationship Specialty Start Date End Date No, Physician [facility] PCP - General 04/05/22 School Library Media Program Director Relationship Specialty Start Date End Date No, Physician [facility] PCP - General 04/05/22 [employer] Library Media Program Director Relationship Specialty Start Date End Date No, Physician [facility] PCP - General 04/05/22 School Library Media Program Director Relationship Specialty Start Date End Date No, Physician [facility] PCP - General 04/05/22 School Library Media Program Director Relationship Specialty Start Date End Date No, Physician [facility] PCP - General 04/05/22 School Library Media Program Director Relationship Specialty Start Date End Date No, Physician [facility] PCP - General 04/05/22 School Library Media Program Director Relationship Specialty Start Date End Date No, Physician [facility] PCP - General 04/05/22 [employer] Library [employer] Program Director Relationship Specialty Start Date End Date Debra Smith, FREELANCE WRITER.ACCOUNTING MANAGER CONTROLLER [address] [facility] [place] [address] PCP - General Family Medicine 09/19/22 [employer] Library [employer] Program Director Relationship Specialty Start Date End Date No, Physician [facility] PCP - General 04/05/22 School Library Media Program Director Relationship Specialty Start Date End Date Magda Kelly [address] [place] [id number] PCP - General 04/17/23 Ciaran Fritz MD [address] [place], [place] [id number] Surgeon General Surgery 04/25/23 [employer] Library [employer] Program Director Relationship Specialty Start Date End Date Magda Kelly [address] [place] [phone] PCP - General 04/17/23 Ciaran Fritz MD [address] [place], [place] [id number] Surgeon General Surgery 04/25/23 [employer] Library [employer] Program Director Relationship Specialty Start Date End Date Magda Kelly [address] [place] [phone] PCP - General 04/17/23 Ciaran Fritz MD [address] [place], [place] [id number] Surgeon General Surgery 04/25/23 [employer] Director Relationship Specialty Start Date End Date Magda Kelly [address] [place] [phone] PCP - General 04/17/23 Ciaran Fritz MD [address] [place], [place] [id number] Surgeon General Surgery 04/25/23 [employer] Program Director Relationship Specialty Start Date End Date Magda Kelly [address] [place] [phone] PCP - General 04/17/23 Ciaran Fritz MD [address] [place] [address] Surgeon General Surgery 04/25/23 [employer] Program Director Relationship Specialty Start Date End Date Magda Kelly [address] [place] [phone] PCP - General 04/17/23 Ciaran Fritz MD [address] [place] [address] Surgeon General Surgery 04/25/23 [employer] Program Director Relationship Specialty Start Date End Date Magda Kelly [facility] [place] [phone] PCP - General 04/17/23 Ciaran Fritz MD [address] [place], [place] [id number] Surgeon General Surgery 04/25/23 [employer] Program Director Relationship Specialty Start Date End Date Magda Kelly [address] [place] [phone] PCP - General 04/17/23 Ciaran Fritz MD [address] [place], [place] [id number] Surgeon General Surgery 04/25/23 [employer] Program Director Relationship Specialty Start Date End Date No, Physician [facility] PCP - General 04/05/22 [employer] Program Director Relationship Specialty Start Date End Date No, Physician [facility] PCP - General 04/05/22 [employer] Program Director Relationship Specialty Start Date End Date Magda Kelly [address] [place] [phone] PCP - General 04/17/23 Ciaran Fritz MD [address] [facility] [address] [place] [address] Surgeon General Surgery 04/25/23 [employer] Program Director Relationship Specialty Start Date End Date Magda Kelly [address] [place] [phone] PCP - General 04/17/23 Ciaran Fritz MD [address] [place] [address] Surgeon General Surgery 04/25/23 [employer] Program Director Relationship Specialty Start Date End Date Debra Smith APRN.CNP [address] [place] [address] [place] [address] PCP - General Family Medicine 09/19/22 [employer] Program Director Relationship Specialty Start Date End Date No, Physician [facility] PCP - General 04/05/22 [employer] Program Director Relationship Specialty Start Date End Date No, Physician [facility] PCP - General 04/05/22 [employer] Program Director Relationship Specialty Start Date End Date Magda Kelly [address] [place] [phone] PCP - General 04/17/23 Ciaran Fritz MD [address] [place], [place] [id number] Surgeon General Surgery 04/25/23 [employer] Program Director Relationship Specialty Start Date End Date Magda Kelly [address] [place] [phone] PCP - General 04/17/23 Ciaran Fritz MD [address] [place], [place] [id number] Surgeon General Surgery 04/25/23 [employer] Program Director Relationship Specialty Start Date End Date Magda Kelly [address] [place] [phone] PCP - General 04/17/23 Ciaran Fritz MD [address] [place] [address] Surgeon General Surgery 04/25/23 [employer] Program Director Relationship Specialty Start Date End Date RobinMagda [address] [place] [address] PCP - General 04/17/23 Ciaran Fritz MD [address] [place], [place] [id number] Surgeon General Surgery 04/25/23 [employer] Program Director Relationship Specialty Start Date End Date RobinMagda [address] [place] [phone] PCP - General 04/17/23 Ciaran Fritz MD [address] [place], [place] [id number] Surgeon General Surgery 04/25/23 [employer] Program Director Relationship Specialty Start Date End Date Robin Magda [address] [place] [phone] PCP - General 04/17/23 Ciaran Fritz MD [address] [place], [place] [id number] Surgeon General Surgery 04/25/23 [employer] Program Director Relationship Specialty Start Date End Date Byron Kellyssica [facility] [place] [phone] PCP - General 04/17/23 Ciaran Fritz MD [address] [place], [place] [id number] Surgeon General Surgery 04/25/23 [employer] Program Director Relationship Specialty Start Date End Date Robin Magda [address] [place] [phone] PCP - General 04/17/23 Ciaran Fritz MD [address] [place] [address] Surgeon General Surgery 04/25/23 [employer] Program Director Relationship Specialty Start Date End Date Robin Magda [address] [place] [phone] PCP - General 04/17/23 Ciaran Fritz MD [address] [place], [place] [id number] Surgeon General Surgery 04/25/23 [employer] Program Director Relationship Specialty Start Date End Date Magda Kelly [address] [place] [phone] PCP - General 04/17/23 Ciaran Fritz MD [address] [facility] [address] [place] [address] Surgeon General Surgery 04/25/23 [employer] Program Director Relationship Specialty Start Date End Date , [facility] PCP - General 04/05/22 [employer] Program Director Relationship Specialty Start Date End Date Magda Kelly [address] [place] [phone] PCP - General 04/17/23 Ciaran Fritz MD [address] [place] [address] [place] [id number] Surgeon General Surgery 04/25/23 [employer] Program Director Relationship Specialty Start Date End Date Magda Kelly [address] [place] [phone] PCP - General 04/17/23 Ciaran Fritz MD [address] [place] [address] [address] [place] [address] Surgeon General Surgery 04/25/23 [employer] Program Director Relationship Specialty Start Date End Date Magda Kelly [address] [place] [phone] PCP - General 04/17/23 Ciaran Fritz MD [address] [place], [place] [id number] Surgeon General Surgery 04/25/23 [employer] Program Director Relationship Specialty Start Date End Date Magda Kelly [address] [place] [address] PCP - General 04/17/23 Ciaran Fritz MD [address] [place] [address] [address] [place], [place] [id number] Surgeon General Surgery 04/25/23 [employer] Program Director Relationship Specialty Start Date End Date Magda Kelly [address] [place] [phone] PCP - General 04/17/23 Ciaran Fritz MD [address] [place] [address] [address] [place], [place] [id number] Surgeon General Surgery 04/25/23 Reason for Visit [...] Expiration Date Visits Re quested Visits Authorized [id number] 1 1 Reason Comments Headache Pt reported neck, th roat pain x1 day. Reason Comments Surgical Consult NEW Specialty Diagnoses / Procedures Referred By Contac t Referred To Contact Bariatrics Diagnoses Morbid (severe) obesity due to excess calories (HCC) Procedures Eval & treat [facility] [address] [place] [address] Referral ID Status Reason Start Date Expiration Date V isits Requested Visits Authorized [id number] Pending Review 04/17/2023 10/14/2023 1 1 Reason [...] Clearance Specialty Diagnoses / Procedures Referred By Zenon t Referred To Contact Cardiology Diagnoses Prediabetes Morbid obesity with BMI of 40.0-44.9, adult (HCC) Procedures AK OFFICE/OUTPATIENT NEW HIGH MDM 60-74 MINUTES Jeremy Helton, FREELANCE WRITER - ACCOUNTING MANAGER CONTROLLER [address] [facility] [place] [address] [facility] Card [address] [place] [address] Referral ID Status Reason Start Date Expiration Date Visits Requested Visits Authorized [id number] Pending Review Specialty Services Required 05/20/2023 05/19/2024 1 1 Reason Onset Date Comments OTHER 08/15/2023 Specialty Diagnoses / Procedures [facility] Referred To Contact Diagnoses Gastro-esophageal reflux disease without esophagitis Gastro-esophageal reflux disease without esophagitis [K21.9] Procedures AK EGD TRANSORAL BIOPSY SINGLE/MULTIPLE EGD WITH BIOPSY Ciaran Fritz MD [address] [facility] [facility] [address] [place] [address] [facility] [address] [facility] [address] [place] [address] Referral ID Status Reason Start Date Expiration Date Visits Re quested Visits Authorized [id number] 1 1 Reason Onset Date Comments Abdominal Pain 08/20/2023 Specialty Diagnoses / Procedures Referred By Zenon t Referred To Contact Cardiology Diagnoses Shortness of breath PVC (premature ventricular contraction) Procedures Cardiac holter monitor (24 hours) Mariella Hutchinson PA-C [address] [place] [address] Referral ID Status Reason Start Date Expiration Date Visits Re quested Visits Authorized [id number] Closed 08/14/2023 02/10/2024 1 1 Reason Onset Date Comments Pageout 08/20/2023 Reason Comments New Patient Specialty Diagnoses / Procedures Referred By Zenon t Referred To Contact Pulmonary Disease / Pulmonology Diagnoses Prediabetes Morbid obesity with BMI of 40.0-44.9, adult (HCC) Procedures AK OFFICE/OUTPATIENT NEW HIGH MDM 60-74 MINUTES Jeremy Helton, FREELANCE WRITER - ACCOUNTING MANAGER CONTROLLER [address] [place] [address] [facility] [address] [place] [address] Referral ID Status Reason Start Date Expiration Date Visits Requested Visits Authorized [id number] Pending Review Specialty Services Required 05/20/2023 05/19/2024 1 1 Reason Comments Weight Loss D/E final 4 of 3 Specialty Diagnoses / Procedures Referred By Zenon t Referred To Contact Diagnoses Bipolar disorder, unspecified Schizoaffective disorder, bipolar type ([facility]) Referral ID Status Reason Start Date Expiration Date Visits Re quested Visits Authorized [id number] 1 1 Reason Onset Date Comments Abnormal Lab 08/21/2023 + H pylori Specialty Diagnoses / Procedures Referred By Zenon t Referred To Contact Cardiology Diagnoses Shortness of breath PVC (premature ventricular contraction) Procedures Transthoracic echocardiogram (TTE) complete with contrast, bubble, strain, and 3D PRN AK ECHO TTHRC R-T 2D W/WOM-MODE COMPL SPEC&COLR D AK TTE W OR WO FOL WCON,DOPPLER Mariella Hutchinson PA-C [address] [place] [address] Referral ID Status Reason Start Date Expiration Date Visits Re quested Visits Authorized [id number] Closed 08/14/2023 02/10/2024 1 1 Reason Onset Date Comments Pelvic Pain 05/11/2024 Appointment Request 05/11/2024 Reason Comments Shoulder Injury Right shoulder down arm pain and tingling x1 day Reason Comments Abdominal Pain Constipation Reason Comments Eye Problem Contact stuck Reason Comments Cough x couple weeks, sinu s pressure x today, back pain saw chiropractor Saturday-spasms Reason Onset Date Comments Results 06/29/2025 Reason Comments Chest Pain Shortness of Breath Reason Comments Mental Health Problem Source Comments (unrecognize d section and content) In the event this informatio n is protected by the Federal Confidentiality of Alcohol and Drug Abuse Patient Records regulations: The Federal rules restrict any use of the information to criminally investigate or prosecute any alcohol or drug abuse patient.[facility] Center[facility] the event this information is protected by the Federal Confidentiality of Alcohol and Drug Abuse Patient Records regulations: The Federal rules restrict any use of the information to criminally investigate or prosecute any alcohol or drug abuse patient.[facility] Center[facility] the event this information is protected by the Federal Confidentiality of Alcohol and Drug Abuse Patient Records regulations: The Federal rules restrict any use of the information to criminally investigate or prosecute any alcohol or drug abuse patient.[facility] Center[facility] the event this information is protected by the Federal Confidentiality of Alcohol and Drug Abuse Patient Records regulations: The Federal rules restrict any use of the information to criminally investigate or prosecute any alcohol or drug abuse patient.[facility] CenterIn the event this information is protected by the Federal Confidentiality of Alcohol and Drug Abuse Patient Records regulations: The Federal rules restrict any use of the information to criminally investigate or prosecute any alcohol or drug abuse patient.[facility] CenterIn the event this information is protected by the Federal Confidentiality of Alcohol and Drug Abuse Patient Records regulations: The Federal rules restrict any use of the information to criminally investigate or prosecute any alcohol or drug abuse patient.[facility] CenterIn the event this information is protected by the Federal Confidentiality of Alcohol and Drug Abuse Patient Records regulations: The Federal rules restrict any use of the information to criminally investigate or prosecute any alcohol or drug abuse patient.[facility] CenterIn the event this information is protected by the Federal Confidentiality of Alcohol and Drug Abuse Patient Records regulations: The Federal rules restrict any use of the information to criminally investigate or prosecute any alcohol or drug abuse patient.[facility] CenterIn the event this information is protected by the Federal Confidentiality of Alcohol and Drug Abuse Patient Records regulations: The Federal rules restrict any use of the information to criminally investigate or prosecute any alcohol or drug abuse patient.[facility] FOR RECORDS PERTAINING TO PATIENTS WHO ARE [...] BE BASED ON THE PRIMARY CLINICAL RECORDS. [facility]. provides no warranty or guarantee of the accuracy or completeness of information in this document.
[2025-10-19 01:51] LABS: Hematocrit 40.8 % (37-47); Hemoglobin 13.2 g/dL (12.0-15.0); Immature Granulocytes Count 0.040 X10^3/uL (0.0-0.0); Mean Corp Hgb Conc 32.4 g/dL (32-36); Mean Corpuscular Volume 87.9 fL (81-99); Mean Platelet Vol. 9.5 fl (6.2-12.0); NRBC Flagged by Analyzer 0 % (0-5); Platelet Count 459 K/mm3 (150-450); RBC Distribution Width CV 13.3 % (11.6-14.6); RBC Distribution Width SD 43.0 fl (35.1-43.9); Red Blood Count 4.64 M/mm3 (4.2-5.4); White Blood Count 12.1 K/mm3 (4.4-11.0)
[2025-10-19] MEDS: hydrOXYzine PAM 25 MG Capsule 50 MG PO (01:57)
[2025-10-19 02:00] VITALS: BP 133/72; PULSE 81; RESP 18; O2SAT 98
[2025-10-19 02:06] LABS: Internal QC Validated? YES +Cl - CLEAR BKGD; Pregnancy, Serum, hCG Quali. NEGATIVE Negative
[2025-10-19 02:07] LABS: Record Kit Lot#, Serum Preg. 0000980607
[2025-10-19 02:18] LABS: Barbiturate Urine NEGATIVE (< 200 ng/mL); Benzodiazepine Urine NEGATIVE (< 200 ng/mL); PCP Urine NEGATIVE (< 25 ng/mL); THC Urine PRESUMPTIVE POSITIVE (< 50 ng/mL)
[2025-10-19 02:19] LABS: AST(SGOT) 22 U/L (<=31); Alanine Aminotransfer ALT/SGPT 34 U/L (<=34); Albumin, Serum 5.1 g/dL (3.5-5.0); Alcohol, Blood (Medical)-Serum < 10.1 mg/dL (<=10.0); Alkaline Phosphatase 79 U/L (35-104); Anion Gap 14 (5-15); BUN 8 mg/dL (4-19); BUN/Creat Ratio 10.3 RATIO (10-20); Calcium,Total 9.8 mg/dL (7.6-11.0); Carbon Dioxide 22.4 mmol/L (21.0-32.0); Chloride 102 mmol/L (98-108); Estimated Creatinine Clearance 120.54 ml/min (50-250); Globulin 3.5 g/dL (2.2-4.2); Glucose 100 mg/dL (70-99); Potassium 3.3 mmol/L (3.3-5.1); Troponin T High Sensitivity < 6 ng/L (<=14)
--- NOTE | 2025-10-19 04:45 | ED.RN ---
Pt yelling at staff and screaming at security. Pt pushing security. Pt hitting code button and staff assist button. Pt demanding call light and the police to be called. PD called for assistance to deescalate pt. IM Geodon 20mg x1 ordered per Dr. Santana.
[2025-10-19] MEDS: Ziprasidone IM 20 MG/ML VIAL IM (04:48)
--- NOTE | 2025-10-19 07:41 | ED.RN ---
Attempted to call report to Luis Milian @ [phone]. Attempted numerous extensions after talking to someone in intake was transferred to line which rang without pickup
--- NOTE | 2025-10-19 08:03 | ED.RN ---
Report called to [facility] at [facility]
[2025-10-19 08:45] VITALS: BP 109/80; PULSE 105; RESP 17; TEMP 37; O2SAT 100
== END 2025-10-19 09:12 ==
PROVIDERS: Emergency Provider Emergency Medicine; PCP Nurse Practitioner Family; Visit Provider Emergency Medicine
DX: R45.851 Suicidal ideations (principal); F25.0 Schizoaffective disorder, bipolar type; E11.9 Type 2 diabetes mellitus without complications; F41.9 Anxiety disorder, unspecified; R11.0 Nausea; R07.89 Other chest pain; R45.1 Restlessness and agitation; J45.909 Unspecified asthma, uncomplicated; R06.02 Shortness of breath
CPT/HCPCS: 36415; 80053; 80307; 82077; 84484; 84703; 85025; 93005; 96372; 99285; A4216

== ENCOUNTER → 2025-10-26 | Outpatient (CLI) | payer OTHER, SELFPAY ==
--- NOTE | 2025-10-26 10:33 | STE_ITS ---
Reason For Study Reason For Study: Chest Pain Stress Results Protocol: Trever Protocol Maximum Predicted HR: 196 bpm Target HR: 167 bpm % Maximum Predicted HR: 90 % DurationHeart Rate Stage (mm:ss) (bpm) BP Comment Baseline 82 130/86Patient denies chest pain Stage 1 3:00 137 146/80Patient denies chest pain or dyspnea. Stage 2 3:00 162 170/84Mild dyspnea. Denies chest pain Stage 3 3:00 176 174/96Mild dyspnea and midsternal chest tightness. Recovery 88 128/88Patient denies chest pain or dyspnea. Stress Duration: 9:00 mm:ss Maximum Stress HR: 176 bpm Baseline Echocardiogram Findings Stress Echo Wall motion Data Resting WM Intermediate WM Stress WM ECHO/Stress Test Echo w/o Contrast Interpretation Summary Exercise stress echo. 25-year-old lady with a history of chest pain. Resting EKG demonstrates normal sinus rhythm with a rate of 82 bpm resting bloo d pressure is 130/86 mmHg. The patient exercised for total duration of 9 minutes. The maximum heart rate attained was in of 79 bpm which was 91% of maximum predicted heart rate the maximum workload was 10.1 metabolic equivalents. At re st there were no ST or T wave changes noted suggest ischemia peak exercise upsloping ST changes were noted with proba darian the criteria for ischemia. Patient experienced mild dyspnea but no chest pain. The peak blood pressure was 174/96 mmHg which was a normal blood pressure response to exercise. Stress echo: Resting echocardiogram demonstrates preserved ejection fraction of 60%. No wall motion abnormalities were noted. The patient exercised according to Trever protocol and at peak exercise there was th ickening of all mckeon with no wall motion abnormalities noted. All segments were noted to contract adequately. No new wal l motion abnormalities were noted the peak ejection fraction was 75%. Conclusion: Stress echocardiogram with no EKG criteria for ischemia. No wall motion abnorma lities noted to suggest ischemia. Ordering Physician: León More Referring Physician: Scott Hart M.D. Performed By: Awa Alegre and Student
== END | disposition home or self-care (01) ==
LOC: CVS 10:28
PROVIDERS: PCP Nurse Practitioner Family; Referring Provider Physician Assistant; Visit Provider Physician Assistant
DX: R07.9 Chest pain, unspecified (principal); R41.89 Other symptoms and signs involving cognitive functions and awareness
CPT/HCPCS: 93017; 93350